=== PATIENT | female | born 1965 | race Caucasian/White ===

== ENCOUNTER → 2017-06-14 17:40 | Outpatient (CLI) | payer OTHER, SELFPAY ==
[2017-06-14 20:09] LABS: M R Staph aureus DNA By PCR Negative (Negative); Probe Check PASS; Specimen Processing Control PASS; Staph aureus DNA By PCR POSITIVE (Negative)
== END ==
PROVIDERS: Family Provider Family Medicine; PCP Family Medicine; Visit Provider Podiatrist
DX: L03.90 Cellulitis, unspecified (principal); L97.512 Non-pressure chronic ulcer of other part of right foot with fat layer exposed
CPT/HCPCS: 87640

== ENCOUNTER → 2017-08-07 22:22 | Outpatient (CLI) | payer OTHER, SELFPAY | PROVIDERS: Family Provider Family Medicine; PCP Family Medicine; Visit Provider Family Medicine | DX: G47.00 Insomnia, unspecified (principal) | CPT/HCPCS: 95810 ==

== ENCOUNTER 2018-04-25 12:15 | Outpatient (RCR) | payer OTHER, SELFPAY ==
--- NOTE | 2017-09-30 13:29 | DT_ITS ---
This patient was seen during an EMR downtime September 30, 2017 - October 07, 2017. This patient may have a combination of paper and electronic documentation or all paper documentation. All documentation is viewable within the e-chart portion of [employer] for each patient visit.
--- NOTE | 2017-12-27 13:08 | MASS.EVAL ---
Massage Therapy Evaluation: Initial Evaluation Date: 09/30/2017 SUBJECTIVE: Karolina is a 52 year old female who was referred to the [facility] for a massotherapy evaluation by Dr. Gomez with the diagnosis of Shoulder and neck pain. Karolina presents today with the symptoms of neck and shoulder pain and tension. she reports having a medical history of chronic neck pain going into her shoulders. She reports having minimal limitations during her daily activities but does suffer from stiffness. OBJECTIVE: Upon observation Ada has poor posture with his head forward and shoulders forward from the neutral position in sitting and standing. After examination and palpation I found Karolina to have very high muscle tension with tenderness and myofascial restrictions in her sub occipitals, levator scapulae, trapezius, rhomboids, scalenes, and thoracic paraspinals. Her shoulders were tight and tender in the trapezius, supra and infraspinatus muscles The first treatment consisted of a one hour massage to her upper body with myofascial release, muscle stripping, trigger point compression techniques, and cervical manual traction. ASSESSMENT: I feel that Karolina is a good candidate for massotherapy at this time. She had a favorable response to the first treatment with reduction in her muscle aches, pain and tension. She also had improvement in her cervical flexibility and right hip flexibility. PLAN: The plan of care was reviewed with the patient. The patient is to be seen on as needed basis for a total of ten sessions with the recommendation of once every four weeks for a one hour treatment. Ada Zamora LMT
--- NOTE | 2018-04-25 16:04 | MASS.DISCH ---
Massage Therapy Discharge Summary: Discharge Date: 04/25/2018 Karolina was seen for a massotherapy evaluation on 09/30/2017 with the diagnosis of shoulder pain. She was treated with seven sessions of massage therapy consisting of deep pressure soft tissue techniques, myofascial release and trigger point compression to her cervical, thoracic and lower back. Karolina responded well to the therapy by reporting decreased tension and pain throughout her head, neck, shoulders, and lower back. Her goals for therapy were met throughout the treatment sessions. At this time this patient is being discharged from our care at [facility] facility.
== END 2018-04-25 19:00 | disposition home or self-care (01) ==
LOC: MASS 12:15
PROVIDERS: Family Provider Family Medicine; PCP Family Medicine; Visit Provider Family Medicine
DX: M25.569 Pain in unspecified knee (principal)
CPT/HCPCS: 97124

== ENCOUNTER → 2018-04-28 14:30 | Outpatient (CLI) | payer OTHER, SELFPAY ==
[2018-04-27 13:51] VITALS: BMI 22.3
== END ==
PROVIDERS: Family Provider Family Medicine; PCP Family Medicine; Referring Provider Physician Assistant; Visit Provider Physician Assistant
DX: J02.9 Acute pharyngitis, unspecified (principal)
CPT/HCPCS: 87077; 87081

== ENCOUNTER → 2018-06-16 12:56 | Outpatient (CLI) | payer OTHER, SELFPAY ==
[2018-04-27 13:51] VITALS: BMI 22.3
--- NOTE | 2018-06-16 13:00 | BI_ITS ---
MAMMOGRAPHY - BILATERAL SCREENING REASON FOR EXAM: Female, 53 years old. Routine annual screening examination. PERTINENT HISTORY: Aunt with breast cancer. TECHNIQUE: Digital bilateral breast krystle (3D mammographic acquisition) in the CC and MLO projections. 2-D mediolateral oblique (MLO) and craniocaudad (CC) views of both breasts were obtained. CAD: Full Field Digital Mammography with Computer Added Detection was performed. COMPARISON: Comparison is made with prior study dated November 11, 2017 and August 30, 2015. FINDINGS: Breast Composition: The breasts are heterogeneously dense, which may obscure small masses. There are no dominant masses or suspicious calcifications. Stable 1.1 cm calcified nodule in the deep midportion of the right breast. Stable 7 mm well-defined nodule in the retroareolar region of the left breast. Prior sonogram demonstrating this to be a cyst. No other significant abnormalities are identified. There has been no significant change since the prior study. BI/SCREENING MAMM (CAD), BILAT IMPRESSION: Stable bilateral screening mammogram. Yearly follow-up mammogram recommended. (A) ASSESSMENT CATEGORY: BIRADS Category 2: Benign. A letter regarding these results will be sent to the patient by the facility within 30 days. Approximately 10% of breast cancers are not detected by mammography. A normal mammogram should not delay biopsy of a clinically suspicious abnormality. [id number] Electronically Signed: Sony Arvizu MD at 14:30 EST , Service support ,
== END ==
PROVIDERS: Family Provider Family Medicine; PCP Family Medicine; Referring Provider Obstetrics & Gynecology; Visit Provider Obstetrics & Gynecology
DX: Z12.31 Encounter for screening mammogram for malignant neoplasm of breast (principal)
CPT/HCPCS: 77063; 77067

== ENCOUNTER → 2018-07-03 15:54 | Outpatient (CLI) | payer OTHER, SELFPAY ==
[2018-04-27 13:51] VITALS: BMI 22.3
[2018-07-03 17:53] LABS: Erythrocyte Sedimentation Rate 6 mm/hr (0-30)
[2018-07-03 17:58] LABS: CRP, High Sensitivity Cardiac 0.61 mg/L; Rheumatoid Factor < 10.0 IU/mL (<15)
[2018-07-08 11:30] LABS: ANTINUCLEAR ANTIBODIES DIRECT Negative (Negative)
== END ==
PROVIDERS: Family Provider Family Medicine; PCP Family Medicine; Referring Provider Family Medicine; Visit Provider Family Medicine
DX: M25.552 Pain in left hip (principal)
CPT/HCPCS: 36415; 85652; 86038; 86141; 86431

== ENCOUNTER → 2018-09-25 09:38 | Outpatient (CLI) | payer OTHER, SELFPAY ==
[2018-09-25 09:36] VITALS: BMI 22.3
--- NOTE | 2018-09-25 09:39 | RAD_ITS ---
STUDY: X-RAY - RIGHT HAND, ATTENTION THUMB REASON FOR EXAM: Trigger thumb. TECHNIQUE: 3 view(s) of the finger were obtained. COMPARISON: None. FINDINGS: Normal first carpometacarpal joint. Normal metacarpal. Normal metacarpophalangeal joint. Normal proximal phalanx. Normal distal phalanx. There are small marginal osteophytes without joint space narrowing of the interphalangeal joint. RAD/Finger(s) Min 2 Views IMPRESSION: Small marginal osteophytes of the interphalangeal joint. Electronically Signed: Winston Hendrickson MD at 15:48 EDT Tel , Service support ,
== END ==
PROVIDERS: Family Provider Family Medicine; PCP Family Medicine; Referring Provider Orthopaedic Surgery; Visit Provider Orthopaedic Surgery
DX: M79.644 Pain in right finger(s) (principal)
CPT/HCPCS: 73140

== ENCOUNTER 2018-10-22 09:49 | Day surgery (SDC) | payer OTHER, SELFPAY ==
[2018-09-25 09:36] VITALS: BMI 22.3
--- NOTE | 2018-09-25 10:11 | HP_ITS ---
Input H&P no changes I have re-examined the patient. There are no clinical changes since date of exam. Intake Vital Signs 09/25/18 Body Mass Index (BMI) 22.3 09/25/18 Height 5 ft 5 in 09/25/18 Weight: 137 lb 09/25/18 Body Mass Index (BMI) 22.8 Intake Visit Reasons: RIGHT HAND Chief Complaint: Sore throat Is patient in pain?: Yes Pain scale (1-10): 2 Allergies hydrocodone [From Vicodin] Adverse Reaction (Verified 04/27/18 13:52) Nausea Medications Sertraline HCl [Zoloft] 50 mg PO BID 03/30/14 [History Confirmed 04/27/18] Pitavastatin Calcium [Livalo] 2 mg PO QHS 05/15/16 [History Confirmed 04/27/18] Apixaban [Eliquis] 5 mg PO BID 07/12/16 [History Confirmed 04/27/18] Cetirizine HCl [Zyrtec] 10 mg PO DAILY PRN PRN 07/12/16 [History Confirmed 04/27/18] PFSH Medical History Anemia (Acute) Social History Smoking Status: Never smoker alcohol intake: never HPI RIGHT HAND: Surgical H&P: Yes Details: Parts of this documentation were recorded by a scribe, this documentation accurately reflects the service provided and the decisions made by me, Leigha Edward, 09/25/18 [id number]. ARYAN AHN is a 53 year old F new patient here today for right thumb trigger thumb. Patient state she has been having the pain for about 3 months. Denies numbness, tingling or other associated symptoms. States she has a constant dull ache at the base of her thumb. Has constant clicking of her thumb with movement. Has limited ROM of her thumb. Denies any x-rays of her thumb. Has had 1 steroid injection of her thumb which was not effective. Had the injection in june. Denies any PT. Does not recall any injury. ROS Const Reports system reviewed and no additional complaints, except as docu Eyes Reports system reviewed and no additional complaints, except as docu ENT Reports system reviewed and no additional complaints, except as docu Card Reports system reviewed and no additional complaints, except as docu Resp Reports system reviewed and no additional complaints, except as docu GI Reports system reviewed and no additional complaints, except as docu Musc Reports as per HPI Skin/Breast Reports system reviewed and no additional complaints, except as docu Neuro Yes system reviewed and no additional complaints, except as docu Psych Reports system reviewed and no additional complaints, except as docu Endo Reports system reviewed and no additional complaints, except as docu Fito/Lymph Reports system reviewed and no additional complaints, except as docu Aller/Immun Reports system reviewed and no additional complaints, except as docu Assessment & Plan Problems 1. Primary osteoarthritis of first carpometacarpal joint of right hand M18.11 2. Trigger finger of right thumb M65.311 Plan Obtained X-rays of patient's right thumb. Personally reviewed x-rays. There is no obvious fracture, dislocation, or lucency noted. Educated that she does have mild CMC joint OA. Educated that she does have trigger finger of her right thumb. Educated that options include injection every 3-4 months or splinting at night or surgery. Surgery would include releasing of the tendon. Reviewed the pre-operative plans with the patient. Risks and benefits of the procedure were fully explained, including but not limited to infection, neurovascular injury, continued pain, arthritis, stiffness, need for further surgery, re-injury, DVT, PE, general risks of anesthesia, and loss of limb or life. The patient understands all the risks and does wish to proceed with written consent. Educated that she will never have full ROM of her joint d/t the OA. Patient educated that the surgery is an elective surgery and is not required. Patient does wish to proceed with surgery. Patient would like her surgery ti be on October 15. Follow up 2 weeks post op or sooner if pain, swelling, numbness or associated symptoms, or concerns develop. All questions answered. Patient in agreement of plan. Orders Orders: Finger(s) Min 2 Views Today M79.644 Coding Level of Care Code Off vis,est,level 4 Diagnoses Primary osteoarthritis of first carpometacarpal joint of right hand M18.11 ??Osteoarthritis type: primary Trigger finger of right thumb M65.311 09/25/18 1034 <Electronically signed by Leigha vega DO> Date _ Leigha Edward DO
[2018-10-22] VITALS (8 sets, daily range): BP systolic 117–147; BP diastolic 73–101; PULSE 63–76; RESP 16; TEMP 36.4–36.7; O2SAT 94–100; BMI 23.6
[2018-10-22] MEDS: Cefazolin 2 GM in 0.9% Normal Saline 100 ML IV (13:45)
--- NOTE | 2018-10-22 13:51 | DCINST_ITS ---
Discharge Diet: No Restrictions - leave dressing in place, keep clean/dry and intact, if get incision dirty may change, follow up in 2 weeks for removal of sutures, call with concerns Discharge Activity: May Not Drive May shower in (days): 1 Ice area for (Minutes): 20 - Every hour while awake. Weight Bearing Status: Weight bearing as tolerated Keep extremity elevated above heart level: Operative Extremity Call your doctor if your incision/area has: Continuous Slow Oozing, Sudden Increased Bleeding, Increased Pain/ Swelling, Increased Redness, Foul Smelling Discharge Call your doctor if you observe: Fever of 101 or Higher, Coldness, Increased Pain, Numbness or Tingling, Change in Color, Calf discomfort Allergies/Adverse Reactions: Allergies hydrocodone [From Vicodin] Adverse Reaction (Verified 10/22/18 10:05) Nausea Medications to take at Discharge Sertraline HCl [Zoloft] 50 mg PO BID 03/30/14 Pitavastatin Calcium [Livalo] 2 mg PO QHS 05/15/16 Apixaban [Eliquis] 5 mg PO BID 07/12/16 Cetirizine HCl [Zyrtec] 10 mg PO DAILY PRN PRN 07/12/16 Omeprazole [Prilosec] 20 mg PO DAILY 10/15/18 Primary Care Physician: Jimbo Dash MD [Primary Care Provider] - Test Results: Test results from this visit will be discussed in further detail at your follow- up appointment, if applicable. Please Follow Up With: Leigha Edward, - [phone]
--- NOTE | 2018-10-22 13:52 | PCM.OPRPT ---
Report of Operation Date of Procedure: 10/22/18 Pre-Operative Diagnosis: right thumb trigger finger Post-Operative Diagnosis: same Surgery/Procedure Performed:: right a1 vignesh release Type of Anesthesia:: General Anesthesiologist: Danny Lake Estimated Blood Loss (mL): none Fluids Replaced: 700 cc lr Description of Procedure: Preoperative note Patient is a 53-year-old female who has been seen for a locked and quite painful right trigger thumb. Patient has failed conservative treatment. Risks benefits and alternatives surgery discussed with patient. Risks including but not limited to blood loss, blood clot, infection, neurovascular injury, failure procedure, loss of life and loss of limb. Patient is aware would like proceed with right trigger finger thumb release A1 vignesh release. Operative note Patient seen and examined preoperative holding area. Right thumb was marked. Patient is brought to the operating room and placed supine on the operating table. Sign, anesthesia, antibiotics were administered. The right arm was prepped and draped in usual sterile fashion after [place] block was initiated. All neurovascular structures were protected at all times timeout was performed. We marked out our incision at the A1 vignesh of the right thumb. We was about a centimeter centimeter and a half for length. We used a 15 blade to cut the skin tenotomies to dissect down to the level of the A1 vignesh. All neurovascular structures were protected at all times. We then released the A1 vignesh both proximally and distally we then brought the tendons out of the incision and flex and extend at the DIP of the right thumb to ensure that we had no further locking which we did not have. We then irrigated the incision with copious amounts of sterile saline. Incision was closed with interrupted 4-0 nylon stitches. Tourniquet was deflated for total working time of 10 minutes. Patient tolerated procedure well there are no complications, patient transferred to recovery room in stable condition. Postoperative note Use hand as tolerated but keep incision clean and dry Discussed with family Follow-up in 2 weeks for dressing change and suture removal Hospital pharmacy has prescriptions This note was generated with [employer] software. It may contain incorrect words, spelling, and punctuation that were not noted in checking the note before signing.
[2018-10-22] MEDS: Mupirocin Ointment 22gm Tube 1 APPLIC (14:24)
--- NOTE | 2018-10-28 17:29 | PCM.HP.BLA ---
History and Physical Date of Admission: 10/22/18 [facility] Medical Records Department [address] [place] [address] History and Physical 09/25/18 1011 MR#: [id number] Acct: [id number] Name: ARYAN AHN Rep #: [id number] : 1965 53 From: Leigha Edward DO PCP: Jimbo Dash MD Status: [facility] Location: [place] [address] Input H&P no changes I have re-examined the patient. There are no clinical changes since date of exam. Intake Vital Signs 09/25/18 Body Mass Index (BMI) 22.3 09/25/18 Height 5 ft 5 in 09/25/18 Weight: 137 lb 09/25/18 Body Mass Index (BMI) 22.8 Intake Visit Reasons: RIGHT HAND Chief Complaint: Sore throat Is patient in pain?: Yes Pain scale (1-10): 2 Allergies hydrocodone [From Vicodin] Adverse Reaction (Verified 04/27/18 13:52) Nausea Medications Sertraline HCl [Zoloft] 50 mg PO BID 03/30/14 [History Confirmed 04/27/18] Pitavastatin Calcium [Livalo] 2 mg PO QHS 05/15/16 [History Confirmed 04/27/18] Apixaban [Eliquis] 5 mg PO BID 07/12/16 [History Confirmed 04/27/18] Cetirizine HCl [Zyrtec] 10 mg PO DAILY PRN PRN 07/12/16 [History Confirmed 04/27/18] PFSH Medical History Anemia (Acute) Social History Smoking Status : Never smoker alcohol intake : never 1
== END 2018-10-22 16:20 | disposition home or self-care (01) ==
LOC: SDC 09:50 → AC 09:50
PROVIDERS: Family Provider Family Medicine; PCP Family Medicine; Referring Provider Orthopaedic Surgery; Visit Provider Orthopaedic Surgery
PROC: (CPT 26055; principal; 2018-10-22 11:00)
DX: M65.311 Trigger thumb, right thumb (principal); M18.11 Unilateral primary osteoarthritis of first carpometacarpal joint, right hand; F41.9 Anxiety disorder, unspecified; Z79.01 Long term (current) use of anticoagulants; Z79.899 Other long term (current) drug therapy; Z88.5 Allergy status to narcotic agent; Z86.718 Personal history of other venous thrombosis and embolism; Z86.2 Personal history of diseases of the blood and blood-forming organs and certain disorders involving the immune mechanism
CPT/HCPCS: 26055; J7120; J2405

== ENCOUNTER 2018-11-27 16:59 | Outpatient (RCR) | payer OTHER, SELFPAY ==
[2018-11-10 13:10] VITALS: BMI 23.6
--- NOTE | 2018-11-27 17:38 | HP.PTEVAL ---
Patient's Visit Information ARYAN AHN is a 53 year old F referred to Physical Therapy by [facility] Wong with a diagnosis of L RC impingement.. Date of Evaluation: 11/27/18 Physical Therapist: Reji Guo, [place], OCS, CSCS - Visit Plan Duration: 1x in two weeks Plan: Pt to do home GTB ext rotation and ext rotation door stretch daily and f/u in two weeks or prior if pain returns. She has no pain or dysfunction lately. - Subjective Findings: L shoulder was bothering me. Had a steroid injection mid October and has been feeling good since. It had hurt since August when she fell and tried to catch self with L arm. L shoulder hurt then with movement adn ached all the time. No other treatments. No x ray or MRI. Sleep is good now but was up alot prior. 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 This was increasing her pain with lifting charts. Is L handed. Hobbies include cleaning up after hogs and chickens and shovelling and raking. It hurt. It is currently not a problem. All dressing and ADLs are good right now. No pain since couple days after injection. - Objective Good posture adn no pain or asymmetrical tenderness today. Full c/s AROM without pain or deficit. Full B UE shoulder adn scap/UE AROM without pain except ext rotation L shoulde rin 90 abduction which is slightly tighter L at 90 ext rotation vs 120 on R. reflexes bi and tri 2/3. Sensation UE WNL to gross light touch. Strength is symmetrical and 4+/5 except L ext rotation 4/5, no pain. - sulcus. - ext rotation lag test. - HK, - impingement. Fucntionally normal today. - Goals Goal 1:: Shoulder 100% back to normal ext rotation strength adn ROM at 90 abd. Goal Time Frame: 2-4 Weeks - Rehabilitation Potential Physical Therapy Diagnosis: L RC impingement much better since injection. Rehabilitation Potential: Excellent - Anticipated Interventions Patient/Client Instruction: Educate patient on: Condition, Plan of Care For the Purpose of:: To increase ROM Therapeutic Exercise to Include: Strength training, Passive ROM For the Purpose of:: To increase ROM, To improve muscle performance and motor function Thank you for the opportunity to evaluate your patient. For Medicare and Medicare HMO plans, please review the plan of care and approve it. It will need to be FAXED BACK to us at [phone] for Medicare purposes. For Medicare only, by signing this I certify the plan of care. Please let me know if there are questions or concerns regarding this plan of care. Physician Signature: Date:
--- NOTE | 2019-02-05 15:25 | HP.PT.NRP ---
HP - Discharge Summary (1) - Patient Information ARYAN AHN was seen in my office for initial evaluation on 11/27/18. The following Plan of Care was established for this patient: Initial Duration: 1x in two weeks - Anticipated Interventions Patient/Client Instruction: Educate patient on: Condition, Plan of Care For the Purpose of:: To increase ROM Therapeutic Exercise to Include: Strength training, Passive ROM For the Purpose of:: To increase ROM, To improve muscle performance and motor function This patient was last seen in our office 11/27/18. Pertinent comments regarding their Physical therapy will appear below: Pt seen for evaluation adn instructed in HEP. She was to f/u two weeks later but neglected to schedule or attend. At this point, it has been over two months and I will discontinue due to nonattendance. At this point I will be discontinuing this patient from physical therapy. I would be happy to see this patient again in the future if found appropriate by the physician. Thank you! Reji Guo, DPT, OCS, CSCS
== END 2018-11-27 19:00 | disposition home or self-care (01) ==
LOC: PT 16:59
PROVIDERS: Family Provider Family Medicine; PCP Family Medicine; Referring Provider Physician Assistant; Visit Provider Physician Assistant
DX: M75.42 Impingement syndrome of left shoulder (principal)
CPT/HCPCS: 97161

== ENCOUNTER → 2019-01-02 15:23 | Outpatient (CLI) | payer OTHER, SELFPAY ==
[2018-12-22 14:36] VITALS: BMI 23.6
--- NOTE | 2019-01-02 15:25 | MRI_ITS ---
HISTORY:pain after fall, decreased rom x 4 mon MRI EXAMINATION OF THELeft SHOULDER COMPARISON: None TECHNIQUE: Coronal fat-suppressed proton-density fat-suppressed T2 sagittal T2 and axial fat-suppressed proton density and T2 # of images including paperwork:131 FINDINGS: Bones: There are cystic changes seen within the lesser tuberosity of the humeral head as well as the greater tuberosity. This area is subjacent to the groove. Rotator cuff: There is a full-thickness tear involving the supraspinatus tendon with retraction of the tendon to proximally the 12:00 incision. There is also grade 1 muscular tenderness injury of the supraspinatus muscle. Partial tear involving the infraspinatus muscle. This compatible with a grade 1-2 injury of the musculotendinous junction seen on coronal image 5 series 7. High-grade tear of the anterior fibers of the supraspinatus tendon. I suspect a portion of the tendon is retracted seen on axial image 24 series 5. The teres minor tendon is intact. The subscapularis tendon is intact Coracoacromial arch and Acromioclavicular joint: The acromion demonstrates Bigliani Type 2 morphology. The acromiohumeral distance is maintained. The coracoacromial ligament is intact. Is thickened at the acromion. Mild acromial clavicular arthropathy. There is fluid seen within the subacromial subdeltoid bursa. Biceps tendon: The extraarticular tendon fluid surrounds extra-articular bicipital tendon and there is abnormal signal within the tendon suggesting a partial tear. The tendon appears subluxed medially again with partial tear of the intra-articular tendon.. Glenohumeral joint and labrum: There is no significant joint effusion. The anterior and posterior bands of the inferior glenohumeral luminary intact. I do not see a labral tear. No masses are seen within the suprascapular notch or the spinoglenoid notch. The quadrilateral space is unremarkable. CONCLUSION: Full-thickness tear of the supraspinatus tendon with retraction to approximately the 12 o'clock position. No evidence of muscle atrophy. There is a high-grade tear of the infraspinatus tendon this is most marked at the inferior fibers with retraction of the portion of the fibers. There is also grade 1-2 injury at the musculotendinous junction of the infraspinatus and grade 1 injury at the musculotendinous junction of the supraspinatus Partial tear of the bicipital tendon. Medial subluxation. The intra-articular tendon is thickened and partially torn. I do not see a labral tear. Mild acromial clavicular arthropathy. There is fluid within the subacromial subdeltoid bursa. at 1904 Reported and signed by: Evette Cronin DO Electronically Signed: Evette Cronin DO at 19:03 EDT Tel , Service support , MRI/Upper Ext Joint Only(Routine)
== END ==
PROVIDERS: Family Provider Family Medicine; PCP Family Medicine; Referring Provider Physician Assistant; Visit Provider Physician Assistant
DX: M75.22 Bicipital tendinitis, left shoulder (principal); M75.42 Impingement syndrome of left shoulder
CPT/HCPCS: 73221

== ENCOUNTER 2019-02-04 07:32 | Day surgery (SDC) | payer OTHER, SELFPAY ==
[2019-01-08 09:25] VITALS: BMI 23.6
--- NOTE | 2019-01-30 10:34 | EKG12_ITS ---
Test Reason : PREOP Blood Pressure : / mmHG Vent. Rate : 065 BPM Atrial Rate : 065 BPM P-R Int : 152 ms QRS Dur : 080 ms QT Int : 390 ms P-R-T Axes : 056 012 047 degrees QTc Int : 405 ms Normal sinus rhythm Normal ECG Confirmed by ALBERT MITTAL ([id number]), digital editor GOVIND TAYLOR ([id number]) on 02/03/2019 1:00:46 PM Referred By: Leigha Edward Confirmed By:ALBERT MITTAL
[2019-02-04] VITALS (9 sets, daily range): BP systolic 115–144; BP diastolic 70–93; PULSE 70–107; RESP 16; TEMP 36.4–37; O2SAT 92–99; BMI 24.1
--- NOTE | 2019-02-04 07:48 | PCM.HP.BLA ---
History and Physical I have re-examined the patient. There are no clinical changes since date of exam. Intake Vital Signs 01/08/19 Body Mass Index (BMI) 23.6 Intake Visit Reasons: LEFT SHOULDER Is patient in pain?: Yes Allergies hydrocodone [From Vicodin] Adverse Reaction (Verified 10/22/18 10:05) Nausea PFS Medical History (Updated 10/22/18 @ 13:52 by Leigha Edward DO) Anemia (Acute) Social History (Updated 01/08/19 @ 16:07 by KINGS Wong) Smoking Status: Never smoker alcohol intake: never HPI LEFT SHOULDER: Details: Parts of this documentation were recorded by a scribe, this documentation accurately reflects the service provided and the decisions made by , KINGS Wong 01/08/19 09. ARYAN AHN is a 53 year old F here today for left shoulder followup. Patient notes that she continues to have shoulder pain. She continues to have limited range of motion. Her pain is over her entire shoulder. She had an MRI which is here for review. Denies numbness, tingling or other associated symptoms. ROS Const Reports system reviewed and no additional complaints, except as docu Eyes Reports system reviewed and no additional complaints, except as docu ENT Reports system reviewed and no additional complaints, except as docu Card Reports system reviewed and no additional complaints, except as docu Resp Reports system reviewed and no additional complaints, except as docu GI Reports system reviewed and no additional complaints, except as docu Musc Reports joint pain, Reports stiffness Skin/Breast Reports system reviewed and no additional complaints, except as docu Neuro Yes system reviewed and no additional complaints, except as docu Psych Reports system reviewed and no additional complaints, except as docu Endo Reports system reviewed and no additional complaints, except as docu Fito/Lymph Reports system reviewed and no additional complaints, except as docu Aller/Immun Reports system reviewed and no additional complaints, except as docu Ortho Exam Left Shoulder Skin/Wound: No erythema, No swelling no r/r/w no abd pain no audible bruits Assessment & Plan Problems 1. Left shoulder pain, unspecified chronicity M25.512 2. Injury of left shoulder, subsequent encounter S49.92XD 3. Tendinopathy of left biceps tendon M67.922 4. Traumatic complete tear of left rotator cuff, subsequent encounter S46.012D Plan Patient is here to review MRI of the left shoulder that continues to cause pains and give her limited ROM. Images as well as impression were reviewed with myself as well as Dr. Edward. We discussed that at this time surgical intervention is likely the next step in treatment as injections and home exercises have not yielded any relief from her symptoms. We discussed risks and benefits of this and consent was signed in office. We did discuss surgical protocol and that she will be contacted by surgery department as well as anesthesia for preanesthesia testing. She will not know the time of her surgery until the day before. We will notify her once the actual day is set. Patient was given a antibacterial soap to be used the night before and morning of the procedure from the armpit down to the fingertips. Patient will be in an arm sling with an abduction pillow for approximately 6 weeks. She is to think about whether she would like a biceps tenodesis versus tenotomy pending on how much she wants to be to use her elbow/biceps postop. She can notify the office if she has any other concerns or complaints in the meantime. This note was generated with [employer] dictation software. It may contain incorrect words, spelling, and punctuation that were not noted in checking the note before signing. Coding Level of Care Code Off vis,est,level 2 Diagnoses Left shoulder pain, unspecified chronicity M25.512 ??Chronicity: unspecified Injury of left shoulder, subsequent encounter S49.92XD ??Encounter type: subsequent encounter Tendinopathy of left biceps tendon M67.922 Traumatic complete tear of left rotator cuff, subsequent encounter S46.012D ??Rotator cuff tear extent: complete ??Rotator cuff tear trauma status: traumatic ??Encounter type: subsequent encounter
[2019-02-04] MEDS: Lactated Ringers 1,000 ML 100 ML IV (08:15)
--- NOTE | 2019-02-04 09:05 | PCM.DC.ORTHO ---
Discharge Diet: No Restrictions - sling at all times may move elbow and hand as tolerated in sling, follow up on saturday for dressing change and sling adjustment, may get incision wet after saturday's visit, call with concerns, Discharge Activity: May Not Drive May shower in (days): 1 Ice area for (Minutes): 20 - Every hour while awake. Weight Bearing Status: Weight bearing as tolerated Keep extremity elevated above heart level: Operative Extremity Call your doctor if your incision/area has: Continuous Slow Oozing, Sudden Increased Bleeding, Increased Pain/ Swelling, Increased Redness, Foul Smelling Discharge Call your doctor if you observe: Fever of 101 or Higher, Coldness, Increased Pain, Numbness or Tingling, Change in Color, Calf discomfort Allergies/Adverse Reactions: Allergies hydrocodone [From Vicodin] Adverse Reaction (Verified 02/04/19 07:49) Nausea Medications to take at Discharge Sertraline HCl [Zoloft] 50 mg PO BID 03/30/14 Pitavastatin Calcium [Livalo] 2 mg PO QHS 05/15/16 Apixaban [Eliquis] 5 mg PO BID 07/12/16 Cetirizine HCl [Zyrtec] 10 mg PO DAILY PRN PRN 07/12/16 Omeprazole [Prilosec] 20 mg PO DAILY 10/15/18 Hydrocodone Bitart/Apap 5-325 [Sheldon 5MG-325MG] 1 - 2 tab PO Q6H PRN PRN 5 Days #40 tab 02/04/19 The following prescriptions were given: Hydrocodone Bitart/Apap 5-325 [Sheldon 5MG-325MG] 1 - 2 tab PO Q6H PRN PRN 5 Days #40 tab PRN Reason: Pain Transmission Status: Received by [facility] Primary Care Physician: Jimbo Dash MD [Primary Care Provider] - Test Results: Test results from this visit will be discussed in further detail at your follow-up appointment, if applicable. Please Follow Up With: Leigha Edward, DO - [phone]
--- NOTE | 2019-02-04 09:07 | OP.PCM_ITS ---
Report of Operation Date of Procedure: 02/04/19 Pre-Operative Diagnosis: left rotator cuff tear, biceps tendon tear at labrum insertion, subacromial impingment syndrome Post-Operative Diagnosis: same Surgery/Procedure Performed:: sals, rc repair, sad/acromioplasty, biceps tenotomy foundation coordinator: Eduin Chacko Type of Anesthesia:: Block,Regional, General Anesthesiologist: Herrera Mccarthy Estimated Blood Loss (mL): none Fluids Replaced: 1000ml lr Description of Procedure: Preop Patient is a 53-year-old female who is had left shoulder pain for quite some time. Patient failed conservative treatment MRI confirms a rotator cuff tear as well as a biceps tendon tear at the labral junction. Patient would like to proceed with left shoulder arthroscopy repair as indicated. Risk benefits and alternatives surgery discussed with patient. Risks including but not limited to blood loss, blood clot, infection, neurovascular injury, failure procedure, loss of life and loss of limb. Patient is aware like proceed with left shoulder arthroscopy repair as indicated. Operative note Patient seen and examined preop holding area. Left arm was marked. Patient brought to the operating room placed supine on the operating table. Sign, anesthesia, antibiotics were administered. Patient was placed in beachchair positioning usp through we did recheck her blood pressure which was stable throughout. All bony prominences well-padded SCDs placed on her bilateral lower extremity. We then prepped and draped the left arm in standard technique. We marked out her bony landmarks for portal placement. The left the posterior joint was then insufflated with 60 cc of normal saline we had good return from the 18-gauge spinal needle that we used. Timeout was performed. We then used an 11 blade to make our posterior portal. We began our diagnostic arthroscopy. The glenohumeral joint was intact she had obvious tearing of the biceps tendon at its insertion onto the labrum is partially torn. We created an anterior portal under direct visualization. We were able then probed the unstable biceps tendon tear and then resected it with a combination of a basket and ablator wand. We then visualized the rotator cuff tear which was the entire supraspinatus was torn off of the leading edge and retracted. We gently shave t he undersurface of the rotator cuff to stable rim. We then moved to the subacromial space with her stick with our scope. Created a lateral portal under direct visualization. We then were able to visualize the thickened bursa which was resected we also coplanar the anterior aspect of the lateral anterior acromial edge. We use a combination of a bur ablator and shaver to resect the bur site. We then gently debrided back the footprint of the for the insertion of our rotator cuff tear. We used a tendon grasper to pull the tendon to see which the best forces in order to cover the footprint. The patient had a U- shaped component with a split between the supraspinatus and infraspinatus. We used a elevator to release the tendon on the undersurface and this did work in order to free it up so that we had an tensionless repair. We first placed 3 marginal convergence stitches at the border again between the supraspinatus and infraspinatus. We then placed a speed bridge configuration Arthrex in standard technique. Please note that we prior to placing the anchors we placed a tag stitch just to the leading edge of the supraspinatus by doing that that allowed us to bring the tendon anteriorly and facilitate with our tensionless repair. The tendon itself and was not great quality however did hold the sutures. We then placed our lateral row please note that we used the most of the tag stitches we used a fiber length and the most anterior superior and supraspinatus and placed in our lateral row as well. We had great coverage that was again a tensionless repair. We irrigated the shoulder with copious amounts of sterile saline. We closed the portals with 4-0 nylon stitches. Sterile dressings were applied. Patient tolerated procedure well no complication transferred recovery room in stable condition. Please note that preoperatively patient did have a regional interscalene block. Next Postoperative note Next Patient neuro intact postoperative Pharmacy has prescriptions as Call with increased pain numbness tingling or further issues arise Follow-up on Saturday with Rocky for dressing change and brace adjustment [employer] disclaimer This note was generated with [employer] dictation software. It may contain incorrect words, spelling, and punctuation that were not noted in checking the note before signing. Grafts/Implants Used: arthrex speedbridge
[2019-02-04] MEDS: Cefazolin 2 GM in 0.9% Normal Saline 100 ML IV (09:09)
[2019-02-04] MEDS: Epinephrine (1 mg/ml) 1 MG/ML VIAL (11:30)
[2019-02-04] MEDS: Mupirocin Ointment 22gm Tube 1 APPLIC (12:16)
[2019-02-04] MEDS: HYDROcodone Bitartrate/Apap 5/325 Tablet PO (13:56)
== END 2019-02-04 15:55 | disposition home or self-care (01) ==
LOC: SDC 07:33 → AC 07:33
PROVIDERS: Family Provider Family Medicine; PCP Family Medicine; Referring Provider Orthopaedic Surgery; Visit Provider Orthopaedic Surgery
PROC: (CPT 29827; principal; 2019-02-04 09:15)
DX: S46.012A Strain of muscle(s) and tendon(s) of the rotator cuff of left shoulder, initial encounter (principal); S46.212A Strain of muscle, fascia and tendon of other parts of biceps, left arm, initial encounter; M67.922 Unspecified disorder of synovium and tendon, left upper arm; M75.42 Impingement syndrome of left shoulder; X58.XXXA Exposure to other specified factors, initial encounter; Y93.9 Activity, unspecified; Y92.9 Unspecified place or not applicable; Y99.9 Unspecified external cause status; G25.81 Restless legs syndrome; F41.9 Anxiety disorder, unspecified; Z79.01 Long term (current) use of anticoagulants; Z79.899 Other long term (current) drug therapy; Z88.5 Allergy status to narcotic agent; Z86.2 Personal history of diseases of the blood and blood-forming organs and certain disorders involving the immune mechanism
CPT/HCPCS: 29826; 29827; 29828; 93005; J7120; J2405

== ENCOUNTER 2019-02-04 20:44 | Emergency (ER) | payer OTHER, SELFPAY ==
[2019-02-04 08:02] VITALS: BMI 24.1
[2019-02-04 20:45] VITALS: BP 142/87; PULSE 128; RESP 22; TEMP 37.1; O2SAT 92; BMI 20.7
--- NOTE | 2019-02-04 21:01 | ED.VIS.GEN ---
History of Present Illness Chief Complaint: Complaint Detail of Chief Complaint: Unable to void Informant: Patient Onset: Today Narrative: Patient had left rotator cuff surgery this morning at the hospital. Since going home she has not been able to urinate. She apparently had trouble after a previous surgery with anesthesia. She has had a prior bladder sling as well as a hysterectomy. Past Medical History - Allergies and Home Meds Allergies/Adverse Reactions: Allergies No Known Allergies Allergy (Verified 02/04/19 21:06) Primary Care Physician: Jimbo Dash MD [Primary Care Provider] - Doctors: Dr. Edward, Dr. Luis Prior records reviewed: Yes Past Medical History: - - Reviewed Surgical History: no surgical history Lives: Spouse/ Significant Other Smoking Status: Never smoker Review of Systems General: Denies: Chills, Fever Eyes: Denies: Visual changes - bilaterally ENT: Denies: Bilateral ear pain Cardiovascular: Denies: Chest pain Respiratory: Denies: Dyspnea Gastrointestinal: Reports: Abdominal pain Musculoskeletal: Reports: Extremity Pain Skin: Denies: Rash Neurological: Denies: Headache Physical Exam Vital Signs/Narrative: Vital Signs Temp Pulse Resp BP Pulse Ox 02/04/19 20:45 98.7 F 128 H 22 H 142/87 H 92 Inital Vital Signs reviewed: Yes General: Well nourished, Well developed ENT: Moist mucous membranes Neck: Supple Cardiovascular: Regular rate, Regular rhythm Respiratory: No distress, CTA bilaterally Abdomen: Soft, Tender - Suprapubic tenderness. Extremities: - - Left upper extremity in sling with surgical dressing in place. Neurological: Alert, Oriented x3 Psychological: Normal affect Diagnostic/Tx/Re-eval - Medical Decision Making Munoz catheter was placed. She has had over 2 L of urine out. On repeat evaluation she feels significantly improved. She is not having any bladder spasm. She will be given a leg bag and discharged home. ED Disposition - Plan for ED Patient: Disposition: Home or Assisted Living Diagnosis: Urinary retention Instructions: URINARY RETENTION, Female Referrals: Jimbo Dash MD [Primary Care Provider] - Zander Luis MD [STAFF PHYSICIAN] - 3-5 Days
[2019-02-04 21:43] VITALS: BP 119/86; PULSE 89; RESP 16; O2SAT 97
--- NOTE | 2019-02-04 21:45 | ED.RN ---
REVIEWED D/C INSTRUCTIONS, FOLLOW UP CARE, PENA CATHETER CARE, AND S/S THAT WOULD WARRANT A RETURN TO THE ED WITH PT. PT VERBALIZED AN UNDERSTANDING AND DENIES FURTHER QUESTIONS FOR THIS RN. PT SKIN P/W/D, RESP EVEN AND UNLABORED, PT A&O X 3, NO DISTRESS NOTED. PT AMBULATED OUT OF ED, GAIT STEADY.
== END 2019-02-04 21:50 | disposition home or self-care (01) ==
LOC: ED 21:32
PROVIDERS: Emergency Provider Emergency Medicine; Family Provider Family Medicine; PCP Family Medicine
DX: R33.9 Retention of urine, unspecified (principal); Z79.01 Long term (current) use of anticoagulants; Z79.899 Other long term (current) drug therapy; Z98.890 Other specified postprocedural states; Z90.710 Acquired absence of both cervix and uterus
CPT/HCPCS: 51702; 99283

== ENCOUNTER → 2019-04-03 13:37 | Outpatient (CLI) | payer OTHER, SELFPAY ==
[2019-03-25 11:36] VITALS: BMI 20.7
--- NOTE | 2019-04-03 13:41 | CT_ITS ---
HISTORY: PT STATED MICRO HEMATURIA, HX OF UMBILICAL HERNIA WITH REPAIR, SANDRA, BSO, TOTAL HYST W VAGINAL SLING ADDITIONAL HISTORY: None provided. TECHNIQUE: CT images were obtained of the abdomen and pelvis without and with 100 ml of Isovue-370 IV contrast. Enteric contrast was not given. A radiation dose optimization technique was used for this scan. Number of images including paperwork: [id number] COMPARISON: 01/30/2016 CT abdomen. 04/09/2014 CT abdomen and pelvis FINDINGS: CHEST BASE: No consolidation or pleural effusion. Dependent atelectasis. LIVER: Hemangioma in the right lobe of the liver appears similar to 2016. GALLBLADDER: Cholecystectomy. BILE DUCTS: No significant biliary dilatation. SPLEEN: Unremarkable. PANCREAS: Unremarkable. ADRENAL GLANDS: Unremarkable. KIDNEYS/URETERS: Unremarkable. No radiopaque calculi or hydronephrosis. No focal renal lesion. BOWEL: No bowel obstruction. No significant bowel wall thickening. No localized inflammation. Moderate amount of colonic stool. APPENDIX: No evidence of appendicitis. FREE FLUID: No significant free fluid. FREE AIR: None. LYMPH NODES: No pathologic appearing adenopathy. PERITONEUM, RETROPERITONEUM AND MESENTERY: Otherwise unremarkable. VASCULATURE: Unremarkable as imaged. PELVIS: Small area of wall thickening with calcification in the anterior bladder, series 3 images on [id number]. Hysterectomy. ABDOMINAL WALL: Unremarkable. OSSEOUS AND SOFT TISSUE STRUCTURES: No acute skeletal findings. CT/CT Abd/Pelvis W/WO Contrast IMPRESSION: 1. Focal area of mild bladder wall thickening with associated calcification, nonspecific. Follow-up evaluation by urology recommended. 2. No acute abdominal abnormality. 3. Right lobe hepatic hemangioma appears similar. Individualized dose optimization techniques were used for this CT. at [id number] Reported and signed by: Valerie Wilcox MD Electronically Signed: Valerie Wilcox MD at 23:53 EST Tel , Service support ,
== END ==
PROVIDERS: Family Provider Family Medicine; PCP Family Medicine; Referring Provider Urology; Visit Provider Urology
DX: R31.9 Hematuria, unspecified (principal)
CPT/HCPCS: 74178; Q9967

== ENCOUNTER 2019-05-05 11:00 | Outpatient (RCR) | payer OTHER, SELFPAY ==
[2019-02-23 10:11] VITALS: BMI 20.7
--- NOTE | 2019-03-03 10:43 | HP.PTEVAL_ITS ---
Patient's Visit Information ARYAN AHN is a 53 year old F referred to Physical Therapy by Leigha Edward DO with a diagnosis of Left RTC Repair (02/04/19). Date of Evaluation: 03/03/19 Physical Therapist: Kim Mcmanus DPT - Visit Plan Frequency: 2x /Week Duration: 4 Weeks Plan: RTC Repair 02/04/19 Start Phase II: 03/18/19 Phase III: 04/15 - Subjective Findings: Left RTC repair by Dr. Sands Feb 04, 2019. This summer was taking a pool cover of and had an injury to her left arm. Since surgery- Worst: 09/05 Agg: getting dressed, Eases: ice or rest- wears the sling all the time. Best: 05/08- Describes the pain as dull achy. Pain is located around the whole shoulder- no radiating pain- no N/T in the hand. Sleep: disturbed- hard to get comfortable and takes her up. Sleeping in the recliner- plans to get back in bed soon. Left hand dominate. 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 PMhx/Meds: no changes since surgery. Plays with kids- normally pretty active and wants to do normal ADL?s. Wants to get back to all her normal activities. - Objective Posture: FH, RS, increased guarding of the left UE- sling with pillow. Palpation: tender along medial border of the scapula-upper trap to the tip of the acromion and into the bicipital groove. ROM: PROM: flexion: 120 degrees, Abd: 110 degrees ER: 40 degrees IR: to belly. AROM Elbow: WFL discomfort at end range extension. Wrist/Finger dexterity: WNL. Sensation: WFL - Goals Goal 1:: Patient will be I with HEP and progression Goal Time Frame: 4-6 Weeks Goal 2:: Patient will demo full PROM of the left shoulder Goal Time Frame: 4-6 Weeks Goal 3:: Patient will demo full AROM of the left shoulder (as protocol) Goal Time Frame: 4-6 Weeks Goal 4:: Patient will maintain proper posture t/o tx session to demo increased scap s/s Goal Time Frame: 4-6 Weeks Goal 5:: Patient will return to all normal ADL's as per protocol allows Goal Time Frame: 4-6 Weeks - Rehabilitation Potential Physical Therapy Diagnosis: Patient presents with hypomobility- she has decreaed ROM, strength and muscular endurance s/p RTC repair decreasing her ability to perform ADL's. Rehabilitation Potential: Good - Anticipated Interventions Patient/Client Instruction: Educate patient on: Benefits of Fitness Program Therapeutic Exercise to Include: Strength training, Endurance training, Coordination, Body mechanics, Postural training, Passive ROM, Active ROM, Scapular Strength/Stabilization Comment: As per protocol For the Purpose of:: To improve muscle performance and motor function TENS: Yes For the Purpose of:: To decrease pain Thank you for the opportunity to evaluate your patient. For Medicare and Medicare HMO plans, please review the plan of care and approve it. It will need to be FAXED BACK to us at [phone] for Medicare purposes. For Medicare only, by signing this I certify the plan of care. Please let me know if there are questions or concerns regarding this plan of care. Physician Signature: Da te:
--- NOTE | 2019-03-31 11:42 | HP.PTREVAL ---
Leigha Edward, , It has been my pleasure to treat ARYAN AHN over the last 8 visits for Left RTC Repair (02/04/19). Please see the progress note below for an update on the physical therapy plan of care! Subjective: Patient reports that the shoulder is a constant ache and tightness- in the anterior shoulder-and in the scapula- no pain running down the arm or into the neck. Worst: 4/10 Best: 2/10. Objective/Function: Posure: FH, RS- no guarding of the left UE. Palpation: tender along bicipital groove. AROM: elbow/wrist/hand: WNL Shoulder: Flexion: 160 degrees, Abduction: 90 degrees, IR: thumb to L2, ER: 50 degrees. Strength Isometric: 4/5 throughout Plan Plan: Contiue 2x a week for 4 weeks to progress through Goals Goal 1:: Patient will be I with HEP and progression Goal Time Frame: 4-6 Weeks Goal Progress: Progressing Goal 2:: Patient will demo full PROM of the left shoulder Goal Time Frame: 4-6 Weeks Goal Progress: Progressing Goal 3:: Patient will demo full AROM of the left shoulder (as protocol) Goal Time Frame: 4-6 Weeks Goal 4:: Patient will maintain proper posture t/o tx session to demo increased scap s/s Goal Time Frame: 4-6 Weeks Goal Progress: Progressing Goal 5:: Patient will return to all normal ADL's as per protocol allows Goal Time Frame: 4-6 Weeks Goal Progress: Progressing Anticipated Interventions Patient/Client Instruction: Educate patient on: Benefits of Fitness Program Therapeutic Exercise to Include: Strength training, Endurance training, Coordination, Body mechanics, Postural training, Passive ROM, Active ROM, Scapular Strength/Stabilization Comment: As per protocol For the Purpose of:: To improve muscle performance and motor function TENS: Yes For the Purpose of:: To decrease pain Please do not hesitate to contact me at [phone] by phone or if you have questions or concerns regarding this new plan of care! Sincerely, Kim Mcmanus DPT
--- NOTE | 2019-05-05 11:26 | HP.PTDCSUM_ITS ---
HP - PT D/C Summary It has been my pleasure to treat ARYAN AHN under orders from Leigha Edward DO, for the diagnosis of Left RTC Repair (02/04/19) for a total of 13 visit(s). Discharge Date: Please see the following information for a summary of their discharge status. - Subjective Subjective: Patient reports that the shoulder is getting better. Worst in last 48 hours 4/10 Best: 2/10. The pain is generalized in the shoulder and radiates to the elbow occasionally but not very often. Sleep: wakes her up when she is laying on it to long or when she is laying on her back- change positions and goes back to sleep. Back to work tonight. Saw MD prior to coming to PT and is happy with progress- good to go back in 3 months. Feels that she does not need to do therapy anymore and can do it at home. - Pain Left Shoulder Pain Intensity (Out of 10): 2 - Overall Improvement % Improvement: 100 - Objective Objective/Function: Posure: FH, RS- no guarding of the left UE- can correct with verbal cues Palpation: not tender to touch. AROM: elbow/wrist/hand: WNL Shoulder: WNL tightness at end range flexion and abduction Cervical: WNL Strength: elbow: 4+/5 Shoulder: flexion: 4/5, Abd: 4+/5, IR/ER: 4+/5, Extn: 4+/5. Beam Racker: WNL - Goals Goal 1:: Patient will be I with HEP and progression Goal Progress: Goal Met Goal 2:: Patient will demo full PROM of the left shoulder Goal Progress: Goal Met Goal 3:: Patient will demo full AROM of the left shoulder (as protocol) Goal Progress: Goal Met Goal 4:: Patient will maintain proper posture t/o tx session to demo increased scap s/s Goal Progress: Goal Met Goal 5:: Patient will return to all normal ADL's as per protocol allows Goal Progress: Goal Met - Plan Plan: Discharge to I HEP- gave OTB and GTB for Phase 3 strength - D/C Information If there are questions or concerns regarding this patient's physical therapy, please feel free to call me at [phone]. Thank you for the referral of this patient. Sincerely, Kim Mcmanus DPT
== END 2019-05-05 19:00 | disposition home or self-care (01) ==
LOC: PT 11:00
PROVIDERS: Family Provider Family Medicine; PCP Family Medicine; Referring Provider Orthopaedic Surgery; Visit Provider Orthopaedic Surgery
DX: Z98.890 Other specified postprocedural states (principal)
CPT/HCPCS: 97110; 97140; 97161; 97164

== ENCOUNTER 2019-05-12 10:44 | Day surgery (SDC) | payer OTHER, SELFPAY ==
[2019-03-25 11:36] VITALS: BMI 20.7
[2019-05-05 10:31] VITALS: BMI 20.7
[2019-05-12 11:01] VITALS: BP 107/74; PULSE 71; RESP 16; TEMP 36.5; O2SAT 98; BMI 24.5
[2019-05-12] MEDS: Lactated Ringers 1,000 ML 100 ML IV (11:15)
--- NOTE | 2019-05-12 11:23 | PCM.OPRPT ---
Problem List (1) Microhematuria Status: Acute (2) Bladder calculus Status: Acute (3) Urethral stenosis Status: Acute (4) Urethral stricture, postoperative Status: Acute Report of Operation Date of Procedure: 05/12/19 Pre-Operative Diagnosis: hematuria, urethral stricture, bladder calculus Post-Operative Diagnosis: same Surgery/Procedure Performed:: cystoscopy, urethral dilation, laser lithotripsy bladder stone, bladder biopsy with fulguration Description of Surgical Findings:: mesh erosion into bladder Type of Anesthesia:: General Specimen's removed: bladder stone, bladder biopsy with mesh fragments Description of Procedure: Patient is a 53-year-old female who was in the office with microscopic hematuria, lower urinary tract symptoms and pain after mid urethral sling insertion. On evaluation in the office her urethral meatus was very small and unable to accommodate the scope. Due to pain, we were unable to dilate the urethra in the office. Informed consent was obtained and she agreed to proceed under anesthesia. On her CT scan, a bladder calculus was identified at the anterior aspect of the bladder. The patient was taken to the operating room and placed on the operating room table. Anesthesia monitored the head, neck, airway, IV access and vital signs throughout the case. Once anesthesia was appropriately administered the patient was placed into dorsal lithotomy position was prepped and draped in usual sterile fashion. The urethral meatus was very small and was dilated from 12 Croatian to 24 Croatian without difficulty. Using the Hodges 0 degree lens cystoscope, a urethroscopy was performed revealing no evidence of mesh erosion into the urethra. At this time the 70 degree lens was used with the cystoscope. The bladder mucosa was visualized in its entirety. There is an approximately 1 cm stone stuck to the anterior bladder wall. At first it was unclear whether the stone was stuck to abnormal bladder mucosa or mesh. There were no other bladder mucosal abnormalities in the remainder of the urinary bladder. The stone was lasered into dust like fragments using the holmium laser. The last small fragment of stone was removed with biopsy forceps. A biopsy was taken at the base of the stone site. Mesh fragments were seen. This area was fulgurated for hemostatic control. All mesh seen was removed. At this time the patient's bladder was emptied and the case was terminated. She was awakened and taken to the recovery room in good condition. There were no complications during the procedure. - Complications none - Admit VTE Documentation VTE Present on Admission: Yes VTE Mechan Device Prophylaxis: SCD's VTE Pharm Prophylaxis ordered?: No Reason prophylaxis not ordered:: Treatment Not Indicated
--- NOTE | 2019-05-12 11:26 | DCINST_ITS ---
Discharge Diet: No Restrictions Discharge Activity: May not drive while taking narcotic pain medications. Call your doctor if you observe: Fever of 101 or Higher, Inability to urinate, Inability to have a bowel movement, Calf discomfort, Uncontrolled pain Allergies/Adverse Reactions: Allergies acetaminophen [From Vicodin] Allergy (Verified 05/12/19 10:58) Nausea/Vom/Diarrhea hydrocodone [From Vicodin] Allergy (Verified 05/12/19 10:58) Nausea/Vom/Diarrhea Medications to take at Discharge Sertraline HCl [Zoloft] 50 mg PO BID 03/30/14 Pitavastatin Calcium [Livalo] 2 mg PO QHS 05/15/16 Cetirizine HCl [Zyrtec] 10 mg PO DAILY PRN PRN 07/12/16 Omeprazole [Prilosec] 20 mg PO DAILY 10/15/18 Apixaban [Eliquis] 5 mg PO BID 05/05/19 Primary Care Physician: Jimbo Dash MD [Primary Care Provider] - Test Results: Test results from this visit will be discussed in further detail at your follow- up appointment, if applicable. Please Follow Up With: April Nicole MD When: call office for appt in 1 week Proposed Discharge Date: 05/12/19
[2019-05-12] MEDS: Cefazolin 2 GM in 0.9% Normal Saline 100 ML IV (11:37)
[2019-05-12] MEDS: Lubricating Jelly 60 GM Tube 30 GM TOPICAL (11:42)
[2019-05-12 12:44] VITALS: BP 107/74; BP 143/80; PULSE 89; RESP 18; TEMP 37.4; O2SAT 100
[2019-05-12 12:45] VITALS: BP 107/74; BP 132/87; PULSE 64; RESP 16; O2SAT 99
--- NOTE | 2019-05-12 12:45 | BLA_PTH ---
PATIENT: ARYAN AHN [place] [facility] [id number] AGE/SX: 53/F ROOM: RE05/12/[address]: Dr. April Nicole MD : 1965 BED: DIS: 05/12/2019 SPEC #: [id number] RECD: 05/12/19 14:01 STATUS: CAYDEN ANDRADEAgustín #: [id number] BENJAMIN: 05/12/19 12:[address]: April Nicole DEPT: SURGICAL PATHOLOGY RECD BY: Ramakrishna Power ENTERED: 05/12/19 14:42 SP TYPE: BLADDER BX OTHR DR: Dr. Jimbo Dash MD Tissues: A - Urinary bladder, NOS B - CALCULI Procedures: Surgery Specimen Level I Surgery Specimen Level IV HEADER OPERATION: Cysto, urethral dilatation, laser lithotripsy bladder stone PRE-OP DIAGNOSIS: Urethral stricture, hematuria, calculus of lower urinary tract, postmenopausal atrophic vaginitis, dyspareunia TISSUE SUBMITTED: A - Bladder biopsy - please confirm presence of mesh, B - Bladder stone - stone analysis MICROSCOPIC DIAGNOSIS A. Urinary bladder, biopsy: Fragments of urothelium and minimal chronic inflammation and mild reactive change. Crystalline debris suggestive of calculus. See comment. B. Urinary bladder stone, removal: Fragments of unremarkable calculi (gross diagnosis only). AM:yaw 05/13/19 COMMENT A. Structures resembling mesh are not identified. Clinical correlation is suggested. B. The calculus is submitted in its entirety for chemical stone analysis. The results from this study will be reported separately. Case has been reviewed in consultation with Dr. Marx who concurs with the above diagnosis. IDC:SJ MICROSCOPIC DESCRIPTION Slides are reviewed. GROSS DESCRIPTION A - Received in fixative is one container labeled with the patient's name and designated bladder biopsy. The specimen consists of multiple irregular fragments of light juan soft tissue that in aggregate measure 2.2 x 0.5 x 0.1 cm. The specimen is totally submitted in one cassette. B - Received is one container labeled with the patient's name and designated renal calculi. The specimen consists of multiple minute fragments of light juan calculi that in aggregate measure 0.1 x <0.1 x <0.1 cm. The specimen is totally submitted in one cassette. / AM:yaw 05/12/19 TC:3 CPT: 40832, 22653
[2019-05-12 13:00] VITALS: BP 107/74; BP 142/92; PULSE 67; RESP 16; O2SAT 99
[2019-05-12 13:02] VITALS: BP 107/74; BP 145/82; PULSE 63; RESP 16; TEMP 37.4; O2SAT 100
[2019-05-12 14:28] VITALS: BP 107/74; BP 133/77; PULSE 66; RESP 16; TEMP 35.9; O2SAT 98
[2019-05-28 12:07] LABS: Ca Oxalate, Monohydrate 90 % (.); Calcium Phosphate 10 % (.)
== END 2019-05-12 14:31 | disposition home or self-care (01) ==
LOC: SDC 10:44 → AC 10:45
PROVIDERS: Family Provider Family Medicine; PCP Family Medicine; Referring Provider Urology; Visit Provider Urology
PROC: 0T7D8ZZ Dilation of Urethra, Via Natural or Artificial Opening Endoscopic (ICD-10-PCS; CPT 52281; principal; 2019-05-12 12:35)
DX: N21.0 Calculus in bladder (principal); T83.718A Erosion of other implanted mesh to organ or tissue, initial encounter; R31.29 Other microscopic hematuria; N99.12 Postprocedural urethral stricture, female; N95.2 Postmenopausal atrophic vaginitis; E78.00 Pure hypercholesterolemia, unspecified; G25.81 Restless legs syndrome; Z79.01 Long term (current) use of anticoagulants; Z79.899 Other long term (current) drug therapy; Z86.718 Personal history of other venous thrombosis and embolism
CPT/HCPCS: 52204; 52317; 82360; 88300; 88305; J7120; J2405

== ENCOUNTER → 2019-05-27 08:46 | Outpatient (CLI) | payer OTHER, SELFPAY ==
[2019-05-12 11:01] VITALS: BMI 24.5
== END ==
PROVIDERS: PCP Family Medicine; Referring Provider Urology; Visit Provider Urology
DX: R31.9 Hematuria, unspecified (principal)
CPT/HCPCS: 87086; 87088

== ENCOUNTER → 2019-06-19 11:37 | Outpatient (CLI) | payer OTHER, SELFPAY ==
[2019-01-08 09:25] VITALS: BMI 23.6
--- NOTE | 2019-06-19 12:31 | BI_ITS ---
MAMMOGRAPHY - BILATERAL SCREENING REASON FOR EXAM: Female, 54 years old. Routine annual screening examination. PERTINENT HISTORY: Aunt with breast cancer. TECHNIQUE: Digital bilateral breast nahid (3D mammographic acquisition) in the CC and MLO projections. 2-D mediolateral oblique (MLO) and craniocaudad (CC) views of both breasts were obtained. CAD: Full Field Digital Mammography with Computer Added Detection was performed. COMPARISON: Comparison is made with prior examination dated June 16, 2018 and May 14, 2017. FINDINGS: Breast Composition: The breasts are heterogeneously dense, which may obscure small masses. There are no dominant masses or suspicious calcifications. Stable 1.5 cm densely calcified nodule in the deep midportion of the right breast. The previously seen well-defined nodule in the retroareolar region of the left breast presently measures 4.8 mm.. Prior sonogram demonstrated to be a cyst. No other significant abnormalities are identified. There has been no significant change since the prior study. BI/SCREEN MAMM (CAD) W/NAHID BILAT IMPRESSION: Stable bilateral screening mammogram. Yearly follow-up mammogram recommended. (A) ASSESSMENT CATEGORY: BIRADS Category 2: Benign. A letter regarding these results will be sent to the patient by the facility within 30 days. Approximately 10% of breast cancers are not detected by mammography. A normal mammogram should not delay biopsy of a clinically suspicious abnormality. [id number] Electronically Signed: Sony Arvizu, at 13:22 EST , Service support ,
== END ==
PROVIDERS: Family Provider Family Medicine; PCP Family Medicine; Referring Provider Obstetrics & Gynecology; Visit Provider Obstetrics & Gynecology
DX: Z12.31 Encounter for screening mammogram for malignant neoplasm of breast (principal); Z80.3 Family history of malignant neoplasm of breast
CPT/HCPCS: 77063; 77067

== ENCOUNTER 2019-07-04 18:43 | Emergency (ER) | payer OTHER, SELFPAY ==
[2019-07-04 18:44] VITALS: BP 69/40; PULSE 61; RESP 16; TEMP 36.9; O2SAT 99; BMI 25.0
[2019-07-04 18:55] VITALS: BP 126/77
--- NOTE | 2019-07-04 19:07 | CT_ITS ---
STUDY: CT BRAIN WITHOUT CONTRAST REASON FOR EXAM: Female, 54 years old. HEAD/NECK PAIN AFTER FALL. FRONTAL LAC, ON ELIQUIS RADIATION DOSAGE (If Supplied By Facility): CTDIvol = ( 44.99 ) mGy, DLP = ( 779.24 ) mGycm TECHNIQUE: Transaxial CT imaging of the brain was performed without administration of intravenous contrast material. Individualized dose optimization techniques were used for this CT. COMPARISON: No relevant priors. FINDINGS: Normal soft tissue structures. Normal calvarium. Normal size ventricles and extra-axial spaces for the patient''s age. Normal white matter tracts of the cerebral hemispheres. Normal basal ganglia and thalami. Normal brainstem. Normal cerebellum. There is no intracranial hemorrhage. There are no findings of an acute ischemic infarction. Normal visualized paranasal sinuses. CT/Brain/Head without Contrast IMPRESSION: Normal unenhanced CT scan of the brain. Electronically Signed: Zan Sanchez MD at 20:24 EST Tel , Service support ,
--- NOTE | 2019-07-04 19:07 | CT_ITS ---
STUDY: CT CERVICAL SPINE WITHOUT CONTRAST REASON FOR EXAM: Female, 54 years old. HEAD/NECK PAIN AFTER FALL. FRONTAL LAC, ON ELIQUIS RADIATION DOSAGE (If Supplied By Facility): CTDIvol = ( 16.48 ) mGy, DLP = ( 332.26 ) mGycm TECHNIQUE: High resolution transaxial imaging was performed without contrast material. Sagittal and coronal images were reconstructed. Individualized dose optimization techniques were used for this CT. COMPARISON: None FINDINGS: Normal craniovertebral junction. There are degenerative changes of the anterior atlantoaxial articulation. Normal odontoid process. Normal cervical lordosis. Normal vertebral bodies and posterior osseous elements. C2-3: Normal endplates. Normal disc height and morphology. Normal central canal and intervertebral neuroforamina. C3-4: Mild broad disc osteophyte complex and bilateral carotid joint hypertrophy produces mild spinal stenosis and mild bilateral neural foraminal stenosis. C4-5: 2 mm retrolisthesis of C4 on C5 with mild broad disc osteophyte complex and bilateral vertebral hypertrophy produces mild spinal stenosis and mild bilateral neural foraminal stenosis. C5-6: Mild broad disc osteophyte complex and bilateral carotid joint hypertrophy produces mild spinal stenosis and mild bilateral neural foraminal stenosis. C6-7: Mild broad disc osteophyte complex and bilateral carotid joint hypertrophy produces mild spinal stenosis and mild bilateral neural foraminal stenosis. C7-T1: Normal endplates. Normal disc height and morphology. Normal central canal and intervertebral neuroforamina. Normal visualized soft tissue structures. CT/Spine Cervical without Contras IMPRESSION: No acute fracture or subluxation. Electronically Signed: Zan Sanhcez MD at 20:30 EST Tel , Service support ,
--- NOTE | 2019-07-04 19:09 | ED.VISSUMM ---
- ER Visit Summary Date of Service: 07/04/19 Chief Complaint: Fall History of Present Illness: The patient is a 54 F who presents after a fall that occurred today. Patient fell off the side of some steps. Patient states this is only a couple feet high. Patient was leaning over to look for cat when she fell. Patient hit her head but denies any loss of consciousness. Patient denies any paresthesias or weakness. Patient complains of pain in her face, head, and neck. Patient also complains of pain in her left wrist. Patient states her pain is worse with any movement. Patient denies any nausea or vomiting. Patient describes her pain is sharp, aching, and throbbing. Patient thinks her last tetanus shot was approximately 12 years ago. Physical Examination: Vital signs are stable. Patient is afebrile. Patient is in no acute distress. Skin is warm and dry. There is a 2.5 cm linear laceration over the right frontal area. There is a small hematoma. There is no active bleeding noted. There is no bony crepitance or step-off. There is also tenderness and ecchymosis over the bridge of the nose. There is a 2 cm full-thickness linear laceration over the right upper lip on the external surface just below the nose but there is no active bleeding noted. Oral mucosa is pink and moist. Neck is supple. Trachea is midline. There is some mild midline cervical spine tenderness. There is no bony crepitance or step-off. Heart was regular rate and rhythm. Lungs are clear and equal bilaterally. Abdomen is soft and nontender. There is tenderness over the left wrist. There is no deformity noted. There is no edema or ecchymosis. Range of motion was limited in all motions of the left wrist secondary to pain. Strength is 5/5 in the radial, median, and ulnar areas. Sensation was intact to light touch in the radial, median, and ulnar areas. Radial pulses are equal bilaterally. There is no tenderness of the lower extremities. Pedal pulses are equal bilaterally. Cranial nerves II through XII are intact. There are no focal motor or sensory deficits. Test Results: X-rays of the left wrist showed a nondisplaced distal radius fracture. CT scan of the brain was obtained. There is no acute intracranial abnormality. CT scan of the cervical spine was obtained. There is no acute fracture or dislocation. Emergency Department Course and Treatment: Patient was given morphine here. Patient was given a tetanus booster. The right forehead laceration was cleaned and irrigated with copious amounts of normal saline. This was closed with Dermabond skin adhesive. The upper lip laceration was also cleaned and irrigated with copious amounts normal saline. This was also closed with Dermabond skin adhesive. Dressings were also applied to the abrasions over the bridge of the nose. The patient was placed in a well-padded short arm AP splint of the left forearm and wrist. Patient tolerated the procedures well. Patient was given a prescription for Percocet. Patient states she has seen Dr. Edward in the past and wants to follow-up with her. Patient was instructed to follow-up with her in 3 to 5 days. Patient understood and was agreeable with the plan. All questions were answered. Disposition: Discharge home Impression: 1. Left distal radius fracture 2. Closed head injury 3. Forehead laceration 4. Upper lip laceration This note was generated with Sequen[employer] dictation software. It may contain incorrect words, spelling, and punctuation that were not noted in review of the chart prior to signing ED Disposition - Plan for ED Patient: Disposition: Home or Assisted Living Diagnosis: Fracture of left distal radius, Laceration of forehead without complication, Facial laceration Instructions: COLLES FRACTURE, No Reduction Required, LACERATION, Face (Skin Glue) Prescriptions: Oxycodone HCl/Acetaminophen [Percocet 5/325] 1 tab PO Q6H PRN PRN 3 Days #12 tab PRN Reason: Pain Prescription Printed Referrals: Jimbo Dash MD [Primary Care Provider] - 5-7 Days Leigha Edward DO [STAFF PHYSICIAN] - 3-5 Days
--- NOTE | 2019-07-04 19:13 | RAD_ITS ---
STUDY: X-RAY - LEFT WRIST REASON FOR EXAM: Female, 54 years old. FALL, PAIN TECHNIQUE: 3 view(s) of the wrist were obtained. COMPARISON: None. FINDINGS: Acute comminuted nondisplaced nonangulated fracture of the distal radius with extension into the radiocarpal joint. Normal radiocarpal articulation. Normal distal radioulnar articulation. Normal carpal bones. Normal carpal articulations. Normal carpometacarpal articulation of the thumb. Normal second through fifth carpometacarpal articulations. Normal visualized metacarpal bones. The soft tissue structures are unremarkable. RAD/Wrist min 3 Views IMPRESSION: Acute comminuted nondisplaced nonangulated fracture of the distal radius with extension into the radiocarpal joint. Electronically Signed: Zan Sanchez MD at 20:10 EST Tel , Service support ,
[2019-07-04] MEDS: 0.9% Normal Saline 1,000 ML 1000 ML IV (19:22)
[2019-07-04] MEDS: Morphine 4 MG/ML Syringe IV (19:23)
[2019-07-04 19:32] VITALS: BP 144/84; PULSE 58; RESP 18; O2SAT 96
[2019-07-04] MEDS: Diphth,Pertuss(Acell),Tet Vac 0.5 ML Vial IM (19:54)
[2019-07-04 21:04] VITALS: BP 139/83; PULSE 62; RESP 18; O2SAT 97
[2019-07-04 21:52] VITALS: BP 159/99; PULSE 72; RESP 18; O2SAT 97
== END 2019-07-04 21:53 | disposition home or self-care (01) ==
PROVIDERS: Emergency Provider Emergency Medicine; PCP Family Medicine
DX: S52.502A Unspecified fracture of the lower end of left radius, initial encounter for closed fracture (principal); S01.91XA Laceration without foreign body of unspecified part of head, initial encounter; S01.511A Laceration without foreign body of lip, initial encounter; S00.33XA Contusion of nose, initial encounter; R04.0 Epistaxis; W10.9XXA Fall (on) (from) unspecified stairs and steps, initial encounter; Y93.9 Activity, unspecified; Y92.9 Unspecified place or not applicable; Y99.9 Unspecified external cause status; Z23 Encounter for immunization; F32.9 Major depressive disorder, single episode, unspecified; F41.9 Anxiety disorder, unspecified; Z79.899 Other long term (current) drug therapy; Z79.01 Long term (current) use of anticoagulants; Z86.718 Personal history of other venous thrombosis and embolism
CPT/HCPCS: 12013; 29125; 70450; 72125; 73110; 90715; 96361; 96374; 99284; J7030; A4216

== ENCOUNTER → 2019-08-20 12:44 | Outpatient (CLI) | payer OTHER, SELFPAY ==
--- NOTE | 2019-08-20 12:47 | MRI_ITS ---
STUDY: MRI LEFT SHOULDER REASON FOR EXAM: Female, 54 years old. left shoulder strain, hx prior surgery rotator cuff TECHNIQUE: Standardized fat and water weighted pulse sequences were obtained in all 3 orthogonal planes. COMPARISON: January 02, 2019. FINDINGS: Evidence of prior rotator cuff repair. Recurrent full-thickness supraspinatus tendon tear measuring approximately 1.7 cm x 0.7 cm (coronal image 11 series 6 and sagittal image 10 series 7). Retracted tendon at the level of the acromioclavicular joint. Moderate supraspinatus and infraspinatus tendinosis. Mild/moderate subscapularis tendinosis. Normal teres minor tendon. Moderate supraspinatus/infraspinatus muscle atrophy predominating at the infraspinatus (sagittal image 1 series 2). Remainder of the rotator cuff muscles unremarkable. Intracapsular long biceps tendon rupture. Labral degeneration/fraying without discrete labral tear. Capsular ligaments intact. Normal rotator cuff interval. Small volume glenohumeral joint effusion with fluid extending through tear into the subacromial subdeltoid bursa. Mild glenohumeral articular cartilage loss. Mild acromioclavicular joint arthrosis. Preserved acromiohumeral interval. No acute fracture. No dislocation. No bone destruction. Intact coracohumeral and coracoacromial ligaments. Normal quadrilateral space. Normal axillary space. Normal deltoid muscle. Normal trapezius muscle. MRI/Upper Ext Joint Only(Routine) IMPRESSION: Recurrent full-thickness retracted supraspinatus tendon tear Moderate rotator cuff tendinosis with moderate/severe muscle atrophy Intracapsular long biceps tendon rupture Labral degeneration/fraying Mild glenohumeral and AC joint arthrosis Small joint effusion with fluid extending through tear into the subacromial subdeltoid bursa Electronically Signed: Reji Nava DO at 14:06 EDT Tel , Service support ,
--- NOTE | 2019-08-20 12:47 | MRI_ITS ---
STUDY: MRI LEFT WRIST WITHOUT CONTRAST REASON FOR EXAM: Female, 54 years old. left wrist fracture/sprain TECHNIQUE: Standardized fat and water weighted pulse sequences were obtained in all 3 orthogonal planes. COMPARISON: X-ray dated July 04, 2019. FINDINGS: Acute comminuted slightly displaced fracture with intra-articular extension at the distal radius (coronal images 9 through 15 series 5). Fracture fragment separation measures approximately 4 mm. No acute dislocation. No acute bone destruction. Distal ulna intact. Small nonspecific well-corticated cyst/erosions of the carpal bones and fifth metacarpal. Mild first carpometacarpal joint arthrosis with bone marrow edema. Minimal intercarpal joint arthrosis. Minimal radiocarpal joint arthrosis. Triangular fibrocartilage complex degeneration without tearing (coronal image 9 series 6). Scapholunate ligament intact. Dorsal and volar ligaments intact. Normal flexor tendons. Normal median nerve. Normal extensor tendons. Mild soft tissue swelling. No solid, cystic or lipomatous soft tissue lesions. Small distal radial ulnar joint effusion. Minimal intercarpal joint effusions. MRI/Upper Ext Joint Only(Routine) IMPRESSION: Acute comminuted slightly displaced distal radius intra-articular fracture TFCC degeneration without tearing Mild soft tissue swelling with small joint effusions Minimal degenerative features with small well-corticated cysts/erosions Electronically Signed: Reji Nava DO at 14:16 EDT Tel , Service support ,
== END ==
PROVIDERS: PCP Family Medicine; Referring Provider Physician Assistant; Visit Provider Physician Assistant
DX: S43.82XD Sprain of other specified parts of left shoulder girdle, subsequent encounter (principal); S52.572D Other intraarticular fracture of lower end of left radius, subsequent encounter for closed fracture with routine healing; S63.8X2D Sprain of other part of left wrist and hand, subsequent encounter
CPT/HCPCS: 73221

== ENCOUNTER 2020-01-19 09:30 | Outpatient (RCR) | payer OTHER, SELFPAY ==
--- NOTE | 2020-01-13 09:32 | HP.OTEVAL ---
Patient's Visit Information ARYAN AHN is a 54 year old F, referred to Occupational Therapy by Dr. Cliff Collins DO, with a diagnosis of right cmc osteoarthritis. Date of Evaluation: 01/11/20 Occupational Therapist: SUJATHA Pederson/Noy, CHT - Subjective This 54 year old female was seen for OT eval with dx of unilateral primary osteoarthrisits of first. pt states she had a fall in june where she re-tore her left rotator cuff- pt states june is when she noticed her pain in her right wrsit and thumb. pt would like to decrease her pain so she can return to performing her ADLs and IADls ind. pt works in [employer] and works 12 hour shifts 2 days a week. 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 pt is very active and tries to not let her pain stop her. - Pain right hand 2 Pain Intensity Range: 8 - ROM Wrist: right 70/40 left 70/55 CMC: right 10 left 10 MP: right 60 left 60 IP: right 40 left 60 MP: right IF 70 left 80 PIP: right 108 left 109 ROM Comments: pt demo with bilateral CMC OA deformities- right painful with palpation - Strength Tube Cleaner: right 35# with pain left 65# Lateral Pinch: right 10# left 10# Tripod Pinch: right 6# left 10# - Edema Wrist: right 15.5 left 16.5cm Proximal Phalanx: right 6.0cm left 5.7cm Other: MCP right 20cm left 19.5cm - Sensation Sensation Comments: denies - Quick DASH-Disab of Arm,Shoulder& Hand Quick DASH Score: 32.1425 - Goals Goal:: Pt will demo a increase in right oven stripper strength by 20# to increase pts ind.with ADLs and IADLs by d/c Goal:: pt will demo a increase in right wrist ROM equal to left by d/c with no report of discomfort Goal:: pt will report no pain greater than 1/10 with use of right UE for ADls and IADls by d/c Goal:: Pt will demo understanding of joint protection and wrist ergo for use with ADLs and IADLs by d/c - Rehabilitation General Assessment: Pt demo with pain and weakness limiting her ind. with ADLS and IADLs pt would benefit from skilled OT services 2-3 x week for 4 weeks to decrease pain and increase pts strength for ADLs and IADLs. Today pt ed. pt on wrist ergo and joint protection. pt demo understanding and agree to POC. Rehabilitation Potential: Good - Anticipated Interventions Strengthening, Triggerpoint Release, Modalities, Orthoses, Joint Protection/Energy Conservation, Ergonomic Education, Education re assistive Equipment - Visit Plan Frequency: 2-3x /Week Duration: 4 Weeks TEXT: Thank you for the opportunity to evaluate your patient. For Medicare and Medicare HMO plans, please review the plan of care and approve it. It will need to be FAXED BACK to us at [phone] for Medicare purposes. Please let me know if there are questions or concerns regarding this plan of care. Physician Signature: Date:
--- NOTE | 2020-04-04 09:24 | HP.OT.NRP ---
ARYAN AHN was seen in my office for initial evaluation on 01/11/20. The following Plan of Care was established for this patient: Initial Frequency: 2-3x /Week Initial Duration: 4 Weeks Plan: cont with thumb care ex. adj orthosis. US- thumb care Anticipated Interventions: Strengthening, Triggerpoint Release, Modalities, Orthoses, Joint Protection/Energy Conservation, Ergonomic Education, Education re assistive Equipment This patient was last seen in our office 01/19/20. Pertinent comments regarding their Occupational therapy will appear below: This pt was seen for 3 OT visits cancelled last two scheduled apts. and has not scheduled any further apts and due to time lapse in care pt d/c. At this point I will be discontinuing this patient from occupational therapy. I would be happy to see this patient again in the future if found appropriate by the physician. Thank you! Patricia Villagomez, OTR/L, CHT
== END 2020-01-19 19:00 | disposition home or self-care (01) ==
LOC: OT 09:30
PROVIDERS: PCP Family Medicine; Visit Provider Orthopaedic Surgery
DX: M18.11 Unilateral primary osteoarthritis of first carpometacarpal joint, right hand (principal)
CPT/HCPCS: 97035; 97140; 97166; 97760

== ENCOUNTER 2020-03-21 08:12 | Day surgery (SDC) | payer OTHER, SELFPAY ==
--- NOTE | 2020-03-18 09:57 | EKG12_ITS ---
Test Reason : PREOP Blood Pressure : / mmHG Vent. Rate : 067 BPM Atrial Rate : 067 BPM P-R Int : 156 ms QRS Dur : 078 ms QT Int : 400 ms P-R-T Axes : 051 061 043 degrees QTc Int : 422 ms Normal sinus rhythm Low voltage QRS Borderline ECG Confirmed by TAWANDA MCELROY, JR ([id number]), script editor RAOUL MCDOWELL ([id number]) on 03/21/2020 10:37:26 AM Referred By: Cliff Collins Confirmed By:JR NEFF MD
[2020-03-18 11:16] LABS: Hematocrit 45.7 % (37-47); Hemoglobin 14.5 g/dL (12.0-15.0); Mean Corp Hgb Conc 31.7 g/dL (32-36); Mean Corpuscular Hgb 30.1 pg (27.0-32.0); Mean Platelet Vol. 10.2 fl (6.2-12.0); Platelet Count 248 K/mm3 (150-450); RBC Distribution Width CV 12.5 % (11.6-14.6); RBC Distribution Width SD 43.8 fl (35.1-43.9); Red Blood Count 4.81 M/mm3 (4.2-5.4); White Blood Count 4.2 K/mm3 (4.4-11.0)
[2020-03-18 11:53] LABS: Anion Gap 4 (5-15); BUN 23 mg/dL (7-18); BUN/Creat Ratio 27.1 RATIO (10-20); Calcium,Total 9.3 mg/dL (8.5-10.1); Chloride 108 mmol/L (98-107); Creatinine, Serum 0.85 mg/dL (0.55-1.02); EST Glomerular Filtration Rate 74 mL/min (>60); Est Glom Filt Rate - Afr Amer 90 mL/min (>60); Glucose 86 mg/dL (74-106); Potassium 4.1 mmol/L (3.5-5.1); Sodium Level 141 mmol/L (136-145)
[2020-03-21] VITALS (11 sets, daily range): BP systolic 113–162; BP diastolic 67–90; PULSE 60–97; RESP 16–18; TEMP 36.1–36.9; O2SAT 93–98; BMI 25.3
[2020-03-21] MEDS: Lactated Ringers 1,000 ML 100 ML IV ×2 (08:43→11:29)
[2020-03-21] MEDS: Cefazolin 2 GM in 0.9% Normal Saline 100 ML IV (09:27)
[2020-03-21] MEDS: Epinephrine (1 mg/ml) 1 MG/ML VIAL ×2 (09:52→10:51)
[2020-03-21] MEDS: Bupiv/Epi 0.5% Mpf 30 ML Vial (09:52)
--- NOTE | 2020-03-21 10:51 | PCM.OPRPT ---
Report of Operation Date of Procedure: 03/21/20 Pre-Operative Diagnosis: Recurrent left rotator cuff tear Post-Operative Diagnosis: Same with exuberant subacromial scar tissue and AC joint arthrosis Surgery/Procedure Performed:: Revision RCR, Phoebe procedure and ASD left retail marketing manager: Pablito Martinez Type of Anesthesia:: General/Regional Anesthesiologist: Reji Rodrigues - Admit VTE Documentation VTE Present on Admission: No VTE Mechan Device Prophylaxis: SCD's, Thigh High ALLEN Hose VTE Pharm Prophylaxis ordered?: No Reason prophylaxis not ordered:: Treatment Not Indicated
--- NOTE | 2020-03-21 11:46 | EKG12_ITS ---
Test Reason : POST OP Blood Pressure : / mmHG Vent. Rate : 065 BPM Atrial Rate : 065 BPM P-R Int : 132 ms QRS Dur : 084 ms QT Int : 438 ms P-R-T Axes : 059 062 022 degrees QTc Int : 455 ms Normal sinus rhythm Low voltage QRS Borderline ECG Confirmed by TAWANDA MCELROY, JR ([id number]), makeup editor RADHA SNYDER ([id number]) on 03/23/2020 10:58:41 AM Referred By: Cliff Collins Confirmed By:JR NEFF MD
[2020-03-21] MEDS: Ondansetron 4 MG/2 ML Vial IV (12:22)
== END 2020-03-21 17:55 | disposition home or self-care (01) ==
LOC: SDC 08:13 → AC 08:13
PROVIDERS: PCP Family Medicine; Referring Provider Orthopaedic Surgery; Visit Provider Orthopaedic Surgery
PROC: (CPT 29827; principal; 2020-03-21 09:10)
DX: S43.422A Sprain of left rotator cuff capsule, initial encounter (principal); M19.012 Primary osteoarthritis, left shoulder; M75.42 Impingement syndrome of left shoulder; W19.XXXA Unspecified fall, initial encounter; Y93.9 Activity, unspecified; Y92.9 Unspecified place or not applicable; Y99.9 Unspecified external cause status; Z20.828 Contact with and (suspected) exposure to other viral communicable diseases; E78.00 Pure hypercholesterolemia, unspecified; K21.9 Gastro-esophageal reflux disease without esophagitis; F41.9 Anxiety disorder, unspecified; Z86.718 Personal history of other venous thrombosis and embolism; Z86.72 Personal history of thrombophlebitis
CPT/HCPCS: 29824; 29826; 29827; 64415; 36415; 80048; 85027; 87426; 93005; C9803; J7120; J2405

== ENCOUNTER 2020-04-18 15:15 | Outpatient (RCR) | payer OTHER, SELFPAY | END 2020-04-18 19:00 | disposition home or self-care (01) | LOC: MASS 15:15 | PROVIDERS: PCP Family Medicine; Referring Provider Family Medicine; Visit Provider Family Medicine | DX: M25.559 Pain in unspecified hip (principal) | CPT/HCPCS: 97124 ==

== ENCOUNTER → 2020-07-21 07:43 | Outpatient (CLI) | payer OTHER, SELFPAY ==
[2020-03-21 08:29] VITALS: BMI 25.3
--- NOTE | 2020-07-21 07:27 | BI_ITS ---
MAMMOGRAPHY - BILATERAL SCREENING REASON FOR EXAM: Female, 55 years old. Routine annual screening examination. PERTINENT HISTORY: Aunt with breast cancer. TECHNIQUE: Digital bilateral breast nahid (3D mammographic acquisition) in the CC and MLO projections. 2-D mediolateral oblique (MLO) and craniocaudad (CC) views of both breasts were obtained. CAD: Full Field Digital Mammography with Computer Added Detection was performed. COMPARISON: Comparison is made with prior examination of 06/19/2019 and 06/16/2018. FINDINGS: Breast Composition: The breasts are heterogeneously dense, which may obscure small masses. There are no dominant masses or suspicious calcifications. Stable densely calcified nodule in the deep central portion of the right breast in keeping with the calcified fibroadenoma. The previously seen 4.8 mm well-defined nodule in the retroareolar region of the left breast is not seen at this time. No other significant abnormalities are identified. There has been no significant change since the prior study. BI/SCRN MAMM (CAD)W/NAHID BILAT IMPRESSION: Stable bilateral screening mammogram. Yearly follow-up mammogram recommended. (A) ASSESSMENT CATEGORY: BIRADS Category 2: Benign. A letter regarding these results will be sent to the patient by the facility within 30 days. Approximately 10% of breast cancers are not detected by mammography. A normal mammogram should not delay biopsy of a clinically suspicious abnormality. [id number] Electronically Signed: Sony Arvizu MD at 8:13 EDT , Service support ,
== END ==
PROVIDERS: PCP Family Medicine; Referring Provider Advanced Practice Midwife; Visit Provider Advanced Practice Midwife
DX: Z12.31 Encounter for screening mammogram for malignant neoplasm of breast (principal)
CPT/HCPCS: 77063; 77067

== ENCOUNTER → 2020-10-03 16:32 | Outpatient (CLI) | payer OTHER, SELFPAY ==
[2020-03-21 08:29] VITALS: BMI 25.3
--- NOTE | 2020-10-03 16:35 | RAD_ITS ---
STUDY: X-RAY - PELVIS AND BILATERAL HIPS REASON FOR EXAM: Female, 55 years old. Joint pain. TECHNIQUE: AP view of the pelvis.? 2 views of the right hip, and 2 views of the left hip were obtained. COMPARISON: None. FINDINGS: There is a non-specific bowel gas pattern. Phleboliths. Normal bilateral iliac wings, sacroiliac joints and visualized sacrum. Normal bilateral superior and inferior pubic rami. Normal pubic symphysis. Normal bilateral ischial tuberosities. Normal visualized right femoral head. Normal right acetabulum. Normal right hip joint. Normal visualized left femoral head. Normal left acetabulum. Normal left hip joint. RAD/Hips B/L min 2 views w/ Pelvis IMPRESSION: Normal x-ray examination of the pelvis and bilateral hips. Electronically Signed: Pablito Gupta MD at 10:51 EDT , Service support ,
== END ==
PROVIDERS: PCP Family Medicine; Referring Provider Family Medicine; Visit Provider Family Medicine
DX: M25.552 Pain in left hip (principal)
CPT/HCPCS: 73521

== ENCOUNTER → 2021-02-07 14:49 | Outpatient (CLI) | payer OTHER, SELFPAY ==
--- NOTE | 2021-02-07 15:05 | BD_ITS ---
STUDY: DUAL ENERGY X-RAY ABSORPTIOMETRY / DXA REASON FOR EXAM: Female, 55 years old. V76.12ScreeningBONE DENSITY REASON FOR EXAM TECHNIQUE: Bone Mineral Density (BMD) measurements of lumbar spine and bilateral hips were obtained. COMPARISON: None. FINDINGS: Lumbar Spine (L1-L4): g/cm2 (0.780) / T-score (-2.4) / Z-score (-1.3) Findings are suggestive of osteopenia with a high fracture risk. Left Femur Total: g/cm2 (0.785) / T-score (-1.3) / Z-score (-0.6) Left Femoral Neck: g/cm2 (0.651) / T-score (-1.8) / Z-score (-0.7) Right Femur Total: g/cm2 (0.756) / T-score (-1.5) / Z-score (-0.8) Right Femoral Neck: g/cm2 (0.582) / T-score (-2.4) / Z-score (-1.3) BD/Dexa Bone Density Study IMPRESSION: The patient is considered osteopenic as outlined below according to World Rajesh Organization (WHO) criteria with a high fracture risk. Reference Information: The T-score is the number of standard deviations above or below the standard which is normal for young adults at their peak bone mineral density. The World Health Organization (WHO) interprets the T-scores as follows: Above -1 Normal bone density Between -1 and -2.5 Osteopenia Equal to / or below -2.5 Osteoporosis As a practical clinical guideline, osteopenia may be graded as follows: Mild -1 through -1.5 Moderate -1.6 through -2.0 Severe -2.1 through -2.4 The Z-score is the number of standard deviations above or below age-matched controls. A Z-score of less than -1.5 would be considered abnormal. References: 1. NIH Osteoporosis and Related Bone Diseases www osteo.org 2. International Society for Clinical Densitometry www iscd.org 3. National Osteoporosis Foundation www nof.org Electronically Signed: Sony Arvizu MD at 9:42 EDT , Service support ,
== END ==
PROVIDERS: PCP Family Medicine; Referring Provider Family Medicine; Visit Provider Family Medicine
DX: Z00.00 Encounter for general adult medical examination without abnormal findings (principal); M85.80 Other specified disorders of bone density and structure, unspecified site
CPT/HCPCS: 77080

== ENCOUNTER → 2021-02-21 | Outpatient (CLI) | payer OTHER, SELFPAY | END | disposition home or self-care (01) | LOC: LABSPEC 15:09 | PROVIDERS: PCP Family Medicine; Referring Provider Family Medicine; Visit Provider Family Medicine | DX: N39.0 Urinary tract infection, site not specified (principal) | CPT/HCPCS: 87086; 87088 ==

== ENCOUNTER 2021-03-09 13:15 | Outpatient (RCR) | payer OTHER, SELFPAY ==
[2020-03-21 08:29] VITALS: BMI 25.3
--- NOTE | 2020-10-01 07:52 | MASS.EVAL_ITS ---
Massage Therapy Evaluation: Initial Evaluation Date: 09/30/2020 SUBJECTIVE: Karolina is a 55 year old female who was referred to the [facility] facility for a massotherapy evaluation by Dr. Dash with the diagnosis of neck pain. She presents today with the symptoms of pain, stiffness and tension in the neck, head and shoulders. Karolina reports having a past medical history of chronic neck and back pain. OBJECTIVE: Upon observation Karolina has poor posture with her head and shoulders forward from the neutral position in sitting and standing. After examination and palpation, I found Karolina to have high muscle tension with tenderness and myofascial restrictions in her sub occipitals, levator scapulae, trapezius, rhomboids, scalenes, and thoracic paraspinals. The first treatment consisted of a one hour massage to her upper body with myofascial release, muscle stripping, trigger point compression techniques, and cervical manual traction. ASSESSMENT: I feel that Karolina is a good candidate for massotherapy at this time. She had a favorable response to the first treatment with reduction in her muscle aches, pain, and tension. She also had improvement in her cervical flexibility and low back flexibility. PLAN: The plan of care was reviewed with the patient. The patient is to be seen on an as needed basis for a total of ten sessions with the recommendation of once every month for a one hour treatment.
--- NOTE | 2021-04-11 12:49 | MASS.DISCH ---
Massage Therapy Discharge Summary: Initial Evaluation Date: 09/30/20 Diagnosis: back pain No. of Visits: 6 Date of last visit: 03/09/21 This patient is being discharged from our care at the [facility]. Thank you, Tika Cordova LMT
== END 2021-03-09 19:00 | disposition home or self-care (01) ==
LOC: MASS 13:15
PROVIDERS: PCP Family Medicine; Referring Provider Family Medicine; Visit Provider Family Medicine
DX: M54.2 Cervicalgia (principal); M54.50 Low back pain, unspecified; G89.29 Other chronic pain
CPT/HCPCS: 97124

== ENCOUNTER 2021-05-26 16:20 | Outpatient (CLI) | payer OTHER, SELFPAY ==
--- NOTE | 2021-05-26 16:26 | MRI_ITS ---
STUDY: MRI BRAIN WITH AND WITHOUT CONTRAST REASON FOR EXAM: Female, 55 years old. ACOUSTIC NEUROMA, BILATERAL TINNITUS TECHNIQUE: Standardized multiplanar fat and water weighted pulse sequences were obtained. IV 13 cc dotarem was administered for the contrast portion of the examination. COMPARISON: None. FINDINGS: Normal size of the ventricles and extra-axial spaces for the patient''s age. Normal white matter tracts of the supratentorial brain. Normal bilateral basal ganglia. Normal thalami. There is no extra-axial fluid accumulation. Normal flow voids within the major intracranial circulation suggesting patency by spin echo criteria. Normal venous enhancement. There is no enhancing intra-axial or extra-axial abnormality. Normal sella turcica, pituitary gland, infundibular stalk, optic chiasm and hypothalamus. Normal tectal plate and pineal gland. Normal midbrain, linda and medulla. Normal cerebellum. Normal basal cisterns. Normal bilateral temporal bones. Normal bilateral internal auditory canals. No demonstrated orbital abnormality, within the constraints of a routine brain study. Normal visualized paranasal sinuses. Normal calvarium and skull base. Normal visualized soft tissue structures. Normal visualized upper cervical spine. MRI/Brain W/WO Contrast IMPRESSION: Normal unenhanced and enhanced MRI of the brain. Electronically Signed: Viktor Jasmine MD at 20:51 EST ,
== END 2021-05-26 23:59 | disposition short-term general hospital (02) ==
LOC: MRI 16:20
PROVIDERS: PCP Family Medicine; Referring Provider Otolaryngology Otolaryngology/Facial Plastic Surgery; Visit Provider Otolaryngology Otolaryngology/Facial Plastic Surgery
DX: D33.3 Benign neoplasm of cranial nerves (principal)
CPT/HCPCS: 70553; A9575

== ENCOUNTER → 2021-11-06 | Outpatient (CLI) | payer OTHER, SELFPAY ==
[2021-11-06 18:00] LABS: Absolute Lymphocyte Count 1.43 X10^3/uL (0.83-4.51); Absolute Neutrophil Count 3.4 X10^3/uL (2.0-7.7); Basophil# 0.03 X10^3/uL; Basophil% 0.5 % (0-1); Eosinophil# 0.33 X10^3/uL; Eosinophils% 5.8 % (0-5); Hematocrit 41.9 % (37-47); Hemoglobin 13.6 g/dL (12.0-15.0); Lymphocyte # 1.43 X10^3/ul (0.83-4.51); Lymphocyte % 25.3 % (19-41); Mean Corp Hgb Conc 32.5 g/dL (32-36); Mean Corpuscular Hgb 30.1 pg (27.0-32.0); Mean Corpuscular Volume 92.7 fL (81-99); Mean Platelet Vol. 10.6 fl (6.2-12.0); Monocyte# 0.41 X10^3/uL; Monocyte% 7.3 % (0-10); NRBC Flagged by Analyzer 0 % (0-5); Neutrophil # 3.44 X10^3/uL (2.7-7.7); Neutrophil % 60.9 % (47-70); Platelet Count 238 K/mm3 (150-450); RBC Distribution Width CV 12.5 % (11.6-14.6); Red Blood Count 4.52 M/mm3 (4.2-5.4); White Blood Count 5.7 K/mm3 (4.4-11.0)
[2021-11-06 18:26] LABS: Anion Gap 7 (5-15); BUN 18 mg/dL (7-18); Calcium,Total 9.2 mg/dL (8.5-10.1); Chloride 107 mmol/L (98-107); Creatinine, Serum 0.82 mg/dL (0.55-1.02); EST Glomerular Filtration Rate 77 mL/min (>60); Est Glom Filt Rate - Afr Amer 93 mL/min (>60); Glucose 112 mg/dL (74-106); Potassium 3.5 mmol/L (3.5-5.1); Sodium Level 142 mmol/L (136-145)
== END | disposition home or self-care (01) ==
LOC: MFPLAB 15:13
PROVIDERS: PCP Family Medicine; Visit Provider Family Medicine
DX: Z01.818 Encounter for other preprocedural examination (principal)
CPT/HCPCS: 36415; 80048; 85025

== ENCOUNTER → 2021-12-18 | Outpatient (CLI) | payer OTHER, SELFPAY ==
[2021-12-18 15:11] LABS: Bacteria 0 SEEN /hpf (None Seen); Mucous, Urine 0 SEEN /hpf (<or=2+)
[2021-12-18 15:16] LABS: Color, Urine Yellow (Yellow); Glucose, Dipstick Normal (Normal); Ketone-Dipstick Negative (Negative); Leukocyte Esterase-Dipstick 25 /ul (Negative); Nitrite-Dipstick Negative (Negative); Occult Blood-Urine 50 /ul (Negative); Protein-Dipstick 30 mg/dl (Negative); Specific Gravity, Urine 1.015 (1.002-1.030); Urine Bilirubin Dipstick Negative (Negative); Urine Clarity Clear (Clear); Urine Urobilinogen Normal (Normal)
[2021-12-18 15:32] LABS: Calcium Oxalate Crystals Ur 1+ /hpf (<or=2+); Red Blood Cells-Urine 0-5 SEEN /hpf (0-5); Squamous Epithelial Cells - UA 0-5 SEEN /hpf (5-10); White Blood Cells 0-5 SEEN /hpf (0-5)
== END | disposition home or self-care (01) ==
LOC: LABSPEC 15:00
PROVIDERS: PCP Family Medicine; Visit Provider Physician Assistant Surgical
DX: R35.0 Frequency of micturition (principal)
CPT/HCPCS: 81001; 87086; 87088

== ENCOUNTER → 2022-01-10 | Outpatient (CLI) | payer OTHER, SELFPAY ==
--- NOTE | 2022-01-10 09:30 | CYSPIN_PTH ---
PATIENT: ARYAN AHN [facility] U#:[id number] AGE/SX: 56/F ROOM: RE01/10/[address]: Dr. April Nicole MD : 1965 BED: DIS: 01/10/2022 SPEC #: [id number] RECD: 01/11/22 07:59 STATUS: CAYDEN RAYMONDAgustín #: [id number] BENJAMIN: 01/10/22 09:[address]: April Nicole DEPT: CYTOLOGY RECD BY: Caty King ENTERED: 01/11/22 07:59 SP TYPE: CYSPIN FL OTHR DR: Dr. Jimbo Dash MD Tissues: Urine Procedures: Pap Stain (control) Special Stain Group II Cytospin Fluid HEADER OPERATION: Not noted PRE-OP DIAGNOSIS: Gross hematuria TISSUE SUBMITTED: Urine for cytology DIAGNOSIS CYTOLOGY Urine for cytology (cytospin): Negative for malignant cells (April Cytology Category II). Acute inflammation. See comment. SJ:yaw 01/11/2022 COMMENT Clinical correlation and appropriate follow up are necessary. The April System for urine cytology diagnostic categorization was used in the evaluation of this case. CYTOLOGY STUDY Slides are reviewed. CYTOLOGY GROSS Received is 15 ml of yellow cloudy fluid labeled with the patient's name and and designated per the requisition as urine. Submitted for cytology preparation. / yaw 01/10/2022 TC:2 CPT: 87112
[2022-01-10 15:19] LABS: Cytology, Body Fluid / CSF SEE PATHOLOGY REPORT
== END | disposition home or self-care (01) ==
PROVIDERS: PCP Family Medicine; Visit Provider Urology
DX: R31.0 Gross hematuria (principal)
CPT/HCPCS: 88108; 88313

== ENCOUNTER 2022-02-09 06:51 | Day surgery (SDC) | payer OTHER, SELFPAY ==
[2022-02-09 06:49] VITALS: BP 123/76; PULSE 75; RESP 16; TEMP 36.4; O2SAT 99; BMI 25.4
--- NOTE | 2022-02-09 06:53 | PCM.HP.BLA ---
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 Is patient in pain?: No Allergies hydrocodone [From Vicodin] Allergy (Verified 11/21/21 13:43) Nausea/Vom/Diarrhea Medications sertraline 100 mg tablet 50 mg PO BID anxiety 03/30/14 [History Confirmed 11/21/21] pitavastatin calcium 1 mg tablet 2 mg PO QHS cholesterol 05/15/16 [History Confirmed 11/21/21] apixaban 5 mg tablet 5 mg PO BID blood clots 05/05/19 [History Confirmed 11/21/21] Cholecalciferol (Vitamin D3) [Vitamin D3] 5,000 unit PO DAILY supplement 03/07/20 [History Confirmed 11/21/21] ascorbic acid (vitamin C) 1,000 mg tablet 1,000 mg PO DAILY supplement 03/07/20 [History Confirmed 11/21/21] cyanocobalamin (vitamin B-12) 5,000 mcg disintegrating tablet 3,000 mcg PO DAILY supplement 03/07/20 [History Confirmed 11/21/21] omeprazole 20 mg tablet,delayed release 20 mg PO DAILY reflux 03/07/20 [History Confirmed 11/21/21] PFSH Medical History?(Updated 11/21/21 @ 14:[address] Tony Jasmine MD) Anemia Anxiety Surgical History?(Updated 11/21/21 @ 13:41 by Sahra Hunt) S/p bilateral carpal tunnel release S/P bunionectomy S/P cholecystectomy S/P hysterectomy S/P rotator cuff repair Family History?(Updated 11/21/21 @ 13:42 by Sahra Hunt) Mother Colon cancer Cancer ?? ? ovary DiabetesFather Hypertension Social History?(Updated 05/05/19 @ 12:[address] Leigha Edward, DO) Smoking Status:? Never smoker alcohol intake:? never HPI HPI HPI: ARYAN AHN, is a 56 F who presents to the office today for surgical consultation regarding pursuing a screening colonoscopy.? The patient is referred by Dr. Jimbo Dash and a written copy my surgical consult recommendations will return to him.? Patient has had a history of DVT and is on chronic Eliquis therapy.? April 2021 the patient contracted COVID-19 and did take monoclonal antibody treatment. The patient's previous colonoscopy was 10 years ago.? She states that her mother had colon cancer she is thinking in her late 60s.? The patient's mother also had with ovarian cancer prior to that.? The patient states that she is not in trouble with abdominal pain bright red blood per rectum or melena.? No unexpected weight loss. The patient has had lower extremity DVT related to car travel but then she had to spontaneous episodes and so she is on chronic lifelong Eliquis.? She is just had right wrist surgery done at [facility].? They had her off her Eliquis for 5 full days preop.? She states that she has to wear a wrist splint for 12 weeks. ROS General General: No weight change, appetite, fatigue, colon cancer, breast cancer or weakness HEENT HEENT: No difficulty swallowing, eye injury, eye surgery, swollen glands or hoarseness Endo Endocrine: No thyroid disease, diabetes mellitus, thyroid cancer, Hair loss, heat intolerance or cold intolerance Skin Skin: No rash or changing moles Breast Breast: No left breast lump, right breast lump, nipple discharge, breast pain, abnormal mammogram, abnormal US or breast enlargement Musc Musculoskeletal: Yes arthritis; No back problems, rheumatoid arthritis, gout or joint pain Cardio Cardiovascular: No murmur, pacemaker, heart disease, atrial fibrillation, high blood pressure, heart attack, heart stent, palpitations, shortness of breat with exertion or chest pain Psych Psychiatric: Yes anxiety; No depression or hearing voices Resp Respiratory: No shortness of breath, No sleep apnea, No cough, No COPD, No asthma, No emphysema and No wheezing Gastro Gastrointestinal: No abdominal pain, No nausea or vomiting, No diarrhea, Yes constipation, No blood in stool, No acid reflux, No hemorrhoids, No ulcers, No gallbladder problem and No black,tarry stools Fito Hematologic: Yes blood thinners, No blood disorders, No bleeding, No anemia and No blood clots Additional Details: Eliquis Neuro Neurologic: No system reviewed and no additional complaints, except as documented, No as per HPI, No abnormal gait, No abnormal hearing, No abnormal movements, No abnormal speech, No behavioral changes, No burning sensations, No confusion, No convulsions, No disequilibrium, No dizziness, No localized weakness, No frequent falls, No headache(s), No lack of coordination, No loss of vision, No memory loss, No numbness, No other visual disturbances, No radicular pain, No restless legs, No sensory deficit, No syncope, No tingling, No tremor(s), No weakness and No other Exam Const General: cooperative, comfortable and no acute distress [facility] Head: normal to inspection Eyes General: appearance normal, both eyes and all related structures Chest Chest palpation & inspection: normal inspection of the chest Resp Effort & Inspection: normal respiratory effort Auscultation: clear to auscultation bilaterally Cardio Rate: regular rate Rhythm: regular rhythm GI Inspection: normal to inspection Palpation: soft and no hepatosplenomegaly Musc Cervical Spine: normal cervical lordosis Neuro General: patient alert and patient awake Extrem General: no calf tenderness Psych Appearance: grossly normal Assessment and Plan Assessment and Plan (1) Family history of colon cancer in mother: ?Status:?Acute ?Plan: Patient's previous colonoscopy was 10 years ago.? Family history of colon cancer in her mother.? I propose for her a colonoscopy with possible biopsy or polypectomy as indicated.? She is aware of the technique, benefit, risk and alternatives. As she is just recently had orthopedic right wrist surgery and she has a follow-up appointment with that surgeon next week we will have her inquire regarding the timing of us proceeding.? I would not want to proceed for at least 6 weeks as a standard colonoscopy has the potential of transient bacteremia.? We will provide her with bowel prep instructions.? She will contact us after her visit with her orthopedist and will notify us as to how we should proceed. Copy: Dr. Jimbo Jasmine M.D., F.A.C.S. The patient had right hand surgery. This is what delayed her in proceeding with her colonoscopy. Hand surgery went well without complication. 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 She has held that now for 2 days. She has had no change in her presentation no change in her wellness. History and physical was reviewed. We will proceed as noted with planned colonoscopy. Tony Jasmine M.D., F.A.C.S.
[2022-02-09] MEDS: Lactated Ringers 1,000 ML 15 ML IV (06:54)
[2022-02-09 07:49] VITALS: BP 106/65; BP 123/76; PULSE 76; RESP 14; TEMP 37; O2SAT 95
--- NOTE | 2022-02-09 07:51 | OP.COLON_ITS ---
Patient Name: Karolina Amaya Procedure Date: 02/09/2022 7:25 AM Date of : 1965 Age: 56 Procedure: Colonoscopy Indications: Family history of colon cancer in a first-degree relative Providers: Tony Jasmine MD Referring MD: Jimbo Dash MD Medicines: See the Anesthesia note for documentation of the administered medications Patient Profile: Last Colonoscopy: 10 years ago. Complications: No immediate complications. Procedure: Pre-Anesthesia Assessment: - Prior to the procedure, a History and Physical was performed, and patient medications and allergies were reviewed. The patient's tolerance of previous anesthesia was also reviewed. The risks and benefits of the procedure and the sedation options and risks were discussed with the patient. All questions were answered, and informed consent was obtained. Prior Anticoagulants: The patient has taken Eliquis (apixaban), last dose was 2 days prior to procedure. ASA Grade Assessment: II - A patient with mild systemic disease. After reviewing the risks and benefits, the patient was deemed in satisfactory condition to undergo the procedure. After I obtained informed consent, the scope was passed under direct vision. Throughout the procedure, the patient's blood pressure, pulse, and oxygen saturations were monitored continuously. The colonoscope was introduced through the anus and advanced to the cecum, identified by appendiceal orifice and ileocecal valve. The colonoscopy was performed without difficulty. The patient tolerated the procedure well. The quality of the bowel preparation was poor. The ileocecal valve was photographed. Scope In: 7:31:44 AM Scope Withdrawal Time 0 hours 6 minutes 50 seconds Scope Out: 7:44:39 AM Total Procedure Duration Time 0 hours 12 minutes 55 seconds Findings: Hemorrhoids were found on perianal exam. A few diverticula were found in the sigmoid colon. A moderate amount of semi-liquid stool was found in the proximal transverse colon and in the ascending colon, precluding visualization. Impression: - Preparation of the colon was poor. - Hemorrhoids found on perianal exam. - Diverticulosis in the sigmoid colon. - Stool in the proximal transverse colon and in the ascending colon. - No specimens collected. Recommendation: - Discharge patient to home. - Resume previous diet. - Continue present medications. - Repeat colonoscopy in 5 years for surveillance. Procedure Code(s): --- Professional --- 99481, Colonoscopy, flexible; diagnostic, including collection of specimen(s) by brushing or washing, when performed (separate procedure) Diagnosis Code(s): --- Professional --- K64.9, Unspecified hemorrhoids Z80.0, Family history of malignant neoplasm of digestive organs K57.30, Diverticulosis of large intestine without perforation or abscess without bleeding CPT copyright 2017 [employer]. All rights reserved. The codes documented in this report are preliminary and upon hims coder review may be revised to meet current compliance requirements. Tony Jasmine MD 02/09/2022 7:50:13 AM This report has been signed electronically. Number of Addenda: 0 Note Initiated On: 02/09/2022 7:25 AM
--- NOTE | 2022-02-09 07:51 | OP.CCLET_ITS ---
02/09/2022 Jimbo Dash MD [address] [place] [address] Re : Colonoscopy procedure for Karolina Amaya Dear Dr. Dash This procedure was performed on Wednesday, February 09, 2022. My impressions and recommendations are as follows: Impressions : - Preparation of the colon was poor. - Hemorrhoids found on perianal exam. - Diverticulosis in the sigmoid colon. - Stool in the proximal transverse colon and in the ascending colon. - No specimens collected. Recommendations : - Discharge patient to home. - Resume previous diet. - Continue present medications. - Repeat colonoscopy in 5 years for surveillance. My findings are described in the full procedure note, which is enclosed. If I can be of further assistance, please feel free to contact me at Doctor phone number(s): Work: . Sincerely, Tony Jasmine MD 02/09/2022 7:50:13 AM This report has been signed electronically.
[2022-02-09 07:55] VITALS: BP 105/63; BP 123/76; PULSE 75; RESP 14; O2SAT 96
[2022-02-09 08:00] VITALS: BP 108/63; BP 123/76; PULSE 64; RESP 16; O2SAT 100
[2022-02-09 08:04] VITALS: BP 112/67; BP 123/76; PULSE 62; RESP 16; TEMP 36.7; O2SAT 99
[2022-02-09 08:10] VITALS: BP 123/76
== END 2022-02-09 08:47 | disposition home or self-care (01) ==
LOC: EN 06:51 → AC 06:51
PROVIDERS: PCP Family Medicine; Referring Provider Family Medicine; Visit Provider Surgery
PROC: 0DJD8ZZ Inspection of Lower Intestinal Tract, Via Natural or Artificial Opening Endoscopic (ICD-10-PCS; CPT 45378; principal; 2022-02-09 07:25)
DX: Z12.11 Encounter for screening for malignant neoplasm of colon (principal); K57.30 Diverticulosis of large intestine without perforation or abscess without bleeding; K64.9 Unspecified hemorrhoids; F41.9 Anxiety disorder, unspecified; Z79.01 Long term (current) use of anticoagulants; Z79.899 Other long term (current) drug therapy; Z80.0 Family history of malignant neoplasm of digestive organs
CPT/HCPCS: 45378

== ENCOUNTER → 2022-02-12 | Outpatient (CLI) | payer OTHER, SELFPAY ==
--- NOTE | 2022-02-12 18:58 | CT_ITS ---
STUDY: CT ABDOMEN AND PELVIS WITH AND WITHOUT CONTRAST REASON FOR EXAM: Female, 56 years old. HEMATURIA RADIATION DOSAGE (If Supplied By Facility): CTDIvol = ( 12.61 ) mGy, DLP = ( 2090.46 ) mGycm TECHNIQUE: Transaxial images were obtained from the dome of the diaphragm to the symphysis pubis without oral contrast. Images were obtained pre and post administration of IV 100mL Isovue-300 . Sagittal and coronal images were reconstructed. Individualized dose optimization techniques were used for this CT. COMPARISON: 04/03/2019 FINDINGS: The visualized lung bases are unremarkable. The visualized portions of the heart are within normal limits. Within the right hepatic lobe there is a stable 4.7 x 2.9 cm low-attenuation focus with peripheral nodular enhancement consistent with a hemangioma. There is non-visualization of the gallbladder, which may be secondary to either contraction or a prior cholecystectomy. There is a stable too small to characterize low-attenuation focus within the left hepatic lobe. Normal spleen. Normal pancreas. Normal bilateral adrenal glands. Normal right kidney. Normal left kidney. Normal visualized stomach. Normal small intestine. There is a moderate amount of stool throughout the colon and rectum. The appendix is visualized and appears normal. Normal abdominal aorta. Normal inferior vena cava. Normal retroperitoneum. There is focal thickening of the right anterior urinary bladder wall measuring up to 1.0 x 2.6 cm, previously measuring 0.4 x 1.2 cm. There is an adjacent calcification within the anterior urinary bladder right of midline. Normal abdominal wall. There are diffuse degenerative changes of the visualized lumbar spine. CT/CT Abd/Pelvis W/WO Contrast IMPRESSION: Interval increase of focal thickening within the urinary bladder, cannot exclude underlying neoplastic processes, consider direct visualization. Moderate amount of stool throughout the colon and rectum. Stable hepatic hemangioma. Degenerative changes of the lumbar spine. Electronically Signed: Nighat Figueroa MD at 8:25 EDT ,
== END | disposition home or self-care (01) ==
LOC: CT 18:56
PROVIDERS: PCP Family Medicine; Referring Provider Urology; Visit Provider Urology
DX: R31.0 Gross hematuria (principal)
CPT/HCPCS: 74178; Q9967

== ENCOUNTER 2022-02-15 06:00 | Day surgery (SDC) | payer OTHER, SELFPAY ==
--- NOTE | 2022-02-14 | CALC_PTH ---
PATIENT: ARYAN AHN LOC: [facility] U#:[id number] AGE/SX: 56/F ROOM: RE02/15/[address]: Dr. April Nicole MD : 1965 BED: DIS: 02/15/2022 SPEC #: [id number] RECD: 02/15/22 08:24 STATUS: CAYDEN CHAN #: [id number] BENJAMIN: 02/14/22 00:[address]: April Nicole DEPT: SURGICAL PATHOLOGY RECD BY: Caty King ENTERED: 02/15/22 10:18 SP TYPE: Calculi OTHR DR: Dr. Jimbo Dash MD Tissues: CALCULI Procedures: Surgery Specimen Level I HEADER OPERATION: Cysto, pelvic exam / removal bladder stone, laser lithotripsy PRE-OP DIAGNOSIS: Other lower urinary tract calculus TISSUE SUBMITTED: Bladder stone GROSS DIAGNOSIS Urinary bladder stone, removal: Fragments of unremarkable calculi (gross diagnosis only). AM:yaw 02/19/2022 COMMENT The calculus is submitted in its entirety for chemical stone analysis. The results from this study will be reported separately. GROSS DESCRIPTION Received without fixative labeled with the patient's name and designated bladder stone. The specimen consists of multiple black calculi measuring in aggregate 1 x 0.2 x 0.1 cm. The entire specimen is submitted for stone analysis. / AM:yaw 02/15/2022 CPT: 70682
[2022-02-15] VITALS (7 sets, daily range): BP systolic 104–123; BP diastolic 64–76; PULSE 64–95; RESP 16–18; TEMP 36.6–37; O2SAT 94–98; BMI 25.7
[2022-02-15] MEDS: Lactated Ringers 1,000 ML 15 ML IV (06:33)
[2022-02-15] MEDS: Cefazolin 2 GM in 0.9% Normal Saline 100 ML IV (07:35)
--- NOTE | 2022-02-15 08:20 | DCINST_ITS ---
Discharge Instructions Diet Discharge Diet: No restrictions Activity Discharge Activity: Return to Normal Activity Dressing / Incision Call your doctor if you observe: Fever of 101 or Higher, Inability to urinate and Inability to have a bowel movement Follow Up Care Please Follow Up With: April Nicole MD When: Call office for instructions Test Results: Test results from this visit will be discussed in further detail at your follow- up appointment, if applicable. Discharge Plan Admission Attending Provider: April Nicole Primary Care Provider: Jimbo Dash Discharge Orders/Prescriptions Prescriptions: New acetaminophen-codeine [acetaminophen-codeine] 300-30 mg tablet 1 - 2 tab PO Q6H PRN PRN (Reason: Pain Score 6-10/10) 3 Days Qty: 10 0RF Continued sertraline 100 MG tablet 50 mg PO BID Label Comments: ANXIETY apixaban 5 MG tablet 5 mg PO BID Label Comments: stop 5 days preop cyanocobalamin (vitamin B-12) 5,000 MCG tablet,disintegrating 3,000 mcg PO DAILY Cholecalciferol (Vitamin D3) [Vitamin D3] 5,000 UNIT capsule 5,000 unit PO DAILY omeprazole 20 MG tablet,delayed release (DR/EC) 20 mg PO QHS magnesium 200 mg Tablet 200 mg PO DAILY vitamin B6-vitamin E-magnesium Tablet 1 tab PO DAILY Livalo 2 mg Tablet 2 mg PO QPM Referrals / Follow Up: Jimbo Dash MD [Primary Care Provider] - Disposition Disposition (needs filled in before D/C Order can be placed): Home, Self Care
--- NOTE | 2022-02-15 08:22 | PCM.OPRPT ---
Report of Operation Date of Procedure: 02/15/22 Pre-Operative Diagnosis: Foreign body bladder with stone Post-Operative Diagnosis: Same Surgery/Procedure Performed:: Cystoscopy, laser lithotripsy of stone in the bladder with removal bladder stone fragments Surgeon: April Nicole Type of Anesthesia: General Description of Procedure: The patient is a 56-year-old female with a history of a mid urethral sling insertion over 10 years ago who presented initially in 2019 with a small bladder calculus on the anterior wall of her bladder. This was removed along with a piece of mesh. She represented with lower urinary tract symptoms and on evaluation was found to have a larger calculus in the same similar location. The goal of today was to remove the stone and further evaluate the apparently remaining foreign body. Informed consent was obtained. The patient was taken to the operating room and placed on the operating room table. Anesthesia monitored the head, neck, airway, IV access and vital signs throughout the case. Once anesthesia was appropriately administered, the patient was prepped and draped in usual sterile fashion. The cystoscope was inserted through the urethra under direct visualization into the urinary bladder. There was no urethral exposure of mesh. At this time the bladder was filled and on the anterior wall there is obvious calculus approximately 1 cm in size. There is a significant amount of edema surrounding the calculus. There was no mucosal changes consistent with a cancer, it all appeared to be consistent with chronic irritation from the stone. The holmium laser was used to remove as much of the stone as possible. Due to the edema and the location, I was unable to identify any of the foreign body causing this issue. After the stone fragments were removed and hemostasis was visualized, the patient's bladder was emptied and she was awakened and taken to the recovery room in good condition. There were no complications during this procedure. Complications None Admit VTE Documentation VTE Present on Admission: Yes VTE Mechan Device Prophylaxis: SCD's VTE Pharm Prophylaxis ordered?: No Reason prophylaxis not ordered:: Treatment Not Indicated
[2022-03-04 18:04] LABS: Source URINARY BLADDER
== END 2022-02-15 10:19 | disposition home or self-care (01) ==
LOC: SDC 06:01 → AC 06:01
PROVIDERS: PCP Family Medicine; Referring Provider Urology; Visit Provider Urology
PROC: 0TJB8ZZ Inspection of Bladder, Via Natural or Artificial Opening Endoscopic (ICD-10-PCS; CPT 57410; principal; 2022-02-15 07:20)
DX: N21.0 Calculus in bladder (principal); N35.82 Other urethral stricture, female; N95.2 Postmenopausal atrophic vaginitis; R31.0 Gross hematuria; K21.9 Gastro-esophageal reflux disease without esophagitis; Z79.01 Long term (current) use of anticoagulants; Z79.899 Other long term (current) drug therapy
CPT/HCPCS: 52353; 00918; 82360; 88300; J7120; J2405

== ENCOUNTER → 2022-05-09 | Outpatient (CLI) | payer OTHER, SELFPAY ==
--- NOTE | 2022-05-09 14:08 | VDLE_ITS ---
Reason For Study: LEG SWELLING RIGHT LEFT CFV is compressible, spontaneous, phasic, CFV is compressible, spontaneous, phasic, competent and demonstrates normal competent, and demonstrates normal augmentation. augmentation. FV is compressible, spontaneous, phasic, FV is compressible, spontaneous, phasic, competent and demonstrates normal competent and demonstrates normal augmentation. augmentation. POP V is compressible, spontaneous, phasic, POP V is compressible, spontaneous, phasic, competent and demonstrates normal competent and demonstrates normal augmentation. augmentation. T/P Trunk is compressible. T/P Trunk is compressible. PTV is compressible. PTV is compressible. RT PerV is compressible. LT PerV is compressible. SFJ is INCOMPETENT and measures 1.01 x 1.02 SFJ is competent and measures 0.51 x 0.56 cm. cm. GSV proximal thigh measures 0.23 x 0.26 cm. GSV proximal thigh measures 0.28 x 0.26 cm. GSV at knee measures 0.25 x 0.26 cm. ASV proximal thigh is INCOMPETENT for greater GSV above knee is competent. than 0.5 seconds and measures 0.43 x 0.51 cm. GSV prox calf is INCOMPETENT for greater than ASV distal thigh is INCOMPETENT for greater 0.5 seconds and measures 0.43cm. than 0.5 seconds and measures 0.23 x 0.25 cm. ASV mid calf is INCOMPETENT for greater than GSV above knee is competent. 0.5 seconds and measures 0.35 x 0.35 cm. Rt GSV is INCOMPETENT at knee for greater GSV below knee is INCOMPETENT for greater than 0.5 seconds and measures 0.31 x 0.37cm. than 0.5 seconds. Multiple tortuous accessory branches noted SSV proximal calf is competent and measures throughout RT LE at knee. 0.24 x 0.21 cm. GSV below knee is competent. SSV proximal calf is competent and measures 0.27 x 0.28 cm. Procedure This is a venous duplex using B-mode, color flow and spectral Doppler. Exam performed in department. The exam was diagnostic. VL/Venous Duplex US - Italo Extrem Interpretation Summary Deep veins of the bilateral lower extremities are patent and compressible segme ntally. There is no evidence of bilateral lower extremity deep vein thrombosis. The bilateral great saphenous veins appear patent and compressible segmentally. Positive for reflux in the right accessory saphenous and greater saphenous vein s. Positive for reflux in the left accessory saphenous and greater saphenous veins Ordering Physician: Martine Nguyen Referring Physician: Martine Nguyen Performed By: River Leblanc RVT
== END | disposition home or self-care (01) ==
LOC: CVS 14:07
PROVIDERS: PCP Family Medicine; Referring Provider Physician Assistant; Visit Provider Physician Assistant
DX: I83.90 Asymptomatic varicose veins of unspecified lower extremity (principal); Z86.718 Personal history of other venous thrombosis and embolism; M79.89 Other specified soft tissue disorders
CPT/HCPCS: 93970

== ENCOUNTER → 2022-08-01 | Outpatient (CLI) | payer OTHER, SELFPAY ==
[2022-08-01 16:09] LABS: ALB/GLOB Ratio 1.1 RATIO (0.9-2.4); AST(SGOT) 21 U/L (15-37); Alanine Aminotransfer ALT/SGPT 33 U/L (13-56); Albumin, Serum 3.7 g/dL (3.2-5.0); Alkaline Phosphatase 130 U/L (45-117); Anion Gap 6 (5-15); BUN 18 mg/dL (7-18); Calcium,Total 9.3 mg/dL (8.5-10.1); Chloride 109 mmol/L (98-107); Cholesterol 251 mg/dL (200); EST Glomerular Filtration Rate 69 mL/min (>60); Est Glom Filt Rate - Afr Amer 83 mL/min (>60); Globulin 3.3 g/dL (2.2-4.2); Glucose 83 mg/dL (74-106); High Density Lipoprotein 66 mg/dL; Sodium Level 140 mmol/L (136-145); Triglycerides 134 mg/dL; Very Low Density Lipoprotein 27 mg/dL (5-40)
== END | disposition home or self-care (01) ==
LOC: MFPLAB 12:07
PROVIDERS: PCP Family Medicine; Referring Provider Family Medicine; Visit Provider Family Medicine
DX: E78.5 Hyperlipidemia, unspecified (principal)
CPT/HCPCS: 36415; 80053; 80061

== ENCOUNTER → 2022-08-08 | Outpatient (CLI) | payer OTHER, SELFPAY ==
--- NOTE | 2022-08-08 10:31 | RAD_ITS ---
INDICATION: Hip pain EXAMINATION/TECHNIQUE: X-RAY - AP pelvis and 2 views of each hip. COMPARISON: 10/03/2020 FINDINGS: PELVIC BONES: No displaced fracture, destructive or sclerotic lesions. Note that overlapping bowel shadows may however obscure fine detail. Sacroiliac joints are unremarkable. No widening of the pubic symphysis. HIPS: The articular structures are unremarkable. No displaced fracture seen in this frontal view. SOFT TISSUES: No soft tissue swelling or gas. RAD/Hips B/L min 2 views w/ Pelvis IMPRESSION: No evidence of displaced pelvic or hip fracture. Electronically Signed: Thomas Stratton MD at 10:48 EDT ,
--- NOTE | 2022-08-08 11:06 | RAD_ITS ---
STUDY: X-RAY - RIGHT FOOT CLINICAL: Female, 57 years old. Pain. History of fusion. TECHNIQUE: 3 view(s) of the foot. COMPARISON: April 2017. FINDINGS: Osteopenia. Mild arthrosis of the midfoot. Hallux valgus repair of the first metatarsal with minimal deformity and healed osteotomy site. Lateral plate and screw fixation of the proximal phalanx of the first digit unchanged. Removal of 10 in the second digit at the PIP joint. Deformity of the head of the second metatarsal with 2 cancellous screws unchanged. Mild arthrosis of the MTP and IP joints, most marked at the first MTP joint, with hammertoe deformities, unchanged. . Normal soft tissues. RAD/Foot min 3 Views IMPRESSION: Removal of pin from second PIP joint. Postsurgical changes of the first and second toes with no acute abnormality or complication. Electronically Signed: Pablito Gupta, at 11:39 EDT ,
== END | disposition home or self-care (01) ==
PROVIDERS: PCP Family Medicine; Referring Provider Family Medicine; Visit Provider Family Medicine
DX: M79.671 Pain in right foot (principal); M25.559 Pain in unspecified hip
CPT/HCPCS: 73521; 73630

== ENCOUNTER → 2022-08-16 | Outpatient (CLI) | payer OTHER, SELFPAY ==
--- NOTE | 2022-08-16 14:06 | CT_ITS ---
STUDY: CTA ABDOMEN AND PELVIS WITH CONTRAST REASON FOR EXAM: Female, 57 years old. Concern for possible MTS, PCS, nutcracker syndrome -- Please perform venous phase if possible RADIATION DOSAGE (If Supplied By Facility): CTDIvol = ( 23.62 ) mGy, DLP = ( 1449.24 ) mGycm TECHNIQUE: Transaxial images were obtained from the dome of the diaphragm to the symphysis pubis without oral contrast. IV 100mL Isovue-370 was administered. Sagittal and coronal images were reconstructed. Individualized dose optimization techniques were used for this CT. COMPARISON: Comparison is made with prior study February 12, 2022. FINDINGS: Mild degree of dependent bibasilar atelectasis. The visualized portions of the heart are within normal limits. Stable 3.6 x 2 x 1.9 cm low-attenuation density with peripheral nodular enhancement suggestive of an hemangioma. The patient is status post cholecystectomy. Normal spleen. Normal pancreas. Normal bilateral adrenal glands. Normal right kidney. Normal left kidney. Normal visualized stomach. Normal small intestine. Normal colon. The appendix is visualized and appears normal. Normal abdominal aorta. Normal inferior vena cava. Normal retroperitoneum. Normal urinary bladder. There is absence of the uterus consistent with a prior hysterectomy. Normal abdominal wall. There are degenerative changes of the visualized lumbar spine. CT/CTA Abd/Pelvis W/WO Contrast IMPRESSION: Stable finding in the right lobe of the liver suggestive of an hemangioma. Status post cholecystectomy and hysterectomy. Electronically Signed: Sony Arvizu MD at 15:23 EDT ,
== END | disposition home or self-care (01) ==
LOC: CT 14:05
PROVIDERS: PCP Family Medicine; Referring Provider Physician Assistant; Visit Provider Physician Assistant
DX: I83.893 Varicose veins of bilateral lower extremities with other complications (principal); I86.3 Vulval varices; Z86.718 Personal history of other venous thrombosis and embolism
CPT/HCPCS: 74174; Q9967

== ENCOUNTER 2022-10-03 07:10 | Day surgery (SDC) | payer OTHER, SELFPAY ==
[2022-10-02 08:48] VITALS: BMI 25.7
--- NOTE | 2022-10-03 07:06 | PCM.HP.STD ---
[facility] - [facility] General Date of Service: 10/03/22 Chief Complaint: Symptomatic varicose veins, recurrent DVT [facility] Narrative ARYAN AHN, is a 57 F who presents today for venogram possible intervention. She has painful varicosities of the R thigh, buttock, and pelvic region which are persistent despite adequate compression. Her history is also significant for recurrent RLE DVT for which she currently takes Eliquis 2.5mg BID (managed by hematology). Venogram will be performed to evaluate for central venous compression which could be contributing to her presentation. She has a history of vein stripping several years ago. She has a history of microhematuria and bladder stones (CT ruled out nutcracker syndrome). Otherwise, she has no significant medical history including CAD/MA, COPD/asthma, CKD, CVA/TIA. She has no complaints today. Denies SOB, CP, F/C, N/V, palpitations, syncope. [facility]LY [facility] Medical History Anemia Anxiety Arthritis Bladder disease Difficulty swallowing DVT (deep venous thrombosis) Gastric reflux History of echocardiogram History of pain when walking History of stress test Leg cramps Loss of hearing Non-smoker Restless legs Wears glasses Home Medications sertraline 100 mg tablet 50 mg PO BID anxiety 03/30/14 [History Last Taken 02/14/22] Cholecalciferol (Vitamin D3) [Vitamin D3] 5,000 unit PO DAILY supplement 03/07/20 [History Last Taken 02/14/22] cyanocobalamin (vitamin B-12) 5,000 mcg disintegrating tablet 3,000 mcg PO DAILY supplement 03/07/20 [History Last Taken 02/14/22] omeprazole 20 mg tablet,delayed release 20 mg PO QHS reflux 03/07/20 [History Last Taken 02/14/22] magnesium 200 mg tablet 200 mg PO DAILY 02/08/22 [History Last Taken 02/14/22] pitavastatin calcium 2 mg tablet (Livalo) 2 mg PO QPM 02/08/22 [History Last Taken 02/14/22] calcium carbonate 600 mg calcium (1,500 mg) tablet 600 mg PO BID 04/12/22 [History Last Taken Unknown] cetirizine 10 mg capsule (Zyrtec) 10 mg PO DAILY 04/12/22 [History Last Taken Unknown] penciclovir 1 % topical cream (Denavir) 1 applic topical Q2H 04/12/22 [History Last Taken Unknown] apixaban 2.5 mg tablet (Eliquis) 1 tablet PO BID 08/30/22 [History Last Taken 09/19/22] dicyclomine 20 mg tablet 20 mg PO BID 10/02/22 [History Last Taken Unknown] Allergy/AdvReac Type Severity Reaction Status Date / Time hydrocodone [From Vicodin] Allergy Nausea/Vom/ Verified 08/30/22 13:26 Diarrhea oxycodone AdvReac Itching Verified 08/30/22 13:26 Family History Mother Colon cancer Cancer ovary Diabetes Father Hypertension Surgical History Hx of bladder repair surgery Hx of colonoscopy Hx of cystoscopy Hx of shoulder surgery S/p bilateral carpal tunnel release S/P bunionectomy S/P cholecystectomy S/P hysterectomy S/P rotator cuff repair Social History Smoking Status: Never smoker alcohol intake: never ROS ROS Narrative ROS General General: No weight change, appetite, fatigue, colon cancer, breast cancer or weakness HEENT HEENT: No difficulty swallowing, eye injury, eye surgery, swollen glands or hoarseness Endo Endocrine: No thyroid disease, diabetes mellitus, thyroid cancer, Hair loss, heat intolerance or cold intolerance Skin Skin: No rash or changing moles Breast Breast: No left breast lump, right breast lump, nipple discharge, breast pain, abnormal mammogram, abnormal US or breast enlargement Musc Musculoskeletal: No back problems, arthritis, rheumatoid arthritis, gout or joint pain Cardio Cardiovascular: No murmur, pacemaker, heart disease, atrial fibrillation, high blood pressure, heart attack, heart stent, palpitations, shortness of breat with exertion or chest pain Psych Psychiatric: No depression, anxiety or hearing voices Resp Respiratory: No shortness of breath, No sleep apnea, No cough, No COPD, No asthma, No emphysema and No wheezing Gastro Gastrointestinal: No abdominal pain, No nausea or vomiting, No diarrhea, No constipation, No blood in stool, No acid reflux, No hemorrhoids, No ulcers, No gallbladder problem and No black,tarry stools Fito Hematologic: No blood thinners, No blood disorders, No bleeding, No anemia and No blood clots Neuro Neurologic: No system reviewed and no additional complaints, except as documented, No as per HPI, No abnormal gait, No abnormal hearing, No abnormal movements, No abnormal speech, No behavioral changes, No burning sensations, No confusion, No convulsions, No disequilibrium, No dizziness, No localized weakness, No frequent falls, No headache(s), No lack of coordination, No loss of vision, No memory loss, No numbness, No other visual disturbances, No radicular pain, No restless legs, No sensory deficit, No syncope, No tingling, No tremor(s), No weakness and No other Vital Signs Vital Signs Vital Signs: Weight Weight: 145 lb Body Mass Index (BMI) 25.7 Physical Exam Narrative Exam Const General: cooperative, healthy appearing, comfortable, no acute distress and well developed Orientation: alert, awake and oriented x3 HENMT Head: normal to inspection, normocephalic and atraumatic Ears: hearing grossly normal bilaterally and external ears normal Nose: external nose normal Eyes General: appearance normal, both eyes and all related structures EOM: EOM intact bilaterally Neck Neck: normal visual inspection, full ROM, trachea midline and no anterior neck swelling Resp Effort & Inspection: normal respiratory effort, able to speak in complete sentences, symmetric chest movement, no audible wheezes, no cough, not labored, no retractions, no stridor and no use of accessory muscles Auscultation: clear to auscultation bilaterally Cardio Rate: regular rate Rhythm: regular rhythm Pulses: brachial pulses present and radial pulses present Skin General: no rashes or lesions noted, no ecchymosis, no erythema, no eschars, no mottling, no petechiae, no purpura and no pallor Trauma: no lacerations or abrasions Wounds: no wounds Hair: normal Nails: normal Neuro General: patient alert, patient awake, patient oriented x3, gait normal, moves all extremities and CN's II-XI intact bilaterally Sensory Exam: no sensory deficits noted Extremities Pulses: Normal: Right Dorsalis Pedis Pulse, Left Dorsalis Pedis Pulse, Right Posterior Tibial Pulse, Left Posterior Tibial Pulse, Right Radial Pulse and Left Radial Pulse Lower Extremity Edema: Trace: Bilateral Veins: Bilateral: Varicose Veins and Bilateral: Reticular Veins Psych Appearance: grossly normal Mental Status: mental status grossly normal Affect: normal affect Speech and Movement: speech and movement normal Attitude: cooperative Thought Process: normal Thought Content: normal Judgment: judgment good Results Lab / Micro Data Result Diagrams: 10/03/22 07:13 10/03/22 07:13 Assessment & Plan Assessment/Plan (1) Vulvar varicose veins: (2) Symptomatic varicose veins of both lower extremities: PLAN: Plan Proceed with venogram as scheduled today. Further plan pending results/possible intervention. She is scheduled for f/u in the office on 10/25/2022.
[2022-10-03 07:20] LABS: Absolute Lymphocyte Count 1.63 X10^3/uL (0.83-4.51); Absolute Neutrophil Count 2.6 X10^3/uL (2.0-7.7); Basophil# 0.05 X10^3/uL; Eosinophil# 0.42 X10^3/uL; Eosinophils% 8.1 % (0-5); Hematocrit 44.9 % (37-47); Hemoglobin 14.3 g/dL (12.0-15.0); Lymphocyte # 1.63 X10^3/ul (0.83-4.51); Lymphocyte % 31.4 % (19-41); Mean Corp Hgb Conc 31.8 g/dL (32-36); Mean Corpuscular Hgb 29.5 pg (27.0-32.0); Mean Corpuscular Volume 92.6 fL (81-99); Mean Platelet Vol. 9.5 fl (6.2-12.0); Monocyte# 0.45 X10^3/uL; Monocyte% 8.7 % (0-10); NRBC Flagged by Analyzer 0 % (0-5); Neutrophil # 2.61 X10^3/uL (2.7-7.7); Neutrophil % 50.2 % (47-70); Platelet Count 221 K/mm3 (150-450); RBC Distribution Width CV 12.9 % (11.6-14.6); RBC Distribution Width SD 43.6 fl (35.1-43.9); Red Blood Count 4.85 M/mm3 (4.2-5.4); White Blood Count 5.2 K/mm3 (4.4-11.0)
[2022-10-03 07:34] LABS: Anion Gap 1 (5-15); BUN 18 mg/dL (7-18); BUN/Creat Ratio 20.2 RATIO (10-20); Calcium,Total 9.2 mg/dL (8.5-10.1); Chloride 111 mmol/L (98-107); Creatinine, Serum 0.89 mg/dL (0.55-1.02); EST Glomerular Filtration Rate 70 mL/min (>60); Est Glom Filt Rate - Afr Amer 84 mL/min (>60); Estimated Creatinine Clearance 57.69 ml/min; Glucose 93 mg/dL (74-106); Potassium 4.2 mmol/L (3.5-5.1); Sodium Level 141 mmol/L (136-145)
--- NOTE | 2022-10-03 09:59 | PCM.OPRPT ---
Report of Operation Date of Procedure: 10/03/22 Pre-Operative Diagnosis: venous hypertension, painful varicose veins Post-Operative Diagnosis: same, IVC/left common iliac compression Surgery/Procedure Performed:: IVC venogram IVUS IVC, bilateral common iliac, bilateral external iliac veins Angioplasty/stent IVC, bilateral common iliac veins Description of Surgical Findings:: IVC 78% compression Left common iliac 78% compression Surgeon: Reji Goldberg Type of Anesthesia: Local and Sedation,Conscious Estimated Blood Loss (mL): 3 Description of Procedure: HPI: Patient is a 57-year-old female with symptoms of chronic venous hypertension with including vulvar, buttock, and thigh painful varicosities. She presents now for venogram to assess for and potentially treat central venous pathology. Description of procedure: Upon obtaining form consent and verification correct patient procedure and site patient was taken to [facility] where she was positioned prepped and draped in usual sterile fashion. Timeout was then performed conscious sedation ministered with Versed and fentanyl. Skin overlying the right common femoral vein was anesthetized 1% lidocaine and the vessel accessed under ultrasound guidance micropuncture needle and wire in retrograde fashion. This was then exchanged for micropuncture sheath through which injection ilio caval venogram was performed which revealed satisfactory positioning with no extravasation or dissection and widened common iliac vein and significant reflux into the internal iliac vein.. Through the micropuncture sheath Bentson wire is advanced into the inferior vena cava and the micropuncture sheath exchanged out for a 9 [place]ian sheath. Through the 9 [place] sheath intravascular sound was advanced and recorded pullback of the inferior vena cava and the right common iliac, right external iliac veins was performed. Next using a LIYA catheter we navigated the contralateral iliac vein system with the Bentson wire and then exchanged the catheter for intravascular sound probe. Recorded pullback of the left external iliac vein, left common iliac vein, inferior vena cava was performed. This revealed significant compression of the distal IVC and the superior aspect of the left common iliac vein that was not fully visualized. Next the skin over the left common femoral vein was anesthetized with 1% lidocaine and the vessel accessed under ultrasound guidance in retrograde fashion with a micropuncture needle wire. This was then exchanged for micropuncture sheath through which injection ilio caval venogram was performed which again revealed satisfactory positioning with no extravasation or dissection and widening of the common iliac vein with reflux into the internal iliac vein. Through the micropuncture sheath Bentson wire is advanced and the micropuncture sheath exchanged out for a 9 [place]ian sheath. Through the 9 Gambian sheath intravascular sound probe was advanced in the inferior vena cava and recorded pullback of the IVC, left common iliac vein, left external iliac vein was performed which confirmed 78% compression of the inferior vena cava at the confluence as well as 70% of the superior aspect of the left common iliac vein. Joanna this was appropriate for endovascular treatment and mid in order to fully treat the inferior vena cava compression that bilateral iliac vein stents extending into the vena cava were necessary. The patient was then heparinized allowed to circulate 3 minutes after which the 9 [place]ian sheath were exchanged out for 10 Gambian sheath. Given the length of the area required to cover and to get adequate anchoring into the left iliac system 2 stents would be required extending from the vena cava into the superior aspect of the external iliac vein. A [employer] 20 x 80 Wallstent was then brought to field and advanced via the left femoral access sheath. This was then deployed in the common iliac vein extending into the external iliac vein just inferior to the point of compression. This was then postdilated with an 18 mm [place] XXL balloon. Next a second [employer] 20 x 80 Wallstent was then advanced via the left femoral access sheath into the inferior vena cava centered around the area of compression with satisfactory overlap into the initial left iliac stent. A [employer] 18 x 90 Wallstent was then advanced via the right femoral access sheath and aligned with the left sided stent. These were then deployed simultaneously in the inferior vena cava extending down into the common iliac veins. The left sided stent was then postdilated with a 18 mm [employer] XXL balloon in the right side postdilated with a 16 mm [employer] XL balloon. The balloons were then withdrawn and intravascular sound read advanced via each of the femoral access sheath and recorded pullback performed through the stented segments. This revealed resolution of the compression with satisfactory stent wall apposition and positioning. Completion venogram confirmed brisk contrast transit across the new stents with no extravasation or dissection. There is less reflux down into the internal iliac veins. The wires and sheath were then withdrawn and manual pressure held for 10 minutes after which satisfactory stasis was noted. Patient was awake from her sedation taken recovery room for bedrest prior to discharge to home.
[2022-10-03 12:08] LABS: ACT Activated Clotting Time 197 sec (74-137)
== END 2022-10-03 15:05 | disposition home or self-care (01) ==
PROVIDERS: PCP Family Medicine; Referring Provider Surgery Trauma Surgery; Visit Provider Surgery Trauma Surgery
DX: I87.1 Compression of vein (principal); I83.813 Varicose veins of bilateral lower extremities with pain; I86.3 Vulval varices; Z86.718 Personal history of other venous thrombosis and embolism; Z79.01 Long term (current) use of anticoagulants
CPT/HCPCS: 36010; 36415; 37238; 37239; 37252; 37253; 75825; 76937; 80048; 85025; 85347; 99152; 99153; C1725; C1753; C1769; C1876; C1894; J7040; Q9967; C1887; J2405

== ENCOUNTER → 2022-11-05 | Outpatient (CLI) | payer OTHER, SELFPAY ==
[2022-11-05 16:20] LABS: Cholesterol 194 mg/dL (200); High Density Lipoprotein 68 mg/dL; Triglycerides 205 mg/dL; Very Low Density Lipoprotein 41 mg/dL (5-40)
== END | disposition home or self-care (01) ==
LOC: MFPLAB 14:05
PROVIDERS: PCP Family Medicine; Visit Provider Family Medicine
DX: E78.5 Hyperlipidemia, unspecified (principal)
CPT/HCPCS: 36415; 80061

== ENCOUNTER → 2023-04-05 | Outpatient (CLI) | payer OTHER, SELFPAY ==
--- NOTE | 2023-04-05 09:11 | AAVD_ITS ---
Reason For Study: HX Bilateral Iliac Stents Inferior Vena Cava Proximal inferior vena cava measures 1.26 x 1.12 cm. in the cross-sectional axis. Proximal inferior vena cava measures 1.33 cm. in the longitudinal axis. Mid inferior vena cava measures 1.15 x 1.14 cm. in the cross-sectional axis. Mid inferior vena cava measures 1.17 cm. in the longitudinal axis. Distal inferior vena cava measures 1.17 x 1.38 cm. in the cross-sectional axis. Distal inferior vena cava measures 1.00 cm. in the longitudinal axis. The inferior vena cava has spontaneous, phasic flow throughout. Left Common Iliac Vein Left common iliac vein measures 0.94 x 0.95 cm. in the cross-sectional axis. Left common iliac vein measures 1.04 cm. in the longitudinal axis. The left common iliac vein has spontaneous, phasic flow throughout. Stent noted throughout vessel. Right Common Iliac Vein Right common iliac vein measures 0.94 x 0.95 cm. in the cross-sectional axis. Right common iliac vein measures 1.04 cm. in the longitudinal axis. The right common iliac vein has spontaneous, phasic flow throughout. Stent noted throughout vessel. VL/Abd Aortic/IVC Duplex scan Interpretation Summary Patent inferior vena cava and bilateral iliac vein stents with normal flow danielle avril. Ordering Physician: Martine Power Referring Physician: Jimbo Dash Performed By: River Leblanc RVT
== END | disposition home or self-care (01) ==
LOC: CVS 09:11
PROVIDERS: PCP Family Medicine; Referring Provider Physician Assistant; Visit Provider Physician Assistant
DX: I83.893 Varicose veins of bilateral lower extremities with other complications (principal); I87.1 Compression of vein; Z86.718 Personal history of other venous thrombosis and embolism
CPT/HCPCS: 93978

== ENCOUNTER → 2023-04-11 | Outpatient (CLI) | payer OTHER, SELFPAY ==
--- NOTE | 2023-04-11 13:37 | BI_ITS ---
MAMMOGRAPHY - BILATERAL SCREENING REASON FOR EXAM: Female, 57 years old. Routine annual screening examination. PERTINENT HISTORY: Non-contributory. TECHNIQUE: Digital bilateral breast nahid (3D mammographic acquisition) in the CC and MLO projections. 2-D mediolateral oblique (MLO) and craniocaudad (CC) views of both breasts were obtained. CAD: Full Field Digital Mammography with Computer Added Detection was performed. COMPARISON: Comparison is made with prior study dated July 21, 2020. FINDINGS: Breast Composition: The breasts are heterogeneously dense, which may obscure small masses. There are no dominant masses or suspicious calcifications. Stable densely calcified nodule in the deep central portion of the right breast suggestive of a calcified fibroadenoma. No other significant abnormalities are identified. There has been no significant change since the prior study. BI/SCRN MAMM (CAD)W/NAHID BILAT IMPRESSION: Stable bilateral screening mammogram. Yearly follow-up mammogram recommended. (A) ASSESSMENT CATEGORY: BIRADS Category 2: Benign. A letter regarding these results will be sent to the patient by the facility within 30 days. Approximately 10% of breast cancers are not detected by mammography. A normal mammogram should not delay biopsy of a clinically suspicious abnormality. [id number] Electronically Signed: Sony Arvizu MD at 15:09 EST ,
--- NOTE | 2023-04-11 14:06 | BD_ITS ---
STUDY: DUAL ENERGY X-RAY ABSORPTIOMETRY / DXA REASON FOR EXAM: Female, 57 years old. 627.8Menopausal postmenopausal BONE DENSITY REASON FOR EXAM TECHNIQUE: Bone Mineral Density (BMD) measurements of lumbar spine and bilateral hips were obtained. COMPARISON: Comparison is made with prior study February 07, 2021. FINDINGS: Lumbar Spine (L1-L4): g/cm2 (0.775) / T-score (-2.5) / Z-score (-1.2) Findings are suggestive of osteoporosis with a high fracture risk. Left Femur Total: g/cm2 (0.780) / T-score (-1.3) / Z-score (-0.5) Left Femoral Neck: g/cm2 (0.605) / T-score (-2.2) / Z-score (-1.0) Right Femur Total: g/cm2 (0.748) / T-score (-2.6) / Z-score (-0.8) Right Femoral Neck: g/cm2 (0.562) / T-score (-2.6) / Z-score (-1.4) The T-Scores on the most recent prior examination were: Lumbar Spine (L1-L4): There has been worsening of bone density since the previous examination. Left Femur Total: which represents a worsening of 0.7%. Right Femur Total: which represents a worsening of 1%. BD/Dexa Bone Density Study IMPRESSION: The patient is considered osteoporotic as outlined below according to World Rajesh Organization (WHO) criteria with a high fracture risk. There has been worsening of bone density since the previous examination. Reference Information: The T-score is the number of standard deviations above or below the standard which is normal for young adults at their peak bone mineral density. The World Health Organization (WHO) interprets the T-scores as follows: Above -1 Normal bone density Between -1 and -2.5 Osteopenia Equal to / or below -2.5 Osteoporosis As a practical clinical guideline, osteopenia may be graded as follows: Mild -1 through -1.5 Moderate -1.6 through -2.0 Severe -2.1 through -2.4 The Z-score is the number of standard deviations above or below age-matched controls. A Z-score of less than -1.5 would be considered abnormal. References: 1. NIH Osteoporosis and Related Bone Diseases www osteo.org 2. International Society for Clinical Densitometry www iscd.org 3. National Osteoporosis Foundation www nof.org Electronically Signed: Sony Arvizu MD at 14:24 EST ,
== END | disposition home or self-care (01) ==
LOC: OPBD 13:35
PROVIDERS: PCP Family Medicine; Referring Provider Family Medicine; Visit Provider Family Medicine
DX: Z12.31 Encounter for screening mammogram for malignant neoplasm of breast (principal); Z78.0 Asymptomatic menopausal state
CPT/HCPCS: 77063; 77067; 77080

== ENCOUNTER → 2023-06-10 | Outpatient (CLI) | payer OTHER, SELFPAY ==
--- OUTSIDE RECORDS SUMMARY | 2023-06-10 12:06 | XMS RPT_ITS | CCD ---
Author Name Unknown Address [address] [place] [address] Organization [facility] Care Team Providers Care Ground Crewman Name Role Phone Saeid Griffith Unavailable Camila Stewart LPN Unavailable Unavailab jennifer TOMLIN-C, Neto Blum Unavailable Unavailable Now Nurse Unavailable Unavailable Camila Stewart LPN Unavailable Unavailab jennifer Daly MD, Jimbo Jimenez Primary Care Provider Jimbo Daly MD Unavailable [phone] Jimbo Daly MD Primary Care Provider [phone] Jimbo Daly MD Unavailable Jimbo Daly MD Primary Care Provider [phone] Jimbo Daly MD Unavailable [phone] JIMBO DALY Primary Care Unavailable JIMBO DALY Primary Care Unavailable BEKAH PAYNE Referring Unavailable JIMBO DALY Primary Care Unavailable BEKAH PAYNE Referring Unavailable Allergies Allergy Classification Reported Allergen(s) Allergy Type Date of Onset Reaction(s) Facility (5 sources) acetaminophen / HYDROcodone drug allergy 10-29-2016 [facility] Work Phone: (8 sources) Aspirin; Translations: [ASPIRIN] Drug Allergy 02-27-[address] [facility] Work Phone: (2 sources) Acetaminophen / HYDROcodone Drug Allergy 10-29-[address] [facility] (2 sources) oxyCODONE Drug Allergy 02-08-[address] [facility] Medications Current Medications Medication Drug Class(es) Dates Sig (Normalized) Sig (Original) estradiol 0.1 mg/ml vaginal cream (6 sources) Estrogen Start: 10-27-2021 End: 03-30-2023 estradiol (ESTRACE) 0.01 % (0.1 mg/gram) vaginal cream Indications: Vaginal atrophy Use 1 g vaginally daily at bedtime for 14 days, THEN 1 g two times a week. 42.5 g 1 09/17/2022 03/30/2023 Active Completed/Discontinued Medications Medication Drug Class(es) Dates Sig (Normalized) Sig (Original) apixaban 5 mg oral tablet (12 sources) Factor Xa Inhibitor Start: 07-05-2016 ELIQUIS 5 MG TABS 10 mg a day APIXABAN [id number] Leigha Rebolledo Wagner Problems Active Problems Problem Classification Problem Date Documented Date Episodic/Chronic Acquired foot deformities (7 sources) Acquired hallux valgus; Translations: [Hallux valgus (acquired), unspecified foot] Onset: 08-04-2009 08-04-2009 Chronic Allergic reactions (1 source) Inflammatory dermatosis; Translations: [Dermatitis, unspecified] Episodic Menopausal disorders (2 sources) Atrophy of vagina; Translations: [Postmenopausal atrophic vaginitis] Chronic Other female genital disorders (1 source) Dyspareunia; Translations: [Other specified dyspareunia] Chronic Other female genital disorders (1 source) Vaginospasm; Translations: [Vaginismus] Episodic Other nervous system disorders (7 sources) Plantar nerve lesion; 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, unspecified lower limb] Onset: 05-04-2010 05-04-2010 Chronic Unclassified (1 source) Postoperative physical examination; Translations: [Encounter for other specified surgical aftercare] Onset: 07-31-2016 07-31-2016 Past or Other Problems Problem Classification Problem Date Documented Da te Episodic/Chronic Complication of device; implant or graft (7 sources) Disorders of musculoskeletal implants and repairs; Translations: [Other specified complication of internal orthopedic prosthetic devices, implants and grafts, initial encounter] Onset: 09-15-2009 09-15-2009 Episodic Fracture of lower limb (2 sources) Displaced fracture of proximal phalanx of right lesser toe(s), initial encounter for closed fracture; Translations: [Displaced fracture of proximal phalanx of right lesser toe(s), initial encounter for closed fracture] Onset: 12-10-2016 12-10-2016 Episodic Genitourinary symptoms and ill-defined conditions (4 sources) Dysuria; Translations: [Dysuria] Onset: 10-25-2021 Episodic Other aftercare (4 sources) Encounter for other specified surgical aftercare; Translations: [Encounter for other specified surgical aftercare] Onset: 07-31-2016 07-31-2016 Episodic Other connective tissue disease (12 sources) Foot pain; Translations: [Acquired trigger finger] Onset: 07-05-2016 10-29-2016 Episodic Other connective tissue disease (1 source) Acquired trigger finger; Translations: [Trigger thumb, left thumb] Onset: 07-05-2016 07-05-2016 Episodic Other connective tissue disease (1 source) Pain in thumb ; Translations: [Pain in left finger(s)] Onset: 07-05-2016 07-05-2016 Episodic Other gastrointestinal disorders (7 sources) Constipation; Translations: [Constipation, unspecified] Onset: 01-15-2011 01-15-2011 Episodic Other non-traumatic joint disorders (5 sources) Knee pain; Translations: [Pain in unspecified knee] Onset: 10-29-2016 10-29-2016 Episodic Sprains and strains (11 sources) Strain of unspecified muscle(s) and tendon(s) at lower leg level, unspecified leg, initial encounter; Translations: [Sprain of foot] Onset: 08-04-2009 10-29-2016 Episodic Unclassified (2 sources) Pain; Translations: [Pain, unspecified] Onset: 12-10-2016 12-10-2016 Episodic Results Test Name Value Interpretation Reference Range Facil ity Vital Signs Date Time Vital Sign Value Performing Clinician Cherry guzman 04-30-2022 17:05-0500 Body temperature 97.7 [degF] Celia Hernandez APRN.CNP Work Phone: [facility] 04-30-2022 17:05-0500 Body weight 66.41 kg Celia Hernandez APRN.CNP Work Phone: [facility] 04-30-2022 17:05-0500 Diastolic blood pressure 82 mm[Hg] Celia Hernandez APRN.CNP Work Phone: [facility] 04-30-2022 17:05-0500 Heart rate 82 /min Celia Hernandez APRN.CNP Work Phone: [facility] 04-30-2022 17:05-0500 Respiratory rate 18 /min Celia Hernandez ASSEMBLY MANAGER.ROVING CARRIER Work Phone: [facility] 04-30-2022 17:05-0500 SaO2% (BldA) [Mass fraction] 97 % Celia Hernandez ASSEMBLY MANAGER.ROVING CARRIER Work Phone: [facility] 04-30-2022 17:05-0500 Systolic blood pressure 126 mm[Hg] Celia Hernandez ASSEMBLY MANAGER.ROVING CARRIER Work Phone: [facility] 12-10-2016 13:52-0400 BMI (Body Mass Index) 25.39 kg/m2 Camila Stewart [facility] No w Clinic Work Phone: 12-10-2016 13:52-0400 Body Temperature 98.2 [degF] Camila Stewart [facility] Now Cli melita Work Phone: 12-10-2016 13:52-0400 BP Diastolic 72 mm[Hg] Camila Stewart [facility] Now Clin ic Work Phone: 12-10-2016 13:52-0400 BP Systolic 108 mm[Hg] Camila Stewart [facility] Now Clin ic Work Phone: 12-10-2016 13:52-0400 Height 165.1 cm Camila Stewart [facility] Now Clin ic Work Phone: 12-10-2016 13:52-0400 Pulse (Heart Rate) 91 /min Camila Stewart [facility] Now C linic Work Phone: 12-10-2016 13:52-0400 Respiratory Rate 12 /min Camila Stewart [facility] Now Cli melita Work Phone: 12-10-2016 13:52-0400 Weight 69.22 kg Camila Stewart LPN [facility] Now Clin ic Work Phone: 10-29-2016 10:59-0400 BMI (Body Mass Index) 25.56 kg/m2 [facility] Now Cl inic Work Phone: 10-29-2016 10:59-0400 Body Temperature 98.6 [degF] [facility] Clinic Work Phone: 10-29-2016 10:59-0400 BP Diastolic 76 mm[Hg] [facility] Work Phone: 10-29-2016 10:59-0400 BP Systolic 108 mm[Hg] [facility] Work Phone: 10-29-2016 10:59-0400 Height 165.1 cm [facility] Work Phone: 10-29-2016 10:59-0400 Pulse (Heart Rate) 89 /min [facility] Now Clini c Work Phone: 10-29-2016 10:59-0400 Pulse Oximetry 98 % [facility] Work Phone: 10-29-2016 10:59-0400 Respiratory Rate 12 /min [facility] Work Phone: 10-29-2016 10:59-0400 Weight 69.67 kg [facility] Work Phone: Encounters Encounter Date Encounter Type Care Provider Facility Start: 09-17-2022 ambulatory Walt EISENBERG RN.[facility] Work Phone: Urogynecology Procedures Date Procedure Procedure Detail Performing Clinician Start: 10-11-2021 Culture bacterial quanttative colony count urine Bekah Payne ASSEMBLY MANAGER.CNM Work Phone: Start: 07-21-2020 Mammography Bekah cotter ASSEMBLY MANAGER.CNM Work Phone: Plan of Treatment Date Care Activity Detail Author Start: 04-29-2022 DEPRESSION ASSESSMENT DEPRESSION ASSESSMENT [facility] Start: 12-28-2021 Influenza vaccination INFLUENZA (#1) [facility] Start: 10-24-2021 End: 12-24-2021 Bacteria identified in Urine by Culture URINE CULTURE Microbiology Routine Dysuria Expected: 10/24/2021, Expires: 12/24/2021 [facility] Work Phone: Immunizations Immunization Date Immunization Notes Care Provider Eric ribeiro 06-26-2006 tetanus toxoid, redu christ diphtheria toxoid, and acellular pertussis vaccine, adsorbed Bekah Payne ASSEMBLY MANAGER.CNM Work Phone: [facility] Work Phone: Payers Date Payer Category Payer Private Health Insurance [facility] [employer] [id number] 2022-Present [phone] [address] [place] [address] PPO [id number] 2022 Private Health Insurance [id number] 2020 Unknown MMO MMO TPA [id number] 2020-Present [address] [place] [address] PPO [id number] 2020 Unknown MMO MMO TPA [id number] 2020-Present [address] [place] [address] PPO [id number] 2020 Unknown [id number] Social History Date Type Detail Facility Start: 04-30-2022 Tobacco smoking stat [facility] Never smoked tobacco [facility] Work Phone: Start: 07-04-2020 End: 10-01-2022 Alcohol intake Current non-drinker of alcohol (finding) [facility] Start: 1965 Sex Assigned At Not on file C [facility] Start: 10-01-2021 End: 10-25-2021 Exposure to SARS-CoV-2 (event) Not sure [facility] Start: 04-30-2022 Tobacco use and exposure Smokeless tobacco non-user [facility] Clinical Notes 03-24-2008 to 04-30-2022 Celia Hernandez APRN.ROVING CARRIER - 04/30/2022 5:12 PM ESTTelephone Encounter - Sadia Levine - 03/01/2022 11:29 AM EDTCjerilyn Payne APRN.CNM - 10/30/2021 8:02 PM EDT Note Date & Type Note Facility 04-30-2022 Note HNO ID: [id number] Author: Celia Hernandez APRN.ROVING CARRIER Service: ? Author Type: Nurse Practitioner Type: Progress Notes Filed: 04/30/2022 5:22 PM Note Text: This note was created using NoteWriter. Subjective Karolina Amaya is a 56 year old female. 56 year old female with no PMH presents with complaints of rash. Acute onset of symptoms was 2 days ago Bilateral arms AND neck +red, raised and itching Denies fever or chills. Denies malaise or fatigue Denies SOB or CP. Denies dyspnea. Utilized allergy pills during day. 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 Denies new lotions, soaps, or medicines. The history is provided by the patient. No hourly sign language interpreter was used. Rash This is a new problem. Episode onset: 2 days ago. The problem is unchanged. Location: bilateral arms, and behind ears. The rash is characterized by redness and itchiness. She was exposed to nothing. Pertinent negatives include no anorexia, congestion, cough, diarrhea, eye pain, facial edema, fatigue, fever, joint pain, nail changes, rhinorrhea, shortness of breath, sore throat or vomiting. Treatments tried: allergy medicine. The treatment provided no relief. There is no history of allergies, asthma, eczema or varicella. PAST MEDICAL HISTORY Diagnosis Date Anxiety state, unspecified Bunion 02/27/2006 Enthesopathy of unspecified site 10/09/2006 Hallux valgus (acquired) 02/18/2006 Other hammer toe (acquired) 02/27/2006 Pain in limb 08/05/2006 Stress fracture of the metatarsals 08/05/2006 PAST SURGICAL HISTORY Procedure Laterality Date COLONOSCOPY FLX DX W/COLLJ SPEC WHEN PFRMD 02/01/11 Normal Colonoscopy F TOTAL ABDOMINAL HYSTERECTOMY 03/2015 LIG/TRNSXJ FLP TUBE ABDL/VAG APPR UNI/BI NEUROPLASTY AND/TRANSPOS MEDIAN NRV CARPAL TUNNE 2004 both PAST SURGICAL HISTORY OF 06/2003 right bunionectomy PAST SURGICAL HISTORY OF 2002 left bunionectomy- had infection after PAST SURGICAL HISTORY OF 04-24-06 right bunionectomy RPR UMBILICAL HRNA 5 YRS/> REDUCIBLE 04/26/2008 Simple ALLERGIES Hydrocodone-Acetaminophen, Aspirin, and Oxycodone MEDICATIONS phenazopyridine (PYRIDIUM) 200 mg tablet Take 1 tablet by mouth three times daily as needed. apixaban (ELIQUIS ORAL) Take by mouth. pitavastatin calcium (LIVALO ORAL) Take by mouth. Cetirizine 10 mg cap Take by mouth. sertraline (ZOLOFT) 100 mg tablet Take 100 mg by mouth once daily. predniSONE (DELTASONE) 10 mg tablet Take 4 tabs daily for 3 days, then 2 tabs daily for 3 days, then 1 tab daily for 3 days with food. estradiol (ESTRACE) 0.01 % (0.1 mg/gram) vaginal cream Use 1 g vaginally once daily. Use daily x 14 days then twice weekly (Patient not taking: Reported on 04/30/2022) ranitidine (ZANTAC) 150 mg ORAL tablet Take 1 tablet by mouth twice daily. penciclovir 1 % TOPICAL cream Apply to affected area every 2 hours. Topically to sore 5 times daily until area clears ibuprofen 600 mg ORAL tablet Take 1 tablet by mouth every 6 hours as needed. FOR PAIN. (Patient not taking: Reported on 01/21/2021 ) ibuprofen 600 mg ORAL tablet Take 1 tablet by mouth three times daily. for pain. (Patient not taking: Reported on 01/21/2021 ) FAMILY HISTORY Problem Relation Age of Onset Allergies Mother Diabetes Mother Thyroid Mother Hypertension Father Lipids Father Social History Tobacco Use Smoking status: Never Smokeless tobacco: Never Vaping Use Vaping Use: Never used Substance Use Topics Alcohol use: No Drug use: No Review of Systems Constitutional: Negative for activity change, appetite change, chills, fatigue and fever. HENT: Negative for congestion, rhinorrhea, sinus pressure, sinus pain and sore throat. Eyes: Negative for pain. Respiratory: Negative for apnea, cough, chest tightness and shortness of breath. Cardiovascular: Negative for chest pain, palpitations and leg swelling. Gastrointestinal: Negative for abdominal pain, anorexia, constipation, diarrhea, nausea and vomiting. Musculoskeletal: Negative for arthralgias, back pain, gait problem and joint pain. Skin: Positive for rash. Negative for color change, nail changes and pallor. Allergic/Immunologic: Negative for environmental allergies, food allergies and immunocompromised state. Neurological: Negative for dizziness and facial asymmetry. Hematological: Negative for adenopathy. Does not bruise/bleed easily. Psychiatric/Behavioral: Negative for agitation and behavioral problems. Objective BP 126/82 Pulse 82 Temp 36.5 ?C (97.7 ?F) Resp 18 Wt 66.4 kg (146 lb 6.4 oz) LMP 04/05/2011 SpO2 97% BMI 25.13 kg/m? Physical Exam Vitals and nursing note reviewed. Constitutional: General: She is not in acute distress. Appearance: Normal appearance. She is normal weight. She is not ill-appearing, toxic-appearing or diaphoretic. HENT: Head: Normocephalic and atraumatic. Right Ear: Ear canal and external ear normal. Left Ea (more content not included)... [facility] 04-30-2022 History of Presen t illness Narrative This note was created using [employer] System[employer]. Subjective Karolina Amaya is a 56 year old female. 56 year old female with no PMH presents with complaints of rash. Acute onset of symptoms was 2 days ago Bilateral arms & neck +red, raised and itching Denies fever or chills. Denies malaise or fatigue Denies SOB or CP. Denies dyspnea. Utilized allergy pills during day. 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 Denies new lotions, soaps, or medicines. The history is provided by the patient. No hourly sign language interpreter was used. Rash This is a new problem. Episode onset: 2 days ago. The problem is unchanged. Location: bilateral arms, and behind ears. The rash is characterized by redness and itchiness. She was exposed to nothing. Pertinent negatives include no anorexia, congestion, cough, diarrhea, eye pain, facial edema, fatigue, fever, joint pain, nail changes, rhinorrhea, shortness of breath, sore throat or vomiting. Treatments tried: allergy medicine. The treatment provided no relief. There is no history of allergies, asthma, eczema or varicella. PAST MEDICAL HISTORY Diagnosis Date Anxiety state, unspecified Bunion 02/27/2006 Enthesopathy of unspecified site 10/09/2006 Hallux valgus (acquired) 02/18/2006 Other hammer toe (acquired) 02/27/2006 Pain in limb 08/05/2006 Stress fracture of the metatarsals 08/05/2006 PAST SURGICAL HISTORY Procedure Laterality Date COLONOSCOPY FLX DX W/COLLJ SPEC WHEN PFRMD 02/01/11 Normal Colonoscopy F TOTAL ABDOMINAL HYSTERECTOMY 03/2015 LIG/TRNSXJ FLP TUBE ABDL/VAG APPR UNI/BI NEUROPLASTY &/TRANSPOS MEDIAN NRV CARPAL TUNNE 2004 both PAST SURGICAL HISTORY OF 06/2003 right bunionectomy PAST SURGICAL HISTORY OF 2002 left bunionectomy- had infection after PAST SURGICAL HISTORY OF 04-24-06 right bunionectomy RPR UMBILICAL HRNA 5 YRS/> REDUCIBLE 04/26/2008 Simple ALLERGIES Hydrocodone-Acetaminophen, Aspirin, and Oxycodone MEDICATIONS phenazopyridine (PYRIDIUM) 200 mg tablet Take 1 tablet by mouth three times daily as needed. apixaban (ELIQUIS ORAL) Take by mouth. pitavastatin calcium (LIVALO ORAL) Take by mouth. Cetirizine 10 mg cap Take by mouth. sertraline (ZOLOFT) 100 mg tablet Take 100 mg by mouth once daily. predniSONE (DELTASONE) 10 mg tablet Take 4 tabs daily for 3 days, then 2 tabs daily for 3 days, then 1 tab daily for 3 days with food. estradiol (ESTRACE) 0.01 % (0.1 mg/gram) vaginal cream Use 1 g vaginally once daily. Use daily x 14 days then twice weekly (Patient not taking: Reported on 04/30/2022) ranitidine (ZANTAC) 150 mg ORAL tablet Take 1 tablet by mouth twice daily. penciclovir 1 % TOPICAL cream Apply to affected area every 2 hours. Topically to sore 5 times daily until area clears ibuprofen 600 mg ORAL tablet Take 1 tablet by mouth every 6 hours as needed. FOR PAIN. (Patient not taking: Reported on 01/21/2021 ) ibuprofen 600 mg ORAL tablet Take 1 tablet by mouth three times daily. for pain. (Patient not taking: Reported on 01/21/2021 ) FAMILY HISTORY Problem Relation Age of Onset Allergies Mother Diabetes Mother Thyroid Mother Hypertension Father Lipids Father Social History Tobacco Use Smoking status: Never Smokeless tobacco: Never Vaping Use Vaping Use: Never used Substance Use Topics Alcohol use: No Drug use: No Review of Systems Constitutional: Negative for activity change, appetite change, chills, fatigue and fever. HENT: Negative for congestion, rhinorrhea, sinus pressure, sinus pain and sore throat. Eyes: Negative for pain. Respiratory: Negative for apnea, cough, chest tightness and shortness of breath. Cardiovascular: Negative for chest pain, palpitations and leg swelling. Gastrointestinal: Negative for abdominal pain, anorexia, constipation, diarrhea, nausea and vomiting. Musculoskeletal: Negative for arthralgias, back pain, gait problem and joint pain. Skin: Positive for rash. Negative for color change, nail changes and pallor. Allergic/Immunologic: Negative for environmental allergies, food allergies and immunocompromised state. Neurological: Negative for dizziness and facial asymmetry. Hematological: Negative for adenopathy. Does not bruise/bleed easily. Psychiatric/Behavioral: Negative for agitation and behavioral problems. Objective BP 126/82 Pulse 82 Temp 36.5 C (97.7 F) Resp 18 Wt 66.4 kg (146 lb 6.4 oz) LMP 04/05/2011 SpO2 97% BMI 25.13 kg/m Physical Exam Vitals and nursing note reviewed. Constitutional: General: She is not in acute distress. Appearance: Normal appearance. She is normal weight. She is not ill-appearing, toxic-appearing or diaphoretic. HENT: Head: Normocephalic and atraumatic. Right Ear: Ear canal and external ear normal. Left Ear: Ear canal and external ear normal. Nose: Nose normal. No congestion or rhinorrhea. Mouth/Throat: Mouth: Mucous membranes are moist. Pharynx: No oropharyngeal exudate or posterior oropharyngeal erythema. Eyes: General: Right eye: No discharge. Left eye: No discharge. Extraocular Movements: Extraocular movements intact. Conjunctiva/sclera: Conjunctivae normal. Pupils: Pupils are equal, round, and reactive to light. Cardiovascular: Rate and Rhythm: Normal rate and regular rhythm. Pulses: Normal pulses. Heart sounds: Normal heart sounds. No murmur heard. No friction rub. Pulmonary: Effort: Pulmonary effort is normal. No respiratory distress. Breath sounds: Normal breath sounds. No stridor. No wheezing, rhonchi or rales. Chest: Chest wall: No tenderness. Abdominal: General: Abdomen is flat. There is no distension. Palpations: Abdomen is soft. There is no mass. Tenderness: There is no abdominal tenderness. There is no right CVA tenderness, left CVA tenderness, guarding or rebound. Hernia: No hernia is present. Musculoskeletal: General: No swelling, tenderness, deformity or signs of injury. Normal range of motion. Cervical back: Normal range of motion and neck supple. No rigidity. Right lower leg: No edema. Left lower leg: No edema. Lymphadenopathy: Cervical: No cervical adenopathy. Skin: General: Skin is warm and dry. Capillary Refill: Capillary refill takes less than 2 seconds. Coloration: Skin is not jaundiced or pale. Findings: Rash (Bilateral AC fossa with pruritic erythematic patch like rash, similair area noted to area behind ears.) present. No bruising, erythema or lesion. Neurological: General: No focal deficit present. Mental Status: She is alert and oriented to person, place, and time. Cranial Nerves: No cranial nerve deficit. Sensory: No sensory deficit. Motor: No weakness. Coordination: Coordination normal. Gait: Gait normal. Psychiatric: Mood and Affect: Mood normal. Behavior: Behavior normal. Thought Content: Thought content normal. Judgment: Judgment normal. Assessment and Plan ASSESSMENT/PLAN: 1. Dermatitis - ICD9: 692.9, ICD10: L30.9 X 2 days No red flags ??? Contact dermatitis. - Oral Steriod tx -Prednisone taper - Anti itch therapy of OTC 1% Hydrocortisone cream, Calomine lotion, Oatmeal baths, and Oral Benydryl recommended prn - discussed skin care of rash - follow up if symptoms persist or worsen. - Celia Hernandez APRN.CNP documented in this encounter [facility] 03-01-2022 Miscellaneous Notes Faxed referral received twice from PCP Upon contacting PT by phone PT declined any appointment stating that she see's Dr. Bekah Payne and does not wish to schedule with [facility]. Sadia Levine documented in this encounter [facility] 10-30-2021 Note HNO ID: [id number] Author: Bekah Payne APRN.CNM Service: ? Author Type: Cloth Desizing Range Tender Type: Progress Notes Filed: 10/30/2021 8:03 PM Note Text: Consult to Uro/TRANSPORTATION MAINTENANCE WORKER for dyspareunia. She would like bladder sling looked at as well. Bekah Payne APRN.CNM [facility] 10-30-2021 History of Presen t illness Narrative Consult to Uro/TRANSPORTATION MAINTENANCE WORKER for dyspareunia. She would like bladder sling looked at as well. Bekah Payne APRN.CNM documented in this encounter [facility] 10-27-2021 Miscellaneous Notes Called and discussed urine results. Patient continues to have slight burning with urination, vaginal irritation and pain with intercourse. Discussed trial of vaginal estrogen. Patient open to treatment. Rx sent at this time. If continues to have pain with urination, will follow up with PCP. Bekah Payne APRN.CNM documented in this encounter [facility] 10-25-2021 Note HNO ID: [id number] Author: Bekah Payne APRN.CNM Service: ? Author Type: Cloth Desizing Range Tender Type: Progress Notes Filed: 10/24/2021 10:46 PM Note Text: Patient treated for UTI on 10/12/21. She completed antibiotics and reports still having urinary urgency and burning. Will send UA and culture. Bekah Payne APRN.CNM [facility] 10-24-2021 History of Presen t illness Narrative Patient treated for UTI on 10/12/21. She completed antibiotics and reports still having urinary urgency and burning. Will send UA and culture. Bekah Payne APRN.CNM documented in this encounter [facility] documented as of this encounter (statuses as of 10/12/2021) [facility]11-[facility]2008 History of Past illness Narrative* Problem Noted Date Resolved Date Incisional hernia without mention of obstruction or gangrene 03/24/2008 07/19/2009 Enthesopathy of unspecified site 10/09/2006 07/19/2009 Pain in limb 08/05/2006 07/19/2009 Stress fracture of the metatarsals 08/05/2006 07/19/2009 Other hammer toe (acquired) 02/27/200606/28 Bunion 02/27/2006 07/19/2009 Hallux valgus (acquired) 02/18/2006 010 documented as of this encounter (statuses as of 10/25/2021) [facility]11-[facility] History of Past illness Narrative* Problem Noted Date Resolved Date Incisional hernia without mention of obstruction or gangrene 03/24/2008 07/19/2009 Enthesopathy of unspecified site 10/09/2006 07/19/2009 Pain in limb 08/05/2006 07/19/2009 Stress fracture of the metatarsals 08/05/2006 07/19/2009 Other hammer toe (acquired) 02/27/200606/28 Bunion 02/27/2006 07/19/2009 Hallux valgus (acquired) 02/18/2006 010 documented as of this encounter (statuses as of 10/27/2021) [facility] History of Past illness Narrative* Problem Noted Date Resolved Date Incisional hernia without mention of obstruction or gangrene 03/24/2008 07/19/2009 Enthesopathy of unspecified site 10/09/2006 07/19/2009 Pain in limb 08/05/2006 07/19/2009 Stress fracture of the metatarsals 08/05/2006 07/19/2009 Other hammer toe (acquired) 02/27/200606/28 Bunion 02/27/2006 07/19/2009 Hallux valgus (acquired) 02/18/2006 010 documented as of this encounter (statuses as of 10/31/2021) [facility] History of Past illness Narrative* Problem Noted Date Resolved Date Incisional hernia without mention of obstruction or gangrene 03/24/2008 07/19/2009 Enthesopathy of unspecified site 10/09/2006 07/19/2009 Pain in limb 08/05/2006 07/19/2009 Stress fracture of the metatarsals 08/05/2006 07/19/2009 Other hammer toe (acquired) 02/27/200606/28 Bunion 02/27/2006 07/19/2009 Hallux valgus (acquired) 02/18/2006 010 documented as of this encounter (statuses as of 03/01/2022) [facility] History of Past illness Narrative* Problem Noted Date Resolved Date Incisional hernia without mention of obstruction or gangrene 03/24/2008 07/19/2009 Enthesopathy of unspecified site 10/09/2006 07/19/2009 Pain in limb 08/05/2006 07/19/2009 Stress fracture of the metatarsals 08/05/2006 07/19/2009 Other hammer toe (acquired) 02/27/200606/28 Bunion 02/27/2006 07/19/2009 Hallux valgus (acquired) 02/18/2006 010 documented as of this encounter (statuses as of 05/03/2022) [facility] History of Past illness Narrative* Problem Noted Date Resolved Date Incisional hernia without mention of obstruction or gangrene 03/24/2008 07/19/2009 Enthesopathy of unspecified site 10/09/2006 07/19/2009 Pain in limb 08/05/2006 07/19/2009 Stress fracture of the metatarsals 08/05/2006 07/19/2009 Other hammer toe (acquired) 02/27/200606/28 Bunion 02/27/2006 07/19/2009 Hallux valgus (acquired) 02/18/2006 010 documented as of this encounter (statuses as of 10/02/2022) [facility]- [facility]- [facility] Diagnosis Dysuria- Primary Vaginal atrophy Postmenopausal atrophic vaginitis [facility] Diagnosis Other specified dyspareunia- Primary Vaginal atrophy Postmenopausal atrophic vaginitis Vaginismus [facility] Diagnosis Dermatitis- Primary Contact dermatitis and other eczema, due to unspecified cause documented in this encounter [facility] Advance Directives No Advanced Directives Records FoundDocuments on File Type Date Recorded Patient Cured Meats Supervisor Expl anation Advance Directive(s) Documents on File Type Date Recorded Patient Cured Meats Supervisor Expl anation Advance Directive(s) Reason for Referral Specialty Diagnoses / Procedures Referred By Santa t Referred To Contact Diagnoses Other specified dyspareunia Vaginal atrophy Vaginismus Procedures CONSULT TO URO GYNECOLOGY OFFICE/OUTPATIENT [facility] 60-74 MINUTES Bekah Payne APRN.CN [address] [place] [address] Referral ID Status Reason Start Date Expiration Date Visits Requested Visits Authorized [id number] Authorized PCP Requested Referral Auto-Generate d Referral 10/30/2021 10/30/2022 1 1 Summary Purpose Family History No Family History Records FoundNo Family History Records Found Additional Source Comments Source Comments (unrecognize d section and content) In the event this informatio n is protected by the Federal Confidentiality of Alcohol and Drug Abuse Patient Records regulations: The Federal rules restrict any use of the information to criminally investigate or prosecute any alcohol or drug abuse patient.[facility] the event this information is protected by the Federal Confidentiality of Alcohol and Drug Abuse Patient Records regulations: The Federal rules restrict any use of the information to criminally investigate or prosecute any alcohol or drug abuse patient.[facility] the event this information is protected by the Federal Confidentiality of Alcohol and Drug Abuse Patient Records regulations: The Federal rules restrict any use of the information to criminally investigate or prosecute any alcohol or drug abuse patient.[facility] the event this information is protected by the Federal Confidentiality of Alcohol and Drug Abuse Patient Records regulations: The Federal rules restrict any use of the information to criminally investigate or prosecute any alcohol or drug abuse patient.[facility] the event this information is protected by the Federal Confidentiality of Alcohol and Drug Abuse Patient Records regulations: The Federal rules restrict any use of the information to criminally investigate or prosecute any alcohol or drug abuse patient.[facility] the event this information is protected by the Federal Confidentiality of Alcohol and Drug Abuse Patient Records regulations: The Federal rules restrict any use of the information to criminally investigate or prosecute any alcohol or drug abuse patient.[facility] the event this information is protected by the Federal Confidentiality of Alcohol and Drug Abuse Patient Records regulations: The Federal rules restrict any use of the information to criminally investigate or prosecute any alcohol or drug abuse patient.[facility] Care Teams (unrecognized sec tion and content) Ground Crewman Relationship Specialty Start Date End Date Jimbo Daly MD PCP - General Family Practice 02/13/16 Jimbo Daly MD Family Practice 02/13/16 Ground Crewman Relationship Specialty Start Date End Date Jimbo Daly MD PCP - General Family Practice 02/13/16 Jimbo Daly MD Family Practice 02/13/16 Ground Crewman Relationship Specialty Start Date End Date Jimbo Daly MD PCP - General Family Practice 02/13/16 Jimbo Daly MD Family Practice 02/13/16 Ground Crewman Relationship Specialty Start Date End Date Jimbo Daly MD PCP - General Family Medicine 02/13/16 Jimbo Daly MD Family Medicine 02/13/16 Ground Crewman Relationship Specialty Start Date End Date Jimbo Daly MD PCP - General Family Medicine 02/13/16 Jimbo Daly MD Family Medicine 02/13/16 Reason for Visit (unrecogniz ed section and content) Reason Comments Referral Information Reason Comments Rash JONO arms, neck, face x2 days INFORMATION SOURCE (unrecogn ized section and content) DATE CREATED AUTHOR AUTHOR'S ORGANIZ ATION 10/09/2022 [facility] FOR RECORDS PERTAINING TO PATIENTS WHO ARE OR HAVE BEEN ENROLLED IN A CHEMICAL DEPENDENCY/SUBSTANCEABUSE PROGRAM, SOME INFORMATION MAY BE OMITTED. This clinical summary was aggregated from multiple sources. Caution should be exercised in using it in the provision of clinical care. This summary normalizes information from multiple sources, and as a consequence, information in this document may materially change the coding, format and clinical context of patient data. In addition, data may be omitted in some cases. CLINICAL DECISIONS SHOULD BE BASED ON THE PRIMARY CLINICAL RECORDS. [employer] provides no warranty or guarantee of the accuracy or completeness of information in this document.
[2023-06-10 14:16] LABS: ALB/GLOB Ratio 1.1 RATIO (0.9-2.4); AST(SGOT) 18 U/L (15-37); Alanine Aminotransfer ALT/SGPT 34 U/L (13-56); Albumin, Serum 3.7 g/dL (3.2-5.0); Alkaline Phosphatase 130 U/L (45-117); Anion Gap 4 (5-15); BUN 29 mg/dL (7-18); BUN/Creat Ratio 33.2 RATIO (10-20); Calcium,Total 9.2 mg/dL (8.5-10.1); Chloride 109 mmol/L (98-107); Cholesterol 234 mg/dL (200); Creatinine, Serum 0.87 mg/dL (0.55-1.02); EST Glomerular Filtration Rate 71 mL/min (>60); Est Glom Filt Rate - Afr Amer 86 mL/min (>60); Globulin 3.5 g/dL (2.2-4.2); Glucose 88 mg/dL (74-106); High Density Lipoprotein 65 mg/dL; Potassium 4.3 mmol/L (3.5-5.1); Protein, Total 7.2 g/dL (6.4-8.2); Sodium Level 140 mmol/L (136-145); Triglycerides 127 mg/dL; Very Low Density Lipoprotein 25 mg/dL (5-40)
== END | disposition home or self-care (01) ==
LOC: LAB 11:47
PROVIDERS: PCP Family Medicine; Referring Provider Family Medicine; Visit Provider Family Medicine
DX: E78.5 Hyperlipidemia, unspecified (principal)
CPT/HCPCS: 36415; 80053; 80061

== ENCOUNTER → 2023-07-10 | Outpatient (CLI) | payer OTHER, SELFPAY ==
--- NOTE | 2023-07-10 15:12 | RAD_ITS ---
STUDY: X-RAY - RIGHT KNEE REASON FOR EXAM: Female, 58 years old. PAIN IN JOINT INVOLVING LOWER LEG TECHNIQUE: 4 views of the right knee. COMPARISON: Right knee radiographs dated 10/29/2016. FINDINGS: Normal visualized distal femur. Normal visualized proximal tibia and fibula. Normal proximal tibiofibular articulation. There is no demonstrated fracture. Normal medial femorotibial compartment. Normal lateral femorotibial compartment. Normal patellofemoral articulation. The soft tissue structures are unremarkable. RAD/Knee 4 or More Views IMPRESSION: Normal x-ray examination of the right knee. Electronically Signed: Jeff Reyes MD at 10:52 EDT ,
== END | disposition home or self-care (01) ==
PROVIDERS: PCP Family Medicine; Referring Provider Family Medicine; Visit Provider Family Medicine
DX: M25.561 Pain in right knee (principal)
CPT/HCPCS: 73564

== ENCOUNTER → 2023-08-12 | Outpatient (CLI) | payer OTHER, SELFPAY ==
--- NOTE | 2023-08-12 09:00 | MRI_ITS ---
STUDY: MRI LEFT HIP REASON FOR EXAM: Female, 58 years old. Left hip pain X 1 year. TECHNIQUE: Standardized fat and water weighted pulse sequences were obtained in all 3 orthogonal planes. COMPARISON: Left hip radiographs dated 08/08/2022. FINDINGS: Normal hip joint without articular joint space narrowing. Normal acetabulum. Normal labrum. Normal femoral head. Normal femoral neck and intratrochanteric region. Normal left gluteus minimus, medius and iliopsoas tendons and distal insertions. There is tendinosis and partial interstitial tearing of the contralateral right gluteus minimus tendon (coronal STIR series 3 image 11). There is minimal right trochanteric bursitis. There is no left trochanteric, iliopsoas or iliopectineal bursitis. Normal superior and inferior pubic rami. Normal pubic symphysis. Normal ischial tuberosity. Normal origin of the hamstring tendons. Normal visualized iliac wing, sacroiliac joint, and sacral ala. Normal visualized soft tissue structures of the pelvis. MRI/Lower Ext Joint Only (Routine) IMPRESSION: Normal left hip. Tendinosis and partial interstitial tearing of the contralateral right gluteus minimus tendon, with minimal right trochanteric bursitis. Electronically Signed: Jeff Reyes MD at 14:32 EDT ,
== END | disposition home or self-care (01) ==
LOC: MRI 09:17
PROVIDERS: PCP Family Medicine; Referring Provider Family Medicine; Visit Provider Family Medicine
DX: M25.552 Pain in left hip (principal)
CPT/HCPCS: 73721

== ENCOUNTER → 2023-10-11 | Outpatient (CLI) | payer OTHER, SELFPAY ==
--- NOTE | 2023-10-11 08:57 | AAVD_ITS ---
Reason For Study: HX BLE CIV Stents Inferior Vena Cava Proximal inferior vena cava measures 1.81 x 1.70 cm. in the cross-sectional axis. Proximal inferior vena cava measures 1.68 cm. in the longitudinal axis. Mid inferior vena cava measures 0.98 x 1.53 cm. in the cross-sectional axis. Mid inferior vena cava measures 1.11 cm. in the longitudinal axis. Distal inferior vena cava measures 1.20 x 1.77 cm. in the cross-sectional axis. Distal inferior vena cava measures 1.11 cm. in the longitudinal axis. The inferior vena cava has spontaneous, phasic flow throughout. Left Common Iliac Vein Left common iliac vein measures 0.93 x 0.96 cm. in the cross-sectional axis. Left common iliac vein measures 1.15 cm. in the longitudinal axis. The left common iliac vein has spontaneous, phasic flow throughout. Right Common Iliac Vein Right common iliac vein measures 0.97 x 0.95 cm. in the cross-sectional axis. Right common iliac vein measures 1.07 cm. in the longitudinal axis. The right common iliac vein has spontaneous, phasic flow throughout. VL/Abd Aortic/IVC Duplex scan Interpretation Summary IVC and bilateral iliac vein stents patent with normal venous flow pattern. Ordering Physician: Martine Power Referring Physician: Jimbo Dash Performed By: River Leblanc RVT
== END | disposition home or self-care (01) ==
LOC: CVS 08:57
PROVIDERS: PCP Family Medicine; Referring Provider Physician Assistant; Visit Provider Physician Assistant
DX: I87.1 Compression of vein (principal)
CPT/HCPCS: 93978

== ENCOUNTER → 2023-11-14 | Outpatient (CLI) | payer OTHER, SELFPAY ==
[2023-11-14 12:37] LABS: AST(SGOT) 20 U/L (15-37); Alanine Aminotransfer ALT/SGPT 32 U/L (13-56); Albumin, Serum 3.6 g/dL (3.2-5.0); Alkaline Phosphatase 133 U/L (45-117); Anion Gap 5 (5-15); BUN 19 mg/dL (7-18); BUN/Creat Ratio 22.8 RATIO (10-20); Calcium,Total 9.4 mg/dL (8.5-10.1); Chloride 106 mmol/L (98-107); Cholesterol 204 mg/dL (200); Creatinine, Serum 0.83 mg/dL (0.55-1.02); EST Glomerular Filtration Rate 75 mL/min (>60); Est Glom Filt Rate - Afr Amer 90 mL/min (>60); Globulin 3.6 g/dL (2.2-4.2); Glucose 102 mg/dL (74-106); High Density Lipoprotein 69 mg/dL; Potassium 3.8 mmol/L (3.5-5.1); Protein, Total 7.2 g/dL (6.4-8.2); Sodium Level 139 mmol/L (136-145); Triglycerides 128 mg/dL; Very Low Density Lipoprotein 26 mg/dL (5-40)
== END | disposition home or self-care (01) ==
LOC: MFPLAB 10:41
PROVIDERS: PCP Family Medicine; Visit Provider Family Medicine
DX: E78.5 Hyperlipidemia, unspecified (principal)
CPT/HCPCS: 36415; 80053; 80061

== ENCOUNTER 2023-11-28 12:38 | Inpatient (IN) | payer OTHER, SELFPAY ==
[2023-11-28 12:38] VITALS: BP 126/86; PULSE 103; RESP 16; TEMP 35.7; O2SAT 96; BMI 25.4
--- NOTE | 2023-11-28 12:51 | VDLE_ITS ---
Reason For Study: LLE Swelling RIGHT LEFT CFV is compressible, spontaneous, phasic, Dist IVC appears spontaneous and patent. competent and demonstrates normal Acute deep vein thrombosis is noted in the augmentation. CIV. It is dilated and NONCOMPRESSIBLE. Stent Procedure Noted. This is a venous duplex using B-mode, color Acute deep vein thrombosis is noted in the flow and spectral Doppler. EIV. It is dilated and NONCOMPRESSIBLE. Exam performed in department. Acute deep vein thrombosis is noted in the The exam was diagnostic. CFV. It is dilated and NONCOMPRESSIBLE. A preliminary report was called and/or faxed Acute deep vein thrombosis is noted in the to Dr. Rodríguez in the ED. FV. It is dilated and NONCOMPRESSIBLE. Acute deep vein thrombosis is noted in the DEEP FV. It is dilated and NONCOMPRESSIBLE. Acute deep vein thrombosis is noted in the POP V. It is dilated and NONCOMPRESSIBLE. Acute deep vein thrombosis is noted in the Gastrocnemius V. It is dilated and NONCOMPRESSIBLE. Acute deep vein thrombosis is noted in the T/P Trunk. It is dilated and NONCOMPRESSIBLE. Acute deep vein thrombosis is noted in the Soleal Vein. It is dilated and NONCOMPRESSIBLE. Acute deep vein thrombosis is noted in the PTV. It is dilated and NONCOMPRESSIBLE. Acute deep vein thrombosis is noted in the Per V. It is dilated and NONCOMPRESSIBLE. Acute superficial vein thrombosis is noted in the GSV prox thigh toSFJ. It is dilated and NONCOMPRESSIBLE. GSV appears compressible ankle to mid thigh. VL/Venous Duplex US, Unilateral Interpretation Summary Acute deep vein thrombosis is noted in the left common iliac vein, external carolyn ac vein, common femoral vein, femoral vein, profunda femoral vein, popliteal vein, gastrocnemiu s vein, tibioperoneal trunk vein, soleal vein, posterior tibial vein, peroneal vein. Acute superficial vein thrombosis noted in the great saphenous vein in the thig h. Ordering Physician: Addison Rodríguez Referring Physician: Jimbo Dash Performed By: River Leblanc RVT
[2023-11-28 13:29] LABS: Red Blood Cells-Urine 0 SEEN /hpf (0-5)
[2023-11-28 13:33] LABS: Color, Urine Yellow (Yellow); Glucose, Dipstick Normal (Normal); Ketone-Dipstick Negative (Negative); Leukocyte Esterase-Dipstick 500 /ul (Negative); Nitrite-Dipstick Negative (Negative); Occult Blood-Urine 10 /ul (Negative); Protein-Dipstick 30 mg/dl (Negative); Specific Gravity, Urine 1.015 (1.002-1.030); Urine Bilirubin Dipstick Negative (Negative); Urine Clarity Cloudy (Clear); Urine Urobilinogen Normal (Normal)
[2023-11-28 13:35] LABS: Absolute Neutrophil Count 5.5 X10^3/uL (2.0-7.7); Basophil# 0.04 X10^3/uL; Basophil% 0.5 % (0-1); Eosinophil# 0.49 X10^3/uL; Eosinophils% 6.4 % (0-5); Hemoglobin 14.1 g/dL (12.0-15.0); Lymphocyte % 14.3 % (19-41); Mean Corp Hgb Conc 32.8 g/dL (32-36); Mean Corpuscular Hgb 29.9 pg (27.0-32.0); Mean Corpuscular Volume 91.1 fL (81-99); Mean Platelet Vol. 9.6 fl (6.2-12.0); Monocyte# 0.49 X10^3/uL; Monocyte% 6.4 % (0-10); NRBC Flagged by Analyzer 0 % (0-5); Neutrophil # 5.53 X10^3/uL (2.7-7.7); Platelet Count 211 K/mm3 (150-450); RBC Distribution Width CV 12.8 % (11.6-14.6); Red Blood Count 4.72 M/mm3 (4.2-5.4); White Blood Count 7.7 K/mm3 (4.4-11.0)
--- NOTE | 2023-11-28 13:43 | EX.ED.DYSGE1 ---
HPI History of Present Illness Chief Complaint: Lower Extremity Injury Narrative Narrative: Patient is a 58-year-old female with past medical history of GERD, DVT recently discontinued Plavix and has been off Eliquis for several months now, anxiety, anemia who presented to the emergency department with chief complaint of left leg pain and swelling. Patient states that yesterday she noted that her right leg was swelling mildly however noted that today the swelling worsened and she was having groin pain associated with this as well. She states that once again she had recently been taken off her Plavix by her doctor and has been off Eliquis now for few months which was discontinued by her physician as well. She states that her mother has a history of getting several blood clots she states that she has been tested for factor V by her primary care physician but denies any other testing for hypercoagulable states. [facility] Medical History Loss of hearing Wears glasses Arthritis Bladder disease DVT (deep venous thrombosis) Restless legs Difficulty swallowing Gastric reflux Non-smoker Leg cramps History of pain when walking History of echocardiogram History of stress test Anxiety Anemia Home Medications ?Medication ?Instructions ?Recorded ?Last Taken ?Type sertraline 100 mg tablet 50 mg PO BID anxiety 03/30/14 02/14/22 History Cholecalciferol (Vitamin D3) 5,000 unit PO DAILY supplement 03/07/20 02/14/22 History [Vitamin D3] cyanocobalamin (vitamin B-12) 3,000 mcg PO DAILY supplement 03/07/20 02/14/22 History 5,000 mcg disintegrating tablet omeprazole 20 mg tablet,delayed 20 mg PO QHS reflux 03/07/20 02/14/22 History release pitavastatin calcium 2 mg tablet 2 mg PO QPM 02/08/22 02/14/22 History (Livalo) cetirizine 10 mg capsule (Zyrtec) 10 mg PO DAILY 04/12/22 Unknown History dicyclomine 20 mg tablet 20 mg PO BID 10/02/22 Unknown History alendronate 70 mg tablet 70 mg PO QWEEK 11/28/23 Unknown History Allergy/AdvReac Type Severity Reaction Status Date / Time hydrocodone (From Vicodin) Allergy Nausea/Vom/ Verified 11/19/23 11:49 Diarrhea oxycodone AdvReac Itching Verified 11/19/23 11:49 Family History Mother Colon cancer Cancer ovary Diabetes Father Hypertension Surgical History Hx of bladder repair surgery Hx of cystoscopy Hx of shoulder surgery Hx of colonoscopy S/P rotator cuff repair S/P bunionectomy S/p bilateral carpal tunnel release S/P cholecystectomy S/P hysterectomy Social History Smoking Status: Never smoker alcohol intake: never ROS ROS ED ROS Narrative constitutional: Denies any fevers, chills, headaches, Eric, dizziness Eyes: Denies change in vision or any blurry vision Cardiovascular: Denies chest pain or palpitations Respiratory: Denies coughing wheezing shortness of breath Abdomen: Denies abdominal pain : Denies any pain formation, hematuria, polyuria Neurological: Denies numbness, weakness, tingling Musculoskeletal: Complains of left lower extremity swelling as noted above and groin pain Skin: Denies rashes or lesions EXAM Physical Exam Narrative Exam Narrative: general: Patient lying in bed rest comfortably did not appear to be in acute distress Head: Atraumatic, normocephalic Eyes: PERRL bilaterally, EOMI bilaterally, no conjunctival injection noted Neck: Soft, supple, trachea midline Cardiovascular: Patient tachycardic with a regular rhythm no murmurs gallops rubs noted Respiratory: Clear to auscultation bilaterally no rales rhonchi wheeze noted Abdomen: Soft, nondistended, no tenderness palpation Musculoskeletal: Patient's left lower extremity is swollen diffusely, compartments soft and compressible no concern for compartment syndrome Extremities: DP pulses +2/4 in the bilateral lower extremities, no pedal edema on exam, patient's left lower extremity is significantly more swollen when compared to right Neurological: Patient following commands knew that she was at [facility] year is 2023. Sensation grossly intact in bilateral lower extremities Skin: Warm, dry, intact no rashes or lesions noted Const Vital Signs: 11/28/23 12:38 11/28/23 15:00 11/28/23 15:00 Temperature 96.2 F L 97.8 F 97.8 F Temperature Source Temporal Temporal Pulse Rate 103 H 81 81 Respiratory Rate 16 17 17 Blood Pressure 126/86 H 105/74 105/74 Blood Pressure Mean 99 84 84 Pulse Ox 96 95 95 Oxygen Delivery Method Room Air Room Air MDM MDM MDM Narrative Medical decision making narrative: Patient is a 58-year-old female who presented to the emergency department chief complaint of left leg pain and swelling with a history of DVT not on anticoagulation. Patient will have a workup performed here on the differential diagnose includes but not limited to DVT, lymphedema. Once workup is obtained reviewed she will be reevaluated. Patient be given IV fluids Patient CBC reviewed and showed normal white blood count of 7.7, hemoglobin is 14.1, platelet count was 92 alive and. Patient INR normal at 0.9, PT was noted 12.5. Patient's sodium normal at 142, potassium normal 4.1, creatinine normal at 0.84. Patient's urinalysis revealed 500 leukocyte esterase 50-100 white cells with 2+ bacteria she was given a gram Rocephin for her UTI. Patient's ultrasound of her left lower extremity was reviewed and showed acute DVT involving the left common iliac vein, external iliac vein, common femoral vein, femoral vein, profundo femoral vein, popliteal vein, gastrocnemius vein, tibial peroneal vein, soleal vein, posterior tibial vein, peroneal vein. Acute superficial vein thrombosis noted in the great saphenous vein in the thigh as well. Did discuss case with physician general surgery physician assistant for Dr. Goldberg who states that if there are any other concerns can admit the patient on heparin drip otherwise if no concern she can go home on Lovenox and follow-up in their office. At this point in time given the patient's increasing pain and requiring pain medication which she was ordered 4 mg morphine and Zofran as well as swollen left lower extremity do feel that she warrants admission for observation to ensure that she does not develop compartment syndrome. Patient is agreeable with staying in the hospital. Did discuss case with Dr. Bower who will accept patient for admission. All question concerns answered. Lab Data Labs: Laboratory Results - last 24 hr 11/28/23 11/28/23 13:25 13:28 WBC 7.7 RBC 4.72 Hgb 14.1 Hct 43.0 MCV 91.1 MCH 29.9 MCHC 32.8 RDW Std Deviation 43.0 RDW Coeff of Horacio 12.8 Plt Count 211 MPV 9.6 Immature Gran % (Auto) 0.400 Neut % (Auto) 72.0 H Lymph % (Auto) 14.3 L [place] % (Auto) 6.4 Eos % (Auto) 6.4 H Baso % (Auto) 0.5 Absolute Neuts (auto) 5.5 Absolute Lymphs (auto) 1.10 Nucleated RBC % 0 PT 12.5 INR 0.9 APTT 26.5 Sodium 142 Potassium 4.1 Chloride 112 H Carbon Dioxide 28.0 Anion Gap 2 L BUN 20 H Creatinine 0.84 Estim Creat Clear Calc 68.87 Est GFR (MDRD) Af Amer 90 Est GFR (MDRD) Non-Af 74 BUN/Creatinine Ratio 23.9 H Glucose 93 Calcium 9.3 Urine Color Yellow Urine Clarity Cloudy Urine pH 6.0 Ur Specific Loring 1.015 Urine Protein 30 H Urine Glucose (UA) Normal Urine Ketones Negative Urine Occult Blood 10 H Urine Nitrite Negative Urine Bilirubin Negative Urine Urobilinogen Normal Ur Leukocyte Esterase 500 H Urine RBC 0 SEEN Urine WBC 50-100 SEEN Ur Squamous Epith Cells 5-10 SEEN Calcium Oxalate Crystal 1+ Urine Bacteria 2+ Urine Mucus 2+ Radiography Diagnostic Testing: Clinical Impression(s) from Imaging Studies Venous Doppler Study 11/28/23 12:51 Interpretation Summary Acute deep vein thrombosis is noted in the left common iliac vein, external iliac vein, common femoral vein, femoral vein, profunda femoral vein, popliteal vein, gastrocnemius vein, tibioperoneal trunk vein, soleal vein, posterior tibial vein, peroneal vein. Acute superficial vein thrombosis noted in the great saphenous vein in the thigh. Ordering Physician: Addison Rodríguez Referring Physician: Jimbo Dash Performed By: River Leblanc RVT Discharge Plan Triage Chief Complaint: Lower Extremity Injury ED Provider: Addison Rodríguez Dx/Rx/DC Orders Prescriptions: No Action Zyrtec 10 mg capsule 10 mg PO DAILY sertraline 100 MG tablet 50 mg PO BID Patient Comments: ANXIETY cyanocobalamin (vitamin B-12) 5,000 MCG tablet,disintegrating 3,000 mcg PO DAILY Cholecalciferol (Vitamin D3) [Vitamin D3] 5,000 UNIT capsule 5,000 unit PO DAILY omeprazole 20 MG tablet,delayed release (DR/EC) 20 mg PO QHS pitavastatin calcium [Livalo] 2 mg Tablet 2 mg PO QPM dicyclomine 20 mg Tablet 20 mg PO BID alendronate 70 mg tablet 70 mg PO QWEEK Primary Care Provider: Jimbo Dash Referrals: Jimbo Dash MD [Primary Care Provider] - Print Language: Danish
[2023-11-28 13:48] LABS: Anion Gap 2 (5-15); BUN 20 mg/dL (7-18); BUN/Creat Ratio 23.9 RATIO (10-20); Calcium,Total 9.3 mg/dL (8.5-10.1); Chloride 112 mmol/L (98-107); Creatinine, Serum 0.84 mg/dL (0.55-1.02); EST Glomerular Filtration Rate 74 mL/min (>60); Est Glom Filt Rate - Afr Amer 90 mL/min (>60); Estimated Creatinine Clearance 68.87 ml/min; Glucose 93 mg/dL (74-106); Potassium 4.1 mmol/L (3.5-5.1); Sodium Level 142 mmol/L (136-145)
[2023-11-28 13:50] LABS: International Normalized Ratio 0.9; Prothrombin Time (Protime)PT. 12.5 SECONDS (11.7-14.9)
[2023-11-28 13:51] LABS: Bacteria 2+ /hpf (None Seen); Mucous, Urine 2+ /hpf (<or=2+); Squamous Epithelial Cells - UA 5-10 SEEN /hpf (5-10)
[2023-11-28 13:51] LABS: Partial Thromboplast Time 26.5 Seconds (24.1-36.2)
[2023-11-28 13:52] LABS: Calcium Oxalate Crystals Ur 1+ /hpf (<or=2+); White Blood Cells 50-100 SEEN /hpf (0-5)
[2023-11-28] MEDS: Ceftriaxone 1 GM/50 ML BAG IV (14:10)
[2023-11-28] MEDS: Heparin Injection (Vial) 5,000 UNIT/ML VIAL 4500 UNIT IV (14:19)
[2023-11-28] MEDS: HEPARIN/D5w 25,000 UNITS 25,000 UNITS/250 ML IV.SOLN. 10 UNITS CONT INF (14:20)
[2023-11-28] MEDS: Morphine 4 MG/ML Syringe IV (14:45)
[2023-11-28] MEDS: Ondansetron 4 MG/2 ML Vial IV (14:45)
[2023-11-28 15:00] VITALS: BP 105/74; PULSE 81; RESP 17; TEMP 36.6; O2SAT 95
--- NOTE | 2023-11-28 15:13 | PCM.HP.STD ---
HPI - General General Date of Admission: 11/28/23 Date of Service: 11/28/23 Chief Complaint: Left leg pain and swelling HPI Narrative ARYAN AHN, is a 58 F with history of GERD, bilateral iliac vein stents, DVT in 2014 who presented to [facility] ED 11/28/2023 with increasing left lower extremity swelling. Patient presented to the emergency department and was found to have extensive left lower extremity DVT and she was started on heparin drip and vascular contacted. Additionally she had urinary frequency and burning so UA obtained and she was started on Rocephin. Due to the increasing swelling and pain hospitalist contacted for admission and vascular consultation. Patient evaluated at bedside and reports that last DVT was in 2014 and she was on Eliquis for a number of years but eventually was taken off, had bilateral iliac vein stents in 2022 and was on Plavix for a period of time but is since just been on aspirin, has had no concerns or complaints until the past day and a half with increased swelling and pain on the leg, patient denies any immobility and has been up moving around with work, did have a fall on Saturday where she hit her right leg but has not affected her mobility denies any left extremity injury. No shortness of breath or respiratory complaints. Additionally patient has had frequency and burning and suprapubic discomfort over the past several days and was supposed to have a outpatient UA done for possible UTI, slight headache but otherwise ROS negative [facility] Medical History (Updated 11/28/23 @ 15:[address] Carole Bower MD) Anemia Anxiety Arthritis Bladder disease Difficulty swallowing DVT (deep venous thrombosis) Gastric reflux History of echocardiogram History of pain when walking History of stress test Leg cramps Loss of hearing Non-smoker Restless legs Wears glasses Home Medications ?Medication ?Instructions ?Recorded ?Last Taken ?Type sertraline 100 mg tablet 50 mg PO BID anxiety 03/30/14 02/14/22 History Cholecalciferol (Vitamin D3) 5,000 unit PO DAILY supplement 03/07/20 02/14/22 History [Vitamin D3] cyanocobalamin (vitamin B-12) 3,000 mcg PO DAILY supplement 03/07/20 02/14/22 History 5,000 mcg disintegrating tablet omeprazole 20 mg tablet,delayed 20 mg PO QHS reflux 03/07/20 02/14/22 History release pitavastatin calcium 2 mg tablet 2 mg PO QPM 02/08/22 02/14/22 History (Livalo) cetirizine 10 mg capsule (Zyrtec) 10 mg PO DAILY 04/12/22 Unknown History dicyclomine 20 mg tablet 20 mg PO BID 10/02/22 Unknown History alendronate 70 mg tablet 70 mg PO QWEEK 11/28/23 Unknown History Allergy/AdvReac Type Severity Reaction Status Date / Time hydrocodone (From Vicodin) Allergy Nausea/Vom/ Verified 11/19/23 11:49 Diarrhea oxycodone AdvReac Itching Verified 11/19/23 11:49 Family History Mother Colon cancer Cancer ovary Diabetes Father Hypertension Surgical History Hx of bladder repair surgery Hx of colonoscopy Hx of cystoscopy Hx of shoulder surgery S/p bilateral carpal tunnel release S/P bunionectomy S/P cholecystectomy S/P hysterectomy S/P rotator cuff repair Social History Smoking Status: Never smoker alcohol intake: never ROS ROS Narrative General: Denies fever/chills HENT: Slight headache, denies stuffy nose, denies sore throat EYES: Denies changes in vision Resp: Denies cough, denies shortness of breath Cardiac: Denies chest pain GI: Denies abdominal pain, denies changes in bowel, denies nausea/vomiting : Suprapubic pressure, frequency, burning Extremity: Left lower extremity increased swelling and discomfort MSK: Denies weakness Neuro: Denies any numbness/tingling Heme: Denies any bleeding or bruising Skin: Denies rashes Psychiatric: No complaints voiced Vital Signs Vital Signs Vital Signs: 11/28/23 12:38 11/28/23 15:00 11/28/23 15:00 Temperature 96.2 F L 97.8 F 97.8 F Temperature Source Temporal Temporal Pulse Rate 103 H 81 81 Respiratory Rate 16 17 17 Blood Pressure 126/86 H 105/74 105/74 Blood Pressure Mean 99 84 84 Pulse Ox 96 95 95 Oxygen Delivery Method Room Air Room Air Weight Weight: 67.358 kg Body Mass Index (BMI) 25.4 Physical Exam Narrative General: Alert, oriented, no apparent distress HEENT: Atraumatic, normocephalic Eyes: Anicteric, normal conjunctiva, extraocular movements grossly intact Neck: Supple Respiratory: Clear to auscultation bilaterally, normal respiratory effort Cardiovascular: Regular rate and rhythm GI: Soft, nontender, nondistended Extremities: Left lower extremity swelling compared to right, does have some tenderness diffusely on leg, left lower extremity with 2+ pedal pulse Musculoskeletal: Moving all extremities Neuro: No overt focal neurological deficits Skin: No rashes appreciated, has small scrape on right harrell Psych: Cooperative Results Lab / Micro Data 11/28/23 13:28 11/28/23 13:28 Labs: Laboratory Results - last 24 hr 11/28/23 13:25: Urine Color Yellow, Urine Clarity Cloudy, Urine pH 6.0, Ur Specific [place] 1.015, Urine Protein 30 H, Urine Glucose (UA) Normal, Urine Ketones Negative, Urine Occult Blood 10 H, Urine Nitrite Negative, Urine Bilirubin Negative, Urine Urobilinogen Normal, Ur Leukocyte Esterase 500 H, Urine RBC 0 SEEN, Urine WBC 50-100 SEEN, Ur Squamous Epith Cells 5-10 SEEN, Calcium Oxalate Crystal 1+, Urine Bacteria 2+, Urine Mucus 2+ 11/28/23 13:28: WBC 7.7, RBC 4.72, Hgb 14.1, Hct 43.0, MCV 91.1, MCH 29.9, MCHC 32.8, RDW Std Deviation 43.0, RDW Coeff of Horacio 12.8, Plt Count 211, MPV 9.6, Immature Gran % (Auto) 0.400, Neut % (Auto) 72.0 H, Lymph % (Auto) 14.3 L, [place] % (Auto) 6.4, Eos % (Auto) 6.4 H, Baso % (Auto) 0.5, Absolute Neuts (auto) 5.5, Absolute Lymphs (auto) 1.10, Nucleated RBC % 0, PT 12.5, INR 0.9, APTT 26.5, Sodium 142, Potassium 4.1, Chloride 112 H, Carbon Dioxide 28.0, Anion Gap 2 L, BUN 20 H, Creatinine 0.84, Estim Creat Clear Calc 68.87, Est GFR (MDRD) Af Amer 90, Est GFR (MDRD) Non-Af 74, BUN/Creatinine Ratio 23.9 H, Glucose 93, Calcium 9.3 Imaging Radiology Impression Venous Doppler Study 11/28/23 12:51 Interpretation Summary Acute deep vein thrombosis is noted in the left common iliac vein, external iliac vein, common femoral vein, femoral vein, profunda femoral vein, popliteal vein, gastrocnemius vein, tibioperoneal trunk vein, soleal vein, posterior tibial vein, peroneal vein. Acute superficial vein thrombosis noted in the great saphenous vein in the thigh. Ordering Physician: Addison Rodríguez Referring Physician: Jimbo Dash Performed By: River Leblanc, RVT Assessment & Plan Assessment/Plan (1) Acute DVT (deep venous thrombosis): (2) GERD (gastroesophageal reflux disease): (3) UTI (urinary tract infection): PLAN: Plan #Acute LLE DVT w/ hx of DVT in 2014 -Lower extremity ultrasound with extensive left lower extremity DVT -Previously on Eliquis however was taken off after a number of years -Discussed with vascular and vascular consult placed for evaluation and possible thrombectomy -Given pts increased swelling and pain requiring morphine in ED pt admitted for inpt consultation -Continue heparin drip -Elevate leg # Concern for UTI -UA with squamous cells so may be slightly contaminated however does have bacteria and patient has symptoms consistent with UTI -Check urine culture continue Rocephin, first dose in ED #GERD -Continue PPI # History of bilateral iliac vein stenting -With Dr. Goldberg in 2022 #hx IBS -Continue dicyclomine #Allergies -Continue cetirizine #Anxiety -Continue zoloft #DVT ppx: Heparin linda Bower MD Time spent in the patient's overall evaluation,decision-making process, review of diagnostic data, adjustment of management, discussion with other providers, nursing nursing and ancillary staff involved in patient's care documentation, 56 minutes - Charges/Coding Visit Charges Inpatient E&M: 41526 Init Hosp L2
[2023-11-28 15:55] VITALS: BMI 25.7
[2023-11-28 16:00] VITALS: BP 125/73; PULSE 68; RESP 16; TEMP 36.8; O2SAT 99
[2023-11-28 16:30] VITALS: BP 125/73; PULSE 68; RESP 16; TEMP 36.8; O2SAT 99
--- NOTE | 2023-11-28 17:19 | EX.PCM.CON.S ---
Assessment & Plan Assessment/Plan (1) Acute DVT (deep venous thrombosis): PLAN: She has extensive LLE DVT up to the level of the CIV, she is a candidate for thrombectomy. 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 The procedure details including risks, benefits, and recovery were discussed and she is agreeable to proceed. Continue heparin drip. Elevate LLE above the level of the heart at times of rest, okay to ambulate as tolerated. HPI Consult Data Date of Consult: 11/28/23 HPI Narrative HPI Narrative: ARYAN AHN, is a 58 F who presented to the [facility] ER today with significant LLE pain and swelling. She reports that on Saturday she did trip and fall, but she didn't have any injury and was able to go about her usual activities following this. The last night she noticed some LLE discomfort and swelling and by this morning both were significantly worse and continued to worsen through the day leading her to the ER. She had a venous duplex which revealed significant LLE thrombus burden up to the CIV. She had significant discomfort requiring morphine so she was admitted with heparin drip. Patient is an established office patient. Recall that she has a history of recurrent RLE infrapopliteal DVT (provoked gastroc 2014, unprovoked PT 2016) for which she was on indefinite anticoagulation for several years. She was tested for Factor V which was negative, denies other hypercoagulable testing. She also had symptomatic varicose veins. 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 Following this, she was placed on DAPT with ASA and Plavix in addition to her Eliquis. It was felt that the central venous compression was the most likely source for her prior unprovoked DVT; therefore, her Eliquis was stopped about 6 months ago. After completing 1 year of DAPT, her Plavix was stopped about 1 week ago. Following the iliac vein stenting, she'd had significant improvement in her varicose vein related symptoms and to this point had not had any recurrent DVT or leg swelling/pain. [facility] Medical History Loss of hearing Wears glasses Arthritis Bladder disease DVT (deep venous thrombosis) Restless legs Difficulty swallowing Gastric reflux Non-smoker Leg cramps History of pain when walking History of echocardiogram History of stress test Anxiety Anemia Home Medications ?Medication ?Instructions ?Recorded ?Last Taken ?Type sertraline 100 mg tablet 50 mg PO BID anxiety 03/30/14 02/14/22 History Cholecalciferol (Vitamin D3) 5,000 unit PO DAILY supplement 03/07/20 02/14/22 History [Vitamin D3] cyanocobalamin (vitamin B-12) 3,000 mcg PO DAILY supplement 03/07/20 02/14/22 History 5,000 mcg disintegrating tablet omeprazole 20 mg tablet,delayed 20 mg PO QHS reflux 03/07/20 02/14/22 History release pitavastatin calcium 2 mg tablet 2 mg PO QPM 02/08/22 02/14/22 History (Livalo) cetirizine 10 mg capsule (Zyrtec) 10 mg PO DAILY 04/12/22 Unknown History dicyclomine 20 mg tablet 20 mg PO BID 10/02/22 Unknown History alendronate 70 mg tablet 70 mg PO QWEEK 11/28/23 Unknown History Allergy/AdvReac Type Severity Reaction Status Date / Time hydrocodone (From Vicodin) Allergy Nausea/Vom/ Verified 11/19/23 11:49 Diarrhea oxycodone AdvReac Itching Verified 11/19/23 11:49 Family History Mother Colon cancer Cancer ovary Diabetes Father Hypertension Surgical History Hx of bladder repair surgery Hx of cystoscopy Hx of shoulder surgery Hx of colonoscopy S/P rotator cuff repair S/P bunionectomy S/p bilateral carpal tunnel release S/P cholecystectomy S/P hysterectomy Social History Smoking Status: Never smoker alcohol intake: never Physical Exam Const alert, oriented x3, no apparent distress and average body habitus General Appearance: cooperative HEENT normocephalic, head/scalp atraumatic, hearing grossly normal bilaterally, external ears normal and external nose normal Eyes EOMs intact bilaterally General Eye: normal appearance of both eyes Neck General: normal visual inspection and trachea midline Resp normal respiratory effort Effort and Inspection: able to speak in complete sentences Cardio regular rate and regular rhythm Extremity Extremity Narrative: Significant LLE edema, compartments soft to palpation Skin no rashes or lesions noted Trauma: no lacerations or abrasions Neuro oriented x3, CN's II-XII intact bilaterally, moves all extremities, no focal motor deficits and no sensory deficits noted Speech: speech normal Psych mental status grossly normal Appearance: grossly normal Attitude: calm and engaged Activity / Motor Behavior: appropriate eye contact Judgement: judgement good Lab / Micro Data 11/28/23 13:28 11/28/23 13:28 Labs: Laboratory Results - last 24 hr 11/28/23 13:25: Urine Color Yellow, Urine Clarity Cloudy, Urine pH 6.0, Ur Specific [place] 1.015, Urine Protein 30 H, Urine Glucose (UA) Normal, Urine Ketones Negative, Urine Occult Blood 10 H, Urine Nitrite Negative, Urine Bilirubin Negative, Urine Urobilinogen Normal, Ur Leukocyte Esterase 500 H, Urine RBC 0 SEEN, Urine WBC 50-100 SEEN, Ur Squamous Epith Cells 5-10 SEEN, Calcium Oxalate Crystal 1+, Urine Bacteria 2+, Urine Mucus 2+ 11/28/23 13:28: WBC 7.7, RBC 4.72, Hgb 14.1, Hct 43.0, MCV 91.1, MCH 29.9, MCHC 32.8, RDW Std Deviation 43.0, RDW Coeff of Horacio 12.8, Plt Count 211, MPV 9.6, Immature Gran % (Auto) 0.400, Neut % (Auto) 72.0 H, Lymph % (Auto) 14.3 L, [place] % (Auto) 6.4, Eos % (Auto) 6.4 H, Baso % (Auto) 0.5, Absolute Neuts (auto) 5.5, Absolute Lymphs (auto) 1.10, Nucleated RBC % 0, PT 12.5, INR 0.9, APTT 26.5, Sodium 142, Potassium 4.1, Chloride 112 H, Carbon Dioxide 28.0, Anion Gap 2 L, BUN 20 H, Creatinine 0.84, Estim Creat Clear Calc 68.87, Est GFR (MDRD) Af Amer 90, Est GFR (MDRD) Non-Af 74, BUN/Creatinine Ratio 23.9 H, Glucose 93, Calcium 9.3 Imaging Radiology Impression Venous Doppler Study 11/28/23 12:51 Interpretation Summary Acute deep vein thrombosis is noted in the left common iliac vein, external iliac vein, common femoral vein, femoral vein, profunda femoral vein, popliteal vein, gastrocnemius vein, tibioperoneal trunk vein, soleal vein, posterior tibial vein, peroneal vein. Acute superficial vein thrombosis noted in the great saphenous vein in the thigh. Ordering Physician: Addison Rodríguez Referring Physician: Jimbo Dash Performed By: River Leblanc RVT Charges/Coding Visit Charges Inpatient E&M: 22107 Init Hosp L2
[2023-11-28] MEDS: Morphine 2 MG/ML Syringe IV (18:05)
[2023-11-28 20:37] LABS: Partial Thromboplast Time 105.7 Seconds (24.1-36.2)
[2023-11-28 21:44] VITALS: BP 109/75; PULSE 73; RESP 18; TEMP 35.8; O2SAT 97
[2023-11-28] MEDS: Acetaminophen 500 MG Tablet 1000 MG PO (21:46)
[2023-11-28] MEDS: Sertraline 50 MG Tablet PO (21:47)
[2023-11-28] MEDS: Atorvastatin Calcium 10 MG Tablet PO (21:47)
[2023-11-28] MEDS: Pantoprazole Sodium 20 MG Tablet PO (21:47)
[2023-11-28] MEDS: Dicyclomine 10 MG Capsule 20 MG PO (21:48)
[2023-11-29 02:53] LABS: Absolute Lymphocyte Count 1.52 X10^3/uL (0.83-4.51); Absolute Neutrophil Count 4.6 X10^3/uL (2.0-7.7); Basophil# 0.04 X10^3/uL; Basophil% 0.6 % (0-1); Eosinophil# 0.43 X10^3/uL; Hematocrit 39.5 % (37-47); Hemoglobin 12.9 g/dL (12.0-15.0); Lymphocyte # 1.52 X10^3/ul (0.83-4.51); Lymphocyte % 21.1 % (19-41); Mean Corp Hgb Conc 32.7 g/dL (32-36); Mean Corpuscular Hgb 29.5 pg (27.0-32.0); Mean Corpuscular Volume 90.4 fL (81-99); Mean Platelet Vol. 10.2 fl (6.2-12.0); Monocyte# 0.56 X10^3/uL; Monocyte% 7.8 % (0-10); NRBC Flagged by Analyzer 0 % (0-5); Neutrophil # 4.63 X10^3/uL (2.7-7.7); Neutrophil % 64.2 % (47-70); Platelet Count 195 K/mm3 (150-450); RBC Distribution Width CV 12.9 % (11.6-14.6); RBC Distribution Width SD 42.6 fl (35.1-43.9); Red Blood Count 4.37 M/mm3 (4.2-5.4); White Blood Count 7.2 K/mm3 (4.4-11.0)
[2023-11-29] MEDS: Morphine 2 MG/ML Syringe IV (02:56)
[2023-11-29 03:02] LABS: Partial Thromboplast Time 45.3 Seconds (24.1-36.2)
[2023-11-29 03:04] VITALS: BP 110/70; PULSE 60; RESP 18; TEMP 35.9; O2SAT 94
[2023-11-29 03:15] LABS: Anion Gap 6 (5-15); BUN 18 mg/dL (7-18); BUN/Creat Ratio 21.3 RATIO (10-20); Chloride 108 mmol/L (98-107); Creatinine, Serum 0.84 mg/dL (0.55-1.02); EST Glomerular Filtration Rate 73 mL/min (>60); Est Glom Filt Rate - Afr Amer 89 mL/min (>60); Estimated Creatinine Clearance 69.12 ml/min; Glucose 111 mg/dL (74-106); Sodium Level 138 mmol/L (136-145)
[2023-11-29] MEDS: Acetaminophen 500 MG Tablet 1000 MG PO ×3 (05:00→22:09)
[2023-11-29 09:21] VITALS: BP 112/64; PULSE 65; RESP 18; TEMP 36.6; O2SAT 95
[2023-11-29 09:23] LABS: Partial Thromboplast Time 51.4 Seconds (24.1-36.2)
[2023-11-29] MEDS: Dicyclomine 10 MG Capsule 20 MG PO ×2 (09:24→22:09)
[2023-11-29] MEDS: Ceftriaxone 1 GM/50 ML BAG IV (09:24)
[2023-11-29] MEDS: Loratadine 10 MG Tablet PO (09:24)
[2023-11-29] MEDS: Sertraline 50 MG Tablet PO ×2 (09:24→22:08)
--- NOTE | 2023-11-29 09:34 | PN.SURG_ITS ---
Subjective Subjective Patient was seen this morning resting comfortably in bed. She reports improvement in her lower extremity discomfort, now mostly just with discomfort in the proximal thigh/groin. She has been keeping her leg elevated on several pillows. No other complaints today. Objective Data Objective Data Vital Signs: Vital Signs Temp Pulse Resp BP Pulse Ox O2 Del Method 97.8 F 65 18 112/64 95 Room Air 11/29/23 09:21 11/29/23 09:21 11/29/23 09:21 11/29/23 09:21 11/29/23 09:21 11/29/23 09:21 Oxygen Delivery Method Room Air Weight: 149 lb 11.102 oz Body Mass Index (BMI) 25.7 Intake & Output: Intake and Output for Last 24 Hours 11/27/23 11/28/23 11/29/23 23:59 23:59 23:59 Intake Total 593.67 / 593.67 30.92 / 30.92 Balance 593.67 / 593.67 30.92 / 30.92 Lab / Micro Data 11/29/23 02:40 11/29/23 02:40 Labs: Laboratory Results - last 24 hr 11/28/23 13:25: Urine Color Yellow, Urine Clarity Cloudy, Urine pH 6.0, Ur Specific [place] 1.015, Urine Protein 30 H, Urine Glucose (UA) Normal, Urine Ketones Negative, Urine Occult Blood 10 H, Urine Nitrite Negative, Urine Bilirubin Negative, Urine Urobilinogen Normal, Ur Leukocyte Esterase 500 H, Urine RBC 0 SEEN, Urine WBC 50-100 SEEN, Ur Squamous Epith Cells 5-10 SEEN, Calcium Oxalate Crystal 1+, Urine Bacteria 2+, Urine Mucus 2+ 11/28/23 13:28: WBC 7.7, RBC 4.72, Hgb 14.1, Hct 43.0, MCV 91.1, MCH 29.9, MCHC 32.8, RDW Std Deviation 43.0, RDW Coeff of Horacio 12.8, Plt Count 211, MPV 9.6, Immature Gran % (Auto) 0.400, Neut % (Auto) 72.0 H, Lymph % (Auto) 14.3 L, [place] % (Auto) 6.4, Eos % (Auto) 6.4 H, Baso % (Auto) 0.5, Absolute Neuts (auto) 5.5, Absolute Lymphs (auto) 1.10, Nucleated RBC % 0, PT 12.5, INR 0.9, APTT 26.5, Sodium 142, Potassium 4.1, Chloride 112 H, Carbon Dioxide 28.0, Anion Gap 2 L, B UN 20 H, Creatinine 0.84, Estim Creat Clear Calc 68.87, Est GFR (MDRD) Af Amer 90, Est GFR (MDRD) Non-Af 74, BUN/Creatinine Ratio 23.9 H, Glucose 93, Calcium 9.3 11/28/23 19:50: APTT 105.7 H* 11/29/23 02:40: WBC 7.2, RBC 4.37, Hgb 12.9, Hct 39.5, MCV 90.4, MCH 29.5, MCHC 32.7, RDW Std Deviation 42.6, RDW Coeff of Horacio 12.9, Plt Count 195, MPV 10.2, Immature Gran % (Auto) 0.300, Neut % (Auto) 64.2, Lymph % (Auto) 21.1, [place] % (Auto) 7.8, Eos % (Auto) 6.0 H, Baso % (Auto) 0.6, Absolute Neuts (auto) 4.6, Absolute Lymphs (auto) 1.52, Nucleated RBC % 0, APTT 45.3 H, Sodium 138, Potassium 4.0, Chloride 108 H, Carbon Dioxide 24.0, Anion Gap 6, BUN 18, Creatinine 0.84, Estim Creat Clear Calc 69.12, Est GFR (MDRD) Af Amer 89, Est GFR (MDRD) Non-Af 73, BUN/Creatinine Ratio 21.3 H, Glucose 111 H, Calcium 9.0 11/29/23 08:51: APTT 51.4 H Radiography Diagnostic Testing: Radiology Impression Venous Doppler Study 11/28/23 12:51 Interpretation Summary Acute deep vein thrombosis is noted in the left common iliac vein, external iliac vein, common femoral vein, femoral vein, profunda femoral vein, popliteal vein, gastrocnemius vein, tibioperoneal trunk vein, soleal vein, posterior tibial vein, peroneal vein. Acute superficial vein thrombosis noted in the great saphenous vein in the thigh. Ordering Physician: Addison Rodríguez Referring Physician: Jimbo Dash Performed By: River Leblanc RVT Physical Exam Const alert, oriented x3, no apparent distress and average body habitus General Appearance: cooperative HEENT normocephalic, head/scalp atraumatic, hearing grossly normal bilaterally, external ears normal and external nose normal Eyes EOMs intact bilaterally General Eye: normal appearance of both eyes Neck General: normal visual inspection and trachea midline Resp normal respiratory effort Effort and Inspection: able to speak in complete sentences Cardio regular rate and regular rhythm Extremity Extremity Narrative: Significant LLE edema, compartments soft to palpation Skin no rashes or lesions noted Trauma: no lacerations or abrasions Neuro oriented x3, CN's II-XII intact bilaterally, moves all extremities, no focal motor deficits and no sensory deficits noted Speech: speech normal Psych mental status grossly normal Appearance: grossly normal Attitude: calm and engaged Activity / Motor Behavior: appropriate eye contact Judgement: judgement good Assessment & Plan Assessment/Plan (1) Acute DVT (deep venous thrombosis): PLAN: She is scheduled for venogram with thrombectomy in the cathode builder Saturday at 8 AM. Continue heparin drip. Elevate LLE above the level of the heart at times of rest, okay to ambulate as tolerated. Charges/Coding Visit Charges Inpatient E&M: 57499 Subs Hosp L1
[2023-11-29] MEDS: Heparin Injection (Vial) 5,000 UNIT/ML VIAL IV (09:44)
--- NOTE | 2023-11-29 10:51 | PCM.PN.HOSP ---
Reason for Visit Reason for Visit: Diagnoses Acute embolism and thrombosis of unspecified deep veins of unspecified lower extremity (11/28/23) Gastro-esophageal reflux disease without esophagitis (11/28/23) Urinary tract infection, site not specified (11/28/23) Subjective Subjective Patient admitted yesterday afternoon for extensive left lower extremity DVT. No acute events overnight. Saw patient at bedside this morning. Patient was walking around the room slowly when I saw her, was tolerating ambulation without issue. Noted she had been seen by vascular surgery this morning who encouraged ambulation as able and elevating the leg when she is in bed. She states that the leg swelling feels slightly improved today from yesterday. Has only mild pain in the leg this morning. Otherwise denies any new concerns this morning. Objective Data Objective Data Vital Signs: Vital Signs Temp Pulse Resp BP Pulse Ox O2 Del Method 97.8 F 65 18 112/64 95 Room Air 11/29/23 09:21 11/29/23 09:21 11/29/23 09:21 11/29/23 09:21 11/29/23 09:21 11/29/23 09:21 Oxygen Delivery Method Room Air Weight: 67.9 kg Body Mass Index (BMI) 25.7 Intake & Output: Intake and Output for Last 24 Hours 11/27/23 11/28/23 11/29/23 23:59 23:59 23:59 Intake Total 593.67 / 593.67 133.85 / 133.85 Balance 593.67 / 593.67 133.85 / 133.85 Lab / Micro Data 11/29/23 02:40 11/29/23 02:40 Labs: Laboratory Results - last 24 hr 11/28/23 13:25: Urine Color Yellow, Urine Clarity Cloudy, Urine pH 6.0, Ur Specific [place] 1.015, Urine Protein 30 H, Urine Glucose (UA) Normal, Urine Ketones Negative, Urine Occult Blood 10 H, Urine Nitrite Negative, Urine Bilirubin Negative, Urine Urobilinogen Normal, Ur Leukocyte Esterase 500 H, Urine RBC 0 SEEN, Urine WBC 50-100 SEEN, Ur Squamous Epith Cells 5-10 SEEN, Calcium Oxalate Crystal 1+, Urine Bacteria 2+, Urine Mucus 2+ 11/28/23 13:28: WBC 7.7, RBC 4.72, Hgb 14.1, Hct 43.0, MCV 91.1, MCH 29.9, MCHC 32.8, RDW Std Deviation 43.0, RDW Coeff of Horacio 12.8, Plt Count 211, MPV 9.6, Immature Gran % (Auto) 0.400, Neut % (Auto) 72.0 H, Lymph % (Auto) 14.3 L, [place] % (Auto) 6.4, Eos % (Auto) 6.4 H, Baso % (Auto) 0.5, Absolute Neuts (auto) 5.5, Absolute Lymphs (auto) 1.10, Nucleated RBC % 0, PT 12.5, INR 0.9, APTT 26.5, Sodium 142, Potassium 4.1, Chloride 112 H, Carbon Dioxide 28.0, Anion Gap 2 L, BUN 20 H, Creatinine 0.84, Estim Creat Clear Calc 68.87, Est GFR (MDRD) Af Amer 90, Est GFR (MDRD) Non-Af 74, BUN/Creatinine Ratio 23.9 H, Glucose 93, Calcium 9.3 11/28/23 19:50: APTT 105.7 H* 11/29/23 02:40: WBC 7.2, RBC 4.37, Hgb 12.9, Hct 39.5, MCV 90.4, MCH 29.5, MCHC 32.7, RDW Std Deviation 42.6, RDW Coeff of Horacio 12.9, Plt Count 195, MPV 10.2, Immature Gran % (Auto) 0.300, Neut % (Auto) 64.2, Lymph % (Auto) 21.1, [place] % (Auto) 7.8, Eos % (Auto) 6.0 H, Baso % (Auto) 0.6, Absolute Neuts (auto) 4.6, Absolute Lymphs (auto) 1.52, Nucleated RBC % 0, APTT 45.3 H, Sodium 138, Potassium 4.0, Chloride 108 H, Carbon Dioxide 24.0, Anion Gap 6, BUN 18, Creatinine 0.84, Estim Creat Clear Calc 69.12, Est GFR (MDRD) Af Amer 89, Est GFR (MDRD) Non-Af 73, BUN/Creatinine Ratio 21.3 H, Glucose 111 H, Calcium 9.0 11/29/23 08:51: APTT 51.4 H Radiography Diagnostic Testing: Radiology Impression Venous Doppler Study 11/28/23 12:51 Interpretation Summary Acute deep vein thrombosis is noted in the left common iliac vein, external iliac vein, common femoral vein, femoral vein, profunda femoral vein, popliteal vein, gastrocnemius vein, tibioperoneal trunk vein, soleal vein, posterior tibial vein, peroneal vein. Acute superficial vein thrombosis noted in the great saphenous vein in the thigh. Ordering Physician: Addison Rodríguez Referring Physician: Jimbo Dash Performed By: River Leblanc RVT Physical Exam Const alert, oriented x3, no apparent distress and average body habitus Constitutional Narrative: Pleasant middle-age female, standing comfortably at side of bed, conversing normally, no acute distress. General Appearance: cooperative and comfortable HEENT normocephalic, head/scalp atraumatic, hearing grossly normal bilaterally, nasal mucous membranes and turbinates normal and moist oral mucous membranes Eyes PERRL, EOMs intact bilaterally and conjunctivae normal Neck full ROM Chest inspection of chest normal Resp normal respiratory effort, normal air movement, no use of accessory muscles and clear to auscultation bilaterally Cardio regular rate, regular rhythm, no murmurs and peripheral pulses 2+ throughout GI normal to inspection, nondistended, normoactive bowel sounds, soft to palpation, non-tender and non-distended Back/Spine normal ROM Extremity full ROM Extremity Narrative: Left leg with +1-2 nonpitting edema throughout. No tenderness to palpation. Skin no rashes or lesions noted Neuro no focal motor deficits and no sensory deficits noted Speech: speech normal Psych mental status grossly normal Assessment & Plan Assessment/Plan (1) Acute DVT (deep venous thrombosis): PLAN: Plan Patient is a 58-year-old female who presented [facility] ED on 11/28/2023 with worsening left lower extremity swelling. 1. Extensive left lower extremity DVT, history of DVT with bilateral iliac vein stenting ? Vascular surgery following. Venous Doppler study on admit showed acute DVT from common iliac vein to down past the knee. Stable on room air, no concern for PE. Patient notably had DVT back in 2014 suspected due to chronic compression and had bilateral iliac vein stenting done with Dr. Goldberg in 2022. Per vascular surgery, scheduled for venogram with thrombectomy on Saturday morning 12/01. Continue heparin drip. Continue to elevate LLE when at rest, okay to ambulate as tolerated. 2. Concern for UTI ? UA on admit showed 500 leukocyte esterase, negative nitrites, 2+ bacteria. Patient denies any urinary symptoms. Urine culture with no growth. Started on ceftriaxone on admission, discontinued on 11/28. Chronic medical conditions: ? GERD: Continue home PPI. ? IBS: Continue home dicyclomine. ? Allergies: Continue home cetirizine. ? Anxiety: Continue home Zoloft. DVT prophylaxis: Not indicated, on heparin drip CODE STATUS: Full code, verified Expected disposition: Home, TBD Total clinical time spent by myself addressing the patient's medical issues, reviewing all the data, and collaborating with patient's care team: 35 minutes. Charges/Coding Visit Charges Inpatient E&M: 22572 Subs Hosp L2
--- NOTE | 2023-11-29 11:05 | CASEMGMT ---
RN CM Face to Face with patient for initial transition planning/care coordination assessment. RN CM introduced self and role at [facility]. Patient lying in bed, alert and oriented. Patient willing to participate in assessment and is able to answer all questions appropriately. Care providers, pharmacy, and demographics verified. Lace: 5 Strata: 1 PCP: Hardy Specialists: Ashlyn Salgado Pharmacy: [facility] Retail Insurance: [employer] [facility] Prescription Benefit: yes Living Will/HPOA: none LNOK: Living Arrangements: Patient lives with in a single story home with 4 steps and railing to enter the home. Patient is independent at home. Transportation: self, DME/HHC: Patient denies DME in the home. No previous HHC or SNF Patient wishes to discharge home, denies need for home health at this time. Patient states she has no further needs or concerns at this time. CM to follow for discharge planning needs that may arise. Disposition Plan: Patient to discharge home with family support and follow-up plans in place. Kacey HESTER, RN, CM
--- NOTE | 2023-11-29 14:45 | CHAPLAIN ---
Type of Pastoral Visit _x__ Initial Visit ___ Follow-up Visit ___ On-call Visit ___ General Patient Visit ___ Spiritual Assessment ___ Family Conference ___ Bereavement ___ Rapid Response ___ Code Blue ___ Other (describe below) Pastoral Care Referral From _x__ Patient ___ Family ___ Nurse ___ Physician ___ Compact Assembler ___ Building Attendant ___ Other (describe below) Sacrament/Intervention _x__ Active listening ___ Anointing ___ Yazdanism ___ Bereavement ___ Communion ___ [place] exploration ___ ___ Life review ___ Prayer ___ Reconciliation ___ Sacrament of Sick ___ Supportive presence ___ Wedding ___ Other (describe below) Pastoral Comments patient reports doing much better now and has support from a daughter in the room; conversation and presence given
[2023-11-29 15:00] VITALS: BP 104/68; PULSE 68; RESP 18; TEMP 36.8; O2SAT 93
[2023-11-29 19:00] VITALS: PULSE 77
[2023-11-29 20:21] VITALS: BP 115/70; PULSE 77; RESP 14; TEMP 36.1; O2SAT 94
[2023-11-29 20:36] LABS: Partial Thromboplast Time 74.9 Seconds (24.1-36.2)
[2023-11-29] MEDS: Atorvastatin Calcium 10 MG Tablet PO (22:08)
[2023-11-29] MEDS: Pantoprazole Sodium 20 MG Tablet PO (22:11)
[2023-11-29] MEDS: HEPARIN/D5w 25,000 UNITS 25,000 UNITS/250 ML IV.SOLN. 8 UNITS CONT INF (22:14)
[2023-11-29 23:00] VITALS: PULSE 82
[2023-11-30 02:44] LABS: Partial Thromboplast Time 100.3 Seconds (24.1-36.2)
[2023-11-30 03:00] VITALS: PULSE 67
[2023-11-30] MEDS: Acetaminophen 500 MG Tablet 1000 MG PO ×3 (06:28→21:20)
[2023-11-30 06:51] LABS: Hematocrit 37.8 % (37-47); Mean Corp Hgb Conc 31.7 g/dL (32-36); Mean Corpuscular Hgb 29.3 pg (27.0-32.0); Mean Corpuscular Volume 92.4 fL (81-99); Mean Platelet Vol. 10.3 fl (6.2-12.0); Platelet Count 173 K/mm3 (150-450); RBC Distribution Width CV 12.9 % (11.6-14.6); RBC Distribution Width SD 43.2 fl (35.1-43.9); Red Blood Count 4.09 M/mm3 (4.2-5.4); White Blood Count 5.3 K/mm3 (4.4-11.0)
[2023-11-30 08:58] VITALS: BP 116/84; PULSE 74; RESP 18; TEMP 36.6; O2SAT 96
[2023-11-30] MEDS: Dicyclomine 10 MG Capsule 20 MG PO ×2 (09:04→21:21)
[2023-11-30] MEDS: Sertraline 50 MG Tablet PO ×2 (09:05→21:20)
[2023-11-30] MEDS: Loratadine 10 MG Tablet PO (09:05)
[2023-11-30 10:05] LABS: Partial Thromboplast Time 56.5 Seconds (24.1-36.2)
--- NOTE | 2023-11-30 10:12 | CASEMGMT ---
Social Work Pt completed LW/POA w/SW, she named her as healthcare POA. SW gave pt originals and copies, and copies placed on chart. ISAIAS Gonzales
--- NOTE | 2023-11-30 10:29 | PCM.PN.HOSP ---
Reason for Visit Reason for Visit: Diagnoses Acute embolism and thrombosis of unspecified deep veins of unspecified lower extremity (11/28/23) Gastro-esophageal reflux disease without esophagitis (11/28/23) Urinary tract infection, site not specified (11/28/23) Subjective Subjective No acute events overnight. Saw patient at bedside this morning. Patient appeared similar today to yesterday. She was walking around the room when I saw her again today and was doing well. She stated that her leg pain continued to feel improved today and the swelling was mildly improved from yesterday. She denied any new pain or discomfort. No other new concerns today. Objective Data Objective Data Vital Signs: Vital Signs Temp Pulse Resp BP Pulse Ox O2 Del Method 98 F 74 18 116/84 H 96 Room Air 11/30/23 08:58 11/30/23 08:58 11/30/23 08:58 11/30/23 08:58 11/30/23 08:58 11/30/23 09:09 Oxygen Delivery Method Room Air Weight: 67.9 kg Body Mass Index (BMI) 25.7 Intake & Output: Intake and Output for Last 24 Hours 11/28/23 11/29/23 11/30/23 23:59 23:59 23:59 Intake Total 593.67 / 593.67 1361.33 / 1361.33 386.67 / 386.67 Balance 593.67 / 593.67 1361.33 / 1361.33 386.67 / 386.67 Lab / Micro Data 11/30/23 06:25 11/29/23 02:40 Labs: Laboratory Results - last 24 hr 11/29/23 15:15: APTT 85.0 H 11/29/23 20:06: APTT 74.9 H 11/30/23 02:15: APTT 100.3 H* 11/30/23 06:25: WBC 5.3, RBC 4.09 L, Hgb 12.0, Hct 37.8, MCV 92.4, MCH 29.3, MCHC 31.7 L, RDW Std Deviation 43.2, RDW Coeff of Horacio 12.9, Plt Count 173, MPV 10.3 11/30/23 08:50: APTT 56.5 H Micro: Microbiology 11/28/23 18:30 Urine, Clean Catch Urine Culture - Preliminary Culture exhibits no growth. Physical Exam Const alert, oriented x3, no apparent distress and average body habitus Constitutional Narrative: Pleasant middle-age female, standing comfortably at side of bed, conversing normally, no acute distress. General Appearance: cooperative and comfortable HEENT normocephalic, head/scalp atraumatic, hearing grossly normal bilaterally, nasal mucous membranes and turbinates normal and moist oral mucous membranes Eyes PERRL, EOMs intact bilaterally and conjunctivae normal Neck full ROM Chest inspection of chest normal Resp normal respiratory effort, normal air movement, no use of accessory muscles and clear to auscultation bilaterally Cardio regular rate, regular rhythm, no murmurs and peripheral pulses 2+ throughout GI normal to inspection, nondistended, normoactive bowel sounds, soft to palpation, non-tender and non-distended Back/Spine normal ROM Extremity full ROM Extremity Narrative: Left leg with +1-2 nonpitting edema. No tenderness to palpation. Stable. Skin no rashes or lesions noted Neuro no focal motor deficits and no sensory deficits noted Speech: speech normal Psych mental status grossly normal Assessment & Plan Assessment/Plan (1) Acute DVT (deep venous thrombosis): PLAN: Plan Patient is a 58-year-old female who presented [facility] ED on 11/28/2023 with worsening left lower extremity swelling. 1. Extensive left lower extremity DVT, history of DVT with bilateral iliac vein stenting ? Vascular surgery following. Venous Doppler study on admit showed acute DVT from common iliac vein to down past the knee. Stable on room air, no concern for PE. Patient notably had DVT back in 2014 suspected due to chronic compression and had bilateral iliac vein stenting done with Dr. Goldberg in 2022. Per vascular surgery, scheduled for venogram with thrombectomy on Saturday morning 12/01. Continue heparin drip. Continue to elevate LLE when at rest, okay to ambulate as tolerated. 2. Concern for UTI ? UA on admit showed 500 leukocyte esterase, negative nitrites, 2+ bacteria. Patient denies any urinary symptoms. Urine culture with no growth. Started on ceftriaxone on admission, discontinued on 11/28. Chronic medical conditions: ? GERD: Continue home PPI. ? IBS: Continue home dicyclomine. ? Allergies: Continue home cetirizine. ? Anxiety: Continue home Zoloft. DVT prophylaxis: Not indicated, on heparin drip CODE STATUS: Full code, verified Expected disposition: Home, 2 to 3 days Total clinical time spent by myself addressing the patient's medical issues, reviewing all the data, and collaborating with patient's care team: 35 minutes. Charges/Coding Visit Charges Inpatient E&M: 96375 Subs Hosp L2
[2023-11-30] MEDS: LORazepam 0.5 MG Tablet PO (13:28)
[2023-11-30 15:11] VITALS: BP 119/68; PULSE 83; RESP 16; TEMP 36.6; O2SAT 94
[2023-11-30 16:45] LABS: Partial Thromboplast Time 36.9 Seconds (24.1-36.2)
[2023-11-30] MEDS: Heparin Injection (Vial) 5,000 UNIT/ML VIAL IV (17:18)
[2023-11-30 20:10] VITALS: BP 122/83; PULSE 77; RESP 16; TEMP 36.7; O2SAT 98
[2023-11-30] MEDS: Pantoprazole Sodium 20 MG Tablet PO (21:21)
[2023-11-30] MEDS: Atorvastatin Calcium 10 MG Tablet PO (21:21)
[2023-12-01 02:00] VITALS: BP 120/81; PULSE 70; RESP 16; TEMP 36.7; O2SAT 98
[2023-12-01 02:37] VITALS: RESP 16
[2023-12-01 05:45] LABS: Partial Thromboplast Time 49.1 Seconds (24.1-36.2)
[2023-12-01 06:01] VITALS: BP 111/72; PULSE 67; RESP 16; TEMP 36.7; O2SAT 92
[2023-12-01] MEDS: Acetaminophen 500 MG Tablet 1000 MG PO ×3 (06:07→21:10)
[2023-12-01] MEDS: HEPARIN/D5w 25,000 UNITS 25,000 UNITS/250 ML IV.SOLN. 9 UNITS CONT INF ×2 (06:13→09:14)
[2023-12-01] MEDS: Heparin Injection (Vial) 5,000 UNIT/ML VIAL IV ×2 (06:20→19:26)
[2023-12-01] MEDS: Senna/Docusate Sodium 1 Tablet 2 TABLET PO ×2 (07:21→16:13)
[2023-12-01] MEDS: Dicyclomine 10 MG Capsule 20 MG PO ×2 (07:22→21:09)
[2023-12-01] MEDS: Loratadine 10 MG Tablet PO (07:23)
[2023-12-01] MEDS: Sertraline 50 MG Tablet PO ×2 (07:23→21:10)
[2023-12-01 07:34] VITALS: BP 119/79; PULSE 79; RESP 14; TEMP 36.3; O2SAT 95
--- NOTE | 2023-12-01 10:54 | PCM.PN.SRG ---
Subjective Subjective I saw Karolina today resting comfortably in bed with her LLE elevated. She reports persistent pain in her upper thigh/groin but otherwise improved discomfort through the rest of her leg, her leg feels much less tight in general. She has been ambulating around her room and tolerating this well. No other complaints today. Objective Data Objective Data Vital Signs: Vital Signs Temp Pulse Resp BP Pulse Ox O2 Del Method 97.4 F L 79 14 119/79 95 Room Air 12/01/23 07:34 12/01/23 07:34 12/01/23 07:34 12/01/23 07:34 12/01/23 07:34 12/01/23 07:34 Oxygen Delivery Method Room Air Weight: 149 lb 11.102 oz Body Mass Index (BMI) 25.7 Intake & Output: Intake and Output for Last 24 Hours 11/29/23 11/30/23 12/01/23 23:59 23:59 23:59 Intake Total 1361.33 / 1361.33 1947.97 / 2447.97 881.02 / 881.02 Balance 1361.33 / 1361.33 1947.97 / 2447.97 881.02 / 881.02 Lab / Micro Data 11/30/23 06:25 11/29/23 02:40 Labs: Laboratory Results - last 24 hr 11/30/23 16:25: APTT 36.9 H 11/30/23 22:33: APTT 61.0 H 12/01/23 05:20: APTT 49.1 H Micro: Microbiology 11/28/23 18:30 Urine, Clean Catch Urine Culture - Final Culture exhibits no growth. Physical Exam Const alert, oriented x3, no apparent distress and average body habitus General Appearance: cooperative HEENT normocephalic, head/scalp atraumatic, hearing grossly normal bilaterally, external ears normal and external nose normal Eyes EOMs intact bilaterally General Eye: normal appearance of both eyes Neck General: normal visual inspection and trachea midline Resp normal respiratory effort Effort and Inspection: able to speak in complete sentences Cardio regular rate and regular rhythm Extremity Extremity Narrative: Significant LLE edema, compartments soft to palpation Skin no rashes or lesions noted Trauma: no lacerations or abrasions Neuro oriented x3, CN's II-XII intact bilaterally, moves all extremities, no focal motor deficits and no sensory deficits noted Speech: speech normal Psych mental status grossly normal Appearance: grossly normal Attitude: calm and engaged Activity / Motor Behavior: appropriate eye contact Judgement: judgement good Assessment & Plan Assessment/Plan (1) Acute DVT (deep venous thrombosis): PLAN: We discussed venogram with thrombectomy procedure details today. All of her questions were addressed. She remains agreeable to proceed. 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 Proceed with LLE venogram with thrombectomy in the energy systems laboratory director tomorrow at 0800. NPO after midnight. Charges/Coding Visit Charges Inpatient E&M: 93466 Subs Hosp L2
--- NOTE | 2023-12-01 11:47 | PN.HOSP_ITS ---
Reason for Visit Reason for Visit: Diagnoses Acute embolism and thrombosis of unspecified deep veins of unspecified lower extremity (11/28/23) Gastro-esophageal reflux disease without esophagitis (11/28/23) Urinary tract infection, site not specified (11/28/23) Subjective Subjective No acute events overnight. Saw patient bedside this morning. Patient appeared similar today to previous days. Sitting up comfortably in bed, no acute distress. She is somewhat anxious about her procedure tomorrow but otherwise no new concerns today. Objective Data Objective Data Vital Signs: Vital Signs Temp Pulse Resp BP Pulse Ox O2 Del Method 97.4 F L 79 14 119/79 95 Room Air 12/01/23 07:34 12/01/23 07:34 12/01/23 07:34 12/01/23 07:34 12/01/23 07:34 12/01/23 07:34 Oxygen Delivery Method Room Air Weight: 67.9 kg Body Mass Index (BMI) 25.7 Intake & Output: Intake and Output for Last 24 Hours 11/29/23 11/30/23 12/01/23 23:59 23:59 23:59 Intake Total 1361.33 / 1361.33 1947.97 / 2447.97 881.02 / 881.02 Balance 1361.33 / 1361.33 1947.97 / 2447.97 881.02 / 881.02 Lab / Micro Data 11/30/23 06:25 11/29/23 02:40 Labs: Laboratory Results - last 24 hr 11/30/23 16:25: APTT 36.9 H 11/30/23 22:33: APTT 61.0 H 12/01/23 05:20: APTT 49.1 H Micro: Microbiology 11/28/23 18:30 Urine, Clean Catch Urine Culture - Final Culture exhibits no growth. Physical Exam Const alert, oriented x3, no apparent distress and average body habitus Constitutional Narrative: Pleasant middle-age female, standing comfortably at side of bed, conversing normally, no acute distress. General Appearance: cooperative and comfortable HEENT normocephalic, head/scalp atraumatic, hearing grossly normal bilaterally, nasal mucous membranes and turbinates normal and moist oral mucous membranes Eyes PERRL, EOMs intact bilaterally and conjunctivae normal Neck full ROM Chest inspection of chest normal Resp normal respiratory effort, normal air movement, no use of accessory muscles and clear to auscultation bilaterally Cardio regular rate, regular rhythm, no murmurs and peripheral pulses 2+ throughout GI normal to inspection, nondistended, normoactive bowel sounds, soft to palpation, non-tender and non-distended Back/Spine normal ROM Extremity full ROM Extremity Narrative: Left leg with +1-2 nonpitting edema. No tenderness to palpation. Stable. Skin no rashes or lesions noted Neuro no focal motor deficits and no sensory deficits noted Speech: speech normal Psych mental status grossly normal Assessment & Plan Assessment/Plan (1) Acute DVT (deep venous thrombosis): PLAN: Plan Patient is a 58-year-old female who presented [facility] ED on 11/28/2023 with worsening left lower extremity swelling. 1. Extensive left lower extremity DVT, history of DVT with bilateral iliac vein stenting ? Vascular surgery following. Venous Doppler study on admit showed acute DVT from common iliac vein to down past the knee. Stable on room air, no concern for PE. Patient notably had DVT back in 2014 suspected due to chronic compression and had bilateral iliac vein stenting done with Dr. Goldberg in 2022. Per vascular surgery, scheduled for venogram with thrombectomy on Saturday morning 12/01. Continue heparin drip. Continue to elevate LLE when at rest, okay to ambulate as tolerated. 2. Concern for UTI ? UA on admit showed 500 leukocyte esterase, negative nitrites, 2+ bacteria. Patient denies any urinary symptoms. Urine culture with no growth. Started on ceftriaxone on admission, discontinued on 11/28. Chronic medical conditions: ? GERD: Continue home PPI. ? IBS: Continue home dicyclomine. ? Allergies: Continue home cetirizine. ? Anxiety: Continue home Zoloft. DVT prophylaxis: Not indicated, on heparin drip CODE STATUS: Full code, verified Expected disposition: Home, 2 to 3 days Total clinical time spent by myself addressing the patient's medical issues, reviewing all the data, and collaborating with patient's care team: 35 minutes. Charges/Coding Visit Charges Inpatient E&M: 68604 Subs Hosp L2
[2023-12-01] MEDS: LORazepam 0.5 MG Tablet PO (11:55)
[2023-12-01 12:42] LABS: Partial Thromboplast Time 57.8 Seconds (24.1-36.2)
[2023-12-01 15:53] VITALS: BP 119/86; PULSE 107; RESP 14; TEMP 36.7; O2SAT 96
[2023-12-01 18:13] LABS: Partial Thromboplast Time 53.4 Seconds (24.1-36.2)
[2023-12-01 21:00] VITALS: BP 109/77; PULSE 82; RESP 16; TEMP 36.3; O2SAT 97
[2023-12-01] MEDS: Pantoprazole Sodium 20 MG Tablet PO (21:10)
[2023-12-01] MEDS: Atorvastatin Calcium 10 MG Tablet PO (21:10)
[2023-12-01] MEDS: Morphine 2 MG/ML Syringe IV (22:12)
[2023-12-01] MEDS: MELATONIN 3 MG TABLET PO (22:12)
[2023-12-01] MEDS: 0.9% Saline Lock 10 ML Syringe IV (22:13)
[2023-12-02] VITALS (22 sets, daily range): BP systolic 88–122; BP diastolic 48–90; PULSE 67–87; RESP 14–16; TEMP 36.4–37; O2SAT 93–100
[2023-12-02] MEDS: LORazepam 0.5 MG Tablet PO (00:18)
[2023-12-02 02:01] LABS: Partial Thromboplast Time 79.8 Seconds (24.1-36.2)
--- NOTE | 2023-12-02 05:55 | EKG12_ITS ---
Test Reason : PRE-OP Blood Pressure : / mmHG Vent. Rate : 067 BPM Atrial Rate : 067 BPM P-R Int : 164 ms QRS Dur : 080 ms QT Int : 400 ms P-R-T Axes : 053 015 041 degrees QTc Int : 422 ms Normal sinus rhythm Normal ECG When compared with ECG of 21-MAR-2020 12:57, No significant change was found Confirmed by Cliff Flores ([id number]), business editor MARIE DEGROOT ([id number]) on 12/05/2023 9:11:13 AM Referred By: JORDI Confirmed By:Cliff Flores
[2023-12-02] MEDS: 0.9% Normal Saline (1000mL) 1,000 ML 15 ML IV (06:24)
[2023-12-02 06:29] LABS: Hematocrit 38.8 % (37-47); Hemoglobin 12.3 g/dL (12.0-15.0); Mean Corp Hgb Conc 31.7 g/dL (32-36); Mean Corpuscular Hgb 29.2 pg (27.0-32.0); Mean Corpuscular Volume 92.2 fL (81-99); Mean Platelet Vol. 9.8 fl (6.2-12.0); Platelet Count 213 K/mm3 (150-450); RBC Distribution Width CV 13.1 % (11.6-14.6); RBC Distribution Width SD 43.7 fl (35.1-43.9); Red Blood Count 4.21 M/mm3 (4.2-5.4); White Blood Count 5.7 K/mm3 (4.4-11.0)
[2023-12-02 06:57] LABS: Anion Gap 6 (5-15); BUN 14 mg/dL (7-18); BUN/Creat Ratio 20.1 RATIO (10-20); Calcium,Total 9.4 mg/dL (8.5-10.1); Chloride 107 mmol/L (98-107); EST Glomerular Filtration Rate 92 mL/min (>60); Est Glom Filt Rate - Afr Amer 111 mL/min (>60); Estimated Creatinine Clearance 83.72 ml/min; Glucose 99 mg/dL (74-106); Potassium 4.2 mmol/L (3.5-5.1); Sodium Level 138 mmol/L (136-145)
[2023-12-02] MEDS: CHLORHEXIDINE GLUC 2% CLOTH 1 EACH TOWELETTE TOPICAL (07:00)
--- NOTE | 2023-12-02 10:34 | PCM.OPRPT ---
Report of Operation Date of Procedure: 12/02/23 Pre-Operative Diagnosis: left lower extremity DVT Post-Operative Diagnosis: same Surgery/Procedure Performed:: IVC venogram bilateral lower extremity venogram percutaneous mechanical thrombectomy left lower extremity angioplasty bilateral common iliac veins IVUS IVC, bilateral common/external iliac vein Surgeon: Reji Goldberg Type of Anesthesia: Local and Sedation,Conscious Estimated Blood Loss (mL): 100 Description of Procedure: HPI: Patient is a 58-year-old female who previously underwent bilateral common iliac vein stents extending into the inferior vena cava for significant compression and related deep venous thrombosis. She had a 1 year surveillance duplex approximately 6 weeks prior which appeared satisfactory and she has completed her 1 year of dual antiplatelet currently now on only single antiplatelet agent. She presented with acute onset left lower extremity tightness pain and swelling was found to have extensive DVT up to and including the iliac vein. She is taken now for venogram with possible thrombectomy. Description of procedure: Upon obtaining form consent and verification correct patient procedure site patient was taken to the [facility] where she was positioned prepped and draped in usual sterile fashion. Time was performed consultation administered Versed and fentanyl. Skin overlying the left popliteal vein was anesthetized 1% lidocaine the vessel accessed with micropuncture needle and wire under ultrasound guidance. This then changed for micropuncture sheath routine injection left lower extremity venogram was performed which revealed patent popliteal and femoral vein with resolution of the thrombus that been visualized on her initial imaging. There was however continued thrombus burden in the common femoral vein, external iliac vein, common iliac vein. Through the micropuncture sheath a Glidewire advantage wire was advanced and the micropuncture sheath exchanged for a short 6 [place] sheath. Through the 6 [place] sheath using a quick cross catheter and the glide advantage we navigated across the total occlusion advancing our wire and catheter into the vena cava. The catheter was then withdrawn and the 6 [place] sheath exchanged for an 18 [place] sheath through which the intravascular ultrasound probe was advanced and recorded pullback performed of the IVC, left common iliac vein, left external leg vein, left common femoral vein, left femoral vein. This confirmed no significant thrombus in the femoral vein however there was acute appearing thrombus in the common femoral vein and the external iliac vein was mixed chronicity thrombus in the common iliac vein and stent. Patient was then bolused with heparin and the 18 [place] sheath exchanged for the 24 [place] Inari sheath. Next skin overlying the right popliteal vein was anesthetized 1% lidocaine the vessel accessed with a micropuncture needle wire and ultrasound guidance. This then exchanged for micropuncture sheath routine injection of extremity venogram was performed revealing satisfactory positioning no extravasation or dissection. This also confirmed patent vessels with brisk contrast transit. Through the micropuncture sheath a EveryRackson wire is advanced the micropuncture sheath exchanged for a 12 [place] sheath. Through the 12 [place] sheath intravascular sound probe was advanced and recorded pullback performed of the IVC, right common iliac vein, right external iliac vein. This revealed patent stent with no thrombus visualized. Of note both stents appear to be in satisfactory position and the left iliac vein stent at its superior aspect appeared to be compressed however this was in a segment of vena cava that was widely patent with no signs of compression. There was some webbing in this area which was felt to be potentially responsible for this stent compression. Review of the initial imaging and stent placement this area was not compressed at the time. Next the Inari flow retriever was brought in field prep for straw boss's instructions. The T20 catheter was then advanced in position and multiple aspirations were performed with blood return after filtration with significant thrombus returned. Passes and no further thrombus returned repeat venogram was performed which revealed majority of the femoral and iliac thrombus to be resolved. There were 2 areas of residual thrombus at the femoral head as well as in the midportion of the stent. Further aspirations were performed followed by aspiration with the T24 and angled T20 with somewhat further thrombus returned. Repeat venogram revealed what appeared to be either very adherent chronic thrombus or intimal hyperplasia in the mid aspect of the stent. Intravascular sound probe was then readvanced and this confirmed that this appeared to be very solid in appearance rather than any acute or subacute thrombus. Is felt that angioplasty would help potentially resolve this area of continuous stenosis so a an 18 mm Dutton XXL balloon was advanced in the position via the left popliteal access sheath. Next a Bard Berwick 16 mm advanced via the right popliteal access sheath. The Dutton balloon was then inflated for multiple inflations in the area of residual stenosis and then positioned more cephalad at which point both balloons were inflated simultaneously to angioplasty the distal vena cava and area of stent apposition. The balloon was then withdrawn and the Bard 16mm advanced via the left popliteal sheath and inflated to nominal along the area of stenosis given the higher burst pressure of this balloon. Repeat venogram revealed significant improvement with significant improvement and lumen size at the area of the restenosis. The initial visualized stenosis was 76% and postintervention stenosis was 40%. There is brisk contrast transit through the segment of vein with repeat venography is felt that no further intervention would be undertaken. Wires and catheters withdrawn and silk suture placed at the access sites followed by 10 minutes of manual pressure procedure withdrawn. Patient was then taken to the PCU for bedrest with continued inpatient treatment with unfractionated heparin.
[2023-12-02] MEDS: Loratadine 10 MG Tablet PO (11:50)
[2023-12-02] MEDS: Sertraline 50 MG Tablet PO ×2 (11:50→20:48)
[2023-12-02] MEDS: Dicyclomine 10 MG Capsule 20 MG PO ×2 (11:50→20:47)
[2023-12-02] MEDS: Acetaminophen 500 MG Tablet 1000 MG PO ×2 (13:30→20:47)
--- NOTE | 2023-12-02 13:58 | PCM.PN.HOSP ---
Reason for Visit Reason for Visit: Diagnoses Acute embolism and thrombosis of unspecified deep veins of unspecified lower extremity (11/28/23) Gastro-esophageal reflux disease without esophagitis (11/28/23) Urinary tract infection, site not specified (11/28/23) Subjective Subjective Saw patient at bedside later this morning after her thrombectomy procedure. Patient was laying comfortably in bed, had to lie flat for 3 hours post procedure and was doing fine. She denied any acute leg pain or discomfort. Denied any other concerns at this time. Objective Data Objective Data Vital Signs: Vital Signs Temp Pulse Resp BP Pulse Ox O2 Del Method 98 F 69 16 107/64 96 Room Air 12/02/23 13:39 12/02/23 13:39 12/02/23 13:39 12/02/23 13:39 12/02/23 13:39 12/02/23 13:39 Oxygen Delivery Method Room Air Weight: 69.3 kg Body Mass Index (BMI) 25.7 Intake & Output: Intake and Output for Last 24 Hours 11/30/23 12/01/23 12/02/23 23:59 23:59 23:59 Intake Total 1947.97 / 2447.97 2322.82 / 2322.82 218.45 / 218.45 Balance 1947.97 / 2447.97 2322.82 / 2322.82 218.45 / 218.45 Lab / Micro Data 12/02/23 06:06 12/02/23 06:06 Labs: Laboratory Results - last 24 hr 12/01/23 17:54: APTT 53.4 H 12/02/23 01:38: APTT 79.8 H 12/02/23 06:06: WBC 5.7, RBC 4.21, Hgb 12.3, Hct 38.8, MCV 92.2, MCH 29.2, MCHC 31.7 L, RDW Std Deviation 43.7, RDW Coeff of Horacio 13.1, Plt Count 213, MPV 9.8, Sodium 138, Potassium 4.2, Chloride 107, Carbon Dioxide 25.0, Anion Gap 6, BUN 14, Creatinine 0.70, Estim Creat Clear Calc 83.72, Est GFR (MDRD) Af Amer 111, Est GFR (MDRD) Non-Af 92, BUN/Creatinine Ratio 20.1 H, Glucose 99, Calcium 9.4 Micro: Microbiology 11/28/23 18:30 Urine, Clean Catch Urine Culture - Final Culture exhibits no growth. Physical Exam Const alert, oriented x3, no apparent distress and average body habitus Constitutional Narrative: Pleasant middle-age female, laying comfortably in bed, conversing normally, in no acute distress. General Appearance: cooperative and comfortable HEENT normocephalic, head/scalp atraumatic, hearing grossly normal bilaterally, nasal mucous membranes and turbinates normal and moist oral mucous membranes Eyes PERRL, EOMs intact bilaterally and conjunctivae normal Neck full ROM Chest inspection of chest normal Resp normal respiratory effort, normal air movement, no use of accessory muscles and clear to auscultation bilaterally Cardio regular rate, regular rhythm, no murmurs and peripheral pulses 2+ throughout GI normal to inspection, nondistended, normoactive bowel sounds, soft to palpation, non-tender and non-distended Back/Spine normal ROM Extremity full ROM Extremity Narrative: Bandage noted behind left knee, appears clean and dry. Left leg with continued +1-2 nonpitting edema with no tenderness to palpation, stable. Skin no rashes or lesions noted Neuro no focal motor deficits and no sensory deficits noted Speech: speech normal Psych mental status grossly normal Assessment & Plan Assessment/Plan (1) Acute DVT (deep venous thrombosis): PLAN: Plan Patient is a 58-year-old female who presented [facility] ED on 11/28/2023 with worsening left lower extremity swelling. 1. Extensive left lower extremity DVT, history of DVT with bilateral iliac vein stenting ? Vascular surgery following. Venous Doppler study on admit showed acute DVT from common iliac vein to down past the knee. Stable on room air, no concern for PE. Patient notably had DVT back in 2014 suspected due to chronic compression and had bilateral iliac vein stenting done with Dr. Goldberg in 2022. S/p IVC and bilateral lower extremity venogram with percutaneous mechanical thrombectomy of LLE angioplasty of bilateral common iliac veins on 12/01. Patient tolerated procedure well. Per vascular surgery, will continue on heparin drip today and if stable tomorrow, plan to transition to oral anticoagulation and discharge home. 2. Concern for UTI ? UA on admit showed 500 leukocyte esterase, negative nitrites, 2+ bacteria. Patient denies any urinary symptoms. Urine culture with no growth. Started on ceftriaxone on admission, discontinued on 8/2. Chronic medical conditions: ? GERD: Continue home PPI. ? IBS: Continue home dicyclomine. ? Allergies: Continue home cetirizine. ? Anxiety: Continue home Zoloft. DVT prophylaxis: Not indicated, on heparin drip CODE STATUS: Full code, verified Expected disposition: Home, 1 to 2 days Total clinical time spent by myself addressing the patient's medical issues, reviewing all the data, and collaborating with patient's care team: 35 minutes. Charges/Coding Visit Charges Inpatient E&M: 83133 Subs Hosp L2
[2023-12-02 14:01] LABS: ACT Activated Clotting Time 207 sec (74-137)
[2023-12-02 14:01] LABS: ACT Activated Clotting Time 232 sec (74-137)
[2023-12-02 14:01] LABS: ACT Activated Clotting Time 214 sec (74-137)
[2023-12-02] MEDS: Atorvastatin Calcium 10 MG Tablet PO (20:48)
[2023-12-02] MEDS: Pantoprazole Sodium 20 MG Tablet PO (20:48)
[2023-12-02] MEDS: HEPARIN/D5w 25,000 UNITS 25,000 UNITS/250 ML IV.SOLN. 6 UNITS CONT INF (20:50)
[2023-12-02] MEDS: Morphine 2 MG/ML Syringe IV (23:12)
[2023-12-02] MEDS: MELATONIN 3 MG TABLET PO (23:12)
[2023-12-03 02:53] VITALS: BP 98/60; PULSE 66; RESP 16; TEMP 36.7; O2SAT 95
[2023-12-03 03:37] LABS: Partial Thromboplast Time 37.2 Seconds (24.1-36.2)
[2023-12-03] MEDS: Heparin Injection (Vial) 5,000 UNIT/ML VIAL IV (03:57)
[2023-12-03] MEDS: Acetaminophen 500 MG Tablet 1000 MG PO (06:44)
[2023-12-03 06:50] VITALS: BP 116/67; PULSE 81; RESP 16; O2SAT 95
--- NOTE | 2023-12-03 08:46 | PN.SURG_ITS ---
Subjective Subjective Karolina was seen resting in bed this morning. She tolerated the procedure well yesterday. Significant clot burden was removed. She did have re-stenosis in the L iliac stent. She reports some discomfort in her back and expected discomfort at the bilateral popliteal fossa access sites. She has been on therapeutic heparin following the procedure yesterday, no bleed through. She has some mild bruising at the R popliteal fossa access site. Objective Data Objective Data Vital Signs: Vital Signs Temp Pulse Resp BP Pulse Ox O2 Del Method 98.1 F 81 16 116/67 95 Room Air 12/03/23 02:53 12/03/23 06:50 12/03/23 06:50 12/03/23 06:50 12/03/23 06:50 12/03/23 08:16 Oxygen Delivery Method Room Air Weight: 152 lb 12.485 oz Body Mass Index (BMI) 25.7 Intake & Output: Intake and Output for Last 24 Hours 12/01/23 12/02/23 12/03/23 23:59 23:59 23:59 Intake Total 2322.82 / 2322.82 933.35 / 933.35 43 / 43 Balance 2322.82 / 2322.82 933.35 / 933.35 43 / 43 Lab / Micro Data 12/02/23 06:06 12/02/23 06:06 Labs: Laboratory Results - last 24 hr 12/02/23 09:08: Activated Clotting Time 207 H 12/02/23 09:39: Activated Clotting Time 214 H 12/02/23 10:14: Activated Clotting Time 232 H 12/02/23 17:20: APTT 126.0 H* 12/03/23 02:50: APTT 37.2 H Micro: Microbiology 11/28/23 18:30 Urine, Clean Catch Urine Culture - Final Culture exhibits no growth. Physical Exam Const alert, oriented x3, no apparent distress and average body habitus General Appearance: cooperative HEENT normocephalic, head/scalp atraumatic, hearing grossly normal bilaterally, external ears normal and external nose normal Eyes EOMs intact bilaterally General Eye: normal appearance of both eyes Neck General: normal visual inspection and trachea midline Resp normal respiratory effort Effort and Inspection: able to speak in complete sentences Cardio regular rate and regular rhythm Extremity Extremity Narrative: Significant LLE edema, compartments soft to palpation. L popliteal fossa access site without ecchymosis, mild swelling soft to palpation R popliteal fossa access site with mild ecchymosis, mild swelling soft to palpation No bleed-through on either dressing Skin no rashes or lesions noted Trauma: no lacerations or abrasions Neuro oriented x3, CN's II-XII intact bilaterally, moves all extremities, no focal motor deficits and no sensory deficits noted Speech: speech normal Psych mental status grossly normal Appearance: grossly normal Attitude: calm and engaged Activity / Motor Behavior: appropriate eye contact Judgement: judgement good Assessment & Plan Assessment/Plan (1) Acute DVT (deep venous thrombosis): PLAN: Plan She is POD#1 from LLE venogram with thrombectomy and angioplasty L iliac vein. Back pain is common following iliac angioplasty and should gradually improve over the next 1-2 weeks, advise tylenol/oxycodone PRN and gentle heat. She has tolerated therapeutic heparin without bleeding overnight. Okay to transition to [facility] this morning. She may remove the dressings from the bilateral popliteal fossa access sites tomorrow. There is a suture in place at each site, these will be removed in the office in 1 week. Okay to shower, but do not submerge the access sites in water such as to take a bath, swim, etc for 2 weeks. She is instructed not to lift greater than 20 pounds for 2 weeks otherwise okay to proceed with activity as tolerated. I have provided her a work note with return to work on 12/09/23. Okay for discharge from vascular perspective with planned outpatient follow-up in 1 week. Charges/Coding Visit Charges Inpatient E&M: 47823 Subs Hosp L2
[2023-12-03] MEDS: Dicyclomine 10 MG Capsule 20 MG PO (10:16)
[2023-12-03] MEDS: Loratadine 10 MG Tablet PO (10:16)
[2023-12-03] MEDS: Sertraline 50 MG Tablet PO (10:16)
[2023-12-03 10:18] VITALS: BP 103/70; PULSE 97; TEMP 36.6; O2SAT 97
--- NOTE | 2023-12-03 10:56 | PCM.DC.SUM ---
Providers Date of Admission: 11/28/23 Date of Discharge: 12/03/23 Primary Care Physician: Dr. Jimbo Dash MD Consultations 11/28/23 15:53 Consult: Vascular Surgery Routine Consulting Provider: Reji Goldberg Reason for Consult: extensive LLE DVT EMERGENT Consult: No MD Notified: Yes Date Notified: 11/28/23 Time Notified: 15:20 Method of Notification: Verbal Reason For Visit: EXTENSIVE LE THROMBUS /with thrombectomy Diagnosis Discharge Diagnosis (1) Acute DVT (deep venous thrombosis): Status: Acute Code(s): I82.409 - Acute embolism and thrombosis of unspecified deep veins of unspecified lower extremity Medications at Discharge Home Medications sertraline 100 mg tablet 50 mg PO BID anxiety 03/30/14 Cholecalciferol (Vitamin D3) [Vitamin D3] 5,000 unit PO DAILY supplement 03/07/20 cyanocobalamin (vitamin B-12) 5,000 mcg disintegrating tablet 3,000 mcg PO DAILY supplement 03/07/20 omeprazole 20 mg tablet,delayed release 20 mg PO QHS reflux 03/07/20 pitavastatin calcium 2 mg tablet (Livalo) 2 mg PO QPM cholesterol 02/08/22 cetirizine 10 mg capsule (Zyrtec) 10 mg PO DAILY allergies 04/12/22 dicyclomine 20 mg tablet 20 mg PO BID IBS 10/02/22 alendronate 70 mg tablet 70 mg PO QWEEK bones 11/28/23 apixaban 5 mg (74 tabs) tablets in a dose pack (S[employer] acquired by [employer] DVT-PE Treat 30D Start) See Rx Instructions PO .COMPLEX #74 tabs 12/03/23 oxycodone 5 mg tablet 5 mg PO Q8H PRN pain 3 days #9 tabs 12/03/23 Hospital Course Operations None Procedures - (Venous Doppler study, IVC and bilateral lower extremity venogram with percutaneous mechanical thrombectomy of LLE angioplasty of bilateral common iliac veins) Summary of Care Provided Minutes Spent on Discharge: 35 Hospital Course: Patient is a 58-year-old female who presented [facility] ED on 11/28/2023 with worsening left lower extremity swelling. Hospital course as noted below. Patient discharged home with no therapy needs in stable condition on 12/02. 1. Extensive left lower extremity DVT, history of DVT with bilateral iliac vein stenting ? Vascular surgery followed. Venous Doppler study on admit showed acute DVT from common iliac vein to down past the knee. Stable on room air, no concern for PE. Patient notably had DVT back in 2014 suspected due to chronic compression and had bilateral iliac vein stenting done with Dr. Goldberg in 2022. S/p IVC and bilateral lower extremity venogram with percutaneous mechanical thrombectomy of LLE angioplasty of bilateral common iliac veins on 12/01. Patient tolerated procedure well. Continued heparin drip after procedure and then transitioned to Eliquis on day of discharge, will continue Eliquis going forward. Continue home aspirin on discharge as well. 2. Concern for UTI ? UA on admit showed 500 leukocyte esterase, negative nitrites, 2+ bacteria. Patient denies any urinary symptoms. Urine culture with no growth. Started on ceftriaxone on admission, discontinued on 11/28. Chronic medical conditions: ? GERD: Continue home PPI. ? IBS: Continue home dicyclomine. ? Allergies: Continue home cetirizine. ? Anxiety: Continue home Zoloft. Total clinical time spent by myself addressing the patient's medical issues, reviewing all the data, and collaborating with patient's care team: 35 minutes. Physical Exam Const alert, oriented x3, no apparent distress and average body habitus Constitutional Narrative: Pleasant middle-age female, laying comfortably in bed, conversing normally, in no acute distress. General Appearance: cooperative and comfortable HEENT normocephalic, head/scalp atraumatic, hearing grossly normal bilaterally, nasal mucous membranes and turbinates normal and moist oral mucous membranes Eyes PERRL, EOMs intact bilaterally and conjunctivae normal Neck full ROM Chest inspection of chest normal Resp normal respiratory effort, normal air movement, no use of accessory muscles and clear to auscultation bilaterally Cardio regular rate, regular rhythm, no murmurs and peripheral pulses 2+ throughout GI normal to inspection, nondistended, normoactive bowel sounds, soft to palpation, non-tender and non-distended Back/Spine normal ROM Extremity full ROM Extremity Narrative: Mild bruising noted behind right knee at access site. Access site behind left knee with bandage in place and with no concerning findings. Left leg with trace edema, significantly improved from admission. Skin no rashes or lesions noted Neuro no focal motor deficits and no sensory deficits noted Speech: speech normal Psych mental status grossly normal Weight / BMI Weight Weight: 69.3 kg Body Mass Index (BMI) 25.7 ABG / Lab / Microbiology Data 12/02/23 06:06 12/02/23 06:06 Laboratory: Laboratory Results - last 24 hr 12/02/23 09:08: Activated Clotting Time 207 H 12/02/23 09:39: Activated Clotting Time 214 H 12/02/23 10:14: Activated Clotting Time 232 H 12/02/23 17:20: APTT 126.0 H* 12/03/23 02:50: APTT 37.2 H 12/03/23 10:01: APTT 57.0 H Microbiology: Microbiology 11/28/23 18:30 Urine, Clean Catch Urine Culture - Final Culture exhibits no growth. Meaningful Use Info Meaningful Use Meaningful Use Diagnoses (Choose all that apply): None applicable Ischemic Stroke Statin Dosing Therapy Reference: STATIN DOSE THERAPY REFERENCE: * Patients > 75 years receive moderate or high dose statin therapy. * Patients 75 years or YOUNGER should receive HIGH intensity statin dose unless contraindicated. You will be required to document reason for non-treatment if statin daily dose does not meet guidelines. HIGH DOSE STATIN THERAPY DAILY Atorvastatin > than or = to 40 mg Rosuvastatin > than or = to 20 mg Amlodipine + Atorvastatin > than or = to 2.5/40 mg Ezetimibe + Simvastatin 10/80 mg Simvastatin 80mg Discharge Plan Admission Admit Date/Time: 11/28/23 15:13 Primary Reason for Your Visit: left leg pain and swelling Attending Provider: Everton Mchugh Primary Care Provider: Jimbo Dash Consulting Providers: Carole Bower; Reji Goldberg Discharge Orders/Prescriptions Prescriptions: New Eliquis DVT-PE Treat 30D Start 5 mg (74 tabs) tablets,dose pack See Rx Instructions .ROUTE .COMPLEX Qty: 74 0RF Rx Instructions: orally per package directions oxycodone 5 mg tablet 5 mg PO Q8H PRN (Reason: pain) 3 Days Qty: 9 0RF Continued Zyrtec 10 mg capsule 10 mg PO DAILY sertraline 100 MG tablet 50 mg PO BID Patient Comments: ANXIETY cyanocobalamin (vitamin B-12) 5,000 MCG tablet,disintegrating 3,000 mcg PO DAILY Cholecalciferol (Vitamin D3) [Vitamin D3] 5,000 UNIT capsule 5,000 unit PO DAILY omeprazole 20 MG tablet,delayed release (DR/EC) 20 mg PO QHS pitavastatin calcium [Livalo] 2 mg Tablet 2 mg PO QPM dicyclomine 20 mg Tablet 20 mg PO BID alendronate 70 mg tablet 70 mg PO QWEEK Referrals / Follow Up: Jimbo Dash MD [Primary Care Provider] - Disposition Disposition (needs filled in before D/C Order can be placed): Home, Self Care Charges/Coding Visit Charges Inpatient E&M: 80319 Disch Hosp >30min
--- NOTE | 2023-12-03 12:06 | PHA.DC_ITS ---
Pharmacy [facility] Service has performed discharge medication reconciliation and counseling for this patient. 1. APIXABAN 10MG PO BID X 7 DAYS, THEN 5MG PO BID THEREAFTER 2. OXYCODONE 5MG PO Q8H PRN PAIN The patient's discharge medication list was reviewed for discrepancies and discrepancies were resolved. The patient was counseled on the following discharge medications and changes in medications for homegoing were reviewed. The Reason for Use, instructions for use, and potential side effects were reviewed for all new medications. The patient's questions regarding all of their medications were answered. The patient was able to verbally demonstrate an understanding of their discharge medications. Medications at Discharge Home Medications sertraline 100 mg tablet 50 mg PO BID anxiety 03/30/14 Cholecalciferol (Vitamin D3) [Vitamin D3] 5,000 unit PO DAILY supplement 03/07/20 cyanocobalamin (vitamin B-12) 5,000 mcg disintegrating tablet 3,000 mcg PO DAILY supplement 03/07/20 omeprazole 20 mg tablet,delayed release 20 mg PO QHS reflux 03/07/20 pitavastatin calcium 2 mg tablet (Livalo) 2 mg PO QPM cholesterol 02/08/22 cetirizine 10 mg capsule (Zyrtec) 10 mg PO DAILY allergies 04/12/22 dicyclomine 20 mg tablet 20 mg PO BID IBS 10/02/22 alendronate 70 mg tablet 70 mg PO QWEEK bones 11/28/23 apixaban 5 mg (74 tabs) tablets in a dose pack (Eliquis DVT-PE Treat 30D Start) See Rx Instructions PO .COMPLEX #74 tabs 12/03/23 oxycodone 5 mg tablet 5 mg PO Q8H PRN pain 3 days #9 tabs 12/03/23
--- NOTE | 2023-12-03 12:27 | CASEMGMT ---
Patient has order for discharge. Patient discharging on [facility] called, copay is $20. RN CM in to discuss discharge with patient and updated regarding copay. Patient denies needs or help at discharge. Patient had no further questions or concerns.
[2023-12-03] MEDS: APIXABAN 5 MG TABLET 10 MG PO (12:36)
[2023-12-03 13:51] VITALS: BP 110/62; PULSE 65; RESP 14; TEMP 36.6; O2SAT 97
== END 2023-12-03 14:23 | disposition home or self-care (01) | DRG 272 ==
LOC: ED 12:51 → PCU 15:28
PROVIDERS: Surgery Trauma Surgery; Admitting Provider Internal Medicine; Emergency Provider Emergency Medicine; PCP Family Medicine; Visit Provider Hospitalist
DX: I82.412 Acute embolism and thrombosis of left femoral vein (principal); I82.422 Acute embolism and thrombosis of left iliac vein; I82.432 Acute embolism and thrombosis of left popliteal vein; I82.442 Acute embolism and thrombosis of left tibial vein; I82.812 Embolism and thrombosis of superficial veins of left lower extremity; K21.9 Gastro-esophageal reflux disease without esophagitis; F41.9 Anxiety disorder, unspecified; K58.9 Irritable bowel syndrome, unspecified; Z79.02 Long term (current) use of antithrombotics/antiplatelets; Z80.0 Family history of malignant neoplasm of digestive organs; Z86.718 Personal history of other venous thrombosis and embolism
CPT/HCPCS: 36005; 36010; 36415; 37187; 37248; 37252; 37253; 75822; 75825; 76937; 80048; 81001; 85025; 85027; 85347; 85610; 85730; 87086; 93005; 93971; 99152; 99153; 99284; C1725; C1753; C1757; C1769; C1887; C1894; J7030; J7050; Q9967; A4216; J2405

== ENCOUNTER → 2023-12-24 | Outpatient (CLI) | payer OTHER, SELFPAY ==
--- NOTE | 2023-12-24 11:10 | VDLE_ITS ---
Reason For Study: Bilateral leg swelling RIGHT LEFT GSV is normal. GSV is normal. CFV is compressible, spontaneous, phasic, CFV is compressible, spontaneous, phasic, competent and demonstrates normal competent, and demonstrates normal augmentation. augmentation. FV is compressible, spontaneous, phasic, FV is compressible, spontaneous, phasic, competent and demonstrates normal competent and demonstrates normal augmentation. augmentation. POP V is compressible, spontaneous, phasic, POP V is compressible, spontaneous, phasic, competent and demonstrates normal competent and demonstrates normal augmentation. augmentation. T/P Trunk is compressible. T/P Trunk is compressible. PTV is compressible. PTV is compressible. RT PerV is compressible. LT PerV is compressible. CIV with stent is normal with venous flow ProfundaV is compressible. noted. GastrocV is compressible. Procedure SoleusV is compressible. This is a venous duplex using B-mode, color flow and spectral Doppler. IVC appears spontaneous and patent. Exam performed in department. CIV with stent is normal with venous flow Compared to 11/28/2023. noted. A preliminary report was called and/or faxed EIV normal venous flow noted. to Chiquita ZAVALA. VL/Venous Duplex US - Italo Extrem Interpretation Summary Deep veins of the bilateral lower extremities are patent and compressible segme ntally. There is no evidence of bilateral lower extremity deep vein thrombosis. The bilateral great saphenous veins appear patent and compressible segmentally. Inferior vena cava and bilateral iliac vein stents patent with normal venous fl ow pattern. Ordering Physician: Martine Power Referring Physician: Jimbo Dash Performed By: Kacey Jenkins RVT
== END | disposition home or self-care (01) ==
LOC: CVS 11:08
PROVIDERS: PCP Family Medicine; Referring Provider Physician Assistant; Visit Provider Physician Assistant
DX: M79.89 Other specified soft tissue disorders (principal); Z86.718 Personal history of other venous thrombosis and embolism; Z95.820 Peripheral vascular angioplasty status with implants and grafts
CPT/HCPCS: 93970

== ENCOUNTER → 2024-01-27 | Outpatient (CLI) | payer OTHER, SELFPAY ==
[2024-01-27 12:55] LABS: Mucous, Urine 0 SEEN /hpf (<or=2+)
[2024-01-27 13:01] LABS: Color, Urine Yellow (Yellow); Glucose, Dipstick Normal (Normal); Ketone-Dipstick Negative (Negative); Leukocyte Esterase-Dipstick 500 /ul (Negative); Nitrite-Dipstick Negative (Negative); Occult Blood-Urine 250 /ul (Negative); Protein-Dipstick 100 mg/dl (Negative); Urine Bilirubin Dipstick Negative (Negative); Urine Clarity Cloudy (Clear); Urine Urobilinogen Normal (Normal)
[2024-01-27 13:20] LABS: Red Blood Cells-Urine 25-50 SEEN /hpf (0-5); White Blood Cells 10-25 SEEN /hpf (0-5)
[2024-01-27 13:21] LABS: Bacteria 1+ /hpf (None Seen)
[2024-01-27 13:22] LABS: Squamous Epithelial Cells - UA 0-5 SEEN /hpf (5-10)
== END | disposition home or self-care (01) ==
LOC: LAB 12:46
PROVIDERS: PCP Family Medicine; Referring Provider Family Medicine; Visit Provider Family Medicine
DX: N39.0 Urinary tract infection, site not specified (principal)
CPT/HCPCS: 81001; 87086

== ENCOUNTER 2024-03-13 18:24 | Emergency (ER) | payer OTHER, SELFPAY ==
[2024-03-13 18:25] VITALS: BP 136/74; PULSE 78; RESP 16; TEMP 36.5; O2SAT 98; BMI 25.0
--- NOTE | 2024-03-13 18:41 | CT_ITS ---
EXAM: CT ABDOMEN AND PELVIS WITH INTRAVENOUS CONTRAST CLINICAL INDICATION: LLQ abd pain TECHNIQUE: Helically acquired images were obtained of the abdomen and pelvis with intravenous contrast. This CT exam was performed using one or more of the following dose reduction techniques: automated exposure control, adjustment of the mA and/or kV according to patient size, and/or use of iterative reconstruction technique. CONTRAST: 100 cc of Isovue-370 IV. RADIATION DOSE: CTDIvol = 15.13 mGy, DLP = 731.85 mGy-cm COMPARISON: 08/16/2022. FINDINGS: LOWER THORAX: Unremarkable. Lung bases are clear. No cardiomegaly. No significant pericardial effusion. ABDOMEN: LIVER: There is diffuse low-attenuation of the liver. No change in the hemangioma in the right lobe of the liver. GALLBLADDER AND BILE DUCTS: Cholecystectomy. No intra- or extrahepatic biliary ductal dilation. PANCREAS: Unremarkable. No focal cystic or solid mass. SPLEEN: Unremarkable. Normal size without focal cystic or solid mass. ADRENALS: Unremarkable. No nodules. KIDNEYS AND URETERS: Unremarkable. Normal renal size and position. No hydronephrosis. STOMACH AND BOWEL: Relative large amount of fecal material throughout the colon. No stomach or bowel distention. No focal inflammatory change. PELVIS: APPENDIX: No evidence of acute appendicitis. BLADDER: Unremarkable. REPRODUCTIVE: Unremarkable as visualized. No mass. ABDOMEN and PELVIS: INTRAPERITONEAL SPACE: Unremarkable. No ascites or other fluid collection. No free air. BONES/JOINTS: Unremarkable. No suspicious lytic or blastic abnormality. SOFT TISSUES: Unremarkable. No discrete abdominal or pelvic wall hernia. VASCULATURE: Bilateral common iliac vein stents new since the previous examination. Abdominal aorta is non-dilated. LYMPH NODES: Unremarkable. No enlarged lymph nodes. CT/Abdomen/Pelvis W IV Cont ONLY IMPRESSION: 1. Constipation. 2. No change in the hemangioma in the right lobe of the liver. 3. Fatty liver. 4. Cholecystectomy. 5. Bilateral common iliac vein stents new since the previous examination. 6. No specific acute intra-abdominal abnormality Electronically Signed: Cliff Knight MD at 20:34 EST ,
--- NOTE | 2024-03-13 18:42 | ED.VIS.GI ---
HPI HPI - GI History of Present Illness Chief Complaint: Abd Pain Informant: patient Abdominal Pain/Flank Pain Onset: Yesterday Context: Gradual Onset Timing: Continuous Quality: Aching and Sharp Location: LLQ Current Severity: Moderate Maximum Severity: Moderate Worsened by: Nothing Relieved by: Nothing Nausea/Vomiting/Emesis GI Symptom: Negative for Nausea or Vomiting Diarrhea/Melena/Hematochezia GI Symptom: Negative for Diarrhea, Melena or Hematochezia Associated Symptoms Associated Symptoms: Negative for Dysuria, Frequency, Hematuria or Urgency Narrative Narrative: 58-year-old female prior history of cholecystectomy, hysterectomy and hernia repair. Prior DVT on Eliquis. Started left lower quadrant abdominal pain yesterday morning is progressively worsened. Denies vomiting or diarrhea. No dysuria. Had a bowel movement yesterday. No prior history of diverticulitis. Prior similar symptoms: No Recent Illness/Hospitalization: No PFSH PFSH Medical History GERD (gastroesophageal reflux disease) Loss of hearing Wears glasses Arthritis Bladder disease DVT (deep venous thrombosis) Restless legs Difficulty swallowing Gastric reflux Non-smoker Leg cramps History of pain when walking History of echocardiogram History of stress test Anxiety Anemia Home Medications ?Medication ?Instructions ?Recorded ?Last Taken ?Type sertraline 100 mg tablet 50 mg PO BID anxiety 03/30/14 03/13/24 History Cholecalciferol (Vitamin D3) 5,000 unit PO DAILY supplement 03/07/20 03/13/24 History [Vitamin D3] cyanocobalamin (vitamin B-12) 3,000 mcg PO DAILY supplement 03/07/20 03/13/24 History 5,000 mcg disintegrating tablet omeprazole 20 mg tablet,delayed 20 mg PO QHS reflux 03/07/20 03/12/24 History release pitavastatin calcium 2 mg tablet 4 mg PO QPM cholesterol 02/08/22 03/12/24 History (Livalo) cetirizine 10 mg capsule (Zyrtec) 10 mg PO DAILY allergies 04/12/22 03/13/24 History dicyclomine 20 mg tablet 20 mg PO BID IBS 10/02/22 03/13/24 History alendronate 70 mg tablet 70 mg PO QWEEK bones 11/28/23 Unknown History oxycodone 5 mg tablet 5 mg PO Q8H PRN pain 3 days #9 tabs 08/06/24 Unknown Rx tizanidine 2 mg tablet 2 mg PO QHS PRN muscle spasticity 12/10/23 Unknown Rx #14 tabs apixaban 5 mg tablet (Eliquis) 5 mg PO BID #60 tabs 02/28/24 03/13/24 Rx Allergy/AdvReac Type Severity Reaction Status Date / Time hydrocodone (From Vicodin) Allergy Nausea/Vom/ Verified 03/13/24 18:34 Diarrhea Family History Mother Colon cancer Cancer ovary Diabetes Father Hypertension Surgical History Hx of bladder repair surgery Hx of cystoscopy Hx of shoulder surgery Hx of colonoscopy S/P rotator cuff repair S/P bunionectomy S/p bilateral carpal tunnel release S/P cholecystectomy S/P hysterectomy Social History Smoking Status: Never smoker alcohol intake: never ROS ROS ED ROS Narrative Left lower quadrant abdominal pain. Constitutional Constitutional ED: Denies chills or fever(s) ENT ENT ED: Denies ear pain Cardiovascular Cardiovascular: Denies chest pain Respiratory/Chest Respiratory/Chest: Denies cough Gastrointestinal Gastrointestinal: Reports abdominal pain; Denies diarrhea, melena, nausea or vomiting Genitourinary Genitourinary ED: Denies dysuria or hematuria Musculoskeletal Musculoskeletal: Denies arthralgias Integumentary Denies abscess Neurologic Neurologic: Denies headache(s) Psychiatric Psychiatric: Denies anxiety Endocrine Endocrinology: Denies polydipsia Hematologic/Lymphatic Hematologic/Lymphatic: Denies lymphadenopathy Allergic/Immunologic Allergic/Immunologic ED: Denies mouth swelling, tongue swelling or urticaria EXAM Physical Exam Narrative Exam Narrative: 50-year-old female sitting upright in bed vital signs are stable afebrile. No acute distress. H EENT exam unremarked. Neck nontender no lymphadenopathy. Lungs clear to auscultation bilateral. Heart regular rhythm no murmur. Abdomen soft nondistended tender left lower quadrant only. No rigidity. No rebound. Right lower and both upper quadrants are nontender. No hernia or mass. No obstruction. No pulsatile mass. Moving all 4 extremities. Nontender. No edema. Back nontender. She is awake and alert. Const Vital Signs: 03/13/24 18:25 03/13/24 20:24 Temperature 97.7 F L Temperature Source Temporal Pulse Rate 78 71 Respiratory Rate 16 16 Blood Pressure 136/74 H 125/70 H Blood Pressure Mean 94 88 Pulse Ox 98 98 Oxygen Delivery Method Room Air Positive well nourished and well developed; Negative for obese, cachectic, contractures or unkempt General Appearance ED: well developed and NAD; Negative for unkempt, cachectic, contractures or pallor Nutritional Appearance: Negative for cachectic or obese HEENT Reports moist mucous membranes normocephalic and atraumatic; Negative for trauma or tenderness Eyes PERRL and EOMs intact bilaterally General Eye ED: Negative for pale conjunctiva or scleral icterus Neck no lymphadenopathy, supple and no JVD General: Negative for tenderness Carotids: Negative for other Lymph Lymphatic: Negative for other Resp normal respiratory effort and clear to auscultation bilaterally Effort and Inspection: Negative for respiratory distress Auscultation: Negative for rales, rhonchi, wheezes or diminished lung sounds Cardio regular rate, regular rhythm, S1 normal heart sound, S2 normal heart sound and no murmurs Rate: Negative for bradycardia or tachycardic Rhythm: Negative for abnormal rhythm GI non-distended and no masses; Negative for non-tender Inspection: abdominal distention Auscultation: normoactive bowel sounds Palpation: soft, tender and guarding; Negative for rigid, hepatomegaly, splenomegaly, hernia, mass, pulsatile mass or rebound tenderness present Back/Spine General Back: Negative for CVA tenderness Cervical Spine: Negative for cervical spine tenderness Thoracic Spine / Upper Back: Negative for thoracic spinal tenderness Lumbar Spine / Lower Back: Negative for lumbar spinal tenderness Extremity full ROM General Extremety ED: Negative for edema or tenderness General Extremity: Negative for edema Neuro CN's II-XII intact bilaterally and moves all extremities Sensorium / Orientation: alert, oriented to person, oriented to place and oriented to time; Negative for orientation impaired, confused, lethargic or stuporous Motor Exam: strength 5/5 throughout Psych mental status grossly normal and thought process normal Appearance: Negative for unkempt Attitude: No agitated Mood & Affect: Negative for depressed, anxious or tearful Skin no wounds General Skin Exam: Negative for jaundice or pallor Lesions: no lesions Rashes: no rashes Trauma: Negative for abrasion Nails: Negative for discolored MDM MDM MDM Narrative Medical decision making narrative: 58-year-old female left lower quadrant abdominal pain since yesterday. CAT scan and labs are pending. She did not want a thing for pain nor was she nauseated. Clinically I think this is diverticulitis. Possibility of a UTI but I do not believe that that. Repeat exam at 8:24 PM patient doing well. Repeat exam at 10:45 PM patient doing well also. We went over her test results. Her labs are unremarkable. CAT scan again does not show diverticulitis. Does not show a perforation nor an obstruction. Radiologist thinks this is all secondary to constipation. Patient be discharged to home with [facility]. History & Record Review Discussion w/independent historian: Patient Additional record(s) reviewed:: Prior inpatient record, Prior outpatient record, Prior ED visit, Prior labs and No prior records Lab Data Attestation: I reviewed the patient's lab results. Lab results narrative: CBC shows white count of 5. H&H 12.9 and 40. Platelets 256. Chemistries show gap of 3. BUN and creatinine 22 and 1. Glucose 108. Liver enzymes unremarkable. Lipase 54. UA negative. No white or red cells. No nitrites. Labs: Laboratory Results - last 24 hr 03/13/24 18:49 WBC 5.6 RBC 4.61 Hgb 12.9 Hct 40.7 MCV 88.3 MCH 28.0 MCHC 31.7 L RDW Std Deviation 44.2 H RDW Coeff of Horacio 13.7 Plt Count 256 MPV 9.9 Immature Gran % (Auto) 0.200 Neut % (Auto) 56.1 Lymph % (Auto) 29.5 Butts % (Auto) 7.2 Eos % (Auto) 6.5 H Baso % (Auto) 0.5 Absolute Neuts (auto) 3.1 Absolute Lymphs (auto) 1.64 Nucleated RBC % 0 Sodium 139 Potassium 3.8 Chloride 108 H Carbon Dioxide 28.0 Anion Gap 3 L BUN 22 H Creatinine 1.00 Estim Creat Clear Calc 57.34 Est GFR (MDRD) Af Amer 73 Est GFR (MDRD) Non-Af 61 BUN/Creatinine Ratio 22.1 H Glucose 108 H Calcium 9.2 Total Bilirubin 0.30 AST 19 ALT 31 Alkaline Phosphatase 131 H Total Protein 7.2 Albumin 3.6 Globulin 3.6 Albumin/Globulin Ratio 1.0 Lipase 54 Urine Color Straw Urine Clarity Clear Urine pH 6.0 Ur Specific [place] 1.015 Urine Protein 15 H Urine Glucose (UA) Normal Urine Ketones Negative Urine Occult Blood 10 H Urine Nitrite Negative Urine Bilirubin Negative Urine Urobilinogen Normal Ur Leukocyte Esterase 100 H Urine RBC 0 SEEN Urine WBC 0-5 SEEN Ur Squamous Epith Cells 0-5 SEEN Ur Transition Epith Cell 0-5 SEEN Urine Bacteria 0 SEEN Urine Mucus 0 SEEN Radiography Diagnostic Testing: Clinical Impression(s) from Imaging Studies Abdomen/Pelvis CT 03/13/24 18:41 IMPRESSION: 1. Constipation. 2. No change in the hemangioma in the right lobe of the liver. 3. Fatty liver. 4. Cholecystectomy. 5. Bilateral common iliac vein stents new since the previous examination. 6. No specific acute intra-abdominal abnormality Electronically Signed: Cliff Knight MD at 20:34 EST Reading Location ID and State: [address] [place] [address] Tel , Service support , Discharge Plan Triage Chief Complaint: Abd Pain ED Provider: Mp Torrez Dx/Rx/DC Orders Clinical Impression: Abdominal pain, History of blood clots, Chronic anticoagulation, Constipation Instructions: Abdominal Pain, ED Constipation (Adult) Prescriptions: No Action Zyrtec 10 mg capsule 10 mg PO DAILY tizanidine 2 mg tablet 2 mg PO QHS PRN (Reason: muscle spasticity) Qty: 14 1RF Eliquis 5 mg tablet 5 mg PO BID Qty: 60 4RF sertraline 100 MG tablet 50 mg PO BID Patient Comments: ANXIETY cyanocobalamin (vitamin B-12) 5,000 MCG tablet,disintegrating 3,000 mcg PO DAILY Cholecalciferol (Vitamin D3) [Vitamin D3] 5,000 UNIT capsule 5,000 unit PO DAILY omeprazole 20 MG tablet,delayed release (DR/EC) 20 mg PO QHS pitavastatin calcium [Livalo] 2 mg Tablet 4 mg PO QPM dicyclomine 20 mg Tablet 20 mg PO BID alendronate 70 mg tablet 70 mg PO QWEEK oxycodone 5 mg tablet 5 mg PO Q8H PRN (Reason: pain) 3 Days Qty: 9 0RF Primary Care Provider: Jimbo Dash Referrals: Jimbo Dash MD [Primary Care Provider] - 3-5 Days if not improving Activity Restrictions/Additional Instructions: Your CAT scan and labs are unremarkable other than for constipation. Starting tomorrow morning drink an 8 ounce glass of the GoLytely and to have a large bowel movement. You should start feeling better. The pain should resolve. If you not feeling better follow-up with your doctor. Or return if feeling worse. Print Language: Greek Disposition Disposition: Home, Self Care
[2024-03-13 18:54] LABS: Bacteria 0 SEEN /hpf (None Seen); Mucous, Urine 0 SEEN /hpf (<or=2+); Red Blood Cells-Urine 0 SEEN /hpf (0-5)
[2024-03-13 18:57] LABS: Color, Urine Straw (Yellow); Glucose, Dipstick Normal (Normal); Ketone-Dipstick Negative (Negative); Leukocyte Esterase-Dipstick 100 /ul (Negative); Nitrite-Dipstick Negative (Negative); Occult Blood-Urine 10 /ul (Negative); Protein-Dipstick 15 mg/dl (Negative); Specific Gravity, Urine 1.015 (1.002-1.030); Urine Bilirubin Dipstick Negative (Negative); Urine Clarity Clear (Clear); Urine Urobilinogen Normal (Normal)
[2024-03-13 18:59] LABS: Absolute Lymphocyte Count 1.64 X10^3/uL (0.83-4.51); Absolute Neutrophil Count 3.1 X10^3/uL (2.0-7.7); Basophil# 0.03 X10^3/uL; Basophil% 0.5 % (0-1); Eosinophil# 0.36 X10^3/uL; Eosinophils% 6.5 % (0-5); Hematocrit 40.7 % (37-47); Hemoglobin 12.9 g/dL (12.0-15.0); Lymphocyte # 1.64 X10^3/ul (0.83-4.51); Lymphocyte % 29.5 % (19-41); Mean Corp Hgb Conc 31.7 g/dL (32-36); Mean Corpuscular Volume 88.3 fL (81-99); Mean Platelet Vol. 9.9 fl (6.2-12.0); Monocyte% 7.2 % (0-10); NRBC Flagged by Analyzer 0 % (0-5); Neutrophil # 3.11 X10^3/uL (2.7-7.7); Neutrophil % 56.1 % (47-70); Platelet Count 256 K/mm3 (150-450); RBC Distribution Width CV 13.7 % (11.6-14.6); RBC Distribution Width SD 44.2 fl (35.1-43.9); Red Blood Count 4.61 M/mm3 (4.2-5.4); White Blood Count 5.6 K/mm3 (4.4-11.0)
[2024-03-13 19:24] LABS: AST(SGOT) 19 U/L (15-37); Alanine Aminotransfer ALT/SGPT 31 U/L (13-56); Albumin, Serum 3.6 g/dL (3.2-5.0); Alkaline Phosphatase 131 U/L (45-117); Anion Gap 3 (5-15); BUN 22 mg/dL (7-18); BUN/Creat Ratio 22.1 RATIO (10-20); Calcium,Total 9.2 mg/dL (8.5-10.1); Chloride 108 mmol/L (98-107); EST Glomerular Filtration Rate 61 mL/min (>60); Est Glom Filt Rate - Afr Amer 73 mL/min (>60); Estimated Creatinine Clearance 57.34 ml/min; Globulin 3.6 g/dL (2.2-4.2); Glucose 108 mg/dL (74-106); Lipase 54 U/L (13-75); Potassium 3.8 mmol/L (3.5-5.1); Protein, Total 7.2 g/dL (6.4-8.2); Sodium Level 139 mmol/L (136-145)
[2024-03-13 19:28] LABS: Transitional Epithelial - Ur 0-5 SEEN /hpf (0-5); White Blood Cells 0-5 SEEN /hpf (0-5)
[2024-03-13 19:29] LABS: Squamous Epithelial Cells - UA 0-5 SEEN /hpf (5-10)
[2024-03-13 20:24] VITALS: BP 125/70; PULSE 71; RESP 16; O2SAT 98
[2024-03-13] MEDS: Electrolyte Solution/Peg's 4000 ML 1000 ML PO (23:14)
== END 2024-03-13 23:21 | disposition home or self-care (01) ==
PROVIDERS: Emergency Provider Emergency Medicine; PCP Family Medicine; Visit Provider Emergency Medicine
DX: R10.32 Left lower quadrant pain (principal); K59.00 Constipation, unspecified; Z79.01 Long term (current) use of anticoagulants; Z79.899 Other long term (current) drug therapy; Z86.718 Personal history of other venous thrombosis and embolism; Z90.710 Acquired absence of both cervix and uterus; Z90.49 Acquired absence of other specified parts of digestive tract
CPT/HCPCS: 74177; 80053; 81001; 83690; 85025; 99283; Q9967; A4216

== ENCOUNTER → 2024-05-21 | Outpatient (CLI) | payer OTHER, SELFPAY | END | disposition home or self-care (01) | PROVIDERS: PCP Family Medicine; Referring Provider Family Medicine; Visit Provider Family Medicine | DX: R30.0 Dysuria (principal) | CPT/HCPCS: 87086; 87088 ==

== ENCOUNTER → 2024-05-21 | Outpatient (CLI) | payer OTHER, SELFPAY ==
--- NOTE | 2024-05-21 16:54 | RAD_ITS ---
STUDY: X-RAY - SACRUM/COCCYX REASON FOR EXAM: Female, 58 years old. FALL TECHNIQUE: 3 views of the sacrum and coccyx were obtained. COMPARISON: None. FINDINGS: Normal bilateral sacroiliac joints. Normal visualized sacral ala and fused sacral bodies. Normal sacrococcygeal junction with a normal angulation. Normal coccygeal segments. There are bilateral iliac artery stents. The presacral soft tissue structures are unremarkable. There is no demonstrated fracture or destructive osseous process. RAD/Sacrum-Coccyx min 2 Views IMPRESSION: Unremarkable x-rays of the sacrum and coccyx. No demonstrated fracture. Electronically Signed: Jeff Reyes MD at 9:06 EST ,
== END | disposition home or self-care (01) ==
LOC: MTRAD 16:53
PROVIDERS: PCP Family Medicine; Referring Provider Family Medicine; Visit Provider Family Medicine
DX: T14.90XA Injury, unspecified, initial encounter (principal); W19.XXXA Unspecified fall, initial encounter
CPT/HCPCS: 72220

== ENCOUNTER 2024-06-11 14:19 | Emergency (ER) | payer OTHER, SELFPAY ==
[2024-06-11 14:19] VITALS: BP 131/79; PULSE 78; RESP 17; TEMP 36.2; O2SAT 97; BMI 24.2
--- NOTE | 2024-06-11 14:39 | VDLE_ITS ---
Reason For Study Reason For Study: RLE Pain RIGHT LEFT GSV is normal. CFV is compressible, spontaneous, phasic, competent, CFV is compressible, spontaneous, phasic, competent and demonstrates normal augmentation. and demonstrates normal augmentation. FV is compressible, spontaneous, phasic, competent and demonstrates normal augmentation. POP V is compressible, spontaneous and competent and demonstrates normal augmentation. The vessel measures approximately 2.14cm x 2.13cm and possible Rouleaux flow visualized. T/P Trunk is compressible. PTV is compressible. RT PerV is compressible. Procedure This is a venous duplex using B-mode, color flow and spectral Doppler. Exam performed portable in ED. The exam was diagnostic. A preliminary report was called and/or faxed to Vielka Peterson ED, RN. VL/Venous Duplex US, Unilateral Interpretation Summary Deep veins of the right lower extremity are patent and compressible segmentally . There is no evidence of right lower extremity deep vein thrombosis. The right great saphenous vein appears patent a nd compressible segmentally. The popliteal vein measures approximately 2.14cm x 2.13cm and has Rouleaux (slo wed) flow visualized. Ordering Physician: Rupert Mensah Referring Physician: Jimbo Dash Performed By: River Leblanc RVT
--- NOTE | 2024-06-11 14:39 | EKG12_ITS ---
Test Reason : CP Blood Pressure : */* mmHG Vent. Rate : 68 BPM Atrial Rate : 68 BPM P-R Int : 148 ms QRS Dur : 76 ms QT Int : 396 ms P-R-T Axes : 48 10 57 degrees QTcB Int : 421 ms Normal sinus rhythm Normal ECG Confirmed by JENNI MCELROY, MIRNA ([id number]), editor managing director RAOUL MCDOWELL ([id number]) on 06/15/2024 8:07:34 AM Referred By: Rupert Mensah Confirmed By: MIRNA ARTEAGA MD
--- NOTE | 2024-06-11 14:40 | ED.VIS.CHEST ---
HPI History of Present Illness Chief Complaint: Chest Pain Informant: patient Narrative Narrative: Sent in by PCP for a history of waxing waning chest pain left arm pain. Last 2 days right calf pain. History of recurrent DVTs on Eliquis. She has been compliant with her Eliquis. Her last DVT left leg November of last year with thrombectomy. At that time she was only on Plavix as they trialed her off anticoagulants. She is followed by Dr. Goldberg. She has had peripheral artery disease with stenting in the past. No coronary disease history. Father [place] at 65, history of hyperlipidemia. Denies hypertension or diabetes. Denies tobacco. Denies recent travel or surgeries no history of PE or DVT. She reports her previous clots were unprovoked. Prior Similar Symptoms: No and With Prior [place] CVD Risk Factors: Positive for Hypercholesterolemia; Negative for Hypertension, Diabetes, Family History 1' </=55 or Smoking PE Risk Factors: Negative for Recent Travel/Surgery, Recent Immobilization or Prior DVT or PE [facility] Medical History GERD (gastroesophageal reflux disease) Loss of hearing Wears glasses Arthritis Bladder disease DVT (deep venous thrombosis) Restless legs Difficulty swallowing Gastric reflux Non-smoker Leg cramps History of pain when walking History of echocardiogram History of stress test Anxiety Anemia Home Medications ?Medication ?Instructions ?Recorded ?Last Taken ?Type sertraline 100 mg tablet 50 mg PO BID anxiety 03/30/14 03/13/24 History Cholecalciferol (Vitamin D3) 5,000 unit PO DAILY supplement 03/07/20 03/13/24 History [Vitamin D3] cyanocobalamin (vitamin B-12) 3,000 mcg PO DAILY supplement 03/07/20 03/13/24 History 5,000 mcg disintegrating tablet omeprazole 20 mg tablet,delayed 20 mg PO QHS reflux 03/07/20 03/12/24 History release pitavastatin calcium 2 mg tablet 4 mg PO QPM cholesterol 02/08/22 03/12/24 History (Livalo) cetirizine 10 mg capsule (Zyrtec) 10 mg PO DAILY allergies 04/12/22 03/13/24 History dicyclomine 20 mg tablet 20 mg PO BID IBS 10/02/22 03/13/24 History alendronate 70 mg tablet 70 mg PO QWEEK bones 11/28/23 Unknown History tizanidine 2 mg tablet 2 mg PO QHS PRN muscle spasticity 12/10/23 Unknown Rx #14 tabs apixaban 5 mg tablet (Eliquis) 5 mg PO BID #60 tabs 02/28/24 03/13/24 Rx Allergy/AdvReac Type Severity Reaction Status Date / Time hydrocodone (From Vicodin) Allergy Nausea/Vom/ Verified 06/11/24 14:19 Diarrhea Family History Mother Colon cancer Cancer ovary Diabetes Father Hypertension Surgical History Hx of bladder repair surgery Hx of cystoscopy Hx of shoulder surgery Hx of colonoscopy S/P rotator cuff repair S/P bunionectomy S/p bilateral carpal tunnel release S/P cholecystectomy S/P hysterectomy Social History household members: spouse housing: house current occupational status: employed Smoking Status: Never smoker alcohol intake: never ROS ROS ED Constitutional Constitutional ED: Denies chills, fever(s) or sweats ENT ENT ED: Denies sore throat Cardiovascular Cardiovascular: Reports chest pain; Denies leg edema, palpitations or racing heartbeat Respiratory/Chest Respiratory/Chest: Denies cough, dyspnea or dyspnea on exertion Gastrointestinal Gastrointestinal: Denies abdominal pain, diarrhea, nausea or vomiting Genitourinary Genitourinary ED: Denies dysuria, hematuria or urinary frequency Musculoskeletal Musculoskeletal: Reports extremity pain; Denies back pain or neck pain Integumentary Denies rash or wounds Neurologic Neurologic: Denies headache(s), paresthesias or weakness EXAM Physical Exam Const Vital Signs: 06/11/24 14:19 06/11/24 14:28 06/11/24 15:19 Temperature 97.2 F L Temperature Source Temporal Pulse Rate 78 73 Respiratory Rate 17 16 Respiratory Effort Normal Non-Labored Blood Pressure 131/79 H 118/82 H Blood Pressure Mean 96 94 Pulse Ox 97 95 Oxygen Delivery Method Room Air Positive well nourished and well developed General Appearance ED: well developed and NAD HEENT Reports moist mucous membranes normocephalic and atraumatic Eyes General Eye ED: Yes normal appearance of both eyes Neck full ROM Chest Wall Chest: Negative for tenderness Resp normal respiratory effort and normal air movement Effort and Inspection: symmetric chest movement; Negative for respiratory distress Cardio regular rate, regular rhythm and no murmurs Peripheral Pulses: pulses 2+ throughout GI normal to inspection, nondistended, normoactive bowel sounds and non-tender Palpation: Negative for guarding or rebound tenderness present Extremity normal to inspection Extremity Narrative: Mild right calf tenderness no swelling. Strong distal pulses bilaterally. Left upper extremity: Soft compartments pulses are intact distally. General Extremety ED: Yes tenderness; Negative for edema General Extremity: Negative for edema Neuro oriented x3 and no sensory deficits noted Sensorium / Orientation: awake and alert Skin no rashes or lesions noted and no wounds Heart Score History: Slightly/Non-Suspicious ECG: Normal Age: >45 - <65 years Risk Factors: 1 or 2 Risk Factors Troponin: </= Normal Limit Score: 2 MDM MDM MDM Narrative Medical decision making narrative: Interventions / MDM: Differential diagnosis: Atypical chest pain, right calf pain Diagnosis considered but do not suspect: ACS however EKG troponin negative. PE however D-dimer negative. DVT however ultrasound negative. My EKG interpretation: Sinus rate 68, no ST or T wave changes. Imaging independently reviewed and interpreted by myself: 2 view chest x-ray: No acute process. Right lower extremity ultrasound negative for DVT. Also read by radiology. External documents reviewed: N/A Test considered but not ordered:N/A ED course: EKG sinus rhythm with no acute findings. Cardiac workup initiated D-dimer is concerns for PE by her PCP. She is on Eliquis. Also obtain a right lower extremity DVT ultrasound. 1620: Cardiac workup negative troponin - after 4 days of waxing symptoms neck troponin less likely cardiac nature. Do not feel repeat troponin is necessary. D-dimer negative. Chest x-ray negative. Ultrasound right leg negative. She is reassured on findings. Outpatient follow-up with her doctor with return precautions. All questions were answered. Re-evaluation: stable Disposition discussed with patient/family/significant other: Patient Case discussed with consulting clinician: N/A This note was generated with [employer] dictation software. It may contain incorrect words, spelling, and punctuation that were not noted in checking the note before signing. Lab Data Attestation: I reviewed the patient's lab results. Labs: Laboratory Results - last 24 hr 06/11/24 14:41 WBC 5.8 RBC 4.59 Hgb 13.2 Hct 40.8 MCV 88.9 MCH 28.8 MCHC 32.4 RDW Std Deviation 42.4 RDW Coeff of Horacio 13.1 Plt Count 270 MPV 10.0 Immature Gran % (Auto) 0.200 Neut % (Auto) 65.7 Lymph % (Auto) 22.2 Carbon % (Auto) 6.4 Eos % (Auto) 4.6 Baso % (Auto) 0.9 Absolute Neuts (auto) 3.8 Absolute Lymphs (auto) 1.29 Nucleated RBC % 0 PT 13.1 INR 1.0 APTT 27.3 D-Dimer Quant (PE/DVT) 0.37 Sodium 140 Potassium 4.0 Chloride 111 H Carbon Dioxide 23.0 Anion Gap 6 BUN 17 Creatinine 0.90 Estim Creat Clear Calc 60.56 Est GFR (MDRD) Af Amer 82 Est GFR (MDRD) Non-Af 68 BUN/Creatinine Ratio 18.9 Glucose 140 H Calcium 8.9 Troponin I High Sens 4 Radiography Diagnostic Testing: Clinical Impression(s) from Imaging Studies Venous Doppler Study 06/11/24 14:39 Interpretation Summary Deep veins of the right lower extremity are patent and compressible segmentally. There is no evidence of right lower extremity deep vein thrombosis. The right great saphenous vein appears patent and compressible segmentally. The popliteal vein measures approximately 2.14cm x 2.13cm and has Rouleaux (slowed) flow visualized. Ordering Physician: Rupert Mensah Referring Physician: Jimbo Dash Performed By: River Leblanc RVT Chest X-Ray 06/11/24 15:40 IMPRESSION: No evidence of acute cardiopulmonary disease. Reading Location: [address] Discharge Plan Triage Chief Complaint: Chest Pain ED Provider: Rupert Mensah Dx/Rx/DC Orders Clinical Impression: Chest pain, Right calf pain, Chronic anticoagulation Instructions: ED Chest Pain, Uncertain Cause Prescriptions: No Action Zyrtec 10 mg capsule 10 mg PO DAILY tizanidine 2 mg tablet 2 mg PO QHS PRN (Reason: muscle spasticity) Qty: 14 1RF Eliquis 5 mg tablet 5 mg PO BID Qty: 60 4RF sertraline 100 MG tablet 50 mg PO BID Patient Comments: ANXIETY cyanocobalamin (vitamin B-12) 5,000 MCG tablet,disintegrating 3,000 mcg PO DAILY Cholecalciferol (Vitamin D3) [Vitamin D3] 5,000 UNIT capsule 5,000 unit PO DAILY omeprazole 20 MG tablet,delayed release (DR/EC) 20 mg PO QHS pitavastatin calcium [Livalo] 2 mg Tablet 4 mg PO QPM dicyclomine 20 mg Tablet 20 mg PO BID alendronate 70 mg tablet 70 mg PO QWEEK Primary Care Provider: Jimbo Dash Referrals: Jimbo Dash MD [Primary Care Provider] - 3-5 Days Activity Restrictions/Additional Instructions: Ultrasound right leg negative. Cardiac workup negative. D-dimer negative. Chest x-ray negative. Continue your Eliquis. Follow-up with your doctor. Symptoms worsens, return to ED for reevaluation. Print Language: Barbadian Disposition Disposition: Home, Self Care
[2024-06-11 14:52] LABS: Absolute Lymphocyte Count 1.29 X10^3/uL (0.83-4.51); Absolute Neutrophil Count 3.8 X10^3/uL (2.0-7.7); Basophil# 0.05 X10^3/uL; Basophil% 0.9 % (0-1); Eosinophil# 0.27 X10^3/uL; Eosinophils% 4.6 % (0-5); Hematocrit 40.8 % (37-47); Hemoglobin 13.2 g/dL (12.0-15.0); Lymphocyte # 1.29 X10^3/ul (0.83-4.51); Lymphocyte % 22.2 % (19-41); Mean Corp Hgb Conc 32.4 g/dL (32-36); Mean Corpuscular Hgb 28.8 pg (27.0-32.0); Mean Corpuscular Volume 88.9 fL (81-99); Monocyte# 0.37 X10^3/uL; Monocyte% 6.4 % (0-10); NRBC Flagged by Analyzer 0 % (0-5); Neutrophil # 3.82 X10^3/uL (2.7-7.7); Neutrophil % 65.7 % (47-70); Platelet Count 270 K/mm3 (150-450); RBC Distribution Width CV 13.1 % (11.6-14.6); RBC Distribution Width SD 42.4 fl (35.1-43.9); Red Blood Count 4.59 M/mm3 (4.2-5.4); White Blood Count 5.8 K/mm3 (4.4-11.0)
[2024-06-11 15:12] LABS: Anion Gap 6 (5-15); BUN 17 mg/dL (7-18); BUN/Creat Ratio 18.9 RATIO (10-20); Calcium,Total 8.9 mg/dL (8.5-10.1); Chloride 111 mmol/L (98-107); EST Glomerular Filtration Rate 68 mL/min (>60); Est Glom Filt Rate - Afr Amer 82 mL/min (>60); Estimated Creatinine Clearance 60.56 ml/min; Glucose 140 mg/dL (74-106); Sodium Level 140 mmol/L (136-145); Troponin-I HS 4 pg/mL (3.0-54.0)
[2024-06-11 15:14] LABS: Partial Thromboplast Time 27.3 Seconds (24.1-36.2)
[2024-06-11 15:17] LABS: Prothrombin Time (Protime)PT. 13.1 SECONDS (11.7-14.9)
[2024-06-11 15:19] VITALS: BP 118/82; PULSE 73; RESP 16; O2SAT 95
[2024-06-11 15:32] LABS: D-Dimer Quantitative (DVT/PE) 0.37 FEU/ug/m (0.27-0.49)
--- NOTE | 2024-06-11 15:40 | RAD_ITS ---
PROCEDURE: CHEST PA AND LATERAL REASON FOR EXAM: Pain. TECHNIQUE: Frontal and lateral views of the chest. COMPARISON: None. FINDINGS: The heart size is normal. The mediastinal contour is unremarkable. No evidence of pulmonary edema. Mild biapical pleural-parenchymal scarring is noted. The lungs are clear. Mild thoracic spine degenerative changes are noted. No acute osseous process is seen. RAD/Chest PA and Lateral IMPRESSION: No evidence of acute cardiopulmonary disease. Reading Location: [id number]
[2024-06-11 16:00] VITALS: BP 108/72; PULSE 68; RESP 22; O2SAT 95
[2024-06-11 16:51] VITALS: BP 108/72; PULSE 68; RESP 22; TEMP 36.8; O2SAT 95
== END 2024-06-11 16:52 | disposition home or self-care (01) ==
PROVIDERS: Emergency Provider Emergency Medicine; PCP Family Medicine; Referring Provider Emergency Medicine; Visit Provider Emergency Medicine
DX: R07.9 Chest pain, unspecified (principal); M79.602 Pain in left arm; M79.661 Pain in right lower leg; I73.9 Peripheral vascular disease, unspecified; E78.00 Pure hypercholesterolemia, unspecified; F41.9 Anxiety disorder, unspecified; Z79.01 Long term (current) use of anticoagulants; Z79.899 Other long term (current) drug therapy; Z95.820 Peripheral vascular angioplasty status with implants and grafts
CPT/HCPCS: 71046; 80048; 84484; 85025; 85379; 85610; 85730; 93005; 93971; 99284; A4216

== ENCOUNTER → 2024-07-08 | Outpatient (CLI) | payer OTHER, SELFPAY ==
[2024-07-08 10:55] LABS: Bacteria 0 SEEN /hpf (None Seen); Mucous, Urine 0 SEEN /hpf (<or=2+)
[2024-07-08 11:37] LABS: Color, Urine Yellow (Yellow); Glucose, Dipstick Normal (Normal); Ketone-Dipstick Negative (Negative); Leukocyte Esterase-Dipstick 500 /ul (Negative); Nitrite-Dipstick Negative (Negative); Occult Blood-Urine 150 /ul (Negative); Protein-Dipstick 30 mg/dl (Negative); Specific Gravity, Urine 1.025 (1.002-1.030); Urine Bilirubin Dipstick Negative (Negative); Urine Clarity Sl. Cloudy (Clear); Urine Urobilinogen Normal (Normal)
[2024-07-08 11:44] LABS: Red Blood Cells-Urine 0-5 SEEN /hpf (0-5); Squamous Epithelial Cells - UA 0-5 SEEN /hpf (5-10); Transitional Epithelial - Ur 0-5 SEEN /hpf (0-5); White Blood Cells 0-5 SEEN /hpf (0-5)
== END | disposition home or self-care (01) ==
LOC: LAB 10:44
PROVIDERS: PCP Family Medicine; Referring Provider Family Medicine; Visit Provider Family Medicine
DX: N39.0 Urinary tract infection, site not specified (principal)
CPT/HCPCS: 81001; 87077; 87086; 87088; 87186

== ENCOUNTER → 2024-07-14 | Outpatient (CLI) | payer OTHER, SELFPAY ==
--- NOTE | 2024-07-14 09:09 | AAVD_ITS ---
Reason For Study Reason For Study: HX Bilateral Iliac Vein Stents Inferior Vena Cava Proximal inferior vena cava measures 0.97 x 1.09 cm. in the cross-sectional axis. Proximal inferior vena cava measures 1.17 cm. in the longitudinal axis. Mid inferior vena cava measures 1.43 x 1.78 cm. in the cross-sectional axis. Mid inferior vena cava measures 1.03 cm. in the longitudinal axis. Distal inferior vena cava measures 1.33 x 1.66 cm. in the cross-sectional axis. Distal inferior vena cava measures 0.93 cm. in the longitudinal axis. The inferior vena cava has spontaneous, phasic flow throughout. Left Common Iliac Vein Left common iliac vein measures 1.26 x 1.25 cm. in the cross-sectional axis. Left common iliac vein measures 1.36 cm. in the longitudinal axis. The left common iliac vein has spontaneous, phasic flow throughout. Stent Noted. Right Common Iliac Vein Right common iliac vein measures 1.09 x 1.15 cm. in the cross-sectional axis. Right common iliac vein measures 1.15 cm. in the longitudinal axis. The right common iliac vein has spontaneous, phasic flow throughout. Stent Noted. VL/Abd Aortic/IVC Duplex scan Interpretation Summary Inferior vena cava and bilateral iliac vein stents patent with normal venous fl ow pattern. Ordering Physician: Reji Goldberg Referring Physician: Jimbo Dash Performed By: River Leblanc, RVT
== END | disposition home or self-care (01) ==
LOC: CVS 09:09
PROVIDERS: PCP Family Medicine; Referring Provider Physician Assistant; Visit Provider Physician Assistant
DX: I87.1 Compression of vein (principal)
CPT/HCPCS: 93978

== ENCOUNTER → 2024-08-17 | Outpatient (CLI) | payer OTHER, SELFPAY ==
[2024-08-17 13:13] LABS: ALB/GLOB Ratio 1.5 RATIO (0.9-2.4); AST(SGOT) 23 U/L (<=31); Alanine Aminotransfer ALT/SGPT 22 U/L (<=34); Albumin, Serum 4.2 g/dL (3.5-5.0); Alkaline Phosphatase 129 U/L (35-104); Anion Gap 11 (5-15); BUN 21 mg/dL (4-19); BUN/Creat Ratio 23.4 RATIO (10-20); Calcium,Total 9.6 mg/dL (7.6-11.0); Carbon Dioxide 22.9 mmol/L (21.0-32.0); Chloride 105 mmol/L (98-108); Cholesterol 200 mg/dL (<=200); Creatinine, Serum 0.92 mg/dL (0.70-1.20); EST Glomerular Filtration Rate 72 (>60); Globulin 2.7 g/dL (2.2-4.2); Glucose 81 mg/dL (70-99); High Density Lipoprotein 66 mg/dL; Low Density Lipoprotein Calc. 113 mg/dL; Potassium 4.1 mmol/L (3.3-5.1); Protein, Total 6.9 g/dL (5.9-8.4); Sodium Level 138 mmol/L (133-145); Total Bilirubin 0.52 mg/dL (0.00-1.30); Triglycerides 106 mg/dL; Very Low Density Lipoprotein 21 mg/dL (5-40); cholesterol:hdl ratio screen 3.04
== END | disposition home or self-care (01) ==
LOC: MFPLAB 10:13
PROVIDERS: PCP Family Medicine; Referring Provider Family Medicine; Visit Provider Family Medicine
DX: E78.5 Hyperlipidemia, unspecified (principal)
CPT/HCPCS: 36415; 80053; 80061

== ENCOUNTER → 2024-10-13 | Outpatient (CLI) | payer OTHER, SELFPAY ==
--- NOTE | 2024-10-13 19:05 | CT_ITS ---
PROCEDURE: PELVIS WITHOUT IV CONTRAST 10/13/2024 REASON FOR EXAM: BLADDER STONE TECHNIQUE: PELVIS WITHOUT IV CONTRAST One or more dose reduction techniques were used (e.g., Automated exposure control, adjustment of the mA and/or kV according to patient size, use of iterative reconstruction technique). RADIATION DOSE SUMMARY: CTDlvol: 7.36 mGy DLP: 270 mGycm COMPARISON: 03/13/2024. FINDINGS: Prior hysterectomy. Adequately distended bladder. Well-defined 4.5 mm calcification adherent to the right anterolateral aspect of the bladder wall. Findings may represent an adherent stone versus mural calcification within a bladder wall lesion. Mild thickening of the corresponding aspect of the bladder wall. No lymphadenopathy is seen. Calcified atheromatous plaques of the iliac arteries. Unremarkable iliac venous stents. Moderate amount of fecal residue in the large bowels. Mild osteopenia. Grade 1 anterolisthesis of L4 on L5. Diffuse spondylosis. CT/Pelvis without IV Contrast IMPRESSION: Prior hysterectomy. Adequately distended bladder. Well-defined 4.5 mm calcification adherent to the right anterolateral aspect of the bladder wall. Findings may represent an adherent stone versus mural calcification within a bladder wall lesion. Mild t hickening of the corresponding aspect of the bladder wall. No lymphadenopathy is seen. Calcified atheromatous plaques of the iliac arteries. Unremarkable iliac venous stents. Moderate amount of fecal residue in the large bowels. Mild osteopenia. Reading [facility] [id number]
== END | disposition home or self-care (01) ==
LOC: CT 19:02
PROVIDERS: PCP Family Medicine
DX: N21.0 Calculus in bladder (principal)
CPT/HCPCS: 72192

== ENCOUNTER 2024-12-11 06:48 | Emergency (ER) | payer OTHER, SELFPAY ==
[2024-12-11 06:49] VITALS: BP 147/101; PULSE 103; RESP 18; TEMP 36.6; O2SAT 98; BMI 24.0
--- NOTE | 2024-12-11 06:54 | CT_ITS ---
PROCEDURE: CTA ABD W/RUNOFF W/WO CONTRAST 12/11/2024 REASON FOR EXAM: ? LEFT ARTERIAL OCCLUSION TECHNIQUE: CTA ABD W/RUNOFF W/WO CONTRAST Multiplanar Sagittal and Coronal images were obtained. 3D and or MIPS post processing was performed One or more dose reduction techniques were used (e.g., Automated exposure control, adjustment of the mA and/or kV according to patient size, use of iterative reconstruction technique). CONTRAST: Isovue 370 VOLUME: 100 mL RADIATION DOSE SUMMARY: CTDlvol: 8.8 mGy DLP: 1034.97 mGycm COMPARISON: None FINDINGS: Aorta: Abdominal aorta is normal in size. No significant atherosclerotic plaque. No evidence of aneurysm or dissection. Iliac Arteries: Iliac arteries are normal in size with no significant plaque or stenosis. Celiac: Normal. SMA: Normal. LIYA : Normal. Right Renal: Mild mixed calcified and soft plaque identified. Left Renal: Normal. Lower Extremity Runoff (Bilateral): Common Femoral Arteries: Unremarkable Superficial Femoral Arteries: Unremarkable Profunda Femoris Arteries: Unremarkable Popliteal Arteries: The right popliteal artery is patent. Poor visualization of the left popliteal artery. Tibial and Peroneal Arteries: Right tibial and peroneal arteries are patent. Nonvisualization of the left tibioperoneal trunk as well as the anterior and posterior tibial arteries. Distal Runoff: Three-vessel runoff in the right leg. No visualization of distal runoff in the left leg. Extravascular Findings: Diffuse fatty infiltration of the liver. Venous stents seen in both right and left common iliac veins. CT/CTA Abd w/Runoff W/WO Contrast IMPRESSION: Poor runoff in the left lower extremity distal to the popliteal artery. Reading Location: [place] [id number]
[2024-12-11] MEDS: 0.9% Normal Saline (1000mL) 1,000 ML 999 ML IV (07:15)
--- OUTSIDE RECORDS SUMMARY | 2024-12-11 07:24 | XMS RPT_ITS | CCD ---
Author Organization [facility]ini[facility] Care Team Providers Care Field Applications Specialist Name Role Phone Saeid Griffith Unavailable Camila Stewart LPN Unavailable Unavailab jennifer Garner TAX REPRESENTATIVE-C, Neto Blum Unavailable Unavailable Now Nurse Unavailable Unavailable Camila Stewart LPN Unavailable Unavailab Jimbo Costa MD Primary Care Provider [phone] Jimbo Dash MD Unavailable Dr. Jimbo Dash Primary Care Provider Dr. Jimbo Dash Referring Provider Dr. oTny Jasmine Attending Provider [phone] KINGS Griffith Attending Provider Dr. Tony Jasmine Other Provider Jimbo Dash MD Primary Care Provider [phone] Jimbo Dash MD Unavailable Dr. Jimbo Dash Primary Care Provider Dr. Jimbo Dash Referring Provider Dr. Tony Jasmine Attending Provider [phone] KINGS Griffith Attending Provider Dr. Tony Jasmine Other Provider Jimbo Dash MD Primary Care Provider Jimbo Dash MD Unavailable Dr. Jimbo Dash Primary Care Provider Dr. Jimbo Dash Referring Provider Dr. Tony Jasmine Attending Provider Dr. Audie Moran Attending Provider Patrick KU, PA Martine Attending Provider [phone] Dr. Reji Goldberg Attending Provider [phone] Jimbo Dash Primary Care Provider Dr. Jimbo Dash Referring Provider Dr. Audie Moran Attending Provider Patrick KU, PA Martine Attending Provider [phone] Dr. Reji Goldberg Attending Provider [phone] Patrick KU, PA Martine Referring Provider [phone] Dr. Jimbo Dash Primary Care Provider Dr. Jimbo Dash Referring Provider Dr. Jimbo Dash Primary Care Provider Dr. Jimbo Dash Referring Provider Patrick, PA Martine Attending Provider Dr. Reji Goldberg Referring Provider [phone] Reji Goldberg Other Provider Dr. Reji Goldberg Attending Provider [phone] Jimbo Dash Primary Care Provider Dr. Reji Goldberg Attending Provider [phone] KINGS Power Referring Provider [phone] Jimbo Dash Referring Provider KINGS Griffith Attending Provider Dr. Jimbo Dash Primary Care Provider Dr. Reji Goldberg Attending Provider [phone] KINGS Power Referring Provider [phone] Jimbo Dash Referring Provider Art KU PA Saeid Attending Provider Dr. Jimbo Dash Primary Care Provider Dr. Jimbo Dash MD Primary Care Provider [phone] Hardy MCELROY, Dr. Choi Attending Provider Hardy MCELROY, Dr. Choi Referring Provider Jennifer GEORGE, Dr. Emery Attending Provider Jennifer DO, Dr. Emery Referring Provider Jennifer DO, Dr. Emeyr Emergency Provider Ashlyn MCELROY, Dr. Mendoza Attending Provider [phone] Tono PA, Martine Attending Provider [phone] Tono PA, Martine Referring Provider [phone] Ashlyn MCELROY, Dr. Mendoza Referring Provider Hardy MCELROY, Jimbo Joseph Primary Care Provider Hardy MCELROY, Jimbo R Unavailable [phone] Hardy MCELROY, Dr. Choi Primary Care Provider [phone] Hardy MCELROY, Dr. Choi Attending Provider [phone] Hardy MCELROY, Dr. Choi Referring Provider Ashlyn MCELROY, Dr. Mendoza Attending Provider ELDIA ANGELO Attending Provider ELIDA ANGELO Referring Provider Power, Martine Referring Unavailable Brandt Powerison Attending Unavailable Jimbo Dash Primary Care Unavailable Mp Torrez Attending Unavailable Jimbo Dash Primary Care Unavailable PowerMartine alicea Attending Unavailable Bower, Carole Admitting Unavailable Bower, Carole Consulting Unavailable Lolita Everton Referring Unavailable Hardy, Jimbo Primary Care Unavailable Ashlyn, Reji Consulting Unavailable Lolita, Everton Consulting Unavailable Jimbo Dash Referring Unavailable Jimbo Dash Attending Unavailable Hardy, Jimbo Primary Care Unavailable Dash, Jimbo Primary Care Unavailable Jimbo Dash Referring Unavailable Jimbo Dash Attending Unavailable Assessment, Health Risk Referring Unavaila ble Assessment, Health Risk Attending Unavaila ble Hardy, Jimbo Primary Care Unavailable Bower, Carole Admitting Unavailable Bower, Carole Consulting Unavailable Hardy, Jimbo Primary Care Unavailable eller Everton Attending Unavailable [place], Reji Consulting Unavailable Power, Martine Referring Unavailable Power, Martine Attending Unavailable Dash, Jimbo Primary Care Unavailable Everton Mchugh Attending Unavailable Carole Bower Attending Unavailable Dash, Jimbo Referring Unavailable Dash, Jimbo Attending Unavailable Dash, Jimbo Primary Care Unavailable Dash, Jimbo Primary Care Unavailable Dash, Jimbo Attending Unavailable Dash, Jimbo Referring Unavailable Dash, Jimbo Attending Unavailable Dash, Jimbo Primary Care Unavailable Dash, Jimbo Referring Unavailable Dash, Jimbo Attending Unavailable Dash, Jimbo Primary Care Unavailable [place], Reji Referring Unavailable [place], Reji Attending Unavailable Dash, Jimbo Primary Care Unavailable [place], Reji Attending Unavailable Le, Rupert Referring Unavailable Le, Rupert Attending Unavailable Dash, Jimbo Primary Care Unavailable Ashlyn, Reji Attending Unavailable Dash, Jimbo Primary Care Unavailable Dash, Jimbo Referring Unavailable Power, Martine Attending Unavailable Dash, Jimbo Primary Care Unavailable Dash, Jimbo Referring Unavailable Ashlyn, Reji Attending Unavailable Dash, Jimbo Referring Unavailable Dash, Jimbo Primary Care Unavailable Power, Martine Referring Unavailable [place], Reji Attending Unavailable Dash, Jimbo Primary Care Unavailable Everton Mchugh Referring Unavailable Power, Martine Attending Unavailable Dash, Jimbo Primary Care Unavailable RobertoHorta, Reji Referring Unavailable Mark, Cliff Attending Unavailable Dash, Jimbo Primary Care Unavailable Ashlyn, Reji Attending Unavailable Dash, Jimbo Primary Care Unavailable Addison Rodríguez Referring Unavailable Power, Martine Attending Unavailable Dash, Jimbo Primary Care Unavailable Dash, Jimbo Referring Unavailable [place], Reji Attending Unavailable Le, Rupert Referring Unavailable Dash, Jimbo Primary Care Unavailable ED VELOZ Referring Unavailable Dash, Jimbo Primary Care Unavailable ED VELOZ Attending Unavailable ELIDA ANGELO Attending Unavailable RIC TAYLOR Referring Unavailable DASH, JIMBO R Primary Care Unavailable FÁTIMA SANTILLAN Attending Unavailable SANTILLAN, FÁTIMA Referring Unavailable DASH, JIMBO R Primary Care Unavailable FÁTIMA SANTILLAN Attending Unavailable DASH, JIMBO R Primary Care Unavailable RIC TAYLOR Attending Unavailable DASH, JIMBO R Primary Care Unavailable MARGUERITE DAILY Attending Unavailable DASH, JIMBO R Primary Care Unavailable DASH, JIMBO R Primary Care Unavailable MARGUERITE DAILY Referring Unavailable Allergies Allergy Classification Reported Allergen(s) Allergy Type Date of Onset Reaction(s) Facility (5 sources) acetaminophen / HYDROcodone drug allergy 7 [facility] Work Phone: (20 sources) Aspirin; Translations: [ASPIRIN] Drug Allergy 6 [facility] Work Phone: (20 sources) HYDROcodone Drug Allergy 0 Nausea/Vom/Diar sawyer [facility] (20 sources) oxyCODONE; Translations: [OXYCODONE] Drug Allergy 2 Itching [facility] (15 sources) Acetaminophen / HYDROcodone; Translations: [HYDROCODONE-ACET AMINOPHEN] Drug Allergy 7 Vomiting [facility] (1 source) HYDROcodone Drug Allergy 5 [facility] (1 source) oxyCODONE Drug Allergy 4 [facility] Medications Current Medications Medication Drug Class(es) Dates Sig (Normalized) Sig (Original) alendronic acid 70 mg oral tablet (3 sources) Bisphosphonate Start: 11-28-2023 take 1 tablet by mouth every week Alendronate 70 mg tablet Active 70 mg PO EVERY WEEK November 28, 2023 12:00am apixaban 5 mg oral tablet (20 sources) Factor Xa Inhibitor Start: 12-25-2023 End: 02-28-2024 take 1 tablet by mouth twice daily Apixaban (Eliquis) 5 mg tablet Active 5 mg PO TWICE A DAY 60 February 28, 2024 12:32pm Start: 12-03-2023 End: 12-25-2023 take 1 tablet by mouth once Apixaban (Eliquis Dvt-Pe T reat 30d Start) 5 mg (74 tabs) tablets,dose pack Discontinued 0 PO .COMPLEX 74 December 03, 2023 12:00am December 25, 2023 2:11pm orally per package directions Start: 08-30-2022 End: 04-12-2023 Apixaban (Eliquis) 2.5 mg ta blet Discontinued 1 NMA PO TWICE A DAY August 30, 2022 12:00am April 12, 2023 11:21am Start: 08-30-2022 End: 04-12-2023 take 1 tablet by mouth twice daily Apixaban (Eliquis) 2.5 mg tablet Discontinued 1 TAB PO TWICE A DAY August 30, 2022 12:00am April 12, 2023 11:21am Start: 05-03-2022 End: 08-30-2022 take 1 tablet by mouth once Apixaban 5 mg tablet Disco ntinued 5 mg PO ONCE May 03, 2022 12:49pm August 30, 2022 4:05pm Start: 07-12-2016 End: 05-03-2022 take 1 tablet by mouth twice daily Apixaban 5 MG tablet Discontinued 5 mg PO TWICE A DAY May 05, 2019 1:00am May 03, 2022 12:51pm Start: 07-05-2016 ELIQUIS 5 MG T ABS 10 mg a day APIXABAN [id number] Leigha Rebolledo Wagner Start: 05-15-2016 End: 07-12-2016 take 2 tablets by mouth twice daily, then take 1 tablet by mouth twice daily Apixaban (Eliquis) 5 MG tablet Discontinued 5 mg PO TWICE A DAY May 15, 2016 1:00am July 12, 2016 2:42pm Take 10 mg by mouth twice daily for the first seven days. Then take 5 mg twice daily after that. apixaban (ELIQUI S ORAL) Take by mouth. Active apixaban (ELIQUI S ORAL) Take by mouth. 0 Active Comment on above: Take by mouth. ascorbic acid 1000 mg oral tablet (3 sources) Vitamin C Start: 0 take 1000 mg by mouth once daily Ascorbic Acid (Vitamin C) Active 1000 MG PO DAILY March 07, 2020 1:00am cephalexin 500 mg oral capsule (20 sources) Cephalosporin Antibacterial Start: 5 End: 5 take 1 capsule by mouth twice daily cephALEXin (KEFLEX) 500 mg capsule Indications: Closed nondisplaced fracture of distal phalanx of lesser toe of left foot, initial encounter Take 1 capsule by mouth two times a day for 4 days. 8 capsule 12/08/2024 12/12/2024 Active Start: 05-12-2019 End: 05-15-2019 take 1 capsule by mouth every twelve hours Cephalexin 500 MG capsule Discontinued 500 mg PO EVERY 12 HOURS 6 3 May 12, 2019 1:00am May 14, 2019 1:00am May 15, 2019 1:08am cetirizine hydrochloride 10 mg oral capsule (20 sources) Histamine-1 Receptor Antagonist Start: 04-12-2022 take 1 capsule by mouth once daily Cetirizine (Zyrtec) 10 mg capsule Active 10 mg PO DAILY April 12, 2022 1:00am Comment on above: Take by mouth. Cholecalciferol (Vitamin D3) (Vitamin D3) 5,000 UNIT capsule (20 sources) Start: 03-07-2020 take 1 capsule by mouth once daily Cholecalciferol (Vitamin D3) (Vitamin D3) 5,000 UNIT capsule Active 5000 U PO DAILY March 07, 2020 1:00am Start: 03-07-2020 take 1 capsule by mo uth once daily Cholecalciferol (Vitamin D3) (Vitamin D3) 5,000 UNIT capsule Active 5000 UNIT PO DAILY March 07, 2020 12:00am Start: 03-07-2020 take 1 capsule by mo uth once daily Cholecalciferol (Vitamin D3) (Vitamin D3) 5,000 UNIT capsule Active 5000 UNIT PO DAILY March 07, 2020 1:00am dicyclomine hydrochloride 20 mg oral tablet (16 sources) Anticholinergic Start: 10-02-2022 dicyclomine (B ENTYL) 20 mg tablet Dicyclomine 20 mg Tablet Active 20 mg PO TWICE A DAY October 02, 2022 12:00am 10/02/2022 Active enteric contrast (will be provided with radiology test) (1 source) Start: 09-25-2024 End: 09-26-2024 enteric contrast (will be provided with radiology test) Indications: Bladder stone , Calculus of urinary bladder For CT PELVIS WO IVCON order Administer, As Directed One Time Only, via Oral, Rectal, both Oral and Rectal, Enteric Tube, Stoma or Indwelling Catheter, Enteric Contrast as designated per enteric contrast guidelines 1 each 09/25/2024 09/26/2024 Active estradiol 0.1 mg/ml vaginal cream (14 sources) Estrogen Start: 10-23-2024 estradiol (EST RACE) 0.01 % (0.1 mg/gram) vaginal cream Indications: atrophic vaginitis associated with menopause , atrophy of vulva Use 1 g vaginally two times a week. Please use the applicator provided in the package. 42 g 11 10/23/2024 Active Start: 10-27-2021 End: 08-26-2024 estradiol (ESTRACE) 0.01 % ( 0.1 mg/gram) vaginal cream Indications: Vaginal atrophy Use 1 g vaginally daily at bedtime for 14 days, THEN 1 g two times a week. 42.5 g 1 09/17/2022 08/26/2024 Discontinued (Course of therapy completed) Comment on above: Use 1 g vaginally on ce daily. Use daily x 14 days then twice weekly Use 1 g vaginally da alexander at bedtime for 14 days, THEN 1 g two times a week. ibuprofen 600 mg oral tablet (16 sources) Nonsteroidal Anti-inflammatory Drug Start: End: take 1 tablet by mouth every six hours as needed ibuprofen 600 mg ORAL tablet Take 1 tablet by mouth every 6 hours as needed. FOR PAIN. 30 tablet 2 03/16/2011 08/26/2024 Discontinued (Course of therapy completed) Start: 12-15-2010 End: 08-26-2024 take 1 tablet by mouth three times daily for pain ibuprofen 600 mg ORAL tablet Indications: Leg pain, left Take 1 tablet by mouth three times daily. for pain. 30 tablet 1 12/15/2010 08/26/2024 Discontinued (Course of therapy completed) Comment on above: Take 1 tablet by dom th three times daily. for pain. Take 1 tablet by dom th every 6 hours as needed. FOR PAIN. omeprazole 20 mg delayed release oral tablet (20 sources) Proton Pump Inhibitor Start: 03-07-20 take 1 tablet by mouth at bedtime Omeprazole 20 MG tablet,delayed release (DR/EC) Active 20 mg PO AT BEDTIME March 07, 2020 1:00am phenazopyridine hydrochloride 200 mg oral tablet (17 sources) Start: 10-13-19 take 1 tablet by mouth every eight hours as needed phenazopyridine (PYRIDIUM) 200 mg tablet Take 1 tablet by mouth three times daily as needed. 9 tablet 10/12/2021 Active Comment on above: Take 1 tablet by dom th three times daily as needed. pitavastatin calcium 2 mg oral tablet (20 sources) HMG-CoA Reductase Inhibitor Start: 02-09-20 Pitavastatin Calcium (Livalo) 2 mg Tablet Active 4 mg PO EVERY EVENING February 08, 2022 12:00am Start: 07-05-2016 LIVALO 2 MG TA BS PITAVASTATIN CALCIUM [id number] Leigha Edward Start: 05-15-2016 take 2 mg by mouth at bedtime Pitavastatin Calcium Active 2 MG PO AT BEDTIME May 15, 2016 1:00am pitavastatin samm cium (LIVALO ORAL) Take by mouth. Active pitavastatin samm cium (LIVALO ORAL) Take by mouth. 0 Active Comment on above: Take by mouth. predniSONE 10 mg oral tablet (3 sources) Start: 04-30-19 23 End: 08-27-19 25 predniSONE (DELTASONE) 10 mg tablet Take 4 tabs daily for 3 days, then 2 tabs daily for 3 days, then 1 tab daily for 3 days with food. 21 tablet 04/30/2022 08/26/2024 Discontinued (Course of therapy completed) Comment on above: Take 4 tabs daily fo r 3 days, then 2 tabs daily for 3 days, then 1 tab daily for 3 days with food. raNITIdine 150 mg oral tablet (18 sources) Histamine-2 Receptor Antagonist Start: 08-08-19 12 take 1 tablet by mouth twice daily ranitidine (ZANTAC) 150 mg ORAL tablet Take 1 tablet by mouth twice daily. 60 tablet 11 08/08/2011 Active Comment on above: Take 1 tablet by dom twice daily. sulfamethoxazole 800 mg / trimethoprim 160 mg oral tablet (1 source) Dihydrofolate Reductase Inhibitor Antibacterial, Sulfonamide Antimicrobial Start: 10-13-19 End: 10-16-19 22 sulfamethoxazole-tr imethoprim (BACTRIM DS) 800-160 mg per tablet Take 1 tablet by mouth twice daily for 3 days. FOR 3 DAYS. 6 tablet 0 10/12/2021 10/15/2021 Active Comment on above: Take 1 tablet by dom twice daily for 3 days. FOR 3 DAYS. Surgical Lubricant Jelly gel (7 sources) Start: 12-05-19 25 Surgical Lubricant Jelly gel For MRI Female Pelvis, MRI department to provide. Administer intra-vaginal Surgilube immediately prior the MRI procedure (total amount to patient toleranace). 5 g 12/04/2024 Active Start: 10-23-2024 Surgical Lubri cant Jelly gel For MRI Female Pelvis, MRI department to provide. Administer intra-vaginal Surgilube immediately prior the MRI procedure (total amount to patient toleranace). 5 g 10/23/2024 Active tiZANidine 2 mg oral tablet (3 sources) Central alpha-2 Adrenergic Agonist Start: 12-10-2023 take 1 tablet by mouth at bedtime as needed Tizanidine 2 mg tablet Active 2 mg PO AT BEDTIME as needed for muscle spasticity December 10, 2023 12:00am vitamin b12 5 mg disintegrating oral tablet (20 sources) Vitamin B12 Start: 03-07-2020 cyanocobalamin , vitamin B-12, 5,000 mcg ODT 3,000 mcg. 03/07/2020 Active Start: 03-07-2020 take 3000 ug by mout h once daily Cyanocobalamin (Vitamin B-12) Active 3000 MCG PO DAILY March 07, 2020 1:00am Completed/Discontinued Medications Medication Drug Class(es) Dates Sig (Normalized) Sig (Original) acetaminophen 300 mg / codeine phosphate 30 mg oral tablet (20 sources) Opioid Agonist Start: 02-15-2022 End: 05-03-2022 Acetaminophen-Codei ne 300-30 mg tablet Discontinued 1 - 2 {tbl} PO EVERY 6 HOURS NEEDED as needed for Pain Score 6-10/10 10 February 15, 2022 12:00am May 03, 2022 12:49pm Start: 02-15-2022 End: 05-03-2022 take 1 tablet by mouth every six hours as needed Acetaminophen-Codeine Discontinued 1 - 2 TABLET PO EVERY 6 HOURS NEEDED 10 February 15, 2022 12:00am May 03, 2022 12:49pm Start: 10-22-2018 End: 10-28-2018 take 1-2 tablets by mouth every six hours as needed for pain Acetaminophen-Codeine 1 TABLET tablet Discontinued 1 - 2 {tbl} PO EVERY 6 HOURS NEEDED as needed for Pain 16 08October 22, 2018 12:00am October 25, 2018 12:00am October 28, 2018 12:06am stop all other tylenol, take as directed Start: 10-22-2018 End: 10-28-2018 take 1-2 tablets by mouth every six hours as needed Acetaminophen-Codeine Discontinued 1 - 2 TABLET PO EVERY 6 HOURS NEEDED 16 08October 22, 2018 12:00am October 28, 2018 12:06am stop all other tylenol, take as directed acetaminophen 325 mg / HYDROcodone bitartrate 5 mg oral tablet (20 sources) Opioid Agonist Start: 02-04-2019 End: 02-09-2019 Hydrocodone-Acetaminophen 1 TABLET tablet Discontinued 1 - 2 {tbl} PO EVERY 6 HOURS NEEDED as needed for Pain 40 February 04, 2019 February 08, 2019 12:00am February 09, 2019 12:09am Start: 02-04-2019 End: 02-09-2019 take 1 tablet by mouth every six hours as needed Hydrocodone-Acetaminophen Discontinued 1 - 2 TABLET PO EVERY 6 HOURS NEEDED 40 February 04, 2019 February 09, 2019 12:09am acetaminophen 325 mg / oxyCODONE hydrochloride 5 mg oral tablet (20 sources) Opioid Agonist Start: 07-04-2019 End: 07-07-2019 Oxycodone-Acetaminophen 1 TABLET tablet Discontinued 1 {tbl} PO EVERY 6 HOURS NEEDED as needed for Pain 12 July 04, 2019 July 06, 2019 12:00am July 07, 2019 12:08am Start: 07-04-2019 End: 07-07-2019 take 1 tablet by mouth every six hours as needed Oxycodone-Acetaminophen Discontinued 1 TABLET PO EVERY 6 HOURS NEEDED 12 July 04, 2019 July 07, 2019 12:08am Start: 02-12-2019 End: 05-05-2019 take 1-2 tablets by mouth every six hours as needed for pain Oxycodone-Acetaminophen (Percocet) 5-325 mg tablet Discontinued 1 {tbl} PO EVERY 6 HOURS as needed for pain March 02, 2019 May 05, 2019 11:33am take 1-2 tabs every 6 hours as needed for pain, stop all other narcotics and tylenol products Start: 02-06-2019 End: 02-11-2019 take 1-2 tablets by mouth every six hours as needed for pain Oxycodone-Acetaminophen (Percocet) 5-325 mg tablet Discontinued 0 PO EVERY 6 HOURS as needed for pain 40 February 06, 2019 February 10, 2019 12:00am February 11, 2019 12:08am 1-2 tablets PO Q6H PRN; Start: 05-17-2017 End: 09-25-2018 Oxycodone-Acetaminophen 1 TA BLET tablet Discontinued 1 - 2 {tbl} PO EVERY 4 HOURS NEEDED as needed for Pain May 17, 2017 1:00am September 25, 2018 9:36am Start: 05-17-2017 End: 09-25-2018 take 1 tablet by mouth every four hours as needed Oxycodone-Acetaminophen Discontinued 1 - 2 TABLET PO EVERY 4 HOURS NEEDED May 17, 2017 1:00am September 25, 2018 9:36am amoxicillin 500 mg oral capsule (20 sources) Penicillin-class Antibacterial Start: 04-29-2018 End: 05-09-2018 take 1 capsule by mouth twice daily Amoxicillin 500 mg capsule Discontinued 500 mg PO TWICE A DAY 15 02April 29, 2018 1:00am May 08, 2018 1:00am May 09, 2018 1:11am amoxicillin 875 mg / clavulanate 125 mg oral tablet (3 sources) Penicillin-class Antibacterial Start: 09-12-2023 End: 09-22-2023 Amoxicillin-Pot Clavulanate 875-125 mg tablet Discontinued 1 {tbl} PO Q12H 15 02September 12, 2023 12:00am September 21, 2023 12:00am September 22, 2023 12:05am baclofen vaginal suppository 10 mg (CPD) (4 sources) Start: 09-17-2022 End: 09-24-2024 baclofen vaginal suppository 10 mg (CPD) Indications: Levator spasm , Female dyspareunia , Myalgia of pelvic floor Unwrap and insert 1 Suppository vaginally once daily as directed. 30 Suppository 2 09/17/2022 09/24/2024 Discontinued (Course of therapy completed) Start: 09-17-2022 baclofen vagin al suppository 10 mg (CPD) Indications: Levator spasm , Female dyspareunia , Myalgia of pelvic floor Unwrap and insert 1 Suppository vaginally once daily as directed. 30 Suppository 2 09/17/2022 Active Comment on above: Unwrap and insert 1 Suppository vaginally once daily as directed. calcium carbonate 1500 mg oral tablet (13 sources) Start: End: take 1 tablet by mouth twice daily Calcium Carbonate 600 mg calcium (1,500 mg) tablet Discontinued 600 mg PO TWICE A DAY April 12, 2022 1:00am November 28, 2023 3:10pm cholecalciferol 0.05 mg oral capsule (13 sources) Vitamin D Start: End: 023 take 1 capsule by mouth once daily Cholecalciferol (Vitamin D3) 50 mcg (2,000 unit) capsule Discontinued 50 ug PO DAILY April 12, 2022 1:00am May 03, 2022 12:50pm clopidogrel 75 mg oral tablet (10 sources) [id number] Platelet Inhibitor Start: 023 End: 024 take 1 tablet by mouth once daily Clopidogrel (Plavix) 75 mg tablet Discontinued 75 mg PO DAILY October 03, 2022 12:00am November 28, 2023 3:11pm docusate sodium 100 mg oral capsule (20 sources) Start: 014 End: 015 take 1 capsule by mouth twice daily Docusate Sodium (Dok) 100 MG capsule Discontinued 200 mg PO TWICE A DAY April 07, 2014 1:00am October 30, 2014 8:26am 1 po bid to prevent constipation while on narcotic pain med iv contrast (will be provided with radiology test) (1 source) Start: End: iv contrast (will be provided with radiology test) MRI Female Pelvis Inject, intravenously, once for 1 dose. No IV access, insert saline lock prior to the beginning of sedation, infusion, injection of imaging exam. Discontinue saline lock post exam. If Pt has a central line or IVAD, may access for administration according to line specific nursing protocol. Once exam is complete flush line and de-access according to line specific nursing protocol in the MR contrast administration guidelines link. 1 each 10/23/2024 10/24/2024 lidocaine hydrochloride 0.02 mg/mg topical gel (2 sources) Antiarrhythmic, Amide Local Anesthetic Start: End: lidocaine urojet 2 % 6 mL topical gel (GLYDO) Start: 10-23-2024 End: 10-23-2024 6 mL, URETHRAL, ONCE (UP TO 30 DAYS AMB), 1 dose, On Sat10/23/24 at 1000 Magnesium (18 sources) Start: 02-08-2022 End: 10-25-2022 take 1 tablet by mouth once daily Magnesium 200 mg Tablet Discontinued 200 mg PO DAILY February 08, 2022 12:00am October 25, 2022 1:47pm Start: 02-08-2022 End: 10-25-2022 take 200 mg by mouth once daily Magnesium Discontinued 200 MG PO DAILY February 07, 2022 11:00pm October 25, 2022 12:47pm Start: 02-08-2022 End: 10-25-2022 take 200 mg by mouth once daily Magnesium Discontinued 200 MG PO DAILY February 08, 2022 12:00am October 25, 2022 1:47pm Start: 02-08-2022 take 200 mg by mouth once daily Magnesium Active 200 MG PO DAILY February 07, 2022 11:00pm Start: 02-08-2022 take 200 mg by mouth once daily Magnesium Active 200 MG PO DAILY February 08, 2022 12:00am methylPREDNISolone 4 mg oral tablet (3 sources) Corticosteroid Start: 09-12-2023 End: 09-18-2023 take 1 tablet by mouth once Methylprednisolone (Medrol (Woodrow)) 4 mg tablets,dose pack Discontinued 4 mg PO per package directions 17 10September 12, 2023 12:00am September 17, 2023 12:00am September 18, 2023 12:07am nitrofurantoin, macrocrystals 25 mg / nitrofurantoin, monohydrate 75 mg oral capsule (20 sources) Nitrofuran Antibacterial Start: 12-18-2021 End: 12-25-2021 take 1 capsule by mouth every twelve hours at mealtime Nitrofurantoin Monohyd/M-Cryst 100 mg capsule Discontinued 1 NMA PO Q12H 14 7 December 18, 2021 12:00am December 24, 2021 12:00am December 25, 2021 12:04am administer with a meal/food; swallow whole; do not open, crush, dissolve , or chew ondansetron 4 mg oral tablet (20 sources) Serotonin-3 Receptor Antagonist Start: 02-06-2019 End: 02-11-2019 take 1 tablet by mouth three times daily as needed for nausea and vomiting Ondansetron Hcl (Zofran) 4 mg tablet Discontinued 4 mg PO THREE TIMES A DAY as needed for nausea and vomiting 15 5 February 06, 2019 12:00am February 10, 2019 12:00am February 11, 2019 12:08am oxyCODONE hydrochloride 5 mg oral tablet (3 sources) Opioid Agonist Start: 12-03-2023 End: 06-11-2024 take 1 tablet by mouth every eight hours as needed for pain Oxycodone 5 mg tablet Discontinued 5 mg PO Q8H as needed for pain 9 3 December 03, 2023 June 11, 2024 3:30pm penciclovir 10 mg/ml topical cream (20 sources) Herpesvirus Nucleoside Analog DNA Polymerase Inhibitor Start: 04-12-2022 Penciclovir (Denavir) 1 % cream Active 1 APPLIC TOPICAL Q2H April 12, 2022 12:00am Start: 03-16-2011 End: 08-26-2024 Penciclovir (Denavir) 1 % cr eam Discontinued 1 NMA TOPICAL Q2H April 12, 2022 1:00am November 28, 2023 3:12pm Comment on above: Apply to affected ar ea every 2 hours. Topically to sore 5 times daily until area clears sertraline 100 mg oral tablet (20 sources) Serotonin Reuptake Inhibitor Start: 07-05-2016 ZOLOFT 100 MG TABS SERTRALINE HCL [id number] Leigha Edward Start: 03-30-2014 Sertraline 100 MG tablet Active 50 mg PO TWICE A DAY March 30, 2014 1:00am Start: 03-30-2014 take 50 mg by mouth twice kosta y Sertraline Active 50 MG PO TWICE A DAY March 30, 2014 1:00am Comment on above: Take 100 mg by mouth once daily. traMADol hydrochloride 50 mg oral tablet (20 sources) Opioid Agonist Start: 0 End: 0 take 1 tablet by mouth every six hours as needed for pain Tramadol 50 MG tablet Discontinued 50 mg PO EVERY 6 HOURS NEEDED as needed for Pain Score 1-5/10 10 5 May 12, 2019 1:00am May 16, 2019 1:00am May 17, 2019 1:08am Start: 03-25-2019 End: 05-05-2019 Tramadol 50 mg tablet Discon tinued 0 PO .COMPLEX as needed for pain 40 March 25, 2019 1:00am May 05, 2019 11:33am 1-2 tabs PO Q 6-8 hours PRN; Vitamin B6-Vitamin E-Magnesium (15 sources) Start: 02-08-2022 End: 05-03-2022 take 1 tablet by mouth once daily Vitamin B6-Vitamin E-Magnesium Discontinued 1 TABLET PO DAILY February 08, 2022 12:00am May 03, 2022 12:51pm Start: 02-08-2022 End: 05-03-2022 take 1 tablet by mouth once daily Vitamin B6-Vitamin E-Magnesium Discontinued 1 TABLET PO DAILY February 07, 2022 11:00pm May 03, 2022 11:51am Start: 02-08-2022 take 1 tablet by dom th once daily Vitamin B6-Vitamin E-Magnesium Active 1 TABLET PO DAILY February 07, 2022 11:00pm Start: 02-08-2022 take 1 tablet by dom th once daily Vitamin B6-Vitamin E-Magnesium Active 1 TABLET PO DAILY February 08, 2022 12:00am Vitamin B6-Vitamin E-Magnesium Tablet (3 sources) Start: 02-08-2022 End: 05-03-2022 Vitamin B6-Vitamin E-Magnesium Tablet Discontinued 1 {tbl} PO DAILY February 08, 2022 12:00am May 03, 2022 12:51pm zolpidem tartrate 5 mg oral tablet (20 sources) gamma-Aminobuty johanna Acid-ergic Agonist Start: 02-04-2019 End: 05-05-2019 take 1 tablet by mouth at bedtime as needed Zolpidem 5 MG tablet Discontinued 5 mg PO AT BEDTIME NEEDED as needed for Insomnia February 04, 2019 12:00am May 05, 2019 11:33am Problems Active Problems Problem Classification Problem Date Documented Date Episodic/Chronic Acquired foot deformities (20 sources) Acquired hallux valgus; Translations: [Hallux valgus (acquired), unspecified foot] Onset: 02-18-2006 Resolved: 07-19-2009 08-04-2009 Chronic Allergic reactions (1 source) Inflammatory dermatosis; Translations: [Dermatitis, unspecified] Episodic Calculus of urinary tract (20 sources) Urinary bladder stone; Translations: [Calculus in bladder] Onset: 09-24-2024 03-21-2020 Episodic Complications of surgical procedures or medical care (1 source) Complication of medical care 11-24-2024 Episodic Disorders of lipid metabolism (1 source) Hyperlipidemia, unspecified; Translations: [Hyperlipidemia, unspecified] Onset: 08-21-2024 Chronic Esophageal disorders (4 sources) Gastroesophageal reflux disease; Translations: [Gastro-esophageal reflux disease without esophagitis] Onset: 12-13-2023 12-11-2023 Chronic Fracture of lower limb (15 sources) Displaced fracture of proximal phalanx of right lesser toe(s), initial encounter for closed fracture; Translations: [Stress fracture of metatarsal bone] Onset: 08-05-2006 Resolved: 07-19-2009 12-10-2016 Episodic Fracture of upper limb (20 sources) Fracture of distal end of radius; Translations: [Unspecified fracture of the lower end of left radius, initial encounter for closed fracture] 07-05-2019 Episodic Immunizations and screening for infectious disease (9 sources) Contact with and (suspected) exposure to other viral communicable diseases; Translations: [Contact with or suspected exposure to other viral communicable disease] 05-09-2023 Episodic Inflammation; infection of eye (except that caused by tuberculosis or sexually transmitteddisease) (20 sources) Acute conjunctivitis; Translations: [Unspecified acute conjunctivitis, left eye] 05-12-2019 Episodic Menopausal disorders (2 sources) Atrophy of vagina; Translations: [Postmenopausal atrophic vaginitis] Chronic Open wounds of head; neck; and trunk (20 sources) Laceration of forehead; Translations: [Laceration without foreign body of other part of head, initial encounter] 07-05-2019 Episodic Other aftercare (6 sources) Long-term current use of anticoagulant; 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] 03-21-2024 Episodic Other connective tissue disease (3 sources) Pain in calf; Translations: [Pain in right lower leg] 06-19-2024 Episodic Other connective tissue disease (1 source) Spasm; Translations: [Other muscle spasm] 08-26-2024 Episodic Other diseases of bladder and urethra (20 sources) Postoperative urethral stricture; Translations: [Postoperative urethral stricture] 03-21-2020 Episodic Other diseases of bladder and urethra (20 sources) Urethral stenosis; Translations: [Urethral stenosis] 03-21-2020 Episodic Other diseases of veins and lymphatics (12 sources) Vulval varices; Translations: [Vulval varices] 08-01-2022 Episodic Other diseases of veins and lymphatics (8 sources) Vulval varices; Translations: [Vulval varices] 08-01-2022 Episodic Other diseases of veins and lymphatics (10 sources) Occlusion of iliac vein; Translations: [Compression of vein] 10-25-2022 Episodic Other female genital disorders (1 source) Dyspareunia; Translations: [Other specified dyspareunia] Chronic Other female genital disorders (1 source) Pain in female genitalia on intercourse; Translations: [Unspecified dyspareunia] 08-26-2024 Chronic Other female genital disorders (1 source) Vaginospasm; Translations: [Vaginismus] Episodic Other injuries and conditions due to external causes (1 source) Injury of toe of left foot; Translations: [Unspecified injury of left foot, initial encounter] 12-08-2024 Episodic Other injuries and conditions due to external causes (1 source) Unspecified injury of left foot, initial encounter; Translations: [Injury of toe on left foot, initial encounter] Onset: 12-08-2024 Episodic Other nervous system disorders (18 sources) Plantar nerve lesion; 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, unspecified lower limb] Onset: 05-04-2010 05-04-2010 Chronic Other upper respiratory infections (12 sources) Acute upper respiratory infection; Translations: [Acute upper respiratory infection, unspecified] 05-09-2023 Episodic Residual codes; unclassified (20 sources) Family history of cancer of colon; Translations: [Family history of malignant neoplasm of digestive organs] 11-21-2021 Episodic Residual codes; unclassified (7 sources) Family history of malignant neoplasm of digestive organs; Translations: [Family history of malignant neoplasm of gastrointestinal tract] Episodic Residual codes; unclassified (1 source) Past history of procedure; Translations: [Other specified postprocedural states] 08-26-2024 Episodic Unclassified (1 source) Postoperative physical examination; Translations: [Encounter for other specified surgical aftercare] Onset: 07-31-2016 07-31-2016 Unclassified (1 source) Established Patient Onset: 08-26-2024 Viral infection (20 sources) Disease caused by 2019-nCoV; Translations: [COVID-19] 05-12-2021 Episodic Past or Other Problems Problem Classification Problem Date Documented Da te Episodic/Chronic Abdominal hernia (11 sources) Incisional hernia; Translations: [Incisional hernia without obstruction or gangrene] Onset: 03-24-2008 Resolved: 07-19-2009 07-19-2009 Episodic Abdominal pain (4 sources) Abdominal pain; Translations: [Unspecified abdominal pain] Onset: 04-08-2024 03-21-2024 Episodic Acquired foot deformities (11 sources) Bunion; Translations: [Bunion of unspecified foot] Onset: 02-27-2006 Resolved: 07-19-2009 07-19-2009 Episodic Complication of device; implant or graft (20 sources) Disorders of musculoskeletal implants and repairs; Translations: [Other specified complication of internal orthopedic prosthetic devices, implants and grafts, initial encounter] Onset: 09-15-2009 09-15-2009 Episodic Genitourinary symptoms and ill-defined conditions (20 sources) Dysuria; Translations: [Dysuria] Onset: 06-10-2024 Episodic Nonspecific chest pain (4 sources) Chest pain; Translations: [Chest pain, unspecified] Onset: 06-24-2024 06-19-2024 Episodic Other aftercare (4 sources) Encounter for [...] left finger(s)] Onset: 07-05-2016 07-05-2016 Episodic Other connective tissue disease (11 sources) Pain in limb; Translations: [Pain in unspecified limb] Onset: 08-05-2006 Resolved: 07-19-2009 07-19-2009 Episodic Other connective tissue disease (11 sources) Enthesopathy; Translations: [Enthesopathy, unspecified] Onset: 10-09-2006 Resolved: 07-19-2009 07-19-2009 Episodic Other connective tissue disease (1 source) Other specified soft tissue disorders; Translations: [Other specified soft tissue disorders] Onset: 01-07-2024 Episodic Other diseases of veins and lymphatics (3 sources) Compression of vein; Translations: [Compression of vein] Onset: 11-28-2023 10-25-2022 Episodic Other gastrointestinal disorders (20 sources) Constipation; Translations: [Constipation, unspecified] Onset: 01-15-2011 01-15-2011 Episodic Other injuries and conditions due to external causes (1 source) Injury, unspecified, initial encounter; Translations: [Injury, unspecified, initial encounter] Onset: 06-10-2024 Episodic Other nervous system disorders (1 source) Other acute postprocedural pain; Translations: [Other acute postprocedural pain] Onset: 12-13-2023 Episodic Other non-traumatic joint disorders (5 sources) Knee pain; Translations: [Pain in unspecified knee] Onset: 10-29-2016 10-29-2016 Episodic Phlebitis; thrombophlebitis and thromboembolism (20 sources) H/O: Deep vein thrombosis; Translations: [Personal history of other venous thrombosis and embolism] Onset: 11-28-2023 05-03-2022 Episodic Sprains and strains (20 sources) Strain of unspecified muscle(s) and tendon(s) at lower leg level, unspecified leg, initial encounter; Translations: [Sprain of foot] Onset: 08-04-2009 10-29-2016 Episodic Unclassified (2 sources) Pain; Translations: [Pain, unspecified] Onset: 12-10-2016 12-10-2016 Episodic Unclassified (1 source) Injury of toe of left foot 12-08-2024 Urinary tract infections (12 sources) Urinary tract infection, site not specified; Translations: [Urinary tract infection, site not specified] Onset: 12-13-2023 Episodic Varicose veins of lower extremity (20 sources) Varicose veins of lower extremity; Translations: [Asymptomatic varicose veins of unspecified lower extremity] Onset: 11-28-2023 04-20-2022 Episodic Comment on above: Associated with Pain . 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 This started 1 day ago/kicked furniture. Has tried otc medication for relief. Symptoms are worsened by walking. Denies numbness/tingling. .Patient presents with: left 2nd toe pain: X 1 day-hit toe on couch last night PAST MEDICAL HISTORY Diagnosis Date Anxiety state, unspecified Bunion 02/27/2006 Enthesopathy of unspecified site 10/09/2006 Hallux valgus (acquired) 02/18/2006 Other hammer toe (acquired) 02/27/2006 Pain in limb 08/05/2006 Stress fracture of the metatarsals 08/05/2006 PAST SURGICAL HISTORY Procedure Laterality Date COLONOSCOPY FLX DX W/COLLJ SPEC WHEN PFRMD 02/01/2011 Normal Colonoscopy CYSTOSCOPY 02/15/[address] Nicole, no exposure of urethral mesh, 1 cm calculus bladder wall removed LIG/TRNSXJ FLP TUBE ABDL/VAG APPR UNI/BI NEUROPLASTY AND/TRANSPOS MEDIAN NRV CARPAL TUNNE 04/29/2004 both PAST SURGICAL HISTORY OF 06/28/2003 right bunionectomy PAST SURGICAL HISTORY OF 04/29/2002 left bunionectomy- had infection after PAST SURGICAL HISTORY OF 04/24/2006 right bunionectomy RPR UMBILICAL HRNA 5 YRS/> REDUCIBLE 04/26/2008 Simple S SLING BLADDER 04/06/2014 Placement of tension free vaginal sling, cystoscopy (Dr. Luis, [facility]) VAGINAL HYSTERECTOMY 04/06/2014 LAVH, BSO, anterior and posterior repair (Dr. Muniz, [facility]) ALLERGIES Hydrocodone-Acetami nophen, Aspirin, and Oxycodone MEDICATIONS Surgical Lubricant Jelly gel For MRI Female Pelvis, MRI department to provide. Administer intra-vaginal Surgilube immediately prior the MRI procedure (total amount to patient toleranace). Surgical Lubricant Jelly gel For MRI Female Pelvis, MRI department to provide. Administer intra-vaginal Surgilube immediately prior the MRI procedure (total amount to patient toleranace). dicyclomine (BENTYL) 20 mg tablet Dicyclomine 20 mg Tablet Active 20 mg PO TWICE A DAY October 02, 2022 12:00am cyanocobalamin, vitamin B-12, 5,000 mcg ODT 3,000 mcg. estradiol (ESTRACE) 0.01 % (0.1 mg/gram) vaginal cream Use 1 g vaginally two times a week. Please use the applicator provided in the package. phenazopyridine (PYRIDIUM) 200 mg tablet Take 1 tablet by mouth three times daily as needed. apixaban (ELIQUIS ORAL) Take by mouth. pitavastatin calcium (LIVALO ORAL) Take by mouth. Cetirizine 10 mg cap Take by mouth. sertraline (ZOLOFT) 100 mg tablet Take 100 mg by mouth once daily. ranitidine (ZANTAC) 150 mg ORAL tablet Take 1 tablet by mouth twice daily. (Patient not taking: Reported on 10/23/2024) FAMILY HISTORY Problem Relation Age of Onset Allergies Mother Diabetes Mother Thyroid Mother Hypertension Father Lipids Father SOCIAL HISTORY[1] Review of Systems Objective BP 118/72 Pulse 73 Temp 36.7 ?C (98 ?F) (Tympanic) Resp 18 Wt 64.2 kg (141 lb 8.6 oz) LMP 04/05/2011 SpO2 98% BMI 25.07 kg/m? Physical Exam Constitutional: General: She is not in acute distress. Appearance: She is not toxic-appearing or diaphoretic. HENT: Head: Normocephalic and atraumatic. Pulmonary: Effort: Pulmonary effort is normal. No accessory muscle usage or respiratory distress. Musculoskeletal: Feet: Neurological: Mental Status: She is alert and oriented to person, place, and time. ASSESSMENT/PLAN: 1. Closed nondisplaced fracture of distal phalanx of lesser toe of left foot, initial encounter - ICD9: 826.0, ICD10: S92.535A (primary diagnosis) Post op shoe provided F/u with transfusion aide in 10 days if s/s persist. Prophylactic atb ordered F/u for s/s infection. 2. Injury of toe on left foot, initial encounter - ICD9: 959.7, ICD10: S99.922A - XR TOE AP/LAT/OBL LEFT IMPRESSION: Probable intra-articular fracture of the base of the distal phalanx of the second digit Dictated by : DO Marguerite SAWYER APRN.CNP History and Record Review External record(s) reviewed: prior outpatient record. Disposition The patient was discharged. Procedures [1] Social History Tobacco Use Smoking status: Never Smokeless tobacco: Never Vaping Use Vaping status: Never Used Substance Use Topics Alcohol use: No Drug use: No Marguerite Daily APRN.CNP 12/08/2024 3:46 PM Signed Addended by: MARGUERITE DAILY on: 12/08/2024 03:46 PM Modules accepted: Orders Allergies As of Date: 12/08/2024 Noted Allergy Reaction HYDROCODONE-ACETAMI NOPHEN 10/29/2016 (more content not included)... Normal [facility] [place] XR TOE 3V AP/LAT/OBL LTon XR TOE 3V AP/LAT/OBL LT * * *Final Repor t* * * DATE OF EXAM: Dec 08 2024 2:36PM WOX [id number] - XR TOE 3V AP/LAT/OBL LT / PROCEDURE REASON: Injury of toe on left foot, initial encounter * * * * Physician Interpretation * * * * EXAM(s): XR TOE 3V AP/LAT/OBL LT..... HISTORY: 59 years old Clinical information: Injury of toe on left foot, initial encounter Left 2nd toe pain and bruising after stubbing toe last night TECHNIQUE: Images: XR TOE 3V AP/LAT/OBL LT Comparison: None. RESULT: Findings: There is soft tissue swelling over the second digit. Suggestion of a fracture proximal superior aspect of the distal phalanx extending into the joint space There is narrowing of all the visualized interphalangeal joints IMPRESSION: Probable intra-articular fracture of the base of the distal phalanx of the second digit Yarn Dumper: PSCB Transcribe Date/Time: Dec 08 2024 2:37P Dictated by : JOSEPH WATKINS DO This examination was interpreted and the report reviewed and electronically signed by: JOSEPH WATKINS DO on Dec 08 2024 2:40PM EST [id number] Normal [facility] [place] XR Toes - left 3 Viewson IMPRESSION: Probable intra-articular fracture of the base of the distal phalanx of the second digit Yarn Dumper: GREGORY Transcribe Date/Time: Dec 08 2024 2:37P Dictated by : JOSEPH WATKINS DO This examination was interpreted and the report reviewed and electronically signed by: JOSEPH WATKINS DO on Dec 08 2024 2:40PM [facility] DIVISION OF RADIOLOGY * * *Final Report* * * DATE OF EXAM: Dec 08 2024 2:36PM WOX [id number] - XR TOE 3V AP/LAT/OBL LT / PROCEDURE REASON: Injury of toe on left foot, initial encounter * * * * Physician Interpretation * * * * EXAM(s): XR TOE 3V AP/LAT/OBL LT..... HISTORY: 59 years old Clinical information: Injury of toe on left foot, initial encounter Left 2nd toe pain and bruising after stubbing toe last night TECHNIQUE: Images: XR TOE 3V AP/LAT/OBL LT Comparison: None. RESULT: Findings: There is soft tissue swelling over the second digit. Suggestion of a fracture proximal superior aspect of the distal phalanx extending into the joint space There is narrowing of all the visualized interphalangeal joints DIVISION OF RADIOLOGY Provider, [facility] - 12/08/2024 * * *Final Report* * * DATE OF EXAM: Dec 08 2024 2:36PM WOX 5268 - XR TOE 3V AP/LAT/OBL LT / PROCEDURE REASON: Injury of toe on left foot, initial encounter * * * * Physician Interpretation * * * * EXAM(s): XR TOE 3V AP/LAT/OBL LT..... HISTORY: 59 years old Clinical information: Injury of toe on left foot, initial encounter Left 2nd toe pain and bruising after stubbing toe last night TECHNIQUE: Images: XR TOE 3V AP/LAT/OBL LT Comparison: None. RESULT: Findings: There is soft tissue swelling over the second digit. Suggestion of a fracture proximal superior aspect of the distal phalanx extending into the joint space There is narrowing of all the visualized interphalangeal joints IMPRESSION IMPRESSION: Probable intra-articular fracture of the base of the distal phalanx of the second digit Yarn Dumper: GREGORY Transcribe Date/Time: Dec 08 2024 2:37P Dictated by : JOSEPH WATKINS DO This examination was interpreted and the report reviewed and electronically signed by: JOSEPH WATKINS DO on Dec 08 2024 2:40PM FARHEEN [facility] Radiology Study observation (narrative) Rafia bryant [facility] XR Toes - left 3 ViewsOrdere d By: [facility] Provider on 12-08-2024 [facility] CNPNon 11-23-2024 CNPN Telephone (UROLAG) ---- JIMYKAROLINA Alejandra ([id number]) 1965 F Date Time Provider Department 11/23/24 FÁTIMA SANTILLAN UROLAG During your visit today, we recorded the following information about you: Fátima Santillan MD 11/24/2024 10:42 PM Addendum Please send clinic notes from date of service 10/23/2024. Hopefully this will allow for MRI approval. When she has the MRI, schedule clinic appointment as quickly as possible. You can take a new patient slot. Her planned procedure will be dictated from the MRI findings, but most likely she will need robotic assisted mesh removal. Gala Slater 11/25/2024 8:42 AM Signed 11-25-24 I reached out to the auth dept to advise that the clinic notes are completed , the request for the MRI will be resubmitted to insurance carrier Cece Chandler 12/03/2024 2:12 PM Signed Patients order is can we add a new order and help her schedule? Please advise Fátima Vital MD 12/04/2024 6:37 PM Addendum New order placed. Please assist with scheduling and any associated follow up as previously planned Fátima Santillan MD 12/04/2024 6:37 PM Signed Addended by: FÁTIMA SANTILLAN on: 12/04/2024 06:37 PM Modules accepted: Orders Allergies As of Date: 11/23/2024 Noted Allergy Reaction HYDROCODONE-ACETAMI NOPHEN 10/29/2016 11 - Vomiting ASPIRIN 02/27/2006 Comments: tired and weak and made her feel weird can take Ibuprofen OXYCODONE 02/08/2022 9 - Itching Date Reviewed: 10/23/2024 Reviewed by: Alejandra Flannery MA - Fully Assessed Reason for Visit: Orders [681] Primary Visit Diagnosis:Infection in abdomen (HCC) [K65.9] Order(s):MRI FEMALE PELVIS WO/W IVCON [[id number]] Order #: [id number] FUTURE iv contrast (will be provided with radiology test)MRI Female Pelvis Inject, intravenously, once for 1 dose. No IV access, insert saline lock prior to the beginning of sedation, infusion, injection of imaging exam. Discontinue saline lock post exam. If Pt has a central line or IVAD, may access for administration according to line specific nursing protocol. Once exam is complete flush line and de-access according to line specific nursing protocol in the MR contrast administration guidelines link.Disp: 1 eachRfl: 0 Surgical Lubricant Jelly gelFor MRI Female Pelvis, MRI department to provide. Administer intra-vaginal Surgilube immediately prior the MRI procedure (total amount to patient toleranace).Disp: 5 gRfl: 0 Surgical Lubricant Jelly gelFor MRI Female Pelvis, MRI department to provide. Administer intra-vaginal Surgilube immediately prior the MRI procedure (total amount to patient toleranace).Disp: 5 gRfl: 0 Prescriptions as of 12/04/2024 - iv contrast (will be provided with radiology test) MRI Female Pelvis Inject, intravenously, once for 1 dose. No IV access, insert saline lock prior to the beginning of sedation, infusion, injection of imaging exam. Discontinue saline lock post exam. If Pt has a central line or IVAD, may access for administration according to line specific nursing protocol. Once exam is complete flush line and de-access according to line specific nursing protocol in the MR contrast administration guidelines link. - Surgical Lubricant Jelly gel For MRI Female Pelvis, MRI department to provide. Administer intra-vaginal Surgilube immediately prior the MRI procedure (total amount to patient toleranace). - Surgical Lubricant Jelly gel For MRI Female Pelvis, MRI department to provide. Administer intra-vaginal Surgilube immediately prior the MRI procedure (total amount to patient toleranace). - dicyclomine (BENTYL) 20 mg tablet Dicyclomine 20 mg Tablet Active 20 mg PO TWICE A DAY October 02, 2022 12:00am - cyanocobalamin, vitamin B-12, 5,000 mcg ODT 3,000 mcg. - estradiol (ESTRACE) 0.01 % (0.1 mg/gram) vaginal cream Use 1 g vaginally two times a week. Please use the applicator provided in the package. - phenazopyridine (PYRIDIUM) 200 mg tablet Take 1 tablet by mouth three times daily as needed. - apixaban (ELIQUIS ORAL) Take by mouth. - pitavastatin calcium (LIVALO ORAL) Take by mouth. - Cetirizine 10 mg cap Take by mouth. - sertraline (ZOLOFT) 100 mg tablet Take 100 mg by mouth once daily. - ranitidine (ZANTAC) 150 mg ORAL tablet Take 1 tablet by mouth twice daily. Problem List As Of Date 11/23/2024 Noted Resolved Hallux Valgus (Acquired) [M20.10] 02/18/2006 07/19/2009 Other Hammer Toe (Acquired) [M20.40] 02/27/2006 07/19/2009 Bunion [M21.619] 02/27/2006 07/19/2009 Pain in Soft Tissues of Limb [M79.609] 08/05/2006 07/19/2009 Stress Fracture of the Metatarsals [M84.376A] 08/05/2006 07/19/2009 Enthesopathy of Unspecified Site [M77.9] 10/09/2006 07/19/2009 Incisional Hernia without Mention of Obstructio*03/24/20 08 07/19/2009 Hallux Valgus (Acquired) [M20.10] 08/04/2009 Sprain and Strain of Unspecified Site of Foot [ (more content not included)... Normal [facility] TAHIRAOVon 10-23-2024 [facility] Office Visit (UROLAE) ---- KAROLINA AHN ([id number]) 1965 F Date Time Provider Department 10/23/24 9:45 AM FÁTIMA SANTILLAN During your visit today, we recorded the following information about you: Fátima Santillan MD 11/24/2024 11:13 PM Signed [facility] NEW PATIENT CONSULT/HISTORY AND PHYSICAL PATIENT: Karolina Ahn (59 year old) REFERRING PROVIDER: PCP: Jimbo Dash MD ASSESSMENT/PLAN: 1. Recurrent bladder calculus. Calcification seen on today's cystoscopy represents foreign body reaction from prior mid urethral sling insertion. Outside operative reports reviewed. Sling placed in 2013 was retropubic approach. Patient has required 2 laser lithotripsies for bladder calculi. She has recurrent stone. Pelvic CT without contrast showed no lymphadenopathy/italo ateral iliac stents. Recommend pelvic MRI with IV contrast to rule out pelvic inflammation/absces s or other associated pelvic findings associated with the bladder mesh erosion. Anticipating robotic assisted transabdominal removal of mesh. This will include intentional cystotomy with removal of foreign body with excision of mesh, bladder calculus and closure of cystotomy. Prior to robotic portion of the case, patient will need cystoscopy with bilateral ureteral stent insertion. Will finalize surgical plans once MRI pelvis obtained and reviewed. 2. Dyspareunia Patient developed pain with intercourse LAVH/BSO/AP repair mid urethral sling. She was diagnosed with vaginismus and recently seen by gynecology. She has been to pelvic floor PT in the past and may wish to return after managing current problem. Mesh erosion with foreign body reaction may be contributing to pain with intercourse. Patient will return to the office after MRI to review imaging and finalize surgical plans. Written and verbal health teaching given to patient, patient verbalizes understanding and agrees with treatment plan. Patient will call if worsening symptoms, no improvement, or any other concerns. Plan discussed. CHIEF COMPLAINT: Bladder stone HISTORY OF PRESENT ILLNESS: The patient has a history of a bladder stone. She was last seen by Martine KATZ on 09/24/2024. Other /urogyn providers: April Nicole MD Epic Kaleidoscope Analyst: STERLING Dunn The patient was seen by STERLING Dunn of DATA MINING ANALYST for 2-month history of dysuria and pelvic pain. She has a history of 2 bladder stones status post cystoscopy with laser lithotripsy by April Nicole MD in 2020 and in 2021. April Nicole MD repeated cystoscopy on 07/28/2024 and identified a 1 cm calcification dome of the bladder. The patient was sent for additional urologic evaluation. In 2013, patient underwent retropubic mid urethral sling concurrent with LAVH/BSO/AP repair. Recent imaging CT pelvis without IV contrast (10/13/2024): 4.5 mm calcification adherent to right anterolateral aspect of bladder wall. Mild thickening surrounding aspect bladder wall. Unremarkable iliac stents. Calcified atheromatous plaques iliac arteries. No lymphadenopathy. Current voiding concerns Daytime frequency: Every 2 hours Urinary urgency: Occasional Nighttime frequency: 1 Urge incontinence: No Stress incontinence: None s/p mid urethral sling Denies hesitancy, straining, slow stream Denies gross hematuria or dysuria Denies vaginal bleeding, discharge, odor ++ Dyspareunia; evaluated by gynecology recently. Plans to attend pelvic floor PT for vaginismus after addressing bladder stone. Fluid intake: 32 ounces Triggers: - Dietary: None identified - Situational: None identified The patient completed a PFDI-20 and I have reviewed and confirmed the responses documented by my nurse/MA at today's visit. Today's [id number] urine testing trace, intact blood, negative nitrite, small leukocyte. Previous Urogyn Procedures 04/06/2014, LAVH, BSO, anterior and posterior colporrhaphy (Kat Muniz MD) Previous Urologic Procedures 04/06/2014, cystoscopy and placement of retropubic tension-free vaginal sling, (Zander Luis MD-concurrent with prolapse surgery outlined above) 2020, laser lithotripsy bladder calculus) April Nicole MD). 02/15/2022, laser lithotripsy of bladder calculus (April Nicole MD)-op report reviewed. Findings are 1 cm bladder stone anterior bladder wall Current Urologic Medications None reported Previous HRT-blood clots Past DATA MINING ANALYST History: G 6 P 6 Vaginal deliveries: 6 section: 0 History of third or fourth degree laceration: Yes Weight of largest baby: 9 pounds 7 ounces Hysterectomy: Yes/48 years old (LAVH/BSO/AP repair) Diagnosis: Bleeding prolapse Ovaries removed: Yes Menopause : yes, surgical at 48 HRT :no; HRT associated with blood clots Menstrual history: Menarche 12yo Sexual functio (more content not included)... Normal [facility] CNOV Office Visit (UROLAE) ---- KAROLINA AHN ([id number]) 1965 F Date Time Provider Department 10/23/24 9:30 AM FÁTIMA SANTILLAN During your visit today, we recorded the following information about you: Pulse Blood pressure 76/minute 123/81 Fátima Santillan MD 11/24/2024 11:02 PM Signed Fátima Santillan MD 11/24/2024 11:02 PM Signed CYSTOSCOPY PROCEDURE NOTE: Karolina Ahn is a 59 year old female who presents with recurrent bladder stones. Cystoscopy is planned. Pt ID verified with patient: Yes Procedure verified with patient: Yes Procedure confirmed with physician and client support administrator: Yes UNIVERSAL PROTOCOL / SAFETY CHECKLIST Procedure to be Performed: Flexible cystoscopy Sign In: A Moment of CARE was completed. Appropriate PPE (Personal Protective Equipment) worn by all providers involved with the procedure. Special equipment not required. Patient/Surrogate Stated/Verified: Patient name, Date of , Relevant allergies, and The intended procedure Time Out: Relevant labs, photos, and/or imaging studies have been reviewed. Intended patient and procedure match the source document(s) (e.g. consent, HANDP, associated studies [imaging, pathology]) match the intended patient and procedure. Consent obtained and matches the intended procedure. Yes. Correct side/site is not applicable. Medications required for this procedure are verified. Fire risk assessed and is not applicable. Implants: are not applicable. Sign Out: Specimens are all correctly labeled and sent. All instruments, equipment, possible retained foreign bodies are accounted for. Yes. The post-procedure plan of care has been communicated to the patient or surrogate. A urinalysis was performed revealing no evidence of infection. The benefits, risks, alternatives of the cystoscopy procedure and personnel were discussed with the patient. The verbal consent was obtained and the patient agrees to proceed. Procedure: The patient was placed on the procedure table in the supine position and prepped and draped in the usual sterile fashion. 2% Lidocaine Jelly was placed per urethra as an anesthetic in the standard fashion. Once adequate local anesthesia was achieved, the tip of the Flexible cystoscope was carefully placed into the urethra under direct visual guidance. The scope was negotiated per urethra into the bladder. There is no evidence of urethral diverticulum, stricture, kinking or angulation. Careful ellington endoscopy was carried out. The posterior, superior and lateral gomez and dome of the bladder were all well visualized and the scope was retroflexed upon itself. Calcified foreign bodies seem to traverse right anterolateral aspect of bladder wall. This would be the expected trajectory of puncture due to prior sling. Presumed foreign body reaction. Bladder trabeculation none. No diverticulum or cellules. Ureteral orifices normal in position, number and configuration. At the conclusion of the procedure, the Flexible cystoscope was removed atraumatically. The patient tolerated the procedure without complications. Patient was given standard post-procedure instructions, and was directed to complete the course of oral antibiotics and increase oral fluid intake as directed. Circular Knitter Helper offered:Patient accepts, visit chaperoned by Alejandra Flannery MA ASSESSMENT/PLAN: Bladder calculus, presumed foreign body reaction status post prior mid urethral sling See separate visit note for assessment, plans and further evaluation. Fátima Santillan MD 10/23/2024 10:22 AM Signed Vaginal Estrogen Indication: You have been prescribed vaginal estrogen cream for one or more of the indications below: To reduce the occurrence of urinary tract infections (UTIs) Rejuvenation of the vaginal tissue (see symptoms of genitourinary syndrome of menopause) Increase the effect of medications used for the bladder Improve painful intercourse caused by menopausal changes Create a better environment for pessary wearers Genitourinary syndrome of menopause. Symptoms of genitourinary syndrome of menopause may include, but is not limited to, genital symptoms of dryness, burning, and irritation; sexual symptoms of lack of lubrication, discomfort or pain, and impaired function; and urinary symptoms of urgency, dysuria, and recurrent urinary tract infections. The gold standard treatment for GSM is vaginal estrogen. Use of topical vaginal estrogen twice weekly has been shown to reduce the frequency of postmenopausal urinary tract infections by 60%. Estradiol vaginal cream can take 2 to 3 months to reach its full effect. It may cause some leakage and vaginal irritation for some people. While rare, you may experience breast pain when you start using it. But estradiol vaginal cream isn?t linked to serious side effects, such as blood clots or breast ca (more content not included)... Normal [facility] UA DIP, URINE (POC)on 2024 BILIRUBIN UA (POCT) Negative Negative [facility] CLARITY UA (POCT) Clear [facility] COLOR UA (POCT) Yellow [facility] GLUCOSE UA (POCT) Negative Negative mg/dL [facility] Hemoglobin Ql (U) Trace-intact Abnormal Negative [facility] Interpretation and review of laboratory results Abnormal [facility] KETONE UA (POCT) Negative Negative mg/dL [facility] LEUKOCYTES UA (POCT) Small Abnormal Negative [facility] NITRITE UA (POCT) Negative [facility] PH UA (POCT) 7 4.5 - 8.0 [facility] Protein Ql (U) Negative Negative mg/dL [facility] SPECIFIC GRAVITY UA (POCT) 1.02 1.005 - 1.030 [facility] UROBILINOGEN UA (POCT) 0.2 Elizabet l E.U./dL [facility] Location:[facility], [address] [place] [address], [address] [place] [address] [facility] LISANDRON Telephone (UROLAE) ---- KAROLINA AHN ([id number]) 1965 F Date Time Provider Department 10/15/24 ELIDA ANGELO During your visit today, we recorded the following information about you: Elida Angelo APRN.LISANDRO 10/15/2024 1:[address] result received via fax. It shows a well defined 4.5mm calcification adherent to right anterolateral aspect of bladder wall, adherent stone vs mural calcification within a bladder wall lesion. Will ask staff to scan into chart and to also request the images for Dr Pathak to review. Patient has cystoscopy with him 11/03/24. Elida Angelo APRN.Fátima Kwok MD 10/21/2024 7:45 AM Signed Per my conversations with Ladarius Pathak MD, we will reschedule patient's cystoscopy from him to Fátima Santillan MD given likelihood that this is associated with mid urethral sling erosion. Please reschedule. Rebeca Curry MA 10/21/2024 1:54 PM Signed Left message to advise patient she is scheduled for cystoscopy with Dr. Santillan on 10/23/24 at 9:30 at the [facility]. PEYTON Saini Donna, MA 10/22/2024 8:39 AM Signed Spoke with patient and confirmed appointment. Rebeca Curry MA Allergies As of Date: 10/15/2024 Noted Allergy Reaction HYDROCODONE-ACETAMI NOPHEN 10/29/2016 11 - Vomiting ASPIRIN 02/27/2006 Comments: tired and weak and made her feel weird can take Ibuprofen OXYCODONE 02/08/2022 9 - Itching Date Reviewed: 09/24/2024 Reviewed by: Elida Angelo APRN.LISANDRO - Fully Assessed Reason for Visit: Results [95] Prescriptions as of 10/22/2024 - phenazopyridine (PYRIDIUM) 200 mg tablet Take 1 tablet by mouth three times daily as needed. - apixaban (ELIQUIS ORAL) Take by mouth. - pitavastatin calcium (LIVALO ORAL) Take by mouth. - Cetirizine 10 mg cap Take by mouth. - sertraline (ZOLOFT) 100 mg tablet Take 100 mg by mouth once daily. - ranitidine (ZANTAC) 150 mg ORAL tablet Take 1 tablet by mouth twice daily. Problem List As Of Date 10/15/2024 Noted Resolved Hallux Valgus (Acquired) [M20.10] 02/18/2006 07/19/2009 Other Hammer Toe (Acquired) [M20.40] 02/27/2006 07/19/2009 Bunion [M21.619] 02/27/2006 07/19/2009 Pain in Soft Tissues of Limb [M79.609] 08/05/2006 07/19/2009 Stress Fracture of the Metatarsals [M84.376A] 08/05/2006 07/19/2009 Enthesopathy of Unspecified Site [M77.9] 10/09/2006 07/19/2009 Incisional Hernia without Mention of Obstructio*03/24/20 08 07/19/2009 Hallux Valgus (Acquired) [M20.10] 08/04/2009 Sprain and Strain of Unspecified Site of Foot [*08/04/2009 Complication NEC, Orth Dev NEC [T84.89XA] 09/15/2009 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] 05/04/2010 Unspecified constipation [K59.00] 01/15/2011 Encounter Status:Closed by ELIDA ANGELO on 10/15/24 Normal [facility] Pelvis without IV Contraston 10-13-2024 Pelvis without IV Contrast [facility] Imaging Services [address] [place] [id number] Pelvis without IV Contrast MR#: [id number] Acct: [id number] Name: KAROLINA AHN Rep #: [id number] : 1965 F 59 From: Pablo mosley MD PCP: Dr. Jimbo Dash MD Status: REG CLI Study: Pelvis without IV Contrast Date of Exam: 10/13 Exam# [id number] Ordering Dr: Lian PittmanOut o. PROCEDURE: PELVIS WITHOUT IV CONTRAST 10/13/2024 REASON FOR EXAM: BLADDER STONE TECHNIQUE: PELVIS WITHOUT IV CONTRAST One or more dose reduction techniques were used (e.g., Automated exposure control, adjustment of the mA and/or kV according to patient size, use of iterative reconstruction technique). RADIATION DOSE SUMMARY: CTDlvol: 7.36 mGy DLP: 270 mGycm COMPARISON: 03/13/2024. FINDINGS: Prior hysterectomy. Adequately distended bladder. Well-defined 4.5 mm calcification adherent to the right anterolateral aspect of the bladder wall. Findings may represent an adherent stone versus mural calcification within a bladder wall lesion. Mild thickening of the corresponding aspect of the bladder wall. No lymphadenopathy is seen. Calcified atheromatous plaques of the iliac arteries. Unremarkable iliac venous stents. Moderate amount of fecal residue in the large bowels. Mild osteopenia. Grade 1 anterolisthesis of L4 on L5. Diffuse spondylosis. CT/Pelvis without IV Contrast IMPRESSION: Prior hysterectomy. Adequately distended bladder. Well-defined 4.5 mm calcification adherent to the right anterolateral aspect of the bladder wall. Findings may represent an adherent stone versus mural calcification within a bladder wall lesion. Mild thickening of the corresponding aspect of the bladder wall. No lymphadenopathy is seen. Calcified atheromatous plaques of the iliac arteries. Unremarkable iliac venous stents. Moderate amount of fecal residue in the large bowels. Mild osteopenia. Reading Location[facility] CC: ELIDA ANGELO; Dr. Jimbo Dash MD Yarn Dumper: Signed [facility] ---- KAROLINA AHN ([id number]) 1965 F Date Time Provider Department 09/25/24 ELIDA ANGELO During your visit today, we recorded the following information about you: Elida Angelo APRN.AUTO PARTS HANDLER 09/25/2024 12:20 PM Signed Patient is aware of plan for CT and cystoscopy with Dr Pathak. Orders have been placed in office visit from yesterday. Please help patient schedule. Thanks. Elida Angelo APRN.Cece Vidal 09/28/2024 9:14 AM Signed [facility] to call and confirm Cece Galvan 09/29/2024 8:13 AM Signed LVM Cece Galvan 09/30/2024 8:41 AM Signed Confirmed - having CT done [facility] Cece Greenanahi Allergies As of Date: 09/25/2024 Noted Allergy Reaction HYDROCODONE-ACETAMI NOPHEN 10/29/2016 11 - Vomiting ASPIRIN 02/27/2006 Comments: tired and weak and made her feel weird can take Ibuprofen OXYCODONE 02/08/2022 9 - Itching Date Reviewed: 09/24/2024 Reviewed by: Elida Angelo APRN.AUTO PARTS HANDLER - Fully Assessed Reason for Visit: Patient Update [1234] Prescriptions as of 09/30/2024 - phenazopyridine (PYRIDIUM) 200 mg tablet Take 1 tablet by mouth three times daily as needed. - apixaban (ELIQUIS ORAL) Take by mouth. - pitavastatin calcium (LIVALO ORAL) Take by mouth. - Cetirizine 10 mg cap Take by mouth. - sertraline (ZOLOFT) 100 mg tablet Take 100 mg by mouth once daily. - ranitidine (ZANTAC) 150 mg ORAL tablet Take 1 tablet by mouth twice daily. Problem List As Of Date 09/25/2024 Noted Resolved Hallux Valgus (Acquired) [M20.10] 02/18/2006 07/19/2009 Other Hammer Toe (Acquired) [M20.40] 02/27/2006 07/19/2009 Bunion [M21.619] 02/27/2006 07/19/2009 Pain in Soft Tissues of Limb [M79.609] 08/05/2006 07/19/2009 Stress Fracture of the Metatarsals [M84.376A] 08/05/2006 07/19/2009 Enthesopathy of Unspecified Site [M77.9] 10/09/2006 07/19/2009 Incisional Hernia without Mention of Obstructio*03/24/20 08 07/19/2009 Hallux Valgus (Acquired) [M20.10] 08/04/2009 Sprain and Strain of Unspecified Site of Foot [*08/04/2009 Complication NEC, Orth Dev NEC [T84.89XA] 09/15/2009 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] 05/04/2010 Unspecified constipation [K59.00] 01/15/2011 Encounter Status:Closed by ELIDA ANGELO on 09/25/24 Normal [facility] BLADDER SCANon 09-24-2024 PVR 0 Cc [facility] CNOVon 09-24-2024 CNOV Office Visit (UROLAE) ---- KAROLINA AHN ([id number]) 1965 F Date Time Provider Department 09/24/24 11:00 AM ELIDA ANGELO During your visit today, we recorded the following information about you: Pulse Blood pressure Height 88/minute 118/73 1.6 m Elida Angelo APRN.AUTO PARTS HANDLER 09/25/2024 12:20 PM Addendum [facility] [place] UROL [place] [facility] NEW PATIENT UROLOGY VISIT 09/24/2024 7:33 AM PATIENT NAME: Karolina Ahn DATE OF : 1965 TODAY'S DATE: 09/24/2024 Referring Provider: Ric Taylor [id number] [facility] [id number] Referring Note Reviewed: Yes Chief Complaint: bladder stone History of Present Illness: Ms. Ahn is a 59 year old female who presents to the office regarding bladder stone. She has had surgery with Dr Nicole twice in the past for bladder stones. She had a cystoscopy on 07/28/24, which showed a bladder stone (details below and see scanned documents). She has been referred by her DATA MINING ANALYST office. Chart notes and results reviewed. Reports dysuria, pelvic pain x2 months. Symptoms today are present as they have been for the past 2 months. S/p bladder sling, hysterectomy, rectocele repair with Dr Edmondson in 2013 Per referring provider: Has been seen by Dr. Nicole, urologist - cystoscopy on 07/28/24 revealed a 1cm calcification in the dome of the bladder - pt reports having bladder stones removed twice in the past (in the OR ) - states she has been experiencing UTI symptoms including dysuria and sharp pelvic pains with negative cultures Patient states that Dr Nicole removed her previous 2 bladder stones but due to position would like patient to a specialist. Review of Systems Constitutional: Negative for fever. Genitourinary: Positive for dysuria and pelvic pain. Negative for difficulty urinating, flank pain, frequency, hematuria and urgency. See HPI Past Medical History: PAST MEDICAL HISTORY Diagnosis Date Anxiety state, unspecified Bunion 02/27/2006 Enthesopathy of unspecified site 10/09/2006 Hallux valgus (acquired) 02/18/2006 Other hammer toe (acquired) 02/27/2006 Pain in limb 08/05/2006 Stress fracture of the metatarsals 08/05/2006 Past Surgical History: PAST SURGICAL HISTORY Procedure Laterality Date COLONOSCOPY FLX DX W/COLLJ SPEC WHEN PFRMD 02/01/2011 Normal Colonoscopy CYSTOSCOPY 02/15/[address] Nicole, no exposure of urethral mesh, 1 cm calculus bladder wall removed LIG/TRNSXJ FLP TUBE ABDL/VAG APPR UNI/BI NEUROPLASTY AND/TRANSPOS MEDIAN NRV CARPAL TUNNE 04/29/2004 both PAST SURGICAL HISTORY OF 06/28/2003 right bunionectomy PAST SURGICAL HISTORY OF 04/29/2002 left bunionectomy- had infection after PAST SURGICAL HISTORY OF 04/24/2006 right bunionectomy RPR UMBILICAL HRNA 5 YRS/> REDUCIBLE 04/26/2008 Simple S SLING BLADDER 04/06/2014 Placement of tension free vaginal sling, cystoscopy (Dr. Luis, [facility]) VAGINAL HYSTERECTOMY 04/06/2014 LAVH, BSO, anterior and posterior repair (Dr. Muniz, [facility]) Social History: Social History Tobacco Use Smoking status: Never Smokeless tobacco: Never Vaping Use Vaping status: Never Used Substance Use Topics Alcohol use: No Drug use: No Medications: Prior to Admission medications : Medication baclofen vaginal suppository 10 mg (CPD), Sig Unwrap and insert 1 Suppository vaginally once daily as directed., Start Date 09/17/22, End Date , Taking? , Authorizing Provider Walt Ulrich APRN.AUTO PARTS HANDLER Medication phenazopyridine (PYRIDIUM) 200 mg tablet, Sig Take 1 tablet by mouth three times daily as needed., Start Date 10/12/21, End Date , Taking? , Authorizing Provider Bekah Redd APRN.CNM Medication apixaban (ELIQUIS ORAL), Sig Take by mouth., Start Date , End Date , Taking? , Authorizing Provider Provider, [facility] Medication pitavastatin calcium (LIVALO ORAL), Sig Take by mouth., Start Date , End Date , Taking? , Authorizing Provider Provider, [facility] Medication Cetirizine 10 mg cap, Sig Take by mouth., Start Date , End Date , Taking? , Authorizing Provider Provider, [facility] Medication sertraline (ZOLOFT) 100 mg tablet, Sig Take 100 mg by mouth once daily., Start Date , End Date , Taking? , Authorizing Provider Provider, [facility] Medication ranitidine (ZANTAC) 150 mg ORAL tablet, Sig Take 1 tablet by mouth twice daily., Start Date 08/08/11, End Date , Taking? , Authorizing Provider Yonis Sanchez MD ALLERGIES Allergen Reactions Hydrocodone-Acetami * Vomiting Aspirin tired and weak and made her feel weird can take Ibuprofen Oxycodone Itching Problem List Reviewed: Yes Vitals: BP 118/73 Pulse 88 Ht 160 cm (5' 3) LMP 04/05/2011 BMI 25.33 kg/m? Recent Labs: Color (no units) Date Value 09/17/2022 Light Yellow Clarity (no units) Date Value 09/17/2022 C (more content not included)... Normal [facility] UA DIP, URINE (POC)on 2024 BILIRUBIN UA (POCT) Negative Negative [facility] CLARITY UA (POCT) Clear [facility] COLOR UA (POCT) Yellow [facility] GLUCOSE UA (POCT) Negative Negative mg/dL [facility] Hemoglobin Ql (U) Negative Negative [facility] KETONE UA (POCT) Negative Negative mg/dL [facility] LEUKOCYTES UA (POCT) Negative Negative [facility] NITRITE UA (POCT) Negative Negative [facility] PH UA (POCT) 7 4.5 - 8.0 [facility] Protein Ql (U) Negative Negative mg/dL [facility] SPECIFIC GRAVITY UA (POCT) 1.015 1.005 - 1.030 [facility] UROBILINOGEN UA (POCT) 0.2 Elizabet l E.U./dL [facility] Location:[facility], [address], [place], [address] [facility] POINT OF CARE [facility] Anion gap in Serum or Plasma Ordered By: Jimbo Dash on 08-17-2024 Anion gap [Moles/Vol] 11 mmol/L 5-15 [facility] BUN/creatinine ratioOrdered By: Jimbo Dash on 08-17-2024 Urea nitrogen/Creatinine [Mass ratio] 23.4 mg/mg High 10-20 [facility] Bilirubin, totalOrdered By: Jimbo Dash on 08-17-2024 Bilirubin [Mass/Vol] 0.52 mg/dL 0.00-1.30 [facility] Calculated very low density lipoprotein (VLDL) cholesterol measurementOrdered By: Jimbo Dash on 08-17-2024 Calculated very low density lipoprotein (VLDL) cholesterol measurement 21 mg/dL 5-40 [facility] Carbon dioxide, total [Moles /volume] in Central venous bloodOrdered By: Jimbo Dash on 08-17-2024 CO2 [Moles/Vol] 22.9 mmol/L 21.0-32.0 [facility] Chloride assayOrdered By: Kings Dash on 08-17-2024 Chloride [Moles/Vol] 105 mmol/L 98-108 [facility] Comprehensive Metabolic Prof ilon 08-17-2024 Albumin [Mass/Vol] 4.2 g/dL Normal 3.5-5.0 [facility] Comment on above: Performed By: #### L [id number] #### [facility] [address] [place], [place], [id number] Albumin/Globulin [Mass ratio] 1.5 {ratio} Normal 0.9-2.4 [facility] Comment on above: Performed By: #### L 300.4310 #### [facility] [address] [place], [place], [id number] ALK PHOS 129 U/L High 35-104 [facility] Comment on above: Performed By: #### L [id number] #### [facility] [address] [place], [address] ALT [Catalytic activity/Vol] 22 U/L Normal <=34 [facility] Comment on above: Performed By: #### L 300.4310 #### [facility] [address] [place], [address] AST [Catalytic activity/Vol] 23 U/L Normal <=31 [facility] Comment on above: Performed By: #### L 300.4310 #### [facility] [address] [place], [address] Bilirubin [Mass/Vol] 0.52 mg/dL Normal 0.00-1.30 [facility] Comment on above: Performed By: #### L 300.4310 #### [facility] [address] [place], [address] BUN/CRE 23.4 RATIO High 10-20 [facility] Comment on above: Performed By: #### L 300.4310 #### [facility] [address] [place], [address] Calcium [Mass/Vol] 9.6 mg/dL Normal 7.6-11.0 [facility] Comment on above: Performed By: #### L 300.4310 #### [facility] [address] [place], [address] Chloride [Moles/Vol] 105 mmol/L Normal 98-108 [facility] Comment on above: Performed By: #### L 300.4310 #### [facility] [address] [place], [address] CO2 [Moles/Vol] 22.9 mmol/L Normal 21.0-32.0 [facility] Comment on above: Performed By: #### L 300.4310 #### [facility] [address] [place], [address] Creatinine [Mass/Vol] 0.92 mg/dL Normal 0.70-1.20 [facility] Comment on above: Performed By: #### L 300.4310 #### [facility] [address] [place], [address] GAP 11 Normal 5-15 [facility] Comment on above: Performed By: #### L 300.4310 #### [facility] [address] [place], [address] GFR/1.73 sq M.predicted among non-blacks MDRD (S/P/Bld) [Vol rate/Area] 72 mL/min/{1.73_m2} Normal >60 [facility] Comment on above: Result Comment: mL/m in/1.73m2 CKD-EPI Creatinine Equation (2020) Performed By: #### L 300.4310 #### [facility] [address] [place], [address] Globulin (S) [Mass/Vol] 2.7 g/dL Normal 2.2-4.2 [facility] Comment on above: Performed By: #### L 300.4310 #### [facility] [address] [place], [address] Glucose [Mass/Vol] 81 mg/dL Normal 70-99 [facility] Comment on above: Performed By: #### L 300.4310 #### [facility] [address] [place], [address] Potassium [Moles/Vol] 4.1 mmol/L Normal 3.3-5.1 [facility] Comment on above: Performed By: #### L 300.4310 #### [facility] [address] [place], [address] Sodium [Moles/Vol] 138 mmol/L Normal 133-145 [facility] Comment on above: Performed By: #### L 300.4310 #### [facility] [address] [place], [place], [id number] T PROT 6.9 g/dL Normal 5.9-8.4 [facility] Comment on above: Performed By: #### L 300.4310 #### [facility] [address] [place], [place], [id number] Urea nitrogen [Mass/Vol] 21 mg/dL High 4-19 [facility] Comment on above: Performed By: #### L 300.4310 #### [facility] [address] [place], [place], [id number] Glomerular filtration rate ( GFR) estimation/1.73 sq m using serum, plasma, or whole bOrdered By: Jimbo Dash on 08-17-2024 GFR/1.73 sq M.predicted among non-blacks MDRD (S/P/Bld) [Vol rate/Area] 72 mL/min/{1.73_m2} >60 [facility] Comment on above: mL/min/1.73m2 CKD-EP I Creatinine Equation (2020) LDL calc ser/plasOrdered By: iJmbo Dash on 08-17-2024 Cholesterol in LDL [Mass/Vol] 113 mg/dL [facility] Comment on above: Ezrwykpfoi=832-465 m g/dL & Higher Dqwt=288 mg/dL or greater Laboratory - Chemistry and C hemistry - challengeOrdered By: Jimbo Dash on 08-17-2024 AST [Catalytic activity/Vol] 23 U/L <32 [facility] Lipid Profileon 08-17-2024 CHOL:HDL 3.04 Normal [facility] Comment on above: Performed By: #### L 300.4310 #### [facility] [address] [place], [place], [id number] Cholesterol [Mass/Vol] 200 mg/dL Normal <=200 [facility] Comment on above: Result Comment: Chol esterol level, Desirable <200 mg/dL Borderline high cholesterol 200-239 mg/dL High cholesterol >=240 mg/dL Recommendations of the NCEP Adult Treatment Panel for the following risk-cutoff thresholds for the [place] population. Performed By: #### L 300.4310 #### [facility] [address] [place], [address] Cholesterol in HDL [Mass/Vol] 66 mg/dL Normal [facility] Comment on above: Result Comment: Nivia onal Cholesterol Education Program (NCEP) guidelines: <40 mg/dL: Low HDL-cholesterol (major risk factor for CHD) >= 60 mg/dL: High HDL-cholesterol (negative risk factor for CHD) HDL-cholesterol is affected by a number of factors, e.g. smoking, exercise, hormones, sex and age. Performed By: #### L 300.4310 #### [facility] [address] [place], [address] Cholesterol in LDL [Mass/Vol] 113 mg/dL Normal [facility] Comment on above: Result Comment: Bord mhzaaz=244-460 mg/dL Higher Smqy=769 mg/dL or greater Performed By: #### L 300.4310 #### [facility] [address] [place], [address] Cholesterol in VLDL [Mass/Vol] 21 mg/dL Normal 5-40 [facility] Comment on above: Performed By: #### L 300.4310 #### [facility] [address] [place], [address] Triglyceride [Mass/Vol] 106 mg/dL Normal [facility] Comment on above: Result Comment: The drugs N-Acetylcysteine and Metamizole may falsely depress this assay. Normal range: <150 mg/dL Borderline High: 150-199 mg/dL High: 200-499 mg/dL Very High: >500 mg/dL Performed By: #### L 300.4310 #### [facility] [address] [place], [address] MR/BMSRed 08-17-2024 MR/BMS.BVS [facility] [address] [place], [place] [address] OFFICE VISIT Date of Service: 08/17/24 MR#: [id number] Acct: [id number] Name: KAROLINA AHN Rep #: [id number] : 1965 Provider: Dr. Reji Goldberg MD Age/Sex: 59/F Location: [facility] Status: Signed Intake Vital Signs 11/28/23 15:55 06/11/24 14:19 08/17/24 13:06 Height 5 ft 4 in 5 ft 5 in 5 ft 5 in Weight: 144 lb BMI 23.9 BP 104/62 Blood Pressure Location Rt brachial Position Sitting Respiration 14 Pulse 92 Pulse Source Monitor Temp 98.4 F Temp Source Temporal Pulse Oximetry (%) 97 Oxygen Delivery Method room air Intake Visit Reasons: 6 M FU Is Analyst Required: No Accompanied by: Is patient in pain?: No Allergies hydrocodone (From Vicodin) Allergy (Verified 08/17/24 13:07) Nausea/Vom/Diarrhea Medications ???Medication ???Instructions ???Recorded ???Confirmed ???Type sertraline 100 mg tablet 50 mg PO BID anxiety 03/30/1407/29 History Cholecalciferol (Vitamin D3) 5,000 unit PO DAILY supplement 01/1608/17/24 History [Vitamin D3] cyanocobalamin (vitamin B-12) 3,000 mcg PO DAILY supplement 01/1608/17/24 History 5,000 mcg disintegrating tablet omeprazole 20 mg tablet,delayed 20 mg PO QHS reflux 03/07/2008/17 History release pitavastatin calcium 2 mg tablet 4 mg PO QPM cholesterol 02/08/22 0 08/17/24 History (Livalo) cetirizine 10 mg capsule (Zyrtec) 10 mg PO DAILY allergies 04/12/22 08/17/24 History dicyclomine 20 mg tablet 20 mg PO BID IBS 10/02/22 08/17/24 History alendronate 70 mg tablet 70 mg PO QWEEK bones 11/28/2307/29 History tizanidine 2 mg tablet 2 mg PO QHS PRN muscle spasticity 12/10/23 08/17/24 Rx #14 tabs apixaban 5 mg tablet (Eliquis) 5 mg PO BID #60 tabs 02/28/2407/29 Rx PFSH Medical History GERD (gastroesophageal reflux disease) Loss of hearing Wears glasses Arthritis Bladder disease DVT (deep venous thrombosis) Restless legs Difficulty swallowing Gastric reflux Non-smoker Leg cramps History of pain when walking History of echocardiogram History of stress test Anxiety Anemia Surgical History Hx of bladder repair surgery Hx of cystoscopy Hx of shoulder surgery Hx of colonoscopy S/P rotator cuff repair S/P bunionectomy S/p bilateral carpal tunnel release S/P cholecystectomy S/P hysterectomy Family History Mother Colon cancer Cancer ovary Diabetes Father Hypertension Social History household members: spouse housing: house current occupational status: employed Smoking Status: Never smoker alcohol intake: never HPI HPI HPI: KAROLINA AHN, is a 59 F who presents to the office today for follow up of prior iliac vein stenting, subsequent thrombectomy. She has been doing well on Eliquis with no new leg pain/edema. She does have some mild heaviness at the end of the day. Denies bleeding concerns. ROS General General: No weight change, appetite, fatigue, colon cancer, breast cancer or weakness HEENT HEENT: No difficulty swallowing, eye injury, eye surgery, swollen glands or hoarseness Endo Endocrine: No thyroid disease, diabetes mellitus, thyroid cancer, Hair loss, heat intolerance or cold intolerance Skin Skin: No rash or changing moles Musc Musculoskeletal: No back problems, arthritis, rheumatoid arthritis, gout or joint pain Cardio Cardiovascular: No murmur, pacemaker, heart disease, atrial fibrillation, high blood pressure, heart attack, heart stent, palpitations, shortness of breath with exertion or chest pain Psych Psychiatric: No depression, anxiety or hearing voices Resp Respiratory: No shortness of breath, No sleep apnea, No cough, No COPD, No asthma, No emphysema and No wheezing Gastro Gastrointestinal: No abdominal pain, No nausea or vomiting, No diarrhea, No constipation, No blood in stool, No acid reflux, No hemorrhoids, No ulcers, No gallbladder problem and No black,tarry stools Fito Hematologic: Yes blood thinners, No blood disorders, No bleeding, No anemia and Yes blood clots Neuro Neurologic: No system reviewed and no additional complaints, except as documented, No as per HPI, No abnormal gait, No abnormal hearing, No abnormal movements, No abnormal speech, No behavioral changes, No burning sensations, No confusion, No convulsions, No disequilibrium, No dizziness, No localized weakness, No frequent falls, No headache(s), No lack of coordination, No loss of vision, No memory loss, No numbness, No other visual distu (more content not included)... Normal [facility] Potassium measurement (mass/ volume)Ordered By: Jimbo Dash on 08-17-2024 Potassium (Unsp spec) [Mass/Vol] 4.1 mmol/L 3.3-5.1 [facility] Screening total cholesterol/ high density lipoprotein (HDL) cholesterol ratioOrdered By: Jimbo Dash on 08-17-2024 Cholesterol.total/Choles terol in HDL [Mass ratio] 3.04 {ratio} [facility] Serum creatinine measurement (mass/volume)Ordered By: Jimbo Dash on 08-17-2024 Creatinine [Mass/Vol] 0.92 mg/dL 0.70-1.20 [facility] Serum globulin measurementOr dered By: Jimbo Dash on 08-17-2024 Globulin (S) [Mass/Vol] 2.7 g/dL 2.2-4.2 [facility] Serum glucose measurement (m ass/volume)Ordered By: Jimbo Dash on 08-17-2024 Glucose [Mass/Vol] 81 mg/dL 70-99 [facility] Serum or plasma alanine hernández otransferase (ALT) measurementOrdered By: Jimbo Dash on 08-17-2024 ALT [Catalytic activity/Vol] 22 U/L <35 [facility] Serum or plasma albumin cooper urement (mass/volume)Ordered By: Jimbo Dash on 08-17-2024 Albumin [Mass/Vol] 4.2 g/dL 3.5-5.0 [facility] Serum or plasma albumin/glob ulin mass ratioOrdered By: Jimbo Dash on 08-17-2024 Albumin/Globulin [Mass ratio] 1.5 {ratio} 0.9-2.4 [facility] Serum or plasma alkaline willy sphatase measurementOrdered By: Jimbo Dash on 08-17-2024 ALP [Catalytic activity/Vol] 129 U/L High 35-104 [facility] Serum or plasma calcium cooper urement (mass/volume)Ordered By: Jimbo Dash on 08-17-2024 Calcium [Mass/Vol] 9.6 mg/dL 7.6-11.0 [facility] Serum or plasma cholesterol in HDL measurement (mass/volume)Ordered By: Jimbo Dash on 08-17-2024 Cholesterol in HDL [Mass/Vol] 66 mg/dL >40 [facility] Comment on above: National Cholesterol Education Program (NCEP) guidelines:<40 mg/dL: Low HDL-cholesterol (major risk factor for CHD)>= 60 mg/dL: High HDL-cholesterol (negative risk factor for CHD)HDL-cholesterol is affected by a number of factors, e.g. smoking, exercise, hormones, sex and age. Serum or plasma cholesterol measurement (mass/volume)Ordered By: Jimbo Dash on 08-17-2024 Cholesterol [Mass/Vol] 200 mg/dL <201 [facility] Comment on above: Cholesterol level, D esirable <200 mg/dLBorderline high cholesterol 200-239 mg/dLHigh cholesterol >=240 mg/dLRecommendations of the NCEP Adult Treatment Panel for the following risk-cutoff thresholds for the [place] population. Serum or plasma urea nitroge n measurement (mass/volume)Ordered By: Jimbo Dash on 08-17-2024 Urea nitrogen [Mass/Vol] 21 mg/dL High 4-19 [facility] Sodium levelOrdered By: Jimbo Dash on 08-17-2024 Sodium [Moles/Vol] 138 mmol/L 133-145 [facility] Total proteinOrdered By: Laurie Dash on 08-17-2024 Protein [Mass/Vol] 6.9 g/dL 5.9-8.4 [facility] Triglycerides measurementOrd ered By: Jimbo Dash on 08-17-2024 Triglyceride [Mass/Vol] 106 mg/dL <199 [facility] Comment on above: The drugs N-Acetylcy steine and Metamizole may falsely depress this assay. Normal range: <150 mg/dLBorderline High: 150-199 mg/dLHigh: 200-499 mg/dLVery High: >500 mg/dL Abdominal aortic duplex scan reportOrdered By: Reji Goldberg on 07-20-2024 US.doppler Thoracic and abdominal aorta [facility] [address] [place] [address] Abd Aortic/IVC Duplex scan 07/14/24 0910 MR#: [id number] Acct: [id number] Name: KAROLINA AHN Rep #:[id number] : 1965 59 From: Reji Bryant Attending Dr: KINGS Sidhu Stat us: REG CLI Ordering Dr: Reji Goldberg MD Date: Location: [facility] Sex: F C Admitted: Reason For Study Reason For Study: HX Bilateral Iliac Vein Stents Inferior Vena Cava Proximal inferior vena cava measures 0.97 x 1.09 cm. in the cross-sectional axis. Proximal inferior vena cava measures 1.17 cm. in the longitudinal axis. Mid inferior vena cava measures 1.43 x 1.78 cm. in the cross-sectional axis. Mid inferior vena cava measures 1.03 cm. in the longitudinal axis. Distal inferior vena cava measures 1.33 x 1.66 cm. in the cross-sectional axis. Distal inferior vena cava measures 0.93 cm. in the longitudinal axis. The inferior vena cava has spontaneous, phasic flow throughout. Left Common Iliac Vein Left common iliac vein measures 1.26 x 1.25 cm. in the cross-sectional axis. Left common iliac vein measures 1.36 cm. in the longitudinal axis. The left common iliac vein has spontaneous, phasic flow throughout. Stent Noted. Right Common Iliac Vein Right common iliac vein measures 1.09 x 1.15 cm. in the cross-sectional axis. Right common iliac vein measures 1.15 cm. in the longitudinal axis. The right common iliac vein has spontaneous, phasic flow throughout. Stent Noted. VL/Abd Aortic/IVC Duplex scan Interpretation Summary Inferior vena cava and bilateral iliac vein stents patent with normal venous flow pattern. __ Ordering Physician: Reji Goldberg Referring Physician: Jimbo Dash Performed By: River Leblanc RVT 07/20/24 1238 Date _ Reji Goldberg MD CC: KINGS Sidhu; Dr. Reji Goldberg MD; Dr. Jimbo Dash MD ~ Date Dictated: 07/14/24909 Date Transcribed: 07/20/241237 Yarn Dumper: Signed [facility] Work Phone: Abd Aortic/IVC Duplex scanon 07-14-2024 Abd Aortic/IVC Duplex scan [facility] [address] [place] [address] Abd Aortic/IVC Duplex scan 07/14/24909 MR#: [id number] Acct: [id number] Name: KAROLINA AHN Rep #: [id number] : 1965 59 From: Reji Goldberg MD Attending Dr: KINGS Sidhu Status: REG CLI Ordering Dr: Reji Goldberg MD Date: 07/14/24 Location: [facility] Sex: F C Admitted: Reason For Study Reason For Study: HX Bilateral Iliac Vein Stents Inferior Vena Cava Proximal inferior vena cava measures 0.97 x 1.09 cm. in the cross-sectional axis. Proximal inferior vena cava measures 1.17 cm. in the longitudinal axis. Mid inferior vena cava measures 1.43 x 1.78 cm. in the cross- sectional axis. Mid inferior vena cava measures 1.03 cm. in the longitudinal axis. Distal inferior vena cava measures 1.33 x 1.66 cm. in the cross-sectional axis. Distal inferior vena cava measures 0.93 cm. in the longitudinal axis. The inferior vena cava has spontaneous, phasic flow throughout. Left Common Iliac Vein Left common iliac vein measures 1.26 x 1.25 cm. in the cross-sectional axis. Left common iliac vein measures 1.36 cm. in the longitudinal axis. The left common iliac vein has spontaneous, phasic flow throughout. Stent Noted. Right Common Iliac Vein Right common iliac vein measures 1.09 x 1.15 cm. in the cross-sectional axis. Right common iliac vein measures 1.15 cm. in the longitudinal axis. The right common iliac vein has spontaneous, phasic flow throughout. Stent Noted. VL/Abd Aortic/IVC Duplex scan Interpretation Summary Inferior vena cava and bilateral iliac vein stents patent with normal venous flow pattern. __ Ordering Physician: Reji Goldberg Referring Physician: Jimbo Dash Performed By: River Leblanc, Gerald 07/20/24 1238 Date Reji Goldberg MD CC: KINGS Sidhu; Dr. Reji Goldberg MD; Dr. Jimbo Dash MD Date Dictated: 07/14/24 0910 Date Transcribed: 07/20/24 1238 Yarn Dumper: Signed [facility] Urine Cultureon 07-11-2024 [facility] [place]: 07/08/24 Order Info: 630-4 - CUUR Strep anginosus [place] Count 80,000-100,000 Strep anginosus: REACTION Ampicillin Islt MAX <=0.25 Penicillin G Islt MAX <=0.06 S Cefotaxime Islt MAX <=0.12 S cefTRIAXone Islt MAX <=0.12 S Clindamycin Islt MAX <=0.25 S Erythromycin Islt MAX 4 R Linezolid Islt MAX <=2 S Vancomycin Islt MAX 0.5 S [facility] Comment on above: Performed By: #### L 303.8883 #### [facility] [place], [address] Bilirubin Test strip Ql (U)O rdered By: Jimbo Dash on 07-08-2024 Bilirubin Ql (U) Negative Negative [facility] Epithelial cells.squamous LM Ql (Urine sed)Ordered By: Jimbo Dash on 07-08-2024 Epithelial cells.squamous LM.HPF (Urine sed) [#/Area] 0 /[HPF] 5-10 [facility] Glucose Ql (U)Ordered By: Kings Dash on 07-08-2024 Urine Glucose (UA) Normal mg/dl Normal [facility] Ketones Test strip Ql (U)Ord ered By: Jimbo Dash on 07-08-2024 Ketones Ql (U) Negative Negative [facility] Microscopic analysis of urin e for red blood cells (RBC)Ordered By: Jimbo Dash on 07-08-2024 Microscopic analysis of urine for red blood cells (RBC) 0-5 SEEN /hpf 0-5 [facility] Urine RBC 0-5 SEEN /hpf 0-5 [facility] Mucus LM Ql (Urine sed)Order ed By: Jimbo Dash on 07-08-2024 Mucus Ql (Urine sed) 0 SEEN /hpf [facility] Nitrite Test strip Ql (U)Ord ered By: Jimbo Dash on 07-08-2024 Nitrite Ql (U) Negative Negative [facility] Protein Test strip Ql (U)Ord ered By: Jimbo Dash on 07-08-2024 Protein Ql (U) 30 mg/dl High Negative [facility] Squamous epithelial cells de tection in urine sediment by light microscopyOrdered By: Jimbo Dash on 07-08-2024 Epithelial cells.squamous LM Ql (Urine sed) 0-5 SEEN /hpf 5-10 [facility] Transitional cells LM Ql (Ur ine sed)Ordered By: Jimbo Dash on 07-08-2024 Urine Transitional Epithelial Cells 0-5 SEEN /hpf 0-5 [facility] Transitional cells detection in urine sediment by light microscopyOrdered By: Jimbo Dash on 07-08-2024 Transitional cells LM Ql (Urine sed) 0-5 SEEN /hpf 0-5 [facility] Urinalysis, Completeon 07-08 EPI,SQUAMOUS 0-5 SEEN Normal 5-10 [facility] Comment on above: Order Comment: Order Date: 07/08/24Order Info: [id number] - UACCOLLECTOR TO SPECIFY Performed By: #### L 300.4310 #### [facility] [address] [place], [address] EPI,TRANSITION 0-5 SEEN Normal 0-5 [facility] Comment on above: Order Comment: Order Date: 07/08/24Order Info: [id number] - UACCOLLECTOR TO SPECIFY Performed By: #### L 300.4310 #### [facility] [address] [place], [address] RBC 0-5 SEEN Normal 0-5 [facility] Comment on above: Order Comment: Order Date: 07/08/24Order Info: [id number] - UACCOLLECTOR TO SPECIFY Performed By: #### L 300.4310 #### [facility] [address] [place], [address] WBC 0-5 SEEN Normal 0-5 [facility] Comment on above: Order Comment: Order Date: 07/08/24Order Info: [id number] - UACCOLLECTOR TO SPECIFY Performed By: #### L 300.4310 #### [facility] [address] [place], [address] BACTERIA 0 SEEN Normal None Seen [facility] Comment on above: Order Comment: Order Date: 07/08/24Order Info: [id number] - UACCOLLECTOR TO SPECIFY Performed By: #### L 300.4310 #### [facility] [address] [place], [address] Mucus Ql (Urine sed) 0 SEEN Normal [facility] Comment on above: Order Comment: Order Date: 07/08/24Order Info: [id number] - UACCOLLECTOR TO SPECIFY Performed By: #### L 300.4310 #### [facility] [address] [place], [address] Urine blood detectionOrdered By: Jimbo Dash on 07-08-2024 Urine Occult Blood 150 /ul High Negative [facility] Urine clarityOrdered By: Laurie Dash on 07-08-2024 Clarity (U) Sl. Cloudy Clear [facility] Urine color determinationOrd ered By: Jimbo Dash on 07-08-2024 Color (U) Yellow Yellow [facility] Urine cultureOrdered By: Laurie Dash on 07-08-2024 Bacteria identified Cx Nom (U) Strep anginosus Abnormal [facility] Urine glucose detectionOrder ed By: Jimbo Dash on 07-08-2024 Glucose Ql (U) Normal mg/dl Normal [facility] Urine leukocyte esterase det ection by dipstickOrdered By: Jimbo Dash on 07-08-2024 Leukocyte esterase Test strip Ql (U) 500 /ul High Negative [facility] Urine pHOrdered By: Jimbo monterroso on 07-08-2024 pH (U) 6.0 [pH] 5.0 - 8.0 [facility] Urine sediment bacteria coun t by microscopy (number/high power field)Ordered By: Jimbo Dash on 07-08-2024 Bacteria LM.HPF (Urine sed) [#/Area] 0 /[HPF] None Seen [facility] Urine specific gravity measu rementOrdered By: Jimbo Dash on 07-08-2024 Specific gravity (U) [Rel density] 1.025 1.002-1.030 [facility] Urine urobilinogen measureme ntOrdered By: Jimbo Dash on 07-08-2024 Urobilinogen Ql (U) Normal mg/dl Normal [facility] Urobilinogen Ql (U)Ordered B y: Jimbo Dash on 07-08-2024 Urine Urobilinogen Normal mg/dl Normal [facility] White blood cell countOrdere d By: Jimbo Dash on 07-08-2024 Urine WBC 0-5 SEEN /hpf 0-5 [facility] White blood cell count 0-5 SEEN /hpf 0-5 [facility] 12 Lead EKGon 06-11-2024 12 Lead EKG [facility] Cardiovascular Services [address] [place] [address] 12 Lead EKG 06/11/24 1430 MR#: [id number] Acct: [id number] Name: KAROLINA AHN Rep #: [id number] : 1965 59 From: Sumeet Hamilton MD Attending Dr: Status: DEP ER Ordering Dr: Rupert Mensah DO Date: 06/11/24 Location: ED Sex: F C Admitted: Test Reason : CP Blood Pressure : */* mmHG Vent. Rate : 68 BPM Atrial Rate : 68 BPM P-R Int : 148 ms QRS Dur : 76 ms QT Int : 396 ms P-R-T Axes : 48 10 57 degrees QTcB Int : 421 ms Normal sinus rhythm Normal ECG Confirmed by JENNI MCELROY, MIRNA ([id number]), purchase request editor RAOUL MCDOWELL ([id number]) on 06/15/2024 8:07:34 AM Referred By: Rupert Mensah Confirmed By: MIRNA HAMILTON MD 06/15/24 0807 Date Sumeet Hamilton MD CC: Dr. Jimbo Dash MD; Dr. Rupert Mensah DO Signed Normal [facility] Absolute neutrophil countOrd ered By: Rupert Mensah on 06-11-2024 Neutrophils (Bld) [#/Vol] 3.8 10*3/uL 2.0-7.7 [facility] Basic Metabolic Profile (BMP )on 06-11-2024 BUN/CRE 18.9 RATIO Normal 10-20 [facility] Comment on above: Order Comment: 'TROP ' Serial specimen #1, #2 or #3: 1 Performed By: #### L 012.6820 #### [facility] [address] [place], [address] CA,Total 8.9 mg/dL Normal 8.5-10.1 [facility] Comment on above: Order Comment: 'TROP ' Serial specimen #1, #2 or #3: 1 Performed By: #### L 224.7255 #### [facility] [address] [place], [address] Chloride [Moles/Vol] 111 mmol/L High 98-107 [facility] Comment on above: Order Comment: 'TROP ' Serial specimen #1, #2 or #3: 1 Performed By: #### L 300.4310 #### [facility] [address] [place], [address] CO2 [Moles/Vol] 23.0 mmol/L Normal 21.0-32.0 [facility] Comment on above: Order Comment: 'TROP ' Serial specimen #1, #2 or #3: 1 Performed By: #### L 300.4310 #### [facility] [address] [place], [address] Creatinine [Mass/Vol] 0.90 mg/dL Normal 0.55-1.02 [facility] Comment on above: Order Comment: 'TROP ' Serial specimen #1, #2 or #3: 1 Result Comment: The validity of the calculated GFR GFRAA in patients over 70 years has not been determined. Clinical correlation is essential. Performed By: #### L 300.4310 #### [facility] [address] [place], [address] ECRCL 60.56 ml/min Normal [facility] Comment on above: Order Comment: 'TROP ' Serial specimen #1, #2 or #3: 1 Performed By: #### L 300.4310 #### [facility] [address] [place], [address] EST GFR - AA 82 mL/min Normal >60 [facility] Comment on above: Order Comment: 'TROP ' Serial specimen #1, #2 or #3: 1 Result Comment: Afri can [place] GFR Calc Performed By: #### L 300.4310 #### [facility] [address] [place], [address] GAP 6 Normal 5-15 [facility] Comment on above: Order Comment: 'TROP ' Serial specimen #1, #2 or #3: 1 Performed By: #### L 300.4310 #### [facility] [address] [place], [address] GFR/1.73 sq M.predicted among non-blacks MDRD (S/P/Bld) [Vol rate/Area] 68 mL/min/{1.73_m2} Normal >60 [facility] Comment on above: Order Comment: 'TROP ' Serial specimen #1, #2 or #3: 1 Result Comment: Non- GFR Calc Performed By: #### L 300.4310 #### [facility] [address] [place], [address] Glucose [Mass/Vol] 140 mg/dL High 74-106 [facility] Comment on above: Order Comment: 'TROP ' Serial specimen #1, #2 or #3: 1 Result Comment: Fast ing Glucose result greater than or equal to 126 mg/dL suggests DIABETES MELLITUS per A.D.A. criteria. Performed By: #### L 300.4310 #### [facility] [address] [place], [address] Potassium [Moles/Vol] 4.0 mmol/L Normal 3.5-5.1 [facility] Comment on above: Order Comment: 'TROP ' Serial specimen #1, #2 or #3: 1 Performed By: #### L 300.4310 #### [facility] [address] [place], [address] Sodium [Moles/Vol] 140 mmol/L Normal 136-145 [facility] Comment on above: Order Comment: 'TROP ' Serial specimen #1, #2 or #3: 1 Performed By: #### L 300.4310 #### [facility] [address] [place], [address] Urea nitrogen [Mass/Vol] 17 mg/dL Normal 7-18 [facility] Comment on above: Order Comment: 'TROP ' Serial specimen #1, #2 or #3: 1 Performed By: #### L 300.4310 #### [facility] [address] [place], [address] Basophil percentageOrdered B y: Rupert Mensah on 06-11-2024 Basophils/100 WBC (Bld) 0.9 % 0-1 [facility] Blood urea nitrogen (BUN)/cr eatinine ratioOrdered By: Rupert Mensah on 06-11-2024 Urea nitrogen/Creatinine [Mass ratio] 18.9 mg/mg 10-20 [facility] CBC W/Diff, Automatedon 05-30-2024 Absolute Lymph 1.29 X10 3/uL Normal 0.83-4.51 [facility] Comment on above: Performed By: #### L 300.4310 #### [facility] [address] [place], [address] Absolute Neut 3.8 X10 3/uL Normal 2.0-7.7 [facility] Comment on above: Performed By: #### L 300.4310 #### [facility] [address] [place], [address] Basophils/100 WBC (Bld) 0.9 % Normal 0-1 [facility] Comment on above: Performed By: #### L 300.4310 #### [facility] [address] [place], [address] Eosinophils/100 WBC (Bld) 4.6 % Normal 0-5 [facility] Comment on above: Performed By: #### L 300.4310 #### [facility] [address] [place], [address] Erythrocyte distribution width (RBC) [Ratio] 13.1 % Normal 11.6-14.6 [facility] Comment on above: Performed By: #### L 300.4310 #### [facility] [address] [place], [address] Hematocrit (Bld) [Volume fraction] 40.8 % Normal 37-47 [facility] Comment on above: Performed By: #### L 300.4310 #### [facility] [address] [place], [address] Hemoglobin (Bld) [Mass/Vol] 13.2 g/dL Normal 12.0-15.0 [facility] Comment on above: Performed By: #### L 300.4310 #### [facility] [address] [place], [address] IG% 0.200 Normal 0.0-0.9 [facility] Comment on above: Result Comment: IG% - Immature Granulocytes (promyelocytes, myelocytes and metamyelocytes) > 1% indicates that a LEFT SHIFT is Present. Performed By: #### L 300.4310 #### [facility] [address] [place], [address] Lymphocytes/100 WBC (Bld) 22.2 % Normal 19-41 [facility] Comment on above: Performed By: #### L 300.4310 #### [facility] [address] [place], [address] MCH (RBC) [Entitic mass] 28.8 pg Normal 27.0-32.0 [facility] Comment on above: Performed By: #### L 300.4310 #### [facility] [address] [place], [address] MCHC (RBC) [Mass/Vol] 32.4 g/dL Normal 32-36 [facility] Comment on above: Performed By: #### L 300.4310 #### [facility] [address] [place], [address] MCV (RBC) [Entitic vol] 88.9 fL Normal 81-99 [facility] Comment on above: Performed By: #### L 300.4310 #### [facility] [address] [place], [address] Monocytes/100 WBC (Bld) 6.4 % Normal 0-10 [facility] Comment on above: Performed By: #### L 300.4310 #### [facility] [address] [place], [address] Neutrophils/100 WBC (Bld) 65.7 % Normal 47-70 [facility] Comment on above: Performed By: #### L 300.4310 #### [facility] [address] [place], [address] Nucleated RBC (Bld) [#/Vol] 0 10*3/uL Normal 0-5 [facility] Comment on above: Performed By: #### L 300.4310 #### [facility] [address] [place], [address] Platelet mean volume (Bld) [Entitic vol] 10.0 fL Normal 6.2-12.0 [facility] Comment on above: Performed By: #### L 300.4310 #### [facility] [address] [place], [address] Platelets (Bld) [#/Vol] 270 10*3/uL Normal 150-450 [facility] Comment on above: Performed By: #### L 300.4310 #### [facility] [address] [place], [address] RBC (Bld) [#/Vol] 4.59 10*6/uL Normal 4.2-5.4 [facility] Comment on above: Performed By: #### L 300.4310 #### [facility] [address] [place], [address] RDW SD 42.4 fl Normal 35.1-43.9 [facility] Comment on above: Performed By: #### L 300.4310 #### [facility] [address] [place], [place], [address] WBC (Bld) [#/Vol] 5.8 10*3/uL Normal 4.4-11.0 [facility] Comment on above: Performed By: #### L 300.4310 #### [facility] [address] [place], [address] Carbon dioxide measurementOr dered By: Rupert Mensah on 06-11-2024 CO2 [Moles/Vol] 23.0 mmol/L 21.0-32.0 [facility] Chest PA and Lateralon 06-11 Chest PA and Lateral [facility] Imaging Services [address] [place] [address] Chest PA and Lateral MR#: [id number] Acct: [id number] Name: KAROLINA AHN Rep #: [id number] : 1965 F 59 From: Guanako Bryant PCP: Dr. Jimbo Dash MD Status: REG ER Study: Chest PA and Lateral Date of Exam: 06/11/24 Exam# [id number] Ordering Dr: Rupert Mensah DO PROCEDURE: CHEST PA AND LATERAL REASON FOR EXAM: Pain. TECHNIQUE: Frontal and lateral views of the chest. COMPARISON: None. FINDINGS: The heart size is normal. The mediastinal contour is unremarkable. No evidence of pulmonary edema. Mild biapical pleural-parenchymal scarring is noted. The lungs are clear. Mild thoracic spine degenerative changes are noted. No acute osseous process is seen. RAD/Chest PA and Lateral IMPRESSION: No evidence of acute cardiopulmonary disease. Reading Location: [address] CC: Dr. Jimbo Dash MD; Dr. Rupert Mensah DO Yarn Dumper: Signed Normal [facility] Chloride measurementOrdered By: Rupert Mensah on 06-11-2024 Chloride [Moles/Vol] 111 mmol/L High 98-107 [facility] D-Dimer Quantitative (DVT/PE )on 06-11-2024 D-DIMER QUANT 0.37 FEU/ug/m Normal 0.27-0.49 [facility] Comment on above: Result Comment: NORM AL D-Dimer level (<0.50) indicates no DVT or PE. Performed By: #### L [id number] #### [facility] [address] [place], [address] D-dimer measurement for deep venous thrombosisOrdered By: Rupert Mensah on 06-11-2024 D-Dimer Quantitative (PE/DVT) 0.37 FEU/ug/m 0.27-0.49 [facility] Comment on above: NORMAL D-Dimer level (<0.50) indicates no DVT or PE. Emergency Department Summary on 06-11-2024 Emergency Department Summary [facility] Medical Records Department [address] [place] [address] Emergency Department Summary 06/11/24 MR#: [id number] Acct: [id number] Name: KAROLINA AHN Rep #: [id number] : 1965 59 From: Rupert Yeung PCP: Dr. Jimbo Dash MD Status:REG ER Location: ED HPI History of Present Illness Chief Complaint: Chest Pain Informant: patient Narrative Narrative: Sent in by PCP for a history of waxing waning chest pain left arm pain. Last 2 days right calf pain. History of recurrent DVTs on Eliquis. She has been compliant with her Eliquis. Her last DVT left leg November of last year with thrombectomy. At that time she was only on Plavix as they trialed her off anticoagulants. She is followed by Dr. Goldberg. She has had peripheral artery disease with stenting in the past. No coronary disease history. Father [place] at 65, history of hyperlipidemia. Denies hypertension or diabetes. Denies tobacco. Denies recent travel or surgeries no history of PE or DVT. She reports her previous clots were unprovoked. Prior Similar Symptoms: No and With Prior [place] CVD Risk Factors: Positive for Hypercholesterolemi a; Negative for Hypertension, Diabetes, Family History 1' PE Risk Factors: Negative for Recent Travel/Surgery, Recent Immobilization or Prior DVT or PE [facility] Medical History GERD (gastroesophageal reflux disease) Loss of hearing Wears glasses Arthritis Bladder disease DVT (deep venous thrombosis) Restless legs Difficulty swallowing Gastric reflux Non-smoker Leg cramps History of pain when walking History of echocardiogram History of stress test Anxiety Anemia Home Medications ???Medication ???Instructions ???Recorded ???Last Taken ???Type sertraline 100 mg tablet 50 mg PO BID anxiety 03/30/1402/27 History Cholecalciferol (Vitamin D3) 5,000 unit PO DAILY supplement 01/1603/13/24 History [Vitamin D3] cyanocobalamin (vitamin B-12) 3,000 mcg PO DAILY supplement 01/1603/13/24 History 5,000 mcg disintegrating tablet omeprazole 20 mg tablet,delayed 20 mg PO QHS reflux 03/07/2003/12 History release pitavastatin calcium 2 mg tablet 4 mg PO QPM cholesterol 02/08/22 1 05/12/23 History (Livalo) cetirizine 10 mg capsule (Zyrtec) 10 mg PO DAILY allergies 04/12/22 03/13/24 History dicyclomine 20 mg tablet 20 mg PO BID IBS 10/02/22 03/13/24 History alendronate 70 mg tablet 70 mg PO QWEEK bones 11/28/23 Unkn own History tizanidine 2 mg tablet 2 mg PO QHS PRN muscle spasticity 12/10/23 Unknown Rx #14 tabs apixaban 5 mg tablet (Eliquis) 5 mg PO BID #60 tabs 02/28/2402/27 Rx Allergy/AdvReac Type Severity Reaction Status Date / Time hydrocodone (From Vicodin) Allergy Nausea/Vom/ Verified 06/11/24 14:19 Diarrhea Family History Mother Colon cancer Cancer ovary Diabetes Father Hypertension Surgical History Hx of bladder repair surgery Hx of cystoscopy Hx of shoulder surgery Hx of colonoscopy S/P rotator cuff repair S/P bunionectomy S/p bilateral carpal tunnel release S/P cholecystectomy S/P hysterectomy Social History household members: spouse housing: house current occupational status: employed Smoking Status: Never smoker alcohol intake: never ROS ROS ED Constitutional Constitutional ED: Denies chills, fever(s) or sweats ENT ENT ED: Denies sore throat Cardiovascular Cardiovascular: Reports chest pain; Denies leg edema, palpitations or racing heartbeat Respiratory/Chest Respiratory/Chest: Denies cough, dyspnea or dyspnea on exertion Gastrointestinal Gastrointestinal: Denies abdominal pain, diarrhea, nausea or vomiting Genitourinary Genitourinary ED: Denies dysuria, hematuria or urinary frequency Musculoskeletal Musculoskeletal: Reports extremity pain; Denies back pain or neck pain Integumentary Denies rash or wounds Neurologic Neurologic: Denies headache(s), paresthesias or weakness EXAM Physical Exam Const Vital Signs: 06/11/24 14:19 06/11/24 14:28 06/11/24 15:19 Temperature 97.2 F L Temperature Source Temporal Pulse Rate 78 73 Respiratory Rate 17 16 Respiratory Effort Normal Non-Labored Blood Pressure 131/79 H 118/82 H Blood Pressure Mean 96 94 Pulse Ox 97 95 Oxygen Delivery Method Room Air Positive well nourished and well developed General Appearance ED: well developed and NAD HEENT Reports moist mucous membranes normocephalic and atraumatic Eyes General Eye ED: Yes normal appearance of both eyes Neck full ROM Chest Wall Chest: Negative for tenderness Resp normal respi (more content not included)... Normal [facility] Eosinophil percentageOrdered By: Rupert Mensah on 06-11-2024 Eosinophils/100 WBC (Bld) 4.6 % 0-5 [facility] Erythrocyte distribution wid th ratioOrdered By: Rupert Mensah on 06-11-2024 Erythrocyte distribution width (RBC) [Ratio] 13.1 % 11.6-14.6 [facility] Erythrocyte distribution wid th standard deviationOrdered By: Rupert Mensah on 06-11-2024 Erythrocyte distribution width (RBC) [Entitic vol] 42.4 fL 35.1-43.9 [facility] Estimated glomerular filtrat ion rate (GFR) AmericanOrdered By: Rupert Mensah on 06-11-2024 Estimated GFR (MDRD) Amer 82 mL/min >60 [facility] Comment on above: GFR Calc Estimation of creatinine natalie aranceOrdered By: Rupert Mensah on 06-11-2024 Estimated Creatinine Clearance Calc 60.56 ml/min [facility] Glomerular filtration rate ( GFR) estimationOrdered By: Rupert Mensah on 06-11-2024 Estimated GFR (MDRD) Non-Af Amer 68 mL/min >60 [facility] Comment on above: Non- GFR Calc Glucose measurementOrdered B y: Rupert Mensah on 06-11-2024 Glucose [Mass/Vol] 140 mg/dL High 74-106 [facility] Comment on above: Fasting Glucose resu lt greater than or equal to 126 mg/dL suggests DIABETES MELLITUS per A.D.A. criteria. Hematocrit Auto (Bld) [Volum e fraction]Ordered By: Rupert Mensah on 06-11-2024 Hematocrit (Bld) [Volume fraction] 40.8 % 37-47 [facility] Hemoglobin measurementOrdere d By: Rupert Mensah on 06-11-2024 Hemoglobin (Bld) [Mass/Vol] 13.2 g/dL 12.0-15.0 [facility] Immature granulocytes/100 WB C Auto (Bld)Ordered By: Rupert Mensah on 06-11-2024 Immature granulocytes/100 WBC (Bld) 0.200 % 0.0-0.9 [facility] Comment on above: IG% - Immature Granu locytes (promyelocytes, myelocytes and metamyelocytes) > 1% indicates that a LEFT SHIFT is Present. International normalized rat io (INR) calculationOrdered By: Rupert Mensah on 06-11-2024 INR Coag (Bld) [Relative time] 1.0 {INR} [facility] L501.4020on 06-11-2024 TROPONIN-I HS 4 pg/mL Normal 3.0-54.0 [facility] Comment on above: Order Comment: 'TROP ' Serial specimen #1, #2 or #3: 1 Result Comment: Pletanisha se Note: New Test Units and Gender Specific Reference Ranges. For more information see Policy Stat Procedure [place] High Sensitivity Troponin (TNIH) and attachments. Performed By: #### L 280.0709 #### [facility] [address] [place], [address] Lymphocytes Auto (Unsp spec) [#/Vol]Ordered By: Rupert Mensah on 06-11-2024 Lymphocytes (Bld) [#/Vol] 1.29 10*3/uL 0.83-4.51 [facility] Lymphocytes/100 WBC Auto (Un sp spec)Ordered By: Rupert Mensah on 06-11-2024 Lymphocytes/100 WBC (Bld) 22.2 % 19-41 [facility] MCV (mean corpuscular volume ) determinationOrdered By: Rupert Mensah on 06-11-2024 MCV (RBC) [Entitic vol] 88.9 fL 81-99 [facility] Mean corpuscular hemoglobin (MCH) determinationOrdered By: Rupert Mensah on 06-11-2024 MCH (RBC) [Entitic mass] 28.8 pg 27.0-32.0 [facility] Mean corpuscular hemoglobin concentration (MCHC) determinationOrdered By: Rupert Mensah on 06-11-2024 MCHC (RBC) [Mass/Vol] 32.4 g/dL 32-36 [facility] Mean platelet volume determi nationOrdered By: Rupert Mensah on 06-11-2024 Platelet mean volume (Bld) [Entitic vol] 10.0 fL 6.2-12.0 [facility] Monocyte percentageOrdered B y: Rupert Mensah on 06-11-2024 Monocytes/100 WBC (Bld) 6.4 % 0-10 [facility] Neutrophil percentageOrdered By: Rupert Mensah on 06-11-2024 Neutrophils/100 WBC (Bld) 65.7 % 47-70 [facility] Nucleated red blood cell per centageOrdered By: Rupert Mensah on 06-11-2024 Nucleated RBC/100 WBC (Bld) [Ratio] 0 % 0-5 [facility] Partial Thromboplast Timeon 06-11-2024 aPTT Coag (Bld) [Time] 27.3 s Normal 24.1-36.2 [facility] Comment on above: Performed By: #### L 539.4939 #### [facility] [address] [place], [place], [address] Platelet countOrdered By: Jose Mensah on 06-11-2024 Platelets (Bld) [#/Vol] 270 10*3/uL 150-450 [facility] Potassium measurementOrdered By: Rupert Mensah on 06-11-2024 Potassium [Moles/Vol] 4.0 mmol/L 3.5-5.1 [facility] Prothrombin Time w/INRon INR Coag (PPP) [Relative time] 1.0 {INR} Normal [facility] Comment on above: Performed By: #### L 300.4310 #### [facility] [address] [place], [address] PT Coag (PPP) [Time] 13.1 s Normal 11.7-14.9 [facility] Comment on above: Performed By: #### L 300.4310 #### [facility] [address] [place], [address] Prothrombin timeOrdered By: Rupert Mensah on 06-11-2024 PT Coag (PPP) [Time] 13.1 s 11.7-14.9 [facility] RBC Auto (Bld) [#/Vol]Ordere d By: Rupert Mensah on 06-11-2024 RBC (Bld) [#/Vol] 4.59 10*6/uL 4.2-5.4 [facility] Serum anion gap measurementO rdered By: Rupert Mensah on 06-11-2024 Anion gap [Moles/Vol] 6 mmol/L 5-15 [facility] Serum or plasma calcium cooper urement (mass/volume)Ordered By: Rupert Mensah on 06-11-2024 Calcium [Mass/Vol] 8.9 mg/dL 8.5-10.1 [facility] Serum or plasma creatinine m easurement (mass/volume)Ordered By: Rupert Mensah on 06-11-2024 Creatinine [Mass/Vol] 0.90 mg/dL 0.55-1.02 [facility] Comment on above: The validity of the calculated GFR & GFRAA in patients over 70 years has not been determined. Clinical correlation is essential. Serum or plasma urea nitroge n measurement (mass/volume)Ordered By: Rupert Mensah on 06-11-2024 Urea nitrogen [Mass/Vol] 17 mg/dL 7-18 [facility] Sodium levelOrdered By: Rupert Mensah on 06-11-2024 Sodium [Moles/Vol] 140 mmol/L 136-145 [facility] Troponin IOrdered By: Rupert dhillon on 06-11-2024 Troponin I High Sensitivity 4 pg/mL 3.0-54.0 [facility] Comment on above: Please Note: [place] t Units and Gender Specific Reference Ranges. For more information see Policy Stat Procedure [place] High Sensitivity Troponin (TNIH) and attachments. Venous Duplex US, Unilateral on 06-11-2024 Venous Duplex US, Unilateral [facility] Cardiovascular Services [address] [place] [address] Venous Duplex US, Unilateral 06/11/24 1500 MR#: [id number] Acct: [id number] Name: KAROLINA AHN Rep #: [id number] : 1965 59 From: Reji Goldberg MD Attending Dr: Status: REG ER Ordering Dr: Rupert Mensah DO Date: 06/11/24 Location: ED Sex: F C Admitted: Reason For Study Reason For Study: RLE Pain RIGHT LEFT GSV is normal. CFV is compressible, spontaneous, phasic, competent, CFV is compressible, spontaneous, phasic, competent and demonstrates normal augmentation. and demonstrates normal augmentation. FV is compressible, spontaneous, phasic, competent and demonstrates normal augmentation. POP V is compressible, spontaneous and competent and demonstrates normal augmentation. The vessel measures approximately 2.14cm x 2.13cm and possible Rouleaux flow visualized. T/P Trunk is compressible. PTV is compressible. RT PerV is compressible. Procedure This is a venous duplex using B-mode, color flow and spectral Doppler. Exam performed portable in ED. The exam was diagnostic. A preliminary report was called and/or faxed to Vielka - ADY RN. VL/Venous Duplex US, Unilateral Interpretation Summary Deep veins of the right lower extremity are patent and compressible segmentally. There is no evidence of right lower extremity deep vein thrombosis. The right great saphenous vein appears patent and compressible segmentally. The popliteal vein measures approximately 2.14cm x 2.13cm and has Rouleaux (slowed) flow visualized. __ Ordering Physician: Rupert Mensah Referring Physician: Jimbo Dash Performed By: River Leblanc, T 06/11/241546 Date Reji Goldberg MD CC: Dr. Jimbo Dash MD; Dr. Rupert Mensah DO Date Dictated: 06/11/24 1500 Date Transcribed: 06/11/241546 Yarn Dumper: Signed Normal [facility] White blood cell (WBC) count Ordered By: Rupert Mensah on 06-11-2024 WBC (Bld) [#/Vol] 5.8 10*3/uL 4.4-11.0 [facility] aPTT Coag (PPP) [Time]Ordere d By: Rupert Mensah on 06-11-2024 aPTT Coag (Bld) [Time] 27.3 s 24.1-36.2 [facility] Urine Cultureon 05-24-2024 URC Order Date: 02/19/24 Order Info: 630-4 - CUUR Mixed Gram Positive Organisms [place] Count 1000-10,000 MIXC Mixed contaminants. Submit a new specimen if indicated. Normal [facility] Comment on above: Performed By: #### M 100.2200 ####[facility] [address] [place], [place], [address] Sacrum-Coccyx min 2 Viewson 05-21-2024 Sacrum-Coccyx min 2 Views [facility] Imaging Services [address] [place], [place] [address] Sacrum-Coccyx min 2 Views MR#: [id number] Acct: [id number] Name: KAROLINA AHN Rep #: [id number] : 1965 F 58 From: Jeff Reyes MD PCP: Dr. Jimbo Dash MD Status: REG CLI Study: Sacrum-Coccyx min 2 Views Date of Exam: Exam# [id number] Ordering Dr: Jimbo Dash MD [id number] STUDY: X-RAY - SACRUM/COCCYX REASON FOR EXAM: Female, 58 years old. FALL TECHNIQUE: 3 views of the sacrum and coccyx were obtained. COMPARISON: None. FINDINGS: Normal bilateral sacroiliac joints. Normal visualized sacral ala and fused sacral bodies. Normal sacrococcygeal junction with a normal angulation. Normal coccygeal segments. There are bilateral iliac artery stents. The presacral soft tissue structures are unremarkable. There is no demonstrated fracture or destructive osseous process. RAD/Sacrum-Coccyx min 2 Views IMPRESSION: Unremarkable x-rays of the sacrum and coccyx. No demonstrated fracture. Electronically Signed: Jeff Reyes MD at 9:06 EST Reading Location ID and State: [facility] / [place] , Service support , CC: Dr. Jimbo Dash MD Yarn Dumper: Signed Normal [facility] Urine cultureOrdered By: Laurie Dash on 05-21-2024 Bacteria identified Cx Nom (U) Positive Abnormal [facility] Abdomen/Pelvis W IV Cont ONL Yon 03-13-2024 Abdomen/Pelvis W IV Cont ONLY [facility] Imaging Services [address] [place] [address] Abdomen/Pelvis W IV Cont ONLY MR#: [id number] Acct: [id number] Name: KAROLINA AHN Rep #: [id number] : 1965 F 58 From: Cliff Bryant PCP: Dr. Jimbo Dash MD Status: REG ER Study: Abdomen/Pelvis W IV Cont ONLY Date of Exam: Exam# [id number] Ordering Dr: Mp Torrez MD -[id number] EXAM: CT ABDOMEN AND PELVIS WITH INTRAVENOUS CONTRAST CLINICAL INDICATION: LLQ abd pain TECHNIQUE: Helically acquired images were obtained of the abdomen and pelvis with intravenous contrast. This CT exam was performed using one or more of the following dose reduction techniques: automated exposure control, adjustment of the mA and/or kV according to patient size, and/or use of iterative reconstruction technique. CONTRAST: 100 cc of Isovue-370 IV. RADIATION DOSE: CTDIvol = 15.13 mGy, DLP = 731.85 mGy-cm COMPARISON: 08/16/2022. FINDINGS: LOWER THORAX: Unremarkable. Lung bases are clear. No cardiomegaly. No significant pericardial effusion. ABDOMEN: LIVER: There is diffuse low-attenuation of the liver. No change in the hemangioma in the right lobe of the liver. GALLBLADDER AND BILE DUCTS: Cholecystectomy. No intra- or extrahepatic biliary ductal dilation. PANCREAS: Unremarkable. No focal cystic or solid mass. SPLEEN: Unremarkable. Normal size without focal cystic or solid mass. ADRENALS: Unremarkable. No nodules. KIDNEYS AND URETERS: Unremarkable. Normal renal size and position. No hydronephrosis. STOMACH AND BOWEL: Relative large amount of fecal material throughout the colon. No stomach or bowel distention. No focal inflammatory change. PELVIS: APPENDIX: No evidence of acute appendicitis. BLADDER: Unremarkable. REPRODUCTIVE: Unremarkable as visualized. No mass. ABDOMEN and PELVIS: INTRAPERITONEAL SPACE: Unremarkable. No ascites or other fluid collection. No free air. BONES/JOINTS: Unremarkable. No suspicious lytic or blastic abnormality. SOFT TISSUES: Unremarkable. No discrete abdominal or pelvic wall hernia. VASCULATURE: Bilateral common iliac vein stents new since the previous examination. Abdominal aorta is non-dilated. LYMPH NODES: Unremarkable. No enlarged lymph nodes. CT/Abdomen/Pelvis W IV Cont ONLY IMPRESSION: 1. Constipation. 2. No change in the hemangioma in the right lobe of the liver. 3. Fatty liver. 4. Cholecystectomy. 5. Bilateral common iliac vein stents new since the previous examination. 6. No specific acute intra-abdominal abnormality Electronically Signed: Cliff Knight MD at 20:34 EST , CC: Dr. Mp Torrez MD; Dr. Jimbo Dash MD Yarn Dumper: Signed Normal [facility] CBC W/Diff, Automatedon 02-27 Absolute Lymph 1.64 X10 3/uL Normal 0.83-4.51 [facility] Comment on above: Performed By: #### L 9100.0100 #### [facility] [address] [place], [address] Absolute Neut 3.1 X10 3/uL Normal 2.0-7.7 [facility] Comment on above: Performed By: #### L 9100.0100 #### [facility] [address] [place], [address] Basophils/100 WBC (Bld) 0.5 % Normal 0-1 [facility] Comment on above: Performed By: #### L 9100.0100 #### [facility] [address] [place], [address] Eosinophils/100 WBC (Bld) 6.5 % High 0-5 [facility] Comment on above: Performed By: #### L 9100.0100 #### [facility] [address] [place], [address] Erythrocyte distribution width (RBC) [Ratio] 13.7 % Normal 11.6-14.6 [facility] Comment on above: Performed By: #### L 9100.0100 #### [facility] [address] [place], [address] Hematocrit (Bld) [Volume fraction] 40.7 % Normal 37-47 [facility] Comment on above: Performed By: #### L 9100.0100 #### [facility] [address] [place], [address] Hemoglobin (Bld) [Mass/Vol] 12.9 g/dL Normal 12.0-15.0 [facility] Comment on above: Performed By: #### L 9100.0100 #### [facility] [address] [place], [address] IG% 0.200 Normal 0.0-0.9 [facility] Comment on above: Result Comment: IG% - Immature Granulocytes (promyelocytes, myelocytes and metamyelocytes) > 1% indicates that a LEFT SHIFT is Present. Performed By: #### L 9100.0100 #### [facility] [address] [place], [address] Lymphocytes/100 WBC (Bld) 29.5 % Normal 19-41 [facility] Comment on above: Performed By: #### L 9100.0100 #### [facility] [address] [place], [address] MCH (RBC) [Entitic mass] 28.0 pg Normal 27.0-32.0 [facility] Comment on above: Performed By: #### L 9100.0100 #### [facility] [address] [place], [address] MCHC (RBC) [Mass/Vol] 31.7 g/dL Low 32-36 [facility] Comment on above: Performed By: #### L 9100.0100 #### [facility] [address] [place], [address] MCV (RBC) [Entitic vol] 88.3 fL Normal 81-99 [facility] Comment on above: Performed By: #### L 9100.0100 #### [facility] [address] [place], [address] Monocytes/100 WBC (Bld) 7.2 % Normal 0-10 [facility] Comment on above: Performed By: #### L 9099.0100 #### [facility] [address] [place], [address] Neutrophils/100 WBC (Bld) 56.1 % Normal 47-70 [facility] Comment on above: Performed By: #### L 9099.0100 #### [facility] [address] [place], [address] Nucleated RBC (Bld) [#/Vol] 0 10*3/uL Normal 0-5 [facility] Comment on above: Performed By: #### L 9099.0100 #### [facility] [address] [place], [address] Platelet mean volume (Bld) [Entitic vol] 9.9 fL Normal 6.2-12.0 [facility] Comment on above: Performed By: #### L 9099.0100 #### [facility] [address] [place], [address] Platelets (Bld) [#/Vol] 256 10*3/uL Normal 150-450 [facility] Comment on above: Performed By: #### L 9099.0100 #### [facility] [address] [place], [address] RBC (Bld) [#/Vol] 4.61 10*6/uL Normal 4.2-5.4 [facility] Comment on above: Performed By: #### L 9099.0100 #### [facility] [address] [place], [address] RDW SD 44.2 fl High 35.1-43.9 [facility] Comment on above: Performed By: #### L 9099.0100 #### [facility] [address] [place], [address] WBC (Bld) [#/Vol] 5.6 10*3/uL Normal 4.4-11.0 [facility] Comment on above: Performed By: #### L 9100.0100 #### [facility] [address] [place], [address] Comprehensive Metabolic Prof ilon 03-13-2024 Albumin [Mass/Vol] 3.6 g/dL Normal 3.2-5.0 [facility] Comment on above: Performed By: #### L 9100.0100 #### [facility] [address] [place], [address] Albumin/Globulin [Mass ratio] 1.0 {ratio} Normal 0.9-2.4 [facility] Comment on above: Performed By: #### L 9100.0100 #### [facility] [address] [place], [address] ALK P 131 U/L High 45-117 [facility] Comment on above: Performed By: #### L 9100.0100 #### [facility] [address] [place], [address] ALT [Catalytic activity/Vol] 31 U/L Normal 13-56 [facility] Comment on above: Performed By: #### L 9100.0100 #### [facility] [address] [place], [address] AST [Catalytic activity/Vol] 19 U/L Normal 15-37 [facility] Comment on above: Performed By: #### L 9100.0100 #### [facility] [address] [place], [address] Bilirubin [Mass/Vol] 0.30 mg/dL Normal 0.20-1.00 [facility] Comment on above: Result Comment: For patients on eltrombopag therapy, use of Dimension [place] TBIL is not recommended. Performed By: #### L 9100.0100 #### [facility] [address] [place], [address] BUN/CRE 22.1 RATIO High 10-20 [facility] Comment on above: Performed By: #### L 9099.0100 #### [facility] [address] [place], [address] CA,Total 9.2 mg/dL Normal 8.5-10.1 [facility] Comment on above: Performed By: #### L 9099.0100 #### [facility] [address] [place], [address] Chloride [Moles/Vol] 108 mmol/L High 98-107 [facility] Comment on above: Performed By: #### L 9099.0 #### [facility] [address] [place], [address] CO2 [Moles/Vol] 28.0 mmol/L Normal 21.0-32.0 [facility] Comment on above: Performed By: #### L 9099.0100 #### [facility] [address] [place], [address] Creatinine [Mass/Vol] 1.00 mg/dL Normal 0.55-1.02 [facility] Comment on above: Result Comment: The validity of the calculated GFR GFRAA in patients over 70 years has not been determined. Clinical correlation is essential. Performed By: #### L 9099.0100 #### [facility] [address] [place], [address] ECRCL 57.34 ml/min Normal [facility] Comment on above: Performed By: #### L 00.0100 #### [facility] [address] [place], [address] EST GFR - AA 73 mL/min Normal >60 [facility] Comment on above: Result Comment: Afri can [place] GFR Calc Performed By: #### L 9100.0100 #### [facility] [address] [place], [address] GAP 3 Low 5-15 [facility] Comment on above: Performed By: #### L 9099.0 #### [facility] [address] [place], [address] GFR/1.73 sq M.predicted among non-blacks MDRD (S/P/Bld) [Vol rate/Area] 61 mL/min/{1.73_m2} Normal >60 [facility] Comment on above: Result Comment: Non- GFR Calc Performed By: #### L 9099.0 #### [facility] [address] [place], [address] Globulin (S) [Mass/Vol] 3.6 g/dL Normal 2.2-4.2 [facility] Comment on above: Performed By: #### L 9099.0100 #### [facility] [address] [place], [address] Glucose [Mass/Vol] 108 mg/dL High 74-106 [facility] Comment on above: Result Comment: Fast ing Glucose result from 100 to 125 mg/dL suggests IMPAIRED HOMEOSTASIS per A.D.A. criteria. Performed By: #### L 00.0 #### [facility] [address] [place], [address] Potassium [Moles/Vol] 3.8 mmol/L Normal 3.5-5.1 [facility] Comment on above: Performed By: #### L 9099.0100 #### [facility] [address] [place], [address] Sodium [Moles/Vol] 139 mmol/L Normal 136-145 [facility] Comment on above: Performed By: #### L 9099.0100 #### [facility] [address] [place], [address] T PROT 7.2 g/dL Normal 6.4-8.2 [facility] Comment on above: Performed By: #### L 9100.0100 #### [facility] [address] [place], [address] Urea nitrogen [Mass/Vol] 22 mg/dL High 7-18 [facility] Comment on above: Performed By: #### L 9100.0100 #### [facility] [address] [place], [address] Emergency Department Summary on 03-13-2024 Emergency Department Summary [facility] Medical Records Department [address] [place] [address] Emergency Department Summary 03/13/24 MR#: [id number] Acct: [id number] Name: KAROLINA AHN Rep #: [id number] : 1965 58 From: Mp Torrez MD PCP: Dr. Jimbo Dash MD Status:DEP ER Location: ED HPI HPI - GI History of Present Illness Chief Complaint: Abd Pain Informant: patient Abdominal Pain/Flank Pain Onset: Yesterday Context: Gradual Onset Timing: Continuous Quality: Aching and Sharp Location: LLQ Current Severity: Moderate Maximum Severity: Moderate Worsened by: Nothing Relieved by: Nothing Nausea/Vomiting/Amarilis sis GI Symptom: Negative for Nausea or Vomiting Diarrhea/Melena/Hem atochezia GI Symptom: Negative for Diarrhea, Melena or Hematochezia Associated Symptoms Associated Symptoms: Negative for Dysuria, Frequency, Hematuria or Urgency Narrative Narrative: 58-year-old female prior history of cholecystectomy, hysterectomy and hernia repair. Prior DVT on Eliquis. Started left lower quadrant abdominal pain yesterday morning is progressively worsened. Denies vomiting or diarrhea. No dysuria. Had a bowel movement yesterday. No prior history of diverticulitis. Prior similar symptoms: No Recent Illness/Hospitaliza tion: No PFSH PFSH Medical History GERD (gastroesophageal reflux disease) Loss of hearing Wears glasses Arthritis Bladder disease DVT (deep venous thrombosis) Restless legs Difficulty swallowing Gastric reflux Non-smoker Leg cramps History of pain when walking History of echocardiogram History of stress test Anxiety Anemia Home Medications ???Medication ???Instructions ???Recorded ???Last Taken ???Type sertraline 100 mg tablet 50 mg PO BID anxiety 03/30/14 03/13/24 History Cholecalciferol (Vitamin D3) 5,000 unit PO DAILY supplement 03/07/20 03/13/24 History [Vitamin D3] cyanocobalamin (vitamin B-12) 3,000 mcg PO DAILY supplement 03/07/20 03/13/24 History 5,000 mcg disintegrating tablet omeprazole 20 mg tablet,delayed 20 mg PO QHS reflux 03/07/20 03/12/24 History release pitavastatin calcium 2 mg tablet 4 mg PO QPM cholesterol 02/08/22 03/12/24 History (Livalo) cetirizine 10 mg capsule (Zyrtec) 10 mg PO DAILY allergies 04/12/22 03/13/24 History dicyclomine 20 mg tablet 20 mg PO BID IBS 10/02/22 03/13/24 History alendronate 70 mg tablet 70 mg PO QWEEK bones 11/28/23 Unknown History oxycodone 5 mg tablet 5 mg PO Q8H PRN pain 3 days #9 tabs 12/03/23 Unknown Rx tizanidine 2 mg tablet 2 mg PO QHS PRN muscle spasticity 12/10/23 Unknown Rx #14 tabs apixaban 5 mg tablet (Eliquis) 5 mg PO BID #60 tabs 02/28/24 03/13/24 Rx Allergy/AdvReac Type Severity Reaction Status Date / Time hydrocodone (From Vicodin) Allergy Nausea/Vom/ Verified 03/13/24 18:34 Diarrhea Family History Mother Colon cancer Cancer ovary Diabetes Father Hypertension Surgical History Hx of bladder repair surgery Hx of cystoscopy Hx of shoulder surgery Hx of colonoscopy S/P rotator cuff repair S/P bunionectomy S/p bilateral carpal tunnel release S/P cholecystectomy S/P hysterectomy Social History Smoking Status: Never smoker alcohol intake: never ROS ROS ED ROS Narrative Left lower quadrant abdominal pain. Constitutional Constitutional ED: Denies chills or fever(s) ENT ENT ED: Denies ear pain Cardiovascular Cardiovascular: Denies chest pain Respiratory/Chest Respiratory/Chest: Denies cough Gastrointestinal Gastrointestinal: Reports abdominal pain; Denies diarrhea, melena, nausea or vomiting Genitourinary Genitourinary ED: Denies dysuria or hematuria Musculoskeletal Musculoskeletal: Denies arthralgias Integumentary Denies abscess Neurologic Neurologic: Denies headache(s) Psychiatric Psychiatric: Denies anxiety Endocrine Endocrinology: Denies polydipsia Hematologic/Lymphat ic Hematologic/Lymphat ic: Denies lymphadenopathy Allergic/Immunologi c Allergic/Immunologi c ED: Denies mouth swelling, tongue swelling or urticaria EXAM Physical Exam Narrative Exam Narrative: 50-year-old female sitting upright in bed vital signs are stable afebrile. No acute distress. H EENT exam unremarked. Neck nontender no lymphadenopathy. Lungs clear to auscultation bilateral. Heart regular rhythm no murmur. Abdomen soft nondistended tender left lower quadrant only. No rigidity. No rebound. Right lower and both upper quadrants are nontender. No hernia or mass. No obstruction. No pulsatile mass. Moving all 4 extremities. Nontender. No edema. Back nontender. She is awake and alert. Const Vi (more content not included)... Normal [facility] Lipaseon 03-13-2024 Lipase [Catalytic activity/Vol] 54 U/L Normal 13-75 [facility] Comment on above: Result Comment: Pramod grande note: LIPASE revised reference range effective 22. New Lipase methodology. Expected to produce lower values than the previous assay method. NEW Reference Range: 13 - 75 U/L Performed By: #### L 9100.0100 #### [facility] [address] [place], [place], [id number] Urinalysis, Completeon 03-13 EPI,SQUAMOUS 0-5 SEEN Normal 5-10 [facility] Comment on above: Order Comment: CLEAN CATCH Performed By: #### L 300.4310 #### [facility] [address] [place], [address] EPI,TRANSITION 0-5 SEEN Normal 0-5 [facility] Comment on above: Order Comment: CLEAN CATCH Performed By: #### L 300.4310 #### [facility] [address] [place], [address] WBC 0-5 SEEN Normal 0-5 [facility] Comment on above: Order Comment: CLEAN CATCH Performed By: #### L 300.4310 #### [facility] [address] [place], [address] BACTERIA 0 SEEN Normal None Seen [facility] Comment on above: Order Comment: CLEAN CATCH Performed By: #### L 300.4310 #### [facility] [address] [place], [address] Mucus Ql (Urine sed) 0 SEEN Normal [facility] Comment on above: Order Comment: CLEAN CATCH Performed By: #### L 300.4310 #### [facility] [address] [place], [address] RBC 0 SEEN Normal 0-5 [facility] Comment on above: Order Comment: CLEAN CATCH Performed By: #### L 300.4310 #### [facility] [address] [place], [address] MR/BMS.Juan Daniel 02-27-2024 MR/BMS.BVS [facility] [address] [place] [address] OFFICE VISIT Date of Service: 02/27/24 MR#: [id number] Acct: [id number] Name: KAROLINA AHN Rep #: [id number] : 1965 Provider: Dr. Reji Goldberg MD Age/Sex: 58/F Location: [facility] Status: Signed Intake Vital Signs 11/28/23 15:55 02/27/24 13:12 Height 5 ft 4 in Weight: 143 lb BP 120/78 Blood Pressure Location Lt brachial Position Sitting Respiration 16 Pulse 81 Pulse Source Monitor Temp 98.2 F Temp Source Temporal Pulse Oximetry (%) 98 Oxygen Delivery Method room air Intake Visit Reasons: F/u Chief Complaint: CONCERNS FOR SINUS INFECTION Allergies hydrocodone (From Vicodin) Allergy (Verified 12/10/23 16:14) Nausea/Vom/Diarrhea oxycodone Adverse Reaction (Verified 12/10/23 16:14) Itching PFSH Medical History GERD (gastroesophageal reflux disease) Loss of hearing Wears glasses Arthritis Bladder disease DVT (deep venous thrombosis) Restless legs Difficulty swallowing Gastric reflux Non-smoker Leg cramps History of pain when walking History of echocardiogram History of stress test Anxiety Anemia Surgical History Hx of bladder repair surgery Hx of cystoscopy Hx of shoulder surgery Hx of colonoscopy S/P rotator cuff repair S/P bunionectomy S/p bilateral carpal tunnel release S/P cholecystectomy S/P hysterectomy Family History Mother Colon cancer Cancer ovary Diabetes Father Hypertension Social History Smoking Status: Never smoker alcohol intake: never HPI HPI HPI: KAROLINA AHN, is a 58 F who presents to the office today for follow up of bilateral iliac vein stents; stent thrombosis requiring thrombectomy 12/20. She had some continued calf pain/cramping after thrombectomy that has since resolved. Recently walked a large amount while at [place] and leg did well. Tolerating Eliquis though she has had fairly frequent epistaxis. ROS General General: No weight change, appetite, fatigue, colon cancer, breast cancer or weakness HEENT HEENT: No difficulty swallowing, eye injury, eye surgery, swollen glands or hoarseness Endo Endocrine: No thyroid disease, diabetes mellitus, thyroid cancer, Hair loss, heat intolerance or cold intolerance Skin Skin: No rash or changing moles Musc Musculoskeletal: No back problems, arthritis, rheumatoid arthritis, gout or joint pain Cardio Cardiovascular: No murmur, pacemaker, heart disease, atrial fibrillation, high blood pressure, heart attack, heart stent, palpitations, shortness of breat with exertion or chest pain Psych Psychiatric: No depression, anxiety or hearing voices Resp Respiratory: No shortness of breath, No sleep apnea, No cough, No COPD, No asthma, No emphysema and No wheezing Gastro Gastrointestinal: No abdominal pain, No nausea or vomiting, No diarrhea, No constipation, No blood in stool, No acid reflux, No hemorrhoids, No ulcers, No gallbladder problem and No black,tarry s tools Fito Hematologic: Yes blood thinners, No blood disorders, No bleeding, No anemia and Yes blood clots Neuro Neurologic: No system reviewed and no additional complaints, except as documented, No as per HPI, No abnormal gait, No abnormal hearing, No abnormal movements, No abnormal speech, No behavioral changes, No burning sensations, No confusion, No convulsions, No disequilibrium, No dizziness, No localized weakness, No frequent falls, No headache(s), No lack of coordination, No loss of vision, No memory loss, No numbness, No other visual disturbances, No radicular pain, Yes restless legs, No sensory deficit, No syncope, No tingling, No tremor(s), No weakness and No other Exam Const General: cooperative, healthy appearing, comfortable, no acute distress and well developed Nutritional Appearance: well nourished Orientation: alert, awake and oriented x3 HENMT Head: normocephalic and atraumatic Ears: hearing grossly normal bilaterally Nose: external nose normal Eyes General: appearance normal, both eyes and all related structures EOM: EOM intact bilaterally Neck Neck: normal visual inspection, full ROM, no lymphadenopathy and trachea midline Thyroid: thyroid normal Lymphatic: no lymphadenopathy noted Resp Effort Inspection: normal respiratory effort, able to speak in complete sentences, symmetric chest movement, no audible wheezes, not labored, no stridor and no use of accessory muscles Cardio Rate: regular rate Rhythm: regular rhythm Pulses: brachial pulses present, radial pulses present, popliteal pulses prese (more content not included)... Normal [facility] CBC, Employeeon 02-14-2024 Absolute Lymph 1.42 X10 3/uL Normal 0.83-4.51 [facility] Comment on above: Performed By: #### L 9100.0100 #### [facility] [address] [place], [place], [id number] Absolute Neut 4.0 X10 3/uL Normal 2.0-7.7 [facility] Comment on above: Performed By: #### L 9100.0100 #### [facility] [address] [place], [address] Basophils/100 WBC (Bld) 0.7 % Normal 0-1 [facility] Comment on above: Performed By: #### L 9099.0100 #### [facility] [address] [place], [address] Eosinophils/100 WBC (Bld) 5.4 % High 0-5 [facility] Comment on above: Performed By: #### L 9099.0100 #### [facility] [address] [place], [address] Erythrocyte distribution width (RBC) [Ratio] 13.4 % Normal 11.6-14.6 [facility] Comment on above: Performed By: #### L 9099.0100 #### [facility] [address] [place], [address] Hematocrit (Bld) [Volume fraction] 40.7 % Normal 37-47 [facility] Comment on above: Performed By: #### L 9099.0100 #### [facility] [address] [place], [address] Hemoglobin (Bld) [Mass/Vol] 13.1 g/dL Normal 12.0-15.0 [facility] Comment on above: Performed By: #### L 9099.0100 #### [facility] [address] [place], [address] Lymphocytes/100 WBC (Bld) 23.3 % Normal 19-41 [facility] Comment on above: Performed By: #### L 9099.0100 #### [facility] [address] [place], [address] MCH (RBC) [Entitic mass] 28.5 pg Normal 27.0-32.0 [facility] Comment on above: Performed By: #### L 9099.0100 #### [facility] [address] [place], [address] MCHC (RBC) [Mass/Vol] 32.2 g/dL Normal 32-36 [facility] Comment on above: Performed By: #### L 9099.0100 #### [facility] [address] [place], [address] MCV (RBC) [Entitic vol] 88.7 fL Normal 81-99 [facility] Comment on above: Performed By: #### L 9099.0100 #### [facility] [address] [place], [address] Monocytes/100 WBC (Bld) 5.6 % Normal 0-10 [facility] Comment on above: Performed By: #### L 9099.0100 #### [facility] [address] [place], [address] Neutrophils/100 WBC (Bld) 64.7 % Normal 47-70 [facility] Comment on above: Performed By: #### L 9099.0100 #### [facility] [address] [place], [address] NRBC # 0.00 10 3/uL Normal 0-5 [facility] Comment on above: Performed By: #### L 9099.0100 #### [facility] [address] [place], [address] Nucleated RBC (Bld) [#/Vol] 0 10*3/uL Normal 0-5 [facility] Comment on above: Performed By: #### L 9099.0100 #### [facility] [address] [place], [address] Platelet mean volume (Bld) [Entitic vol] 9.8 fL Normal 6.2-12.0 [facility] Comment on above: Performed By: #### L 9100.0100 #### [facility] [address] [place], [address] Platelets (Bld) [#/Vol] 272 10*3/uL Normal 150-450 [facility] Comment on above: Performed By: #### L 9099.0100 #### [facility] [address] [place], [address] RBC (Bld) [#/Vol] 4.59 10*6/uL Normal 4.2-5.4 [facility] Comment on above: Performed By: #### L 9099.0100 #### [facility] [address] [place], [address] RDW SD 43.5 fl Normal 35.1-43.9 [facility] Comment on above: Performed By: #### L 9099.0100 #### [facility] [address] [place], [address] WBC (Bld) [#/Vol] 6.1 10*3/uL Normal 4.4-11.0 [facility] Comment on above: Performed By: #### L 00.0100 #### [facility] [address] [place], [address] Employee Profileon 4 Albumin [Mass/Vol] 3.7 g/dL Normal 3.2-5.0 [facility] Comment on above: Performed By: #### L 00.0100 #### [facility] [address] [place], [address] Albumin/Globulin [Mass ratio] 1.1 {ratio} Normal 0.9-2.4 [facility] Comment on above: Performed By: #### L 9099.0100 #### [facility] [address] [place], [address] ALK P 136 U/L High 45-117 [facility] Comment on above: Performed By: #### L 9100.0100 #### [facility] [address] [place], [address] ALT [Catalytic activity/Vol] 35 U/L Normal 13-56 [facility] Comment on above: Performed By: #### L 9100.0100 #### [facility] [address] [place], [address] AST [Catalytic activity/Vol] 19 U/L Normal 15-37 [facility] Comment on above: Performed By: #### L 9100.0100 #### [facility] [address] [place], [address] Bilirubin [Mass/Vol] 0.50 mg/dL Normal 0.20-1.00 [facility] Comment on above: Result Comment: For patients on eltrombopag therapy, use of Dimension [place] TBIL is not recommended. Performed By: #### L 9100.0100 #### [facility] [address] [place], [address] Bilirubin.direct [Mass/Vol] 0.14 mg/dL Normal 0.00-0.30 [facility] Comment on above: Performed By: #### L 9100.0100 #### [facility] [address] [place], [address] BUN/CRE 18.4 RATIO Normal 10-20 [facility] Comment on above: Performed By: #### L 9100.0100 #### [facility] [address] [place], [address] CA,Total 9.3 mg/dL Normal 8.5-10.1 [facility] Comment on above: Performed By: #### L 9100.0100 #### [facility] [address] [place], [address] Chloride [Moles/Vol] 110 mmol/L High 98-107 [facility] Comment on above: Performed By: #### L 9099.0100 #### [facility] [address] [place], [address] CHOL:HDL 3.50 Normal [facility] Comment on above: Performed By: #### L 9099.0100 #### [facility] [address] [place], [address] Cholesterol [Mass/Vol] 261 mg/dL High 200 [facility] Comment on above: Result Comment: <200 mg/dL Desirable 200-240 mg/dL Borderline >240 mg/dL High Risk Performed By: #### L 9099.0100 #### [facility] [address] [place], [address] Cholesterol in HDL [Mass/Vol] 75 mg/dL Normal [facility] Comment on above: Result Comment: The drugs N-Acetylcysteine and Metamizole may falsely depress this assay. Reference Range HDL <40 mg/dL Low HDL Cholesterol HDL >or= 60 mg/dL High HDL Cholesterol Performed By: #### L 9099.0100 #### [facility] [address] [place], [address] Cholesterol in LDL [Mass/Vol] 155 mg/dL High 0-130 [facility] Comment on above: Performed By: #### L 9099.0100 #### [facility] [address] [place], [address] Cholesterol in VLDL [Mass/Vol] 31 mg/dL Normal 5-40 [facility] Comment on above: Performed By: #### L 9099.0100 #### [facility] [address] [place], [address] CO2 [Moles/Vol] 23.0 mmol/L Normal 21.0-32.0 [facility] Comment on above: Performed By: #### L 9099.0100 #### [facility] [address] [place], [address] Creatinine [Mass/Vol] 1.03 mg/dL High 0.55-1.02 [facility] Comment on above: Result Comment: The validity of the calculated GFR GFRAA in patients over 70 years has not been determined. Clinical correlation is essential. Performed By: #### L 9100.0100 #### [facility] [address] [place], [address] EST GFR - AA 71 mL/min Normal >60 [facility] Comment on above: Result Comment: Afri can Mal[place]ian GFR Calc Performed By: #### L 9100.0100 #### [facility] [address] [place], [address] GAP 8 Normal 5-15 [facility] Comment on above: Performed By: #### L 91.0100 #### [facility] [address] [place], [address] GFR/1.73 sq M.predicted among non-blacks MDRD (S/P/Bld) [Vol rate/Area] 58 mL/min/{1.73_m2} Low >60 [facility] Comment on above: Result Comment: Non- GFR Calc Performed By: #### L 9100.0100 #### [facility] [address] [place], [address] Globulin (S) [Mass/Vol] 3.5 g/dL Normal 2.2-4.2 [facility] Comment on above: Performed By: #### L 9100.0100 #### [facility] [address] [place], [address] Glucose [Mass/Vol] 116 mg/dL High 74-106 [facility] Comment on above: Result Comment: Fast ing Glucose result from 100 to 125 mg/dL suggests IMPAIRED HOMEOSTASIS per A.D.A. criteria. Performed By: #### L 9100.0100 #### [facility] [address] [place], [address] LDH 193 U/L Normal 84-246 [facility] Comment on above: Performed By: #### L 9100.0100 #### [facility] [address] [place], [address] Phosphate [Mass/Vol] 3.6 mg/dL Normal 2.5-4.9 [facility] Comment on above: Performed By: #### L 9099.0100 #### [facility] [address] [place], [address] Potassium [Moles/Vol] 3.7 mmol/L Normal 3.5-5.1 [facility] Comment on above: Performed By: #### L 9099.0100 #### [facility] [address] [place], [address] Sodium [Moles/Vol] 141 mmol/L Normal 136-145 [facility] Comment on above: Performed By: #### L 9100.0100 #### [facility] [address] [place], [address] T PROT 7.2 g/dL Normal 6.4-8.2 [facility] Comment on above: Performed By: #### L 9099.0100 #### [facility] [address] [place], [address] Triglyceride [Mass/Vol] 154 mg/dL Normal [facility] Comment on above: Result Comment: The drugs N-Acetylcysteine and Metamizole may falsely depress this assay. Serum Triglycerides Reference Interval Normal <150 mg/dL Borderline high 150 - 199 mg/dL High 200 - 499 mg/dL Very High > or = 500 mg/dL Performed By: #### L 9100.0100 #### [facility] [address] [place], [address] Urea nitrogen [Mass/Vol] 19 mg/dL High 7-18 [facility] Comment on above: Performed By: #### L 9100.0100 #### [facility] [address] [place], [address] URIC 3.2 mg/dL Normal 2.6-6.0 [facility] Comment on above: Result Comment: The drugs N-Acetylcysteine and Metamizole may falsely depress this assay. Performed By: #### L 00.0100 #### [facility] [address] [place], [address] Urinalysis, Employeeon 02-13 BILIRUBIN URINE Negative Normal Negative [facility] Comment on above: Order Comment: Urine , Random Performed By: #### L 00.0100 #### [facility] [address] [place], [address] Clarity (U) Sl. Cloudy Normal Clear [facility] Comment on above: Order Comment: Urine , Random Performed By: #### L 00.0100 #### [facility] [address] [place], [address] Color (U) Yellow Normal Yellow [facility] Comment on above: Order Comment: Urine , Random Performed By: #### L 00.0100 #### [facility] [address] [place], [address] GLUCOSE, UR Normal Normal Normal [facility] Comment on above: Order Comment: Urine , Random Performed By: #### L 9100.0100 #### [facility] [address] [place], [address] KETONE UR Negative Normal Negative [facility] Comment on above: Order Comment: Urine , Random Performed By: #### L 9100.0100 #### [facility] [address] [place], [address] LEUK ESTERASE 500 /ul Abnormal Negative [facility] Comment on above: Order Comment: Urine , Random Performed By: #### L 9099.0100 #### [facility] [address] [place], [address] Nitrite Ql (U) Negative Normal Negative [facility] Comment on above: Order Comment: Urine , Random Performed By: #### L 9099.0100 #### [facility] [address] [place], [address] OCCULT BLOOD-UR 10 /ul Abnormal Negative [facility] Comment on above: Order Comment: Urine , Random Performed By: #### L 9099.0100 #### [facility] [address] [place], [address] pH UR 6.0 Normal 5.0 - 8.0 [facility] Comment on above: Order Comment: Urine , Random Performed By: #### L 9099.0100 #### [facility] [address] [place], [address] PROT DIPSTX 30 mg/dl Abnormal Negative [facility] Comment on above: Order Comment: Urine , Random Performed By: #### L 9099.0100 #### [facility] [address] [place], [address] SP.GR. DIPSTX 1.020 Normal 1.002-1.030 [facility] Comment on above: Order Comment: Urine , Random Performed By: #### L 9099.0100 #### [facility] [address] [place], [address] UROBILI 1 mg/dl Abnormal Normal [facility] Comment on above: Order Comment: Urine , Random Performed By: #### L 9099.0100 #### [facility] [address] [place], [address] Urine Cultureon 01-28-2024 URC Culture exhibits no growth. Normal [facility] Comment on above: Performed By: #### M 100.2200, L400.0001 ####[facility] [address] [place], [address] Urinalysis, Completeon 01-26 EPI,SQUAMOUS 0-5 SEEN Normal 5-10 [facility] Comment on above: Order Comment: Order Date: 01/27/24Order Info: [id number] - UACCOLLECTOR TO SPECIFY Performed By: #### M 100.2200, L400.0001 ####[facility] [address] [place], [address] BACTERIA 1+ /hpf Normal None Seen [facility] Comment on above: Order Comment: Order Date: 01/27/24Order Info: [id number] - UACCOLLECTOR TO SPECIFY Performed By: #### M 100.2200, L400.0001 ####[facility] [address] [place], [address] RBC 25-50 SEEN Normal 0-5 [facility] Comment on above: Order Comment: Order Date: 01/27/24Order Info: [id number] - UACCOLLECTOR TO SPECIFY Performed By: #### M 100.2200, L400.0001 ####[facility] [address] [place], [address] WBC 10-25 SEEN Normal 0-5 [facility] Comment on above: Order Comment: Order Date: 01/27/24Order Info: [id number] - UACCOLLECTOR TO SPECIFY Performed By: #### M 100.2200, L400.0001 ####[facility] [address] [place], [address] Mucus Ql (Urine sed) 0 SEEN Normal [facility] Comment on above: Order Comment: Order Date: 01/27/24Order Info: [id number] - UACCOLLECTOR TO SPECIFY Performed By: #### M 100.2200, L400.0001 ####[facility] [address] [place], [address] Venous Duplex US - Italo Extre mon 12-24-2023 Venous Duplex US - Italo Extrem [facility] [address] [place] [address] Venous Duplex US - Italo Extrem 12/24/23 1123 MR#: [id number] Acct: [id number] Name: KAROLINA AHN Rep #: [id number] : 1965 58 From: Reji Goldberg MD Attending Dr: KINGS Sidhu Status: REG CLI Ordering Dr: Martine Power Date: 12/24/23 Location: CVS Sex: F C Admitted: Reason For Study: Bilateral leg swelling RIGHT LEFT GSV is normal. GSV is normal. CFV is compressible, spontaneous, phasic, CFV is compressible, spontaneous, phasic, competent and demonstrates normal competent, and demonstrates normal augmentation. augmentation. FV is compressible, spontaneous, phasic, FV is compressible, spontaneous, phasic, competent and demonstrates normal competent and demonstrates normal augmentation. augmentation. POP V is compressible, spontaneous, phasic, POP V is compressible, spontaneous, phasic, competent and demonstrates normal competent and demonstrates normal augmentation. augmentation. T/P Trunk is compressible. T/P Trunk is compressible. PTV is compressible. PTV is compressible. RT PerV is compressible. LT PerV is compressible. CIV with stent is normal with venous flow ProfundaV is compressible. noted. GastrocV is compressible. Procedure SoleusV is compressible. This is a venous duplex using B-mode, color flow and spectral Doppler. IVC appears spontaneous and patent. Exam performed in department. CIV with stent is normal with venous flow Compared to 11/28/2023. noted. A preliminary report was called and/or faxed EIV normal venous flow noted. to Chiquita ZAVALA. VL/Venous Duplex US - Italo Extrem Interpretation Summary Deep veins of the bilateral lower extremities are patent and compressible segmentally. There is no evidence of bilateral lower extremity deep vein thrombosis. The bilateral great saphenous veins appear patent and compressible segmentally. Inferior vena cava and bilateral iliac vein stents patent with normal venous flow pattern. __ Ordering Physician: Martine Power Referring Physician: Jimbo Dash Performed By: Kacey Jenkins RVT 12/24/23 1617 Date Reji Goldberg MD CC: KINGS Sidhu; Dr. Jimbo Dash MD Date Dictated: 12/24/23 1123 Date Transcribed: 12/24/231616 Yarn Dumper: Signed [facility] MR/BMS.BVSon 12-10-2023 MR/BMS.[facility] [address] [place] [address] OFFICE VISIT Date of Service: 12/10/23 MR#: [id number] Acct: [id number] Name: KAROLINA AHN Rep #: [id number] : 1965 Provider: KINGS Sidhu Age/Sex: 58/F Location: [facility] Status: Signed Intake Vital Signs 11/28/23 15:55 12/10/23 16:12 Height 5 ft 4 in BP 127/75 H Blood Pressure Location Lt brachial Position Sitting Respiration 16 Pulse 65 Pulse Source Monitor Temp 98.4 F Temp Source Temporal Pulse Oximetry (%) 99 Oxygen Delivery Method room air Intake Visit Reasons: SUTURE REMOVAL Is patient in pain?: Yes Allergies hydrocodone (From Vicodin) Allergy (Verified 12/10/23 16:14) Nausea/Vom/Diarrhea oxycodone Adverse Reaction (Verified 12/10/23 16:14) Itching Medications ???Medication ???Instructions ???Recorded ???Confirmed ???Type sertraline 100 mg tablet 50 mg PO BID anxiety 03/30/14 12/10/23 History Cholecalciferol (Vitamin D3) 5,000 unit PO DAILY supplement 03/07/20 12/10/23 History [Vitamin D3] cyanocobalamin (vitamin B-12) 3,000 mcg PO DAILY supplement 03/07/20 12/10/23 History 5,000 mcg disintegrating tablet omeprazole 20 mg tablet,delayed 20 mg PO QHS reflux 03/07/20 12/10/23 History release pitavastatin calcium 2 mg tablet 2 mg PO QPM cholesterol 02/08/22 12/10/23 History (Livalo) cetirizine 10 mg capsule (Zyrtec) 10 mg PO DAILY allergies 04/12/22 12/10/23 History dicyclomine 20 mg tablet 20 mg PO BID IBS 10/02/22 12/10/23 History alendronate 70 mg tablet 70 mg PO QWEEK bones 11/28/23 12/10/23 History apixaban 5 mg (74 tabs) tablets in See Rx Instructions PO .COMPLEX 12/03/23 12/10/23 Rx a dose pack ([employer]X [employer] DVT-PE Treat #74 tabs 30D Start) oxycodone 5 mg tablet 5 mg PO Q8H PRN pain 3 days #9 tabs 12/03/23 12/10/23 Rx tizanidine 2 mg tablet 2 mg PO QHS PRN muscle spasticity 12/10/23 12/10/23 Rx #14 tabs Is last menstrual period known: No Post menopausal: Yes Patient : No Have you fallen in the past year?: Yes PFSH Medical History Loss of hearing Wears glasses Arthritis Bladder disease DVT (deep venous thrombosis) Restless legs Difficulty swallowing Gastric reflux Non-smoker Leg cramps History of pain when walking History of echocardiogram History of stress test Anxiety Anemia Surgical History Hx of bladder repair surgery Hx of cystoscopy Hx of shoulder surgery Hx of colonoscopy S/P rotator cuff repair S/P bunionectomy S/p bilateral carpal tunnel release S/P cholecystectomy S/P hysterectomy Family History Mother Colon cancer Cancer ovary Diabetes Father Hypertension Social History Smoking Status: Never smoker alcohol intake: never HPI HPI HPI: KAROLINA AHN, is a 58 F who presents to the office today for suture removal following venogram with thrombectomy and bilateral iliac vein angioplasty on 12/02/2023. She reports that over the last week, she has been noticing increased muscle cramps in her bilateral calves and thighs. She does also have ongoing low back pain/discomfort which is consistent with the pain she had following her initial stenting as well. She has noticed significant improvement in her lower extremity edema. She does still have some discomfort at the bilateral popliteal fossa access sites but no increased swelling, bleeding/drainage, or worsened ecchymosis. She has been tolerating the Eliquis and aspirin though she has noticed increased bruising. ROS General General: No weight change, appetite, fatigue, colon cancer, breast cancer or weakness HEENT HEENT: No difficulty swallowing, eye injury, eye surgery, swollen glands or hoarseness Endo Endocrine: No thyroid disease, diabetes mellitus, thyroid cancer, Hair loss, heat intolerance or cold intolerance Skin Skin: No rash or changing moles Musc Musculoskeletal: No back problems, arthritis, rheumatoid arthritis, gout or joint pain Cardio Cardiovascular: No murmur, pacemaker, heart disease, atrial fibrillation, high blood pressure, heart attack, heart stent, palpitations, shortness of breat with exertion or chest pain Psych Psychiatric: Yes anxiety; No depression or hearing voices Resp Respiratory: No shortness of breath, No sleep apnea, No cough, No COPD, No asthma, No emphysema and No wheezing Gastro Gastrointestinal: No abdominal pain, No nausea or vomiting, No diarrhea, No constipation, No blood in stool, No acid reflux, No hemorrhoids, No ulcers, No gallbladder problem and No black,tarry stools Fito Hematologic: Yes (more content not included)... Normal [facility] Discharge Instructionon 08-0 Discharge Instruction [facility] Medical Records Department [address] [place] [address] Instructions for Home/Discharge Instructions 12/03/23 1056 MR#: [id number] Acct: [id number] Name: KAROLINA AHN Rep #: [id number] : 1965 58 From: Everton Mchugh DO PCP: Dr. Jimbo Dash MD Status:ADM IN Discharge Instructions Diet Discharge Diet: No restrictions Activity Discharge Activity: No Restrictions Follow Up Care Test Results: Test results from this visit will be discussed in further detail at your follow-up appointment, if applicable. Discharge Plan Admission Admit Date/Time: 11/28/23 15:13 Primary Reason for Your Visit: left leg pain and swelling Attending Provider: Everton Mchugh Primary Care Provider: Jimbo Dash Consulting Providers: Carole Bower; Reji Goldberg Discharge Orders/Prescription s Prescriptions: [employer] DVT-PE Treat 30D Start 5 mg (74 tabs) tablets,dose pack See Rx Instructions .ROUTE .COMPLEX Qty: 74 0RF Rx Instructions: orally per package directions oxycodone 5 mg tablet 5 mg PO Q8H PRN (Reason: pain) 3 Days Qty: 9 0RF Continued Zyrtec 10 mg capsule 10 mg PO DAILY sertraline 100 MG tablet 50 mg PO BID Patient Comments: ANXIETY cyanocobalamin (vitamin B-12) 5,000 MCG tablet,disintegrati ng 3,000 mcg PO DAILY Cholecalciferol (Vitamin D3) [Vitamin D3] 5,000 UNIT capsule 5,000 unit PO DAILY omeprazole 20 MG tablet,delayed release (DR/EC) 20 mg PO QHS pitavastatin calcium [Livalo] 2 mg Tablet 2 mg PO QPM dicyclomine 20 mg Tablet 20 mg PO BID alendronate 70 mg tablet 70 mg PO QWEEK Referrals / Follow Up: Jimbo Dash MD [Primary Care Provider] - Disposition Disposition (needs filled in before D/C Order can be placed): Home, Self Care 12/03/23 1102 Everton Mchugh DO CC: Dr. Reji Goldebrg MD; Dr. Carole Bower MD; Dr. Jimbo Dash MD Signed Normal [facility] Partial Thromboplast Timeon 12-03-2023 aPTT Coag (Bld) [Time] 57.0 s High 24.1-36.2 [facility] Comment on above: Performed By: #### L 9100.0100 #### [facility] [address] [place], [address] aPTT Coag (Bld) [Time] 37.2 s High 24.1-36.2 [facility] Comment on above: Performed By: #### L 9100.0100 #### [facility] [address] [place], [address] 12 Lead EKGon 12-02-2023 12 Lead EKG [facility] Cardiovascular Services [address] [place] [address] 12 Lead EKG 12/02/23 0618 MR#: [id number] Acct: [id number] Name: KAROLINA AHN Rep #: [id number] : 1965 58 From: Cliff Flores MD Attending Dr: Dr. Everton Mchugh DO Status : DIS IN Ordering Dr: Reji Rodrigues MD Date: 12/02/23 Location: [facility] Sex: F C Admitted: 11/28/23 Test Reason : PRE-OP Blood Pressure : / mmHG Vent. Rate : 067 BPM Atrial Rate : 067 BPM P-R Int : 164 ms QRS Dur : 080 ms QT Int : 400 ms P-R-T Axes : 053 015 041 degrees QTc Int : 422 ms Normal sinus rhythm Normal ECG When compared with ECG of 21-MAR-2020 12:57, No significant change was found Confirmed by Cliff Flores ([id number]), purchase request editor MARIE DEGROOT ([id number]) on 12/05/2023 9:11:13 AM Referred By: JORDI Confirmed By:Cliff Flores 12/05/23 0911 Date Cliff Flores MD CC: Dr. Everton Mchugh DO; Dr. Reji Rodrigues MD; Dr. Jimbo Dash MD Signed Normal [facility] ACT Activated Clotting Timeo n 12-02-2023 ACTk CLOT TIME 214 sec High 74-137 [facility] Comment on above: Performed By: #### L 9100.0100 #### [facility] [address] [place], [address] ACTk CLOT TIME 232 sec High 74-137 [facility] Comment on above: Performed By: #### L 9100.0100 ####[facility] [address] [place], [address] ACTk CLOT TIME 207 sec High 74-137 [facility] Comment on above: Performed By: #### L 300.4310 #### [facility] [address] [place], [address] Basic Metabolic Profile (BMP )on 12-02-2023 BUN/CRE 20.1 RATIO High 10-20 [facility] Comment on above: Performed By: #### L 500.2500, L100.0500 ####[facility] [address] [place], [address] CA,Total 9.4 mg/dL Normal 8.5-10.1 [facility] Comment on above: Performed By: #### L 500.2500, L100.0500 ####[facility] [address] [place], [address] Chloride [Moles/Vol] 107 mmol/L Normal 98-107 [facility] Comment on above: Performed By: #### L 500.2500, L100.0500 ####[facility] [address] [place], [address] CO2 [Moles/Vol] 25.0 mmol/L Normal 21.0-32.0 [facility] Comment on above: Performed By: #### L 500.2500, L100.0500 ####[facility] [address] [place], [address] Creatinine [Mass/Vol] 0.70 mg/dL Normal 0.55-1.02 [facility] Comment on above: Result Comment: The validity of the calculated GFR GFRAA in patients over 70 years has not been determined. Clinical correlation is essential. Performed By: #### L 500.2500, L100.0500 ####[facility] [address] [place], [address] ECRCL 83.72 ml/min Normal [facility] Comment on above: Performed By: #### L 500.2500, L100.0500 ####[facility] [address] [place], [address] EST GFR - AA 111 mL/min Normal >60 [facility] Comment on above: Result Comment: Afri can Malawian GFR Calc Performed By: #### L 500.2500, L100.0500 ####[facility] [address] [place], [address] GAP 6 Normal 5-15 [facility] Comment on above: Performed By: #### L 500.2500, L100.0500 ####[facility] [address] [place], [address] GFR/1.73 sq M.predicted among non-blacks MDRD (S/P/Bld) [Vol rate/Area] 92 mL/min/{1.73_m2} Normal >60 [facility] Comment on above: Result Comment: Non- GFR Calc Performed By: #### L 500.2500, L100.0500 ####[facility] [address] [place], [address] Glucose [Mass/Vol] 99 mg/dL Normal 74-106 [facility] Comment on above: Performed By: #### L 500.2500, L100.0500 ####[facility] [address] [place], [address] Potassium [Moles/Vol] 4.2 mmol/L Normal 3.5-5.1 [facility] Comment on above: Performed By: #### L 500.2500, L100.0500 ####[facility] [address] [place], [address] Sodium [Moles/Vol] 138 mmol/L Normal 136-145 [facility] Comment on above: Performed By: #### L 500.2500, L100.0500 ####[facility] [address] [place], [address] Urea nitrogen [Mass/Vol] 14 mg/dL Normal 7-18 [facility] Comment on above: Performed By: #### L 500.2500, L100.0500 ####[facility] [address] [place], [address] CBC-Complete Blood Cnt No ffon 12-02-2023 Erythrocyte distribution width (RBC) [Ratio] 13.1 % Normal 11.6-14.6 [facility] Comment on above: Performed By: #### L 500.2500, L100.0500 ####[facility] [address] [place], [address] Hematocrit (Bld) [Volume fraction] 38.8 % Normal 37-47 [facility] Comment on above: Performed By: #### L 500.2500, L100.0500 ####[facility] [address] [place], [address] Hemoglobin (Bld) [Mass/Vol] 12.3 g/dL Normal 12.0-15.0 [facility] Comment on above: Performed By: #### L 500.2500, L100.0500 ####[facility] [address] [place], [address] MCH (RBC) [Entitic mass] 29.2 pg Normal 27.0-32.0 [facility] Comment on above: Performed By: #### L 500.2500, L100.0500 ####[facility] [address] [place], [address] MCHC (RBC) [Mass/Vol] 31.7 g/dL Low 32-36 [facility] Comment on above: Performed By: #### L 500.2500, L100.0500 ####[facility] [address] [place], [address] MCV (RBC) [Entitic vol] 92.2 fL Normal 81-99 [facility] Comment on above: Performed By: #### L 500.2500, L100.0500 ####[facility] [address] [place], [address] Platelet mean volume (Bld) [Entitic vol] 9.8 fL Normal 6.2-12.0 [facility] Comment on above: Performed By: #### L 500.2500, L100.0500 ####[facility] [address] [place], [address] Platelets (Bld) [#/Vol] 213 10*3/uL Normal 150-450 [facility] Comment on above: Performed By: #### L 500.2500, L100.0500 ####[facility] [address] [place], [address] RBC (Bld) [#/Vol] 4.21 10*6/uL Normal 4.2-5.4 [facility] Comment on above: Performed By: #### L 500.2500, L100.0500 ####[facility] [address] [place], [address] RDW SD 43.7 fl Normal 35.1-43.9 [facility] Comment on above: Performed By: #### L 500.2500, L100.0500 ####[facility] [address] [place], [address] WBC (Bld) [#/Vol] 5.7 10*3/uL Normal 4.4-11.0 [facility] Comment on above: Performed By: #### L 500.2500, L100.0500 ####[facility] [address] [place], [address] Operative Reporton 4 Operative Report [facility] Medical Records Department [address] [place] [address] Operative Report 12/02/23 1034 MR#: [id number] Acct: [id number] Name: KAROLINA AHN Rep #: [id number] : 1965 58 From: Reji Goldberg MD PCP: Dr. Jimbo Dash MD Status:ADM IN Location: [place] [address] Report of Operation Date of Procedure: 12/02/23 Pre-Operative Diagnosis: left lower extremity DVT Post-Operative Diagnosis: same Surgery/Procedure Performed:: IVC venogram bilateral lower extremity venogram percutaneous mechanical thrombectomy left lower extremity angioplasty bilateral common iliac veins IVUS IVC, bilateral common/external iliac vein Surgeon: Reji Goldberg Type of Anesthesia: Local and Sedation,Conscious Estimated Blood Loss (mL): 100 Description of Procedure: HPI: Patient is a 58-year-old female who previously underwent bilateral common iliac vein stents extending into the inferior vena cava for significant compression and related deep venous thrombosis. She had a 1 year surveillance duplex approximately 6 weeks prior which appeared satisfactory and she has completed her 1 year of dual antiplatelet currently now on only single antiplatelet agent. She presented with acute onset left lower extremity tightness pain and swelling was found to have extensive DVT up to and including the iliac vein. She is taken now for venogram with possible thrombectomy. Description of procedure: Upon obtaining form consent and verification correct patient procedure site patient was taken to the [facility] where she was positioned prepped and draped in usual sterile fashion. Time was performed consultation administered Versed and fentanyl. Skin overlying the left popliteal vein was anesthetized 1% lidocaine the vessel accessed with micropuncture needle and wire under ultrasound guidance. This then changed for micropuncture sheath routine injection left lower extremity venogram was performed which revealed patent popliteal and femoral vein with resolution of the thrombus that been visualized on her initial imaging. There was however continued thrombus burden in the common femoral vein, external iliac vein, common iliac vein. Through the micropuncture sheath a Glidewire advantage wire was advanced and the micropuncture sheath exchanged for a short 6 Sammarinese sheath. Through the 6 Sammarinese sheath using a quick cross catheter and the glide advantage we navigated across the total occlusion advancing our wire and catheter into the vena cava. The catheter was then withdrawn and the 6 Sammarinese sheath exchanged for an 18 Sammarinese sheath through which the intravascular ultrasound probe was advanced and recorded pullback performed of the IVC, left common iliac vein, left external leg vein, left common femoral vein, left femoral vein. This confirmed no significant thrombus in the femoral vein however there was acute appearing thrombus in the common femoral vein and the external iliac vein was mixed chronicity thrombus in the common iliac vein and stent. Patient was then bolused with heparin and the 18 Sammarinese sheath exchanged for the 24 Sammarinese Inari sheath. Next skin overlying the right popliteal vein was anesthetized 1% lidocaine the vessel accessed with a micropuncture needle wire and ultrasound guidance. This then exchanged for micropuncture sheath routine injection of extremity venogram was performed revealing satisfactory positioning no extravasation or dissection. This also confirmed patent vessels with brisk contrast transit. Through the micropuncture sheath a [employer] wire is advanced the micropuncture sheath exchanged for a 12 Sammarinese sheath. Through the 12 Sammarinese sheath intravascular sound probe was advanced and recorded pullback performed of the IVC, right common iliac vein, right external iliac vein. This revealed patent stent with no thrombus visualized. Of note both stents appear to be in satisfactory position and the left iliac vein stent at its superior aspect appeared to be compressed however this was in a segment of vena cava that was widely patent with no signs of compression. There was some webbing in this area which was felt to be potentially responsible for this stent compression. Review of the initial imaging and stent placement this area was not compressed at the time. Next the Inari flow retriever was brought in field prep for drug worker's instructions. The T20 catheter was then advanced in position and multiple aspirations were performed with blood return after filtration with significant thrombus returned. Passes and no further thrombus returned repeat venogram was performed which revealed majority of the femoral and iliac thrombus to be resolved. There were 2 areas of residual thrombus at the femoral head as well as in the midportion of the stent. Further aspirations were performed followed by aspiration with the T24 and angled T20 with somewhat further th (more content not included)... Normal [facility] Partial Thromboplast Timeon 12-02-2023 aPTT Coag (Bld) [Time] 126.0 s Invalid Interpretation Code 24.1-36.2 [facility] Comment on above: Result Comment: CRIT ICAL VALUE VERIFIED. CALLED TO CELIA ARGUETA RN U 12/02/23 7449 Cliff Foster. RESULTS READ BACK BY SAME . Performed By: #### L 300.4310 #### [facility] [address] [place], [address] aPTT Coag (Bld) [Time] 79.8 s High 24.1-36.2 [facility] Comment on above: Performed By: #### L 300.4310 #### [facility] [address] [place], [address] Partial Thromboplast Timeon 12-01-2023 aPTT Coag (Bld) [Time] 53.4 s High 24.1-36.2 [facility] Comment on above: Performed By: #### L 300.4310 #### [facility] [address] [place], [address] aPTT Coag (Bld) [Time] 57.8 s High 24.1-36.2 [facility] Comment on above: Performed By: #### L 9100.0100 #### [facility] [address] [place], [address] aPTT Coag (Bld) [Time] 49.1 s High 24.1-36.2 [facility] Comment on above: Performed By: #### L 9100.0100 #### [facility] [address] [place], [address] CBC-Complete Blood Cnt No Di ffon 11-30-2023 Erythrocyte distribution width (RBC) [Ratio] 12.9 % Normal 11.6-14.6 [facility] Comment on above: Performed By: #### L 300.4310 #### [facility] [address] [place], [address] Hematocrit (Bld) [Volume fraction] 37.8 % Normal 37-47 [facility] Comment on above: Performed By: #### L 300.4310 #### [facility] [address] [place], [address] Hemoglobin (Bld) [Mass/Vol] 12.0 g/dL Normal 12.0-15.0 [facility] Comment on above: Performed By: #### L 300.4310 #### [facility] [address] [place], [address] MCH (RBC) [Entitic mass] 29.3 pg Normal 27.0-32.0 [facility] Comment on above: Performed By: #### L 300.4310 #### [facility] [address] [place], [address] MCHC (RBC) [Mass/Vol] 31.7 g/dL Low 32-36 [facility] Comment on above: Performed By: #### L 300.4310 #### [facility] [address] [place], [address] MCV (RBC) [Entitic vol] 92.4 fL Normal 81-99 [facility] Comment on above: Performed By: #### L 300.4310 #### [facility] [address] [place], [address] Platelet mean volume (Bld) [Entitic vol] 10.3 fL Normal 6.2-12.0 [facility] Comment on above: Performed By: #### L 300.4310 #### [facility] [address] [place], [address] Platelets (Bld) [#/Vol] 173 10*3/uL Normal 150-450 [facility] Comment on above: Performed By: #### L 300.4310 #### [facility] [address] [place], [address] RBC (Bld) [#/Vol] 4.09 10*6/uL Low 4.2-5.4 [facility] Comment on above: Performed By: #### L 300.4310 #### [facility] [address] [place], [address] RDW SD 43.2 fl Normal 35.1-43.9 [facility] Comment on above: Performed By: #### L 300.4310 #### [facility] [address] [place], [address] WBC (Bld) [#/Vol] 5.3 10*3/uL Normal 4.4-11.0 [facility] Comment on above: Performed By: #### L 300.4310 #### [facility] [address] [place], [address] Partial Thromboplast Timeon 11-30-2023 aPTT Coag (Bld) [Time] 61.0 s High 24.1-36.2 [facility] Comment on above: Performed By: #### L 300.4310 #### [facility] [address] [place], [address] aPTT Coag (Bld) [Time] 36.9 s High 24.1-36.2 [facility] Comment on above: Performed By: #### L 300.4310 #### [facility] [address] [place], [address] aPTT Coag (Bld) [Time] 56.5 s High 24.1-36.2 [facility] Comment on above: Performed By: #### L 300.4310 ####[facility] [address] [place], [address] aPTT Coag (Bld) [Time] 100.3 s Invalid Interpretation Code 24.1-36.2 [facility] Comment on above: Result Comment: CRIT ICAL VALUE VERIFIED. CALLED TO EZRA 11/30/23 Keshav3 Brandon Walters. RESULTS READ BACK BY SAME. Performed By: #### L 300.4310 ####[facility] [address] [place], [address] Basic Metabolic Profile (BMP )on 11-29-2023 BUN/CRE 21.3 RATIO High 10-20 [facility] Comment on above: Order Comment: BRYCE WALLACE TO DRAW MORNING LABS WITH 0242 TIMED DRAW Performed By: #### L 500.2500, L100.0100 ####[facility] [address] [place], [address] CA,Total 9.0 mg/dL Normal 8.5-10.1 [facility] Comment on above: Order Comment: BRYCE WALLACE TO DRAW MORNING LABS WITH 0242 TIMED DRAW Performed By: #### L 500.2500, L100.0100 ####[facility] [address] [place], [address] Chloride [Moles/Vol] 108 mmol/L High 98-107 [facility] Comment on above: Order Comment: BRYCE WALLACE TO DRAW MORNING LABS WITH 0242 TIMED DRAW Performed By: #### L 500.2500, L100.0100 ####[facility] [address] [place], [address] CO2 [Moles/Vol] 24.0 mmol/L Normal 21.0-32.0 [facility] Comment on above: Order Comment: BRYCE WALLACE TO DRAW MORNING LABS WITH 0242 TIMED DRAW Performed By: #### L 500.2500, L100.0100 ####[facility] [address] [place], [address] Creatinine [Mass/Vol] 0.84 mg/dL Normal 0.55-1.02 [facility] Comment on above: Order Comment: BRYCE WALLACE TO DRAW MORNING LABS WITH 0242 TIMED DRAW Result Comment: The validity of the calculated GFR GFRAA in patients over 70 years has not been determined. Clinical correlation is essential. Performed By: #### L 500.2500, L100.0100 ####[facility] [address] [place], [address] ECRCL 69.12 ml/min Normal [facility] Comment on above: Order Comment: BRYCE WALLACE TO DRAW MORNING LABS WITH 0242 TIMED DRAW Performed By: #### L 500.2500, L100.0100 ####[facility] [address] [place], [address] EST GFR - AA 89 mL/min Normal >60 [facility] Comment on above: Order Comment: PER BRYCE WHITE TO DRAW MORNING LABS WITH 0242 TIMED DRAW Result Comment: Afri can Malawian GFR Calc Performed By: #### L 500.2500, L100.0100 ####[facility] [address] [place], [address] GAP 6 Normal 5-15 [facility] Comment on above: Order Comment: BRYCE WALLACE TO DRAW MORNING LABS WITH 0242 TIMED DRAW Performed By: #### L 500.2500, L100.0100 ####[facility] [address] [place], [address] GFR/1.73 sq M.predicted among non-blacks MDRD (S/P/Bld) [Vol rate/Area] 73 mL/min/{1.73_m2} Normal >60 [facility] Comment on above: Order Comment: BRYCE WALLACE TO DRAW MORNING LABS WITH 0242 TIMED DRAW Result Comment: Non- GFR Calc Performed By: #### L 500.2500, L100.0100 ####[facility] [address] [place], [address] Glucose [Mass/Vol] 111 mg/dL High 74-106 [facility] Comment on above: Order Comment: PER BRYCE WHITE TO DRAW MORNING LABS WITH 0242 TIMED DRAW Result Comment: Fast ing Glucose result from 100 to 125 mg/dL suggests IMPAIRED HOMEOSTASIS per A.D.A. criteria. Performed By: #### L 500.2500, L100.0100 ####[facility] [address] [place], [address] Potassium [Moles/Vol] 4.0 mmol/L Normal 3.5-5.1 [facility] Comment on above: Order Comment: BRYCE WALLACE TO DRAW MORNING LABS WITH 0242 TIMED DRAW Performed By: #### L 500.2500, L100.0100 ####[facility] [address] [place], [address] Sodium [Moles/Vol] 138 mmol/L Normal 136-145 [facility] Comment on above: Order Comment: BRYCE WALLACE TO DRAW MORNING LABS WITH 0242 TIMED DRAW Performed By: #### L 500.2500, L100.0100 ####[facility] [address] [place], [address] Urea nitrogen [Mass/Vol] 18 mg/dL Normal 7-18 [facility] Comment on above: Order Comment: BRYCE WALLACE TO DRAW MORNING LABS WITH 0242 TIMED DRAW Performed By: #### L 500.2500, L100.0100 ####[facility] [address] [place], [address] CBC W/Diff, Automatedon 08-0 2-4 Absolute Lymph 1.52 X10 3/uL Normal 0.83-4.51 [facility] Comment on above: Order Comment: BRYCE WALLACE TO DRAW MORNING LABS WITH 0242 TIMED DRAW Performed By: #### L 500.2500, L100.0100 ####[facility] [address] [place], [address] Absolute Neut 4.6 X10 3/uL Normal 2.0-7.7 [facility] Comment on above: Order Comment: BRYCE WALLACE TO DRAW MORNING LABS WITH 0242 TIMED DRAW Performed By: #### L 500.2500, L100.0100 ####[facility] [address] [place], [address] Basophils/100 WBC (Bld) 0.6 % Normal 0-1 [facility] Comment on above: Order Comment: BRYCE WALLACE TO DRAW MORNING LABS WITH 0242 TIMED DRAW Performed By: #### L 500.2500, L100.0100 ####[facility] [address] [place], [address] Eosinophils/100 WBC (Bld) 6.0 % High 0-5 [facility] Comment on above: Order Comment: BRYCE WALLACE TO DRAW MORNING LABS WITH 0242 TIMED DRAW Performed By: #### L 500.2500, L100.0100 ####[facility] [address] [place], [address] Erythrocyte distribution width (RBC) [Ratio] 12.9 % Normal 11.6-14.6 [facility] Comment on above: Order Comment: BRYCE WALLACE TO DRAW MORNING LABS WITH 0242 TIMED DRAW Performed By: #### L 500.2500, L100.0100 ####[facility] [address] [place], [address] Hematocrit (Bld) [Volume fraction] 39.5 % Normal 37-47 [facility] Comment on above: Order Comment: BRYCE WALLACE TO DRAW MORNING LABS WITH 0242 TIMED DRAW Performed By: #### L 500.2500, L100.0100 ####[facility] [address] [place], [address] Hemoglobin (Bld) [Mass/Vol] 12.9 g/dL Normal 12.0-15.0 [facility] Comment on above: Order Comment: BRYCE WALLACE TO DRAW MORNING LABS WITH 0242 TIMED DRAW Performed By: #### L 500.2500, L100.0100 ####[facility] [address] [place], [address] IG% 0.300 Normal 0.0-0.9 [facility] Comment on above: Order Comment: BRYCE WALLACE TO DRAW MORNING LABS WITH 0242 TIMED DRAW Result Comment: IG% - Immature Granulocytes (promyelocytes, myelocytes and metamyelocytes) > 1% indicates that a LEFT SHIFT is Present. Performed By: #### L 500.2500, L100.0100 ####[facility] [address] [place], [address] Lymphocytes/100 WBC (Bld) 21.1 % Normal 19-41 [facility] Comment on above: Order Comment: BRYCE WALLACE TO DRAW MORNING LABS WITH 0242 TIMED DRAW Performed By: #### L 500.2500, L100.0100 ####[facility] [address] [place], [address] MCH (RBC) [Entitic mass] 29.5 pg Normal 27.0-32.0 [facility] Comment on above: Order Comment: BRYCE WALLACE TO DRAW MORNING LABS WITH 0242 TIMED DRAW Performed By: #### L 500.2500, L100.0100 ####[facility] [address] [place], [address] MCHC (RBC) [Mass/Vol] 32.7 g/dL Normal 32-36 [facility] Comment on above: Order Comment: BRYCE WALLACE TO DRAW MORNING LABS WITH 0242 TIMED DRAW Performed By: #### L 500.2500, L100.0100 ####[facility] [address] [place], [address] MCV (RBC) [Entitic vol] 90.4 fL Normal 81-99 [facility] Comment on above: Order Comment: BRYCE WALLACE TO DRAW MORNING LABS WITH 0242 TIMED DRAW Performed By: #### L 500.2500, L100.0100 ####[facility] [address] [place], [address] Monocytes/100 WBC (Bld) 7.8 % Normal 0-10 [facility] Comment on above: Order Comment: BRYCE WALLACE TO DRAW MORNING LABS WITH 0242 TIMED DRAW Performed By: #### L 500.2500, L100.0100 ####[facility] [address] [place], [address] Neutrophils/100 WBC (Bld) 64.2 % Normal 47-70 [facility] Comment on above: Order Comment: BRYCE WALLACE TO DRAW MORNING LABS WITH 0242 TIMED DRAW Performed By: #### L 500.2500, L100.0100 ####[facility] [address] [place], [address] Nucleated RBC (Bld) [#/Vol] 0 10*3/uL Normal 0-5 [facility] Comment on above: Order Comment: BRYCE WALLACE TO DRAW MORNING LABS WITH 0242 TIMED DRAW Performed By: #### L 500.2500, L100.0100 ####[facility] [address] [place], [address] Platelet mean volume (Bld) [Entitic vol] 10.2 fL Normal 6.2-12.0 [facility] Comment on above: Order Comment: BRYCE WALLACE TO DRAW MORNING LABS WITH 0242 TIMED DRAW Performed By: #### L 500.2500, L100.0100 ####[facility] [address] [place], [address] Platelets (Bld) [#/Vol] 195 10*3/uL Normal 150-450 [facility] Comment on above: Order Comment: BRYCE WALLACE TO DRAW MORNING LABS WITH 0242 TIMED DRAW Performed By: #### L 500.2500, L100.0100 ####[facility] [address] [place], [address] RBC (Bld) [#/Vol] 4.37 10*6/uL Normal 4.2-5.4 [facility] Comment on above: Order Comment: BRYCE WALLACE TO DRAW MORNING LABS WITH 0242 TIMED DRAW Performed By: #### L 500.2500, L100.0100 ####[facility] [address] [place], [address] RDW SD 42.6 fl Normal 35.1-43.9 [facility] Comment on above: Order Comment: BRYCE WALLACE TO DRAW MORNING LABS WITH 0242 TIMED DRAW Performed By: #### L 500.2500, L100.0100 ####[facility] [address] [place], [address] WBC (Bld) [#/Vol] 7.2 10*3/uL Normal 4.4-11.0 [facility] Comment on above: Order Comment: BRYCE WALLACE TO DRAW MORNING LABS WITH 0242 TIMED DRAW Performed By: #### L 500.2500, L100.0100 ####[facility] [address] [place], [address] Partial Thromboplast Timeon 11-29-2023 aPTT Coag (Bld) [Time] 74.9 s High 24.1-36.2 [facility] Comment on above: Performed By: #### L 300.4310 ####[facility] [address] [place], [address] aPTT Coag (Bld) [Time] 85.0 s High 24.1-36.2 [facility] Comment on above: Performed By: #### L 300.4310 #### [facility] [address] [place], [address] aPTT Coag (Bld) [Time] 51.4 s High 24.1-36.2 [facility] Comment on above: Performed By: #### L 300.4310 ####[facility] [address] [place], [address] aPTT Coag (Bld) [Time] 45.3 s High 24.1-36.2 [facility] Comment on above: Performed By: #### L 300.4310 #### [facility] [address] [place], [address] Urine Cultureon 11-29-2023 URC Culture exhibits no growth. Normal [facility] Comment on above: Performed By: #### M 100.2200 ####[facility] [address] [place], [address] Basic Metabolic Profile (BMP )on 11-28-2023 BUN/CRE 23.9 RATIO High 10-20 [facility] Comment on above: Performed By: #### L 500.2500, L300.3900, L100.0100, L300.4310 #### [facility] [address] [place], [address] CA,Total 9.3 mg/dL Normal 8.5-10.1 [facility] Comment on above: Performed By: #### L 500.2500, L300.3900, L100.0100, L300.4310 #### [facility] [address] [place], [address] Chloride [Moles/Vol] 112 mmol/L High 98-107 [facility] Comment on above: Performed By: #### L 500.2500, L300.3900, L100.0100, L300.4310 #### [facility] [address] [place], [address] CO2 [Moles/Vol] 28.0 mmol/L Normal 21.0-32.0 [facility] Comment on above: Performed By: #### L 500.2500, L300.3900, L100.0100, L300.4310 #### [facility] [address] [place], [address] Creatinine [Mass/Vol] 0.84 mg/dL Normal 0.55-1.02 [facility] Comment on above: Result Comment: The validity of the calculated GFR GFRAA in patients over 70 years has not been determined. Clinical correlation is essential. Performed By: #### L 500.2500, L300.3900, L100.0100, L300.4310 #### [facility] [address] [place], [address] ECRCL 68.87 ml/min Normal [facility] Comment on above: Performed By: #### L 500.2500, L300.3900, L100.0100, L300.4310 #### [facility] [address] [place], [address] EST GFR - AA 90 mL/min Normal >60 [facility] Comment on above: Result Comment: Afri can Malawian GFR Calc Performed By: #### L 500.2500, L300.3900, L100.0100, L300.4310 #### [facility] [address] [place], [address] GAP 2 Low 5-15 [facility] Comment on above: Performed By: #### L 500.2500, L300.3900, L100.0100, L300.4310 #### [facility] [address] [place], [address] GFR/1.73 sq M.predicted among non-blacks MDRD (S/P/Bld) [Vol rate/Area] 74 mL/min/{1.73_m2} Normal >60 [facility] Comment on above: Result Comment: Non- GFR Calc Performed By: #### L 500.2500, L300.3900, L100.0100, L300.4310 #### [facility] [address] [place], [address] Glucose [Mass/Vol] 93 mg/dL Normal 74-106 [facility] Comment on above: Performed By: #### L 500.2500, L300.3900, L100.0100, L300.4310 #### [facility] [address] [place], [address] Potassium [Moles/Vol] 4.1 mmol/L Normal 3.5-5.1 [facility] Comment on above: Performed By: #### L 500.2500, L300.3900, L100.0100, L300.4310 #### [facility] [address] [place], [address] Sodium [Moles/Vol] 142 mmol/L Normal 136-145 [facility] Comment on above: Performed By: #### L 500.2500, L300.3900, L100.0100, L300.4310 #### [facility] [address] [place], [address] Urea nitrogen [Mass/Vol] 20 mg/dL High 7-18 [facility] Comment on above: Performed By: #### L 500.2500, L300.3900, L100.0100, L300.4310 #### [facility] [address] [place], [address] CBC W/Diff, Automatedon 08-0 -2023 Absolute Lymph 1.10 X10 3/uL Normal 0.83-4.51 [facility] Comment on above: Performed By: #### L 500.2500, L300.3900, L100.0100, L300.4310 #### [facility] [address] [place], [address] Absolute Neut 5.5 X10 3/uL Normal 2.0-7.7 [facility] Comment on above: Performed By: #### L 500.2500, L300.3900, L100.0100, L300.4310 #### [facility] [address] [place], [address] Basophils/100 WBC (Bld) 0.5 % Normal 0-1 [facility] Comment on above: Performed By: #### L 500.2500, L300.3900, L100.0100, L300.4310 #### [facility] [address] [place], [address] Eosinophils/100 WBC (Bld) 6.4 % High 0-5 [facility] Comment on above: Performed By: #### L 500.2500, L300.3900, L100.0100, L300.4310 #### [facility] [address] [place], [address] Erythrocyte distribution width (RBC) [Ratio] 12.8 % Normal 11.6-14.6 [facility] Comment on above: Performed By: #### L 500.2500, L300.3900, L100.0100, L300.4310 #### [facility] [address] [place], [address] Hematocrit (Bld) [Volume fraction] 43.0 % Normal 37-47 [facility] Comment on above: Performed By: #### L 500.2500, L300.3900, L100.0100, L300.4310 #### [facility] [address] [place], [address] Hemoglobin (Bld) [Mass/Vol] 14.1 g/dL Normal 12.0-15.0 [facility] Comment on above: Performed By: #### L 500.2500, L300.3900, L100.0100, L300.4310 #### [facility] [address] [place], [address] IG% 0.400 Normal 0.0-0.9 [facility] Comment on above: Result Comment: IG% - Immature Granulocytes (promyelocytes, myelocytes and metamyelocytes) > 1% indicates that a LEFT SHIFT is Present. Performed By: #### L 500.2500, L300.3900, L100.0100, L300.4310 #### [facility] [address] [place], [address] Lymphocytes/100 WBC (Bld) 14.3 % Low 19-41 [facility] Comment on above: Performed By: #### L 500.2500, L300.3900, L100.0100, L300.4310 #### [facility] [address] [place], [address] MCH (RBC) [Entitic mass] 29.9 pg Normal 27.0-32.0 [facility] Comment on above: Performed By: #### L 500.2500, L300.3900, L100.0100, L300.4310 #### [facility] [address] [place], [address] MCHC (RBC) [Mass/Vol] 32.8 g/dL Normal 32-36 [facility] Comment on above: Performed By: #### L 500.2500, L300.3900, L100.0100, L300.4310 #### [facility] [address] [place], [address] MCV (RBC) [Entitic vol] 91.1 fL Normal 81-99 [facility] Comment on above: Performed By: #### L 500.2500, L300.3900, L100.0100, L300.4310 #### [facility] [address] [place], [address] Monocytes/100 WBC (Bld) 6.4 % Normal 0-10 [facility] Comment on above: Performed By: #### L 500.2500, L300.3900, L100.0100, L300.4310 #### [facility] [address] [place], [address] Neutrophils/100 WBC (Bld) 72.0 % High 47-70 [facility] Comment on above: Performed By: #### L 500.2500, L300.3900, L100.0100, L300.4310 #### [facility] [address] [place], [address] Nucleated RBC (Bld) [#/Vol] 0 10*3/uL Normal 0-5 [facility] Comment on above: Performed By: #### L 500.2500, L300.3900, L100.0100, L300.4310 #### [facility] [address] [place], [address] Platelet mean volume (Bld) [Entitic vol] 9.6 fL Normal 6.2-12.0 [facility] Comment on above: Performed By: #### L 500.2500, L300.3900, L100.0100, L300.4310 #### [facility] [address] [place], [address] Platelets (Bld) [#/Vol] 211 10*3/uL Normal 150-450 [facility] Comment on above: Performed By: #### L 500.2500, L300.3900, L100.0100, L300.4310 #### [facility] [address] [place], [address] RBC (Bld) [#/Vol] 4.72 10*6/uL Normal 4.2-5.4 [facility] Comment on above: Performed By: #### L 500.2500, L300.3900, L100.0100, L300.4310 #### [facility] [address] [place], [address] RDW SD 43.0 fl Normal 35.1-43.9 [facility] Comment on above: Performed By: #### L 500.2500, L300.3900, L100.0100, L300.4310 #### [facility] [address] [place], [address] WBC (Bld) [#/Vol] 7.7 10*3/uL Normal 4.4-11.0 [facility] Comment on above: Performed By: #### L 500.2500, L300.3900, L100.0100, L300.4310 #### [facility] [address] [place], [address] Consultation - Surgicalon Consultation - Surgical [facility] Medical Records Department [address] [place] [address] Consultation - Surgical 11/28/23 1719 MR#: [id number] Acct: [id number] Name: KAROLINA AHN Rep #: [id number] : 1965 58 From: Martine KU PCP: Dr. Jimbo Dash MD Status:ADM IN Location: [place] [id number] Assessment Plan Assessment/Plan (1) Acute DVT (deep venous thrombosis): PLAN: She has extensive LLE DVT up to the level of the CIV, she is a candidate for thrombectomy. Will plan for venogram with thrombectomy, anticipate Saturday pending lab asst availability. The procedure details including risks, benefits, and recovery were discussed and she is agreeable to proceed. Continue heparin drip. Elevate LLE above the level of the heart at times of rest, okay to ambulate as tolerated. HPI Consult Data Date of Consult: 11/28/23 HPI Narrative HPI Narrative: KAROLINA AHN, is a 58 F who presented to the [facility] ER today with significant LLE pain and swelling. She reports that on Saturday she did trip and fall, but she didn't have any injury and was able to go about her usual activities following this. The last night she noticed some LLE discomfort and swelling and by this morning both were significantly worse and continued to worsen through the day leading her to the ER. She had a venous duplex which revealed significant LLE thrombus burden up to the CIV. She had significant discomfort requiring morphine so she was admitted with heparin drip. Patient is an established office patient. Recall that she has a history of recurrent RLE infrapopliteal DVT (provoked gastroc 2014, unprovoked PT 2016) for which she was on indefinite anticoagulation for several years. She was tested for Factor V which was negative, denies other hypercoagulable testing. She also had symptomatic varicose veins. 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 Following this, she was placed on DAPT with ASA and Plavix in addition to her Eliquis. It was felt that the central venous compression was the most likely source for her prior unprovoked DVT; therefore, her Eliquis was stopped about 6 months ago. After completing 1 year of DAPT, her Plavix was stopped about 1 week ago. Following the iliac vein stenting, she'd had significant improvement in her varicose vein related symptoms and to this point had not had any recurrent DVT or leg swelling/pain. [facility] Medical History Loss of hearing Wears glasses Arthritis Bladder disease DVT (deep venous thrombosis) Restless legs Difficulty swallowing Gastric reflux Non-smoker Leg cramps History of pain when walking History of echocardiogram History of stress test Anxiety Anemia Home Medications ???Medication ???Instructions ???Recorded ???Last Taken ???Type sertraline 100 mg tablet 50 mg PO BID anxiety 03/30/14 02/14/22 History Cholecalciferol (Vitamin D3) 5,000 unit PO DAILY supplement 03/07/20 02/14/22 History [Vitamin D3] cyanocobalamin (vitamin B-12) 3,000 mcg PO DAILY supplement 03/07/20 02/14/22 History 5,000 mcg disintegrating tablet omeprazole 20 mg tablet,delayed 20 mg PO QHS reflux 03/07/20 02/14/22 History release pitavastatin calcium 2 mg tablet 2 mg PO QPM 02/08/22 02/14/22 History (Livalo) cetirizine 10 mg capsule (Zyrtec) 10 mg PO DAILY 04/12/22 Unknown History dicyclomine 20 mg tablet 20 mg PO BID 10/02/22 Unknown History alendronate 70 mg tablet 70 mg PO QWEEK 11/28/23 Unknown History Allergy/AdvReac Type Severity Reaction Status Date / Time hydrocodone (From Vicodin) Allergy Nausea/Vom/ Verified 11/19/23 11:49 Diarrhea oxycodone AdvReac Itching Verified 11/19/23 11:49 Family History Mother Colon cancer Cancer ovary Diabetes Father Hypertension Surgical History Hx of bladder repair surgery Hx of cystoscopy Hx of shoulder surgery Hx of colonoscopy S/P rotator cuff repair S/P bunionectomy S/p bilateral carpal tunnel release S/P cholecystectomy S/P hysterectomy Social History Smoking Status: Never smoker alcohol intake: never Physical Exam Const alert, oriented x3, no apparent distress and average body habitus General Appearance: cooperative HEENT normocephalic, head/scalp atraumatic, hearing grossly normal bilaterally, external ears normal and external nose normal Eyes EOMs intact bilaterally General Eye: normal appearance of both eyes Neck General: normal visual inspection and trachea midline Resp normal respiratory effort Effort and Inspection: able to speak in complete sentences Cardio regular r (more content not included)... Normal [facility] Emergency Department Summary on 11-28-2023 Emergency Department Summary [facility] Medical Records Department [address] [place] [address] Emergency Department Summary 11/28/23 MR#: [id number] Acct: [id number] Name: KAROLINA AHN Rep #: [id number] : 1965 58 From: Addison Rodríguez DO PCP: Dr. Jimbo Dash MD Status:REG ER Location: ED HPI History of Present Illness Chief Complaint: Lower Extremity Injury Narrative Narrative: Patient is a 58-year-old female with past medical history of GERD, DVT recently discontinued Plavix and has been off Eliquis for several months now, anxiety, anemia who presented to the emergency department with chief complaint of left leg pain and swelling. Patient states that yesterday she noted that her right leg was swelling mildly however noted that today the swelling worsened and she was having groin pain associated with this as well. She states that once again she had recently been taken off her Plavix by her doctor and has been off Eliquis now for few months which was discontinued by her physician as well. She states that her mother has a history of getting several blood clots she states that she has been tested for factor V by her primary care physician but denies any other testing for hypercoagulable states. [facility] Medical History Loss of hearing Wears glasses Arthritis Bladder disease DVT (deep venous thrombosis) Restless legs Difficulty swallowing Gastric reflux Non-smoker Leg cramps History of pain when walking History of echocardiogram History of stress test Anxiety Anemia Home Medications ???Medication ???Instructions ???Recorded ???Last Taken ???Type sertraline 100 mg tablet 50 mg PO BID anxiety 03/30/14 02/14/22 History Cholecalciferol (Vitamin D3) 5,000 unit PO DAILY supplement 03/07/20 02/14/22 History [Vitamin D3] cyanocobalamin (vitamin B-12) 3,000 mcg PO DAILY supplement 03/07/20 02/14/22 History 5,000 mcg disintegrating tablet omeprazole 20 mg tablet,delayed 20 mg PO QHS reflux 03/07/20 02/14/22 History release pitavastatin calcium 2 mg tablet 2 mg PO QPM 02/08/22 02/14/22 History (Livalo) cetirizine 10 mg capsule (Zyrtec) 10 mg PO DAILY 04/12/22 Unknown History dicyclomine 20 mg tablet 20 mg PO BID 10/02/22 Unknown History alendronate 70 mg tablet 70 mg PO QWEEK 11/28/23 Unknown History Allergy/AdvReac Type Severity Reaction Status Date / Time hydrocodone (From Vicodin) Allergy Nausea/Vom/ Verified 11/19/23 11:49 Diarrhea oxycodone AdvReac Itching Verified 11/19/23 11:49 Family History Mother Colon cancer Cancer ovary Diabetes Father Hypertension Surgical History Hx of bladder repair surgery Hx of cystoscopy Hx of shoulder surgery Hx of colonoscopy S/P rotator cuff repair S/P bunionectomy S/p bilateral carpal tunnel release S/P cholecystectomy S/P hysterectomy Social History Smoking Status: Never smoker alcohol intake: never ROS ROS ED ROS Narrative constitutional: Denies any fevers, chills, headaches, Eric, dizziness Eyes: Denies change in vision or any blurry vision Cardiovascular: Denies chest pain or palpitations Respiratory: Denies coughing wheezing shortness of breath Abdomen: Denies abdominal pain : Denies any pain formation, hematuria, polyuria Neurological: Denies numbness, weakness, tingling Musculoskeletal: Complains of left lower extremity swelling as noted above and groin pain Skin: Denies rashes or lesions EXAM Physical Exam Narrative Exam Narrative: general: Patient lying in bed rest comfortably did not appear to be in acute distress Head: Atraumatic, normocephalic Eyes: PERRL bilaterally, EOMI bilaterally, no conjunctival injection noted Neck: Soft, supple, trachea midline Cardiovascular: Patient tachycardic with a regular rhythm no murmurs gallops rubs noted Respiratory: Clear to auscultation bilaterally no rales rhonchi wheeze noted Abdomen: Soft, nondistended, no tenderness palpation Musculoskeletal: Patient's left lower extremity is swollen diffusely, compartments soft and compressible no concern for compartment syndrome Extremities: DP pulses +2/4 in the bilateral lower extremities, no pedal edema on exam, patient's left lower extremity is significantly more swollen when compared to right Neurological: Patient following commands knew that she was at [facility] year is 2023. Sensation grossly intact in bilateral lower extremities Skin: Warm, dry, intact no rashes or lesions noted Const Vital Signs: 11/28/23 12:38 11/28/23 15:00 11/28/23 15:00 Temperature 96.2 F L 97.8 F 97.8 F Temperature Source Temporal Temporal Pulse Rate 1 (more content not included)... Normal [facility] H AND P Exam - [facility] 11-28-2023 H&P Exam - Hospitalist [facility] Medical Records Department [address] [place] [id number] H P Exam - Hospitalist 11/28/23 1513 MR#: [id number] Acct: [id number] Name: KAROLINA AHN Rep #: [id number] : 1965 58 From: Carole Bower MD PCP: Dr. Jimbo Dash MD Status:REG ER Location: ED HPI - General General Date of Admission: 11/28/23 Date of Service: 11/28/23 Chief Complaint: Left leg pain and swelling HPI Narrative KAROLINA AHN is a 58 F with history of GERD, bilateral iliac vein stents, DVT in 2014 who presented to [facility] ED 11/28/2023 with increasing left lower extremity swelling. Patient presented to the emergency department and was found to have extensive left lower extremity DVT and she was started on heparin drip and vascular contacted. Additionally she had urinary frequency and burning so UA obtained and she was started on Rocephin. Due to the increasing swelling and pain hospitalist contacted for admission and vascular consultation. Patient evaluated at bedside and reports that last DVT was in 2014 and she was on Eliquis for a number of years but eventually was taken off, had bilateral iliac vein stents in 2022 and was on Plavix for a period of time but is since just been on aspirin, has had no concerns or complaints until the past day and a half with increased swelling and pain on the leg, patient denies any immobility and has been up moving around with work, did have a fall on Saturday where she hit her right leg but has not affected her mobility denies any left extremity injury. No shortness of breath or respiratory complaints. Additionally patient has had frequency and burning and suprapubic discomfort over the past several days and was supposed to have a outpatient UA done for possible UTI, slight headache but otherwise ROS negative [facility] Medical History (Updated 11/28/23 @ 15:[address] Carole Bower MD) Anemia Anxiety Arthritis Bladder disease Difficulty swallowing DVT (deep venous thrombosis) Gastric reflux History of echocardiogram History of pain when walking History of stress test Leg cramps Loss of hearing Non-smoker Restless legs Wears glasses Home Medications ???Medication ???Instructions ???Recorded ???Last Taken ???Type sertraline 100 mg tablet 50 mg PO BID anxiety 03/30/14 02/14/22 History Cholecalciferol (Vitamin D3) 5,000 unit PO DAILY supplement 03/07/20 02/14/22 History [Vitamin D3] cyanocobalamin (vitamin B-12) 3,000 mcg PO DAILY supplement 03/07/20 02/14/22 History 5,000 mcg disintegrating tablet omeprazole 20 mg tablet,delayed 20 mg PO QHS reflux 03/07/20 02/14/22 History release pitavastatin calcium 2 mg tablet 2 mg PO QPM 02/08/22 02/14/22 History (Livalo) cetirizine 10 mg capsule (Zyrtec) 10 mg PO DAILY 04/12/22 Unknown History dicyclomine 20 mg tablet 20 mg PO BID 10/02/22 Unknown History alendronate 70 mg tablet 70 mg PO QWEEK 11/28/23 Unknown History Allergy/AdvReac Type Severity Reaction Status Date / Time hydrocodone (From Vicodin) Allergy Nausea/Vom/ Verified 11/19/23 11:49 Diarrhea oxycodone AdvReac Itching Verified 11/19/23 11:49 Family History Mother Colon cancer Cancer ovary Diabetes Father Hypertension Surgical History Hx of bladder repair surgery Hx of colonoscopy Hx of cystoscopy Hx of shoulder surgery S/p bilateral carpal tunnel release S/P bunionectomy S/P cholecystectomy S/P hysterectomy S/P rotator cuff repair Social History Smoking Status: Never smoker alcohol intake: never ROS ROS Narrative General: Denies fever/chills HENT: Slight headache, denies stuffy nose, denies sore throat EYES: Denies changes in vision Resp: Denies cough, denies shortness of breath Cardiac: Denies chest pain GI: Denies abdominal pain, denies changes in bowel, denies nausea/vomiting : Suprapubic pressure, frequency, burning Extremity: Left lower extremity increased swelling and discomfort MSK: Denies weakness Neuro: Denies any numbness/tingling Heme: Denies any bleeding or bruising Skin: Denies rashes Psychiatric: No complaints voiced Vital Signs Vital Signs Vital Signs: 11/28/23 12:38 11/28/23 15:00 11/28/23 15:00 Temperature 96.2 F L 97.8 F 97.8 F Temperature Source Temporal Temporal Pulse Rate 103 H 81 81 Respiratory Rate 16 17 17 Blood Pressure 126/86 H 105/74 105/74 Blood Pressure Mean 99 84 84 Pulse Ox 96 95 95 Oxygen Delivery Method Room Air Room Air Weight Weight: 67.358 kg Body Mass Index (BMI) 25.4 Physical Exam Narrative General: Alert, oriented, no apparent distress HEENT: Atraumatic, normocephalic Eyes: Anicteric, (more content not included)... Normal [facility] Partial Thromboplast Timeon 11-28-2023 aPTT Coag (Bld) [Time] 105.7 s Invalid Interpretation Code 24.1-36.2 [facility] Comment on above: Result Comment: CRIT ICAL VALUE VERIFIED. CALLED TO [facility] 11/28/232034 Rema Ambriz. RESULTS READ BACK BY SAME . Performed By: #### L 300.4310 #### [facility] [address] [place], [address] aPTT Coag (Bld) [Time] 26.5 s Normal 24.1-36.2 [facility] Comment on above: Performed By: #### L 500.2500, L300.3900, L100.0100, L300.4310 ####[facility] [address] [place], [address] Prothrombin Time w/INRon INR Normal [facility] Comment on above: Result Comment: @DUP LICATE Performed By: #### L 300.3900 ####[facility] [address] [place], [address] PROTIME Normal 11.7-14.9 [facility] Comment on above: Result Comment: @DUP LICATE Performed By: #### L 300.3900 ####[facility] [address] [place], [address] INR Coag (PPP) [Relative time] 0.9 {INR} Normal [facility] Comment on above: Performed By: #### L 500.2500, L300.3900, L100.0100, L300.4310 ####[facility] [address] [place], [address] PT Coag (PPP) [Time] 12.5 s Normal 11.7-14.9 [facility] Comment on above: Performed By: #### L 500.2500, L300.3900, L100.0100, L300.4310 ####[facility] [address] [place], [address] Urinalysis, Completeon 11-27 CA OX CRYSTAL 1+ /hpf Normal [facility] Comment on above: Order Comment: CLEAN CATCH Performed By: #### L 300.4310 #### [facility] [address] [place], [address] WBC 50-100 SEEN Normal 0-5 [facility] Comment on above: Order Comment: CLEAN CATCH Performed By: #### L 300.4310 #### [facility] [address] [place], [address] BACTERIA 2+ /hpf Normal None Seen [facility] Comment on above: Order Comment: CLEAN CATCH Performed By: #### L 300.4310 #### [facility] [address] [place], [address] EPI,SQUAMOUS 5-10 SEEN Normal 5-10 [facility] Comment on above: Order Comment: CLEAN CATCH Performed By: #### L 300.4310 #### [facility] [address] [place], [address] Mucus Ql (Urine sed) 2+ /hpf Normal [facility] Comment on above: Order Comment: CLEAN CATCH Performed By: #### L 300.4310 #### [facility] [address] [place], [address] RBC 0 SEEN Normal 0-5 [facility] Comment on above: Order Comment: CLEAN CATCH Performed By: #### L 300.4310 #### [facility] [address] [place], [address] Venous Duplex US, Unilateral on 11-28-2023 Venous Duplex US, Unilateral [facility] [address] [place] [address] Venous Duplex US, Unilateral 11/28/23 1347 MR#: [id number] Acct: [id number] Name: KAROLINA AHN Rep #: [id number] : 1965 58 From: Reji Goldberg MD Attending Dr: Status: REG ER Ordering Dr: Addison Rodríguez DO Date: 11/28/23 Location: ED Sex: F C Admitted: Reason For Study: LLE Swelling RIGHT LEFT CFV is compressible, spontaneous, phasic, Dist IVC appears spontaneous and patent. competent and demonstrates normal Acute deep vein thrombosis is noted in the augmentation. CIV. It is dilated and NONCOMPRESSIBLE. Stent Procedure Noted. This is a venous duplex using B-mode, color Acute deep vein thrombosis is noted in the flow and spectral Doppler. EIV. It is dilated and NONCOMPRESSIBLE. Exam performed in department. Acute deep vein thrombosis is noted in the The exam was diagnostic. CFV. It is dilated and NONCOMPRESSIBLE. A preliminary report was called and/or faxed Acute deep vein thrombosis is noted in the to Dr. Rodríguez in the ED. FV. It is dilated and NONCOMPRESSIBLE. Acute deep vein thrombosis is noted in the DEEP FV. It is dilated and NONCOMPRESSIBLE. Acute deep vein thrombosis is noted in the POP V. It is dilated and NONCOMPRESSIBLE. Acute deep vein thrombosis is noted in the Gastrocnemius V. It is dilated and NONCOMPRESSIBLE. Acute deep vein thrombosis is noted in the T/P Trunk. It is dilated and NONCOMPRESSIBLE. Acute deep vein thrombosis is noted in the Soleal Vein. It is dilated and NONCOMPRESSIBLE. Acute deep vein thrombosis is noted in the PTV. It is dilated and NONCOMPRESSIBLE. Acute deep vein thrombosis is noted in the Per V. It is dilated and NONCOMPRESSIBLE. Acute superficial vein thrombosis is noted in the GSV prox thigh toSFJ. It is dilated and NONCOMPRESSIBLE. GSV appears compressible ankle to mid thigh. VL/Venous Duplex US, Unilateral Interpretation Summary Acute deep vein thrombosis is noted in the left common iliac vein, external iliac vein, common femoral vein, femoral vein, profunda femoral vein, popliteal vein, gastrocnemius vein, tibioperoneal trunk vein, soleal vein, posterior tibial vein, peroneal vein. Acute superficial vein thrombosis noted in the great saphenous vein in the thigh. __ Ordering Physician: Addison Rodríguez Referring Physician: Jimbo Dash Performed By: River Leblanc RVT 11/28/23 1426 Date Reji Goldberg MD CC: Dr. Jimbo Dash MD; Dr. Addison Rodríguez, Date Dictated: 11/28/23 1347 Date Transcribed: 11/28/23 142 Yarn Dumper: Signed [facility] MR/BMS.BVSon 11-19-2023 MR/BMS.S [facility] [address] [place] [address] OFFICE VISIT Date of Service: 11/19/23 MR#: [id number] Acct: [id number] Name: KAROLINA AHN Rep #: [id number] : 1965 Provider: KINGS Sidhu Age/Sex: 58/F Location: [facility] Status: Signed Intake Vital Signs 09/12/23 12:55 11/19/23 11:48 Height 5 ft 4 in Weight: 145 lb 145 lb BMI 24.9 BP 102/68 117/69 Blood Pressure Location Lt brachial Lt brachial Position Sitting Sitting Respiration 16 16 Pulse 87 72 Pulse Source Monitor Monitor Temp 98.4 F 97.3 F L Temp Source Temporal Temporal Pulse Oximetry (%) 97 95 Oxygen Delivery Method room air room air Intake Visit Reasons: 1 Y F/U RESULTS Chief Complaint: CONCERNS FOR SINUS INFECTION Is patient in pain?: No Allergies hydrocodone (From Vicodin) Allergy (Verified 11/19/23 11:49) Nausea/Vom/Diarrhea oxycodone Adverse Reaction (Verified 11/19/23 11:49) Itching Medications ???Medication ???Instructions ???Recorded ???Confirmed ???Type sertraline 100 mg tablet 50 mg PO BID anxiety 03/30/14 11/19/23 History Cholecalciferol (Vitamin D3) 5,000 unit PO DAILY supplement 03/07/20 11/19/23 History [Vitamin D3] cyanocobalamin (vitamin B-12) 3,000 mcg PO DAILY supplement 03/07/20 11/19/23 History 5,000 mcg disintegrating tablet omeprazole 20 mg tablet,delayed 20 mg PO QHS reflux 03/07/20 11/19/23 History release pitavastatin calcium 2 mg tablet 2 mg PO QPM 02/08/22 11/19/23 History (Livalo) calcium carbonate 600 mg PO BID 04/12/22 11/19/23 History cetirizine 10 mg capsule (Zyrtec) 10 mg PO DAILY 04/12/22 11/19/23 History penciclovir 1 % topical cream 1 applic topical Q2H 04/12/22 11/19/23 History (Denavir) dicyclomine 20 mg tablet 20 mg PO BID 10/02/22 11/19/23 History clopidogrel 75 mg tablet (Plavix) 75 mg PO DAILY #90 tabs 10/03/22 11/19/23 Rx PFSH Medical History Loss of hearing Wears glasses Arthritis Bladder disease DVT (deep venous thrombosis) Restless legs Difficulty swallowing Gastric reflux Non-smoker Leg cramps History of pain when walking History of echocardiogram History of stress test Anxiety Anemia Surgical History Hx of bladder repair surgery Hx of cystoscopy Hx of shoulder surgery Hx of colonoscopy S/P rotator cuff repair S/P bunionectomy S/p bilateral carpal tunnel release S/P cholecystectomy S/P hysterectomy Family History Mother Colon cancer Cancer ovary Diabetes Father Hypertension Social History Smoking Status: Never smoker alcohol intake: never HPI HPI HPI: KAROLINA AHN, is a 58 F who presents to the office today for one year follow-up from bilateral iliac vein stenting on 10/04/22. She reports that she has been doing very well. Her lower extremity varicose veins symptoms remain significantly improved. She remains content with the results of this procedure. She has continued to take Plavix as prescribed without issue. After last OV did discuss with her PCP and ended up stopping Eliquis. She has not had any new lower extremity swelling, pain, redness. She has no concerns today. ROS General General: No weight change, appetite, fatigue, colon cancer, breast cancer or weakness HEENT HEENT: No difficulty swallowing, eye injury, eye surgery, swollen glands or hoarseness Endo Endocrine: No thyroid disease, diabetes mellitus, thyroid cancer, Hair loss, heat intolerance or cold intolerance Skin Skin: No rash or changing moles Musc Musculoskeletal: No back problems, arthritis, rheumatoid arthritis, gout or joint pain Cardio Cardiovascular: No murmur, pacemaker, heart disease, atrial fibrillation, high blood pressure, heart attack, heart stent, palpitations, shortness of breat with exertion or chest pain Psych Psychiatric: Yes anxiety; No depression or hearing voices Resp Respiratory: No shortness of breath, No sleep apnea, No cough, No COPD, No asthma, No emphysema and No wheezing Gastro Gastrointestinal: No abdominal pain, No nausea or vomiting, No diarrhea, No constipation, No blood in stool, No acid reflux, No hemorrhoids, No ulcers, No gallbladder problem and No black,tarry stools Fito Hematologic: Yes blood thinners, No blood disorders, No bleeding, No anemia and Yes blood clots Neuro Neurologic: No system reviewed and no additional complaints, except as documented, No as per HPI, No abnormal gait, No abnormal hearing, No abnormal movements, No abnormal speech, No behavioral changes, No burning sensations, No confusion, No convulsions, No disequilibrium, (more content not included)... Normal [facility] Comprehensive Metabolic Prof tobias 11-14-2023 Albumin [Mass/Vol] 3.6 g/dL Normal 3.2-5.0 [facility] Comment on above: Performed By: #### L 500.4050, L500.4100 ####[facility] [address] [place], [address] Albumin/Globulin [Mass ratio] 1.0 {ratio} Normal 0.9-2.4 [facility] Comment on above: Performed By: #### L 500.4050, L500.4100 ####[facility] [address] [place], [address] ALK P 133 U/L High 45-117 [facility] Comment on above: Performed By: #### L 500.4050, L500.4100 ####[facility] [address] [place], [address] ALT [Catalytic activity/Vol] 32 U/L Normal 13-56 [facility] Comment on above: Performed By: #### L 500.4050, L500.4100 ####[facility] [address] [place], [address] AST [Catalytic activity/Vol] 20 U/L Normal 15-37 [facility] Comment on above: Performed By: #### L 500.4050, L500.4100 ####[facility] [address] [place], [address] Bilirubin [Mass/Vol] 0.60 mg/dL Normal 0.20-1.00 [facility] Comment on above: Result Comment: For patients on eltrombopag therapy, use of Dimension [place] TBIL is not recommended. Performed By: #### L 500.4050, L500.4100 ####[facility] [address] [place], [address] BUN/CRE 22.8 RATIO High 10-20 [facility] Comment on above: Performed By: #### L 500.4050, L500.4100 ####[facility] [address] [place], [address] CA,Total 9.4 mg/dL Normal 8.5-10.1 [facility] Comment on above: Performed By: #### L 500.4050, L500.4100 ####[facility] [address] [place], [address] Chloride [Moles/Vol] 106 mmol/L Normal 98-107 [facility] Comment on above: Performed By: #### L 500.4050, L500.4100 ####[facility] [address] [place], [address] CO2 [Moles/Vol] 28.0 mmol/L Normal 21.0-32.0 [facility] Comment on above: Performed By: #### L 500.4050, L500.4100 ####[facility] [address] [place], [address] Creatinine [Mass/Vol] 0.83 mg/dL Normal 0.55-1.02 [facility] Comment on above: Result Comment: The validity of the calculated GFR GFRAA in patients over 70 years has not been determined. Clinical correlation is essential. Performed By: #### L 500.4050, L500.4100 ####[facility] [address] [place], [address] EST GFR - AA 90 mL/min Normal >60 [facility] Comment on above: Result Comment: Afri can [place] GFR Calc Performed By: #### L 500.4050, L500.4100 ####[facility] [address] [place], [address] GAP 5 Normal 5-15 [facility] Comment on above: Performed By: #### L 500.4050, L500.4100 ####[facility] [address] [place], [address] GFR/1.73 sq M.predicted among non-blacks MDRD (S/P/Bld) [Vol rate/Area] 75 mL/min/{1.73_m2} Normal >60 [facility] Comment on above: Result Comment: Non- GFR Calc Performed By: #### L 500.4050, L500.4100 ####[facility] [address] [place], [address] Globulin (S) [Mass/Vol] 3.6 g/dL Normal 2.2-4.2 [facility] Comment on above: Performed By: #### L 500.4050, L500.4100 ####[facility] [address] [place], [address] Glucose [Mass/Vol] 102 mg/dL Normal 74-106 [facility] Comment on above: Result Comment: Fast ing Glucose result from 100 to 125 mg/dL suggests IMPAIRED HOMEOSTASIS per A.D.A. criteria. Performed By: #### L 500.4050, L500.4100 ####[facility] [address] [place], [address] Potassium [Moles/Vol] 3.8 mmol/L Normal 3.5-5.1 [facility] Comment on above: Performed By: #### L 500.4050, L500.4100 ####[facility] [address] [place], [address] Sodium [Moles/Vol] 139 mmol/L Normal 136-145 [facility] Comment on above: Performed By: #### L 500.4050, L500.4100 ####[facility] [address] [place], [address] T PROT 7.2 g/dL Normal 6.4-8.2 [facility] Comment on above: Performed By: #### L 500.4050, L500.4100 ####[facility] [address] [place], [address] Urea nitrogen [Mass/Vol] 19 mg/dL High 7-18 [facility] Comment on above: Performed By: #### L 500.4050, L500.4100 ####[facility] [address] [place], [address] Lipid Profileon 11-14-2023 Cholesterol [Mass/Vol] 204 mg/dL High 200 [facility] Comment on above: Result Comment: <200 mg/dL Desirable 200-240 mg/dL Borderline >240 mg/dL High Risk Performed By: #### L 500.4050, L500.4100 ####[facility] [address] [place], [address] Cholesterol in HDL [Mass/Vol] 69 mg/dL Normal [facility] Comment on above: Result Comment: The drugs N-Acetylcysteine and Metamizole may falsely depress this assay. Reference Range HDL <40 mg/dL Low HDL Cholesterol HDL >or= 60 mg/dL High HDL Cholesterol Performed By: #### L 500.4050, L500.4100 ####[facility] [address] [place], [address] Cholesterol in LDL [Mass/Vol] 109 mg/dL Normal 0-130 [facility] Comment on above: Performed By: #### L 500.4050, L500.4100 ####[facility] [address] [place], [address] Cholesterol in VLDL [Mass/Vol] 26 mg/dL Normal 5-40 [facility] Comment on above: Performed By: #### L 500.4050, L500.4100 ####[facility] [address] [place], [address] Triglyceride [Mass/Vol] 128 mg/dL Normal [facility] Comment on above: Result Comment: The drugs N-Acetylcysteine and Metamizole may falsely depress this assay. Serum Triglycerides Reference Interval Normal <150 mg/dL Borderline high 150 - 199 mg/dL High 200 - 499 mg/dL Very High > or = 500 mg/dL Performed By: #### L 500.4050, L500.4100 ####[facility] [address] [place], [address] Basophil percentageOrdered B y: Jimbo Dash on 06-10-2023 Bilirubin [Mass/Vol] 0.60 mg/dL 0.20-1.00 [facility] Comment on above: For patients on eltr ombopag therapy, use of Dimension [place] TBIL is not recommended. Chloride [Moles/Vol] 109 mmol/L 98-107 [facility] Cholesterol [Mass/Vol] 234 mg/dL <200 [facility] Comment on above: <200 mg/dL Desirable 200-240 mg/dL Borderline >240 mg/dL High Risk Glucose [Mass/Vol] 88 mg/dL 74-106 [facility] Potassium [Moles/Vol] 4.3 mmol/L 3.5-5.1 [facility] Protein [Mass/Vol] 7.2 g/dL 6.4-8.2 [facility] Sodium [Moles/Vol] 140 mmol/L 136-145 [facility] Triglyceride [Mass/Vol] 127 mg/dL <199 [facility] Comment on above: The drugs N-Acetylcy steine and Metamizole may falsely depress this assay.Serum Triglycerides Reference Interval Normal <150 mg/dL Borderline high 150 - 199 mg/dL High 200 - 499 mg/dL Very High > or = 500 mg/dL Laboratory - Chemistry and C hemistry - challengeOrdered By: Jimbo Dash on 06-10-2023 Albumin/Globulin [Mass ratio] 1.1 {ratio} 0.9-2.4 [facility] ALP [Catalytic activity/Vol] 130 U/L 45-117 [facility] ALT [Catalytic activity/Vol] 34 U/L 13-56 [facility] Cholesterol in HDL [Mass/Vol] 65 mg/dL >40 [facility] Comment on above: The drugs N-Acetylcy steine and Metamizole may falsely depress this assay. Reference Range HDL <40 mg/dL Low HDL Cholesterol HDL >or= 60 mg/dL High HDL Cholesterol Cholesterol in LDL [Mass/Vol] 144 mg/dL 0-130 [facility] CO2 [Moles/Vol] 27.0 mmol/L 21.0-32.0 [facility] Globulin (S) [Mass/Vol] 3.5 g/dL 2.2-4.2 [facility] Urea nitrogen/Creatinine [Mass ratio] 33.2 mg/mg 10-20 [facility] No Panel InformationOrdered By: Jimbo Dash on 06-10-2023 Estimated GFR (MDRD) Amer 86 mL/min >60 [facility] Comment on above: GFR Calc Estimated GFR (MDRD) Non-Af Amer 71 mL/min >60 [facility] Comment on above: Non- GFR Calc VLDL Cholesterol 25 mg/dL 5-40 [facility] Serum or plasma calcium cooper urement (mass/volume)Ordered By: Jimbo Dash on 06-10-2023 Calcium [Mass/Vol] 9.2 mg/dL 8.5-10.1 [facility] Serum or plasma creatinine m easurement (mass/volume)Ordered By: Jimbo Dash on 06-10-2023 Creatinine [Mass/Vol] 0.87 mg/dL 0.55-1.02 [facility] Comment on above: The validity of the calculated GFR & GFRAA in patients over 70 years has not been determined. Clinical correlation is essential. Serum or plasma urea nitroge n measurement (mass/volume)Ordered By: Jimbo Dash on 06-10-2023 Urea nitrogen [Mass/Vol] 29 mg/dL 7-18 [facility] Thin prep Papanicolaou smear with manual screeningOrdered By: Jimbo Dash on 06-10-2023 Thin prep Papanicolaou smear with manual screening 3.7 g/dL 3.2-5.0 [facility] Thin prep Papanicolaou smear with manual screening 18 U/L 15-37 [facility] Thin prep Papanicolaou smear with manual screening 4 5-15 [facility] - Microbiology an d Antimicrobial susceptibilityon 05-09-2023 SARS-CoV-2 (COVID-19) RNA SIRIA+probe Ql (Unsp spec) Not detected [facility] No Panel Informationon 05-09 Influenza Types A,B Rapid (Clinic) Not detected [facility] Absolute lymphocyte countOrd ered By: HEALTH ASSESSMENT on 02-01-2023 Lymphocytes Auto (Unsp spec) [#/Vol] 1.32 10*3/uL 0.83-4.51 [facility] Absolute reticulocyte countO rdered By: HEALTH ASSESSMENT on 02-01-2023 Reticulocytes (Bld) [#/Vol] 0.00 10*3/uL 0-5 [facility] Basophil percentageOrdered B y: HEALTH ASSESSMENT on 02-01-2023 Basophil percentage 3.2 mg/dL 2.5-4.9 [facility] Bilirubin [Mass/Vol] 0.50 mg/dL 0.20-1.00 [facility] Comment on above: For patients on eltr ombopag therapy, use of Dimension [place] TBIL is not recommended. Chloride [Moles/Vol] 107 mmol/L 98-107 [facility] Cholesterol [Mass/Vol] 267 mg/dL <200 [facility] Comment on above: <200 mg/dL Desirable 200-240 mg/dL Borderline >240 mg/dL High Risk Glucose [Mass/Vol] 85 mg/dL 74-106 [facility] LDH [Catalytic activity/Vol] 173 U/L 84-246 [facility] Neutrophils (Bld) [#/Vol] 3.1 10*3/uL 2.0-7.7 [facility] Potassium [Moles/Vol] 3.7 mmol/L 3.5-5.1 [facility] Protein [Mass/Vol] 6.9 g/dL 6.4-8.2 [facility] Sodium [Moles/Vol] 140 mmol/L 136-145 [facility] Triglyceride [Mass/Vol] 284 mg/dL <199 [facility] Comment on above: The drugs N-Acetylcy steine and Metamizole may falsely depress this assay.Serum Triglycerides Reference Interval Normal <150 mg/dL Borderline high 150 - 199 mg/dL High 200 - 499 mg/dL Very High > or = 500 mg/dL WBC (Bld) [#/Vol] 5.2 10*3/uL 4.4-11.0 [facility] Bilirubin Test strip Ql (U)O rdered By: HEALTH ASSESSMENT on 02-01-2023 Bilirubin Ql (U) Negative Negative [facility] Blood erythrocytes count (nu mber/volume)Ordered By: HEALTH ASSESSMENT on 02-01-2023 RBC (Bld) [#/Vol] 4.85 10*6/uL 4.2-5.4 [facility] Blood hemoglobin measurement (mass/volume)Ordered By: HEALTH ASSESSMENT on 02-01-2023 Hemoglobin (Bld) [Mass/Vol] 14.2 g/dL 12.0-15.0 [facility] Blood platelet mean volumeOr dered By: HEALTH ASSESSMENT on 02-01-2023 Platelet mean volume (Bld) [Entitic vol] 10.1 fL 6.2-12.0 [facility] Determination of erythrocyte mean corpuscular volume (MCV)Ordered By: HEALTH ASSESSMENT on 02-01-2023 MCV (RBC) [Entitic vol] 90.5 fL 81-99 [facility] Direct bilirubinOrdered By: HEALTH ASSESSMENT on 02-01-2023 Bilirubin.direct [Mass/Vol] 0.11 mg/dL 0.00-0.30 [facility] Hematocrit Auto (Bld) [Volum e fraction]Ordered By: HEALTH ASSESSMENT on 02-01-2023 Hematocrit (Bld) [Volume fraction] 43.9 % 37-47 [facility] Ketones Test strip Ql (U)Ord ered By: HEALTH ASSESSMENT on 02-01-2023 Ketones Ql (U) Negative Negative [facility] Laboratory - Chemistry and C hemistry - challengeOrdered By: HEALTH ASSESSMENT on 02-01-2023 ALP [Catalytic activity/Vol] 131 U/L 45-117 [facility] ALT [Catalytic activity/Vol] 41 U/L 13-56 [facility] Cholesterol.total/Choles terol in HDL [Mass ratio] 4.00 {ratio} [facility] CO2 [Moles/Vol] 31.0 mmol/L 21.0-32.0 [facility] Globulin (S) [Mass/Vol] 3.4 g/dL 2.2-4.2 [facility] Urea nitrogen/Creatinine [Mass ratio] 19.7 mg/mg 10-20 [facility] Laboratory - Hematology and Cell countsOrdered By: HEALTH ASSESSMENT on 02-01-2023 Erythrocyte distribution width (RBC) [Entitic vol] 42.2 fL 35.1-43.9 [facility] Erythrocyte distribution width (RBC) [Ratio] 12.8 % 11.6-14.6 [facility] MCH (RBC) [Entitic mass] 29.3 pg 27.0-32.0 [facility] Nucleated RBC/100 WBC (Bld) [Ratio] 0 % 0-5 [facility] MCHC Auto (RBC) [Mass/Vol]Or dered By: HEALTH ASSESSMENT on 02-01-2023 MCHC (RBC) [Mass/Vol] 32.3 g/dL 32-36 [facility] Nitrite Test strip Ql (U)Ord ered By: HEALTH ASSESSMENT on 02-01-2023 Nitrite Ql (U) Negative Negative [facility] No Panel InformationOrdered By: HEALTH ASSESSMENT on 02-01-2023 Estimated GFR (MDRD) Amer 87 mL/min >60 [facility] Comment on above: GFR Calc Estimated GFR (MDRD) Non-Af Amer 72 mL/min >60 [facility] Comment on above: Non- GFR Calc Platelets bldOrdered By: [facility] ASSESSMENT on 02-01-2023 Platelets (Bld) [#/Vol] 237 10*3/uL 150-450 [facility] Protein Test strip Ql (U)Ord ered By: HEALTH ASSESSMENT on 02-01-2023 Protein Ql (U) Negative Negative [facility] Segmented neutrophils/100 WB C Auto (Bld)Ordered By: HEALTH ASSESSMENT on 02-01-2023 Segmented neutrophils/100 WBC (Bld) 60.4 % 47-70 [facility] Serum or plasma albumin cooper urement (mass/volume)Ordered By: HEALTH ASSESSMENT on 02-01-2023 Albumin [Mass/Vol] 3.5 g/dL 3.2-5.0 [facility] Serum or plasma albumin/glob ulin mass ratioOrdered By: HEALTH ASSESSMENT on 02-01-2023 Albumin/Globulin [Mass ratio] 1.0 {ratio} 0.9-2.4 [facility] Serum or plasma calcium cooper urement (mass/volume)Ordered By: HEALTH ASSESSMENT on 02-01-2023 Calcium [Mass/Vol] 8.9 mg/dL 8.5-10.1 [facility] Serum or plasma cholesterol in HDL measurement (mass/volume)Ordered By: HEALTH ASSESSMENT on 02-01-2023 Cholesterol in HDL [Mass/Vol] 67 mg/dL >40 [facility] Comment on above: The drugs N-Acetylcy steine and Metamizole may falsely depress this assay. Reference Range HDL <40 mg/dL Low HDL Cholesterol HDL >or= 60 mg/dL High HDL Cholesterol Serum or plasma cholesterol in VLDL measurement (mass/volume)Ordered By: HEALTH ASSESSMENT on 02-01-2023 Cholesterol in VLDL [Mass/Vol] 57 mg/dL 5-40 [facility] Serum or plasma creatinine m easurement (mass/volume)Ordered By: HEALTH ASSESSMENT on 02-01-2023 Creatinine [Mass/Vol] 0.86 mg/dL 0.55-1.02 [facility] Comment on above: The validity of the calculated GFR & GFRAA in patients over 70 years has not been determined. Clinical correlation is essential. Serum or plasma low density lipoprotein (LDL) cholesterol measurement (mass/volume)Ordered By: HEALTH ASSESSMENT on 02-01-2023 Cholesterol in LDL [Mass/Vol] 143 mg/dL 0-130 [facility] Serum or plasma urea nitroge n measurement (mass/volume)Ordered By: HEALTH ASSESSMENT on 02-01-2023 Urea nitrogen [Mass/Vol] 17 mg/dL 7-18 [facility] Serum or plasma uric acid me asurement (mass/volume)Ordered By: HEALTH ASSESSMENT on 02-01-2023 Urate [Mass/Vol] 3.1 mg/dL 2.6-6.0 [facility] Comment on above: The drugs N-Acetylcy steine and Metamizole may falsely depress this assay. Thin prep Papanicolaou smear with manual screeningOrdered By: HEALTH ASSESSMENT on 02-01-2023 Thin prep Papanicolaou smear with manual screening 21 U/L 15-37 [facility] Thin prep Papanicolaou smear with manual screening 2 5-15 [facility] Urine blood detectionOrdered By: HEALTH ASSESSMENT on 02-01-2023 RBC Ql (U) 10 /ul Negative [facility] Urine clarityOrdered By: [facility] ASSESSMENT on 02-01-2023 Clarity (U) Clear Clear [facility] Urine color determinationOrd ered By: HEALTH ASSESSMENT on 02-01-2023 Color (U) Yellow Yellow [facility] Urine glucose detectionOrder ed By: HEALTH ASSESSMENT on 02-01-2023 Glucose Ql (U) Normal mg/dl Normal [facility] Urine leukocyte esterase det ection by dipstickOrdered By: HEALTH ASSESSMENT on 02-01-2023 Leukocyte esterase Test strip Ql (U) 100 /ul Negative [facility] Urine pHOrdered By: HEALTH A SSESSMENT on 02-01-2023 pH (U) 5.0 [pH] 5.0 - 8.0 [facility] Urine specific gravity measu rementOrdered By: HEALTH ASSESSMENT on 02-01-2023 Specific gravity (U) [Rel density] 1.015 1.002-1.030 [facility] Urobilinogen Auto test strip Ql (U)Ordered By: HEALTH ASSESSMENT on 02-01-2023 Urobilinogen Ql (U) Normal mg/dl Normal [facility] Basophil percentageOrdered B y: Jimbo Dash on 11-05-2022 Cholesterol [Mass/Vol] 194 mg/dL <200 [facility] Comment on above: <200 mg/dL Desirable 200-240 mg/dL Borderline >240 mg/dL High Risk Triglyceride [Mass/Vol] 205 mg/dL <199 [facility] Comment on above: The drugs N-Acetylcy steine and Metamizole may falsely depress this assay.Serum Triglycerides Reference Interval Normal <150 mg/dL Borderline high 150 - 199 mg/dL High 200 - 499 mg/dL Very High > or = 500 mg/dL Serum or plasma cholesterol in HDL measurement (mass/volume)Ordered By: Jimbo Dash on 11-05-2022 Cholesterol in HDL [Mass/Vol] 68 mg/dL >40 [facility] Comment on above: The drugs N-Acetylcy steine and Metamizole may falsely depress this assay. Reference Range HDL <40 mg/dL Low HDL Cholesterol HDL >or= 60 mg/dL High HDL Cholesterol Serum or plasma cholesterol in VLDL measurement (mass/volume)Ordered By: Jimbo Dash on 11-05-2022 Cholesterol in VLDL [Mass/Vol] 41 mg/dL 5-40 [facility] Serum or plasma low density lipoprotein (LDL) cholesterol measurement (mass/volume)Ordered By: Jimbo Dash on 11-05-2022 Cholesterol in LDL [Mass/Vol] 85 mg/dL 0-130 [facility] Absolute lymphocyte countOrd ered By: Dr. Goldberg on 10-03-2022 Lymphocytes Auto (Unsp spec) [#/Vol] 1.63 10*3/uL 0.83-4.51 [facility] Basophil percentageOrdered B y: Dr. Goldberg on 10-03-2022 Basophils/100 WBC (Bld) 1.0 % 0-1 [facility] Chloride [Moles/Vol] 111 mmol/L 98-107 [facility] Eosinophils/100 WBC (Bld) 8.1 % 0-5 [facility] Glucose [Mass/Vol] 93 mg/dL 74-106 [facility] Neutrophils (Bld) [#/Vol] 2.6 10*3/uL 2.0-7.7 [facility] Neutrophils/100 WBC (Bld) 50.2 % 47-70 [facility] Potassium [Moles/Vol] 4.2 mmol/L 3.5-5.1 [facility] Sodium [Moles/Vol] 141 mmol/L 136-145 [facility] WBC (Bld) [#/Vol] 5.2 10*3/uL 4.4-11.0 [facility] Blood erythrocytes count (nu mber/volume)Ordered By: Dr. Goldberg on 10-03-2022 RBC (Bld) [#/Vol] 4.85 10*6/uL 4.2-5.4 [facility] Blood hemoglobin measurement (mass/volume)Ordered By: Dr. Goldberg on 10-03-2022 Hemoglobin (Bld) [Mass/Vol] 14.3 g/dL 12.0-15.0 [facility] Blood lymphocytes/100 leukoc ytesOrdered By: Dr. Goldberg on 10-03-2022 Lymphocytes/100 WBC (Bld) 31.4 % 19-41 [facility] Blood monocytes/100 leukocyt esOrdered By: Dr. Goldberg on 10-03-2022 Monocytes/100 WBC (Bld) 8.7 % 0-10 [facility] Blood platelet mean volumeOr dered By: Dr. Goldberg on 10-03-2022 Platelet mean volume (Bld) [Entitic vol] 9.5 fL 6.2-12.0 [facility] Determination of erythrocyte mean corpuscular volume (MCV)Ordered By: Dr. Goldberg on 10-03-2022 MCV (RBC) [Entitic vol] 92.6 fL 81-99 [facility] Hematocrit Auto (Bld) [Volum e fraction]Ordered By: Dr. Goldberg on 10-03-2022 Hematocrit (Bld) [Volume fraction] 44.9 % 37-47 [facility] Laboratory - Chemistry and C hemistry - challengeOrdered By: Dr. Goldberg on 10-03-2022 CO2 [Moles/Vol] 29.0 mmol/L 21.0-32.0 [facility] Urea nitrogen/Creatinine [Mass ratio] 20.2 mg/mg 10-20 [facility] - Hematology and Cell countsOrdered By: Dr. Goldberg on 10-03-2022 Erythrocyte distribution width (RBC) [Entitic vol] 43.6 fL 35.1-43.9 [facility] Erythrocyte distribution width (RBC) [Ratio] 12.9 % 11.6-14.6 [facility] Immature granulocytes/100 WBC (Bld) 0.600 % 0.0-0.9 [facility] Comment on above: IG% - Immature Granu locytes (promyelocytes, myelocytes and metamyelocytes) > 1% indicates that a LEFT SHIFT is Present. MCH (RBC) [Entitic mass] 29.5 pg 27.0-32.0 [facility] Nucleated RBC/100 WBC (Bld) [Ratio] 0 % 0-5 [facility] MCHC Auto (RBC) [Mass/Vol]Or dered By: Dr. Goldberg on 10-03-2022 MCHC (RBC) [Mass/Vol] 31.8 g/dL 32-36 [facility] No Panel InformationOrdered By: Dr. Goldberg on 10-03-2022 Activated Clotting Time 197 sec 74-137 [facility] Estimated Creatinine Clearance Calc 57.69 ml/min [facility] Estimated GFR (MDRD) Amer 84 mL/min >60 [facility] Comment on above: GFR Calc Estimated GFR (MDRD) Non-Af Amer 70 mL/min >60 [facility] Comment on above: Non- GFR Calc Platelets bldOrdered By: Dr. Goldberg on 10-03-2022 Platelets (Bld) [#/Vol] 221 10*3/uL 150-450 [facility] Serum or plasma calcium cooper urement (mass/volume)Ordered By: Dr. Goldberg on 10-03-2022 Calcium [Mass/Vol] 9.2 mg/dL 8.5-10.1 [facility] Serum or plasma creatinine m easurement (mass/volume)Ordered By: Dr. Goldberg on 10-03-2022 Creatinine [Mass/Vol] 0.89 mg/dL 0.55-1.02 [facility] Comment on above: The validity of the calculated GFR & GFRAA in patients over 70 years has not been determined. Clinical correlation is essential. Serum or plasma urea nitroge n measurement (mass/volume)Ordered By: Dr. Goldberg on 10-03-2022 Urea nitrogen [Mass/Vol] 18 mg/dL 7-18 [facility] Thin prep Papanicolaou smear with manual screeningOrdered By: Dr. Goldberg on 10-03-2022 Thin prep Papanicolaou smear with manual screening 1 5-15 [facility] Basophil percentageOrdered B y: Dr. Dash on 08-01-2022 Bilirubin [Mass/Vol] 0.40 mg/dL 0.20-1.00 [facility] Comment on above: For patients on eltr ombopag therapy, use of Dimension [place] TBIL is not recommended. Chloride [Moles/Vol] 109 mmol/L 98-107 [facility] Cholesterol [Mass/Vol] 251 mg/dL <200 [facility] Comment on above: <200 mg/dL Desirable 200-240 mg/dL Borderline >240 mg/dL High Risk Glucose [Mass/Vol] 83 mg/dL 74-106 [facility] Potassium [Moles/Vol] 4.0 mmol/L 3.5-5.1 [facility] Protein [Mass/Vol] 7.0 g/dL 6.4-8.2 [facility] Sodium [Moles/Vol] 140 mmol/L 136-145 [facility] Triglyceride [Mass/Vol] 134 mg/dL <199 [facility] Comment on above: The drugs N-Acetylcy steine and Metamizole may falsely depress this assay.Serum Triglycerides Reference Interval Normal <150 mg/dL Borderline high 150 - 199 mg/dL High 200 - 499 mg/dL Very High > or = 500 mg/dL Laboratory - Chemistry and C hemistry - challengeOrdered By: Dr. Dash on 08-01-2022 ALP [Catalytic activity/Vol] 130 U/L 45-117 [facility] ALT [Catalytic activity/Vol] 33 U/L 13-56 [facility] CO2 [Moles/Vol] 25.0 mmol/L 21.0-32.0 [facility] Globulin (S) [Mass/Vol] 3.3 g/dL 2.2-4.2 [facility] Urea nitrogen/Creatinine [Mass ratio] 20.0 mg/mg 10-20 [facility] No Panel InformationOrdered By: Dr. Dash on 08-01-2022 Estimated GFR (MDRD) Amer 83 mL/min >60 [facility] Comment on above: GFR Calc Estimated GFR (MDRD) Non-Af Amer 69 mL/min >60 [facility] Comment on above: Non- GFR Calc Serum or plasma albumin cooper urement (mass/volume)Ordered By: Dr. Dash on 08-01-2022 Albumin [Mass/Vol] 3.7 g/dL 3.2-5.0 [facility] Serum or plasma albumin/glob ulin mass ratioOrdered By: Dr. Dash on 08-01-2022 Albumin/Globulin [Mass ratio] 1.1 {ratio} 0.9-2.4 [facility] Serum or plasma calcium cooper urement (mass/volume)Ordered By: Dr. Dash on 08-01-2022 Calcium [Mass/Vol] 9.3 mg/dL 8.5-10.1 [facility] Serum or plasma cholesterol in HDL measurement (mass/volume)Ordered By: Dr. Dash on 08-01-2022 Cholesterol in HDL [Mass/Vol] 66 mg/dL >40 [facility] Comment on above: The drugs N-Acetylcy steine and Metamizole may falsely depress this assay. Reference Range HDL <40 mg/dL Low HDL Cholesterol HDL >or= 60 mg/dL High HDL Cholesterol Serum or plasma cholesterol in VLDL measurement (mass/volume)Ordered By: Dr. Dash on 08-01-2022 Cholesterol in VLDL [Mass/Vol] 27 mg/dL 5-40 [facility] Serum or plasma creatinine m easurement (mass/volume)Ordered By: Dr. Dash on 08-01-2022 Creatinine [Mass/Vol] 0.90 mg/dL 0.55-1.02 [facility] Comment on above: The validity of the calculated GFR & GFRAA in patients over 70 years has not been determined. Clinical correlation is essential. Serum or plasma low density lipoprotein (LDL) cholesterol measurement (mass/volume)Ordered By: Dr. Dash on 08-01-2022 Cholesterol in LDL [Mass/Vol] 158 mg/dL 0-130 [facility] Serum or plasma urea nitroge n measurement (mass/volume)Ordered By: Dr. Dash on 08-01-2022 Urea nitrogen [Mass/Vol] 18 mg/dL 7-18 [facility] Thin prep Papanicolaou smear with manual screeningOrdered By: Dr. Dash on 08-01-2022 Thin prep Papanicolaou smear with manual screening 21 U/L 15-37 [facility] Thin prep Papanicolaou smear with manual screening 6 5-15 [facility] Calcium oxalate dihydrate cr ystals detection in stone by infrared spectroscopyOrdered By: Dr. Nicole on 02-15-2022 Calcium oxalate dihydrate crystals Infrared spectroscopy Ql (Stone) 30 % [facility] Color of specimen determinat ionOrdered By: Dr. Nicole on 02-15-2022 Color (Unsp spec) KOEHLER [facility] Laboratory - Miscellaneous t estsOrdered By: Dr. Nicole on 02-15-2022 Service comment (Unsp spec) [Interp] See comment [facility] Comment on above: Calculus received we t. Wet calculi must be dried beforeanalysis, which delays reporting of results. Leaving calculiwet (such as water, saline, blood, urine) may lead tochanges in composition. Physician questions regarding Calculi Analysis [facility] at: [phone]. Calculi report will follow via computer, mail or courierdelivery. Measurement of weight of sto neOrdered By: Dr. Nicole on 02-15-2022 Weight (Stone) 41 mg [facility] No Panel InformationOrdered By: Dr. Nicole on 02-15-2022 Stone Analysis (T) See comment [facility] Comment on above: Percentage (Represen ts the % composition) Stone Calcium Oxalate Monohydrate 70 % [facility] Origin of StoneOrdered By: Annette Nicole on 02-15-2022 Origin Nom (Stone) URINARY BLADDER [facility] Size of stoneOrdered By: Dr. Nicole on 02-15-2022 Size (Stone) [Entitic vol] 3x3 mm [facility] Comment on above: Multiple pieces rece ived. Dimensions of the largest piece reported. Thin prep Papanicolaou smear with manual screeningOrdered By: Dr. Nicole on 02-15-2022 Thin prep Papanicolaou smear with manual screening See comment [facility] Comment on above: Photograph will foll ow under a separate cover Absolute lymphocyte counton 01-12-2022 Lymphocytes Auto (Unsp spec) [#/Vol] 0.55 10*3/uL 0.83-4.51 [facility] Work Phone: Absolute reticulocyte counto n 01-12-2022 Reticulocytes (Bld) [#/Vol] 0.00 10*3/uL 0-5 [facility] Work Phone: Basophil percentageon 2021 Basophil percentage 3.7 mg/dL 2.5-4.9 [facility] Work Phone: Bilirubin [Mass/Vol] 0.60 mg/dL 0.20-1.00 [facility] Work Phone: Comment on above: For patients on eltr ombopag therapy, use of Dim[employer] [place] TBIL is not recommended. Chloride [Moles/Vol] 108 mmol/L 98-107 [facility] Work Phone: Cholesterol [Mass/Vol] 217 mg/dL <200 [facility] Work Phone: Comment on above: <200 mg/dL Desirable 200-240 mg/dL Borderline >240 mg/dL High Risk Glucose [Mass/Vol] 110 mg/dL 74-106 [facility] Work Phone: Comment on above: Fasting Glucose resu lt from 100 to 125 mg/dL suggests IMPAIRED HOMEOSTASIS per A.D.A. criteria. Neutrophils (Bld) [#/Vol] 4.2 10*3/uL 2.0-7.7 [facility] Work Phone: Potassium [Moles/Vol] 3.9 mmol/L 3.5-5.1 [facility] Work Phone: [phone] Protein [Mass/Vol] 7.3 g/dL 6.4-8.2 [facility] Work Phone: [phone] Sodium [Moles/Vol] 143 mmol/L 136-145 [facility] Work Phone: [phone] Triglyceride [Mass/Vol] 134 mg/dL <199 [facility] Work Phone: [phone] Comment on above: The drugs N-Acetylcy steine and Metamizole may falsely depress this assay.Serum Triglycerides Reference Interval Normal <150 mg/dL Borderline high 150 - 199 mg/dL High 200 - 499 mg/dL Very High > or = 500 mg/dL WBC (Bld) [#/Vol] 5.5 10*3/uL 4.4-11.0 [facility] Work Phone: [phone] Bilirubin Test strip Ql (U)o n 01-12-2022 Bilirubin Ql (U) Negative Negative [facility] Work Phone: [phone] Blood erythrocytes count (nu mber/volume)on 01-12-2022 RBC (Bld) [#/Vol] 4.76 10*6/uL 4.2-5.4 [facility] Work Phone: [phone] Blood hemoglobin measurement (mass/volume)on 01-12-2022 Hemoglobin (Bld) [Mass/Vol] 14.3 g/dL 12.0-15.0 [facility] Work Phone: [phone] Blood platelet mean volumeon 01-12-2022 Platelet mean volume (Bld) [Entitic vol] 10.4 fL 6.2-12.0 [facility] Work Phone: [phone] Determination of erythrocyte mean corpuscular volume (MCV)on 01-12-2022 MCV (RBC) [Entitic vol] 92.9 fL 81-99 [facility] Work Phone: [phone] Direct bilirubinon Bilirubin.direct [Mass/Vol] 0.17 mg/dL 0.00-0.30 [facility] Work Phone: Hematocrit Auto (Bld) [Volum e fraction]on 01-12-2022 Hematocrit (Bld) [Volume fraction] 44.2 % 37-47 [facility] Work Phone: [phone] Ketones Test strip Ql (U)on 01-12-2022 Ketones Ql (U) Negative Negative [facility] Work Phone: [phone] Laboratory - Chemistry and C hemistry - challengeon 01-12-2022 ALP [Catalytic activity/Vol] 137 U/L 45-117 [facility] Work Phone: [phone] ALT [Catalytic activity/Vol] 33 U/L 13-56 [facility] Work Phone: [phone] Cholesterol.total/Choles terol in HDL [Mass ratio] 2.70 {ratio} [facility] Work Phone: [phone] CO2 [Moles/Vol] 26.0 mmol/L 21.0-32.0 [facility] Work Phone: [phone] Globulin (S) [Mass/Vol] 3.7 g/dL 2.2-4.2 [facility] Work Phone: [phone] Urea nitrogen/Creatinine [Mass ratio] 17.1 mg/mg 10-20 [facility] Work Phone: [phone] Laboratory - Hematology and Cell countson 01-12-2022 Erythrocyte distribution width (RBC) [Entitic vol] 43.1 fL 35.1-43.9 [facility] Work Phone: [phone] Erythrocyte distribution width (RBC) [Ratio] 12.6 % 11.6-14.6 [facility] Work Phone: [phone] MCH (RBC) [Entitic mass] 30.0 pg 27.0-32.0 [facility] Work Phone: [phone] Nucleated RBC/100 WBC (Bld) [Ratio] 0 % 0-5 [facility] Work Phone: [phone] MCHC Auto (RBC) [Mass/Vol]on 01-12-2022 MCHC (RBC) [Mass/Vol] 32.4 g/dL 32-36 [facility] Work Phone: Nitrite Test strip Ql (U)on 01-12-2022 Nitrite Ql (U) Negative Negative [facility] Work Phone: No Panel Informationon 01-12 Estimated GFR (MDRD) Amer 86 mL/min >60 [facility] Work Phone: Comment on above: GFR Calc Estimated GFR (MDRD) Non-Af Amer 71 mL/min >60 [facility] Work Phone: Comment on above: Non- GFR Calc Platelets bldon 01-12-2022 Platelets (Bld) [#/Vol] 234 10*3/uL 150-450 [facility] Work Phone: [phone] Protein Test strip Ql (U)on 01-12-2022 Protein Ql (U) Negative Negative [facility] Work Phone: Segmented neutrophils/100 WB C Auto (Bld)on 01-12-2022 Segmented neutrophils/100 WBC (Bld) 77.1 % 47-70 [facility] Work Phone: Serum or plasma albumin cooper urement (mass/volume)on 01-12-2022 Albumin [Mass/Vol] 3.6 g/dL 3.2-5.0 [facility] Work Phone: Serum or plasma albumin/glob ulin mass ratioon 01-12-2022 Albumin/Globulin [Mass ratio] 1.0 {ratio} 0.9-2.4 [facility] Work Phone: [phone] Serum or plasma calcium cooper urement (mass/volume)on 01-12-2022 Calcium [Mass/Vol] 9.3 mg/dL 8.5-10.1 [facility] Work Phone: [phone] Serum or plasma cholesterol in HDL measurement (mass/volume)on 01-12-2022 Cholesterol in HDL [Mass/Vol] 81 mg/dL >40 [facility] Work Phone: Comment on above: The drugs N-Acetylcy steine and Metamizole may falsely depress this assay. Reference Range HDL <40 mg/dL Low HDL Cholesterol HDL >or= 60 mg/dL High HDL Cholesterol Serum or plasma cholesterol in VLDL measurement (mass/volume)on 01-12-2022 Cholesterol in VLDL [Mass/Vol] 27 mg/dL 5-40 [facility] Work Phone: Serum or plasma creatinine m easurement (mass/volume)on 01-12-2022 Creatinine [Mass/Vol] 0.88 mg/dL 0.55-1.02 [facility] Work Phone: Comment on above: The validity of the calculated GFR & GFRAA in patients over 70 years has not been determined. Clinical correlation is essential. Serum or plasma low density lipoprotein (LDL) cholesterol measurement (mass/volume)on 01-12-2022 Cholesterol in LDL [Mass/Vol] 109 mg/dL 0-130 [facility] Work Phone: Serum or plasma urea nitroge n measurement (mass/volume)on 01-12-2022 Urea nitrogen [Mass/Vol] 15 mg/dL 7-18 [facility] Work Phone: Serum or plasma uric acid me asurement (mass/volume)on 01-12-2022 Urate [Mass/Vol] 3.1 mg/dL 2.6-6.0 [facility] Work Phone: Comment on above: The drugs N-Acetylcy steine and Metamizole may falsely depress this assay. Thin prep Papanicolaou smear with manual screeningon 01-12-2022 Thin prep Papanicolaou smear with manual screening 24 U/L 15-37 [facility] Work Phone: Thin prep Papanicolaou smear with manual screening 9 5-15 [facility] Work Phone: Thin prep Papanicolaou smear with manual screening 186 U/L 84-246 [facility] Work Phone: Urine blood detectionon 12-28 RBC Ql (U) Negative Negative [facility] Work Phone: Urine clarityon 01-12-2022 Clarity (U) Clear Clear [facility] Work Phone: Urine color determinationon 01-12-2022 Color (U) Yellow Yellow [facility] Work Phone: [phone] Urine glucose detectionon Glucose Ql (U) Normal mg/dl Normal [facility] Work Phone: Urine leukocyte esterase det ection by dipstickon 01-12-2022 Leukocyte esterase Test strip Ql (U) 100 /ul Negative [facility] Work Phone: [phone] Urine pHon 01-12-2022 pH (U) 7.0 [pH] 5.0 - 8.0 [facility] Work Phone: Urine specific gravity measu rementon 01-12-2022 Specific gravity (U) [Rel density] 1.010 1.002-1.030 [facility] Work Phone: [phone] Urobilinogen Auto test strip Ql (U)on 01-12-2022 Urobilinogen Ql (U) Normal mg/dl [facility] Work Phone: Cytology report of Body flui d Cyto stainon 01-10-2022 Cytology report Cyto stain Doc (Body fld) SEE PATHOLOGY REPORT [facility] Work Phone: Comment on above: Specimen submitted t o Anatomical Pathology Department for testing. Basophil percentageon 2021 Basophil percentage 0-5 SEEN /hpf 0-5 [facility] Work Phone: Bilirubin Test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 Goldberg Facility:[facility] Start: 06-11-2024 Non-patient / Non-visit Dr. Reji chavez MD -[facility] Start: 06-11-2024 End: 06-11-2024 Emergency department patient visit Dr. Rupert Yeung -Emergency Department Work Phone: Start: 05-21-2024 End: 05-21-[address] Jimbo Dash MD -Laboratory, Specimen Work Phone: Start: 05-21-2024 End: 05-21-[address] Jimbo Dash MD -Radiology, [place] Work Phone: Start: 05-21-2024 End: 05-21-2024 ambulatory Jimbo Dash Facility:[facility] Start: 03-13-2024 End: 03-13-2024 Emergency department patient visit Mp Torrez Facility:[facility] Start: 02-27-2024 End: 02-27-2024 ambulatory Reji Goldberg Facility:[facility] Start: 02-14-2024 ambulatory Health Risk Assessment Facility:[facility] Start: 01-27-2024 End: 01-27-2024 ambulatory Jimbo Dash Facility:[facility] Start: 12-24-2023 ambulatory Martine Power Facility:[facility] Start: 12-24-2023 End: 12-24-2023 ambulatory Martine Power Facility:[facility] Start: 12-10-2023 End: 12-10-2023 ambulatory Martine Power Facility:[facility] Start: 12-02-2023 End: 12-02-2023 ambulatory Reji Rodrigues Facility:[facility] Start: 11-28-2023 End: 12-03-2023 ambulatory Everton Mchugh Facility:[facility] Start: 11-28-2023 ambulatory Martine Power Facility:[facility] Start: 11-28-2023 End: 12-03-2023 Evaluation and management of inpatient Caroledanial Bower Facility:[facility] Start: 11-28-2023 ambulatory Reji Goldberg Facility:[facility] Start: 11-19-2023 ambulatory Martine Power Facility:[facility] Start: 11-14-2023 End: 11-14-2023 ambulatory Jimbo Dash Facility:[facility] Start: 08-12-2023 End: 08-12-[address] Jimbo Dash Work Phone: [facility] Work Phone: Start: 08-12-2023 End: 08-12-[address] Jimbo Dash Work Phone: [facility]-MRI - [facility] Work Phone: Start: 07-10-2023 End: 07-10-[address] Jimbo Dash Work Phone: [facility] Work Phone: Start: 07-10-2023 End: 07-10-[address] Jimbo Dash [facility] Start: 06-10-2023 End: 06-10-[address] Jimbo Dash Work Phone: [facility] Work Phone: Start: 06-10-2023 End: 06-10-[address] Jimbo Dash Work Phone: [facility]-Laboratory Work Phone: Start: 05-09-2023 End: 05-09-[address] Jimbo Dash Work Phone: [facility] Work Phone: Start: 04-11-2023 End: 04-11-[address] Jimbo Dash Work Phone: [facility] Work Phone: Start: 04-11-2023 End: 04-11-[address] Jimbo Dash Work Phone: [facility]-Outpatient Bone Densitometry Work Phone: Start: 04-05-2023 Non-patient / Non-visit Dr. Kings Dash Work Phone: [facility] Start: 04-05-2023 End: 04-05-[address] Jimbo Dash Work Phone: [facility] Work Phone: Start: 04-05-2023 End: 04-05-[address] [facility] Start: 02-01-[address] Jimbo copeland Work Phone: [facility]-Laboratory Work Phone: Start: 11-05-2022 End: 11-05-[address] Jimbo Dash Work Phone: [facility] Work Phone: Start: 11-05-2022 End: 11-05-[address] Jimbo Dash Work Phone: [facility] Start: 10-25-2022 End: 10-25-[address] Jimbo Dash Work Phone: [facility] Vascular Surgery Work Phone: Start: 10-03-2022 End: 10-03-2022 Admission to same day surgery center Dr. Jimbo Dash Work Phone: [facility]/Special Procedures Start: 10-03-2022 End: 10-03-[address] Jimbo Dash Work Phone: [facility] Work Phone: Start: 10-03-2022 Non-patient / Non-visit Dr. Kings Dash Work Phone: [facility] Start: 09-17-2022 ambulatory Walt L Ulrich AP RN.[employer] Work Phone: Urogynecology Comment on above: Operative report Start: 09-17-2022 E-mail encounter fro m caregiver Walt Ulrich PBX MANAGER.[employer] Work Phone: [facility] Start: 08-30-2022 End: 08-30-[address] Jimbo Dash Work Phone: [facility] Vascular Surgery Start: 08-16-2022 End: 08-16-[address] Jimbo Dash Work Phone: [facility] Work Phone: Start: 08-16-2022 End: 08-16-[address] Jimbo Dash Work Phone: [facility] Start: 08-08-2022 End: 08-08-[address] Jimbo Dash Work Phone: [facility] Start: 08-01-2022 End: 08-01-[address] Jimbo Dash Work Phone: [facility] Vascular Surgery Start: 08-01-2022 End: 08-01-[address] Jimbo Dash Work Phone: [facility] Work Phone: Start: 08-01-2022 End: 08-01-[address] Jimbo Dash Work Phone: [facility] Start: 05-09-2022 Non-patient / Non-visit Dr. Kings Dash Work Phone: [facility] Start: 05-09-2022 End: 05-09-[address] Jimbo Dash Work Phone: [facility] Work Phone: Start: 05-09-2022 End: 05-09-[address] Jimbo Dash Work Phone: [facility]-Cardiovascular Services Start: 05-03-2022 End: 05-03-[address] Jimbo Dash Work Phone: [facility] Vascular Surgery Start: 04-30-2022 End: 04-30-2022 Patient encounter procedure Celia Hernandez PBX MANAGER.[employer]ER Work Phone: [facility] Comment on above: Dermatitis (Primary Dx) Start: 04-18-2022 End: 04-18-[address] Jimbo Dash Work Phone: [facility] Start: 03-01-2022 Telephone encounter Jimbo Dash MD Work Phone: Urology Comment on above: Referral Information Start: 02-15-2022 End: 02-15-2022 Admission to same day surgery center Dr. Jimbo Dash Work Phone: [facility]-S[facility] Day Care Start: 02-15-2022 End: 02-15-[address] Jimbo Dash Work Phone: [facility] Work Phone: Start: 02-12-2022 End: 02-12-[address] Jimbo Dash Work Phone: [facility] Work Phone: Start: 02-12-2022 End: 02-12-[address] Jimbo Dash Work Phone: [facility] Start: 02-09-2022 Non-patient / Non-visit Dr. Kings Dash Work Phone: [facility] Start: 02-09-2022 End: 02-09-2022 Admission to same day surgery center Dr. Jimbo Dash Work Phone: [facility]-Endoscopy Start: 02-09-2022 End: 02-09-[address] Jimbo Dash Work Phone: [facility] Work Phone: Start: 01-12-[address] Jimbo copeland Work Phone: [facility] Start: 01-10-2022 End: 01-10-[address] Jimbo Dash Work Phone: [facility] Work Phone: Start: 01-10-2022 End: 01-10-[address] Jimbo Dash Work Phone: [facility]-Laboratory, Specimen Start: 12-18-2021 End: 12-18-[address] Jimbo Dash Work Phone: [facility] Work Phone: Start: 12-18-2021 End: 12-18-[address] [facility] Start: 12-18-2021 End: 12-18-[address] Jimbo Dash Work Phone: [facility] Start: 11-21-2021 End: 11-21-[address] Jimbo Dash Work Phone: [facility] Start: 11-06-2021 End: 11-06-2021 Patient encounter procedure [facility]-Laboratory, [facility] Start: 10-30-2021 Orders Only Bekah martínez PBX MANAGER.CNM Work Phone: OB/Gynecology Comment on above: Other specified dysp areunia (Primary Dx); Vaginal atrophy; Vaginismus Start: 10-27-2021 Telephone encounter Bekah cotter PBX MANAGER.CNM Work Phone: OB/Gynecology Comment on above: Results Start: 10-24-2021 Orders Only Bekah martínez PBX MANAGER.CNM Work Phone: OB/Gynecology Comment on above: Dysuria (Primary Dx) Start: 10-10-2021 ambulatory Bekah martínez PBX MANAGER.CNM Work Phone: OB/Gynecology Procedures Date Procedure Procedure Detail Performing Clinician Start: 12-08-2024 Radex toe minimum 2 views Marguerite Daily PBX MANAGER.[employer] Work Phone: Start: 10-23-2024 Urnls dip stick/tabl et rgnt auto w/o microscopy Fátima Santillan MD Work Phone: Start: 10-13-2024 CT of pelvis without contrast Dr. Jimbo Dash MD Work Phone: Start: 09-24-2024 BLADDER SCAN Elida Dus z PBX MANAGER.[employer]ER Work Phone: Start: 09-24-2024 Urnls dip stick/tabl et rgnt auto w/o microscopy Elida Dusz PBX MANAGER.[employer]ER Work Phone: Start: 07-08-[address] Jimbo Dash MD Work Phone: Start: 07-08-2024 Urnls dip stick/tabl et reagent auto microscopy Dr. Jimbo Dash MD Work Phone: Start: 06-11-2024 X-ray of chest, PA a nd lateral views Dr. Jimbo Dash MD Work Phone: Start: 05-21-2024 X-ray of sacrum and coccyx, two or more views Dr. Jimbo Dash MD Work Phone: Start: 05-21-[address] Jimbo Dash MD Work Phone: Start: 08-12-2023 MRI of joint of lowe r extremity Dr. Jimbo Dash Work Phone: Start: 07-10-2023 Radiologic examinati on of knee Dr. Jimbo Dash Work Phone: Start: 04-11-2023 Dual energy X-ray absorptiometry Dr. Jimbo Dash Work Phone: Start: 04-11-2023 Screening mammography Annette Dash Work Phone: Start: 08-16-2022 Computed tomography angiography of abdominal and/or pelvic blood vessel Dr. Jimbo Dash Work Phone: Start: 08-08-2022 X-ray of both feet Dr. Jimbo Dash Work Phone: Start: 08-08-2022 Plain x-ray of pelvi s and lower extremity Dr. Jimbo Dash Work Phone: Start: 02-15-2022 Cysto,Pelvic Exam (N ot Applicable) Dr. Jimbo Dash Work Phone: Start: 02-12-2022 Computed tomography of abdomen and pelvis with contrast Dr. Jimbo Dash Work Phone: Start: 02-09-[address] Jimbo copeland Work Phone: Start: 10-11-2021 Culture bacterial quanttative colony count urine Bekah Redd PBX MANAGER.CNM Work Phone: Start: 07-21-2020 Mammography Bekah cotter PBX MANAGER.CNM Work Phone: Start: 11-28-2010 Lipid 1996 panel - S sam or Plasma Ric Taylor PBX MANAGER.[employer] HAND[employer]ER Work Phone: Urine culture Dr. Jimbo Johnson en Work Phone: Plan of Treatment Date Care Activity Detail Author Start: 02-08-2032 Urine microalbumin profile DTaP,Tdap,Td Vaccine (4 - Td or Tdap) [facility] Start: 12-28-2024 Influenza vaccination Influenza Vacc ine (#1) [facility] Start: 12-14-2024 End: 12-14-2024 Patient encounter procedure 12/14/2024 1:00 PM EDT Appointment Radiology [address] [place] [address] Infection in abdomen (HCC) [K65.9] Radiology Comment on above: Infection in abdomen (HCC) [K65.9] Start: 11-03-2024 End: 11-03-2024 Patient encounter procedure 11/03/2024 10:30 AM EDT Office Visit [facility] [place] [address] Ladarius Pathak MD [address] [place] [address] cysto with elías- ct prior at [facility] Urology Comment on above: cysto with elías- ct prior at [facility] Start: 09-24-2024 End: 09-24-2024 Patient encounter procedure 09/24/2024 11:00 AM EDT Office Visit Urology [address] [place] [address] Elida Angelo APRN.[employer] HAND[employer]ER [address] [facility] [address] [place] [address] new patient; referral; possible bladder stone--had cysto done from other provider; patient will fax over records Urology Comment on above: new patient; referra l; possible bladder stone--had cysto done from other provider; patient will fax over records Start: 06-11-2024 [facility] Start: 12-29-2023 Covid-19 Vaccine ( season) Covid-19 Vaccine ( season) [facility] Start: 04-29-2022 DEPRESSION ASSESSMENT DEPRESSION ASS ESSMENT [facility] Start: 04-18-2022 Patient referral [facility] Work Phone: Start: 02-15-2022 Anes trurl fragmntj manj&/rmvl ureteral calculus ANESTH STONE REMOVAL [facility] Start: 02-15-2022 Cysto w/ureteroscopy w/lithotripsy CYSTOURETERO W/LITHOTRIPSY [facility] Start: 02-15-2022 Patient discharge [facility] Start: 02-09-2022 Colonoscopy flx dx w/collj spec when pfrmd DIAGNOSTIC COLONOSCOPY [facility] Start: 02-09-2022 Patient discharge [facility] Start: 12-28-2021 Influenza vaccination INFLUENZA (#1) [facility] Start: 10-24-2021 End: 12-24-2021 Bacteria identified in Urine by Culture URINE CULTURE Microbiology Routine Dysuria Expected: 10/24/2021, Expires: 12/24/2021 [facility] Work Phone: Comment on above: Expected: 10/24/2021 , Expires: 12/24/2021 Start: 10-24-2021 End: 12-24-2021 Urinalysis complete panel - Urine URINALYSIS, WITH MICROSCOPIC Lab Routine Dysuria Expected: 10/24/2021, Expires: 12/24/2021 [facility] Work Phone: Comment on above: Expected: 10/24/2021 , Expires: 12/24/2021 Start: 07-21-2021 Mammography MAMMOGRAM [facility] Start: 07-21-2021 Screening for malign ant neoplasm of breast Mammogram Screening [facility] Start: 04-29-2021 DEPRESSION ASSESSMENT DEPRESSION ASS ESSMENT [facility] Start: 10-29-2020 COVID-19 VACCINE (3 - Booster for Moderna series) COVID-19 VACCINE (3 - Booster for Moderna series) [facility] Start: 07-27-2020 COVID-19 VACCINE (3 - Booster for Moderna series) COVID-19 VACCINE (3 - Booster for Moderna series) [facility] Start: 12-10-2016 End: 12-10-2016 Appointment Appointment [facility] Work Phone: Start: 12-10-2016 End: 12-10-2016 X-ray exam of foot X-Ray, Foot [facility] Work Phone: Start: 10-29-2016 End: 10-29-2016 Appointment Appointment [facility] Work Phone: Start: 10-29-2016 End: 10-29-2016 X-ray exam of foot X-Ray, Foot [facility] Work Phone: Start: 10-29-2016 End: 10-29-2016 X-ray exam, knee, 4 or more X-Ray, Knee [facility] Work Phone: Start: 07-05-2016 End: 07-05-2016 X-ray exam of finger(s) X-Ray, Fingers [facility] Work Phone: Start: 06-26-2016 Urine microalbumin profile DTAP,TDAP,TD (2 - Td or Tdap) [facility] Start: 11-29-2015 Lipid panel Lipid Screening [facility] Start: 11-29-2015 LIPID SCREEN LIPID SCREEN [facility] Start: 2015 Pneumococcal Vaccine : 50+ (1 of 1 - PCV) Pneumococcal Vaccine: 50+ (1 of 1 - PCV) [facility] Start: 2015 SHINGRIX VACCINE (1 of 2) FERNANDEZ GRIX VACCINE (1 of 2) [facility] Start: 11-28-2013 DIABETES SCREEN DIABETES SCREEN [facility] Start: 11-28-2013 Diabetes Screening Diabetes Screenin g [facility] Start: 02-26-2011 PAP TESTING PAP TESTING [facility] Start: 2010 COLOGUARD (FIT-DNA) COLOGUARD (FIT-D NA) [facility] Start: 2010 Colonoscopy COLONOSCOPY [facility] Start: 2010 COLORECTAL CANCER SCREENING COLORECTAL CANCER SCREENING [facility] Start: [address] COLONOGRAPHY [facility] Start: 2010 FECAL OCCULT BLOOD FECAL OCCULT BLOO D [facility] Start: 2010 Screening for malign ant neoplasm of colon [facility] Start: 2010 SIGMOIDOSCOPY SIGMOIDOSCOPY [facility] Start: 02-26-2009 Screening for malign ant neoplasm of cervix Cervical Cancer Screening [facility] Start: 1995 HPV TESTING HPV TESTING [facility] Start: 1983 Anxiety Screening Anxiety Screening [facility] Start: 1983 Depression Screening Depression Scre ening [facility] Start: 1983 HEPATITIS C SCREENING HEPATITIS C [facility] Start: 1983 Hepatitis C screening Hepatitis C [facility] Start: 1983 HIV SCREENING HIV SCREENING [facility] Start: 1983 HIV screening HIV Screening [facility] Start: 1977 Adult depression screening assessment DEPRESSION SCREENING [facility] Start: 1965 HEPATITIS B (1 of 3 - 3-dose series) HEPATITIS B (1 of 3 - 3-dose series) [facility] Bacteria identified in Urine by Culture URINE CULTURE Microbiology Routine Dysuria 10/11/2021 7:35 AM EDT [facility] Work Phone: BLADDER SCAN BLADDER SCAN Pro cedures Routine Bladder stone Ordered: 10/22/2024 [facility] Comment on above: Ordered: 10/22/2024 Calcium [Mass/volume ] in Serum or Plasma [facility] Work Phone: CT Abdomen and Pelvis [facility] Doppler ultrasonogra phy of aorta [facility] Patient Education [facility] Work Phone: Patient referral [facility] Work Phone: UA DIP, URINE (POC) UA DIP, URIN E (POC) Lab Routine Bladder stone Ordered: 10/22/2024 [facility] Work Phone: Comment on above: Ordered: 10/22/2024 [facility] Immunizations Immunization Date Immunization Notes Care Provider [facility] 01-29-2024 influenza, seasonal, injectable, preservative free Dr. Jimbo Dash MD Work Phone: [facility] 01-29-2024 influenza virus vaccine, unspecified formulation Fátima Santillan MD Work Phone: [facility] 02-12-2023 influenza, injectabl e, quadrivalent, preservative free Dr. Jimbo Dash Work Phone: [facility] 01-29-2022 influenza, injectabl e, quadrivalent, preservative free Dr. Jimbo Dash Work Phone: [facility] 01-29-2022 influenza, seasonal, injectable Dr. Jimbo Dash Work Phone: [facility] 02-09-2021 influenza, injectabl e, quadrivalent, preservative free Dr. Jimbo Dash Work Phone: [facility] 02-09-2021 influenza, seasonal, injectable [facility] 06-01-2020 Covid (Moderna) [facility] 05-04-2020 Covid (Moderna) [facility] 02-19-2020 influenza, injectabl e, quadrivalent, preservative free Dr. Jimbo Dash Work Phone: [facility] 02-19-2020 influenza, seasonal, injectable [facility] 07-04-2019 tetanus toxoid, redu christ diphtheria toxoid, and acellular pertussis vaccine, adsorbed [facility] 01-22-2019 influenza, injectabl e, quadrivalent, preservative free Dr. Jimbo Dash Work Phone: [facility] 01-22-2019 influenza, seasonal, injectable [facility] 01-22-2018 influenza, injectabl e, quadrivalent, preservative free Dr. Jimbo Dash Work Phone: [facility] 01-22-2018 influenza, seasonal, injectable [facility] 01-24-2017 influenza, injectabl e, quadrivalent, preservative free Dr. Jimbo Dash Work Phone: [facility] 01-24-2017 influenza, seasonal, injectable [facility] 01-26-2016 influenza, injectabl e, quadrivalent, preservative free Dr. Jimbo Dash Work Phone: [facility] 01-26-2016 influenza, seasonal, injectable [facility] 01-27-2015 influenza, injectabl e, quadrivalent, preservative free Dr. Jimbo Dash Work Phone: [facility] 01-27-2015 influenza, seasonal, injectable [facility] 01-21-2014 influenza, injectabl e, quadrivalent, preservative free Dr. Jimbo Dash Work Phone: [facility] 01-21-2014 influenza, seasonal, injectable [facility] 01-17-2009 tuberculin skin test ; purified protein derivative solution, intradermal Ric Taylor PBX MANAGER.[employer] HANDLER Work Phone: [facility] 06-26-2006 tetanus toxoid, redu christ diphtheria toxoid, and acellular pertussis vaccine, adsorbed Bekah Redd PBX MANAGER.CNM Work Phone: [facility] Work Phone: Payers Date Payer Category Payer Self-pay [id number] 2022 Private Health Insurance [id number] 2022 Unknown [id number] 2020 Unknown MMO MMO [id number] 2020-Present [address] [place] [address] PPO [id number] 2020 Unknown MMO MMO [employer] [id number] 2020-Present [address] [place] [address] PPO [id number] 2016 Unknown [id number] Unknown [facility] [id number] Unknown [id number] 2.840.1.040497.3.579.2. 462 Unknown [id number] 2.840.1.799604.3.579.2. 462 Unknown [id number] 2.840.1.396676.3.579.2. 462 Unknown [id number] 2.840.1.019784.3.579.2. 462 Unknown [id number] 2.840.1.091027.3.579.2. 462 Unknown [id number] 2.840.1.212357.3.579.2. 462 Unknown [id number] 2.840.1.103219.3.579.2. 462 Unknown [id number] 2.840.1.735125.3.579.2. 462 Unknown [id number] 2.16.840.1.671513.3.579.2. 462 Unknown [id number] 2.16.840.1.501316.3.579.2. 462 Unknown [id number] 2.16.840.1.844368.3.579.2. 462 Unknown [id number] 2.16.840.1.475009.3.579.2. 462 Unknown [id number] 2.16840.1.554946.3.579.2. 462 Unknown [id number] 2.16840.1.660645.3.579.2. 462 Unknown [id number] 2.840.1.736577.3.579.2. 462 Unknown [id number] 2.840.1.524091.3.579.2. 462 Unknown [id number] 2.840.1.373055.3.579.2. 462 Unknown [id number] 2.840.1.624482.3.579.2. 462 Unknown [id number] 2.840.1.038535.3.579.2. 462 Unknown [id number] 2.840.1.789166.3.579.2. 462 Unknown [id number] 2.16840.1.600010.3.579.2. 462 Unknown [id number] 2.840.1.760360.3.579.2. 462 Unknown [id number] 2.16840.1.037177.3.579.2. 462 Unknown [id number] 2.16840.1.224650.3.579.2. 462 Unknown [id number] 2.16.840.1.927018.3.579.2. 462 Unknown [id number] 2.16.840.1.855331.3.579.2. 462 Unknown [id number] 2.16840.1.831649.3.579.2. 462 Unknown [id number] 2.16.840.1.302255.3.579.2. 462 Unknown [id number] 2.16.840.1.746871.3.579.2. 462 Unknown [id number] 2.16.840.1.426099.3.579.2. 462 Unknown [id number] 2.16.840.1.157044.3.579.2. 462 Unknown [id number] 2.16.840.1.329624.3.579.2. 462 Unknown [id number] 2.16.840.1.877859.3.579.2. 462 Social History Date Type Detail Facility Start: 04-30-2022 End: 06-11-2024 Tobacco smoking status NHIS Never smoked tobacco [facility] Work Phone: Start: 07-04-2020 End: 12-08-2024 Alcohol intake Current non-drinker of alcohol (finding) [facility] Start: 1965 Sex Assigned At Not on file [facility] Start: 10-01-2021 End: 10-25-2021 Exposure to SARS-CoV-2 (event) Not sure [facility] Start: 05-12-2021 End: 05-09-2023 Tobacco smoking status NHIS Unknown if ever smoked [facility] Start: 10-03-2020 None [facility] Start: 10-03-2020 Homeless [facility] Start: 10-03-2020 Non-smoker [facility] Start: 1965 Sex Assigned At Female [facility] Start: 04-30-2022 Tobacco use and exposure Smokeless tobacco non-user [facility] Start: 07-15-2024 End: 07-22-2024 Sex Female (finding) [facility] Start: 09-17-2022 End: 08-26-2024 History of Social function [facility] Start: 09-17-2022 End: 08-26-2024 Tobacco use panel [facility] Start: 03-30-2012 National Score (1-100), lower number is lower risk 47 [facility] NEGATED: Highlighted row [facility] [place] Medical Equipment Procedure Code Equipment Code Equipment Origin al Text Equipment Identifier Dates Arthroscopy, shoulder, with rotator cuff repair FIBERTAPE FDA Start: 03-21-2020 Arthroscopy, shoulder, with rotator cuff repair FIBERTAPE FDA Start: 03-21-2020 Arthroscopy, shoulder, with rotator cuff repair FIBERTAPE AR-[id number] FDA Start: 03-21-2020 Arthroscopy, shoulder, with rotator cuff repair FIBERTAPE AR-7535 FDA Start: 03-21-2020 Arthroscopy, shoulder, with rotator cuff repair SWIVELOCK,4.75 DOUBLE LOCK FDA Start: 03-21-2020 Arthroscopy, shoulder, with rotator cuff repair SWIVELOCK,4.75 DOUBLE LOCK FDA Start: 03-21-2020 Arthroscopy, shoulder, with rotator cuff repair FIBERTAPE FDA Start: 03-21-2020 Arthroscopy, shoulder, with rotator cuff repair FIBERTAPE FDA Start: 03-21-2020 Arthroscopy, shoulder, with rotator cuff repair FIBERTAPE AR-[id number] FDA Start: 03-21-2020 Arthroscopy, shoulder, with rotator cuff repair FIBERTAPE AR-[id number] FDA Start: 03-21-2020 Arthroscopy, shoulder, with rotator cuff repair SWIVELOCK,4.75 DOUBLE LOCK FDA Start: 03-21-2020 Arthroscopy, shoulder, with rotator cuff repair SWIVELOCK,4.75 DOUBLE LOCK FDA Start: 03-21-2020 Arthroscopy, shoulder, with rotator cuff repair FIBERTAPE FDA Start: 03-21-2020 Arthroscopy, shoulder, with rotator cuff repair FIBERTAPE FDA Start: 03-21-2020 Arthroscopy, shoulder, with rotator cuff repair FIBERTAPE AR-[id number] FDA Start: 03-21-2020 Arthroscopy, shoulder, with rotator cuff repair FIBERTAPE AR-[id number] FDA Start: 03-21-2020 Arthroscopy, shoulder, with rotator cuff repair SWIVELOCK,4.75 DOUBLE LOCK FDA Start: 03-21-2020 Arthroscopy, shoulder, with rotator cuff repair SWIVELOCK,4.75 DOUBLE LOCK FDA Start: 03-21-2020 Arthroscopy, shoulder, with rotator cuff repair FIBERTAPE FDA Start: 03-21-2020 Arthroscopy, shoulder, with rotator cuff repair FIBERTAPE FDA Start: 03-21-2020 Arthroscopy, shoulder, with rotator cuff repair FIBERTAPE AR-[id number] FDA Start: 03-21-2020 Arthroscopy, shoulder, with rotator cuff repair FIBERTAPE AR-[id number] FDA Start: 03-21-2020 Arthroscopy, shoulder, with rotator cuff repair SWIVELOCK,4.75 DOUBLE LOCK FDA Start: 03-21-2020 Arthroscopy, shoulder, with rotator cuff repair SWIVELOCK,4.75 DOUBLE LOCK FDA Start: 03-21-2020 Arthroscopy, shoulder, with rotator cuff repair FIBERTAPE FDA Start: 03-21-2020 Arthroscopy, shoulder, with rotator cuff repair FIBERTAPE FDA Start: 03-21-2020 Arthroscopy, shoulder, with rotator cuff repair FIBERTAPE [id number]-[id number] FDA Start: 03-21-2020 Arthroscopy, shoulder, with rotator cuff repair FIBERTAPE [id number]-[id number] FDA Start: 03-21-2020 Arthroscopy, shoulder, with rotator cuff repair SWIVELOCK,4.75 DOUBLE LOCK FDA Start: 03-21-2020 Arthroscopy, shoulder, with rotator cuff repair SWIVELOCK,4.75 DOUBLE LOCK FDA Start: 03-21-2020 Arthroscopy, shoulder, with rotator cuff repair FIBERTAPE FDA Start: 03-21-2020 Arthroscopy, shoulder, with rotator cuff repair FIBERTAPE FDA Start: 03-21-2020 Arthroscopy, shoulder, with rotator cuff repair FIBERTAPE AR-[id number] FDA Start: 03-21-2020 Arthroscopy, shoulder, with rotator cuff repair FIBERTAPE AR-[id number] FDA Start: 03-21-2020 Arthroscopy, shoulder, with rotator cuff repair SWIVELOCK,4.75 DOUBLE LOCK FDA Start: 03-21-2020 Arthroscopy, shoulder, with rotator cuff repair SWIVELOCK,4.75 DOUBLE LOCK FDA Start: 03-21-2020 Arthroscopy, shoulder, with rotator cuff repair FIBERTAPE FDA Start: 03-21-2020 Arthroscopy, shoulder, with rotator cuff repair FIBERTAPE FDA Start: 03-21-2020 Arthroscopy, shoulder, with rotator cuff repair FIBERTAPE AR-[id number] FDA Start: 03-21-2020 Arthroscopy, shoulder, with rotator cuff repair FIBERTAPE AR-[id number] FDA Start: 03-21-2020 Arthroscopy, shoulder, with rotator cuff repair SWIVELOCK,4.75 DOUBLE LOCK FDA Start: 03-21-2020 Arthroscopy, shoulder, with rotator cuff repair SWIVELOCK,4.75 DOUBLE LOCK FDA Start: 03-21-2020 Arthroscopy, shoulder, with rotator cuff repair FIBERTAPE FDA Start: 03-21-2020 Arthroscopy, shoulder, with rotator cuff repair FIBERTAPE FDA Start: 03-21-2020 Arthroscopy, shoulder, with rotator cuff repair FIBERTAPE AR-[id number] FDA Start: 03-21-2020 Arthroscopy, shoulder, with rotator cuff repair FIBERTAPE AR-[id number] FDA Start: 03-21-2020 Arthroscopy, shoulder, with rotator cuff repair SWIVELOCK,4.75 DOUBLE LOCK FDA Start: 03-21-2020 Arthroscopy, shoulder, with rotator cuff repair SWIVELOCK,4.75 DOUBLE LOCK FDA Start: 03-21-2020 Arthroscopy, shoulder, with rotator cuff repair FIBERTAPE FDA Start: 03-21-2020 Arthroscopy, shoulder, with rotator cuff repair FIBERTAPE FDA Start: 03-21-2020 Arthroscopy, shoulder, with rotator cuff repair FIBERTAPE AR-[id number] FDA Start: 03-21-2020 Arthroscopy, shoulder, with rotator cuff repair FIBERTAPE AR-[id number] FDA Start: 03-21-2020 Arthroscopy, shoulder, with rotator cuff repair SWIVELOCK,4.75 DOUBLE LOCK FDA Start: 03-21-2020 Arthroscopy, shoulder, with rotator cuff repair SWIVELOCK,4.75 DOUBLE LOCK FDA Start: 03-21-2020 Arthroscopy, shoulder, with rotator cuff repair FIBERTAPE FDA Start: 03-21-2020 Arthroscopy, shoulder, with rotator cuff repair FIBERTAPE FDA Start: 03-21-2020 Arthroscopy, shoulder, with rotator cuff repair FIBERTAPE AR-[id number] FDA Start: 03-21-2020 Arthroscopy, shoulder, with rotator cuff repair FIBERTAPE AR-[id number] FDA Start: 03-21-2020 Arthroscopy, shoulder, with rotator cuff repair SWIVELOCK,4.75 DOUBLE LOCK FDA Start: 03-21-2020 Arthroscopy, shoulder, with rotator cuff repair SWIVELOCK,4.75 DOUBLE LOCK FDA Start: 03-21-2020 Arthroscopy, shoulder, with rotator cuff repair FIBERTAPE FDA Start: 03-21-2020 Arthroscopy, shoulder, with rotator cuff repair FIBERTAPE FDA Start: 03-21-2020 Arthroscopy, shoulder, with rotator cuff repair FIBERTAPE AR-[id number] FDA Start: 03-21-2020 Arthroscopy, shoulder, with rotator cuff repair FIBERTAPE AR-[id number] FDA Start: 03-21-2020 Arthroscopy, shoulder, with rotator cuff repair SWIVELOCK,4.75 DOUBLE LOCK FDA Start: 03-21-2020 Arthroscopy, shoulder, with rotator cuff repair SWIVELOCK,4.75 DOUBLE LOCK FDA Start: 03-21-2020 Arthroscopy, shoulder, with rotator cuff repair FIBERTAPE FDA Start: 03-21-2020 Arthroscopy, shoulder, with rotator cuff repair FIBERTAPE FDA Start: 03-21-2020 Arthroscopy, shoulder, with rotator cuff repair FIBERTAPE AR-[id number] FDA Start: 03-21-2020 Arthroscopy, shoulder, with rotator cuff repair FIBERTAPE AR-[id number] FDA Start: 03-21-2020 Arthroscopy, shoulder, with rotator cuff repair SWIVELOCK,4.75 DOUBLE LOCK FDA Start: 03-21-2020 Arthroscopy, shoulder, with rotator cuff repair SWIVELOCK,4.75 DOUBLE LOCK FDA Start: 03-21-2020 Arthroscopy, shoulder, with rotator cuff repair FIBERTAPE FDA Start: 03-21-2020 Arthroscopy, shoulder, with rotator cuff repair FIBERTAPE FDA Start: 03-21-2020 Arthroscopy, shoulder, with rotator cuff repair FIBERTAPE AR-[id number] FDA Start: 03-21-2020 Arthroscopy, shoulder, with rotator cuff repair FIBERTAPE AR-[id number] FDA Start: 03-21-2020 Arthroscopy, shoulder, with rotator cuff repair SWIVELOCK,4.75 DOUBLE LOCK FDA Start: 03-21-2020 Arthroscopy, shoulder, with rotator cuff repair SWIVELOCK,4.75 DOUBLE LOCK FDA Start: 03-21-2020 Arthroscopy, shoulder, with rotator cuff repair FIBERTAPE FDA Start: 03-21-2020 Arthroscopy, shoulder, with rotator cuff repair FIBERTAPE FDA Start: 03-21-2020 Arthroscopy, shoulder, with rotator cuff repair FIBERTAPE AR-[id number] FDA Start: 03-21-2020 Arthroscopy, shoulder, with rotator cuff repair FIBERTAPE AR-[id number] FDA Start: 03-21-2020 Arthroscopy, shoulder, with rotator cuff repair SWIVELOCK,4.75 DOUBLE LOCK FDA Start: 03-21-2020 Arthroscopy, shoulder, with rotator cuff repair SWIVELOCK,4.75 DOUBLE LOCK FDA Start: 03-21-2020 Arthroscopy, shoulder, with rotator cuff repair FIBERTAPE FDA Start: 03-21-2020 Arthroscopy, shoulder, with rotator cuff repair FIBERTAPE FDA Start: 03-21-2020 Arthroscopy, shoulder, with rotator cuff repair FIBERTAPE AR-[id number] FDA Start: 03-21-2020 Arthroscopy, shoulder, with rotator cuff repair FIBERTAPE AR-[id number] FDA Start: 03-21-2020 Arthroscopy, shoulder, with rotator cuff repair SWIVELOCK,4.75 DOUBLE LOCK FDA Start: 03-21-2020 Arthroscopy, shoulder, with rotator cuff repair SWIVELOCK,4.75 DOUBLE LOCK FDA Start: 03-21-2020 Arthroscopy, shoulder, with rotator cuff repair FIBERTAPE FDA Start: 03-21-2020 Arthroscopy, shoulder, with rotator cuff repair FIBERTAPE FDA Start: 03-21-2020 Arthroscopy, shoulder, with rotator cuff repair FIBERTAPE AR-[id number] FDA Start: 03-21-2020 Arthroscopy, shoulder, with rotator cuff repair FIBERTAPE AR-[id number] FDA Start: 03-21-2020 Arthroscopy, shoulder, with rotator cuff repair SWIVELOCK,4.75 DOUBLE LOCK FDA Start: 03-21-2020 Arthroscopy, shoulder, with rotator cuff repair SWIVELOCK,4.75 DOUBLE LOCK FDA Start: 03-21-2020 Arthroscopy, shoulder, with rotator cuff repair FIBERTAPE FDA Start: 03-21-2020 Arthroscopy, shoulder, with rotator cuff repair FIBERTAPE FDA Start: 03-21-2020 Arthroscopy, shoulder, with rotator cuff repair FIBERTAPE AR-[id number] FDA Start: 03-21-2020 Arthroscopy, shoulder, with rotator cuff repair FIBERTAPE AR-[id number] FDA Start: 03-21-2020 Arthroscopy, shoulder, with rotator cuff repair SWIVELOCK,4.75 DOUBLE LOCK FDA Start: 03-21-2020 Arthroscopy, shoulder, with rotator cuff repair SWIVELOCK,4.75 DOUBLE LOCK FDA Start: 03-21-2020 Arthroscopy, shoulder, with rotator cuff repair FIBERTAPE FDA Start: 03-21-2020 Arthroscopy, shoulder, with rotator cuff repair FIBERTAPE FDA Start: 03-21-2020 Arthroscopy, shoulder, with rotator cuff repair FIBERTAPE AR-[id number] FDA Start: 03-21-2020 Arthroscopy, shoulder, with rotator cuff repair FIBERTAPE AR-[id number] FDA Start: 03-21-2020 Arthroscopy, shoulder, with rotator cuff repair SWIVELOCK,4.75 DOUBLE LOCK FDA Start: 03-21-2020 Arthroscopy, shoulder, with rotator cuff repair SWIVELOCK,4.75 DOUBLE LOCK FDA Start: 03-21-2020 Arthroscopy, shoulder, with rotator cuff repair FIBERTAPE FDA Start: 03-21-2020 Arthroscopy, shoulder, with rotator cuff repair FIBERTAPE FDA Start: 03-21-2020 Arthroscopy, shoulder, with rotator cuff repair FIBERTAPE AR-[id number] FDA Start: 03-21-2020 Arthroscopy, shoulder, with rotator cuff repair FIBERTAPE AR-[id number] FDA Start: 03-21-2020 Arthroscopy, shoulder, with rotator cuff repair SWIVELOCK,4.75 DOUBLE LOCK FDA Start: 03-21-2020 Arthroscopy, shoulder, with rotator cuff repair SWIVELOCK,4.75 DOUBLE LOCK FDA Start: 03-21-2020 Arthroscopy, shoulder, with rotator cuff repair FIBERTAPE FDA Start: 03-21-2020 Arthroscopy, shoulder, with rotator cuff repair FIBERTAPE FDA Start: 03-21-2020 Arthroscopy, shoulder, with rotator cuff repair FIBERTAPE AR-[id number] FDA Start: 03-21-2020 Arthroscopy, shoulder, with rotator cuff repair FIBERTAPE AR-[id number] FDA Start: 03-21-2020 Arthroscopy, shoulder, with rotator cuff repair SWIVELOCK,4.75 DOUBLE LOCK FDA Start: 03-21-2020 Arthroscopy, shoulder, with rotator cuff repair SWIVELOCK,4.75 DOUBLE LOCK FDA Start: 03-21-2020 Arthroscopy, shoulder, with rotator cuff repair FIBERTAPE FDA Start: 03-21-2020 Arthroscopy, shoulder, with rotator cuff repair FIBERTAPE FDA Start: 03-21-2020 Arthroscopy, shoulder, with rotator cuff repair FIBERTAPE AR-[id number] FDA Start: 03-21-2020 Arthroscopy, shoulder, with rotator cuff repair FIBERTAPE AR-[id number] FDA Start: 03-21-2020 Arthroscopy, shoulder, with rotator cuff repair SWIVELOCK,4.75 DOUBLE LOCK FDA Start: 03-21-2020 Arthroscopy, shoulder, with rotator cuff repair SWIVELOCK,4.75 DOUBLE LOCK FDA Start: 03-21-2020 .062 GUIDE WIRE W/TROCAR TIP FDA Start: 05-17-2017 1.7MM DRILL BIT FOR PLATE/SCRW FDA Start: 05-17-2017 12MM PLAPLE FDA Start: 05-17-2017 2.3MM CORTICAL SCREW FDA Star t: 05-17-2017 CPR MINI SCOPRION DX FDA Star t: 05-17-2017 K-WIRE,.062 X 4 DBL BAYONET FDA Start: 05-17-2017 FIBERTAPE AR-[id number] FDA Start: 02-04-2019 SPEEDBRIDGE 4.75 FDA Start: 02-04-2019 .062 GUIDE WIRE W/TROCAR TIP FDA Start: 05-17-2017 1.7MM DRILL BIT FOR PLATE/SCRW FDA Start: 05-17-2017 12MM PLAPLE FDA Start: 05-17-2017 2.3MM CORTICAL SCREW FDA Star t: 05-17-2017 CPR MINI SCOPRION DX FDA Star t: 05-17-2017 K-WIRE,.062 X 4 DBL BAYONET FDA Start: 05-17-2017 FIBERTAPE AR-[id number] FDA Start: 02-04-2019 SPEEDBRIDGE 4.75 FDA Start: 02-04-2019 .062 GUIDE WIRE W/TROCAR TIP FDA Start: 05-17-2017 1.7MM DRILL BIT FOR PLATE/SCRW FDA Start: 05-17-2017 12MM PLAPLE FDA Start: 05-17-2017 2.3MM CORTICAL SCREW FDA Star t: 05-17-2017 CPR MINI SCOPRION DX FDA Star t: 05-17-2017 K-WIRE,.062 X 4 DBL BAYONET FDA Start: 05-17-2017 FIBERTAPE AR-[id number] FDA Start: 02-04-2019 SPEEDBRIDGE 4.75 FDA Start: 02-04-2019 .062 GUIDE WIRE W/TROCAR TIP FDA Start: 05-17-2017 1.7MM DRILL BIT FOR PLATE/SCRW FDA Start: 05-17-2017 12MM PLAPLE FDA Start: 05-17-2017 2.3MM CORTICAL SCREW FDA Star t: 05-17-2017 CPR MINI SCOPRION DX FDA Star t: 05-17-2017 K-WIRE,.062 X 4 DBL BAYONET FDA Start: 05-17-2017 FIBERTAPE AR-[id number] FDA Start: 02-04-2019 SPEEDBRIDGE 4.75 FDA Start: 02-04-2019 .062 GUIDE WIRE W/TROCAR TIP FDA Start: 05-17-2017 1.7MM DRILL BIT FOR PLATE/SCRW FDA Start: 05-17-2017 12MM PLAPLE FDA Start: 05-17-2017 2.3MM CORTICAL SCREW FDA Star t: 05-17-2017 CPR MINI SCOPRION DX FDA Star t: 05-17-2017 K-WIRE,.062 X 4 DBL BAYONET FDA Start: 05-17-2017 FIBERTAPE AR-[id number] FDA Start: 02-04-2019 SPEEDBRIDGE 4.75 FDA Start: 02-04-2019 .062 GUIDE WIRE W/TROCAR TIP FDA Start: 05-17-2017 1.7MM DRILL BIT FOR PLATE/SCRW FDA Start: 05-17-2017 12MM PLAPLE FDA Start: 05-17-2017 2.3MM CORTICAL SCREW FDA Star t: 05-17-2017 CPR MINI SCOPRION DX FDA Star t: 05-17-2017 K-WIRE,.062 X 4 DBL BAYONET FDA Start: 05-17-2017 FIBERTAPE AR-[id number] FDA Start: 02-04-2019 SPEEDBRIDGE 4.75 FDA Start: 02-04-2019 .062 GUIDE WIRE W/TROCAR TIP FDA Start: 05-17-2017 1.7MM DRILL BIT FOR PLATE/SCRW FDA Start: 05-17-2017 12MM PLAPLE FDA Start: 05-17-2017 2.3MM CORTICAL SCREW FDA Star t: 05-17-2017 CPR MINI SCOPRION DX FDA Star t: 05-17-2017 K-WIRE,.062 X 4 DBL BAYONET FDA Start: 05-17-2017 FIBERTAPE AR-[id number] FDA Start: 02-04-2019 SPEEDBRIDGE 4.75 FDA Start: 02-04-2019 .062 GUIDE WIRE W/TROCAR TIP FDA Start: 05-17-2017 1.7MM DRILL BIT FOR PLATE/SCRW FDA Start: 05-17-2017 12MM PLAPLE FDA Start: 05-17-2017 2.3MM CORTICAL SCREW FDA Star t: 05-17-2017 CPR MINI SCOPRION DX FDA Star t: 05-17-2017 K-WIRE,.062 X 4 DBL BAYONET FDA Start: 05-17-2017 FIBERTAPE AR-[id number] FDA Start: 02-04-2019 SPEEDBRIDGE 4.75 FDA Start: 02-04-2019 .062 GUIDE WIRE W/TROCAR TIP FDA Start: 05-17-2017 1.7MM DRILL BIT FOR PLATE/SCRW FDA Start: 05-17-2017 12MM PLAPLE FDA Start: 05-17-2017 2.3MM CORTICAL SCREW FDA Star t: 05-17-2017 CPR MINI SCOPRION DX FDA Star t: 05-17-2017 K-WIRE,.062 X 4 DBL BAYONET FDA Start: 05-17-2017 FIBERTAPE AR-[id number] FDA Start: 02-04-2019 SPEEDBRIDGE 4.75 FDA Start: 02-04-2019 .062 GUIDE WIRE W/TROCAR TIP FDA Start: 05-17-2017 1.7MM DRILL BIT FOR PLATE/SCRW FDA Start: 05-17-2017 12MM PLAPLE FDA Start: 05-17-2017 2.3MM CORTICAL SCREW FDA Star t: 05-17-2017 CPR MINI SCOPRION DX FDA Star t: 05-17-2017 K-WIRE,.062 X 4 DBL BAYONET FDA Start: 05-17-2017 FIBERTAPE AR-[id number] FDA Start: 02-04-2019 SPEEDBRIDGE 4.75 FDA Start: 02-04-2019 .062 GUIDE WIRE W/TROCAR TIP FDA Start: 05-17-2017 1.7MM DRILL BIT FOR PLATE/SCRW FDA Start: 05-17-2017 12MM PLAPLE FDA Start: 05-17-2017 2.3MM CORTICAL SCREW FDA Star t: 05-17-2017 CPR MINI SCOPRION DX FDA Star t: 05-17-2017 K-WIRE,.062 X 4 DBL BAYONET FDA Start: 05-17-2017 FIBERTAPE AR-7535 FDA Start: 02-04-2019 SPEEDBRIDGE 4.75 FDA Start: 02-04-2019 .062 GUIDE WIRE W/TROCAR TIP FDA Start: 05-17-2017 1.7MM DRILL BIT FOR PLATE/SCRW FDA Start: 05-17-2017 12MM PLAPLE FDA Start: 05-17-2017 2.3MM CORTICAL SCREW FDA Star t: 05-17-2017 CPR MINI SCOPRION DX FDA Star t: 05-17-2017 K-WIRE,.062 X 4 DBL BAYONET FDA Start: 05-17-2017 FIBERTAPE AR-7535 FDA Start: 02-04-2019 SPEEDBRIDGE 4.75 FDA Start: 02-04-2019 ([id number]) Bare-metal tracheal/bronchial/v ascular stent ()[id number] FDA Start: 10-03-2022 Bare-metal tracheal/bronchial/v ascular stent ()[id number] FDA Start: 10-03-2022 .062 GUIDE WIRE W/TROCAR TIP FDA Start: 05-17-2017 1.7MM DRILL BIT FOR PLATE/SCRW FDA Start: 05-17-2017 12MM PLAPLE FDA Start: 05-17-2017 2.3MM CORTICAL SCREW FDA Star t: 05-17-2017 CPR MINI SCOPRION DX FDA Star t: 05-17-2017 K-WIRE,.062 X 4 DBL BAYONET FDA Start: 05-17-2017 FIBERTAPE AR-7535 FDA Start: 02-04-2019 SPEEDBRIDGE 4.75 FDA Start: 02-04-2019 .062 GUIDE WIRE W/TROCAR TIP FDA Start: 05-17-2017 1.7MM DRILL BIT FOR PLATE/SCRW FDA Start: 05-17-2017 12MM PLAPLE FDA Start: 05-17-2017 2.3MM CORTICAL SCREW FDA Star t: 05-17-2017 CPR MINI SCOPRION DX FDA Star t: 05-17-2017 K-WIRE,.062 X 4 DBL BAYONET FDA Start: 05-17-2017 FIBERTAPE AR-7535 FDA Start: 02-04-2019 SPEEDBRIDGE 4.75 FDA Start: 02-04-2019 .062 GUIDE WIRE W/TROCAR TIP FDA Start: 05-17-2017 1.7MM DRILL BIT FOR PLATE/SCRW FDA Start: 05-17-2017 12MM PLAPLE FDA Start: 05-17-2017 2.3MM CORTICAL SCREW FDA Star t: 05-17-2017 CPR MINI SCOPRION DX FDA Star t: 05-17-2017 K-WIRE,.062 X 4 DBL BAYONET FDA Start: 05-17-2017 FIBERTAPE AR-7535 FDA Start: 02-04-2019 SPEEDBRIDGE 4.75 FDA Start: 02-04-2019 .062 GUIDE WIRE W/TROCAR TIP FDA Start: 05-17-2017 1.7MM DRILL BIT FOR PLATE/SCRW FDA Start: 05-17-2017 12MM PLAPLE FDA Start: 05-17-2017 2.3MM CORTICAL SCREW FDA Star t: 05-17-2017 CPR MINI SCOPRION DX FDA Star t: 05-17-2017 K-WIRE,.062 X 4 DBL BAYONET FDA Start: 05-17-2017 FIBERTAPE AR-7535 FDA Start: 02-04-2019 SPEEDBRIDGE 4.75 FDA Start: 02-04-2019 .062 GUIDE WIRE W/TROCAR TIP FDA Start: 05-17-2017 1.7MM DRILL BIT FOR PLATE/SCRW FDA Start: 05-17-2017 12MM PLAPLE FDA Start: 05-17-2017 2.3MM CORTICAL SCREW FDA Star t: 05-17-2017 CPR MINI SCOPRION DX FDA Star t: 05-17-2017 K-WIRE,.062 X 4 DBL BAYONET FDA Start: 05-17-2017 FIBERTAPE AR-7535 FDA Start: 02-04-2019 SPEEDBRIDGE 4.75 FDA Start: 02-04-2019 .062 GUIDE WIRE W/TROCAR TIP FDA Start: 05-17-2017 1.7MM DRILL BIT FOR PLATE/SCRW FDA Start: 05-17-2017 12MM PLAPLE FDA Start: 05-17-2017 2.3MM CORTICAL SCREW FDA Star t: 05-17-2017 CPR MINI SCOPRION DX FDA Star t: 05-17-2017 K-WIRE,.062 X 4 DBL BAYONET FDA Start: 05-17-2017 FIBERTAPE AR-7535 FDA Start: 02-04-2019 SPEEDBRIDGE 4.75 FDA Start: 02-04-2019 .062 GUIDE WIRE W/TROCAR TIP FDA Start: 05-17-2017 1.7MM DRILL BIT FOR PLATE/SCRW FDA Start: 05-17-2017 12MM PLAPLE FDA Start: 05-17-2017 2.3MM CORTICAL SCREW FDA Star t: 05-17-2017 CPR MINI SCOPRION DX FDA Star t: 05-17-2017 K-WIRE,.062 X 4 DBL BAYONET FDA Start: 05-17-2017 FIBERTAPE AR-7535 FDA Start: 02-04-2019 SPEEDBRIDGE 4.75 FDA Start: 02-04-2019 .062 GUIDE WIRE W/TROCAR TIP FDA Start: 05-17-2017 1.7MM DRILL BIT FOR PLATE/SCRW FDA Start: 05-17-2017 12MM PLAPLE FDA Start: 05-17-2017 2.3MM CORTICAL SCREW FDA Star t: 05-17-2017 CPR MINI SCOPRION DX FDA Star t: 05-17-2017 K-WIRE,.062 X 4 DBL BAYONET FDA Start: 05-17-2017 FIBERTAPE AR-7535 FDA Start: 02-04-2019 SPEEDBRIDGE 4.75 FDA Start: 02-04-2019 .062 GUIDE WIRE W/TROCAR TIP FDA Start: 05-17-2017 1.7MM DRILL BIT FOR PLATE/SCRW FDA Start: 05-17-2017 12MM PLAPLE FDA Start: 05-17-2017 2.3MM CORTICAL SCREW FDA Star t: 05-17-2017 CPR MINI SCOPRION DX FDA Star t: 05-17-2017 K-WIRE,.062 X 4 DBL BAYONET FDA Start: 05-17-2017 FIBERTAPE AR-7535 FDA Start: 02-04-2019 SPEEDBRIDGE 4.75 FDA Start: 02-04-2019 Goals Date Patient Goal Desired Activity /State Functional Status Date Assessment Result Facility 02-15-2022 Functional status Bathroom Privilege [facility] Work Phone: Mental Status Date Assessment Result Facility 06-11-2024 Cognitive function Voice/Name [facility] Work Phone: 02-15-2022 Cognitive function Voice/Name [facility] Work Phone: 02-09-2022 Cognitive function Voice/Name;Touch/Shaki ng [facility] Work Phone: Clinical Notes 03-24-2008 to 12-08-2024 Addendum Note - Marguerite Daily APRN.[facility] - 12/08/2024 3:46 PM EDTAddendum Note - Marguerite Daily APRN.[facility] - 12/08/2024 3:46 PM EDMarguerite New APRN.[facility] - 12/08/2024 2:39 PM EDTPatient Instructions Note Date & Type Note Facility 12-08-2024 Note Addended by: Aneta DAILY on: 12/08/2024 03:46 PM Modules accepted: Orders [facility] 12-08-2024 Miscellaneous Notes Addended by: MARGUERITE DAILY on: 12/08/2024 03:46 PM Modules accepted: Orders documented in this encounter [facility] 12-08-2024 Note HNO ID: [id number] Author: MARGUERITE DAILY APRN.CNP Service: ? Author Type: Nurse Practitioner Type: Progress Notes Filed: 12/08/2024 15:46 Note Text: [facility] Subjective HPI HPI Karolina Ahn is a 59 year old female who presents today for CC of left second toe injury. This started 1 day ago/kicked furniture. Has tried otc medication for relief. Symptoms are worsened by walking. Denies numbness/tingling. .Patient presents with: left 2nd toe pain: X 1 day-hit toe on couch last night PAST MEDICAL HISTORY Diagnosis Date Anxiety state, unspecified Bunion 02/27/2006 Enthesopathy of unspecified site 10/09/2006 Hallux valgus (acquired) 02/18/2006 Other hammer toe (acquired) 02/27/2006 Pain in limb 08/05/2006 Stress fracture of the metatarsals 08/05/2006 PAST SURGICAL HISTORY Procedure Laterality Date COLONOSCOPY FLX DX W/COLLJ SPEC WHEN PFRMD 02/01/2011 Normal Colonoscopy CYSTOSCOPY 02/15/[address] Nicole, no exposure of urethral mesh, 1 cm calculus bladder wall removed LIG/TRNSXJ FLP TUBE ABDL/VAG APPR UNI/BI NEUROPLASTY AND/TRANSPOS MEDIAN NRV CARPAL TUNNE 04/29/2004 both PAST SURGICAL HISTORY OF 06/28/2003 right bunionectomy PAST SURGICAL HISTORY OF 04/29/2002 left bunionectomy- had infection after PAST SURGICAL HISTORY OF 04/24/2006 right bunionectomy RPR UMBILICAL HRNA 5 YRS/> REDUCIBLE 04/26/2008 Simple S SLING BLADDER 04/06/2014 Placement of tension free vaginal sling, cystoscopy (Dr. Luis, [facility]) VAGINAL HYSTERECTOMY 04/06/2014 LAVH, BSO, anterior and posterior repair (Dr. Muniz, [facility]) ALLERGIES Hydrocodone-Acetaminophen, Aspirin, and Oxycodone MEDICATIONS Surgical Lubricant Jelly gel For MRI Female Pelvis, MRI department to provide. Administer intra-vaginal Surgilube immediately prior the MRI procedure (total amount to patient toleranace). Surgical Lubricant Jelly gel For MRI Female Pelvis, MRI department to provide. Administer intra-vaginal Surgilube immediately prior the MRI procedure (total amount to patient toleranace). dicyclomine (BENTYL) 20 mg tablet Dicyclomine 20 mg Tablet Active 20 mg PO TWICE A DAY October 02, 2022 12:00am cyanocobalamin, vitamin B-12, 5,000 mcg ODT 3,000 mcg. estradiol (ESTRACE) 0.01 % (0.1 mg/gram) vaginal cream Use 1 g vaginally two times a week. Please use the applicator provided in the package. phenazopyridine (PYRIDIUM) 200 mg tablet Take 1 tablet by mouth three times daily as needed. apixaban (ELIQUIS ORAL) Take by mouth. pitavastatin calcium (LIVALO ORAL) Take by mouth. Cetirizine 10 mg cap Take by mouth. sertraline (ZOLOFT) 100 mg tablet Take 100 mg by mouth once daily. ranitidine (ZANTAC) 150 mg ORAL tablet Take 1 tablet by mouth twice daily. (Patient not taking: Reported on 10/23/2024) FAMILY HISTORY Problem Relation Age of Onset Allergies Mother Diabetes Mother Thyroid Mother Hypertension Father Lipids Father SOCIAL HISTORY[1] Review of Systems Objective BP 118/72 Pulse 73 Temp 36.7 ?C (98 ?F) (Tympanic) Resp 18 Wt 64.2 kg (141 lb 8.6 oz) LMP 04/05/2011 SpO2 98% BMI 25.07 kg/m? Physical Exam Constitutional: General: She is not in acute distress. Appearance: She is not toxic-appearing or diaphoretic. HENT: Head: Normocephalic and atraumatic. Pulmonary: Effort: Pulmonary effort is normal. No accessory muscle usage or respiratory distress. Musculoskeletal: Feet: Neurological: Mental Status: She is alert and oriented to person, place, and time. ASSESSMENT/PLAN: 1. Closed nondisplaced fracture of distal phalanx of lesser toe of left foot, initial encounter - ICD9: 826.0, ICD10: S92.535A (primary diagnosis) Post op shoe provided F/u with transfusion aide in 10 days if s/s persist. Prophylactic atb ordered F/u for s/s infection. 2. Injury of toe on left foot, initial encounter - ICD9: 959.7, ICD10: S99.922A - XR TOE AP/LAT/OBL LEFT IMPRESSION: Probable intra-articular fracture of the base of the distal phalanx of the second digit Dictated by : DO Marguerite SAWYER APRN.AUTO PARTS HANDLER History and Record Review External record(s) reviewed: prior outpatient record. Disposition The patient was discharged. Procedures [1] Social History Tobacco Use Smoking status: Never Smokeless tobacco: Never Vaping Use Vaping status: Never Used Substance Use Topics Alcohol use: No Drug use: No [facility] [place] 12-08-2024 History of Presen t illness Narrative Images from the original note were not included. [facility] Subjective HPI HPI Karolina Ahn is a 59 year old female who presents today for CC of left second toe injury. This started 1 day ago/kicked furniture. Has tried otc medication for relief. Symptoms are worsened by walking. Denies numbness/tingling. .Patient presents with: left 2nd toe pain: X 1 day-hit toe on couch last night PAST MEDICAL HISTORY Diagnosis Date Anxiety state, unspecified Bunion 02/27/2006 Enthesopathy of unspecified site 10/09/2006 Hallux valgus (acquired) 02/18/2006 Other hammer toe (acquired) 02/27/2006 Pain in limb 08/05/2006 Stress fracture of the metatarsals 08/05/2006 PAST SURGICAL HISTORY Procedure Laterality Date COLONOSCOPY FLX DX W/COLLJ SPEC WHEN PFRMD 02/01/2011 Normal Colonoscopy CYSTOSCOPY 02/15/[address] Nicole, no exposure of urethral mesh, 1 cm calculus bladder wall removed LIG/TRNSXJ FLP TUBE ABDL/VAG APPR UNI/BI NEUROPLASTY &/TRANSPOS MEDIAN NRV CARPAL TUNNE 04/29/2004 both PAST SURGICAL HISTORY OF 06/28/2003 right bunionectomy PAST SURGICAL HISTORY OF 04/29/2002 left bunionectomy- had infection after PAST SURGICAL HISTORY OF 04/24/2006 right bunionectomy RPR UMBILICAL HRNA 5 YRS/> REDUCIBLE 04/26/2008 Simple S SLING BLADDER 04/06/2014 Placement of tension free vaginal sling, cystoscopy (Dr. Luis, [facility]) VAGINAL HYSTERECTOMY 04/06/2014 LAVH, BSO, anterior and posterior repair (Dr. Muniz, [facility]) ALLERGIES Hydrocodone-Acetaminophen, Aspirin, and Oxycodone MEDICATIONS Surgical Lubricant Jelly gel For MRI Female Pelvis, MRI department to provide. Administer intra-vaginal Surgilube immediately prior the MRI procedure (total amount to patient toleranace). Surgical Lubricant Jelly gel For MRI Female Pelvis, MRI department to provide. Administer intra-vaginal Surgilube immediately prior the MRI procedure (total amount to patient toleranace). dicyclomine (BENTYL) 20 mg tablet Dicyclomine 20 mg Tablet Active 20 mg PO TWICE A DAY October 02, 2022 12:00am cyanocobalamin, vitamin B-12, 5,000 mcg ODT 3,000 mcg. estradiol (ESTRACE) 0.01 % (0.1 mg/gram) vaginal cream Use 1 g vaginally two times a week. Please use the applicator provided in the package. phenazopyridine (PYRIDIUM) 200 mg tablet Take 1 tablet by mouth three times daily as needed. apixaban (ELIQUIS ORAL) Take by mouth. pitavastatin calcium (LIVALO ORAL) Take by mouth. Cetirizine 10 mg cap Take by mouth. sertraline (ZOLOFT) 100 mg tablet Take 100 mg by mouth once daily. ranitidine (ZANTAC) 150 mg ORAL tablet Take 1 tablet by mouth twice daily. (Patient not taking: Reported on 10/23/2024) FAMILY HISTORY Problem Relation Age of Onset Allergies Mother Diabetes Mother Thyroid Mother Hypertension Father Lipids Father SOCIAL HISTORY[1] Review of Systems Objective BP 118/72 Pulse 73 Temp 36.7 C (98 F) (Tympanic) Resp 18 Wt 64.2 kg (141 lb 8.6 oz) LMP 04/05/2011 SpO2 98% BMI 25.07 kg/m Physical Exam Constitutional: General: She is not in acute distress. Appearance: She is not toxic-appearing or diaphoretic. HENT: Head: Normocephalic and atraumatic. Pulmonary: Effort: Pulmonary effort is normal. No accessory muscle usage or respiratory distress. Musculoskeletal: Feet: Neurological: Mental Status: She is alert and oriented to person, place, and time. ASSESSMENT/PLAN: 1. Closed nondisplaced fracture of distal phalanx of lesser toe of left foot, initial encounter - ICD9: 826.0, ICD10: S92.535A (primary diagnosis) Post op shoe provided F/u with transfusion aide in 10 days if s/s persist. Prophylactic atb ordered F/u for s/s infection. 2. Injury of toe on left foot, initial encounter - ICD9: 959.7, ICD10: S99.922A - XR TOE AP/LAT/OBL LEFT IMPRESSION: Probable intra-articular fracture of the base of the distal phalanx of the second digit Dictated by : DO Marguerite SAWYER APRN.CNP History and Record Review External record(s) reviewed: prior outpatient record. Disposition The patient was discharged. Procedures [1] Social History Tobacco Use Smoking status: Never Smokeless tobacco: Never Vaping Use Vaping status: Never Used Substance Use Topics Alcohol use: No Drug use: No documented in this encounter [facility] 12-08-2024 History of Presen t illness Narrative Radiology Service Progress Note PATIENT NAME: Karolina Ahn DATE OF SERVICE: December 08, 2024 TIME: 2:23 PM PATIENT IDENTITY VERIFICATION COMPLETED USING TWO (2) IDENTIFIERS: Name and Date of confirmed by patient verbally. FALL SCREENING: Has the patient had 2 falls in the last year or 1 fall with injury or currently using an Ambulatory Assistive Device (Walker, Cane, Wheelchair, Crutches, etc.)? No PATIENT GENDER DATA: Assigned female at . status: : No status: NO. PATIENT RELEVANT IMPLANT DATA REVIEWED: Yes PATIENT PRESENTS WITH AN IMPLANTABLE OR ATTACHED MEDICAL INTERPRETER: No RADIOLOGY DEPARTMENT: General X-ray: Exam(s) Completed: Lower Extremity X-Ray(s): Toes, Left 2nd toe PERIPHERAL IV DATA: Not applicable SIGNED BY: LÁZARO Ko) December 08, 2024 2:23 PM documented in this encounter [facility] 12-08-2024 Note HNO ID: [id number] Author: SADE DAVILA RT(R) Service: ? Author Type: Tandem Mill Operator Type: Progress Notes Filed: 12/08/2024 14:35 Note Text: Radiology Service Progress Note PATIENT NAME: Karolina Ahn DATE OF SERVICE: December 08, 2024 TIME: 2:23 PM PATIENT IDENTITY VERIFICATION COMPLETED USING TWO (2) IDENTIFIERS: Name and Date of confirmed by patient verbally. FALL SCREENING: Has the patient had 2 falls in the last year or 1 fall with injury or currently using an Ambulatory Assistive Device (Walker, Cane, Wheelchair, Crutches, etc.)? No PATIENT GENDER DATA: Assigned female at . status: : No status: NO. PATIENT RELEVANT IMPLANT DATA REVIEWED: Yes PATIENT PRESENTS WITH AN IMPLANTABLE OR ATTACHED MEDICAL INTERPRETER: No RADIOLOGY DEPARTMENT: General X-ray: Exam(s) Completed: Lower Extremity X-Ray(s): Toes, Left 2nd toe PERIPHERAL IV DATA: Not applicable SIGNED BY: RT Stefani(Jake) December 08, 2024 2:23 PM [facility] [place] 11-24-2024 Note HNO ID: [id number] Author: FÁTIMA SANTILLAN MD Service: ? Author Type: Physician Type: Progress Notes Filed: 11/24/2024 23:13 Note Text: Medical and Symptom History: PFDI-20 Do you: Usually experience pressure in the lower abdomen? Yes, moderately bothersome (3) Usually experience heaviness or dullness in the pelvic area? N/a Usually have a bulge or something falling out that you can see or feel in your vaginal area? No (0) Ever have to push on the vagina or around the rectum to have or complete a bowel movement? Yes, moderately bothersome (3) Usually experience a feeling of incomplete bladder emptying? Yes, not at all bothersome (1) Ever have to push up on a bulge in the vaginal area with your fingers to start or complete urination? No (0) Feel you need to strain too hard to have a bowel movement? Yes, moderately bothersome (3) Feel you have not completely emptied your bowels at the end of a bowel movement? Yes, moderately bothersome (3) Usually lose stool beyond your control if your stool is well formed? No (0) Usually lose stool beyond your control if your stool is loose? No (0) Usually lose gas from the rectum beyond your control? Yes, not at all bothersome (1) Usually have pain when you pass your stool? Yes, somewhat bothersome (2) Experience a strong sense of urgency and have to pichardo to the bathroom to have a bowel movement? Yes, not at all bothersome (1) Does part of your bowel ever pass through the rectum and bulge outside during or after a bowel movement? No (0) Usually experience frequent urination? Yes, somewhat bothersome (2) Usually experience urine leakage associated with a feeling of urgency, that is, a strong sensation of needing to go to the bathroom? No (0) Usually experience urine leakage related to coughing, sneezing or laughing? No (0) Usually experience small amounts of urine leakage (that is, drops)? Yes, not at all bothersome (1) Usually experience difficulty emptying your bladder? Yes, not at all bothersome (1) Usually experience pain or discomfort in the lower abdomen or genital region? Yes, moderately bothersome (3) Do you have pain associated with your prolapse (not pressure or fullness) N/A [facility] 11-24-2024 History of Presen t illness Narrative Medical and Symptom History: PFDI-20 Do you: Usually experience pressure in the lower abdomen? Yes, moderately bothersome (3) Usually experience heaviness or dullness in the pelvic area? N/a Usually have a bulge or something falling out that you can see or feel in your vaginal area? No (0) Ever have to push on the vagina or around the rectum to have or complete a bowel movement? Yes, moderately bothersome (3) Usually experience a feeling of incomplete bladder emptying? Yes, not at all bothersome (1) Ever have to push up on a bulge in the vaginal area with your fingers to start or complete urination? No (0) Feel you need to strain too hard to have a bowel movement? Yes, moderately bothersome (3) Feel you have not completely emptied your bowels at the end of a bowel movement? Yes, moderately bothersome (3) Usually lose stool beyond your control if your stool is well formed? No (0) Usually lose stool beyond your control if your stool is loose? No (0) Usually lose gas from the rectum beyond your control? Yes, not at all bothersome (1) Usually have pain when you pass your stool? Yes, somewhat bothersome (2) Experience a strong sense of urgency and have to pichardo to the bathroom to have a bowel movement? Yes, not at all bothersome (1) Does part of your bowel ever pass through the rectum and bulge outside during or after a bowel movement? No (0) Usually experience frequent urination? Yes, somewhat bothersome (2) Usually experience urine leakage associated with a feeling of urgency, that is, a strong sensation of needing to go to the bathroom? No (0) Usually experience urine leakage related to coughing, sneezing or laughing? No (0) Usually experience small amounts of urine leakage (that is, drops)? Yes, not at all bothersome (1) Usually experience difficulty emptying your bladder? Yes, not at all bothersome (1) Usually experience pain or discomfort in the lower abdomen or genital region? Yes, moderately bothersome (3) Do you have pain associated with your prolapse (not pressure or fullness) N/A Images from the original note were not included. [facility] NEW PATIENT CONSULT/HISTORY AND PHYSICAL PATIENT: Karolina Ahn (59 year old) REFERRING PROVIDER: PCP: Jimbo Dash MD ASSESSMENT/PLAN: 1. Recurrent bladder calculus. Calcification seen on today's cystoscopy represents foreign body reaction from prior mid urethral sling insertion. Outside operative reports reviewed. Sling placed in 2013 was retropubic approach. Patient has required 2 laser lithotripsies for bladder calculi. She has recurrent stone. Pelvic CT without contrast showed no lymphadenopathy/bilateral iliac stents. Recommend pelvic MRI with IV contrast to rule out pelvic inflammation/abscess or other associated pelvic findings associated with the bladder mesh erosion. Anticipating robotic assisted transabdominal removal of mesh. This will include intentional cystotomy with removal of foreign body with excision of mesh, bladder calculus and closure of cystotomy. Prior to robotic portion of the case, patient will need cystoscopy with bilateral ureteral stent insertion. Will finalize surgical plans once MRI pelvis obtained and reviewed. 2. Dyspareunia Patient developed pain with intercourse LAVH/BSO/AP repair mid urethral sling. She was diagnosed with vaginismus and recently seen by gynecology. She has been to pelvic floor PT in the past and may wish to return after managing current problem. Mesh erosion with foreign body reaction may be contributing to pain with intercourse. Patient will return to the office after MRI to review imaging and finalize surgical plans. Written and verbal health teaching given to patient, patient verbalizes understanding and agrees with treatment plan. Patient will call if worsening symptoms, no improvement, or any other concerns. Plan discussed. CHIEF COMPLAINT: Bladder stone HISTORY OF PRESENT ILLNESS: The patient has a history of a bladder stone. She was last seen by Martine KATZ on 09/24/2024. Other /urogyn providers: April Nicole MD Epic Kaleidoscope Analyst: STERLING Dunn The patient was seen by STERLING Dunn of DATA MINING ANALYST for 2-month history of dysuria and pelvic pain. She has a history of 2 bladder stones status post cystoscopy with laser lithotripsy by April Nicole MD in 2020 and in 2021. April Nicole MD repeated cystoscopy on 07/28/2024 and identified a 1 cm calcification dome of the bladder. The patient was sent for additional urologic evaluation. In 2013, patient underwent retropubic mid urethral sling concurrent with LAVH/BSO/AP repair. Recent imaging CT pelvis without IV contrast (10/13/2024): 4.5 mm calcification adherent to right anterolateral aspect of bladder wall. Mild thickening surrounding aspect bladder wall. Unremarkable iliac stents. Calcified atheromatous plaques iliac arteries. No lymphadenopathy. Current voiding concerns Daytime frequency: Every 2 hours Urinary urgency: Occasional Nighttime frequency: 1 Urge incontinence: No Stress incontinence: None s/p mid urethral sling Denies hesitancy, straining, slow stream Denies gross hematuria or dysuria Denies vaginal bleeding, discharge, odor ++ Dyspareunia; evaluated by gynecology recently. Plans to attend pelvic floor PT for vaginismus after addressing bladder stone. Fluid intake: 32 ounces Triggers: - Dietary: None identified - Situational: None identified The patient completed a PFDI-20 and I have reviewed and confirmed the responses documented by my nurse/MA at today's visit. Today's [id number] urine testing trace, intact blood, negative nitrite, small leukocyte. Previous Urogyn Procedures 04/06/2014, LAVH, BSO, anterior and posterior colporrhaphy (Kat Muniz MD) Previous Urologic Procedures 04/06/2014, cystoscopy and placement of retropubic tension-free vaginal sling, (Zander Luis MD-concurrent with prolapse surgery outlined above) 2020, laser lithotripsy bladder calculus) April Nicole MD). 02/15/2022, laser lithotripsy of bladder calculus (April Nicole MD)-op report reviewed. Findings are 1 cm bladder stone anterior bladder wall Current Urologic Medications None reported Previous HRT-blood clots Past DATA MINING ANALYST History: G 6 P 6 Vaginal deliveries: 6 section: 0 History of third or fourth degree laceration: Yes Weight of largest baby: 9 pounds 7 ounces Hysterectomy: Yes/2013/48 years old (LAVH/BSO/AP repair) Diagnosis: Bleeding prolapse Ovaries removed: Yes Menopause : yes, surgical at 48 HRT :no; HRT associated with blood clots Menstrual history: Menarche 12yo Sexual function Sexually active: Not sexually active; very painful since surgery in 2013 She is not sexually active. She does have dyspareunia. REVIEW OF SYSTEMS: Genitourinary: SEE HPI Constitutional: unintentional weight loss - denies, fevers - denies Cardiovascular: new or worsening chest pain - denies Respiratory: new or worsening shortness of breath - denies Gastrointestinal: constipation - denies, vomiting - denies Hematologic/Lymphatic: easy bleeding or bruising - denies ALLERGIES: ALLERGIES Allergen Reactions Hydrocodone-Acetami* Vomiting Aspirin tired and weak and made her feel weird can take Ibuprofen Oxycodone Itching MEDICATIONS: dicyclomine (BENTYL) 20 mg tablet Dicyclomine 20 mg Tablet Active 20 mg PO TWICE A DAY October 02, 2022 12:00am cyanocobalamin, vitamin B-12, 5,000 mcg ODT 3,000 mcg. Surgical Lubricant Jelly gel For MRI Female Pelvis, MRI department to provide. Administer intra-vaginal Surgilube immediately prior the MRI procedure (total amount to patient toleranace). estradiol (ESTRACE) 0.01 % (0.1 mg/gram) vaginal cream Use 1 g vaginally two times a week. Please use the applicator provided in the package. phenazopyridine (PYRIDIUM) 200 mg tablet Take 1 tablet by mouth three times daily as needed. apixaban (ELIQUIS ORAL) Take by mouth. pitavastatin calcium (LIVALO ORAL) Take by mouth. Cetirizine 10 mg cap Take by mouth. sertraline (ZOLOFT) 100 mg tablet Take 100 mg by mouth once daily. ranitidine (ZANTAC) 150 mg ORAL tablet Take 1 tablet by mouth twice daily. (Patient not taking: Reported on 10/23/2024) PAST HISTORY: PAST MEDICAL HISTORY Diagnosis Date Anxiety state, unspecified Bunion 02/27/2006 Enthesopathy of unspecified site 10/09/2006 Hallux valgus (acquired) 02/18/2006 Other hammer toe (acquired) 02/27/2006 Pain in limb 08/05/2006 Stress fracture of the metatarsals 08/05/2006 PAST SURGICAL HISTORY Procedure Laterality Date COLONOSCOPY FLX DX W/COLLJ SPEC WHEN PFRMD 02/01/2011 Normal Colonoscopy CYSTOSCOPY 02/15/[address] Nicole, no exposure of urethral mesh, 1 cm calculus bladder wall removed LIG/TRNSXJ FLP TUBE ABDL/VAG APPR UNI/BI NEUROPLASTY &/TRANSPOS MEDIAN NRV CARPAL TUNNE 04/29/2004 both PAST SURGICAL HISTORY OF 06/28/2003 right bunionectomy PAST SURGICAL HISTORY OF 04/29/2002 left bunionectomy- had infection after PAST SURGICAL HISTORY OF 04/24/2006 right bunionectomy RPR UMBILICAL HRNA 5 YRS/> REDUCIBLE 04/26/2008 Simple S SLING BLADDER 04/06/2014 Placement of tension free vaginal sling, cystoscopy (Dr. Luis, [facility]) VAGINAL HYSTERECTOMY 04/06/2014 LAVH, BSO, anterior and posterior repair (Dr. Muniz, [facility]) FAMILY HISTORY Problem Relation Age of Onset Allergies Mother Diabetes Mother Thyroid Mother Hypertension Father Lipids Father Social History Tobacco Use Smoking status: Never Smokeless tobacco: Never Vaping Use Vaping status: Never Used Substance Use Topics Alcohol use: No Drug use: No PHYSICAL EXAMINATION: LMP 04/05/2011 Constitutional: In no acute distress. Well appearing. Respiratory: Normal respiratory effort without use of accessory muscles.No Dyspnea Musculoskeletal: Ambulates without assistance without assistance. Cardiovascular: Regular rate. Capillary refill less than 3 seconds Gastrointestinal: Nondistended. No ventral hernias. No localizing rebound, guarding, tenderness, mass. Genitourinary: External genitalia without rash or lesion. Urethral meatus normal without prolapse, stenosis, or bleeding. No skene's gland abnormality Urethra normal without tenderness, scarring, or diverticulum. Urethra mobile The sensitive examination was discussed with the Patient or Patient's Authorized Plastic And Reconstructive Surgeon. As applicable, any other physician, advance practice provider, medical student, or other health professional student that will be observing or involved in the sensitive examination for educational or training purposes was discussed with the Patient or Authorized Plastic And Reconstructive Surgeon. The Patient or Authorized Plastic And Reconstructive Surgeon has agreed to proceed with the sensitive examination. (Sensitive examination includes inspection and/or palpation of the breasts, pelvis, prostate and anorectal regions) DATA: Clinic: URINALYSIS: GLUCOSE UA (POCT) Negative 10/23/2024 BILIRUBIN UA (POCT) Negative 10/23/2024 KETONE UA (POCT) Negative 10/23/2024 SPECIFIC GRAVITY UA (POCT) 1.020 10/23/2024 HEMOGLOBIN/BLOOD UA (POCT) Trace-intact 10/23/2024 PH UA (POCT) 7.0 10/23/2024 PROTEIN UA (POCT) Negative 10/23/2024 UROBILINOGEN UA (POCT) 0.2 10/23/2024 NITRITE UA (POCT) Negative 10/23/2024 LEUKOCYTES UA (POCT) Small 10/23/2024 COLOR UA (POCT) Yellow 10/23/2024 CLARITY UA (POCT) Clear 10/23/2024 Laboratory: No results found for: CREAT Cultures: No data to display Susceptibility Tests - Past 1 Year No results found for the last 365 days. I have reviewed the problem list, family history, and social history documented by my ancillary staff. Circular Knitter Helper offered:Patient accepts, visit chaperoned by Alejandra Flannery MA. Fátima Santillan MD Staff Urologist documented in this encounter [facility] 11-24-2024 Note HNO ID: [id number] Author: FÁTIMA SANTILLAN MD Service: ? Author Type: Physician Type: Progress Notes Filed: 11/24/2024 23:13 Note Text: [facility] NEW PATIENT CONSULT/HISTORY AND PHYSICAL PATIENT: Karolina Ahn (59 year old) REFERRING PROVIDER: PCP: Jimbo Dash MD ASSESSMENT/PLAN: 1. Recurrent bladder calculus. Calcification seen on today's cystoscopy represents foreign body reaction from prior mid urethral sling insertion. Outside operative reports reviewed. Sling placed in 2013 was retropubic approach. Patient has required 2 laser lithotripsies for bladder calculi. She has recurrent stone. Pelvic CT without contrast showed no lymphadenopathy/bilateral iliac stents. Recommend pelvic MRI with IV contrast to rule out pelvic inflammation/abscess or other associated pelvic findings associated with the bladder mesh erosion. Anticipating robotic assisted transabdominal removal of mesh. This will include intentional cystotomy with removal of foreign body with excision of mesh, bladder calculus and closure of cystotomy. Prior to robotic portion of the case, patient will need cystoscopy with bilateral ureteral stent insertion. Will finalize surgical plans once MRI pelvis obtained and reviewed. 2. Dyspareunia Patient developed pain with intercourse LAVH/BSO/AP repair mid urethral sling. She was diagnosed with vaginismus and recently seen by gynecology. She has been to pelvic floor PT in the past and may wish to return after managing current problem. Mesh erosion with foreign body reaction may be contributing to pain with intercourse. Patient will return to the office after MRI to review imaging and finalize surgical plans. Written and verbal health teaching given to patient, patient verbalizes understanding and agrees with treatment plan. Patient will call if worsening symptoms, no improvement, or any other concerns. Plan discussed. CHIEF COMPLAINT: Bladder stone HISTORY OF PRESENT ILLNESS: The patient has a history of a bladder stone. She was last seen by Martine KATZ on 09/24/2024. Other /urogyn providers: April Nicole MD Epic Kaleidoscope Analyst: STERLING Dunn The patient was seen by STERLING Dunn of DATA MINING ANALYST for 2-month history of dysuria and pelvic pain. She has a history of 2 bladder stones status post cystoscopy with laser lithotripsy by April Nicole MD in 2020 and in 2021. April Nicole MD repeated cystoscopy on 07/28/2024 and identified a 1 cm calcification dome of the bladder. The patient was sent for additional urologic evaluation. In 2013, patient underwent retropubic mid urethral sling concurrent with LAVH/BSO/AP repair. Recent imaging CT pelvis without IV contrast (10/13/2024): 4.5 mm calcification adherent to right anterolateral aspect of bladder wall. Mild thickening surrounding aspect bladder wall. Unremarkable iliac stents. Calcified atheromatous plaques iliac arteries. No lymphadenopathy. Current voiding concerns Daytime frequency: Every 2 hours Urinary urgency: Occasional Nighttime frequency: 1 Urge incontinence: No Stress incontinence: None s/p mid urethral sling Denies hesitancy, straining, slow stream Denies gross hematuria or dysuria Denies vaginal bleeding, discharge, odor ++ Dyspareunia; evaluated by gynecology recently. Plans to attend pelvic floor PT for vaginismus after addressing bladder stone. Fluid intake: 32 ounces Triggers: - Dietary: None identified - Situational: None identified The patient completed a PFDI-20 and I have reviewed and confirmed the responses documented by my nurse/MA at today's visit. Today's [id number] urine testing trace, intact blood, negative nitrite, small leukocyte. Previous Urogyn Procedures 04/06/2014, LAVH, BSO, anterior and posterior colporrhaphy (Kat Muniz MD) Previous Urologic Procedures 04/06/2014, cystoscopy and placement of retropubic tension-free vaginal sling, (Zander Luis MD-concurrent with prolapse surgery outlined above) 2020, laser lithotripsy bladder calculus) April Nicole MD). 02/15/2022, laser lithotripsy of bladder calculus (April Nicole MD)-op report reviewed. Findings are 1 cm bladder stone anterior bladder wall Current Urologic Medications None reported Previous HRT-blood clots Past DATA MINING ANALYST History: G 6 P 6 Vaginal deliveries: 6 section: 0 History of third or fourth degree laceration: Yes Weight of largest baby: 9 pounds 7 ounces Hysterectomy: Yes/48 years old (LAVH/BSO/AP repair) Diagnosis: Bleeding prolapse Ovaries removed: Yes Menopause : yes, surgical at 48 HRT :no; HRT associated with blood clots Menstrual history: Menarche 12yo Sexual function Sexually active: Not sexually active; very painful since surgery in 2013 She is not sexually active. She does have dyspareunia. REVIEW OF SYSTEMS: Genitourinary: SEE HPI Constitu (more content not included)... [facility] 11-23-2024 Telephone encounter Note Referral has not been authorized yet. I recommend checking with your insurance provider Gala [facility] 11-23-2024 Miscellaneous Notes Referral has not been authorized yet. I recommend checking with your insurance provider Gala documented in this encounter [facility] 10-23-2024 Instructions Fátima Santillan MD - 10/23/2024 10:22 AM EDT Vaginal Estrogen Indication: You have been prescribed vaginal estrogen cream for one or more of the indications below: To reduce the occurrence of urinary tract infections (UTIs) Rejuvenation of the vaginal tissue (see symptoms of genitourinary syndrome of menopause) Increase the effect of medications used for the bladder Improve painful intercourse caused by menopausal changes Create a better environment for pessary wearers Genitourinary syndrome of menopause. Symptoms of genitourinary syndrome of menopause may include, but is not limited to, genital symptoms of dryness, burning, and irritation; sexual symptoms of lack of lubrication, discomfort or pain, and impaired function; and urinary symptoms of urgency, dysuria, and recurrent urinary tract infections. The gold standard treatment for GSM is vaginal estrogen. Use of topical vaginal estrogen twice weekly has been shown to reduce the frequency of postmenopausal urinary tract infections by 60%. Estradiol vaginal cream can take 2 to 3 months to reach its full effect. It may cause some leakage and vaginal irritation for some people. While rare, you may experience breast pain when you start using it. But estradiol vaginal cream isn t linked to serious side effects, such as blood clots or breast cancer. Estradiol vaginal cream doesn t treat menopause symptoms like hot flashes or night sweats. But you can combine it with systemic forms of estrogen (such as pills or patches) if needed to help manage these symptoms. Vaginal estradiol cream comes with a reusable applicator to help you measure and insert your dose. Here are the steps for using it: 1) Press the plunger end of the applicator all the way down. 2) Screw the open end of the applicator onto the open end of your tube of vaginal cream. 3) Gently squeeze the tube so the cream fills the applicator. 4) The plunger has lines marking 1 g to 4 g of cream. Stop squeezing when it reaches the line for your recommended dose. 5) Unscrew the applicator from the tube of vaginal cream and put the cap back on the tube. 6) Insert the applicator into the vagina as far as is comfortable and press down on the plunger. 7) Remove the applicator and wash it with soap and warm water. You can also try what we call Finger Tip Application meaning you do not use the provided applicator. Instead, squeeze a bit vaginal estrogen cream onto your index finger from the fingertip to the first knuckle. With your other hand, separate the lips of your vagina. Insert the finger with the cream on it into your vagina to your second knuckle and smear the cream onto the vaginal tissue. You can also smear some cream around the vaginal opening and urethra. Please do this before bed so the cream can be absorbed while lying down. documented in this encounter [facility] 10-23-2024 Note HNO ID: [id number] Author: FÁTIMA SANTILLAN MD Service: ? Author Type: Physician Type: Procedures Filed: 11/24/2024 23:02 Note Text: CYSTOSCOPY PROCEDURE NOTE: Karolina Ahn is a 59 year old female who presents with recurrent bladder stones. Cystoscopy is planned. Pt ID verified with patient: Yes Procedure verified with patient: Yes Procedure confirmed with physician and client support administrator: Yes UNIVERSAL PROTOCOL / SAFETY CHECKLIST Procedure to be Performed: Flexible cystoscopy Sign In: A Moment of CARE was completed. Appropriate PPE (Personal Protective Equipment) worn by all providers involved with the procedure. Special equipment not required. Patient/Surrogate Stated/Verified: Patient name, Date of , Relevant allergies, and The intended procedure Time Out: Relevant labs, photos, and/or imaging studies have been reviewed. Intended patient and procedure match the source document(s) (e.g. consent, HANDP, associated studies [imaging, pathology]) match the intended patient and procedure. Consent obtained and matches the intended procedure. Yes. Correct side/site is not applicable. Medications required for this procedure are verified. Fire risk assessed and is not applicable. Implants: are not applicable. Sign Out: Specimens are all correctly labeled and sent. All instruments, equipment, possible retained foreign bodies are accounted for. Yes. The post-procedure plan of care has been communicated to the patient or surrogate. A urinalysis was performed revealing no evidence of infection. The benefits, risks, alternatives of the cystoscopy procedure and personnel were discussed with the patient. The verbal consent was obtained and the patient agrees to proceed. Procedure: The patient was placed on the procedure table in the supine position and prepped and draped in the usual sterile fashion. 2% Lidocaine Jelly was placed per urethra as an anesthetic in the standard fashion. Once adequate local anesthesia was achieved, the tip of the Flexible cystoscope was carefully placed into the urethra under direct visual guidance. The scope was negotiated per urethra into the bladder. There is no evidence of urethral diverticulum, stricture, kinking or angulation. Careful ellington endoscopy was carried out. The posterior, superior and lateral gomez and dome of the bladder were all well visualized and the scope was retroflexed upon itself. Calcified foreign bodies seem to traverse right anterolateral aspect of bladder wall. This would be the expected trajectory of puncture due to prior sling. Presumed foreign body reaction. Bladder trabeculation none. No diverticulum or cellules. Ureteral orifices normal in position, number and configuration. At the conclusion of the procedure, the Flexible cystoscope was removed atraumatically. The patient tolerated the procedure without complications. Patient was given standard post-procedure instructions, and was directed to complete the course of oral antibiotics and increase oral fluid intake as directed. Circular Knitter Helper offered:Patient accepts, visit chaperoned by Alejandra Flannery MA ASSESSMENT/PLAN: Bladder calculus, presumed foreign body reaction status post prior mid urethral sling See separate visit note for assessment, plans and further evaluation. [facility] 10-23-2024 Procedure note CYSTOSCOPY PROCEDURE NOTE: Karolina Ahn is a 59 year old female who presents with recurrent bladder stones. Cystoscopy is planned. Pt ID verified with patient: Yes Procedure verified with patient: Yes Procedure confirmed with physician and client support administrator: Yes UNIVERSAL PROTOCOL / SAFETY CHECKLIST Procedure to be Performed: Flexible cystoscopy Sign In: A Moment of CARE was completed. Appropriate PPE (Personal Protective Equipment) worn by all providers involved with the procedure. Special equipment not required. Patient/Surrogate Stated/Verified: Patient name, Date of , Relevant allergies, and The intended procedure Time Out: Relevant labs, photos, and/or imaging studies have been reviewed. Intended patient and procedure match the source document(s) (e.g. consent, H&P, associated studies [imaging, pathology]) match the intended patient and procedure. Consent obtained and matches the intended procedure. Yes. Correct side/site is not applicable. Medications required for this procedure are verified. Fire risk assessed and is not applicable. Implants: are not applicable. Sign Out: Specimens are all correctly labeled and sent. All instruments, equipment, possible retained foreign bodies are accounted for. Yes. The post-procedure plan of care has been communicated to the patient or surrogate. A urinalysis was performed revealing no evidence of infection. The benefits, risks, alternatives of the cystoscopy procedure and personnel were discussed with the patient. The verbal consent was obtained and the patient agrees to proceed. Procedure: The patient was placed on the procedure table in the supine position and prepped and draped in the usual sterile fashion. 2% Lidocaine Jelly was placed per urethra as an anesthetic in the standard fashion. Once adequate local anesthesia was achieved, the tip of the Flexible cystoscope was carefully placed into the urethra under direct visual guidance. The scope was negotiated per urethra into the bladder. There is no evidence of urethral diverticulum, stricture, kinking or angulation. Careful ellington endoscopy was carried out. The posterior, superior and lateral gomez and dome of the bladder were all well visualized and the scope was retroflexed upon itself. Calcified foreign bodies seem to traverse right anterolateral aspect of bladder wall. This would be the expected trajectory of puncture due to prior sling. Presumed foreign body reaction. Bladder trabeculation none. No diverticulum or cellules. Ureteral orifices normal in position, number and configuration. At the conclusion of the procedure, the Flexible cystoscope was removed atraumatically. The patient tolerated the procedure without complications. Patient was given standard post-procedure instructions, and was directed to complete the course of oral antibiotics and increase oral fluid intake as directed. Circular Knitter Helper offered:Patient accepts, visit chaperoned by Alejandra Flannery MA ASSESSMENT/PLAN: Bladder calculus, presumed foreign body reaction status post prior mid urethral sling See separate visit note for assessment, plans and further evaluation. [facility] 10-23-2024 Procedure note CYSTOSCOPY PROCEDURE NOTE: Karolina Ahn is a 59 year old female who presents with recurrent bladder stones. Cystoscopy is planned. Pt ID verified with patient: Yes Procedure verified with patient: Yes Procedure confirmed with physician and client support administrator: Yes UNIVERSAL PROTOCOL / SAFETY CHECKLIST Procedure to be Performed: Flexible cystoscopy Sign In: A Moment of CARE was completed. Appropriate PPE (Personal Protective Equipment) worn by all providers involved with the procedure. Special equipment not required. Patient/Surrogate Stated/Verified: Patient name, Date of , Relevant allergies, and The intended procedure Time Out: Relevant labs, photos, and/or imaging studies have been reviewed. Intended patient and procedure match the source document(s) (e.g. consent, H&P, associated studies [imaging, pathology]) match the intended patient and procedure. Consent obtained and matches the intended procedure. Yes. Correct side/site is not applicable. Medications required for this procedure are verified. Fire risk assessed and is not applicable. Implants: are not applicable. Sign Out: Specimens are all correctly labeled and sent. All instruments, equipment, possible retained foreign bodies are accounted for. Yes. The post-procedure plan of care has been communicated to the patient or surrogate. A urinalysis was performed revealing no evidence of infection. The benefits, risks, alternatives of the cystoscopy procedure and personnel were discussed with the patient. The verbal consent was obtained and the patient agrees to proceed. Procedure: The patient was placed on the procedure table in the supine position and prepped and draped in the usual sterile fashion. 2% Lidocaine Jelly was placed per urethra as an anesthetic in the standard fashion. Once adequate local anesthesia was achieved, the tip of the Flexible cystoscope was carefully placed into the urethra under direct visual guidance. The scope was negotiated per urethra into the bladder. There is no evidence of urethral diverticulum, stricture, kinking or angulation. Careful ellington endoscopy was carried out. The posterior, superior and lateral gomez and dome of the bladder were all well visualized and the scope was retroflexed upon itself. Calcified foreign bodies seem to traverse right anterolateral aspect of bladder wall. This would be the expected trajectory of puncture due to prior sling. Presumed foreign body reaction. Bladder trabeculation none. No diverticulum or cellules. Ureteral orifices normal in position, number and configuration. At the conclusion of the procedure, the Flexible cystoscope was removed atraumatically. The patient tolerated the procedure without complications. Patient was given standard post-procedure instructions, and was directed to complete the course of oral antibiotics and increase oral fluid intake as directed. Circular Knitter Helper offered:Patient accepts, visit chaperoned by Alejandra Flannery MA ASSESSMENT/PLAN: Bladder calculus, presumed foreign body reaction status post prior mid urethral sling See separate visit note for assessment, plans and further evaluation. documented in this encounter [facility] 10-23-2024 Note HNO ID: [id number] Author: FÁTIMA SANTILLAN MD Service: ? Author Type: Physician Type: Progress Notes Filed: 11/24/2024 23:02 Note Text: [facility] 10-23-2024 History of Presen t illness Narrative documented in this encounter [facility] 10-15-[address] result received via fax. It shows a well defined 4.5mm calcification adherent to right anterolateral aspect of bladder wall, adherent stone vs mural calcification within a bladder wall lesion. Will ask staff to scan into chart and to also request the images for Dr Pathak to review. Patient has cystoscopy with him 11/03/24. Elida Angelo APRN.LISANDRO [facility] Work Phone: 10-15-[address] result received via fax. It shows a well defined 4.5mm calcification adherent to right anterolateral aspect of bladder wall, adherent stone vs mural calcification within a bladder wall lesion. Will ask staff to scan into chart and to also request the images for Dr Pathak to review. Patient has cystoscopy with him 11/03/24. Elida Angelo APRN.LISANDRO documented in this encounter [facility] 10-14-2024 Radiology Diagnostic study note [facility] Imaging Services [address] [place], [place] [address] Pelvis without IV Contrast MR#: [id number] Acct: [id number] Name: KAROLINA AHN Rep #: [id number] : 1965 F 59 From: Matt Beard MD PCP: Dr. Jimbo Dash MD Status: REG C Study:Pelvis without IV Contrast Date of Exam : 10/13/24 Exam# [id number] Ordering Dr: Lian marrero,Out o. PROCEDURE: PELVIS WITHOUT IV CONTRAST 10/13/2024 REASON FOR EXAM: BLADDER STONE TECHNIQUE: PELVIS WITHOUT IV CONTRAST One or more dose reduction techniques were used (e.g., Automated exposure control, adjustment of the mA and/or kV according to patient size, use of iterative reconstruction technique). RADIATION DOSE SUMMARY: CTDlvol: 7.36 mGy DLP: 270 mGycm COMPARISON: 03/13/2024. FINDINGS: Prior hysterectomy. Adequately distended bladder. Well-defined 4.5 mm calcification adherent to the right anterolateral aspect of the bladder wall. Findings may represent an adherent stone versus mural calcification within a bladder wall lesion. Mild thickening of the corresponding aspect of the bladder wall. No lymphadenopathy is seen. Calcified atheromatous plaques of the iliac arteries. Unremarkable iliac venous stents. Moderate amount of fecal residue in the large bowels. Mild osteopenia. Grade 1 anterolisthesis of L4 on L5. Diffuse spondylosis. CT/Pelvis without IV Contrast IMPRESSION: Prior hysterectomy. Adequately distended bladder. Well-defined 4.5 mm calcification adherent to the right anterolateral aspect of the bladder wall. Findings may represent an adherent stone versus mural calcification within a bladder wall lesion. Mild thickening of the corresponding aspect of the bladder wall. No lymphadenopathy is seen. Calcified atheromatous plaques of the iliac arteries. Unremarkable iliac venous stents. Moderate amount of fecal residue in the large bowels. Mild osteopenia. Reading Location: [place] [address] CC: ELIDA ANGELO; Dr. Jimbo Dash MD ~ Yarn Dumper: Signed [facility] 09-25-2024 Telephone encounter Note Patient is aware of plan for CT and cystoscopy with Dr Pathak. Orders have been placed in office visit from yesterday. Please help patient schedule. Thanks. Elida Angelo APRN.CNP [facility] 09-25-2024 Miscellaneous Notes Patient is aware of plan for CT and cystoscopy with Dr Pathak. Orders have been placed in office visit from yesterday. Please help patient schedule. Thanks. Elida Angelo APRN.CNP documented in this encounter [facility] 09-24-2024 Instructions Elida Angelo APRN.CNP - 09/24/2024 11:38 AM EDT I will reach out to my physician colleagues for next steps. Call us Saturday if you have not heard from our office. UROLOGY: [phone] documented in this encounter [facility] 09-24-2024 History of Presen t illness Narrative Images from the original note were not included. [facility] [place] [facility] [place] [facility]OL [place] EXCHANGE NEW PATIENT UROLOGY VISIT 09/24/2024 7:33 AM PATIENT NAME: Karolina Ahn DATE OF : 1965 TODAY'S DATE: 09/24/2024 Referring Provider: Ric Taylro [address] [facility] [address] Referring Note Reviewed: Yes Chief Complaint: bladder stone History of Present Illness: Ms. Ahn is a 59 year old female who presents to the office regarding bladder stone. She has had surgery with Dr Nicole twice in the past for bladder stones. She had a cystoscopy on 07/28/24, which showed a bladder stone (details below and see scanned documents). She has been referred by her DATA MINING ANALYST office. Chart notes and results reviewed. Reports dysuria, pelvic pain x2 months. Symptoms today are present as they have been for the past 2 months. S/p bladder sling, hysterectomy, rectocele repair with Dr Edmondson in 2013 Per referring provider: Has been seen by Dr. Nicole, urologist - cystoscopy on 07/28/24 revealed a 1cm calcification in the dome of the bladder - pt reports having bladder stones removed twice in the past (in the OR ) - states she has been experiencing UTI symptoms including dysuria and sharp pelvic pains with negative cultures Patient states that Dr Nicole removed her previous 2 bladder stones but due to position would like patient to a specialist. Review of Systems Constitutional: Negative for fever. Genitourinary: Positive for dysuria and pelvic pain. Negative for difficulty urinating, flank pain, frequency, hematuria and urgency. See HPI Past Medical History: PAST MEDICAL HISTORY Diagnosis Date Anxiety state, unspecified Bunion 02/27/2006 Enthesopathy of unspecified site 10/09/2006 Hallux valgus (acquired) 02/18/2006 Other hammer toe (acquired) 02/27/2006 Pain in limb 08/05/2006 Stress fracture of the metatarsals 08/05/2006 Past Surgical History: PAST SURGICAL HISTORY Procedure Laterality Date COLONOSCOPY FLX DX W/COLLJ SPEC WHEN PFRMD 02/01/2011 Normal Colonoscopy CYSTOSCOPY 02/15/[address] Nicole, no exposure of urethral mesh, 1 cm calculus bladder wall removed LIG/TRNSXJ FLP TUBE ABDL/VAG APPR UNI/BI NEUROPLASTY &/TRANSPOS MEDIAN NRV CARPAL TUNNE 04/29/2004 both PAST SURGICAL HISTORY OF 06/28/2003 right bunionectomy PAST SURGICAL HISTORY OF 04/29/2002 left bunionectomy- had infection after PAST SURGICAL HISTORY OF 04/24/2006 right bunionectomy RPR UMBILICAL HRNA 5 YRS/> REDUCIBLE 04/26/2008 Simple S SLING BLADDER 04/06/2014 Placement of tension free vaginal sling, cystoscopy (Dr. Luis, [facility]) VAGINAL HYSTERECTOMY 04/06/2014 LAVH, BSO, anterior and posterior repair (Dr. Muniz, [facility]) Social History: Social History Tobacco Use Smoking status: Never Smokeless tobacco: Never Vaping Use Vaping status: Never Used Substance Use Topics Alcohol use: No Drug use: No Medications: Prior to Admission medications : Medication baclofen vaginal suppository 10 mg (CPD), Sig Unwrap and insert 1 Suppository vaginally once daily as directed., Start Date 09/17/22, End Date , Taking? , Authorizing Provider Walt Ulrich PBX MANAGER.AUTO PARTS HANDLER Medication phenazopyridine (PYRIDIUM) 200 mg tablet, Sig Take 1 tablet by mouth three times daily as needed., Start Date 10/12/21, End Date , Taking? , Authorizing Provider Bekah Redd, PBX MANAGER.CNM Medication apixaban (ELIQUIS ORAL), Sig Take by mouth., Start Date , End Date , Taking? , Authorizing Provider Provider, Ccf Medication pitavastatin calcium (LIVALO ORAL), Sig Take by mouth., Start Date , End Date , Taking? , Authorizing Provider Provider, Ccf Medication Cetirizine 10 mg cap, Sig Take by mouth., Start Date , End Date , Taking? , Authorizing Provider Provider, Ccf Medication sertraline (ZOLOFT) 100 mg tablet, Sig Take 100 mg by mouth once daily., Start Date , End Date , Taking? , Authorizing Provider Provider, Ccf Medication ranitidine (ZANTAC) 150 mg ORAL tablet, Sig Take 1 tablet by mouth twice daily., Start Date 08/08/11, End Date , Taking? , Authorizing Provider Yonis Sanchez MD ALLERGIES Allergen Reactions Hydrocodone-Acetami* Vomiting Aspirin tired and weak and made her feel weird can take Ibuprofen Oxycodone Itching Problem List Reviewed: Yes Vitals: BP 118/73 Pulse 88 Ht 160 cm (5' 3) LMP 04/05/2011 BMI 25.33 kg/m Recent Labs: Color (no units) Date Value 09/17/2022 Light Yellow Clarity (no units) Date Value 09/17/2022 Clear Glucose, Urine (no units) Date Value 09/17/2022 Negative Bilirubin, Urine (no units) Date Value 09/17/2022 Negative Ketones, Urine (no units) Date Value 09/17/2022 Negative Specific Clayton, Ur (no units) Date Value 09/17/2022 1.010 Hemoglobin/Blood,Ur (no units) Date Value 09/17/2022 Negative pH, Urine (no units) Date Value 09/17/2022 6.0 Protein, Urine (no units) Date Value 09/17/2022 Negative Urobilinogen (no units) Date Value 09/17/2022 Normal Nitrites (no units) Date Value 09/17/2022 Negative Leuk Esterase (no units) Date Value 09/17/2022 Negative Physical Exam Vitals and nursing note reviewed. Constitutional: General: She is not in acute distress. Appearance: Normal appearance. She is not ill-appearing or toxic-appearing. Comments: Patient in NAD, speaking in full sentences, and breathing is not labored HENT: Head: Normocephalic and atraumatic. Pulmonary: Effort: Pulmonary effort is normal. Skin: General: Skin is warm and dry. Coloration: Skin is not jaundiced or pale. Neurological: Mental Status: She is alert and oriented to person, place, and time. Assessment and Plan: 1. Bladder stone - ICD9: 594.1, ICD10: N21.0 - UA DIP, URINE (POC) - BLADDER SCAN Patient is seen for initial visit regarding bladder stone noted on cystoscopy 4/1/25. She follows with Dr Nicole who has surgically removed 2 bladder stones in the past. Due to position of the stone, Dr Nicole advised seeing a specialist. Patient has had dysuria and pelvic pain x2 months. UA is negative today. PVR 0mL. Advised patient that I will coordinate appt with physician, and staff will reach out to her to schedule appt. Patient is agreeable. Elida Angelo APRN.AUTO PARTS HANDLER Consultation requested by Ric Clarke [place] [phone] for an opinion regarding Karolina Ahn patient and my final recommendations will be communicated back to the requesting physician by way of shared Medical record or letter via US mail. Recording using [employer] software for draft documentation of the visit was discussed with the patient/authorized field representative; all questions welcomed and answered. Patient/authorized field representative agreed to proceed documented in this encounter [facility] 09-24-2024 Note HNO ID: [id number] Author: ELIDA ANGELO APRN.AUTO PARTS HANDLER Service: ? Author Type: Nurse Practitioner Type: Progress Notes Filed: 09/25/2024 12:20 Note Text: [facility] - [place] [facility]OL [place] [facility] NEW PATIENT UROLOGY VISIT 09/24/2024 7:33 AM PATIENT NAME: Karolina Ahn DATE OF : 1965 TODAY'S DATE: 09/24/2024 Referring Provider: Ric Clarke [place] [id number] Referring Note Reviewed: Yes Chief Complaint: bladder stone History of Present Illness: Ms. Ahn is a 59 year old female who presents to the office regarding bladder stone. She has had surgery with Dr Nicole twice in the past for bladder stones. She had a cystoscopy on 07/28/24, which showed a bladder stone (details below and see scanned documents). She has been referred by her DATA MINING ANALYST office. Chart notes and results reviewed. Reports dysuria, pelvic pain x2 months. Symptoms today are present as they have been for the past 2 months. S/p bladder sling, hysterectomy, rectocele repair with Dr Edmondson in 2013 Per referring provider: Has been seen by Dr. Nicole, urologist - cystoscopy on 07/28/24 revealed a 1cm calcification in the dome of the bladder - pt reports having bladder stones removed twice in the past (in the OR ) - states she has been experiencing UTI symptoms including dysuria and sharp pelvic pains with negative cultures Patient states that Dr Nicole removed her previous 2 bladder stones but due to position would like patient to a specialist. Review of Systems Constitutional: Negative for fever. Genitourinary: Positive for dysuria and pelvic pain. Negative for difficulty urinating, flank pain, frequency, hematuria and urgency. See HPI Past Medical History: PAST MEDICAL HISTORY Diagnosis Date Anxiety state, unspecified Bunion 02/27/2006 Enthesopathy of unspecified site 10/09/2006 Hallux valgus (acquired) 02/18/2006 Other hammer toe (acquired) 02/27/2006 Pain in limb 08/05/2006 Stress fracture of the metatarsals 08/05/2006 Past Surgical History: PAST SURGICAL HISTORY Procedure Laterality Date COLONOSCOPY FLX DX W/COLLJ SPEC WHEN PFRMD 02/01/2011 Normal Colonoscopy CYSTOSCOPY 02/15/[address] Nicole, no exposure of urethral mesh, 1 cm calculus bladder wall removed LIG/TRNSXJ FLP TUBE ABDL/VAG APPR UNI/BI NEUROPLASTY AND/TRANSPOS MEDIAN NRV CARPAL TUNNE 04/29/2004 both PAST SURGICAL HISTORY OF 06/28/2003 right bunionectomy PAST SURGICAL HISTORY OF 04/29/2002 left bunionectomy- had infection after PAST SURGICAL HISTORY OF 04/24/2006 right bunionectomy RPR UMBILICAL HRNA 5 YRS/> REDUCIBLE 04/26/2008 Simple S SLING BLADDER 04/06/2014 Placement of tension free vaginal sling, cystoscopy (Dr. Luis, [facility]) VAGINAL HYSTERECTOMY 04/06/2014 LAVH, BSO, anterior and posterior repair (Dr. Muniz, [facility]) Social History: Social History Tobacco Use Smoking status: Never Smokeless tobacco: Never Vaping Use Vaping status: Never Used Substance Use Topics Alcohol use: No Drug use: No Medications: Prior to Admission medications : Medication baclofen vaginal suppository 10 mg (CPD), Sig Unwrap and insert 1 Suppository vaginally once daily as directed., Start Date 09/17/22, End Date , Taking? , Authorizing Provider Walt Ulrich APRN.AUTO PARTS HANDLER Medication phenazopyridine (PYRIDIUM) 200 mg tablet, Sig Take 1 tablet by mouth three times daily as needed., Start Date 10/12/21, End Date , Taking? , Authorizing Provider Bekah Redd APRN.CNM Medication apixaban (ELIQUIS ORAL), Sig Take by mouth., Start Date , End Date , Taking? , Authorizing Provider Provider, Ccf Medication pitavastatin calcium (LIVALO ORAL), Sig Take by mouth., Start Date , End Date , Taking? , Authorizing Provider Provider, Ccf Medication Cetirizine 10 mg cap, Sig Take by mouth., Start Date , End Date , Taking? , Authorizing Provider Provider, Ccf Medication sertraline (ZOLOFT) 100 mg tablet, Sig Take 100 mg by mouth once daily., Start Date , End Date , Taking? , Authorizing Provider Provider, Ccf Medication ranitidine (ZANTAC) 150 mg ORAL tablet, Sig Take 1 tablet by mouth twice daily., Start Date 08/08/11, End Date , Taking? , Authorizing Provider Yonis Sanchez MD ALLERGIES Allergen Reactions Hydrocodone-Acetami* Vomiting Aspirin tired and weak and made her feel weird can take Ibuprofen Oxycodone Itching Problem List Reviewed: Yes Vitals: BP 118/73 Pulse 88 Ht 160 cm (5' 3) LMP 04/05/2011 BMI 25.33 kg/m? Recent Labs: Color (no units) Date Value 09/17/2022 Light Yellow Clarity (no units) Date Value 09/17/2022 Clear Glucose, Urine (no units) Date Value 09/17/2022 Negative Bilirubin, Urine (no units) Date Value 09/17/2022 Negative Ketones, Urine (no units) Date Value 09/17/2022 Negative Specific Clayton, Ur (no units) Date V (more content not included)... [facility] 09-08-2024 Telephone encounter Note ABIMAEL:08/26/2024 [facility] with Ric Taylor APRN, AUTO PARTS HANDLER FOV: N/A S:Patient is wanting know about her urology referral B ASSESSMENT: (N94.10) Female dyspareunia (primary encounter diagnosis) (M62.838) Levator spasm (Z98.890) History of suburethral sling procedure (N21.0) Bladder stones PLAN: Bladder stone - explained will reach out to the team to determine if pt needs referred to urology for the bladder stone removal. Dyspareunia/levator spasm - discussed returning to PFPT after bladder stone removal Our team will reach out to the pt in the next week Ric Taylor APRN.LISANDRO R: Let patient know I will send her message to the MANAGER PRIMARY pool. Ai Barksdale RN [facility] 09-08-2024 Miscellaneous Notes ABIMAEL:08/26/2024 [facility] with Ric Taylor APRN, CNP FOV: N/A S:Patient is wanting know about her urology referral B ASSESSMENT: (N94.10) Female dyspareunia (primary encounter diagnosis) (M62.838) Levator spasm (Z98.890) History of suburethral sling procedure (N21.0) Bladder stones PLAN: Bladder stone - explained will reach out to the team to determine if pt needs referred to urology for the bladder stone removal. Dyspareunia/levator spasm - discussed returning to PFPT after bladder stone removal Our team will reach out to the pt in the next week Ric Taylor APRN.LISANDRO R: Let patient know I will send her message to the MANAGER PRIMARY pool. Ai Barksdale RN documented in this encounter [facility] 08-26-2024 Note HNO ID: [id number] Author: RIC TAYLOR APRN.LISANDRO Service: ? Author Type: Nurse Practitioner Type: Progress Notes Filed: 08/26/2024 08:48 Note Text: VIRTUAL VISIT PROGRESS NOTE This is a virtual visit using [employer] Video Visit. It required patient-provider interaction for the medical decision making as documented below. I have communicated my name and active licensure. The patient's identity and physical location were verified at the time of this visit. Either the patient or their legal field representative has been informed of the risks and benefits of -- and alternatives to -- treatment through a remote evaluation and consents to proceed with the evaluation remotely. Karolina Ahn is a 59 year old female seen for vaginal atrophy, dyspareunia, high tone pelvic floor and bladder stone States she had SANDRA, bladder sling and rectocele repair ~10 years ago (by 2 different doctors in [place]). Has been seen by Dr. Nicole, urologist - cystoscopy on 07/28/24 revealed a 1cm calcification in the dome of the bladder - pt reports having bladder stones removed twice in the past (in the [place] ) - states she has been experiencing UTI symptoms including dysuria and sharp pelvic pains with negative cultures Was instructed not use any vaginal estrogen - hx of DVT (multiple) - on anticoagulation Also reports vaginismus - has attended PFPT in the past - unable to have intercourse - would like to pursue treatment after removal of bladder stone HISTORY REVIEWED (electronic chart updated): PAST MEDICAL HISTORY Diagnosis Date Anxiety state, unspecified Bunion 02/27/2006 Enthesopathy of unspecified site 10/09/2006 Hallux valgus (acquired) 02/18/2006 Other hammer toe (acquired) 02/27/2006 Pain in limb 08/05/2006 Stress fracture of the metatarsals 08/05/2006 PAST SURGICAL HISTORY Procedure Laterality Date COLONOSCOPY FLX DX W/COLLJ SPEC WHEN PFRMD 02/01/2011 Normal Colonoscopy CYSTOSCOPY 02/15/[address] Nicole, no exposure of urethral mesh, 1 cm calculus bladder wall removed LIG/TRNSXJ FLP TUBE ABDL/VAG APPR UNI/BI NEUROPLASTY AND/TRANSPOS MEDIAN NRV CARPAL TUNNE 04/29/2004 both PAST SURGICAL HISTORY OF 06/28/2003 right bunionectomy PAST SURGICAL HISTORY OF 04/29/2002 left bunionectomy- had infection after PAST SURGICAL HISTORY OF 04/24/2006 right bunionectomy RPR UMBILICAL HRNA 5 YRS/> REDUCIBLE 04/26/2008 Simple S SLING BLADDER 04/06/2014 Placement of tension free vaginal sling, cystoscopy (Dr. Luis, [facility]) VAGINAL HYSTERECTOMY 04/06/2014 LAVH, BSO, anterior and posterior repair (Dr. Muniz, [facility]) FAMILY HISTORY Problem Relation Age of Onset Allergies Mother Diabetes Mother Thyroid Mother Hypertension Father Lipids Father Social History Tobacco Use Smoking status: Never Smokeless tobacco: Never Vaping Use Vaping status: Never Used Substance Use Topics Alcohol use: No Drug use: No Current Outpatient Medications Medication Sig estradiol (ESTRACE) 0.01 % (0.1 mg/gram) vaginal cream Use 1 g vaginally daily at bedtime for 14 days, THEN 1 g two times a week. baclofen vaginal suppository 10 mg (CPD) Unwrap and insert 1 Suppository vaginally once daily as directed. predniSONE (DELTASONE) 10 mg tablet Take 4 tabs daily for 3 days, then 2 tabs daily for 3 days, then 1 tab daily for 3 days with food. estradiol (ESTRACE) 0.01 % (0.1 mg/gram) vaginal cream Use 1 g vaginally once daily. Use daily x 14 days then twice weekly (Patient not taking: Reported on 04/30/2022) phenazopyridine (PYRIDIUM) 200 mg tablet Take 1 tablet by mouth three times daily as needed. apixaban (ELIQUIS ORAL) Take by mouth. pitavastatin calcium (LIVALO ORAL) Take by mouth. Cetirizine 10 mg cap Take by mouth. sertraline (ZOLOFT) 100 mg tablet Take 100 mg by mouth once daily. ranitidine (ZANTAC) 150 mg ORAL tablet Take [...] (Patient not taking: Reported on 01/21/2021 ) No current facility-administered medications for this visit. ALLERGIES Allergen Reactions Hydrocodone-Acetami* Vomiting Aspirin tired and weak and made her feel weird can take Ibuprofen Oxycodone Itching REVIEW OF SYSTEMS: GENERAL: feeling well without fatigue, no recent change in weight PHYSICAL EXAMINATION: VIDEO EXAM: (if completed, performed via video enabled technology) GENERAL: alert and appropriate, in no distress, well-hydrated, well nourished, and happy, smiling, interactive ASSESSMENT: (N94.10) Female dyspareunia (primary encounter diagnosis) (M62.838) Levator spas (more content not included)... [facility] 08-26-2024 History of Presen t illness Narrative VIRTUAL VISIT PROGRESS NOTE This is a virtual visit using [employer] Video Visit. It required patient-provider interaction for the medical decision making as documented below. I have communicated my name and active licensure. The patient's identity and physical location were verified at the time of this visit. Either the patient or their legal field representative has been informed of the risks and benefits of -- and alternatives to -- treatment through a remote evaluation and consents to proceed with the evaluation remotely. Karolina Ahn is a 59 year old female seen for vaginal atrophy, dyspareunia, high tone pelvic floor and bladder stone States she had SANDRA, bladder sling and rectocele repair ~10 years ago (by 2 different doctors in [place]). Has been seen by Dr. Nicole, urologist - cystoscopy on 07/28/24 revealed a 1cm calcification in the dome of the bladder - pt reports having bladder stones removed twice in the past (in the [place] ) - states she has been experiencing UTI symptoms including dysuria and sharp pelvic pains with negative cultures Was instructed not use any vaginal estrogen - hx of DVT (multiple) - on anticoagulation Also reports vaginismus - has attended PFPT in the past - unable to have intercourse - would like to pursue treatment after removal of bladder stone HISTORY REVIEWED (electronic chart updated): PAST MEDICAL HISTORY Diagnosis Date Anxiety state, unspecified Bunion 02/27/2006 Enthesopathy of unspecified site 10/09/2006 Hallux valgus (acquired) 02/18/2006 Other hammer toe (acquired) 02/27/2006 Pain in limb 08/05/2006 Stress fracture of the metatarsals 08/05/2006 PAST SURGICAL HISTORY Procedure Laterality Date COLONOSCOPY FLX DX W/COLLJ SPEC WHEN PFRMD 02/01/2011 Normal Colonoscopy CYSTOSCOPY 02/15/[address] Nicole, no exposure of urethral mesh, 1 cm calculus bladder wall removed LIG/TRNSXJ FLP TUBE ABDL/VAG APPR UNI/BI NEUROPLASTY &/TRANSPOS MEDIAN NRV CARPAL TUNNE 04/29/2004 both PAST SURGICAL HISTORY OF 06/28/2003 right bunionectomy PAST SURGICAL HISTORY OF 04/29/2002 left bunionectomy- had infection after PAST SURGICAL HISTORY OF 04/24/2006 right bunionectomy RPR UMBILICAL HRNA 5 YRS/> REDUCIBLE 04/26/2008 Simple S SLING BLADDER 04/06/2014 Placement of tension free vaginal sling, cystoscopy (Dr. Luis, [facility]) VAGINAL HYSTERECTOMY 04/06/2014 LAVH, BSO, anterior and posterior repair (Dr. Muniz, [facility]) FAMILY HISTORY Problem Relation Age of Onset Allergies Mother Diabetes Mother Thyroid Mother Hypertension Father Lipids Father Social History Tobacco Use Smoking status: Never Smokeless tobacco: Never Vaping Use Vaping status: Never Used Substance Use Topics Alcohol use: No Drug use: No Current Outpatient Medications Medication Sig estradiol (ESTRACE) 0.01 % (0.1 mg/gram) vaginal cream Use 1 g vaginally daily at bedtime for 14 days, THEN 1 g two times a week. baclofen vaginal suppository 10 mg (CPD) Unwrap and insert 1 Suppository vaginally once daily as directed. predniSONE (DELTASONE) 10 mg tablet Take 4 tabs daily for 3 days, then 2 tabs daily for 3 days, then 1 tab daily for 3 days with food. estradiol (ESTRACE) 0.01 % (0.1 mg/gram) vaginal cream Use 1 g vaginally once daily. Use daily x 14 days then twice weekly (Patient not taking: Reported on 04/30/2022) phenazopyridine (PYRIDIUM) 200 mg tablet Take 1 tablet by mouth three times daily as needed. apixaban (ELIQUIS ORAL) Take by mouth. pitavastatin calcium (LIVALO ORAL) Take by mouth. Cetirizine 10 mg cap Take by mouth. sertraline (ZOLOFT) 100 mg tablet Take 100 mg by mouth once daily. ranitidine (ZANTAC) 150 mg ORAL tablet Take [...] (Patient not taking: Reported on 01/21/2021 ) No current facility-administered medications for this visit. ALLERGIES Allergen Reactions Hydrocodone-Acetami* Vomiting Aspirin tired and weak and made her feel weird can take Ibuprofen Oxycodone Itching REVIEW OF SYSTEMS: GENERAL: feeling well without fatigue, no recent change in weight PHYSICAL EXAMINATION: VIDEO EXAM: (if completed, performed via video enabled technology) GENERAL: alert and appropriate, in no distress, well-hydrated, well nourished, and happy, smiling, interactive ASSESSMENT: (N94.10) Female dyspareunia (primary encounter diagnosis) (M62.838) Levator spasm (Z98.890) History of suburethral sling procedure (N21.0) Bladder stones PLAN: Bladder stone - explained will reach out to the team to determine if pt needs referred to urology for the bladder stone removal. Dyspareunia/levator spasm - discussed returning to PFPT after bladder stone removal Our team will reach out to the pt in the next week Ric Taylor APRN.AUTO PARTS HANDLER documented in this encounter [facility] 08-17-2024 Evaluation note Diagnosis Onset Date Resolution Stenosis of iliac vein chronic August 17, 2024 1:03pm [facility] Work Phone: 1(695) 876-372508-06-2024 [facility] Medical Records Department [address] [place] [id number] Discharge Summary 12/03/23 1056 MR#: [id number] Acct: [id number] Name: KAROLINA AHN Rep #: [id number] : 1965 58 From: Everton Mchugh DO PCP: Dr. Jimbo Dash MD Status:ADM IN [id number] Prov[facility] Date of Admission: 11/28/23 Date of Discharge: 12/03/23 Primary Care Physician: Dr. Jimbo Dash MD Consultations 11/28/23 15:53 Consult: Vascular Surgery Routine Consulting Provider: Reji Goldberg Reason for Consult: extensive LLE DVT EMERGENT Consult: No MD Notified: Yes Date Notified: 11/28/23 Time Notified: 15:20 Method of Notification: Verbal Reason For Visit: EXTENSIVE LE THROMBUS /with thrombectomy Diagnosis Discharge Diagnosis (1) Acute DVT (deep venous thrombosis): Status: Acute Code(s): I82.409 - Acute embolism and thrombosis of unspecified deep veins of unspecified lower extremity Medications at Discharge Home Medications sertraline 100 mg tablet 50 mg PO BID anxiety 03/30/14 Cholecalciferol (Vitamin D3) [Vitamin D3] 5,000 unit PO DAILY supplement 03/07/20 cyanocobalamin (vitamin B-12) 5,000 mcg disintegrating tablet 3,000 mcg PO DAILY supplement 03/07/20 omeprazole 20 mg tablet,delayed release 20 mg PO QHS reflux 03/07/20 pitavastatin calcium 2 mg tablet (Livalo) 2 mg PO QPM cholesterol 02/08/22 cetirizine 10 mg capsule (Zyrtec) 10 mg PO DAILY allergies 04/12/22 dicyclomine 20 mg tablet 20 mg PO BID IBS 10/02/22 alendronate 70 mg tablet 70 mg PO QWEEK bones 11/28/23 apixaban 5 mg (74 tabs) tablets in a dose pack (YPX [employer] DVT-PE Treat 30D Start) See Rx Instructions PO .COMPLEX #74 tabs 12/03/23 oxycodone 5 mg tablet 5 mg PO Q8H PRN pain 3 days #9 tabs 12/03/23 Hospital Course Operations None Procedures - (Venous Doppler study, IVC and bilateral lower extremity venogram with percutaneous mechanical thrombectomy of LLE angioplasty of bilateral common iliac veins) Summary of Care Provided Minutes Spent on Discharge: 35 Hospital Course: Patient is a 58-year-old female who presented [facility] ED on 11/28/2023 with worsening left lower extremity swelling. Hospital course as noted below. Patient discharged home with no therapy needs in stable condition on 12/02. 1. Extensive left lower extremity DVT, history of DVT with bilateral iliac vein stenting ??? Vascular surgery followed. Venous Doppler study on admit showed acute DVT from common iliac vein to down past the knee. Stable on room air, no concern for PE. Patient notably had DVT back in 2014 suspected due to chronic compression and had bilateral iliac vein stenting done with Dr. Goldberg in 2022. S/p IVC and bilateral lower extremity venogram with percutaneous mechanical thrombectomy of LLE angioplasty of bilateral common iliac veins on 12/01. Patient tolerated procedure well. Continued heparin drip after procedure and then transitioned to Eliquis on day of discharge, will continue Eliquis going forward. Continue home aspirin on discharge as well. 2. Concern for UTI ??? UA on admit showed 500 leukocyte esterase, negative nitrites, 2+ bacteria. Patient denies any urinary symptoms. Urine culture with no growth. Started on ceftriaxone on admission, discontinued on 11/28. Chronic medical conditions: ??? GERD: Continue home PPI. ??? IBS: Continue home dicyclomine. ??? Allergies: Continue home cetirizine. ??? Anxiety: Continue home Zoloft. Total clinical time spent by myself addressing the patient's medical issues, reviewing all the data, and collaborating with patient's care team: 35 minutes. Physical Exam Const alert, oriented x3, no apparent distress and average body habitus Constitutional Narrative: Pleasant middle-age female, laying comfortably in bed, conversing normally, in no acute distress. General Appearance: cooperative and comfortable HEENT normocephalic, head/scalp atraumatic, hearing grossly normal bilaterally, nasal mucous membranes and turbinates normal and moist oral mucous membranes Eyes PERRL, EOMs intact bilaterally and conjunctivae normal Neck full ROM Chest inspection of chest normal Resp normal respiratory effort, normal air movement, no use of accessory muscles and clear to auscultation bilaterally Cardio regular rate, regular rhythm, no murmurs and peripheral pulses 2+ throughout GI normal to inspection, nondistended, normoactive bowel sounds, soft to palpation, non-tender and non- distended Back/Spine normal ROM Extremity full ROM Extremity Narrative: Mild bruising noted behind right knee at access site. Access site behind left knee with bandage in place and with no concerning findings. Left leg with trace edema, significantly improved from admission. Skin no rashes or lesions noted Neuro no focal motor deficits and no sensory def (more content not included)...[facility]06-07-2023 History and physical note Author Dr. Goldberg [facility] October 03, 2022 7:35am Note Date/Time October 03, 2022 7:19a m [facility] Medical Records Department [address] [place] [address] History & Physical Exam 10/03/22 0706 MR#: [id number] Acct: [id number] Name: KAROLINA AHN Rep #:[id number] : 1965 57 From: Martine KU PCP: Dr. Jimbo Dash MD Status:REG S DC Location: [facility] General Date of Service: 10/03/22 Chief Complaint: Symptomatic varicose veins, recurrent DVT HPI Narrative KAROLINA AHN, is a 57 F who presents today for venogram possible intervention. She has painful varicosities of the R thigh, buttock, and pelvic region which are persistent despite adequate compression. Her history is also significant forrecurrent RLE DVT for which she currently takes Eliquis 2.5mg BID (managed by hematology). Venogram will be performed to evaluate for central venous compression which could be contributing to her presentation. She has a history of vein stripping several years ago. She has a history of microhematuria and bladder stones (CT ruled out nutcracker syndrome). Otherwise,she has no significant medical history including CAD/AZ, COPD/asthma, CKD, CVA/TIA. She has no complaints today. Denies SOB, CP, F/C, N/V, palpitations, syncope. [facility] Medical History Anemia Anxiety Arthritis Bladder disease Difficulty swallowing DVT (deep venous thrombosis) Gastric reflux History of echocardiogram History of pain when walking History of stress test Leg cramps Loss of hearing Non-smoker Restless legs Wears glasses Home Medications sertraline 100 mg tablet 50 mg PO BID anxiety 03/30/14 [History Last Taken 02/14/22] Cholecalciferol (Vitamin D3) [Vitamin D3] 5,000 unit PO DAILY supplement 03/07/20 [History Last Taken 02/14/22] cyanocobalamin (vitamin B-12) 5,000 mcg disintegrating tablet 3,000 mcg PO DAILYsupplement 03/07/20 [History Last Taken 02/14/22] omeprazole 20 mg tablet,delayed release 20 mg PO QHS reflux 03/07/20 [History Last Taken 02/14/22] magnesium 200 mg tablet 200 mg PO DAILY 02/08/22 [History Last Taken 02/14/22] pitavastatin calcium 2 mg tablet (Livalo) 2 mg PO QPM 02/08/22 [History Last Taken 02/14/22] calcium carbonate 600 mg calcium (1,500 mg) tablet 600 mg PO BID 04/12/22 [History Last Taken Unknown] cetirizine 10 mg capsule (Zyrtec) 10 mg PO DAILY 04/12/22 [History Last Taken Unknown] penciclovir 1 % topical cream (Denavir) 1 applic topical Q2H 04/12/22 [History Last Taken Unknown] apixaban 2.5 mg tablet (Eliquis) 1 tablet PO BID 08/30/22 [History Last Taken 09/19/22] dicyclomine 20 mg tablet 20 mg PO BID 10/02/22 [History Last Taken Unknown] Allergy/AdvReac Type Severity Reaction Status Date / Time hydrocodone [From Vicodin] Allergy Nausea/Vom/ Verified 08/30/22 13:26 Diarrhea oxycodone AdvReac Itching Verified 08/30/22 13:26 Family History Mother Colon cancer Cancer ovary Diabetes Father Hypertension Surgical History Hx of bladder repair surgery Hx of colonoscopy Hx of cystoscopy Hx of shoulder surgery S/p bilateral carpal tunnel release S/P bunionectomy S/P cholecystectomy S/P hysterectomy S/P rotator cuff repair Social History Smoking Status: Never smoker alcohol intake: never ROS ROS Narrative ROS General General: No weight change, appetite, fatigue, colon cancer, breast cancer or weakness HEENT HEENT: No difficulty swallowing, eye injury, eye surgery, swollen glands or hoarseness Endo Endocrine: No thyroid disease, diabetes mellitus, thyroid cancer, Hair loss, heat intolerance or cold intolerance Skin Skin: No rash or changing moles Breast Breast: No left breast lump, right breast lump, nipple discharge, breast pain, abnormal mammogram, abnormal US or breast enlargement Musc Musculoskeletal: No back problems, arthritis, rheumatoid arthritis, gout or joint pain Cardio Cardiovascular: No murmur, pacemaker, heart disease, atrial fibrillation, high blood pressure, heart attack, heart stent, palpitations, shortness of breat withexertion or chest pain Psych Psychiatric: No depression, anxiety or hearing voices Resp Respiratory: No shortness of breath, No sleep apnea, No cough, No COPD, No asthma, No emphysema and No wheezing Gastro Gastrointestinal: No abdominal pain, No nausea or vomiting, No diarrhea, No constipation, No blood in stool, No acid reflux, No hemorrhoids, No ulcers, No gallbladder problem and No black,tarry stools Fito Hematologic: No blood thinners, No blood disorders, No bleeding, No anemia and No blood clots Neuro Neurologic: No system reviewed and no additional complaints, except as documented, No as per HPI, No abnormal gait, No abnormal hearing, No abnormal movements, No abnormal speech, No behavioral changes, No burning sensations, No confusion, No convulsions, No disequilibrium, No dizziness, No localized weakness, No frequent falls, No headache(s), No lack of coordination, No loss ofvision, No memory loss, No numbness, No other visual disturbances, No radicular pain, No restless legs, No sensory deficit, No syncope, No tingling, No tremor(s), No weakness and No other Vital Signs Vital Signs Vital Signs: Weight Weight: 145 lb Body Mass Index (BMI) 25.7 Physical Exam Narrative Exam Const General: cooperative, healthy appearing, comfortable, no acute distress and welldeveloped Orientation: alert, awake and oriented x3 [facility] Head: normal to inspection, normocephalic and atraumatic Ears: hearing grossly normal bilaterally and external ears normal Nose: external nose normal Eyes General: appearance normal, both eyes and all related structures EOM: EOM intact bilaterally Neck Neck: normal visual inspection, full ROM, trachea midline and no anterior neck swelling Resp Effort & Inspection: normal respiratory effort, able to speak in complete sentences, symmetric chest movement, no audible wheezes, no cough, not labored, no retractions, no stridor and no use of accessory muscles Auscultation: clear to auscultation bilaterally Cardio Rate: regular rate Rhythm: regular rhythm Pulses: brachial pulses present and radial pulses present Skin General: no rashes or lesions noted, no ecchymosis, no erythema, no eschars, no mottling, no petechiae, no purpura and no pallor Trauma: no lacerations or abrasions Wounds: no wounds Hair: normal Nails: normal Neuro General: patient alert, patient awake, patient oriented x3, gait normal, moves all extremities and CN's II-XI intact bilaterally Sensory Exam: no sensory deficits noted Extremities Pulses: Normal: Right Dorsalis Pedis Pulse, Left Dorsalis Pedis Pulse, Right Posterior Tibial Pulse, Left Posterior Tibial Pulse, Right Radial Pulse and LeftRadial Pulse Lower Extremity Edema: Trace: Bilateral Veins: Bilateral: Varicose Veins and Bilateral: Reticular Veins Psych Appearance: grossly normal Mental Status: mental status grossly normal Affect: normal affect Speech and Movement: speech and movement normal Attitude: cooperative Thought Process: normal Thought Content: normal Judgment: judgment good Results Lab / Micro Data Result Diagrams: 10/03/22 07:13 10/03/22 07:13 Assessment & Plan Assessment/Plan (1) Vulvar varicose veins: (2) Symptomatic varicose veins of both lower extremities: PLAN: Plan Proceed with venogram as scheduled today. Further plan pending results/possible intervention. She is scheduled for f/u in the office on 10/25/2022. 10/03/22726 <Electronically signed by Martine KU> Cosigner Signature (if applicable): 10/03/22734 <Electronically signed by Reji Goldberg MD> CC: KINGS Nguyen; Dr. Reji Goldberg MD; Dr. Jimbo Dash MD~ Signed [facility] Work Phone: [phone]) 137-279701-02-2023 History of Present illness Narrative* Celia Hernandez APRN.AUTO PARTS HANDLER - 04/30/2022 5:12 PM EST This note was created using NoteWriter. Subjective Karolina Ahn is a 56 year old female. 56 year old female with no PMH presents with complaints of rash. Acute onset of symptoms was 2 days ago Bilateral arms & neck +red, raised and itching Denies fever or chills. Denies malaise or fatigue Denies SOB or CP. Denies dyspnea. Utilized allergy pills during day. 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 Denies new lotions, soaps, or medicines. The history is provided by the patient. No russian language instructor was used. Rash This is a new [...] g vaginally once daily. Use daily x 14days then twice weekly (Patient not taking: Reported on 04/30/2022) ranitidine (ZANTAC) 150 mg ORAL tablet Take 1 tablet by mouth twice daily. penciclovir 1 % TOPICAL cream Apply to affected area every 2 hours. Topically to sore 5 times dailyuntil area clears ibuprofen 600 mg ORAL tablet Take 1 tablet by mouth every 6 hours as needed. FOR PAIN. (Patient nottaking: Reported on 01/21/2021 ) ibuprofen 600 mg [...] symptoms persist or worsen. - Celia Hernandez APRN.AUTO PARTS HANDLER [facility] Miscellaneous Notes* Telephone Encounter - Sadia Levine - 03/01/2022 11:29 AM EDT Faxed referral received twice from PCP Upon contacting PT by phone PT declined any appointment stating that she see's Dr. Bekah Redd and does not wish to schedule with urology. Sadia Levine [facility] History of Present illness Narrative* Bekah Redd APRN.CNM - 10/30/2021 8:02 PM EDT Consult to Uro/LEAD SYSTEMS DEVELOPER for dyspareunia. She would like bladder sling looked at as well. Bekah Redd APRN.CNM [facility] Miscellaneous Notes* Telephone Encounter - Bekah Redd APRN.CNM - 10/27/2021 9:59 AM EDT Called and discussed urine results. Patient continues to have slight burning with urination, vaginal irritation and pain with intercourse. Discussed trial of vaginal estrogen. Patient open to treatment. Rx sent at this time. If continues to have pain with urination, will follow up with PCP. Bekah Redd APRN.CNM [facility]06-28-[facility]22 History of Present illness Narrative* Bekah Redd APRN.CNM - 10/24/2021 10:43 PM EDT Patient treated for UTI on 10/12/21. She completed antibiotics and reports still having urinary urgency and burning. Will send UA and culture. Bekah Redd APRN.CNM [facility] History of Past illness Narrative* Problem Noted Date Resolved Date Incisional hernia without mention of obstruction or gangrene 03/24/2008 07/19/2009 Enthesopathy of unspecified site 10/09/2006 07/19/2009 Pain in limb 08/05/2006 07/19/2009 Stress fracture of the metatarsals 08/05/2006 07/19/2009 Other hammer toe (acquired) 02/27/200606/28 Bunion 02/27/2006 07/19/2009 Hallux valgus (acquired) 02/18/2006 010 documented as of this encounter (statuses as of 10/12/2021) [facility] of Past illness Narrative* Problem Noted Date Resolved Date Incisional hernia without mention of obstruction or gangrene 03/24/2008 07/19/2009 Enthesopathy of unspecified site 10/09/2006 07/19/2009 Pain in limb 08/05/2006 07/19/2009 Stress fracture of the metatarsals 08/05/2006 07/19/2009 Other hammer toe (acquired) 02/27/200606/28 Bunion 02/27/2006 07/19/2009 Hallux valgus (acquired) 02/18/2006 010 documented as of this encounter (statuses as of 10/25/2021) [facility] History of Past illness Narrative* Problem Noted Date Resolved Date Incisional hernia without mention of obstruction or gangrene 03/24/2008 07/19/2009 Enthesopathy of unspecified site 10/09/2006 07/19/2009 Pain in limb 08/05/2006 07/19/2009 Stress fracture of the metatarsals 08/05/2006 07/19/2009 Other hammer toe (acquired) 02/27/200606/28 Bunion 02/27/2006 07/19/2009 Hallux valgus (acquired) 02/18/2006 010 documented as of this encounter (statuses as of 10/27/2021) [facility] of Past illness Narrative* Problem Noted Date Resolved Date Incisional hernia without mention of obstruction or gangrene 03/24/2008 07/19/2009 Enthesopathy of unspecified site 10/09/2006 07/19/2009 Pain in limb 08/05/2006 07/19/2009 Stress fracture of the metatarsals 08/05/2006 07/19/2009 Other hammer toe (acquired) 02/27/200606/28 Bunion 02/27/2006 07/19/2009 Hallux valgus (acquired) 02/18/2006 010 documented as of this encounter (statuses as of 10/31/2021) [facility] of [facility] illness Narrative* Problem Noted Date Resolved Date Incisional hernia without mention of obstruction or gangrene 03/24/2008 07/19/2009 Enthesopathy of unspecified site 10/09/2006 07/19/2009 Pain in limb 08/05/2006 07/19/2009 Stress fracture of the metatarsals 08/05/2006 07/19/2009 Other hammer toe (acquired) 02/27/200606/28 Bunion 02/27/2006 07/19/2009 Hallux valgus (acquired) 02/18/2006 010 documented as of this encounter (statuses as of 03/01/2022) [facility] of [facility] illness Narrative* Problem Noted Date Resolved Date Incisional hernia without mention of obstruction or gangrene 03/24/2008 07/19/2009 Enthesopathy of unspecified site 10/09/2006 07/19/2009 Pain in limb 08/05/2006 07/19/2009 Stress fracture of the metatarsals 08/05/2006 07/19/2009 Other hammer toe (acquired) 02/27/200606/28 Bunion 02/27/2006 07/19/2009 Hallux valgus (acquired) 02/18/2006 010 documented as of this encounter (statuses as of 05/03/2022) [facility] of [facility] illness Narrative* Problem Noted Date Resolved Date Incisional hernia without mention of obstruction or gangrene 03/24/2008 07/19/2009 Enthesopathy of unspecified site 10/09/2006 07/19/2009 Pain in limb 08/05/2006 07/19/2009 Stress fracture of the metatarsals 08/05/2006 07/19/2009 Other hammer toe (acquired) 02/27/200606/28 Bunion 02/27/2006 07/19/2009 Hallux valgus (acquired) 02/18/2006 010 documented as of this encounter (statuses as of 10/02/2022) [facility] note* Diagnosis Dysuria- Primary documented in this encounter [facility] note* Diagnosis Dysuria- Primary documented in this encounter [facility] note* Diagnosis Dysuria- Primary Vaginal atrophy Postmenopausal atrophic vaginitis documented in this encounter [facility] note* Diagnosis Other specified dyspareunia- Primary Vaginal atrophy Postmenopausal atrophic vaginitis Vaginismus documented in this encounter [facility] noteNo assessment information availableWTrinity Health [facility] Work Phone: Evaluation note* Diagnosis Onset Date Resolution Status Family history of colon cancer in mother acute Urinary tract infection none active [facility] Work Phone: Evaluation note* Diagnosis Dermatitis- Primary Contact dermatitis and other eczema, due to unspecified cause [facility]* Diagnosis Onset Date Resolution Status H/O deep venous thrombosis c hronic Varicose vein of leg chronic H/O deep venous thrombosis c hronic Varicose vein of leg chronic [facility] Work Phone: Evaluation note* Diagnosis Onset Date Resolution Status H/O deep venous thrombosis c hronic Varicose vein of leg chronic H/O deep venous thrombosis c hronic Varicose vein of leg chronic Microhematuria acute Symptomatic varicose veins of both lower extremities acute Vulvar varicose veins acute H/O deep venous thrombosis c [facility] Work Phone: Evaluation note* Diagnosis Onset Date Resolution Status H/O deep venous thrombosis c hronic Varicose vein of leg chronic Microhematuria acute Symptomatic varicose veins of both lower extremities acute Vulvar varicose veins acute H/O deep venous thrombosis c [facility] Work Phone: Evaluation note* Diagnosis Onset Date Resolution Status Microhematuria acute Symptomatic varicose veins of both lower extremities acute Vulvar varicose veins acute H/O deep venous thrombosis c hronic Symptomatic varicose veins of both lower extremities acute Vulvar varicose veins acute H/O deep venous thrombosis c hronic Symptomatic varicose veins of both lower extremities acute Vulvar varicose veins [facility] Work Phone: Evaluation note* Diagnosis Onset Date Resolution Status Microhematuria acute Symptomatic varicose veins of both lower extremities acute Vulvar varicose veins acute H/O deep venous thrombosis c hronic Symptomatic varicose veins of both lower extremities acute Vulvar varicose veins acute H/O deep venous thrombosis c hronic Symptomatic varicose veins of both lower extremities acute Vulvar varicose veins acute Stenosis of iliac vein acute Symptomatic varicose veins of both lower extremities acute H/O deep venous thrombosis c [facility] Work Phone: Evaluation note* Diagnosis Onset Date Resolution Status Acute upper respiratory infection acute Contact with or suspected ex posure to other viral communicable disease [facility] Work Phone: Evaluation note* Diagnosis Female dyspareunia- Primary Dyspareunia Levator spasm Abnormal involuntary movements History of suburethral sling procedure Bladder stones Other calculus in bladder [facility]* Diagnosis Bladder stone- Primary Other calculus in bladder [facility]* Diagnosis Bladder stone Other calculus in bladder [facility]* Diagnosis Bladder stone- Primary Other calculus in bladder Erosion of bladder suspension mesh, sequela [facility]* Diagnosis Bladder stone- Primary Other calculus in bladder Erosion of bladder suspension mesh, sequela [facility]* Diagnosis Closed nondisplaced fracture of distal phalanx of lesser toe of left foot, initial encounter- Primary Injury of toe on left foot, initial encounter documented in this encounter [facility] for referral (narrative)No reason for referral information availableWTrinity Health [facility] Work Phone: Reason for visit Narrative* Diagnostic Procedure Only (Urgent) - Closed Specialty Diagnoses / Procedures Referred By Contmireille t Referred To Contact XR IMAGING Diagnoses Injury of toe on left foot, initial encounter Procedures XR TOE AP/LAT/OBL LEFT RADEX TOE MINIMUM 2 VIEWS Marguerite Daily APRN.AUTO PARTS HANDLER [address] [place] [address] Phone: tel: fax: [place] [address] Referral ID Status Reason Start Date Expiration Date V isits Requested Visits Authorized [id number] Closed Auto-Generate d Referral 12/08/2024 01/07/2026 1 1 [facility] Advance Directives No Advanced Directives Records FoundDocuments on File Type Date Recorded Patient Plastic And Reconstructive Surgeon Expl anation Advance Directive(s) Documents on File Type Date Recorded Patient Plastic And Reconstructive Surgeon Expl anation Advance Directive(s) Advance Directive Response Recorded Date/ Time Advance Directives No November 03 1:50pm Living Will No March 07 3:26pm Power of Marine Electronics Technician No March 07, 2020 3:26pm Advance Directive Response Recorded Date/ Time Advance Directives No November 03 1:50pm Living Will No February 08 9:47am Power of Marine Electronics Technician No February 08, 2022 9:47am Advance Directive Response Recorded Date/ Time Advance Directives No November 03 12:50pm Living Will No February 08 8:47am Power of Marine Electronics Technician No February 08, 2022 8:47am Advance Directive Response Recorded Date/ Time Advance Directives No October 03 7:30am Living Will No October 03, 2022 7 :30am Power of Marine Electronics Technician No October 03, 2022 7:30am Advance Directive Response Recorded Date/ Time Advance Directives No October 03 6:30am Living Will No October 03, 2022 6 :30am Power of Marine Electronics Technician No October 03, 2022 6:30am Advance Directive Response Recorded Date/ Time Living Will Yes June 11, 2 025 3:28pm Power of Marine Electronics Technician Yes June 11, 2024 3:28pm Name of Medical Power of Marine Electronics Technician Liseth bryant June 11, 2024 3:28pm Living Will No November 28, 2023 4:00pm Power of Marine Electronics Technician No November 27 4:00pm Advance Directives No October 03 7:30am Advance Directive Response Recorded Date/ Time Living Will Yes June 11, 2 025 3:28pm Do you have a Healthcare Pow er of Marine Electronics Technician? Yes June 11, 2024 3:28pm Name of Medical Power of Marine Electronics Technician Liseth bryant June 11, 2024 3:28pm Living Will No November 28, 2023 4:00pm Do you have a Healthcare Pow er of Marine Electronics Technician? No November 28, 2023 4:00pm Advance Directives No October 03 7:30am Advance Directive Response Recorded Date/ Time Living Will No November 28, 2023 4:00pm Do you have a Healthcare Power of Marine Electronics Technician? No November 28, 2023 4:00pm Advance Directives No October 03 7:30am Reason for Referral Specialty Diagnoses / Procedures Referred By Santa hernandez Referred To Contact Diagnoses Other specified dyspareunia Vaginal atrophy Vaginismus Procedures CONSULT TO URO GYNECOLOGY OFFICE/OUTPATIENT [facility] 60-74 MINUTES Bekah Redd APRN.CNAlejandra [address] [place] [address] Referral ID Status Reason Start Date Expiration Date Visits Requested Visits Authorized [id number] Authorized PCP Requested Referral Auto-Generate d Referral 10/30/2021 10/30/2022 1 1 Chief Complaint and Reason for Visit Chief Complaint COLONOSCOPY Urinary tract infection Reason for Visit Family history of co josé cancer in mother Urinary tract infection Chief Complaint COLONOSCOPY Urinary tract infection 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 Visit Family history of co josé cancer in mother Urinary tract infection Chief Complaint COLONOSCOPY Urinary tract infection EMPLOYEE 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 GROSS HEMATURIA CYSTO, PELVIC EXAM Reason for Visit Family history of co josé cancer in mother Urinary tract infection Chief Complaint GROSS HEMATURIA CYSTO, PELVIC EXAM NEW PT - HX OF DVT pain extremities BILAT LEG SWELLING Reason for Visit H/O deep venous thro mbosis Varicose vein of leg H/O deep venous thrombosis Varicose vein of leg Chief Complaint NEW PT - HX OF DVT pain extremities BILAT LEG SWELLING 3 M FU Reason for Visit H/O deep venous thro mbosis Varicose vein of leg H/O deep venous thrombosis Varicose vein of leg Microhematuria Symptomatic varicose veins of both lower extremities Vulvar varicose veins H/O deep venous thrombosis Chief Complaint pain extremities BILAT LEG SWELLING 3 M FU POSS MTS, PCS, NUTCRACKER SYNDROME; HX DVT Reason for Visit H/O deep venous thro mbosis Varicose vein of leg Microhematuria Symptomatic varicose veins of both lower extremities Vulvar varicose veins H/O deep venous thrombosis Chief Complaint 3 M FU POSS MTS, PCS, NUTCRACKER SYNDROME; HX DVT DISCUSS RESULTS VENO ILIAC VAIN STENT POSS COIL/STAT LABS VENO ILIAC VAIN STENT POSS COIL/STAT LABS Reason for Visit Microhematuria Symptomatic varicose veins of both lower extremities Vulvar varicose veins H/O deep venous thrombosis Symptomatic varicose veins of both lower extremities Vulvar varicose veins H/O deep venous thrombosis Symptomatic varicose veins of both lower extremities Vulvar varicose veins Chief Complaint 3 M FU POSS MTS, PCS, NUTCRACKER SYNDROME; HX DVT DISCUSS RESULTS VENO ILIAC VAIN STENT POSS COIL/STAT LABS VENO ILIAC VAIN STENT POSS COIL/STAT LABS 3-4 WK FU Reason for Visit Microhematuria Symptomatic varicose veins of both lower extremities Vulvar varicose veins H/O deep venous thrombosis Symptomatic varicose veins of both lower extremities Vulvar varicose veins H/O deep venous thrombosis Symptomatic varicose veins of both lower extremities Vulvar varicose veins Stenosis of iliac vein Symptomatic varicose veins of both lower extremities H/O deep venous thrombosis Chief Complaint ANNUAL HEALTH SCREEN Varicose veins, IVC Chief Complaint ANNUAL HEALTH SCREEN Varicose veins, IVC SCREENING/POST [place] Chief Complaint Varicose veins, IVC SCREENING/POST [place] BODY ACHES, HEADACHE, EXPOSED TO INFLUENZA B Reason for Visit Acute upper respirat ory infection Contact with or suspected exposure to other viral communicable disease Chief Complaint BODY ACHES, HEADACHE , EXPOSED TO INFLUENZA B LT HIP Reason for Visit Acute upper respirat ory infection Contact with or suspected exposure to other viral communicable disease Chief Complaint Admit Date CP, L ARM PAIN, R CALF PAIN May 2:19pm INT LABS July 08, 2024 10: 42am Compression of vein July 14, 2024 9:0 8am Chief Complaint Admit Date INT LABS July 08, 2024 10: 42am Compression of vein July 14, 2024 9:0 8am 6 M FU August 17, 2024 1:0 3pm BLADDER STONE October 13, 2024 7:02 pm Reason for Visit Admit Date Stenosis of iliac vein August 17, 2024 1:03pm Family History No Family History Records Found Relationship Condition Age at Onset Recorded Date/T brandyn mother Malignant neoplasm of colon Unknown Malignant neoplasm Unknown Diabetes mellitus Unknown father Hypertension Unknown Summary Purpose Additional Source Comments Source Comments (unrecognize d section and content) In the event this informatio n is protected by the Federal Confidentiality of Alcohol and Drug Abuse Patient Records regulations: The Federal rules restrict any use of the information to criminally investigate or prosecute any alcohol or drug abuse patient.[facility] Health[facility] the event this information is protected by the Federal Confidentiality of Alcohol and Drug Abuse Patient Records regulations: The Federal rules restrict any use of the information to criminally investigate or prosecute any alcohol or drug abuse patient.[facility] HealthIn the event this information is protected by the Federal Confidentiality of Alcohol and Drug Abuse Patient Records regulations: The Federal rules restrict any use of the information to criminally investigate or prosecute any alcohol or drug abuse patient.[facility] HealthIn the event this information is protected by the Federal Confidentiality of Alcohol and Drug Abuse Patient Records regulations: The Federal rules restrict any use of the information to criminally investigate or prosecute any alcohol or drug abuse patient.[facility] HealthIn the event this information is protected by the Federal Confidentiality of Alcohol and Drug Abuse Patient Records regulations: The Federal rules restrict any use of the information to criminally investigate or prosecute any alcohol or drug abuse patient.[facility] HealthIn the event this information is protected by the Federal Confidentiality of Alcohol and Drug Abuse Patient Records regulations: The Federal rules restrict any use of the information to criminally investigate or prosecute any alcohol or drug abuse patient.[facility] HealthIn the event this information is protected by the Federal Confidentiality of Alcohol and Drug Abuse Patient Records regulations: The Federal rules restrict any use of the information to criminally investigate or prosecute any alcohol or drug abuse patient.[facility] HealthIn the event this information is protected by the Federal Confidentiality of Alcohol and Drug Abuse Patient Records regulations: The Federal rules restrict any use of the information to criminally investigate or prosecute any alcohol or drug abuse patient.[facility] HealthIn the event this information is protected by the Federal Confidentiality of Alcohol and Drug Abuse Patient Records regulations: The Federal rules restrict any use of the information to criminally investigate or prosecute any alcohol or drug abuse patient.[facility] HealthIn the event this information is protected by the Federal Confidentiality of Alcohol and Drug Abuse Patient Records regulations: The Federal rules restrict any use of the information to criminally investigate or prosecute any alcohol or drug abuse patient.[facility] HealthIn the event this information is protected by the Federal Confidentiality of Alcohol and Drug Abuse Patient Records regulations: The Federal rules restrict any use of the information to criminally investigate or prosecute any alcohol or drug abuse patient.[facility] HealthIn the event this information is protected by the Federal Confidentiality of Alcohol and Drug Abuse Patient Records regulations: The Federal rules restrict any use of the information to criminally investigate or prosecute any alcohol or drug abuse patient.[facility] HealthIn the event this information is protected by the Federal Confidentiality of Alcohol and Drug Abuse Patient Records regulations: The Federal rules restrict any use of the information to criminally investigate or prosecute any alcohol or drug abuse patient.[facility] HealthIn the event this information is protected by the Federal Confidentiality of Alcohol and Drug Abuse Patient Records regulations: The Federal rules restrict any use of the information to criminally investigate or prosecute any alcohol or drug abuse patient.[facility] HealthIn the event this information is protected by the Federal Confidentiality of Alcohol and Drug Abuse Patient Records regulations: The Federal rules restrict any use of the information to criminally investigate or prosecute any alcohol or drug abuse patient.[facility] HealthIn the event this information is protected by the Federal Confidentiality of Alcohol and Drug Abuse Patient Records regulations: The Federal rules restrict any use of the information to criminally investigate or prosecute any alcohol or drug abuse patient.[facility] HealthIn the event this information is protected by the Federal Confidentiality of Alcohol and Drug Abuse Patient Records regulations: The Federal rules restrict any use of the information to criminally investigate or prosecute any alcohol or drug abuse patient.[facility] HealthIn the event this information is protected by the Federal Confidentiality of Alcohol and Drug Abuse Patient Records regulations: The Federal rules restrict any use of the information to criminally investigate or prosecute any alcohol or drug abuse patient.[facility] Teams (unrecognized sec tion and content) Field Applications Specialist Relationship Specialty Start Date End Date Jimbo Dash MD PCP - General Family Practice 02/13/16 Jimbo Dash MD Family Practice 02/13/16 Field Applications Specialist Relationship Specialty Start Date End Date Jimbo Dash MD PCP - General Family Practice 02/13/16 Jimbo Dash MD Family Practice 02/13/16 Field Applications Specialist Relationship Specialty Start Date End Date Jimbo Dash MD PCP - General Family Practice 02/13/16 Jimbo Dash MD Family Practice 02/13/16 Field Applications Specialist Relationship Specialty Start Date End Date Jimbo Dash MD PCP - General Family Practice 02/13/16 Jimbo Dash MD Family Practice 02/13/16 Field Applications Specialist Relationship Specialty Start Date End Date Jimbo Dash MD PCP - General Family Medicine 02/13/16 Jimbo Dash MD Family Medicine 02/13/16 Field Applications Specialist Relationship Specialty Start Date End Date Jimbo Dash MD PCP - General Family Medicine 02/13/16 Jimbo Dash MD Family Medicine 02/13/16 Team Status: Active Member Role Status Dates Dr. Jimbo Dash MD Family Provider Active Dr. Jimbo Dash MD Primary Care Provider Active Team Status: Active Member Role Status Dates Dr. Jimbo Dash MD Primary Care Provider, Referring Provider Active Dr. Tony Jasmine MD Attending Provider, Other Prov ider Active Team Status: Inactive Member Role Status Dates Dr. Jimbo Dash MD Primary Care Provider, Referring Provider Active Dr. Audie Moran MD Attending Provider Active Team Status: Inactive Member Role Status Dates Dr. Jimbo Dash MD Primary Care Provider, Referring Provider Active Dr. Reji Goldberg MD Active Martine Nguyen PA, PA Attending Provider Active Team Status: Active Member Role Status Dates Dr. Jimbo Dash MD Primary Care Provider Active Dr. Reji Goldberg MD Attending Provider Active Team Status: Inactive Member Role Status Dates Dr. Jimbo Dash MD Primary Care Provider, Referring Provider Active Dr. Tony Jasmine MD Attending Provider Active Team Status: Inactive Member Role Status Dates Dr. Jimbo Dash MD Primary Care Provider Active Dr. April Nicole MD Attending Provider, Referring P rovider Active Team Status: Inactive Member Role Status Dates Dr. Jimbo Dash MD Primary Care Provider Active Martine Biadyenharn PA, PA Attending Provider, Referrin g Provider Active Team Status: Inactive Member Role Status Dates Dr. Jimbo Dash MD Primary Care Provider, Referring Provider Active Martine Biedenharn PA, PA Attending Provider Active Team Status: Active Member Role Status Dates Dr. Jimbo Dash MD Primary Care Provider Active Dr. Reji Goldberg MD Attending Provider Active Martine Biedenharn PA, PA Referring Provider Active Team Status: Inactive Member Role Status Dates Dr. Jimbo Dash MD Primary Care Provi awais, Attending Provider, Referring Provider Active Team Status: Inactive Member Role Status Dates Dr. Jimbo Dash MD Primary Care Provider, Referring Provider Active Martine Biedenharn , PA Attending Provider Active Team Status: Active Member Role Status Dates Dr. Jimbo Dash MD Primary Care Provider Active Dr. Reji Goldberg MD Referring Provider, Other Provide r Active Martine Biadyenhardimitri , PA Attending Provider Active Team Status: Inactive Member Role Status Dates Dr. Jimbo Dash MD Primary Care Provider Active Martine Patrick PA Attending Provider, Referring Provider Active Team Status: Inactive Member Role Status Dates Dr. Jimbo Dash MD Primary Care Provider Active Dr. Reji Goldberg MD Attending Provider, Referring Pro vider Active Team Status: Active Member Role Status Dates Dr. Jimbo Dash MD Primary Care Provider Active Dr. Reji Goldberg MD Attending Provider, Referring Provider, Other Provider Active Martine Biedenhardimitri , PA Active Team Status: Inactive Member Role Status Dates Dr. Jimbo Dash MD Primary Care Provider, Attending Provider Active Team Status: Active Member Role Status Dates Dr. Jimbo Dash MD Primary Care Provider Active Health Risk Assessment Attending Provider, Referring P rovider Active Team Status: Inactive Member Role Status Dates Dr. Jimbo Dash MD Primary Care Provider Active Martine Power , PA Attending Provider, Referring Provid er Active Team Status: Active Member Role Status Dates Dr. Jimbo Dash MD Primary Care Provider Active Dr. Reji Goldberg MD Attending Provider Active KINGS Sidhu Referring Provider Active Team Status: Inactive Member Role Status Dates Dr. Jimbo Dash MD Primary Care Provider, Referring Provider Active KINGS Smith Attending Provider Active Team Status: Active Member Role Status Dates Dr. Jimbo Dash MD Primary Care Provider Active Team Status: Inactive Member Role Status Dates Dr. Jimbo Dash MD Primary Care Provider Active Start: May 21, 2024 End: May 21, 2024 Dr. Jimbo Dash MD Attending Provider Active Start: May 21, 2024 End: May 21, 2024 Dr. Jimbo Dash MD Referring Provider Active Start: May 21, 2024 End: May 21, 2024 Team Status: Inactive Member Role Status Dates Dr. Jimbo Dash MD Primary Care Provider Active Start: June 11, 2024 End: June 11, 2024 Dr. Rupert Mensah DO Attending Provider Active Start : June 11, 2024 End: June 11, 2024 Dr. Rupert Mensah DO Referring Provider Active Start : June 11, 2024 End: June 11, 2024 Dr. Rupert Mensah DO Emergency Provider Active Start : June 11, 2024 End: June 11, 2024 Team Status: Active Member Role Status Dates Dr. Jimbo Dash MD Primary Care Provider Active Start: June 11, 2024 Dr. Reji Goldberg MD Attending Provider Active S tart: June 11, 2024 Dr. Rupert Mensah DO Referring Provider Active Start : June 11, 2024 Team Status: Inactive Member Role Status Dates Dr. Jimbo Dash MD Primary Care Provider Active Start: July 08, 2024 End: July 08, 2024 Dr. Jimbo Dash MD Attending Provider Active Start: July 08, 2024 End: July 08, 2024 Dr. Jimbo Dash MD Referring Provider Active Start: July 08, 2024 End: July 08, 2024 Team Status: Active Member Role Status Dates Dr. Jimbo Dash MD Primary Care Provider Active Start: July 14, 2024 KINGS Sidhu Attending Provider Active Star t: July 14, 2024 KINGS Sidhu Referring Provider Active Star t: July 14, 2024 Team Status: Inactive Member Role Status Dates Dr. Jimbo Dash MD Primary Care Provider Active Start: July 14, 2024 End: July 14, 2024 KINGS Sidhu Attending Provider Active Star t: July 14, 2024 End: July 14, 2024 KINGS Sidhu Referring Provider Active Star t: July 14, 2024 End: July 14, 2024 Team Status: Active Member Role Status Dates Dr. Jimbo Dash MD Primary Care Provider Active Start: July 14, 2024 Dr. Reji Goldberg MD Attending Provider Active S tart: July 14, 2024 Dr. Reji Goldberg MD Referring Provider Active S tart: July 14, 2024 Field Applications Specialist Relationship Specialty Start Date End Date Jimbo Dash MD PCP - General Family Medicine 02/13/16 Jimbo Dash MD Family Medicine 02/13/16 Field Applications Specialist Relationship Specialty Start Date End Date Jimbo Dash MD PCP - General Family Medicine 02/13/16 Jimbo Dash MD Family Medicine 02/13/16 Field Applications Specialist Relationship Specialty Start Date End Date Jimbo Dash MD PCP - General Family Medicine 02/13/16 Jimbo Dash MD Family Medicine 02/13/16 Field Applications Specialist Relationship Specialty Start Date End Date Jimbo Dash MD PCP - General Family Medicine 02/13/16 Jimbo Dash MD Family Medicine 02/13/16 Field Applications Specialist Relationship Specialty Start Date End Date Jimbo Dash MD PCP - General Family Medicine 02/13/16 Jimbo Dash MD Family Medicine 02/13/16 Team Status: Inactive Member Role Status Dates Dr. Jimbo Dash MD Primary Care Provider Active Start: August 17, 2024 End: August 17, 2024 Dr. Jimbo Dash MD Attending Provider Active Start: August 17, 2024 End: August 17, 2024 Dr. Jimbo Dash MD Referring Provider Active Start: August 17, 2024 End: August 17, 2024 Team Status: Inactive Member Role Status Dates Dr. Jimbo Dash MD Primary Care Provider Active Start: August 17, 2024 End: August 17, 2024 Dr. Jimbo Dash MD Referring Provider Active Start: August 17, 2024 End: August 17, 2024 Dr. Reji Goldberg MD Attending Provider Active S tart: August 17, 2024 End: August 17, 2024 Team Status: Inactive Member Role Status Dates Dr. Jimbo Dash MD Primary Care Provider Active Start: October 13, 2024 End: October 13, 2024 PETEY MILLER Attending Provider Active Start: 2024 End: October 13, 2024 PETEY MILLER Referring Provider Active Start: [facility] 2024 End: October 13, 2024 Field Applications Specialist Relationship Specialty Start Date End Date Jimbo Dash MD PCP - General Family Medicine 02/13/16 Jimbo Dash MD Family Medicine 02/13/16 Field Applications Specialist Relationship Specialty Start Date End Date Jimbo Dash MD PCP - General Family Medicine 02/13/16 Jimbo Dash MD Family Medicine 02/13/16 Field Applications Specialist Relationship Specialty Start Date End Date Jimbo Dash MD PCP - General Family Medicine 02/13/16 Jimbo Dash MD Family Medicine 02/13/16 Field Applications Specialist Relationship Specialty Start Date End Date Jimbo Dash MD PCP - General Family Medicine 02/13/16 Jimbo Dash MD Family Medicine 02/13/16 Field Applications Specialist Relationship Specialty Start Date End Date Jimbo Dash MD PCP - General Family Medicine 02/13/16 Jimbo Dash MD Family Medicine 02/13/16 Reason for Visit (unrecogniz ed section and content) Reason Comments Results Reason Comments Referral Information Reason Comments Rash ITALO arms, neck, face x2 days Reason Comments Established Patient Reason Comments bladder stone Specialty Diagnoses / Procedures Referred By Santa t Referred To Contact Urology Diagnoses Bladder stone Procedures CONSULT TO UROLOGY OFFICE/OUTPATIENT [facility] 60 MINUTES Ric Taylor, PBX MANAGER.[employer] [address] [place] [address] Phone: tel: fax: Referral ID Status Reason Start Date Expiration Date V isits Requested Visits Authorized [id number] Closed PCP Requested Referral 09/08/2024 09/08/2025 1 1 Reason Comments Patient Update Reason Comments Cystoscopy-1 Bladder stone mesh e rosion Specialty Diagnoses / Procedures Referred By Santa t Referred To Contact Urology / UROLOGY Diagnoses Calculus in bladder Cystoscopy Procedures CYSTOURETHROSCOPY CYSTOSCOPY Fátima Santillan MD [address] [place] [address] Phone: tel: fax: Fátima Santillan MD [address] [place] [address] Phone: tel: fax: Referral ID Status Reason Start Date Expiration Date Visits Re quested Visits Authorized [id number] Closed 10/21/2024 04/28/2025 1 1 Reason Comments left 2nd toe pain X 1 day-hit toe on c ouch last night Goals (unrecognized section and content) Goals may be documented in a n alternate sectionGoals may be documented in an alternate sectionGoals may be documented in an alternate sectionGoals may be documented in an alternate sectionGoals may be documented in an alternate sectionGoals may be documented in an alternate sectionGoals may be documented in an alternate sectionGoals may be documented in an alternate sectionGoals may be documented in an alternate sectionGoals may be documented in an alternate sectionGoals may be documented in an alternate sectionGoals may be documented in an alternate sectionGoals may be documented in an alternate sectionGoals may be documented in an alternate sectionGoals may be documented in an alternate section INFORMATION SOURCE (unrecogn ized section and content) DATE CREATED AUTHOR 10/22/2024 [facility] DATE CREATED AUTHOR AUTHOR'S ORGANIZ ATION 12/06/2024 [facility] DATE CREATED AUTHOR AUTHOR'S ORGANIZ ATION 12/10/2024 [facility] [place] FOR RECORDS PERTAINING TO PATIENTS WHO ARE [...] BE BASED ON THE PRIMARY CLINICAL RECORDS. [facility]. provides no warranty or guarantee of the accuracy or completeness of information in this document.
[2024-12-11 07:49] LABS: Hematocrit 43.8 % (37-47); Hemoglobin 14.5 g/dL (12.0-15.0); Immature Granulocytes Count 0.030 X10^3/uL (0.0-0.0); Mean Corp Hgb Conc 33.1 g/dL (32-36); Mean Corpuscular Volume 89.9 fL (81-99); Mean Platelet Vol. 10.1 fl (6.2-12.0); NRBC Flagged by Analyzer 0 % (0-5); Platelet Count 255 K/mm3 (150-450); RBC Distribution Width CV 12.8 % (11.6-14.6); RBC Distribution Width SD 42.1 fl (35.1-43.9); Red Blood Count 4.87 M/mm3 (4.2-5.4); White Blood Count 5.4 K/mm3 (4.4-11.0)
--- NOTE | 2024-12-11 08:00 | VDLE_ITS ---
Reason For Study Reason For Study: Left leg swelling Procedure LEFT This is a venous duplex using B-mode, color flow and GSV is normal. spectral Doppler. Acute deep vein thrombosis is noted in the CFV. It is Exam performed portable in ED. dilated and NONCOMPRESSIBLE. A preliminary report was called and/or faxed to Dr. STEPHANIE mulligan, no venous flow noted. Consistent with Acute Lion. Deep Vein Thrombosis. Acute deep vein thrombosis is noted in the EIV, CFV, FV, PopV, T/P Trunk, PTV, PeroV, Gastroc V, Soleus V. It is dilated and NONCOMPRESSIBLE. Normal venous flow noted in the distal IVC. VL/Venous Duplex US, Unilateral Interpretation Summary Acute deep vein thrombosis is noted within a stented left common iliac vein. Ac [place] deep vein thrombosis in noted in the left external iliac vein. Acute deep vein thrombosis is noted in the left commo n femoral vein. Acute deep vein thrombosis is noted in the left femoral vein. Acute deep vein thrombosis is not ed in the left popliteal vein. Acute deep vein thrombosis is noted in the left tibio-peroneal trunk. Acute deep vein thro mbosis is noted in the left posterior tibial vein. Acute deep vein thrombosis is noted in the left peroneal vein. Acu te deep vein thrombosis is noted in the left gastrocnemius vein. Acute deep vein thrombosis is noted in the left soleus vein. Normal venous flow is noted in the distal inferior vena cava. Ordering Physician: Deep Lion Referring Physician: Jimbo Dash Performed By: Kacey Jenkins RVT
[2024-12-11 08:27] LABS: Anion Gap 12 (5-15); BUN 19 mg/dL (4-19); BUN/Creat Ratio 21.0 RATIO (10-20); Calcium,Total 9.7 mg/dL (7.6-11.0); Carbon Dioxide 23.0 mmol/L (21.0-32.0); Chloride 104 mmol/L (98-108); Estimated Creatinine Clearance 59.90 ml/min (50-250); Glucose 94 mg/dL (70-99); Potassium 4.1 mmol/L (3.3-5.1)
[2024-12-11 08:37] LABS: Prothrombin Time (Protime)PT. 13.5 SECONDS (11.7-14.9)
[2024-12-11 08:38] LABS: Partial Thromboplast Time 25.8 Seconds (24.1-36.2)
[2024-12-11 08:49] VITALS: BP 141/77; PULSE 78; RESP 16; O2SAT 98
--- NOTE | 2024-12-11 08:53 | EX.ED.DYSGE1 ---
HPI History of Present Illness Chief Complaint: Lower Extremity Injury Detail of Chief Complaint: Lower extremity pain and swelling Informant: patient Onset/Context/Timing Onset: Today (Today) Context: Sudden Onset Timing: Continuous Quality: Pain, 6 out of 10 Location: Entire left lower extremity Current Severity: Moderate Maximum Severity: Moderate Worsened by: Walking Relieved by: Nothing Associated Symptoms Associated Symptoms: Patient states she did not feel well yesterday. She had dyspnea on exertio Narrative Narrative: Patient with history of recurrent DVT. She had an extensive clot in her right lower extremity. She told Dr. Ledesma who saw her prior to my arrival that she had a recent stent on the left side. He informed her that her toes looked dusky and she had discoloration of her leg. She complained of abrupt pain. Patient yesterday states she did not feel her normal self. She had dyspnea with activity which is not normal. She denied pleuritic chest pain. Patient denies history of peripheral arterial disease. Patient presently denies shortness of breath. She denies chest pain. She denies headache, visual, ocular auditory symptoms. She denies abdominal pain, nausea, vomiting or diarrhea. She denies black or maroon stool. Patient states she was converted from Eliquis to Plavix. This occurred 1 to 2 months ago. This was in discussion with Dr. Goldberg and risk benefits were explained to her. Prior similar symptoms: Yes (Right side and history of clot left iliac vein.) Recent Illness/Hospitalization: No [facility] Medical History GERD (gastroesophageal reflux disease) Loss of hearing Wears glasses Arthritis Bladder disease DVT (deep venous thrombosis) Restless legs Difficulty swallowing Gastric reflux Non-smoker Leg cramps History of pain when walking History of echocardiogram History of stress test Anxiety Anemia Home Medications ?Medication ?Instructions ?Recorded ?Last Taken ?Type sertraline 100 mg tablet 50 mg PO BID anxiety 03/30/14 03/13/24 History Cholecalciferol (Vitamin D3) 5,000 unit PO DAILY supplement 03/07/20 03/13/24 History [Vitamin D3] cyanocobalamin (vitamin B-12) 3,000 mcg PO DAILY supplement 03/07/20 03/13/24 History 5,000 mcg disintegrating tablet omeprazole 20 mg tablet,delayed 20 mg PO QHS reflux 03/07/20 03/12/24 History release pitavastatin calcium 2 mg tablet 4 mg PO QPM cholesterol 02/08/22 03/12/24 History (Livalo) cetirizine 10 mg capsule (Zyrtec) 10 mg PO DAILY allergies 04/12/22 03/13/24 History dicyclomine 20 mg tablet 20 mg PO BID IBS 10/02/22 03/13/24 History alendronate 70 mg tablet 70 mg PO QWEEK bones 11/28/23 Unknown History tizanidine 2 mg tablet 2 mg PO QHS PRN muscle spasticity 12/10/23 Unknown Rx #14 tabs clopidogrel 75 mg tablet (Plavix) 75 mg PO DAILY #90 tabs 10/27/24 Unknown Rx apixaban 5 mg (74 tabs) tablets in See Rx Instructions .Route 12/11/24 Unknown Rx a dose pack (Eliquis DVT-PE Treat .COMPLEX #74 tabs 30D Start) oxycodone 10 mg tablet,crush 10 mg PO Q12H 3 days #6 tabs 12/11/24 Unknown Rx resistant,extended release 12 hr oxycodone-acetaminophen 5 mg-325 1 tab PO Q6H PRN PRN pain 5 days 12/11/24 Unknown Rx mg tablet #20 TABLETS Allergy/AdvReac Type Severity Reaction Status Date / Time hydrocodone (From Vicodin) Allergy Nausea/Vom/ Verified 12/11/24 06:53 Diarrhea Family History Mother Colon cancer Cancer ovary Diabetes Father Hypertension Surgical History Hx of bladder repair surgery Hx of cystoscopy Hx of shoulder surgery Hx of colonoscopy S/P rotator cuff repair S/P bunionectomy S/p bilateral carpal tunnel release S/P cholecystectomy S/P hysterectomy Social History household members: spouse housing: house current occupational status: employed Smoking Status: Never smoker alcohol intake: never ROS ROS ED Constitutional Constitutional ED: Denies chills or fever(s) Cardiovascular Cardiovascular: Denies chest pain, orthopnea, palpitations, paroxysmal nocturnal dyspnea or racing heartbeat Respiratory/Chest Respiratory/Chest: Reports dyspnea and dyspnea on exertion; Denies cough, orthopnea or paroxysmal nocturnal dyspnea Gastrointestinal Gastrointestinal: Denies abdominal pain, nausea or vomiting Genitourinary Genitourinary ED: Denies dysuria, hematuria or urinary frequency Musculoskeletal Musculoskeletal: Denies arthralgias or myalgias Integumentary Reports other Details: Left leg is discolored Neurologic Neurologic: Denies paresthesias or weakness Endocrine Endocrinology: Denies cold intolerance or heat intolerance Hematologic/Lymphatic Hematologic/Lymphatic: Reports easy bruising EXAM Physical Exam Const Vital Signs: 12/11/24 06:49 Temperature 98 F Temperature Source Oral Pulse Rate 103 H Respiratory Rate 18 Blood Pressure 147/101 H Blood Pressure Mean 116 Pulse Ox 98 Positive well nourished and well developed General Appearance ED: well developed and NAD HEENT Reports moist mucous membranes HEENT Narrative: Head is atraumatic, cephalic. 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 Patient has a palpable DP and PT pulse. It might be slightly diminished compared to the right. I did review the CT a of the abdomen pelvis with runoffs and there is decreased flow at the area of the popliteal artery. There is no obvious clot that I was able to appreciate. Will await formal read by radiologist. Neuro oriented x3 and CN's II-XII intact bilaterally Sensorium / Orientation: alert Psych mental status grossly normal Skin Skin Narrative: Phlegmasia cerulea dolens left lower extremity MDM MDM MDM Narrative Medical decision making narrative: Initial entries by Dr. Ledesma. After seeing patient reviewing her records with prior history of VTE and not PAD and the fact that she has phlegmasia cerulea dolens suspect she has an extensive clot in her left lower extremity. Venous duplex study was obtained since radiologist does not comment on the venous system. The venous duplex reveals normal greater saphenous vein. There is no acute deep venous thrombus in the common femoral vein, common iliac stented vein, EIV, C FV, FV, popliteal, TP trunk, PTV, peroneal vein, gastrocnemius vein, soleus vein. In light of this finding the fact that patient had procedure done by Dr. Goldberg he was paged. Spoke with Dr. Goldberg. Recommended Eliquis. His office will contact her for outpatient procedure. He was informed that I am concerned that she may have thrown a PE. He is in a agreement. Since she is hemodynamically stable not hypoxic and there is no vascular compromise of the extremity recommendation was Eliquis 10 mg twice daily for 1 week and then 5 mg twice daily. Patient is requesting pain medicine. She was discharged with pain medicine. She was instructed if she develops chest pain difficulty breathing to return immediately. If her leg becomes pale to return immediately. As document HPI narrative prior records were reviewed and specifically Dr. Kingsley. History & Record Review Additional record(s) reviewed:: Prior inpatient record and Prior outpatient record Lab Data Attestation: I reviewed the patient's lab results. Lab results narrative: Lactate is normal. Competence of metabolic panel is unremarkable. BUN/creatinine ratio is slightly elevated 21-1. CBC is normal. Labs: Laboratory Results - last 24 hr 12/11/24 12/11/24 07:36 07:59 WBC 5.4 RBC 4.87 Hgb 14.5 Hct 43.8 MCV 89.9 MCH 29.8 MCHC 33.1 RDW Std Deviation 42.1 RDW Coeff of Horacio 12.8 Plt Count 255 MPV 10.1 Immature Gran % (Auto) 0.600 Neut % (Auto) 52.4 Lymph % (Auto) 30.7 [place] % (Auto) 7.8 Eos % (Auto) 7.8 H Baso % (Auto) 0.7 Absolute Neuts (auto) 2.8 Absolute Lymphs (auto) 1.65 Nucleated RBC % 0 PT 13.5 INR 1.0 APTT 25.8 Sodium 139 Potassium 4.1 Chloride 104 Carbon Dioxide 23.0 Anion Gap 12 BUN 19 Creatinine 0.91 Estim Creat Clear Calc 59.90 Est GFR (MDRD) Non-Af 73 BUN/Creatinine Ratio 21.0 H Glucose 94 Lactic Acid < 1.0 Calcium 9.7 Radiography Diagnostic Testing: Clinical Impression(s) from Imaging Studies Abdomen/Pelvis CTA 12/11/24 06:54 IMPRESSION: Poor runoff in the left lower extremity distal to the popliteal artery. [facility] Discussion w/another healthcare provider: [employer] (Spoke with Dr. Goldberg. This was documented the MDM portion of the EMR.) Discharge Plan Triage Chief Complaint: Lower Extremity Injury ED Provider: [facility] Dx/Rx/DC Orders Clinical Impression: Phlegmasia cerulea dolens of left lower extremity, Sinus tachycardia, Acute pain of left lower extremity Instructions: ED Deep Vein Thrombosis (DVT) Prescriptions: New Eliquis DVT-PE Treat 30D Start 5 mg (74 tabs) Tablets,Dose Pack See Rx Instructions .ROUTE .COMPLEX Qty: 74 0RF Rx Instructions: orally per package directions oxycodone-acetaminophen 5-325 mg tablet 1 tab PO Q6H PRN PRN (Reason: pain) 5 Days Qty: 20 0RF oxycodone 10 mg tablet,oral only,ext.rel.12 hr 10 mg PO Q12H 3 Days Qty: 6 0RF No Action Zyrtec 10 mg capsule 10 mg PO DAILY tizanidine 2 mg tablet 2 mg PO QHS PRN (Reason: muscle spasticity) Qty: 14 1RF sertraline 100 MG tablet 50 mg PO BID Patient Comments: ANXIETY cyanocobalamin (vitamin B-12) 5,000 MCG tablet,disintegrating 3,000 mcg PO DAILY Cholecalciferol (Vitamin D3) [Vitamin D3] 5,000 UNIT capsule 5,000 unit PO DAILY omeprazole 20 MG tablet,delayed release (DR/EC) 20 mg PO QHS pitavastatin calcium [Livalo] 2 mg Tablet 4 mg PO QPM dicyclomine 20 mg Tablet 20 mg PO BID alendronate 70 mg tablet 70 mg PO QWEEK clopidogrel [Plavix] 75 mg tablet 75 mg PO DAILY Qty: 90 3RF Primary Care Provider: Jimbo Dash Referrals: Jimbo Dash MD [Primary Care Provider] - Activity Restrictions/Additional Instructions: If you develop chest pain, shortness of breath walking across the room or up steps or your leg becomes pale and the pain increases return to the emergency department immediately Print Language: Georgian Disposition Disposition: Home, Self Care
[2024-12-11] MEDS: APIXABAN 5 MG TABLET 10 MG PO (09:00)
[2024-12-11 09:34] VITALS: BP 141/77; PULSE 78; RESP 16; TEMP 36.8; O2SAT 98
== END 2024-12-11 09:35 | disposition home or self-care (01) ==
PROVIDERS: Emergency Medicine; Emergency Provider Emergency Medicine; PCP Family Medicine; Visit Provider Emergency Medicine
DX: M79.605 Pain in left leg (principal); I80.202 Phlebitis and thrombophlebitis of unspecified deep vessels of left lower extremity; R00.0 Tachycardia, unspecified; Z86.718 Personal history of other venous thrombosis and embolism; M79.89 Other specified soft tissue disorders; Z79.02 Long term (current) use of antithrombotics/antiplatelets; K21.9 Gastro-esophageal reflux disease without esophagitis; Z79.899 Other long term (current) drug therapy; F41.9 Anxiety disorder, unspecified; Z90.49 Acquired absence of other specified parts of digestive tract; Z90.710 Acquired absence of both cervix and uterus
CPT/HCPCS: 75635; 80048; 83605; 85025; 85610; 85730; 93971; 96361; 96374; 96375; 99285; Q9967; A4216; J2405

== ENCOUNTER 2024-12-28 15:04 | Emergency (ER) | payer OTHER, SELFPAY ==
[2024-12-28 15:05] VITALS: BP 122/68; PULSE 89; RESP 20; TEMP 36.6; O2SAT 98; BMI 24.2
--- NOTE | 2024-12-28 15:20 | CT_ITS ---
PROCEDURE: CTA CHEST W/WO CONTRAST 12/28/2024 REASON FOR EXAM: TACHYPNEA, SANABRIA, PHLEGMASIA CERULEA DOLENS ON APIXA TECHNIQUE: Procedure Code: [id number] Modality: CT Procedure: CTA CHEST W/WO CONTRAST Multiplanar Sagittal and Coronal images were obtained. CONTRAST: 100 mL of Isovue 370 One or more dose reduction techniques were used (e.g., Automated exposure control, adjustment of the mA and/or kV according to patient size, use of iterative reconstruction technique). RADIATION DOSE SUMMARY: DLP: 798 mGycm COMPARISON: none FINDINGS: PULMONARY ARTERIES: No evidence of pulmonary embolism. LUNGS AND PLEURA: No consolidations. No definite pulmonary edema. No mass or nodule. No pleural effusion. No pneumothorax. MEDIASTINUM: No lymphadenopathy or mass. The heart shows no acute findings. The aorta shows no acute findings. The pulmonary trunk, and branches of the vessels in the mediastinum are within normal limits. SUPRACLAVICULAR AND AXILLARY: No abnormalities seen in these regions. No mass or significant lymphadenopathy. UPPER ABDOMEN: The visualized upper abdomen is unremarkable. BONES AND SOFT TISSUES: The ribs are unremarkable. The visualized spine shows no significant acute findings. No focal bony mass lesions noted. The subcutaneous soft tissues are unremarkable. CT/CTA Chest W/WO Contrast IMPRESSION: No acute pulmonary emboli. No focal consolidations. Reading Location: [facility]
--- NOTE | 2024-12-28 15:21 | EX.ED.DYSGE1 ---
HPI History of Present Illness Chief Complaint: Lower Extremity Injury Detail of Chief Complaint: Recurrent pain swelling left lower extremity, dyspnea and SANABRIA Informant: patient and spouse/S.O. Onset/Context/Timing Onset: Days Context: Sudden Onset Timing: Continuous Quality: Increasing left lower extremity pain, phlegmasia cerulea dolens Location: Pain Current Severity: Mild Maximum Severity: Moderate Worsened by: Ambulation Relieved by: Nothing Associated Symptoms Associated Symptoms: Dyspnea, dyspnea on exertion Narrative Narrative: Patient is a 59-year-old woman. She has history of recurrent DVT. Patient was seen on December 11 by me. She was diagnosed with an extensive clot that involved the left iliac down to her ankle. Patient was treated with apixaban. She is presently on Plavix. She followed up at [facility] and had a thrombectomy done by vascular at [facility]. Patient reports operative report was sent to Dr. Reji Goldberg. She was cleared to go to [place]. Several days after she was in [place] she developed pain again and swelling. Venous duplex study revealed recurrent clot. She was anticoagulated with heparin. She was discharged home. She now presents because of increasing pain swelling discoloration. She is noted to be tachypneic. Patient reports shortness of breath just walking up the incline to the emergency department. She does not have pleuritic pain. She has not missed any of her apixaban doses. Patient denies paresthesia, anesthesia or motor weakness. Patient's prior records reviewed. Records from [facility] was reviewed. She had a copy of the records from [place]. Dr. Goldberg confirmed that he is aware of the recurrent clots. This is in spite of patient being on apixaban and Plavix. Prior similar symptoms: Yes Recent Illness/Hospitalization: Yes [facility] Medical History GERD (gastroesophageal reflux disease) Loss of hearing Wears glasses Arthritis Bladder disease DVT (deep venous thrombosis) Restless legs Difficulty swallowing Gastric reflux Non-smoker Leg cramps History of pain when walking History of echocardiogram History of stress test Anxiety Anemia Home Medications ?Medication ?Instructions ?Recorded ?Last Taken ?Type sertraline 100 mg tablet 50 mg PO BID anxiety 03/30/14 03/13/24 History Cholecalciferol (Vitamin D3) 5,000 unit PO DAILY supplement 03/07/20 03/13/24 History [Vitamin D3] cyanocobalamin (vitamin B-12) 3,000 mcg PO DAILY supplement 03/07/20 03/13/24 History 5,000 mcg disintegrating tablet omeprazole 20 mg tablet,delayed 20 mg PO QHS reflux 03/07/20 03/12/24 History release pitavastatin calcium 2 mg tablet 4 mg PO QPM cholesterol 02/08/22 03/12/24 History (Livalo) cetirizine 10 mg capsule (Zyrtec) 10 mg PO DAILY allergies 04/12/22 03/13/24 History dicyclomine 20 mg tablet 20 mg PO BID IBS 10/02/22 03/13/24 History alendronate 70 mg tablet 70 mg PO QWEEK bones 11/28/23 Unknown History tizanidine 2 mg tablet 2 mg PO QHS PRN muscle spasticity 12/10/23 Unknown Rx #14 tabs clopidogrel 75 mg tablet (Plavix) 75 mg PO DAILY #90 tabs 10/27/24 Unknown Rx apixaban 5 mg (74 tabs) tablets in See Rx Instructions .Route 12/11/24 Unknown Rx a dose pack (EliquLily & Strum DVT-PE Treat .COMPLEX #74 tabs 30D Start) oxycodone 10 mg tablet,crush 10 mg PO BID 4 days #8 tabs 12/11/24 Unknown Rx resistant,extended release 12 hr oxycodone-acetaminophen 5 mg-325 1 tab PO Q6H PRN PRN pain 5 days 12/11/24 Unknown Rx mg tablet #20 TABLETS enoxaparin 60 mg/0.6 mL 60 mg (0.6 mL) subcut Q12H 30 days 12/28/24 Unknown Rx subcutaneous syringe (Lovenox) #36 mL Allergy/AdvReac Type Severity Reaction Status Date / Time hydrocodone (From Vicodin) Allergy Nausea/Vom/ Verified 12/28/24 15:07 Diarrhea Family History Mother Colon cancer Cancer ovary Diabetes Father Hypertension Surgical History Hx of bladder repair surgery Hx of cystoscopy Hx of shoulder surgery Hx of colonoscopy S/P rotator cuff repair S/P bunionectomy S/p bilateral carpal tunnel release S/P cholecystectomy S/P hysterectomy Social History household members: spouse housing: house current occupational status: employed Smoking Status: Never smoker alcohol intake: never ROS ROS ED Constitutional Constitutional ED: Denies chills, fever(s) or subjective Eyes Eyes: Denies change in vision Cardiovascular Cardiovascular: Denies chest pain, orthopnea, palpitations, paroxysmal nocturnal dyspnea or racing heartbeat Respiratory/Chest Respiratory/Chest: Reports dyspnea and dyspnea on exertion; Denies cough, orthopnea or paroxysmal nocturnal dyspnea Gastrointestinal Gastrointestinal: Denies abdominal pain, nausea or vomiting Musculoskeletal Musculoskeletal: Denies back pain Integumentary Denies rash Neurologic Neurologic: Denies paresthesias or weakness Hematologic/Lymphatic Hematologic/Lymphatic: Reports easy bruising EXAM Physical Exam Const Vital Signs: 12/28/24 15:05 Temperature 98 F Temperature Source Oral Pulse Rate 89 Respiratory Rate 20 H Blood Pressure 122/68 H Blood Pressure Mean 86 Pulse Ox 98 Oxygen Delivery Method Room Air Positive well nourished and well developed Constitutional Narrative: Patient is tachypneic. She does complain of shortness of breath with minimal activity. She was quite winded walking up the incline to get to the emergency room. Estimate incline is less than 5%. General Appearance ED: well developed; Negative for cyanotic or diaphoretic HEENT Reports moist mucous membranes HEENT Narrative: Is atraumatic and normocephalic. Ears normal. Nares patent Eyes PERRL and EOMs intact bilaterally General Eye ED: Negative for pale conjunctiva or scleral icterus Neck no lymphadenopathy, supple and no JVD Resp normal respiratory effort and clear to auscultation bilaterally Cardio regular rate, regular rhythm, S1 normal heart sound, S2 normal heart sound and no murmurs GI normal to inspection, nondistended, normoactive bowel sounds, non-tender, non-distended and no masses; Negative for hepatosplenomegaly Extremity Negative for normal to inspection Extremity Narrative: Patient has a swollen discolored left lower extremity compared to the right. There is no neurovascular compromise. Patient is complaining of pain in the groin region. Neuro oriented x3 and CN's II-XII intact bilaterally Sensorium / Orientation: alert Psych mental status grossly normal Skin no rashes or lesions noted, no wounds and skin turgor normal MDM MDM MDM Narrative Medical decision making narrative: Concern patient has recurrent clots. With her being tachypneic, dyspneic and SANABRIA plan is to get a CTA and baseline blood work. If she has a PE per discussion with Dr. Reji Goldberg discontinue apixaban placed on heparin and he will see her tomorrow after venous duplex study to determine treatment options. If negative plan is outpatient venous duplex study with report to Dr. Goldberg and switch from apixaban to Lovenox. History & Record Review Additional record(s) reviewed:: Prior inpatient record (Documented in HPI narrative), Prior outpatient record (Documented HPI narrative), Prior ED visit (Documented HPI narrative) and Prior labs Lab Data Attestation: I reviewed the patient's lab results. Lab results narrative: CBC is remarkable for a hemoglobin of 10.6 and 32.9. Indices are normal. Basic metabolic panel reveals a normal BUN to creatinine ratio. Glucose is slightly elevated 123. Labs: Laboratory Results - last 24 hr 12/28/24 15:30 WBC 4.9 RBC 3.60 L Hgb 10.6 L Hct 32.9 L MCV 91.4 MCH 29.4 MCHC 32.2 RDW Std Deviation 44.7 H RDW Coeff of Horacio 13.5 Plt Count 356 MPV 9.1 Immature Gran % (Auto) 0.400 Neut % (Auto) 69.6 Lymph % (Auto) 18.4 L [place] % (Auto) 5.9 Eos % (Auto) 5.1 H Baso % (Auto) 0.6 Absolute Neuts (auto) 3.4 Absolute Lymphs (auto) 0.90 Nucleated RBC % 0 Sodium 142 Potassium 3.9 Chloride 108 Carbon Dioxide 22.6 Anion Gap 11 BUN 16 Creatinine 0.85 Estim Creat Clear Calc 64.12 Est GFR (MDRD) Non-Af 79 BUN/Creatinine Ratio 18.5 Glucose 123 H Calcium 9.0 If radiologist agrees there is no evidence of PE or any pulmonary pathology suspect patient's dyspnea is due to your gram and her hemoglobin since December 11. Radiography Diagnostic Testing: Clinical Impression(s) from Imaging Studies Chest CTA 12/28/24 15:20 IMPRESSION: No acute pulmonary emboli. No focal consolidations. Reading Location: [facility] CTA of the chest reveals no obvious pulmonary embolus. There is no effusion. There is no pneumothorax. Awaiting formal read by radiologist [id number]. Treatment and Re-Evaluation :: Spoke with Dr. Goldberg and informed him of the CT results and her laboratory results. Plan is discharge to home Lovenox 1 mg/kg twice a day. She is to discontinue the apixaban. Venous duplex study in the morning. He will contact her and make appropriate arrangements to workup her anemia and discuss treatment options regarding her recurrent clot Discharge Plan Triage Chief Complaint: Lower Extremity Injury ED Provider: [facility] Dx/Rx/DC Orders Clinical Impression: Symptomatic anemia, Phlegmasia cerulea dolens of left lower extremity, Acute anemia Instructions: Anemia, DVT Dc Prescriptions: New enoxaparin [Lovenox] 60 mg/0.6 mL syringe 60 mg subcut Q12H 30 Days Qty: 36 0RF No Action Zyrtec 10 mg capsule 10 mg PO DAILY tizanidine 2 mg tablet 2 mg PO QHS PRN (Reason: muscle spasticity) Qty: 14 1RF sertraline 100 MG tablet 50 mg PO BID Patient Comments: ANXIETY cyanocobalamin (vitamin B-12) 5,000 MCG tablet,disintegrating 3,000 mcg PO DAILY Cholecalciferol (Vitamin D3) [Vitamin D3] 5,000 UNIT capsule 5,000 unit PO DAILY omeprazole 20 MG tablet,delayed release (DR/EC) 20 mg PO QHS pitavastatin calcium [Livalo] 2 mg Tablet 4 mg PO QPM dicyclomine 20 mg Tablet 20 mg PO BID Eliquis DVT-PE Treat 30D Start 5 mg (74 tabs) Tablets,Dose Pack See Rx Instructions .ROUTE .COMPLEX Qty: 74 0RF Rx Instructions: orally per package directions oxycodone-acetaminophen 5-325 mg tablet 1 tab PO Q6H PRN PRN (Reason: pain) 5 Days Qty: 20 0RF oxycodone 10 mg tablet,oral only,ext.rel.12 hr 10 mg PO BID 4 Days Qty: 8 0RF alendronate 70 mg tablet 70 mg PO QWEEK clopidogrel [Plavix] 75 mg tablet 75 mg PO DAILY Qty: 90 3RF Primary Care Provider: Jimbo Dash Referrals: Jimbo Dash MD [Primary Care Provider] - Activity Restrictions/Additional Instructions: 1. Dr. Reji Goldberg will contact you after he reviews your venous duplex study that is ordered for tomorrow morning. 2. Discontinue the apixaban. 3. A prescription for Lovenox was sent to your pharmacy. Start the Lovenox this evening. Print Language: French Disposition Disposition: Home, Self Care
--- OUTSIDE RECORDS SUMMARY | 2024-12-28 15:34 | XMS RPT_ITS | CCD ---
Author Organization [facility]iniSyor Care Team Providers Care Clinical Appeals Reviewer Name Role Phone Saeid Griffith Unavailable Camila Stewart LPN Unavailable Unavailab jennifer Garner ORTHOTIC FINISH GRINDING TECHNICIAN-C, Neto Blum Unavailable Unavailable Now Nurse Unavailable Unavailable Camila Stewart LPN Unavailable Unavailab Jimbo Costa MD Primary Care Provider Jimbo Dash MD Unavailable Dr. Jimbo Dash Primary Care Provider Dr. Jimbo Dash Referring Provider Dr. Tony Jasmine Attending Provider [phone] KINGS Griffith Attending Provider Dr. Tony Jasmine Other Provider Jimbo Dash MD Primary Care Provider [phone] Jimbo Dash MD Unavailable Dr. Jimbo Dash [...] Dr. Jimbo Dash MD Primary Care Provider Hardy MCELROY, Dr. Choi Attending Provider Hardy MCELROY, Dr. Choi Referring Provider Jennifer GEORGE, Dr. Emery Attending Provider Jennifer DO, Dr. Emery Referring Provider Jennifer DO, Dr. Emery Emergency Provider Ashlyn MCELROY, Dr. Mendoza Attending Provider Tono PA, Martine Attending Provider [phone] Tono PA, Martine Referring Provider Ashlyn MCELROY, Dr. Mendoza Referring Provider Hardy MCELROY, Jimbo Joseph Primary Care Provider Hardy MCELROY, Jimbo Joseph Unavailable Hardy MCELROY, Dr. Choi Primary Care Provider Hardy MCELROY, Dr. Choi Attending Provider Hardy MCELROY, Dr. Choi Referring Provider Ashlyn MCELROY, Dr. Mendoza Attending Provider [phone] ELIDA ANGELO Attending Provider [phone] ELIDA ANGELO Referring Provider Hardy MCELROY, Dr. Choi Primary Care Provider Hardy MCELROY, Dr. Choi Attending Provider Hardy MCELROY, Dr. Choi Referring Provider Ashlyn MCELROY, Dr. Mendoza Attending Provider [phone] Corey MCELROY, Dr. Chen Attending Provider Ayad MCELROY, Dr. Adame Emergency Provider Reji Goldberg Attending Unavailable Reji Goldberg Referring Unavailable Jimbo Dash Primary Care Unavailable Jimbo Dash Referring Unavailable Jimbo Dash Primary Care Unavailable Martine Power Attending Unavailable Hardy, Jimbo Primary Care Unavailable Power, Martine Referring Unavailable Reji Goldberg Attending Unavailable HODA CASTRO Referring Unavailable HODA CASTRO Attending Unavailable Dash, Jimbo Primary Care Unavailable Dash, Jimbo Referring Unavailable Nikolai, Reji Attending Unavailable Dash, Jimbo Primary Care Unavailable Dash, Jimbo Primary Care Unavailable Dash, Jimbo Referring Unavailable Nikolai, Reji Attending Unavailable Dash, Jimbo Primary Care Unavailable TorrezMp Attending Unavailable Dash, Jimbo Primary Care Unavailable Dash, Jimbo Referring Unavailable Dash, Jimbo Attending Unavailable Dash, Jimbo Primary Care Unavailable Dash, Jimbo Referring Unavailable Dash, Jimbo Attending Unavailable Dash, Jimbo Primary Care Unavailable Power, Martine Referring Unavailable Power, Martine Attending Unavailable Dash, Jimbo Primary Care Unavailable Dash, Jimbo Referring Unavailable Dash, Jimbo Attending Unavailable Dash, Jimbo Primary Care Unavailable Assessment, Health Risk Referring Unavaila ble Assessment, Health Risk Attending Unavaila ble Nikolai, Reji Referring Unavailable Nikolai, Reji Attending Unavailable Dash, Jimbo Primary Care Unavailable Dash, Jimbo Primary Care Unavailable Dash, Jimbo Referring Unavailable Dash, Jimbo Attending Unavailable Dash, Jimbo Primary Care Unavailable Dash, Jimbo Referring Unavailable Dash, Jimbo Attending Unavailable Dash, Jimbo Primary Care Unavailable Power, Martine Attending Unavailable Power, Martine Referring Unavailable Dash, Jimbo Primary Care Unavailable Le, Rupert Referring Unavailable Le, Rupert Attending Unavailable Lion, Deep Attending Unavailable Dash, Jimbo Primary Care Unavailable Dash, Jimbo Primary Care Unavailable Le, Rupert Referring Unavailable Nikolai, Reji Attending Unavailable Unavailable Primary Care Provider UnavailFÁTIMA Cardozo Referring Unavailable DASH, JIMBO R Primary Care Unavailable RIC TAYLOR Attending Unavailable 10:32AM EST [id number] N Normal [facility] No Panel Informationon 12-14 2h Troponin HS (Serial 2nd Troponin) 58 ng/L High NINF - 14 ng/L [facility] Comment on above: Rising or falling tr oponin delta below 2 ng/L as compared to baseline value suggests that acute cardiac injury is unlikely. Interpretation and review of laboratory results Abnormal [facility] Interpretation and review of laboratory results Abnormal [facility] Troponin HS Serial Baseline 57 ng/L High NINF - 14 ng/L [facility] Comment on above: In individuals prese nting with symptoms > 2h, a baseline troponin <= 5 ng/L suggests acute cardiac injury is unlikely and further serial testing is generally not indicated. [facility] PROTHROMBIN TIMEon INR Coag (PPP) [Relative time] 1.0 {INR} Normal 0.9-1.1 [facility] Comment on above: Result Comment: Carlos Enrique mmended Anticoagulant Therapy: SEE BELOW ----- INR of 2.0 - 3.0 : - Prophylaxis of Venous Thrombosis (high-risk surgery) - Treatment of Venous Thrombosis - Treatment of Pulmonary Embolism (Includes tissue heart valves, Acute Myocardial Infarction to prevent systemic embolism, Valvular Heart Disease, and Atrial Fibrillation) ----- INR of 2.5 - 3.5 : - Mechanical Prosthetic Valves (high risk) - If oral anticoagulant therapy is used to prevent Myocardial Infarction Performed By: #### L AB320 ####Industrial Relations Worker: AVERY WORTHINGTON ([id number])[address] PT Coag (PPP) [Time] 10.5 s Normal 9.0-12.0 [facility] Comment on above: Performed By: #### Noy AB320 ####Industrial Relations Worker: AVERY WORTHINGTON ([id number])[facility] ([facility])[address] [place] [address] PT Coag (Bld) [Time]on 12-14 INR Coag (PPP) [Relative time] 1 {INR} 0.9 - 1.1 [facility] Comment on above: Recommended Anticoag ulant Therapy: SEE BELOW ----- INR of 2.0 - 3.0 : - Prophylaxis of Venous Thrombosis (high-risk surgery) - Treatment of Venous Thrombosis - Treatment of Pulmonary Embolism (Includes tissue heart valves, Acute Myocardial Infarction to prevent systemic embolism, Valvular Heart Disease, and Atrial Fibrillation) ----- INR of 2.5 - 3.5 : - Mechanical Prosthetic Valves (high risk) - If oral anticoagulant therapy is used to prevent Myocardial Infarction Interpretation and review of laboratory results Normal Former[facility] named [facility] HEALTHon 12-12-2024 [facility] HNO ID: [id number] Author: MARILU OWEN RT(R) Service: Radiology Author Type: Technologist Type: Allied Health Filed: 12/12/2024 18:23 Note Text: Radiology Service Progress Note DATE OF SERVICE: December 12, 2024 TIME: 6:23 PM PATIENT IDENTITY VERIFICATION COMPLETED USING TWO (2) STANDARD IDENTIFIERS: Name and Date of confirmed by patient verbally and Name and Date of confirmed by identification band. FALL SCREENING: Has the patient had 2 falls in the last year or 1 fall with injury or currently using an Ambulatory Assistive Device (Walker, Cane, Wheelchair, Crutches, etc.)? Emergency Room Patient: Screened in ED PATIENT GENDER DATA: Assigned female at . status: : No status: NO. PATIENT RELEVANT IMPLANT DATA REVIEWED: Not Applicable PATIENT PRESENTS WITH AN IMPLANTABLE OR ATTACHED HEARTH FEEDER: No ALLERGIES: Reviewed and unchanged CONTRAST ALLERGY: NO. EXAM: CT -CONTRAST INDUCED NEPHROPATHY RISK FACTORS: Not applicable CREATININE: Creatinine Date Value Ref Range Status 12/12/2024 0.91 0.58 - 0.96 mg/dL Final Estimated Glomerular Filtration Rate Date Value Ref Range Status 12/12/2024 73 >=60 mL/min/1.73m? Final Comment: Estimated Glomerular Filtration Rate (eGFR) is calculated using the 2020 CKD-EPI creatinine equation. This equation utilizes serum creatinine, sex, and age as parameters. The creatinine assay has traceable calibration to isotope dilution-mass spectrometry. Refer to KDIGO guidelines for clinical interpretation. In patients with unstable renal function, e.g. those with acute kidney injury, the eGFR may not accurately reflect actual GFR. P.O.C.T. RESULTS: POC done: Yes, See Lab Tab December 12, 2024 TREATMENT: N/A and No Hydration needed. PERIPHERAL IV DATA: Inpatient - refer to [facility] documentation RADIOLOGY DEPARTMENT: CT; Exam(s) Completed: PE Study SIGNATURE: RT Zara(R) PATIENT NAME: Karolina Ahn DATE: December 12, 2024 TIME: 6:23 PM Normal [facility] CBC W Auto Differential pane l (Bld)on 12-12-2024 Basophils (Bld) [#/Vol] 0.04 10*3/uL Normal <0.11 [facility] Comment on above: Order Comment: Speci men Type: BLOOD SPECIMENOrdering Facility: [facility] Address: [address] [place] [address] Performed By: #### 5 7021-8 ####[facility] LABORATORYCLIA [id number] [address] STATES [facility] Basophils/100 WBC (Bld) 0.4 % Normal A [facility] Comment on above: Order Comment: Speci men Type: BLOOD SPECIMENOrdering Facility: [facility] Address: [address] [place] [address] Performed By: #### 5 7021-8 ####[facility] LABORATORYCLIA [id number] [address] Differential cell count method Nom (Bld) Auto Normal [facility] Comment on above: Order Comment: Speci men Type: BLOOD SPECIMENOrdering Facility: [facility] Address: [address] [place] [address] Performed By: #### 5 7021-8 ####[facility] LABORATORYCLIA [id number] [address] STATES OF [facility] Eosinophils (Bld) [#/Vol] 0.28 10*3/uL Normal <0.46 [facility] Comment on above: Order Comment: Speci men Type: BLOOD SPECIMENOrdering Facility: [facility] Address: [address] [place] [address] Performed By: #### 5 7021-8 ####[facility] LABORATORYCLIA [id number] [address] Eosinophils/100 WBC (Bld) 2.9 % Normal [facility] Comment on above: Order Comment: Speci men Type: BLOOD SPECIMENOrdering Facility: [facility] Address: [address] [place] [address] Performed By: #### 5 7021-8 ####[facility]ATORYCLIA [id number] [address] STATES [facility] Erythrocyte distribution width (RBC) [Ratio] 12.9 % Normal 11.5-15.0 [facility] Comment on above: Order Comment: Speci men Type: BLOOD SPECIMENOrdering Facility: [facility] Address: [address] [place] [address] Performed By: #### 5 7021-8 ####[facility]ATORYCLIA [id number] [address] [place] Hematocrit (Bld) [Volume fraction] 42.7 % Normal 36.0-46.0 [facility] Comment on above: Order Comment: Speci men Type: BLOOD SPECIMENOrdering Facility: [facility] Address: [address] [place] [address] Performed By: #### 5 7021-8 ####[facility] LABORATORYCLIA [id number] [place] [address] [place] Hemoglobin (Bld) [Mass/Vol] 13.7 g/dL Normal 11.5-15.5 [facility] Comment on above: Order Comment: Speci men Type: BLOOD SPECIMENOrdering Facility: [facility] Address: [address] [place] [address] Performed By: #### 5 7021-8 ####[facility] LABORATORYCLIA [id number] [address] [place] Immature granulocytes (Bld) [#/Vol] 0.06 10*3/uL Normal <0.10 [facility] Comment on above: Order Comment: Speci men Type: BLOOD SPECIMENOrdering Facility: [facility] Address: [address] [place] [address] Performed By: #### 5 7021-8 ####[facility] LABORATORYCLIA [id number] [address] [place] Immature granulocytes/100 WBC (Bld) 0.6 % Normal [facility] Comment on above: Order Comment: Speci men Type: BLOOD SPECIMENOrdering Facility: [facility] Address: [address] [place] [address] Performed By: #### 5 7021-8 ####[facility] LABORATORYCLIA [id number] [place] [address] [place] Lymphocytes (Bld) [#/Vol] 1.16 10*3/uL Normal 1.00-4.00 [facility] Comment on above: Order Comment: Speci men Type: BLOOD SPECIMENOrdering Facility: [facility] Address: [address] [place] [address] Performed By: #### 5 7021-8 ####[facility] LABORATORYCLIA [id number] [address] Lymphocytes/100 WBC (Bld) 11.9 % Normal [facility] Comment on above: Order Comment: Speci men Type: BLOOD SPECIMENOrdering Facility: [facility] Address: [address] [place] [address] Performed By: #### 5 7021-8 ####[facility] LABORATORYCLIA [id number] [address] OF [facility] MCH (RBC) [Entitic mass] 29.5 pg Normal 26.0-34.0 [facility] Comment on above: Order Comment: Speci men Type: BLOOD SPECIMENOrdering Facility: [facility] Address: [address] [place] [address] Performed By: #### 5 7021-8 ####[facility] LABORATORYCLIA [id number] [address] MCHC (RBC) [Mass/Vol] 32.1 g/dL Normal 30.5-36.0 [facility] Comment on above: Order Comment: Speci men Type: BLOOD SPECIMENOrdering Facility: [facility] Address: [address] [place] [address] Performed By: #### 5 7021-8 ####[facility]ORATORYCLIA [id number] [address] [place] MCV (RBC) [Entitic vol] 92.0 fL Normal 80.0-100.0 [facility] Comment on above: Order Comment: Speci men Type: BLOOD SPECIMENOrdering Facility: [facility] Address: [address] [place] [address] Performed By: #### 5 7021-8 ####[facility]ORATORYCLIA [id number] [address] OF [place] Monocytes (Bld) [#/Vol] 0.65 10*3/uL Normal <0.87 [facility] Comment on above: Order Comment: Speci men Type: BLOOD SPECIMENOrdering Facility: [facility] Address: [address] [place] [address] Performed By: #### 5 7021-8 ####[facility]ATORYCLIA [id number] [place] [address] [place] Monocytes/100 WBC (Bld) 6.6 % Normal A [facility] Comment on above: Order Comment: Speci men Type: BLOOD SPECIMENOrdering Facility: [facility] Address: [address] [place] [address] Performed By: #### 5 7021-8 ####[facility]ORATORYCLIA [id number] [place] [address] [place] Neutrophils (Bld) [#/Vol] 7.59 10*3/uL High 1.45-7.50 [facility] Comment on above: Order Comment: Speci men Type: BLOOD SPECIMENOrdering Facility: [facility] Address: [address] [place] [address] Performed By: #### 5 7021-8 ####[facility]ORATORYCLIA [id number] [address] [place] Neutrophils/100 WBC (Bld) 77.6 % Normal [facility] Comment on above: Order Comment: Speci men Type: BLOOD SPECIMENOrdering Facility: [facility] Address: [address] [place] [address] Performed By: #### 5 7021-8 ####[facility]ORATORYCLIA [id number] [place] [address] [place] Nucleated RBC (Bld) [#/Vol] 10*3/uL Normal <0.01 [facility] Comment on above: Order Comment: Speci men Type: BLOOD SPECIMENOrdering Facility: [facility] Address: [address] [place] [address] Performed By: #### 5 7021-8 ####[facility]ATORYCLIA [id number] [place] [address] [place] Nucleated RBC/100 WBC (Bld) [Ratio] 0.0 /100 WBC Normal [facility] Comment on above: Order Comment: Speci men Type: BLOOD SPECIMENOrdering Facility: [facility] Address: [address] [place] [address] Performed By: #### 5 7021-8 ####[facility]ATORYCLIA [id number] [place] [address] [place] Platelet mean volume (Bld) [Entitic vol] 10.0 fL Normal 9.0-12.7 [facility] Comment on above: Order Comment: Speci men Type: BLOOD SPECIMENOrdering Facility: [facility] Address: [address] [place] [address] Performed By: #### 5 7021-8 ####[facility]ORATORYCLIA [id number] [place] [address] [place] Platelets (Bld) [#/Vol] 243 10*3/uL Normal 150-400 [facility] Comment on above: Order Comment: Speci men Type: BLOOD SPECIMENOrdering Facility: [facility] Address: [address] [place] [address] Performed By: #### 5 7021-8 ####[facility]ATORYCLIA [id number] [place] [address] [place] RBC (Bld) [#/Vol] 4.64 10*6/uL Normal 3.90-5.20 [facility] Comment on above: Order Comment: Speci men Type: BLOOD SPECIMENOrdering Facility: [facility] Address: [address] [place] [address] Performed By: #### 5 7021-8 ####[facility]ATORYCLIA [id number] [place] [address] [place] WBC (Bld) [#/Vol] 9.78 10*3/uL Normal 3.70-11.00 [facility] Comment on above: Order Comment: Speci men Type: BLOOD SPECIMENOrdering Facility: [facility] Address: [address] [place] [address] Performed By: #### 5 7021-8 ####[facility]ORATORYCLIA [id number] [place] [address] [place] CTA CHEST (NON GATED) W IVCO N PEon 12-12-2024 CTA CHEST (NON GATED) W IVCON PE * * *Final Report* * * DATE OF EXAM: Dec 12 2024 6:25PM [facility] 0564 - CTA CHEST (NON GATED) W IVCON PE / PROCEDURE REASON: Pulmonary embolism (PE) suspected, high prob * * * * Physician Interpretation * * * * EXAMINATION: CHEST CTA (NON GATED) WITH CONTRAST (PULMONARY EMBOLISM PROTOCOL) Clinical History: Suspected pulmonary embolism. Technique: Spiral CT acquisition of the chest from the thoracic inlet to the upper abdomen following IV contrast. Axial 1 and 3 mm thick slices plus coronal and sagittal reformatted images. MQ: CTCP_5 Contrast: 100 mL Omnipaque [address] Radiation dose: Integrated Dose-length product (DLP) for this visit = 218 mGy*cm CT Dose Reduction Employed: Automated exposure control(AEC) and iterative recon CTA: Post-processed images (Maximum intensity Projection (MIP), Volume-rendered (VR), or Surface shaded display images (SSD) were created, reviewed and archived. Comparison: No relevant prior studies available. RESULT: Limitations: None. Evaluation for thromboembolic disease: - Right heart chambers: No thromboembolic disease. - Main pulmonary arteries: No thromboembolic disease. - Lobar pulmonary arteries: No thromboembolic disease. - Segmental pulmonary arteries: No thromboembolic disease. - Subsegmental pulmonary arteries: No thromboembolic disease. - Additional pulmonary artery findings: The main pulmonary artery is normal in caliber. Lines, tubes, and devices: None. Lung parenchyma and airways: No consolidation. No suspicious pulmonary nodule. The central airways are patent. Pleural space: No pleural effusion. No pleural thickening. Lower neck, lymph nodes, and mediastinum: The imaged thyroid gland is normal. No lymphadenopathy in the supraclavicular, axillary, mediastinal, or hilar regions. Heart, pericardium, and thoracic vessels: The thoracic aorta is normal in caliber. The cardiac chambers are normal in size. No coronary artery atherosclerotic calcifications are noted, although the study is not optimized for coronary assessment. No pericardial effusion or thickening. Bones and soft tissues: No destructive bone lesion. Chest wall is unremarkable. Upper abdomen: No abnormality in the imaged upper abdomen except for a 1 cm cyst in the left lobe of the liver. Localizer images: Unremarkable. IMPRESSION: Unremarkable exam with no CT evidence of pulmonary embolism. 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ATORYCLIA [id number] [address] [place] ALP [Catalytic activity/Vol] 139 U/L High 34-123 [facility] Comment on above: Order Comment: Speci men Type: BLOOD SPECIMENOrdering Facility: [facility] Address: [address] [place] [address] Performed By: #### 3 3762-6, 85227-9 ####[facility]ATORYCLIA [id number] [address] [place] ALT With P-5'-P [Catalytic activity/Vol] 21 U/L Normal 7-38 [facility] Comment on above: Order Comment: Speci men Type: BLOOD SPECIMENOrdering Facility: [facility] Address: [address] [place] [address] Performed By: #### 3 3762-6, 18499-4 ####[facility]ORATORYCLIA [id number] [address] [place] Anion gap [Moles/Vol] 10 mmol/L Normal 8-15 [facility] Comment on above: Order Comment: Speci men Type: BLOOD SPECIMENOrdering Facility: [facility] Address: [address] [place] [address] Performed By: #### 3 3762-6, 38175-9 ####[facility]ATORYCLIA [id number] [address] [place] AST With P-5'-P [Catalytic activity/Vol] 21 U/L Normal 13-35 [facility] Comment on above: Order Comment: Speci men Type: BLOOD SPECIMENOrdering Facility: [facility] Address: [address] [place] [address] Performed By: #### 3 3762-6, ####[facility]ATORYCLIA [id number] [address] [place] Bilirubin [Mass/Vol] 0.6 mg/dL Normal 0.2-1.3 [facility] Comment on above: Order Comment: Speci men Type: BLOOD SPECIMENOrdering Facility: [facility] Address: [address] [place] [address] Performed By: #### 3 3762-6, 60637-4 ####[facility]ORYCLIA [id number] [address] [place] Calcium [Mass/Vol] 9.7 mg/dL Normal 8.5-10.2 [facility] Comment on above: Order Comment: Speci men Type: BLOOD SPECIMENOrdering Facility: [facility] Address: [address] [place] [address] Performed By: #### 3 3762-6, ####[facility]ATORYCLIA [id number] [place] [address] [place] Chloride [Moles/Vol] 103 mmol/L Normal 98-107 [facility] Comment on above: Order Comment: Speci men Type: BLOOD SPECIMENOrdering Facility: [facility] Address: [address] [place] [address] Performed By: #### 3 3762-6, 12554-9 ####[facility]ORATORYCLIA [id number] [place] [address] [place] CO2 [Moles/Vol] 24 mmol/L Normal 22-30 [facility] Comment on above: Order Comment: Speci men Type: BLOOD SPECIMENOrdering Facility: [facility] Address: [address] [place] [address] Performed By: #### 3 3762-6, 35296-7 ####[facility]ORATORYCLIA [id number] [address] STATES [place] Creatinine [Mass/Vol] 0.91 mg/dL Normal 0.58-0.96 [facility] Comment on above: Order Comment: Speci men Type: BLOOD SPECIMENOrdering Facility: [facility] Address: [address] [place] [address] Performed By: #### 3 3762-6, 06336-4 ####[facility]ORATORYCLIA [id number] [address] eGFRcr SerPlBld CKD-EPI 2020 73 mL/min/1.73m??? Normal >=60 [facility] Comment on above: Order Comment: Speci men Type: BLOOD SPECIMENOrdering Facility: [facility] Address: [address] [place] [address] Result Comment: Cassandra mated Glomerular Filtration Rate (eGFR) is calculated using the 2020 CKD-EPI creatinine equation. This equation utilizes serum creatinine, sex, and age as parameters. The creatinine assay has traceable calibration to isotope dilution-mass spectrometry. Refer to KDIGO guidelines for clinical interpretation. In patients with unstable renal function, e.g. those with acute kidney injury, the eGFR may not accurately reflect actual GFR. Performed By: #### 3 3762-6, 15337-0 ####[facility]ORATORYCLIA [id number] [address] STATES OF [facility] Glucose [Mass/Vol] 85 mg/dL Normal 74-99 [facility] Comment on above: Order Comment: Speci men Type: BLOOD SPECIMENOrdering Facility: [facility] Address: [address] [place] [address] Result Comment: The [place] Diabetes [employer] (ADA) provides guidance for cutoff values for fasting glucose and random glucose. The ADA defines fasting as no caloric intake for at least 8 hours. Fasting plasma glucose results between 100 to 125 mg/dL indicate increased risk for diabetes (prediabetes). Fasting plasma glucose results greater than or equal to 126 mg/dL meet the criteria for diagnosis of diabetes. In the absence of unequivocal hyperglycemia, results should be confirmed by repeat testing. In a patient with classic symptoms of hyperglycemia or hyperglycemic crisis, random plasma glucose results greater than or equal to 200 mg/dL meet the criteria for diagnosis of diabetes. Reference: Standards of Medical Care in Diabetes 2016, [place] [employer] Association. Diabetes Care. 2016.39(Suppl 1). Performed By: #### 3 3762-6, 57093-8 ####[facility]ATORYCLIA [id number] [place] [address] [place] Potassium [Moles/Vol] 3.9 mmol/L Normal 3.7-5.1 [facility] Comment on above: Order Comment: Maureeni reji Type: BLOOD SPECIMENOrdering Facility: [facility] Address: [address] [place] [address] Performed By: #### 3 3762-6, 48167-1 ####[facility]ATORYCLIA [id number] [place] [address] [place] Protein [Mass/Vol] 7.2 g/dL Normal 6.3-8.0 [facility] Comment on above: Order Comment: Vikas mendoza Type: BLOOD SPECIMENOrdering Facility: [facility] Address: [address] [place] [address] Performed By: #### 3 3762-6, 41553-7 ####[facility]ATORYCLIA [id number] [place] [address] [place] Sodium [Moles/Vol] 137 mmol/L Normal 136-144 [facility] Comment on above: Order Comment: Maureeni men Type: BLOOD SPECIMENOrdering Facility: [facility] Address: [address] [place] [address] Performed By: #### 3 3762-6, 49668-4 ####[facility]ATORYCLIA [id number] [address] OF [place] Urea nitrogen [Mass/Vol] 14 mg/dL Normal 7-21 [facility] Comment on above: Order Comment: Speci men Type: BLOOD SPECIMENOrdering Facility: [facility] Address: [facility] [place] [address] Performed By: #### 3 3762-6, 54861-7 ####[facility]ATORYCLIA [id number] [address] OF [place] ECG COMPLETEon 12-12-2024 ECG COMPLETE Ventricular Rate : 107 BPM Atrial Rate : 107 BPM P-R Interval : 134 ms QRS Duration : 76 ms Q-T Interval : 316 ms QTC Calculation(Bazett) : 421 ms Calculated P Almo : 49 degrees Calculated R Almo : 7 degrees Calculated T Almo : 67 degrees SINUS TACHYCARDIA POSSIBLE LEFT ATRIAL ENLARGEMENT BORDERLINE ECG NO PREVIOUS ECGS AVAILABLE Confirmed by LETICIA SEO MD ([id number]) on 12/12/2024 5:02:19 PM NAME : KAROLINA AHN PID : [id number] : 1965 Gender : Female Race : ORD : [id number] Procedure Date : Dec 12 2024 15:27:30 Edit Date : Dec 12 2024 17:02:23 Diagnosis: SINUS TACHYCARDIA POSSIBLE LEFT ATRIAL ENLARGEMENT BORDERLINE ECG NO PREVIOUS ECGS AVAILABLE Confirmed by LETICIA SEO MD ([id number]) on 12/12/2024 5:02:19 PM Test Reason : Chest Pain Location : 4 : AKED Overread By : LETICIA SEO MD Edited By : LETICIA SEO MD Referred By : , Acquired by : EDYTA KING [facility] ED NOTEon 12-12-2024 ED NOTE HNO ID: [id number] Author: EDYTA KING, Daphne Service: Emergency Medicine Author Type: Chief Nursing Officer and Hide Dyer Type: ED Notes Filed: 12/12/2024 20:00 Note Text: Pt reporting 10/10 left foot pain, reports feeling like her foot is freezing and she is unable to warm it up. Strong, distal pedal pulse palpated by Estephanie RN, good cap refill. Vitals updated at this time. Normal [facility] ED Triage Noteon 12-12-2024 ED Triage Note HNO ID: [id number] Author: RIN MENDOZA APRN.LISANDRO Service: Emergency Medicine Author Type: Nurse Practitioner Type: ED Triage Notes Filed: 12/12/2024 15:20 Note Text: ED TRIAGE PROVIDER NOTE Patient Name: Karolina Ahn Service Date: 12/12/24 BRIEF HPI: This is a 59 year old female who presents to the ED with: Complaints of pain in her left leg. She was seen at [place] ED yesterday and diagnosed with extensive DVT and started on anticoagulants. Upon being discharged in the hospital she developed some shortness of breath yesterday evening. She also notes some slight fatigue but may not exertion. No chest pain. BRIEF EXAM: NAD Awake and Alert Non labored breathing INITIAL WORKUP AND DECISION MAKING: Orders Placed This Encounter CTA CHEST (NONGATED) W IVCON PE CBC + DIFF COMP METABOLIC PANEL NT PRO BNP High Sensitivity Troponin T with Reflex for ED Chest Pain iv contrast (radiology procedure) ECG COMPLETE SIGNATURE: Rin Mendoza APRN.ANESTHESIOLOGY CRNA Normal [facility] HIGH SENSITIVITY TROPONIN T (INITIAL)on 12-12-2024 Troponin T.cardiac High sensitivity method [Mass/Vol] 33 ng/L High <12 [facility] Comment on above: Order Comment: Speci men Type: BLOOD SPECIMENOrdering Facility: [facility] Address: [address] [place] [address] Performed By: #### L [id number] ####[facility]ATORYCLIA [id number] [address] [place] HIGH SENSITIVITY TROPONIN T (SECOND)on 12-12-2024 Troponin T.cardiac High sensitivity method [Mass/Vol] 35 ng/L High <12 [facility] Comment on above: Order Comment: Speci men Type: BLOOD SPECIMENOrdering Facility: [facility] Address: [address] [place] [address] Performed By: #### L [id number] ####[facility]ATORYCLIA [id number] [address] [place] HIGH SENSITIVITY TROPONIN T (THIRD) 3 HRS AFTER INITIALon 12-12-2024 Troponin T.cardiac High sensitivity method [Mass/Vol] 38 ng/L High <12 [facility] Comment on above: Order Comment: Speci men Type: BLOOD SPECIMENOrdering Facility: [facility] Address: [address] [place] [address] Performed By: #### L [id number] ####[facility]ORATORYCLIA [id number] [place] [id number] [facility] NT-proBNP SerPl-ncon 12-12 Natriuretic peptide.B prohormone N-Terminal [Mass/Vol] <36 Normal <125 [facility] Comment on above: Order Comment: Speci men Type: BLOOD SPECIMENOrdering Facility: [facility] Address: [address] [place] [address] Performed By: #### 3 3762-6, 79344-6 ####[facility]ATORYCLIA [id number] [address] OF [facility] Absolute lymphocyte countOrd ered By: Robert Ledesma on 12-11-2024 Lymphocytes Auto (Unsp spec) [#/Vol] 1.65 10*3/uL 0.83-4.51 [facility] Absolute neutrophil countOrd ered By: Robert Ledesma on 12-11-2024 Neutrophils (Bld) [#/Vol] 2.8 10*3/uL 2.0-7.7 [facility] Activated partial thrombopla stin time (aPTT) in platelet poor plasma by coagulation aOrdered By: Robert Ledesma on 12-11-2024 aPTT Coag (PPP) [Time] 25.8 s 24.1-36.2 [facility] Anion gap in Serum or Plasma Ordered By: Robert Ledesma on 12-11-2024 Anion gap [Moles/Vol] 12 mmol/L - [facility] Automated lymphocyte count a s percentage of total leukocytesOrdered By: Robert Ledesma on 12-11-2024 Lymphocytes/100 WBC Auto (Unsp spec) 30.7 % - [facility] BUN/creatinine ratioOrdered By: Robert Ledesma on 12-11-2024 Urea nitrogen/Creatinine [Mass ratio] 21.0 mg/mg High 10- [facility] Basic Metabolic Profile (BMP )on 12-11-2024 BUN/CRE 21.0 RATIO High 10-20 [facility] Comment on above: Performed By: #### L 300.3900, L300.4310, L503.6005, L100.0100, L500.2500 ####[facility] [address] [place], [address] Calcium [Mass/Vol] 9.7 mg/dL Normal 7.6-11.0 [facility] Comment on above: Performed By: #### L 300.3900, L300.4310, L503.6005, L100.0100, L500.2500 ####[facility] [address] [place], [address] Chloride [Moles/Vol] 104 mmol/L Normal 98-108 [facility] Comment on above: Performed By: #### L 300.3900, L300.4310, L503.6005, L100.0100, L500.2500 ####[facility] [address] [place], [address] CO2 [Moles/Vol] 23.0 mmol/L Normal 21.0-32.0 [facility] Comment on above: Performed By: #### L 300.3900, L300.4310, L503.6005, L100.0100, L500.2500 ####[facility] [address] [place], [address] Creatinine [Mass/Vol] 0.91 mg/dL Normal 0.70-1.20 [facility] Comment on above: Performed By: #### L 300.3900, L300.4310, L503.6005, L100.0100, L500.2500 ####[facility] [address] [place], [address] ECRCL 59.90 ml/min Normal 50-250 [facility] Comment on above: Performed By: #### L 300.3900, L300.4310, L503.6005, L100.0100, L500.2500 ####[facility] [address] [place], [address] GAP 12 Normal 5-15 [facility] Comment on above: Performed By: #### L 300.3900, L300.4310, L503.6005, L100.0100, L500.2500 ####[facility] [address] [place], [address] GFR/1.73 sq M.predicted among non-blacks MDRD (S/P/Bld) [Vol rate/Area] 73 mL/min/{1.73_m2} Normal >60 [facility] Comment on above: Result Comment: mL/m in/1.73m2 CKD-EPI Creatinine Equation (2020) Performed By: #### L 300.3900, L300.4310, L503.6005, L100.0100, L500.2500 ####[facility] [address] [place], [address] Glucose [Mass/Vol] 94 mg/dL Normal 70-99 [facility] Comment on above: Performed By: #### L 300.3900, L300.4310, L503.6005, L100.0100, L500.2500 ####[facility] [address] [place], [address] Potassium [Moles/Vol] 4.1 mmol/L Normal 3.3-5.1 [facility] Comment on above: Performed By: #### L 300.3900, L300.4310, L503.6005, L100.0100, L500.2500 ####[facility] [address] [place], [address] Sodium [Moles/Vol] 139 mmol/L Normal 133-145 [facility] Comment on above: Performed By: #### L 300.3900, L300.4310, L503.6005, L100.0100, L500.2500 ####[facility] [address] [place], [address] Urea nitrogen [Mass/Vol] 19 mg/dL Normal 4-19 [facility] Comment on above: Performed By: #### L 300.3900, L300.4310, L503.6005, L100.0100, L500.2500 ####[facility] [address] [place], [address] Basophil percentageOrdered B y: Robert Ledesma on 12-11-2024 Basophils/100 WBC (Bld) 0.7 % 0-1 [facility] CBC W/Diff, Automatedon 11-27-2024 Absolute Lymph 1.65 X10 3/uL Normal 0.83-4.51 [facility] Comment on above: Performed By: #### L 300.3900, L300.4310, L503.6005, L100.0100, L500.2500 ####[facility] [address] [place], [address] Absolute Neut 2.8 X10 3/uL Normal 2.0-7.7 [facility] Comment on above: Performed By: #### L 300.3900, L300.4310, L503.6005, L100.0100, L500.2500 ####[facility] [address] [place], [address] Basophils/100 WBC (Bld) 0.7 % Normal 0-1 [facility] Comment on above: Performed By: #### L 300.3900, L300.4310, L503.6005, L100.0100, L500.2500 ####[facility] [address] [place], [address] Eosinophils/100 WBC (Bld) 7.8 % High 0-5 [facility] Comment on above: Performed By: #### L 300.3900, L300.4310, L503.6005, L100.0100, L500.2500 ####[facility] [address] [place], [address] Erythrocyte distribution width (RBC) [Ratio] 12.8 % Normal 11.6-14.6 [facility] Comment on above: Performed By: #### L 300.3900, L300.4310, L503.6005, L100.0100, L500.2500 ####[facility] [address] [place], [address] Hematocrit (Bld) [Volume fraction] 43.8 % Normal 37-47 [facility] Comment on above: Performed By: #### L 300.3900, L300.4310, L503.6005, L100.0100, L500.2500 ####[facility] [address] [place], [address] Hemoglobin (Bld) [Mass/Vol] 14.5 g/dL Normal 12.0-15.0 [facility] Comment on above: Performed By: #### L 300.3900, L300.4310, L503.6005, L100.0100, L500.2500 ####[facility] [address] [place], [address] IG% 0.600 Normal 0.0-0.9 [facility] Comment on above: Result Comment: IG% - Immature Granulocytes (promyelocytes, myelocytes and metamyelocytes) > 1% indicates that a LEFT SHIFT is Present. Performed By: #### L 300.3900, L300.4310, L503.6005, L100.0100, L500.2500 ####[facility] [address] [place], [address] Lymphocytes/100 WBC (Bld) 30.7 % Normal 19-41 [facility] Comment on above: Performed By: #### L 300.3900, L300.4310, L503.6005, L100.0100, L500.2500 ####[facility] [address] [place], [address] MCH (RBC) [Entitic mass] 29.8 pg Normal 27.0-32.0 [facility] Comment on above: Performed By: #### L 300.3900, L300.4310, L503.6005, L100.0100, L500.2500 ####[facility] [address] [place], [address] MCHC (RBC) [Mass/Vol] 33.1 g/dL Normal 32-36 [facility] Comment on above: Performed By: #### L 300.3900, L300.4310, L503.6005, L100.0100, L500.2500 ####[facility] [address] [place], [address] MCV (RBC) [Entitic vol] 89.9 fL Normal 81-99 [facility] Comment on above: Performed By: #### L 300.3900, L300.4310, L503.6005, L100.0100, L500.2500 ####[facility] [address] [place], [address] Monocytes/100 WBC (Bld) 7.8 % Normal 0-10 [facility] Comment on above: Performed By: #### L 300.3900, L300.4310, L503.6005, L100.0100, L500.2500 ####[facility] [address] [place], [address] Neutrophils/100 WBC (Bld) 52.4 % Normal 47-70 [facility] Comment on above: Performed By: #### L 300.3900, L300.4310, L503.6005, L100.0100, L500.2500 ####[facility] [address] [place], [address] Nucleated RBC (Bld) [#/Vol] 0 10*3/uL Normal 0-5 [facility] Comment on above: Performed By: #### L 300.3900, L300.4310, L503.6005, L100.0100, L500.2500 ####[facility] [address] [place], [address] Platelet mean volume (Bld) [Entitic vol] 10.1 fL Normal 6.2-12.0 [facility] Comment on above: Performed By: #### L 300.3900, L300.4310, L503.6005, L100.0100, L500.2500 ####[facility] [address] [place], [address] Platelets (Bld) [#/Vol] 255 10*3/uL Normal 150-450 [facility] Comment on above: Performed By: #### L 300.3900, L300.4310, L503.6005, L100.0100, L500.2500 ####[facility] [address] [place], [address] RBC (Bld) [#/Vol] 4.87 10*6/uL Normal 4.2-5.4 [facility] Comment on above: Performed By: #### L 300.3900, L300.4310, L503.6005, L100.0100, L500.2500 ####[facility] [address] [place], [address] RDW SD 42.1 fl Normal 35.1-43.9 [facility] Comment on above: Performed By: #### L 300.3900, L300.4310, L503.6005, L100.0100, L500.2500 ####[facility] [address] [place], [address] WBC (Bld) [#/Vol] 5.4 10*3/uL Normal 4.4-11.0 [facility] Comment on above: Performed By: #### L 300.3900, L300.4310, L503.6005, L100.0100, L500.2500 ####[facility] [address] [place], [address] CTA Abd w/Runoff W/WO Contra ston 12-11-2024 CTA Abd w/Runoff W/WO Contrast [facility] [address] [place] [address] CTA Abd w/Runoff W/WO Contrast MR#: [id number] Acct: [id number] Name: KAROLINA AHN Rep #: [id number] : 1965 F 59 From: Sony sawyer MD PCP: Dr. Jimbo Dash MD Status: REG ER Study: CTA Abd w/Runoff W/WO Contrast Date of Exam: 0 12/11/24 Exam# [id number] Ordering Dr: Robert Ledesma DO PROCEDURE: CTA ABD W/RUNOFF W/WO CONTRAST 12/11/2024 REASON FOR EXAM: ? LEFT ARTERIAL OCCLUSION TECHNIQUE: CTA ABD W/RUNOFF W/WO CONTRAST Multiplanar Sagittal and Coronal images were obtained. 3D and or MIPS post processing was performed One or more dose reduction techniques were used (e.g., Automated exposure control, adjustment of the mA and/or kV according to patient size, use of iterative reconstruction technique). CONTRAST: Isovue 370 VOLUME: 100 mL RADIATION DOSE SUMMARY: CTDlvol: 8.8 mGy DLP: 1034.97 mGycm COMPARISON: None FINDINGS: Aorta: Abdominal aorta is normal in size. No significant atherosclerotic plaque. No evidence of aneurysm or dissection. Iliac Arteries: Iliac arteries are normal in size with no significant plaque or stenosis. Celiac: Normal. SMA: Normal. LIYA : Normal. Right Renal: Mild mixed calcified and soft plaque identified. Left Renal: Normal. Lower Extremity Runoff (Bilateral): Common Femoral Arteries: Unremarkable Superficial Femoral Arteries: Unremarkable Profunda Femoris Arteries: Unremarkable Popliteal Arteries: The right popliteal artery is patent. Poor visualization of the left popliteal artery. Tibial and Peroneal Arteries: Right tibial and peroneal arteries are patent. Nonvisualization of the left tibioperoneal trunk as well as the anterior and posterior tibial arteries. Distal Runoff: Three-vessel runoff in the right leg. No visualization of distal runoff in the left leg. Extravascular Findings: Diffuse fatty infiltration of the liver. Venous stents seen in both right and left common iliac veins. CT/CTA Abd w/Runoff W/WO Contrast IMPRESSION: Poor runoff in the left lower extremity distal to the popliteal artery. Reading Location: [place] [address] CC: Dr. 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 Jimbo Dash MD Status:DEP ER Location: ED ADDENDUM by Dr. Deep Lion MD on 12/11/24 at 1625 Outpatient pharmacy did not have the long-acting oxycodone. The prescription was canceled and a prescription was called into [facility] [place]. 12/11/24 1625 Cosigner Signature (if applicable): cc: Dr. Jimbo Dash MD * Signed HPI History of Present Illness Chief Complaint: Lower Extremity Injury Detail of Chief Complaint: Lower extremity pain and swelling Informant: patient Onset/Context/Timing Onset: Today (Today) Context: Sudden Onset Timing: Continuous Quality: Pain, 6 out of 10 Location: Entire left lower extremity Current Severity: Moderate Maximum Severity: Moderate Worsened by: Walking Relieved by: Nothing Associated Symptoms Associated Symptoms: Patient states she did not feel well yesterday. She had dyspnea on exertio Narrative Narrative: Patient with history of recurrent DVT. She had an extensive clot in her right lower extremity. She told Dr. Ledesma who saw her prior to my arrival that she had a recent stent on the left side. He informed her that her toes looked dusky and she had discoloration of her leg. She complained of abrupt pain. Patient yesterday states she did not feel her normal self. She had dyspnea with activity which is not normal. She denied pleuritic chest pain. Patient denies history of peripheral arterial disease. Patient presently denies shortness of breath. She denies chest pain. She denies headache, visual, ocular auditory symptoms. She denies abdominal pain, nausea, vomiting or diarrhea. She denies black or maroon stool. Patient states she was converted from Eliquis to Plavix. This occurred 1 to 2 months ago. This was in discussion with Dr. Goldberg and risk benefits were explained to her. Prior similar symptoms: Yes (Right side and history of clot left iliac vein.) Recent Illness[facility]ati [facility]: [facility] Medical History GERD (gastroesophageal reflux disease) Loss [...] muscle spasticity 12/10/23 Unknown Rx #14 tabs clopidogrel 75 mg tablet (Plavix) 75 mg PO DAILY #90 tabs 10/27/24 Unknown Rx apixaban 5 mg (74 tabs) tablets in See Rx Instructions .Route 12/11 Unknown Rx a dose pack ([facility]liquPh[facility] ([facility]) DVT-PE Treat .COMPLEX #74 tabs 30D Start) oxycodone 10 mg tablet,crush 10 mg PO Q12H 3 days #6 tabs 12/11 Unknown Rx resistant,extended release 12 hr oxycodone-acetaminoph en 5 mg-325 1 tab PO Q6H PRN PRN pain 5 days 0 12/11/24 Unknown Rx mg tablet #20 TABLETS Allergy/AdvReac Type Severity Reaction Status Date / Time hydrocodone (From Vicodin) Allergy Nausea/Vom/ Verified 12/11/24 06:53 Diarrhea Family History Mother Colon cancer Cancer [...] ROS ROS ED Constitutional Constitutional ED: Denies chills or fever(s) C (more content not included)... Normal [facility] Eosinophil percentageOrdered By: Robert Ledesma on 12-11-2024 Eosinophils/100 WBC (Bld) 7.8 % High 0-5 [facility] Erythrocyte distribution wid th ratioOrdered By: Robert Ledesma on 12-11-2024 Erythrocyte distribution width (RBC) [Ratio] 12.8 % 11.6-14.6 [facility] Erythrocyte distribution wid th standard deviationOrdered By: Robert Ledesma on 12-11-2024 Erythrocyte distribution width (RBC) [Ratio] 42.1 fl 35.1-43.9 [facility] Glomerular filtration rate ( GFR) estimation/1.73 sq m using serum, plasma, or whole bOrdered By: Robert Ledesma on 12-11-2024 GFR/1.73 sq M.predicted among non-blacks MDRD (S/P/Bld) [Vol rate/Area] 73 mL/min/{1.73_m2} >60 [facility] Comment on above: mL/min/1.73m2 CKD-EP I Creatinine Equation (2020) Hematocrit Auto (Bld) [Volum e fraction]Ordered By: Robert Ledesma on 12-11-2024 Hematocrit (Bld) [Volume fraction] 43.8 % 37-47 [facility] Hemoglobin measurementOrdere d By: Robert Ledesma on 12-11-2024 Hemoglobin (Bld) [Mass/Vol] 14.5 g/dL 12.0-15.0 [facility] Immature granulocytes/100 WB C Auto (Bld)Ordered By: Robert Ledesma on 12-11-2024 Immature granulocytes/100 WBC (Bld) 0.600 % 0.0-0.9 [facility] Comment on above: IG% - Immature Granu locytes (promyelocytes, myelocytes and metamyelocytes) > 1% indicates that a LEFT SHIFT is Present. International normalized rat io (INR) calculationOrdered By: Robert Ledesma on 12-11-2024 INR Coag (Bld) [Relative time] 1.0 {INR} [facility] Lactic Acidon 12-11-2024 Lactate [Moles/Vol] mmol/L Normal 0.0-2.0 [facility] Comment on above: Order Comment: Y Performed By: #### L 300.3900, L300.4310, L503.6005, L100.0100, L500.2500 ####[facility] [address] [place], [place], [id number] Lactic acid measurementOrder ed By: Robert Ledesma on 12-11-2024 Lactate [Moles/Vol] mmol/L 0.0-2.0 [facility] MCV (mean corpuscular volume ) determinationOrdered By: Robert Ledesma on 12-11-2024 MCV (RBC) [Entitic vol] 89.9 fL 81-99 [facility] Mean corpuscular hemoglobin (MCH) determinationOrdered By: Robert Ledesma on 12-11-2024 MCH (RBC) [Entitic mass] 29.8 pg 27.0-32.0 [facility] Mean corpuscular hemoglobin concentration (MCHC) determinationOrdered By: Robert Ledesma on 12-11-2024 MCHC (RBC) [Mass/Vol] 33.1 g/dL 32-36 [facility] Mean platelet volume determi nationOrdered By: Robert Ledesma on 12-11-2024 Platelet mean volume (Bld) [Entitic vol] 10.1 fL 6.2-12.0 [facility] Monocyte percentageOrdered B y: Robert Ledesma on 12-11-2024 Monocytes/100 WBC (Bld) 7.8 % 0-10 [facility] Neutrophil percentageOrdered By: Robert Ledesma on 12-11-2024 Neutrophils/100 WBC (Bld) 52.4 % 47-70 [facility] Nucleated red blood cell per centageOrdered By: Robert Ledesma on 12-11-2024 Nucleated RBC/100 WBC (Bld) [Ratio] 0 % 0-5 [facility] Partial Thromboplast Timeon 12-11-2024 aPTT Coag (Bld) [Time] 25.8 s Normal 24.1-36.2 [facility] Comment on above: Performed By: #### L 300.3900, L300.4310, L503.6005, L100.0100, L500.2500 ####[facility] [address] [place], [place], [id number] Platelet countOrdered By: Loly Ledesma on 12-11-2024 Platelets (Bld) [#/Vol] 255 10*3/uL 150-450 [facility] Potassium measurement (mass/ volume)Ordered By: Robert Ledesma on 12-11-2024 Potassium (Unsp spec) [Mass/Vol] 4.1 mmol/L 3.3-5.1 [facility] Prothrombin Time w/INRon INR Coag (PPP) [Relative time] 1.0 {INR} Normal [facility] Comment on above: Performed By: #### L 300.3900, L300.4310, L503.6005, L100.0100, L500.2500 ####[facility] [address] [place], [place], [phone] PT Coag (PPP) [Time] 13.5 s Normal 11.7-14.9 [facility] Comment on above: Performed By: #### L 300.3900, L300.4310, L503.6005, L100.0100, L500.2500 ####[facility] [address] [place], [place], [id number] Prothrombin timeOrdered By: Robert Ledesma on 12-11-2024 PT Coag (PPP) [Time] 13.5 s 11.7-14.9 [facility] RBC Auto (Bld) [#/Vol]Ordere d By: Robert Ledesma on 12-11-2024 RBC (Bld) [#/Vol] 4.87 10*6/uL 4.2-5.4 [facility] Serum creatinine measurement (mass/volume)Ordered By: Robert Ledesma on 12-11-2024 Creatinine [Mass/Vol] 0.91 mg/dL 0.70-1.20 [facility] Serum glucose measurement (m ass/volume)Ordered By: Robert Ledesma on 12-11-2024 Glucose [Mass/Vol] 94 mg/dL 70-99 [facility] Serum or plasma calcium cooper urement (mass/volume)Ordered By: Robert Ledesma on 12-11-2024 Calcium [Mass/Vol] 9.7 mg/dL 7.6-11.0 [facility] Serum or plasma urea nitroge n measurement (mass/volume)Ordered By: Robert Ledesma on 12-11-2024 Urea nitrogen [Mass/Vol] 19 mg/dL 4-19 [facility] Sodium levelOrdered By: Sam Ledesma on 12-11-2024 Sodium [Moles/Vol] 139 mmol/L 133-145 [facility] Venous Duplex US, Unilateral on 12-11-2024 Venous Duplex US, Unilateral [facility] [address] [place] [address] Venous Duplex US, Unilateral 12/11/24 0810 MR#: [id number] Acct: [id number] Name: KAROLINA AHN Rep #: [id number] : 1965 59 From: Jose Blue MD Attending Dr: Status: DEP ER Ordering Dr: Deep Lion MD Date: 12/11/24 Location: ED Sex: F C Admitted: Reason For Study Reason For Study: Left leg swelling Procedure LEFT This is a venous duplex using B-mode, color flow and GSV is normal. spectral Doppler. Acute deep vein thrombosis is noted in the CFV. It is Exam performed portable in ED. dilated and NONCOMPRESSIBLE. A preliminary report was called and/or faxed to Dr. STEPHANIE mulligan, no venous flow noted. Consistent with Acute Lion. Deep Vein Thrombosis. Acute deep vein thrombosis is noted in the EIV, CFV, FV, PopV, T/P Trunk, PTV, PeroV, Gastroc V, Soleus V. It is dilated and NONCOMPRESSIBLE. Normal venous flow noted in the distal IVC. VL/Venous Duplex US, Unilateral Interpretation Summary Acute deep vein thrombosis is noted within a stented left common iliac vein. Acute deep vein thrombosis in noted in the left external iliac vein. Acute deep vein thrombosis is noted in the left common femoral vein. Acute deep vein thrombosis is noted in the left femoral vein. Acute deep vein thrombosis is noted in the left popliteal vein. Acute deep vein thrombosis is noted in the left tibio-peroneal trunk. Acute deep vein thrombosis is noted in the left posterior tibial vein. Acute deep vein thrombosis is noted in the left peroneal vein. Acute deep vein thrombosis is noted in the left gastrocnemius vein. Acute deep vein thrombosis is noted in the left soleus vein. Normal venous flow is noted in the distal inferior vena cava. Ordering Physician: Deep Lion Referring Physician: Jimbo Dash Performed By: Kacey Jenkins RVT 12/11/242120 Date Jose Blue MD CC: Dr. Jimbo Dash MD; Dr. 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 Normal [facility] White blood cell (WBC) count Ordered By: Robert Ledesma on 12-11-2024 WBC (Bld) [#/Vol] 5.4 10*3/uL 4.4-11.0 [facility] CNOVon 12-08-2024 CNOV Office Visit (WOUCA) KAROLINA AHN ([id number]) 1965 F Date Time Provider Department 12/08/24 2:15 PM MARGUERITE DAILY During your visit today, we recorded the following information about you: Temperature Pulse Respiration Blood pressure 98 degrees 73/minute 18/minute 118/72 Weight 64.2 kg Marguerite Daily APRN.ANESTHESIOLOGY CRNA 12/08/2024 3:46 PM Addendum [facility] Subjective HPI HPI Karolina Ahn is a [...] tension free vaginal sling, cystoscopy (Dr. Luis, [facility]) VAGINAL HYSTERECTOMY 04/06/2014 LAVH, BSO, anterior and posterior repair (Dr. Muniz, [facility]) ALLERGIES Hydrocodone-Acetamino phen, Aspirin, and Oxycodone MEDICATIONS Surgical Lubricant Jelly [...] diagnosis) Post op shoe provided F/u with able bodied seaman in 10 days if s/s persist. Prophylactic atb ordered F/u for s/s infection. 2. Injury of toe on left foot, initial encounter - ICD9: 959.7, ICD10: S99.922A - XR TOE AP/LAT/OBL LEFT IMPRESSION: Probable intra-articular fracture of the base of the distal phalanx of the second digit Dictated by : DO Marguerite SAWYER APRN.ANESTHESIOLOGY CRNA History and Record Review External record(s) reviewed: [...] As of Date: 12/08/2024 Noted Allergy Reaction HYDROCODONE-ACETAMINO PHEN 10/29/2016 (more content not included)... Normal [facility] XR TOE 3V AP/LAT/OBL LTon XR TOE [...] the distal phalanx of the second digit Carpet Installer Helper: GREGORY Transcribe Date/Time: Dec 08 2024 2:37P Dictated by : JOSEPH WATKINS DO This examination was interpreted and the report reviewed and electronically signed by: JOSEPH WATKINS DO on Dec 08 2024 2:40PM EST [id number] Normal [facility] XR Toes - left 3 Viewson IMPRESSION: Probable intra-articular fracture of the base of the distal phalanx of the second digit Carpet Installer Helper: GREGORY Transcribe Date/Time: Dec 08 2024 2:37P Dictated by : JOSEPH WATKINS DO This examination was interpreted and the report reviewed and electronically signed by: JOSEPH WATKINS DO on Dec 08 2024 2:40PM [facility] DIVISION OF RADIOLOGY * * *Final Report* [...] visualized interphalangeal joints DIVISION [facility] RADIOLOGY [facility] * * *Final Report* * [...] the distal phalanx of the second digit Carpet Installer Helper: GREGORY Transcribe Date/Time: Dec 08 2024 2:37P Dictated by : JOSEPH WATKINS DO This examination was interpreted and the report reviewed and electronically signed by: JOSEPH WATKINS DO on Dec 08 2024 2:40PM [facility] Radiology Study observation (narrative) [facility]ia [facility] XR Toes - left 3 ViewsOrdere d By: Ccf Provider on 12-08-2024 [facility] CNPLayla 11-23-2024 CNPN Telephone (UROLAG) KAROLINA AHN ([id number]) 1965 F Date Time Provider Department 11/23/24 [...] SANTILLAN on: 12/04/2024 06:37 PM Modules accepted: Ignacia Downing 12/10/2024 1:58 PM Signed Scheduled patient for 12-29-24 at 10:45a.m. in [place]. Lucía Dueñas December 10, 2024 1:51 PM Allergies As of Date: 11/23/2024 Noted Allergy Reaction HYDROCODONE-ACETAMINO PHEN 10/29/2016 11 - Vomiting ASPIRIN 02/27/2006 Comments: tired and weak and made her feel weird can take Ibuprofen OXYCODONE 02/08/2022 9 - Itching Date Reviewed: 10/23/2024 Reviewed by: Alejandra Flannery MA - Fully Assessed Reason for Visit: Orders [681] Primary Visit Diagnosis:Infection in abdomen (HCC) [K65.9] Order(s):MRI FEMALE PELVIS WO/W IVCON [[id number]] Order #: [id number] FUTURE [] iv contrast (will be provided with radiology [...] toleranace).Disp: 5 gRfl: 0 Prescriptions as of 12/10/2024 - cephALEXin (KEFLEX) 500 mg capsule Take 1 capsule by mouth two times a day for 4 days. 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 Normal [facility] CNOVon 10-23-2024 CNOV Office Visit (UROLAE ) KAROLINA AHN ([id number]) 1965 F Date Time Provider Department 10/23/24 9:45 AM FÁTIMA SANTILLAN During your visit today, we recorded the following information about you: Fátima Santillan MD 11/24/2024 11:[address] [facility] NEW PATIENT CONSULT/HISTORY [...] stone. Pelvic CT without contrast showed no lymphadenopathy/bilat eral iliac stents. Recommend pelvic MRI with IV [...] 09/24/2024. Other /urogyn providers: April Nicole MD [employer]: STERLING Dunn The patient was seen by STERLING Dunn of DISPUTE COORDINATOR for 2-month history of dysuria and pelvic [...] by my nurse/MA at today's visit. Today's ujquh-xw-wlap urine testing trace, intact blood, negative nitrite, [...] Medications None reported Previous HRT-blood clots Past DISPUTE COORDINATOR History: G 6 P 6 Vaginal deliveries: 6 section: 0 History of third or fourth degree laceration: Yes Weight of largest baby: 9 pounds 7 ounces Hysterectomy: Yes/2013/48 years old (LAVH/BSO/AP repair) Diagnosis: Bleeding prolapse Ovaries removed: Yes Menopause : yes, surgical at 48 HRT :no; HRT associated with blood clots Menstrual history: Menarche 12yo Sexual functio (more content not included)... Normal [facility] CNOV Office Visit (UROLAE ) KAROLINA AHN ([id number]) 1965 F Date Time Provider Department 10/23/24 9:30 AM FÁTIMA SANTILLAN UROSUGAR During your visit today, we recorded the [...] patient: Yes Procedure confirmed with physician and senior administrator support: Yes UNIVERSAL PROTOCOL / SAFETY CHECKLIST Procedure [...] and increase oral fluid intake as directed. Reserves Clerk offered:Patient accepts, visit chaperoned by Alejandra Flannery [...] breast ca (more content not included)... Normal [facility] UA DIP, URINE (POC)on 2024 BILIRUBIN UA (POCT) Negative Negative [facility] CLARITY UA (POCT) Clear [facility] COLOR UA (POCT) Yellow [facility] GLUCOSE UA (POCT) Negative Negative mg/dL [facility] Hemoglobin Ql (U) Trace-intact Abnormal Negative [facility] Interpretation and review of laboratory results Abnormal [facility] KETONE UA (POCT) Negative Negative mg/dL [facility] LEUKOCYTES UA (POCT) Small Abnormal Negative [facility] NITRITE UA (POCT) Negative Negative [facility] PH UA (POCT) 7 4.5 - 8.0 [facility] Protein Ql (U) Negative Negative mg/dL [facility] SPECIFIC GRAVITY UA (POCT) 1.02 1.005 - 1.030 [facility] UROBILINOGEN UA (POCT) 0.2 Elizabet l E.U./dL [facility] Location:[facility] [place] [facility], [address] [place] [address], [id number] [place] [address] POINT OF CARE [facility] 10-15-2024 JUAN Telephone (UROSUGAR) KAROLINA AHN ([id number]) 1965 F Date Time Provider Department 10/15/24 ELIDA ANGELO During your visit today, we recorded the following information about you: Elida Angelo APRN.CNP 10/15/2024 1:[address] result received [...] Santillan on 10/23/24 at 9:30 at the [facility] PEYTON Saini Donna, MA 10/22/2024 8:39 AM Signed Spoke with patient and confirmed appointment. Rebeca Curry MA Allergies As of Date: 10/15/2024 Noted Allergy Reaction HYDROCODONE-ACETAMINO PHEN 10/29/2016 11 - Vomiting ASPIRIN 02/27/2006 Comments: tired and weak and made her feel weird can take Ibuprofen OXYCODONE 02/08/2022 9 - Itching Date Reviewed: 09/24/2024 Reviewed by: Elida Angelo APRN.ANESTHESIOLOGY CRNA - Fully Assessed Reason for Visit: Results [...] 10/09/2006 07/19/2009 Incisional Hernia without Mention of Obstructio*03/24/2008 07/19/2009 Hallux Valgus (Acquired) [M20.10] 08/04/2009 Sprain and Strain of Unspecified Site of Foot [*08/04/2009 Complication NEC, Orth Dev NEC [T84.89XA] 09/15/2009 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 Jimbo Dash MD Status: REG CLI Study: Pelvis without IV Contrast Date of Exam: 10/13 Exam# [id number] Ordering Dr: Holly Blair o. PROCEDURE: PELVIS WITHOUT IV CONTRAST 10/13/2024 [...] the large bowels. Mild osteopenia. Reading Location: [place] [address] CC: ELIDA ANGELO; Dr. Jimbo Dash MD Carpet Installer Helper: Signed [facility] 09-25-2024 JUAN Telephone (UROLSF) JIMYKAROLINA Alejandra ([id number]) 1965 F Date Time Provider Department 09/25/24 ELIDA ANGELO During your visit today, we recorded the following information about you: Elida Angelo APRN.[facility] 09/25/2024 12:20 PM Signed Patient is aware of plan for CT and cystoscopy with Dr Pathak. Orders have been placed in office visit from yesterday. Please help patient schedule. Thanks. Elida Angelo APRN.C[facility] Vidal 09/28/2024 9:14 AM Signed [facility] to call and confirm Cece Galvan 09/29/2024 8:13 AM Signed [facility] Cece Galvan 09/30/2024 8:41 AM Signed Confirmed - having [facility] done [facility] Cece Tirakis Allergies As of Date: 09/25/2024 Noted Allergy Reaction HYDROCODONE-ACETAMINO PHEN 10/29/2016 11 - Vomiting ASPIRIN 02/27/2006 Comments: tired and weak and made her feel weird can take Ibuprofen OXYCODONE 02/08/2022 9 - Itching Date Reviewed: 09/24/2024 Reviewed by: Elida Angelo APRN.ANESTHESIOLOGY CRNA - Fully Assessed Reason for Visit: Patient [...] 10/09/2006 07/19/2009 Incisional Hernia without Mention of Obstructio*03/24/2008 07/19/2009 Hallux Valgus (Acquired) [M20.10] 08/04/2009 Sprain and Strain of Unspecified Site of Foot [*08/04/2009 Complication NEC, Orth Dev NEC [T84.89XA] 09/15/2009 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] 05/04/2010 Unspecified constipation [K59.00] 01/15/2011 Encounter Status:Closed by ELIDA ANGELO on 09/25/24 Normal [facility] BLADDER SCANon 09-24-2024 PVR 0 Cc [facility] CNOVon 09-24-2024 CNOV Office Visit (UROLAE ) KAROLINA AHN ([id number]) 1965 F Date Time Provider Department 09/24/24 11:00 AM ELIDA ANGELO During your visit today, we recorded the following information about you: Pulse Blood pressure Height 88/minute 118/73 1.6 m Elida Angelo APRN.ANESTHESIOLOGY CRNA 09/25/2024 12:20 PM Addendum [facility] [place] [facility]OL [place] [facility] NEW PATIENT UROLOGY VISIT 09/24/2024 7:33 AM PATIENT NAME: Karolina Ahn DATE OF : 1965 TODAY'S DATE: 09/24/2024 Referring Provider: Ric Taylor [address] [facility] [address] Referring Note Reviewed: Yes Chief Complaint: bladder [...] documents). She has been referred by her DISPUTE COORDINATOR office. Chart notes and results reviewed. Reports dysuria, pelvic pain x2 months. Symptoms today are present as they have been for the past 2 months. S/p bladder sling, hysterectomy, rectocele repair with Dr Edmondson in 2014 Per referring provider: Has been seen by [...] tension free vaginal sling, cystoscopy (Dr. Luis, [facility]) VAGINAL HYSTERECTOMY 04/06/2014 LAVH, BSO, anterior and posterior repair (Dr. Muniz, [facility]) Social History: Social History Tobacco Use Smoking status: Never Smokeless tobacco: Never Vaping Use Vaping status: Never Used Substance Use Topics Alcohol use: No Drug use: No Medications: Prior to Admission medications : Medication baclofen vaginal suppository 10 mg (CPD), Sig Unwrap and insert 1 Suppository vaginally once daily as directed., Start Date 09/17/22, End Date , Taking? , Authorizing Provider Walt Ulrich APRN.ANESTHESIOLOGY CRNA Medication phenazopyridine (PYRIDIUM) 200 mg tablet, Sig [...] 09/17/2022 C (more content not included)... Normal [facility] UA DIP, URINE (POC)on 2024 BILIRUBIN UA (POCT) Negative Negative [facility] CLARITY UA (POCT) Clear [facility] COLOR UA (POCT) Yellow [facility] GLUCOSE UA (POCT) Negative Negative mg/dL [facility] Hemoglobin Ql (U) Negative Negative [facility] KETONE UA (POCT) Negative Negative mg/dL [facility] LEUKOCYTES UA (POCT) Negative Negative [facility] NITRITE UA (POCT) Negative Negative [facility] PH UA (POCT) 7 4.5 - 8.0 [facility] Protein Ql (U) Negative Negative mg/dL [facility] SPECIFIC GRAVITY UA (POCT) 1.015 1.005 - 1.030 [facility] UROBILINOGEN UA (POCT) 0.2 Elizabet l E.U./dL [facility] Location:[facility], [address], [place], [address] [facility] POINT OF CARE [facility] Anion gap in Serum or Plasma Ordered By: Jimbo Dash on 08-17-2024 Anion gap [Moles/Vol] 11 mmol/L 5-15 [facility] BUN/creatinine ratioOrdered By: Jimbo Dash on 08-17-2024 Urea nitrogen/Creatinine [Mass ratio] 23.4 mg/mg High 10-20 [facility] Bilirubin, totalOrdered By: Jimbo Dash on 08-17-2024 Bilirubin [Mass/Vol] 0.52 mg/dL 0.00-1.30 [facility] Calculated very low density lipoprotein (VLDL) cholesterol measurementOrdered By: Jimbo Dash on 08-17-2024 Calculated very low density lipoprotein (VLDL) cholesterol measurement 21 mg/dL 5-40 [facility] Carbon dioxide, total [Moles /volume] in Central venous bloodOrdered By: Jimbo Dash on 08-17-2024 CO2 [Moles/Vol] 22.9 mmol/L 21.0-32.0 [facility] Chloride assayOrdered By: Kings Dash on 08-17-2024 Chloride [Moles/Vol] 105 mmol/L 98-108 [facility] Comprehensive Metabolic Prof ilon 08-17-2024 Albumin [Mass/Vol] 4.2 g/dL Normal 3.5-5.0 [facility] Comment on above: Performed By: #### L 500.4050, L500.4100 #### [facility] [address] [place], [address] Albumin/Globulin [Mass ratio] 1.5 {ratio} Normal 0.9-2.4 [facility] Comment on above: Performed By: #### L 500.4050, L500.4100 #### [facility] [address] [place], [address] ALK PHOS 129 U/L High 35-104 [facility] Comment on above: Performed By: #### L 500.4050, L500.4100 #### [facility] [address] [place], [address] ALT [Catalytic activity/Vol] 22 U/L Normal <=34 [facility] Comment on above: Performed By: #### L 500.4050, L500.4100 #### [facility] [address] [place], [address] AST [Catalytic activity/Vol] 23 U/L Normal <=31 [facility] Comment on above: Performed By: #### L 500.4050, L500.4100 #### [facility] [address] [place], [address] Bilirubin [Mass/Vol] 0.52 mg/dL Normal 0.00-1.30 [facility] Comment on above: Performed By: #### L 500.4050, L500.4100 #### [facility] [address] [place], [address] BUN/CRE 23.4 RATIO High 10-20 [facility] Comment on above: Performed By: #### L 500.4050, L500.4100 #### [facility] [address] [place], [address] Calcium [Mass/Vol] 9.6 mg/dL Normal 7.6-11.0 [facility] Comment on above: Performed By: #### L 500.4050, L500.4100 #### [facility] [address] [place], [address] Chloride [Moles/Vol] 105 mmol/L Normal 98-108 [facility] Comment on above: Performed By: #### L 500.4050, L500.4100 #### [facility] [address] [place], [address] CO2 [Moles/Vol] 22.9 mmol/L Normal 21.0-32.0 [facility] Comment on above: Performed By: #### L 500.4050, L500.4100 #### [facility] [address] [place], [address] Creatinine [Mass/Vol] 0.92 mg/dL Normal 0.70-1.20 [facility] Comment on above: Performed By: #### L 500.4050, L500.4100 #### [facility] [address] [place], [address] GAP 11 Normal 5-15 [facility] Comment on above: Performed By: #### L 500.4050, L500.4100 #### [facility] [address] [place], [address] GFR/1.73 sq M.predicted among non-blacks MDRD (S/P/Bld) [Vol rate/Area] 72 mL/min/{1.73_m2} Normal >60 [facility] Comment on above: Result Comment: mL/m in/1.73m2 CKD-EPI Creatinine Equation (2020) Performed By: #### L 500.4050, L500.4100 #### [facility] [address] [place], [address] Globulin (S) [Mass/Vol] 2.7 g/dL Normal 2.2-4.2 [facility] Comment on above: Performed By: #### L 500.4050, L500.4100 #### [facility] [address] [place], [address] Glucose [Mass/Vol] 81 mg/dL Normal 70-99 [facility] Comment on above: Performed By: #### L 500.4050, L500.4100 #### [facility] [address] [place], [address] Potassium [Moles/Vol] 4.1 mmol/L Normal 3.3-5.1 [facility] Comment on above: Performed By: #### L 500.4050, L500.4100 #### [facility] [address] [place], [address] Sodium [Moles/Vol] 138 mmol/L Normal 133-145 [facility] Comment on above: Performed By: #### L 500.4050, L500.4100 #### [facility] [address] [place], [address] T PROT 6.9 g/dL Normal 5.9-8.4 [facility] Comment on above: Performed By: #### L 500.4050, L500.4100 #### [facility] [address] [place], [address] Urea nitrogen [Mass/Vol] 21 mg/dL High 4-19 [facility] Comment on above: Performed By: #### L 500.4050, L500.4100 #### [facility] [address] [place], [address] Glomerular filtration rate ( GFR) estimation/1.73 sq m using serum, plasma, or whole bOrdered By: Jimbo Dash on 08-17-2024 GFR/1.73 sq M.predicted among non-blacks MDRD (S/P/Bld) [Vol rate/Area] 72 mL/min/{1.73_m2} >60 [facility] Comment on above: mL/min/1.73m2 CKD-EP I Creatinine Equation (2020) LDL calc ser/plasOrdered By: Jimbo Dash on 08-17-2024 Cholesterol in LDL [Mass/Vol] 113 mg/dL [facility] Comment on above: Ffknbsgoyd=865-756 m g/dL & Higher Zwji=103 mg/dL or greater Laboratory - Chemistry and C hemistry - challengeOrdered By: Jimbo Dash on 08-17-2024 AST [Catalytic activity/Vol] 23 U/L <32 [facility] Lipid Profileon 08-17-2024 CHOL:HDL 3.04 Normal [facility] Comment on above: Performed By: #### L 500.4050, L500.4100 #### [facility] [address] [place], [address] Cholesterol [Mass/Vol] 200 mg/dL Normal <=200 [facility] Comment on above: Result Comment: Chol esterol level, Desirable <200 mg/dL Borderline high cholesterol 200-239 mg/dL High cholesterol >=240 mg/dL Recommendations of the NCEP Adult Treatment Panel for the following risk-cutoff thresholds for the [place] Palestinian population. Performed By: #### L 500.4050, L500.4100 #### [facility] [address] [place], [address] Cholesterol in HDL [Mass/Vol] 66 mg/dL Normal [facility] Comment on above: Result Comment: Nivia onal Cholesterol Education Program (NCEP) guidelines: <40 mg/dL: Low HDL-cholesterol (major risk factor for CHD) >= 60 mg/dL: High HDL-cholesterol (negative risk factor for CHD) HDL-cholesterol is affected by a number of factors, e.g. smoking, exercise, hormones, sex and age. Performed By: #### L 500.4050, L500.4100 #### [facility] [address] [place], [address] Cholesterol in LDL [Mass/Vol] 113 mg/dL Normal [facility] Comment on above: Result Comment: Bord coznwx=681-200 mg/dL Higher Roaj=808 mg/dL or greater Performed By: #### L 500.4050, L500.4100 #### [facility] [address] [place], [address] Cholesterol in VLDL [Mass/Vol] 21 mg/dL Normal 5-40 [facility] Comment on above: Performed By: #### L 500.4050, L500.4100 #### [facility] [address] [place], [address] Triglyceride [Mass/Vol] 106 mg/dL Normal [facility] Comment on above: Result Comment: The drugs N-Acetylcysteine and Metamizole may falsely depress this assay. Normal range: <150 mg/dL Borderline High: 150-199 mg/dL High: 200-499 mg/dL Very High: >500 mg/dL Performed By: #### L 500.4050, L500.4100 #### [facility] [address] [place], [place], [address] MR/BMS.ASHERSon 08-17-2024 MR/BMS.BVS [facility] Vascular Surgery [address] [place] [address] OFFICE VISIT Date of Service: 08/17/24 MR#: [id number] Acct: [id number] Name: KAROLINA AHN Rep #: [id number] : 1965 Provider: Dr. Reji Goldberg MD Age/Sex: 59/F Location: [facility] Status: Signed Intake Vital Signs 11/28/23 15:55 [...] air Intake Visit Reasons: 6 M FU Body Press Operator Required: No Accompanied by: Is patient in [...] visual distu (more content not included)... Normal [facility] Potassium measurement (mass/ volume)Ordered By: Jimbo Dash on 08-17-2024 Potassium (Unsp spec) [Mass/Vol] 4.1 mmol/L 3.3-5.1 [facility] Screening total cholesterol/ high density lipoprotein (HDL) cholesterol ratioOrdered By: Jimbo Dash on 08-17-2024 Cholesterol.total/Kayla sterol in HDL [Mass ratio] 3.04 {ratio} [facility] Serum creatinine measurement (mass/volume)Ordered By: Jimbo Dash on 08-17-2024 Creatinine [Mass/Vol] 0.92 mg/dL 0.70-1.20 [facility] Serum globulin measurementOr dered By: Jimbo Dash on 08-17-2024 Globulin (S) [Mass/Vol] 2.7 g/dL 2.2-4.2 [facility] Serum glucose measurement (m ass/volume)Ordered By: Jimbo Dash on 08-17-2024 Glucose [Mass/Vol] 81 mg/dL 70-99 [facility] Serum or plasma alanine hernández otransferase (ALT) measurementOrdered By: Jimbo Dash on 08-17-2024 ALT [Catalytic activity/Vol] 22 U/L <35 [facility] Serum or plasma albumin cooper urement (mass/volume)Ordered By: Jimbo Dash on 08-17-2024 Albumin [Mass/Vol] 4.2 g/dL 3.5-5.0 [facility] Serum or plasma albumin/glob ulin mass ratioOrdered By: Jimbo Dash on 08-17-2024 Albumin/Globulin [Mass ratio] 1.5 {ratio} 0.9-2.4 [facility] Serum or plasma alkaline willy sphatase measurementOrdered By: Jimbo Dash on 08-17-2024 ALP [Catalytic activity/Vol] 129 U/L High 35-104 [facility] Serum or plasma calcium cooper urement (mass/volume)Ordered By: Jimbo Dash on 08-17-2024 Calcium [Mass/Vol] 9.6 mg/dL 7.6-11.0 [facility] Serum or plasma cholesterol in HDL measurement (mass/volume)Ordered By: Jimbo Dash on 08-17-2024 Cholesterol in HDL [Mass/Vol] 66 mg/dL >40 [facility] Comment on above: National Cholesterol Education Program (NCEP) guidelines:<40 mg/dL: Low HDL-cholesterol (major risk factor for CHD)>= 60 mg/dL: High HDL-cholesterol (negative risk factor for CHD)HDL-cholesterol is affected by a number of factors, e.g. smoking, exercise, hormones, sex and age. Serum or plasma cholesterol measurement (mass/volume)Ordered By: Jimbo Dash on 08-17-2024 Cholesterol [Mass/Vol] 200 mg/dL <201 [facility] Comment on above: Cholesterol level, D esirable <200 mg/dLBorderline high cholesterol 200-239 mg/dLHigh cholesterol >=240 mg/dLRecommendations of the NCEP Adult Treatment Panel for the following risk-cutoff thresholds for the [place] Palestinian population. Serum or plasma urea nitroge n measurement (mass/volume)Ordered By: Jimbo Dash on 08-17-2024 Urea nitrogen [Mass/Vol] 21 mg/dL High 4-19 [facility] Sodium levelOrdered By: Jimob Dash on 08-17-2024 Sodium [Moles/Vol] 138 mmol/L 133-145 [facility] Total proteinOrdered By: Laurie Dash on 08-17-2024 Protein [Mass/Vol] 6.9 g/dL 5.9-8.4 [facility] Triglycerides measurementOrd ered By: Jimbo Dash on 08-17-2024 Triglyceride [Mass/Vol] 106 mg/dL <199 [facility] Comment on above: The drugs N-Acetylcy steine and Metamizole may falsely depress this assay. Normal range: <150 mg/dLBorderline High: 150-199 mg/dLHigh: 200-499 mg/dLVery High: >500 mg/dL Abdominal aortic duplex scan reportOrdered By: Reji Goldberg on 07-20-2024 US.doppler Thoracic and abdominal aorta [facility] [address] [place] [address] Abd Aortic/IVC Duplex scan 07/14/24 0910 MR#: [id number] Acct: [id number] Name: KAROLINA AHN Rep #:[id number] : 1965 59 From: Reji Bryant Attending Dr: KINGS Sidhu Stat us: REG CLI Ordering Dr: Reji Goldberg MD Date: Location: [facility] Sex: F C Admitted: Reason [...] stents patent with normal venous flow pattern. Ordering Physician: Reji Goldberg Referring Physician: Jimbo Dash Performed By: River Leblanc RVT 07/20/24 1238 Date _ Reji Goldberg MD CC: KINGS Sidhu; Dr. Reji Goldberg MD; Dr. 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 Ordering Physician: Reji Goldberg Referring Physician: Jimbo Dash Performed By: River Leblanc, T 07/20/24 1238 Date Reji Goldberg MD CC: KINGS Sidhu; Dr. Reji Goldberg MD; Dr. Jimbo Dash MD Date Dictated: 07/14/24 0910 Date Transcribed: 07/20/24 1238 Carpet Installer Helper: Signed Normal [facility] Urine Cultureon 07-11-2024 [facility] Order Date: 03/12/25 Order Info: 630-4 - CUUR Strep anginosus Orting Count 80,000-100,000 Strep anginosus: REACTION Ampicillin Islt MAX <=0.25 Penicillin G Islt MAX <=0.06 S Cefotaxime Islt MAX <=0.12 S cefTRIAXone Islt MAX <=0.12 S Clindamycin Islt MAX <=0.25 S Erythromycin Islt MAX 4 R Linezolid Islt MAX <=2 S Vancomycin Islt MAX 0.5 S Normal [facility] Comment on above: Performed By: #### M 100.2200, L400.0001 ####[facility] [address] [place], [place], [id number] Bilirubin Test strip Ql (U)O rdered By: Jimbo Dash on 07-08-2024 Bilirubin Ql (U) Negative Negative [facility] Epithelial cells.squamous LM Ql (Urine sed)Ordered By: Jimbo Dash on 07-08-2024 Epithelial cells.squamous LM.HPF (Urine sed) [#/Area] 0 /[HPF] 5-10 [facility] Glucose Ql (U)Ordered By: Kings Dash on 07-08-2024 Urine Glucose (UA) Normal mg/dl Normal [facility] Ketones Test strip Ql (U)Ord ered By: Jimbo Dash on 07-08-2024 Ketones Ql (U) Negative Negative [facility] Microscopic analysis of urin e for red blood cells (RBC)Ordered By: Jimbo Dash on 07-08-2024 Microscopic analysis of urine for red blood cells (RBC) 0-5 SEEN /hpf 0-5 [facility] Urine RBC 0-5 SEEN /hpf 0-5 [facility] Mucus LM Ql (Urine sed)Order ed By: Jimbo Dash on 07-08-2024 Mucus Ql (Urine sed) 0 SEEN /hpf [facility] Nitrite Test strip Ql (U)Ord ered By: Jimbo Dash on 07-08-2024 Nitrite Ql (U) Negative Negative [facility] Protein Test strip Ql (U)Ord ered By: Jimbo Dash on 07-08-2024 Protein Ql (U) 30 mg/dl High Negative [facility] Squamous epithelial cells de tection in urine sediment by light microscopyOrdered By: Jimbo Dash on 07-08-2024 Epithelial cells.squamous LM Ql (Urine sed) 0-5 SEEN /hpf 5-10 [facility] Transitional cells LM Ql (Ur ine sed)Ordered By: Jimbo Dash on 07-08-2024 Urine Transitional Epithelial Cells 0-5 SEEN /hpf 0-5 [facility] Transitional cells detection in urine sediment by light microscopyOrdered By: Jimbo Dash on 07-08-2024 Transitional cells LM Ql (Urine sed) 0-5 SEEN /hpf 0-5 [facility] Urinalysis, Completeon 07-08 EPI,SQUAMOUS 0-5 SEEN Normal 5-10 [facility] Comment on above: Order Comment: Order Date: 07/08/24Order Info: [id number] - UACCOLLECTOR TO SPECIFY Performed By: #### M 100.2200, L400.0001 ####[facility] [address] [place], [address] EPI,TRANSITION 0-5 SEEN Normal 0-5 [facility] Comment on above: Order Comment: Order Date: 07/08/24Order Info: [id number] - UACCOLLECTOR TO SPECIFY Performed By: #### M 100.2200, L400.0001 ####[facility] [address] [place], [address] RBC 0-5 SEEN Normal 0-5 [facility] Comment on above: Order Comment: Order Date: 07/08/24Order Info: [id number] - UACCOLLECTOR TO SPECIFY Performed By: #### M 100.2200, L400.0001 ####[facility] [address] [place], [address] WBC 0-5 SEEN Normal 0-5 [facility] Comment on above: Order Comment: Order Date: 07/08/24Order Info: [id number] - UACCOLLECTOR TO SPECIFY Performed By: #### M 100.2200, L400.0001 ####[facility] [address] [place], [address] BACTERIA 0 SEEN Normal None Seen [facility] Comment on above: Order Comment: Order Date: 07/08/24Order Info: [id number] - UACCOLLECTOR TO SPECIFY Performed By: #### M 100.2200, L400.0001 ####[facility] [address] [place], [address] Mucus Ql (Urine sed) 0 SEEN Normal [facility] Comment on above: Order Comment: Order Date: 07/08/24Order Info: 10624-7 - UACCOLLECTOR TO SPECIFY Performed By: #### M 100.2200, L400.0001 ####[facility] [address] [place], [address] Urine blood detectionOrdered By: Jimbo Dash on 07-08-2024 Urine Occult Blood 150 /ul High Negative [facility] Urine clarityOrdered By: Laurie Dash on 07-08-2024 Clarity (U) Sl. Cloudy Clear [facility] Urine color determinationOrd ered By: Jimbo Dash on 07-08-2024 Color (U) Yellow Yellow [facility] Urine cultureOrdered By: Laurie Dash on 07-08-2024 Bacteria identified Cx Nom (U) Strep anginosus Abnormal [facility] Urine glucose detectionOrder ed By: Jimbo Dash on 07-08-2024 Glucose Ql (U) Normal mg/dl Normal [facility] Urine leukocyte esterase det ection by dipstickOrdered By: Jimbo Dash on 07-08-2024 Leukocyte esterase Test strip Ql (U) 500 /ul High Negative [facility] Urine pHOrdered By: Jimbo Rodriguez lshallie on 07-08-2024 pH (U) 6.0 [pH] 5.0 - 8.0 [facility] Urine sediment bacteria coun t by microscopy (number/high power field)Ordered By: Jimbo Dash on 07-08-2024 Bacteria LM.HPF (Urine sed) [#/Area] 0 /[HPF] None Seen [facility] Urine specific gravity measu rementOrdered By: Jimbo Dash on 07-08-2024 Specific gravity (U) [Rel density] 1.025 1.002-1.030 [facility] Urine urobilinogen measureme ntOrdered By: Jimbo Dash on 07-08-2024 Urobilinogen Ql (U) Normal mg/dl Normal [facility] Urobilinogen Ql (U)Ordered B y: Jimbo Dash on 07-08-2024 Urine Urobilinogen Normal mg/dl Normal [facility] White blood cell countOrdere d By: Jimbo Dash on 07-08-2024 Urine WBC 0-5 SEEN /hpf 0-5 [facility] White blood cell count 0-5 SEEN /hpf 0-5 [facility] 12 Lead EKGon 06-11-2024 12 Lead EKG [facility] [address] [place] [address] 12 Lead EKG 06/11/24 1430 MR#: [id number] Acct: [id number] Name: KAROLINA AHN Rep #: [id number] : 1965 59 From: Sumeet Hamilton MD [...] rhythm Normal ECG Confirmed by JENNI MCELROY, IMRNA ([id number]), editor newspaper RAOUL MCDOWELL ([id number]) on 06/15/2024 8:07:34 AM Referred By: Rupert Mensah Confirmed By: MIRNA HAMILTON MD 06/15/24 0807 Date Sumeet Hamilton MD CC: Dr. Jimbo Dash MD; Dr. Rupert Mensah DO Signed Normal [facility] Absolute neutrophil countOrd ered By: Rupert Mensah on 06-11-2024 Neutrophils (Bld) [#/Vol] 3.8 10*3/uL 2.0-7.7 [facility] Basic Metabolic Profile (BMP )on 06-11-2024 BUN/CRE 18.9 RATIO Normal 10-20 [facility] Comment on above: Order Comment: 'TROP ' Serial specimen #1, #2 or #3: 1 Performed By: #### L 100.0100, L501.4020, L300.8000, L300.3900, L300.4310, L500.2500 #### [facility] [address] [place], [address] CA,Total 8.9 mg/dL Normal 8.5-10.1 [facility] Comment on above: Order Comment: 'TROP ' Serial specimen #1, #2 or #3: 1 Performed By: #### L 100.0100, L501.4020, L300.8000, L300.3900, L300.4310, L500.2500 #### [facility] [address] [place], [address] Chloride [Moles/Vol] 111 mmol/L High 98-107 [facility] Comment on above: Order Comment: 'TROP ' Serial specimen #1, #2 or #3: 1 Performed By: #### L 100.0100, L501.4020, L300.8000, L300.3900, L300.4310, L500.2500 #### [facility] [address] [place], [address] CO2 [Moles/Vol] 23.0 mmol/L Normal 21.0-32.0 [facility] Comment on above: Order Comment: 'TROP ' Serial specimen #1, #2 or #3: 1 Performed By: #### L 100.0100, L501.4020, L300.8000, L300.3900, L300.4310, L500.2500 #### [facility] [address] [place], [address] Creatinine [Mass/Vol] 0.90 mg/dL Normal 0.55-1.02 [facility] Comment on above: Order Comment: 'TROP ' Serial specimen #1, #2 or #3: 1 Result Comment: The validity of the calculated GFR GFRAA in patients over 70 years has not been determined. Clinical correlation is essential. Performed By: #### L 100.0100, L501.4020, L300.8000, L300.3900, L300.4310, L500.2500 #### [facility] [address] [place], [address] ECRCL 60.56 ml/min Normal [facility] Comment on above: Order Comment: 'TROP ' Serial specimen #1, #2 or #3: 1 Performed By: #### L 100.0100, L501.4020, L300.8000, L300.3900, L300.4310, L500.2500 #### [facility] [address] [place], [address] EST GFR - AA 82 mL/min Normal >60 [facility] Comment on above: Order Comment: 'TROP ' Serial specimen #1, #2 or #3: 1 Result Comment: Afri can Palestinian GFR Calc Performed By: #### L 100.0100, L501.4020, L300.8000, L300.3900, L300.4310, L500.2500 #### [facility] [address] [place], [address] GAP 6 Normal 5-15 [facility] Comment on above: Order Comment: 'TROP ' Serial specimen #1, #2 or #3: 1 Performed By: #### L 100.0100, L501.4020, L300.8000, L300.3900, L300.4310, L500.2500 #### [facility] [address] [place], [address] GFR/1.73 sq M.predicted among non-blacks MDRD (S/P/Bld) [Vol rate/Area] 68 mL/min/{1.73_m2} Normal >60 [facility] Comment on above: Order Comment: 'TROP ' Serial specimen #1, #2 or #3: 1 Result Comment: Non- GFR Calc Performed By: #### L 100.0100, L501.4020, L300.8000, L300.3900, L300.4310, L500.2500 #### [facility] [address] [place], [address] Glucose [Mass/Vol] 140 mg/dL High 74-106 [facility] Comment on above: Order Comment: 'TROP ' Serial specimen #1, #2 or #3: 1 Result Comment: Fast ing Glucose result greater than or equal to 126 mg/dL suggests DIABETES MELLITUS per A.D.A. criteria. Performed By: #### L 100.0100, L501.4020, L300.8000, L300.3900, L300.4310, L500.2500 #### [facility] [address] [place], [address] Potassium [Moles/Vol] 4.0 mmol/L Normal 3.5-5.1 [facility] Comment on above: Order Comment: 'TROP ' Serial specimen #1, #2 or #3: 1 Performed By: #### L 100.0100, L501.4020, L300.8000, L300.3900, L300.4310, L500.2500 #### [facility] [address] [place], [address] Sodium [Moles/Vol] 140 mmol/L Normal 136-145 [facility] Comment on above: Order Comment: 'TROP ' Serial specimen #1, #2 or #3: 1 Performed By: #### L 100.0100, L501.4020, L300.8000, L300.3900, L300.4310, L500.2500 #### [facility] [address] [place], [address] Urea nitrogen [Mass/Vol] 17 mg/dL Normal 7-18 [facility] Comment on above: Order Comment: 'TROP ' Serial specimen #1, #2 or #3: 1 Performed By: #### L 100.0100, L501.4020, L300.8000, L300.3900, L300.4310, L500.2500 #### [facility] [address] [place], [address] Basophil percentageOrdered B y: Rupert Mensah on 06-11-2024 Basophils/100 WBC (Bld) 0.9 % 0-1 [facility] Blood urea nitrogen (BUN)/cr eatinine ratioOrdered By: Rupert Mensah on 06-11-2024 Urea nitrogen/Creatinine [Mass ratio] 18.9 mg/mg 10- [facility] CBC W/Diff, Automatedon 05-30 Absolute Lymph 1.29 X10 3/uL Normal 0.83-4.51 [facility] Comment on above: Performed By: #### L 100.0100, L501.4020, L300.8000, L300.3900, L300.4310, L500.2500 #### [facility] [address] [place], [address] Absolute Neut 3.8 X10 3/uL Normal 2.0-7.7 [facility] Comment on above: Performed By: #### L 100.0100, L501.4020, L300.8000, L300.3900, L300.4310, L500.2500 #### [facility] [address] [place], [address] Basophils/100 WBC (Bld) 0.9 % Normal 0-1 [facility] Comment on above: Performed By: #### L 100.0100, L501.4020, L300.8000, L300.3900, L300.4310, L500.2500 #### [facility] [address] [place], [address] Eosinophils/100 WBC (Bld) 4.6 % Normal 0-5 [facility] Comment on above: Performed By: #### L 100.0100, L501.4020, L300.8000, L300.3900, L300.4310, L500.2500 #### [facility] [address] [place], [address] Erythrocyte distribution width (RBC) [Ratio] 13.1 % Normal 11.6-14.6 [facility] Comment on above: Performed By: #### L 100.0100, L501.4020, L300.8000, L300.3900, L300.4310, L500.2500 #### [facility] [address] [place], [address] Hematocrit (Bld) [Volume fraction] 40.8 % Normal 37-47 [facility] Comment on above: Performed By: #### L 100.0100, L501.4020, L300.8000, L300.3900, L300.4310, L500.2500 #### [facility] [address] [place] [id number] Hemoglobin (Bld) [Mass/Vol] 13.2 g/dL Normal 12.0-15.0 [facility] Comment on above: Performed By: #### L 100.0100, L501.4020, L300.8000, L300.3900, L300.4310, L500.2500 #### [facility] [address] [place], [address] IG% 0.200 Normal 0.0-0.9 [facility] Comment on above: Result Comment: IG% - Immature Granulocytes (promyelocytes, myelocytes and metamyelocytes) > 1% indicates that a LEFT SHIFT is Present. Performed By: #### L 100.0100, L501.4020, L300.8000, L300.3900, L300.4310, L500.2500 #### [facility] [address] [place], [address] Lymphocytes/100 WBC (Bld) 22.2 % Normal 19-41 [facility] Comment on above: Performed By: #### L 100.0100, L501.4020, L300.8000, L300.3900, L300.4310, L500.2500 #### [facility] [address] [place], [address] MCH (RBC) [Entitic mass] 28.8 pg Normal 27.0-32.0 [facility] Comment on above: Performed By: #### L 100.0100, L501.4020, L300.8000, L300.3900, L300.4310, L500.2500 #### [facility] [address] [place], [address] MCHC (RBC) [Mass/Vol] 32.4 g/dL Normal 32-36 [facility] Comment on above: Performed By: #### L 100.0100, L501.4020, L300.8000, L300.3900, L300.4310, L500.2500 #### [facility] [address] [place], [address] MCV (RBC) [Entitic vol] 88.9 fL Normal 81-99 [facility] Comment on above: Performed By: #### L 100.0100, L501.4020, L300.8000, L300.3900, L300.4310, L500.2500 #### [facility] [address] [place], [address] Monocytes/100 WBC (Bld) 6.4 % Normal 0-10 [facility] Comment on above: Performed By: #### L 100.0100, L501.4020, L300.8000, L300.3900, L300.4310, L500.2500 #### [facility] [address] [place], [address] Neutrophils/100 WBC (Bld) 65.7 % Normal 47-70 [facility] Comment on above: Performed By: #### L 100.0100, L501.4020, L300.8000, L300.3900, L300.4310, L500.2500 #### [facility] [address] [place], [address] Nucleated RBC (Bld) [#/Vol] 0 10*3/uL Normal 0-5 [facility] Comment on above: Performed By: #### L 100.0100, L501.4020, L300.8000, L300.3900, L300.4310, L500.2500 #### [facility] [address] [place], [address] Platelet mean volume (Bld) [Entitic vol] 10.0 fL Normal 6.2-12.0 [facility] Comment on above: Performed By: #### L 100.0100, L501.4020, L300.8000, L300.3900, L300.4310, L500.2500 #### [facility] [address] [place], [address] Platelets (Bld) [#/Vol] 270 10*3/uL Normal 150-450 [facility] Comment on above: Performed By: #### L 100.0100, L501.4020, L300.8000, L300.3900, L300.4310, L500.2500 #### [facility] [address] [place], [address] RBC (Bld) [#/Vol] 4.59 10*6/uL Normal 4.2-5.4 [facility] Comment on above: Performed By: #### L 100.0100, L501.4020, L300.8000, L300.3900, L300.4310, L500.2500 #### [facility] [address] [place], [address] RDW SD 42.4 fl Normal 35.1-43.9 [facility] Comment on above: Performed By: #### L 100.0100, L501.4020, L300.8000, L300.3900, L300.4310, L500.2500 #### [facility] [address] [place], [address] WBC (Bld) [#/Vol] 5.8 10*3/uL Normal 4.4-11.0 [facility] Comment on above: Performed By: #### L 100.0100, L501.4020, L300.8000, L300.3900, L300.4310, L500.2500 #### [facility] [address] [facility] [place], [address] Carbon dioxide measurementOr dered By: Rupert Mensah on 06-11-2024 CO2 [Moles/Vol] 23.0 mmol/L 21.0-32.0 [facility] Chest PA and Lateralon 06-11 Chest PA and Lateral [facility] Services [address] [place] [address] Chest PA and Lateral MR#: [id number] Acct: [id number] Name: KAROLINA AHN Rep #: [id number] : 1965 F 59 From: Guanako Bryant PCP: Dr. Jimbo Dash MD Status: [facility] ER Study: Chest PA and Lateral Date of Exam: 06/11/24 Exam# [id number] Ordering Dr: Rupert Mensah DO PROCEDURE: CHEST [...] evidence of acute cardiopulmonary disease. Reading Location: [address] CC: Dr. Jimbo Dash MD; Dr. 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 Performed By: #### L 100.0100, L501.4020, L300.8000, L300.3900, L300.4310, L500.2500 ####[facility] [address] [place], [address] D-dimer measurement for deep venous thrombosisOrdered By: Rupert Mensah on 06-11-2024 D-Dimer Quantitative (PE/DVT) 0.37 FEU/ug/m 0.27-0.49 [facility] Comment on above: NORMAL D-Dimer level (<0.50) indicates no DVT or PE. Emergency Department Summary on 06-11-2024 Emergency Department Summary [facility] Medical Records Department [address] [place] [address] Emergency Department Summary 06/11/24 MR#: [id number] Acct: [id number] Name: KAROLINA AHN Rep #: [id number] : 1965 59 From: Rupert Yeung PCP: [...] the past. No coronary disease history. Father [place] at 65, history of hyperlipidemia. Denies hypertension or diabetes. Denies tobacco. Denies recent travel or surgeries no history of PE or DVT. She reports her previous clots were unprovoked. Prior Similar Symptoms: No and With Prior [place] CVD Risk Factors: Positive for Hypercholesterolemia; Negative for Hypertension, Diabetes, Family History 1' PE Risk Factors: Negative for Recent Travel/Surgery, Recent Immobilization or Prior DVT or PE [facility] Medical History GERD (gastroesophageal reflux disease) Loss [...] normal respi (more content not included)... Normal [facility] Eosinophil percentageOrdered By: Rupert Mensah on 06-11-2024 Eosinophils/100 WBC (Bld) 4.6 % 0-5 [facility] Erythrocyte distribution wid th ratioOrdered By: Rupert Mensah on 06-11-2024 Erythrocyte distribution width (RBC) [Ratio] 13.1 % 11.6-14.6 [facility] Erythrocyte distribution wid th standard deviationOrdered By: Rupert Mensah on 06-11-2024 Erythrocyte distribution width (RBC) [Entitic vol] 42.4 fL 35.1-43.9 [facility] Estimated glomerular filtrat ion rate (GFR) AmericanOrdered By: Rupert Mensah on 06-11-2024 Estimated GFR (MDRD) Amer 82 mL/min >60 [facility] Comment on above: GFR Calc Estimation of creatinine natalie aranceOrdered By: Rupert Mensah on 06-11-2024 Estimated Creatinine Clearance Calc 60.56 ml/min [facility] Glomerular filtration rate ( GFR) estimationOrdered By: Rupert Mensah on 06-11-2024 Estimated GFR (MDRD) Non-Af Amer 68 mL/min >60 [facility] Comment on above: Non- GFR Calc Glucose measurementOrdered B y: Rupert Mensah on 06-11-2024 Glucose [Mass/Vol] 140 mg/dL High 74-106 [facility] Comment on above: Fasting Glucose resu lt greater than or equal to 126 mg/dL suggests DIABETES MELLITUS per A.D.A. criteria. Hematocrit Auto (Bld) [Volum e fraction]Ordered By: Rupert Mensah on 06-11-2024 Hematocrit (Bld) [Volume fraction] 40.8 % 37-47 [facility] Hemoglobin measurementOrdere d By: Rupert Mensah on 06-11-2024 Hemoglobin (Bld) [Mass/Vol] 13.2 g/dL 12.0-15.0 [facility] Immature granulocytes/100 WB C Auto (Bld)Ordered By: Rupert Mensah on 06-11-2024 Immature granulocytes/100 WBC (Bld) 0.200 % 0.0-0.9 [facility] Comment on above: IG% - Immature Granu locytes (promyelocytes, myelocytes and metamyelocytes) > 1% indicates that a LEFT SHIFT is Present. International normalized rat io (INR) calculationOrdered By: Rupert Mensah on 06-11-2024 INR Coag (Bld) [Relative time] 1.0 {INR} [facility] L501.4020on 06-11-2024 TROPONIN-I HS 4 pg/mL Normal 3.0-54.0 [facility] Comment on above: Order Comment: 'TROP ' Serial specimen #1, #2 or #3: 1 Result Comment: Plea se Note: New Test Units and Gender Specific Reference Ranges. For more information see Policy Stat Procedure [place] High Sensitivity Troponin (TNIH) and attachments. Performed By: #### L 100.0100, L501.4020, L300.8000, L300.3900, L300.4310, L500.2500 #### [facility] [address] [place], [address] Lymphocytes Auto (Unsp spec) [#/Vol]Ordered By: Rupert Mensah on 06-11-2024 Lymphocytes (Bld) [#/Vol] 1.29 10*3/uL 0.83-4.51 [facility] Lymphocytes/100 WBC Auto (Un sp spec)Ordered By: Rupert Mensah on 06-11-2024 Lymphocytes/100 WBC (Bld) 22.2 % 19-41 [facility] MCV (mean corpuscular volume ) determinationOrdered By: Rupert Mensah on 06-11-2024 MCV (RBC) [Entitic vol] 88.9 fL 81-99 [facility] Mean corpuscular hemoglobin (MCH) determinationOrdered By: Rupert Mensah on 06-11-2024 MCH (RBC) [Entitic mass] 28.8 pg 27.0-32.0 [facility] Mean corpuscular hemoglobin concentration (MCHC) determinationOrdered By: Rupert Mensah on 06-11-2024 MCHC (RBC) [Mass/Vol] 32.4 g/dL 32-36 [facility] Mean platelet volume determi nationOrdered By: Rupert Mensah on 06-11-2024 Platelet mean volume (Bld) [Entitic vol] 10.0 fL 6.2-12.0 [facility] Monocyte percentageOrdered B y: Rupert Mensah on 06-11-2024 Monocytes/100 WBC (Bld) 6.4 % 0-10 [facility] Neutrophil percentageOrdered By: Rupert Mensah on 06-11-2024 Neutrophils/100 WBC (Bld) 65.7 % 47-70 [facility] Nucleated red blood cell per centageOrdered By: Rupert Mensah on 06-11-2024 Nucleated RBC/100 WBC (Bld) [Ratio] 0 % 0-5 [facility] Partial Thromboplast Timeon 06-11-2024 aPTT Coag (Bld) [Time] 27.3 s Normal 24.1-36.2 [facility] Comment on above: Performed By: #### L 100.0100, L501.4020, L300.8000, L300.3900, L300.4310, L500.2500 #### [facility] [address] [place], [address] Platelet countOrdered By: Jose Mensah on 06-11-2024 Platelets (Bld) [#/Vol] 270 10*3/uL 150-450 [facility] Potassium measurementOrdered By: Rupert Mensah on 06-11-2024 Potassium [Moles/Vol] 4.0 mmol/L 3.5-5.1 [facility] Prothrombin Time w/INRon INR Coag (PPP) [Relative time] 1.0 {INR} Normal [facility] Comment on above: Performed By: #### L 100.0100, L501.4020, L300.8000, L300.3900, L300.4310, L500.2500 #### [facility] [address] [place], [address] PT Coag (PPP) [Time] 13.1 s Normal 11.7-14.9 [facility] Comment on above: Performed By: #### L 100.0100, L501.4020, L300.8000, L300.3900, L300.4310, L500.2500 #### [facility] [address] [place], [address] Prothrombin timeOrdered By: Rupert Mensah on 06-11-2024 PT Coag (PPP) [Time] 13.1 s 11.7-14.9 [facility] RBC Auto (Bld) [#/Vol]Ordere d By: Rupert Mensah on 06-11-2024 RBC (Bld) [#/Vol] 4.59 10*6/uL 4.2-5.4 [facility] Serum anion gap measurementO rdered By: Rupert Mensah on 06-11-2024 Anion gap [Moles/Vol] 6 mmol/L 5-15 [facility] Serum or plasma calcium cooper urement (mass/volume)Ordered By: Rupert Mensah on 06-11-2024 Calcium [Mass/Vol] 8.9 mg/dL 8.5-10.1 [facility] Serum or plasma creatinine m easurement (mass/volume)Ordered By: Rupert Mensah on 06-11-2024 Creatinine [Mass/Vol] 0.90 mg/dL 0.55-1.02 [facility] Comment on above: The validity of the calculated GFR & GFRAA in patients over 70 years has not been determined. Clinical correlation is essential. Serum or plasma urea nitroge n measurement (mass/volume)Ordered By: Rupert Mensah on 06-11-2024 Urea nitrogen [Mass/Vol] 17 mg/dL 7-18 [facility] Sodium levelOrdered By: Rupert Mensah on 06-11-2024 Sodium [Moles/Vol] 140 mmol/L 136-145 [facility] Troponin IOrdered By: Rupert dhillon on 06-11-2024 Troponin I High Sensitivity 4 pg/mL 3.0-54.0 [facility] Comment on above: Please Note: New Luz [place] t Units and Gender Specific Reference Ranges. For more information see Policy Stat Procedure [place] High Sensitivity Troponin (TNIH) and attachments. Venous Duplex US, Unilateral on 06-11-2024 Venous Duplex US, Unilateral [facility] [address] [place] [address] Venous Duplex US, Unilateral 06/11/24 1500 MR#: [id number] Acct: [id number] Name: KAROLINA AHN Rep #: [id number] : 1965 59 From: Reji Goldberg MD [...] report was called and/or faxed to Vielka Peterson ED RN. VL/Venous Duplex US, Unilateral Interpretation Summary Deep veins of the right lower extremity are patent and compressible segmentally. There is no evidence of right lower extremity deep vein thrombosis. The right great saphenous vein appears patent and compressible segmentally. The popliteal vein measures approximately 2.14cm x 2.13cm and has Rouleaux (slowed) flow visualized. Ordering Physician: Rupert Mensah Referring Physician: Jimbo Dash Performed By: River Leblanc Gerald 06/11/24 1547 Date Reji Goldberg MD CC: Dr. Jimbo Dash MD; Dr. 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 Submit a new specimen if indicated. Normal [facility] Comment on above: Performed By: #### M 100.2200 ####[facility] [address] [facility]. [place], [place], [address] Sacrum-Coccyx min 2 Viewson 05-21-2024 Sacrum-Coccyx min 2 Views [facility] Imaging Services [address] [place], [place] [address] Sacrum-Coccyx min 2 Views MR#: [id number] Acct: [id number] Name: KAROLINA AHN Rep #: [id number] : 1965 F 58 From: Jeff Reyes MD PCP: Dr. Jimbo Dash MD Status: REG CLI Study: Sacrum-Coccyx min 2 Views Date of Exam: Exam# [id number] Ordering Dr: Jimbo Dash MD [id number] STUDY: X-RAY - SACRUM/COCCYX REASON FOR EXAM: [...] 9:06 EST Reading Location ID and State: [facility] / [place] , Service support , CC: Dr. 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 Jimbo Dash MD Status: REG ER Study: Abdomen/Pelvis W IV Cont ONLY Date of Exam: Exam# [id number] Ordering Dr: Mp Torrez MD [id number] EXAM: CT ABDOMEN AND PELVIS WITH INTRAVENOUS [...] MD at 20:34 EST , CC: Dr. 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 [place], [place], [address] Absolute Neut 3.1 X10 3/uL Normal 2.0-7.7 [facility] Comment on above: Performed By: #### L 500.4050, L100.0100, L501.2450 ####[facility] [address] [place], [address] Basophils/100 WBC (Bld) 0.5 % Normal 0-1 [facility] Comment on above: Performed By: #### L 500.4050, L100.0100, L501.2450 ####[facility] [address] [place], [address] Eosinophils/100 WBC (Bld) 6.5 % High 0-5 [facility] Comment on above: Performed By: #### L 500.4050, L100.0100, L501.2450 ####[facility] [address] [place], [address] Erythrocyte distribution width (RBC) [Ratio] 13.7 % Normal 11.6-14.6 [facility] Comment on above: Performed By: #### L 500.4050, L100.0100, L501.2450 ####[facility] [address] [place], [address] Hematocrit (Bld) [Volume fraction] 40.7 % Normal 37-47 [facility] Comment on above: Performed By: #### L 500.4050, L100.0100, L501.2450 ####[facility] [address] [place], [address] Hemoglobin (Bld) [Mass/Vol] 12.9 g/dL Normal 12.0-15.0 [facility] Comment on above: Performed By: #### L 500.4050, L100.0100, L501.2450 ####[facility] [address] [place], [address] IG% 0.200 Normal 0.0-0.9 [facility] Comment on above: Result Comment: IG% - Immature Granulocytes (promyelocytes, myelocytes and metamyelocytes) > 1% indicates that a LEFT SHIFT is Present. Performed By: #### L 500.4050, L100.0100, L501.2450 ####[facility] [address] [place], [address] Lymphocytes/100 WBC (Bld) 29.5 % Normal 19-41 [facility] Comment on above: Performed By: #### L 500.4050, L100.0100, L501.2450 ####[facility] [address] [place], [address] MCH (RBC) [Entitic mass] 28.0 pg Normal 27.0-32.0 [facility] Comment on above: Performed By: #### L 500.4050, L100.0100, L501.2450 ####[facility] [address] [place], [address] MCHC (RBC) [Mass/Vol] 31.7 g/dL Low 32-36 [facility] Comment on above: Performed By: #### L 500.4050, L100.0100, L501.2450 ####[facility] [address] [place], [address] MCV (RBC) [Entitic vol] 88.3 fL Normal 81-99 [facility] Comment on above: Performed By: #### L 500.4050, L100.0100, L501.2450 ####[facility] [address] [place], [address] Monocytes/100 WBC (Bld) 7.2 % Normal 0-10 [facility] Comment on above: Performed By: #### L 500.4050, L100.0100, L501.2450 ####[facility] [address] [place], [address] Neutrophils/100 WBC (Bld) 56.1 % Normal 47-70 [facility] Comment on above: Performed By: #### L 500.4050, L100.0100, L501.2450 ####[facility] [address] [place], [address] Nucleated RBC (Bld) [#/Vol] 0 10*3/uL Normal 0-5 [facility] Comment on above: Performed By: #### L 500.4050, L100.0100, L501.2450 ####[facility] [address] [place], [address] Platelet mean volume (Bld) [Entitic vol] 9.9 fL Normal 6.2-12.0 [facility] Comment on above: Performed By: #### L 500.4050, L100.0100, L501.2450 ####[facility] [address] [place], [address] Platelets (Bld) [#/Vol] 256 10*3/uL Normal 150-450 [facility] Comment on above: Performed By: #### L 500.4050, L100.0100, L501.2450 ####[facility] [address] [place], [address] RBC (Bld) [#/Vol] 4.61 10*6/uL Normal 4.2-5.4 [facility] Comment on above: Performed By: #### L 500.4050, L100.0100, L501.2450 ####[facility] [address] [place], [address] RDW SD 44.2 fl High 35.1-43.9 [facility] Comment on above: Performed By: #### L 500.4050, L100.0100, L501.2450 ####[facility] [address] [place], [address] WBC (Bld) [#/Vol] 5.6 10*3/uL Normal 4.4-11.0 [facility] Comment on above: Performed By: #### L 500.4050, L100.0100, L501.2450 ####[facility] [address] [place], [address] Comprehensive Metabolic Prof ilon 03-13-2024 Albumin [Mass/Vol] 3.6 g/dL Normal 3.2-5.0 [facility] Comment on above: Performed By: #### L 500.4050, L100.0100, L501.2450 ####[facility] [address] [place], [address] Albumin/Globulin [Mass ratio] 1.0 {ratio} Normal 0.9-2.4 [facility] Comment on above: Performed By: #### L 500.4050, L100.0100, L501.2450 ####[facility] [address] [place], [address] ALK P 131 U/L High 45-117 [facility] Comment on above: Performed By: #### L 500.4050, L100.0100, L501.2450 ####[facility] [address] [place], [address] ALT [Catalytic activity/Vol] 31 U/L Normal 13-56 [facility] Comment on above: Performed By: #### L 500.4050, L100.0100, L501.2450 ####[facility] [address] [place], [address] AST [Catalytic activity/Vol] 19 U/L Normal 15-37 [facility] Comment on above: Performed By: #### L 500.4050, L100.0100, L501.2450 ####[facility] [address] [place], [address] Bilirubin [Mass/Vol] 0.30 mg/dL Normal 0.20-1.00 [facility] Comment on above: Result Comment: For patients on eltrombopag therapy, use of Dimension [place] TBIL is not recommended. Performed By: #### L 500.4050, L100.0100, L501.2450 ####[facility] [address] [place], [address] BUN/CRE 22.1 RATIO High 10-20 [facility] Comment on above: Performed By: #### L 500.4050, L100.0100, L501.2450 ####[facility] [address] [place], [address] CA,Total 9.2 mg/dL Normal 8.5-10.1 [facility] Comment on above: Performed By: #### L 500.4050, L100.0100, L501.2450 ####[facility] [address] [place], [address] Chloride [Moles/Vol] 108 mmol/L High 98-107 [facility] Comment on above: Performed By: #### L 500.4050, L100.0100, L501.2450 ####[facility] [address] [place], [address] CO2 [Moles/Vol] 28.0 mmol/L Normal 21.0-32.0 [facility] Comment on above: Performed By: #### L 500.4050, L100.0100, L501.2450 ####[facility] [address] [place], [address] Creatinine [Mass/Vol] 1.00 mg/dL Normal 0.55-1.02 [facility] Comment on above: Result Comment: The validity of the calculated GFR GFRAA in patients over 70 years has not been determined. Clinical correlation is essential. Performed By: #### L 500.4050, L100.0100, L501.2450 ####[facility] [address] [place], [address] ECRCL 57.34 ml/min Normal [facility] Comment on above: Performed By: #### L 500.4050, L100.0100, L501.2450 ####[facility] [address] [place], [address] EST GFR - AA 73 mL/min Normal >60 [facility] Comment on above: Result Comment: Afri can Palestinian GFR Calc Performed By: #### L 500.4050, L100.0100, L501.2450 ####[facility] [address] [place], [address] GAP 3 Low 5-15 [facility] Comment on above: Performed By: #### L 500.4050, L100.0100, L501.2450 ####[facility] [address] [place], [address] GFR/1.73 sq M.predicted among non-blacks MDRD (S/P/Bld) [Vol rate/Area] 61 mL/min/{1.73_m2} Normal >60 [facility] Comment on above: Result Comment: Non- GFR Calc Performed By: #### L 500.4050, L100.0100, L501.2450 ####[facility] [address] [place], [address] Globulin (S) [Mass/Vol] 3.6 g/dL Normal 2.2-4.2 [facility] Comment on above: Performed By: #### L 500.4050, L100.0100, L501.2450 ####[facility] [address] [place], [address] Glucose [Mass/Vol] 108 mg/dL High 74-106 [facility] Comment on above: Result Comment: Fast ing Glucose result from 100 to 125 mg/dL suggests IMPAIRED HOMEOSTASIS per A.D.A. criteria. Performed By: #### L 500.4050, L100.0100, L501.2450 ####[facility] [address] [place], [address] Potassium [Moles/Vol] 3.8 mmol/L Normal 3.5-5.1 [facility] Comment on above: Performed By: #### L 500.4050, L100.0100, L501.2450 ####[facility] [address] [place], [address] Sodium [Moles/Vol] 139 mmol/L Normal 136-145 [facility] Comment on above: Performed By: #### L 500.4050, L100.0100, L501.2450 ####[facility] [address] [place], [address] T PROT 7.2 g/dL Normal 6.4-8.2 [facility] Comment on above: Performed By: #### L 500.4050, L100.0100, L501.2450 ####[facility] [address] [place], [address] Urea nitrogen [Mass/Vol] 22 mg/dL High 7-18 [facility] Comment on above: Performed By: #### L 500.4050, L100.0100, L501.2450 ####[facility] [address] [place], [address] Emergency Department Summary on 03-13-2024 Emergency Department Summary [facility] Medical Records Department [address] [place] [address] Emergency Department Summary 03/13/24 MR#: [id number] Acct: [id number] Name: KAROLINA AHN Rep #: [id number] : 1965 58 From: Mp Torrez MD PCP: Dr. Jimbo Dash MD Status:DEP ER Location: ED HPI HPI - GI History of Present Illness Chief Complaint: Abd Pain Informant: patient Abdominal Pain/Flank Pain Onset: Yesterday Context: Gradual Onset Timing: Continuous Quality: Aching and Sharp Location: LLQ Current Severity: Moderate Maximum Severity: Moderate Worsened by: Nothing Relieved by: Nothing Nausea/Vomiting/Emesi s GI Symptom: Negative for Nausea or Vomiting Diarrhea/Melena/Hemat ochezia GI Symptom: Negative for Diarrhea, Melena or [...] of diverticulitis. Prior similar symptoms: No Recent Illness/Hospitalizati on: No PFSH PFSH Medical History GERD (gastroesophageal [...] Psychiatric: Denies anxiety Endocrine Endocrinology: Denies polydipsia Hematologic/Lymphatic Hematologic/Lymphatic : Denies lymphadenopathy Allergic/Immunologic Allergic/Immunologic ED: Denies mouth swelling, tongue swelling or [...] Const Vi (more content not included)... Normal [facility] Lipaseon 03-13-2024 Lipase [Catalytic activity/Vol] 54 U/L Normal 13-75 [facility] Comment on above: Result Comment: Pramod grande note: LIPASE revised reference range effective 22. New Lipase methodology. Expected to produce lower values than the previous assay method. NEW Reference Range: 13 - 75 U/L Performed By: #### L 500.4050, L100.0100, L501.2450 ####[facility] [address] [place], [address] Urinalysis, Completeon 03-13 EPI,SQUAMOUS 0-5 SEEN Normal 5-10 [facility] Comment on above: Order Comment: CLEAN CATCH Performed By: #### L 400.0001 ####[facility] [address] [place], [address] EPI,TRANSITION 0-5 SEEN Normal 0-5 [facility] Comment on above: Order Comment: CLEAN CATCH Performed By: #### L 400.0001 ####[facility] [address] [place], [address] WBC 0-5 SEEN Normal 0-5 [facility] Comment on above: Order Comment: CLEAN CATCH Performed By: #### L 400.0001 ####[facility] [address] [place], [address] BACTERIA 0 SEEN Normal None Seen [facility] Comment on above: Order Comment: CLEAN CATCH Performed By: #### L 400.0001 ####[facility] [address] [place], [address] Mucus Ql (Urine sed) 0 SEEN Normal [facility] Comment on above: Order Comment: CLEAN CATCH Performed By: #### L 400.0001 ####[facility] [address] [place], [address] RBC 0 SEEN Normal 0-5 [facility] Comment on above: Order Comment: CLEAN CATCH Performed By: #### L 400.0001 ####[facility] [address] [place], [address] MR/BMS.Juan Daniel 02-27-2024 MR/BMS.BVS [facility] Vascular Surgery [address] [place], [place] [address] OFFICE VISIT Date of Service: 02/27/24 MR#: [id number] Acct: [id number] Name: KAROLINA AHN Rep #: [id number] : 1965 Provider: Dr. Reji Goldberg MD Age/Sex: 58/F Location: BMS.BVS Status: Signed Intake Vital Signs 11/28/23 15:55 [...] Recently walked a large amount while at [place] and leg did well. Tolerating Eliquis though [...] pulses prese (more content not included)... Normal [facility] CBC, Employeeon 02-14-2024 Absolute Lymph 1.42 X10 3/uL Normal 0.83-4.51 [facility] Comment on above: Performed By: #### L 100.0200, L500.2900, L400.0100 ####[facility] [address] [place], [address] Absolute Neut 4.0 X10 3/uL Normal 2.0-7.7 [facility] Comment on above: Performed By: #### L 100.0200, L500.2900, L400.0100 ####[facility] [address] [place], [address] Basophils/100 WBC (Bld) 0.7 % Normal 0-1 [facility] Comment on above: Performed By: #### L 100.0200, L500.2900, L400.0100 ####[facility] [address] [place], [address] Eosinophils/100 WBC (Bld) 5.4 % High 0-5 [facility] Comment on above: Performed By: #### L 100.0200, L500.2900, L400.0100 ####[facility] [address] [place], [address] Erythrocyte distribution width (RBC) [Ratio] 13.4 % Normal 11.6-14.6 [facility] Comment on above: Performed By: #### L 100.0200, L500.2900, L400.0100 ####[facility] [address] [place], [address] Hematocrit (Bld) [Volume fraction] 40.7 % Normal 37-47 [facility] Comment on above: Performed By: #### L 100.0200, L500.2900, L400.0100 ####[facility] [address] [place], [address] Hemoglobin (Bld) [Mass/Vol] 13.1 g/dL Normal 12.0-15.0 [facility] Comment on above: Performed By: #### L 100.0200, L500.2900, L400.0100 ####[facility] [address] [place], [address] Lymphocytes/100 WBC (Bld) 23.3 % Normal 19-41 [facility] Comment on above: Performed By: #### L 100.0200, L500.2900, L400.0100 ####[facility] [address] [place], [address] MCH (RBC) [Entitic mass] 28.5 pg Normal 27.0-32.0 [facility] Comment on above: Performed By: #### L 100.0200, L500.2900, L400.0100 ####[facility] [address] [place], [address] MCHC (RBC) [Mass/Vol] 32.2 g/dL Normal 32-36 [facility] Comment on above: Performed By: #### L 100.0200, L500.2900, L400.0100 ####[facility] [address] [place], [address] MCV (RBC) [Entitic vol] 88.7 fL Normal 81-99 [facility] Comment on above: Performed By: #### L 100.0200, L500.2900, L400.0100 ####[facility] [address] [place], [address] Monocytes/100 WBC (Bld) 5.6 % Normal 0-10 [facility] Comment on above: Performed By: #### L 100.0200, L500.2900, L400.0100 ####[facility] [address] [place], [address] Neutrophils/100 WBC (Bld) 64.7 % Normal 47-70 [facility] Comment on above: Performed By: #### L 100.0200, L500.2900, L400.0100 ####[facility] [address] [place], [address] NRBC # 0.00 10 3/uL Normal 0-5 [facility] Comment on above: Performed By: #### L 100.0200, L500.2900, L400.0100 ####[facility] [address] [place], [address] Nucleated RBC (Bld) [#/Vol] 0 10*3/uL Normal 0-5 [facility] Comment on above: Performed By: #### L 100.0200, L500.2900, L400.0100 ####[facility] [address] [place], [address] Platelet mean volume (Bld) [Entitic vol] 9.8 fL Normal 6.2-12.0 [facility] Comment on above: Performed By: #### L 100.0200, L500.2900, L400.0100 ####[facility] [address] [place], [address] Platelets (Bld) [#/Vol] 272 10*3/uL Normal 150-450 [facility] Comment on above: Performed By: #### L 100.0200, L500.2900, L400.0100 ####[facility] [address] [place], [address] RBC (Bld) [#/Vol] 4.59 10*6/uL Normal 4.2-5.4 [facility] Comment on above: Performed By: #### L 100.0200, L500.2900, L400.0100 ####[facility] [address] [place], [address] RDW SD 43.5 fl Normal 35.1-43.9 [facility] Comment on above: Performed By: #### L 100.0200, L500.2900, L400.0100 ####[facility] [address] [place], [address] WBC (Bld) [#/Vol] 6.1 10*3/uL Normal 4.4-11.0 [facility] Comment on above: Performed By: #### L 100.0200, L500.2900, L400.0100 ####[facility] [address] [place], [address] Employee Profileon 4 Albumin [Mass/Vol] 3.7 g/dL Normal 3.2-5.0 [facility] Comment on above: Performed By: #### L 100.0200, L500.2900, L400.0100 ####[facility] [address] [place], [address] Albumin/Globulin [Mass ratio] 1.1 {ratio} Normal 0.9-2.4 [facility] Comment on above: Performed By: #### L 100.0200, L500.2900, L400.0100 ####[facility] [address] [place], [address] ALK P 136 U/L High 45-117 [facility] Comment on above: Performed By: #### L 100.0200, L500.2900, L400.0100 ####[facility] [address] [place], [address] ALT [Catalytic activity/Vol] 35 U/L Normal 13-56 [facility] Comment on above: Performed By: #### L 100.0200, L500.2900, L400.0100 ####[facility] [address] [place], [address] AST [Catalytic activity/Vol] 19 U/L Normal 15-37 [facility] Comment on above: Performed By: #### L 100.0200, L500.2900, L400.0100 ####[facility] [address] [place], [address] Bilirubin [Mass/Vol] 0.50 mg/dL Normal 0.20-1.00 [facility] Comment on above: Result Comment: For patients on eltrombopag therapy, use of Dimension [place] TBIL is not recommended. Performed By: #### L 100.0200, L500.2900, L400.0100 ####[facility] [address] [place], [address] Bilirubin.direct [Mass/Vol] 0.14 mg/dL Normal 0.00-0.30 [facility] Comment on above: Performed By: #### L 100.0200, L500.2900, L400.0100 ####[facility] [address] [place], [address] BUN/CRE 18.4 RATIO Normal 10-20 [facility] Comment on above: Performed By: #### L 100.0200, L500.2900, L400.0100 ####[facility] [address] [place], [address] CA,Total 9.3 mg/dL Normal 8.5-10.1 [facility] Comment on above: Performed By: #### L 100.0200, L500.2900, L400.0100 ####[facility] [address] [place], [address] Chloride [Moles/Vol] 110 mmol/L High 98-107 [facility] Comment on above: Performed By: #### L 100.0200, L500.2900, L400.0100 ####[facility] [address] [place], [address] CHOL:HDL 3.50 Normal [facility] Comment on above: Performed By: #### L 100.0200, L500.2900, L400.0100 ####[facility] [address] [place], [address] Cholesterol [Mass/Vol] 261 mg/dL High 200 [facility] Comment on above: Result Comment: <200 mg/dL Desirable 200-240 mg/dL Borderline >240 mg/dL High Risk Performed By: #### L 100.0200, L500.2900, L400.0100 ####[facility] [address] [place], [address] Cholesterol in HDL [Mass/Vol] 75 mg/dL Normal [facility] Comment on above: Result Comment: The drugs N-Acetylcysteine and Metamizole may falsely depress this assay. Reference Range HDL <40 mg/dL Low HDL Cholesterol HDL >or= 60 mg/dL High HDL Cholesterol Performed By: #### L 100.0200, L500.2900, L400.0100 ####[facility] [address] [place], [address] Cholesterol in LDL [Mass/Vol] 155 mg/dL High 0-130 [facility] Comment on above: Performed By: #### L 100.0200, L500.2900, L400.0100 ####[facility] [address] [place], [address] Cholesterol in VLDL [Mass/Vol] 31 mg/dL Normal 5-40 [facility] Comment on above: Performed By: #### L 100.0200, L500.2900, L400.0100 ####[facility] [address] [place], [address] CO2 [Moles/Vol] 23.0 mmol/L Normal 21.0-32.0 [facility] Comment on above: Performed By: #### L 100.0200, L500.2900, L400.0100 ####[facility] [address] [place], [address] Creatinine [Mass/Vol] 1.03 mg/dL High 0.55-1.02 [facility] Comment on above: Result Comment: The validity of the calculated GFR GFRAA in patients over 70 years has not been determined. Clinical correlation is essential. Performed By: #### L 100.0200, L500.2900, L400.0100 ####[facility] [address] [place], [address] EST GFR - AA 71 mL/min Normal >60 [facility] Comment on above: Result Comment: Afri can Palestinian GFR Calc Performed By: #### L 100.0200, L500.2900, L400.0100 ####[facility] [address] [place], [address] GAP 8 Normal 5-15 [facility] Comment on above: Performed By: #### L 100.0200, L500.2900, L400.0100 ####[facility] [address] [place], [address] GFR/1.73 sq M.predicted among non-blacks MDRD (S/P/Bld) [Vol rate/Area] 58 mL/min/{1.73_m2} Low >60 [facility] Comment on above: Result Comment: Non- GFR Calc Performed By: #### L 100.0200, L500.2900, L400.0100 ####[facility] [address] [place], [address] Globulin (S) [Mass/Vol] 3.5 g/dL Normal 2.2-4.2 [facility] Comment on above: Performed By: #### L 100.0200, L500.2900, L400.0100 ####[facility] [address] [place], [address] Glucose [Mass/Vol] 116 mg/dL High 74-106 [facility] Comment on above: Result Comment: Fast ing Glucose result from 100 to 125 mg/dL suggests IMPAIRED HOMEOSTASIS per A.D.A. criteria. Performed By: #### L 100.0200, L500.2900, L400.0100 ####[facility] [address] [place], [address] LDH 193 U/L Normal 84-246 [facility] Comment on above: Performed By: #### L 100.0200, L500.2900, L400.0100 ####[facility] [address] [place], [address] Phosphate [Mass/Vol] 3.6 mg/dL Normal 2.5-4.9 [facility] Comment on above: Performed By: #### L 100.0200, L500.2900, L400.0100 ####[facility] [address] [place], [address] Potassium [Moles/Vol] 3.7 mmol/L Normal 3.5-5.1 [facility] Comment on above: Performed By: #### L 100.0200, L500.2900, L400.0100 ####[facility] [address] [place], [address] Sodium [Moles/Vol] 141 mmol/L Normal 136-145 [facility] Comment on above: Performed By: #### L 100.0200, L500.2900, L400.0100 ####[facility] [address] [place], [address] T PROT 7.2 g/dL Normal 6.4-8.2 [facility] Comment on above: Performed By: #### L 100.0200, L500.2900, L400.0100 ####[facility] [address] [place], [address] Triglyceride [Mass/Vol] 154 mg/dL Normal [facility] Comment on above: Result Comment: The drugs N-Acetylcysteine and Metamizole may falsely depress this assay. Serum Triglycerides Reference Interval Normal <150 mg/dL Borderline high 150 - 199 mg/dL High 200 - 499 mg/dL Very High > or = 500 mg/dL Performed By: #### L 100.0200, L500.2900, L400.0100 ####[facility] [address] [place], [address] Urea nitrogen [Mass/Vol] 19 mg/dL High - [facility] Comment on above: Performed By: #### L 100.0200, L500.2900, L400.0100 ####[facility] [address] [place], [address] URIC 3.2 mg/dL Normal 2.6-6.0 [facility] Comment on above: Result Comment: The drugs N-Acetylcysteine and Metamizole may falsely depress this assay. Performed By: #### L 100.0200, L500.2900, L400.0100 ####[facility] [address] [place], [address] Urinalysis, Employeeon 02-13 BILIRUBIN URINE Negative Normal Negative [facility] Comment on above: Order Comment: Urine , Random Performed By: #### L 100.0200, L500.2900, L400.0100 ####[facility] [address] [place], [address] Clarity (U) Sl. Cloudy Normal Clear [facility] Comment on above: Order Comment: Urine , Random Performed By: #### L 100.0200, L500.2900, L400.0100 ####[facility] [address] [place], [address] Color (U) Yellow Normal Yellow [facility] Comment on above: Order Comment: Urine , Random Performed By: #### L 100.0200, L500.2900, L400.0100 ####[facility] [address] [place], [address] GLUCOSE, UR Normal Normal Normal [facility] Comment on above: Order Comment: Urine , Random Performed By: #### L 100.0200, L500.2900, L400.0100 ####[facility] [address] [place], [address] KETONE UR Negative Normal Negative [facility] Comment on above: Order Comment: Urine , Random Performed By: #### L 100.0200, L500.2900, L400.0100 ####[facility] [address] [place], [address] LEUK ESTERASE 500 /ul Abnormal Negative [facility] Comment on above: Order Comment: Urine , Random Performed By: #### L 100.0200, L500.2900, L400.0100 ####[facility] [address] [place], [address] Nitrite Ql (U) Negative Normal Negative [facility] Comment on above: Order Comment: Urine , Random Performed By: #### L 100.0200, L500.2900, L400.0100 ####[facility] [address] [place], [address] OCCULT BLOOD-UR 10 /ul Abnormal Negative [facility] Comment on above: Order Comment: Urine , Random Performed By: #### L 100.0200, L500.2900, L400.0100 ####[facility] [address] [place], [address] pH UR 6.0 Normal 5.0 - 8.0 [facility] Comment on above: Order Comment: Urine , Random Performed By: #### L 100.0200, L500.2900, L400.0100 ####[facility] [address] [place], [address] PROT DIPSTX 30 mg/dl Abnormal Negative [facility] Comment on above: Order Comment: Urine , Random Performed By: #### L 100.0200, L500.2900, L400.0100 ####[facility] [address] [place], [address] SP.GR. DIPSTX 1.020 Normal 1.002-1.030 [facility] Comment on above: Order Comment: Urine , Random Performed By: #### L 100.0200, L500.2900, L400.0100 ####[facility] [address] [place], [address] UROBILI 1 mg/dl Abnormal Normal [facility] Comment on above: Order Comment: Urine , Random Performed By: #### L 100.0200, L500.2900, L400.0100 ####[facility] [address] [place], [address] Urine Cultureon 01-28-2024 URC Culture exhibits no growth. Normal [facility] Comment on above: Performed By: #### M 100.2200, L400.0001 ####[facility] [address] [place], [address] Urinalysis, Completeon 01-26 EPI,SQUAMOUS 0-5 SEEN Normal 5-10 [facility] Comment on above: Order Comment: Order Date: 01/27/24Order Info: [id number] - UACCOLLECTOR TO SPECIFY Performed By: #### M 100.2200, L400.0001 ####[facility] [address] [place], [address] BACTERIA 1+ /hpf Normal None Seen [facility] Comment on above: Order Comment: Order Date: 01/27/24Order Info: [id number] - UACCOLLECTOR TO SPECIFY Performed By: #### M 100.2200, L400.0001 ####[facility] [address] [place], [address] RBC 25-50 SEEN Normal 0-5 [facility] Comment on above: Order Comment: Order Date: 01/27/24Order Info: [id number] - UACCOLLECTOR TO SPECIFY Performed By: #### M 100.2200, L400.0001 ####[facility] [address] [place], [address] WBC 10-25 SEEN Normal 0-5 [facility] Comment on above: Order Comment: Order Date: 01/27/24Order Info: [id number] - UACCOLLECTOR TO SPECIFY Performed By: #### M 100.2200, L400.0001 ####[facility] [address] [place], [address] Mucus Ql (Urine sed) 0 SEEN Normal [facility] Comment on above: Order Comment: Order Date: 01/27/24Order Info: [id number] - UACCOLLECTOR TO SPECIFY Performed By: #### M 100.2200, L400.0001 ####[facility] [address] [place], [address] Venous Duplex US - Italo Extre [facility] 12-24-2023 Venous Duplex US - Italo Extrem [facility] [address] [place] [address] Venous Duplex US - Italo Extrem 12/24/23 1123 MR#: [id number] Acct: [id number] Name: KAROLINA AHN Rep #: [id number] : 1965 58 From: Reji Goldberg MD [...] stents patent with normal venous flow pattern. Ordering Physician: Martine Power Referring Physician: Jimbo Dash Performed By: Kacey Jenkins RVT 12/24/23 2331 Date Reji Goldberg MD CC: KINGS Sidhu; Dr. 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 Chloride [Moles/Vol] 109 mmol/L 98-107 [facility] Cholesterol [Mass/Vol] 234 mg/dL <200 [facility] Comment on above: <200 mg/dL Desirable 200-240 mg/dL Borderline >240 mg/dL High Risk Glucose [Mass/Vol] 88 mg/dL 74-106 [facility] Potassium [Moles/Vol] 4.3 mmol/L 3.5-5.1 [facility] Protein [Mass/Vol] 7.2 g/dL 6.4-8.2 [facility] Sodium [Moles/Vol] 140 mmol/L 136-145 [facility] Triglyceride [Mass/Vol] 127 mg/dL <199 [facility] Comment on above: The drugs N-Acetylcy steine and Metamizole may falsely depress this assay.Serum Triglycerides Reference Interval Normal <150 mg/dL Borderline high 150 - 199 mg/dL High 200 - 499 mg/dL Very High > or = 500 mg/dL Laboratory - Chemistry and C hemistry - challengeOrdered By: Jimbo Dash on 06-10-2023 Albumin/Globulin [Mass ratio] 1.1 {ratio} 0.9-2.4 [facility] ALP [Catalytic activity/Vol] 130 U/L 45-117 [facility] ALT [Catalytic activity/Vol] 34 U/L 13-56 [facility] Cholesterol in HDL [Mass/Vol] 65 mg/dL >40 [facility] Comment on above: The drugs N-Acetylcy steine and Metamizole may falsely depress this assay. Reference Range HDL <40 mg/dL Low HDL Cholesterol HDL >or= 60 mg/dL High HDL Cholesterol Cholesterol in LDL [Mass/Vol] 144 mg/dL 0-130 [facility] CO2 [Moles/Vol] 27.0 mmol/L 21.0-32.0 [facility] Globulin (S) [Mass/Vol] 3.5 g/dL 2.2-4.2 [facility] Urea nitrogen/Creatinine [Mass ratio] 33.2 mg/mg 10-20 [facility] No Panel InformationOrdered By: Jimbo Dash on 06-10-2023 Estimated GFR (MDRD) Amer 86 mL/min >60 [facility] Comment on above: GFR Calc Estimated GFR (MDRD) Non-Af Amer 71 mL/min >60 [facility] Comment on above: Non- GFR Calc VLDL Cholesterol 25 mg/dL 5-40 [facility] Serum or plasma calcium cooper urement (mass/volume)Ordered By: Jimbo Dash on 06-10-2023 Calcium [Mass/Vol] 9.2 mg/dL 8.5-10.1 [facility] Serum or plasma creatinine m easurement (mass/volume)Ordered By: Jimbo Dash on 06-10-2023 Creatinine [Mass/Vol] 0.87 mg/dL 0.55-1.02 [facility] Comment on above: The validity of the calculated GFR & GFRAA in patients over 70 years has not been determined. Clinical correlation is essential. Serum or plasma urea nitroge n measurement (mass/volume)Ordered By: Jimbo Dash on 06-10-2023 Urea nitrogen [Mass/Vol] 29 mg/dL 7-18 [facility] Thin prep Papanicolaou smear with manual screeningOrdered By: Jimbo Dash on 06-10-2023 Thin prep Papanicolaou smear with manual screening 3.7 g/dL 3.2-5.0 [facility] Thin prep Papanicolaou smear with manual screening 18 U/L 15-37 [facility] Thin prep Papanicolaou smear with manual screening 4 5-15 [facility] Laboratory - Microbiology an d Antimicrobial susceptibilityon 05-09-2023 SARS-CoV-2 (COVID-19) RNA SIRIA+probe Ql (Unsp spec) Not detected [facility] No Panel Informationon 05-09 Influenza Types A,B Rapid (Clinic) Not detected [facility] Absolute lymphocyte countOrd ered By: HEALTH ASSESSMENT on 02-01-2023 Lymphocytes Auto (Unsp spec) [#/Vol] 1.32 10*3/uL 0.83-4.51 [facility] Absolute reticulocyte countO rdered By: HEALTH ASSESSMENT on 02-01-2023 Reticulocytes (Bld) [#/Vol] 0.00 10*3/uL 0-5 [facility] Basophil percentageOrdered B y: HEALTH ASSESSMENT on 02-01-2023 Basophil percentage 3.2 mg/dL 2.5-4.9 [facility] Bilirubin [Mass/Vol] 0.50 mg/dL 0.20-1.00 [facility] Comment on above: For patients on eltr ombopag therapy, use of Dimension [place] TBIL is not recommended. Chloride [Moles/Vol] 107 mmol/L 98-107 [facility] Cholesterol [Mass/Vol] 267 mg/dL <200 [facility] Comment on above: <200 mg/dL Desirable 200-240 mg/dL Borderline >240 mg/dL High Risk Glucose [Mass/Vol] 85 mg/dL 74-106 [facility] LDH [Catalytic activity/Vol] 173 U/L 84-246 [facility] Neutrophils (Bld) [#/Vol] 3.1 10*3/uL 2.0-7.7 [facility] Potassium [Moles/Vol] 3.7 mmol/L 3.5-5.1 [facility] Protein [Mass/Vol] 6.9 g/dL 6.4-8.2 [facility] Sodium [Moles/Vol] 140 mmol/L 136-145 [facility] Triglyceride [Mass/Vol] 284 mg/dL <199 [facility] Comment on above: The drugs N-Acetylcy steine and Metamizole may falsely depress this assay.Serum Triglycerides Reference Interval Normal <150 mg/dL Borderline high 150 - 199 mg/dL High 200 - 499 mg/dL Very High > or = 500 mg/dL WBC (Bld) [#/Vol] 5.2 10*3/uL 4.4-11.0 [facility] Bilirubin Test strip Ql (U)O rdered By: HEALTH ASSESSMENT on 02-01-2023 Bilirubin Ql (U) Negative Negative [facility] Blood erythrocytes count (nu mber/volume)Ordered By: HEALTH ASSESSMENT on 02-01-2023 RBC (Bld) [#/Vol] 4.85 10*6/uL 4.2-5.4 [facility] Blood hemoglobin measurement (mass/volume)Ordered By: HEALTH ASSESSMENT on 02-01-2023 Hemoglobin (Bld) [Mass/Vol] 14.2 g/dL 12.0-15.0 [facility] Blood platelet mean volumeOr dered By: HEALTH ASSESSMENT on 02-01-2023 Platelet mean volume (Bld) [Entitic vol] 10.1 fL 6.2-12.0 [facility] Determination of erythrocyte mean corpuscular volume (MCV)Ordered By: HEALTH ASSESSMENT on 02-01-2023 MCV (RBC) [Entitic vol] 90.5 fL 81-99 [facility] Direct bilirubinOrdered By: HEALTH ASSESSMENT on 02-01-2023 Bilirubin.direct [Mass/Vol] 0.11 mg/dL 0.00-0.30 [facility] Hematocrit Auto (Bld) [Volum e fraction]Ordered By: HEALTH ASSESSMENT on 02-01-2023 Hematocrit (Bld) [Volume fraction] 43.9 % 37-47 [facility] Ketones Test strip Ql (U)Ord ered By: HEALTH ASSESSMENT on 02-01-2023 Ketones Ql (U) Negative Negative [facility] Laboratory - Chemistry and C hemistry - challengeOrdered By: HEALTH ASSESSMENT on 02-01-2023 ALP [Catalytic activity/Vol] 131 U/L 45-117 [facility] ALT [Catalytic activity/Vol] 41 U/L 13-56 [facility] Cholesterol.total/Kayla sterol in HDL [Mass ratio] 4.00 {ratio} [facility] CO2 [Moles/Vol] 31.0 mmol/L 21.0-32.0 [facility] Globulin (S) [Mass/Vol] 3.4 g/dL 2.2-4.2 [facility] Urea nitrogen/Creatinine [Mass ratio] 19.7 mg/mg 10-20 [facility] Laboratory - Hematology and Cell countsOrdered By: HEALTH ASSESSMENT on 02-01-2023 Erythrocyte distribution width (RBC) [Entitic vol] 42.2 fL 35.1-43.9 [facility] Erythrocyte distribution width (RBC) [Ratio] 12.8 % 11.6-14.6 [facility] MCH (RBC) [Entitic mass] 29.3 pg 27.0-32.0 [facility] Nucleated RBC/100 WBC (Bld) [Ratio] 0 % 0-5 [facility] MCHC Auto (RBC) [Mass/Vol]Or dered By: HEALTH ASSESSMENT on 02-01-2023 MCHC (RBC) [Mass/Vol] 32.3 g/dL 32-36 [facility] Nitrite Test strip Ql (U)Ord ered By: HEALTH ASSESSMENT on 02-01-2023 Nitrite Ql (U) Negative Negative [facility] No Panel InformationOrdered By: HEALTH ASSESSMENT on 02-01-2023 Estimated GFR (MDRD) Amer 87 mL/min >60 [facility] Comment on above: GFR Calc Estimated GFR (MDRD) Non-Af Amer 72 mL/min >60 [facility] Comment on above: Non- GFR Calc Platelets bldOrdered By: HEA LT ASSESSMENT on 02-01-2023 Platelets (Bld) [#/Vol] 237 10*3/uL 150-450 [facility] Protein Test strip Ql (U)Ord ered By: HEALTH ASSESSMENT on 02-01-2023 Protein Ql (U) Negative Negative [facility] Segmented neutrophils/100 WB C Auto (Bld)Ordered By: HEALTH ASSESSMENT on 02-01-2023 Segmented neutrophils/100 WBC (Bld) 60.4 % 47-70 [facility] Serum or plasma albumin cooper urement (mass/volume)Ordered By: HEALTH ASSESSMENT on 02-01-2023 Albumin [Mass/Vol] 3.5 g/dL 3.2-5.0 [facility] Serum or plasma albumin/glob ulin mass ratioOrdered By: HEALTH ASSESSMENT on 02-01-2023 Albumin/Globulin [Mass ratio] 1.0 {ratio} 0.9-2.4 [facility] Serum or plasma calcium cooper urement (mass/volume)Ordered By: HEALTH ASSESSMENT on 02-01-2023 Calcium [Mass/Vol] 8.9 mg/dL 8.5-10.1 [facility] Serum or plasma cholesterol in HDL measurement (mass/volume)Ordered By: HEALTH ASSESSMENT on 02-01-2023 Cholesterol in HDL [Mass/Vol] 67 mg/dL >40 [facility] Comment on above: The drugs N-Acetylcy steine and Metamizole may falsely depress this assay. Reference Range HDL <40 mg/dL Low HDL Cholesterol HDL >or= 60 mg/dL High HDL Cholesterol Serum or plasma cholesterol in VLDL measurement (mass/volume)Ordered By: HEALTH ASSESSMENT on 02-01-2023 Cholesterol in VLDL [Mass/Vol] 57 mg/dL 5-40 [facility] Serum or plasma creatinine m easurement (mass/volume)Ordered By: HEALTH ASSESSMENT on 02-01-2023 Creatinine [Mass/Vol] 0.86 mg/dL 0.55-1.02 [facility] Comment on above: The validity of the calculated GFR & GFRAA in patients over 70 years has not been determined. Clinical correlation is essential. Serum or plasma low density lipoprotein (LDL) cholesterol measurement (mass/volume)Ordered By: HEALTH ASSESSMENT on 02-01-2023 Cholesterol in LDL [Mass/Vol] 143 mg/dL 0-130 [facility] Serum or plasma urea nitroge n measurement (mass/volume)Ordered By: HEALTH ASSESSMENT on 02-01-2023 Urea nitrogen [Mass/Vol] 17 mg/dL 7-18 [facility] Serum or plasma uric acid me asurement (mass/volume)Ordered By: HEALTH ASSESSMENT on 02-01-2023 Urate [Mass/Vol] 3.1 mg/dL 2.6-6.0 [facility] Comment on above: The drugs N-Acetylcy steine and Metamizole may falsely depress this assay. Thin prep Papanicolaou smear with manual screeningOrdered By: HEALTH ASSESSMENT on 02-01-2023 Thin prep Papanicolaou smear with manual screening 21 U/L 15-37 [facility] Thin prep Papanicolaou smear with manual screening 2 5-15 [facility] Urine blood detectionOrdered By: HEALTH ASSESSMENT on 02-01-2023 RBC Ql (U) 10 /ul Negative [facility] Urine clarityOrdered By: HEA LTH ASSESSMENT on 02-01-2023 Clarity (U) Clear Clear [facility] Urine color determinationOrd ered By: HEALTH ASSESSMENT on 02-01-2023 Color (U) Yellow Yellow [facility] Urine glucose detectionOrder ed By: HEALTH ASSESSMENT on 02-01-2023 Glucose Ql (U) Normal mg/dl Normal [facility] Urine leukocyte esterase det ection by dipstickOrdered By: HEALTH ASSESSMENT on 02-01-2023 Leukocyte esterase Test strip Ql (U) 100 /ul Negative [facility] Urine pHOrdered By: HEALTH A SSESSMENT on 02-01-2023 pH (U) 5.0 [pH] 5.0 - 8.0 [facility] Urine specific gravity measu rementOrdered By: HEALTH ASSESSMENT on 02-01-2023 Specific gravity (U) [Rel density] 1.015 1.002-1.030 [facility] Urobilinogen Auto test strip Ql (U)Ordered By: HEALTH ASSESSMENT on 02-01-2023 Urobilinogen Ql (U) Normal mg/dl Normal [facility] Basophil percentageOrdered B y: Jimbo Dash on 11-05-2022 Cholesterol [Mass/Vol] 194 mg/dL <200 [facility] Comment on above: <200 mg/dL Desirable 200-240 mg/dL Borderline >240 mg/dL High Risk Triglyceride [Mass/Vol] 205 mg/dL <199 [facility] Comment on above: The drugs N-Acetylcy steine and Metamizole may falsely depress this assay.Serum Triglycerides Reference Interval Normal <150 mg/dL Borderline high 150 - 199 mg/dL High 200 - 499 mg/dL Very High > or = 500 mg/dL Serum or plasma cholesterol in HDL measurement (mass/volume)Ordered By: Jimbo Dsah on 11-05-2022 Cholesterol in HDL [Mass/Vol] 68 mg/dL >40 [facility] Comment on above: The drugs N-Acetylcy steine and Metamizole may falsely depress this assay. Reference Range HDL <40 mg/dL Low HDL Cholesterol HDL >or= 60 mg/dL High HDL Cholesterol Serum or plasma cholesterol in VLDL measurement (mass/volume)Ordered By: Jimbo Dash on 11-05-2022 Cholesterol in VLDL [Mass/Vol] 41 mg/dL 5-40 [facility] Serum or plasma low density lipoprotein (LDL) cholesterol measurement (mass/volume)Ordered By: Jimbo Dash on 11-05-2022 Cholesterol in LDL [Mass/Vol] 85 mg/dL 0-130 [facility] Absolute lymphocyte countOrd ered By: Dr. Goldberg on 10-03-2022 Lymphocytes Auto (Unsp spec) [#/Vol] 1.63 10*3/uL 0.83-4.51 [facility] Basophil percentageOrdered B y: Dr. Goldberg on 10-03-2022 Basophils/100 WBC (Bld) 1.0 % 0-1 [facility] Chloride [Moles/Vol] 111 mmol/L 98-107 [facility] Eosinophils/100 WBC (Bld) 8.1 % 0-5 [facility] Glucose [Mass/Vol] 93 mg/dL 74-106 [facility] Neutrophils (Bld) [#/Vol] 2.6 10*3/uL 2.0-7.7 [facility] Neutrophils/100 WBC (Bld) 50.2 % 47-70 [facility] Potassium [Moles/Vol] 4.2 mmol/L 3.5-5.1 [facility] Sodium [Moles/Vol] 141 mmol/L 136-145 [facility] WBC (Bld) [#/Vol] 5.2 10*3/uL 4.4-11.0 [facility] Blood erythrocytes count (nu mber/volume)Ordered By: Dr. Goldberg on 10-03-2022 RBC (Bld) [#/Vol] 4.85 10*6/uL 4.2-5.4 [facility] Blood hemoglobin measurement (mass/volume)Ordered By: Dr. Goldberg on 10-03-2022 Hemoglobin (Bld) [Mass/Vol] 14.3 g/dL 12.0-15.0 [facility] Blood lymphocytes/100 leukoc ytesOrdered By: Dr. Goldberg on 10-03-2022 Lymphocytes/100 WBC (Bld) 31.4 % 19-41 [facility] Blood monocytes/100 leukocyt esOrdered By: Dr. Goldberg on 10-03-2022 Monocytes/100 WBC (Bld) 8.7 % 0-10 [facility] Blood platelet mean volumeOr dered By: Dr. Goldberg on 10-03-2022 Platelet mean volume (Bld) [Entitic vol] 9.5 fL 6.2-12.0 [facility] Determination of erythrocyte mean corpuscular volume (MCV)Ordered By: Dr. Goldberg on 10-03-2022 MCV (RBC) [Entitic vol] 92.6 fL 81-99 [facility] Hematocrit Auto (Bld) [Volum e fraction]Ordered By: Dr. Goldberg on 10-03-2022 Hematocrit (Bld) [Volume fraction] 44.9 % 37-47 [facility] Laboratory - Chemistry and C hemistry - challengeOrdered By: Dr. Goldberg on 10-03-2022 CO2 [Moles/Vol] 29.0 mmol/L 21.0-32.0 [facility] Urea nitrogen/Creatinine [Mass ratio] 20.2 mg/mg 10-20 [facility] - Hematology and Cell countsOrdered By: Dr. Goldberg on 10-03-2022 Erythrocyte distribution width (RBC) [Entitic vol] 43.6 fL 35.1-43.9 [facility] Erythrocyte distribution width (RBC) [Ratio] 12.9 % 11.6-14.6 [facility] Immature granulocytes/100 WBC (Bld) 0.600 % 0.0-0.9 [facility] Comment on above: IG% - Immature Granu locytes (promyelocytes, myelocytes and metamyelocytes) > 1% indicates that a LEFT SHIFT is Present. MCH (RBC) [Entitic mass] 29.5 pg 27.0-32.0 [facility] Nucleated RBC/100 WBC (Bld) [Ratio] 0 % 0-5 [facility] MCHC Auto (RBC) [Mass/Vol]Or dered By: Dr. Goldberg on 10-03-2022 MCHC (RBC) [Mass/Vol] 31.8 g/dL 32-36 [facility] No Panel InformationOrdered By: Dr. Goldberg on 10-03-2022 Activated Clotting Time 197 sec 74-137 [facility] Estimated Creatinine Clearance Calc 57.69 ml/min [facility] Estimated GFR (MDRD) Amer 84 mL/min >60 [facility] Comment on above: GFR Calc Estimated GFR (MDRD) Non-Af Amer 70 mL/min >60 [facility] Comment on above: Non- GFR Calc Platelets bldOrdered By: Dr. Goldberg on 10-03-2022 Platelets (Bld) [#/Vol] 221 10*3/uL 150-450 [facility] Serum or plasma calcium cooper urement (mass/volume)Ordered By: Dr. Goldberg on 10-03-2022 Calcium [Mass/Vol] 9.2 mg/dL 8.5-10.1 [facility] Serum or plasma creatinine m easurement (mass/volume)Ordered By: Dr. Goldberg on 10-03-2022 Creatinine [Mass/Vol] 0.89 mg/dL 0.55-1.02 [facility] Comment on above: The validity of the calculated GFR & GFRAA in patients over 70 years has not been determined. Clinical correlation is essential. Serum or plasma urea nitroge n measurement (mass/volume)Ordered By: Dr. Goldberg on 10-03-2022 Urea nitrogen [Mass/Vol] 18 mg/dL 7-18 [facility] Thin prep Papanicolaou smear with manual screeningOrdered By: Dr. Goldberg on 10-03-2022 Thin prep Papanicolaou smear with manual screening 1 5-15 [facility] Basophil percentageOrdered B y: Dr. Dash on 08-01-2022 Bilirubin [Mass/Vol] 0.40 mg/dL 0.20-1.00 [facility] Comment on above: For patients on eltr ombopag therapy, use of Dimension [place] TBIL is not recommended. Chloride [Moles/Vol] 109 mmol/L 98-107 [facility] Cholesterol [Mass/Vol] 251 mg/dL <200 [facility] Comment on above: <200 mg/dL Desirable 200-240 mg/dL Borderline >240 mg/dL High Risk Glucose [Mass/Vol] 83 mg/dL 74-106 [facility] Potassium [Moles/Vol] 4.0 mmol/L 3.5-5.1 [facility] Protein [Mass/Vol] 7.0 g/dL 6.4-8.2 [facility] Sodium [Moles/Vol] 140 mmol/L 136-145 [facility] Triglyceride [Mass/Vol] 134 mg/dL <199 [facility] Comment on above: The drugs N-Acetylcy steine and Metamizole may falsely depress this assay.Serum Triglycerides Reference Interval Normal <150 mg/dL Borderline high 150 - 199 mg/dL High 200 - 499 mg/dL Very High > or = 500 mg/dL Laboratory - Chemistry and C hemistry - challengeOrdered By: Dr. Dash on 08-01-2022 ALP [Catalytic activity/Vol] 130 U/L 45-117 [facility] ALT [Catalytic activity/Vol] 33 U/L 13-56 [facility] CO2 [Moles/Vol] 25.0 mmol/L 21.0-32.0 [facility] Globulin (S) [Mass/Vol] 3.3 g/dL 2.2-4.2 [facility] Urea nitrogen/Creatinine [Mass ratio] 20.0 mg/mg 10-20 [facility] No Panel InformationOrdered By: Dr. Dash on 08-01-2022 Estimated GFR (MDRD) Amer 83 mL/min >60 [facility] Comment on above: GFR Calc Estimated GFR (MDRD) Non-Af Amer 69 mL/min >60 [facility] Comment on above: Non- GFR Calc Serum or plasma albumin cooper urement (mass/volume)Ordered By: Dr. Dash on 08-01-2022 Albumin [Mass/Vol] 3.7 g/dL 3.2-5.0 [facility] Serum or plasma albumin/glob ulin mass ratioOrdered By: Dr. Dash on 08-01-2022 Albumin/Globulin [Mass ratio] 1.1 {ratio} 0.9-2.4 [facility] Serum or plasma calcium cooper urement (mass/volume)Ordered By: Dr. Dash on 08-01-2022 Calcium [Mass/Vol] 9.3 mg/dL 8.5-10.1 [facility] Serum or plasma cholesterol in HDL measurement (mass/volume)Ordered By: Dr. Dash on 08-01-2022 Cholesterol in HDL [Mass/Vol] 66 mg/dL >40 [facility] Comment on above: The drugs N-Acetylcy steine and Metamizole may falsely depress this assay. Reference Range HDL <40 mg/dL Low HDL Cholesterol HDL >or= 60 mg/dL High HDL Cholesterol Serum or plasma cholesterol in VLDL measurement (mass/volume)Ordered By: Dr. Dash on 08-01-2022 Cholesterol in VLDL [Mass/Vol] 27 mg/dL 5-40 [facility] Serum or plasma creatinine m easurement (mass/volume)Ordered By: Dr. Dash on 08-01-2022 Creatinine [Mass/Vol] 0.90 mg/dL 0.55-1.02 [facility] Comment on above: The validity of the calculated GFR & GFRAA in patients over 70 years has not been determined. Clinical correlation is essential. Serum or plasma low density lipoprotein (LDL) cholesterol measurement (mass/volume)Ordered By: Dr. Dash on 08-01-2022 Cholesterol in LDL [Mass/Vol] 158 mg/dL 0-130 [facility] Serum or plasma urea nitroge n measurement (mass/volume)Ordered By: Dr. Dash on 08-01-2022 Urea nitrogen [Mass/Vol] 18 mg/dL 7-18 [facility] Thin prep Papanicolaou smear with manual screeningOrdered By: Dr. Dash on 08-01-2022 Thin prep Papanicolaou smear with manual screening 21 U/L 15-37 [facility] Thin prep Papanicolaou smear with manual screening 6 5-15 [facility] Calcium oxalate dihydrate cr ystals detection in stone by infrared spectroscopyOrdered By: Dr. Nicole on 02-15-2022 Calcium oxalate dihydrate crystals Infrared spectroscopy Ql (Stone) 30 % [facility] Color of specimen determinat ionOrdered By: Dr. Nicole on 02-15-2022 Color (Unsp spec) KOEHLER [facility] Laboratory - Miscellaneous t estsOrdered By: Dr. Nicole on 02-15-2022 Service comment (Unsp spec) [Interp] See comment [facility] Comment on above: Calculus received we t. Wet calculi must be dried beforeanalysis, which delays reporting of results. Leaving calculiwet (such as water, saline, blood, urine) may lead tochanges in composition. Physician questions regarding Calculi Analysis contactLabCorp at: [phone]. Calculi report will follow via computer, mail or courierdelivery. Measurement of weight of sto neOrdered By: Dr. Nicole on 02-15-2022 Weight (Stone) 41 mg [facility] No Panel InformationOrdered By: Dr. Nicole on 02-15-2022 Stone Analysis (T) See comment [facility] Comment on above: Percentage (Represen ts the % composition) Stone Calcium Oxalate Monohydrate 70 % [facility] Origin of StoneOrdered By: Annette Nicole on 02-15-2022 Origin Nom (Stone) URINARY BLADDER [facility] Size of stoneOrdered By: Dr. Nicole on 02-15-2022 Size (Stone) [Entitic vol] 3x3 mm [facility] Comment on above: Multiple pieces rece ived. Dimensions of the largest piece reported. Thin prep Papanicolaou smear with manual screeningOrdered By: Dr. Nicole on 02-15-2022 Thin prep Papanicolaou smear with manual screening See comment [facility] Comment on above: Photograph will foll ow under a separate cover Absolute lymphocyte counton 01-12-2022 Lymphocytes Auto (Unsp spec) [#/Vol] 0.55 10*3/uL 0.83-4.51 [facility] Work Phone: Absolute reticulocyte counto n 01-12-2022 Reticulocytes (Bld) [#/Vol] 0.00 10*3/uL 0-5 [facility] Work Phone: Basophil percentageon 2021 Basophil percentage 3.7 mg/dL 2.5-4.9 [facility] Work Phone: Bilirubin [Mass/Vol] 0.60 mg/dL 0.20-1.00 [facility] Work Phone: Comment on above: For patients on eltr ombopag therapy, use of Dimension [place] TBIL is not recommended. Chloride [Moles/Vol] 108 mmol/L 98-107 [facility] Work Phone: Cholesterol [Mass/Vol] 217 mg/dL <200 [facility] Work Phone: Comment on above: <200 mg/dL Desirable 200-240 mg/dL Borderline >240 mg/dL High Risk Glucose [Mass/Vol] 110 mg/dL 74-106 [facility] Work Phone: Comment on above: Fasting Glucose resu lt from 100 to 125 mg/dL suggests IMPAIRED HOMEOSTASIS per A.D.A. criteria. Neutrophils (Bld) [#/Vol] 4.2 10*3/uL 2.0-7.7 [facility] Work Phone: [phone] Potassium [Moles/Vol] 3.9 mmol/L 3.5-5.1 [facility] Work Phone: [phone] Protein [Mass/Vol] 7.3 g/dL 6.4-8.2 [facility] Work Phone: [phone] Sodium [Moles/Vol] 143 mmol/L 136-145 [facility] Work Phone: [phone] Triglyceride [Mass/Vol] 134 mg/dL <199 [facility] Work Phone: Comment on above: The drugs N-Acetylcy steine and Metamizole may falsely depress this assay.Serum Triglycerides Reference Interval Normal <150 mg/dL Borderline high 150 - 199 mg/dL High 200 - 499 mg/dL Very High > or = 500 mg/dL WBC (Bld) [#/Vol] 5.5 10*3/uL 4.4-11.0 [facility] Work Phone: [phone] Bilirubin Test strip Ql (U)o n 01-12-2022 Bilirubin Ql (U) Negative Negative [facility] Work Phone: [phone] Blood erythrocytes count (nu mber/volume)on 01-12-2022 RBC (Bld) [#/Vol] 4.76 10*6/uL 4.2-5.4 [facility] Work Phone: [phone] Blood hemoglobin measurement (mass/volume)on 01-12-2022 Hemoglobin (Bld) [Mass/Vol] 14.3 g/dL 12.0-15.0 [facility] Work Phone: [phone] Blood platelet mean volumeon 01-12-2022 Platelet mean volume (Bld) [Entitic vol] 10.4 fL 6.2-12.0 [facility] Work Phone: Determination of erythrocyte mean corpuscular volume (MCV)on 01-12-2022 MCV (RBC) [Entitic vol] 92.9 fL 81-99 [facility] Work Phone: Direct bilirubinon 2 Bilirubin.direct [Mass/Vol] 0.17 mg/dL 0.00-0.30 [facility] Work Phone: Hematocrit Auto (Bld) [Volum e fraction]on 01-12-2022 Hematocrit (Bld) [Volume fraction] 44.2 % 37-47 [facility] Work Phone: Ketones Test strip Ql (U)on 01-12-2022 Ketones Ql (U) Negative Negative [facility] Work Phone: [phone] Laboratory - Chemistry and C hemistry - challengeon 01-12-2022 ALP [Catalytic activity/Vol] 137 U/L 45-117 [facility] Work Phone: [phone] ALT [Catalytic activity/Vol] 33 U/L 13-56 [facility] Work Phone: [phone] Cholesterol.total/Kayla sterol in HDL [Mass ratio] 2.70 {ratio} [facility] Work Phone: CO2 [Moles/Vol] 26.0 mmol/L 21.0-32.0 [facility] Work Phone: Globulin (S) [Mass/Vol] 3.7 g/dL 2.2-4.2 [facility] Work Phone: [phone] Urea nitrogen/Creatinine [Mass ratio] 17.1 mg/mg 10-20 [facility] Work Phone: Laboratory - Hematology and Cell countson 01-12-2022 Erythrocyte distribution width (RBC) [Entitic vol] 43.1 fL 35.1-43.9 [facility] Work Phone: Erythrocyte distribution width (RBC) [Ratio] 12.6 % 11.6-14.6 [facility] Work Phone: MCH (RBC) [Entitic mass] 30.0 pg 27.0-32.0 [facility] Work Phone: Nucleated RBC/100 WBC (Bld) [Ratio] 0 % 0-5 [facility] Work Phone: MCHC Auto (RBC) [Mass/Vol]on 01-12-2022 MCHC (RBC) [Mass/Vol] 32.4 g/dL 32-36 [facility] Work Phone: Nitrite Test strip Ql (U)on 01-12-2022 Nitrite Ql (U) Negative Negative [facility] Work Phone: No Panel Informationon 01-12 Estimated GFR (MDRD) Amer 86 mL/min >60 [facility] Work Phone: Comment on above: GFR Calc Estimated GFR (MDRD) Non-Af Amer 71 mL/min >60 [facility] Work Phone: Comment on above: Non- GFR Calc Platelets bldon 01-12-2022 Platelets (Bld) [#/Vol] 234 10*3/uL 150-450 [facility] Work Phone: Protein Test strip Ql (U)on 01-12-2022 Protein Ql (U) Negative Negative [facility] Work Phone: Segmented neutrophils/100 WB C Auto (Bld)on 01-12-2022 Segmented neutrophils/100 WBC (Bld) 77.1 % 47-70 [facility] Work Phone: Serum or plasma albumin cooper urement (mass/volume)on 01-12-2022 Albumin [Mass/Vol] 3.6 g/dL 3.2-5.0 [facility] Work Phone: Serum or plasma albumin/glob ulin mass ratioon 01-12-2022 Albumin/Globulin [Mass ratio] 1.0 {ratio} 0.9-2.4 [facility] Work Phone: Serum or plasma calcium cooper urement (mass/volume)on 01-12-2022 Calcium [Mass/Vol] 9.3 mg/dL 8.5-10.1 [facility] Work Phone: Serum or plasma cholesterol in HDL measurement (mass/volume)on 01-12-2022 Cholesterol in HDL [Mass/Vol] 81 mg/dL >40 [facility] Work Phone: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 (Body Mass Index) 25.39 kg/m2 Camilagurpreet Stewart LPN [facility] Work Phone: 12-10-2016 13:52-0400 Body Temperature 98.2 [degF] Camila Cardenasana HASSANN [facility] Work Phone: 12-10-2016 13:52-0400 BP Diastolic 72 mm[Hg] Camila Cardenasana ZAVALA [facility] Work Phone: 12-10-2016 13:52-0400 BP Systolic 108 mm[Hg] Camilagurpreet Stewart LPN [facility] Work Phone: 12-10-2016 13:52-0400 Height 165.1 cm Camila Stewart SUPERVISOR/PORT DIRECTOR [facility] Work Phone: 12-10-2016 13:52-0400 Pulse (Heart Rate) 91 /min Camila Cardenasana HASSANN [facility] Work Phone: 12-10-2016 13:52-0400 Respiratory Rate 12 /min Camila Terry HASSANN [facility] Work Phone: 12-10-2016 13:52-0400 Weight 69.22 kg Camila Stewart SUPERVISOR/PORT DIRECTOR [facility] Work Phone: 10-29-2016 10:59-0400 BMI (Body Mass Index) 25.56 kg/m2 [facility] Work Phone: 10-29-2016 10:59-0400 Body Temperature 98.6 [degF] [facility] Work Phone: 10-29-2016 10:59-0400 BP Diastolic 76 mm[Hg] [facility] Work Phone: 10-29-2016 10:59-0400 BP Systolic 108 mm[Hg] [facility] Work Phone: 10-29-2016 10:59-0400 Height 165.1 cm [facility] Work Phone: 10-29-2016 10:59-0400 Pulse (Heart Rate) 89 /min [facility] Work Phone: 10-29-2016 10:59-0400 Pulse Oximetry 98 % [facility] Work Phone: 10-29-2016 10:59-0400 Respiratory Rate 12 /min [facility] Work Phone: 10-29-2016 10:59-0400 Weight 69.67 kg [facility] Work Phone: Encounters Encounter Date Encounter Type Care Provider Facility Start: 12-24-2024 ambulatory [facility] Facility:[facility] Start: 12-23-2024 End: 12-23-2024 Telephone encounter Fátima Santillan MD Work Phone: [facility] Start: 12-16-2024 ambulatory Jimbo Dash Facility:[facility] Start: 12-14-2024 End: 12-17-2024 Evaluation and management of inpatient Anthony Aponte DO Work Phone: [facility] Cardiac Vascular Progressive Care Unit PCC 1C Comment on above: Acute deep vein thro mbosis (DVT) of proximal vein of left lower extremity (HCC) (Primary Dx); Left leg swelling Start: 12-14-2024 ambulatory FÁTIMA SANTILLAN [facility] Start: 12-14-2024 End: 12-14-2024 Subsequent hospital visit by physician Mri Radio [facility] (I-Stat/1.5t) Work Phone: Radiology Comment on above: Infection in abdomen (HCC) [K65.9] Start: 12-12-2024 End: 12-13-2024 Emergency department patient visit JIMBO DASH Facility:[facility] Start: 12-11-2024 End: 12-11-2024 Emergency department patient visit Dr. Jimbo Dash MD Work Phone: -Emergency Department Work Phone: Start: 12-08-2024 End: 12-08-2024 Subsequent hospital visit by physician Xr [facility] [place] Work Phone: Radiology Comment on above: Injury of toe on lef t foot, initial encounter [S99.922A] Start: 12-08-2024 End: 12-08-2024 Patient encounter procedure Marguerite Daily APRN.ANESTHESIOLOGY CRNA Work Phone: [facility] [place] Comment on above: Closed nondisplaced fracture of distal phalanx of lesser toe of left foot, initial encounter (Primary Dx); Injury of toe on left foot, initial encounter Start: 12-08-2024 End: 12-08-2024 ambulatory JIMBO DASH Facility[facility] Start: 11-23-2024 End: 11-23-2024 Telephone encounter Fátima Santillan MD Work Phone: Urology Start: 11-20-2024 End: 11-23-2024 ambulatory Fátima Santillan MD Work Phone: Urology Comment on above: Mri Start: 10-27-2024 Non-patient / Non-visit Dr. April skaggs MD -[facility] Work Phone: Start: 10-23-2024 End: 10-23-2024 Patient encounter procedure Fátima Santillan MD Work Phone: Urology Comment on above: Bladder stone (Prima ry Dx); Erosion of bladder suspension mesh, sequela Start: 10-23-2024 End: 10-23-2024 ambulatory FÁTIMA SANTILLAN Facility:[facility] Start: 10-15-2024 End: 10-15-2024 Telephone encounter Elida Angelo APRN.ANESTHESIOLOGY CRNA Work Phone: Urology Comment on above: Results Start: 10-13-2024 End: 10-13-[address] Jimbo Dash MD Work Phone: [facility] Work Phone: Start: 10-13-2024 End: 10-13-[address] Jimbo Dash MD Work Phone: -[facility] Work Phone: Start: 10-13-2024 End: 10-13-2024 ambulatory HODA CASTRO Facility:[facility] Start: 09-25-2024 End: 09-25-2024 Telephone encounter Elida Angelo APRN.ANESTHESIOLOGY CRNA Work Phone: Urology Comment on above: Patient Update Start: 09-24-2024 End: 09-24-2024 ambulatory ELIDA VERITOJadiel Facility:[facility] Start: 09-24-2024 End: 09-24-2024 Office consultation new/estab patient 60 min Elidaranjana Angelo LEARNING DEVELOPER.ANESTHESIOLOGY CRNA Work Phone: Urology Comment on above: Bladder stone Start: 09-08-2024 End: 09-08-2024 ambulatory Ric Taylor LEARNING DEVELOPER.ANESTHESIOLOGY CRNA Work Phone: Gynecology Comment on above: Referal Start: 08-26-2024 End: 08-26-2024 Telemedicine consultation with patient Ric Taylor LEARNING DEVELOPER.ANESTHESIOLOGY CRNA Work Phone: Gynecology Start: 08-26-2024 End: 08-26-2024 ambulatory Ric Taylor LEARNING DEVELOPER.ANESTHESIOLOGY CRNA Work Phone: Gynecology Comment on above: 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 Reji Goldberg MD -[facility] Work Phone: Start: 08-17-2024 End: 08-17-2024 ambulatory Jimbo Dash Facility:[facility] Start: 08-17-2024 End: 08-17-[address] Jimbo Dash MD -[facility] Start: 08-17-2024 End: 08-17-2024 ambulatory Jimbo Dash Facility:[facility] Start: 07-14-2024 Non-patient / Non-visit Dr. Reji chavez MD -[facility] Start: 07-14-2024 End: 07-14-[address] Jimbo Dash MD Work Phone: [facility] Work Phone: Start: 07-14-2024 End: 07-14-2024 Patient encounter procedure Martine Powernixon [facility] -Cardiovascular Services Work Phone: Start: 07-14-2024 End: 07-14-2024 ambulatory Jimbo Dash Facility:[facility] Start: 07-08-2024 End: 07-08-[address] Jimbo Dash MD Work Phone: [facility] Work Phone: Start: 07-08-2024 End: 07-08-[address] Jimbo Dash MD -Laboratory Work Phone: Start: 07-08-2024 End: 07-08-2024 ambulatory Jimbo Dash Facility:[facility] Start: 06-11-2024 ambulatory Jimbo Dash Facility:[facility] Start: 06-11-2024 Non-patient / Non-visit Dr. Reji chavez MD -[facility] Start: 06-11-2024 End: 06-11-2024 Emergency department patient visit Dr. Rupert Yeung -Emergency Department Work Phone: Start: 05-21-2024 End: 05-21-[address] Jimbo Dash MD -Laboratory, Specimen Work Phone: Start: 05-21-2024 End: 05-21-[address] Jimbo Dash MD -Radiology, [place] Work Phone: Start: 05-21-2024 End: 05-21-2024 ambulatory Jimbo Dash Facility:[facility] Start: 03-13-2024 End: 03-13-2024 Emergency department patient visit Jimbo Dash Facility:[facility] Start: 02-27-2024 End: 02-27-2024 ambulatory Jimbo Dash Facility:[facility] Start: 02-14-2024 ambulatory Jimbo Dash Facility:[facility] Start: 01-27-2024 End: 01-27-2024 ambulatory Jimbo Dash Facility:[facility] Start: 12-24-2023 ambulatory Jimbo Dash Facility:[facility] Start: 12-24-2023 End: 12-24-2023 ambulatory Jimbo Dash Facility:[facility] Start: 08-12-2023 End: 08-12-[address] Jimbo Dash Work Phone: [facility] Work Phone: Start: 08-12-2023 End: 08-12-[address] Jimbo Dash Work Phone: [facility]-MRI - [facility] Work Phone: Start: 07-10-2023 End: 07-10-[address] Jimbo Dash Work Phone: [facility] Work Phone: Start: 07-10-2023 End: 07-10-[address] [facility] Start: 06-10-2023 End: 06-10-[address] Jimbo Dash Work Phone: [facility] Work Phone: Start: 06-10-2023 End: 06-10-[address] Jimbo Dash Work Phone: [facility]-Laboratory Work Phone: Start: 05-09-2023 End: 05-09-[address] Jimbo Dash Work Phone: [facility] Work Phone: Start: 04-11-2023 End: 04-11-[address] Jimbo Dash Work Phone: [facility] Work Phone: Start: 04-11-2023 End: 04-11-[address] Jimbo Dash Work Phone: [facility]-Outpatient Bone Densitometry Work Phone: Start: 04-05-2023 Non-patient / Non-visit Dr. Kings Dash Work Phone: [facility] Start: 04-05-2023 End: 04-05-[address] Jimbo Dash Work Phone: [facility] Work Phone: Start: 04-05-2023 End: 04-05-[address] Jimbo Dash Work Phone: [facility]-Cardiovascular Services Work Phone: Start: 02-01-[address] Jimbo copeland Work Phone: [facility]-Laboratory Work Phone: Start: 11-05-2022 End: 11-05-[address] Jimbo Dash Work Phone: [facility] Work Phone: Start: 11-05-2022 End: 11-05-[address] Jimbo Dash Work Phone: [facility] Start: 10-25-2022 End: 10-25-[address] Jimbo Dash Work Phone: [facility] Work Phone: Start: 10-03-2022 End: 10-03-2022 Admission to same day surgery center Dr. Jimbo Dash Work Phone: [facility]-Quality Assurance Associate/Special Procedures Start: 10-03-2022 End: 10-03-[address] Jimbo Dash Work Phone: [facility] Work Phone: Start: 10-03-2022 Non-patient / Non-visit Dr. Kings Dash Work Phone: [facility] Start: 09-17-2022 ambulatory Walt EISENBERG RN.ANESTHESIOLOGY CRNA Work Phone: Urogynecology Comment on above: Operative report Start: 09-17-2022 E-mail encounter fro m caregiver Walt Ulrich LEARNING DEVELOPER.ANESTHESIOLOGY CRNA Work Phone: [facility] Start: 08-30-2022 End: 08-30-[address] Jimbo Dash Work Phone: [facility] Vascular Surgery Start: 08-16-2022 End: 08-16-[address] Jimbo Dash Work Phone: [facility] Work Phone: Start: 08-16-2022 End: 08-16-[address] Jimbo Dash Work Phone: [facility] Start: 08-08-2022 End: 08-08-[address] Jimbo Dash Work Phone: [facility] Start: 08-01-2022 End: 08-01-[address] Jimbo Dash Work Phone: [facility] Vascular Surgery Start: 08-01-2022 End: 08-01-[address] Jimbo Dash Work Phone: [facility] Work Phone: Start: 08-01-2022 End: 08-01-[address] Jimbo Dash Work Phone: [facility] Start: 05-09-2022 Non-patient / Non-visit Dr. Kings Dash Work Phone: [facility] Start: 05-09-2022 End: 05-09-[address] Jimbo Dash Work Phone: [facility] Work Phone: Start: 05-09-2022 End: 05-09-[address] Jimbo Dash Work Phone: [facility]-Cardiovascular Services Start: 05-03-2022 End: 05-03-[address] Jimbo Dash Work Phone: [facility] Vascular Surgery Start: 04-30-2022 End: 04-30-2022 Patient encounter procedure Celia Hernandez LEARNING DEVELOPER.ANESTHESIOLOGY CRNA Work Phone: [facility] Comment on above: Dermatitis (Primary Dx) Start: 04-18-2022 End: 04-18-[address] Jimbo Dash Work Phone: [facility] Start: 03-01-2022 Telephone encounter Jimbo Dash MD Work Phone: Urology Comment on above: Referral Information Start: 02-15-2022 End: 02-15-2022 Admission to same day surgery center [facility] Start: 02-15-2022 End: 02-15-[address] Jimbo Dash Work Phone: [facility] Work Phone: Start: 02-12-2022 End: 02-12-[address] Jimbo Dash Work Phone: [facility] Work Phone: Start: 02-12-2022 End: 02-12-[address] Jimbo Dash Work Phone: [facility] Start: 02-09-2022 Non-patient / Non-visit Dr. Kings Dash Work Phone: [facility] Start: 02-09-2022 End: 02-09-2022 Admission to same day surgery center Dr. Jimbo Dash Work Phone: [facility]-Endoscopy Start: 02-09-2022 End: 02-09-[address] Jimbo Dash Work Phone: [facility] Work Phone: Start: 01-12-[address] Jimbo copeland Work Phone: [facility] Health Start: 01-10-2022 End: 01-10-[address] Jimbo Dash Work Phone: [facility] Work Phone: Start: 01-10-2022 End: 01-10-[address] [facility] Start: 12-18-2021 End: 12-18-[address] Jimbo Dash Work Phone: [facility] Work Phone: Start: 12-18-2021 End: 12-18-[address] [facility] Start: 12-18-2021 End: 12-18-[address] Jimbo Dash Work Phone: [facility] Start: 11-21-2021 End: 11-21-[address] Jimbo Dash Work Phone: [facility] Start: 11-06-2021 End: 11-06-2021 Patient encounter procedure [facility] Start: 10-30-2021 Orders Only Bekah martínez LEARNING DEVELOPER.CNM Work Phone: OB/Gynecology Comment on above: Other specified dysp areunia (Primary Dx); Vaginal atrophy; Vaginismus Start: 10-27-2021 Telephone encounter Bekah cotter LEARNING DEVELOPER.CNM Work Phone: OB/Gynecology Comment on above: Results Start: 10-24-2021 Orders Only Bekah martínez LEARNING DEVELOPER.CNM Work Phone: OB/Gynecology Comment on above: Dysuria (Primary Dx) Start: 10-10-2021 ambulatory Bekah martínez LEARNING DEVELOPER.CNM Work Phone: OB/Gynecology Procedures Date Procedure Procedure Detail Performing Clinician Start: 12-17-2024 Basic metabolic pane l calcium total Alen Ordonez DO Work Phone: Start: 12-17-2024 Thromboplastin time partial plasma/whole blood Gala Pa MD Work Phone: Start: 12-16-2024 Thromboplastin time partial plasma/whole blood Gala Pa MD Work Phone: Start: 12-16-2024 FL GUIDANCE OR USE O NLY - NON-RESULTABLE Charissa Short MD Work Phone: Start: 12-16-2024 End: 12-16-2024 Thrmbc dir/w/cath vena cava iliac vein abdl inc Charissa Short MD Work Phone: Start: 12-16-2024 Thromboplastin time partial plasma/whole blood Gala Pa MD Work Phone: Start: 12-16-2024 Cta hrt cornry art/b ypass grfts contrst 3d post Alen Ordonez DO Work Phone: Start: 12-16-2024 ABO and Rh group [Ty pe] in Blood by Confirmatory method Gala Pa MD Work Phone: Start: 12-16-2024 Antibody screen ALEN ORDONEZ Comment on above: Performed By: #### L [id number] ####Industrial Relations Worker: AVERY WORTHINGTON ([id number])[facility] ([facility])[address] [place] [address] Start: 12-16-2024 Basic metabolic pane l calcium total Gala Pa MD Work Phone: Start: 12-16-2024 Blood typing serologic abo Gala Pa MD Work Phone: Start: 12-15-2024 Thromboplastin time partial plasma/whole blood Gala Pa MD Work Phone: Start: 12-15-2024 Thromboplastin time partial plasma/whole blood Gala Pa MD Work Phone: Start: 12-15-2024 Dup-scan xtr veins c omplete bilateral study Clinton Rodriguez PA-C Work Phone: Start: 12-15-2024 Basic metabolic pane l calcium total Clinton [facility] Work Phone: Start: 12-14-2024 Assay of troponin quantitative Riley Mcmillan PRODUCTION CONTROL PEGBOARD CLERK Work Phone: Start: 12-14-2024 Ct angiography chest w/contrast/noncontrast Riley Mcmillan PRODUCTION CONTROL PEGBOARD CLERK Work Phone: Start: 12-14-2024 Comprehensive metabo lic panel Riley Mcmillan PRODUCTION CONTROL PEGBOARD CLERK Work Phone: Start: 12-14-2024 Ecg routine ecg w/le ast 12 lds i&r only Riley Mcmillan PRODUCTION CONTROL PEGBOARD CLERK Work Phone: Start: 12-11-[address] Jimbo Dash MD Work Phone: Start: 12-11-2024 CT of abdominal aort a with contrast Dr. Jimbo Dash MD Work Phone: Start: 12-08-2024 Radex toe minimum 2 views Marguerite Daily APRN.ANESTHESIOLOGY CRNA Work Phone: Start: 10-23-2024 Urnls dip stick/tabl et rgnt auto w/o microscopy áFtima Santillan MD Work Phone: Start: 10-13-2024 CT of pelvis without contrast Dr. Jimbo Dash MD Work Phone: Start: 09-24-2024 BLADDER SCAN Elida longo LEARNING DEVELOPER.ANESTHESIOLOGY CRNA Work Phone: Start: 09-24-2024 Urnls dip stick/tabl et rgnt auto w/o microscopy Elida Angelo LEARNING DEVELOPER.ANESTHESIOLOGY CRNA Work Phone: Start: 07-08-[address] [...] Dr. Jimbo Dash Work Phone: Start: 04-11-2023 End: 04-11-[address] Jimbo Dash Work Phone: Start: 08-16-2022 Computed tomography [...] bacterial quanttative colony count urine Bekah Redd LEARNING DEVELOPER.CNM Work Phone: Start: 07-21-2020 Mammography Bekah Bui vahe LEARNING DEVELOPER.CNM Work Phone: Start: 11-28-2010 Lipid 1996 panel - S sam or Plasma Ric Taylor LEARNING DEVELOPER.ANESTHESIOLOGY CRNA Work Phone: Urine culture Dr. Jimbo Johnson en Work Phone: Plan of Treatment Date Care Activity Detail Author Start: 2040 RSV Immunization for Adults (1 - 1-dose 75+ series) RSV Immunization for Adults (1 - 1-dose 75+ series) [facility] Start: 02-08-2032 DTaP/Tdap/Td Vaccine s (4 - Td or Tdap) DTaP/Tdap/Td Vaccines (4 - Td or Tdap) [facility] Start: 02-08-2032 Urine microalbumin profile DTaP,Tdap,Td Vaccine (4 - Td or Tdap) [facility] Start: 12-13-2027 Diabetes Screening Diabetes Screenin g [facility] Start: 03-09-2025 End: 03-09-2025 Patient encounter procedure 03/09/2025 3:30 PM EST Office Visit Urology [address] [place] [id number] Fát[place] [address] [place] [address] [phone] PREOP, REVIEW PELVIC MRI Urology Comment on above: PREOP, REVIEW PELVIC MRI Start: 12-29-2024 End: 12-29-2024 Patient encounter procedure 12/29/2024 10:45 AM EDT Office Visit Urology [address] [place] [phone] Fátima Santillan MD [address] [place], [place] [id number] NEED PATIENT TO CONFIRM Urology Comment on above: NEED PATIENT TO CONF IRM Start: 12-28-2024 Influenza vaccination Influenza Vacc ine (#1) [facility] Start: 12-14-2024 End: 12-14-2024 Patient encounter procedure 12/14/2024 1:00 PM EDT Appointment Radiology [address] [place] [address] Infection in abdomen (HCC) [K65.9] Radiology Comment on above: Infection in abdomen (HCC) [K65.9] Start: 12-11-2024 End: 12-11-2024 [facility] Start: 11-03-2024 End: 11-03-2024 Patient encounter procedure 11/03/2024 10:30 AM EDT Office Visit [facility] [address] [place] [address] Ladarius Pathak MD [address] [place] [address] cysto with elías- ct prior at [facility] Comment on above: cysto with elías- ct prior at [facility] Start: 09-24-2024 End: 09-24-2024 Patient encounter procedure 09/24/2024 11:00 AM EDT Office Visit Urology [address] [place] [address] Elida Angelo APRN.ANESTHESIOLOGY CRNA [address] [address] new patient; referral; possible bladder stone--had cysto done from other provider; patient will fax over records Urology Comment on above: new patient; referra l; possible bladder stone--had cysto done from other provider; patient will fax over records Start: 06-11-2024 [facility] Start: 04-11-2024 Screening for malign ant neoplasm of breast Mammogram [facility] Start: 12-29-2023 Covid-19 Vaccine ( season) Covid-19 Vaccine ( season) [facility] Start: 04-29-2022 DEPRESSION ASSESSMENT DEPRESSION ASS ESSMENT [facility] Start: 04-18-2022 Patient referral [facility] Work Phone: Start: 02-15-2022 Anes trurl fragmntj manj&/rmvl ureteral calculus ANESTH STONE REMOVAL [facility] Start: 02-15-2022 Cysto w/ureteroscopy w/lithotripsy CYSTOURETERO W/LITHOTRIPSY [facility] Start: 02-15-2022 Patient discharge [facility] Start: 02-09-2022 Colonoscopy flx dx w/collj spec when pfrmd DIAGNOSTIC COLONOSCOPY [facility] Start: 02-09-2022 Patient discharge [facility] Start: 12-28-2021 Influenza vaccination INFLUENZA (#1) [facility] Start: 10-24-2021 End: 12-24-2021 Bacteria identified in Urine by Culture URINE CULTURE Microbiology Routine Dysuria Expected: 10/24/2021, Expires: 12/24/2021 [facility] Work Phone: Comment on above: Expected: 10/24/2021 , Expires: 12/24/2021 Start: 10-24-2021 End: 12-24-2021 Urinalysis complete panel - Urine URINALYSIS, WITH MICROSCOPIC Lab Routine Dysuria Expected: 10/24/2021, Expires: 12/24/2021 [facility] Work Phone: Comment on above: Expected: 10/24/2021 , Expires: 12/24/2021 Start: 07-21-2021 Mammography MAMMOGRAM [facility] Start: 07-21-2021 Screening for malign ant neoplasm of breast Mammogram Screening [facility] Start: 04-29-2021 DEPRESSION ASSESSMENT DEPRESSION ASS ESSMENT [facility] Start: 10-29-2020 COVID-19 VACCINE (3 - Booster for Moderna series) COVID-19 VACCINE (3 - Booster for Moderna series) [facility] Start: 07-27-2020 COVID-19 VACCINE (3 - Booster for Moderna series) COVID-19 VACCINE (3 - Booster for Moderna series) [facility] Start: 12-10-2016 End: 12-10-2016 Appointment Appointment [facility] Work Phone: Start: 12-10-2016 End: 12-10-2016 X-ray exam of foot X-Ray, Foot [facility] Work Phone: Start: 10-29-2016 End: 10-29-2016 Appointment Appointment [facility] Work Phone: Start: 10-29-2016 End: 10-29-2016 X-ray exam of foot X-Ray, Foot [facility] Work Phone: Start: 10-29-2016 End: 10-29-2016 X-ray exam, knee, 4 or more X-Ray, Knee [facility] Work Phone: Start: 07-05-2016 End: 07-05-2016 X-ray exam of finger(s) X-Ray, Fingers [facility] Work Phone: Start: 06-26-2016 Urine microalbumin profile DTAP,TDAP,TD (2 - Td or Tdap) [facility] Start: 11-29-2015 Lipid panel Lipid Screening [facility] Start: 11-29-2015 LIPID SCREEN LIPID SCREEN [facility] Start: 2015 Pneumococcal Vaccine : 50+ (1 of 1 - PCV) Pneumococcal Vaccine: 50+ (1 of 1 - PCV) [facility] Start: 2015 Pneumococcal Vaccine : 50+ Years (1 of 1 - PCV) Pneumococcal Vaccine: 50+ Years (1 of 1 - PCV) [facility] Start: 2015 SHINGRIX VACCINE (1 of 2) FERNANDEZ GRIX VACCINE (1 of 2) [facility] Start: 2015 Zoster Vaccines (1 of 2) Zoste r Vaccines (1 of 2) [facility] Start: 11-28-2013 DIABETES SCREEN DIABETES SCREEN [facility] Start: 11-28-2013 Diabetes Screening Diabetes Screenin g [facility] Start: 02-26-2011 PAP TESTING PAP TESTING [facility] Start: 2010 COLOGUARD (FIT-DNA) COLOGUARD (FIT-D NA) [facility] Start: 2010 Colonoscopy COLONOSCOPY [facility] Start: 2010 COLORECTAL CANCER SCREENING COLORECTAL CANCER SCREENING [facility] Start: [address] COLONOGRAPHY [facility] Start: 2010 FECAL OCCULT BLOOD FECAL OCCULT BLOO D [facility] Start: 2010 Screening for malign ant neoplasm of colon [facility] Start: 2010 SIGMOIDOSCOPY SIGMOIDOSCOPY [facility] Start: 02-26-2009 Screening for malign ant neoplasm of cervix Cervical Cancer Screening [facility] Start: 1995 HPV TESTING HPV TESTING [facility] Start: 1995 Screening for malign ant neoplasm of cervix [facility] Start: 1986 Screening for malign ant neoplasm of cervix Pap Smear [facility] Start: 1984 Hepatitis B Vaccines (1 of 3 - 19+ 3-dose series) Hepatitis B Vaccines (1 of 3 - 19+ 3-dose series) [facility] Start: 1983 Anxiety Screening Anxiety Screening [facility] Start: 1983 Depression Screening Depression Scre [facility] Start: 1983 Diabetes mellitus screening Diabetes Screening [facility] Start: 1983 HEPATITIS C SCREENING HEPATITIS C [facility] Start: 1983 Hepatitis C screening Hepatitis C [facility] Start: 1983 HIV SCREENING HIV SCREENING [facility] Start: 1983 HIV screening HIV Screening [facility] Start: 1977 Adult depression screening assessment DEPRESSION SCREENING [facility] Start: 1966 MMR Vaccines (1 of 1 - Standard series) MMR Vaccines (1 of 1 - Standard series) [facility] Start: 1965 HEPATITIS B (1 of 3 - 3-dose series) HEPATITIS B (1 of 3 - 3-dose series) [facility] Start: 1965 HIV screening HIV Screening [facility] Start: 1965 Screening for malign ant neoplasm of colon [facility] Bacteria identified in Urine by Culture URINE CULTURE Microbiology Routine Dysuria 10/11/2021 7:35 AM EDT [facility] Work Phone: BLADDER SCAN BLADDER SCAN Pro cedures Routine Bladder stone Ordered: 10/22/2024 [facility] Comment on above: Ordered: 10/22/2024 Calcium [Mass/volume ] in Serum or Plasma [facility] Work Phone: CT Abdomen and Pelvis [facility] Doppler ultrasonogra phy of aorta [facility] MR Pelvis WO and W contrast IV MRI FEMALE PELVIS WO/W IVCON Radiology Routine Infection in abdomen (HCC) 12/14/2024 1:53 PM EDT [facility] Work Phone: Patient Education [facility] Work Phone: Patient referral [facility] Work Phone: UA DIP, URINE (POC) UA DIP, URIN E (POC) Lab Routine Bladder stone Ordered: 10/22/2024 [facility] Work Phone: Comment on above: Ordered: 10/22/2024 [facility] Immunizations Immunization Date Immunization Notes Care Provider Fa cili 01-29-2024 influenza, seasonal, injectable, preservative free Dr. Jimbo Dash MD Work Phone: [facility] 01-29-2024 influenza virus vaccine, unspecified formulation Fátima Santillan MD Work Phone: [facility] 02-12-2023 influenza, injectabl e, quadrivalent, preservative free Dr. Jimbo Dash Work Phone: [facility] 01-29-2022 influenza, injectabl e, quadrivalent, preservative free Dr. Jimbo Dash Work Phone: [facility] 01-29-2022 influenza, seasonal, injectable Dr. Jimbo Dash Work Phone: [facility] 02-09-2021 influenza, injectabl e, quadrivalent, preservative free Dr. Jimbo Dash Work Phone: [facility] 02-09-2021 influenza, seasonal, injectable [facility] 06-01-2020 Covid (Moderna) [facility] 05-04-2020 Covid (Moderna) [facility] 02-19-2020 influenza, injectabl e, quadrivalent, preservative free Dr. Jimbo Dash Work Phone: [facility] 02-19-2020 influenza, seasonal, injectable [facility] 07-04-2019 tetanus toxoid, redu christ diphtheria toxoid, and acellular pertussis vaccine, adsorbed [facility] 01-22-2019 influenza, injectabl e, quadrivalent, preservative free Dr. Jimbo Dash Work Phone: [facility] 01-22-2019 influenza, seasonal, injectable [facility] 01-22-2018 influenza, injectabl e, quadrivalent, preservative free Dr. Jimbo Dash Work Phone: [facility] 01-22-2018 influenza, seasonal, injectable [facility] 01-24-2017 influenza, injectabl e, quadrivalent, preservative free Dr. Jimbo Dash Work Phone: [facility] 01-24-2017 influenza, seasonal, injectable [facility] 01-26-2016 influenza, injectabl e, quadrivalent, preservative free Dr. Jimbo Dash Work Phone: [facility] 01-26-2016 influenza, seasonal, injectable [facility] 01-27-2015 influenza, injectabl e, quadrivalent, preservative free Dr. Jimbo Dash Work Phone: [facility] 01-27-2015 influenza, seasonal, injectable [facility] 01-21-2014 influenza, injectabl e, quadrivalent, preservative free Dr. Jimbo Dash Work Phone: [facility] 01-21-2014 influenza, seasonal, injectable [facility] 01-17-2009 tuberculin skin test ; purified protein derivative solution, intradermal Ric Taylor LEARNING DEVELOPER.ANESTHESIOLOGY CRNA Work Phone: [facility] 06-26-2006 tetanus toxoid, redu christ diphtheria toxoid, and acellular pertussis vaccine, adsorbed Bekah Redd LEARNING DEVELOPER.CNM Work Phone: [facility] Work Phone: Payers Date Payer Category Payer Commercial Managed C are - HMO [employer] [id number] 2023 Self-pay [id number] 2022 Private Health Insurance [id number] 2022 Unknown [id number] 2020 Unknown MMO MMO TPA xxxx [id number] 2020-Present [address] [place] [address] PPO [id number] 2020 Unknown MMO MMO TPA xxxx [id number] 2020-Present [address] [place] [address] PPO [id number] 2016 Unknown [id number] Unknown [facility] [id number] Unknown [id number] Unknown [id number] .462 Unknown [id number] .462 Unknown [id number] .462 Unknown [id number] .462 Unknown [id number] .[id number] .462 Unknown [id number] .462 Unknown [id number] .462 Unknown [id number] 2.16.840.1.555540.3.579.2 .462 Unknown [id number] 2.16.840.1.807125.3.579.2 .462 Unknown [id number] 2.16.840.1.381515.3.579.2 .462 Unknown [id number] 2.16.840.1.674037.3.579.2 .462 Unknown [id number] [id number] .462 Unknown [id number] 2.16.840.1.766736.3.579.2 .462 Unknown [id number] 2.16.840.1.522463.3.579.2 .462 Unknown [id number] 2.16.840.1.382963.3.579.2 .462 Unknown [id number] 2.16.840.1.501002.3.579.2 .462 Unknown [id number] [id number] .462 Unknown [id number] .462 Social History Date Type Detail Facility Start: 04-30-2022 End: 12-14-2024 Tobacco smoking status NHIS Never smoked tobacco [facility] Work Phone: Start: 07-04-2020 End: 12-08-2024 Alcohol intake Current non-drinker of alcohol (finding) [facility] Start: 1965 Sex Assigned At Not on file [facility] Start: 10-01-2021 End: 10-25-2021 Exposure to SARS-CoV-2 (event) Not sure [facility] Start: 05-12-2021 End: 05-09-2023 Tobacco smoking status COIS Unknown if ever smoked [facility] Start: 10-03-2020 None [facility] Start: 10-03-2020 Homeless [facility] Start: 10-03-2020 Non-smoker [facility] Start: 1965 Sex Assigned At Female [facility] Start: 04-30-2022 End: 12-14-2024 Tobacco use and exposure Smokeless tobacco non-user [facility] Start: 07-15-2024 End: 12-14-2024 Sex Female (finding) [facility] Start: 09-17-2022 End: 08-26-2024 History of Social function [facility] Start: 09-17-2022 End: 08-26-2024 Tobacco use panel [facility] Start: 03-30-2012 National Score (1-100), lower number is lower risk 47 [facility] How often do you nee d to have someone help you when you read instructions, pamphlets, or other written material from your doctor or pharmacy [SILS] Never [facility] Has the [employer], or [employer] threatened to shut off services in your home in past 12Mo Yes [facility] Within the last year , have you been afraid of your partner or ex-partner? No [facility] Are you now , , , , never or living with a partner? [facility] How hard is it for y ou to pay for the very basics like food, housing, medical care, and heating Not very hard [facility] Do you feel stress - tense, restless, nervous, or anxious, or unable to sleep at night because your mind is troubled all the time - these days [OSQ] Only a little [facility] (I/We) worried wheth er (my/our) food would run out before (I/we) got money to buy more. Never true [facility] NEGATED: Highlighted row [facility] Medical Equipment Procedure Code Equipment Code Equipment [...] Start: 02-04-2019 SPEEDBRIDGE 4.75 FDA Start: 02-04-2019 ([id number]) Bare-metal tracheal/bronchial/v ascular stent ()[id number] FDA Start: 10-03-2022 Bare-metal tracheal/bronchial/v ascular stent ()[id number] FDA Start: 10-03-2022 .062 GUIDE WIRE W/TROCAR [...] /State Functional Status Date Assessment Result Facility 12-16-2024 Total score [AUDIT-C] 0 12/17/19 25 5:30 AM EDT [facility] 12-16-2024 How often to you hav e a drink containing alcohol? Never 12/16/2024 5:30 AM EDT Mychart, Generic Never [facility] 12-16-2024 Functional status Patient does n ot drink 12/16/2024 5:30 AM EDT [employer], Generic Patient does not drink [employer] [place] 12-16-2024 How often do you hav e 6 or more drinks on 1 occasion? Never 12/16/2024 5:30 AM EDT [employer], Generic Never [employer] 02-15-2022 Functional status Bathroom Privilege [facility] Work Phone: Mental Status Date Assessment Result Facility 06-11-2024 Cognitive function Voice/Name [facility] Work Phone: 02-15-2022 Cognitive function Voice/Name [facility] Work Phone: 02-09-2022 Cognitive function Voice/Name;Touch/Shaki ng [facility] Work Phone: Clinical Notes 03-24-2008 to 12-23-2024 Telephone Encounter - Milena Abbasi - 12/23/2024 3:23 PM EDTTelephone Encounter - Milena Abbasi - 12/23/2024 3:23 PM EDTSgregory Short RN - 12/17/2024 5:50 PM EDTPatient Instructions Note Date & Type Note Facility 12-23-2024 Telephone encounter Note Patient has been scheduled in first available conference slot available after her appt with vascular. Milena Abbasi [facility] 12-23-2024 Miscellaneous Notes Patient has been scheduled in first available conference slot available after her appt with vascular. Milena Abbasi documented in this encounter [facility] 12-17-2024 Nurse Note arrived and taken to discharge [facility] 12-17-2024 Nurse Note arrived and taken to discharge Patient has been aware of discharge. She states her will probably come around 1700 Pressure dressing remains dry and intact Pressure dressing has been in place for 5 minutes. No bleeding noted at this time but will monitor. Patient called stating she was bleeding. Patient had saturated through deja, kerlex and 4x4s. Pressure held for 10 minutes and there still was just a constant trickle. Messaged Dr Devine. Continues holding pressure for another 10 Minutes with same result so messaged Dr Rico. Held pressure for another 10 minutes and although still a trickle it seemed a bit slower. Pressure dressing placed and instructed her to keep leg still until they were able to come and see her. Patient in bed. Denies any complaints at this time. Call light in reach Updated PRODUCTION CONTROL PEGBOARD CLERK Billy on pt current bp status. Last bp 92/54 MAP of 67. Patient blood pressure 90/55(63). She feels fine no complaints in talking with family. Left leg with deja wrap intact no bleeding noted. Dr Aware Patient heparin restarted per order now that she is back from surgery. She did go to surgery shortly after last PTT drawn and gtt was stopped when she went per surgery Patient returned from PACU. She is alert and oriented. She states she currently is having no pain. Deja wrap to left leg dry and intact. Call light in reach and family at bedside To or documented in this encounter [facility] 12-17-2024 Nurse Note Patient has been aware of discharge. She states her will probably come around 1700 [facility] 12-17-2024 Note Hospitalist Discharg e Summary Karolina Ahn : 1965 Admit date: 12/14/2024 Discharge date: 12/17/2024 Admitting Physician: Alen Ordonez DO Primary Care Physician: No primary care provider on file. 9-year-old female presents with left lower extremity pain and edema. In 2022 patient had stents placed and was on placed on Plavix at that time. Prior to that patient was on Eliquis and then switched from Eliquis to Plavix after stents placement. Patient has a history of DVT and was on Plavix however in December 11 had right lower extremity edema diagnosed with new DVT and was started on Eliquis. Since being on Eliquis she has has had worsening of right lower extremity edema no improvement. Denies chest pain shortness of breath abdominal pain nausea vomiting diarrhea lightheadedness dizziness hematuria hematochezia. Patient follows with Dr. Goldberg at [facility] and is scheduled for thrombectomy and heparin bridge next week. Dr. Goldberg is on vacation this week. Discussed with Dr. Rico with vascular surgery. Family history of DVT CT of the chest negative for pulmonary emboli CTA heart coronary angiogram No evidence of atherosclerotic changes or luminal stenosis in the coronary arteries. The coronary calcium score is 9 (Agatston method). Ascending aorta measures 3.9cm at the level of the pulmonary artery bifurcation. December 15 venous duplex acute occlusive DVT left common iliac vein left internal iliac vein left external iliac vein and left common femoral vein. No evidence of DVT or superficial vein thrombosis in right lower extremity . December 16 MECHANICAL THROMBECTOMY LEFT ILIAC VEIN 12/[address] SHORT FOR DISCHARGE WITH OUTPT FOLLOW UP. ELIQUIS 5 MG BID. Denies chest pain shortness breath abdominal pain nausea vomiting diarrhea lightheadedness dizziness LLE EDEMA IMPROVING WANTING TO GO HOME TODAY Acute DVT, left lower extremity December 16 MECHANICAL THROMBECTOMY LEFT ILIAC VEIN Eliquis 5 mg BID History of DVT Abnormal troponin CTA heart coronary angiogram No evidence of atherosclerotic changes or luminal stenosis in the coronary arteries. The coronary calcium score is 9 (Agatston method). Ascending aorta measures 3.9cm at the level of the pulmonary artery bifurcation. Hospital Course: See discharge diagnoses list above and medication adjustments below in med rec.The patient is discharged in improved and stable condition. Consults: IP CONSULT TO VASCULAR SURGERY Discharge Instructions: Diet: Dietary Orders (From admission, onward) Start Ordered 12/16/24 1323 Adult diet Regular Diet effective now Question: Diet type Answer: Regular 12/16/24 1323 Activity: as tolerated Recommended Outpatient Tests: Disposition: Patient discharged in stable condition to Home. Greater than 31 minutes spent discharging the patient and coming up with patient discharge plan. Vitals: BP 98/53 Pulse 68 Temp (!) 35.7 ?C (96.3 ?F) (Temporal) Resp 18 Ht 5' 4 (1.626 m) Wt 145 lb (65.8 kg) SpO2 96% BMI 24.89 kg/m? Pulse Ox: SpO2 Av % Min: 89 % Max: 98 % Supplemental O2: O2 Flow Rate (L/min): 3 L/min Physical Exam HENT: Head: Normocephalic and atraumatic. Cardiovascular: Rate and Rhythm: Normal rate and regular rhythm. Pulmonary: Effort: Pulmonary effort is normal. No respiratory distress. Abdominal: General: Bowel sounds are normal. Palpations: Abdomen is soft. Tenderness: There is no abdominal tenderness. Musculoskeletal: Left lower leg: Edema present. Neurological: Mental Status: She is alert and oriented to person, place, and time. dR SHORT AND dR Rico AT BEDSIDE DURING MY EVALUATION LABS: Recent Labs 12/15/2462212/16/2452112/17/24 0735 NA 140 139 140 K 4.2 4.0 3.9 CL 108* 108* 108* CO2 27 25 26 BUN 14 13 10 CREATININE 0.71 0.73 0.76 GLUCOSE 93 92 105* CALCIUM 8.9 8.7 8.6 Recent Labs 12/15/2462212/16/2452112/17/24 0735 WBC 6.1 5.7 7.1 RBC 3.95 3.95 3.47* HGB 11.6* 11.7 10.1* HCT 36.1 36.4 31.9* MCV 91.4 92.2 91.9 MCH 29.4 29.6 29.1 MCHC 32.1 32.1 31.7 RDW 12.7 12.8 12.8 PLT 204 227 244 MPV 9.8 10.0 9.9 Discharge Medications: Medication List START taking these medications apixaban 5 MG tablet Commonly known as: Eliquis Take 1 tablet (5 mg) by mouth 2 times daily. CONTINUE taking these medications dicyclomine 20 MG tablet Commonly known as: Bentyl Livalo 4 MG tablet Generic drug: Pitavastatin Calcium omeprazole [address] capsule Commonly known as: PriLOSEC sertraline 50 MG tablet Commonly known as: Zoloft Where to Get Your Medications These medications were sent to [facility] [address] [place], [place] [phone] Hours: Saturday to Saturday 10 am to 6 pm apixaban 5 MG tablet Recommended Follow-up: Charissa Short MD [address] [place] [address] [phone] Schedule an appointment as soon as possible for a v (more content not included)... [facility] 12-17-2024 Hospital course Narrative Hospitalist Discharge Summary Karolina Ahn : 1965 Admit date: 12/14/2024 Discharge date: 12/17/2024 Admitting Physician: Alen Ordonez DO Primary Care Physician: No primary care provider on file. 9-year-old female presents with left lower extremity pain and edema. In 2022 patient had stents placed and was on placed on Plavix at that time. Prior to that patient was on Eliquis and then switched from Eliquis to Plavix after stents placement. Patient has a history of DVT and was on Plavix however in December 11 had right lower extremity edema diagnosed with new DVT and was started on Eliquis. Since being on Eliquis she has has had worsening of right lower extremity edema no improvement. Denies chest pain shortness of breath abdominal pain nausea vomiting diarrhea lightheadedness dizziness hematuria hematochezia. Patient follows with Dr. Goldberg at [facility] and is scheduled for thrombectomy and heparin bridge next week. Dr. Goldberg is on vacation this week. Discussed with Dr. Rico with vascular surgery. Family history of DVT CT of the chest negative for pulmonary emboli CTA heart coronary angiogram No evidence of atherosclerotic changes or luminal stenosis in the coronary arteries. The coronary calcium score is 9 (Agatston method). Ascending aorta measures 3.9cm at the level of the pulmonary artery bifurcation. December 15 venous duplex acute occlusive DVT left common iliac vein left internal iliac vein left external iliac vein and left common femoral vein. No evidence of DVT or superficial vein thrombosis in right lower extremity . December 16 MECHANICAL THROMBECTOMY LEFT ILIAC VEIN 12/[address] SHORT FOR DISCHARGE WITH OUTPT FOLLOW UP. ELIQUIS 5 MG BID. Denies chest pain shortness breath abdominal pain nausea vomiting diarrhea lightheadedness dizziness LLE EDEMA IMPROVING WANTING TO GO HOME TODAY Acute DVT, left lower extremity December 16 MECHANICAL THROMBECTOMY LEFT ILIAC VEIN Eliquis 5 mg BID History of DVT Abnormal troponin CTA heart coronary angiogram No evidence of atherosclerotic changes or luminal stenosis in the coronary arteries. The coronary calcium score is 9 (Agatston method). Ascending aorta measures 3.9cm at the level of the pulmonary artery bifurcation. Hospital Course: See discharge diagnoses list above and medication adjustments below in med rec.The patient is discharged in improved and stable condition. Consults: IP CONSULT TO VASCULAR SURGERY Discharge Instructions: Diet: Dietary Orders (From admission, onward) Start Ordered 12/16/24 1323 Adult diet Regular Diet effective now Question: Diet type Answer: Regular 12/16/24 1323 Activity: as tolerated Recommended Outpatient Tests: Disposition: Patient discharged in stable condition to Home. Greater than 31 minutes spent discharging the patient and coming up with patient discharge plan. Vitals: BP 98/53 Pulse 68 Temp (!) 35.7 C (96.3 F) (Temporal) Resp 18 Ht 5' 4 (1.626 m) Wt 145 lb (65.8 kg) SpO2 96% BMI 24.89 kg/m Pulse Ox: SpO2 Av % Min: 89 % Max: 98 % Supplemental O2: O2 Flow Rate (L/min): 3 L/min Physical Exam HENT: Head: Normocephalic and atraumatic. Cardiovascular: Rate and Rhythm: Normal rate and regular rhythm. Pulmonary: Effort: Pulmonary effort is normal. No respiratory distress. Abdominal: General: Bowel sounds are normal. Palpations: Abdomen is soft. Tenderness: There is no abdominal tenderness. Musculoskeletal: Left lower leg: Edema present. Neurological: Mental Status: She is alert and oriented to person, place, and time. dR SHORT AND dR Rico AT BEDSIDE DURING MY EVALUATION LABS: Recent Labs 12/15/24 0612/16/24 0522 12/17/24 0735 NA 140 139 140 K 4.2 4.0 3.9 CL 108* 108* 108* CO2 27 25 26 BUN 14 13 10 CREATININE 0.71 0.73 0.76 GLUCOSE 93 92 105* CALCIUM 8.9 8.7 8.6 Recent Labs 12/15/24 0623 12/16/24 0522 12/17/24 0735 WBC 6.1 5.7 7.1 RBC 3.95 3.95 3.47* HGB 11.6* 11.7 10.1* HCT 36.1 36.4 31.9* MCV 91.4 92.2 91.9 MCH 29.4 29.6 29.1 MCHC 32.1 32.1 31.7 RDW 12.7 12.8 12.8 PLT 204 227 244 MPV 9.8 10.0 9.9 Discharge Medications: Medication List START taking these medications apixaban 5 MG tablet Commonly known as: Eliquis Take 1 tablet (5 mg) by mouth 2 times daily. CONTINUE taking these medications dicyclomine 20 MG tablet Commonly known as: Bentyl Livalo 4 MG tablet Generic drug: Pitavastatin Calcium omeprazole [address] capsule Commonly known as: PriLOSEC sertraline 50 MG tablet Commonly known as: Zoloft Where to Get Your Medications These medications were sent to [facility] [address] [place] [address] Hours: Saturday to Saturday 10 am to 6 pm apixaban 5 MG tablet Recommended Follow-up: Charissa Short MD [address] [facility] [address] [facility] [phone] Schedule an appointment as soon as possible for a visit Complexity of Follow up: [] Moderate Complexity: follow up within 7-14 calendar days (10032) [x] Severe Complexity: follow up within 7 calendar days (12866) Follow up Testing, Pending results or Referrals at Transitional Care Visit: [x] yes [] no Instructions to MA: Please call patient on day after discharge (must document patient contacted within 2 business days of discharge). Follow up questions for MA: 1. Did you get medications filled and taking them as instructed from discharge? 2. Are you following your discharge instructions from your hospital stay? 3. Please confirm patient is scheduled for a follow up appointment within the above time frame. Signed: Alen Ordonez DO Division of Hospitalist Medicine [facility] 12/17/2024, 12:13 PM documented in this encounter [facility] 12-17-2024 Nurse Note Pressure dressing remains dry and intact [facility] 12-17-2024 Nurse Note Pressure dressing has been in place for 5 minutes. No bleeding noted at this time but will monitor. [facility] 12-17-2024 Nurse Note Patient called stating she was bleeding. Patient had saturated through deja, kerlex and 4x4s. Pressure held for 10 minutes and there still was just a constant trickle. Messaged Dr Devine. Continues holding pressure for another 10 Minutes with same result so messaged Dr Rico. Held pressure for another 10 minutes and although still a trickle it seemed a bit slower. Pressure dressing placed and instructed her to keep leg still until they were able to come and see her. T [facility] 12-17-2024 Nurse Note Patient in bed. Denies any complaints at this time. Call light in reach [facility] 12-17-2024 History of Present illness Narrative Images from the original note were not included. Department of Vascular Surgery PATIENT NAME: Karolina Ahn : 1965 ATTENDING PHYSICIAN: Alen Ordonez DO ADMIT DATE: 12/14/2024 TODAY'S DATE: 12/17/2024 SUBJECTIVE NAEON. Left extremity swelling improved and she has better mobility of the leg now. Still some residual swelling at the left upper thigh but pain is well controlled at this point. No fevers or chills. OBJECTIVE VITALS: BP 92/54 (BP Location: Left arm, Patient Position: Sitting) Pulse 58 Temp (!) 35.6 C (96.1 F) (Temporal) Resp 24 Ht 1.626 m (5' 4) Wt 65.8 kg (145 lb) SpO2 97% BMI 24.89 kg/m PHYSICAL EXAM: Physical Exam Vitals reviewed. Constitutional: General: She is not in acute distress. Appearance: She is not ill-appearing. HENT: Head: Normocephalic and atraumatic. Right Ear: External ear normal. Left Ear: External ear normal. Nose: No congestion. Mouth/Throat: Mouth: Mucous membranes are moist. Pharynx: Oropharynx is clear. Eyes: General: No scleral icterus. Right eye: No discharge. Left eye: No discharge. Cardiovascular: Rate and Rhythm: Normal rate and regular rhythm. Pulses: Normal pulses. Femoral pulses are 2+ on the right side and 2+ on the left side. Dorsalis pedis pulses are 2+ on the right side and 2+ on the left side. Posterior tibial pulses are 2+ on the right side and 2+ on the left side. Pulmonary: Effort: Pulmonary effort is normal. No respiratory distress. Breath sounds: No stridor. Chest: Chest wall: No tenderness. Abdominal: General: Abdomen is flat. There is no distension. Skin: General: Skin is warm and dry. Capillary Refill: Capillary refill takes less than 2 seconds. Findings: Moderately edematous left upper thigh, minimally to left calf Neurological: General: No focal deficit present. Mental Status: She is alert and oriented to person, place, and time. Psychiatric: Mood and Affect: Mood normal. Behavior: Behavior normal. Vascular: Left behind knee sutures removed, hemostatic. INTAKE/OUTPUT: @IODETAILS@ I/O last 3 completed shifts: In: 1832 (27.9 mL/kg) [I.V.:1829 (27.8 mL/kg); IV Piggyback:3] Out: 500 (7.6 mL/kg) [Blood:500] Weight: 65.8 kg No intake/output data recorded. Data Results from last 7 days Lab Units 12/16/2452112/15/2462212/14/241950 WBC AUTO 10*3/uL 5.7 6.1 5.8 HEMOGLOBIN g/dL 11.7 11.6* 12.5 HEMATOCRIT % 36.4 36.1 38.1 PLATELETS 10*3/uL 227 204 228 Results from last 7 days Lab Units 12/16/2452112/15/2462212/14/241950 SODIUM mmol/L 139 140 139 POTASSIUM mmol/L 4.0 4.2 3.5 CHLORIDE mmol/L 108* 108* 108* CO2 mmol/L BUN mg/dL 13 14 16 CREATININE mg/dL 0.73 0.71 0.78 GLUCOSE mg/dL 92 93 89 CALCIUM mg/dL 8.7 8.9 8.8 Results from last 7 days Lab Units 12/14/241950 ALK PHOS U/L 117 BILIRUBIN TOTAL mg/dL 0.6 PROTEIN TOTAL g/dL 6.8 ALT U/L 28 AST U/L 31 No results found for: LIPASE Results from last 7 days Lab Units 12/14/241950 INR 1.0 Current Inpatient Medications Scheduled Meds[1] Continuous Meds[2] PRN Meds[3] ASSESSMENT AND PLAN 59 y.o. female w psh bilat CIV stents for apparent pelvic congestion syndrome now with occluded L CIV stent and acute left dvt of ileofemoral system s/p left iliac vein mechanical thrombectomy with Dr. Short on 12/16. - Ok to transition off heparin to Eliquis on discharge - Continue home Statin - Continue to elevate and compress with DEJA/Kerlix - Ok for discharge from vascular perspective, follow-up with Dr. Goldberg ([place]) or Dr. Short - Vascular to sign off, please call with questions or concerns WDW Dr. Carolyn Rico MD General Surgery PGY-3 Pager [phone] [1] atorvastatin, 40 mg, Oral, Nightly dicyclomine, 20 mg, Oral, Daily pantoprazole, 40 mg, Oral, qAM AC sertraline, 50 mg, Oral, BID sodium chloride 0.9%, 10 mL, IntraVENous, 2 times per day [2] heparin, 5-30 Units/kg/hr, Last Rate: 16 Units/kg/hr (12/16/241915) [3] PRN medications: acetaminophen, heparin, heparin, naloxone, ondansetron ODT OR ondansetron, oxyCODONE OR oxyCODONE, polyethylene glycol (PEG) 3350, sodium chloride, sodium chloride 0.9% Cosigned by Charissa Short MD at 12/17/2024 12:43 PM EDT Associated attestation - Charissa Short MD - 12/17/2024 12:43 PM EDT I saw and evaluated the patient. I agree with the findings and plan of care as documented in the resident s note unless otherwise noted below. Some oozing from popliteal incision secondary to varicosities. Suture placed by resident team. There is no bleeding present at this time. Swelling improved. OK for discharge from a vascular surgery standpoint. OK to resume Eliquis. Will arrange outpatient follow up with us or the patient may follow up with Dr. Goldberg if she desires. Hospitalist Progress Note 12/16/2024 Subjective: Admit Date: 12/14/2024 PCP: No primary care provider on file. Room#: OR/NONE Interval History: Patient reports improvement in left lower extremity edema. Patient's and grandchildren at bedside. Patient seen prior to surgery. Denies chest pain shortness breath abdominal pain nausea vomiting diarrhea lightheadedness dizziness NPO diet with enteral medications 24HR INTAKE/OUTPUT: No intake or output data in the 24 hours ending 12/16/24 1204 Past Medical History: Medical History[1] LABS: CBC: Recent Labs 12/14/24195012/15/2462212/16/24 0522 WBC 5.8 6.1 5.7 RBC 4.18 3.95 3.95 HGB 12.5 11.6* 11.7 HCT 38.1 36.1 36.4 MCV 91.1 91.4 92.2 RDW 12.8 12.7 12.8 PLT 228 204 227 BMP: Recent Labs 12/14/24195012/15/24 0623 12/16/24 0522 NA 139 140 139 K 3.5 4.2 4.0 CL 108* 108* 108* CO2 25 27 25 BUN 16 14 13 CREATININE 0.78 0.71 0.73 GLUCOSE 89 93 92 CALCIUM 8.8 8.9 8.7 ANIONGAP 6 5 6 LIVER PROFILE: Recent Labs 12/14/241950 AST 31 ALT 28 BILITOT 0.6 ALKPHOS 117 PROT 6.8 PT/INR: Recent Labs 12/14/241950 PROTIME 10.5 INR 1.0 CARDIAC ENZYMES: No results for input(s): TROPONINI in the last 72 hours. Procalcitonin: No results found for: PROCAL COVID-19 PCR: No results for input(s): COVID19 in the last 72 hours. Objective: Vitals: BP 114/66 Pulse 51 Temp 36.1 C (97 F) (Temporal) Resp 16 Ht 5' 4 (1.626 m) Wt 145 lb (65.8 kg) SpO2 95% BMI 24.89 kg/m Pulse Ox: SpO2 Av.1 % Min: 94 % Max: 98 % Supplemental O2: Physical Exam HENT: Head: Normocephalic and atraumatic. Cardiovascular: Rate and Rhythm: Normal rate and regular rhythm. Pulmonary: Effort: Pulmonary effort is normal. No respiratory distress. Abdominal: General: Bowel sounds are normal. Palpations: Abdomen is soft. Tenderness: There is no abdominal tenderness. Musculoskeletal: Left lower leg: Edema present. Neurological: Mental Status: She is alert and oriented to person, place, and time. Medications: Scheduled PRN Scheduled Meds[2] PRN Meds[3] Continuous Continuous Meds[4] Assessment 59-year-old female presents with left lower extremity pain and edema. In 2022 patient had stents placed and was on placed on Plavix at that time. Prior to that patient was on Eliquis and then switched from Eliquis to Plavix after stents placement. Patient has a history of DVT and was on Plavix however in December 11 had right lower extremity edema diagnosed with new DVT and was started on Eliquis. Since being on Eliquis she has has had worsening of right lower extremity edema no improvement. Denies chest pain shortness of breath abdominal pain nausea vomiting diarrhea lightheadedness dizziness hematuria hematochezia. Patient follows with Dr. Goldberg at [facility] and is scheduled for thrombectomy and heparin bridge next week. Dr. Goldberg is on vacation this week. Discussed with Dr. Rico with vascular surgery. Family history of DVT CT of the chest negative for pulmonary emboli Continue Eliquis, monitor for signs of improvement CTA heart coronary angiogram No evidence of atherosclerotic changes or luminal stenosis in the coronary arteries. The coronary calcium score is 9 (Agatston method). Ascending aorta measures 3.9cm at the level of the pulmonary artery bifurcation. December 15 venous duplex acute occlusive DVT left common iliac vein left internal iliac vein left external iliac vein and left common femoral vein. No evidence of DVT or superficial vein thrombosis in right lower extremity . December 16 MECHANICAL THROMBECTOMY LEFT ILIAC VEIN Acute DVT, left lower extremity History of DVT Abnormal troponin Denies CP SOB Extended Emergency Contact Information Primary Emergency Contact: AhnCharles Mobile Relation: Spouse Preferred language: Tongan Body Press Operator needed? No Alen Ordonez DO Division of Hospitalist Medicine Acute care [facility] [1] History reviewed. No pertinent past medical history. [2] [Transfer Hold] atorvastatin, 40 mg, Oral, Nightly [Transfer Hold] dicyclomine, 20 mg, Oral, Daily metoprolol tartrate, 50 mg, Oral, BID [Transfer Hold] pantoprazole, 40 mg, Oral, qAM AC [Transfer Hold] sertraline, 50 mg, Oral, BID [Transfer Hold] sodium chloride 0.9%, 10 mL, IntraVENous, 2 times per day [3] PRN medications: [Transfer Hold] acetaminophen, [Transfer Hold] heparin, [Transfer Hold] heparin, [Transfer Hold] ondansetron ODT OR [Transfer Hold] ondansetron, [Transfer Hold] polyethylene glycol (PEG) 3350, [Transfer Hold] sodium chloride, [Transfer Hold] sodium chloride 0.9% [4] heparin, 5-30 Units/kg/hr, Last Rate: 16 Units/kg/hr (12/16/24 0717) Nutrition rescreen completed. Chart reviewed. Patient to be monitored and followed by the diet chemical engineering technician. Images from the original note were not included. Department of Vascular Surgery PATIENT NAME: Karolina Ahn : 1965 ATTENDING PHYSICIAN: Alen Ordonez DO ADMIT DATE: 12/14/2024 TODAY'S DATE: 12/16/2024 SUBJECTIVE NAEO. LLE swelling persistent. No change in motor/sensory fxn. Denies dizziness/lightheadness, shob, cp. Affirms NPO for procedure. OBJECTIVE VITALS: BP 101/63 (BP Location: Left arm, Patient Position: Lying) Pulse (!) 48 Temp 36.2 C (97.1 F) (Temporal) Resp 16 Ht 1.626 m (5' 4) Wt 65.8 kg (145 lb) SpO2 94% BMI 24.89 kg/m PHYSICAL EXAM: Physical Exam Vitals reviewed. Constitutional: General: She is not in acute distress. Appearance: She is not ill-appearing. HENT: Head: Normocephalic and atraumatic. Right Ear: External ear normal. Left Ear: External ear normal. Nose: No congestion. Mouth/Throat: Mouth: Mucous membranes are moist. Pharynx: Oropharynx is clear. Eyes: General: No scleral icterus. Right eye: No discharge. Left eye: No discharge. Cardiovascular: Rate and Rhythm: Normal rate and regular rhythm. Pulses: Normal pulses. Femoral pulses are 2+ on the right side and 2+ on the left side. Dorsalis pedis pulses are 2+ on the right side and 2+ on the left side. Posterior tibial pulses are 2+ on the right side and 2+ on the left side. Pulmonary: Effort: Pulmonary effort is normal. No respiratory distress. Breath sounds: No stridor. Chest: Chest wall: No tenderness. Abdominal: General: Abdomen is flat. There is no distension. Skin: General: Skin is warm and dry. Capillary Refill: Capillary refill takes less than 2 seconds. Findings: Erythema (diffuse LLE erythema) present. Neurological: General: No focal deficit present. Mental Status: She is alert and oriented to person, place, and time. Psychiatric: Mood and Affect: Mood normal. Behavior: Behavior normal. INTAKE/OUTPUT: @IODETAILS@ No intake/output data recorded. No intake/output data recorded. Data Results from last 7 days Lab Units 12/16/2452112/15/2462212/14/241950 WBC AUTO 10*3/uL 5.7 6.1 5.8 HEMOGLOBIN g/dL 11.7 11.6* 12.5 HEMATOCRIT % 36.4 36.1 38.1 PLATELETS 10*3/uL 227 204 228 Results from last 7 days Lab Units 12/16/2452112/15/2462212/14/241950 SODIUM mmol/L 139 140 139 POTASSIUM mmol/L 4.0 4.2 3.5 CHLORIDE mmol/L 108* 108* 108* CO2 mmol/L 25 27 25 BUN mg/dL 13 14 16 CREATININE mg/dL 0.73 0.71 0.78 GLUCOSE mg/dL 92 93 89 CALCIUM mg/dL 8.7 8.9 8.8 Results from last 7 days Lab Units 12/14/241950 ALK PHOS U/L 117 BILIRUBIN TOTAL mg/dL 0.6 PROTEIN TOTAL g/dL 6.8 ALT U/L 28 AST U/L 31 No results found for: LIPASE Results from last 7 days Lab Units 12/14/241950 INR 1.0 Current Inpatient Medications Scheduled Meds[1] Continuous Meds[2] PRN Meds[3] ASSESSMENT AND PLAN 59 y.o. female w psh bilat CIV stents for apparent pelvic congestion syndrome now with occluded L CIV stent and acute left dvt of ileofemoral system. - Freddy held, Cont on hep gtt, aptts therapeutic - thrombectomy today, informed consent obtained - npo for procedure - continue elevation and compression - remainder per primary - will follow Gala Pa MD PGY-4, General Surgery Pager# [phone] 12/16/2024 6:37 AM [1] atorvastatin, 40 mg, Oral, Nightly dicyclomine, 20 mg, Oral, Daily metoprolol tartrate, 50 mg, Oral, BID pantoprazole, 40 mg, Oral, qAM AC sertraline, 50 mg, Oral, BID sodium chloride 0.9%, 10 mL, IntraVENous, 2 times per day [2] heparin, 5-30 Units/kg/hr, Last Rate: 16 Units/kg/hr (12/16/24 0601) [3] PRN medications: acetaminophen, heparin, heparin, ondansetron ODT OR ondansetron, polyethylene glycol (PEG) 3350, sodium chloride, sodium chloride 0.9% Cosigned by Charissa Short MD at 12/16/2024 11:38 AM EDT Associated attestation - Charissa Short MD - 12/16/2024 11:38 AM EDT I saw and evaluated the patient. I agree with the findings and plan of care as documented in the resident s note unless otherwise noted below. Plan for left lower extremity/iliac vein mechanical thrombectomy today. All questions have been answered to the patient's satisfaction and she has elected to proceed. Hospitalist Progress Note 12/15/2024 Subjective: Admit Date: 12/14/2024 PCP: No primary care provider on file. Room#: 03/09 Interval History: Patient has a history of DVT and was on Plavix however in December 11 had lower extremity edema diagnosed with new DVT and was started on Eliquis. Since being on Eliquis she has has had worsening of lower extremity edema no improvement. Denies chest pain shortness of breath abdominal pain nausea vomiting diarrhea lightheadedness dizziness hematuria hematochezia. Patient follows with Dr. Goldberg at [facility] and is scheduled for thrombectomy and heparin bridge next week. Dr. Goldberg is on vacation this week. Discussed with Dr. Rico with vascular surgery. Family history of DVT Patient reports no improvement in lower extremity edema and pain Patient was seen in ER bed 31 On room air, blood pressure stable, afebrile NPO diet with enteral medications 24HR INTAKE/OUTPUT: No intake or output data in the 24 hours ending 12/15/24 1046 Past Medical History: Medical History[1] LABS: CBC: Recent Labs 12/14/24195012/15/24 0623 WBC 5.8 6.1 RBC 4.18 3.95 HGB 12.5 11.6* HCT 38.1 36.1 MCV 91.1 91.4 RDW 12.8 12.7 PLT 228 204 BMP: Recent Labs 12/14/24195012/15/24 0623 NA 139 140 K 3.5 4.2 CL 108* 108* CO2 25 27 BUN 16 14 CREATININE 0.78 0.71 GLUCOSE 89 93 CALCIUM 8.8 8.9 ANIONGAP 6 5 LIVER PROFILE: Recent Labs 12/14/241950 AST 31 ALT 28 BILITOT 0.6 ALKPHOS 117 PROT 6.8 PT/INR: Recent Labs 12/14/241950 PROTIME 10.5 INR 1.0 CARDIAC ENZYMES: No results for input(s): TROPONINI in the last 72 hours. Procalcitonin: No results found for: PROCAL COVID-19 PCR: No results for input(s): COVID19 in the last 72 hours. Objective: Vitals: BP 112/79 (BP Location: Left arm, Patient Position: Sitting) Pulse 60 Temp 36.7 C (98.1 F) (Temporal) Resp 16 Ht 5' 4 (1.626 m) Wt 145 lb (65.8 kg) SpO2 96% BMI 24.89 kg/m Pulse Ox: SpO2 Av.4 % Min: 95 % Max: 99 % Supplemental O2: Physical Exam HENT: Head: Normocephalic and atraumatic. Cardiovascular: Rate and Rhythm: Normal rate and regular rhythm. Pulmonary: Effort: Pulmonary effort is normal. No respiratory distress. Abdominal: General: Bowel sounds are normal. Palpations: Abdomen is soft. Tenderness: There is no abdominal tenderness. Musculoskeletal: Left lower leg: Edema present. Neurological: Mental Status: She is alert and oriented to person, place, and time. Medications: Scheduled PRN Scheduled Meds[2] PRN Meds[3] Continuous Continuous Meds[4] Assessment 59-year-old female presents with left lower extremity pain and edema. In 2022 patient had stents placed and was on placed on Plavix at that time. Prior to that patient was on Eliquis and then switched from Eliquis to Plavix after stents placement. Patient has a history of DVT and was on Plavix however in December 11 had right lower extremity edema diagnosed with new DVT and was started on Eliquis. Since being on Eliquis she has has had worsening of right lower extremity edema no improvement. Denies chest pain shortness of breath abdominal pain nausea vomiting diarrhea lightheadedness dizziness hematuria hematochezia. Patient follows with Dr. Goldberg at [facility] and is scheduled for thrombectomy and heparin bridge next week. Dr. Goldberg is on vacation this week. Discussed with Dr. Rico with vascular surgery. Family history of DVT CT of the chest negative for pulmonary emboli Continue Eliquis, monitor for signs of improvement December 15 venous duplex acute occlusive DVT left common iliac vein left internal iliac vein left external iliac vein and left common femoral vein. No evidence of DVT or superficial vein thrombosis in right lower extremity Acute DVT, left lower extremity History of DVT Abnormal troponin Denies CP SOB CT coronary pending Extended Emergency Contact Information Primary Emergency Contact: Charles Ahn Mobile Relation: Spouse Preferred language: Tongan Body Press Operator needed? No Alen Ordonez DO Division of Hospitalist Medicine [facility] [1] History reviewed. No pertinent past medical history. [2] apixaban, 10 mg, Oral, BID Followed by [START ON 12/21/2024] apixaban, 5 mg, Oral, BID sodium chloride 0.9%, 10 mL, IntraVENous, 2 times per day [3] PRN medications: ondansetron ODT OR ondansetron, polyethylene glycol (PEG) 3350, sodium chloride, sodium chloride 0.9% [4] documented in this encounter [facility] 12-17-2024 Nurse Note Updated PRODUCTION CONTROL PEGBOARD CLERK Billy on pt current bp status. Last bp 92/54 MAP of 67. [facility] 12-16-2024 Nurse Note Patient blood pressure 90/55(63). She feels fine no complaints in talking with family. Left leg with deja wrap intact no bleeding noted. Dr Cornelius [facility] 12-16-2024 Nurse Note Patient heparin restarted per order now that she is back from surgery. She did go to surgery shortly after last PTT drawn and gtt was stopped when she went per surgery [facility] 12-16-2024 Nurse Note Patient returned from PACU. She is alert and oriented. She states she currently is having no pain. Deja wrap to left leg dry and intact. Call light in reach and family at bedside [facility] 12-16-2024 Nurse Note Patients family sent to room [facility] 12-16-2024 Miscellaneous Notes Patients family sent to room OPERATIVE REPORT DATE OF SERVICE: 12/16/2024 PRE-PROCEDURE DIAGNOSIS: Acute deep venous thrombosis of previously placed left iliac vein stent, left external iliac vein, common femoral vein and proximal femoral vein POST-PROCEDURE DIAGNOSIS: As above PROCEDURE PERFORMED: 1) Percutaneous access to the left popliteal vein under ultrasound guidance 2) Suction venous thrombectomy of left common femoral vein, external iliac vein, and common iliac vein with SincroPoolra 16 F Flash suction device 3) Completion venography SURGEON: Charissa Short MD ASSISTANTS: Sunny Martinez MD (PGY-5) FINDINGS: Patent left popliteal vein. Thrombus present in proximal femoral vein. Thrombosed left common iliac vein wallstent. Successful thrombectomy with confucianist of venous flow through the stent into the inferior vena cava ANESTHESIA: General ESTIMATED BLOOD LOSS: 500 ml COMPLICATIONS: None SPECIMENS: None IMPLANTS: None WOUND CLASS: 1 FLUORO TIME: 5.85 min DOSE: 90.96 mGy CONTRAST: 59 ml INDICATIONS FOR PROCEDURE: The patient is a 59 yo female with previous history of bilateral common iliac vein stents placed at an outside institution. She has had an issue with thrombosis of one of the stents in the past and was treated with Eliquis. This was recently stopped as she had completed treatment. She developed left lower extremity swelling and pain and was found to have left lower extremity DVT including a thrombosed iliac vein stent. Mechanical thrombectomy was recommended for symptom relief. Risks, benefits, and alternatives were discussed with the patient and she elected to proceed. PROCEDURE IN DETAIL: The patient was taken to the operating room and general anesthesia was induced. The patient was then positioned in the prone position on the operating room table. The patient's bilateral popliteal spaces were prepped and draped in usual sterile fashion. A timeout was performed verifying the correct patient, side, site, and procedure to be performed. Heparin was stopped upon arrival to the operating room. Under ultrasound guidance, the patient's left popliteal vein was identified and accessed using a micropuncture needle kit. Seldinger technique was then used to place a micro sheath. Venography was then performed through the sheath to confirm appropriate access within the vein. This was confirmed. A Bentson wire was then positioned within the left common femoral vein. The sheath was then upsized to a 16 Dominican sheath. There was general oozing prior to the 16 Dominican sheath placement likely from the patient's varicosities which are present on the posterior aspect of the knee. With the sheath in place, this was hemostatic. A 16 Dominican Penumbra Flash suction thrombectomy catheter was then prepared per signs sales representative instructions. Suction thrombectomy was then performed of the proximal femoral vein, common femoral vein, external iliac vein, and common iliac vein within the previously placed Wallstent. Multiple passes were made with the suction thrombectomy catheter. Venography was then performed. This showed patency of the external iliac vein on the left with a small flow channel present through the remainder of the Wallstent proximally. Additional passes were then made with the penumbra catheter. After several passes had been made, additional venography was performed. This showed improved patency throughout the stent. There was excellent flow into the inferior vena cava. The catheter was then removed on suction. Venography was performed through the sheath which showed patency of the femoral vein, common femoral vein, and external iliac vein without residual thrombus. A 2-0 silk U-stitch was placed in the popliteal space with removal of the sheath. Manual pressure was held to achieve hemostasis. There continued to be oozing from the skin despite manual pressure secondary to the patient's varicosity. A second 2-0 silk stitch was placed with successful hemostasis secured. A sterile dressing was then applied. The patient was returned to the supine position. The left lower extremity was wrapped with an Deja wrap extending from the foot to the mid thigh. She was awakened from general anesthesia and transferred to the recovery area in stable condition. Charissa Short MD Vascular Surgery Date: 12/16/2024 Location: [facility] OR Name: Karolina Ahn, : 1965, Diagnosis Pre-op Diagnosis * Acute deep vein thrombosis (DVT) of proximal vein of left lower extremity (HCC) [I82.4Y2] Post-op Diagnosis * Acute deep vein thrombosis (DVT) of proximal vein of left lower extremity (HCC) [I82.4Y2] Procedures MECHANICAL THROMBECTOMY LEFT ILIAC VEIN 60483 - [place] [facility] DIR/W/CATH VENA CAVA ILIAC VEIN ABDL INC Surgeons * Charissa Short - Primary Procedure Summary Anesthesia: General ASA: III Estimated Blood Loss: 500 mL Drains: * None in log * Staff: Asset Analyst: Guanako Elam RN Relief Scrub: Suhail Zarate RN Scrub Person: Eileen Ricardo Findings: 2 sutures behind left knee, leg wrapped Complications: None; patient tolerated the procedure well. Specimens Collected: No specimens collected during this procedure. Wound Class: Class I: Clean Blood Products: None Prophylactic Antibiotics: Pre-operative antibiotics were not given because antibiotics are not indicated for this procedure. Cosigned by Charissa Short MD at 12/16/2024 2:47 PM EDT Care Management Progress Note Short Medical why still here: Admitted OBS via ED for increased pain and edema of LLE in setting of diagnosed DVT at OSH. Surgical intervention (Thrombectomy) planned. On Heparin gtt. Planned Discharge Disposition: (TBD) Barriers/Today we still Wait: Administering IV medications, Clinical stability, Procedure (comment) Length of Stay (Days): 0 GMLOS: No GMLOS Documented TCC will continue to follow. documented in this encounter [facility] 12-16-2024 Note Patient: Karolina martínez Procedure Summary Date: 12/16/24 Room / Location: [facility] OR [address] [place] [address] Operating Room Anesthesia Start: 1131 Anesthesia Stop: 1314 Procedure: MECHANICAL THROMBECTOMY LEFT ILIAC VEIN (Left) Diagnosis: Acute deep vein thrombosis (DVT) of proximal vein of left lower extremity (HCC) Surgeons: Charissa Short MD Responsible Provider: Cliff Ceja MD Anesthesia Type: general ASA Status: 3 Anesthesia Type: general Vitals Value Taken Time BP 120/55 12/16/24 13:15 Temp 35.8 12/16/24 13:16 Pulse 65 12/16/24 13:16 Resp 13 12/16/24 13:16 SpO2 96 % 12/16/24 13:16 Vitals shown include unfiled device data. Anesthesia Post Evaluation Patient location during evaluation: PACU Patient participation: complete - patient participated Level of consciousness: alert and awake Pain management: satisfactory to patient Airway patency: patent Dental Injury: no Cardiovascular status: acceptable, blood pressure returned to baseline and hemodynamically stable Respiratory status: acceptable and spontaneous ventilation Hydration status: euvolemic Nausea/Vomiting: controlled No notable events documented. Patient can be discharged once all PACU criteria has been met. [facility] 12-16-2024 Note Patient: Karolina martínez Procedure Summary Date: 12/16/24 Room / Location: [address] Operating Room Anesthesia Start: 1131 Anesthesia Stop: 1314 Procedure: MECHANICAL THROMBECTOMY LEFT ILIAC VEIN (Left) Diagnosis: Acute deep vein thrombosis (DVT) of proximal vein of left lower extremity (HCC) Surgeons: Charissa Short MD Responsible Provider: Cliff Ceja MD Anesthesia Type: general ASA Status: 3 Anesthesia Type: general Vitals Value Taken Time BP 104/61 12/16/24 13:12 Temp 35.8 12/16/24 13:15 Pulse 67 12/16/24 13:15 Resp 16 12/16/24 13:15 SpO2 96 % 12/16/24 13:15 Vitals shown include unfiled device data. Anesthesia Post Evaluation Patient participation: complete - patient participated Level of consciousness: alert and awake Pain management: satisfactory to patient Multimodal analgesia pain management approach Airway patency: patent Two or more strategies used to mitigate risk of obstructive sleep apnea Respiratory status: acceptable Cardiovascular status: acceptable Hydration status: acceptable No notable events documented. MIPS #430 PONV Patient received an inhalational anesthetic (4554F) Patient does not exhibit three or more risk factors for PONV (X0430)) MIPS # 424 Perioperative Temperature Management Anesthesia time was 60 minutes or longer (4255F) Anesthesai administered was General (inhalational or TIVA) or Neuraxial block (X0424) At least one body temperature greater than 95.8F/35.5C achieved within the 30 mins immediately prior to or the 15 minutes immediately following anesthesia end time (G9771) MIPS #477 Multimodal Pain Management Not emergent case Patient was administered multimodal pain management (two or more drugs and/or interventions excluding systemic opioids) in the periopeartive period occurring at some time between 6 hours prior to anesthesia start time until discharged from PACU (G2148) MIPS #404 Anesthesiology Smoking Abstinence The patient is not a current smoker (e.g. cigarette, cigar, pipe, e-cigarette/vaping/marijuana) If no stop here (XX404) I completed my handoff to the receiving clinician during which we: 1. Identified the patient 2. Identified the responsible provider 3. Reviewed the pertinent medical history 4. Discussed the surgical course 5. Reviewed intra-op anesthesia management and issues during anesthesia 6. Set expectations for post-procedure period 7. Allowed opportunity for questions and acknowledgement of understanding. [facility] 12-16-2024 Note Airway Date/Time: 12/16/2024 11:41 AM Reason: scheduled General Information and Staff Patient location during procedure: Procedural Resident/RANGE EXAMINER: Shelby Youssef CRNA Performed: RANGE EXAMINER Patient Condition Indications for airway management: anesthesia Patient position: sniffing Sedation level: Asleep Final Airway Details Preoxygenated: yes Final airway type: endotracheal airway Successful airway: ETT Cuffed: yes Successful intubation technique: direct laryngoscopy Adjuncts used in placement: intubating stylet Endotracheal tube insertion site: oral Blade: Konstantin Blade size: #3 ETT size (mm): 7.0 Cormack-Lehane Classification: grade I - full view of glottis Placement verified by: chest auscultation and capnometry Measured from: lips ETT to lips (cm): 21 Number of attempts at approach: 1 [facility] 12-16-2024 Note Hospitalist Progress Note 12/16/2024 Subjective: Admit Date: 12/14/2024 PCP: No primary care provider on file. Room#: OR/NONE Interval History: Patient reports improvement in left lower extremity edema. Patient's and grandchildren at bedside. Patient seen prior to surgery. Denies chest pain shortness breath abdominal pain nausea vomiting diarrhea lightheadedness dizziness NPO diet with enteral medications 24HR INTAKE/OUTPUT: No intake or output data in the 24 hours ending 12/16/24 1204 Past Medical History: Medical History[1] LABS: CBC: Recent Labs 12/14/24195012/15/2423 12/16/24 0522 WBC 5.8 6.1 5.7 RBC 4.18 3.95 3.95 HGB 12.5 11.6* 11.7 HCT 38.1 36.1 36.4 MCV 91.1 91.4 92.2 RDW 12.8 12.7 12.8 PLT 228 204 227 BMP: Recent Labs 12/14/24195012/15/24 0623 12/16/24 0522 NA 139 140 139 K 3.5 4.2 4.0 CL 108* 108* 108* CO2 25 27 25 BUN 16 14 13 CREATININE 0.78 0.71 0.73 GLUCOSE 89 93 92 CALCIUM 8.8 8.9 8.7 ANIONGAP 6 5 6 LIVER PROFILE: Recent Labs 12/14/241950 AST 31 ALT 28 BILITOT 0.6 ALKPHOS 117 PROT 6.8 PT/INR: Recent Labs 12/14/241950 PROTIME 10.5 INR 1.0 CARDIAC ENZYMES: No results for input(s): TROPONINI in the last 72 hours. Procalcitonin: No results found for: PROCAL COVID-19 PCR: No results for input(s): COVID19 in the last 72 hours. Objective: Vitals: BP 114/66 Pulse 51 Temp 36.1 ?C (97 ?F) (Temporal) Resp 16 Ht 5' 4 (1.626 m) Wt 145 lb (65.8 kg) SpO2 95% BMI 24.89 kg/m? Pulse Ox: SpO2 Av.1 % Min: 94 % Max: 98 % Supplemental O2: Physical Exam HENT: Head: Normocephalic and atraumatic. Cardiovascular: Rate and Rhythm: Normal rate and regular rhythm. Pulmonary: Effort: Pulmonary effort is normal. No respiratory distress. Abdominal: General: Bowel sounds are normal. Palpations: Abdomen is soft. Tenderness: There is no abdominal tenderness. Musculoskeletal: Left lower leg: Edema present. Neurological: Mental Status: She is alert and oriented to person, place, and time. Medications: Scheduled PRN Scheduled Meds[2] PRN Meds[3] Continuous Continuous Meds[4] Assessment 59-year-old female presents with left lower extremity pain and edema. In 2022 patient had stents placed and was on placed on Plavix at that time. Prior to that patient was on Eliquis and then switched from Eliquis to Plavix after stents placement. Patient has a history of DVT and was on Plavix however in December 11 had right lower extremity edema diagnosed with new DVT and was started on Eliquis. Since being on Eliquis she has has had worsening of right lower extremity edema no improvement. Denies chest pain shortness of breath abdominal pain nausea vomiting diarrhea lightheadedness dizziness hematuria hematochezia. Patient follows with Dr. Goldberg at [facility] and is scheduled for thrombectomy and heparin bridge next week. Dr. Goldberg is on vacation this week. Discussed with Dr. Rico with vascular surgery. Family history of DVT CT of the chest negative for pulmonary emboli Continue Eliquis, monitor for signs of improvement CTA heart coronary angiogram No evidence of atherosclerotic changes or luminal stenosis in the coronary arteries. The coronary calcium score is 9 (Agatston method). Ascending aorta measures 3.9cm at the level of the pulmonary artery bifurcation. December 15 venous duplex acute occlusive DVT left common iliac vein left internal iliac vein left external iliac vein and left common femoral vein. No evidence of DVT or superficial vein thrombosis in right lower extremity . December 16 MECHANICAL THROMBECTOMY LEFT ILIAC VEIN Acute DVT, left lower extremity History of DVT Abnormal troponin Denies CP SOB Extended Emergency Contact Information Primary Emergency Contact: Charles Ahn Mobile Relation: Spouse Preferred language: Tongan Body Press Operator needed? No Alen Ordnoez DO Division of Hospitalist Medicine Acute care [facility] [1] History reviewed. No pertinent past medical history. [2] [Transfer Hold] atorvastatin, 40 mg, Oral, Nightly [Transfer Hold] dicyclomine, 20 mg, Oral, Daily metoprolol tartrate, 50 mg, Oral, BID [Transfer Hold] pantoprazole, 40 mg, Oral, qAM AC [Transfer Hold] sertraline, 50 mg, Oral, BID [Transfer Hold] sodium chloride 0.9%, 10 mL, IntraVENous, 2 times per day [3] PRN medications: [Transfer Hold] acetaminophen, [Transfer Hold] heparin, [Transfer Hold] heparin, [Transfer Hold] ondansetron ODT OR [Transfer Hold] ondansetron, [Transfer Hold] polyethylene glycol (PEG) 3350, [Transfer Hold] sodium chloride, [Transfer Hold] sodium chloride 0.9% [4] heparin, 5-30 Units/kg/hr, Last Rate: 16 Units/kg/hr (12/16/24 0717) [facility] 12-16-2024 Nurse Note To or [facility] 12-16-2024 Note OPERATIVE REPORT DATE OF SERVICE: 12/16/2024 PRE-PROCEDURE DIAGNOSIS: Acute deep venous thrombosis of previously placed left iliac vein stent, left external iliac vein, common femoral vein and proximal femoral vein POST-PROCEDURE DIAGNOSIS: As above PROCEDURE PERFORMED: 1) Percutaneous access to the left popliteal vein under ultrasound guidance 2) Suction venous thrombectomy of left common femoral vein, external iliac vein, and common iliac vein with Penumbra 16 F Flash suction device 3) Completion venography SURGEON: Charissa Short MD ASSISTANTS: Sunny Martinez MD (PGY-5) FINDINGS: Patent left popliteal vein. Thrombus present in proximal femoral vein. Thrombosed left common iliac vein wallstent. Successful thrombectomy with confucianist of venous flow through the stent into the inferior vena cava ANESTHESIA: General ESTIMATED BLOOD LOSS: 500 ml COMPLICATIONS: None SPECIMENS: None IMPLANTS: None WOUND CLASS: 1 FLUORO TIME: 5.85 min DOSE: 90.96 mGy CONTRAST: 59 ml INDICATIONS FOR PROCEDURE: The patient is a 59 yo female with previous history of bilateral common iliac vein stents placed at an outside institution. She has had an issue with thrombosis of one of the stents in the past and was treated with Eliquis. This was recently stopped as she had completed treatment. She developed left lower extremity swelling and pain and was found to have left lower extremity DVT including a thrombosed iliac vein stent. Mechanical thrombectomy was recommended for symptom relief. Risks, benefits, and alternatives were discussed with the patient and she elected to proceed. PROCEDURE IN DETAIL: The patient was taken to the operating room and general anesthesia was induced. The patient was then positioned in the prone position on the operating room table. The patient's bilateral popliteal spaces were prepped and draped in usual sterile fashion. A timeout was performed verifying the correct patient, side, site, and procedure to be performed. Heparin was stopped upon arrival to the operating room. Under ultrasound guidance, the patient's left popliteal vein was identified and accessed using a micropuncture needle kit. Seldinger technique was then used to place a micro sheath. Venography was then performed through the sheath to confirm appropriate access within the vein. This was confirmed. A Bentson wire was then positioned within the left common femoral vein. The sheath was then upsized to a 16 Dominican sheath. There was general oozing prior to the 16 Dominican sheath placement likely from the patient's varicosities which are present on the posterior aspect of the knee. With the sheath in place, this was hemostatic. A 16 Dominican Penumbra Flash suction thrombectomy catheter was then prepared per signs sales representative instructions. Suction thrombectomy was then performed of the proximal femoral vein, common femoral vein, external iliac vein, and common iliac vein within the previously placed Wallstent. Multiple passes were made with the suction thrombectomy catheter. Venography was then performed. This showed patency of the external iliac vein on the left with a small flow channel present through the remainder of the Wallstent proximally. Additional passes were then made with the penumbra catheter. After several passes had been made, additional venography was performed. This showed improved patency throughout the stent. There was excellent flow into the inferior vena cava. The catheter was then removed on suction. Venography was performed through the sheath which showed patency of the femoral vein, common femoral vein, and external iliac vein without residual thrombus. A 2-0 silk U-stitch was placed in the popliteal space with removal of the sheath. Manual pressure was held to achieve hemostasis. There continued to be oozing from the skin despite manual pressure secondary to the patient's varicosity. A second 2-0 silk stitch was placed with successful hemostasis secured. A sterile dressing was then applied. The patient was returned to the supine position. The left lower extremity was wrapped with an Deja wrap extending from the foot to the mid thigh. She was awakened from general anesthesia and transferred to the recovery area in stable condition. Charissa Short MD Vascular Surgery [facility] 12-16-2024 Procedure note OPERATIVE REPORT DATE OF SERVICE: 12/16/2024 PRE-PROCEDURE DIAGNOSIS: Acute deep venous thrombosis of previously placed left iliac vein stent, left external iliac vein, common femoral vein and proximal femoral vein POST-PROCEDURE DIAGNOSIS: As above PROCEDURE PERFORMED: 1) Percutaneous access to the left popliteal vein under ultrasound guidance 2) Suction venous thrombectomy of left common femoral vein, external iliac vein, and common iliac vein with Penumbra 16 F Flash suction device 3) Completion venography SURGEON: Charissa Short MD ASSISTANTS: Sunny Martinez MD (PGY-5) FINDINGS: Patent left popliteal vein. Thrombus present in proximal femoral vein. Thrombosed left common iliac vein wallstent. Successful thrombectomy with confucianist of venous flow through the stent into the inferior vena cava ANESTHESIA: General ESTIMATED BLOOD LOSS: 500 ml COMPLICATIONS: None SPECIMENS: None IMPLANTS: None WOUND CLASS: 1 FLUORO TIME: 5.85 min DOSE: 90.96 mGy CONTRAST: 59 ml INDICATIONS FOR PROCEDURE: The patient is a 59 yo female with previous history of bilateral common iliac vein stents placed at an outside institution. She has had an issue with thrombosis of one of the stents in the past and was treated with Eliquis. This was recently stopped as she had completed treatment. She developed left lower extremity swelling and pain and was found to have left lower extremity DVT including a thrombosed iliac vein stent. Mechanical thrombectomy was recommended for symptom relief. Risks, benefits, and alternatives were discussed with the patient and she elected to proceed. PROCEDURE IN DETAIL: The patient was taken to the operating room and general anesthesia was induced. The patient was then positioned in the prone position on the operating room table. The patient's bilateral popliteal spaces were prepped and draped in usual sterile fashion. A timeout was performed verifying the correct patient, side, site, and procedure to be performed. Heparin was stopped upon arrival to the operating room. Under ultrasound guidance, the patient's left popliteal vein was identified and accessed using a micropuncture needle kit. Seldinger technique was then used to place a micro sheath. Venography was then performed through the sheath to confirm appropriate access within the vein. This was confirmed. A Bentson wire was then positioned within the left common femoral vein. The sheath was then upsized to a 16 Dominican sheath. There was general oozing prior to the 16 Dominican sheath placement likely from the patient's varicosities which are present on the posterior aspect of the knee. With the sheath in place, this was hemostatic. A 16 Dominican Penumbra Flash suction thrombectomy catheter was then prepared per signs sales representative instructions. Suction thrombectomy was then performed of the proximal femoral vein, common femoral vein, external iliac vein, and common iliac vein within the previously placed Wallstent. Multiple passes were made with the suction thrombectomy catheter. Venography was then performed. This showed patency of the external iliac vein on the left with a small flow channel present through the remainder of the Wallstent proximally. Additional passes were then made with the penumbra catheter. After several passes had been made, additional venography was performed. This showed improved patency throughout the stent. There was excellent flow into the inferior vena cava. The catheter was then removed on suction. Venography was performed through the sheath which showed patency of the femoral vein, common femoral vein, and external iliac vein without residual thrombus. A 2-0 silk U-stitch was placed in the popliteal space with removal of the sheath. Manual pressure was held to achieve hemostasis. There continued to be oozing from the skin despite manual pressure secondary to the patient's varicosity. A second 2-0 silk stitch was placed with successful hemostasis secured. A sterile dressing was then applied. The patient was returned to the supine position. The left lower extremity was wrapped with an Deja wrap extending from the foot to the mid thigh. She was awakened from general anesthesia and transferred to the recovery area in stable condition. Charissa Short MD Vascular Surgery [facility] Phone: 12-16-2024 Procedure note Date: 12/16/2024 Location: [facility] OR Name: Karolina Ahn, : 1965, Diagnosis Pre-op Diagnosis * Acute deep vein thrombosis (DVT) of proximal vein of left lower extremity (HCC) [I82.4Y2] Post-op Diagnosis * Acute deep vein thrombosis (DVT) of proximal vein of left lower extremity (HCC) [I82.4Y2] Procedures MECHANICAL THROMBECTOMY LEFT ILIAC VEIN [address]42 - [place] [facility] DIR/W/CATH VENA CAVA ILIAC VEIN ABDL INC Surgeons * Charissa Short - Primary Procedure Summary Anesthesia: General ASA: III Estimated Blood Loss: 500 mL Drains: * None in log * Staff: Asset Analyst: Guanako Elam RN Relief Scrub: Suhail Zarate RN Scrub Person: Eileen Ricardo Findings: 2 sutures behind left knee, leg wrapped Complications: None; patient tolerated the procedure well. Specimens Collected: No specimens collected during this procedure. Wound Class: Class I: Clean Blood Products: None Prophylactic Antibiotics: Pre-operative antibiotics were not given because antibiotics are not indicated for this procedure. Cosigned by Charissa Short MD at 12/16/2024 2:47 PM EDT [facility] Phone: 12-16-2024 Note Patient: Karolina martínez Procedure Information Date/Time: 12/16/24 1130 Procedure: THROMBECTOMY, VEIN, VENA CAVA OR ILIAC (Left) - Prone positioning Location: [facility] OR [address] [place] [address] Operating Room Surgeons: Charissa Short MD 59 y.o. female w psh bilat CIV stents for apparent pelvic congestion syndrome now with occluded L CIV stent and acute left dvt of ileofemoral system. Relevant Problems Cardio (+) Acute deep vein thrombosis (DVT) of proximal vein of left lower extremity (HCC) Cardiovascular (+) Acute deep vein thrombosis (DVT) of proximal vein of left lower extremity (HCC) Past Medical History: No past medical history on file. Past Surgical History: No past surgical history on file. Social History: TOBACCO: reports that she has never smoked. She has never used smokeless tobacco. ETOH: has no history on file for alcohol use. Social History Substance and Sexual Activity Drug Use Never Family History: Family History[1] Screening: unknown Clinical information reviewed: Tobacco Allergies Meds Problems Med Hx Surg Hx Fam Hx Soc Hx Physical Exam Airway Mallampati: I TM distance: >3 FB Neck ROM: full Mouth Open: normal Cardiovascular Dental dentition normal Pulmonary Abdominal Anesthesia Plan Any family history or previous problems with anesthesia no We discussed risks, benefits, alternatives and likelihood of success with the Patient. ASA 3 general Any family history or previous problems with anesthesia noUse of blood products discussed with who consented to blood products. The patient is not a current smoker. patient is NPO appropriate Anesthesia [place] Considerations Heparin gtt PHILLIP Screening Labs: Lab Results Component Value Date WBC 5.7 12/16/2024 HGB 11.7 12/16/2024 HCT 36.4 12/16/2024 MCV 92.2 12/16/2024 PLT 227 12/16/2024 Lab Results Component Value Date NA 139 12/16/2024 K 4.0 12/16/2024 CL 108 (H) 12/16/2024 CO2 25 12/16/2024 BUN 13 12/16/2024 CREATININE 0.73 12/16/2024 GLUCOSE 92 12/16/2024 CALCIUM 8.7 12/16/2024 PROT 6.8 12/14/2024 ALKPHOS 117 12/14/2024 AST 31 12/14/2024 ALT 28 12/14/2024 EGFR >90.0 12/16/2024 Pain Score: Scheduled No echocardiogram results found for the past 14 days 12/14/24 ECG 12-LEAD 12/15/2024 4:17 AM (Final) Impression Sinus rhythm No previous ECG for comparison Electronically Signed On 12-15-2024 04:17:34 EDT by Damien Rahman Signed by: Damien Rahman DO on 12/15/2024 4:17 AM Equipment Requests: Additional Equipment Requests [1] No family history on file. [facility] 12-16-2024 Note Care Management Prog ress Note Short Medical why still here: Admitted OBS via ED for increased pain and edema of LLE in setting of diagnosed DVT at OSH. Surgical intervention (Thrombectomy) planned. On Heparin gtt. Planned Discharge Disposition: (TBD) Barriers/Today we still Wait: Administering IV medications, Clinical stability, Procedure (comment) Length of Stay (Days): 0 GMLOS: No GMLOS Documented TCC will continue to follow. [facility] 12-16-2024 Progress note Formatting of t his note might be different from the original. Care Management Progress Note Short Medical why still here: Admitted OBS via ED for increased pain and edema of LLE in setting of diagnosed DVT at OSH. Surgical intervention (Thrombectomy) planned. On Heparin gtt. Planned Discharge Disposition: (TBD) Barriers/Today we still Wait: Administering IV medications, Clinical stability, Procedure (comment) Length of Stay (Days): 0 GMLOS: No GMLOS Documented TCC will continue to follow. [facility] 12-15-2024 Emergency department Note Transport at bedside. Per tele order patient is okay to go off tele monitor for transport. [facility] 12-15-2024 Emergency department Note Transport at bedside. Per tele order patient is okay to go off tele monitor for transport. Pt placed on tele monitor at this time. This RN called Bed Coordinator in regards to bed being removed from patient chart. Per Bed Coordinator patient will be going to 1C 136A. Secure chat sent to DO Lyndsey at this time in regards to no tele order at this time. Pt ordering meal tray at this time. Pt rounded on at this time. Pt resting in bed. Breathing even and unlabored. No signs of distress noted. RR 19. Report to CHERI Ruiz. Pt provided meal tray at this time. Pt provided diet menu. Pt placed in hospital bed at this time. EMERGENCY DEPARTMENT ENCOUNTER Pt Name: Karolina Ahn Birthdate 1965 Date of evaluation: 12/14/2024 ED Provider: Riley Mcmillan NP CHIEF COMPLAINT Chief Complaint Patient presents with Leg Pain Patient has a confirmed DVT in the left leg, denies chest pain or SOB HISTORY OF PRESENT ILLNESS (Location/Symptom, Timing/Onset, Context/Setting, Quality, Duration, Modifying Factors, Severity) Note limiting factors. I wore appropriate PPE for the entirety of this encounter. Karolina Ahn is a 59 y.o. female who presents to the emergency department with chief complaint of Worsening pain and swelling in her left thigh and left lower leg after being told she has a new DVT on Saturday. Patient states she is compliant with her Eliquis but it is getting worse. Patient has a history of previous DVTs. Denies chest pain or shortness of breath. States she called her physician and they sent her to the ER for evaluation and treatment. Denies abdominal pain or nausea vomiting or diarrhea. Accompanied by . Patient had previous vascular study done on Saturday with positive DVT at [facility] (picture of report was scanned into pt's record). History provided by: Patient Nursing Notes were reviewed. REVIEW OF SYSTEMS Review of Systems Constitutional: Negative for chills and fever. HENT: Negative for ear pain and sore throat. Eyes: Negative for pain and visual disturbance. Respiratory: Negative for cough and shortness of breath. Cardiovascular: Negative for chest pain and palpitations. Gastrointestinal: Negative for abdominal pain and vomiting. Genitourinary: Negative for dysuria and hematuria. Musculoskeletal: Positive for joint swelling. Negative for arthralgias, back pain, myalgias, neck pain and neck stiffness. Left leg swelling Skin: Positive for color change. Negative for rash. Neurological: Negative for seizures and syncope. All other systems reviewed and are negative. Please see HPI for pertinent positives and negatives. All other systems reviewed and negative PAST MEDICAL HISTORY Medical History[1] SURGICAL HISTORY Surgical History[2] CURRENT MEDICATIONS Previous Medications No medications on file ALLERGIES Hydrocodone FAMILY HISTORY Family History[3] SOCIAL HISTORY Social History[4] SCREENINGS PHYSICAL EXAM ED Triage Vitals [12/14/24 1733] Temp Heart Rate Resp BP 36.7 C (98.1 F) 83 16 111/71 SpO2 Temp Source Heart Rate Source Patient Position 96 % Temporal Monitor -- BP Location FiO2 (%) -- -- Physical Exam Vitals and nursing note reviewed. Constitutional: General: She is not in acute distress. Appearance: Normal appearance. She is well-developed and normal weight. She is not ill-appearing or toxic-appearing. HENT: Head: Normocephalic and atraumatic. Nose: Nose normal. Mouth/Throat: Mouth: Mucous membranes are moist. Pharynx: Oropharynx is clear. Eyes: Conjunctiva/sclera: Conjunctivae normal. Cardiovascular: Rate and Rhythm: Normal rate and regular rhythm. Pulses: Normal pulses. Dorsalis pedis pulses are 2+ on the left side. Posterior tibial pulses are 2+ on the left side. Heart sounds: Normal heart sounds, S1 normal and S2 normal. No murmur heard. Pulmonary: Effort: Pulmonary effort is normal. No respiratory distress. Breath sounds: Normal breath sounds. Abdominal: Palpations: Abdomen is soft. Tenderness: There is no abdominal tenderness. Musculoskeletal: General: No swelling. Cervical back: Neck supple. Left upper leg: Tenderness present. No swelling, edema, deformity, lacerations or bony tenderness. Right lower leg: No edema. Left lower leg: Swelling and tenderness present. No deformity, lacerations or bony tenderness. 2+ Edema present. Lymphadenopathy: Cervical: No cervical adenopathy. Skin: General: Skin is warm and dry. Capillary Refill: Capillary refill takes less than 2 seconds. Neurological: Mental Status: She is alert and oriented to person, place, and time. Mental status is at baseline. GCS: GCS eye subscore is 4. GCS verbal subscore is 5. GCS motor subscore is 6. Psychiatric: Mood and Affect: Mood normal. DIAGNOSTIC RESULTS Procedures/EKG: EKG was reviewed by myself. Physician EKG interpretation can be found in [facility] RADIOLOGY (Per Emergency Physician): Interpretation per the Radiologist below, if available at the time of this note: CT chest angiogram w and/or wo IV contrast Final Result 1. No pulmonary embolism. 2. Bibasilar atelectasis. No consolidation or pleural effusion. Report Dictated on Electronically Signed By: Won Myrick MD Electronically Signed Date/Time: 12/14/2024 10:14 PM EDT Vascular US lower extremity venous duplex left (Results Pending) ED BEDSIDE ULTRASOUND: Performed by ED Physician - none LABS: Labs Reviewed CBC WITH AUTO DIFFERENTIAL - Abnormal Result Value Auto WBC 5.8 RBC 4.18 Hemoglobin 12.5 Hematocrit 38.1 MCV 91.1 MCH 29.9 MCHC 32.8 RDW 12.8 Platelets 228 MPV 10.2 nRBC 0.0 Neutrophils Relative 69.9 Lymphocytes Relative 16.2 Monocytes Relative 6.6 Eosinophils Relative 6.4 (*) Basophils Relative 0.7 Immature Grans % 0.2 Neutrophils Absolute 4.1 Lymphocytes Absolute 0.9 (*) Monocytes Absolute 0.4 Eosinophils Absolute 0.4 Basophils Absolute 0.0 Immature Grans Absolute 0.0 COMPREHENSIVE METABOLIC PANEL - Abnormal SODIUM 139 POTASSIUM 3.5 CHLORIDE 108 (*) CARBON DIOXIDE 25 ANION GAP 6 UREA NITROGEN 16 CREATININE 0.78 GLUCOSE 89 CALCIUM 8.8 AST (SGOT) 31 ALT 28 ALKALINE PHOSPHATASE 117 ALBUMIN 3.3 (*) BILIRUBIN, TOTAL 0.6 TOTAL PROTEIN 6.8 eGFR 87.6 HIGH SENSITIVITY TROPONIN, SERIAL BASELINE - Abnormal Troponin HS Serial Baseline 57 (*) PROTHROMBIN TIME - Normal PROTHROMBIN TIME 10.5 INR 1.0 HIGH SENSITIVITY TROPONIN, SERIAL, SECOND TEST All other labs were within normal range or not returned as of this dictation. EMERGENCY DEPARTMENT COURSE and DIFFERENTIAL DIAGNOSIS/MDM: Vitals: Vitals: 12/14/24 1733 12/14/24 1950 BP: 111/71 112/84 BP Location: Left arm Patient Position: Lying Pulse: 83 64 Resp: 16 16 Temp: 36.7 C (98.1 F) TempSrc: Temporal SpO2: 96% 99% Weight: 65.8 kg (145 lb) Height: 1.626 m (5' 4) Nursing notes and external records reviewed. ED care was supervised by Dr. Aponte who independently examined and evaluated the patient. Please see their attestation note for further details. In brief, Karolina Ahn is a 59 y.o. female who presented to the emergency department Medical Decision Making Worsening pain and swelling in her left thigh and left lower leg after being told she has a new DVT on Saturday. Patient states she is compliant with her Eliquis but it is getting worse. Patient has a history of previous DVTs. Denies chest pain or shortness of breath. States she called her physician and they sent her to the ER for evaluation and treatment. Denies abdominal pain or nausea vomiting or diarrhea. Accompanied by . Patient had previous vascular study done on Saturday with positive DVT at [facility] (picture of report was scanned into pt's record). Unfortunately vascular is not available after hours at this hospital. Previous vascular study was scanned into the system. EKG was sinus rhythm without evidence of ischemia. Initial troponin was 57. Patient was started on aspirin. CTA was ordered to rule out PE. Second Trope is pending. Otherwise her labs are unremarkable today. No leukocytosis. No anemia. Electrolytes are normal. Eliquis was ordered for patient's left leg DVT. Problems Addressed: Left leg swelling: complicated acute illness or injury Amount and/or Complexity of Data Reviewed Labs: ordered. Decision-making details documented in ED Course. Radiology: ordered. ECG/medicine tests: ordered. Decision-making details documented in ED Course. Risk OTC drugs. Prescription drug management. Medications apixaban (Eliquis) tablet 10 mg (has no administration in time range) Followed by apixaban (Eliquis) tablet 5 mg (has no administration in time range) aspirin tablet 325 mg (325 mg Oral Given 12/14/242111) iopamidol (Isovue-370) 76 % injection 75 mL (75 mL IntraVENous Given 12/14/242139) ED Course as of 12/14/242228Dec 14, 2024 1804 EKG: Sinus rhythm, 75 bpm. T wave inversion in aVR, V1. No ST deviation. No ectopy. QTc 414 ms. [WG] 2024 Troponin HS Serial Baseline(!): 57 Troponin was slightly elevated. Aspirin 325 was ordered. CTA of the chest to rule out PE was ordered. Patient is stable [WG] 2214 Shift change report given to ER attending, Dr. Aponte. Pt is stable. CTA chest neg. Trop+, pending second Troponin for dispo. [WG] ED Course User Index [WG] Riley Mcmillan NP Diagnoses as of 12/14/242228 Left leg swelling Acute deep vein thrombosis (DVT) of proximal vein of left lower extremity (HCC) I Riley Mcmillan NP am the senior clinician of record. REVAL: Stable. Tolerating PO. Nontoxic. AAOx3. Patient is pending second troponin for disposition. Denies CP or SOB. FINAL IMPRESSION 1. Left leg swelling 2. Acute deep vein thrombosis (DVT) of proximal vein of left lower extremity (HCC) DISPOSITION PATIENT REFERRED TO: No follow-up provider specified. DISCHARGE MEDICATIONS: New Prescriptions No medications on file (Comment: Please note this report has been produced using speech recognition software and may contain errors related to that system including errors in grammar, punctuation, and spelling, as well as words and phrases that may be inappropriate. If there are any questions or concerns please feel free to contact the dictating provider for clarification.) Riley Mcmillan NP (electronically signed) Emergency Medicine Provider [1] History reviewed. No pertinent past medical history. [2] History reviewed. No pertinent surgical history. [3] No family history on file. [4] Social History Socioeconomic History Marital status: Tobacco Use Smoking status: Never Smokeless tobacco: Never Substance and Sexual Activity Drug use: Never Sexual activity: Never Riley Mcmillan NP 12/14/242228 Cosigned by Anthony Aponte DO at 12/14/2024 11:40 PM EDT Emergency Department Encounter [facility] EMERGENCY DEPT Patient: Karolina Ahn : 1965 Date of Evaluation: 12/14/2024 ED Supervising Physician: Anthony Aponte DO I personally evaluated Karolina Ahn and made/approved the management plan and take responsibility for the patient management. This will serve as my Supervisory note and shared attestation. I did perform a substantive portion of the visit including all aspects of the Medical Decision Making. I wore appropriate PPE for the entirety of this encounter. In brief, Karolina Ahn is a 59 y.o. that presents to the emergency department with chief complaint of worsening leg pain and swelling. Patient has been having symptoms for just over a week now. Initial evaluated [facility] where she was diagnosed with a DVT that extends along her entire leg. She was started on Eliquis which she has been taking regularly but notes worsening pain and swelling. Was trying to get a second opinion and went to [facility] But states she never saw a provider and left out of frustration after waiting several hours. Tried to call vascular surgery and was told to go to ER at either [facility] or [place]. She currently denies any chest pain or shortness of breath. Does note family history of DVT as well as personal history of prior DVT. States she was only tested for factor V before but has been on blood thinners off that they cannot do hypercoagulability testing. Focused exam: Alert and oriented x 3. Heart is regular rate and rhythm. Lungs are clear to auscultation bilaterally. There is significant soft tissue swelling of the entirety of the left lower leg. No significant phlegmasia or pallor. Easily palpable DP and PT pulses are noted on the left leg. Brief ED course/MDM: Limited options of acute DVT treatment at this time because of limited venous duplex study availability. Her swelling is worse in based on the report she provided from the venous duplex study obtained at [facility], she does have significant clot burden. With her worsening symptoms, I do believe she warrants observation for repeat of the venous duplex and consultation with interventional cardiology to see if clot retrieval/INARi would be an option. All diagnostic, treatment, and disposition decisions were made by myself in conjunction with the [facility]. For all further details of the patient's emergency department visit, please see their documentation. (Comment: Please note this report has been produced using speech recognition software and may contain errors related to that system including errors in grammar, punctuation, and spelling, as well as words and phrases that may be inappropriate. If there are any questions or concerns please feel free to contact the dictating provider for clarification.) Anthony Aponte DO Acute [facility] Anthony Aponte DO 12/14/24 2605 documented in this encounter [facility] 12-15-2024 Emergency department Note Pt placed on tele monitor at this time. [facility] 12-15-2024 Emergency department Note This RN called Bed Coordinator in regards to bed being removed from patient chart. Per Bed Coordinator patient will be going to 1C 136A. [facility] 12-15-2024 Emergency department Note Secure chat sent to DO Lyndsey at this time in regards to no tele order at this time. [facility] 12-15-2024 Emergency department Note Pt ordering meal tray at this time. [facility] 12-15-2024 Emergency department Note Pt rounded on at this time. Pt resting in bed. Breathing even and unlabored. No signs of distress noted. RR 19. [facility] 12-15-2024 Emergency department Note Report to CHERI Ruiz. [facility] 12-15-2024 Emergency department Note Pt provided meal tray at this time. [facility] 12-15-2024 Emergency department Note Pt provided diet menu. [facility] 12-15-2024 Emergency department Note Pt placed in hospital bed at this time. [facility] 12-15-2024 Note Hospitalist Progress Note 12/15/2024 Subjective: Admit Date: 12/14/2024 PCP: No primary care provider on file. Room#: 03/09 Interval History: Patient has a history of DVT and was on Plavix however in December 11 had lower extremity edema diagnosed with new DVT and was started on Eliquis. Since being on Eliquis she has has had worsening of lower extremity edema no improvement. Denies chest pain shortness of breath abdominal pain nausea vomiting diarrhea lightheadedness dizziness hematuria hematochezia. Patient follows with Dr. Goldberg at [facility] and is scheduled for thrombectomy and heparin bridge next week. Dr. Goldberg is on vacation this week. Discussed with Dr. Rico with vascular surgery. Family history of DVT Patient reports no improvement in lower extremity edema and pain Patient was seen in ER bed 31 On room air, blood pressure stable, afebrile NPO diet with enteral medications 24HR INTAKE/OUTPUT: No intake or output data in the 24 hours ending 12/15/24 1046 Past Medical History: Medical History[1] LABS: CBC: Recent Labs 12/14/24195012/15/24 0623 WBC 5.8 6.1 RBC 4.18 3.95 HGB 12.5 11.6* HCT 38.1 36.1 MCV 91.1 91.4 RDW 12.8 12.7 PLT 228 204 BMP: Recent Labs 12/14/24195012/15/24 0623 NA 139 140 K 3.5 4.2 CL 108* 108* CO2 25 27 BUN 16 14 CREATININE 0.78 0.71 GLUCOSE 89 93 CALCIUM 8.8 8.9 ANIONGAP 6 5 LIVER PROFILE: Recent Labs 12/14/241950 AST 31 ALT 28 BILITOT 0.6 ALKPHOS 117 PROT 6.8 PT/INR: Recent Labs 12/14/241950 PROTIME 10.5 INR 1.0 CARDIAC ENZYMES: No results for input(s): TROPONINI in the last 72 hours. Procalcitonin: No results found for: PROCAL COVID-19 PCR: No results for input(s): COVID19 in the last 72 hours. Objective: Vitals: BP 112/79 (BP Location: Left arm, Patient Position: Sitting) Pulse 60 Temp 36.7 ?C (98.1 ?F) (Temporal) Resp 16 Ht 5' 4 (1.626 m) Wt 145 lb (65.8 kg) SpO2 96% BMI 24.89 kg/m? Pulse Ox: SpO2 Av.4 % Min: 95 % Max: 99 % Supplemental O2: Physical Exam HENT: Head: Normocephalic and atraumatic. Cardiovascular: Rate and Rhythm: Normal rate and regular rhythm. Pulmonary: Effort: Pulmonary effort is normal. No respiratory distress. Abdominal: General: Bowel sounds are normal. Palpations: Abdomen is soft. Tenderness: There is no abdominal tenderness. Musculoskeletal: Left lower leg: Edema present. Neurological: Mental Status: She is alert and oriented to person, place, and time. Medications: Scheduled PRN Scheduled Meds[2] PRN Meds[3] Continuous Continuous Meds[4] Assessment 59-year-old female presents with left lower extremity pain and edema. In 2022 patient had stents placed and was on placed on Plavix at that time. Prior to that patient was on Eliquis and then switched from Eliquis to Plavix after stents placement. Patient has a history of DVT and was on Plavix however in December 11 had right lower extremity edema diagnosed with new DVT and was started on Eliquis. Since being on Eliquis she has has had worsening of right lower extremity edema no improvement. Denies chest pain shortness of breath abdominal pain nausea vomiting diarrhea lightheadedness dizziness hematuria hematochezia. Patient follows with Dr. Goldberg at [facility] and is scheduled for thrombectomy and heparin bridge next week. Dr. Goldberg is on vacation this week. Discussed with Dr. Rico with vascular surgery. Family history of DVT CT of the chest negative for pulmonary emboli Continue Eliquis, monitor for signs of improvement December 15 venous duplex acute occlusive DVT left common iliac vein left internal iliac vein left external iliac vein and left common femoral vein. No evidence of DVT or superficial vein thrombosis in right lower extremity Acute DVT, left lower extremity History of DVT Abnormal troponin Denies CP SOB CT coronary pending Extended Emergency Contact Information Primary Emergency Contact: Charles Ahn Mobile Relation: Spouse Preferred language: Tongan Body Press Operator needed? No Alen Ordonez DO Division of Hospitalist Medicine [facility] [1] History reviewed. No pertinent past medical history. [2] apixaban, 10 mg, Oral, BID Followed by [START ON 12/21/2024] apixaban, 5 mg, Oral, BID sodium chloride 0.9%, 10 mL, IntraVENous, 2 times per day [3] PRN medications: ondansetron ODT OR ondansetron, polyethylene glycol (PEG) 3350, sodium chloride, sodium chloride 0.9% [4] [facility] 12-15-2024 Consult note Associated Order (s): IP CONSULT TO VASCULAR SURGERY Images from the original note were not included. Vascular Surgery Consultation Note Reason for Consult: LLE DVT HISTORY OF PRESENT ILLNESS: The patient is a 59 y.o. female who is admitted to the hospital for treatment of LLE DVT. Vascular surgery is consulted for evaluation and treatment. When patient had L CIV stent placed 11/2023 ([facility]), was switched from Eliquis to Plavix. Has been on Plavix but no anticoagulation since then. Also reports hx of R CIV stent some time prior to this. Has had multiple prior lower extremity DVTs. Mother with hx of DVT. Both patient and mother negative for factor V leiden but not tested for other genetic coagulopathies. Began to have LLE pain and swelling last week and BLE venous duplex at [place] reportedly demonstrated occlusion of left CIV stent, and associated acute DVT of LCFV, EIV, FV, PopV, T/P Trunk, PTV, Peroneal/Gastroc/Soleal vv. Pt was switched back from Plavix to Eliquis on Saturday (12/11) with plan for admission to [place] 12/23 for heparin bridge and thrombectomy by Dr Goldberg following day. However, patient developed worsening pain and swelling of LLE over last 24 hrs. Patient reports she called Dr Goldberg's office for this and was instructed to come to our ED for further evaluation. On exam, VSS and wnl. CTA chest without concern for PE. Repeat BLE duplex US with similar findings as prior study at [place] (see full reports below). IMPRESSION: Occluded left internal iliac vein stent, acute occlusive DVTs of left common/internal/external iliacs and common femoral vein. RECOMMENDATIONS: - MMPC - Elevate LLE, ideally above the level of the heart. Continue DEJA compression. - Hold Eliquis, give heparin gtt for now - Discussed with Dr Short Medical History[1] Surgical History[2] Current Medications: Continuous Meds[3] PRN Meds[4] Scheduled Meds[5] Allergies: Hydrocodone Social History Socioeconomic History Marital status: Spouse name: Not on file Number of children: Not on file Years of education: Not on file Highest education level: Not on file Occupational History Not on file Tobacco Use Smoking status: Never Smokeless tobacco: Never Substance and Sexual Activity Alcohol use: Not on file Drug use: Never Sexual activity: Never Other Topics Concern Not on file Social History Narrative Not on file Social Drivers of Health Financial Resource Strain: Not on file Food Insecurity: Not on file Transportation Needs: Not on file Physical Activity: Not on file Stress: Not on file Social Connections: Not on file Intimate Partner Violence: Not on file Housing Stability: Not on file Family History[6] REVIEW OF SYSTEMS: The chart was reviewed. Review of Systems Constitutional: Negative for activity change, chills, diaphoresis, fatigue and fever. Eyes: Negative for photophobia and visual disturbance. Respiratory: Negative for chest tightness and shortness of breath. Cardiovascular: Negative for chest pain and palpitations. Gastrointestinal: Negative for abdominal pain, nausea and vomiting. Skin: Negative for color change, pallor and wound. Neurological: Negative for dizziness, weakness, light-headedness and numbness. LABS: Lab Results Component Value Date CREATININE 0.78 12/14/2024 Lab Results Component Value Date WBC 6.1 12/15/2024 HGB 11.6 (L) 12/15/2024 HCT 36.1 12/15/2024 MCV 91.4 12/15/2024 PLT 204 12/15/2024 Lab Results Component Value Date INR 1.0 12/14/2024 PROTIME 10.5 12/14/2024 No results found for: VLDL PHYSICAL EXAM: Vitals: 12/15/24 0633 BP: 118/69 Pulse: 72 Resp: 18 Temp: SpO2: 99% Physical Exam Vitals reviewed. Constitutional: General: She is not in acute distress. Appearance: She is not ill-appearing. HENT: Head: Normocephalic and atraumatic. Right Ear: External ear normal. Left Ear: External ear normal. Nose: No congestion. Mouth/Throat: Mouth: Mucous membranes are moist. Pharynx: Oropharynx is clear. Eyes: General: No scleral icterus. Right eye: No discharge. Left eye: No discharge. Cardiovascular: Rate and Rhythm: Normal rate and regular rhythm. Pulses: Normal pulses. Femoral pulses are 2+ on the right side and 2+ on the left side. Dorsalis pedis pulses are 2+ on the right side and 2+ on the left side. Posterior tibial pulses are 2+ on the right side and 2+ on the left side. Pulmonary: Effort: Pulmonary effort is normal. No respiratory distress. Breath sounds: No stridor. Chest: Chest wall: No tenderness. Abdominal: General: Abdomen is flat. There is no distension. Skin: General: Skin is warm and dry. Capillary Refill: Capillary refill takes less than 2 seconds. Findings: Erythema (diffuse LLE erythema) present. Neurological: General: No focal deficit present. Mental Status: She is alert and oriented to person, place, and time. Psychiatric: Mood and Affect: Mood normal. Behavior: Behavior normal. LABS: Lab Results Component Value Date WBC 6.1 12/15/2024 HGB 11.6 (L) 12/15/2024 HCT 36.1 12/15/2024 PLT 204 12/15/2024 PROTIME 10.5 12/14/2024 INR 1.0 12/14/2024 K 3.5 12/14/2024 BUN 16 12/14/2024 CREATININE 0.78 12/14/2024 VASCULAR TESTING: . [1] History reviewed. No pertinent past medical history. [2] History reviewed. No pertinent surgical history. [3] [4] PRN medications: ondansetron ODT OR ondansetron, polyethylene glycol (PEG) 3350, sodium chloride, sodium chloride 0.9% [5] apixaban, 10 mg, Oral, BID Followed by [START ON 12/21/2024] apixaban, 5 mg, Oral, BID sodium chloride 0.9%, 10 mL, IntraVENous, 2 times per day [6] No family history on file. Cosigned by Charissa Short MD at 12/15/2024 3:47 PM EDT Associated attestation - Charissa Short MD - 12/15/2024 3:47 PM EDT I saw and evaluated the patient. I agree with the findings and plan of care as documented in the resident s note unless otherwise noted below. Patient with history of iliac vein stents secondary to what sounds like pelvic congestion syndrome back in 09/[address] [place] [address] Goldberg. The patient also subsequently developed occlusion of the stents requiring thrombectomy almost 1 year ago. She was on Eliquis until approximately [address] Goldberg transitioned her to plavix. She has now developed thrombosis of her left common iliac vein stent/external iliac vein stent with extension now of her thrombus to the common femoral vein. On duplex performed this morning, the patient has compressible femoral vein, popliteal vein, and calf veins with slow flow secondary to proximal occlusion. Thrombectomy is recommended for symptoms relief as she has significant swelling and pain in the LLE. After long discussion with the patient, she would like to have her thrombectomy performed here rather than wait for Dr. Goldberg next week. I have discussed thrombectomy with the patient and how it is performed. I have discussed the risks of the procedure including the risks of bleeding, infection,damage to surrounding structures, access site complications, development of pulmonary embolism, and possible inability to cross the stents. She has expressed understanding and has elected to proceed. Plan for thrombectomy tomorrow if OR time allows. If not, plan for Sunday 12/17. NPO at midnight. Continue heparin gtt. [facility] 12-15-2024 Consult note Associated Order (s): IP CONSULT TO VASCULAR SURGERY Images from the original note were not included. Vascular Surgery Consultation Note Reason for Consult: LLE DVT HISTORY OF PRESENT ILLNESS: The patient is a 59 y.o. female who is admitted to the hospital for treatment of LLE DVT. Vascular surgery is consulted for evaluation and treatment. When patient had L CIV stent placed 11/2023 ([facility]), was switched from Eliquis to Plavix. Has been on Plavix but no anticoagulation since then. Also reports hx of R CIV stent some time prior to this. Has had multiple prior lower extremity DVTs. Mother with hx of DVT. Both patient and mother negative for factor V leiden but not tested for other genetic coagulopathies. Began to have LLE pain and swelling last week and BLE venous duplex at [place] reportedly demonstrated occlusion of left CIV stent, and associated acute DVT of LCFV, EIV, FV, PopV, T/P Trunk, PTV, Peroneal/Gastroc/Soleal vv. Pt was switched back from Plavix to Eliquis on Saturday (12/11) with plan for admission to [facility] 12/23 for heparin bridge and thrombectomy by Dr Goldberg following day. However, patient developed worsening pain and swelling of LLE over last 24 hrs. Patient reports she called Dr Goldberg's office for this and was instructed to come to our ED for further evaluation. On exam, VSS and wnl. CTA chest without concern for PE. Repeat BLE duplex US with similar findings as prior study at [facility] (see full reports below). IMPRESSION: Occluded left internal iliac vein stent, acute occlusive DVTs of left common/internal/external iliacs and common femoral vein. RECOMMENDATIONS: - MMPC - Elevate LLE, ideally above the level of the heart. Continue DEJA compression. - Hold Eliquis, give heparin gtt for now - Discussed with Dr Short Medical History[1] Surgical History[2] Current Medications: Continuous Meds[3] PRN Meds[4] Scheduled Meds[5] Allergies: Hydrocodone Social History Socioeconomic History Marital status: Spouse name: Not on file Number of children: Not on file Years of education: Not on file Highest education level: Not on file Occupational History Not on file Tobacco Use Smoking status: Never Smokeless tobacco: Never Substance and Sexual Activity Alcohol use: Not on file Drug use: Never Sexual activity: Never Other Topics Concern Not on file Social History Narrative Not on file Social Drivers of Health Financial Resource Strain: Not on file Food Insecurity: Not on file Transportation Needs: Not on file Physical Activity: Not on file Stress: Not on file Social Connections: Not on file Intimate Partner Violence: Not on file Housing Stability: Not on file Family History[6] REVIEW OF SYSTEMS: The chart was reviewed. Review of Systems Constitutional: Negative for activity change, chills, diaphoresis, fatigue and fever. Eyes: Negative for photophobia and visual disturbance. Respiratory: Negative for chest tightness and shortness of breath. Cardiovascular: Negative for chest pain and palpitations. Gastrointestinal: Negative for abdominal pain, nausea and vomiting. Skin: Negative for color change, pallor and wound. Neurological: Negative for dizziness, weakness, light-headedness and numbness. LABS: Lab Results Component Value Date CREATININE 0.78 12/14/2024 Lab Results Component Value Date WBC 6.1 12/15/2024 HGB 11.6 (L) 12/15/2024 HCT 36.1 12/15/2024 MCV 91.4 12/15/2024 PLT 204 12/15/2024 Lab Results Component Value Date INR 1.0 12/14/2024 PROTIME 10.5 12/14/2024 No results found for: VLDL PHYSICAL EXAM: Vitals: 12/15/24 0633 BP: 118/69 Pulse: 72 Resp: 18 Temp: SpO2: 99% Physical Exam Vitals reviewed. Constitutional: General: She is not in acute distress. Appearance: She is not ill-appearing. HENT: Head: Normocephalic and atraumatic. Right Ear: External ear normal. Left Ear: External ear normal. Nose: No congestion. Mouth/Throat: Mouth: Mucous membranes are moist. Pharynx: Oropharynx is clear. Eyes: General: No scleral icterus. Right eye: No discharge. Left eye: No discharge. Cardiovascular: Rate and Rhythm: Normal rate and regular rhythm. Pulses: Normal pulses. Femoral pulses are 2+ on the right side and 2+ on the left side. Dorsalis pedis pulses are 2+ on the right side and 2+ on the left side. Posterior tibial pulses are 2+ on the right side and 2+ on the left side. Pulmonary: Effort: Pulmonary effort is normal. No respiratory distress. Breath sounds: No stridor. Chest: Chest wall: No tenderness. Abdominal: General: Abdomen is flat. There is no distension. Skin: General: Skin is warm and dry. Capillary Refill: Capillary refill takes less than 2 seconds. Findings: Erythema (diffuse LLE erythema) present. Neurological: General: No focal deficit present. Mental Status: She is alert and oriented to person, place, and time. Psychiatric: Mood and Affect: Mood normal. Behavior: Behavior normal. LABS: Lab Results Component Value Date WBC 6.1 12/15/2024 HGB 11.6 (L) 12/15/2024 HCT 36.1 12/15/2024 PLT 204 12/15/2024 PROTIME 10.5 12/14/2024 INR 1.0 12/14/2024 K 3.5 12/14/2024 BUN 16 12/14/2024 CREATININE 0.78 12/14/2024 VASCULAR TESTING: . [1] History reviewed. No pertinent past medical history. [2] History reviewed. No pertinent surgical history. [3] [4] PRN medications: ondansetron ODT OR ondansetron, polyethylene glycol (PEG) 3350, sodium chloride, sodium chloride 0.9% [5] apixaban, 10 mg, Oral, BID Followed by [START ON 12/21/2024] apixaban, 5 mg, Oral, BID sodium chloride 0.9%, 10 mL, IntraVENous, 2 times per day [6] No family history on file. Cosigned by Charissa Short MD at 12/15/2024 3:47 PM EDT Associated attestation - Chraissa Short MD - 12/15/2024 3:47 PM EDT I saw and evaluated the patient. I agree with the findings and plan of care as documented in the resident s note unless otherwise noted below. Patient with history of iliac vein stents secondary to what sounds like pelvic congestion syndrome back in 09/[address] [place] [address] Goldberg. The patient also subsequently developed occlusion of the stents requiring thrombectomy almost 1 year ago. She was on Eliquis until approximately [address] Goldberg transitioned her to plavix. She has now developed thrombosis of her left common iliac vein stent/external iliac vein stent with extension now of her thrombus to the common femoral vein. On duplex performed this morning, the patient has compressible femoral vein, popliteal vein, and calf veins with slow flow secondary to proximal occlusion. Thrombectomy is recommended for symptoms relief as she has significant swelling and pain in the LLE. After long discussion with the patient, she would like to have her thrombectomy performed here rather than wait for Dr. Goldberg next week. I have discussed thrombectomy with the patient and how it is performed. I have discussed the risks of the procedure including the risks of bleeding, infection,damage to surrounding structures, access site complications, development of pulmonary embolism, and possible inability to cross the stents. She has expressed understanding and has elected to proceed. Plan for thrombectomy tomorrow if OR time allows. If not, plan for Sunday 12/17. NPO at midnight. Continue heparin gtt. documented in this encounter [facility] 12-15-2024 History and physical note History and Physical Admit Date: 12/14/2024 PCP: No primary care provider on file. CHIEF COMPLAINT: left leg pain Reason for Admission: Left lower extremity DVT History Obtained From: patient HISTORY OF PRESENT ILLNESS: Karolina is a 59 y.o. female with past medical history below who presents with complaints of left lower extremity pain and swelling that has been present for the last several days. Patient was initially evaluated at [facility] diagnosed with a DVT of the left lower extremity that extends along her entire leg. At that time they switched her from Plavix to Eliquis which she has been taking regularly but states that the pain is worsening. She then contacted her vascular surgeon, was told to go to the ER. She does note a history of DVT in the past, was on Eliquis for it until switched to Plavix. She has only been tested for factor V Leiden which was negative. She does have family history of DVT. Patient denies any chest pain shortness of breath. In the emergency department workup showed no leukocytosis. No anemia. No thrombocytopenia. Normal electrolytes. No renal insufficiency. Normal liver enzymes. Troponin 57, repeat 58. INR 1. CTA chest showed no PE. Will admit for further evaluation and management. Past Medical History: Medical History[1] Past Surgical History: Surgical History[2] Social History: Social History Socioeconomic History Marital status: Spouse name: Not on file Number of children: Not on file Years of education: Not on file Highest education level: Not on file Occupational History Not on file Tobacco Use Smoking status: Never Smokeless tobacco: Never Substance and Sexual Activity Alcohol use: Not on file Drug use: Never Sexual activity: Never Other Topics Concern Not on file Social History Narrative Not on file Social Drivers of Health Financial Resource Strain: Not on file Food Insecurity: Not on file Transportation Needs: Not on file Physical Activity: Not on file Stress: Not on file Social Connections: Not on file Intimate Partner Violence: Not on file Housing Stability: Not on file Family History: Family History[3] Medications Reconciliation: Medication were reviewed and verified as accurate with patient. Allergies: Allergies[4] REVIEW OF SYSTEMS: 10 point ROS obtained, as per HPI, otherwise NEG Vitals: BP 118/72 Pulse 54 Temp 36.7 C (98.1 F) (Temporal) Resp 18 Ht 1.626 m (5' 4) Wt 65.8 kg (145 lb) SpO2 95% BMI 24.89 kg/m BMI Classification: Normal Weight (BMI 18.5-24.9) Pulse Ox: SpO2 Av % Min: 95 % Max: 99 % Supplemental O2: PHYSICAL EXAM: Physical Exam General: Patient appears to be well-developed and well-nourished. Patient does not appear to be in acute distress. Vital signs noted. HEENT: Head appears normocephalic/atraumatic. External ears and nose normal. Oropharynx clear and moist. Neck is supple with no cervical lymphadenopathy. Pupils are round and reactive to light. Cardiac: Regular rate and rhythm. Pulmonary: Lungs are clear to auscultation. No wheezes or rales heard. Abdomen: Abdomen is soft and nontender. Extremities: Significant soft tissue swelling noted to the entirety of the left lower leg. No pallor. Normal DP and PT pulses to the lower extremities bilaterally. Skin: Warm and dry. Neurologic: Alert and oriented 3. Psychiatric: Mood and behavior normal DATA: CBC: Recent Labs 12/14/241950 WBC 5.8 RBC 4.18 HGB 12.5 HCT 38.1 MCV 91.1 RDW 12.8 PLT 228 BMP: Recent Labs 12/14/241950 NA 139 K 3.5 CL 108* CO2 25 BUN 16 CREATININE 0.78 GLUCOSE 89 CALCIUM 8.8 ANIONGAP 6 LIVER PROFILE: Recent Labs 12/14/241950 AST 31 ALT 28 BILITOT 0.6 ALKPHOS 117 PROT 6.8 PT/INR: Recent Labs 12/14/241950 PROTIME 10.5 INR 1.0 CARDIAC ENZYMES: No results for input(s): TROPONINI in the last 72 hours. Procalcitonin: No results found for: PROCAL Urine Culture: No results found for this or any previous visit. COVID-19 PCR: No results for input(s): COVID19 in the last 72 hours. I reviewed: [x] laboratory results [x] radiographic results At the time of today's encounter. Pt was advised of the results. Data: (CAT1) Reviewed 3 or more labs/studies ordered by another provider not previously counted (each=1, panels count as 1). (CAT3) Discussed with ED provider, Dr. Aponte, regarding patient's eval & mgmt thus far, and agree with the plan for hospitalization. (LOW: 2x CAT1 or independent historian MOD: 3x CAT1 or 1x CAT3 EXTENSIVE: 3x CAT1 and 1x CAT3) Assessment Discussed management with the ED provider and agree with hospitalization. Acute, acute on chronic, unstable/uncontrolled chronic problems/diagnoses: Left lower extremity DVT Stable chronic problems affecting care, new non-acute diagnoses: Medical History[5] Plan As a result of the above findings & factors, the following mgmt was pursued: - Obtain duplex venous ultrasounds lower extremities - Vascular consult - Pain control - CTA negative for PE - Troponin 57 -> 58 - Cardiology consult - am labs, replace lytes prn - PT/OT/CM/SW - delirium precautions: increase activity and limit nighttime disturbances - DVT prophylaxis: encourage ambulation and already anticoagulated Complexity: Acute illness with systemic symptoms (MOD). Risk: Admission to hospital-level care was considered or occurred (HIGH). Advance Directive: Full Code Anticipated Discharge - Date - 12/16/2024 - Location - Home - Pending the following - pain control, US, vascular consult Total time spent (which include face to face and non face to face encounters) : 75 minutes. Extended Emergency Contact Information Primary Emergency Contact: Charles Ahn Mobile Relation: Spouse Preferred language: Tongan Body Press Operator needed? No Clinton Rodriugez PA-C Division of [facility] Medicine Inpatient Medical Services/[facility] [1] History reviewed. No pertinent past medical history. [2] History reviewed. No pertinent surgical history. [3] No family history on file. [4] Allergies Allergen Reactions Hydrocodone Other [5] History reviewed. No pertinent past medical history. Cosigned by Edy Gray DO at 12/15/2024 6:33 AM EDT [facility] 12-15-2024 Note History and Physical Admit Date: 12/14/2024 PCP: No primary care provider on file. CHIEF COMPLAINT: left leg pain Reason for Admission: Left lower extremity DVT History Obtained From: patient HISTORY OF PRESENT ILLNESS: Karolina is a 59 y.o. female with past medical history below who presents with complaints of left lower extremity pain and swelling that has been present for the last several days. Patient was initially evaluated at [facility] diagnosed with a DVT of the left lower extremity that extends along her entire leg. At that time they switched her from Plavix to Eliquis which she has been taking regularly but states that the pain is worsening. She then contacted her vascular surgeon, was told to go to the ER. She does note a history of DVT in the past, was on Eliquis for it until switched to Plavix. She has only been tested for factor V Leiden which was negative. She does have family history of DVT. Patient denies any chest pain shortness of breath. In the emergency department workup showed no leukocytosis. No anemia. No thrombocytopenia. Normal electrolytes. No renal insufficiency. Normal liver enzymes. Troponin 57, repeat 58. INR 1. CTA chest showed no PE. Will admit for further evaluation and management. Past Medical History: Medical History[1] Past Surgical History: Surgical History[2] Social History: Social History Socioeconomic History Marital status: Spouse name: Not on file Number of children: Not on file Years of education: Not on file Highest education level: Not on file Occupational History Not on file Tobacco Use Smoking status: Never Smokeless tobacco: Never Substance and Sexual Activity Alcohol use: Not on file Drug use: Never Sexual activity: Never Other Topics Concern Not on file Social History Narrative Not on file Social Drivers of Health Financial Resource Strain: Not on file Food Insecurity: Not on file Transportation Needs: Not on file Physical Activity: Not on file Stress: Not on file Social Connections: Not on file Intimate Partner Violence: Not on file Housing Stability: Not on file Family History: Family History[3] Medications Reconciliation: Medication were reviewed and verified as accurate with patient. Allergies: Allergies[4] REVIEW OF SYSTEMS: 10 point ROS obtained, as per HPI, otherwise NEG Vitals: BP 118/72 Pulse 54 Temp 36.7 ?C (98.1 ?F) (Temporal) Resp 18 Ht 1.626 m (5' 4) Wt 65.8 kg (145 lb) SpO2 95% BMI 24.89 kg/m? BMI Classification: Normal Weight (BMI 18.5-24.9) Pulse Ox: SpO2 Av % Min: 95 % Max: 99 % Supplemental O2: PHYSICAL EXAM: Physical Exam General: Patient appears to be well-developed and well-nourished. Patient does not appear to be in acute distress. Vital signs noted. HEENT: Head appears normocephalic/atraumatic. External ears and nose normal. Oropharynx clear and moist. Neck is supple with no cervical lymphadenopathy. Pupils are round and reactive to light. Cardiac: Regular rate and rhythm. Pulmonary: Lungs are clear to auscultation. No wheezes or rales heard. Abdomen: Abdomen is soft and nontender. Extremities: Significant soft tissue swelling noted to the entirety of the left lower leg. No pallor. Normal DP and PT pulses to the lower extremities bilaterally. Skin: Warm and dry. Neurologic: Alert and oriented ?3. Psychiatric: Mood and behavior normal DATA: CBC: Recent Labs 12/14/241950 WBC 5.8 RBC 4.18 HGB 12.5 HCT 38.1 MCV 91.1 RDW 12.8 PLT 228 BMP: Recent Labs 12/14/241950 NA 139 K 3.5 CL 108* CO2 25 BUN 16 CREATININE 0.78 GLUCOSE 89 CALCIUM 8.8 ANIONGAP 6 LIVER PROFILE: Recent Labs 12/14/241950 AST 31 ALT 28 BILITOT 0.6 ALKPHOS 117 PROT 6.8 PT/INR: Recent Labs 12/14/241950 PROTIME 10.5 INR 1.0 CARDIAC ENZYMES: No results for input(s): TROPONINI in the last 72 hours. Procalcitonin: No results found for: PROCAL Urine Culture: No results found for this or any previous visit. COVID-19 PCR: No results for input(s): COVID19 in the last 72 hours. I reviewed: [x] laboratory results [x] radiographic results At the time of today's encounter. Pt was advised of the results. Data: (CAT1) Reviewed 3 or more labs/studies ordered by another provider not previously counted (each=1, panels count as 1). (CAT3) Discussed with ED provider, Dr. Aponte, regarding patient's eval & mgmt thus far, and agree with the plan for hospitalization. (LOW: 2x CAT1 or independent historian MOD: 3x CAT1 or 1x CAT3 EXTENSIVE: 3x CAT1 and 1x CAT3) Assessment Discussed management with the ED provider and agree with hospitalization. Acute, acute on chronic, unstable/uncontrolled chronic problems/diagnoses: Left lower extremity DVT Stable chronic problems affecting care, new non-acute diagnoses: Medical History[5] Plan As a result of the above findings & f (more content not included)... [facility] 12-15-2024 History and physical note History and Physical Admit Date: 12/14/2024 PCP: No primary care provider on file. CHIEF COMPLAINT: left leg pain Reason for Admission: Left lower extremity DVT History Obtained From: patient HISTORY OF PRESENT ILLNESS: Karolina is a 59 y.o. female with past medical history below who presents with complaints of left lower extremity pain and swelling that has been present for the last several days. Patient was initially evaluated at [facility] diagnosed with a DVT of the left lower extremity that extends along her entire leg. At that time they switched her from Plavix to Eliquis which she has been taking regularly but states that the pain is worsening. She then contacted her vascular surgeon, was told to go to the ER. She does note a history of DVT in the past, was on Eliquis for it until switched to Plavix. She has only been tested for factor V Leiden which was negative. She does have family history of DVT. Patient denies any chest pain shortness of breath. In the emergency department workup showed no leukocytosis. No anemia. No thrombocytopenia. Normal electrolytes. No renal insufficiency. Normal liver enzymes. Troponin 57, repeat 58. INR 1. CTA chest showed no PE. Will admit for further evaluation and management. Past Medical History: Medical History[1] Past Surgical History: Surgical History[2] Social History: Social History Socioeconomic History Marital status: Spouse name: Not on file Number of children: Not on file Years of education: Not on file Highest education level: Not on file Occupational History Not on file Tobacco Use Smoking status: Never Smokeless tobacco: Never Substance and Sexual Activity Alcohol use: Not on file Drug use: Never Sexual activity: Never Other Topics Concern Not on file Social History Narrative Not on file Social Drivers of Health Financial Resource Strain: Not on file Food Insecurity: Not on file Transportation Needs: Not on file Physical Activity: Not on file Stress: Not on file Social Connections: Not on file Intimate Partner Violence: Not on file Housing Stability: Not on file Family History: Family History[3] Medications Reconciliation: Medication were reviewed and verified as accurate with patient. Allergies: Allergies[4] REVIEW OF SYSTEMS: 10 point ROS obtained, as per HPI, otherwise NEG Vitals: BP 118/72 Pulse 54 Temp 36.7 C (98.1 F) (Temporal) Resp 18 Ht 1.626 m (5' 4) Wt 65.8 kg (145 lb) SpO2 95% BMI 24.89 kg/m BMI Classification: Normal Weight (BMI 18.5-24.9) Pulse Ox: SpO2 Av % Min: 95 % Max: 99 % Supplemental O2: PHYSICAL EXAM: Physical Exam General: Patient appears to be well-developed and well-nourished. Patient does not appear to be in acute distress. Vital signs noted. HEENT: Head appears normocephalic/atraumatic. External ears and nose normal. Oropharynx clear and moist. Neck is supple with no cervical lymphadenopathy. Pupils are round and reactive to light. Cardiac: Regular rate and rhythm. Pulmonary: Lungs are clear to auscultation. No wheezes or rales heard. Abdomen: Abdomen is soft and nontender. Extremities: Significant soft tissue swelling noted to the entirety of the left lower leg. No pallor. Normal DP and PT pulses to the lower extremities bilaterally. Skin: Warm and dry. Neurologic: Alert and oriented 3. Psychiatric: Mood and behavior normal DATA: CBC: Recent Labs 12/14/241950 WBC 5.8 RBC 4.18 HGB 12.5 HCT 38.1 MCV 91.1 RDW 12.8 PLT 228 BMP: Recent Labs 12/14/241950 NA 139 K 3.5 CL 108* CO2 25 BUN 16 CREATININE 0.78 GLUCOSE 89 CALCIUM 8.8 ANIONGAP 6 LIVER PROFILE: Recent Labs 12/14/241950 AST 31 ALT 28 BILITOT 0.6 ALKPHOS 117 PROT 6.8 PT/INR: Recent Labs 12/14/241950 PROTIME 10.5 INR 1.0 CARDIAC ENZYMES: No results for input(s): TROPONINI in the last 72 hours. Procalcitonin: No results found for: PROCAL Urine Culture: No results found for this or any previous visit. COVID-19 PCR: No results for input(s): COVID19 in the last 72 hours. I reviewed: [x] laboratory results [x] radiographic results At the time of today's encounter. Pt was advised of the results. Data: (CAT1) Reviewed 3 or more labs/studies ordered by another provider not previously counted (each=1, panels count as 1). (CAT3) Discussed with ED provider, Dr. Aponte, regarding patient's eval & mgmt thus far, and agree with the plan for hospitalization. (LOW: 2x CAT1 or independent historian MOD: 3x CAT1 or 1x CAT3 EXTENSIVE: 3x CAT1 and 1x CAT3) Assessment Discussed management with the ED provider and agree with hospitalization. Acute, acute on chronic, unstable/uncontrolled chronic problems/diagnoses: Left lower extremity DVT Stable chronic problems affecting care, new non-acute diagnoses: Medical History[5] Plan As a result of the above findings & factors, the following mgmt was pursued: - Obtain duplex venous ultrasounds lower extremities - Vascular consult - Pain control - CTA negative for PE - Troponin 57 -> 58 - Cardiology consult - am labs, replace lytes prn - PT/OT/CM/SW - delirium precautions: increase activity and limit nighttime disturbances - DVT prophylaxis: encourage ambulation and already anticoagulated Complexity: Acute illness with systemic symptoms (MOD). Risk: Admission to hospital-level care was considered or occurred (HIGH). Advance Directive: Full Code Anticipated Discharge - Date - 12/16/2024 - Location - Home - Pending the following - pain control, US, vascular consult Total time spent (which include face to face and non face to face encounters) : 75 minutes. Extended Emergency Contact Information Primary Emergency Contact: Charles Ahn Mobile Relation: Spouse Preferred language: Tongan Body Press Operator needed? No Clinton Rodriguez PA-C Division of Hospital Medicine Inpatient Medical Services/[facility] [1] History reviewed. No pertinent past medical history. [2] History reviewed. No pertinent surgical history. [3] No family history on file. [4] Allergies Allergen Reactions Hydrocodone Other [5] History reviewed. No pertinent past medical history. Cosigned by Edy Gray DO at 12/15/2024 6:33 AM EDT documented in this encounter [facility] 12-14-2024 Physician Emergency department Note EMERGENCY DEPARTMENT ENCOUNTER Pt Name: Karolina Ahn Birthdate 1965 Date of evaluation: 12/14/2024 ED Provider: Riley Mcmillan NP CHIEF COMPLAINT Chief Complaint Patient presents with Leg Pain Patient has a confirmed DVT in the left leg, denies chest pain or SOB HISTORY OF PRESENT ILLNESS (Location/Symptom, Timing/Onset, Context/Setting, Quality, Duration, Modifying Factors, Severity) Note limiting factors. I wore appropriate PPE for the entirety of this encounter. Karolina Ahn is a 59 y.o. female who presents to the emergency department with chief complaint of Worsening pain and swelling in her left thigh and left lower leg after being told she has a new DVT on Saturday. Patient states she is compliant with her Eliquis but it is getting worse. Patient has a history of previous DVTs. Denies chest pain or shortness of breath. States she called her physician and they sent her to the ER for evaluation and treatment. Denies abdominal pain or nausea vomiting or diarrhea. Accompanied by . Patient had previous vascular study done on Saturday with positive DVT at [facility] (picture of report was scanned into pt's record). History provided by: Patient Nursing Notes were reviewed. REVIEW OF SYSTEMS Review of Systems Constitutional: Negative for chills and fever. HENT: Negative for ear pain and sore throat. Eyes: Negative for pain and visual disturbance. Respiratory: Negative for cough and shortness of breath. Cardiovascular: Negative for chest pain and palpitations. Gastrointestinal: Negative for abdominal pain and vomiting. Genitourinary: Negative for dysuria and hematuria. Musculoskeletal: Positive for joint swelling. Negative for arthralgias, back pain, myalgias, neck pain and neck stiffness. Left leg swelling Skin: Positive for color change. Negative for rash. Neurological: Negative for seizures and syncope. All other systems reviewed and are negative. Please see HPI for pertinent positives and negatives. All other systems reviewed and negative PAST MEDICAL HISTORY Medical History[1] SURGICAL HISTORY Surgical History[2] CURRENT MEDICATIONS Previous Medications No medications on file ALLERGIES Hydrocodone FAMILY HISTORY Family History[3] SOCIAL HISTORY Social History[4] SCREENINGS PHYSICAL EXAM ED Triage Vitals [12/14/24 1733] Temp Heart Rate Resp BP 36.7 C (98.1 F) 83 16 111/71 SpO2 Temp Source Heart Rate Source Patient Position 96 % Temporal Monitor -- BP Location FiO2 (%) -- -- Physical Exam Vitals and nursing note reviewed. Constitutional: General: She is not in acute distress. Appearance: Normal appearance. She is well-developed and normal weight. She is not ill-appearing or toxic-appearing. HENT: Head: Normocephalic and atraumatic. Nose: Nose normal. Mouth/Throat: Mouth: Mucous membranes are moist. Pharynx: Oropharynx is clear. Eyes: Conjunctiva/sclera: Conjunctivae normal. Cardiovascular: Rate and Rhythm: Normal rate and regular rhythm. Pulses: Normal pulses. Dorsalis pedis pulses are 2+ on the left side. Posterior tibial pulses are 2+ on the left side. Heart sounds: Normal heart sounds, S1 normal and S2 normal. No murmur heard. Pulmonary: Effort: Pulmonary effort is normal. No respiratory distress. Breath sounds: Normal breath sounds. Abdominal: Palpations: Abdomen is soft. Tenderness: There is no abdominal tenderness. Musculoskeletal: General: No swelling. Cervical back: Neck supple. Left upper leg: Tenderness present. No swelling, edema, deformity, lacerations or bony tenderness. Right lower leg: No edema. Left lower leg: Swelling and tenderness present. No deformity, lacerations or bony tenderness. 2+ Edema present. Lymphadenopathy: Cervical: No cervical adenopathy. Skin: General: Skin is warm and dry. Capillary Refill: Capillary refill takes less than 2 seconds. Neurological: Mental Status: She is alert and oriented to person, place, and time. Mental status is at baseline. GCS: GCS eye subscore is 4. GCS verbal subscore is 5. GCS motor subscore is 6. Psychiatric: Mood and Affect: Mood normal. DIAGNOSTIC RESULTS Procedures/EKG: EKG was reviewed by myself. Physician EKG interpretation can be found in [facility] RADIOLOGY (Per Emergency Physician): Interpretation per the Radiologist below, if available at the time of this note: CT chest angiogram w and/or wo IV contrast Final Result 1. No pulmonary embolism. 2. Bibasilar atelectasis. No consolidation or pleural effusion. Report Dictated on Electronically Signed By: Won Myrick MD Electronically Signed Date/Time: 12/14/2024 10:14 PM EDT Vascular US lower extremity venous duplex left (Results Pending) ED BEDSIDE ULTRASOUND: Performed by ED Physician - none LABS: Labs Reviewed CBC WITH AUTO DIFFERENTIAL - Abnormal Result Value Auto WBC 5.8 RBC 4.18 Hemoglobin 12.5 Hematocrit 38.1 MCV 91.1 MCH 29.9 MCHC 32.8 RDW 12.8 Platelets 228 MPV 10.2 nRBC 0.0 Neutrophils Relative 69.9 Lymphocytes Relative 16.2 Monocytes Relative 6.6 Eosinophils Relative 6.4 (*) Basophils Relative 0.7 Immature Grans % 0.2 Neutrophils Absolute 4.1 Lymphocytes Absolute 0.9 (*) Monocytes Absolute 0.4 Eosinophils Absolute 0.4 Basophils Absolute 0.0 Immature Grans Absolute 0.0 COMPREHENSIVE METABOLIC PANEL - Abnormal SODIUM 139 POTASSIUM 3.5 CHLORIDE 108 (*) CARBON DIOXIDE 25 ANION GAP 6 UREA NITROGEN 16 CREATININE 0.78 GLUCOSE 89 CALCIUM 8.8 AST (SGOT) 31 ALT 28 ALKALINE PHOSPHATASE 117 ALBUMIN 3.3 (*) BILIRUBIN, TOTAL 0.6 TOTAL PROTEIN 6.8 eGFR 87.6 HIGH SENSITIVITY TROPONIN, SERIAL BASELINE - Abnormal Troponin HS Serial Baseline 57 (*) PROTHROMBIN TIME - Normal PROTHROMBIN TIME 10.5 INR 1.0 HIGH SENSITIVITY TROPONIN, SERIAL, SECOND TEST All other labs were within normal range or not returned as of this dictation. EMERGENCY DEPARTMENT COURSE and DIFFERENTIAL DIAGNOSIS/MDM: Vitals: Vitals: 12/14/24 1733 12/14/24 1950 BP: 111/71 112/84 BP Location: Left arm Patient Position: Lying Pulse: 83 64 Resp: 16 16 Temp: 36.7 C (98.1 F) TempSrc: Temporal SpO2: 96% 99% Weight: 65.8 kg (145 lb) Height: 1.626 m (5' 4) Nursing notes and external records reviewed. ED care was supervised by Dr. Aponte who independently examined and evaluated the patient. Please see their attestation note for further details. In brief, Karolina Ahn is a 59 y.o. female who presented to the emergency department Medical Decision Making Worsening pain and swelling in her left thigh and left lower leg after being told she has a new DVT on Saturday. Patient states she is compliant with her Eliquis but it is getting worse. Patient has a history of previous DVTs. Denies chest pain or shortness of breath. States she called her physician and they sent her to the ER for evaluation and treatment. Denies abdominal pain or nausea vomiting or diarrhea. Accompanied by . Patient had previous vascular study done on Saturday with positive DVT at [facility] (picture of report was scanned into pt's record). Unfortunately vascular is not available after hours at this hospital. Previous vascular study was scanned into the system. EKG was sinus rhythm without evidence of ischemia. Initial troponin was 57. Patient was started on aspirin. CTA was ordered to rule out PE. Second Trope is pending. Otherwise her labs are unremarkable today. No leukocytosis. No anemia. Electrolytes are normal. Eliquis was ordered for patient's left leg DVT. Problems Addressed: Left leg swelling: complicated acute illness or injury Amount and/or Complexity of Data Reviewed Labs: ordered. Decision-making details documented in ED Course. Radiology: ordered. ECG/medicine tests: ordered. Decision-making details documented in ED Course. Risk OTC drugs. Prescription drug management. Medications apixaban (Eliquis) tablet 10 mg (has no administration in time range) Followed by apixaban (Eliquis) tablet 5 mg (has no administration in time range) aspirin tablet 325 mg (325 mg Oral Given 12/14/242111) iopamidol (Isovue-370) 76 % injection 75 mL (75 mL IntraVENous Given 12/14/242139) ED Course as of 12/14/242228Dec 14, 20241803 EKG: Sinus rhythm, 75 bpm. T wave inversion in aVR, V1. No ST deviation. No ectopy. QTc 414 ms. [WG] 2024 Troponin HS Serial Baseline(!): 57 Troponin was slightly elevated. Aspirin 325 was ordered. CTA of the chest to rule out PE was ordered. Patient is stable [WG] 2214 Shift change report given to ER attending, Dr. Aponte. Pt is stable. CTA chest neg. Trop+, pending second Troponin for dispo. [WG] ED Course User Index [WG] Riley cMmillan NP Diagnoses as of 12/14/242228 Left leg swelling Acute deep vein thrombosis (DVT) of proximal vein of left lower extremity (HCC) I Riley Mcmillan NP am the senior clinician of record. REVAL: Stable. Tolerating PO. Nontoxic. AAOx3. Patient is pending second troponin for disposition. Denies CP or SOB. FINAL IMPRESSION 1. Left leg swelling 2. Acute deep vein thrombosis (DVT) of proximal vein of left lower extremity (HCC) DISPOSITION PATIENT REFERRED TO: No follow-up provider specified. DISCHARGE MEDICATIONS: New Prescriptions No medications on file (Comment: Please note this report has been produced using speech recognition software and may contain errors related to that system including errors in grammar, punctuation, and spelling, as well as words and phrases that may be inappropriate. If there are any questions or concerns please feel free to contact the dictating provider for clarification.) Riley Mcmillan NP (electronically signed) Emergency Medicine Provider [1] History reviewed. No pertinent past medical history. [2] History reviewed. No pertinent surgical history. [3] No family history on file. [4] Social History Socioeconomic History Marital status: Tobacco Use Smoking status: Never Smokeless tobacco: Never Substance and Sexual Activity Drug use: Never Sexual activity: Never Riley Mcmillan NP 12/14/242228 Cosigned by Anthony Aponte DO at 12/14/2024 11:40 PM EDT [facility] 12-14-2024 Physician Emergency department Note Emergency Department Encounter [facility] EMERGENCY DEPT Patient: Karolina Ahn : 1965 Date of Evaluation: 12/14/2024 ED Supervising Physician: Anthony Aponte DO I personally evaluated Karolina Ahn and made/approved the management plan and take responsibility for the patient management. This will serve as my Supervisory note and shared attestation. I did perform a substantive portion of the visit including all aspects of the Medical Decision Making. I wore appropriate PPE for the entirety of this encounter. In brief, Karolina Ahn is a 59 y.o. that presents to the emergency department with chief complaint of worsening leg pain and swelling. Patient has been having symptoms for just over a week now. Initial evaluated [facility] where she was diagnosed with a DVT that extends along her entire leg. She was started on Eliquis which she has been taking regularly but notes worsening pain and swelling. Was trying to get a second opinion and went to [facility] But states she never saw a provider and left out of frustration after waiting several hours. Tried to call vascular surgery and was told to go to ER at either [facility] or [place]. She currently denies any chest pain or shortness of breath. Does note family history of DVT as well as personal history of prior DVT. States she was only tested for factor V before but has been on blood thinners off that they cannot do hypercoagulability testing. Focused exam: Alert and oriented x 3. Heart is regular rate and rhythm. Lungs are clear to auscultation bilaterally. There is significant soft tissue swelling of the entirety of the left lower leg. No significant phlegmasia or pallor. Easily palpable DP and PT pulses are noted on the left leg. Brief ED course/MDM: Limited options of acute DVT treatment at this time because of limited venous duplex study availability. Her swelling is worse in based on the report she provided from the venous duplex study obtained at [facility], she does have significant clot burden. With her worsening symptoms, I do believe she warrants observation for repeat of the venous duplex and consultation with interventional cardiology to see if clot retrieval/INARi would be an option. All diagnostic, treatment, and disposition decisions were made by myself in conjunction with the ANANYA. For all further details of the patient's emergency department visit, please see their documentation. (Comment: Please note this report has been produced using speech recognition software and may contain errors related to that system including errors in grammar, punctuation, and spelling, as well as words and phrases that may be inappropriate. If there are any questions or concerns please feel free to contact the dictating provider for clarification.) Anthony Aponte DO [employer] Anthony Aponte DO 12/14/24 3064 [facility] 12-14-2024 History of Present illness Narrative Radiology Service Progress Note DATE OF SERVICE: December 14, 2024 TIME: 1:22 PM PATIENT IDENTITY VERIFICATION COMPLETED USING TWO (2) STANDARD IDENTIFIERS: Name and Date of confirmed by [...] PATIENT PRESENTS WITH AN IMPLANTABLE OR ATTACHED HEARTH FEEDER: No ALLERGIES: Reviewed and unchanged CONTRAST ALLERGY: NO. EXAM: MRI - CONTRAST TYPE: GROUP II PERIPHERAL IV DATA: Ambulatory: A peripheral IV was started in the Right antecubital site with a Angio cath: 22 gauge. RADIOLOGY DEPARTMENT: MR; Exam(s) Completed: Body: Female Pelvis. Aromatherapy Administered: No SIGNATURE: RT Jose Angel(R) PATIENT NAME: Karolina Ahn DATE: December 14, 2024 TIME: 1:22 PM documented in this encounter [facility] 12-14-2024 Note HNO ID: [id number] Author: KAROLINA SOLIZ RT(R) Service: ? Author Type: Technologist Type: Progress Notes Filed: 12/14/2024 13:23 Note Text: Radiology Service Progress Note DATE OF SERVICE: December 14, 2024 TIME: 1:22 PM PATIENT IDENTITY VERIFICATION COMPLETED USING TWO (2) STANDARD IDENTIFIERS: Name and Date of confirmed by [...] PATIENT PRESENTS WITH AN IMPLANTABLE OR ATTACHED HEARTH FEEDER: No ALLERGIES: Reviewed and unchanged CONTRAST ALLERGY: NO. EXAM: MRI - CONTRAST TYPE: GROUP II PERIPHERAL IV DATA: Ambulatory: A peripheral IV was started in the Right antecubital site with a Angio cath: 22 gauge. RADIOLOGY DEPARTMENT: MR; Exam(s) Completed: Body: Female Pelvis. Aromatherapy Administered: No SIGNATURE: RT Jose Angel(R) PATIENT NAME: Karolina Ahn DATE: December 14, 2024 TIME: 1:22 PM [facility] 12-11-2024 Discharge summary [facility] 12-11-2024 Radiology Diagnostic study note [facility] Imaging Services [address] [place] [address] [id number] CTA Abd w/Runoff W/WO Contrast MR#: [id number] Acct: [id number] Name: KAROLINA AHN Rep #: [id number] : 1965 F 59 From: Ramon Arvizu MD PCP: Dr. Jimbo Dash MD Status: REG E R Study:CTA Abd w/Runoff W/WO Contrast Date of Exam: 12/11/24 Exam# [id number] Ordering Dr: Loly Ledesma DO PROCEDURE: CTA ABD W/RUNOFF W/WO CONTRAST 12/11/2024 REASON FOR EXAM: ? LEFT ARTERIAL OCCLUSION TECHNIQUE: CTA ABD W/RUNOFF W/WO CONTRAST Multiplanar Sagittal and Coronal images were obtained. 3D and or MIPS post processing was performed One or more dose reduction techniques were used (e.g., Automated exposure control, adjustment of the mA and/or kV according to patient size, use of iterative reconstruction technique). CONTRAST: Isovue 370 VOLUME: 100 mL RADIATION DOSE SUMMARY: CTDlvol: 8.8 mGy DLP: 1034.97 mGycm COMPARISON: None FINDINGS: Aorta: Abdominal aorta is normal in size. No significant atherosclerotic plaque.No evidence of aneurysm or dissection. Iliac Arteries: Iliac arteries are normal in size with no significant plaque or stenosis. Celiac: Normal. SMA: Normal. LIYA : Normal. Right Renal: Mild mixed calcified and soft plaque identified. Left Renal: Normal. Lower Extremity Runoff (Bilateral): Common Femoral Arteries: Unremarkable Superficial Femoral Arteries: Unremarkable Profunda Femoris Arteries: Unremarkable Popliteal Arteries: The right popliteal artery is patent. Poor visualization ofthe left popliteal artery. Tibial and Peroneal Arteries: Right tibial and peroneal arteries are patent. Nonvisualization of the left tibioperoneal trunk as well as the anterior and posterior tibial arteries. Distal Runoff: Three-vessel runoff in the right leg. No visualization of distalrunoff in the left leg. Extravascular Findings: Diffuse fatty infiltration of the liver. Venous stents seen in both right and left common iliac veins. CT/CTA Abd w/Runoff W/WO Contrast IMPRESSION: Poor runoff in the left lower extremity distal to the popliteal artery. Reading Location: [facility] CC: Dr. Jimbo Dash MD; Robert Ledesma DO ~ Carpet Installer Helper: Signed [facility] 12-08-2024 Note Addended by: Aneta DAILY on: 12/08/2024 03:46 PM Modules accepted: Orders [facility] 12-08-2024 Miscellaneous Notes Addended by: MARGUERITE DAILY on: 12/08/2024 03:46 PM Modules accepted: Orders documented in this encounter [facility] 12-08-2024 Note HNO ID: [id number] Author: MARGUERITE DAILY APRN.LISANDRO Service: ? Author Type: Nurse Practitioner Type: Progress Notes Filed: 12/08/2024 15:46 Note Text: [facility] Subjective HPI HPI Karolina Ahn is a [...] tension free vaginal sling, cystoscopy (Dr. Luis, [facility]) VAGINAL HYSTERECTOMY 04/06/2014 LAVH, BSO, anterior and posterior repair (Dr. Muniz, [facility]) ALLERGIES Hydrocodone-Acetaminophen, Aspirin, and Oxycodone MEDICATIONS Surgical [...] diagnosis) Post op shoe provided F/u with able bodied seaman in 10 days if s/s persist. Prophylactic atb ordered F/u for s/s infection. 2. Injury of toe on left foot, initial encounter - ICD9: 959.7, ICD10: S99.922A - XR TOE AP/LAT/OBL LEFT IMPRESSION: Probable intra-articular fracture of the base of the distal phalanx of the second digit Dictated by : DO Marguerite SAWYER APRN.ANESTHESIOLOGY CRNA History and Record Review External record(s) reviewed: prior outpatient record. Disposition The patient was discharged. Procedures [1] Social History Tobacco Use Smoking status: Never Smokeless tobacco: Never Vaping Use Vaping status: Never Used Substance Use Topics Alcohol use: No Drug use: No [facility] 12-08-2024 History of Present illness Narrative Images from the original note [...] tension free vaginal sling, cystoscopy (Dr. Luis, [facility]) VAGINAL HYSTERECTOMY 04/06/2014 LAVH, BSO, anterior and posterior repair (Dr. Muniz, [facility]) ALLERGIES Hydrocodone-Acetaminophen, Aspirin, and Oxycodone MEDICATIONS Surgical [...] diagnosis) Post op shoe provided F/u with able bodied seaman in 10 days if s/s persist. Prophylactic [...] Drug use: No documented in this encounter [facility] 12-08-2024 History of Present illness Narrative Radiology Service Progress Note PATIENT [...] PATIENT PRESENTS WITH AN IMPLANTABLE OR ATTACHED HEARTH FEEDER: No RADIOLOGY DEPARTMENT: General X-ray: Exam(s) Completed: Lower Extremity X-Ray(s): Toes, Left 2nd toe PERIPHERAL IV DATA: Not applicable SIGNED BY: RT Stefani(Jake) December 08, 2024 2:23 PM documented in this encounter [facility] 12-08-2024 Note HNO ID: [id number] Author: SADE DAVILA RT(R) Service: ? Author Type: Hide Dyer Type: Progress Notes Filed: 12/08/2024 14:35 Note [...] PATIENT PRESENTS WITH AN IMPLANTABLE OR ATTACHED HEARTH FEEDER: No RADIOLOGY DEPARTMENT: General X-ray: Exam(s) Completed: Lower Extremity X-Ray(s): Toes, Left 2nd toe PERIPHERAL IV DATA: Not applicable SIGNED BY: RT Stefani(Jake) December 08, 2024 2:23 PM [facility] 11-24-2024 Note HNO ID: [id number] Author: FÁTIMA SANTILLAN MD Service: ? Author [...] your prolapse (not pressure or fullness) N/A [facility] 11-24-2024 History of Present illness Narrative Medical and Symptom History: PFDI-20 [...] from the original note were not included. [facility] NEW PATIENT CONSULT/HISTORY [...] 09/24/2024. Other /urogyn providers: April Nicole MD [employer] Teacher: STERLING Dunn The patient was seen by STERLING Dunn of DISPUTE COORDINATOR for 2-month history of dysuria and pelvic [...] by my nurse/MA at today's visit. Today's odvmh-jj-[id number] urine testing trace, intact blood, negative nitrite, [...] Medications None reported Previous HRT-blood clots Past DISPUTE COORDINATOR History: G 6 P 6 Vaginal deliveries: [...] tension free vaginal sling, cystoscopy (Dr. Luis, [facility]) VAGINAL HYSTERECTOMY 04/06/2014 LAVH, BSO, anterior and posterior repair (Dr. Muniz, [facility]) FAMILY HISTORY Problem Relation Age of Onset [...] discussed with the Patient or Patient's Authorized Public Address Announcer. As applicable, any other physician, advance practice provider, medical student, or other health professional student that will be observing or involved in the sensitive examination for educational or training purposes was discussed with the Patient or Authorized Public Address Announcer. The Patient or Authorized Public Address Announcer has agreed to proceed with the sensitive [...] social history documented by my ancillary staff. Reserves Clerk offered:Patient accepts, visit chaperoned by Alejandra Flannery MA. Fátima Santillan MD Staff Urologist documented in this encounter [facility] 11-24-2024 Note HNO ID: [id number] Author: FÁTIMA SANTILLAN MD Service: ? Author Type: Physician Type: Progress Notes Filed: 11/24/2024 23:13 Note Text: [facility] NEW PATIENT CONSULT/HISTORY [...] 09/24/2024. Other /urogyn providers: April Nicole MD [employer] Drafting Teacher: STERLING Dunn The patient was seen by STERLING Dunn of DISPUTE COORDINATOR for 2-month history of dysuria and pelvic [...] by my nurse/MA at today's visit. Today's krrnu-hb-wbqa urine testing trace, intact blood, negative nitrite, small leukocyte. Previous Urogyn Procedures 04/06/2014, LAVH, BSO, anterior and posterior colporrhaphy (Kat Muniz MD) Previous Urologic Procedures 04/06/2014, cystoscopy and placement of retropubic tension-free vaginal sling, (Zander Luis MD-concurrent with prolapse surgery outlined above) 2021, laser lithotripsy bladder calculus) April Nicole MD). 02/15/2022, laser lithotripsy of bladder calculus (April Nicole MD)-op report reviewed. Findings are 1 cm bladder stone anterior bladder wall Current Urologic Medications None reported Previous HRT-blood clots Past DISPUTE COORDINATOR History: G 6 P 6 Vaginal deliveries: [...] SEE HPI Constitu (more content not included)... [facility] 11-23-2024 Telephone encounter Note Referral has not been authorized yet. I recommend checking with your insurance provider [employer] [facility] 11-23-2024 Miscellaneous Notes Referral has not been authorized yet. I recommend checking with your insurance provider [employer] documented in this encounter [facility] 10-23-2024 Instructions Fátima Santillan MD - 10/23/2024 [...] while lying down. documented in this encounter [facility] 10-23-2024 Note HNO ID: [id number] Author: FÁTIMA SANTILLAN MD Service: ? Author Type: Physician Type: Procedures Filed: 11/24/2024 23:02 Note Text: CYSTOSCOPY PROCEDURE NOTE: Karolina Ahn is a 59 year old female who presents with recurrent bladder stones. Cystoscopy is planned. Pt ID verified with patient: Yes Procedure verified with patient: Yes Procedure confirmed with physician and senior administrator support: Yes UNIVERSAL PROTOCOL / SAFETY CHECKLIST Procedure [...] and increase oral fluid intake as directed. Reserves Clerk offered:Patient accepts, visit chaperoned by Alejandra Flannery MA ASSESSMENT/PLAN: Bladder calculus, presumed foreign body reaction status post prior mid urethral sling See separate visit note for assessment, plans and further evaluation. [facility] 10-23-2024 Procedure note CYSTOSCOPY PROCEDURE NOTE: Karolina Ahn is a 59 year old female who presents with recurrent bladder stones. Cystoscopy is planned. Pt ID verified with patient: Yes Procedure verified with patient: Yes Procedure confirmed with physician and senior administrator support: Yes UNIVERSAL PROTOCOL / SAFETY CHECKLIST Procedure [...] and increase oral fluid intake as directed. Reserves Clerk offered:Patient accepts, visit chaperoned by Alejandra Flannery MA ASSESSMENT/PLAN: Bladder calculus, presumed foreign body reaction status post prior mid urethral sling See separate visit note for assessment, plans and further evaluation. [facility] 10-23-2024 Procedure note CYSTOSCOPY PROCEDURE NOTE: Karolina Ahn is a 59 year old female who presents with recurrent bladder stones. Cystoscopy is planned. Pt ID verified with patient: Yes Procedure verified with patient: Yes Procedure confirmed with physician and senior administrator support: Yes UNIVERSAL PROTOCOL / SAFETY CHECKLIST Procedure [...] and increase oral fluid intake as directed. Reserves Clerk offered:Patient accepts, visit chaperoned by Alejandra Flannery MA ASSESSMENT/PLAN: Bladder calculus, presumed foreign body reaction status post prior mid urethral sling See separate visit note for assessment, plans and further evaluation. documented in this encounter [facility] 10-23-2024 Note HNO ID: [id number] Author: FÁTIMA SANTILLAN MD Service: ? Author Type: Physician Type: Progress Notes Filed: 11/24/2024 23:02 Note Text: [facility] 10-23-2024 History of Present illness Narrative documented in this encounter [facility] 10-15-[address] result received via fax. It shows a well defined 4.5mm calcification adherent to right anterolateral aspect of bladder wall, adherent stone vs mural calcification within a bladder wall lesion. Will ask staff to scan into chart and to also request the images for Dr Pathak to review. Patient has cystoscopy with him 11/03/24. Elida Angelo APRN.CNP [facility] Work Phone: 10-15-[address] result received via fax. It shows a well defined 4.5mm calcification adherent to right anterolateral aspect of bladder wall, adherent stone vs mural calcification within a bladder wall lesion. Will ask staff to scan into chart and to also request the images for Dr Pathak to review. Patient has cystoscopy with him 11/03/24. Elida Angelo APRN.ANESTHESIOLOGY CRNA documented in this encounter [facility] 10-14-2024 Radiology Diagnostic study note [facility] Services [address], [place] [id number] Pelvis without IV Contrast MR#: [id number] Acct: [id number] Name: KAROLINA AHN Rep #: [id number] : 1965 F 59 From: Matt Beard MD PCP: Dr. Jimbo Dash MD Status: REG C KIM Study:Pelvis without IV Contrast Date of Exam : 10/13/24 Exam# [id number] Ordering Dr: Lian marrero,Out o. PROCEDURE: PELVIS [...] the large bowels. Mild osteopenia. Reading [facility] [address] CC: ELIDA ANGELO; Dr. Jimbo Dash MD ~ Carpet Installer Helper: Signed [facility] 09-25-2024 Telephone encounter Note Patient is aware of plan for CT and cystoscopy with Dr Pathak. Orders have been placed in office visit from yesterday. Please help patient schedule. Thanks. Elida Angelo APRN.CNP [facility] 09-25-2024 Miscellaneous Notes Patient is aware of plan for CT and cystoscopy with Dr Pathak. Orders have been placed in office visit from yesterday. Please help patient schedule. Thanks. Elida Angelo APRN.CNP documented in this encounter [facility] 09-24-2024 Instructions Elida Angelo APRN.CNP - 09/24/2024 11:38 AM EDT I will reach out to my physician colleagues for next steps. Call us Saturday if you have not heard from our office. UROLOGY: [phone] documented in this encounter [facility] 09-24-2024 History of Present illness Narrative Images from the original note were not included. [facility] [place] UROL [place] EXCHANGE NEW PATIENT UROLOGY VISIT 09/24/2024 7:33 AM PATIENT NAME: Karolina Ahn DATE OF : 1965 TODAY'S DATE: 09/24/2024 Referring Provider: Ric Taylor [address] [facility] [address] Referring Note Reviewed: Yes Chief Complaint: bladder [...] documents). She has been referred by her DISPUTE COORDINATOR office. Chart notes and results reviewed. Reports [...] tension free vaginal sling, cystoscopy (Dr. Luis, [facility]) VAGINAL HYSTERECTOMY 04/06/2014 LAVH, BSO, anterior and posterior repair (Dr. Muniz, [facility]) Social History: Social History Tobacco Use Smoking status: Never Smokeless tobacco: Never Vaping Use Vaping status: Never Used Substance Use Topics Alcohol use: No Drug use: No Medications: Prior to Admission medications : Medication baclofen vaginal suppository 10 mg (CPD), Sig Unwrap and insert 1 Suppository vaginally once daily as directed., Start Date 09/17/22, End Date , Taking? , Authorizing Provider Walt Ulrich APRN.ANESTHESIOLOGY CRNA Medication phenazopyridine (PYRIDIUM) 200 mg tablet, Sig [...] (no units) Date Value 09/17/2022 Negative Specific [place], Ur (no units) Date Value 09/17/2022 1.010 [...] visit regarding bladder stone noted on cystoscopy 07/28/24. She follows with Dr Nicole who has [...] schedule appt. Patient is agreeable. Elida Angelo APRN.ANESTHESIOLOGY CRNA Consultation requested by Ric Clarke [place] [id number] for an opinion regarding Karolina Ahn patient and my final recommendations will be communicated back to the requesting physician by way of shared Medical record or letter via US mail. Recording using Evident.io software for draft documentation of the visit was discussed with the patient/authorized financial service representative; all questions welcomed and answered. Patient/authorized financial service representative agreed to proceed documented in this encounter [facility] 09-24-2024 Note HNO ID: [id number] Author: ELIDA ANGELO APRN.LISANDRO Service: ? Author Type: Nurse Practitioner Type: Progress Notes Filed: 09/25/2024 12:20 Note Text: [facility] [place] UROL [place] EXCHANGE NEW PATIENT UROLOGY VISIT 09/24/2024 7:33 AM PATIENT NAME: Karolina Ahn DATE OF : 1965 TODAY'S DATE: 09/24/2024 Referring Provider: Ric Clarke [place] [id number] Referring Note Reviewed: Yes Chief Complaint: bladder [...] documents). She has been referred by her DISPUTE COORDINATOR office. Chart notes and results reviewed. Reports [...] tension free vaginal sling, cystoscopy (Dr. Luis, [facility]) VAGINAL HYSTERECTOMY 04/06/2014 LAVH, BSO, anterior and posterior repair (Dr. Muniz, [facility]) Social History: Social History Tobacco Use Smoking status: Never Smokeless tobacco: Never Vaping Use Vaping status: Never Used Substance Use Topics Alcohol use: No Drug use: No Medications: Prior to Admission medications : Medication baclofen vaginal suppository 10 mg (CPD), Sig Unwrap and insert 1 Suppository vaginally once daily as directed., Start Date 09/17/22, End Date , Taking? , Authorizing Provider Walt Ulrich APRN.ANESTHESIOLOGY CRNA Medication phenazopyridine (PYRIDIUM) 200 mg tablet, Sig [...] (no units) Date Value 09/17/2022 Negative Specific [place], Ur (no units) Date V (more content not included)... [facility] 09-08-2024 Telephone encounter Note ABIMAEL:08/26/2024 [facility] health with Ric Taylor APRN, ANESTHESIOLOGY CRNA FOV: N/A S:Patient is wanting know about [...] I will send her message to the PRODUCTION CONTROL PEGBOARD CLERK pool. Ai Barksdale RN [facility] 09-08-2024 Miscellaneous Notes ABIMAEL:08/26/2024 Distance health with Ric Taylor APRN, CNP FOV: N/A [...] I will send her message to the PRODUCTION CONTROL PEGBOARD CLERK pool. Ai Barksdale RN documented in this encounter [facility] 08-26-2024 Note HNO ID: [id number] Author: RIC TAYLOR APRN.LISANDRO Service: ? Author Type: Nurse Practitioner Type: Progress Notes Filed: 08/26/2024 08:48 Note Text: VIRTUAL VISIT PROGRESS NOTE This is a virtual visit using Baojia.comom Video Visit. It required patient-provider interaction for the medical decision making as documented below. I have communicated my name and active licensure. The patient's identity and physical location were verified at the time of this visit. Either the patient or their legal financial service representative has been informed of the risks [...] years ago (by 2 different doctors in [place]). Has been seen by Dr. Nicole, urologist [...] tension free vaginal sling, cystoscopy (Dr. Luis, [facility]) VAGINAL HYSTERECTOMY 04/06/2014 LAVH, BSO, anterior and posterior repair (Dr. Muniz, [facility]) FAMILY HISTORY Problem Relation Age of Onset [...] (M62.838) Levator spas (more content not included)... [facility] 08-26-2024 History of Present illness Narrative VIRTUAL VISIT PROGRESS NOTE This is a virtual visit using Baojia.comom Video Visit. It required patient-provider interaction for the medical decision making as documented below. I have communicated my name and active licensure. The patient's identity and physical location were verified at the time of this visit. Either the patient or their legal financial service representative has been informed of the risks [...] years ago (by 2 different doctors in [place]). Has been seen by Dr. Nicole, urologist [...] 02/01/2011 Normal Colonoscopy CYSTOSCOPY 02/15/[address] Nicloe, no exposure of urethral mesh, 1 cm [...] tension free vaginal sling, cystoscopy (Dr. Luis, [facility]) VAGINAL HYSTERECTOMY 04/06/2014 LAVH, BSO, anterior and posterior repair (Dr. Muniz, [facility]) FAMILY HISTORY Problem Relation Age of Onset [...] pt in the next week Ric Taylor APRN.ANESTHESIOLOGY CRNA documented in this encounter [facility] 08-17-2024 Evaluation note Diagnosis Onset Date Resolution Stenosis of iliac vein chronic August 17, 2024 1:03pm [facility] Work Phone: 1(844) 482-279306-07-2023 History and physical note Author Dr. Goldberg [facility] October 03, 2022 7:35am Note Date/Time October 03, 2022 7:19a m [facility] Medical Records Department [address] [place] [address] History & Physical Exam 10/03/2206 MR#: [id number] Acct: [id number] Name: KAROLINA AHN Rep #:[id number] : 1965 57 From: Martine KU PCP: Dr. Jimbo Dash MD Status:REG S [place] Location: [facility] - General General Date of Service: 10/03/22 Chief Complaint: [...] Otherwise,she has no significant medical history including CAD/KS, COPD/asthma, CKD, CVA/TIA. She has no complaints today. Denies SOB, CP, F/C, N/V, palpitations, syncope. 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 Jimbo Dash MD~ Signed [facility] Work Phone: 1(760) 578-467501-02-2023 History of Present illness Narrative* Celia Hernandez APRN.ANESTHESIOLOGY CRNA - 04/30/2022 5:12 PM EST This note was created using LocalBonusriter. Subjective Karolina Ahn is a 56 year old female. 56 year old female with no PMH presents with complaints of rash. Acute onset of symptoms was 2 days ago Bilateral arms & neck +red, raised and itching Denies fever or chills. Denies malaise or fatigue Denies SOB or CP. Denies dyspnea. Utilized allergy pills during day. 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. Denies new lotions, soaps, or medicines. The history is provided by the patient. No speech language pathologist travel was used. Rash This is a new [...] symptoms persist or worsen. - Celia Hernandez APRN.LISANDRO [facility] Miscellaneous Notes* Telephone Encounter - Sadia Levine - 03/01/2022 11:29 AM EDT Faxed referral received twice from PCP Upon contacting PT by phone PT declined any appointment stating that she see's Dr. Bekah Redd and does not wish to schedule with [facility]. Sadia Levine [facility] History of Present illness Narrative* Bekah Redd APRN.CNM - 10/30/2021 8:02 PM EDT Consult to Uro/WILD ANIMAL CARETAKER for dyspareunia. She would like bladder sling looked at as well. Bekah Redd APRN.CNM [facility] Miscellaneous Notes* Telephone Encounter - Bekah Redd [...] PCP. Bekah Redd APRN.CNM [facility] History of Present illness Narrative* Bekah Redd APRN.CNM - 10/24/2021 10:43 PM EDT Patient treated for UTI on 10/12/21. She completed antibiotics and reports still having urinary urgency and burning. Will send UA and culture. Bekah Redd APRN.CNM [facility] History of Past illness Narrative* Problem Noted Date Resolved Date Incisional hernia without mention of obstruction or gangrene 03/24/2008 07/19/2009 Enthesopathy of unspecified site 10/09/2006 07/19/2009 Pain in limb 08/05/2006 07/19/2009 Stress fracture of the metatarsals 08/05/2006 07/19/2009 Other hammer toe (acquired) 02/27/200606/28 Bunion 02/27/2006 07/19/2009 Hallux valgus (acquired) 02/18/2006 010 documented as of this encounter (statuses as of 10/12/2021) [facility] Narrative* Problem Noted Date Resolved Date Incisional hernia without mention of obstruction or gangrene 03/24/2008 07/19/2009 Enthesopathy of unspecified site 10/09/2006 07/19/2009 Pain in limb 08/05/2006 07/19/2009 Stress fracture of the metatarsals 08/05/2006 07/19/2009 Other hammer toe (acquired) 02/27/200606/28 Bunion 02/27/2006 07/19/2009 Hallux valgus (acquired) 02/18/2006 010 documented as of this encounter (statuses as of 10/25/2021) [facility] of [facility] Narrative* Problem Noted Date Resolved Date Incisional hernia without mention of obstruction or gangrene 03/24/2008 07/19/2009 Enthesopathy of unspecified site 10/09/2006 07/19/2009 Pain in limb 08/05/2006 07/19/2009 Stress fracture of the metatarsals 08/05/2006 07/19/2009 Other hammer toe (acquired) 02/27/200606/28 Bunion 02/27/2006 07/19/2009 Hallux valgus (acquired) 02/18/2006 010 documented as of this encounter (statuses as of 10/27/2021) [facility] of [facility] Narrative* Problem Noted Date Resolved Date Incisional hernia without mention of obstruction or gangrene 03/24/2008 07/19/2009 Enthesopathy of unspecified site 10/09/2006 07/19/2009 Pain in limb 08/05/2006 07/19/2009 Stress fracture of the metatarsals 08/05/2006 07/19/2009 Other hammer toe (acquired) 02/27/200606/28 Bunion 02/27/2006 07/19/2009 Hallux valgus (acquired) 02/18/2006 010 documented as of this encounter (statuses as of 10/31/2021) [facility] Narrative* Problem Noted Date Resolved Date Incisional hernia without mention of obstruction or gangrene 03/24/2008 07/19/2009 Enthesopathy of unspecified site 10/09/2006 07/19/2009 Pain in limb 08/05/2006 07/19/2009 Stress fracture of the metatarsals 08/05/2006 07/19/2009 Other hammer toe (acquired) 02/27/200606/28 Bunion 02/27/2006 07/19/2009 Hallux valgus (acquired) 02/18/2006 010 documented as of this encounter (statuses as of 03/01/2022) [facility] Narrative* Problem Noted Date Resolved Date Incisional hernia without mention of obstruction or gangrene 03/24/2008 07/19/2009 Enthesopathy of unspecified site 10/09/2006 07/19/2009 Pain in limb 08/05/2006 07/19/2009 Stress fracture of the metatarsals 08/05/2006 07/19/2009 Other hammer toe (acquired) 02/27/200606/28 Bunion 02/27/2006 07/19/2009 Hallux valgus (acquired) 02/18/2006 010 documented as of this encounter (statuses as of 05/03/2022) [facility] Narrative* Problem Noted Date Resolved Date Incisional hernia without mention of obstruction or gangrene 03/24/2008 07/19/2009 Enthesopathy of unspecified site 10/09/2006 07/19/2009 Pain in limb 08/05/2006 07/19/2009 Stress fracture of the metatarsals 08/05/2006 07/19/2009 Other hammer toe (acquired) 02/27/200606/28 Bunion 02/27/2006 07/19/2009 Hallux valgus (acquired) 02/18/2006 010 documented as of this encounter (statuses as of 10/02/2022) [facility] Note Date/Time December 11, 2024 9: 25am [facility] Medical Records Department [address] [place] [address] Emergency Department Summary 12/11/24 MR#: [id number] Acct: [id number] Name: KAROLINA HAN Rep #:[id number] : 1965 59 From: Deep Lion MD PCP: Dr. Jimbo Dash MD Status:REG E R Location: ED HPI History of Present Illness Chief Complaint: Lower Extremity Injury Detail of Chief Complaint: Lower extremity pain and swelling Informant: patient Onset/Context/Timing Onset: Today (Today) Context: Sudden Onset Timing: Continuous Quality: Pain, 6 out of 10 Location: Entire left lower extremity Current Severity: Moderate Maximum Severity: Moderate Worsened by: Walking Relieved by: Nothing Associated Symptoms Associated Symptoms: Patient states she did not feel well yesterday. She had dyspnea on exertio Narrative Narrative: Patient with history of recurrent DVT. She had an extensive clot in her right lower extremity. She told Dr. Ledesma who saw her prior to my arrival that she had a recent stent on the left side. He informed her that her toes looked duskyand she had discoloration of her leg. She complained of abrupt pain. Patient yesterday states she did not feel her normal self. She had dyspnea withactivity which is not normal. She denied pleuritic chest pain. Patient denies history of peripheral arterial disease. Patient presently deniesshortness of breath. She denies chest pain. She denies headache, visual, ocular auditory symptoms. She denies abdominal pain, nausea, vomiting or diarrhea. She denies black or maroon stool. Patient states she was converted from Eliquis to Plavix. This occurred 1 to 2 months ago. This was in discussion with Dr. Goldberg and risk benefits were explained to her. Prior similar symptoms: Yes (Right side and history of clot left iliac vein.) Recent Illness/Hospitalization: No PFSH PFSH Medical History GERD (gastroesophageal reflux disease) Loss of hearing Wears glasses Arthritis Bladder disease DVT (deep venous thrombosis) Restless legs Difficulty swallowing Gastric reflux Non-smoker Leg cramps History of pain when walking History of echocardiogram History of stress test Anxiety Anemia Home Medications ?Medication ?Instructions ?Recorded ?Last Taken ?Type sertraline 100 mg tablet 50 mg PO BID anxiety 4 03/13/24 History Cholecalciferol (Vitamin D3) 5,000 unit PO DAILY suppl ement 03/07/20 03/13/24 History [Vitamin D3] cyanocobalamin (vitamin B-12) 3,000 mcg PO DAILY suppl ement 03/07/20 03/13/24 History 5,000 mcg disintegrating tablet omeprazole 20 mg tablet,delayed 20 mg PO QHS reflux 03/12/24 History release pitavastatin calcium 2 mg tablet 4 mg PO QPM cholester ol 02/08/22 03/12/24 History (Livalo) cetirizine 10 mg capsule (Zyrtec) 10 mg PO DAILY aller gies 04/12/22 03/13/24 Hi story dicyclomine 20 mg tablet 20 mg PO BID IBS 10/02/22 History alendronate 70 mg tablet 70 mg PO QWEEK bones 4 Unknown History tizanidine 2 mg tablet 2 mg PO QHS PRN muscle spast icity 12/10/23 Unknown Rx #14 tabs clopidogrel 75 mg tablet (Plavix) 75 mg PO DAILY #90 t abs 10/27/24 Unknown Rx apixaban 5 mg (74 tabs) tablets in See Rx Instructions .Route 12/11/24 Unknown Rx a dose pack (Eliquis DVT-PE Treat .COMPLEX #74 tabs 30D Start) oxycodone 10 mg tablet,crush 10 mg PO Q12H 3 days #6 t abs 12/11/24 Unknown Rx resistant,extended release 12 hr oxycodone-acetaminophen 5 mg-325 1 tab PO Q6H PRN PRN pain 5 days 12/11/24 Unknown Rx mg tablet #20 TABLETS Allergy/AdvReac Type Severity Reaction Status Date / Time hydrocodone (From Vicodin) Allergy Nausea/Vom/ Verified 12/11/24 06:53 Diarrhea Family History Mother Colon cancer Cancer [...] ROS ROS ED Constitutional Constitutional ED: Denies chills or fever(s) Cardiovascular Cardiovascular: Denies chest pain, orthopnea, palpitations, paroxysmal nocturnaldyspnea or racing heartbeat Respiratory/Chest Respiratory/Chest: Reports dyspnea and dyspnea on exertion; Denies cough, orthopnea or paroxysmal nocturnal dyspnea Gastrointestinal Gastrointestinal: Denies abdominal pain, nausea or vomiting Genitourinary Genitourinary ED: Denies dysuria, hematuria or urinary frequency Musculoskeletal Musculoskeletal: Denies arthralgias or myalgias Integumentary Reports other Details: Left leg is discolored Neurologic Neurologic: Denies paresthesias or weakness Endocrine Endocrinology: Denies cold intolerance or heat intolerance Hematologic/Lymphatic Hematologic/Lymphatic: Reports easy bruising EXAM Physical Exam Const Vital Signs: 12/11/24 06:49 Temperature 98 F Temperature Source Oral Pulse Rate 103 H Respiratory Rate 18 Blood Pressure 147/101 H Blood Pressure Mean 116 Pulse Ox 98 Positive well nourished and well developed General Appearance ED: well developed and NAD HEENT Reports moist mucous membranes HEENT Narrative: Head is atraumatic, cephalic. 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 Patienthas a palpable DP and PT pulse. It might be slightly diminished compared to theright. I did review the CT a of the abdomen pelvis with runoffs and there is decreased flow at the area of the popliteal artery. There is no obvious clot that I was able to appreciate. Will await formal read by radiologist. Neuro oriented x3 and CN's II-XII intact bilaterally Sensorium / Orientation: alert Psych mental status grossly normal Skin Skin Narrative: Phlegmasia cerulea dolens left lower extremity MDM MDM MDM Narrative Medical decision making narrative: Initial entries by Dr. Ledesma. After seeing patient reviewing her records with prior history of VTE and not PAD and the fact that she has phlegmasia cerulea dolens suspect she has an extensive clot in her left lower extremity. Venous duplex study was obtained since radiologist does not comment on the venous system. The venous duplex reveals normal greater saphenous vein. There is no acute deep venous thrombus in the common femoral vein, common iliac stented vein, EIV, C FV, FV, popliteal, TP trunk, PTV, peroneal vein, gastrocnemius vein, soleus vein. In light of this finding the fact that patient had proceduredone by Dr. Goldberg he was paged. Spoke with Dr. Goldberg. Recommended Eliquis. His office will contact her for outpatient procedure. He was informed that I am concerned that she may have thrown a PE. He is in a agreement. Since she is hemodynamically stable not hypoxic and there is no vascular compromise of the extremity recommendation was Eliquis 10 mg twice daily for 1 week and then 5 mg twice daily. Patient is requesting pain medicine. She was discharged with pain medicine. She was instructed if she develops chest pain difficulty breathing to return immediately. If her leg becomes pale to return immediately. As document HPI narrative prior records were reviewed and specifically Dr. Kingsley. History & Record Review Additional record(s) reviewed:: Prior inpatient record and Prior outpatient record Lab Data Attestation: I reviewed the patient's lab results. Lab results narrative: Lactate is normal. Competence of metabolic panel is unremarkable. BUN/creatinine ratio is slightly elevated 21-1. CBC is normal. Labs: Laboratory Results - last 24 hr 12/11/24 12/11/24 07:36 07:59 WBC 5.4 RBC 4.87 Hgb 14.5 Hct 43.8 MCV 89.9 MCH 29.8 MCHC 33.1 RDW Std Deviation 42.1 RDW Coeff of Horacio 12.8 Plt Count 255 MPV 10.1 Immature Gran % (Auto) 0.600 Neut % (Auto) 52.4 Lymph % (Auto) 30.7 Randolph % (Auto) 7.8 Eos % (Auto) 7.8 H Baso % (Auto) 0.7 Absolute Neuts (auto) 2.8 Absolute Lymphs (auto) 1.65 Nucleated RBC % 0 PT 13.5 INR 1.0 APTT 25.8 Sodium 139 Potassium 4.1 Chloride 104 Carbon Dioxide 23.0 Anion Gap 12 BUN 19 Creatinine 0.91 Estim Creat Clear Calc 59.90 Est GFR (MDRD) Non-Af 73 BUN/Creatinine Ratio 21.0 H Glucose 94 Lactic Acid < 1.0 Calcium 9.7 Radiography Diagnostic Testing: Clinical Impression(s) from Imaging Studies Abdomen/Pelvis CTA 12/11/24 06:54 IMPRESSION: Poor runoff in the left lower extremity distal to the popliteal artery. Reading Location: [facility] Management Discussion w/another healthcare provider: Hand Sprayer (Spoke with Dr. Goldberg. This was documented the MDM portion of the EMR.) Discharge Plan Triage Chief Complaint: Lower Extremity Injury ED Provider: Deep Lion Dx/Rx/DC Orders Clinical Impression: Phlegmasia cerulea dolens of left lower extremity, Sinus tachycardia, Acute pain of left lower extremity Instructions: ED Deep Vein Thrombosis (DVT) Prescriptions: New Eliquis DVT-PE Treat 30D Start 5 mg (74 tabs) Tablets,Dose Pack See Rx Instructions .ROUTE .COMPLEX Qty: 74 0RF Rx Instructions: orally per package directions oxycodone-acetaminophen 5-325 mg tablet 1 tab PO Q6H PRN PRN (Reason: pain) 5 Days Qty: 20 0RF oxycodone 10 mg tablet,oral only,ext.rel.12 hr 10 mg PO Q12H 3 Days Qty: 6 0RF No Action Zyrtec 10 mg capsule 10 mg PO DAILY tizanidine 2 mg tablet 2 mg PO QHS PRN (Reason: muscle spasticity) Qty: 14 1RF sertraline 100 MG tablet 50 mg PO BID Patient Comments: ANXIETY cyanocobalamin (vitamin B-12) 5,000 MCG tablet,disintegrating 3,000 mcg PO DAILY Cholecalciferol (Vitamin D3) [Vitamin D3] 5,000 UNIT capsule 5,000 unit PO DAILY omeprazole 20 MG tablet,delayed release (DR/EC) 20 mg PO QHS pitavastatin calcium [Livalo] 2 mg Tablet 4 mg PO QPM dicyclomine 20 mg Tablet 20 mg PO BID alendronate 70 mg tablet 70 mg PO QWEEK clopidogrel [Plavix] 75 mg tablet 75 mg PO DAILY Qty: 90 3RF Primary Care Provider: Jimbo Dash Referrals: Jimbo Dash MD [Primary Care Provider] - Activity Restrictions/Additional Instructions: If you develop chest pain, shortness of breath walking across the room or up steps or your leg becomes pale and the pain increases return to the emergency department immediately Print Language: Tongan Disposition Disposition: Home, Self Care What to do if you have Problems For any increased pain, shortness of breath, bleeding, nausea or vomiting, chestpain, or any unexpected problems, contact your Primary Care Provider. Call [facility] ([phone]) or report to the closest Emergency Room. Call 911 if necessary. 12/11/24924 <Electronically signed by Deep Lion MD> Cosigner Signature (if applicable): CC: Dr. Jimbo Dash MD ~ Signed [facility] Work Phone: Evaluation note* Diagnosis Dysuria- [facility] Diagnosis Dysuria- Primary [facility] Diagnosis Dysuria- Primary Vaginal atrophy Postmenopausal atrophic vaginitis documented in this encounter [facility] note* Diagnosis Other specified dyspareunia- Primary Vaginal atrophy Postmenopausal atrophic vaginitis Vaginismus documented in this encounter [facility] noteNo assessment information availableWClinton Memorial Hospital Work Phone: Evaluation note* Diagnosis Onset Date Resolution Status Family history of colon cancer in mother acute Urinary tract infection none active [facility] Work Phone: Evaluation note* Diagnosis Dermatitis- Primary Contact dermatitis and other eczema, due to unspecified cause [facility] Diagnosis Onset Date Resolution Status H/O deep venous thrombosis c hronic Varicose vein of leg chronic H/O deep venous thrombosis c hronic Varicose vein of leg chronic [facility] Work Phone: Evaluation note* Diagnosis Onset Date Resolution Status H/O deep venous thrombosis c hronic Varicose vein of leg chronic H/O deep venous thrombosis c hronic Varicose vein of leg chronic Microhematuria acute Symptomatic varicose veins of both lower extremities acute Vulvar varicose veins acute H/O deep venous thrombosis c [facility] Work Phone: Evaluation note* Diagnosis Onset Date Resolution Status H/O deep venous thrombosis c hronic Varicose vein of leg chronic Microhematuria acute Symptomatic varicose veins of both lower extremities acute Vulvar varicose veins acute H/O deep venous thrombosis c [facility] Work Phone: Evaluation note* Diagnosis Onset Date Resolution Status Microhematuria acute Symptomatic varicose veins of both lower extremities acute Vulvar varicose veins acute H/O deep venous thrombosis c hronic Symptomatic varicose veins of both lower extremities acute Vulvar varicose veins acute H/O deep venous thrombosis c hronic Symptomatic varicose veins of both lower extremities acute Vulvar varicose veins acute [facility] Work Phone: Evaluation note* Diagnosis Onset [...] extremities acute H/O deep venous thrombosis c [facility] Work Phone: Evaluation note* Diagnosis Onset Date Resolution Status Acute upper respiratory infection acute Contact with or suspected ex posure to other viral communicable disease acute [facility] Work Phone: Evaluation note* Diagnosis Female dyspareunia- Primary Dyspareunia Levator spasm Abnormal involuntary movements History of suburethral sling procedure Bladder stones Other calculus in bladder [facility] Diagnosis Bladder stone- Primary Other calculus in bladder [facility] Diagnosis Bladder stone Other calculus in bladder [facility] Diagnosis Bladder stone- Primary Other calculus in bladder Erosion of bladder suspension mesh, sequela [facility] Diagnosis Bladder stone- Primary Other calculus in bladder Erosion of bladder suspension mesh, sequela [facility]* Diagnosis Closed nondisplaced fracture of distal phalanx of lesser toe of left foot, initial encounter- Primary Injury of toe on left foot, initial encounter [facility]* Diagnosis Infection in abdomen (HCC) Unspecified peritonitis documented in this encounter [facility] note* Diagnosis Acute deep vein thrombosis (DVT) of proximal vein of left lower extremity (HCC)- Primary Left leg swelling Acute deep vein thrombosis (DVT) of proximal vein of left lower extremity (HCC) Left leg swelling documented in this encounter [facility] Discharge instructionsAdditional Instructions If you develop chest pain, shortness of breath walking across the room or up steps or your leg becomes pale and the pain increases return to the emergency department immediatelyWClinton Memorial Hospital Work Phone: Reason for referral (narrative)No reason for referral information availableWClinton Memorial Hospital Work Phone: Reason for visit Narrative* Diagnostic Procedure Only (Urgent) - Closed Specialty Diagnoses / Procedures Referred By Contac t Referred To Contact XR IMAGING Diagnoses Injury of toe on left foot, initial encounter Procedures XR TOE AP/LAT/OBL LEFT RADEX TOE MINIMUM 2 VIEWS Marguerite Daily APRN.ANESTHESIOLOGY CRNA [address] [place] [address] Phone: tel: fax: [place] [phone] Referral ID Status Reason Start Date Expiration Date V isits Requested Visits Authorized [id number] Closed Auto-Generate d Referral 12/08/2024 01/07/2026 1 1 [facility] for visit Narrative* MRI/CT (Routine) - Closed Specialty Diagnoses / Procedures Referred By Contac t Referred To Contact MR IMAGING Diagnoses Infection in abdomen (HCC) Procedures MRI FEMALE PELVIS WO/W IVCON MRI PELVIS W/O & W/CONTRAST MATERIAL Fátima Santillan MD [address] [place] [address] Phone: tel: fax: [place] [phone] Referral ID Status Reason Start Date Expiration Date V isits Requested Visits Authorized [id number] Closed Auto-Generate d Referral 10/29/2024 01/29/2025 1 1 [facility] Advance Directives No Advanced Directives Records FoundDocuments on File Type Date Recorded Patient Public Address Announcer Expl anation Advance Directive(s) Documents on File Type Date Recorded Patient Public Address Announcer Expl anation Advance Directive(s) Advance Directive Response Recorded Date/ Time Advance Directives No November 03 9 1:50pm Living Will No March 07 3:26pm Power of Slate Roofer Helper No March 07, 2020 3:26pm Advance Directive Response Recorded Date/ Time Advance Directives No November 03 1:50pm Living Will No February 08 9:47am Power of Slate Roofer Helper No February 08, 2022 9:47am Advance Directive Response Recorded Date/ Time Advance Directives No November 03 12:50pm Living Will No February 08 8:47am Power of Slate Roofer Helper No February 08, 2022 8:47am Advance Directive Response Recorded Date/ Time Advance Directives No October 03 7:30am Living Will No October 03, 2022 7 :30am Power of Slate Roofer Helper No October 03, 2022 7:30am Advance Directive Response Recorded Date/ Time Advance Directives No October 03 6:30am Living Will No October 03, 2022 6 :30am Power of Slate Roofer Helper No October 03, 2022 6:30am Advance Directive Response Recorded Date/ Time Living Will Yes June 11 025 3:28pm Power of Slate Roofer Helper Yes June 11, 2024 3:28pm Name of Medical Power of Slate Roofer Helper Liseth bryant June 11, 2024 3:28pm Living Will No November 28, 2023 4:00pm Power of Slate Roofer Helper No November 27 4:00pm Advance Directives No October 03 7:30am Advance Directive Response Recorded Date/ Time Living Will Yes June 11 025 3:28pm Do you have a Healthcare Pow er of Slate Roofer Helper? Yes June 11, 2024 3:28pm Name of Medical Power of Slate Roofer Helper Liseth bryant June 11, 2024 3:28pm Living Will No November 28, 2023 4:00pm Do you have a Healthcare Pow er of Slate Roofer Helper? No November 28, 2023 4:00pm Advance Directives No October 03 7:30am Advance Directive Response Recorded Date/ Time Living Will No November 28, 2023 4:00pm Do you have a Healthcare Power of Slate Roofer Helper? No November 28, 2023 4:00pm Advance Directives No October 03 7:30am Advance Directive Response Recorded Date/ Time Living Will No November 28, 2023 4:00pm Do you have a Healthcare Power of Slate Roofer Helper? No November 28, 2023 4:00pm Do you have a Healthcare Power of Slate Roofer Helper? No December 11, 2024 6:52am Advance Directives No October 03 7:30am Date Activated Date Inactivated Comments 12/15/2024 1:00 AM 12/17/2024 11:36 PM Reason for Referral Specialty Diagnoses / Procedures Referred By Santa hernandez Referred To Contact Diagnoses Other specified dyspareunia Vaginal atrophy Vaginismus Procedures CONSULT TO URO GYNECOLOGY OFFICE/OUTPATIENT NEW HIGH MDM 60-74 MINUTES Bekah Redd APRN.[facility] [address] [place] [address] Referral ID Status Reason Start Date Expiration Date Visits Requested Visits Authorized [id number] Authorized PCP Requested Referral Auto-Generate d Referral [...] of iliac vein August 17, 2024 1:03pm Chief Complaint Admit Date 6 M FU August 17, 2024 1:0 3pm BLADDER STONE October 13, 2024 7:02 pm lower leg December 11, 2024 6: 48am Family History No Family History Records Found [...] or prosecute any alcohol or drug abuse patient.[facility] the event this information is protected by the Federal Confidentiality of Alcohol and Drug Abuse Patient Records regulations: The Federal rules restrict any use of the information to criminally investigate or prosecute any alcohol or drug abuse patient.[facility] the event this information is protected by the Federal Confidentiality of Alcohol and Drug Abuse Patient Records regulations: The Federal rules restrict any use of the information to criminally investigate or prosecute any alcohol or drug abuse patient.[facility] the event this information is protected by the Federal Confidentiality of Alcohol and Drug Abuse Patient Records regulations: The Federal rules restrict any use of the information to criminally investigate or prosecute any alcohol or drug abuse patient.[facility] the event this information is protected by the Federal Confidentiality of Alcohol and Drug Abuse Patient Records regulations: The Federal rules restrict any use of the information to criminally investigate or prosecute any alcohol or drug abuse patient.[facility] the event this information is protected by the Federal Confidentiality of Alcohol and Drug Abuse Patient Records regulations: The Federal rules restrict any use of the information to criminally investigate or prosecute any alcohol or drug abuse patient.[facility] Center[facility] the event this information is protected by the Federal Confidentiality of Alcohol and Drug Abuse Patient Records regulations: The Federal rules restrict any use of the information to criminally investigate or prosecute any alcohol or drug abuse patient.[facility] the event this information is protected by the Federal Confidentiality of Alcohol and Drug Abuse Patient Records regulations: The Federal rules restrict any use of the information to criminally investigate or prosecute any alcohol or drug abuse patient.[facility] the event this information is protected by the Federal Confidentiality of Alcohol and Drug Abuse Patient Records regulations: The Federal rules restrict any use of the information to criminally investigate or prosecute any alcohol or drug abuse patient.[facility] the event this information is protected by the Federal Confidentiality of Alcohol and Drug Abuse Patient Records regulations: The Federal rules restrict any use of the information to criminally investigate or prosecute any alcohol or drug abuse patient.[facility] the event this information is protected by the Federal Confidentiality of Alcohol and Drug Abuse Patient Records regulations: The Federal rules restrict any use of the information to criminally investigate or prosecute any alcohol or drug abuse patient.[facility] Center[facility] the event this information is protected by the Federal Confidentiality of Alcohol and Drug Abuse Patient Records regulations: The Federal rules restrict any use of the information to criminally investigate or prosecute any alcohol or drug abuse patient.[facility] Center[facility] the event this information is protected by the Federal Confidentiality of Alcohol and Drug Abuse Patient Records regulations: The Federal rules restrict any use of the information to criminally investigate or prosecute any alcohol or drug abuse patient.[facility] the event this information is protected by the Federal Confidentiality of Alcohol and Drug Abuse Patient Records regulations: The Federal rules restrict any use of the information to criminally investigate or prosecute any alcohol or drug abuse patient.[facility] the event this information is protected by the Federal Confidentiality of Alcohol and Drug Abuse Patient Records regulations: The Federal rules restrict any use of the information to criminally investigate or prosecute any alcohol or drug abuse patient.[facility] the event this information is protected by the Federal Confidentiality of Alcohol and Drug Abuse Patient Records regulations: The Federal rules restrict any use of the information to criminally investigate or prosecute any alcohol or drug abuse patient.[facility] the event this information is protected by the Federal Confidentiality of Alcohol and Drug Abuse Patient Records regulations: The Federal rules restrict any use of the information to criminally investigate or prosecute any alcohol or drug abuse patient.[facility] Center[facility] the event this information is protected by the Federal Confidentiality of Alcohol and Drug Abuse Patient Records regulations: The Federal rules restrict any use of the information to criminally investigate or prosecute any alcohol or drug abuse patient.[facility] Center[facility] the event this information is protected by the Federal Confidentiality of Alcohol and Drug Abuse Patient Records regulations: The Federal rules restrict any use of the information to criminally investigate or prosecute any alcohol or drug abuse patient.[facility] Center[facility] the event this information is protected by the Federal Confidentiality of Alcohol and Drug Abuse Patient Records regulations: The Federal rules restrict any use of the information to criminally investigate or prosecute any alcohol or drug abuse patient.[facility] Care Teams (unrecognized sec tion and content) Clinical Appeals Reviewer Relationship Specialty Start Date End Date Jimbo Dash MD PCP - General Family Practice 02/13/16 Jimbo Dash MD Family Practice 02/13/16 Clinical Appeals Reviewer Relationship Specialty Start Date End Date Jimbo Dash MD PCP - General Family Practice 02/13/16 Jimbo Dash MD Family Practice 02/13/16 Clinical Appeals Reviewer Relationship Specialty Start Date End Date Jimbo Dash MD PCP - General Family Practice 02/13/16 Jimbo Dash MD Family Practice 02/13/16 Clinical Appeals Reviewer Relationship Specialty Start Date End Date Jimbo Dash MD PCP - General Family Practice 02/13/16 Jimbo Dash MD Family Practice 02/13/16 Clinical Appeals Reviewer Relationship Specialty Start Date End Date Jimbo Dash MD PCP - General Family Medicine 02/13/16 Jimbo Dash MD Family Medicine 02/13/16 Clinical Appeals Reviewer Relationship Specialty Start Date End Date Jimbo [...] Active Dr. Reji Goldberg MD Active Martine KU PA Attending Provider Active Team Status: Active [...] Dash MD Primary Care Provider Active Martine KU PA Attending Provider, Referrin g Provider Active Team Status: Inactive Member Role Status Dates Dr. Jimbo Dash MD Primary Care Provider, Referring Provider Active Martine KU PA Attending Provider Active Team Status: Active Member Role Status Dates Dr. Jimbo Dash MD Primary Care Provider Active Dr. Reji Goldberg MD Attending Provider Active Martine KU PA Referring Provider Active Team Status: Inactive Member Role Status Dates Dr. Jimbo Dash MD Primary Care Provi awais, Attending Provider, Referring Provider Active Team Status: Inactive Member Role Status Dates Dr. Jimbo Dash MD Primary Care Provider, Referring Provider Active Martine Nguyen PA Attending Provider Active Team Status: Active Member Role Status Dates Dr. Jimbo Dash MD Primary Care Provider Active Dr. Reji Goldberg MD Referring Provider, Other Provide r Active Martine Nguyen , PA Attending Provider Active Team Status: Inactive Member Role Status Dates Dr. Jimbo Dash MD Primary Care Provider Active KINGS Blackmon Attending Provider, Referring Provider Active Team Status: Inactive Member Role Status Dates Dr. Jimbo Dash MD Primary Care Provider Active Dr. Reji Goldberg MD Attending Provider, Referring Pro vider Active Team Status: Active Member Role Status Dates Dr. Jimbo Dash MD Primary Care Provider Active Dr. Reji Goldberg MD Attending Provider, Referring Provider, Other Provider Active Martine Nguyen , PA Active Team Status: Inactive Member Role Status Dates Dr. Jimbo Dash MD Primary Care Provider, Attending Provider Active Team Status: Active Member Role Status Dates Dr. Jimbo Dash MD Primary Care Provider Active Health Risk Assessment Attending Provider, Referring P zahra Active Team Status: Inactive Member Role Status Dates Dr. Jimbo Dash MD Primary Care Provider Active KINGS Sidhu Attending Provider, Referring Provid er Active Team Status: Active Member Role Status Dates Dr. Jimbo Dash MD Primary Care Provider Active Dr. Reji Goldberg MD Attending Provider Active KINGS Sidhu Referring Provider Active Team Status: Inactive Member Role Status Dates Dr. Jimbo Dash MD Primary Care Provider, Referring Provider Active Saeid KU PA Attending Provider Active Team Status: Active [...] Provider Active S tart: July 14, 2024 Clinical Appeals Reviewer Relationship Specialty Start Date End Date Jimbo Dash MD PCP - General Family Medicine 02/13/16 Jimbo Dash MD Family Medicine 02/13/16 Clinical Appeals Reviewer Relationship Specialty Start Date End Date Jimbo Dash MD PCP - General Family Medicine 02/13/16 Jimbo Dash MD Family Medicine 02/13/16 Clinical Appeals Reviewer Relationship Specialty Start Date End Date Jimbo Dash MD PCP - General Family Medicine 02/13/16 Jimbo Dash MD Family Medicine 02/13/16 Clinical Appeals Reviewer Relationship Specialty Start Date End Date Jimbo Dash MD PCP - General Family Medicine 02/13/16 Jimbo Dash MD Family Medicine 02/13/16 Clinical Appeals Reviewer Relationship Specialty Start Date End Date Jimbo [...] 2024 PETEY MILLER Attending Provider Active Start: [facility] 2024 End: October 13, 2024 PETEY MILLER Referring Provider Active Start: [facility] 2024 End: October 13, 2024 Clinical Appeals Reviewer Relationship Specialty Start Date End Date Jimbo Dash MD PCP - General Family Medicine 02/13/16 Jimbo Dash MD Family Medicine 02/13/16 Clinical Appeals Reviewer Relationship Specialty Start Date End Date Jimbo Dash MD PCP - General Family Medicine 02/13/16 Jimbo Dash MD Family Medicine 02/13/16 Clinical Appeals Reviewer Relationship Specialty Start Date End Date Jimbo Dash MD PCP - General Family Medicine 02/13/16 Jimbo Dash MD Family Medicine 02/13/16 Clinical Appeals Reviewer Relationship Specialty Start Date End Date Jimbo Dash MD PCP - General Family Medicine 02/13/16 Jimbo Dash MD Family Medicine 02/13/16 Clinical Appeals Reviewer Relationship Specialty Start Date End Date Jimbo Dash MD PCP - General Family Medicine 02/13/16 Jimbo Dash MD Family Medicine 02/13/16 Team Status: Active Member Role/Relationship Status Dates Dr. Jimbo Dash MD Primary Care Provider Active Team Status: Inactive Member Role/Relationship Status Dates Dr. Jimbo Dash MD Primary Care Provider Active Start: August 17, 2024 End: August 17, 2024 Dr. Jimbo Dash MD Attending Provider Active Start: August 17, 2024 End: August 17, 2024 Dr. Jimbo Dash MD Referring Provider Active Start: August 17, 2024 End: August 17, 2024 Team Status: Inactive Member Role/Relationship Status Dates Dr. Jimbo Dash MD Primary Care Provider Active Start: August 17, 2024 End: August 17, 2024 Dr. Jimbo Dash MD Referring Provider Active Start: August 17, 2024 End: August 17, 2024 Dr. Reji Goldberg MD Attending Provider Active S tart: August 17, 2024 End: August 17, 2024 Team Status: Inactive Member Role/Relationship Status Dates Dr. Jimbo Dash MD Primary Care Provider Active Start: October 13, 2024 End: October 13, 2024 PETEY MILLER Attending Provider Active Start: 2024 End: October 13, 2024 PETEY MILLER Referring Provider Active Start: 2024 End: October 13, 2024 Team Status: Inactive Member Role/Relationship Status Dates Dr. Jimbo Dash MD Primary Care Provider Active Start: October 27, 2024 Dr. April Nicole MD Attending Provider Active Start: October 27, 2024 Team Status: Inactive Member Role/Relationship Status Dates Dr. Jimbo Dash MD Primary Care Provider Active Start: December 11, 2024 End: December 11, 2024 Dr. Deep Lion MD Emergency Provider Active Sta rt: December 11, 2024 End: December 11, 2024 Clinical Appeals Reviewer Relationship Specialty Start Date End Date Jibmo Dash MD PCP - General Family Medicine 02/13/16 Jimbo Dash MD Family Medicine 02/13/16 Clinical Appeals Reviewer Relationship Specialty Start Date End Date Jimbo [...] Referred By Santa hernandez Referred To Contact Urology Diagnoses Bladder stone Procedures CONSULT TO UROLOGY OFFICE/OUTPATIENT [facility] 60 MINUTES Ric Taylor APRN.ANESTHESIOLOGY CRNA [address] [place] [address] Phone: tel: fax: Referral ID Status Reason Start Date Expiration Date V isits Requested Visits Authorized [id number] Closed PCP Requested Referral 09/08/2024 09/08/2025 1 1 Reason Comments Patient Update Reason Comments Cystoscopy-1 Bladder stone mesh e rosion Specialty Diagnoses / Procedures Referred By Santa hernandez Referred To Contact Urology / UROLOGY Diagnoses Calculus in bladder Cystoscopy Procedures CYSTOURETHROSCOPY [place]át[place] [address] [place] [id number] Phone: tel: fax: Fátima Santillan MD [address] [place] [address] Phone: tel: fax: Referral ID Status Reason Start Date Expiration Date Visits Re quested Visits Authorized [id number] Closed 10/21/2024 04/28/2025 1 1 Reason Comments left 2nd toe pain X 1 day-hit toe on c ouch last night Reason Comments Leg Pain Patient has a confir med DVT in the left leg, denies chest pain or SOB Specialty Diagnoses / Procedures Referred By Santa t Referred To Contact Diagnoses Acute deep vein thrombosis (DVT) of proximal vein of left lower extremity (HCC) Left leg swelling Procedures .. Edy Gray, DO [address] [place] [address] Phone: tel: fax: [facility] EMERGENCY DEPT [address] [place] [address] Phone: tel: fax: Referral ID Status Reason Start Date Expiration Date Visits Re quested Visits Authorized [id number] 1 1 Goals (unrecognized section and content) Goals may [...] ized section and content) DATE CREATED AUTHOR 12/17/2024 [facility] DATE CREATED AUTHOR AUTHOR'S ORGANIZ ATION 12/22/2024 [facility] DATE CREATED AUTHOR AUTHOR'S ORGANIZ ATION 12/24/2024 [facility] DATE CREATED AUTHOR AUTHOR'S ORGANIZ ATION 12/25/2024 [facility] Scheduled Active and Recently Administ ered Medications (unrecognized section and content) Medication Order 12/15/2024 12/16/2024 12/17/2024 apixaban (Eliquis) tablet 10 mg (CANCELED)(Linked Group 1) 10 mg, Oral, 2 times daily, First dose on Sat12/14/24 at 2230, For 7 days, Anticoagulant 0855 (Given - Provider: Sarina Davalos, RN) apixaban (Eliquis) tablet 5 mg 5 mg, Oral, 2 times daily, First dose on Sat12/17/24 at 1200, Anticoagulant 1233 (Given - Provider: Veronika Short, CHERI)2100 (Canceled Entry - Provider: Automatic Discharge Provider - Comment: Automatically canceled at discontinue of medication order) atorvastatin (Lipitor) tablet 40 mg 40 mg, Oral, Nightly, First dose on Sat12/15/24 at 2100 1914 (Given - Provider: Christie Davis RN) 1134 (JUN Hold - Provider: Automatic Transfer Provider - Reason: Patient not available)1358 (MAR Unhold - Provider: Automatic Transfer Provider)2033 (Given - Provider: Fabby Uribe RN) 2100 (Canceled Entry - Provider: Automatic Discharge Provider - Comment: Automatically canceled at discontinue of medication order) dicyclomine (Bentyl) capsule 20 mg 20 mg, Oral, Daily, First dose on Sat12/15/24 at 1900 1914 (Given - Provider: Christie Davis RN) 0825 (Given - Provider: Veronika Short, CHERI)1134 (JUN Hold - Provider: Automatic Transfer Provider - Reason: Patient not available)1358 (MAR Unhold - Provider: Automatic Transfer Provider) 0910 (Given - Provider: Veronika Short, CHERI) heparin injection 5,264 Units (COMPLETED) 5,264 Units (80 Units/kg 65.8 kg), IntraVENous, Once, On Sat12/15/24 at 1520, For 1 dose, Initial one time bolus 1555 (Given - Provider: Sara Joe, CHERI) lactated ringers bolus 500 mL (COMPLETED) 500 mL, IntraVENous, at 500 mL/hr, Administer over 1 Hours, Once, On Sat12/16/24 at 1800, For 1 dose 1816 (New Bag - Provider: Veronika Short RN)1924 (Stopped - Provider: Fabby Uribe RN) metoprolol tartrate (Lopressor) tablet 50 mg (CANCELED) 50 mg, Oral, 2 times daily, First dose on Sat12/15/24 at 2000, For 2 doses 1914 (Given - Provider: Christie Davis RN) 1022 (Not Given - Provider: Veronika Short RN - Reason: Other - Comment: per CT) pantoprazole (ProtoNix) EC tablet 40 mg 40 mg, Oral, Daily before breakfast, First dose on Sat12/16/24 at 0600, Do not crush, chew, or split. 0515 (Not Given - Provider: Guanako Lieberman Jr., RN - Reason: NPO)1134 (MAR Hold - Provider: Automatic Transfer Provider - Reason: Patient not available)1358 (MAR Unhold - Provider: Automatic Transfer Provider) 0532 (Given - Provider: Fabby Uribe RN) sertraline (Zoloft) tablet 50 mg 50 mg, Oral, 2 times daily, First dose (after last modification) on Sat12/15/24 at 2100 1914 (Given - Provider: Christie Davis RN) 0825 (Given - Provider: Veronika Short RN)1134 (MAR Hold - Provider: Automatic Transfer Provider - Reason: Patient not available)1358 (MAR Unhold - Provider: Automatic Transfer Provider)2033 (Given - Provider: Fabby Uribe RN) 0910 (Given - Provider: Veronika Short RN)2100 (Canceled Entry - Provider: Automatic Discharge Provider - Comment: Automatically canceled at discontinue of medication order) sodium chloride 0.9% (NS) flush 10 mL 10 mL, IntraVENous, Every 12 hours scheduled (2 times per day), First dose on Sat12/15/24 at 0900 0856 (Given - Provider: Sarina Davalos RN)1926 (Not Given - Provider: Guanako Lieberman Jr., RN - Reason: Other - Comment: Heparin infusing) 1022 (Not Given - Provider: Veronika Short RN - Reason: IV Fluids Infusing)1134 (MAR Hold - Provider: Automatic Transfer Provider - Reason: Patient not available)1358 (MAR Unhold - Provider: Automatic Transfer Provider)2109 (Given - Provider: Fabby Uribe RN) 1143 (Not Given - Provider: Veronika Short RN - Reason: IV Fluids Infusing)2100 (Canceled Entry - Provider: Automatic Discharge Provider - Comment: Automatically canceled at discontinue of medication order) Continuous Medication Order 12/15/2024 12/16/2024 12/17/2024 heparin 25,000 units in dextrose 5% 250mL infusion (premix) (CANCELED) 5-30 Units/kg/hr 65.8 kg (3.29-19.74 mL/hr, rounded to 3.3-19.7 mL/hr), IntraVENous, Continuous, Starting on Sat12/15/24 at 1520, HIGH Dose Heparin Weight Based Dosing (VTE/DVT/PE) >>>>Initial dose: 18 units/kg/hr<<<< Subsequent dosing: aPTT < 30 Heparin Full re-bolus Increase infusion by 2 units/kg/hr - notify prescriber; aPTT 30-45.9 Heparin Half re-bolus Increase infusion by 1 unit/kg/hr; aPTT 46-80.9 No bolus No change; aPTT 81-100.9 Hold heparin for 60 min Decrease infusion by 1 unit/kg/hr; aPTT > 100.9 Hold heparin for 60 min Decrease infusion by 2 units/kg/hr - notify prescriber; Obtain a baseline aPTT before starting Heparin Therapy. Draw aPTT 6 hours after initiation of the infusion and 6 hours following any rate or dose change - repeating every 6 hours until two consecutive therapeutic aPTT values are achieved. Once therapeutic, monitor aPTT daily with morning labs. Contact provider for further directions if: a) The patient has reached maximum dose and has not achieved the goal of therapy or b) If this medication is held outside of ordered parameters 1552 (New Bag - Provider: Sara Joe RN)1710 (Rate/Dose Verify - Provider: Rocío Wilson RN)1813 (Rate/Dose Verify - Provider: Rocío Wilson RN - Comment: This RN verified with CHERI Bocanegra.)185 (Rate/Dose Verify - Provider: Christie Davis RN)1924 (Handoff - Provider: Guanako Lieberman Jr., RN)222 (Stopped - Provider: Guanako iLeberman Jr., RN - Comment: see ptt)2321 (Rate/Dose Change - Provider: Guanako Lieberman Jr., RN - Comment: restarted) 0601 (Rate/Dose Verify - Provider: Guanako Lieberman Jr., RN)0717 (Handoff - Provider: Veronika Short RN)1415 (New Bag - Provider: Veronika Short RN)1916 (Handoff - Provider: Fabby Uribe RN) 0718 (Handoff - Provider: Veronika Short, CHERI)1237 (Stopped - Provider: Veronika Short RN - Comment: [Order ends at this time. Document the following action when infusion is complete: Stopped]) PRN Medication Order 12/15/2024 12/16/2024 12/17/2024 acetaminophen (Tylenol) tablet 1,000 mg 1,000 mg, Oral, Every 8 hours PRN, mild pain (1-3), Starting on Sat12/16/24 at 1409, Maximum dose of acetaminophen is 4000 mg from all sources in 24 hours. acetaminophen (Tylenol) tablet 650 mg (CANCELED) 650 mg, Oral, Every 6 hours PRN, headaches, mild pain (1-3), moderate pain (4-6), severe pain (7-10), fever, Starting on Sat12/15/24 at 1927, Maximum dose of acetaminophen is 4000 mg from all sources in 24 hours. 1935 (Given - Provider: Guanako Lieberman Jr., RN) 0825 (Given - Provider: Veronika Short RN)1134 (JUN Hold - Provider: Automatic Transfer Provider - Reason: Patient not available)1358 (JUN Unhold - Provider: Automatic Transfer Provider) heparin injection (CANCELED) As needed, Starting on Sat12/16/24 at 1222, Intraprocedure 1222 (Given - Provider: Charissa Short MD - Comment: MIXED [id number] NACL, LEFT ILIAC VEIN) HYDROmorphone (Dilaudid) injection 0.5 mg (CANCELED) 0.5 mg, IntraVENous, Every 5 min PRN, severe pain (7-10), Starting on Sat12/16/24 at 1311, For 4 doses, Recovery (only), Phase I and Phase II- Initial therapy for severe pain (7-10). Restricted to a 90 minute time frame starting when the patient can verbally state their pain score. If after 2 doses the pain score does not decrease by more than one point, then call the provider. If oral meds are utilized, do not return to initial therapy medications. 1332 (Given - Provider: Kat Gonzalez, CHERI) iopamidol (Isovue-300) 61 % injection (CANCELED) As needed, Starting on Sat12/16/24 at 1227, Intraprocedure 1227 (Given - Provider: Charissa Short MD - Comment: LEFT ILIAC VEIN) iopamidol (Isovue-370) 76 % injection 75 mL (COMPLETED) 75 mL, IntraVENous, IMG once PRN, contrast, Starting on Sat12/16/24 at 0939, For 1 dose 0939 (Given - Provider: Hellen Buchanan) naloxone (Narcan) injection 0.4 mg 0.4 mg, IntraVENous, Every 5 min PRN, opioid reversal, respiratory depression, Starting on Sat12/16/24 at 1602, +++ For RR <10, pinpoint pupils, over sedation for opioid reversal - MUST notify window/distribution clerk provider immediately after first dose, may give IM or SQ if no IV access +++ nitroglycerin (Nitrostat) SL tablet 0.4 mg (COMPLETED)(Linked Group 2) 0.4 mg, SubLINGual, Once PRN, chest pain, see admin instructions, Starting on Sat12/16/24 at 0923, For 1 dose, +++CT Angiogram medication: intra-scan+++ Administer if SBP 90-110 mmHg OR weight <70 kg 0928 (Given - Provider: Kim Hernández RN) ondansetron (Zofran) injection 4 mg(Linked Group 3) 4 mg, IntraVENous, Every 6 hours PRN, nausea, vomiting, Starting on Sat12/15/24 at 0055, 1st Line. Give IV if patient is unable to take orally. If inadequate response within 60 minutes, proceed to next-line agent or contact provider if no further options ordered. 1134 (MAR Hold - Provider: Automatic Transfer Provider - Reason: Patient not available)1358 (JUN Unhold - Provider: Automatic Transfer Provider) ondansetron ODT (Zofran-ODT) disintegrating tablet 4 mg(Linked Group 3) 4 mg, Oral, Every 8 hours PRN, nausea, vomiting, Starting on Sat12/15/24 at 0055, 1st Line. If inadequate response within 60 minutes, proceed to next-line agent or contact provider if no further options ordered. Patient should allow tablet to dissolve on tongue. Do not remove from blister pack until just before administering. 1134 (JUN Hold - Provider: Automatic Transfer Provider - Reason: Patient not available)1358 (JUN Unhold - Provider: Automatic Transfer Provider) oxyCODONE (Roxicodone) immediate release tablet 2.5 mg(Linked Group 4) 2.5 mg, Oral, Every 4 hours PRN, moderate pain (4-6), Starting on Sat12/16/24 at 1601 1606 (See Alternative - Provider: Veronika Short, CHERI) 0146 (See Alternative - Provider: Fabby Uribe, CHERI) oxyCODONE (Roxicodone) immediate release tablet 5 mg(Linked Group 4) 5 mg, Oral, Every 4 hours PRN, severe pain (7-10), Starting on Sat12/16/24 at 1601 1606 (Given - Provider: Veronika Short, RN) 0146 (Given - Provider: Fabby Uribe, RN) polyethylene glycol (PEG) 3350 (Miralax) packet 17 g 17 g, Oral, Daily PRN, constipation, Starting on Sat12/15/24 at 0055, 1st line for treatment of constipation - give scheduled if no bowel movement in past 24 hours. 1134 (JUN Hold - Provider: Automatic Transfer Provider - Reason: Patient not available)1358 (JUN Unhold - Provider: Automatic Transfer Provider) sodium chloride 0.9 % infusion 5-250 mL/hr, IntraVENous, PRN, if patient receiving piggyback infusions and maintenance fluids are not ordered OR KVO fluids to protect IV site / prevent frequent line interruptions/ long duration, Starting on Sat12/15/24 at 0055, For piggyback infusion, administer at same rate as piggyback for a total of 25 mL. Enter 25 mL into dose field and piggyback rate into rate field of order. If piggyback is infusing at a rate less than 100 mL/hr, enter 25 mL into dose field and 100 mL/hr into rate field of order. For KVO fluids, enter rate of 20 mL/hr or less into rate field of order. 1134 (JUN Hold - Provider: Automatic Transfer Provider - Reason: Patient not available)1358 (JUN Unhold - Provider: Automatic Transfer Provider) sodium chloride 0.9% (NS) flush 10 mL 10 mL, IntraVENous, PRN, line care, Starting on Sat12/15/24 at 0055, After every IV line use 1134 (JUN Hold - Provider: Automatic Transfer Provider - Reason: Patient not available)1358 (JUN Unhold - Provider: Automatic Transfer Provider) Linked Groups Order Group 1: apixaban (Eliquis) tablet 10 mg (CANCELED)Jump to med 10 mg, Oral, 2 times daily, First dose on Sat12/14/24 at 2230, For 7 days, Anticoagulant Followed by apixaban (Eliquis) tablet 5 mg (CANCELED) 5 mg, Oral, 2 times daily, First dose on Sat12/21/24 at 2100, Anticoagulant Group 2: nitroglycerin (Nitrostat) SL tablet 0.4 mg (COMPLETED)Jump to med 0.4 mg, SubLINGual, Once PRN, chest pain, see admin instructions, Starting on Sat12/16/24 at 0923, For 1 dose, +++CT Angiogram medication: intra-scan+++ Administer if SBP 90-110 mmHg OR weight <70 kg Or nitroglycerin (Nitrostat) SL tablet 0.8 mg (COMPLETED) 0.8 mg, SubLINGual, Once PRN, chest pain, see admin instructions, Starting on Sat12/16/24 at 0923, For 1 dose, +++CT Angiogram medication: intra-scan+++ Administer if SBP >110 mmHg AND weight > or = 70 kg Group 3: ondansetron ODT (Zofran-ODT) disintegrating tablet 4 mgJump to med 4 mg, Oral, Every 8 hours PRN, nausea, vomiting, Starting on Sat12/15/24 at 0055, 1st Line. If inadequate response within 60 minutes, proceed to next-line agent or contact provider if no further options ordered. Patient should allow tablet to dissolve on tongue. Do not remove from blister pack until just before administering. Or ondansetron (Zofran) injection 4 mgJump to med 4 mg, IntraVENous, Every 6 hours PRN, nausea, vomiting, Starting on Sat12/15/24 at 0055, 1st Line. Give IV if patient is unable to take orally. If inadequate response within 60 minutes, proceed to next-line agent or contact provider if no further options ordered. Group 4: oxyCODONE (Roxicodone) immediate release tablet 2.5 mgJump to med 2.5 mg, Oral, Every 4 hours PRN, moderate pain (4-6), Starting on Sat12/16/24 at 1601 Or oxyCODONE (Roxicodone) immediate release tablet 5 mgJump to med 5 mg, Oral, Every 4 hours PRN, severe pain (7-10), Starting on Sat12/16/24 at 1601 FOR RECORDS PERTAINING TO PATIENTS WHO ARE [...] BE BASED ON THE PRIMARY CLINICAL RECORDS. [facility]. provides no warranty or guarantee of the accuracy or completeness of information in this document.
[2024-12-28 15:36] LABS: Hematocrit 32.9 % (37-47); Hemoglobin 10.6 g/dL (12.0-15.0); Immature Granulocytes Count 0.020 X10^3/uL (0.0-0.0); Mean Corp Hgb Conc 32.2 g/dL (32-36); Mean Corpuscular Volume 91.4 fL (81-99); Mean Platelet Vol. 9.1 fl (6.2-12.0); NRBC Flagged by Analyzer 0 % (0-5); Platelet Count 356 K/mm3 (150-450); RBC Distribution Width CV 13.5 % (11.6-14.6); RBC Distribution Width SD 44.7 fl (35.1-43.9); Red Blood Count 3.60 M/mm3 (4.2-5.4); White Blood Count 4.9 K/mm3 (4.4-11.0)
[2024-12-28 15:52] LABS: Anion Gap 11 (5-15); BUN 16 mg/dL (4-19); BUN/Creat Ratio 18.5 RATIO (10-20); Calcium,Total 9.0 mg/dL (7.6-11.0); Carbon Dioxide 22.6 mmol/L (21.0-32.0); Chloride 108 mmol/L (98-108); Estimated Creatinine Clearance 64.12 ml/min (50-250); Glucose 123 mg/dL (70-99); Potassium 3.9 mmol/L (3.3-5.1)
[2024-12-28 17:00] VITALS: BP 97/60; PULSE 72; RESP 14; TEMP 36.2; O2SAT 95
== END 2024-12-28 17:02 | disposition home or self-care (01) ==
PROVIDERS: Emergency Provider Emergency Medicine; PCP Family Medicine; Visit Provider Emergency Medicine
DX: I82.422 Acute embolism and thrombosis of left iliac vein (principal); I82.412 Acute embolism and thrombosis of left femoral vein; D64.9 Anemia, unspecified; Z79.01 Long term (current) use of anticoagulants; Z79.02 Long term (current) use of antithrombotics/antiplatelets
CPT/HCPCS: 71275; 80048; 85025; 99283; Q9967

== ENCOUNTER → 2024-12-29 | Outpatient (CLI) | payer OTHER, SELFPAY ==
--- NOTE | 2024-12-29 11:12 | VDLE_ITS ---
Reason For Study Reason For Study: LLE PAIN RIGHT LEFT CFV is compressible, spontaneous, phasic, competent GSV @ [facility] is dilated and noncompressible C/W ACUTE and demonstrates normal augmentation. SVT. Procedure Balance of GSV is compressible. This is a venous duplex using B-mode, color flow and DEIV & CFV: DILATED & NONCOMPRESSIBLE C/W ACUTE DVT. spectral Doppler. FV is compressible, spontaneous, phasic, competent Exam performed in department. and demonstrates normal augmentation. A preliminary report was called and/or faxed to Dr. SCHULTZ V is compressible, spontaneous, phasic, competent Ashlyn's office @ 11:30 am. and demonstrates normal augmentation. T/P Trunk is compressible. PTV is compressible. LT PerV is compressible. VL/Venous Duplex US, Unilateral Interpretation Summary Acute deep vein thrombosis noted in the left external iliac vein, common femora l vein, saphenofemoral junction. Ordering Physician: Deep Lion Referring Physician: Jimbo Dash Performed By: Pattie Giang, CORKY, RVT
== END | disposition home or self-care (01) ==
LOC: CVS 11:09
PROVIDERS: PCP Family Medicine; Referring Provider Emergency Medicine; Visit Provider Emergency Medicine
DX: I82.412 Acute embolism and thrombosis of left femoral vein (principal); I82.422 Acute embolism and thrombosis of left iliac vein; M79.662 Pain in left lower leg
CPT/HCPCS: 93971

== ENCOUNTER 2025-01-04 16:12 | Observation (INO) | payer OTHER, SELFPAY ==
[2025-01-04 07:15] VITALS: BMI 24.1
[2025-01-04 16:12] VITALS: BMI 24.7
--- NOTE | 2025-01-04 16:22 | PCM.HP.STD ---
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 Initially thrombosed several weeks prior and underwent thrombectomy at [facility]. She states that her discomfort resolved but leg edema did not. She was discharged on Eliquis loading. A few days after discharge she drove to [place] and shortly after experienced worsening pain/edema. Imaging there revealed recurrence of her thrombus. She was briefly placed on heparin and thrombectomy considered though ultimately they discharged her for care here in [place]. Leg edema has persisted since that time, some days better than others. No CP/SOB. She is currently on lovenox at home due to continued failure to resolve symptoms on Eliquis. Of note, the surgeon in [place] reported significant reduction in thrombus extent at time of venogram. Epistaxis while on Eliquis, resolved now that on lovenox. No hematuria/melena/melena/hemetemesis. Noted to have anemia on recent lab work in ED. [facility] Medical History GERD (gastroesophageal reflux disease) Loss of hearing Wears glasses Arthritis Bladder disease DVT (deep venous thrombosis) Restless legs Difficulty swallowing Gastric reflux Non-smoker Leg cramps History of pain when walking History of echocardiogram History of stress test Anxiety Anemia Home Medications ?Medication ?Instructions ?Recorded ?Last Taken ?Type sertraline 100 mg tablet 50 mg PO BID anxiety 03/30/14 03/13/24 History Cholecalciferol (Vitamin D3) 5,000 unit PO DAILY supplement 03/07/20 03/13/24 History [Vitamin D3] cyanocobalamin (vitamin B-12) 3,000 mcg PO DAILY supplement 03/07/20 03/13/24 History 5,000 mcg disintegrating tablet omeprazole 20 mg tablet,delayed 20 mg PO QHS reflux 03/07/20 03/12/24 History release pitavastatin calcium 2 mg tablet 4 mg PO QPM cholesterol 02/08/22 03/12/24 History (Livalo) cetirizine 10 mg capsule (Zyrtec) 10 mg PO DAILY allergies 04/12/22 03/13/24 History dicyclomine 20 mg tablet 20 mg PO BID IBS 06/06/23 11/15/24 History alendronate 70 mg tablet 70 mg PO QWEEK bones 11/28/23 Unknown History tizanidine 2 mg tablet 2 mg PO QHS PRN muscle spasticity 12/10/23 Unknown Rx #14 tabs clopidogrel 75 mg tablet (Plavix) 75 mg PO DAILY #90 tabs 10/27/24 Unknown Rx enoxaparin 60 mg/0.6 mL 60 mg (0.6 mL) subcut Q12H 30 days 12/28/24 Unknown Rx subcutaneous syringe (Lovenox) #36 mL estradiol 0.01% (0.1 mg/gram) 1 vaginal .COMPLEX 12/28/24 Unknown History vaginal cream Allergy/AdvReac Type Severity Reaction Status Date / Time hydrocodone (From Vicodin) Allergy Nausea/Vom/ Verified 12/28/24 15:07 Diarrhea Family History Mother Colon cancer Cancer ovary Diabetes Father Hypertension Surgical History Hx of bladder repair surgery Hx of cystoscopy Hx of shoulder surgery Hx of colonoscopy S/P rotator cuff repair S/P bunionectomy S/p bilateral carpal tunnel release S/P cholecystectomy S/P hysterectomy Social History household members: spouse housing: house current occupational status: employed Smoking Status: Never smoker alcohol intake: never ROS Constitutional Constitutional: Denies chills, fever(s), frequent falls, lethargy or weakness Eyes Eyes: Denies blind spots, change in vision or loss of vision ENT HEENT: Denies bleeding gums, hoarseness or sore throat Cardiovascular Cardiovascular: Reports leg edema; Denies abdominal pain, bluish discoloration of hand/feet, chest pain with activity, claudication, cold extremities, cyanosis, dyspnea on exertion, erythema on extremities, irregular heart rhythm, leg ulcers, numbness in extremities or weakness in extremities Respiratory/Chest Respiratory/Chest: Denies cough, excessive phlegm production, shortness of breath at rest, shortness of breath with exertion or wheezing Gastrointestinal Gastrointestinal: Denies anorexia, change in stool character, constipation, diarrhea, melena or rectal bleeding Genitourinary Genitourinary: Denies dysuria or hematuria Musculoskeletal Musculoskeletal: Denies abnormal gait Integumentary Integumentary: Denies erythema, non-healing lesions or wounds Neurologic Neurologic: Denies abnormal speech, focal weakness, headache(s), loss of vision, numbness, paresthesias or sensory deficit Hematologic/Lymphatic Hematologic/Lymphatic: Denies easy bleeding, easy bruising or lymphadenopathy Vital Signs Vital Signs Vital Signs: Weight Weight: 144 lb Body Mass Index (BMI) 24.7 Physical Exam Const alert, oriented x3, no apparent distress and healthy appearing General Appearance: cooperative; Negative for combative or lethargic Orientation / Consciousness: awake Exam Limitations: no limitations HEENT Head and Scalp: normocephalic and atraumatic Eyes EOMs intact bilaterally General Eye: normal appearance of both eyes Neck full ROM General: trachea midline Resp normal respiratory effort and no use of accessory muscles Effort and Inspection: Negative for labored, stridor or audible wheezes Cardio regular rate and regular rhythm Peripheral Pulses: brachial pulses present, radial pulses present, popliteal pulses present, posterior tibial pulses present and dorsalis pedis pulses present Back/Spine Cervical Spine: cervical ROM normal Extremity full ROM, normal capillary refill and no clubbing, cyanosis or edema Skin no rashes or lesions noted and no wounds Neuro oriented x3, CN's II-XII intact bilaterally, no focal motor deficits and no sensory deficits noted Psych thought process normal, cooperative, affect normal, speech normal and activity/motor behavior normal Assessment & Plan Assessment/Plan (1) DVT (deep venous thrombosis): QUALIFIERS: DVT location: lower extremity Affected thrombotic vein of extremity: iliac Chronicity: acute Laterality: left Qualified Code(s): I82.422 - Acute embolism and thrombosis of left iliac vein PLAN: -most recent duplex with thrombus in common femoral/external iliac vein -heparin drip -npo at midnight -venogram with thrombectomy/angioplasty tomorrow -cbc today/AM, no overt bleeding concerns to explain anemia; will address if needed
[2025-01-04 17:49] LABS: Prothrombin Time (Protime)PT. 12.9 SECONDS (11.7-14.9)
[2025-01-04 17:50] LABS: Hematocrit 33.3 % (37-47); Hemoglobin 10.7 g/dL (12.0-15.0); Immature Granulocytes Count 0.010 X10^3/uL (0.0-0.0); Mean Corp Hgb Conc 32.1 g/dL (32-36); Mean Corpuscular Volume 91.7 fL (81-99); Mean Platelet Vol. 10.0 fl (6.2-12.0); NRBC Flagged by Analyzer 0 % (0-5); Partial Thromboplast Time 33.2 Seconds (24.1-36.2); Platelet Count 268 K/mm3 (150-450); RBC Distribution Width CV 13.4 % (11.6-14.6); RBC Distribution Width SD 45.0 fl (35.1-43.9); Red Blood Count 3.63 M/mm3 (4.2-5.4); White Blood Count 4.3 K/mm3 (4.4-11.0)
[2025-01-04 18:10] LABS: Anion Gap 11 (5-15); BUN 19 mg/dL (4-19); BUN/Creat Ratio 15.3 RATIO (10-20); Calcium,Total 9.3 mg/dL (7.6-11.0); Carbon Dioxide 25.1 mmol/L (21.0-32.0); Chloride 105 mmol/L (98-108); Estimated Creatinine Clearance 41.51 ml/min (50-250); Glucose 87 mg/dL (70-99); Potassium 4.3 mmol/L (3.3-5.1)
[2025-01-04] MEDS: HEPARIN/D5w 25,000 UNITS 25,000 UNITS/250 ML IV.SOLN. 9.8 UNITS CONT INF (18:45)
[2025-01-04 20:05] VITALS: BP 109/67; PULSE 84; RESP 18; TEMP 36.6; O2SAT 92
[2025-01-04 22:43] VITALS: BP 118/64; PULSE 73; RESP 18; TEMP 36.2; O2SAT 97
[2025-01-04] MEDS: 0.9% Normal Saline (1000mL) 1,000 ML 15 ML IV (22:52)
[2025-01-05] VITALS (18 sets, daily range): BP systolic 90–127; BP diastolic 57–74; PULSE 69–86; RESP 16–18; TEMP 36.4–36.9; O2SAT 93–100
[2025-01-05 01:10] LABS: Partial Thromboplast Time 77.5 Seconds (24.1-36.2)
[2025-01-05 08:06] LABS: Hematocrit 33.4 % (37-47); Hemoglobin 10.6 g/dL (12.0-15.0); Immature Granulocytes Count 0.020 X10^3/uL (0.0-0.0); Mean Corp Hgb Conc 31.7 g/dL (32-36); Mean Corpuscular Volume 92.0 fL (81-99); Mean Platelet Vol. 9.3 fl (6.2-12.0); NRBC Flagged by Analyzer 0 % (0-5); Platelet Count 246 K/mm3 (150-450); RBC Distribution Width CV 13.3 % (11.6-14.6); RBC Distribution Width SD 44.4 fl (35.1-43.9); Red Blood Count 3.63 M/mm3 (4.2-5.4); White Blood Count 3.8 K/mm3 (4.4-11.0)
[2025-01-05 08:58] LABS: Anion Gap 10 (5-15); BUN 19 mg/dL (4-19); BUN/Creat Ratio 22.1 RATIO (10-20); Calcium,Total 8.9 mg/dL (7.6-11.0); Carbon Dioxide 23.6 mmol/L (21.0-32.0); Chloride 106 mmol/L (98-108); Estimated Creatinine Clearance 61.54 ml/min (50-250); Glucose 92 mg/dL (70-99); Potassium 4.0 mmol/L (3.3-5.1)
[2025-01-05 08:59] LABS: Partial Thromboplast Time 77.1 Seconds (24.1-36.2)
[2025-01-05] MEDS: 0.9% Saline Lock 10 ML Syringe IV (11:06)
--- NOTE | 2025-01-05 11:48 | PN.SURG_ITS ---
Subjective Subjective Feel a little less edematous. No bleeding overnight. Objective Data Objective Data A&Ox3, NAD RRR Resp non labored trace LLE edema Vital Signs: Vital Signs Temp Pulse Resp BP Pulse Ox O2 Del Method 97.5 F L 75 16 111/62 100 Room Air 01/05/25 09:30 01/05/25 10:00 01/05/25 09:30 01/05/25 09:30 01/05/25 10:00 01/05/25 10:00 Oxygen Delivery Method Room Air Weight: 144 lb Body Mass Index (BMI) 24.7 Intake & Output: Intake and Output for Last 24 Hours 01/03/25 01/04/25 01/05/25 23:59 23:59 23:59 Intake Total 520.75 / 520.75 134.75 / 134.75 Balance 520.75 / 520.75 134.75 / 134.75 Lab / Micro Data 01/05/25 07:48 01/05/25 07:48 Labs: Laboratory Results - last 24 hr 01/04/25 16:36: WBC 4.3 L, RBC 3.63 L, Hgb 10.7 L, Hct 33.3 L, MCV 91.7, MCH 29.5, MCHC 32.1, RDW Std Deviation 45.0 H, RDW Coeff of Horacio 13.4, Plt Count 268, MPV 10.0, Immature Gran % (Auto) 0.200, Neut % (Auto) 61.4, Lymph % (Auto) 23.6, Turner % (Auto) 8.1, Eos % (Auto) 6.2 H, Baso % (Auto) 0.5, Absolute Neuts (auto) 2.7, Absolute Lymphs (auto) 1.02, Nucleated RBC % 0, PT 12.9, INR 1.0, APTT 33.2, Sodium 141, Potassium 4.3, Chloride 105, Carbon Dioxide 25.1, Anion Gap 11, BUN 19, Creatinine 1.26 H, Estim Creat Clear Calc 41.51 L, Est GFR (MDRD) Non-Af 49 L, BUN/Creatinine Ratio 15.3, Glucose 87, Calcium 9.3 01/05/25 00:50: APTT 77.5 H 01/05/25 07:48: WBC 3.8 L, RBC 3.63 L, Hgb 10.6 L, Hct 33.4 L, MCV 92.0, MCH 29.2, MCHC 31.7 L, RDW Std Deviation 44.4 H, RDW Coeff of Horacio 13.3, Plt Count 246, MPV 9.3, Immature Gran % (Auto) 0.500, Neut % (Auto) 49.9, Lymph % (Auto) 30.5, Turner % (Auto) 8.4, Eos % (Auto) 9.9 H, Baso % (Auto) 0.8, Absolute Neuts (auto) 1.9 L, Absolute Lymphs (auto) 1.17, Nucleated RBC % 0, APTT 77.1 H, Sodium 139, Potassium 4.0, Chloride 106, Carbon Dioxide 23.6, Anion Gap 10, BUN 19, Creatinine 0.85, Estim Creat Clear Calc 61.54, Est GFR (MDRD) Non-Af 79, B UN/Creatinine Ratio 22.1 H, Glucose 92, Calcium 8.9 Assessment & Plan Assessment/Plan (1) DVT (deep venous thrombosis): QUALIFIERS: DVT location: lower extremity Affected thrombotic vein of extremity: iliac Chronicity: acute Laterality: left Qualified Code(s): I82.422 - Acute embolism and thrombosis of left iliac vein PLAN: -venogram, thrombectomy
[2025-01-05 14:05] LABS: ACT Activated Clotting Time 187 sec (74-137)
[2025-01-05] MEDS: 0.9% Normal Saline (1000mL) 1,000 ML 200 ML IV (14:15)
--- NOTE | 2025-01-05 14:56 | OP.PCM_ITS ---
Operative Report (Standard) Operative Information Date of Procedure: 01/05/25 Pre-Operative Diagnosis: Deep venous thrombosis of the left iliac and femoral veins Occluded left iliac vein stent Post-Operative Diagnosis: Same Surgery/Procedure Performed: Venogram inferior vena cava and bilateral lower extremities. 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 She initially presented several weeks prior with recurrence of her left lower extremity DVT and had a thrombectomy performed at outside facility. She had transient improvement in her symptoms with return of pain and swelling while on a trip out of state. Imaging at that time revealed recurrence of her deep vein thrombosis and she presents now for repeat efforts at thrombectomy. Description of procedure: Upon obtaining informed consent and verification correct patient procedure site the patient taken caliber she was positioned prepped and draped in usual sterile fashion. Timeout was performed and consultation ministered Versed and fentanyl. Skin overlying the left popliteal vein was anesthetized 1% lidocaine the vessel accessed under ultrasound guidance with a micropuncture needle wire. This then exchanged for a micropuncture sheath routine injection left lower extremity venogram performed revealing satisfactory positioning no extravasation of dissection. There was sluggish contrast transit but no evidence of thrombus throughout the popliteal and femoral vein. Outflow imaging revealed total occlusion of the proximal common femoral vein and external iliac vein with a significant cross pelvis collaterals emptying into the contralateral iliac system. Through the micropuncture sheath a Bentson wire advanced the micropuncture of the change for an 8 [place] sheath. Through the 8 [place] sheath a angled quick cross catheter was advanced and the Bentson exchanged for a glide advantage wire. Utilizing this we able to traverse the occluded segment entering into the iliac vein and ultimately traversing into the vena cava. The catheter is withdrawn and intravascular ultrasound probe advanced and recorded pullback performed of the IVC, left common iliac vein, left external iliac vein, left common femoral vein, left femoral vein. This revealed acute and chronic appearing thrombus in the common femoral and external iliac veins as well as within the previously placed stents. The wire traversed within the true lumen of the stent with no evidence of traversing any stent struts. There is significant compression of the superior aspect of the stent which likely contributed to her most recent thrombotic event. Given the location of the stent compression it was felt that bilateral simultaneous angioplasty would be required so skin overlying the right common femoral vein was anesthetized with 1% lidocaine the vessel accessed under ultrasound guidance with micropuncture needle wire. This then exchanged for a micropuncture sheath through which injection right lower extremity venogram was performed revealing satisfactory positioning of extravasation or dissection. This also revealed normal contrast transit through normal caliber popliteal and femoral vein with no evidence of thrombus. There was normal outflow via the common femoral vein, external vein, common iliac vein. Micropuncture sheath then exchanged for a 10 [place] sheath through which a [employer] wire was advanced traversing the iliac vein stent into the vena cava. The intravascular ultrasound probe was then advanced and recorded pullback performed of the IVC, right common iliac vein, right external neck vein. This confirmed position within the true lumen of the stent with no evidence of any significant in-stent stenosis or thrombus. The patient was then heparinized allowed to circulate for 3 minutes with subsequent heparin dosing based on ACT results. The left popliteal 8 [place] sheath then exchanged for a 16 [place] sheath advanced under fluoroscopic guidance to the superior aspect of the femoral vein. Next the penumbra aspiration thrombectomy device was brought in the field prep for manufactures instructions. Given the compression of the superior aspect of the stent it was felt that pre-balloon at this location was necessary so a 10 mm Bard conquest balloon was advanced in position inflated to nominal for 1 minute then deflated withdrawn. The stent showed much improved expansion at this location. It was then advanced into position to gauge for multiple passes throughout the common femoral vein, external vein, common iliac vein. Once we had significant signal from the device that we had flow lumen repeat venography was performed which revealed some flow lumen but with significant mural thrombus remaining. Further passes were performed and repeat imaging showed improvement but not total resolution. The intravascular ultrasound probe was then advanced and recorded pullback performed of the treatment zone which revealed some residual acute thrombus within a majority chronic appearing thrombus within the stent and inferior to it. Given the appearance on the intravascular ultrasound it was felt that the balloon angioplasty of this segment would be of benefit both to potentially loosen any retained or acute thrombus or compress any chronic thrombus. Unable to protect contralateral stent a 16 mm Bard Bascom balloon was advanced and positioned at the superior aspect of the right iliac vein stent. An 18 mm organized balloon was advanced via the left access sheath and positioned at the superior aspect of the left iliac stent. These were then inflated to nominal simultaneously for multiple inflations at the superior aspect of the stents. Further inferior to the left angioplasty was performed in isolation throughout the entirety of the stented segment and down to the femoral head. Repeat venogram revealed what appeared to be significant proven in-stent lumen however inferior to the stent with there is now total occlusion likely due to the intended result of agitating the thrombus at these locations. The penumbra device was then readvanced and further aspiration performed. Repeat venogram revealed satisfactory resolution of the thrombus with now brisk contrast transit through the left external and common iliac veins into the vena cava. Intravascular ultrasound was then readvanced and final recorded pullback performed revealed satisfactory result with no significant bulky thrombus that would impede flow. There was some evidence of compression of the right iliac vein stent at the superior aspect from the balloon manipulations so the 16 mm Bascom was then readvanced via the right and inflated to profile and then deflated and withdrawn. Ultrasound evaluation of the right common and external exam revealed satisfactory stent appearance with no compromise of the lumen. Seeing no need for further intervention the wires and catheters were withdrawn. 2-0 silk pursestring was then placed at the access sites and the sheath withdrawn followed by 5 minutes of manual pressure with satisfactory stasis observed. The patient was then returned to the PCU for bedrest and recovery. Surgical Findings: See above Complications Complications: No
[2025-01-05 20:08] LABS: Partial Thromboplast Time > 200.0 Seconds (24.1-36.2)
[2025-01-06] MEDS: HEPARIN/D5w 25,000 UNITS 25,000 UNITS/250 ML IV.SOLN. 7.8 UNITS CONT INF (00:01)
[2025-01-06 00:26] VITALS: PULSE 69
[2025-01-06 03:22] VITALS: PULSE 69
[2025-01-06 03:58] VITALS: BP 106/66; PULSE 94; RESP 16; TEMP 36.8; O2SAT 83
[2025-01-06 04:04] LABS: Hematocrit 28.6 % (37-47); Hemoglobin 9.1 g/dL (12.0-15.0); Mean Corp Hgb Conc 31.8 g/dL (32-36); Mean Corpuscular Volume 92.0 fL (81-99); Mean Platelet Vol. 9.3 fl (6.2-12.0); Platelet Count 220 K/mm3 (150-450); RBC Distribution Width CV 13.3 % (11.6-14.6); RBC Distribution Width SD 44.8 fl (35.1-43.9); Red Blood Count 3.11 M/mm3 (4.2-5.4); White Blood Count 5.1 K/mm3 (4.4-11.0)
[2025-01-06 04:13] LABS: Partial Thromboplast Time 59.3 Seconds (24.1-36.2)
[2025-01-06 04:33] LABS: Anion Gap 9 (5-15); BUN 17 mg/dL (4-19); BUN/Creat Ratio 25.1 RATIO (10-20); Calcium,Total 8.8 mg/dL (7.6-11.0); Carbon Dioxide 22.2 mmol/L (21.0-32.0); Chloride 108 mmol/L (98-108); Estimated Creatinine Clearance 78.07 ml/min (50-250); Glucose 102 mg/dL (70-99); Potassium 4.5 mmol/L (3.3-5.1)
[2025-01-06 07:45] VITALS: BP 98/62; PULSE 71; RESP 16; TEMP 36.9; O2SAT 98
[2025-01-06] MEDS: Cholecalciferol (Vit D3) 125 MCG CAPSULE (5,000 UNITS) PO (08:40)
--- NOTE | 2025-01-06 08:47 | PCM.PN.SRG ---
Subjective Subjective I saw Karolina resting comfortably in bed this morning. She has noted improvement in her lower extremity edema and discomfort. Expected discomfort at the popliteal fossa access sites; no bleeding/drainage. She has been ambulating around the room without any issues, tolerating normal diet, no other concerns. She feels ready to go home. Her Hgb was 9.1 this morning from 10.6 at admission. Objective Data Objective Data Vital Signs: Vital Signs Temp Pulse Resp BP Pulse Ox O2 Del Method 98.5 F 71 16 98/62 98 Room Air 01/06/25 07:45 01/06/25 07:45 01/06/25 07:45 01/06/25 07:45 01/06/25 07:45 01/06/25 07:50 Oxygen Delivery Method Room Air Weight: 144 lb Body Mass Index (BMI) 24.7 Intake & Output: Intake and Output for Last 24 Hours 01/04/25 01/05/25 01/06/25 23:59 23:59 23:59 Intake Total 520.75 / 520.75 1490.00 / 1790.00 450 / 450 Balance 520.75 / 520.75 1490.00 / 1790.00 450 / 450 Lab / Micro Data 01/06/25 03:55 01/06/25 03:55 Labs: Laboratory Results - last 24 hr 01/05/25 07:48: APTT 77.1 H, Sodium 139, Potassium 4.0, Chloride 106, Carbon Dioxide 23.6, Anion Gap 10, BUN 19, Creatinine 0.85, Estim Creat Clear Calc 61.54, Est GFR (MDRD) Non-Af 79, BUN/Creatinine Ratio 22.1 H, Glucose 92, Calcium 8.9 01/05/25 12:09: Activated Clotting Time 187 H 01/05/25 17:55: APTT > 200.0 H* 01/06/25 03:55: WBC 5.1, RBC 3.11 L, Hgb 9.1 L, Hct 28.6 L, MCV 92.0, MCH 29.3, MCHC 31.8 L, RDW Std Deviation 44.8 H, RDW Coeff of Horacio 13.3, Plt Count 220, MPV 9.3, APTT 59.3 H, Sodium 139, Potassium 4.5, Chloride 108, Carbon Dioxide 22.2, Anion Gap 9, BUN 17, Creatinine 0.67 L, Estim Creat Clear Calc 78.07, Est GFR (MDRD) Non-Af 100, BUN/Creatinine Ratio 25.1 H, Glucose 102 H, Calcium 8.8 Physical Exam Const alert, oriented x3 and no apparent distress General Appearance: cooperative and comfortable HEENT normocephalic, hearing grossly normal bilaterally, external ears normal and external nose normal Eyes General Eye: normal appearance of both eyes Neck General: normal visual inspection and trachea midline Resp normal respiratory effort, normal air movement, no retractions and no use of accessory muscles Effort and Inspection: able to speak in complete sentences; Negative for labored, grunting or stridor Cardio regular rate and regular rhythm Extremity Extremity Narrative: Trace LLE edema Bilateral popliteal fossa puncture sites with pressure dressing C/D/I; no palpable or visible hematoma, no ecchymosis, no bleeding or other drainage, no erythema. Peripheral Pulses: Yes dorsalis pedis pulses present Neuro oriented x3, moves all extremities and no focal motor deficits Speech: speech normal Psych mental status grossly normal Appearance: grossly normal Attitude: calm and engaged Activity / Motor Behavior: appropriate eye contact Speech: normal speech Mood & Affect: euthymic mood Assessment & Plan Assessment/Plan (1) Obstruction of iliac vein: (2) DVT (deep venous thrombosis): QUALIFIERS: DVT location: lower extremity Affected thrombotic vein of extremity: iliac Chronicity: acute Laterality: left Qualified Code(s): I82.422 - Acute embolism and thrombosis of left iliac vein PLAN: Plan She is s/p venogram with thrombectomy left common and external iliac veins and angioplasty bilateral common iliac veins, left external iliac vein 01/05/25. LLE edema and discomfort is improved. Bilateral popliteal fossa access sites satisfactory in appearance without hematoma. No other signs/symptoms of active bleeding. Hgb decreased from 10.6 yesterday to 9.1 today which is expected drop from thrombectomy procedure; will monitor and reassess on an outpatient basis. Will transition from heparin drip back to Lovenox today. Plan is to continued Lovenox 60mg SQ BID + Plavix 75mg daily as an outpatient. Plan for follow-up in the office next week for suture removal. Discharge home today. Charges/Coding Visit Charges Inpatient E&M: 62941 Subs Hosp L1
[2025-01-06] MEDS: 0.9% Saline Lock 10 ML Syringe IV (08:50)
--- NOTE | 2025-01-06 09:08 | PCM.DC.SUM ---
Providers Date of Admission: 01/04/25 Primary Care Physician: Dr. Jimbo Dash MD Reason For Visit: Acute embolism and thrombosis of unspecified deep Diagnosis Discharge Diagnosis (1) DVT (deep venous thrombosis): Status: Acute Code(s): I82.409 - Acute embolism and thrombosis of unspecified deep veins of unspecified lower extremity Qualifiers: Affected thrombotic vein of extremity: iliac Chronicity: acute DVT location: lower extremity Laterality: left Qualified Code(s): I82.422 - Acute embolism and thrombosis of left iliac vein Medications at Discharge Home Medications sertraline 100 mg tablet 50 mg PO BID anxiety 03/30/14 Cholecalciferol (Vitamin D3) [Vitamin D3] 5,000 unit PO DAILY supplement 03/07/20 cyanocobalamin (vitamin B-12) 5,000 mcg disintegrating tablet 3,000 mcg PO DAILY supplement 03/07/20 omeprazole 20 mg tablet,delayed release 20 mg PO QHS reflux 03/07/20 pitavastatin calcium 2 mg tablet (Livalo) 4 mg PO QPM cholesterol 02/08/22 cetirizine 10 mg capsule (Zyrtec) 10 mg PO DAILY allergies 04/12/22 dicyclomine 20 mg tablet 20 mg PO BID IBS 10/02/22 tizanidine 2 mg tablet 2 mg PO QHS PRN muscle spasticity #14 tabs 12/10/23 enoxaparin 60 mg/0.6 mL subcutaneous syringe (Lovenox) 60 mg (0.6 mL) subcut Q12H 30 days #36 mL 12/28/24 ferrous sulfate 137 mg (45 mg iron) tablet,extended release (Slow Fe) 137 mg PO DAILY 01/04/25 acetaminophen 325 mg tablet 650 mg (2 x 325 mg) PO Q6H PRN PRN Pain 1-10 Or Fever >100.7 #0 tabs 01/06/25 clopidogrel 75 mg tablet 75 mg PO DAILY #90 tabs 01/06/25 ondansetron HCl 4 mg tablet 4 mg PO BID PRN PRN nausea/vomiting 5 days #10 tabs 01/06/25 oxycodone 5 mg tablet 5 mg PO Q8H PRN PRN Pain Score 4-10 5 days #15 tabs 01/06/25 Hospital Course Summary of Care Provided Hospital Course: Karolina Amaya is a 59 y/o female who was admitted 01/04/25 for heparin bridge prior to venogram with left iliac vein thrombectomy and bilateral iliac vein angioplasty on 01/05/25 after which she was kept overnight for monitoring and heparin bridge back to lovenox today 01/06/25. Hgb with expected drop from surgery, otherwise stable. No signs of bleeding at access sites or otherwise. She has had improvement in LLE edema and pain. She has ambulated without difficulty and is tolerating a normal diet. She is stable for discharge home today with planned outpatient follow-up next week for suture removal. She will continue with Lovenox BID + Plavix daily. Weight / BMI Weight Weight: 144 lb Body Mass Index (BMI) 24.7 ABG / Lab / Microbiology Data 01/06/25 03:55 01/06/25 03:55 Laboratory: Laboratory Results - last 24 hr 01/05/25 12:09: Activated Clotting Time 187 H 01/05/25 17:55: APTT > 200.0 H* 01/06/25 03:55: WBC 5.1, RBC 3.11 L, Hgb 9.1 L, Hct 28.6 L, MCV 92.0, MCH 29.3, MCHC 31.8 L, RDW Std Deviation 44.8 H, RDW Coeff of Horacio 13.3, Plt Count 220, MPV 9.3, APTT 59.3 H, Sodium 139, Potassium 4.5, Chloride 108, Carbon Dioxide 22.2, Anion Gap 9, BUN 17, Creatinine 0.67 L, Estim Creat Clear Calc 78.07, Est GFR (MDRD) Non-Af 100, BUN/Creatinine Ratio 25.1 H, Glucose 102 H, Calcium 8.8 D/C Instructions May shower in (days): 1 Weight Bearing Status: Weight bearing as tolerated Lifting Restrictions: Do not lift greater than 20 pounds for 3 weeks Keep extremity elevated above heart level: Legs (when resting) Call your doctor if your incision/area has: Continuous Slow Oozing, Sudden Increased Bleeding, Increased Pain/ Swelling and Foul Smelling Discharge Call your doctor if you observe: Fever of 101 or Higher and Uncontrolled pain Suture Line Care: Avoid Pulling/Pushing Remove Dressing in: 1 day (OK to leave open to air or re-cover with bandaid if more comfortable; keep clean and dry, do not submerge ) DC O2, CPAP, BIPAP Needs Home O2 Discharge instructions: No Additional Instructions: - You may remove the bandages behind both knees tomorrow; as long as you have no oozing/drainage you may leave these sites open to air. You have a follow-up appointment scheduled in the office 01/14 and the sutures will be removed at that time. - You may shower tomorrow morning; it is OK for soap/water to rinse over the suture site, pat gently to dry. No baths/swimming or otherwise submerging the sites. - Continue Lovenox 60mg subcutaneously every 12 hours for now. Continue Plavix 75mg daily. - I have sent oxycodone 5mg tablet to be taken by mouth every 8 hours as needed for pain; you may use this in addition to Tylenol. I have also sent a course of Zofran for nausea. - We will plan to recheck your hemoglobin next week to continue to monitor your anemia. - Please call the office at [phone] with any questions/concerns. Please Follow Up With: Martine Power PA When: 01/14/25 Meaningful Use Info Meaningful Use Meaningful Use Diagnoses (Choose all that apply): VTE VTE Anticoag overlap given w/in hospital stay or rx'd at dc?: Yes Pt receive overlap for 5 days?: Yes Discharge Plan Admission Admit Date/Time: 01/04/25 16:12 Attending Provider: Reji Goldberg Primary Care Provider: Jimbo Dash Instructions Additional Instructions / Restrictions: - You may remove the bandages behind both knees tomorrow; as long as you have no oozing/drainage you may leave these sites open to air. You have a follow-up appointment scheduled in the office 01/14 and the sutures will be removed at that time. - You may shower tomorrow morning; it is OK for soap/water to rinse over the suture site, pat gently to dry. No baths/swimming or otherwise submerging the sites. - Continue Lovenox 60mg subcutaneously every 12 hours for now. Continue Plavix 75mg daily. - I have sent oxycodone 5mg tablet to be taken by mouth every 8 hours as needed for pain; you may use this in addition to Tylenol. I have also sent a course of Zofran for nausea. - We will plan to recheck your hemoglobin next week to continue to monitor your anemia. - Please call the office at [phone] with any questions/concerns. Discharge Orders/Prescriptions Prescriptions: New acetaminophen 325 mg Tablet 650 mg PO Q6H PRN PRN (Reason: Pain 1-10 Or Fever >100.7) Qty: 0 0RF clopidogrel 75 mg Tablet 75 mg PO DAILY Qty: 90 3RF oxycodone 5 mg Tablet 5 mg PO Q8H PRN PRN (Reason: Pain Score 4-10) 5 Days Qty: 15 0RF Continued Zyrtec 10 mg capsule 10 mg PO DAILY tizanidine 2 mg tablet 2 mg PO QHS PRN (Reason: muscle spasticity) Qty: 14 1RF sertraline 100 MG tablet 50 mg PO BID Patient Comments: ANXIETY cyanocobalamin (vitamin B-12) 5,000 MCG tablet,disintegrating 3,000 mcg PO DAILY Cholecalciferol (Vitamin D3) [Vitamin D3] 5,000 UNIT capsule 5,000 unit PO DAILY omeprazole 20 MG tablet,delayed release (DR/EC) 20 mg PO QHS pitavastatin calcium [Livalo] 2 mg Tablet 4 mg PO QPM dicyclomine 20 mg Tablet 20 mg PO BID enoxaparin [Lovenox] 60 mg/0.6 mL syringe 60 mg subcut Q12H 30 Days Qty: 36 0RF Slow Fe 137 mg (45 mg iron) tablet extended release 137 mg PO DAILY ondansetron HCl 4 mg tablet 4 mg PO BID PRN PRN (Reason: nausea/vomiting) 5 Days Qty: 10 0RF Referrals / Follow Up: Jimbo Dash MD [Primary Care Provider] - Disposition Disposition (needs filled in before D/C Order can be placed): Home, Self Care
--- NOTE | 2025-01-06 11:15 | CASEMGMT ---
Patient has order for discharge. RN CM in to discuss needs at discharge, family at bedside. Patient denies needs or help at discharge. Patient had no further questions or concerns.
--- NOTE | 2025-01-06 11:25 | PHA.DC_ITS ---
Pharmacy [facility] has performed discharge medication reconciliation and counseling for this patient. Patient asked if Zofran had been sent to the pharmacy, I did not see one sent upon initial review. Called [facility] to check if they received an RX for Zofran and they had not. Contacted Martine Hamptonhn, she will send a new script for Zofran. Patient notified. 1. ACETAMINOPHEN 650MG PO Q6H PRN PAIN 2. CLOPIDOGREL 75MG PO DAILY 3. OXYCODONE 5MG PO Q8H PRN PAIN The patient's discharge medication list was reviewed for discrepancies and discrepancies were resolved. The patient was counseled on the following discharge medications and changes in medications for homegoing were reviewed. The Reason for Use, instructions for use, and potential side effects were reviewed for all new medications. The patient's questions regarding all of their medications were answered. The patient was able to verbally demonstrate an understanding of their discharge medications. Medications at Discharge Home Medications sertraline 100 mg tablet 50 mg PO BID anxiety 03/30/14 Cholecalciferol (Vitamin D3) [Vitamin D3] 5,000 unit PO DAILY supplement 03/07/20 cyanocobalamin (vitamin B-12) 5,000 mcg disintegrating tablet 3,000 mcg PO DAILY supplement 03/07/20 omeprazole 20 mg tablet,delayed release 20 mg PO QHS reflux 03/07/20 pitavastatin calcium 2 mg tablet (Livalo) 4 mg PO QPM cholesterol 02/08/22 cetirizine 10 mg capsule (Zyrtec) 10 mg PO DAILY allergies 04/12/22 dicyclomine 20 mg tablet 20 mg PO BID IBS 10/02/22 tizanidine 2 mg tablet 2 mg PO QHS PRN muscle spasticity #14 tabs 12/10/23 enoxaparin 60 mg/0.6 mL subcutaneous syringe (Lovenox) 60 mg (0.6 mL) subcut Q 12H 30 days #36 mL 12/28/24 ferrous sulfate 137 mg (45 mg iron) tablet,extended release (Slow Fe) 137 mg PO DAILY 01/04/25 acetaminophen 325 mg tablet 650 mg (2 x 325 mg) PO Q6H PRN PRN Pain 1-10 Or Fever >100.7 #0 tabs 01/06/25 clopidogrel 75 mg tablet 75 mg PO DAILY #90 tabs 01/06/25 ondansetron HCl 4 mg tablet 4 mg PO BID PRN PRN nausea/vomiting 5 days #10 tabs 01/06/25 oxycodone 5 mg tablet 5 mg PO Q8H PRN PRN Pain Score 4-10 5 days #15 tabs 01/06/25
== END 2025-01-06 11:38 | disposition home or self-care (01) ==
PROVIDERS: Admitting Provider Surgery Trauma Surgery; PCP Family Medicine; Referring Provider Surgery Trauma Surgery; Visit Provider Surgery Trauma Surgery
DX: I82.422 Acute embolism and thrombosis of left iliac vein (principal); I82.412 Acute embolism and thrombosis of left femoral vein; K21.9 Gastro-esophageal reflux disease without esophagitis; T82.868A Thrombosis due to vascular prosthetic devices, implants and grafts, initial encounter; D64.9 Anemia, unspecified; Z79.01 Long term (current) use of anticoagulants; I51.3 Intracardiac thrombosis, not elsewhere classified; Y71.2 Prosthetic and other implants, materials and accessory cardiovascular devices associated with adverse incidents; R60.0 Localized edema; Z79.899 Other long term (current) drug therapy; Z79.02 Long term (current) use of antithrombotics/antiplatelets
CPT/HCPCS: 36005; 36010; 36415; 37187; 37248; 37252; 37253; 75822; 75825; 76937; 80048; 85025; 85027; 85347; 85610; 85730; 96365; 96366; 96372; 96375; 96376; 99152; 99153; 99221; C1725; C1753; C1769; C1887; C1894; Q9967; A4216; C1757; G0378; J2405

== ENCOUNTER → 2025-01-13 | Outpatient (CLI) | payer OTHER, SELFPAY ==
[2025-01-13 18:00] LABS: Hematocrit 31.5 % (37-47); Hemoglobin 9.7 g/dL (12.0-15.0); Immature Granulocytes Count 0.010 X10^3/uL (0.0-0.0); Immature Reticulocyte Fraction 28.50 % (3.00-15.90); Mean Corp Hgb Conc 30.8 g/dL (32-36); Mean Corpuscular Volume 91.6 fL (81-99); Mean Platelet Vol. 10.1 fl (6.2-12.0); NRBC Flagged by Analyzer 0 % (0-5); Platelet Count 347 K/mm3 (150-450); RBC Distribution Width CV 13.2 % (11.6-14.6); RBC Distribution Width SD 44.3 fl (35.1-43.9); Red Blood Count 3.44 M/mm3 (4.2-5.4); Reticulocyte Count 2.98 % (0.5-1.5); White Blood Count 5.2 K/mm3 (4.4-11.0)
[2025-01-13 18:51] LABS: Ferritin 25 ng/mL (22-378); Iron 18 ug/dL (50-170); Iron Binding Capacity,Total 388 ug/dL (250-450); Iron Binding Capacity,Unsat 370 ug/dL (228-428)
== END | disposition home or self-care (01) ==
LOC: MFPLAB 15:07
PROVIDERS: PCP Family Medicine; Visit Provider Family Medicine
DX: D64.9 Anemia, unspecified (principal)
CPT/HCPCS: 36415; 82728; 83540; 83550; 85025; 85045

== ENCOUNTER 2025-03-24 08:44 | Day surgery (SDC) | payer OTHER, SELFPAY ==
[2025-03-24 08:50] VITALS: BMI 24.9
[2025-03-24 08:57] LABS: Hematocrit 39.9 % (37-47); Hemoglobin 12.0 g/dL (12.0-15.0); Mean Corp Hgb Conc 30.1 g/dL (32-36); Mean Corpuscular Volume 84.5 fL (81-99); Mean Platelet Vol. 9.7 fl (6.2-12.0); Platelet Count 264 K/mm3 (150-450); RBC Distribution Width CV 14.9 % (11.6-14.6); RBC Distribution Width SD 45.4 fl (35.1-43.9); Red Blood Count 4.72 M/mm3 (4.2-5.4); White Blood Count 4.2 K/mm3 (4.4-11.0)
[2025-03-24 09:42] LABS: Anion Gap 9 (5-15); BUN 13 mg/dL (4-19); BUN/Creat Ratio 15.2 RATIO (10-20); Calcium,Total 9.5 mg/dL (7.6-11.0); Carbon Dioxide 25.3 mmol/L (21.0-32.0); Chloride 106 mmol/L (98-108); Estimated Creatinine Clearance 65.75 ml/min (50-250); Glucose 88 mg/dL (70-99); Potassium 4.1 mmol/L (3.3-5.1)
--- NOTE | 2025-03-24 11:01 | HP.PCM_ITS ---
HPI - General HPI Narrative ARYAN AHN, is a 59 F who presents with prior DVT, venous stents with prior thrombectomy. She has been doing well with no new edema, currently on lovenox. COUNTS INCLUDE 234 BEDS AT THE [facility] Medical History GERD (gastroesophageal reflux disease) DVT (deep venous thrombosis) Loss of hearing Wears glasses Arthritis Bladder disease Restless legs Difficulty swallowing Gastric reflux Non-smoker Leg cramps History of pain when walking History of echocardiogram History of stress test Anxiety Anemia Home Medications ?Medication ?Instructions ?Recorded ?Last Taken ?Type sertraline 100 mg tablet 50 mg PO BID anxiety 4 03/13/24 History Cholecalciferol (Vitamin D3) 5,000 unit PO DAILY suppl ement 03/07/20 03/13/24 History [Vitamin D3] cyanocobalamin (vitamin B-12) 3,000 mcg PO DAILY suppl ement 03/07/20 03/13/24 History 5,000 mcg disintegrating tablet omeprazole 20 mg tablet,delayed 20 mg PO QHS reflux 03/12/24 History release pitavastatin calcium 2 mg tablet 4 mg PO QPM cholester ol 02/08/22 03/12/24 History (Livalo) dicyclomine 20 mg tablet 20 mg PO BID IBS 10/02/22 History ferrous sulfate 137 mg (45 mg 137 mg PO DAILY 01/04/25 Unknown History iron) tablet,extended release (Slow Fe) acetaminophen 325 mg tablet 650 mg (2 x 325 mg) PO Q6H PRN PRN 01/06/25 Unknown Rx Pain 1-10 Or Fever >100.7 #0 tabs enoxaparin 60 mg/0.6 mL 60 mg (0.6 mL) subcut Q12H 3 0 days 01/21/25 03/23/25 Rx subcutaneous syringe (Lovenox) #36 mL magnesium glycinate 100 mg (as 200 mg PO BID 03/04/25 Unknown History glycinate) tablet Allergy/AdvReac Type Severity Reaction Status Date / Time hydrocodone (From Vicodin) Allergy Nausea/Vom/ Verified 03/04/25 09:38 Diarrhea Family History Mother Colon cancer Cancer ovary Diabetes Father Hypertension Surgical History Hx of bladder repair surgery Hx of cystoscopy Hx of shoulder surgery Hx of colonoscopy S/P rotator cuff repair S/P bunionectomy S/p bilateral carpal tunnel release S/P cholecystectomy S/P hysterectomy Social History household members: spouse housing: house current occupational status: employed Smoking Status: Never smoker alcohol intake: never ROS Constitutional Constitutional: Denies chills, fever(s), frequent falls, lethargy or weakness Eyes Eyes: Denies blind spots, change in vision or loss of vision ENT HEENT: Denies bleeding gums, hoarseness or sore throat Cardiovascular Cardiovascular: Denies abdominal pain, bluish discoloration of hand/feet, chest pain with activity, claudication, cold extremities, cyanosis, dyspnea on exertion, erythema on extremities, irregular heart rhythm, leg edema, leg ulcers, numbness in extremities or weakness in extremities Respiratory/Chest Respiratory/Chest: Denies cough, excessive phlegm production, shortness of breath at rest, shortness of breath with exertion or wheezing Gastrointestinal Gastrointestinal: Denies anorexia, change in stool character, constipation, diarrhea, melena or rectal bleeding Genitourinary Genitourinary: Denies dysuria or hematuria Musculoskeletal Musculoskeletal: Denies abnormal gait Integumentary Integumentary: Reports other Details: ; Denies erythema, non-healing lesions or wounds Neurologic Neurologic: Denies abnormal speech, focal weakness, headache(s), loss of vision, numbness, paresthesias or sensory deficit Hematologic/Lymphatic Hematologic/Lymphatic: Denies easy bleeding, easy bruising or lymphadenopathy Vital Signs Vital Signs Vital Signs: Weight Weight: 145 lb Body Mass Index (BMI) 24.9 Physical Exam Const alert, oriented x3, no apparent distress and healthy appearing General Appearance: cooperative; Negative for combative or lethargic Orientation / Consciousness: awake Exam Limitations: no limitations HEENT Head and Scalp: normocephalic and atraumatic Eyes EOMs intact bilaterally General Eye: normal appearance of both eyes Neck full ROM General: trachea midline Lymph Lymphatic: Negative for no lymphadenopathy noted Resp normal respiratory effort and no use of accessory muscles Effort and Inspection: Negative for labored, stridor or audible wheezes Cardio regular rate and regular rhythm Back/Spine Cervical Spine: cervical ROM normal Extremity full ROM, normal capillary refill and no clubbing, cyanosis or edema Skin no rashes or lesions noted and no wounds Neuro oriented x3, CN's II-XII intact bilaterally, no focal motor deficits and no sensory deficits noted Psych thought process normal, cooperative, affect normal, speech normal and activity/motor behavior normal Results Lab / Micro Data 03/24/25 08:49 03/24/25 08:49 Labs: Laboratory Results - last 24 hr 03/24/25 08:49: WBC 4.2 L, RBC 4.72, Hgb 12.0, Hct 39.9, MCV 84.5, MCH 25.4 L, M CHC 30.1 L, RDW Std Deviation 45.4 H, RDW Coeff of Horacio 14.9 H, Plt Count 264, MPV 9.7, Sodium 141, Potassium 4.1, Chloride 106, Carbon Dioxide 25.3, Anion Gap 9, BUN 13, Creatinine 0.86, Estim Creat Clear Calc 65.75, Est GFR (MDRD) Non-Af 78, BUN/Creatinine Ratio 15.2, Glucose 88, Calcium 9.5 Assessment & Plan Assessment/Plan (1) Obstruction of iliac vein: PLAN: -venogram
--- NOTE | 2025-03-24 14:36 | OP.PCM_ITS ---
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 At the time she had some residual Uriel stenosis of approximately 74% that did not appear to be flow limiting or flow disturbing so no further treatment was pursued at that time. She is brought now for venogram to assess her stents for the current degree of stenosis before making alterations to her medical regimen. Description of procedure: Upon obtaining informed consent and verification correct patient procedure site the patient taken the [employer] where she was positioned prepped and draped in usual sterile fashion. Time was performed upon sedation ministered Versed and fentanyl. Skin overlying the right common femoral vein was anesthetized 1% lidocaine the vessel accessed under ultrasound guidance with a micropuncture needle wire. This then exchanged for micropuncture sheath through which hand-injection ilio caval venogram was performed revealing satisfactory position with no extravasation or dissection. Also revealed patent right common iliac and inferior vena cava stent with no in- stent stenosis visualized and brisk contrast transit without pelvic collateral filling. Through the micropuncture sheath Bentson wire was advanced and the micropuncture sheath exchanged for an 8 Montenegrin sheath. Next kin overlying the left common femoral vein was anesthetized 1% lidocaine the vessel accessed under ultrasound guidance with a micropuncture needle wire. This then exchanged for micropuncture sheath through which hand-injection ilio caval venogram was performed going satisfactory position with no extravasation or dissection. This revealed mild in-stent stenosis of similar appearance to her prior imaging with brisk contrast transit and no pelvic collateral filling. Through the micropuncture sheath and Bentson wire was advanced and the micropuncture sheath exchanged for a short 8 Montenegrin sheath. Intravascular ultrasound probe was then advanced via the left femoral access sheath and recorded pullback performed of the inferior vena cava, left common iliac vein, left external leg vein. This revealed a 49% stenosis within the mid segment of the stent that was less significant than at her prior imaging session. Otherwise the stent was patent with no significant stenosis. The probe was then withdrawn and advanced via the right femoral access sheath and recorded pullback performed of the inferior vena cava, right common iliac vein, right external iliac vein. This revealed widely patent stent with no in-stent stenosis evident. See no lesions that were appropriate for intervention wires and catheters were withdrawn. Silk pursestring sutures were then placed at the access sites and the sheath withdrawn followed by 5 minutes of any pressure until hemostasis was observed. The patient was then taken to the recovery area plan discharged home after bedrest. Surgical Findings: See above Complications Complications: No
== END 2025-03-24 13:45 | disposition home or self-care (01) ==
PROVIDERS: PCP Family Medicine; Referring Provider Surgery Trauma Surgery; Visit Provider Surgery Trauma Surgery
DX: T82.856A Stenosis of peripheral vascular stent, initial encounter (principal); K21.9 Gastro-esophageal reflux disease without esophagitis; Z86.718 Personal history of other venous thrombosis and embolism; I87.1 Compression of vein
CPT/HCPCS: 36010; 36415; 37252; 37253; 75825; 76937; 80048; 85027; 99152; 99153; C1753; C1769; C1894; Q9967

== ENCOUNTER 2025-04-02 06:23 | Day surgery (SDC) | payer OTHER, SELFPAY ==
[2025-04-02] VITALS (7 sets, daily range): BP systolic 98–115; BP diastolic 72–78; PULSE 64–88; RESP 16; TEMP 36.1–36.4; O2SAT 94–99; BMI 23.0
--- OUTSIDE RECORDS SUMMARY | 2025-04-02 06:29 | XMS RPT_ITS | CCD ---
Author Organization [facility] Care Team Providers Care Head Of Art Name Role Phone Saeid Griffith Unavailable Camila Stewart LPN Unavailable Unavailab jennifer Garner PUMPER GAGER-C, Neto Blum Unavailable Unavailable Now Nurse Unavailable Unavailable Camila Stewart LPN Unavailable Unavailab Jimbo Costa MD Primary Care Provider Jimbo Dash MD Unavailable Dr. Jimbo Dash Primary Care Provider Dr. Jimbo Dash Referring Provider [phone] Tony Jasmine Attending Provider [phone] KINGS Griffith Attending Provider Dr. Tony Jasmine Other Provider Jimbo Dash MD Primary Care Provider Jimbo Dash MD Unavailable Dr. Jimbo Dash Primary Care Provider Dr. Jimbo Dash Referring Provider Dr. Tony Jasmine Attending Provider [phone] KINGS Griffith Attending Provider [phone] Tnoy Jasmine Other Provider Jimbo Dash MD Primary Care Provider Jimbo Dash MD Unavailable [phone] Dr. Jimbo Dash Primary Care Provider Dr. Jimbo Dash Referring Provider Dr. Tony Jasmine Attending Provider Dr. Audie Moran Attending Provider Bibilly KU, PA Martine Attending Provider [phone] Dr. Reji Goldberg Attending Provider [phone] Jimbo Dash Primary Care Provider Dr. Jimbo Dash Referring Provider Dr. Audie Moran Attending Provider Bibilly KU, PA Martine Attending Provider [phone] Dr. Reji Goldberg Attending Provider [phone] Patrick KU, PA Martine Referring Provider [phone] Dr. Jimbo Dash Primary Care Provider Dr. Jimbo Dash Referring Provider Dr. Jimbo Dash Primary Care Provider Dr. Jimbo Dash Referring Provider Patrick, PA Martine Attending Provider Dr. Reji Goldberg Referring Provider [phone] Reji Goldberg Other Provider Dr. Reji Goldberg Attending Provider [phone] Jimbo Dash Primary Care Provider Dr. Reji Goldberg Attending Provider [phone] KINGS Power Referring Provider [phone] Jimbo Dash Referring Provider KINGS Griffith Attending Provider Dr. Jimbo Dash Primary Care Provider Dr. Reji Goldberg Attending Provider [phone] KINGS Power Referring Provider [phone] Jimbo Dash Referring Provider KINGS Griffith Attending Provider Hardy, Dr. Choi Primary Care Provider Hardy MCELROY, Dr. Choi Primary Care Provider Hardy MCELROY, Dr. Choi Attending Provider Hardy MCELROY, Dr. Choi Referring Provider Jennifer GEORGE, Dr. Emery Attending Provider Jennifer GEORGE, Dr. Emery Referring Provider Jennifer GEORGE, Dr. Emery Emergency Provider Ashlyn MCELROY, Dr. Mendoza Attending Provider Tono KU, Martine Attending Provider [phone] Tono KU, aMrtine Referring Provider [phone] Ashlyn MCELROY, Dr. Mendoza Referring Provider Hardy MCELROY, Jimbo Joseph Primary Care Provider Hardy MCELROY, Jimbo Joseph Unavailable Hardy MCELROY, Dr. Choi Primary Care Provider Hardy MCELROY, Dr. Choi Attending Provider Hardy MCELROY, Dr. Choi Referring Provider Dr. Reji Goldberg MD Attending Provider ELIDA ANGELO Attending Provider [phone] ELIDA ANGELO Referring Provider [phone] Dr. Jimbo Dash MD Primary Care Provider Hardy MCELROY, Dr. Choi Attending Provider Hardy MCELROY, Dr. Choi Referring Provider Dr. Reji Goldberg MD Attending Provider [phone] Corey MCELROY, Dr. Chen Attending Provider Ayad MCELROY, Dr. Adame Emergency Provider Unavailable Primary Care Provider UnavailFÁTIMA Cardozo Referring Unavailable JIMBO DASH Primary Care Unavailable RIC TAYLOR Attending Unavailable DASH, JIMBO R Primary Care Unavailable DASH, JIMBO R Primary Care Unavailable MARGUERITE DAILY Attending Unavailable MARGUERITE DAILY Referring Unavailable DASH, JIMBO R Primary Care Unavailable ALEN ORDONEZ Attending Unavailable ALEN ORDONEZ Admitting Unavailable DASH, JIMBO R Primary Care Unavailable SANTILLANFÁTIMA ODELL Attending Unavailable DASH, JIMBO R Primary Care Unavailable SANTILLANFÁTIMA ODELL Attending Unavailable SANTILLAN, FÁTIMA Referring Unavailable DASH, JIMBO R Primary Care Unavailable ELIDA ANGELO Attending Unavailable RIC TAYLOR Referring Unavailable DASH, JIMBO Joseph Primary Care Unavailable Hardy MCELROY, Dr. Choi Primary Care Provider Ayad MCELROY, Dr. Adame Attending Provider Mirza MCELROY, Dr. Jose Blum Attending Provider Ayad MCELROY, Dr. Adame Referring Provider Ashlyn MCELROY, Dr. Mendoza Attending Provider Hardy MCELROY, Dr. Choi Referring Provider Martine Santos Attending Provider Ashlyn MCELROY, Dr. Mendoza Admit Provider Ashlyn MCELROY, Dr. Mendoza Referring Provider Ashlyn MCELROY, Dr. Mendoza Other Provider Hardy MCELROY, Dr. Choi Primary Care Physician ELIDA ANGELO Attending Physician [phone] Corey MCELROY, Dr. Chen Attending Physician Ayad MCELROY, Dr. Adame Attending Physician Ayad MCELROY, Dr. Adame Emergency Department Physician Mirza MCELROY, Dr. Jose Blum Attending Physician Ashlyn MCELROY, Dr. Mendoza Attending Physician Martine Santos Attending Physician Ashlyn MCELROY, Dr. Mendoza Admitting Physician Ashlyn MCELROY, Dr. Mendoza Nurse Practitioner Hardy MCELROY, Dr. Choi Attending Physician Le, Rupert Attending Unavailable Le, Rupert Referring Unavailable Dash, Jimbo Primary Care Unavailable Torrez, Mp Attending Unavailable Dash, Jimbo Primary Care Unavailable Dash, Jimbo Primary Care Unavailable Lion, Deep Attending Unavailable Assessment, Health Risk Attending Unavaila ble Assessment, Health Risk Referring Unavaila ble Dash, Jimbo Primary Care Unavailable Dash, Jimbo Referring Unavailable Dash, Jimbo Primary Care Unavailable Power, Martine Attending Unavailable Ashlyn, Reji Referring Unavailable Ashlyn, Reji Attending Unavailable Dash, Jimbo Primary Care Unavailable Dash, Jimbo Referring Unavailable [place], Reji Attending Unavailable Dash, Jimbo Primary Care Unavailable Dash, Jimbo Primary Care Unavailable Dash, Jimbo Referring Unavailable Dash, Jimbo Attending Unavailable Dash, Jimbo Primary Care Unavailable [place], Reji Referring Unavailable Ashlyn, Reji Admitting Unavailable [place], Reji Attending Unavailable [place], Reji Attending Unavailable Dash, Jimbo Primary Care Unavailable Dash, Jimbo Primary Care Unavailable Lion, Deep Attending Unavailable Dash, Jimbo Attending Unavailable Dash, Jimbo Primary Care Unavailable Dash, Jimbo Referring Unavailable ALYSSA, SLAVA Bui Attending Unavailable ALYSSA, SLAVA Bui Referring Unavailable Dash, Jimbo Primary Care Unavailable Power, Martine Attending Unavailable Dash, Jimbo Referring Unavailable Dash, Jimbo Primary Care Unavailable Dash, Jimbo Referring Unavailable Dash, Jimbo Primary Care Unavailable Power, Martine Attending Unavailable Mey Cotton Attending Unavailable Dash, Jimbo Referring Unavailable Dash, Jimbo Primary Care Unavailable Power, Martine Attending Unavailable Dash, Jimbo Referring Unavailable Dash, Jimbo Primary Care Unavailable Dash, Jimbo Referring Unavailable Dash, Jimbo Primary Care Unavailable Dash, Jimbo Attending Unavailable Power, Martine Referring Unavailable Dash, Jimbo Primary Care Unavailable Power, Martine Attending Unavailable Dash, Jimbo Attending Unavailable Dash, Jimbo Primary Care Unavailable Dash, Jimbo Primary Care Unavailable Lion, Deep Attending Unavailable Lion, Deep Referring Unavailable Dash, Jimbo Primary Care Unavailable [place], Reji Attending Unavailable Lion, Deep Referring Unavailable Ashlyn, Reji Attending Unavailable Le, Rupert Referring Unavailable Dash, Jimbo Primary Care Unavailable [place], Reji Referring Unavailable Ashlyn, Reji Admitting Unavailable [place], Reji Consulting Unavailable [place], Reji Attending Unavailable Dash, Jimbo Primary Care Unavailable [place], Reji Attending Unavailable Ashlyn, Reji Referring Unavailable Ashlyn, Reji Admitting Unavailable [place], Reji Consulting Unavailable Dash, Jimbo Primary Care Unavailable Martine Power Attending Unavailable Martine Power Attending Unavailable Jimbo Dash Referring Unavailable Jimbo Dash Primary Care Unavailable Jimbo Dash Primary Care Unavailable Jimbo Dash Referring Unavailable Jimbo Dash Attending Unavailable Allergies Allergy Classification Reported Allergen(s) Allergy Type Date of Onset Reaction(s) Facility (5 sources) acetaminophen / HYDROcodone drug allergy 10-29-2016 [facility] Work Phone: (20 sources) Aspirin; Translations: [ASPIRIN] Drug Allergy 02-27-2006 [facility] Work Phone: (20 sources) HYDROcodone Drug Allergy 03-21-2020 Other [facility] (20 sources) oxyCODONE; Translations: [OXYCODONE] Drug Allergy 02-08-2022 Itching [facility] (17 sources) Acetaminophen / HYDROcodone; Translations: [HYDROCODONE-ACETA MINOPHEN] Drug Allergy 10-29-2016 Vomiting [facility] (1 source) HYDROcodone Drug Allergy 03-04-2025 [facility] Repository Medications Current Medications Medication Drug Class(es) Dates Sig (Normalized) Sig (Original) acetaminophen 325 mg oral tablet (9 sources) Start: 01-06-2025 Start: 12-16-2024 End: 12-17-2024 take 1 tablet by mouth every eight hours as needed for pain 1,000 mg, Oral, Every 8 hours PRN, mild pain (1-3), Starting on Sat12/16/24 at 1409, Maximum dose of acetaminophen is 4000 mg from all sources in 24 hours. Start: 12-15-2024 End: 12-16-2024 take 1 tablet by mouth every six hours as needed for headache and pain and pain and pain and fever 650 mg, Oral, Every 6 hours PRN, headaches, mild pain (1-3), moderate pain (4-6), severe pain (7-10), fever, Starting on Sat12/15/24 at 1927, Maximum dose of acetaminophen is 4000 mg from all sources in 24 hours. apixaban 5 mg oral tablet (20 sources) Factor Xa Inhibitor Start: 12-17-2024 End: 01-16-2025 take 1 tablet by mouth twice daily in the evening apixaban (Eliquis) 5 MG tablet Take 1 tablet (5 mg) by mouth 2 times daily. 60 tablet 12/17/2024 1:22 PM EDT 12/17/2024 01/16/2025 Active Start: 12-11-2024 End: 12-28-2024 take 1 tablet by mouth once Apixaban (Eliquis Dvt-Pe T reat 30d Start) 5 mg (74 tabs) Tablets,Dose Pack Discontinued 0 .ROUTE .COMPLEX 74 0 December 11, 2024 12:00am December 28, 2024 5:01pm orally per package directions Start: 12-25-2023 End: 10-27-2024 take 1 tablet by mouth twice daily Apixaban (Eliquis) 5 mg tablet Discontinued 5 mg PO TWICE A DAY 60 4 February 28, 2024 12:32pm October 27, 2024 3:43pm Start: 12-03-2023 End: 12-25-2023 take 1 tablet by mouth once Apixaban (Eliquis Dvt-Pe T reat 30d Start) 5 mg (74 tabs) tablets,dose pack Discontinued 0 PO .COMPLEX 74 0 December 03, 2023 12:00am December 25, 2023 [...] 03, 2022 12:49pm August 30, 2022 4:05pm blood clots Start: 07-12-2016 End: 05-03-2022 take 1 tablet by mouth twice daily Apixaban 5 MG tablet Discontinued 5 mg PO TWICE A DAY May 05, 2019 1:00am May 03, 2022 12:51pm blood clots Start: 07-05-2016 ELIQUIS 5 MG T ABS 10 mg a day APIXABAN [id number] Marytash Edward Start: 05-15-2016 End: 07-12-2016 take 2 tablets by mouth twice daily, then take 1 tablet by mouth twice daily Apixaban (Eliquis) 5 MG tablet Discontinued 5 mg PO TWICE A DAY 30 0 May 15, 2016 1:00am July 12, 2016 [...] MG PO DAILY March 07, 2020 1:00am cetirizine hydrochloride 10 mg oral capsule (20 sources) Histamine-1 Receptor Antagonist Start: 2 take 1 capsule by mouth once daily Comment on above: Take by mouth. Cholecalciferol (Vitamin D3) (Vitamin D3) 5,000 UNIT capsule (20 sources) Start: 0 take 1 capsule by mouth once daily Start: 03-07-2020 take 1 capsule by mo uth once daily Cholecalciferol (Vitamin D3) (Vitamin D3) 5,000 UNIT capsule Active 5000 U PO DAILY March 07, 2020 1:00am supplement Complies with drug therapy Start: 03-07-2020 take 1 capsule by mo uth once daily Cholecalciferol (Vitamin D3) (Vitamin D3) 5,000 UNIT capsule Active 5000 U PO DAILY March 07, 2020 1:00am supplement Start: 03-07-2020 take 1 capsule by mo [...] UNIT PO DAILY March 07, 2020 1:00am clopidogrel 75 mg oral tablet (20 sources) [id number] Platelet Inhibitor Start: 01-06-2025 take 1 tablet by mouth once daily Start: 10-27-2024 End: 01-04-2025 take 1 tablet by mouth once daily Clopidogrel (Plavix) 75 mg tablet Discontinued 75 mg PO DAILY 90 October 27, 2024 12:00am January 04, 2025 8:08pm Start: 10-03-2022 End: 11-28-2023 take 1 tablet by mouth once daily Clopidogrel (Plavix) 75 mg tablet Discontinued 75 mg PO DAILY 90 October 03, 2022 12:00am November 28, 2023 3:11pm 0.6 ml enoxaparin sodium 100 mg/ml prefilled syringe (9 sources) Low Molecular Weight Heparin Start: 01-21-2025 Enoxaparin (Lovenox) 60 mg/0.6 mL syringe Active 60 mg SC Q12H 36 30 January 21, 2025 12:50pm Complies with drug therapy Start: 01-21-2025 Enoxaparin (Lo venox) 60 mg/0.6 mL syringe Active 60 mg SC Q12H 36 30 January 21, 2025 12:50pm Complies with drug therapy Start: 12-28-2024 End: 01-21-2025 Enoxaparin (Lovenox) 60 mg/0 .6 mL syringe Discontinued 60 mg SC Q12H 36 30 0 December 28, 2024 12:00am January 21, 2025 12:51pm enteric contrast (will be provided with radiology [...] contrast guidelines 1 each 09/25/2024 09/26/2024 Active 24 hr ferrous sulfate 142 mg extended release oral tablet (5 sources) Start: 01-04-2025 take 1 tablet by mouth once daily ibuprofen 600 mg oral tablet (16 sources) Nonsteroidal Anti-inflammatory Drug Start: 03-16-2011 End: 08-26-2024 take 1 tablet by mouth every six [...] tablet (20 sources) Proton Pump Inhibitor Start: 03-07-2020 take 1 tablet by mouth at bedtime take 1 capsule by mouth once kathy ly omeprazole (PriLOSEC) [address] capsule Take 20 mg by mouth Nightly. Do not crush or chew. Active ondansetron 4 mg oral tablet (20 sources) Serotonin-3 Receptor Antagonist Start: 01-21-2025 take 1 tablet by mouth twice daily as needed for nausea Ondansetron Hcl 4 mg tablet Active 4 mg PO TWICE DAILY NEEDED as needed for nausea/vomiting 10 5 January 21, 2025 12:50pm Complies with drug therapy Start: 01-21-2025 take 1 tablet by dom th twice daily as needed for nausea Ondansetron Hcl 4 mg tablet Active 4 mg PO TWICE DAILY NEEDED as needed for nausea/vomiting 10 5 January 21, 2025 12:50pm Complies with drug therapy Start: 01-04-2025 End: 01-21-2025 take 1 tablet by mouth twice daily as needed for nausea Ondansetron Hcl 4 mg tablet Discontinued 4 mg PO TWICE DAILY NEEDED as needed for nausea/vomiting 10 5 0 January 06, 2025 9:25am January 06, 2025 11:10am Start: 12-11-2024 End: 12-25-2024 Ondansetron Hcl 4 mg tablet Discontinued 4 mg PO 1 to 2 times per day as needed for nausea and vomiting 28 14 0 December 11, 2024 12:00am December 24, 2024 12:00am December 25, 2024 12:07am Start: 02-06-2019 End: 02-11-2019 take 1 tablet by mouth three times daily as needed for nausea and vomiting Ondansetron Hcl (Zofran) 4 mg tablet Discontinued 4 mg PO THREE TIMES A DAY as needed for nausea and vomiting 15 5 0 February 06, 2019 12:00am February 10, 2019 12:00am February 11, 2019 12:08am oxyCODONE hydrochloride 5 mg oral tablet (20 sources) Opioid Agonist Start: 01-06-2025 take 1 tablet by mouth every eight hours as needed for pain Start: 12-16-2024 End: 12-17-2024 take 1 tablet by mouth every four hours as needed for pain oxyCODONE (Roxicodone) immediate release tablet 2.5 mg Start: 12-11-2024 End: 12-28-2024 take 1 tablet by mouth twice daily Oxycodone 10 mg tablet,oral only,ext.rel.12 hr Discontinued 10 mg PO TWICE A DAY 8 4 0 December 11, 2024 December 28, 2024 5:01pm Phlegmasia cerulea dolens of left lower extremity Start: 12-11-2024 take 1 tablet by dom th every twelve hours Oxycodone 10 mg tablet,oral only,ext.rel.12 hr Active 10 mg PO Q12H 6 3 0 December 11, 2024 Phlegmasia cerulea dolens of left lower extremity Start: 12-03-2023 End: 06-11-2024 take 1 tablet by mouth every eight hours as needed for pain Oxycodone 5 mg tablet Discontinued 5 mg PO Q8H as needed for pain 9 3 0 December 03, 2023 June 11, 2024 3:30pm Postoperative pain Other acute postprocedural pain phenazopyridine hydrochloride 200 mg oral tablet (19 sources) Start: 10-12-2021 take 1 tablet by mouth every eight hours as needed phenazopyridine (PYRIDIUM) 200 mg tablet Take 1 tablet by mouth three times daily as needed. 9 tablet 10/12/2021 Active Comment on above: Take 1 tablet by dom th three times daily as needed. pitavastatin calcium 2 mg oral tablet (20 sources) HMG-CoA Reductase Inhibitor Start: 02-08-2022 Start: 07-05-2016 LIVALO 2 MG TA BS PITAVASTATIN CALCIUM [id number] Leigha Rebolledo Tiffanisilvia Start: 05-15-2016 take 2 mg by mouth at bedtime Pitavastatin Calcium Active 2 MG PO AT BEDTIME May 15, 2016 1:00am take 1 tablet by dom th once daily Pitavastatin Calcium (Livalo) 4 MG tablet Take 4 mg by mouth daily. Active pitavastatin samm cium (LIVALO ORAL) Take by mouth. Active pitavastatin samm cium (LIVALO ORAL) Take by mouth. 0 Active Comment on above: Take by mouth. predniSONE 10 mg oral tablet (3 sources) Start: 04-30-19 End: 08-27-19 predniSONE (DELTASONE) 10 mg tablet Take 4 [...] with food. raNITIdine 150 mg oral tablet (20 sources) Histamine-2 Receptor Antagonist Start: 08-08-19 take 1 tablet by mouth twice daily ranitidine (ZANTAC) 150 mg ORAL tablet Take 1 tablet by mouth twice daily. 60 tablet 11 08/08/2011 Active Comment on above: Take 1 tablet by dom th twice daily. sulfamethoxazole 800 mg / trimethoprim 160 mg oral tablet (5 sources) Dihydrofolate Reductase Inhibitor Antibacterial, Sulfonamide Antimicrobial Start: 01-22-20 End: 01-27-20 25 Sulfamethoxazole-Tr imethoprim (Bactrim Ds) 800-160 mg tablet Discontinued 1 {tbl} PO TWICE A DAY 10 5 0 January 21, 2025 12:51pm January 25, 2025 12:00am January 26, 2025 12:09am Start: 01-13-2025 End: 01-20-2025 Sulfamethoxazole-Trimethopri m (Bactrim Ds) 800-160 mg tablet Discontinued 1 {tbl} PO TWICE A DAY 14 7 0 January 13, 2025 12:00am January 19, 2025 12:00am January 20, 2025 12:10am Start: 10-12-2021 End: 10-15-2021 sulfamethoxazole-trimethopri m (BACTRIM DS) 800-160 mg per tablet Take 1 tablet by mouth twice daily for 3 days. FOR 3 DAYS. 6 tablet 0 10/12/2021 10/15/2021 Active Comment on above: Take 1 tablet by dom th twice daily for 3 days. FOR 3 DAYS. Surgical Lubricant Jelly gel (11 sources) Start: 12-04-2024 Surgical Lubricant Jelly gel For MRI Female [...] 10/23/2024 Active tiZANidine 2 mg oral tablet (11 sources) Central alpha-2 Adrenergic Agonist Start: 12-10-2023 take 1 tablet by mouth at bedtime as needed vitamin b12 5 mg disintegrating oral tablet (20 sources) Vitamin B12 Start: 03-07-2020 Start: 03-07-2020 take 3000 ug by mout [...] as needed for Pain Score 6-10/10 10 3 0 February 15, 2022 12:00am May 03, 2022 12:49pm Start: 02-15-2022 End: 05-03-2022 take 1 tablet by mouth every six hours as needed Acetaminophen-Codeine Discontinued 1 - 2 TABLET PO EVERY 6 HOURS NEEDED 10 3 February 15, 2022 12:00am May 03, 2022 12:49pm Start: 10-22-2018 End: 10-28-2018 take 1-2 tablets by mouth every six hours as needed for pain Acetaminophen-Codeine 1 TABLET tablet Discontinued 1 - 2 {tbl} PO EVERY 6 HOURS NEEDED as needed for Pain 20 4 0 October 22, 2018 12:00am October 25, 2018 12:00am October 28, 2018 12:06am Postoperative pain Other acute postprocedural pain stop all other tylenol, take as directed Start: 10-22-2018 End: 10-28-2018 take 1-2 tablets by mouth every six hours as needed Acetaminophen-Codeine Discontinued 1 - 2 TABLET PO EVERY 6 HOURS NEEDED 20 4 October 22, 2018 12:00am October 28, 2018 12:06am stop all other tylenol, take as directed acetaminophen 325 mg / HYDROcodone bitartrate 5 mg oral tablet (20 sources) Opioid Agonist Start: 02-04-2019 End: 02-09-2019 Hydrocodone-Acetaminophen 1 TABLET tablet Discontinued 1 - 2 {tbl} PO EVERY 6 HOURS NEEDED as needed for Pain 40 5 0 February 04, 2019 February 08, 2019 12:00am February 09, 2019 12:09am Postoperative pain Other acute postprocedural pain Start: 02-04-2019 End: 02-09-2019 take 1 tablet by mouth every six hours as needed Hydrocodone-Acetaminophen Discontinued 1 - 2 TABLET PO EVERY 6 HOURS NEEDED 40 5 February 04, 2019 February 09, 2019 12:09am acetaminophen 325 mg / oxyCODONE hydrochloride 5 mg oral tablet (20 sources) Opioid Agonist Start: 12-11-2024 End: 12-28-2024 Oxycodone-Acetaminophen 5-32 5 mg tablet Discontinued 1 {tbl} PO EVERY 6 HOURS NEEDED as needed for pain 20 5 0 December 11, 2024 December 28, 2024 5:01pm Phlegmasia cerulea dolens of left lower extremity Start: 07-04-2019 End: 07-07-2019 Oxycodone-Acetaminophen 1 TA BLET tablet Discontinued 1 {tbl} PO EVERY 6 HOURS NEEDED as needed for Pain 12 3 0 July 04, 2019 July 06, 2019 12:00am July 07, 2019 12:08am Fracture of distal end of left radius Start: 07-04-2019 End: 07-07-2019 take 1 tablet by mouth every six hours as needed Oxycodone-Acetaminophen Discontinued 1 TABLET PO EVERY 6 HOURS NEEDED 12 3 July 04, 2019 July 07, 2019 12:08am Start: 02-12-2019 End: 05-05-2019 take 1-2 tablets by mouth every six hours as needed for pain Oxycodone-Acetaminophen (Percocet) 5-325 mg tablet Discontinued 1 {tbl} PO EVERY 6 HOURS as needed for pain 28 0 March 02, 2019 May 05, 2019 11:33am take 1-2 tabs every 6 hours as needed for pain, stop all other narcotics and tylenol products Start: 02-06-2019 End: 02-11-2019 take 1-2 tablets by mouth every six hours as needed for pain Oxycodone-Acetaminophen (Percocet) 5-325 mg tablet Discontinued 0 PO EVERY 6 HOURS as needed for pain 40 5 0 February 06, 2019 February 10, 2019 12:00am February 11, 2019 12:08am 1-2 tablets PO Q6H PRN; Start: 05-17-2017 End: 09-25-2018 Oxycodone-Acetaminophen 1 TA BLET tablet Discontinued 1 - 2 {tbl} PO EVERY 4 HOURS NEEDED as needed for Pain May 17, 2017 1:00am September 25, 2018 9:36am Acquired hallux valgus of right foot Hammer toe of right foot Hallux valgus (acquired), right foot Other hammer toe(s) (acquired), right foot Start: 05-17-2017 End: 09-25-2018 take 1 tablet by mouth every four hours as needed Oxycodone-Acetaminophen Discontinued 1 - 2 TABLET PO EVERY 4 HOURS NEEDED May 17, 2017 1:00am September 25, 2018 9:36am alendronic acid 70 mg oral tablet (11 sources) Bisphosphonate Start: 11-28-2023 End: 01-04-2025 take 1 tablet by mouth every week Alendronate 70 mg tablet Discontinued 70 mg PO EVERY WEEK November 28, 2023 12:00am January 04, 2025 8:07pm bones amoxicillin 500 mg oral capsule (20 sources) Penicillin-class Antibacterial Start: 04-29-2018 End: 05-09-2018 take 1 capsule by mouth twice daily Amoxicillin 500 mg capsule Discontinued 500 mg PO TWICE A DAY 20 10 0 April 29, 2018 1:00am May 08, 2018 1:00am May 09, 2018 1:11am amoxicillin 875 mg / clavulanate 125 mg oral tablet (11 sources) Penicillin-class Antibacterial Start: 09-12-2023 End: 09-22-2023 Amoxicillin-Pot Clavulanate 875-125 mg tablet Discontinued 1 {tbl} PO Q12H 20 10 0 September 12, 2023 12:00am September 21, 2023 12:00am September 22, 2023 12:05am Acute sinusitis, unspecified aspirin 325 mg oral tablet (2 sources) Platelet Aggregation Inhibitor, Nonsteroidal Anti-inflammatory Drug Start: 12-14-2024 End: 12-14-2024 take 325 mg by mouth once 325 mg, Oral, Once, On Sat12/14/24 at 5, For 1 dose atorvastatin 40 mg oral tablet (2 sources) HMG-CoA Reductase Inhibitor Start: 12-15-2024 End: 12-17-2024 take 40 mg by mouth once daily 40 mg, Oral, Nightly, First dose on Sat12/15/24 at 2100 baclofen vaginal suppository 10 mg (CPD) (4 [...] directed. calcium carbonate 1500 mg oral tablet (20 sources) Start: End: take 1 tablet by mouth twice daily Calcium Carbonate 600 mg calcium (1,500 mg) tablet Discontinued 600 mg PO TWICE A DAY April 12, 2022 1:00am November 28, 2023 3:10pm calcium chloride 0.0014 meq/ml / potassium chloride 0.004 meq/ml / sodium chloride 0.103 meq/ml / sodium lactate 0.028 meq/ml injectable solution (2 sources) Start: End: 500 mL, IntraVENous, at 500 mL/hr, Administer over 1 Hours, Once, On Sat12/16/24 at 1800, For 1 dose cephalexin 500 mg oral capsule (20 sources) Cephalosporin Antibacterial Start: End: take 1 capsule by mouth three times daily Cephalexin 500 mg capsule Discontinued 500 mg PO THREE TIMES A DAY 21 7 0 January 13, 2025 12:00am January 19, 2025 12:00am January 20, 2025 12:10am Start: 12-08-2024 End: 12-12-2024 take 1 capsule by mouth twice daily [...] mg PO EVERY 12 HOURS 6 3 0 May 12, 2019 1:00am May 14, 2019 1:00am May 15, 2019 1:08am post-operative cholecalciferol 0.05 mg oral capsule (20 sources) Vitamin D Start: 04-12-2022 End: 05-03-2022 take 1 capsule by mouth once daily Cholecalciferol (Vitamin D3) 50 mcg (2,000 unit) capsule Discontinued 50 ug PO DAILY April 12, 2022 1:00am May 03, 2022 12:50pm dicyclomine hydrochloride 10 mg oral capsule (20 sources) Anticholinergic Start: 12-15-2024 End: 12-17-2024 take 20 mg by mouth once daily 20 mg, Oral, Daily, First dose on Sat12/15/24 at 1900 Start: 10-02-2022 take 1 tablet by dom th twice daily take 1 tablet by dom th once daily dicyclomine (Bentyl) 20 MG tablet Take 20 mg by mouth daily. Active docusate sodium 100 mg oral capsule (20 sources) Start: 04-07-2014 End: 10-30-2014 take 1 capsule by mouth twice daily Docusate Sodium (Dok) 100 MG capsule Discontinued 200 mg PO TWICE A DAY 30 April 07, 2014 1:00am October 30, 2014 8:26am 1 po bid to prevent constipation while on narcotic pain med estradiol 0.1 mg/ml vaginal cream (20 sources) Estrogen Start: 12-28-2024 End: 01-04-2025 Estradiol 0.01 % (0.1 mg/gram) cream Discontinued 1 VAGINAL .COMPLEX December 28, 2024 12:00am January 04, 2025 8:08pm 1 vaginally 2 times a week; Start: 10-23-2024 estradiol (EST RACE) 0.01 % [...] THEN 1 g two times a week. 250 ml heparin sodium, porcine 100 unt/ml injection (4 sources) Unfractionated Heparin, Anti-coagulant Start: 12-15-2024 End: 12-15-2024 5,264 Units (80 Units/kg 65.8 kg), IntraVENous, Once, On Sat12/15/24 at 1520, For 1 dose, Initial one time bolus Start: 12-15-2024 End: 12-17-2024 5-30 Units/kg/hr 65.8 kg (3. 29-19.74 mL/hr, rounded to 3.3-19.7 mL/hr), IntraVENous, Continuous, Starting on Sat12/15/24 at 1520, HIGH Dose Heparin Weight Based Dosing (VTE/DVT/PE) >>>>Initial dose: 18 units/kg/hr 100.9 Hold heparin for 60 min Decrease [...] medication is held outside of ordered parameters 1 ml HYDROmorphone hydrochloride 1 mg/ml cartridge (2 sources) Opioid Agonist Start: 12-16-2024 End: 12-16-2024 0.5 mg, IntraVENous, Every 5 min PRN, [...] do not return to initial therapy medications. iopamidol (Isovue-370) 76 % injection 75 mL (4 sources) Start: 12-16-2024 End: 12-16-2024 take 75 mL intravenously once as needed 75 mL, IntraVENous, IMG once PRN, contrast, Starting on Sat12/16/24 at 0939, For 1 dose Start: 12-14-2024 End: 12-14-2024 take 75 mL intravenously once as needed 75 mL, IntraVENous, IMG once PRN, contrast, Starting on Sat12/14/24 at 2137, For 1 dose iv contrast (will be provided with radiology test) (1 source) Start: 10-23-2024 End: 10-24-2024 iv contrast (will be provided with radiology [...] (2 sources) Antiarrhythmic, Amide Local Anesthetic Start: 10-23-2024 End: 10-23-2024 lidocaine urojet 2 % 6 mL topical gel (GLYDO) Start: 10-23-2024 End: 10-23-2024 6 mL, URETHRAL, ONCE (UP TO 30 DAYS AMB), 1 dose, On Sat10/23/24 at 1000 Magnesium (20 sources) Start: 02-08-2022 End: 10-25-2022 take 1 [...] 2022 12:00am methylPREDNISolone 4 mg oral tablet (11 sources) Corticosteroid Start: 09-12-2023 End: 09-18-2023 take 1 tablet by mouth once Methylprednisolone (Medrol (Woodrow)) 4 mg tablets,dose pack Discontinued 4 mg PO per package directions 21 6 0 September 12, 2023 12:00am September 17, 2023 12:00am September 18, 2023 12:07am metoprolol tartrate 50 mg oral tablet (2 sources) beta-Adrenergic Shira Start: 12-15-2024 End: 12-16-2024 take 50 mg by mouth twice daily 50 mg, Oral, 2 times daily, First dose on Sat12/15/24 at 2000, For 2 doses 1 ml naloxone hydrochloride 0.4 mg/ml injection (2 sources) Opioid Antagonist Start: 12-16-2024 End: 12-17-2024 0.4 mg, IntraVENous, Every 5 min PRN, opioid reversal, respiratory depression, Starting on Sat12/16/24 at 1602, +++ For RR nitrofurantoin, macrocrystals 25 mg / nitrofurantoin, monohydrate 75 mg oral capsule (20 sources) Nitrofuran Antibacterial Start: 12-18-2021 End: 12-25-2021 take 1 capsule by mouth every twelve hours at mealtime Nitrofurantoin Monohyd/M-Cryst 100 mg capsule Discontinued 1 NMA PO Q12H 14 7 0 December 18, 2021 12:00am December 24, 2021 12:00am December 25, 2021 12:04am administer with a meal/food; swallow whole; do not open, crush, dissolve , or chew ondansetron ODT (Zofran-ODT) disintegrating tablet 4 mg (2 sources) Start: 12-15-2024 End: 12-17-2024 take 1 tablet by mouth every eight hours as needed for nausea and vomiting ondansetron ODT (Zofran-ODT) disintegrating tablet 4 mg pantoprazole 40 mg delayed release oral tablet (2 sources) Proton Pump Inhibitor Start: 12-16-2024 End: 12-17-2024 take 40 mg by mouth once daily before breakfast 40 mg, Oral, Daily before breakfast, First dose on Sat12/16/24 at 0600, Do not crush, chew, or split. penciclovir 10 mg/ml topical cream (20 sources) [...] sore 5 times daily until area clears polyethylene glycol [id number] mg powder for oral solution (2 sources) Osmotic Laxative Start: 12-16-19 End: 12-18-19 take 17 g by mouth every twenty-four hours as needed for constipation 17 g, Oral, Daily PRN, constipation, Starting on Sat12/15/24 at 0055, 1st line for treatment of constipation - give scheduled if no bowel movement in past 24 hours. sertraline 50 mg oral tablet (20 sources) Serotonin Reuptake Inhibitor Start: 12-29-19 End: 01-05-20 take 2 tablets by mouth once daily Sertraline 50 mg tablet Discontinued 100 mg PO DAILY December 28, 2024 12:00am January 04, 2025 7:25am Start: 12-15-2024 End: 12-17-2024 take 50 mg by mouth twice daily 50 mg, Oral, 2 times daily, First dose (after last modification) on Sat12/15/24 at 2100 Start: 07-05-2016 ZOLOFT 100 MG TABS SERTRALINE HCL [id number] Leigha Edward Start: 03-30-2014 Start: 03-30-2014 take 50 mg by mouth twice daily Sertraline Active 50 MG PO TWICE A DAY March 30, 2014 1:00am Comment on above: Take 100 mg by mouth once daily. 5 ml sodium chloride 9 mg/ml injection (6 sources) Start: 12-15-2024 End: 12-17-2024 10 mL, IntraVENous, Every 12 hours scheduled (2 times per day), First dose on Sat12/15/24 at 0900 Start: 12-15-2024 End: 12-17-2024 take 100 mL intravenously every hour as needed, then take 20 mL intravenously every hour as needed 5-250 mL/hr, IntraVENous, PRN, if patient receiving [...] or less into rate field of order. Start: 12-15-2024 End: 12-17-2024 take 10 mL intravenously once as needed 10 mL, IntraVENous, PRN, line care, Starting on Sat12/15/24 at 0055, After every IV line use traMADol hydrochloride 50 mg oral tablet (20 sources) Opioid Agonist Start: 05-12-2019 End: 05-17-2019 take 1 tablet by mouth every six hours as needed for pain Tramadol 50 MG tablet Discontinued 50 mg PO EVERY 6 HOURS NEEDED as needed for Pain Score 1-5/10 10 5 May 12, 2019 1:00am May 16, 2019 1:00am May 17, 2019 1:08am Calculus of urinary bladder Urethral stenosis Calculus in bladder Start: 03-25-2019 End: 05-05-2019 Tramadol 50 mg tablet Discon tinued 0 PO .COMPLEX as needed for pain 40 0 March 25, 2019 1:00am May 05, 2019 [...] 08, 2022 12:00am Vitamin B6-Vitamin E-Magnesium Tablet (11 sources) Start: 02-08-2022 End: 05-03-2022 Vitamin B6-Vitamin E-Magnesium Tablet Discontinued 1 {tbl} PO DAILY February 08, 2022 12:00am May 03, 2022 12:51pm zolpidem tartrate 5 mg oral tablet (20 sources) gamma-Aminobuty johanna Acid-ergic Agonist Start: 02-04-2019 End: 05-05-2019 take 1 tablet by mouth at bedtime as needed Zolpidem 5 MG tablet Discontinued 5 mg PO AT BEDTIME NEEDED as needed for Insomnia 14 0 February 04, 2019 12:00am May 05, 2019 11:33am Problems Active Problems Problem Classification Problem Date Documented Da te Episodic/Chronic Acquired foot deformities (20 sources) Acquired hallux valgus; Translations: [Hallux valgus (acquired), unspecified foot] Onset: 6 Resolved: 0 08-04-2009 Chronic Allergic reactions (1 source) Inflammatory dermatosis; Translations: [Dermatitis, unspecified] Episodic Cardiac dysrhythmias (8 sources) Sinus tachycardia; Translations: [Tachycardia, unspecified] 12-11-2024 Episodic Complication of device; implant or graft (20 sources) Disorders of musculoskeletal implants and repairs; Translations: [Other specified complication of internal orthopedic prosthetic devices, implants and grafts, initial encounter] Onset: 0 09-15-2009 Episodic Complications of surgical procedures or medical care (1 source) Complication of medical care 11-24-2024 Episodic Deficiency and other anemia (14 sources) Anemia; Translations: [Anemia, unspecified] 12-28-2024 Episodic Deficiency and other anemia (1 source) Anemia, unspecified; Translations: [Anemia, unspecified] Onset: 5 Episodic Disorders of lipid metabolism (1 source) Hyperlipidemia, unspecified; Translations: [Hyperlipidemia, unspecified] Onset: 5 Chronic Esophageal disorders (14 sources) Gastroesophageal reflux disease; Translations: [Gastro-esophageal reflux disease without esophagitis] Onset: 5 12-11-2023 Chronic Fracture of upper limb (20 sources) Fracture of distal end of radius; Translations: [Unspecified fracture of the lower end of left radius, initial encounter for closed fracture] 07-05-2019 Episodic Immunizations and screening for infectious disease (17 sources) Contact with and (suspected) exposure to other viral communicable diseases; Translations: [Contact with or suspected exposure to other viral communicable disease] 05-09-2023 Episodic Inflammation; infection of eye (except that caused by tuberculosis or sexually transmitteddisease) (20 sources) Acute conjunctivitis; Translations: [Unspecified acute conjunctivitis, left eye] 05-12-2019 Episodic Menopausal disorders (2 sources) Atrophy of vagina; Translations: [Postmenopausal atrophic vaginitis] Chronic Nausea and vomiting (5 sources) Nausea; Translations: [Nausea] Onset: 5 Episodic Open wounds of head; neck; and trunk (20 sources) Laceration of forehead; Translations: [Laceration without foreign body of other part of head, initial encounter] 07-05-2019 Episodic Other aftercare (20 sources) Long-term current use of anticoagulant; Translations: [MCFP (current) use of anticoagulants] 03-21-2024 Episodic Other connective tissue disease (8 sources) Pain in calf; Translations: [Pain in right lower leg] 06-19-2024 Episodic Other connective tissue disease (1 source) Spasm; Translations: [Other muscle spasm] 08-26-2024 Episodic Other connective tissue disease (9 sources) Pain in lower limb; Translations: [Pain in left leg] Onset: 5 12-11-2024 Episodic Other connective tissue disease (6 sources) Swelling of left lower limb; Translations: [Other specified soft tissue disorders] Onset: 5 12-14-2024 Episodic Other connective tissue disease (2 sources) Other specified soft tissue disorders; Translations: [Other specified soft tissue disorders] Onset: 5 Episodic Other connective tissue disease (3 sources) Pain of right calf; Translations: [Pain in right lower leg] 06-19-2024 Episodic Other connective tissue disease (1 source) Pain in left leg; Translations: [Pain in left leg] Onset: 5 Episodic Other diseases of bladder and urethra (20 sources) Postoperative urethral stricture; Translations: [Postoperative urethral stricture] 03-21-2020 Episodic Other diseases of bladder and urethra (20 sources) Urethral stenosis; Translations: [Urethral stenosis] 03-21-2020 Episodic Other diseases of veins and lymphatics (20 sources) Vulval varices; Translations: [Vulval varices] 08-01-2022 Episodic Other diseases of veins and lymphatics (8 sources) Vulval varices; Translations: [Vulval varices] 08-01-2022 Episodic Other diseases of veins and lymphatics (19 sources) Occlusion of iliac vein; Translations: [Compression of vein] 10-25-2022 Episodic Other diseases of veins and lymphatics (3 sources) Compression of vein; Translations: [Compression of vein] Onset: 5 10-25-2022 Episodic Other diseases of veins and lymphatics (20 sources) Obstruction of iliac vein; Translations: [Compression of vein] 12-11-2024 Episodic Other diseases of veins and lymphatics (1 source) Venous insufficiency (chronic) (peripheral); Translations: [Venous insufficiency (chronic) (peripheral)] Onset: 5 Episodic Other female genital disorders (1 source) Dyspareunia; Translations: [Other specified dyspareunia] Chronic Other female genital disorders (1 source) Pain in female genitalia on intercourse; Translations: [Unspecified dyspareunia] 08-26-2024 Chronic Other female genital disorders (1 source) Vaginospasm; Translations: [Vaginismus] Episodic Other gastrointestinal disorders (20 sources) Constipation; Translations: [Constipation, unspecified] Onset: 1 01-15-2011 Episodic Other gastrointestinal disorders (1 source) Constipation, unspecified; Translations: [Constipation, unspecified] Onset: 5 Episodic Other gastrointestinal disorders (1 source) Dysphagia, unspecified; Translations: [Dysphagia, unspecified] Onset: 5 Episodic Other injuries and conditions due to external causes (1 source) Injury of toe of left foot; Translations: [Unspecified injury of left foot, initial encounter] 12-08-2024 Episodic Other injuries and conditions due to external causes (1 source) Unspecified injury of left foot, initial encounter; Translations: [Injury of toe on left foot, initial encounter] Onset: 5 Episodic Other nervous system disorders (20 sources) Plantar nerve lesion; 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, unspecified lower limb] Onset: 1 05-04-2010 Chronic Other nervous system disorders (1 source) Other acute postprocedural pain; Translations: [Other acute postprocedural pain] Onset: 5 Episodic Other upper respiratory infections (20 sources) Acute upper respiratory infection; Translations: [Acute upper respiratory infection, unspecified] 05-09-2023 Episodic Peritonitis and intestinal abscess (2 sources) Infectious disease of abdomen; Translations: [Peritonitis, unspecified] Onset: 5 12-14-2024 Episodic Phlebitis; thrombophlebitis and thromboembolism (20 sources) H/O: Deep vein thrombosis; Translations: [Personal history of other venous thrombosis and embolism] Onset: 5 05-03-2022 Episodic Residual codes; unclassified (20 sources) Family [...] [Encounter for other specified surgical aftercare] Onset: 7 07-31-2016 Unclassified (1 source) Established Patient Onset: Unclassified (2 sources) Patient encounter status Unclassified (2 sources) R11.0 - Nausea,K21.9 - Gastro-esophageal reflux disease without esophagitis,Z12.11 - Encounter for screening for malignant neoplasm of colon Varicose veins of lower extremity (20 sources) Varicose veins of lower extremity; Translations: [Asymptomatic varicose veins of unspecified lower extremity] 04-20-2022 Episodic Comment on above: Associated with Pain . Viral infection (20 sources) Disease caused by 2019-nCoV; Translations: [COVID-19] 05-12-2021 Episodic Past or Other Problems Problem Classification Problem Date Documented Da te Episodic/Chronic Abdominal hernia (13 sources) Incisional hernia; Translations: [Incisional hernia without obstruction or gangrene] Onset: 03-24-2008 Resolved: 07-19-2009 07-19-2009 Episodic Abdominal pain (12 sources) Abdominal pain; Translations: [Unspecified abdominal pain] Onset: 04-08-2024 03-21-2024 Episodic Acquired foot deformities (13 sources) Bunion; Translations: [Bunion of unspecified foot] Onset: 02-27-2006 Resolved: 07-19-2009 07-19-2009 Episodic Calculus of urinary tract (20 sources) Urinary bladder stone; Translations: [Calculus in bladder] Onset: 10-20-2024 03-21-2020 Episodic Fracture of lower limb (17 sources) Displaced fracture of proximal phalanx of right lesser toe(s), initial encounter for closed fracture; Translations: [Stress fracture of metatarsal bone] Onset: 08-05-2006 Resolved: 07-19-2009 12-10-2016 Episodic Genitourinary symptoms and ill-defined conditions (20 sources) Dysuria; Translations: [Dysuria] Onset: 06-10-2024 Episodic Nonspecific chest pain (12 sources) Chest pain; Translations: [Chest pain, unspecified] [...] 07-05-2016 07-05-2016 Episodic Other connective tissue disease (13 sources) Pain in limb; Translations: [Pain in unspecified limb] Onset: 08-05-2006 Resolved: 07-19-2009 07-19-2009 Episodic Other connective tissue disease (13 sources) Enthesopathy; Translations: [Enthesopathy, unspecified] Onset: 10-09-2006 Resolved: 07-19-2009 07-19-2009 Episodic Other injuries and conditions due to external causes (1 source) Injury, unspecified, initial encounter; Translations: [Injury, unspecified, initial encounter] Onset: 06-10-2024 Episodic Other non-traumatic joint disorders (5 sources) Knee pain; Translations: [Pain in unspecified knee] Onset: 10-29-2016 10-29-2016 Episodic Sprains and strains (20 sources) Strain of unspecified muscle(s) and tendon(s) at lower leg level, unspecified leg, initial encounter; Translations: [Sprain of foot] Onset: 08-04-2009 10-29-2016 Episodic Unclassified (2 sources) Pain; Translations: [Pain, unspecified] Onset: 12-10-2016 12-10-2016 Episodic Unclassified (1 source) Injury of toe of left foot 12-08-2024 Urinary tract infections (19 sources) Urinary tract infection, site not specified; Translations: [Urinary tract infection, site not specified] Onset: 07-15-2024 Episodic Results Test Name Value Interpretation Reference Range Facility Gastroenterology Visit Repor ton 03-04-2025 Gastroenterology Visit Report [facility] Gastroenterology [address] [place] [address] OFFICE VISIT Date of Service: 03/04/25 MR#: [id number] Acct: [id number] Name: KAROLINA AHN Rep #: [id number] : 1965 Provider: KINGS Hoffman Age/Sex: 59/F Location: [facility] [place] Status: Signed Intake Vital Signs 01/04/25 16:12 Height 5 ft 4 in Intake Visit Reasons: NAUSEA GERD PRE COLONOSCOPY 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 Accompanied by: Is patient in pain?: No Allergies hydrocodone (From Vicodin) Allergy (Verified 03/04/25 09:38) Nausea/Vom/Diarrhea Medications ???Medication ???Instructions ???Recorded ???Confirmed ???Type sertraline 100 mg tablet 50 mg PO BID anxiety 03/30/1410/21 History Cholecalciferol (Vitamin D3) 5,000 unit PO DAILY supplement 01/1603/04/25 History [Vitamin D3] cyanocobalamin (vitamin B-12) 3,000 mcg PO DAILY supplement 01/1603/04/25 History 5,000 mcg disintegrating tablet omeprazole 20 mg tablet,delayed 20 mg PO QHS reflux 03/07/2003/04 History release pitavastatin calcium 2 mg tablet 4 mg PO QPM cholesterol 02/08/22 1 05/04/24 History (Livalo) dicyclomine 20 mg tablet 20 mg PO BID IBS 10/02/22 03/04/25 History ferrous sulfate 137 mg (45 mg 137 mg PO DAILY 01/04/25 03/04/25 History iron) tablet,extended release (Slow Fe) acetaminophen 325 mg tablet 650 mg (2 x 325 mg) PO Q6H PRN PRN 01/06/25 03/04/25 Rx Pain 1-10 Or Fever >100.7 #0 tabs enoxaparin 60 mg/0.6 mL 60 mg (0.6 mL) subcut Q12H 30 days 01/21/25 03/04/25 Rx subcutaneous syringe (Lovenox) #36 mL magnesium glycinate 100 mg (as 200 mg PO BID 03/04/25 03/04/25 Hi story glycinate) tablet PFSH Medical History GERD (gastroesophageal reflux disease) DVT (deep venous thrombosis) Loss of hearing Wears glasses Arthritis Bladder disease Restless legs Difficulty swallowing Gastric reflux Non-smoker [...] Never smoker alcohol intake: never HPI HPI Chief Complaint: Constipation Details: KAROLINA AHN, is a 59 F who presents to the office today for establishment. Colonoscopy 02/09/22 - Preparation of the colon was poor. - Hemorrhoids found on perianal exam. - Diverticulosis in the sigmoid colon. - Stool in the proximal transverse colon and in the ascending colon. - No specimens collected. Patient here today to be scheduled for a screening colonoscopy. Patient's last colonoscopy was in 2021 and was told she needed to repeat due to poor prep however she has not had this done yet. Patient has chronic constipation with a bowel movement every 3 days and sometimes longer. In the past she has tried stool softeners which have not helped. Endorses a family history of colon cancer. Patient also having nausea, difficulty swallowing and globus sensation over the past few months. She has episodes of dysphagia when eating meats and rice. She has had to regurgitate her food on a few occasions. In the past she has been on omeprazole but is not currently taking. ROS Const Constitutional: No fatigue, fever(s) or weight change Gastro GI: Positive for constipation, heartburn, nausea/dyspepsia and vomiting (sometimes); No abdominal pain, belching, bloating, change in bowel habits, change in stool character, coffee ground emesis, cramping, diarrhea, feeling full early, excessive flatus, incontinent of stools, Vomiting blood/hematemesis, Blood in stool, loose stools, Black,tarry stools, pain with swallowing or other Musc Musculoskeletal: Positive for restless legs; No joint pain Skin Skin: No yellowing of the eye or itchy eyes Neuro Neurology: Positive for restless legs Psych Psychiatric: Positive for anxiety and No depression Endo Endocrine: No fatigue or weight change Aller/Imm Allergy/Immunologic: No itchy eyes Fito/Lymp Hematologic/Lymphatic : Positive for easy bruising; No easy bleeding Exam Const General: cooperative, healthy appearing and comfortable Nutritional Appearance: average body habitus (more content not included)... Normal [facility] CBC, Employeeon 02-09-2025 Absolute Lymph 1.08 X10 3/uL Normal 0.83-4.51 [facility] Comment on above: Order Comment: SEND HGB TO Performed By: #### L 100.9950, L100.0100, L503.6030, [id number] #### [facility] [address] [place], [address] Absolute Neut 2.1 X10 3/uL Normal 2.0-7.7 [facility] Comment on above: Order Comment: SEND HGB TO Performed By: #### L 100.9950, L100.0100, L503.6030, [id number] #### [facility] [address] [place], [address] Basophils/100 WBC (Bld) 1.0 % Normal 0-1 [facility] Comment on above: Order Comment: SEND HGB TO Performed By: #### L 100.9950, L100.0100, [id number], [id number] #### [facility] [address] [place], [address] Eosinophils/100 WBC (Bld) 9.6 % High 0-5 [facility] Comment on above: Order Comment: SEND HGB TO Performed By: #### L 100.9950, L100.0100, L503.6030, [id number] #### [facility] [address] [place], [address] Erythrocyte distribution width (RBC) [Ratio] 13.3 % Normal 11.6-14.6 [facility] Comment on above: Order Comment: SEND HGB TO Performed By: #### L 100.9950, L100.0100, L503.6030, [id number] #### [facility] [address] [place], [address] Hematocrit (Bld) [Volume fraction] 34.5 % Low 37-47 [facility] Comment on above: Order Comment: SEND HGB TO Performed By: #### L 100.9950, L100.0100, L503.6030, [id number] #### [facility] [address] [place], [address] Hemoglobin (Bld) [Mass/Vol] 10.6 g/dL Low 12.0-15.0 [facility] Comment on above: Order Comment: SEND HGB TO Performed By: #### L 100.9950, L100.0100, L503.6030, [id number] #### [facility] [address] [place], [address] Lymphocytes/100 WBC (Bld) 27.3 % Normal 19-41 [facility] Comment on above: Order Comment: SEND HGB TO Performed By: #### L 100.9950, L100.0100, L503.6030, [id number] #### [facility] [address] [place], [address] MCH (RBC) [Entitic mass] 26.4 pg Low 27.0-32.0 [facility] Comment on above: Order Comment: SEND HGB TO Performed By: #### L 100.9950, L100.0100, L503.6030, [id number] #### [facility] [address] [place], [address] MCHC (RBC) [Mass/Vol] 30.7 g/dL Low 32-36 [facility] Comment on above: Order Comment: SEND HGB TO Performed By: #### L 100.9950, L100.0100, L503.6030, [id number] #### [facility] [address] [place], [address] MCV (RBC) [Entitic vol] 85.8 fL Normal 81-99 [facility] Comment on above: Order Comment: SEND HGB TO Performed By: #### L 100.9950, L100.0100, L503.6030, L503.6550 #### [facility] [address] [place], [address] Monocytes/100 WBC (Bld) 10.1 % High 0-10 [facility] Comment on above: Order Comment: SEND HGB TO Performed By: #### L 100.9950, L100.0100, L503.6030, L503.6550 #### [facility] [address] [place], [address] Neutrophils/100 WBC (Bld) 51.7 % Normal 47-70 [facility] Comment on above: Order Comment: SEND HGB TO Performed By: #### L 100.9950, L100.0100, L503.6030, L503.6550 #### [facility] [address] [place], [address] NRBC # 0.00 10 3/uL Normal 0-5 [facility] Comment on above: Order Comment: SEND HGB TO Performed By: #### L 100.9950, L100.0100, L503.6030, L503.6550 #### [facility] [address] [place], [address] Nucleated RBC (Bld) [#/Vol] 0 10*3/uL Normal 0-5 [facility] Comment on above: Order Comment: SEND HGB TO Performed By: #### L 100.9950, L100.0100, L503.6030, L503.6550 #### [facility] [address] [place], [address] Platelet mean volume (Bld) [Entitic vol] 9.7 fL Normal 6.2-12.0 [facility] Comment on above: Order Comment: SEND HGB TO Performed By: #### L 100.9950, L100.0100, L503.6030, L503.6550 #### [facility] [address] [place], [address] Platelets (Bld) [#/Vol] 277 10*3/uL Normal 150-450 [facility] Comment on above: Order Comment: SEND HGB TO Performed By: #### L 100.9950, L100.0100, L503.6030, L503.6550 #### [facility] [address] [place], [address] RBC (Bld) [#/Vol] 4.02 10*6/uL Low 4.2-5.4 [facility] Comment on above: Order Comment: SEND HGB TO Performed By: #### L 100.9950, L100.0100, L503.6030, L503.6550 #### [facility] [address] [place], [address] RDW SD 41.6 fl Normal 35.1-43.9 [facility] Comment on above: Order Comment: SEND HGB TO Performed By: #### L 100.9950, L100.0100, L503.6030, L503.6550 #### [facility] [address] [place], [address] WBC (Bld) [#/Vol] 4.0 10*3/uL Low 4.4-11.0 [facility] Comment on above: Order Comment: SEND HGB TO Performed By: #### L 100.9950, L100.0100, L503.6030, L503.6550 #### [facility] [address] [place], [address] Employee Profileon 5 LDH 168 U/L Normal 84-246 [facility] Comment on above: Performed By: #### L 100.9950, L100.0100, L503.6030, L503.6550 #### [facility] [address] [place], [address] Phosphate [Mass/Vol] 3.5 mg/dL Normal 2.7-4.[address] [facility] Comment on above: Performed By: #### L 100.9950, L100.0100, L503.6030, L503.6550 #### [facility] [address] [place], [address] URIC 2.7 mg/dL Normal 2.6-6.0 [facility] Comment on above: Result Comment: The drugs N-Acetylcysteine and Metamizole may falsely depress this assay. Performed By: #### L 100.9950, L100.0100, L503.6030, L503.6550 #### [facility] [address] [place], [address] Urinalysis, Employeeon 02-09 BILIRUBIN URINE Negative Normal Negative [facility] Comment on above: Order Comment: Urine , Random Performed By: #### L 100.9950, L100.0100, L503.6030, L503.6550 #### [facility] [address] [place], [address] Clarity (U) Clear Normal Clear [facility] Comment on above: Order Comment: Urine , Random Performed By: #### L 100.9950, L100.0100, L503.6030, L503.6550 #### [facility] [address] [place], [address] Color (U) Yellow Normal Yellow [facility] Comment on above: Order Comment: Urine , Random Performed By: #### L 100.9950, L100.0100, L503.6030, L503.6550 #### [facility] [address] [place], [address] GLUCOSE, UR Normal Normal Normal [facility] Comment on above: Order Comment: Urine , Random Performed By: #### L 100.9950, L100.0100, L503.6030, L503.6550 #### [facility] [address] [place], [address] KETONE UR Negative Normal Negative [facility] Comment on above: Order Comment: Urine , Random Performed By: #### L 100.9950, L100.0100, L503.6030, L503.6550 #### [facility] [address] [place], [address] LEUK ESTERASE 500 /ul Abnormal Negative [facility] Comment on above: Order Comment: Urine , Random Performed By: #### L 100.9950, L100.0100, L503.6030, L503.6550 #### [facility] [address] [place], [address] Nitrite Ql (U) Negative Normal Negative [facility] Comment on above: Order Comment: Urine , Random Performed By: #### L 100.9950, L100.0100, L503.6030, L503.6550 #### [facility] [address] [place], [address] OCCULT BLOOD-UR Negative Normal Negative [facility] Comment on above: Order Comment: Urine , Random Performed By: #### L 100.9950, L100.0100, L503.6030, L503.6550 #### [facility] [address] [place], [address] pH UR 6.0 Normal 5.0 - 8.0 [facility] Comment on above: Order Comment: Urine , Random Performed By: #### L 100.9950, L100.0100, L503.6030, L503.6550 #### [facility] [address] [place], [address] PROT DIPSTX 15 mg/dl Abnormal Negative [facility] Comment on above: Order Comment: Urine , Random Performed By: #### L 100.9950, L100.0100, L503.6030, L503.6550 #### [facility] [address] [place], [address] SP.GR. DIPSTX 1.015 Normal 1.002-1.030 [facility] Comment on above: Order Comment: Urine , Random Performed By: #### L 100.9950, L100.0100, L503.6030, L503.6550 #### [facility] [address] [place], [address] UROBILI Normal Normal Normal [facility] Comment on above: Order Comment: Urine , Random Performed By: #### L 100.9950, L100.0100, L503.6074, L503.6550 #### [facility] [address] [place], [place], [address] MR/BMSRed 01-20-2025 MR/BMS.BVS [facility] [address] [place] [address] OFFICE VISIT Date of Service: 01/21/25 MR#: [id number] Acct: [id number] Name: KAROLINA AHN Rep #: [id number] : 1965 Provider: KINGS Sidhu Age/Sex: 59/F Location: [facility] Status: Signed Intake Vital Signs 01/04/25 16:12 Height 5 ft 4 in Intake Visit Reasons: 1 WK FU Chief Complaint: CONCERNS FOR SINUS INFECTION Allergies hydrocodone (From Vicodin) Allergy (Verified 01/13/25 14:09) Nausea/Vom/Diarrhea PFSH Medical History (Updated 01/21/25 @ 12:49 by KINGS Sidhu) GERD (gastroesophageal reflux disease) DVT (deep venous thrombosis) Loss of hearing Wears glasses Arthritis Bladder disease Restless legs Difficulty swallowing Gastric reflux Non-smoker [...] who presents to the office today for 1 week surgical site check. Recall she is s/p percutaneous mechanical thrombectomy the left common and external iliac veins and angioplasty bilateral common iliac veins, left external iliac vein on 01/05/25. At last OV, sutures from b/l popliteal fossa access sites were removed; there were signs of cellulitis at the L access site so she was initiated on Bactrim and Keflex. She had updated labs last week as well which demonstrated normal WBC, Hgb stable/improving at 9.7. She reports the redness around the L popliteal fossa site started to improve significantly about 24 hours after suture was removed/antibiotics started. The area is less swollen and feels much better. She needs Lovenox refills. She needs Zofran refill; she is still having intermittent persistent nausea, sometimes with associated burning like heartburn but not always, no clear associated with eating, does not improve with antacids, she does take omeprazole daily, she is not currently taking any pain medications. She is overdue for screening colonoscopy as well; no history of gastric ulcers, no melanotic stools. Exam Const General: cooperative, healthy appearing, comfortable and no acute distress Orientation: alert, awake and oriented x3 HENMT Head: normocephalic and atraumatic Ears: hearing grossly normal bilaterally Eyes General: appearance normal, both eyes and all related structures Resp Effort Inspection: able to speak in complete sentences, no grunting, not labored, no respiratory distress and no retractions Skin Other: L popliteal fossa with only very small area of residual mild erythema without fluctuance/induration /excess warmth or tenderness to palpation. Skin is healed, no drainage. Psych Appearance: grossly normal Affect: normal affect Speech and Movement: speech and movement normal Attitude: cooperative Coding Level of Care Code No Charge Diagnoses Obstruction of iliac vein I87.1 Acute deep vein thrombosis (DVT) of iliac vein of left lower extremity I82.422 DVT location: lower extremity Affected thrombotic vein of extremity: iliac Chronicity: acute Laterality: left Assessment and Plan Assessment and Plan (1) Obstruction of iliac vein: Status: Acute (2) DVT (deep venous thrombosis): Status: Acute Qualifiers: DVT location: lower extremity Affected thrombotic vein of extremity: iliac Chronicity: acute Laterality: left Qualified Code(s): I82.422 - Acute embolism and thrombosis of left iliac vein Orders: Referrals Gastroenterology K21.9 - Gastro-esophageal reflux disease without esophagitis, R11.0 - Nausea, Z12.11 - Encounter for screening for malignant neoplasm of colon Medications: Changed From sulfamethoxazole-trim ethoprim 800-160 mg (Bactrim DS) 1 TAB PO BID 7 days 14 tabs 0RF To sulfamethoxazole-trim ethoprim 800-160 mg (Bactrim DS) 1 TAB PO BID 10 tabs 0RF 5 days Refilled ondansetron HCl 4 mg PO BID PRN PRN 10 tabs 0RF nausea/vomiting 5 days enoxaparin (Lovenox) 60 mg (0.6 mL) subcut Q12H 36 mL 1RF 30 days Plan Will send 5 more days of Bactrim due to mild residual erythema but overall L popliteal fossa access site is much improved in appea (more content not included)... Normal [facility] Absolute lymphocyte countOrd ered By: Jimbo Dash on 01-13-2025 Lymphocytes Auto (Unsp spec) [#/Vol] 1.18 10*3/uL 0.83-4.51 [facility] Absolute neutrophil countOrd ered By: Jimbo Dash on 01-13-2025 Neutrophils (Bld) [#/Vol] 3.2 10*3/uL 2.0-7.7 [facility] Automated blood erythrocyte countOrdered By: Jimbo Dash on 01-13-2025 RBC (Bld) [#/Vol] 3.44 10*6/uL Low 4.2-5.4 [facility] Comment on above: Performed By: #### L 100.9950, L100.0100, L503.6030, L503.6550 #### [facility] [address] [place], [place], [address] Automated blood hematocrit ( percentage)Ordered By: Jimbo Dash on 01-13-2025 Hematocrit (Bld) [Volume fraction] 31.5 % Low 37-47 [facility] Comment on above: Performed By: #### L 100.9950, L100.0100, L503.6030, L503.6550 #### [facility] [address] [place], [address] Automated lymphocyte count a s percentage of total leukocytesOrdered By: Jimbo Dash on 01-13-2025 Lymphocytes/100 WBC Auto (Unsp spec) 22.6 % [facility] Basophil percentageOrdered B y: Jimbo Dash on 01-13-2025 Basophils/100 WBC (Bld) 0.8 % Normal 0-1 [facility] Comment on above: Performed By: #### L 100.9950, L100.0100, L503.6030, L503.6550 #### [facility] [address] [place], [address] CBC W/Diff, Automatedon 12-28 Absolute Lymph 1.18 X10 3/uL Normal 0.83-4.51 [facility] Comment on above: Performed By: #### L 100.9950, L100.0100, L503.6030, L503.6550 #### [facility] [address] [place], [address] Absolute Neut 3.2 X10 3/uL Normal 2.0-7.7 [facility] Comment on above: Performed By: #### L 100.9950, L100.0100, L503.6030, L503.6550 #### [facility] [address] [place], [address] IG% 0.200 Normal 0.0-0.9 [facility] Comment on above: Result Comment: IG% - Immature Granulocytes (promyelocytes, myelocytes and metamyelocytes) > 1% indicates that a LEFT SHIFT is Present. Performed By: #### L 100.9950, L100.0100, L503.6030, L503.6550 #### [facility] [address] [place], [address] Lymphocytes/100 WBC (Bld) 22.6 % Normal [facility] Comment on above: Performed By: #### L 100.9950, L100.0100, L503.6030, L503.6550 #### [facility] [address] [place], [address] Nucleated RBC (Bld) [#/Vol] 0 10*3/uL Normal 0-5 [facility] Comment on above: Performed By: #### L 100.9950, L100.0100, L503.6030, L503.6550 #### [facility] [address] [place], [address] RDW SD 44.3 fl High 35.1-43.9 [facility] Comment on above: Performed By: #### L 100.9950, L100.0100, L503.6030, L503.6550 #### [facility] [address] [place], [address] Eosinophil percentageOrdered By: Jimbo Dash on 01-13-2025 Eosinophils/100 WBC (Bld) 5.9 % High 0-5 [facility] Comment on above: Performed By: #### L 100.9950, L100.0100, L503.6030, L503.6550 #### [facility] [address] [place], [address] Erythrocyte distribution wid th ratioOrdered By: Jimbo Dash on 01-13-2025 Erythrocyte distribution width (RBC) [Ratio] 13.2 % Normal 11.6-14.6 [facility] Comment on above: Performed By: #### L 100.9950, L100.0100, L503.6030, L503.6550 #### [facility] [address] [place], [address] Erythrocyte distribution wid th standard deviationOrdered By: Jimbo Dash on 01-13-2025 Erythrocyte distribution width (RBC) [Ratio] 44.3 fl High 35.1-43.9 [facility] Ferritinon 01-13-2025 Ferritin [Mass/Vol] 25 ng/mL Normal 22-378 [facility] Comment on above: Performed By: #### L 100.9950, L100.0100, L503.6030, L503.6550 #### [facility] [address] [place], [address] Hemoglobin measurementOrdere d By: Jimbo Dash on 01-13-2025 Hemoglobin (Bld) [Mass/Vol] 9.7 g/dL Low 12.0-15.0 [facility] Comment on above: Performed By: #### L 100.9950, L100.0100, L503.6030, L503.6550 #### [facility] [address] [place], [address] Immature granulocytes/100 WB C Auto (Bld)Ordered By: Jimbo Dash on 01-13-2025 Immature granulocytes/100 WBC (Bld) 0.200 % 0.0-0.9 [facility] Comment on above: IG% - Immature Granu locytes (promyelocytes, myelocytes and metamyelocytes) > 1% indicates that a LEFT SHIFT is Present. Iron measurement (mass/mass) Ordered By: Jimbo Dash on 01-13-2025 Iron (Unsp spec) [Mass/Mass] 18 ug/dL Low 50-170 [facility] Iron+Iron Binding Capacityon 01-13-2025 Iron [Mass/Vol] 18 ug/dL Low 50-170 [facility] Comment on above: Performed By: #### L 100.9950, L100.0100, L503.6030, L503.6550 #### [facility] [address] [place], [address] IRON SATURATION 4.7 Low 13-59 [facility] Comment on above: Performed By: #### L 100.9950, L100.0100, L503.6030, L503.6550 #### [facility] [address] [place], [address] TIBC 388 ug/dL Normal 250-450 [facility] Comment on above: Performed By: #### L 100.9950, L100.0100, L503.6030, L503.6550 #### [facility] [address] [place], [address] UIBC 370 ug/dL Normal 228-428 [facility] Comment on above: Performed By: #### L 100.9950, L100.0100, L503.6030, L503.6550 #### [facility] [address] [place], [address] MCV (mean corpuscular volume ) determinationOrdered By: Jimbo Dash on 01-13-2025 MCV (RBC) [Entitic vol] 91.6 fL Normal 81-99 [facility] Comment on above: Performed By: #### L 100.9950, L100.0100, L503.6030, L503.6550 #### [facility] [address] [place], [address] MR/BMS.Juan Daniel 01-13-2025 MR/BMS.S [facility] Surgery [address] [place] [address] OFFICE VISIT Date of Service: 01/13/25 MR#: [id number] Acct: [id number] Name: KAROLINA AHN Rep #: [id number] : 1965 Provider: KINGS Sidhu Age/Sex: 59/F Location: [facility] Status: Signed Intake Vital Signs 01/04/25 16:12 01/13/25 14:08 Height 5 ft 4 in BP 108/67 Blood Pressure Location Lt radial Position Sitting Respiration 16 Pulse 74 Pulse Source Monitor Temp 97.8 F Temp Source Temporal Pulse Oximetry (%) 98 Oxygen Delivery Method room air Intake Visit Reasons: post op Is patient in pain?: Yes Allergies hydrocodone (From Vicodin) Allergy (Verified 01/13/25 14:09) Nausea/Vom/Diarrhea Medications ???Medication ???Instructions ???Recorded ???Confirmed ???Type sertraline 100 mg tablet 50 mg PO BID anxiety 03/30/1412/28 History Cholecalciferol (Vitamin D3) 5,000 unit PO DAILY supplement 01/1601/13/25 History [Vitamin D3] cyanocobalamin (vitamin B-12) 3,000 mcg PO DAILY supplement 11/0 01/1601/13/25 History 5,000 mcg disintegrating tablet omeprazole 20 mg tablet,delayed 20 mg PO QHS reflux 03/07/2001/13 History release pitavastatin calcium 2 mg tablet 4 mg PO QPM cholesterol 02/08/22 0 01/13/25 History (Livalo) cetirizine 10 mg capsule (Zyrtec) 10 mg PO DAILY allergies 04/12/22 01/13/25 History dicyclomine 20 mg tablet 20 mg PO BID IBS 10/02/22 01/13/25 History tizanidine 2 mg tablet 2 mg PO QHS PRN muscle spasticity 12/10/23 01/13/25 Rx #14 tabs enoxaparin 60 mg/0.6 mL 60 mg (0.6 mL) subcut Q12H 30 days 12/28/24 01/13/25 Rx subcutaneous syringe (Lovenox) #36 mL ferrous sulfate 137 mg (45 mg 137 mg PO DAILY 01/04/25 01/13/25 History iron) tablet,extended release (Slow Fe) acetaminophen 325 mg tablet 650 mg (2 x 325 mg) PO Q6H PRN PRN 01/06/25 01/13/25 Rx Pain 1-10 Or Fever >100.7 #0 tabs clopidogrel 75 mg tablet 75 mg PO DAILY #90 tabs 01/06/25 0 01/13/25 Rx ondansetron HCl 4 mg tablet 4 mg PO BID PRN PRN 01/06/2501/13 Rx nausea/vomiting 5 days #10 tabs oxycodone 5 mg tablet 5 mg PO Q8H PRN PRN Pain Score 02/2001/13/25 Rx 4-10 5 days #15 tabs cephalexin 500 mg capsule 500 mg PO TID 7 days #21 caps 12/28 11/20 Rx sulfamethoxazole 800 1 tab PO BID 7 days #14 tabs 01/13 Rx mg-trimethoprim 160 mg tablet (Bactrim DS) Is last menstrual period known: No Post menopausal: Yes Patient : No Have you fallen in the past year?: No PFSH Medical History (Updated 01/14/25 @ 07:36 by KINGS Sidhu) DVT (deep venous thrombosis) GERD (gastroesophageal reflux disease) Loss of hearing Wears glasses Arthritis Bladder disease Restless legs Difficulty swallowing Gastric reflux Non-smoker [...] who presents to the office today for follow-up and suture removal s/p percutaneous mechanical thrombectomy the left common and external iliac veins and angioplasty bilateral common iliac veins, left external iliac vein on 01/05/25. She reports that 1-2 days ago she started noticing increased redness and discomfort at the L popliteal access site. She has not noticed any drainage. No other constitutional symptoms. No issues at the R popliteal access site. Otherwise, her LLE is feeling better with much improved swelling. She continues to tolerate Lovenox and Plavix. She is due for repeat labs to monitor Hgb, reports she will get this drawn when she sees her PCP later today. ROS General General: Yes fatigue and weakness; No weight change, appetite, colon cancer or breast cancer HEENT HEENT: No difficulty swallowing, eye injury, eye surgery, swollen glands or hoarseness Endo Endocrine: No thyroid disease, diabetes mellitus, thyroid cancer, Hair loss, heat intolerance or cold intolerance Skin Skin: No rash or changing moles Musc Musculoskeletal: No back problems, arthritis, rheumatoid arthritis, gout or joint pain Cardio Car (more content not included)... Normal [facility] Mean corpuscular hemoglobin (MCH) determinationOrdered By: Jimbo Dash on 01-13-2025 MCH (RBC) [Entitic mass] 28.2 pg Normal 27.0-32.0 [facility] Comment on above: Performed By: #### L 100.9950, L100.0100, L503.6030, L503.6550 #### [facility] [address] [place], [address] Mean corpuscular hemoglobin concentration (MCHC) determinationOrdered By: Jimbo Dash on 01-13-2025 MCHC (RBC) [Mass/Vol] 30.8 g/dL Low 32-36 [facility] Comment on above: Performed By: #### L 100.9950, L100.0100, L503.6030, L503.6550 #### [facility] [address] [place], [address] Mean platelet volume determi nationOrdered By: Jimbo Dash on 01-13-2025 Platelet mean volume (Bld) [Entitic vol] 10.1 fL Normal 6.2-12.0 [facility] Comment on above: Performed By: #### L 100.9950, L100.0100, L503.6030, L503.6550 #### [facility] [address] [place], [address] Monocyte percentageOrdered B y: Jimbo Dash on 01-13-2025 Monocytes/100 WBC (Bld) 9.2 % Normal 0-10 [facility] Comment on above: Performed By: #### L 100.9950, L100.0100, L503.6030, L503.6550 #### [facility] [address] [place], [address] Neutrophil percentageOrdered By: Jimbo Dash on 01-13-2025 Neutrophils/100 WBC (Bld) 61.3 % Normal 47-70 [facility] Comment on above: Performed By: #### L 100.9950, L100.0100, L503.6030, L503.6550 #### [facility] [address] [place], [address] No Panel InformationOrdered By: Jimbo Dash on 01-13-2025 Unsaturated Iron Binding Capacity 370 ug/dL 228-428 [facility] Nucleated red blood cell per centageOrdered By: Jimbo Dash on 01-13-2025 Nucleated RBC/100 WBC (Bld) [Ratio] 0 % 0-5 [facility] Platelet countOrdered By: Kings Dash on 01-13-2025 Platelets (Bld) [#/Vol] 347 10*3/uL Normal 150-450 [facility] Comment on above: Performed By: #### L 100.9950, L100.0100, L503.6030, L503.6550 #### [facility] [address] [place], [address] Retic Panelon 01-13-2025 IM RET FRACTION 28.50 High 3.00-15.90 [facility] Comment on above: Performed By: #### L 100.9950, L100.0100, L503.6030, L503.6550 #### [facility] [address] [place], [address] RET-HE 23.7 pg Low 30-35 [facility] Comment on above: Performed By: #### L 100.9950, L100.0100, L503.6030, L503.6550 #### [facility] [address] [place], [address] Retic Count 2.98 High 0.5-1.5 [facility] Comment on above: Performed By: #### L 100.9950, L100.0100, L503.6030, L503.6550 #### [facility] [address] [place], [address] Reticulocyte hemoglobin equi valent (RET-He) measurementOrdered By: Jimbo Dash on 01-13-2025 Hemoglobin (Reticulocytes) [Entitic mass] 23.7 pg Low 30-35 [facility] Reticulocytes Auto (Bld) [#/ Vol]Ordered By: Jimbo Dash on 09-17-2025 Reticulocytes/100 RBC (Bld) 2.98 % High 0.5-1.5 [facility] Serum or plasma ferritin brittaney surement (mass/volume)Ordered By: Jimbo Dash on 01-13-2025 Ferritin [Mass/Vol] 25 ng/mL 22-378 [facility] Serum or plasma iron saturat ion measurement (mass fraction)Ordered By: Jimbo Dash on 01-13-2025 Iron saturation [Mass fraction] 4.7 % Low 13-59 [facility] White blood cell (WBC) count Ordered By: Jimbo Dash on 01-13-2025 WBC (Bld) [#/Vol] 5.2 10*3/uL Normal 4.4-11.0 [facility] Comment on above: Performed By: #### L 100.9950, L100.0100, L503.6030, L503.6550 #### [facility] [address] [place], [place], [id number] Activated partial thrombopla stin time (aPTT) in platelet poor plasma by coagulation aOrdered By: Reji Goldberg on 01-06-2025 aPTT Coag (PPP) [Time] 59.3 s High 24.1-36.2 [facility] Anion gap in Serum or Plasma Ordered By: Reji Goldberg on 01-06-2025 Anion gap [Moles/Vol] 9 mmol/L 5-15 [facility] BUN/creatinine ratioOrdered By: Reji Goldberg on 01-06-2025 Urea nitrogen/Creatinine [Mass ratio] 25.1 mg/mg High 10-20 [facility] Basic Metabolic Profile (BMP )on 01-06-2025 BUN/CRE 25.1 RATIO High 10 [facility] Comment on above: Performed By: #### L 500.2500, L100.0500 #### [facility] [address] [place], [place], [id number] Calcium [Mass/Vol] 8.8 mg/dL Normal 7.6-11.0 [facility] Comment on above: Performed By: #### L 500.2500, L100.0500 #### [facility] [address] [place], [address] Chloride [Moles/Vol] 108 mmol/L Normal 98-[address] [facility] Comment on above: Performed By: #### L 500.2500, L100.0500 #### [facility] [address] [place], [address] CO2 [Moles/Vol] 22.2 mmol/L Normal 21.0-32.0 [facility] Comment on above: Performed By: #### L 500.2500, L100.0500 #### [facility] [address] [place], [address] Creatinine [Mass/Vol] 0.67 mg/dL Low 0.70-1.20 [facility] Comment on above: Performed By: #### L 500.2500, L100.0500 #### [facility] [address] [place], [address] ECRCL 78.07 ml/min Normal 50-250 [facility] Comment on above: Performed By: #### L 500.2500, L100.0500 #### [facility] [address] [place], [address] GAP 9 Normal 5-15 [facility] Comment on above: Performed By: #### L 500.2500, L100.0500 #### [facility] [address] [place], [address] GFR/1.73 sq M.predicted among non-blacks MDRD (S/P/Bld) [Vol rate/Area] 100 mL/min/{1.73_m2} Normal >60 [facility] Comment on above: Result Comment: mL/m in/1.73m2 CKD-EPI Creatinine Equation (2020) Performed By: #### L 500.2500, L100.0500 #### [facility] [address] [place], [address] Glucose [Mass/Vol] 102 mg/dL High 70-99 [facility] Comment on above: Performed By: #### L 500.2500, L100.0500 #### [facility] [address] [place], [address] Potassium [Moles/Vol] 4.5 mmol/L Normal 3.3-5.1 [facility] Comment on above: Performed By: #### L 500.2500, L100.0500 #### [facility] [address] [place], [address] Sodium [Moles/Vol] 139 mmol/L Normal 133-145 [facility] Comment on above: Performed By: #### L 500.2500, L100.0500 #### [facility] [address] [place], [address] Urea nitrogen [Mass/Vol] 17 mg/dL Normal 4-19 [facility] Comment on above: Performed By: #### L 500.2500, L100.0500 #### [facility] [address] [place], [address] CBC-Complete Blood Cnt No Di ffon 01-06-2025 Erythrocyte distribution width (RBC) [Ratio] 13.3 % Normal 11.6-14.6 [facility] Comment on above: Performed By: #### L 500.2500, L100.0500 #### [facility] [address] [place], [address] Hematocrit (Bld) [Volume fraction] 28.6 % Low 37-47 [facility] Comment on above: Performed By: #### L 500.2500, L100.0500 #### [facility] [address] [place], [address] Hemoglobin (Bld) [Mass/Vol] 9.1 g/dL Low 12.0-15.0 [facility] Comment on above: Performed By: #### L 500.2500, L100.0500 #### [facility] [address] [place], [address] MCH (RBC) [Entitic mass] 29.3 pg Normal 27.0-32.0 [facility] Comment on above: Performed By: #### L 500.2500, L100.0500 #### [facility] [address] [place], [address] MCHC (RBC) [Mass/Vol] 31.8 g/dL Low 32-36 [facility] Comment on above: Performed By: #### L 500.2500, L100.0500 #### [facility] [address] [place], [address] MCV (RBC) [Entitic vol] 92.0 fL Normal 81-99 [facility] Comment on above: Performed By: #### L 500.2500, L100.0500 #### [facility] [address] [place], [address] Platelet mean volume (Bld) [Entitic vol] 9.3 fL Normal 6.2-12.0 [facility] Comment on above: Performed By: #### L 500.2500, L100.0500 #### [facility] [address] [place], [address] Platelets (Bld) [#/Vol] 220 10*3/uL Normal 150-450 [facility] Comment on above: Performed By: #### L 500.2500, L100.0500 #### [facility] [address] [place], [address] RBC (Bld) [#/Vol] 3.11 10*6/uL Low 4.2-5.4 [facility] Comment on above: Performed By: #### L 500.2500, L100.0500 #### [facility] [address] [place], [address] RDW SD 44.8 fl High 35.1-43.9 [facility] Comment on above: Performed By: #### L 500.2500, L100.0500 #### [facility] [address] [place], [address] WBC (Bld) [#/Vol] 5.1 10*3/uL Normal 4.4-11.0 [facility] Comment on above: Performed By: #### L 500.2500, L100.0500 #### [facility] [address] [place], [address] Carbon dioxide, total [Moles /volume] in Central venous bloodOrdered By: Reji Goldberg on 01-06-2025 CO2 [Moles/Vol] 22.2 mmol/L 21.0-32.0 [facility] Chloride assayOrdered By: Jaren Goldberg on 01-06-2025 Chloride [Moles/Vol] 108 mmol/L 98-[address] [facility] Erythrocyte distribution wid th ratioOrdered By: Reji Goldberg on 01-06-2025 Erythrocyte distribution width (RBC) [Ratio] 13.3 % 11.6-14.6 [facility] Erythrocyte distribution wid th standard deviationOrdered By: Reji Goldberg on 01-06-2025 Erythrocyte distribution width (RBC) [Ratio] 44.8 fl High 35.1-43.9 [facility] Glomerular filtration rate ( GFR) estimation/1.73 sq m using serum, plasma, or whole bOrdered By: Reji Goldberg on 01-06-2025 GFR/1.73 sq M.predicted among non-blacks MDRD (S/P/Bld) [Vol rate/Area] 100 mL/min/{1.73_m2} >60 [facility] Comment on above: mL/min/1.73m2 CKD-EP I Creatinine Equation (2020) Hematocrit Auto (Bld) [Volum e fraction]Ordered By: Reji Goldberg on 01-06-2025 Hematocrit (Bld) [Volume fraction] 28.6 % Low 37-47 [facility] Hemoglobin measurementOrdere d By: Reji Goldberg on 01-06-2025 Hemoglobin (Bld) [Mass/Vol] 9.1 g/dL Low 12.0-15.0 [facility] MCV (mean corpuscular volume ) determinationOrdered By: Reji Goldberg on 01-06-2025 MCV (RBC) [Entitic vol] 92.0 fL 81-99 [facility] Mean corpuscular hemoglobin (MCH) determinationOrdered By: Reji Goldberg on 01-06-2025 MCH (RBC) [Entitic mass] 29.3 pg 27.0-32.0 [facility] Mean corpuscular hemoglobin concentration (MCHC) determinationOrdered By: Reji Goldberg on 01-06-2025 MCHC (RBC) [Mass/Vol] 31.8 g/dL Low 32-36 [facility] Mean platelet volume determi nationOrdered By: Reji Goldberg on 01-06-2025 Platelet mean volume (Bld) [Entitic vol] 9.3 fL 6.2-12.0 [facility] Partial Thromboplast Timeon 01-06-2025 aPTT Coag (Bld) [Time] 59.3 s High 24.1-36.2 [facility] Comment on above: Performed By: #### L 100.9950, L100.0100, L503.6030, L503.6550 #### [facility] [address] [place], [address] Platelet countOrdered By: Jaren Goldberg on 01-06-2025 Platelets (Bld) [#/Vol] 220 10*3/uL 150-450 [facility] Potassium measurement (mass/ volume)Ordered By: Reji Goldberg on 01-06-2025 Potassium (Unsp spec) [Mass/Vol] 4.5 mmol/L 3.3-5.1 [facility] RBC Auto (Bld) [#/Vol]Ordere d By: Reji Goldberg on 01-06-2025 RBC (Bld) [#/Vol] 3.11 10*6/uL Low 4.2-5.4 [facility] Serum creatinine measurement (mass/volume)Ordered By: Reji Goldberg on 01-06-2025 Creatinine [Mass/Vol] 0.67 mg/dL Low 0.70-1.20 [facility] Serum glucose measurement (m ass/volume)Ordered By: Reji Goldberg on 01-06-2025 Glucose [Mass/Vol] 102 mg/dL High 70-99 [facility] Serum or plasma calcium cooper urement (mass/volume)Ordered By: Reji Goldberg on 01-06-2025 Calcium [Mass/Vol] 8.8 mg/dL 7.6-11.0 [facility] Serum or plasma urea nitroge n measurement (mass/volume)Ordered By: Reji Goldberg on 01-06-2025 Urea nitrogen [Mass/Vol] 17 mg/dL 4-19 [facility] Sodium levelOrdered By: Rejibenji Goldberg on 01-06-2025 Sodium [Moles/Vol] 139 mmol/L 133-145 [facility] White blood cell (WBC) count Ordered By: Reji Goldberg on 01-06-2025 WBC (Bld) [#/Vol] 5.1 10*3/uL 4.4-11.0 [facility] ACT Activated Clotting Timeo n 01-05-2025 ACTk CLOT TIME 187 sec High 74-137 [facility] Comment on above: Performed By: #### L 100.9950, L100.0100, L503.6030, L503.6550 #### [facility] [place], [address] Absolute lymphocyte countOrd ered By: Reji Goldberg on 01-05-2025 Lymphocytes Auto (Unsp spec) [#/Vol] 1.17 10*3/uL 0.83-4.51 [facility] Absolute neutrophil countOrd ered By: Reji Goldberg on 01-05-2025 Neutrophils (Bld) [#/Vol] 1.9 10*3/uL Low 2.0-7.7 [facility] Automated lymphocyte count a s percentage of total leukocytesOrdered By: Reji Goldberg on 01-05-2025 Lymphocytes/100 WBC Auto (Unsp spec) 30.5 % 19-41 [facility] Basic Metabolic Profile (BMP )on 01-05-2025 BUN/CRE 22.1 RATIO High 10-20 [facility] Comment on above: Performed By: #### L 100.9950, L100.0100, L503.6030, L503.6550 #### [facility] [address] [place], [address] Calcium [Mass/Vol] 8.9 mg/dL Normal 7.6-11.0 [facility] Comment on above: Performed By: #### L 100.9950, L100.0100, L503.6030, L503.6550 #### [facility] [address] [place], [address] Chloride [Moles/Vol] 106 mmol/L Normal 98-[address] [facility] Comment on above: Performed By: #### L 100.9950, L100.0100, L503.6030, L503.6550 #### [facility] [address] [place], [address] CO2 [Moles/Vol] 23.6 mmol/L Normal 21.0-32.0 [facility] Comment on above: Performed By: #### L 100.9950, L100.0100, L503.6030, L503.6550 #### [facility] [address] [place], [address] Creatinine [Mass/Vol] 0.85 mg/dL Normal 0.70-1.20 [facility] Comment on above: Performed By: #### L 100.9950, L100.0100, L503.6030, L503.6550 #### [facility] [address] [place], [address] ECRCL 61.54 ml/min Normal 50-250 [facility] Comment on above: Performed By: #### L 100.9950, L100.0100, L503.6030, L503.6550 #### [facility] [address] [place], [address] GAP 10 Normal 5-15 [facility] Comment on above: Performed By: #### L 100.9950, L100.0100, L503.6030, L503.6550 #### [facility] [address] [place], [address] GFR/1.73 sq M.predicted among non-blacks MDRD (S/P/Bld) [Vol rate/Area] 79 mL/min/{1.73_m2} Normal >60 [facility] Comment on above: Result Comment: mL/m in/1.73m2 CKD-EPI Creatinine Equation (2020) Performed By: #### L 100.9950, L100.0100, L503.6030, L503.6550 #### [facility] [address] [place], [address] Glucose [Mass/Vol] 92 mg/dL Normal 70-99 [facility] Comment on above: Performed By: #### L 100.9950, L100.0100, L503.6030, L503.6550 #### [facility] [address] [place], [address] Potassium [Moles/Vol] 4.0 mmol/L Normal 3.3-5.1 [facility] Comment on above: Performed By: #### L 100.9950, L100.0100, L503.6030, L503.6550 #### [facility] [address] [place], [address] Sodium [Moles/Vol] 139 mmol/L Normal 133-145 [facility] Comment on above: Performed By: #### L 100.9950, L100.0100, L503.6030, L503.6550 #### [facility] [address] [place], [address] Urea nitrogen [Mass/Vol] 19 mg/dL Normal 4-19 [facility] Comment on above: Performed By: #### L 100.9950, L100.0100, L503.6030, L503.6550 #### [facility] [address] [place], [address] Basophil percentageOrdered B y: Reji Goldberg on 01-05-2025 Basophils/100 WBC (Bld) 0.8 % 0-1 [facility] CBC W/Diff, Automatedon Absolute Lymph 1.17 X10 3/uL Normal 0.83-4.51 [facility] Comment on above: Performed By: #### L 100.9950, L100.0100, L503.6030, L503.6550 #### [facility] [address] [place], [address] Absolute Neut 1.9 X10 3/uL Low 2.0-7.7 [facility] Comment on above: Performed By: #### L 100.9950, L100.0100, L503.6030, L503.6550 #### [facility] [address] [place], [address] Basophils/100 WBC (Bld) 0.8 % Normal 0-1 [facility] Comment on above: Performed By: #### L 100.9950, L100.0100, L503.6030, L503.6550 #### [facility] [address] [place], [address] Eosinophils/100 WBC (Bld) 9.9 % High 0-5 [facility] Comment on above: Performed By: #### L 100.9950, L100.0100, L503.6030, L503.6550 #### [facility] [address] [place], [address] Erythrocyte distribution width (RBC) [Ratio] 13.3 % Normal 11.6-14.6 [facility] Comment on above: Performed By: #### L 100.9950, L100.0100, L503.6030, L503.6550 #### [facility] [address] [place], [address] Hematocrit (Bld) [Volume fraction] 33.4 % Low 37-47 [facility] Comment on above: Performed By: #### L 100.9950, L100.0100, L503.6030, L503.6550 #### [facility] [address] [place], [address] Hemoglobin (Bld) [Mass/Vol] 10.6 g/dL Low 12.0-15.0 [facility] Comment on above: Performed By: #### L 100.9950, L100.0100, L503.6030, L503.6550 #### [facility] [address] [place], [address] IG% 0.500 Normal 0.0-0.9 [facility] Comment on above: Result Comment: IG% - Immature Granulocytes (promyelocytes, myelocytes and metamyelocytes) > 1% indicates that a LEFT SHIFT is Present. Performed By: #### L 100.9950, L100.0100, L503.6030, L503.6550 #### [facility] [address] [place], [address] Lymphocytes/100 WBC (Bld) 30.5 % Normal 19-41 [facility] Comment on above: Performed By: #### L 100.9950, L100.0100, L503.6030, L503.6550 #### [facility] [address] [place], [address] MCH (RBC) [Entitic mass] 29.2 pg Normal 27.0-32.0 [facility] Comment on above: Performed By: #### L 100.9950, L100.0100, L503.6030, L503.6550 #### [facility] [address] [place], [address] MCHC (RBC) [Mass/Vol] 31.7 g/dL Low 32-36 [facility] Comment on above: Performed By: #### L 100.9950, L100.0100, L503.6030, L503.6550 #### [facility] [address] [place], [address] MCV (RBC) [Entitic vol] 92.0 fL Normal 81-99 [facility] Comment on above: Performed By: #### L 100.9950, L100.0100, L503.6030, L503.6550 #### [facility] [address] [place], [address] Monocytes/100 WBC (Bld) 8.4 % Normal 0-10 [facility] Comment on above: Performed By: #### L 100.9950, L100.0100, L503.6030, L503.6550 #### [facility] [address] [place], [address] Neutrophils/100 WBC (Bld) 49.9 % Normal 47-70 [facility] Comment on above: Performed By: #### L 100.9950, L100.0100, L503.6030, L503.6550 #### [facility] [address] [place], [address] Nucleated RBC (Bld) [#/Vol] 0 10*3/uL Normal 0-5 [facility] Comment on above: Performed By: #### L 100.9950, L100.0100, L503.6030, L503.6550 #### [facility] [address] [place], [address] Platelet mean volume (Bld) [Entitic vol] 9.3 fL Normal 6.2-12.0 [facility] Comment on above: Performed By: #### L 100.9950, L100.0100, L503.6030, L503.6550 #### [facility] [address] [place], [address] Platelets (Bld) [#/Vol] 246 10*3/uL Normal 150-450 [facility] Comment on above: Performed By: #### L 100.9950, L100.0100, L503.6030, L503.6550 #### [facility] [address] [place], [address] RBC (Bld) [#/Vol] 3.63 10*6/uL Low 4.2-5.4 [facility] Comment on above: Performed By: #### L 100.9950, L100.0100, L503.6030, L503.6550 #### [facility] [address] [place], [address] RDW SD 44.4 fl High 35.1-43.9 [facility] Comment on above: Performed By: #### L 100.9950, L100.0100, L503.6030, L503.6550 #### [facility] [address] [place], [address] WBC (Bld) [#/Vol] 3.8 10*3/uL Low 4.4-11.0 [facility] Comment on above: Performed By: #### L 100.9950, L100.0100, L503.6030, L503.6550 #### [facility] [address] [place], [address] Absolute Neut Normal 2.0-7.7 [facility] Comment on above: Result Comment: DUPL ICATE Performed By: #### L 100.9950, L100.0100, L503.6030, L503.6550 #### [facility] [address] [place], [address] HCT Normal 37-47 [facility] Comment on above: Result Comment: DUPL ICATE Performed By: #### L 100.9950, L100.0100, L503.6030, L503.6550 #### [facility] [address] [place], [address] HGB Normal 12.0-15.0 [facility] Comment on above: Result Comment: DUPL ICATE Performed By: #### L 100.9950, L100.0100, L503.6030, L503.6550 #### [facility] [address] [place], [address] MCH Normal 27.0-32.0 [facility] Comment on above: Result Comment: DUPL ICATE Performed By: #### L 100.9950, L100.0100, L503.6030, L503.6550 #### [facility] [address] [place], [address] MCHC Normal 32-36 [facility] Comment on above: Result Comment: DUPL ICATE Performed By: #### L 100.9950, L100.0100, L503.6030, L503.6550 #### [facility] [address] [place], [address] MCV Normal 81-99 [facility] Comment on above: Result Comment: DUPL ICATE Performed By: #### L 100.9950, L100.0100, L503.6030, L503.6550 #### [facility] [address] [place], [address] NEUT% Normal 47-70 [facility] Comment on above: Result Comment: DUPL ICATE Performed By: #### L 100.9950, L100.0100, L503.6030, L503.6550 #### [facility] [address] [place], [address] PLT Normal 150-450 [facility] Comment on above: Result Comment: DUPL ICATE Performed By: #### L 100.9950, L100.0100, L503.6030, L503.6550 #### [facility] [address] [place], [address] RBC Normal 4.2-5.4 [facility] Comment on above: Result Comment: DUPL ICATE Performed By: #### L 100.9950, L100.0100, L503.6030, L503.6550 #### [facility] [address] [place], [address] RDW CV Normal 11.6-14.6 [facility] Comment on above: Result Comment: DUPL ICATE Performed By: #### L 100.9950, L100.0100, L503.6030, L503.6550 #### [facility] [address] [place], [address] RDW SD Normal 35.1-43.9 [facility] Comment on above: Result Comment: DUPL ICATE Performed By: #### L 100.9950, L100.0100, L503.6030, L503.6550 #### [facility] [address] [place], [address] WBC Normal 4.4-11.0 [facility] Comment on above: Result Comment: DUPL ICATE Performed By: #### L 100.9950, L100.0100, L503.6030, L503.6550 #### [facility] [address] [place], [address] Eosinophil percentageOrdered By: Reji Goldberg on 01-05-2025 Eosinophils/100 WBC (Bld) 9.9 % High 0-5 [facility] Immature granulocytes/100 WB C Auto (Bld)Ordered By: Reji Goldberg on 01-05-2025 Immature granulocytes/100 WBC (Bld) 0.500 % 0.0-0.9 [facility] Comment on above: IG% - Immature Granu locytes (promyelocytes, myelocytes and metamyelocytes) > 1% indicates that a LEFT SHIFT is Present. Monocyte percentageOrdered B y: Reji Goldberg on 01-05-2025 Monocytes/100 WBC (Bld) 8.4 % 0-10 [facility] Neutrophil percentageOrdered By: Reji Nelsoney on 01-05-2025 Neutrophils/100 WBC (Bld) 49.9 % 47-70 [facility] Nucleated red blood cell per centageOrdered By: Reji Nelsoney on 01-05-2025 Nucleated RBC/100 WBC (Bld) [Ratio] 0 % 0-5 [facility] Operative Reporton Operative Report [facility] Medical Records Department [address] [place] [address] Operative Report 01/05/25 1456 MR#: [id number] Acct: [id number] Name: KAROLINA AHN Rep #: [id number] : 1965 59 From: Reji Goldberg MD PCP: Dr. Jimbo Dash MD Status:ADM JULIETA Location: [place] [address] Operative Report (Standard) Operative Information Date of Procedure: 01/05/25 Pre-Operative Diagnosis: Deep venous thrombosis of the left iliac and femoral veins Occluded left iliac vein stent Post-Operative Diagnosis: Same Surgery/Procedure Performed: Venogram inferior vena cava and bilateral lower extremities. 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 She initially presented several weeks prior with recurrence of her left lower extremity DVT and had a thrombectomy performed at outside facility. She had transient improvement in her symptoms with return of pain and swelling while on a trip out of state. Imaging at that time revealed recurrence of her deep vein thrombosis and she presents now for repeat efforts at thrombectomy. Description of procedure: Upon obtaining informed consent and verification correct patient procedure site the patient taken caliber she was positioned prepped and draped in usual sterile fashion. Timeout was performed and consultation ministered Versed and fentanyl. Skin overlying the left popliteal vein was anesthetized 1% lidocaine the vessel accessed under ultrasound guidance with a micropuncture needle wire. This then exchanged for a micropuncture sheath routine injection left lower extremity venogram performed revealing satisfactory positioning no extravasation of dissection. There was sluggish contrast transit but no evidence of thrombus throughout the popliteal and femoral vein. Outflow imaging revealed total occlusion of the proximal common femoral vein and external iliac vein with a significant cross pelvis collaterals emptying into the contralateral iliac system. Through the micropuncture sheath a Bentson wire advanced the micropuncture of the change for an 8 Nigerian sheath. Through the 8 Nigerian sheath a angled quick cross catheter was advanced and the Bentson exchanged for a glide advantage wire. Utilizing this we able to traverse the occluded segment entering into the iliac vein and ultimately traversing into the vena cava. The catheter is withdrawn and intravascular ultrasound probe advanced and recorded pullback performed of the IVC, left common iliac vein, left external iliac vein, left common femoral vein, left femoral vein. This revealed acute and chronic appearing thrombus in the common femoral and external iliac veins as well as within the previously placed stents. The wire traversed within the true lumen of the stent with no evidence of traversing any stent struts. There is significant compression of the superior aspect of the stent which likely contributed to her most recent thrombotic event. Given the location of the stent compression it was felt that bilateral simultaneous angioplasty would be required so skin overlying the right common femoral vein was anesthetized with 1% lidocaine the vessel accessed under ultrasound guidance with micropuncture needle wire. This then exchanged for a micropuncture sheath through which injection right lower extremity venogram was performed revealing satisfactory positioning of extravasation or dissection. This also revealed normal contrast transit through normal caliber popliteal and femoral vein with no evidence of thrombus. There was normal outflow via the common femoral vein, external vein, common iliac vein. Micropuncture sheath then exchanged for a 10 Nigerian sheath through which a Bentson wire was advanced traversing the iliac vein stent into the vena cava. The intravascular ultrasound probe was then advanced and recorded pullback performed of the IVC, right common iliac vein, right external neck vein. This confirmed position within the true lumen of the stent with no evidence of any significant in-stent stenosis or thrombus. The patient was then heparinized allowed to circulate for 3 minutes with subsequent heparin dosing based on ACT results. The left popliteal 8 Nigerian sheath then exchanged for a 16 Nigerian sheath adva (more content not included)... Normal [facility] Partial Thromboplast Timeon 01-05-2025 aPTT Coag (Bld) [Time] s Invalid Interpretation Code 24.1-36.2 [facility] Comment on above: Order Comment: Comme nts: heparin drip restarted at 1400 post thrombectomy Result Comment: CRIT ICAL VALUE CALLED TO FRANCISCO GILL 01/05/252003 Rubi Nice. RESULTS READ BACK BY SAME. RESULTS EXPECTED, PATIENT RECIEVESD BOLASES OF HEPARIN. Performed By: #### L 100.9950, L100.0100, L503.6030, L503.6550 #### [facility] Laboratory [address] [place], [address] aPTT Coag (Bld) [Time] 77.1 s High 24.1-36.2 [facility] Comment on above: Performed By: #### L 300.4310 ####[facility] [address] [place], [address] aPTT Coag (Bld) [Time] 77.5 s High 24.1-36.2 [facility] Comment on above: Performed By: #### L 300.4310 ####[facility] [address] [place], [address] Basic Metabolic Profile (BMP )on 01-04-2025 BUN/CRE 15.3 RATIO Normal 10-20 [facility] Comment on above: Performed By: #### L 500.2500, L300.3900, L100.0100, L300.4310 ####[facility] [address] [place], [address] Calcium [Mass/Vol] 9.3 mg/dL Normal 7.6-11.0 [facility] Comment on above: Performed By: #### L 500.2500, L300.3900, L100.0100, L300.4310 ####[facility] [address] [place], [address] Chloride [Moles/Vol] 105 mmol/L Normal 98-[address] [facility] Comment on above: Performed By: #### L 500.2500, L300.3900, L100.0100, L300.4310 ####[facility] [address] [place], [address] CO2 [Moles/Vol] 25.1 mmol/L Normal 21.0-32.0 [facility] Comment on above: Performed By: #### L 500.2500, L300.3900, L100.0100, L300.4310 ####[facility] [address] [place], [address] Creatinine [Mass/Vol] 1.26 mg/dL High 0.70-1.20 [facility] Comment on above: Performed By: #### L 500.2500, L300.3900, L100.0100, L300.4310 ####[facility] [address] [place], [address] ECRCL 41.51 ml/min Low 50-250 [facility] Comment on above: Performed By: #### L 500.2500, L300.3900, L100.0100, L300.4310 ####[facility] [address] [place], [address] GAP 11 Normal 5-15 [facility] Comment on above: Performed By: #### L 500.2500, L300.3900, L100.0100, L300.4310 ####[facility] [address] [place], [address] GFR/1.73 sq M.predicted among non-blacks MDRD (S/P/Bld) [Vol rate/Area] 49 mL/min/{1.73_m2} Low >60 [facility] Comment on above: Result Comment: mL/m in/1.73m2 CKD-EPI Creatinine Equation (2020) Performed By: #### L 500.2500, L300.3900, L100.0100, L300.4310 ####[facility] [address] [place], [address] Glucose [Mass/Vol] 87 mg/dL Normal 70-99 [facility] Comment on above: Performed By: #### L 500.2500, L300.3900, L100.0100, L300.4310 ####[facility] [address] [place], [address] Potassium [Moles/Vol] 4.3 mmol/L Normal 3.3-5.1 [facility] Comment on above: Performed By: #### L 500.2500, L300.3900, L100.0100, L300.4310 ####[facility] [address] [place], [address] Sodium [Moles/Vol] 141 mmol/L Normal 133-145 [facility] Comment on above: Performed By: #### L 500.2500, L300.3900, L100.0100, L300.4310 ####[facility] [address] [place], [address] Urea nitrogen [Mass/Vol] 19 mg/dL Normal 4-19 [facility] Comment on above: Performed By: #### L 500.2500, L300.3900, L100.0100, L300.4310 ####[facility] [address] [place], [address] CBC W/Diff, Automatedon 09-0 8-2024 Absolute Lymph 1.02 X10 3/uL Normal 0.83-4.51 [facility] Comment on above: Order Comment: Comme nts: If not done in prior 24 hours Performed By: #### L 500.2500, L300.3900, L100.0100, L300.4310 ####[facility] [address] [place], [address] Absolute Neut 2.7 X10 3/uL Normal 2.0-7.7 [facility] Comment on above: Order Comment: Comme nts: If not done in prior 24 hours Performed By: #### L 500.2500, L300.3900, L100.0100, L300.4310 ####[facility] [address] [place], [address] Basophils/100 WBC (Bld) 0.5 % Normal 0-1 [facility] Comment on above: Order Comment: Comme nts: If not done in prior 24 hours Performed By: #### L 500.2500, L300.3900, L100.0100, L300.4310 ####[facility] [address] [place], [address] Eosinophils/100 WBC (Bld) 6.2 % High 0-5 [facility] Comment on above: Order Comment: Comme nts: If not done in prior 24 hours Performed By: #### L 500.2500, L300.3900, L100.0100, L300.4310 ####[facility] [address] [place], [address] Erythrocyte distribution width (RBC) [Ratio] 13.4 % Normal 11.6-14.6 [facility] Comment on above: Order Comment: Comme nts: If not done in prior 24 hours Performed By: #### L 500.2500, L300.3900, L100.0100, L300.4310 ####[facility] [address] [place], [address] Hematocrit (Bld) [Volume fraction] 33.3 % Low 37-47 [facility] Comment on above: Order Comment: Comme nts: If not done in prior 24 hours Performed By: #### L 500.2500, L300.3900, L100.0100, L300.4310 ####[facility] [address] [place], [address] Hemoglobin (Bld) [Mass/Vol] 10.7 g/dL Low 12.0-15.0 [facility] Comment on above: Order Comment: Comme nts: If not done in prior 24 hours Performed By: #### L 500.2500, L300.3900, L100.0100, L300.4310 ####[facility] [address] [place], [address] IG% 0.200 Normal 0.0-0.9 [facility] Comment on above: Order Comment: Comme nts: If not done in prior 24 hours Result Comment: IG% - Immature Granulocytes (promyelocytes, myelocytes and metamyelocytes) > 1% indicates that a LEFT SHIFT is Present. Performed By: #### L 500.2500, L300.3900, L100.0100, L300.4310 ####[facility] [address] [place], [address] Lymphocytes/100 WBC (Bld) 23.6 % Normal 19-41 [facility] Comment on above: Order Comment: Comme nts: If not done in prior 24 hours Performed By: #### L 500.2500, L300.3900, L100.0100, L300.4310 ####[facility] [address] [place], [address] MCH (RBC) [Entitic mass] 29.5 pg Normal 27.0-32.0 [facility] Comment on above: Order Comment: Comme nts: If not done in prior 24 hours Performed By: #### L 500.2500, L300.3900, L100.0100, L300.4310 ####[facility] [address] [place], [address] MCHC (RBC) [Mass/Vol] 32.1 g/dL Normal 32-36 [facility] Comment on above: Order Comment: Comme nts: If not done in prior 24 hours Performed By: #### L 500.2500, L300.3900, L100.0100, L300.4310 ####[facility] [address] [place], [address] MCV (RBC) [Entitic vol] 91.7 fL Normal 81-99 [facility] Comment on above: Order Comment: Comme nts: If not done in prior 24 hours Performed By: #### L 500.2500, L300.3900, L100.0100, L300.4310 ####[facility] [address] [place], [address] Monocytes/100 WBC (Bld) 8.1 % Normal 0-10 [facility] Comment on above: Order Comment: Comme nts: If not done in prior 24 hours Performed By: #### L 500.2500, L300.3900, L100.0100, L300.4310 ####[facility] [address] [place], [address] Neutrophils/100 WBC (Bld) 61.4 % Normal 47-70 [facility] Comment on above: Order Comment: Comme nts: If not done in prior 24 hours Performed By: #### L 500.2500, L300.3900, L100.0100, L300.4310 ####[facility] [address] [place], [address] Nucleated RBC (Bld) [#/Vol] 0 10*3/uL Normal 0-5 [facility] Comment on above: Order Comment: Comme nts: If not done in prior 24 hours Performed By: #### L 500.2500, L300.3900, L100.0100, L300.4310 ####[facility] [address] [place], [address] Platelet mean volume (Bld) [Entitic vol] 10.0 fL Normal 6.2-12.0 [facility] Comment on above: Order Comment: Comme nts: If not done in prior 24 hours Performed By: #### L 500.2500, L300.3900, L100.0100, L300.4310 ####[facility] [address] [place], [address] Platelets (Bld) [#/Vol] 268 10*3/uL Normal 150-450 [facility] Comment on above: Order Comment: Comme nts: If not done in prior 24 hours Performed By: #### L 500.2500, L300.3900, L100.0100, L300.4310 ####[facility] [address] [place], [address] RBC (Bld) [#/Vol] 3.63 10*6/uL Low 4.2-5.4 [facility] Comment on above: Order Comment: Comme nts: If not done in prior 24 hours Performed By: #### L 500.2500, L300.3900, L100.0100, L300.4310 ####[facility] [address] [place], [address] RDW SD 45.0 fl High 35.1-43.9 [facility] Comment on above: Order Comment: Comme nts: If not done in prior 24 hours Performed By: #### L 500.2500, L300.3900, L100.0100, L300.4310 ####[facility] [address] [place], [address] WBC (Bld) [#/Vol] 4.3 10*3/uL Low 4.4-11.0 [facility] Comment on above: Order Comment: Comme nts: If not done in prior 24 hours Performed By: #### L 500.2500, L300.3900, L100.0100, L300.4310 ####[facility] [address] [place], [address] International normalized rat io (INR) calculationOrdered By: Reji Goldberg on 01-04-2025 INR Coag (Bld) [Relative time] 1.0 {INR} [facility] Partial Thromboplast Timeon 01-04-2025 aPTT Coag (Bld) [Time] 33.2 s Normal 24.1-36.2 [facility] Comment on above: Order Comment: Comme nts: If not done in prior 24 hours Performed By: #### L 500.2500, L300.3900, L100.0100, L300.4310 ####[facility] [address] [place], [address] Prothrombin Time w/INRon INR Coag (PPP) [Relative time] 1.0 {INR} Normal [facility] Comment on above: Order Comment: Comme nts: If not done in prior 24 hours Performed By: #### L 500.2500, L300.3900, L100.0100, L300.4310 ####[facility] [address] [place], [address] PT Coag (PPP) [Time] 12.9 s Normal 11.7-14.[address] [facility] Comment on above: Order Comment: Comme nts: If not done in prior 24 hours Performed By: #### L 500.2500, L300.3900, L100.0100, L300.4310 ####[facility] [address] [place], [address] Prothrombin timeOrdered By: Reji Goldberg on 01-04-2025 PT Coag (PPP) [Time] 12.9 s 11.7-14.[address] [facility] MR/BMS.Juan Daniel 12-31-2024 MR/BMS.BVS [facility] Vascular Surgery [address] [place] [address] OFFICE VISIT Date of Service: 12/31/24 MR#: [id number] Acct: [id number] Name: KAROLINA AHN Rep #: [id number] : 1965 Provider: KINGS Sidhu Age/Sex: 59/F Location: [facility].BVS Status: Signed Intake Vital Signs 12/11/24 06:49 12/21/24 13:23 12/28/24 15:05 12/31/24 09:25 Height 5 ft 5 in 5 ft 5 in 5 ft 5 in Weight: 145 lb BP 113/66 Blood Pressure Location Lt brachial Position Sitting Respiration 16 Pulse 85 Pulse Source Monitor Temp 97.7 F L Temp Source Temporal Pulse Oximetry (%) 95 Oxygen Delivery Method room air Intake Visit Reasons: ER/DVT FU Is patient in pain?: Yes Allergies hydrocodone (From Vicodin) Allergy (Verified 12/28/24 15:07) Nausea/Vom/Diarrhea Medications ???Medication ???Instructions ???Recorded ???Confirmed ???Type sertraline 100 mg tablet 50 mg PO BID anxiety 03/30/1408/21 History Cholecalciferol (Vitamin D3) 5,000 unit PO DAILY supplement 01/1612/31/24 History [Vitamin D3] cyanocobalamin (vitamin B-12) 3,000 mcg PO DAILY supplement 01/1612/31/24 History 5,000 mcg disintegrating tablet omeprazole 20 mg tablet,delayed 20 mg PO QHS reflux 03/07/2012/31 History release pitavastatin calcium 2 mg tablet 4 mg PO QPM cholesterol 02/08/22 0 12/31/24 History (Livalo) cetirizine 10 mg capsule (Zyrtec) 10 mg PO DAILY allergies 04/12/22 12/31/24 History dicyclomine 20 mg tablet 20 mg PO BID IBS 10/02/22 12/31/24 History alendronate 70 mg tablet 70 mg PO QWEEK bones 11/28/2308/21 History tizanidine 2 mg tablet 2 mg PO QHS PRN muscle spasticity 12/10/23 12/31/24 Rx #14 tabs clopidogrel 75 mg tablet (Plavix) 75 mg PO DAILY #90 tabs 10/27/24 12/31/24 Rx enoxaparin 60 mg/0.6 mL 60 mg (0.6 mL) subcut Q12H 30 days 12/28/24 12/31/24 Rx subcutaneous syringe (Lovenox) #36 mL estradiol 0.01% (0.1 mg/gram) 1 vaginal .COMPLEX 12/28/24 History vaginal cream sertraline 50 mg tablet 100 mg PO DAILY 12/28/24 12/31/24 History Is last menstrual period known: No Post menopausal: Yes Patient : No Have you fallen in the past year?: No [facility] Medical History GERD (gastroesophageal reflux disease) [...] who presents to the office today for evaluation and management of RLE DVT. Recall that she has bilateral iliac vein stents with a history of prior stent thrombosis requiring thrombectomy 11/2023. Subsequently, she was on Eliquis + Plavix for 1 year then transitioned to Plavix + ASA following satisfactory duplexes and in joint-decision making with her preference to be without DOAC if possible. Unfortunately, approximately 6 weeks after discontinuing Eliquis, she presented to the [facility] ER on 12/11/24 with new LLE edema and pain and was found to have recurrent acute extensive LLE DVT involving infrapopliteal vessels up to the CFV. She was placed back on Eliquis + Plavix; unfortunately, her symptoms were persistent and severe and Dr. Goldberg was out of town so she presented to [facility] where she underwent thrombectomy by Dr. Short. There was good result from that procedure with significantly reduce clot burden; no further angioplasty/stent was performed. She was continued on Eliquis. About 5 days later, she drove to [place] for a trip and unfortunately there had recurrent RLE pain/swelling, went to [place] ER where duplex showed recurrent acute RLE DVT, she was admitted for observation on heparin drip, no intervention taken, and she was discharged on Eliquis + Plavix again. Upon return from [place], she still had considerable pain and swelling so presented to [facility] again 12/28; she was placed on Lovenox with plan for scheduled outpatient follow-up and repeat thrombectomy. Repeat duplex 12/29/24 (more content not included)... Normal [facility] Venous Duplex US, Unilateral on 12-29-2024 Venous Duplex US, Unilateral [facility] Cardiovascular Services [address] [place] [address] Venous Duplex US, Unilateral 12/29/24 1119 MR#: [id number] Acct: [id number] Name: KAROLINA AHN Rep #: [id number] : 1965 59 From: Reji Goldberg MD Attending Dr: Dr. Deep Lion MD Status: REG CLI Ordering Dr: Deep Lion MD Date: 12/29/24 Location: [facility] Sex: F C Admitted: Reason For Study Reason For Study: LLE PAIN RIGHT LEFT CFV is compressible, spontaneous, phasic, competent GSV @ SFJ is dilated and noncompressible C/W ACUTE and demonstrates normal augmentation. SVT. Procedure Balance of GSV is compressible. This is a venous duplex using B-mode, color flow and DEIV CFV: DILATED NONCOMPRESSIBLE C/W ACUTE DVT. spectral Doppler. FV is compressible, spontaneous, phasic, competent Exam performed in department. and demonstrates normal augmentation. A preliminary report was called and/or faxed to Dr. SCHULTZ V is compressible, spontaneous, phasic, competent [place] office @ 11:30 am. and demonstrates normal augmentation. T/P Trunk is compressible. PTV is compressible. LT PerV is compressible. VL/Venous Duplex US, Unilateral Interpretation Summary Acute deep vein thrombosis noted in the left external iliac vein, common femoral vein, saphenofemoral junction. Ordering Physician: Deep Lion Referring Physician: Jimbo Dash Performed By: Pattie Giang, CORKY, RVT 12/29/241646 Date Reji Goldberg MD CC: Dr. Jimbo Dash MD; Dr. Deep Lion MD Date Dictated: 12/29/241118 Date Transcribed: 12/29/241646 Environmental Compliance Officer: Signed Normal [facility] Venous duplex ultrasound rep ortOrdered By: Reji Goldberg on 12-29-2024 US Vein [facility] Cardiovascular Services [address] [place] [address] Venous Duplex US, Unilateral 12/29/24 1119 MR#: [id number] Acct: [id number] Name: KAROLINA AHN Rep #:[id number] : 1965 59 From: Reji Bryant Attending Dr: Dr. Deep Lion MD Sta tus: REG CLI Ordering Dr: Deep Lion MD Date: 12/29 Location: [facility] Sex: F C Admitted: Reason For Study Reason For Study: LLE PAIN RIGHT LEFT CFV is compressible, spontaneous, phasic, competent GSV @ SFJ is dilated and noncompressible C/W ACUTE and demonstrates normal augmentation. SVT. Procedure Balance of GSVis compressible. This is a venous duplex using B-mode, color flow and DEIV & CFV: DILATED & NONCOMPRESSIBLE C/W ACUTE DVT. spectral Doppler. FV is compressible, spontaneous, phasic, competent Exam performed in department. and demonstrates normal augmentation. A preliminary report was called and/or faxed to Dr. SCHULTZ V is compressible, spontaneous, phasic, competent [place]'s office @ 11:30 am. and demonstrates normal augmentation. T/P Trunk is compressible. PTV is compressible. LT PerV is compressible. VL/Venous Duplex US, Unilateral Interpretation Summary Acute deep vein thrombosis noted in the left external iliac vein, common femoralvein, saphenofemoral junction. Ordering Physician: Deep Lion Referring Physician: Jimbo Dash Performed By: Pattie Giang, RDCS, RVT 12/29/24 1217 Date _ Reji Goldberg MD CC: Dr. Jimbo Dash MD; Dr. Deep Lion MD ~ Date Dictated: 12/29/24 1119 Date Transcribed: 12/29/241646 Environmental Compliance Officer: Signed [facility] Work Phone: Absolute lymphocyte countOrd ered By: Deep Lion on 12-28-2024 Lymphocytes Auto (Unsp spec) [#/Vol] 0.90 10*3/uL 0.83-4.51 [facility] Absolute neutrophil countOrd ered By: Deep Lion on 12-28-2024 Neutrophils (Bld) [#/Vol] 3.4 10*3/uL 2.0-7.7 [facility] Anion gap in Serum or Plasma Ordered By: Deep Lion on 12-28-2024 Anion gap [Moles/Vol] 11 mmol/L 5-15 [facility] Automated lymphocyte count a s percentage of total leukocytesOrdered By: Deep Lion on 12-28-2024 Lymphocytes/100 WBC Auto (Unsp spec) 18.4 % Low 19-41 [facility] BUN/creatinine ratioOrdered By: Deep Lion on 12-28-2024 Urea nitrogen/Creatinine [Mass ratio] 18.5 mg/mg 10- [facility] Basic Metabolic Profile (BMP )on 12-28-2024 BUN/CRE 18.5 RATIO Normal 10- [facility] Comment on above: Performed By: #### L 100.9950, L100.0100, L503.6030, L503.6550 #### [facility] Laboratory [address] [place], [address] Calcium [Mass/Vol] 9.0 mg/dL Normal 7.6-11.0 [facility] Comment on above: Performed By: #### L 100.9950, L100.0100, L503.6030, L503.6550 #### [facility] [address] [place], [address] Chloride [Moles/Vol] 108 mmol/L Normal 98-[address] [facility] Comment on above: Performed By: #### L 100.9950, L100.0100, L503.6030, L503.6550 #### [facility] [address] [place], [address] CO2 [Moles/Vol] 22.6 mmol/L Normal 21.0-32.0 [facility] Comment on above: Performed By: #### L 100.9950, L100.0100, L503.6030, L503.6550 #### [facility] Laboratory [address] [place], [address] Creatinine [Mass/Vol] 0.85 mg/dL Normal 0.70-1.20 [facility] Comment on above: Performed By: #### L 100.9950, L100.0100, L503.6030, L503.6550 #### [facility] [address] [place], [address] ECRCL 64.12 ml/min Normal 50-250 [facility] Comment on above: Performed By: #### L 100.9950, L100.0100, L503.6030, L503.6550 #### [facility] [address] [place], [address] GAP 11 Normal 5-15 [facility] Comment on above: Performed By: #### L 100.9950, L100.0100, L503.6030, L503.6550 #### [facility] [address] [place], [address] GFR/1.73 sq M.predicted among non-blacks MDRD (S/P/Bld) [Vol rate/Area] 79 mL/min/{1.73_m2} Normal >60 [facility] Comment on above: Result Comment: mL/m in/1.73m2 CKD-EPI Creatinine Equation (2020) Performed By: #### L 100.9950, L100.0100, L503.6030, L503.6550 #### [facility] [address] [place], [address] Glucose [Mass/Vol] 123 mg/dL High 70-99 [facility] Comment on above: Performed By: #### L 100.9950, L100.0100, L503.6030, L503.6550 #### [facility] [address] [place], [address] Potassium [Moles/Vol] 3.9 mmol/L Normal 3.3-5.1 [facility] Comment on above: Performed By: #### L 100.9950, L100.0100, L503.6030, L503.6550 #### [facility] [address] [place], [address] Sodium [Moles/Vol] 142 mmol/L Normal 133-145 [facility] Comment on above: Performed By: #### L 100.9950, L100.0100, L503.6030, L503.6550 #### [facility] [address] [place], [address] Urea nitrogen [Mass/Vol] 16 mg/dL Normal 4-19 [facility] Comment on above: Performed By: #### L 100.9950, L100.0100, L503.6030, L503.6550 #### [facility] [address] [place], [address] Basophil percentageOrdered B y: Deep Lion on 12-28-2024 Basophils/100 WBC (Bld) 0.6 % 0-1 [facility] CBC W/Diff, Automatedon Absolute Lymph 0.90 X10 3/uL Normal 0.83-4.51 [facility] Comment on above: Performed By: #### L 100.9950, L100.0100, L503.6030, L503.6550 #### [facility] [address] [place], [address] Absolute Neut 3.4 X10 3/uL Normal 2.0-7.7 [facility] Comment on above: Performed By: #### L 100.9950, L100.0100, L503.6030, L503.6550 #### [facility] [address] [place], [address] Basophils/100 WBC (Bld) 0.6 % Normal 0-1 [facility] Comment on above: Performed By: #### L 100.9950, L100.0100, L503.6030, L503.6550 #### [facility] [address] [place], [address] Eosinophils/100 WBC (Bld) 5.1 % High 0-5 [facility] Comment on above: Performed By: #### L 100.9950, L100.0100, L503.6030, L503.6550 #### [facility] [address] [place], [address] Erythrocyte distribution width (RBC) [Ratio] 13.5 % Normal 11.6-14.6 [facility] Comment on above: Performed By: #### L 100.9950, L100.0100, L503.6030, L503.6550 #### [facility] [address] [place], [address] Hematocrit (Bld) [Volume fraction] 32.9 % Low 37-47 [facility] Comment on above: Performed By: #### L 100.9950, L100.0100, L503.6030, L503.6550 #### [facility] [address] [place], [address] Hemoglobin (Bld) [Mass/Vol] 10.6 g/dL Low 12.0-15.0 [facility] Comment on above: Performed By: #### L 100.9950, L100.0100, L503.6030, L503.6550 #### [facility] [address] [place], [address] IG% 0.400 Normal 0.0-0.9 [facility] Comment on above: Result Comment: IG% - Immature Granulocytes (promyelocytes, myelocytes and metamyelocytes) > 1% indicates that a LEFT SHIFT is Present. Performed By: #### L 100.9950, L100.0100, L503.6030, L503.6550 #### [facility] [address] [place], [address] Lymphocytes/100 WBC (Bld) 18.4 % Low 19-41 [facility] Comment on above: Performed By: #### L 100.9950, L100.0100, L503.6030, L503.6550 #### [facility] [address] [place], [address] MCH (RBC) [Entitic mass] 29.4 pg Normal 27.0-32.0 [facility] Comment on above: Performed By: #### L 100.9950, L100.0100, L503.6030, L503.6550 #### [facility] [address] [place], [address] MCHC (RBC) [Mass/Vol] 32.2 g/dL Normal 32-36 [facility] Comment on above: Performed By: #### L 100.9950, L100.0100, L503.6030, L503.6550 #### [facility] [address] [place], [address] MCV (RBC) [Entitic vol] 91.4 fL Normal 81-99 [facility] Comment on above: Performed By: #### L 100.9950, L100.0100, L503.6030, L503.6550 #### [facility] [address] [place], [address] Monocytes/100 WBC (Bld) 5.9 % Normal 0-10 [facility] Comment on above: Performed By: #### L 100.9950, L100.0100, L503.6030, L503.6550 #### [facility] [address] [place], [address] Neutrophils/100 WBC (Bld) 69.6 % Normal 47-70 [facility] Comment on above: Performed By: #### L 100.9950, L100.0100, L503.6030, L503.6550 #### [facility] Laboratory [address] [place], [address] Nucleated RBC (Bld) [#/Vol] 0 10*3/uL Normal 0-5 [facility] Comment on above: Performed By: #### L 100.9950, L100.0100, L503.6030, L503.6550 #### [facility] Laboratory [address] [place], [address] Platelet mean volume (Bld) [Entitic vol] 9.1 fL Normal 6.2-12.0 [facility] Comment on above: Performed By: #### L 100.9950, L100.0100, L503.6030, L503.6550 #### [facility] Laboratory [address] [place], [address] Platelets (Bld) [#/Vol] 356 10*3/uL Normal 150-450 [facility] Comment on above: Performed By: #### L 100.9950, L100.0100, L503.6030, L503.6550 #### [facility] [address] [place], [address] RBC (Bld) [#/Vol] 3.60 10*6/uL Low 4.2-5.4 [facility] Comment on above: Performed By: #### L 100.9950, L100.0100, L503.6030, L503.6550 #### [facility] [address] [place], [address] RDW SD 44.7 fl High 35.1-43.9 [facility] Comment on above: Performed By: #### L 100.9950, L100.0100, L503.6030, L503.6550 #### [facility] Laboratory [address] [place], [address] WBC (Bld) [#/Vol] 4.9 10*3/uL Normal 4.4-11.0 [facility] Comment on above: Performed By: #### L 100.9950, L100.0100, L503.6030, L503.6550 #### [facility] Laboratory [address] [place], [address] CTA Chest W/WO Contraston CTA Chest W/WO Contrast [facility] Imaging Services [address] [place] [address] CTA Chest W/WO Contrast MR#: [id number] Acct: [id number] Name: KAROLINA AHN Rep #: [id number] : 1965 F 59 From: Xu Bryant PCP: Dr. Jimbo Dash MD Status: REG ER Study: CTA Chest W/WO Contrast Date of Exam: 12/28/24 Exam# [id number] Ordering Dr: Deep Lion MD PROCEDURE: CTA CHEST W/WO CONTRAST 12/28/2024 REASON FOR EXAM: TACHYPNEA, SANABRIA, PHLEGMASIA CERULEA DOLENS ON APIXA TECHNIQUE: Procedure Code: CTCTACHWW Modality: CT Procedure: CTA CHEST W/WO CONTRAST Multiplanar Sagittal and Coronal images were obtained. CONTRAST: 100 mL of Isovue 370 One or more dose reduction techniques were used (e.g., Automated exposure control, adjustment of the mA and/or kV according to patient size, use of iterative reconstruction technique). RADIATION DOSE SUMMARY: DLP: 798 mGycm COMPARISON: none FINDINGS: PULMONARY ARTERIES: No evidence of pulmonary embolism. LUNGS AND PLEURA: No consolidations. No definite pulmonary edema. No mass or nodule. No pleural effusion. No pneumothorax. MEDIASTINUM: No lymphadenopathy or mass. The heart shows no acute findings. The aorta shows no acute findings. The pulmonary trunk, and branches of the vessels in the mediastinum are within normal limits. SUPRACLAVICULAR AND AXILLARY: No abnormalities seen in these regions. No mass or significant lymphadenopathy. UPPER ABDOMEN: The visualized upper abdomen is unremarkable. BONES AND SOFT TISSUES: The ribs are unremarkable. The visualized spine shows no significant acute findings. No focal bony mass lesions noted. The subcutaneous soft tissues are unremarkable. CT/CTA Chest W/WO Contrast IMPRESSION: No acute pulmonary emboli. No focal consolidations. Reading Location: [facility] CC: Dr. Jimbo Dash MD; Dr. Deep Lion MD Environmental Compliance Officer: Signed Normal [facility] Carbon dioxide, total [Moles /volume] in Central venous bloodOrdered By: Deep Lion on 12-28-2024 CO2 [Moles/Vol] 22.6 mmol/L 21.0-32.0 [facility] Chloride assayOrdered By: sAhu Lion on 12-28-2024 Chloride [Moles/Vol] 108 mmol/L 98-[address] [facility] Emergency Department Summary on 12-28-2024 Emergency Department Summary [facility] Medical Records Department [address] [place] [address] Emergency Department Summary 12/28/24 MR#: [id number] Acct: [id number] Name: KAROLINA AHN Rep #: [id number] : 1965 59 From: Deep Lion MD PCP: Dr. Jimbo Dash MD Status:REG ER Location: ED HPI History of Present Illness Chief Complaint: Lower Extremity Injury Detail of Chief Complaint: Recurrent pain swelling left lower extremity, dyspnea and SANABRIA Informant: patient and spouse/S.O. Onset/Context/Timing Onset: Days Context: Sudden Onset Timing: Continuous Quality: Increasing left lower extremity pain, phlegmasia cerulea dolens Location: Pain Current Severity: Mild Maximum Severity: Moderate Worsened by: Ambulation Relieved by: Nothing Associated Symptoms Associated Symptoms: Dyspnea, dyspnea on exertion Narrative Narrative: Patient is a 59-year-old woman. She has history of recurrent DVT. Patient was seen on December 11 by me. She was diagnosed with an extensive clot that involved the left iliac down to her ankle. Patient was treated with apixaban. She is presently on Plavix. She followed up at [facility] and had a thrombectomy done by vascular at [facility]. Patient reports operative report was sent to Dr. Reji Goldberg. She was cleared to go to [place]. Several days after she was in [place] she developed pain again and swelling. Venous duplex study revealed recurrent clot. She was anticoagulated with heparin. She was discharged home. She now presents because of increasing pain swelling discoloration. She is noted to be tachypneic. Patient reports shortness of breath just walking up the incline to the emergency department. She does not have pleuritic pain. She has not missed any of her apixaban doses. Patient denies paresthesia, anesthesia or motor weakness. Patient's prior records reviewed. Records from [facility] was reviewed. She had a copy of the records from [place]. Dr. oGldberg confirmed that he is aware of the recurrent clots. This is in spite of patient being on apixaban and Plavix. Prior similar symptoms: Yes Recent Illness/[facility]ospital[facility]ati on: [facility] Medical History GERD (gastroesophageal reflux disease) [...] .Route 12/11 Unknown Rx a dose pack (Eliquis DVT-PE Treat .COMPLEX #74 tabs 30D Start) oxycodone 10 mg tablet,crush 10 mg PO BID 4 days #8 tabs Unknown Rx resistant,extended release 12 hr oxycodone-acetaminoph en 5 mg-325 1 tab PO Q6H PRN PRN pain 5 days 0 12/11/24 Unknown Rx mg tablet #20 TABLETS enoxaparin 60 mg/0.6 mL 60 mg (0.6 mL) subcut Q12H 30 days 12/28/24 Unknown Rx subcutaneous syringe (Lovenox) #36 mL Allergy/AdvReac Type Severity Reaction Status Date / Time hydrocodone (From Vicodin) Allergy Nausea/Vom/ Verified 12/28/24 15:07 Diarrhea Family History Mother Colon cancer Cancer ovary Diabetes Father Hypertension Surgical History Hx of bladder repair surgery Hx of cystoscopy Hx of shoulder surgery Hx of colonoscopy S/P rotator cuff repair S/P bunionectomy S/p bilateral carpal tunnel release S/P cholecystectomy S/P hysterectomy Social History household members: spouse housing: house current occupational status: employed Smoking Status: Never smoker alcoho (more content not included)... Normal [facility] Eosinophil percentageOrdered By: Deep Lion on 12-28-2024 Eosinophils/100 WBC (Bld) 5.1 % High 0-5 [facility] Erythrocyte distribution wid th ratioOrdered By: Deep Lion on 12-28-2024 Erythrocyte distribution width (RBC) [Ratio] 13.5 % 11.6-14.6 [facility] Erythrocyte distribution wid th standard deviationOrdered By: Deep Lion on 12-28-2024 Erythrocyte distribution width (RBC) [Ratio] 44.7 fl High 35.1-43.9 [facility] Glomerular filtration rate ( GFR) estimation/1.73 sq m using serum, plasma, or whole bOrdered By: Deep Lion on 12-28-2024 GFR/1.73 sq M.predicted among non-blacks MDRD (S/P/Bld) [Vol rate/Area] 79 mL/min/{1.73_m2} >60 [facility] Comment on above: mL/min/1.73m2 CKD-EP I Creatinine Equation (2020) Hematocrit Auto (Bld) [Volum e fraction]Ordered By: Deep Lion on 12-28-2024 Hematocrit (Bld) [Volume fraction] 32.9 % Low 37-47 [facility] Hemoglobin measurementOrdere d By: Deepsyeda Lion on 12-28-2024 Hemoglobin (Bld) [Mass/Vol] 10.6 g/dL Low 12.0-15.0 [facility] Immature granulocytes/100 WB C Auto (Bld)Ordered By: Deepsyeda Lion on 12-28-2024 Immature granulocytes/100 WBC (Bld) 0.400 % 0.0-0.9 [facility] Comment on above: IG% - Immature Granu locytes (promyelocytes, myelocytes and metamyelocytes) > 1% indicates that a LEFT SHIFT is Present. MCV (mean corpuscular volume ) determinationOrdered By: Deep Lion on 12-28-2024 MCV (RBC) [Entitic vol] 91.4 fL 81-99 [facility] Mean corpuscular hemoglobin (MCH) determinationOrdered By: Deepsyeda Lion on 12-28-2024 MCH (RBC) [Entitic mass] 29.4 pg 27.0-32.0 [facility] Mean corpuscular hemoglobin concentration (MCHC) determinationOrdered By: Deepsyeda Lion on 12-28-2024 MCHC (RBC) [Mass/Vol] 32.2 g/dL 32-36 [facility] Mean platelet volume determi nationOrdered By: Deepsyeda Lion on 12-28-2024 Platelet mean volume (Bld) [Entitic vol] 9.1 fL 6.2-12.0 [facility] Monocyte percentageOrdered B y: Deep Lion on 12-28-2024 Monocytes/100 WBC (Bld) 5.9 % 0-10 [facility] Neutrophil percentageOrdered By: Deepsyeda Lion on 12-28-2024 Neutrophils/100 WBC (Bld) 69.6 % 47-70 [facility] Nucleated red blood cell per centageOrdered By: Deep Lion on 12-28-2024 Nucleated RBC/100 WBC (Bld) [Ratio] 0 % 0-5 [facility] Platelet countOrdered By: Ashu Lion on 12-28-2024 Platelets (Bld) [#/Vol] 356 10*3/uL 150-450 [facility] Potassium measurement (mass/ volume)Ordered By: Deep Lion on 12-28-2024 Potassium (Unsp spec) [Mass/Vol] 3.9 mmol/L 3.3-5.1 [facility] RBC Auto (Bld) [#/Vol]Ordere d By: Deep Lion on 12-28-2024 RBC (Bld) [#/Vol] 3.60 10*6/uL Low 4.2-5.4 [facility] Serum creatinine measurement (mass/volume)Ordered By: Deep Lion on 12-28-2024 Creatinine [Mass/Vol] 0.85 mg/dL 0.70-1.20 [facility] Serum glucose measurement (m ass/volume)Ordered By: Deep Lion on 12-28-2024 Glucose [Mass/Vol] 123 mg/dL High 70-99 [facility] Serum or plasma calcium cooper urement (mass/volume)Ordered By: Deep Lion on 12-28-2024 Calcium [Mass/Vol] 9.0 mg/dL 7.6-11.0 [facility] Serum or plasma urea nitroge n measurement (mass/volume)Ordered By: Deep Lion on 12-28-2024 Urea nitrogen [Mass/Vol] 16 mg/dL 4-19 [facility] Sodium levelOrdered By: Deepsyeda Lion on 12-28-2024 Sodium [Moles/Vol] 142 mmol/L 133-145 [facility] White blood cell (WBC) count Ordered By: Deep Lion on 12-28-2024 WBC (Bld) [#/Vol] 4.9 10*3/uL 4.4-11.0 [facility] CNPNon 12-23-2024 CNPN Telephone (AKURFL) KAROLINA AHN ([id number]) 1965 F Date Time Provider Department 12/23/24 FÁTIMA SANTILLAN During your visit today, we recorded the following information about you: Saul Abbasi 12/23/2024 3:24 PM Signed Patient has been scheduled in first available conference slot available after her appt with vascular. Saul Abbasi Allergies As of Date: 12/23/2024 Noted Allergy Reaction HYDROCODONE-ACETAMINO PHEN 10/29/2016 11 - Vomiting ASPIRIN 02/27/2006 Comments: tired and weak and made her feel weird can take Ibuprofen OXYCODONE 02/08/2022 9 - Itching Date Reviewed: 12/12/2024 Reviewed by: Marilu Owen, RT(R) - Fully Assessed Prescriptions as of 12/23/2024 - Surgical Lubricant Jelly gel For MRI [...] twice daily. Problem List As Of Date 12/23/2024 Noted Resolved Hallux Valgus (Acquired) [M20.10] 02/18/2006 [...] Unspecified constipation [K59.00] 01/15/2011 Encounter Status:Closed by SAUL ABBASI on 12/23/24 [facility] 36on 12-22-2024 36 Spoke to Karolina to check in with her since surgery. She states she had to go back to the hospital in [place] due to her legs being painful; she mentions having to have a heparin drip. She says she will continue to follow Dr. Goldberg in [place]. Normal [facility] APTTon 12-17-2024 aPTT Coag (Bld) [Time] 59.2 s High 20.0-30.5 [facility] Comment on above: Result Comment: CELESTE Joseph COMMENTS: NOTE: The therapeutic time for Heparin anticoagulation, based on Xa activity inhibition, is an APTT of 46-80 seconds. Performed By: #### L AB325 ####Neckties Painter: AVERY WORTHINGTON ([id number])[facility] ([facility])[address] [place] [address] BASIC METABOLIC PANELon 08-2 Anion gap [Moles/Vol] 6 mmol/L Normal 3-13 [facility] Comment on above: Performed By: #### L AB15 ####Neckties Painter: AVERY WORTHINGTON ([id number])[facility] ([facility])[address] [place] [address] Calcium [Mass/Vol] 8.6 mg/dL Normal 8.4-10.2 [facility] Comment on above: Performed By: #### L AB15 ####Neckties Painter: AVERY WORTHINGTON ([id number])[facility] ([facility])[address] [place] [address] Chloride [Moles/Vol] 108 mmol/L High 98-107 [facility] Comment on above: Performed By: #### L AB15 ####Neckties Painter: AVERY WORTHINGTON ([id number])[facility] ([facility] [place] [address] CO2 [Moles/Vol] 26 mmol/L Normal 22-29 [facility] Comment on above: Performed By: #### L AB15 ####Neckties Painter: AVERY WORTHINGTON ([id number])[facility] ([facility])[address] [place] [address] Creatinine [Mass/Vol] 0.76 mg/dL Normal 0.57-1.11 [facility] Comment on above: Performed By: #### L AB15 ####Neckties Painter: AVERY WORTHINGTON ([id number])[facility] ([facility])[address] [place] [address] GLOMERULAR FILTRATION RATE ML/MIN/1.73 SQ M.PREDICTED >90.0 Normal >60.0 [facility] Comment on above: Result Comment: Calc ulation based on the Chronic Kidney Disease Epidemiology Collaboration (CKD-EPI) equation refit without adjustment for race Performed By: #### L AB15 ####Neckties Painter: AVERY WORTHINGTON ([id number])[facility] ([facility] Glucose [Mass/Vol] 105 mg/dL High 74-100 [facility] Comment on above: Performed By: #### L AB15 ####Neckties Painter: AVERY WORTHINGTON ([id number])[facility] ([facility])[address] [place] [address] Potassium [Moles/Vol] 3.9 mmol/L Normal 3.5-5.1 [facility] Comment on above: Result Comment: [facility] potassium values may be up to 0.5 mmol/L lower than serum values. Performed By: #### L AB15 ####Neckties Painter: AVERY WORTHINGTON ([id number])[facility] ([facility])[address] [place] [address] Sodium [Moles/Vol] 140 mmol/L Normal 136-145 [facility] Comment on above: Performed By: #### L AB15 ####Neckties Painter: AVERY WORTHINGTON ([id number])[facility] ([facility])[address] [place] [address] Urea nitrogen [Mass/Vol] 10 mg/dL Normal 9-23 [facility] Comment on above: Performed By: #### L AB15 ####Neckties Painter: AVERY WORTHINGTON ([id number])[facility])[address] [place] [address] Basic metabolic 1998 panelon 12-17-2024 Anion gap [Moles/Vol] 6 mmol/L 3 - 13 mmol/L [facility] Calcium [Mass/Vol] 8.6 mg/dL 8.4 - 10. 2 mg/dL [facility] Chloride [Moles/Vol] 108 mmol/L High 98 - 10 7 mmol/L [facility] CO2 [Moles/Vol] 26 mmol/L 22 - 29 mmol/L [facility] Creatinine [Mass/Vol] 0.76 mg/dL 0.57 - 1.11 mg/dL [facility] GFR/1.73 sq M.predicted (S/P/Bld) [Vol rate/Area] - PINF [facility] Comment on above: Calculation based on the Chronic Kidney Disease Epidemiology Collaboration (CKD-EPI) equation refit without adjustment for race Glucose [Mass/Vol] 105 mg/dL High 74 - 100 mg/dL [facility] Interpretation and review of laboratory results Abnormal [facility] Potassium [Moles/Vol] 3.9 mmol/L 3.5 - 5.1 mmol/L [facility] Comment on above: Plasma potassium harini ues may be up to 0.5 mmol/L lower than serum values. Sodium [Moles/Vol] 140 mmol/L 136 - 145 mmol/L [facility] Urea nitrogen [Mass/Vol] 10 mg/dL 9 - 23 mg/dL [facility] CBC (HEMOGRAM)on 12-17-2024 Erythrocyte distribution width (RBC) [Ratio] 12.8 % Normal 11.5-15.0 [facility] Comment on above: Performed By: #### L [id number] ####Neckties Painter: AVERY WORTHINGTON ([id number])[address] Hematocrit (Bld) [Volume fraction] 31.9 % Low 35.0-47.0 [facility] Comment on above: Performed By: #### L [id number] ####Neckties Painter: AVERY WORTHINGTON ([id number])[address] Hemoglobin (Bld) [Mass/Vol] 10.1 g/dL Low 11.7-16.0 [facility] Comment on above: Performed By: #### L [id number] ####Neckties Painter: AVERY WORTHINGTON ([id number])[address] MCH (RBC) [Entitic mass] 29.1 pg Normal 26.0-34.0 [facility] Comment on above: Performed By: #### L [id number] ####Neckties Painter: AVERY WORTHINGTON ([id number])[address] MCHC 31.7 % Normal 30.5-36.0 [facility] Comment on above: Performed By: #### L [id number] ####Neckties Painter: AVERY WORTHINGTON ([id number])[facility] ([facility])[address] [place] [address] MCV (RBC) [Entitic vol] 91.9 fL Normal 77.0-99.0 [facility] Comment on above: Performed By: #### L [id number] ####Neckties Painter: AVERY WORTHINGTON ([id number])[facility])[address] [place] [address] Platelet mean volume (Bld) [Entitic vol] 9.9 fL Normal 9.0-12.7 [facility] Comment on above: Performed By: #### L [id number] ####Neckties Painter: AVERY WORTHINGTON ([id number])[facility])[address] [place] [address] Platelets (Bld) [#/Vol] 244 10*3/uL Normal 140-440 [facility] Comment on above: Performed By: #### L [id number] ####Neckties Painter: AVERY WORTHINGTON ([id number])[facility] ([facility])[address] [place] [address] RBC (Bld) [#/Vol] 3.47 10*6/uL Low 3.80-5.20 [facility] Comment on above: Performed By: #### L [id number] ####Neckties Painter: AVERY WORTHINGTON ([id number])[facility])[address] [place] [address] WBC (Bld) [#/Vol] 7.1 10*3/uL Normal 3.6-10.7 [facility] Comment on above: Performed By: #### L [id number] ####Neckties Painter: AVERY WORTHINGTON ([id number])[facility])[address] [place] [address] CBC panel Auto (Bld)on 12-17 Erythrocyte distribution width (RBC) [Ratio] 12.8 % 11.5 - 15.0 % [facility] Hematocrit (Bld) [Volume fraction] 31.9 % Low 35.0 - 47.0 % [facility] Hemoglobin (Bld) [Mass/Vol] 10.1 g/dL Low 11.7 - 16.0 g/dL [facility] Interpretation and review of laboratory results Abnormal [facility] MCH (RBC) [Entitic mass] 29.1 pg 26.0 - 34.0 pg [facility] MCHC (RBC) [Mass/Vol] 31.7 % 30.5 - 36.0 % [facility] MCV (RBC) [Entitic vol] 91.9 fL 77.0 - 99.0 fL [facility] Platelet mean volume (Bld) [Entitic vol] 9.9 fL 9.0 - 12.7 fL [facility] Platelets (Bld) [#/Vol] 244 10*3/uL 140 - 440 10*3/uL [facility] RBC (Bld) [#/Vol] 3.47 10*6/uL Low 3.80 - 5.2 0 10*6/uL [facility] WBC (Bld) [#/Vol] 7.1 10*3/uL 3.6 - 10.7 10*3/uL [facility] Nursing Noteon 12-17-2024 Nursing Note arrived and taken to discharge Normal [facility] Nursing Note Patient has been aware of discharge. She states her will probably come around 1700 Normal [facility] Nursing Note Pressure dressing remains dry and intact Normal [facility] Nursing Note Pressure dressing nagy s been in place for 5 minutes. No bleeding noted at this time but will monitor. Normal [facility] Nursing Note Patient called stating she was bleeding. [...] were able to come and see her. Normal [facility] Nursing Note Patient in bed. Denies any complaints at this time. 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 Last bp 92/54 MAP of 67. Normal [facility] Progress Noteon 12-17-2024 Progress Note - Attestation signed by Charissa Short MD at 12/17/2024 12:43 PM I saw and evaluated the patient. I agree with the findings and plan of care as documented in the resident?s note unless otherwise noted below. Some oozing from popliteal incision secondary to varicosities. Suture placed by resident team. There is no bleeding present at this time. Swelling improved. OK for discharge from a vascular surgery standpoint. OK to resume Eliquis. Will arrange outpatient follow up with us or the patient may follow up with Dr. Goldberg if she desires. Department of Vascular Surgery PATIENT NAME: Karolina [...] Position: Sitting) Pulse 58 Temp (!) 35.6 ?C (96.1 ?F) (Temporal) Resp 24 Ht 1.626 m (5' 4) Wt 65.8 kg (145 lb) SpO2 97% BMI 24.89 kg/m? PHYSICAL EXAM: Physical Exam Vitals reviewed. Constitutional: [...] from vascular perspective, follow-up with Dr. Goldberg ([place]) or Dr. Short - Vascular to sign off, please call with questions or concerns WDW Dr. Carolyn Rico MD General Surgery PGY-3 Pager [phone] [1] atorvastatin, 40 mg, Oral, Nightly dicyclomine, [...] (PEG) 3350, sodium chloride, sodium chloride 0.9% Normal [facility] aPTT Coag (Bld) [Time]on aPTT Coag (PPP) [Time] 59.2 s High 20.0 - 30.5 s [facility] Interpretation and review of laboratory results Abnormal [facility] NOTE: The therapeuti c time for Heparin anticoagulation, based on Xa activity inhibition, is an APTT of 46-80 seconds. [facility] ABO and Rh group Confirm Nom (Bld)on 12-16-2024 ABO group Nom (Bld) B [facility] D Ag Ql (RBC) Positive [facility] APTTon 12-16-2024 aPTT Coag (Bld) [Time] 50.8 s High 20.0-30.5 [facility] Comment on above: Result Comment: CELESTE Joseph COMMENTS: NOTE: The therapeutic time for Heparin anticoagulation, based on Xa activity inhibition, is an APTT of 46-80 seconds. Performed By: #### L [id number] ####Neckties Painter: AVERY WORTHINGTON ([id number])[facility])[address] [place] [address] aPTT Coag (Bld) [Time] 56.9 s High 20.0-30.5 [facility] Comment on above: Result Comment: CELESTE Joseph COMMENTS: NOTE: The therapeutic time for Heparin anticoagulation, based on Xa activity inhibition, is an APTT of 46-80 seconds. Performed By: #### L AB325 ####Neckties Painter: AVERY WORTHINGTON ([id number])[address] aPTT Coag (Bld) [Time] 58.7 s High 20.0-30.5 [facility] Comment on above: Result Comment: CELESTE Joseph COMMENTS: NOTE: The therapeutic time for Heparin anticoagulation, based on Xa activity inhibition, is an APTT of 46-80 seconds. Performed By: #### L AB325 #### Neckties Painter: AVERY WORTHINGTON ([id number]) [facility] ([facility]) [address] [place] [address] BASIC METABOLIC PANELon 11-28 Anion gap [Moles/Vol] 6 mmol/L Normal 3-13 [facility] Comment on above: Performed By: #### L AB15 ####Neckties Painter: AVERY WORTHINGTON ([id number])[facility])[address] [place] [address] Calcium [Mass/Vol] 8.7 mg/dL Normal 8.4-10.2 [facility] Comment on above: Performed By: #### L AB15 ####Neckties Painter: AVERY WORTHINGTON ([id number])[facility] ([facility])[address] [place] [address] Chloride [Moles/Vol] 108 mmol/L High 98-107 [facility] Comment on above: Performed By: #### L AB15 ####Neckties Painter: AVERY WORTHINGTON ([id number])[facility] ([facility])[address] [place] [address] CO2 [Moles/Vol] 25 mmol/L Normal 22-29 [facility] Comment on above: Performed By: #### L AB15 ####Neckties Painter: AVERY WORTHINGTON ([id number])[facility] ([facility])[address] [place] [address] Creatinine [Mass/Vol] 0.73 mg/dL Normal 0.57-1.11 [facility] Comment on above: Performed By: #### L AB15 ####Neckties Painter: AVERY WORTHINGTON ([id number])[facility] ([facility])[address] [place] [address] GLOMERULAR FILTRATION RATE ML/MIN/1.73 SQ M.PREDICTED >90.0 Normal >60.0 [facility] Comment on above: Result Comment: Calc ulation based on the Chronic Kidney Disease Epidemiology Collaboration (CKD-EPI) equation refit without adjustment for race Performed By: #### L AB15 ####Neckties Painter: AVERY WORTHINGTON ([id number])[facility] ([facility])[address] [place] [address] [place] Glucose [Mass/Vol] 92 mg/dL Normal 74-100 [facility] Comment on above: Performed By: #### L AB15 ####Neckties Painter: AVERY WORTHINGTON ([id number])[facility] ([facility])[address] [place] [address] [place] Potassium [Moles/Vol] 4.0 mmol/L Normal 3.5-5.1 [facility] Comment on above: Result Comment: Plas ma potassium values may be up to 0.5 mmol/L lower than serum values. Performed By: #### L AB15 ####Neckties Painter: AVERY WORTHINGTON ([id number])[facility])[address] [place] [address] Sodium [Moles/Vol] 139 mmol/L Normal 136-145 [facility] Comment on above: Performed By: #### L AB15 ####Neckties Painter: AVERY WORTHINGTON ([id number])[facility])[address] [place] [address] Urea nitrogen [Mass/Vol] 13 mg/dL Normal 9-23 [facility] Comment on above: Performed By: #### L AB15 ####Neckties Painter: AVERY WORTHINGTON ([id number])[facility])[address] [place] [address] BLOOD TYPE AND SCREEN GELon 12-16-2024 ABO GROUPING B Normal [facility] Comment on above: Performed By: #### L [id number] ####Neckties Painter: AVERY WORTHINGTON ([id number])[facility] ([facility])[address] [place] [address] RH TYPE IN BLOOD Positive Normal [facility] Comment on above: Performed By: #### L [id number] ####Neckties Painter: AVERY WORTHINGTON ([id number])[facility] ([facility])[address] [place] [address] Basic metabolic 1998 panelon 12-16-2024 Anion gap [Moles/Vol] 6 mmol/L 3 - 13 mmol/L [facility] Calcium [Mass/Vol] 8.7 mg/dL 8.4 - 10. 2 mg/dL [facility] Chloride [Moles/Vol] 108 mmol/L High 98 - 10 7 mmol/L [facility] CO2 [Moles/Vol] 25 mmol/L 22 - 29 mmol/L [facility] Creatinine [Mass/Vol] 0.73 mg/dL 0.57 - 1.11 mg/dL [facility] GFR/1.73 sq M.predicted (S/P/Bld) [Vol rate/Area] - PINF [facility] Comment on above: Calculation based on the Chronic Kidney Disease Epidemiology Collaboration (CKD-EPI) equation refit without adjustment for race Glucose [Mass/Vol] 92 mg/dL 74 - 100 mg/dL [facility] Interpretation and review of laboratory results Abnormal [facility] Potassium [Moles/Vol] 4 mmol/L 3.5 - 5.1 mmol/L [facility] Comment on above: Plasma potassium harini ues may be up to 0.5 mmol/L lower than serum values. Sodium [Moles/Vol] 139 mmol/L 136 - 145 mmol/L [facility] Urea nitrogen [Mass/Vol] 13 mg/dL 9 - 23 mg/dL [facility] Blood type and Crossmatch pa deanne (Bld)on 12-16-2024 ABO group Nom (Bld) B [facility] Blood group antibody screen GEL Ql Negative [facility] D Ag Ql (RBC) Positive [facility] h [facility] CBC (HEMOGRAM)on 12-16-2024 Erythrocyte distribution width (RBC) [Ratio] 12.8 % Normal 11.5-15.0 [facility] Comment on above: Performed By: #### L [id number] ####Neckties Painter: AVERY WORTHINGTON ([id number])[address] Hematocrit (Bld) [Volume fraction] 36.4 % Normal 35.0-47.0 [facility] Comment on above: Performed By: #### L [id number] ####Neckties Painter: AVERY [id number])[address] Hemoglobin (Bld) [Mass/Vol] 11.7 g/dL Normal 11.7-16.0 [facility] Comment on above: Performed By: #### L [id number] ####Neckties Painter: AVERY [id number])[facility])[address] [place] [address] MCH (RBC) [Entitic mass] 29.6 pg Normal 26.0-34.0 [facility] Comment on above: Performed By: #### L [id number] ####Neckties Painter: AVERY WORTHINGTON ([id number])[facility] ([facility])[address] [place] [address] MCHC 32.1 % Normal 30.5-36.0 [facility] Comment on above: Performed By: #### L [id number] ####Neckties Painter: AVERY WORTHINGTON ([id number])[facility] ([facility])[address] [place] [address] MCV (RBC) [Entitic vol] 92.2 fL Normal 77.0-99.0 [facility] Comment on above: Performed By: #### L [id number] ####Neckties Painter: AVERY WORTHINGTON ([id number])[facility])[address] [place] [address] Platelet mean volume (Bld) [Entitic vol] 10.0 fL Normal 9.0-12.7 [facility] Comment on above: Performed By: #### L [id number] ####Neckties Painter: AVERY WORTHINGTON ([id number])[facility] ([facility])[address] [place] [address] [place] Platelets (Bld) [#/Vol] 227 10*3/uL Normal 140-440 [facility] Comment on above: Performed By: #### L [id number] ####Neckties Painter: AVERY WORTHINGTON ([id number])[facility])[address] [place] [address] RBC (Bld) [#/Vol] 3.95 10*6/uL Normal 3.80-5.20 [facility] Comment on above: Performed By: #### L [id number] ####Neckties Painter: AVERY WORTHINGTON ([id number])[facility] ([facility])[address] [place] [address] [place] WBC (Bld) [#/Vol] 5.7 10*3/uL Normal 3.6-10.7 [facility] Comment on above: Performed By: #### L [id number] ####Neckties Painter: AVERY WORTHINGTON ([id number])[facility] ([facility])[address] [place] [address] CBC panel Auto (Bld)on 12-16 Erythrocyte distribution width (RBC) [Ratio] 12.8 % 11.5 - 15.0 % [facility] Hematocrit (Bld) [Volume fraction] 36.4 % 35.0 - 47.0 % [facility] Hemoglobin (Bld) [Mass/Vol] 11.7 g/dL 11.7 - 16.0 g/dL [facility] Interpretation and review of laboratory results Normal [facility] MCH (RBC) [Entitic mass] 29.6 pg 26.0 - 34.0 pg [facility] MCHC (RBC) [Mass/Vol] 32.1 % 30.5 - 36.0 % [facility] MCV (RBC) [Entitic vol] 92.2 fL 77.0 - 99.0 fL [facility] Platelet mean volume (Bld) [Entitic vol] 10 fL 9.0 - 12.7 fL [facility] Platelets (Bld) [#/Vol] 227 10*3/uL 140 - 440 10*3/uL [facility] RBC (Bld) [#/Vol] 3.95 10*6/uL 3.80 - 5.2 0 10*6/uL [facility] WBC (Bld) [#/Vol] 5.7 10*3/uL 3.6 - 10.7 10*3/uL [facility] CT CORONARY CTA WITH PROV FF R-CTon 12-16-2024 CT CORONARY CTA WITH PROV FFR-CT [facility] Name: [facility]N [facility] 1965 [id number] Exam Date/Time: 12/16/2024 09:20 Procedure: CT CORONARY CTA WITH PROV FFR-CT Ordering Provider: ORDONEZ CHANDNI Reason For Exam: troponin elevation --------ADDENDUM #1 -------- This is a radiology addendum for the noncardiovascular findings on the CT images of the chest obtained for this examination: There is mild atelectasis at the lung bases. The visualized portion of the chest wall, lungs, and mediastinum are otherwise unremarkable. Please see Dr. Swenson's original report for cardiovascular findings and recommendations. Report Dictated on Electronically Signed By: Marguerite Gerardo MD Electronically Signed Date/Time: 12/16/2024 4:50 PM EDT --------ORIGINAL REPORT -------- Coronary CTA Indication: 59 year-old woman admitted to the hospital with positive troponin. Study performed to evaluate for coronary artery disease. Technique: Computed tomography of the heart and surrounding structures was performed using a Oxford multidetector scanner with cardiac gating and dose reduction techniques. Images were reconstructed and analyzed on an advanced post-processing 3D workstation. Sublingual nitroglycerin was administered for coronary dilation and oral metoprolol was taken in advance for heart rate optimization. See nursing notes for additional details of medications given in the CT department. Contrast: 75 mL Total DLP = 187.18 mGy-cm Study Quality: excellent. Extracardiac Findings: Bibasilar atelectasis. Mild degenerative changes of the thoracic spine. Cardiac Chambers and Valves: The pericardium is unremarkable. The left and right ventricles are normal in size. The left and right atria are normal in size. The left atrial appendage is normal in appearance. The mitral valve is unremarkable by CT appearance. The aortic valve is trileaflet. Great Vessels: The ascending aorta measures 3.9cm at the level of the pulmonary artery bifurcation. The aortic arch is not included in the present study. The included portions of the descending thoracic aorta are normal in size. Mild calcification of the descending aorta. Coronary Calcium Score: Artery Score LMT 0 LAD 0 LCx 0 RCA 9 - TOTAL 9 Coronary Anatomy: The coronaries have normal origins. There is a pattern of right coronary dominance. Left Main Trunk: This is a large vessel that bifurcates normally into the LAD and LCx. There is no atherosclerotic plaque and no luminal stenosis in the left main trunk. Left Anterior Descending Artery: This is a large vessel that extends to the apex after providing 2 diagonal branches. There is no atherosclerotic plaque and no luminal stenosis in the LAD or its branches. Left Circumflex Artery: This is a medium-sized non-dominant vessel that gives rise to 1 obtuse marginal branch. After the OM1 branch the true circumflex in the AV groove is a diminutive vessel not included for CAD-RADS. There is no atherosclerotic plaque and no luminal stenosis in the LCx or its branches. Right Coronary Artery: This is a large dominant vessel. It gives rise to a medium-sized PDA and small posterior ventricular branch. There is no atherosclerotic plaque and no luminal stenosis in the RCA or its branches. CONCLUSIONS: 1. No evidence of atherosclerotic changes or luminal stenosis in the coronary arteries. 2. The coronary calcium score is 9 (Agatston method). 3. Ascending aorta measures 3.9cm at the level of the pulmonary artery bifurcation. FFR-CT OPTION: FFR-CT is not requested for this study. CAD-RADS 0 / P1 Recommendation: Preventive pharmacotherapy and risk factor modification. Consider non-atherosclerotic causes of symptoms. Report Dictated on Electronically Signed By: Howard Swenson Electronically Signed Date/Time: 12/16/2024 1:12 PM EDT Patient Name: KAROLINA AHN DOB: 1965 Exam Date/Time: 12/16/2024 09:20 Procedure: CT CORONARY CTA WITH PROV FFR-CT Ordering Provider: ORDONEZ CHANDNI Reason For Exam: troponin elevation Coronary CTA Indication: 59 year-old woman admitted to the hospital with positive troponin. Study performed to evaluate for coronary artery disease. Technique: Computed tomography of the heart and surrounding structures was performed using a Oxford multidetector scanner with cardiac gating and dose reduction techniques. Images were reconstructed and analyzed on an advanced post-processing 3D workstation. Sublingual nitroglycerin was administered for coronary dilation and oral metoprolol was taken in advance for heart rate optimization. See nursing notes for additional details of medications given in the CT department. Contrast: 75 mL Total DLP = 187.18 mGy-cm Study Quality: excellent. Extracardiac Findings: Bibasilar atelectasis. Mild degenerative changes of the thoracic spine. Car (more content not included)... Normal [facility] CTA Heart and Coronary arter ies WO and W contrast Wilberto 12-16-2024 Addendum by Marguerite Gerardo MD on 12/16/2024 4:50 PM EDT Patient Name: KAROLINA AHN : 1965 Exam Date/Time: 12/16/2024 09:20 Procedure: CT CORONARY CTA WITH PROV FFR-CT Ordering Provider: ORDONEZ CHANDNI Reason For Exam: troponin elevation --------ADDENDUM #1 -------- This is a radiology addendum for the noncardiovascular findings on the CT images of the chest obtained for this examination: There is mild atelectasis at the lung bases. The visualized portion of the chest wall, lungs, and mediastinum are otherwise unremarkable. Please see Dr. Swenson's original report for cardiovascular findings and recommendations. Report Dictated on Electronically Signed By: Marguerite Gerardo MD Electronically Signed Date/Time: 12/16/2024 4:50 PM EDT --------ORIGINAL REPORT -------- Coronary CTA Indication: 59 year-old woman admitted to the hospital with positive troponin. Study performed to evaluate for coronary artery disease. Technique: Computed tomography of the heart and surrounding structures was performed using a Yolette multidetector scanner with cardiac gating and dose reduction techniques. Images were reconstructed and analyzed on an advanced post-processing 3D workstation. Sublingual nitroglycerin was administered for coronary dilation and oral metoprolol was taken in advance for heart rate optimization. See nursing notes for additional details of medications given in the CT department. Contrast: 75 mL Total DLP = 187.18 mGy-cm Study Quality: excellent. Extracardiac Findings: Bibasilar atelectasis. Mild degenerative changes of the thoracic spine. Cardiac Chambers and Valves: The pericardium is unremarkable. The left and right ventricles are normal in size. The left and right atria are normal in size. The left atrial appendage is normal in appearance. The mitral valve is unremarkable by CT appearance. The aortic valve is trileaflet. Great Vessels: The ascending aorta measures 3.9cm at the level of the pulmonary artery bifurcation. The aortic arch is not included in the present study. The included portions of the descending thoracic aorta are normal in size. Mild calcification of the descending aorta. Coronary Calcium Score: Artery Score LMT 0 LAD 0 LCx 0 RCA 9 - TOTAL 9 Coronary Anatomy: The coronaries have normal origins. There is a pattern of right coronary dominance. Left Main Trunk: This is a large vessel that bifurcates normally into the LAD and LCx. There is no atherosclerotic plaque and no luminal stenosis in the left main trunk. Left Anterior Descending Artery: This is a large vessel that extends to the apex after providing 2 diagonal branches. There is no atherosclerotic plaque and no luminal stenosis in the LAD or its branches. Left Circumflex Artery: This is a medium-sized non-dominant vessel that gives rise to 1 obtuse marginal branch. After the OM1 branch the true circumflex in the AV groove is a diminutive vessel not included for CAD-RADS. There is no atherosclerotic plaque and no luminal stenosis in the LCx or its branches. Right Coronary Artery: This is a large dominant vessel. It gives rise to a medium-sized PDA and small posterior ventricular branch. There is no atherosclerotic plaque and no luminal stenosis in the RCA or its branches. CONCLUSIONS: 1. No evidence of atherosclerotic changes or luminal stenosis in the coronary arteries. 2. The coronary calcium score is 9 (Agatston method). 3. Ascending aorta measures 3.9cm at the level of the pulmonary artery bifurcation. FFR-CT OPTION: FFR-CT is not requested for this study. CAD-RADS 0 / P1 Recommendation: Preventive pharmacotherapy and risk factor modification. Consider non-atherosclerotic causes of symptoms. Report Dictated on Electronically Signed By: Howard Swenson Electronically Signed Date/Time: 12/16/2024 1:12 PM T [facility] Patient Name: KAROLINA AHN : 1965 [facility]#: [id number] Exam Date/Time: 12/16/2024 09:20 Procedure: CT CORONARY CTA WITH PROV FFR-CT Ordering Provider: ORDONEZ CHANDNI Reason For Exam: troponin elevation Coronary CTA Indication: 59 year-old woman admitted to the hospital with positive troponin. Study performed to evaluate for coronary artery disease. Technique: Computed tomography of the heart and surrounding structures was performed using a Yolette multidetector scanner with cardiac gating and dose reduction techniques. Images were reconstructed and analyzed on an advanced post-processing 3D workstation. Sublingual nitroglycerin was administered for coronary dilation and oral metoprolol was taken in advance for heart rate optimization. See nursing notes for additional details of medications given in the CT department. Contrast: 75 mL Total DLP = 187.18 mGy-cm Study Quality: excellent. Extracardiac Findings: Bibasilar atelectasis. Mild degenerative changes of the thoracic spine. Cardiac Chambers and Valves: The pericardium is unremarkable. The left and right ventricles are normal in size. The left and right atria are normal in size. The left atrial appendage is normal in appearance. The mitral valve is unremarkable by CT appearance. The aortic valve is trileaflet. Great Vessels: The ascending aorta measures 3.9cm at the level of the pulmonary artery bifurcation. The aortic arch is not included in the present study. The included portions of the descending thoracic aorta are normal in size. Mild calcification of the descending aorta. Coronary Calcium Score: Artery Score LMT 0 LAD 0 LCx 0 RCA 9 - TOTAL 9 Coronary Anatomy: The coronaries have normal origins. There is a pattern of right coronary dominance. Left Main Trunk: This is a large vessel that bifurcates normally into the LAD and LCx. There is no atherosclerotic plaque and no luminal stenosis in the left main trunk. Left Anterior Descending Artery: This is a large vessel that extends to the apex after providing 2 diagonal branches. There is no atherosclerotic plaque and no luminal stenosis in the LAD or its branches. Left Circumflex Artery: This is a medium-sized non-dominant vessel that gives rise to 1 obtuse marginal branch. After the OM1 branch the true circumflex in the AV groove is a diminutive vessel not included for CAD-RADS. There is no atherosclerotic plaque and no luminal stenosis in the LCx or its branches. Right Coronary Artery: This is a large dominant vessel. It gives rise to a medium-sized PDA and small posterior ventricular branch. There is no atherosclerotic plaque and no luminal stenosis in the RCA or its branches. CONCLUSIONS: 1. No evidence of atherosclerotic changes or luminal stenosis in the coronary arteries. 2. The coronary calcium score is 9 (Agatston method). 3. Ascending aorta measures 3.9cm at the level of the pulmonary artery bifurcation. FFR-CT OPTION: FFR-CT is not requested for this study. CAD-RADS 0 / P1 Recommendation: Preventive pharmacotherapy and risk factor modification. Consider non-atherosclerotic causes of symptoms. Report Dictated on Electronically Signed By: Howard Swenson Electronically Signed Date/Time: 12/16/2024 1:12 PM T [facility] EMERGENCY DEPARTMENT RADIOLOGY SYSTEM Howard Swenson M D / Marguerite Gerardo MD - 12/16/2024 [facility] Name: [facility] 1965 [id number] Exam Date/Time: 12/16/2024 09:20 Procedure: CT CORONARY CTA WITH PROV FFR-CT Ordering Provider: ORDONEZ CHANDNI Reason For Exam: troponin elevation Coronary CTA Indication: 59 year-old woman admitted to the hospital with positive troponin. Study performed to evaluate for coronary artery disease. Technique: Computed tomography of the heart and surrounding structures was performed using a Oxford multidetector scanner with cardiac gating and dose reduction techniques. Images were reconstructed and analyzed on an advanced post-processing 3D workstation. Sublingual nitroglycerin was administered for coronary dilation and oral metoprolol was taken in advance for heart rate optimization. See nursing notes for additional details of medications given in the CT department. Contrast: 75 mL Total DLP = 187.18 mGy-cm Study Quality: excellent. Extracardiac Findings: Bibasilar atelectasis. Mild degenerative changes of the thoracic spine. Cardiac Chambers and Valves: The pericardium is unremarkable. The left and right ventricles are normal in size. The left and right atria are normal in size. The left atrial appendage is normal in appearance. The mitral valve is unremarkable by CT appearance. The aortic valve is trileaflet. Great Vessels: The ascending aorta measures 3.9cm at the level of the pulmonary artery bifurcation. The aortic arch is not included in the present study. The included portions of the descending thoracic aorta are normal in size. Mild calcification of the descending aorta. Coronary Calcium Score: Artery Score LMT 0 LAD 0 LCx 0 RCA 9 - TOTAL 9 Coronary Anatomy: The coronaries have normal origins. There is a pattern of right coronary dominance. Left Main Trunk: This is a large vessel that bifurcates normally into the LAD and LCx. There is no atherosclerotic plaque and no luminal stenosis in the left main trunk. Left Anterior Descending Artery: This is a large vessel that extends to the apex after providing 2 diagonal branches. There is no atherosclerotic plaque and no luminal stenosis in the LAD or its branches. Left Circumflex Artery: This is a medium-sized non-dominant vessel that gives rise to 1 obtuse marginal branch. After the OM1 branch the true circumflex in the AV groove is a diminutive vessel not included for CAD-RADS. There is no atherosclerotic plaque and no luminal stenosis in the LCx or its branches. Right Coronary Artery: This is a large dominant vessel. It gives rise to a medium-sized PDA and small posterior ventricular branch. There is no atherosclerotic plaque and no luminal stenosis in the RCA or its branches. CONCLUSIONS: 1. No evidence of atherosclerotic changes or luminal stenosis in the coronary arteries. 2. The coronary calcium score is 9 (Agatston method). 3. Ascending aorta measures 3.9cm at the level of the pulmonary artery bifurcation. FFR-CT OPTION: FFR-CT is not requested for this study. CAD-RADS 0 / P1 Recommendation: Preventive pharmacotherapy and risk factor modification. Consider non-atherosclerotic causes of symptoms. Report Dictated on Electronically Signed By: Howard Swenson Electronically Signed Date/Time: 12/16/2024 1:12 PM EDT [facility] Radiology Study observation (narrative) [facility] alth CTA Heart and Coronary arter ies WO and W contrast IVOrdered By: Marguerite Gerardo on 12-16-2024 [facility] No Panel Informationon 12-16 There is no interpretation needed for this exam. IMAGING Nursing Noteon 12-16-2024 Nursing Note Patient blood pressure 90/55(63). She feels fine no complaints in talking with family. Left leg with deja wrap intact no bleeding noted. Dr Shields Normal [facility] Nursing Note Patient heparin restarted per order now that she is back from surgery. She did go to surgery shortly after last PTT drawn and gtt was stopped when she went per surgery Normal [facility] Nursing Note Patient returned fro m PACU. She is alert and oriented. She states she currently is having no pain. Deja wrap to left leg dry and intact. Call light in reach and family at bedside Normal [facility] Nursing Note Patients family sent to room [facility] Nursing Note To or [facility] Op Noteon 12-16-2024 Op Note Date: 12/16/2024 Location: [facility] OR Name: Karolina Ahn, : 1965, Diagnosis Pre-op Diagnosis * Acute deep vein thrombosis (DVT) of proximal vein of left lower extremity (HCC) [I82.4Y2] Post-op Diagnosis * Acute deep vein thrombosis (DVT) of proximal vein of left lower extremity (HCC) [I82.4Y2] Procedures MECHANICAL THROMBECTOMY LEFT ILIAC VEIN 28287 - [facility]W/CATH VENA CAVA ILIAC VEIN ABDL INC Surgeons * Charissa Short - Primary Procedure Summary Anesthesia: General ASA: III Estimated Blood Loss: 500 mL Drains: * None in log * Staff: Feller Buncher Operator: Guanako Elam RN Relief Scrub: Suhail Zarate RN Scrub Person: Eileen Ricardo Findings: 2 sutures behind left knee, leg wrapped Complications: None; patient tolerated the procedure well. Specimens Collected: No specimens collected during this procedure. Wound Class: Class I: Clean Blood Products: None Prophylactic Antibiotics: Pre-operative antibiotics were not given because antibiotics are not indicated for this procedure. [facility] Progress Noteon 12-16-2024 Progress Note Nutrition rescreen completed. Chart reviewed. Patient to be monitored and followed by the diet alignment technician. [facility] Progress Note - Attestation signed by Charissa Short MD at 12/16/2024 11:38 AM I saw and evaluated the patient. I agree with the findings and plan of care as documented in the resident?s note unless otherwise noted below. Plan for left lower extremity/iliac vein mechanical thrombectomy today. All questions have been answered to the patient's satisfaction and she has elected to proceed. Department of Vascular Surgery PATIENT NAME: Karolina Ahn : 1965 ATTENDING PHYSICIAN: Alen Ordonez DO ADMIT DATE: 12/14/2024 TODAY'S DATE: 12/16/2024 SUBJECTIVE NAEO. LLE swelling persistent. No change in motor/sensory fxn. Denies dizziness/lightheadne ss, yamel, cp. Affirms NPO for procedure. OBJECTIVE VITALS: BP 101/63 (BP Location: Left arm, Patient Position: Lying) Pulse (!) 48 Temp 36.2 ?C (97.1 ?F) (Temporal) Resp 16 Ht 1.626 m (5' 4) Wt 65.8 kg (145 lb) SpO2 94% BMI 24.89 kg/m? PHYSICAL EXAM: Physical Exam Vitals reviewed. Constitutional: [...] acute left dvt of ileofemoral system. - Eliquis held, Cont on hep gtt, aptts therapeutic - thrombectomy today, informed consent obtained - npo for procedure - continue elevation and compression - remainder per primary - will follow Gala Pa MD PGY-4, General Surgery Pager# [phone] 12/16/2024 6:37 AM [1] atorvastatin, 40 mg, [...] (PEG) 3350, sodium chloride, sodium chloride 0.9% Normal [facility] aPTT Coag (Bld) [Time]on aPTT Coag (PPP) [Time] 50.8 s High 20.0 - 30.5 s [facility] Interpretation and review of laboratory results Abnormal [facility] NOTE: The therapeuti c time for Heparin anticoagulation, based on Xa activity inhibition, is an APTT of 46-80 seconds. [facility] aPTT Coag (PPP) [Time] 56.9 s High 20.0 - 30.5 s [facility] Interpretation and review of laboratory results Abnormal [facility] NOTE: The therapeuti c time for Heparin anticoagulation, based on Xa activity inhibition, is an APTT of 46-80 seconds. [facility] aPTT Coag (PPP) [Time] 58.7 s High 20.0 - 30.5 s [facility] Interpretation and review of laboratory results Abnormal [facility] NOTE: The therapeuti c time for Heparin anticoagulation, based on Xa activity inhibition, is an APTT of 46-80 seconds. [facility] APTTon 12-15-2024 aPTT Coag (Bld) [Time] 101.1 s High 20.0-30.5 [facility] Comment on above: Result Comment: CELESTE Joseph COMMENTS: NOTE: The therapeutic time for Heparin anticoagulation, based on Xa activity inhibition, is an APTT of 46-80 seconds. Performed By: #### L [id number] ####Neckties Painter: AVERY WORTHINGTON ([id number])[facility] ([address] aPTT Coag (Bld) [Time] 26.6 s Normal 20.0-30.5 [facility] Comment on above: Result Comment: CELESTE Joseph COMMENTS: NOTE: The therapeutic time for Heparin anticoagulation, based on Xa activity inhibition, is an APTT of 46-80 seconds. Performed By: #### L [id number] ####Neckties Painter: AVERY WORTHINGTON ([phone])[facility])[address] [place] [address] BASIC METABOLIC PANELon 08- Anion gap [Moles/Vol] 5 mmol/L Normal 3-13 [facility] Comment on above: Performed By: #### L [id number] ####Neckties Painter: AVERY WORTHINGTON ([id number])[facility] ([facility])[address] [place] [address] Calcium [Mass/Vol] 8.9 mg/dL Normal 8.4-10.2 [facility] Comment on above: Performed By: #### L [id number] ####Neckties Painter: AVERY WORTHINGTON ([phone])[facility] ([facility])[address] [place] [address] Chloride [Moles/Vol] 108 mmol/L High 98-107 [facility] Comment on above: Performed By: #### L [id number] ####Neckties Painter: AVERY WORTHINGTON ([id number])[facility] ([facility])[address] [place] [address] CO2 [Moles/Vol] 27 mmol/L Normal 22-29 [facility] Comment on above: Performed By: #### L [id number] ####Neckties Painter: AVERY WORTHINGTON ([phone])[facility])[address] [place] [address] Creatinine [Mass/Vol] 0.71 mg/dL Normal 0.57-1.11 [facility] Comment on above: Performed By: #### L [id number] ####Neckties Painter: AVERY WORTHINGTON ([phone])[facility])[address] [place] [address] GLOMERULAR FILTRATION RATE ML/MIN/1.73 SQ M.PREDICTED >90.0 Normal >60.0 [facility] Comment on above: Result Comment: Calc ulation based on the Chronic Kidney Disease Epidemiology Collaboration (CKD-EPI) equation refit without adjustment for race Performed By: #### L [id number] ####Neckties Painter: AVERY WORTHINGTON ([id number])[address] Glucose [Mass/Vol] 93 mg/dL Normal 74-100 [facility] Comment on above: Performed By: #### L AB15 ####Neckties Painter: AVERY WORTHINGTON ([id number])[facility])[address] [place] [address] Potassium [Moles/Vol] 4.2 mmol/L Normal 3.5-5.1 [facility] Comment on above: Result Comment: [facility] potassium values may be up to 0.5 mmol/L lower than serum values. Performed By: #### L AB15 ####Neckties Painter: AVERY WORTHINGTON ([id number])[address] Sodium [Moles/Vol] 140 mmol/L Normal 136-145 [facility] Comment on above: Performed By: #### L AB15 ####Neckties Painter: AVERY WORTHINGTON ([id number])[address] Urea nitrogen [Mass/Vol] 14 mg/dL Normal 9-23 [facility] Comment on above: Performed By: #### L AB15 ####Neckties Painter: AVERY WORTHINGTON ([id number])[address] Basic metabolic 1998 panelon 12-15-2024 Anion gap [Moles/Vol] 5 mmol/L 3 - 13 mmol/L [facility] Calcium [Mass/Vol] 8.9 mg/dL 8.4 - 10. 2 mg/dL [facility] Chloride [Moles/Vol] 108 mmol/L High 98 - 10 7 mmol/L [facility] CO2 [Moles/Vol] 27 mmol/L 22 - 29 mmol/L [facility] Creatinine [Mass/Vol] 0.71 mg/dL 0.57 - 1.11 mg/dL [facility] GFR/1.73 sq M.predicted (S/P/Bld) [Vol rate/Area] - PINF [facility] Comment on above: Calculation based on the Chronic Kidney Disease Epidemiology Collaboration (CKD-EPI) equation refit without adjustment for race Glucose [Mass/Vol] 93 mg/dL 74 - 100 mg/dL [facility] Interpretation and review of laboratory results Abnormal [facility] Potassium [Moles/Vol] 4.2 mmol/L 3.5 - 5.1 mmol/L [facility] Comment on above: Plasma potassium harini ues may be up to 0.5 mmol/L lower than serum values. Sodium [Moles/Vol] 140 mmol/L 136 - 145 mmol/L [facility] Urea nitrogen [Mass/Vol] 14 mg/dL 9 - 23 mg/dL [facility] CBC W Auto Differential pane l (Bld)on 12-15-2024 Basophils (Bld) [#/Vol] 0 10*3/uL 0.0 - 0.2 10*3/uL [facility] Basophils/100 WBC (Bld) 0.7 % 0.0 - 2.0 % [facility] Eosinophils (Bld) [#/Vol] 0.6 10*3/uL High 0.0 - 0.5 10*3/uL [facility] Eosinophils/100 WBC (Bld) 9.8 % High 0.0 - 6.0 % [facility] Erythrocyte distribution width (RBC) [Ratio] 12.7 % 11.5 - 15.0 % [facility] Hematocrit (Bld) [Volume fraction] 36.1 % 35.0 - 47.0 % [facility] Hemoglobin (Bld) [Mass/Vol] 11.6 g/dL Low 11.7 - 16.0 g/dL [facility] Immature granulocytes (Bld) [#/Vol] 0 10*3/uL NINF - 0.1 10*3/uL [facility] Immature granulocytes/100 WBC (Bld) 0.3 % 0.0 - 2.0 % [facility] Interpretation and review of laboratory results Abnormal [facility] [place] Lymphocytes (Bld) [#/Vol] 1.4 10*3/uL 1.0 - 4.3 10*3/uL [facility] Lymphocytes/100 WBC (Bld) 23.5 % 15.0 - 45.0 % [facility] MCH (RBC) [Entitic mass] 29.4 pg 26.0 - 34.0 pg [facility] MCHC (RBC) [Mass/Vol] 32.1 % 30.5 - 36.0 % [facility] MCV (RBC) [Entitic vol] 91.4 fL 77.0 - 99.0 fL [facility] Monocytes (Bld) [#/Vol] 0.5 10*3/uL 0.0 - 0.9 10*3/uL [facility] Monocytes/100 WBC (Bld) 8.3 % 5.0 - 13.0 % [facility] Neutrophils (Bld) [#/Vol] 3.5 10*3/uL 1.8 - 7.5 10*3/uL [facility] Neutrophils/100 WBC (Bld) 57.4 % 38.0 - 82.0 % [facility] Nucleated RBC/100 WBC (Bld) [Ratio] 0 % [facility] Platelet mean volume (Bld) [Entitic vol] 9.8 fL 9.0 - 12.7 fL [facility] Platelets (Bld) [#/Vol] 204 10*3/uL 140 - 440 10*3/uL [facility] RBC (Bld) [#/Vol] 3.95 10*6/uL 3.80 - 5.2 0 10*6/uL [facility] WBC (Bld) [#/Vol] 6.1 10*3/uL 3.6 - 10.7 10*3/uL [facility] CBC WITH AUTO DIFFERENTIALon 12-15-2024 Basophils (Bld) [#/Vol] 0.0 10*3/uL Normal 0.0-0.2 [facility] Comment on above: Performed By: #### L [id number] ####Neckties Painter: AVERY WORTHINGTON ([phone])[address] Basophils/100 WBC (Bld) 0.7 % Normal 0.0-2.0 [facility] Comment on above: Performed By: #### L [id number] ####Neckties Painter: AVERY WORTHINGTON ([id number])[facility])[address] [place] [address] Eosinophils (Bld) [#/Vol] 0.6 10*3/uL High 0.0-0.5 [facility] Comment on above: Performed By: #### L [id number] ####Neckties Painter: AVERY WORTHINGTON ([id number])[facility])[address] [place] [address] Eosinophils/100 WBC (Bld) 9.8 % High 0.0-6.0 [facility] Comment on above: Performed By: #### L [id number] ####Neckties Painter: AVERY WORTHINGTON ([id number])[facility])[address] [place] [address] Erythrocyte distribution width (RBC) [Ratio] 12.7 % Normal 11.5-15.0 [facility] Comment on above: Performed By: #### L [id number] ####Neckties Painter: AVERY WORTHINGTON ([id number])[facility])[address] [place] [address] Hematocrit (Bld) [Volume fraction] 36.1 % Normal 35.0-47.0 [facility] Comment on above: Performed By: #### L [id number] ####Neckties Painter: AVERY WORTHINGTON ([id number])[facility])[address] [place] [address] Hemoglobin (Bld) [Mass/Vol] 11.6 g/dL Low 11.7-16.0 [facility] Comment on above: Performed By: #### L [id number] ####Neckties Painter: AVERY WORTHINGTON ([id number])[facility])[address] [place] [address] IMMATURE GRANS % 0.3 % Normal 0.0-2.0 [facility] Comment on above: Performed By: #### L [id number] ####Neckties Painter: AVERY WORTHINGTON ([id number])[facility])[address] [place] [address] IMMATURE GRANS ABSOLUTE 0.0 10*3/uL Normal <0.1 [facility] Comment on above: Performed By: #### L [id number] ####Neckties Painter: AVERY WORTHINGTON ([id number])[facility])[address] [place] [address] Lymphocytes (Bld) [#/Vol] 1.4 10*3/uL Normal 1.0-4.3 [facility] Comment on above: Performed By: #### L [id number] ####Neckties Painter: AVERY WORTHINGTON ([id number])[facility])[address] [place] [address] Lymphocytes/100 WBC (Bld) 23.5 % Normal 15.0-45.0 [facility] Comment on above: Performed By: #### L [id number] ####Neckties Painter: AVERY WORTHINGTON ([id number])[facility])[address] [place] [address] MCH (RBC) [Entitic mass] 29.4 pg Normal 26.0-34.0 [facility] Comment on above: Performed By: #### L [id number] ####Neckties Painter: AVERY WORTHINGTON ([id number])[facility])[address] [place] [address] MCHC 32.1 % Normal 30.5-36.0 [facility] Comment on above: Performed By: #### L [id number] ####Neckties Painter: AVERY WORTHINGTON ([id number])[facility])[address] [place] [address] MCV (RBC) [Entitic vol] 91.4 fL Normal 77.0-99.0 [facility] Comment on above: Performed By: #### L [id number] ####Neckties Painter: AVERY WORTHINGTON ([id number])[facility])[address] [place] [address] Monocytes (Bld) [#/Vol] 0.5 10*3/uL Normal 0.0-0.9 [facility] Comment on above: Performed By: #### L [id number] ####Neckties Painter: AVERY WORTHINGTON ([id number])[facility] ([facility])[address] [place] [address] Monocytes/100 WBC (Bld) 8.3 % Normal 5.0-13.0 [facility] Comment on above: Performed By: #### L [id number] ####Neckties Painter: AVERY WORTHINGTON ([id number])[facility] ([facility])[address] [place] [address] NEUTROPHILS ABSOLUTE 3.5 10*3/uL Normal 1.8-7.5 [facility] Comment on above: Performed By: #### L [id number] ####Neckties Painter: AVERY WORTHINGTON ([id number])[facility] ([facility])[address] [place] [address] Neutrophils/100 WBC (Bld) 57.4 % Normal 38.0-82.0 [facility] Comment on above: Performed By: #### L [id number] ####Neckties Painter: AVERY WORTHINGTON ([id number])[facility] ([facility])[address] [place] [address] NRBC 0.0 /100 WBCs Normal 0.0-2.0 [facility] Comment on above: Performed By: #### L [id number] ####Neckties Painter: AVERY WORTHINGTON ([id number])[facility] ([facility])[address] [place] [address] Platelet mean volume (Bld) [Entitic vol] 9.8 fL Normal 9.0-12.7 [facility] Comment on above: Performed By: #### L [id number] ####Neckties Painter: AVERY WORTHINGTON ([id number])[facility] ([facility])[address] [place] [address] [place] Platelets (Bld) [#/Vol] 204 10*3/uL Normal 140-440 [facility] Comment on above: Performed By: #### L [id number] ####Neckties Painter: AVERY WORTHINGTON ([id number])[facility] ([facility])[address] [place] [address] RBC (Bld) [#/Vol] 3.95 10*6/uL Normal 3.80-5.20 [facility] Comment on above: Performed By: #### L [id number] ####Neckties Painter: AVERY WORTHINGTON ([id number])[facility] ([facility])[address] [place] [address] WBC (Bld) [#/Vol] 6.1 10*3/uL Normal 3.6-10.7 [facility] Comment on above: Performed By: #### L [id number] ####Neckties Painter: AVERY WORTHINGTON ([id number])[facility])[address] [place] [address] Consulton 12-15-2024 Consult - Attestation with edits by Charissa Short MD at 12/15/2024 3:47 PM I saw and evaluated the patient. I agree with the findings and plan of care as documented in the resident?s note unless otherwise noted below. Patient with history of iliac vein stents secondary to what sounds like pelvic congestion syndrome back in 09/[address] [place] [address] Goldberg. The patient also subsequently [...] 12/17. NPO at midnight. Continue heparin gtt. Vascular Surgery Consultation Note Reason for Consult: [...] last week and BLE venous duplex at [place] reportedly demonstrated occlusion of left CIV stent, and associated acute DVT of LCFV, EIV, FV, PopV, T/P Trunk, PTV, Peroneal/Gastroc/Sole al vv. Pt was switched back from Plavix to Eliquis on Saturday (12/11) with plan for admission to [place] 12/23 for heparin bridge and thrombectomy by [...] with similar findings as prior study at [place] (see full reports below). IMPRESSION: Occluded left internal iliac vein stent, acute occlusive DVTs of left common/internal/exter nal iliacs and common femoral vein. RECOMMENDATIONS: - [...] Neurological: Negative for dizziness, weakness, light-headedness and numbne (more content not included)... Normal [facility] ECG 12-LEADon 12-15-2024 ECG 12-LEAD IMPRESSION: Sinus rhythm No previous ECG for comparison Electronically Signed On 12-15-2024 04:17:34 EDT by Damien Rahman Normal [facility] ED Nursing Noteon 12-15-2024 ED Nursing Note Transport at bedside . Per tele order patient is okay to go off tele monitor for transport. Normal [facility] ED Nursing Note Pt placed on tele monitor at this time. Normal [facility] ED Nursing Note This RN called Bed Coordinator in regards to bed being removed from patient chart. Per Bed Coordinator patient will be going to 1C 136A. Normal [facility] ED Nursing Note Secure chat sent to DO Lyndsey at this time in regards to no tele order at this time. Normal [facility] ED Nursing Note Pt ordering meal tra y at this time. Normal [facility] ED Nursing Note Pt rounded on at thi s time. Pt resting in bed. Breathing even and unlabored. No signs of distress noted. RR 19. Normal [facility] ED Nursing Note Report to CHERI Ruiz. Normal [facility] ED Nursing Note Pt provided meal tra y at this time. Normal [facility] ED Nursing Note Pt provided diet menu. Normal [facility] ED [facility]. Normal [facility] No Panel InformationOrdered By: Damien Rahman on 12-15-2024 P Heaters 50 degrees [facility] [employer] Work Phone: PA Interval 159 ms [facility] [employer] Work Phone: QRS Heaters 1 degrees [employer] Phone: QRSD Interval 85 ms [facility] [employer] Work Phone: QT Interval 369 ms [facility] [employer] Work Phone: QTC Interval 414 ms [employer] Work Phone: T Wave Heaters 37 degrees [employer] Work Phone: [employer] Work Phone: No Panel Informationon 12-15 Sinus rhythm No previous ECG for comparison Electronically Signed On 12-15-2024 04:17:34 EDT by Damien Rahman CV Damien Burrell D O - 12/15/2024 IMPRESSION: Sinus rhythm No previous ECG for comparison Electronically Signed On 12-15-2024 04:17:34 EDT by Damien Rahman [facility] [employer] Lower extremity vein - bi lateralon 12-15-2024 Acute occlusive deep vein thrombosis in the left common iliac vein. Acute occlusive deep vein thrombosis in the left internal iliac vein. Acute occlusive deep vein thrombosis in the left external iliac vein. Acute occlusive deep vein thrombosis in the left common femoral vein. No flow in left profunda femoral vein No evidence of deep vein or superficial vein thrombosis in the right lower extremity. Vessels demonstrate normal compressibility, color filling, and phasic and spontaneous flow. No evidence of superficial thrombosis in the left lower extremity. Study Details A lindsay scale, color Doppler imaging and spectral Doppler analysis ultrasound was performed. During the study longitudinal and transverse views were obtained. Pulsed wave doppler was performed. The exam was performed with the patient in the supine position. Overall the study quality was adequate. Right Lower Venous No evidence of deep vein or superficial vein thrombosis. The common femoral, saphenofemoral junction, femoral, popliteal, gastrocnemius, soleal, greater saphenous, posterior tibial, and peroneal veins were imaged in the transverse view and showed normal compressibility. The common femoral, middle femoral, and popliteal veins were imaged in the longitudinal view and showed normal color filling and normal phasic and spontaneous flow. Right pop vein is very large at 1.80 x 2.33 cm. Left Lower Venous No evidence of superficial thrombosis in the left lower extremity. Inferior vena cava: Patent. Common Iliac Vein: Acute occlusive thrombus. Noncompressible. Internal Iliac Vein: Acute occlusive thrombus. Noncompressible. External Iliac Vein: Acute occlusive thrombus. Noncompressible. Common Femoral Vein: Acute occlusive thrombus. Noncompressible. Greater Saphenous Vein: Thigh patent, compressible. Small Saphenous Vein: Patent, compressible. Proximal Femoral Vein: Fully compressible. Middle Femoral Vein: Fully compressible. Distal Femoral Vein: Fully compressible. Popliteal Vein: Fully compressible. Gastrocnemius Vein: Patent, compressible. Soleal Vein: Patent, compressible. Posterior Tibial Vein: Patent, compressible. Peroneal Vein: Patent, compressible. CV CPACS Vital signsOrdered By: Dalila Rahman on 12-15-2024 Heart rate 75 /min bpm [employer] Work Phone: aPTT Coag (Bld) [Time]Ordere d By: Anna Martino on 12-15-2024 aPTT Coag (PPP) [Time] 101.1 s High 20.0 - 30.5 s [employer] Interpretation and review of laboratory results Abnormal [employer] NOTE: The therapeuti c time for Heparin anticoagulation, based on Xa activity inhibition, is an APTT of 46-80 seconds. Notegraphy aPTT Coag (Bld) [Time]on aPTT Coag (PPP) [Time] 26.6 s 20.0 - 30.5 s [facility] Interpretation and review of laboratory results Normal [facility] NOTE: The therapeuti c time for Heparin anticoagulation, based on Xa activity inhibition, is an APTT of 46-80 seconds. [facility] CBC W Auto Differential pane l (Bld)on 12-14-2024 Basophils (Bld) [#/Vol] 0 10*3/uL 0.0 - 0.2 10*3/uL [facility] [employer] Basophils/100 WBC (Bld) 0.7 % 0.0 - 2.0 % [facility] Eosinophils (Bld) [#/Vol] 0.4 10*3/uL 0.0 - 0.5 10*3/uL [facility] Eosinophils/100 WBC (Bld) 6.4 % High 0.0 - 6.0 % [facility] Erythrocyte distribution width (RBC) [Ratio] 12.8 % 11.5 - 15.0 % [facility] Hematocrit (Bld) [Volume fraction] 38.1 % 35.0 - 47.0 % [facility] Hemoglobin (Bld) [Mass/Vol] 12.5 g/dL 11.7 - 16.0 g/dL [facility] Immature granulocytes (Bld) [#/Vol] 0 10*3/uL NINF - 0.1 10*3/uL [facility] [employer] Immature granulocytes/100 WBC (Bld) 0.2 % 0.0 - 2.0 % [facility] Interpretation and review of laboratory results Abnormal [facility] Lymphocytes (Bld) [#/Vol] 0.9 10*3/uL Low 1.0 - 4.3 10*3/uL [facility] [employer] Lymphocytes/100 WBC (Bld) 16.2 % 15.0 - 45.0 % [facility] MCH (RBC) [Entitic mass] 29.9 pg 26.0 - 34.0 pg [facility] MCHC (RBC) [Mass/Vol] 32.8 % 30.5 - 36.0 % [facility] MCV (RBC) [Entitic vol] 91.1 fL 77.0 - 99.0 fL [facility] Monocytes (Bld) [#/Vol] 0.4 10*3/uL 0.0 - 0.9 10*3/uL [facility] [employer] Monocytes/100 WBC (Bld) 6.6 % 5.0 - 13.0 % [facility] Neutrophils (Bld) [#/Vol] 4.1 10*3/uL 1.8 - 7.5 10*3/uL [facility] Neutrophils/100 WBC (Bld) 69.9 % 38.0 - 82.0 % [facility] Nucleated RBC/100 WBC (Bld) [Ratio] 0 % [facility] Platelet mean volume (Bld) [Entitic vol] 10.2 fL 9.0 - 12.7 fL [facility] Platelets (Bld) [#/Vol] 228 10*3/uL 140 - 440 10*3/uL [facility] RBC (Bld) [#/Vol] 4.18 10*6/uL 3.80 - 5.2 0 10*6/uL [facility] WBC (Bld) [#/Vol] 5.8 10*3/uL 3.6 - 10.7 10*3/uL [facility] CBC WITH AUTO DIFFERENTIALon 12-14-2024 Basophils (Bld) [#/Vol] 0.0 10*3/uL Normal 0.0-0.2 [facility] Comment on above: Performed By: #### L [id number] ####Neckties Painter: AVERY WORTHINGTON ([id number])[address] Basophils/100 WBC (Bld) 0.7 % Normal 0.0-2.0 [facility] Comment on above: Performed By: #### L [id number] ####Neckties Painter: AVERY WORTHINGTON ([id number])[facility] ([facility])[address] [place] [address] Eosinophils (Bld) [#/Vol] 0.4 10*3/uL Normal 0.0-0.5 [facility] Comment on above: Performed By: #### L [id number] ####Neckties Painter: AVERY WORTHINGTON ([id number])[facility])[address] [place] [address] Eosinophils/100 WBC (Bld) 6.4 % High 0.0-6.0 [facility] Comment on above: Performed By: #### L [id number] ####Neckties Painter: AVERY WORTHINGTON ([id number])[address] Erythrocyte distribution width (RBC) [Ratio] 12.8 % Normal 11.5-15.0 [facility] Comment on above: Performed By: #### L [id number] ####Neckties Painter: AVERY WORTHINGTON ([id number])[address] Hematocrit (Bld) [Volume fraction] 38.1 % Normal 35.0-47.0 [facility] Comment on above: Performed By: #### L [id number] ####Neckties Painter: AVERY WORTHINGTON ([id number])[address] Hemoglobin (Bld) [Mass/Vol] 12.5 g/dL Normal 11.7-16.0 [facility] Comment on above: Performed By: #### L [id number] ####Neckties Painter: AVERY WORTHINGTON ([id number])[address] IMMATURE GRANS % 0.2 % Normal 0.0-2.0 [facility] Comment on above: Performed By: #### L [id number] ####Neckties Painter: AVERY WORTHINGTON ([id number])[address] IMMATURE GRANS ABSOLUTE 0.0 10*3/uL Normal <0.1 [facility] Comment on above: Performed By: #### L [id number] ####Neckties Painter: AVERY WORTHINGTON ([id number])[address] Lymphocytes (Bld) [#/Vol] 0.9 10*3/uL Low 1.0-4.3 [facility] Comment on above: Performed By: #### L [id number] ####Neckties Painter: AVERY [id number])[facility] ([facility])[address] [place] [address] Lymphocytes/100 WBC (Bld) 16.2 % Normal 15.0-45.0 [facility] Comment on above: Performed By: #### L [id number] ####Neckties Painter: AVERY WORTHINGTON ([id number])[facility] ([facility])[address] [place] [address] MCH (RBC) [Entitic mass] 29.9 pg Normal 26.0-34.0 [facility] Comment on above: Performed By: #### L [id number] ####Neckties Painter: AVERY WORTHINGTON ([id number])[facility])[address] [place] [address] MCHC 32.8 % Normal 30.5-36.0 [facility] Comment on above: Performed By: #### L [id number] ####Neckties Painter: AVERY WORTHINGTON ([id number])[facility] ([facility])[address] [place] [address] MCV (RBC) [Entitic vol] 91.1 fL Normal 77.0-99.0 [facility] Comment on above: Performed By: #### L [id number] ####Neckties Painter: AVERY WORTHINGTON ([id number])[facility])[address] [place] [address] Monocytes (Bld) [#/Vol] 0.4 10*3/uL Normal 0.0-0.9 [facility] Comment on above: Performed By: #### L [id number] ####Neckties Painter: AVERY WORTHINGTON ([id number])[facility])[address] [place] [address] Monocytes/100 WBC (Bld) 6.6 % Normal 5.0-13.0 [facility] Comment on above: Performed By: #### L [id number] ####Neckties Painter: AVERY WORTHINGTON ([id number])[facility])[address] [place] [address] [place] NEUTROPHILS ABSOLUTE 4.1 10*3/uL Normal 1.8-7.5 [facility] Comment on above: Performed By: #### L [id number] ####Neckties Painter: AVERY WORTHINGTON ([id number])[facility] ([facility])[address] [place] [address] Neutrophils/100 WBC (Bld) 69.9 % Normal 38.0-82.0 [facility] Comment on above: Performed By: #### L [id number] ####Neckties Painter: AVERY WORTHINGTON ([id number])[facility] ([facility])[address] [place] [address] NRBC 0.0 /100 WBCs Normal 0.0-2.0 [facility] Comment on above: Performed By: #### L [id number] ####Neckties Painter: AVERY WORTHINGTON ([id number])[facility] ([facility])[address] [place] [address] Platelet mean volume (Bld) [Entitic vol] 10.2 fL Normal 9.0-12.7 [facility] Comment on above: Performed By: #### L [id number] ####Neckties Painter: AVERY WORTHINGTON ([id number])[facility] ([facility])[address] [place] [address] [place] Platelets (Bld) [#/Vol] 228 10*3/uL Normal 140-440 [facility] Comment on above: Performed By: #### L [id number] ####Neckties Painter: AVERY WORTHINGTON ([id number])[facility] ([facility])[address] [place] [address] [place] RBC (Bld) [#/Vol] 4.18 10*6/uL Normal 3.80-5.20 [facility] Comment on above: Performed By: #### L [id number] ####Neckties Painter: AVERY WORTHINGTON ([id number])[facility] ([facility])[address] [place] [address] [place] WBC (Bld) [#/Vol] 5.8 10*3/uL Normal 3.6-10.7 [facility] Comment on above: Performed By: #### L [id number] ####Neckties Painter: AVERY WORTHINGTON ([id number])[facility] ([facility])[address] [place] [address] COMPREHENSIVE METABOLIC PANE Lazaro 12-14-2024 Albumin [Mass/Vol] 3.3 g/dL Low 3.5-5.0 [facility] Comment on above: Performed By: #### L [id number], [id number] ####Neckties Painter: AVERY WORTHINGTON ([id number])[facility] ([facility])[address] [place] [address] ALP [Catalytic activity/Vol] 117 U/L Normal 40-150 [facility] Comment on above: Performed By: #### L [id number], [id number] ####Neckties Painter: AVERY WORTHINGTON ([id number])[facility] ([facility])[address] [place] [address] ALT [Catalytic activity/Vol] 28 U/L Normal <30 [facility] Comment on above: Performed By: #### L [id number], [id number] ####Neckties Painter: AVERY WORTHINGTON ([id number])[facility] ([facility])[address] [place] [address] Anion gap [Moles/Vol] 6 mmol/L Normal 3-13 [facility] Comment on above: Performed By: #### L [id number], [id number] ####Neckties Painter: AVERY WORTHINGTON ([id number])[facility] ([facility])[address] [place] [address] AST [Catalytic activity/Vol] 31 U/L Normal <34 [facility] Comment on above: Performed By: #### L [id number], [id number] ####Neckties Painter: AVERY WORTHINGTON ([id number])[facility])[address] [place] [address] Bilirubin [Mass/Vol] 0.6 mg/dL Normal <1.2 [facility] Comment on above: Performed By: #### L [id number], [id number] ####Neckties Painter: AVERY WORTHINGTON ([id number])[facility] ([facility] [place] [address] [place] Calcium [Mass/Vol] 8.8 mg/dL Normal 8.4-10.2 [facility] Comment on above: Performed By: #### L [id number], [id number] ####Neckties Painter: AVERY WORTHINGTON ([id number])[facility] ([facility])[address] [place] [address] [place] Chloride [Moles/Vol] 108 mmol/L High 98-107 [facility] Comment on above: Performed By: #### L [id number], [id number] ####Neckties Painter: AVERY WORTHINGTON ([id number])[facility] ([facility])[address] [place] [address] CO2 [Moles/Vol] 25 mmol/L Normal 22-29 [facility] Comment on above: Performed By: #### L [id number], LAB17 ####Neckties Painter: AVERY WORTHINGTON ([id number])[facility])[address] [place] [address] Creatinine [Mass/Vol] 0.78 mg/dL Normal 0.57-1.11 [facility] Comment on above: Performed By: #### L [id number], LAB17 ####Neckties Painter: AVERY WORTHINGTON ([id number])[facility] ([facility])[address] [place] [address] [place] GLOMERULAR FILTRATION RATE ML/MIN/1.73 SQ M.PREDICTED 87.6 mL/min/1.73m*2 Normal >60.0 [facility] Comment on above: Result Comment: Calc ulation based on the Chronic Kidney Disease Epidemiology Collaboration (CKD-EPI) equation refit without adjustment for race Performed By: #### L [id number], [id number] ####Neckties Painter: AVERY WORTHINGTON ([id number])[facility] [place] [address] [place] Glucose [Mass/Vol] 89 mg/dL Normal 74-100 [facility] Comment on above: Performed By: #### L [id number], LAB17 ####Neckties Painter: AVERY WORTHINGTON ([id number])[facility])[address] [place] [address] Potassium [Moles/Vol] 3.5 mmol/L Normal 3.5-5.1 [facility] Comment on above: Result Comment: [facility] potassium values may be up to 0.5 mmol/L lower than serum values. Performed By: #### L [id number], [id number] ####Neckties Painter: AVERY WORTHINGTON ([id number])[facility])[address] [place] [address] Protein [Mass/Vol] 6.8 g/dL Normal 6.4-8.3 [facility] Comment on above: Performed By: #### L [id number], LAB17 ####Neckties Painter: AVERY WORTHINGTON ([id number])[facility])[address] [place] [address] Sodium [Moles/Vol] 139 mmol/L Normal 136-145 [facility] Comment on above: Performed By: #### L [id number], [id number] ####Neckties Painter: AVERY WORTHINGTON ([id number])[facility])[address] [place] [address] Urea nitrogen [Mass/Vol] 16 mg/dL Normal 9-23 [facility] Comment on above: Performed By: #### L [id number], LAB17 ####Neckties Painter: AVERY WORTHINGTON ([id number])[facility])[address] [place] [address] CT CHEST ANGIOGRAM W AND/OR WO IV CONTRASTon 12-14-2024 CT CHEST ANGIOGRAM W AND/OR WO IV CONTRAST [facility] 1965 [id number] Exam Date/Time: 12/14/2024 21:35 Procedure: CT CHEST ANGIOGRAM W AND/OR WO IV CONTRAST Ordering Provider: MCMILLAN WILLIAM Reason For Exam: Pulmonary embolism (PE) suspected, unknown D-dimer; +DVT with +Troponin EXAM: CT Angiography Chest With Intravenous Contrast CLINICAL INDICATION: Dyspnea, DVT TECHNIQUE: Axial computed tomographic angiography images of the chest with intravenous contrast. This CT exam was performed using one or more of the following dose reduction techniques: automated exposure control, adjustment of the mA and/or kV according to patient size, and/or use of iterative reconstruction technique. MIP reconstructed images were created and reviewed. COMPARISON: No relevant prior studies available. FINDINGS: PULMONARY ARTERIES: Unremarkable. No pulmonary embolism. AORTA: Mild atherosclerotic disease. No thoracic aortic aneurysm. LUNGS AND PLEURAL SPACES: Subsegmental bibasilar atelectasis. No mass. No significant effusion. No pneumothorax. HEART: Unremarkable. No coronary artery calcification. BONES/JOINTS: Degenerative changes in the left shoulder. Degenerative changes are present in the visualized spine. No acute fracture. No dislocation. SOFT TISSUES: Unremarkable. LYMPH NODES: Unremarkable. No enlarged lymph nodes. IMPRESSION: 1. No pulmonary embolism. 2. Bibasilar atelectasis. No consolidation or pleural effusion. Report Dictated on Electronically Signed By: Won Myrick MD Electronically Signed Date/Time: 12/14/2024 10:14 PM EDT [facility] CTA Chest vessels WO and W c ontrast Wilberto 12-14-2024 1. No pulmonary embolism. 2. Bibasilar atelectasis. No consolidation or pleural effusion. Report Dictated on Electronically Signed By: Won Myrick MD Electronically Signed Date/Time: 12/14/2024 10:14 PM EDT [facility] Patient Name: [facility]AROLINA [facility]N [facility] 1965 [id number] Exam Date/Time: 12/14/2024 21:35 Procedure: CT CHEST ANGIOGRAM W AND/OR WO IV CONTRAST Ordering Provider: MCMILLAN WILLIAM Reason For Exam: Pulmonary embolism (PE) suspected, unknown D-dimer; +DVT with +Troponin EXAM: CT Angiography Chest With Intravenous Contrast CLINICAL INDICATION: Dyspnea, DVT TECHNIQUE: Axial computed tomographic angiography images of the chest with intravenous contrast. This CT exam was performed using one or more of the following dose reduction techniques: automated exposure control, adjustment of the mA and/or kV according to patient size, and/or use of iterative reconstruction technique. MIP reconstructed images were created and reviewed. COMPARISON: No relevant prior studies available. FINDINGS: PULMONARY ARTERIES: Unremarkable. No pulmonary embolism. AORTA: Mild atherosclerotic disease. No thoracic aortic aneurysm. LUNGS AND PLEURAL SPACES: Subsegmental bibasilar atelectasis. No mass. No significant effusion. No pneumothorax. HEART: Unremarkable. No coronary artery calcification. BONES/JOINTS: Degenerative changes in the left shoulder. Degenerative changes are present in the visualized spine. No acute fracture. No dislocation. SOFT TISSUES: Unremarkable. LYMPH NODES: Unremarkable. No enlarged lymph nodes. [facility] RADIOLOGY SYSTEM Won Myrick MD - 12/14/2024 Patient Name: [facility]AROLINA [facility]N : 1965 [id number] Exam Date/Time: 12/14/2024 21:35 Procedure: CT CHEST ANGIOGRAM W AND/OR WO IV CONTRAST Ordering Provider: MCMILLAN WILLIAM Reason For Exam: Pulmonary embolism (PE) suspected, unknown D-dimer; +DVT with +Troponin EXAM: CT Angiography Chest With Intravenous Contrast CLINICAL INDICATION: Dyspnea, DVT TECHNIQUE: Axial computed tomographic angiography images of the chest with intravenous contrast. This CT exam was performed using one or more of the following dose reduction techniques: automated exposure control, adjustment of the mA and/or kV according to patient size, and/or use of iterative reconstruction technique. MIP reconstructed images were created and reviewed. COMPARISON: No relevant prior studies available. FINDINGS: PULMONARY ARTERIES: Unremarkable. No pulmonary embolism. AORTA: Mild atherosclerotic disease. No thoracic aortic aneurysm. LUNGS AND PLEURAL SPACES: Subsegmental bibasilar atelectasis. No mass. No significant effusion. No pneumothorax. HEART: Unremarkable. No coronary artery calcification. BONES/JOINTS: Degenerative changes in the left shoulder. Degenerative changes are present in the visualized spine. No acute fracture. No dislocation. SOFT TISSUES: Unremarkable. LYMPH NODES: Unremarkable. No enlarged lymph nodes. IMPRESSION: 1. No pulmonary embolism. 2. Bibasilar atelectasis. No consolidation or pleural effusion. Report Dictated on Electronically Signed By: Won Myrick MD Electronically Signed Date/Time: 12/14/2024 10:14 PM EDT [facility] Radiology Study observation (narrative) [facility] He alth CTA Chest vessels WO and W forrest alfordrast IVOrdered By: Won Myrick on 12-14-2024 [facility] [employer] Work Phone: Comprehensive metabolic 1998 panelon 12-14-2024 Albumin [Mass/Vol] 3.3 g/dL Low 3.5 - 5.0 g/dL [facility] ALP [Catalytic activity/Vol] 117 U/L 40 - 150 U/L [facility] ALT [Catalytic activity/Vol] 28 U/L NINF - 30 U/L [facility] Anion gap [Moles/Vol] 6 mmol/L 3 - 13 mmol/L [facility] AST [Catalytic activity/Vol] 31 U/L [facility]L [facility] Bilirubin [Mass/Vol] 0.6 mg/dL NINF - 1.2 mg/dL [facility] Calcium [Mass/Vol] 8.8 mg/dL 8.4 - 10. 2 mg/dL [facility] Chloride [Moles/Vol] 108 mmol/L High 98 - 10 7 mmol/L [facility] CO2 [Moles/Vol] 25 mmol/L 22 - 29 mmol/L [facility] Creatinine [Mass/Vol] 0.78 mg/dL 0.57 - 1.11 mg/dL [facility] GFR/1.73 sq M.predicted (S/P/Bld) [Vol rate/Area] 87.6 mL/min - PINF [facility] Comment on above: Calculation based on the Chronic Kidney Disease Epidemiology Collaboration (CKD-EPI) equation refit without adjustment for race Glucose [Mass/Vol] 89 mg/dL 74 - 100 mg/dL [facility] Interpretation and review of laboratory results Abnormal [facility] Potassium [Moles/Vol] 3.5 mmol/L 3.5 - 5.1 mmol/L [facility] Comment on above: Plasma potassium harini ues may be up to 0.5 mmol/L lower than serum values. Protein [Mass/Vol] 6.8 g/dL 6.4 - 8.3 g/dL [facility] Sodium [Moles/Vol] 139 mmol/L 136 - 145 mmol/L [facility] Urea nitrogen [Mass/Vol] 16 mg/dL 9 - 23 mg/dL [facility] ED Provider Noteon ED Provider Note EMERGENCY DEPARTMENT ENCOUNTER Pt Name: Karolina [...] done on Saturday with positive DVT at [facility] (picture of report was scanned into [...] 1733] Temp Heart Rate Resp BP 36.7 ?C (98.1 ?F) 83 16 111/71 SpO2 Temp Source Heart [...] DIFFERENTIAL - Abnormal Result Value Auto WBC 5 (more content not included)... Normal [facility] ED Provider Note Emergency Department Encounter [facility] EMERGENCY [facility]PT Patient: Karolina Ahn : 1965 [...] just over a week now. Initial evaluated [facility] where she was diagnosed with a DVT that extends along her entire leg. She was started on Eliquis which she has been taking regularly but notes worsening pain and swelling. Was trying to get a second opinion and went to [facility] But states she never saw a provider and left out of frustration after waiting several hours. Tried to call vascular surgery and was told to go to ER at either [facility] or [place]. She currently denies any chest pain or [...] from the venous duplex study obtained at [facility], she does have significant clot burden. [...] contact the dictating provider for clarification.) Anthony Aponte, DO [employer] Anthony Aponte, DO 12/14/24 2357 Normal [facility] HIGH SENSITIVITY TROPONIN, S ERIAL BASELINEon 12-14-2024 TROPONIN HS SERIAL BASELINE 57 ng/L High <=14 [facility] Comment on above: Result Comment: In i ndividuals presenting with symptoms > 2h, a baseline troponin <= 5 ng/L suggests acute cardiac injury is unlikely and further serial testing is generally not indicated. Performed By: #### L [id number], [id number] ####Neckties Painter: AVERY WORTHINGTON ([phone])[facility] ([facility])[address] [place] [address] HIGH SENSITIVITY TROPONIN, S ERIAL, SECOND TESTon 12-14-2024 2H TROPONIN HS (SERIAL 2ND TROPONIN) 58 ng/L High <=14 [facility] Comment on above: Result Comment: Risi ng or falling troponin delta below 2 ng/L as compared to baseline value suggests that acute cardiac injury is unlikely. Performed By: #### L [id number] ####Neckties Painter: AVERY WORTHINGTON ([phone])[facility] ([facility])[address] [place] [address] Laboratory - Coagulationon 0 12-14-2024 PT Coag (Bld) [Time] 10.5 s 9.0 - 12.0 s [facility] MRI FEMALE PELVIS WO/W IVCON on 12-14-2024 MRI FEMALE PELVIS WO/W IVCON * * *Final Report* * * DATE OF EXAM: Dec 14 2024 1:50PM [facility] 0713 - MRI FEMALE PELVIS WO/W IVCON / PROCEDURE REASON: Infection in abdomen (HCC) * * * * Physician Interpretation * * * * MRI OF THE FEMALE PELVIS WITHOUT AND WITH CONTRAST CLINICAL HISTORY: Mesh erosion pelvis. Pelvic pain TECHNIQUE: Magnet: 1.5T scanner. Coil: Torso phased array Sequences / planes: Multisequence, multiplanar MR imaging of the pelvis was performed with and without intravenous contrast. Contrast: IV administration of 7 ml of Elucirem administration of ml of COMPARISON: CT 10/13/2024 RESULT: Uterus: Status post hysterectomy. Ovaries: The ovaries are not seen and are either atrophic or surgically absent. Endometriosis: None Bladder: Normal. Peritoneum: No free fluid. Lymph nodes: No lymph nodes enlarged by size criteria Gastrointestinal: Normal. Vessels: Bilateral common iliac vein stents in place, the patency of which cannot be determined due to artifact from the stents. The left external iliac vein distal to the stent is occlusively thrombosed. Bones: No suspicious lesions. The known pelvic mesh is not well appreciated on this study. No pelvic fluid collections or abscesses. IMPRESSION: 1. The known pelvic mesh is not well appreciated on this study. No pelvic fluid collections or abscesses. 2. Occlusive thrombus within the left external iliac vein distal to the common iliac vein stent. The patient has known DVT and receiving anticoagulation according to EMR. Environmental Compliance Officer: PSCB Transcribe Date/Time: Dec 21 2024 10:20A Dictated by : SISSY ALVA MD This examination was interpreted and the report reviewed and electronically signed by: SISSY ALVA MD on Dec 21 2024 10:32AM EST [id number] N Normal [facility] No Panel Informationon 12-14 2h Troponin HS (Serial 2nd Troponin) 58 ng/L High NINF - 14 ng/L [facility] Comment on above: Rising or falling tr oponin delta below 2 ng/L as compared to baseline value suggests that acute cardiac injury is unlikely. Interpretation and review of laboratory results Abnormal [facility] Interpretation and review of laboratory results Abnormal [facility] Troponin HS Serial Baseline 57 ng/L High NINF - 14 ng/L [facility] Comment on above: In individuals prese nting with symptoms > 2h, a baseline troponin <= 5 ng/L suggests acute cardiac injury is unlikely and further serial testing is generally not indicated. [facility] PROTHROMBIN TIMEon INR Coag (PPP) [Relative time] 1.0 {INR} Normal 0.9-1.1 [facility] Comment on above: Result Comment: Carlos [...] Myocardial Infarction Performed By: #### L [id number] ####Neckties Painter: AVERY WORTHINGTON ([phone])[facility] ([facility])[address] [place] [address] PT Coag (PPP) [Time] 10.5 s Normal 9.0-12.0 [facility] Comment on above: Performed By: #### L AB320 ####Neckties Painter: AVERY WORTHINGTON ([phone])[facility] ([facility])[address] [place] [address] PT Coag (Bld) [Time]on 12-14 INR Coag (PPP) [Relative time] 1 {INR} 0.9 - 1.1 [facility] Comment on above: Recommended Anticoag ulant [...] Interpretation and review of laboratory results Normal [facility] ALLIED HEALTHon 12-12-2024 ALLIED HEALTH HNO ID: [id number] Author: MARILU OWEN RT(R) Service: Radiology Author [...] PATIENT PRESENTS WITH AN IMPLANTABLE OR ATTACHED PARK MAINTAINER: No ALLERGIES: Reviewed and unchanged CONTRAST ALLERGY: [...] PERIPHERAL IV DATA: Inpatient - refer to [facility] documentation RADIOLOGY DEPARTMENT: CT; Exam(s) Completed: DEBBIE Study SIGNATURE: RT Zara(R) PATIENT NAME: Karolnia Ahn DATE: December 12, 2024 TIME: 6:23 PM Normal [facility] CBC W Auto Differential pane l (Bld)on 12-12-2024 Basophils (Bld) [#/Vol] 0.04 10*3/uL Normal <0.11 [facility] Comment on above: Order Comment: Speci men Type: BLOOD SPECIMENOrdering Facility: [facility] Address: [address] [place] [address] Performed By: #### 5 7021-8 ####[facility]ORATORYCLIA [id number] [address] [place] Basophils/100 WBC (Bld) 0.4 % Normal A [facility] Comment on above: Order Comment: Speci men Type: BLOOD SPECIMENOrdering Facility: [facility] Address: [address] [place] [address] Performed By: #### 5 7021-8 ####[facility] LABORATORYCLIA [id number] [address] Differential cell count method Nom (Bld) Auto Normal [facility] Comment on above: Order Comment: Speci men Type: BLOOD SPECIMENOrdering Facility: [facility] Address: [address] [place] [address] Performed By: #### 5 7021-8 ####[facility] LABORATORYCLIA [id number] [address] [place] Eosinophils (Bld) [#/Vol] 0.28 10*3/uL Normal <0.46 [facility] Comment on above: Order Comment: Speci men Type: BLOOD SPECIMENOrdering Facility: [facility] Address: [address] [place] [address] Performed By: #### 5 7021-8 ####[facility] LABORATORYCLIA [id number] [address] Eosinophils/100 WBC (Bld) 2.9 % Normal [facility] Comment on above: Order Comment: Speci men Type: BLOOD SPECIMENOrdering Facility: [facility] Address: [address] [place] [address] Performed By: #### 5 7021-8 ####[facility] LABORATORYCLIA [id number] [address] Erythrocyte distribution width (RBC) [Ratio] 12.9 % Normal 11.5-15.0 [facility] Comment on above: Order Comment: Speci men Type: BLOOD SPECIMENOrdering Facility: [facility] Address: [address] [place] [address] Performed By: #### 5 7021-8 ####[facility] LABORATORYCLIA [id number] [address] [place] Hematocrit (Bld) [Volume fraction] 42.7 % Normal 36.0-46.0 [facility] Comment on above: Order Comment: Speci men Type: BLOOD SPECIMENOrdering Facility: [facility] Address: [address] [place] [address] Performed By: #### 5 7021-8 ####[facility] LABORATORYCLIA [id number] [address] [place] Hemoglobin (Bld) [Mass/Vol] 13.7 g/dL Normal 11.5-15.5 [facility] Comment on above: Order Comment: Speci men Type: BLOOD SPECIMENOrdering Facility: [facility] Address: [address] [place] [address] Performed By: #### 5 7021-8 ####[facility] LABORATORYCLIA [id number] [address] Immature granulocytes (Bld) [#/Vol] 0.06 10*3/uL Normal <0.10 [facility] Comment on above: Order Comment: Speci men Type: BLOOD SPECIMENOrdering Facility: [facility] Address: [address] [place] [address] Performed By: #### 5 7021-8 ####[facility] LABORATORYCLIA [id number] [address] [place] Immature granulocytes/100 WBC (Bld) 0.6 % Normal [facility] Comment on above: Order Comment: Speci men Type: BLOOD SPECIMENOrdering Facility: [facility] Address: [address] [place] [address] Performed By: #### 5 7021-8 ####[facility] LABORATORYCLIA [id number] [address] [place] Lymphocytes (Bld) [#/Vol] 1.16 10*3/uL Normal 1.00-4.00 [facility] Comment on above: Order Comment: Speci men Type: BLOOD SPECIMENOrdering Facility: [facility] Address: [address] [place] [address] Performed By: #### 5 7021-8 ####[facility] LABORATORYCLIA [id number] [address] Lymphocytes/100 WBC (Bld) 11.9 % Normal [facility] Comment on above: Order Comment: Speci men Type: BLOOD SPECIMENOrdering Facility: [facility] Address: [address] [place] [address] Performed By: #### 5 7021-8 ####[facility] LABORATORYCLIA [id number] [address] MCH (RBC) [Entitic mass] 29.5 pg Normal 26.0-34.0 [facility] Comment on above: Order Comment: Speci men Type: BLOOD SPECIMENOrdering Facility: [facility] Address: [address] [place] [address] Performed By: #### 5 7021-8 ####[facility] LABORATORYCLIA [id number] [address] MCHC (RBC) [Mass/Vol] 32.1 g/dL Normal 30.5-36.0 [facility] Comment on above: Order Comment: Speci men Type: BLOOD SPECIMENOrdering Facility: [facility] Address: [address] [place] [address] Performed By: #### 5 7021-8 ####[facility] LABORATORYCLIA [id number] [address] MCV (RBC) [Entitic vol] 92.0 fL Normal 80.0-100.0 [facility] Comment on above: Order Comment: Speci men Type: BLOOD SPECIMENOrdering Facility: [facility] Address: [address] [place] [address] Performed By: #### 5 7021-8 ####[facility] LABORATORYCLIA [id number] [address] Monocytes (Bld) [#/Vol] 0.65 10*3/uL Normal <0.87 [facility] Comment on above: Order Comment: Speci men Type: BLOOD SPECIMENOrdering Facility: [facility] Address: [facility] [place] [address] Performed By: #### 5 7021-8 ####[facility]ORATORYCLIA [id number] [address] [place] Monocytes/100 WBC (Bld) 6.6 % Normal A [facility] Comment on above: Order Comment: Speci men Type: BLOOD SPECIMENOrdering Facility: [facility] Address: [address] [place] [address] Performed By: #### 5 7021-8 ####[facility] LABORATORYCLIA [id number] [address] [place] Neutrophils (Bld) [#/Vol] 7.59 10*3/uL High 1.45-7.50 [facility] Comment on above: Order Comment: Speci men Type: BLOOD SPECIMENOrdering Facility: [facility] Address: [address] [place] [address] Performed By: #### 5 7021-8 ####[facility] LABORATORYCLIA [id number] [address] STATES OF [facility] Neutrophils/100 WBC (Bld) 77.6 % Normal [facility] Comment on above: Order Comment: Speci men Type: BLOOD SPECIMENOrdering Facility: [facility] Address: [address] [place] [address] Performed By: #### 5 7021-8 ####[facility]ORATORYCLIA [id number] [place] [address] [place] Nucleated RBC (Bld) [#/Vol] 10*3/uL Normal <0.01 [facility] Comment on above: Order Comment: Speci men Type: BLOOD SPECIMENOrdering Facility: [facility] Address: [address] [place] [address] Performed By: #### 5 7021-8 ####[facility]ORATORYCLIA [id number] [place] [address] [place] Nucleated RBC/100 WBC (Bld) [Ratio] 0.0 /100 WBC Normal [facility] Comment on above: Order Comment: Speci men Type: BLOOD SPECIMENOrdering Facility: [facility] Address: [address] [place] [address] Performed By: #### 5 7021-8 ####[facility] LABORATORYCLIA [id number] [place] [address] [place] Platelet mean volume (Bld) [Entitic vol] 10.0 fL Normal 9.0-12.7 [facility] Comment on above: Order Comment: Speci men Type: BLOOD SPECIMENOrdering Facility: [facility] Address: [address] [place] [address] Performed By: #### 5 7021-8 ####[facility] LABORATORYCLIA [id number] [place] [address] [place] Platelets (Bld) [#/Vol] 243 10*3/uL Normal 150-400 [facility] Comment on above: Order Comment: Speci men Type: BLOOD SPECIMENOrdering Facility: [facility] Address: [address] [place] [address] Performed By: #### 5 7021-8 ####[facility] LABORATORYCLIA [id number] [place] [address] [place] RBC (Bld) [#/Vol] 4.64 10*6/uL Normal 3.90-5.20 [facility] Comment on above: Order Comment: Speci men Type: BLOOD SPECIMENOrdering Facility: [facility] Address: [address] [place] [address] Performed By: #### 5 7021-8 ####[facility] LABORATORYCLIA [id number] [place] [address] [place] WBC (Bld) [#/Vol] 9.78 10*3/uL Normal 3.70-11.00 [facility] Comment on above: Order Comment: Speci men Type: BLOOD SPECIMENOrdering Facility: [facility] Address: [address] [place] [address] Performed By: #### 5 7021-8 ####[facility] LABORATORYCLIA [id number] [place] [address] [place] CTA CHEST (NON GATED) W IVCO N PEon 12-12-2024 CTA CHEST (NON GATED) W IVCON PE * * *Final Report* * * DATE OF EXAM: Dec 12 2024 6:25PM [facility] 0564 - CTA CHEST (NON GATED) W [...] with no CT evidence of pulmonary embolism. Environmental Compliance Officer: GREGORY Transcribe Date/Time: Dec 12 2024 8:56P Dictated by : JOANN AUGUSTIN MD This examination was interpreted and the report reviewed and electronically signed by: JOANN AUGUSTIN MD on Dec 12 2024 8:59PM EST [id number] N Normal [facility] Comprehensive metabolic 2000 panelon 12-12-2024 Albumin [Mass/Vol] 4.1 g/dL Normal 3.9-4.9 [facility] Comment on above: Order Comment: Vikas mendoza Type: BLOOD SPECIMENOrdering Facility: [facility] Address: [address] [place] [address] Performed By: #### 3 3762-6, 93949-6 ####[facility] LABORATORYCLIA [id number] [place] [address] [place] ALP [Catalytic activity/Vol] 139 U/L High 34-123 [facility] Comment on above: Order Comment: Vikas mendoza Type: BLOOD SPECIMENOrdering Facility: [facility] Address: [address] [place] [address] Performed By: #### 3 3762-6, 64747-2 ####[facility] LABORATORYCLIA [id number] [place] [address] [place] ALT With P-5'-P [Catalytic activity/Vol] 21 U/L Normal 7-38 [facility] Comment on above: Order Comment: Maureeni reji Type: BLOOD SPECIMENOrdering Facility: [facility] Address: [address] [place] [address] Performed By: #### 3 3762-6, 55611-5 ####[facility]ORATORYCLIA [id number] [place] [address] [place] Anion gap [Moles/Vol] 10 mmol/L Normal 8-15 [facility] Comment on above: Order Comment: Speci men Type: BLOOD SPECIMENOrdering Facility: [facility] Address: [address] [place] [address] Performed By: #### 3 3762-6, ####[facility]ORATORYCLIA [id number] [place] [address] [place] AST With P-5'-P [Catalytic activity/Vol] 21 U/L Normal 13-35 [facility] Comment on above: Order Comment: Speci men Type: BLOOD SPECIMENOrdering Facility: [facility] Address: [address] [place] [address] Performed By: #### 3 3762-6, ####[facility]ORATORYCLIA [id number] [place] [address] [place] Bilirubin [Mass/Vol] 0.6 mg/dL Normal 0.2-1.3 [facility] Comment on above: Order Comment: Speci men Type: BLOOD SPECIMENOrdering Facility: [facility] Address: [address] [place] [address] Performed By: #### 3 3762-6, ####[facility] LABORATORYCLIA [id number] [place] [address] [place] Calcium [Mass/Vol] 9.7 mg/dL Normal 8.5-10.2 [facility] Comment on above: Order Comment: Speci men Type: BLOOD SPECIMENOrdering Facility: [facility] Address: [address] [place] [address] Performed By: #### 3 3762-6, ####[facility]ATORYCLIA [id number] [place] [address] [place] Chloride [Moles/Vol] 103 mmol/L Normal 98-107 [facility] Comment on above: Order Comment: Speci men Type: BLOOD SPECIMENOrdering Facility: [facility] Address: [address] [place] [address] Performed By: #### 3 3762-6, 08718-6 ####[facility]ORATORYCLIA [id number] [place] [address] [place] CO2 [Moles/Vol] 24 mmol/L Normal 22-30 [facility] Comment on above: Order Comment: Speci men Type: BLOOD SPECIMENOrdering Facility: [facility] Address: [address] [place] [address] Performed By: #### 3 3762-6, 88599-6 ####[facility] LABORATORYCLIA [id number] [place] [address] [place] Creatinine [Mass/Vol] 0.91 mg/dL Normal 0.58-0.96 [facility] Comment on above: Order Comment: Speci men Type: BLOOD SPECIMENOrdering Facility: [facility] Address: [address] [place] [address] Performed By: #### 3 3762-6, 18514-8 ####[facility]ASTCLIA [id number] [address] eGFRcr SerPlBld CKD-EPI 2020 73 mL/min/1.73m??? Normal >=60 [facility] Comment on above: Order Comment: Speci men Type: BLOOD SPECIMENOrdering Facility: [facility] Address: [address] [place] [address] Result Comment: Cassandra mated Glomerular Filtration Rate [...] actual GFR. Performed By: #### 3 3762-6, 62643-4 ####[facility] LABORATORYCLIA [id number] [address] [place] Glucose [Mass/Vol] 85 mg/dL Normal 74-99 [facility] Comment on above: Order Comment: Speci men Type: BLOOD SPECIMENOrdering Facility: [facility] Address: [address], [place] [address] Result Comment: The [place] [employer] (ADA) provides guidance for cutoff [...] Standards of Medical Care in Diabetes 2016, [place] [employer]. Diabetes Care. 2016.39(Suppl 1). Performed By: #### 3 3762-6, 67703-3 ####[facility] LABORATORYCLIA [id number] [place] [address] [place] Potassium [Moles/Vol] 3.9 mmol/L Normal 3.7-5.1 [facility] Comment on above: Order Comment: Speci men Type: BLOOD SPECIMENOrdering Facility: [facility] Address: [address] [place] [address] Performed By: #### 3 3762-6, 69541-3 ####[facility]ORATORYCLIA [id number] [place] [address] [place] Protein [Mass/Vol] 7.2 g/dL Normal 6.3-8.0 [facility] Comment on above: Order Comment: Maureeni men Type: BLOOD SPECIMENOrdering Facility: [facility] Address: [address] [place] [address] Performed By: #### 3 3762-6, 77060-7 ####[facility] LABORATORYCLIA [id number] [place] [address] [place] Sodium [Moles/Vol] 137 mmol/L Normal 136-144 [facility] Comment on above: Order Comment: Maureeni men Type: BLOOD SPECIMENOrdering Facility: [facility] Address: [address] [place] [address] Performed By: #### 3 3762-6, 91062-6 ####[facility] LABORATORYCLIA [id number] [place] [address] [place] OF [facility] Urea nitrogen [Mass/Vol] 14 mg/dL Normal 7- [facility] Comment on above: Order Comment: Speci men Type: BLOOD SPECIMENOrdering Facility: [facility] Address: [address] [place] [address] Performed By: #### 3 3762-6, 11638-8 ####[facility] LABORATORYCLIA [id number] [place] [id number] [facility] ECG COMPLETEon 12-12-2024 ECG COMPLETE Ventricular Rate : 107 BPM Atrial Rate : 107 BPM P-R Interval : 134 ms QRS Duration : 76 ms Q-T Interval : 316 ms QTC Calculation(Bazett) : 421 ms Calculated P Heaters : 49 degrees Calculated R Heaters : 7 degrees Calculated T Heaters : 67 degrees SINUS TACHYCARDIA POSSIBLE LEFT ATRIAL ENLARGEMENT BORDERLINE ECG NO PREVIOUS ECGS AVAILABLE Confirmed by LETICIA SEO MD ([id number]) on 12/12/2024 5:02:19 PM NAME : KAROLINA AHN PID : [id number] : 1965 Gender : Female Race : ORD : [id number] Procedure Date : Dec 12 2024 15:27:30 Edit Date : Dec 12 2024 17:02:23 Diagnosis: SINUS TACHYCARDIA POSSIBLE LEFT ATRIAL ENLARGEMENT BORDERLINE ECG NO PREVIOUS ECGS AVAILABLE Confirmed by LETICIA SEO MD ([id number]) on 12/12/2024 5:02:19 PM Test Reason : Chest Pain Location : 4 : AKED Overread By : LETICIA SEO MD Edited By : LETICIA SEO MD Referred By : , Acquired by : EDYTA KING [facility] ED NOTEon 12-12-2024 ED NOTE HNO ID: [id number] Author: EDYTA KING Medic Service: Emergency Medicine Author Type: Film Composer and Teacher Of The Sight Impaired Type: ED Notes Filed: 12/12/2024 20:00 Note Text: Pt reporting 10/10 left foot pain, reports feeling like her foot is freezing and she is unable to warm it up. Strong, distal pedal pulse palpated by Estephanie RN, good cap refill. Vitals updated at this time. Normal [facility] ED Triage Noteon 12-12-2024 ED Triage Note HNO ID: [id number] Author: RIN MENDOZA APRN.LISANDRO Service: Emergency Medicine Author Type: Nurse Practitioner Type: ED Triage Notes Filed: 12/12/2024 15:20 Note Text: ED TRIAGE PROVIDER NOTE Patient Name: Karolina Ahn Service Date: 12/12/24 BRIEF HPI: This is a 59 year old female who presents to the ED with: Complaints of pain in her left leg. She was seen at [place] ED yesterday and diagnosed with extensive DVT [...] (radiology procedure) ECG COMPLETE SIGNATURE: Rin Mendoza APRN.EDUCATION ASSISTANT Normal [facility] HIGH SENSITIVITY TROPONIN T (INITIAL)on 12-12-2024 Troponin T.cardiac High sensitivity method [Mass/Vol] 33 ng/L High <12 [facility] Comment on above: Order Comment: Speci men Type: BLOOD SPECIMENOrdering Facility: [facility] Address: [address] [place] [address] Performed By: #### L [id number] ####[facility] LABORATORYCLIA [id number] [address] [place] HIGH SENSITIVITY TROPONIN T (SECOND)on 12-12-2024 Troponin T.cardiac High sensitivity method [Mass/Vol] 35 ng/L High <12 [facility] Comment on above: Order Comment: Speci men Type: BLOOD SPECIMENOrdering Facility: [facility] Address: [address] [place] [address] Performed By: #### L [id number] ####[facility] LABORATORYCLIA [id number] [place] [address] [place] HIGH SENSITIVITY TROPONIN T (THIRD) 3 HRS AFTER INITIALon 12-12-2024 Troponin T.cardiac High sensitivity method [Mass/Vol] 38 ng/L High <12 [facility] Comment on above: Order Comment: Speci men Type: BLOOD SPECIMENOrdering Facility: [facility] Address: [address] [place] [address] Performed By: #### L [id number] ####[facility] LABORATORYCLIA [id number] [place] [address] [facility] NT-proBNP [facility] Healthcare Corporationon 12-12 Natriuretic peptide.B prohormone N-Terminal [Mass/Vol] <36 Normal <125 [facility] Comment on above: Order Comment: Speci men Type: BLOOD SPECIMENOrdering Facility: [facility] Address: [address] [place] [address] Performed By: #### 3 3762-6, 16257-6 ####[facility] LABORATORYCLIA [id number] [address] OF [facility] Absolute lymphocyte countOrd ered By: Robert Ledesma on 12-11-2024 Lymphocytes Auto (Unsp spec) [#/Vol] 1.65 10*3/uL 0.83-4.51 [facility] Absolute neutrophil countOrd ered By: Robert Ledesma on 12-11-2024 Neutrophils (Bld) [#/Vol] 2.8 10*3/uL 2.0-7.7 [facility] Activated partial thrombopla stin time (aPTT) in platelet poor plasma by coagulation aOrdered By: Robert Ledesma on 12-11-2024 aPTT Coag (PPP) [Time] 25.8 s 24.1-36.2 [facility] Anion gap in Serum or Plasma Ordered By: Robert Ledesma on 12-11-2024 Anion gap [Moles/Vol] 12 mmol/L - [facility] Automated lymphocyte count a s percentage of total leukocytesOrdered By: Robert Ledesma on 12-11-2024 Lymphocytes/100 WBC Auto (Unsp spec) 30.7 % 19-41 [facility] BUN/creatinine ratioOrdered By: Robert Ledesma on 12-11-2024 Urea nitrogen/Creatinine [Mass ratio] 21.0 mg/mg High 10- [facility] Basic Metabolic Profile (BMP )on 12-11-2024 BUN/CRE 21.0 RATIO High -20 [facility] Comment on above: Performed By: #### L 100.9950, L100.0100, L503.6030, L503.6550 #### [facility] Laboratory [address] [place], [address] Calcium [Mass/Vol] 9.7 mg/dL Normal 7.6-11.0 [facility] Comment on above: Performed By: #### L 100.9950, L100.0100, L503.6030, L503.6550 #### [facility] Laboratory [address] [place], [address] Chloride [Moles/Vol] 104 mmol/L Normal 98-[address] [facility] Comment on above: Performed By: #### L 100.9950, L100.0100, L503.6030, L503.6550 #### [facility] Laboratory [address] [place], [address] CO2 [Moles/Vol] 23.0 mmol/L Normal 21.0-32.0 [facility] Comment on above: Performed By: #### L 100.9950, L100.0100, L503.6030, L503.6550 #### [facility] Laboratory [address] [place], [address] Creatinine [Mass/Vol] 0.91 mg/dL Normal 0.70-1.20 [facility] Comment on above: Performed By: #### L 100.9950, L100.0100, L503.6030, L503.6550 #### [facility] Laboratory [address] [place], [address] ECRCL 59.90 ml/min Normal 50-250 [facility] Comment on above: Performed By: #### L 100.9950, L100.0100, L503.6030, L503.6550 #### [facility] Laboratory [address] [place], [address] GAP 12 Normal 5-15 [facility] Comment on above: Performed By: #### L 100.9950, L100.0100, L503.6030, L503.6550 #### [facility] Laboratory [address] [place], [address] GFR/1.73 sq M.predicted among non-blacks MDRD (S/P/Bld) [Vol rate/Area] 73 mL/min/{1.73_m2} Normal >60 [facility] Comment on above: Result Comment: mL/m in/1.73m2 CKD-EPI Creatinine Equation (2020) Performed By: #### L 100.9950, L100.0100, L503.6030, L503.6550 #### [facility] Laboratory [address] [place], [address] Glucose [Mass/Vol] 94 mg/dL Normal 70-99 [facility] Comment on above: Performed By: #### L 100.9950, L100.0100, L503.6030, L503.6550 #### [facility] [address] [place], [address] Potassium [Moles/Vol] 4.1 mmol/L Normal 3.3-5.1 [facility] Comment on above: Performed By: #### L 100.9950, L100.0100, L503.6030, L503.6550 #### [facility] [address] [place], [address] Sodium [Moles/Vol] 139 mmol/L Normal 133-145 [facility] Comment on above: Performed By: #### L 100.9950, L100.0100, L503.6030, L503.6550 #### [facility] Laboratory [address] [place], [address] Urea nitrogen [Mass/Vol] 19 mg/dL Normal 4-19 [facility] Comment on above: Performed By: #### L 100.9950, L100.0100, L503.6030, L503.6550 #### [facility] [address] [place], [address] Basophil percentageOrdered B y: Robert Almylene on 12-11-2024 Basophils/100 WBC (Bld) 0.7 % 0-1 [facility] CBC W/Diff, Automatedon 11-27-2024 Absolute Lymph 1.65 X10 3/uL Normal 0.83-4.51 [facility] Comment on above: Performed By: #### L 100.9950, L100.0100, L503.6030, L503.6550 #### [facility] Laboratory [address] [place], [address] Absolute Neut 2.8 X10 3/uL Normal 2.0-7.7 [facility] Comment on above: Performed By: #### L 100.9950, L100.0100, L503.6030, L503.6550 #### [facility] Laboratory [address] [place], [address] Basophils/100 WBC (Bld) 0.7 % Normal 0-1 [facility] Comment on above: Performed By: #### L 100.9950, L100.0100, L503.6030, L503.6550 #### [facility] Laboratory [address] [place], [address] Eosinophils/100 WBC (Bld) 7.8 % High 0-5 [facility] Comment on above: Performed By: #### L 100.9950, L100.0100, L503.6030, L503.6550 #### [facility] Laboratory [address] [place], [address] Erythrocyte distribution width (RBC) [Ratio] 12.8 % Normal 11.6-14.6 [facility] Comment on above: Performed By: #### L 100.9950, L100.0100, L503.6030, L503.6550 #### [facility] Laboratory [address] [place], [address] Hematocrit (Bld) [Volume fraction] 43.8 % Normal 37-47 [facility] Comment on above: Performed By: #### L 100.9950, L100.0100, L503.6030, L503.6550 #### [facility] Laboratory [address] [place], [address] Hemoglobin (Bld) [Mass/Vol] 14.5 g/dL Normal 12.0-15.0 [facility] Comment on above: Performed By: #### L 100.9950, L100.0100, L503.6030, L503.6550 #### [facility] Laboratory [address] [place], [address] IG% 0.600 Normal 0.0-0.9 [facility] Comment on above: Result Comment: IG% - Immature Granulocytes (promyelocytes, myelocytes and metamyelocytes) > 1% indicates that a LEFT SHIFT is Present. Performed By: #### L 100.9950, L100.0100, L503.6030, L503.6550 #### [facility] [address] [place], [address] Lymphocytes/100 WBC (Bld) 30.7 % Normal 19-41 [facility] Comment on above: Performed By: #### L 100.9950, L100.0100, L503.6030, L503.6550 #### [facility] Laboratory [address] [place], [address] MCH (RBC) [Entitic mass] 29.8 pg Normal 27.0-32.0 [facility] Comment on above: Performed By: #### L 100.9950, L100.0100, L503.6030, L503.6550 #### [facility] [address] [place], [address] MCHC (RBC) [Mass/Vol] 33.1 g/dL Normal 32-36 [facility] Comment on above: Performed By: #### L 100.9950, L100.0100, L503.6030, L503.6550 #### [facility] [address] [place], [address] MCV (RBC) [Entitic vol] 89.9 fL Normal 81-99 [facility] Comment on above: Performed By: #### L 100.9950, L100.0100, L503.6030, L503.6550 #### [facility] [address] [place], [address] Monocytes/100 WBC (Bld) 7.8 % Normal 0-10 [facility] Comment on above: Performed By: #### L 100.9950, L100.0100, L503.6030, L503.6550 #### [facility] [address] [place], [address] Neutrophils/100 WBC (Bld) 52.4 % Normal 47-70 [facility] Comment on above: Performed By: #### L 100.9950, L100.0100, L503.6030, L503.6550 #### [facility] Laboratory [address] [place], [address] Nucleated RBC (Bld) [#/Vol] 0 10*3/uL Normal 0-5 [facility] Comment on above: Performed By: #### L 100.9950, L100.0100, L503.6030, L503.6550 #### [facility] Laboratory [address] [place], [address] Platelet mean volume (Bld) [Entitic vol] 10.1 fL Normal 6.2-12.0 [facility] Comment on above: Performed By: #### L 100.9950, L100.0100, L503.6030, L503.6550 #### [facility] Laboratory [address] [place], [address] Platelets (Bld) [#/Vol] 255 10*3/uL Normal 150-450 [facility] Comment on above: Performed By: #### L 100.9950, L100.0100, L503.6030, L503.6550 #### [facility] Laboratory [address] [place], [address] RBC (Bld) [#/Vol] 4.87 10*6/uL Normal 4.2-5.4 [facility] Comment on above: Performed By: #### L 100.9950, L100.0100, L503.6030, L503.6550 #### [facility] Laboratory [address] [place], [address] RDW SD 42.1 fl Normal 35.1-43.9 [facility] Comment on above: Performed By: #### L 100.9950, L100.0100, L503.6030, L503.6550 #### [facility] Laboratory [address] [place], [address] WBC (Bld) [#/Vol] 5.4 10*3/uL Normal 4.4-11.0 [facility] Comment on above: Performed By: #### L 100.9950, L100.0100, L503.6030, L503.6550 #### [facility] Laboratory [address] [place], [address] CTA Abd w/Runoff W/WO Contra ston 12-11-2024 CTA Abd w/Runoff W/WO Contrast [facility] [address] [place] [address] CTA Abd w/Runoff W/WO Contrast MR#: [id number] Acct: [id number] Name: KAROLINA AHN Rep #: [id number] : 1965 F 59 From: Sony sawyer MD PCP: Dr. Jimbo Dash MD Status: REG Study: CTA Abd w/Runoff W/WO Contrast Date of Exam: 0 12/11/24 Exam# [id number] Ordering Dr: Robert Ledesma DO PROCEDURE: CTA [...] distal to the popliteal artery. Reading Location: [facility]-IR-1 CC: Dr. Jimbo Dash MD; Robert Ledesma DO Environmental Compliance Officer: Signed Normal [facility] Carbon dioxide, total [Moles /volume] in Central venous bloodOrdered By: Robert Ledesma on 12-11-2024 CO2 [Moles/Vol] 23.0 mmol/L 21.0-32.0 [facility] Chloride assayOrdered By: Loly Ledesma on 12-11-2024 Chloride [Moles/Vol] 104 mmol/L 98-[address] [facility] Emergency Department Summary on 12-11-2024 Emergency Department Summary [facility] Medical Records Department [address] [place] [address] Emergency Department Summary 12/11/24 MR#: [id number] Acct: [id number] Name: KAROLINA AHN Rep #: [id number] : 1965 59 From: Deep Lion MD PCP: Dr. Jimbo Dash MD Status:DEP ER Location: ED ADDENDUM by Dr. Deep Lion MD on 12/11/24 at 1625 Outpatient pharmacy did not have the long-acting oxycodone. The prescription was canceled and a prescription was called into [facility]. 12/11/24 1625 Cosigner Signature (if applicable): cc: [...] left iliac vein.) Recent Illness/Hospitalizati on: No PFSH PFSH Medical [...] .Route 12/11 Unknown Rx a dose pack (Eliquis DVT-PE [...] fever(s) C (more content not included)... Normal [facility] Eosinophil percentageOrdered By: Robert Ledesma on 12-11-2024 Eosinophils/100 WBC (Bld) 7.8 % High 0-5 [facility] Erythrocyte distribution wid th ratioOrdered By: Robert Ledesma on 12-11-2024 Erythrocyte distribution width (RBC) [Ratio] 12.8 % 11.6-14.6 [facility] Erythrocyte distribution wid th standard deviationOrdered By: Robert Ledesam on 12-11-2024 Erythrocyte distribution width (RBC) [Ratio] 42.1 fl 35.1-43.9 [facility] Glomerular filtration rate ( GFR) estimation/1.73 sq m using serum, plasma, or whole bOrdered By: Robert Ledesma on 12-11-2024 GFR/1.73 sq M.predicted among non-blacks MDRD (S/P/Bld) [Vol rate/Area] 73 mL/min/{1.73_m2} >60 [facility] Comment on above: mL/min/1.73m2 CKD-EP I Creatinine Equation (2020) Hematocrit Auto (Bld) [Volum e fraction]Ordered By: Robert Ledesma on 12-11-2024 Hematocrit (Bld) [Volume fraction] 43.8 % 37-47 [facility] Hemoglobin measurementOrdere d By: Robert Ledesma on 12-11-2024 Hemoglobin (Bld) [Mass/Vol] 14.5 g/dL 12.0-15.0 [facility] Immature granulocytes/100 WB C Auto (Bld)Ordered By: Robert Ledesma on 12-11-2024 Immature granulocytes/100 WBC (Bld) 0.600 % 0.0-0.9 [facility] Comment on above: IG% - Immature Granu locytes (promyelocytes, myelocytes and metamyelocytes) > 1% indicates that a LEFT SHIFT is Present. International normalized rat io (INR) calculationOrdered By: Robert Ledesma on 12-11-2024 INR Coag (Bld) [Relative time] 1.0 {INR} [facility] Lactic Acidon 12-11-2024 Lactate [Moles/Vol] mmol/L Normal 0.0-2.0 [facility] Comment on above: Order Comment: Y Performed By: #### L 100.9950, L100.0100, L503.6030, L503.6550 #### [facility] Laboratory [address] [place] [address]. [place], [address] Lactic acid measurementOrder ed By: Robert Ledesma on 12-11-2024 Lactate [Moles/Vol] mmol/L 0.0-2.0 [facility] MCV (mean corpuscular volume ) determinationOrdered By: Robert Ledesma on 12-11-2024 MCV (RBC) [Entitic vol] 89.9 fL 81-99 [facility] Mean corpuscular hemoglobin (MCH) determinationOrdered By: Robert Ledesma on 12-11-2024 MCH (RBC) [Entitic mass] 29.8 pg 27.0-32.0 [facility] Mean corpuscular hemoglobin concentration (MCHC) determinationOrdered By: oRbert Ledesma on 12-11-2024 MCHC (RBC) [Mass/Vol] 33.1 g/dL 32-36 [facility] Mean platelet volume determi nationOrdered By: Robert Ledesma on 12-11-2024 Platelet mean volume (Bld) [Entitic vol] 10.1 fL 6.2-12.0 [facility] Monocyte percentageOrdered B y: Robert Ledesma on 12-11-2024 Monocytes/100 WBC (Bld) 7.8 % 0-10 [facility] Neutrophil percentageOrdered By: Robert Ledesma on 12-11-2024 Neutrophils/100 WBC (Bld) 52.4 % 47-70 [facility] Nucleated red blood cell per centageOrdered By: Robert Ledesma on 12-11-2024 Nucleated RBC/100 WBC (Bld) [Ratio] 0 % 0-5 [facility] Partial Thromboplast Timeon 12-11-2024 aPTT Coag (Bld) [Time] 25.8 s Normal 24.1-36.2 [facility] Comment on above: Performed By: #### L 100.9950, L100.0100, L503.6030, L503.6550 #### [facility] Laboratory [address] [place], [address] Platelet countOrdered By: Loly Ledesma on 12-11-2024 Platelets (Bld) [#/Vol] 255 10*3/uL 150-450 [facility] Potassium measurement (mass/ volume)Ordered By: Robert Ledesma on 12-11-2024 Potassium (Unsp spec) [Mass/Vol] 4.1 mmol/L 3.3-5.1 [facility] Prothrombin Time w/INRon INR Coag (PPP) [Relative time] 1.0 {INR} Normal [facility] Comment on above: Performed By: #### L 100.9950, L100.0100, L503.6030, L503.6550 #### [facility] Laboratory [address] [place], [place], [address] PT Coag (PPP) [Time] 13.5 s Normal 11.7-14.[address] [facility] Comment on above: Performed By: #### L 100.9950, L100.0100, L503.7752, L503.3243 #### [facility] Laboratory [address] [place], [place], [id number] Prothrombin timeOrdered By: Robert Ledesma on 12-11-2024 PT Coag (PPP) [Time] 13.5 s 11.7-14.[address] [facility] RBC Auto (Bld) [#/Vol]Ordere d By: Robert Ledesma on 12-11-2024 RBC (Bld) [#/Vol] 4.87 10*6/uL 4.2-5.4 [facility] Serum creatinine measurement (mass/volume)Ordered By: Robert Ledesma on 12-11-2024 Creatinine [Mass/Vol] 0.91 mg/dL 0.70-1.20 [facility] Serum glucose measurement (m ass/volume)Ordered By: Robert Ledesma on 12-11-2024 Glucose [Mass/Vol] 94 mg/dL 70-99 [facility] Serum or plasma calcium cooper urement (mass/volume)Ordered By: Robert Ledesma on 12-11-2024 Calcium [Mass/Vol] 9.7 mg/dL 7.6-11.0 [facility] Serum or plasma urea nitroge n measurement (mass/volume)Ordered By: Robert Ledesma on 12-11-2024 Urea nitrogen [Mass/Vol] 19 mg/dL 4-19 [facility] Sodium levelOrdered By: Sam Ledesma on 12-11-2024 Sodium [Moles/Vol] 139 mmol/L 133-145 [facility] Venous Duplex US, Unilateral on 12-11-2024 Venous Duplex US, Unilateral [facility] [address] [place] [address] Venous Duplex US, Unilateral 12/11/24 0810 MR#: [id number] Acct: [id number] Name: KAROLINA AHN Rep #: [id number] : 1965 59 From: Jose Blue MD [...] MD Date Dictated: 12/11/24809 Date Transcribed: 12/11/242120 Environmental Compliance Officer: Signed Normal [facility] White blood cell (WBC) count Ordered By: Robert Ledesma on 12-11-2024 WBC (Bld) [#/Vol] 5.4 10*3/uL 4.4-11.0 [facility] CNOVon 12-08-2024 CNOV Office Visit ([facility]) KAROLINA AHN ([id number]) 1965 F Date Time Provider Department 12/08/24 2:15 PM MARGUERITE DAILY During your visit today, we recorded the following information about you: Temperature Pulse Respiration Blood pressure 98 degrees 73/minute 18/minute 118/72 Weight 64.2 kg Marguerite Daily APRN.EDUCATION ASSISTANT 12/08/2024 3:46 PM Addendum [facility] [...] tension free vaginal sling, cystoscopy (Dr. Luis, [facility]) VAGINAL HYSTERECTOMY 04/06/2014 LAVH, BSO, anterior and posterior repair (Dr. Muniz, [facility]) ALLERGIES Hydrocodone-Acetamino phen, Aspirin, and Oxycodone MEDICATIONS [...] diagnosis) Post op shoe provided F/u with delivery man in 10 days if s/s persist. Prophylactic [...] PHEN 10/29/2016 (more content not included)... Normal [facility] XR TOE 3V AP/LAT/OBL LTon XR TOE [...] the distal phalanx of the second digit Environmental Compliance Officer: GREGORY Transcribe Date/Time: Dec 08 2024 2:37P Dictated by : JOSEPH WATKINS DO This examination was interpreted and the report reviewed and electronically signed by: JOSEPH WATKINS DO on Dec 08 2024 2:40PM EST [id number] Normal [facility] XR Toes - left 3 Viewson IMPRESSION: Probable intra-articular fracture of the base of the distal phalanx of the second digit Environmental Compliance Officer: GREGORY Transcribe Date/Time: Dec 08 2024 2:37P Dictated by : JOSEPH WATKINS DO This examination was interpreted and the report reviewed and electronically signed by: JOSEPH WATKINS DO on Dec 08 2024 2:40PM EST DIVISION OF RADIOLOGY * * *Final Report* [...] interphalangeal joints DIVISION OF RADIOLOGY Provider, Van Stubbs - 12/08/2024 * * *Final Report* * [...] the distal phalanx of the second digit Environmental Compliance Officer: PSCB Transcribe Date/Time: Dec 08 2024 2:37P Dictated by : JOSEPH WATKINS DO This examination was interpreted and the report reviewed and electronically signed by: JOSEPH WATKINS DO on Dec 08 2024 2:40PM [facility] Radiology Study observation (narrative) Rafia bryant [facility] XR Toes - left 3 ViewsOrdere d By: Nadeen Provider on 12-08-2024 [facility] Samson 11-23-2024 JUAN Telephone (UROLAG) KAROLINA AHN ([id number]) 1965 F Date Time Provider Department 11/23/24 FÁTIMA SANTILLAN During your visit today, we [...] on: 12/04/2024 06:37 PM Modules accepted: Orders Ignacia Dueñas 12/10/2024 1:58 PM Signed Scheduled patient for [...] (HCC) [K65.9] Order(s):MRI FEMALE PELVIS WO/W IVCON [[id number]] Order #: [id number] FUTURE [] iv contrast (will be provided [...] 0 0 (more content not included)... Normal [facility] CNOVon 10-23-2024 CNOV Office Visit (UROLAE ) KAROLINA AHN ([id number]) 1965 F Date Time Provider Department 10/23/24 9:45 AM FÁTIMA SANTILLAN During your visit today, we recorded the following information about you: Fátima Santillan MD 11/24/2024 11:13 PM Signed [facility] NEW PATIENT [...] 09/24/2024. Other /urogyn providers: April Nicole MD Pediatrician Active Practice: STERLING Dunn The patient was seen by STERLING Dunn of [employer] for 2-month history of dysuria and pelvic [...] by my nurse/MA at today's visit. Today's [id number]-komo urine testing trace, intact blood, negative nitrite, [...] Medications None reported Previous HRT-blood clots Past [employer] History: G 6 P 6 Vaginal deliveries: 6 section: 0 History of third or fourth degree laceration: Yes Weight of largest baby: 9 pounds 7 ounces Hysterectomy: Yes/48 years old (LAVH/BSO/AP repair) Diagnosis: Bleeding prolapse Ovaries removed: Yes Menopause : yes, surgical at 48 HRT :no; HRT associated with blood clots Menstrual history: Menarche 12yo Sexual functio (more content not included)... Normal [facility] CNOV Office Visit (UROLAE ) KAROLINA AHN ([id number]) 1965 F Date Time Provider Department 10/23/24 [...] Procedure confirmed with physician and client support representative: Yes UNIVERSAL PROTOCOL / SAFETY CHECKLIST Procedure [...] urethral diverticulum, stricture, kinking or angulation. Careful [place] endoscopy was carried out. The posterior, superior [...] and increase oral fluid intake as directed. Stage Producer offered:Patient accepts, visit chaperoned by Alejandra Flannery [...] breast ca (more content not included)... Normal [facility] UA DIP, URINE (POC)on 2024 BILIRUBIN UA (POCT) Negative Negative [facility] CLARITY UA (POCT) Clear [facility] COLOR UA (POCT) Yellow [facility] GLUCOSE UA (POCT) Negative Negative mg/dL [facility] Hemoglobin Ql (U) Trace-intact Abnormal Negative [facility] Interpretation and review of laboratory results Abnormal [facility] KETONE UA (POCT) Negative Negative mg/dL [facility] LEUKOCYTES UA (POCT) Small Abnormal Negative [facility] NITRITE UA (POCT) Negative Negative [facility] PH UA (POCT) 7 4.5 - 8.0 [facility] Protein Ql (U) Negative Negative mg/dL [facility] SPECIFIC GRAVITY UA (POCT) 1.02 1.005 - 1.030 [facility] UROBILINOGEN UA (POCT) 0.2 Elizabet l E.U./dL [facility] Location:[facility] Urology Dept, [address] [place] [address], [address] [place] [address] [facility] JUAN Telephone (UROLAE) JIMYKAROLINA Alejandra ([id number]) 1965 F Date Time Provider Department 10/15/24 [...] has cystoscopy with him 11/03/24. Elida Angelo APRN.EDUCATION ASSISTANT Fátima Santillan MD 10/21/2024 7:45 AM Signed Per my conversations with Ladarius Pathak MD, we will reschedule patient's cystoscopy from him to Fátima Santillan MD given likelihood that this is associated with mid urethral sling erosion. Please reschedule. Rebeca Curry MA 10/21/2024 1:54 PM Signed Left message to advise patient she is scheduled for cystoscopy with Dr. Santillan on 10/23/24 at 9:30 at the [facility]. PEYTON Saini Donna, MA 10/22/2024 8:39 AM Signed Spoke with patient and confirmed appointment. Rebeca Curry MA Allergies As of Date: 10/15/2024 Noted Allergy Reaction HYDROCODONE-ACETAMINO PHEN 10/29/2016 11 - Vomiting ASPIRIN 02/27/2006 Comments: tired and weak and made her feel weird can take Ibuprofen OXYCODONE 02/08/2022 9 - Itching Date Reviewed: 09/24/2024 Reviewed by: Elida Angelo APRN.EDUCATION ASSISTANT - Fully Assessed Reason for Visit: Results [...] Unspecified constipation [K59.00] 01/15/2011 Encounter Status:Closed by PETEY ELIDA Aneta on 10/15/24 Normal [facility] Pelvis without IV Contraston 10-13-2024 Pelvis without IV Contrast [facility] Imaging Services [address] [place] [address] Pelvis without IV Contrast MR#: [id number] Acct: [id number] Name: KAROLINA AHN Rep #: [id number] : 1965 F 59 From: Pablo mosley MD PCP: Dr. Jimbo Dash MD Status: REG CLI Study: Pelvis without IV Contrast Date of Exam: 10/13 Exam# [id number] Ordering Dr: Lian Pittman,Out o. PROCEDURE: PELVIS WITHOUT IV CONTRAST 10/13/2024 [...] the large bowels. Mild osteopenia. Reading Location: [facility] CC: ELIDA ANGELO; Dr. Jimbo Dash MD Environmental Compliance Officer: Signed [facility] 09-25-2024 [facility] Telephone (UROLS) KAROLINA AHN ([id number]) 1965 F Date Time Provider Department 09/25/24 ELIDA ANGELO During your visit today, we recorded the following information about you: Elida Angelo APRN.EDUCATION ASSISTANT 09/25/2024 12:20 PM Signed Patient is aware of plan for CT and cystoscopy with Dr Pathak. Orders have been placed in office visit from yesterday. Please help patient schedule. Thanks. Elida Angelo APRN.EDUCATION ASSISTANT Cece Abreu 09/28/2024 9:14 AM Signed Lv to call and confirm CeceCece Cardoza 09/29/2024 8:13 AM Signed LVM Cece Galvan 09/30/2024 8:41 AM Signed Confirmed - having [place] done [place] Cece Abreu Allergies As of Date: 09/25/2024 Noted Allergy Reaction HYDROCODONE-ACETAMINO PHEN 10/29/2016 11 - Vomiting ASPIRIN 02/27/2006 Comments: tired and weak and made her feel weird can take Ibuprofen OXYCODONE 02/08/2022 9 - Itching Date Reviewed: 09/24/2024 Reviewed by: Elida Angelo APRN.[facility] - Fully Assessed Reason for Visit: Patient [...] Status:Closed by ELIDA ANGELO on 09/25/24 Normal [facility] BLADDER SCANon 09-24-2024 PVR 0 Cc [facility] CNOVon 09-24-2024 CNOV Office Visit (UROLAE ) KAROLINA AHN ([id number]) 1965 F Date Time Provider Department 09/24/24 11:00 AM ELIDA ANGELO During your visit today, we recorded the following information about you: Pulse Blood pressure Height 88/minute 118/73 1.6 m Elida Angelo APRN.EDUCATION ASSISTANT 09/25/2024 12:20 PM Addendum [facility] [place] [facility] Urology - [place] UROL [place] EXCHANGE NEW PATIENT UROLOGY VISIT 09/24/2024 7:33 AM PATIENT NAME: Karolina Ahn DATE OF : 1965 TODAY'S DATE: 09/24/2024 Referring Provider: Ric Taylor [address] [facility] [address] Referring Note Reviewed: Yes Chief Complaint: bladder [...] documents). She has been referred by her [employer] office. Chart notes and results reviewed. Reports [...] tension free vaginal sling, cystoscopy (Dr. Luis, [facility]) VAGINAL HYSTERECTOMY 04/06/2014 LAVH, BSO, anterior and posterior repair (Dr. Muniz, [facility]) Social History: Social History Tobacco Use [...] , Taking? , Authorizing Provider Walt Ulrich APRN.EDUCATION ASSISTANT Medication phenazopyridine (PYRIDIUM) 200 mg tablet, Sig [...] tablet by mouth twice daily., Start Date 4/11/12, End Date , Taking? , Authorizing Provider [...] 09/17/2022 C (more content not included)... Normal [facility] UA DIP, URINE (POC)on 2024 BILIRUBIN UA (POCT) Negative Negative [facility] CLARITY UA (POCT) Clear [facility] COLOR UA (POCT) Yellow [facility] GLUCOSE UA (POCT) Negative Negative mg/dL [facility] Hemoglobin Ql (U) Negative Negative [facility] KETONE UA (POCT) Negative Negative mg/dL [facility] LEUKOCYTES UA (POCT) Negative Negative [facility] NITRITE UA (POCT) Negative Negative [facility] PH UA (POCT) 7 4.5 - 8.0 [facility] Protein Ql (U) Negative Negative mg/dL [facility] SPECIFIC GRAVITY UA (POCT) 1.015 1.005 - 1.030 [facility] UROBILINOGEN UA (POCT) 0.2 Elizabet l E.U./dL [facility] Location:[facility] Urology Dept, [address] [place] [address], [address] [place] [address] POINT OF CARE [facility] Anion gap in Serum or Plasma Ordered By: Jimbo Dash on 08-17-2024 Anion gap [Moles/Vol] 11 mmol/L - [facility] BUN/creatinine ratioOrdered By: Jimbo Dash on 08-17-2024 Urea nitrogen/Creatinine [Mass ratio] 23.4 mg/mg High 10- [facility] Bilirubin, totalOrdered By: Jimbo Dash on 08-17-2024 Bilirubin [Mass/Vol] 0.52 mg/dL 0.00-1.[address] [facility] Calculated very low density lipoprotein (VLDL) cholesterol measurementOrdered By: Jimbo Dash on 08-17-2024 Calculated very low density lipoprotein (VLDL) cholesterol measurement 21 mg/dL 5-40 [facility] Carbon dioxide, total [Moles /volume] in Central venous bloodOrdered By: Jimbo Dash on 08-17-2024 CO2 [Moles/Vol] 22.9 mmol/L 21.0-32.0 [facility] Chloride assayOrdered By: Kings Dash on 08-17-2024 Chloride [Moles/Vol] 105 mmol/L 98-[address] [facility] Comprehensive Metabolic Prof ilon 08-17-2024 Albumin [Mass/Vol] 4.2 g/dL Normal 3.5-5.0 [facility] Comment on above: Performed By: #### L 100.9950, L100.0100, L503.6030, L503.6550 #### [facility] Laboratory [address] [place], [address] Albumin/Globulin [Mass ratio] 1.5 {ratio} Normal 0.9-2.4 [facility] Comment on above: Performed By: #### L 100.9950, L100.0100, L503.6030, L503.6550 #### [facility] [address] [place], [address] ALK PHOS 129 U/L High 35-104 [facility] Comment on above: Performed By: #### L 100.9950, L100.0100, L503.6030, L503.6550 #### [facility] [address] [place], [address] ALT [Catalytic activity/Vol] 22 U/L Normal <=34 [facility] Comment on above: Performed By: #### L 100.9950, L100.0100, L503.6030, L503.6550 #### [facility] [address] [place], [address] AST [Catalytic activity/Vol] 23 U/L Normal <=31 [facility] Comment on above: Performed By: #### L 100.9950, L100.0100, L503.6030, L503.6550 #### [facility] [address] [place], [address] Bilirubin [Mass/Vol] 0.52 mg/dL Normal 0.00-1.[address] [facility] Comment on above: Performed By: #### L 100.9950, L100.0100, L503.6030, L503.6550 #### [facility] [address] [place], [address] BUN/CRE 23.4 RATIO High 10-20 [facility] Comment on above: Performed By: #### L 100.9950, L100.0100, L503.6030, L503.6550 #### [facility] [address] [place], [address] Calcium [Mass/Vol] 9.6 mg/dL Normal 7.6-11.0 [facility] Comment on above: Performed By: #### L 100.9950, L100.0100, L503.6030, L503.6550 #### [facility] [address] [place], [address] Chloride [Moles/Vol] 105 mmol/L Normal 98-[address] [facility] Comment on above: Performed By: #### L 100.9950, L100.0100, L503.6030, L503.6550 #### [facility] [address] [place], [address] CO2 [Moles/Vol] 22.9 mmol/L Normal 21.0-32.0 [facility] Comment on above: Performed By: #### L 100.9950, L100.0100, L503.6030, L503.6550 #### [facility] [address] [place], [address] Creatinine [Mass/Vol] 0.92 mg/dL Normal 0.70-1.20 [facility] Comment on above: Performed By: #### L 100.9950, L100.0100, L503.6030, L503.6550 #### [facility] [address] [place], [address] GAP 11 Normal 5-15 [facility] Comment on above: Performed By: #### L 100.9950, L100.0100, L503.6030, L503.6550 #### [facility] [address] [place], [address] GFR/1.73 sq M.predicted among non-blacks MDRD (S/P/Bld) [Vol rate/Area] 72 mL/min/{1.73_m2} Normal >60 [facility] Comment on above: Result Comment: mL/m in/1.73m2 CKD-EPI Creatinine Equation (2020) Performed By: #### L 100.9950, L100.0100, L503.6030, L503.6550 #### [facility] [address] [place], [address] Globulin (S) [Mass/Vol] 2.7 g/dL Normal 2.2-4.2 [facility] Comment on above: Performed By: #### L 100.9950, L100.0100, L503.6030, L503.6550 #### [facility] [address] [place], [address] Glucose [Mass/Vol] 81 mg/dL Normal 70-99 [facility] Comment on above: Performed By: #### L 100.9950, L100.0100, L503.6030, L503.6550 #### [facility] [address] [place], [address] Potassium [Moles/Vol] 4.1 mmol/L Normal 3.3-5.1 [facility] Comment on above: Performed By: #### L 100.9950, L100.0100, L503.6030, L503.6550 #### [facility] [address] [place], [address] Sodium [Moles/Vol] 138 mmol/L Normal 133-145 [facility] Comment on above: Performed By: #### L 100.9950, L100.0100, L503.6030, L503.6550 #### [facility] [address] [place], [address] T PROT 6.9 g/dL Normal 5.9-8.4 [facility] Comment on above: Performed By: #### L 100.9950, L100.0100, L503.6030, L503.6550 #### [facility] [address] [place], [address] Urea nitrogen [Mass/Vol] 21 mg/dL High 4-19 [facility] Comment on above: Performed By: #### L 100.9950, L100.0100, L503.6030, L503.6550 #### [facility] [address] [place], [address] Glomerular filtration rate ( GFR) estimation/1.73 sq m using serum, plasma, or whole bOrdered By: Jimbo Dash on 08-17-2024 GFR/1.73 sq M.predicted among non-blacks MDRD (S/P/Bld) [Vol rate/Area] 72 mL/min/{1.73_m2} >60 [facility] Comment on above: mL/min/1.73m2 CKD-EP I Creatinine Equation (2020) LDL calc ser/plasOrdered By: Jimbo Dash on 08-17-2024 Cholesterol in LDL [Mass/Vol] 113 mg/dL [facility] Comment on above: Yzfwcckmbn=093-261 m g/dL & Higher Aivr=564 mg/dL or greater Laboratory - Chemistry and C hemistry - challengeOrdered By: Jimbo Dash on 08-17-2024 AST [Catalytic activity/Vol] 23 U/L <32 [facility] Lipid Profileon 08-17-2024 CHOL:HDL 3.04 Normal [facility] Comment on above: Performed By: #### L 100.9950, L100.0100, L503.6030, L503.6550 #### [facility] [address] [place], [address] Cholesterol [Mass/Vol] 200 mg/dL Normal <=200 [facility] Comment on above: Result Comment: Chol esterol level, Desirable <200 mg/dL Borderline high cholesterol 200-239 mg/dL High cholesterol >=240 mg/dL Recommendations of the NCEP Adult Treatment Panel for the following risk-cutoff thresholds for the [place] population. Performed By: #### L 100.9950, L100.0100, L503.6030, L503.6550 #### [facility] [address] [place], [address] Cholesterol in HDL [Mass/Vol] 66 mg/dL Normal [facility] Comment on above: Result Comment: Nivia onal Cholesterol Education Program (NCEP) guidelines: <40 mg/dL: Low HDL-cholesterol (major risk factor for CHD) >= 60 mg/dL: High HDL-cholesterol (negative risk factor for CHD) HDL-cholesterol is affected by a number of factors, e.g. smoking, exercise, hormones, sex and age. Performed By: #### L 100.9950, L100.0100, L503.6030, L503.6550 #### [facility] [address] [place], [address] Cholesterol in LDL [Mass/Vol] 113 mg/dL Normal [facility] Comment on above: Result Comment: Bord cbrrdi=292-999 mg/dL Higher Vezs=897 mg/dL or greater Performed By: #### L 100.9950, L100.0100, L503.6030, L503.6550 #### [facility] [address] [place], [address] Cholesterol in VLDL [Mass/Vol] 21 mg/dL Normal 5-40 [facility] Comment on above: Performed By: #### L 100.9950, L100.0100, L503.6030, L503.6550 #### [facility] [address] [place], [place], [address] Triglyceride [Mass/Vol] 106 mg/dL Normal [facility] Comment on above: Result Comment: The drugs N-Acetylcysteine and Metamizole may falsely depress this assay. Normal range: <150 mg/dL Borderline High: 150-199 mg/dL High: 200-499 mg/dL Very High: >500 mg/dL Performed By: #### L 100.9950, L100.0100, L503.6030, L503.6550 #### [facility] [address] [place], [place], [address] MR/BMS.Juan Daniel 08-17-2024 MR/BMS.S [facility] Vascular Surgery [address] [facility] [place] [address] OFFICE VISIT Date of Service: 08/17/24 MR#: [id number] Acct: [id number] Name: KAROLINA AHN Rep #: [id number] : 1965 Provider: Dr. 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 Normal [facility] Potassium measurement (mass/ volume)Ordered By: Jimbo Dash on 08-17-2024 Potassium (Unsp spec) [Mass/Vol] 4.1 mmol/L 3.3-5.1 [facility] Screening total cholesterol/ high density lipoprotein (HDL) cholesterol ratioOrdered By: Jimbo Dash on 08-17-2024 Cholesterol.total/Kayla sterol in HDL [Mass ratio] 3.04 {ratio} [facility] Serum creatinine measurement (mass/volume)Ordered By: Jimbo Dash on 08-17-2024 Creatinine [Mass/Vol] 0.92 mg/dL 0.70-1.20 [facility] Serum globulin measurementOr dered By: Jimbo Dash on 08-17-2024 Globulin (S) [Mass/Vol] 2.7 g/dL 2.2-4.2 [facility] Serum glucose measurement (m ass/volume)Ordered By: Jimbo Dash on 08-17-2024 Glucose [Mass/Vol] 81 mg/dL 70-99 [facility] Serum or plasma alanine hernández otransferase (ALT) measurementOrdered By: Jimbo Dash on 08-17-2024 ALT [Catalytic activity/Vol] 22 U/L <35 [facility] Serum or plasma albumin cooper urement (mass/volume)Ordered By: Jimbo Dash on 08-17-2024 Albumin [Mass/Vol] 4.2 g/dL 3.5-5.0 [facility] Serum or plasma albumin/glob ulin mass ratioOrdered By: Jimbo Dash on 08-17-2024 Albumin/Globulin [Mass ratio] 1.5 {ratio} 0.9-2.4 [facility] Serum or plasma alkaline willy sphatase measurementOrdered By: Jimbo Dash on 08-17-2024 ALP [Catalytic activity/Vol] 129 U/L High 35-104 [facility] Serum or plasma calcium cooper urement (mass/volume)Ordered By: Jimbo Dash on 08-17-2024 Calcium [Mass/Vol] 9.6 mg/dL 7.6-11.0 [facility] Serum or plasma cholesterol in HDL measurement (mass/volume)Ordered By: Jimbo Dash on 08-17-2024 Cholesterol in HDL [Mass/Vol] 66 mg/dL >40 [facility] Comment on above: National Cholesterol Education Program (NCEP) guidelines:<40 mg/dL: Low HDL-cholesterol (major risk factor for CHD)>= 60 mg/dL: High HDL-cholesterol (negative risk factor for CHD)HDL-cholesterol is affected by a number of factors, e.g. smoking, exercise, hormones, sex and age. Serum or plasma cholesterol measurement (mass/volume)Ordered By: Jimbo Dash on 08-17-2024 Cholesterol [Mass/Vol] 200 mg/dL <201 [facility] Comment on above: Cholesterol level, D esirable <200 mg/dLBorderline high cholesterol 200-239 mg/dLHigh cholesterol >=240 mg/dLRecommendations of the NCEP Adult Treatment Panel for the following risk-cutoff thresholds for the [place] population. Serum or plasma urea nitroge n measurement (mass/volume)Ordered By: Jimbo Dash on 08-17-2024 Urea nitrogen [Mass/Vol] 21 mg/dL High 4-19 [facility] Sodium levelOrdered By: Jimbo Dash on 08-17-2024 Sodium [Moles/Vol] 138 mmol/L 133-145 [facility] Total proteinOrdered By: Laurie Dash on 08-17-2024 Protein [Mass/Vol] 6.9 g/dL 5.9-8.4 [facility] Triglycerides measurementOrd ered By: Jimbo Dash on 08-17-2024 Triglyceride [Mass/Vol] 106 mg/dL <199 [facility] Comment on above: The drugs N-Acetylcy steine and Metamizole may falsely depress this assay. Normal range: <150 mg/dLBorderline High: 150-199 mg/dLHigh: 200-499 mg/dLVery High: >500 mg/dL Abdominal aortic duplex scan reportOrdered By: Reji Goldberg on 07-20-2024 US.doppler Thoracic and abdominal aorta [facility] Cardiovascular Services [address] [address] Abd Aortic/IVC Duplex scan 07/14/24 0910 MR#: [id number] Acct: [id number] Name: KAROLINA AHN Rep #:[id number] : 1965 59 From: Reji Bryant Attending [...] Dr. Jimbo Dash MD ~ Date Dictated: 07/14/2410 Date Transcribed: 07/20/24 1238 Environmental Compliance Officer: Signed [facility] Work Phone: Abd Aortic/IVC Duplex scanon 07-14-2024 Abd Aortic/IVC Duplex scan [facility] Cardiovascular Services [address] [facility] [place] [address] Abd Aortic/IVC Duplex scan 07/14/2410 MR#: [id number] Acct: [id number] Name: KAROLINA AHN Rep #: [id number] : 1965 59 From: Reji Goldberg MD [...] has spontaneous, phasic flow throughout. Stent Noted. /Abd Aortic/IVC Duplex scan Interpretation Summary Inferior vena cava and bilateral iliac vein stents patent with normal venous flow pattern. Ordering Physician: Reji Goldberg Referring Physician: Jimbo Dash Performed By: River Leblanc, RVT 07/20/24 1238 Date Reji Goldberg MD CC: KINGS Sidhu; Dr. Reji Goldberg MD; Dr. Jimbo Dash MD Date Dictated: 07/14/2410 Date Transcribed: 07/20/241237 Environmental Compliance Officer: Signed Normal [facility] Urine Cultureon 07-11-2024 [facility] Order Date: 07/08/24 Order Info: 630-4 - CUUR Strep anginosus Devine Count 80,000-100,000 Strep anginosus: REACTION Ampicillin Islt MAX <=0.25 Penicillin G Islt MAX <=0.06 S Cefotaxime Islt MAX <=0.12 S cefTRIAXone Islt MAX <=0.12 S Clindamycin Islt MAX <=0.25 S Erythromycin Islt MAX 4 R Linezolid Islt MAX <=2 S Vancomycin Islt MAX 0.5 S Normal [facility] Center Comment on above: Performed By: #### L 100.9950, L100.0100, L503.6030, L503.6550 #### [facility] [address] [place], [address] Bilirubin Test strip Ql (U)O rdered By: Jimbo Dash on 07-08-2024 Bilirubin Ql (U) Negative Negative [facility] Epithelial cells.squamous LM Ql (Urine sed)Ordered By: Jimbo Dash on 07-08-2024 Epithelial cells.squamous LM.HPF (Urine sed) [#/Area] 0 /[HPF] 5-10 [facility] Glucose Ql (U)Ordered By: Kings Dash on 07-08-2024 Urine Glucose (UA) Normal mg/dl Normal [facility] Ketones Test strip Ql (U)Ord ered By: Jimbo Dash on 07-08-2024 Ketones Ql (U) Negative Negative [facility] Microscopic analysis of urin e for red blood cells (RBC)Ordered By: Jimbo Dash on 07-08-2024 Microscopic analysis of urine for red blood cells (RBC) 0-5 SEEN /hpf 0-5 [facility] Urine RBC 0-5 SEEN /hpf 0-5 [facility] Mucus LM Ql (Urine sed)Order ed By: Jimbo Dash on 07-08-2024 Mucus Ql (Urine sed) 0 SEEN /hpf [facility] Nitrite Test strip Ql (U)Ord ered By: Jimbo Dash on 07-08-2024 Nitrite Ql (U) Negative Negative [facility] Protein Test strip Ql (U)Ord ered By: Jimbo Dash on 07-08-2024 Protein Ql (U) 30 mg/dl High Negative [facility] Squamous epithelial cells de tection in urine sediment by light microscopyOrdered By: Jimbo Dash on 07-08-2024 Epithelial cells.squamous LM Ql (Urine sed) 0-5 SEEN /hpf 5-10 [facility] Transitional cells LM Ql (Ur ine sed)Ordered By: Jimbo Dash on 07-08-2024 Urine Transitional Epithelial Cells 0-5 SEEN /hpf 0-5 [facility] Transitional cells detection in urine sediment by light microscopyOrdered By: Jimbo Dash on 07-08-2024 Transitional cells LM Ql (Urine sed) 0-5 SEEN /hpf 0-5 [facility] Urinalysis, Completeon 07-08 EPI,SQUAMOUS 0-5 SEEN Normal 5-10 [facility] Comment on above: Order Comment: Order Date: 07/08/24Order Info: [id number] - UACCOLLECTOR TO SPECIFY Performed By: #### L 100.9950, L100.0100, L503.6030, L503.6550 #### [facility] [address] [place], [place], [address] EPI,TRANSITION 0-5 SEEN Normal 0-5 [facility] Comment on above: Order Comment: Order Date: 07/08/24Order Info: [id number] - UACCOLLECTOR TO SPECIFY Performed By: #### L 100.9950, L100.0100, L503.6030, L503.6550 #### [facility] [address] [place], [place], [id number] RBC 0-5 SEEN Normal 0-5 [facility] Comment on above: Order Comment: Order Date: 07/08/24Order Info: [id number] - UACCOLLECTOR TO SPECIFY Performed By: #### L 100.9950, L100.0100, L503.6030, L503.6550 #### [facility] [address] [place], [address] WBC 0-5 SEEN Normal 0-5 [facility] Comment on above: Order Comment: Order Date: 07/08/24Order Info: [id number] - UACCOLLECTOR TO SPECIFY Performed By: #### L 100.9950, L100.0100, L503.6030, L503.6550 #### [facility] [address] [place], [address] BACTERIA 0 SEEN Normal None Seen [facility] Comment on above: Order Comment: Order Date: 07/08/24Order Info: [id number] - UACCOLLECTOR TO SPECIFY Performed By: #### L 100.9950, L100.0100, L503.6030, L503.6550 #### [facility] [address] [place], [address] Mucus Ql (Urine sed) [address] [facility] Comment on above: Order Comment: Order Date: 07/08/24Order Info: [id number] - UACCOLLECTOR TO SPECIFY Performed By: #### L 100.9950, L100.0100, L503.6030, L503.6550 #### [facility] [address] [place], [address] Urine blood detectionOrdered By: Jimbo Dash on 07-08-2024 Urine Occult Blood 150 /ul High Negative [facility] Urine clarityOrdered By: Laurie Dash on 07-08-2024 Clarity (U) Sl. Cloudy Clear [facility] Urine color determinationOrd ered By: Jimbo Dash on 07-08-2024 Color (U) Yellow Yellow [facility] Urine cultureOrdered By: Laurie Dash on 07-08-2024 Bacteria identified Cx Nom (U) Strep anginosus Abnormal [facility] Urine glucose detectionOrder ed By: Jimbo Dash on 07-08-2024 Glucose Ql (U) Normal mg/dl Normal [facility] Urine leukocyte esterase det ection by dipstickOrdered By: Jimbo Dash on 07-08-2024 Leukocyte esterase Test strip Ql (U) 500 /ul High Negative [facility] Urine pHOrdered By: Jimbo Rodriguez lsen on 07-08-2024 pH (U) 6.0 [pH] 5.0 - 8.0 [facility] Urine sediment bacteria coun t by microscopy (number/high power field)Ordered By: Jimbo Dash on 07-08-2024 Bacteria LM.HPF (Urine sed) [#/Area] 0 /[HPF] None Seen [facility] Urine specific gravity measu rementOrdered By: Jimbo Dash on 07-08-2024 Specific gravity (U) [Rel density] 1.025 1.002-1.030 [facility] Urine urobilinogen measureme ntOrdered By: Jimbo Dash on 07-08-2024 Urobilinogen Ql (U) Normal mg/dl Normal [facility] Urobilinogen Ql (U)Ordered B y: Jimbo Dash on 07-08-2024 Urine Urobilinogen Normal mg/dl Normal [facility] White blood cell countOrdere d By: Jimbo Dash on 07-08-2024 Urine WBC 0-5 SEEN /hpf 0-5 [facility] White blood cell count 0-5 SEEN /hpf 0-5 [facility] 12 Lead EKGon 06-11-[address] [facility] Cardiovascular Services [address] [place] [address] 12 Lead EKG 06/11/24 1430 MR#: [id number] Acct: [id number] Name: KAROLINA AHN Rep #: [id number] : 1965 59 From: Sumeet Hamilton MD [...] Normal ECG Confirmed by JENNI MCELROY, MIRNA ([id number]), editor managing newspaper RAOUL MCDOWELL ([id number]) on 06/15/2024 8:07:34 AM Referred By: Rupert Mensah Confirmed By: MIRNA HAMILTON MD 06/15/24 0807 Date Sumeet Hamilton MD CC: Dr. Jimbo Dash MD; Dr. Rupert Mensah, DO Signed Normal [facility] Absolute neutrophil countOrd ered By: Rupert Mensah on 06-11-2024 Neutrophils (Bld) [#/Vol] 3.8 10*3/uL 2.0-7.7 [facility] Basic Metabolic Profile (BMP )on 06-11-2024 BUN/CRE 18.9 RATIO Normal 10-20 [facility] Comment on above: Order Comment: 'TROP ' Serial specimen #1, #2 or #3: 1 Performed By: #### L 501.4020, L300.8000, L300.3900, L300.4310, L100.0100, L500.2500 ####[facility] [address] [place], [address] CA,Total 8.9 mg/dL Normal 8.5-10.1 [facility] Comment on above: Order Comment: 'TROP ' Serial specimen #1, #2 or #3: 1 Performed By: #### L 501.4020, L300.8000, L300.3900, L300.4310, L100.0100, L500.2500 ####[facility] [address] [place], [address] Chloride [Moles/Vol] 111 mmol/L High 98-[address] [facility] Comment on above: Order Comment: 'TROP ' Serial specimen #1, #2 or #3: 1 Performed By: #### L 501.4020, L300.8000, L300.3900, L300.4310, L100.0100, L500.2500 ####[facility] [address] [place], [address] CO2 [Moles/Vol] 23.0 mmol/L Normal 21.0-32.0 [facility] Comment on above: Order Comment: 'TROP ' Serial specimen #1, #2 or #3: 1 Performed By: #### L 501.4020, L300.8000, L300.3900, L300.4310, L100.0100, L500.2500 ####[facility] [address] [place], [address] Creatinine [Mass/Vol] 0.90 mg/dL Normal 0.55-1.02 [facility] Comment on above: Order Comment: 'TROP ' Serial specimen #1, #2 or #3: 1 Result Comment: The validity of the calculated GFR GFRAA in patients over 70 years has not been determined. Clinical correlation is essential. Performed By: #### L 501.4020, L300.8000, L300.3900, L300.4310, L100.0100, L500.2500 ####[facility] [address] [place], [address] ECRCL 60.56 ml/min Normal [facility] Comment on above: Order Comment: 'TROP ' Serial specimen #1, #2 or #3: 1 Performed By: #### L 501.4020, L300.8000, L300.3900, L300.4310, L100.0100, L500.2500 ####[facility] [address] [place], [address] EST GFR - AA 82 mL/min Normal >60 [facility] Comment on above: Order Comment: 'TROP ' Serial specimen #1, #2 or #3: 1 Result Comment: Afri can [place] GFR Calc Performed By: #### L 501.4020, L300.8000, L300.3900, L300.4310, L100.0100, L500.2500 ####[facility] [address] [place], [address] GAP 6 Normal 5-15 [facility] Comment on above: Order Comment: 'TROP ' Serial specimen #1, #2 or #3: 1 Performed By: #### L 501.4020, L300.8000, L300.3900, L300.4310, L100.0100, L500.2500 ####[facility] [address] [place], [address] GFR/1.73 sq M.predicted among non-blacks MDRD (S/P/Bld) [Vol rate/Area] 68 mL/min/{1.73_m2} Normal >60 [facility] Comment on above: Order Comment: 'TROP ' Serial specimen #1, #2 or #3: 1 Result Comment: Non- GFR Calc Performed By: #### L 501.4020, L300.8000, L300.3900, L300.4310, L100.0100, L500.2500 ####[facility] [address] [place], [address] Glucose [Mass/Vol] 140 mg/dL High 74-106 [facility] Comment on above: Order Comment: 'TROP ' Serial specimen #1, #2 or #3: 1 Result Comment: Fast ing Glucose result greater than or equal to 126 mg/dL suggests DIABETES MELLITUS per A.D.A. criteria. Performed By: #### L 501.4020, L300.8000, L300.3900, L300.4310, L100.0100, L500.2500 ####[facility] [address] [place], [address] Potassium [Moles/Vol] 4.0 mmol/L Normal 3.5-5.1 [facility] Comment on above: Order Comment: 'TROP ' Serial specimen #1, #2 or #3: 1 Performed By: #### L 501.4020, L300.8000, L300.3900, L300.4310, L100.0100, L500.2500 ####[facility] [address] [place], [address] Sodium [Moles/Vol] 140 mmol/L Normal 136-145 [facility] Comment on above: Order Comment: 'TROP ' Serial specimen #1, #2 or #3: 1 Performed By: #### L 501.4020, L300.8000, L300.3900, L300.4310, L100.0100, L500.2500 ####[facility] [address] [place], [address] Urea nitrogen [Mass/Vol] 17 mg/dL Normal 7-18 [facility] Comment on above: Order Comment: 'TROP ' Serial specimen #1, #2 or #3: 1 Performed By: #### L 501.4020, L300.8000, L300.3900, L300.4310, L100.0100, L500.2500 ####[facility] [address] [place], [address] Basophil percentageOrdered B y: Rupert Mensah on 06-11-2024 Basophils/100 WBC (Bld) 0.9 % 0-1 [facility] Blood urea nitrogen (BUN)/cr eatinine ratioOrdered By: Rupert Mensah on 06-11-2024 Urea nitrogen/Creatinine [Mass ratio] 18.9 mg/mg 10-20 [facility] CBC W/Diff, Automatedon 05-30 Absolute Lymph 1.29 X10 3/uL Normal 0.83-4.51 [facility] Comment on above: Performed By: #### L 501.4020, L300.8000, L300.3900, L300.4310, L100.0100, L500.2500 ####[facility] [address] [place], [address] Absolute Neut 3.8 X10 3/uL Normal 2.0-7.7 [facility] Comment on above: Performed By: #### L 501.4020, L300.8000, L300.3900, L300.4310, L100.0100, L500.2500 ####[facility] [address] [place], [address] Basophils/100 WBC (Bld) 0.9 % Normal 0-1 [facility] Comment on above: Performed By: #### L 501.4020, L300.8000, L300.3900, L300.4310, L100.0100, L500.2500 ####[facility] [address] [place], [address] Eosinophils/100 WBC (Bld) 4.6 % Normal 0-5 [facility] Comment on above: Performed By: #### L 501.4020, L300.8000, L300.3900, L300.4310, L100.0100, L500.2500 ####[facility] [address] [place], [address] Erythrocyte distribution width (RBC) [Ratio] 13.1 % Normal 11.6-14.6 [facility] Comment on above: Performed By: #### L 501.4020, L300.8000, L300.3900, L300.4310, L100.0100, L500.2500 ####[facility] [address] [place], [address] Hematocrit (Bld) [Volume fraction] 40.8 % Normal 37-47 [facility] Comment on above: Performed By: #### L 501.4020, L300.8000, L300.3900, L300.4310, L100.0100, L500.2500 ####[facility] [address] [place], [address] Hemoglobin (Bld) [Mass/Vol] 13.2 g/dL Normal 12.0-15.0 [facility] Comment on above: Performed By: #### L 501.4020, L300.8000, L300.3900, L300.4310, L100.0100, L500.2500 ####[facility] [address] [place], [address] IG% 0.200 Normal 0.0-0.9 [facility] Comment on above: Result Comment: IG% - Immature Granulocytes (promyelocytes, myelocytes and metamyelocytes) > 1% indicates that a LEFT SHIFT is Present. Performed By: #### L 501.4020, L300.8000, L300.3900, L300.4310, L100.0100, L500.2500 ####[facility] [address] [place], [address] Lymphocytes/100 WBC (Bld) 22.2 % Normal 19-41 [facility] Comment on above: Performed By: #### L 501.4020, L300.8000, L300.3900, L300.4310, L100.0100, L500.2500 ####[facility] [address] [place], [address] MCH (RBC) [Entitic mass] 28.8 pg Normal 27.0-32.0 [facility] Comment on above: Performed By: #### L 501.4020, L300.8000, L300.3900, L300.4310, L100.0100, L500.2500 ####[facility] [address] [place], [address] MCHC (RBC) [Mass/Vol] 32.4 g/dL Normal 32-36 [facility] Comment on above: Performed By: #### L 501.4020, L300.8000, L300.3900, L300.4310, L100.0100, L500.2500 ####[facility] [address] [place], [address] MCV (RBC) [Entitic vol] 88.9 fL Normal 81-99 [facility] Comment on above: Performed By: #### L 501.4020, L300.8000, L300.3900, L300.4310, L100.0100, L500.2500 ####[facility] [address] [place], [address] Monocytes/100 WBC (Bld) 6.4 % Normal 0-10 [facility] Comment on above: Performed By: #### L 501.4020, L300.8000, L300.3900, L300.4310, L100.0100, L500.2500 ####[facility] [address] [place], [address] Neutrophils/100 WBC (Bld) 65.7 % Normal 47-70 [facility] Comment on above: Performed By: #### L 501.4020, L300.8000, L300.3900, L300.4310, L100.0100, L500.2500 ####[facility] [address] [place], [address] Nucleated RBC (Bld) [#/Vol] 0 10*3/uL Normal 0-5 [facility] Comment on above: Performed By: #### L 501.4020, L300.8000, L300.3900, L300.4310, L100.0100, L500.2500 ####[facility] [address] [place], [address] Platelet mean volume (Bld) [Entitic vol] 10.0 fL Normal 6.2-12.0 [facility] Comment on above: Performed By: #### L 501.4020, L300.8000, L300.3900, L300.4310, L100.0100, L500.2500 ####[facility] [address] [place], [address] Platelets (Bld) [#/Vol] 270 10*3/uL Normal 150-450 [facility] Comment on above: Performed By: #### L 501.4020, L300.8000, L300.3900, L300.4310, L100.0100, L500.2500 ####[facility] [address] [place], [address] RBC (Bld) [#/Vol] 4.59 10*6/uL Normal 4.2-5.4 [facility] Comment on above: Performed By: #### L 501.4020, L300.8000, L300.3900, L300.4310, L100.0100, L500.2500 ####[facility] [address] [place], [address] RDW SD 42.4 fl Normal 35.1-43.9 [facility] Comment on above: Performed By: #### L 501.4020, L300.8000, L300.3900, L300.4310, L100.0100, L500.2500 ####[facility] [address] [place], [address] WBC (Bld) [#/Vol] 5.8 10*3/uL Normal 4.4-11.0 [facility] Comment on above: Performed By: #### L 501.4020, L300.8000, L300.3900, L300.4310, L100.0100, L500.2500 ####[facility] [address] [place], [address] Carbon dioxide measurementOr dered By: Rupert Maldonado 06-11-2024 CO2 [Moles/Vol] 23.0 mmol/L 21.0-32.0 [facility] Chest PA and Lateralon 06-[address] [facility] Imaging Services [address] [place] [address] Chest PA and Lateral MR#: [id number] Acct: [id number] Name: KAROLINA AHN Rep #: [id number] : 1965 F 59 From: Guanako Bryant PCP: Dr. Jimbo Dash MD Status: REG ER Study: Chest PA and Lateral Date of Exam: 06/11/24 Exam# [id number] Ordering Dr: Rupert Mensah DO PROCEDURE: CHEST [...] evidence of acute cardiopulmonary disease. Reading Location: [address] CC: Dr. Jimbo Dash MD; Dr. Rupert Mensah DO Environmental Compliance Officer: Signed Normal [facility] Chloride measurementOrdered By: Rupert Mensah on 06-11-2024 Chloride [Moles/Vol] 111 mmol/L High 98-[address] [facility] D-Dimer Quantitative (DVT/PE )on 06-11-2024 D-DIMER QUANT 0.37 FEU/ug/m Normal 0.27-0.49 [facility] Comment on above: Result Comment: NORM AL D-Dimer level (<0.50) indicates no DVT or PE. Performed By: #### L 501.4020, L300.8000, L300.3900, L300.4310, L100.0100, L500.2500 ####[facility] [address] [place], [address] D-dimer measurement for deep venous thrombosisOrdered By: Rupert Mensah on 06-11-2024 D-Dimer Quantitative (PE/DVT) 0.37 FEU/ug/m 0.27-0.49 [facility] Comment on above: NORMAL D-Dimer level (<0.50) indicates no DVT or PE. Emergency Department Summary on 06-11-2024 Emergency Department Summary [facility] Medical Records Department [address] [place] [address] Emergency Department Summary 06/11/24 MR#: [id number] Acct: [id number] Name: KAROLINA AHN Rep #: [id number] : 1965 59 From: Rupert Yeung PCP: [...] the past. No coronary disease history. Father [place] at 65, history of hyperlipidemia. Denies hypertension or diabetes. Denies tobacco. Denies recent travel or surgeries no history of PE or DVT. She reports her previous clots were unprovoked. Prior Similar Symptoms: No and With Prior [place] CVD Risk Factors: Positive for Hypercholesterolemia; Negative for Hypertension, Diabetes, Family History 1' PE Risk Factors: Negative for Recent Travel/Surgery, Recent Immobilization or Prior DVT or PE [facility] Medical History GERD (gastroesophageal reflux disease) Loss [...] normal respi (more content not included)... Normal [facility] Eosinophil percentageOrdered By: Rupert Mensah on 06-11-2024 Eosinophils/100 WBC (Bld) 4.6 % 0-5 [facility] Erythrocyte distribution wid th ratioOrdered By: Rupert Mensah on 06-11-2024 Erythrocyte distribution width (RBC) [Ratio] 13.1 % 11.6-14.6 [facility] Erythrocyte distribution wid th standard deviationOrdered By: Rupert Mensah on 06-11-2024 Erythrocyte distribution width (RBC) [Entitic vol] 42.4 fL 35.1-43.9 [facility] Estimated glomerular filtrat ion rate (GFR) AmericanOrdered By: Rupert Mensah on 06-11-2024 Estimated GFR (MDRD) Amer 82 mL/min >60 [facility] Comment on above: GFR Calc Estimation of creatinine natalie aranceOrdered By: Rupert Mensah on 06-11-2024 Estimated Creatinine Clearance Calc 60.56 ml/min [facility] Glomerular filtration rate ( GFR) estimationOrdered By: Rupert Mensah on 06-11-2024 Estimated GFR (MDRD) Non-Af Amer 68 mL/min >60 [facility] Comment on above: Non- GFR Calc Glucose measurementOrdered B y: Rupert Mensah on 06-11-2024 Glucose [Mass/Vol] 140 mg/dL High 74-106 [facility] Comment on above: Fasting Glucose resu lt greater than or equal to 126 mg/dL suggests DIABETES MELLITUS per A.D.A. criteria. Hematocrit Auto (Bld) [Volum e fraction]Ordered By: Rupert Mensah on 06-11-2024 Hematocrit (Bld) [Volume fraction] 40.8 % 37-47 [facility] Hemoglobin measurementOrdere d By: Rupert Mensah on 06-11-2024 Hemoglobin (Bld) [Mass/Vol] 13.2 g/dL 12.0-15.0 [facility] Immature granulocytes/100 WB C Auto (Bld)Ordered By: Rupert Mensah on 06-11-2024 Immature granulocytes/100 WBC (Bld) 0.200 % 0.0-0.9 [facility] Comment on above: IG% - Immature Granu locytes (promyelocytes, myelocytes and metamyelocytes) > 1% indicates that a LEFT SHIFT is Present. International normalized rat io (INR) calculationOrdered By: Rupert Mensah on 06-11-2024 INR Coag (Bld) [Relative time] 1.0 {INR} [facility] L501.4020on 06-11-2024 TROPONIN-I HS 4 pg/mL Normal 3.0-54.0 [facility] Comment on above: Order Comment: 'TROP ' Serial specimen #1, #2 or #3: 1 Result Comment: Plea se Note: New Test Units and Gender Specific Reference Ranges. For more information see Policy Stat Procedure [place] High Sensitivity Troponin (TNIH) and attachments. Performed By: #### L 501.4020, L300.8000, L300.3900, L300.4310, L100.0100, L500.2500 ####[facility] [address] [place], [address] Lymphocytes Auto (Unsp spec) [#/Vol]Ordered By: Rupert Mensah on 06-11-2024 Lymphocytes (Bld) [#/Vol] 1.29 10*3/uL 0.83-4.51 [facility] Lymphocytes/100 WBC Auto (Un sp spec)Ordered By: Rupert Mensah on 06-11-2024 Lymphocytes/100 WBC (Bld) 22.2 % 19-41 [facility] MCV (mean corpuscular volume ) determinationOrdered By: Rupert Mensah on 06-11-2024 MCV (RBC) [Entitic vol] 88.9 fL 81-99 [facility] Mean corpuscular hemoglobin (MCH) determinationOrdered By: Rupert Mensah on 06-11-2024 MCH (RBC) [Entitic mass] 28.8 pg 27.0-32.0 [facility] Mean corpuscular hemoglobin concentration (MCHC) determinationOrdered By: Rupert Mensah on 06-11-2024 MCHC (RBC) [Mass/Vol] 32.4 g/dL 32-36 [facility] Mean platelet volume determi nationOrdered By: Rupert Mensah on 06-11-2024 Platelet mean volume (Bld) [Entitic vol] 10.0 fL 6.2-12.0 [facility] Monocyte percentageOrdered B y: Rupert Mensah on 06-11-2024 Monocytes/100 WBC (Bld) 6.4 % 0-10 [facility] Neutrophil percentageOrdered By: Rupert Mensah on 06-11-2024 Neutrophils/100 WBC (Bld) 65.7 % 47-70 [facility] Nucleated red blood cell per centageOrdered By: Rupert Mensah on 06-11-2024 Nucleated RBC/100 WBC (Bld) [Ratio] 0 % 0-5 [facility] Partial Thromboplast Timeon 06-11-2024 aPTT Coag (Bld) [Time] 27.3 s Normal 24.1-36.2 [facility] Comment on above: Performed By: #### L 501.4020, L300.8000, L300.3900, L300.4310, L100.0100, L500.2500 ####[facility] [address] [place], [address] Platelet countOrdered By: Jose Mensah on 06-11-2024 Platelets (Bld) [#/Vol] 270 10*3/uL 150-450 [facility] Potassium measurementOrdered By: Rupert Mesnah on 06-11-2024 Potassium [Moles/Vol] 4.0 mmol/L 3.5-5.1 [facility] Prothrombin Time w/INRon INR Coag (PPP) [Relative time] 1.0 {INR} Normal [facility] Comment on above: Performed By: #### L 501.4020, L300.8000, L300.3900, L300.4310, L100.0100, L500.2500 ####[facility] [address] [place], [address] PT Coag (PPP) [Time] 13.1 s Normal 11.7-14.[address] [facility] Comment on above: Performed By: #### L 501.4020, L300.8000, L300.3900, L300.4310, L100.0100, L500.2500 ####[facility] [address] [place], [address] Prothrombin timeOrdered By: Rupert Mensah on 06-11-2024 PT Coag (PPP) [Time] 13.1 s 11.7-14.[address] [facility] RBC Auto (Bld) [#/Vol]Ordere d By: Rupert Mensah on 06-11-2024 RBC (Bld) [#/Vol] 4.59 10*6/uL 4.2-5.4 [facility] Serum anion gap measurementO rdered By: Rupert Mensah on 06-11-2024 Anion gap [Moles/Vol] 6 mmol/L 5-15 [facility] Serum or plasma calcium cooper urement (mass/volume)Ordered By: Rupert Mensah on 06-11-2024 Calcium [Mass/Vol] 8.9 mg/dL 8.5-10.1 [facility] Serum or plasma creatinine m easurement (mass/volume)Ordered By: Rupert Mensah on 06-11-2024 Creatinine [Mass/Vol] 0.90 mg/dL 0.55-1.02 [facility] Comment on above: The validity of the calculated GFR & GFRAA in patients over 70 years has not been determined. Clinical correlation is essential. Serum or plasma urea nitroge n measurement (mass/volume)Ordered By: Rupert Mensah on 06-11-2024 Urea nitrogen [Mass/Vol] 17 mg/dL 7-18 [facility] Sodium levelOrdered By: Rupert Mensah on 06-11-2024 Sodium [Moles/Vol] 140 mmol/L 136-145 [facility] Troponin IOrdered By: Rupert dhillon on 06-11-2024 Troponin I High Sensitivity 4 pg/mL 3.0-54.0 [facility] Comment on above: Please Note: New [place] t Units and Gender Specific Reference Ranges. For more information see Policy Stat Procedure [place] High Sensitivity Troponin (TNIH) and attachments. Venous Duplex US, Unilateral on 06-11-2024 Venous Duplex US, Unilateral [facility] Cardiovascular Services [address] [place] [address] Venous Duplex US, Unilateral 06/11/24 1500 MR#: [id number] Acct: [id number] Name: KAROLINA AHN Rep #: [id number] : 1965 59 From: Reji Goldberg MD [...] was called and/or faxed to [facility], RN. VL/Venous Duplex US, Unilateral Interpretation Summary [...] Dr. Jimbo Dash MD; Dr. Rupert Mensah, DO Date Dictated: 06/11/24 1500 Date Transcribed: 06/11/241546 Environmental Compliance Officer: Signed Normal [facility] White blood cell (WBC) count Ordered By: Rupert Mensah on 06-11-2024 WBC (Bld) [#/Vol] 5.8 10*3/uL 4.4-11.0 [facility] aPTT Coag (PPP) [Time]Ordere d By: Rupert Mensah on 06-11-2024 aPTT Coag (Bld) [Time] 27.3 s 24.1-36.2 [facility] Urine Cultureon 05-24-2024 [facility] Order Date: 02/19/24 Order Info: 630-4 - CUUR Mixed Gram Positive Organisms Devine Count 1000-10,000 MIXC Mixed contaminants. Submit a new specimen if indicated. Normal [facility] Comment on above: Performed By: #### M 100.2208 ####[facility] [address] [facility]. [place], [place], [address] Sacrum-Coccyx min 2 Viewson 05-21-2024 Sacrum-Coccyx min [address] [facility] Imaging Services [address] [place], [place] [address] Sacrum-Coccyx min 2 Views MR#: [id number] Acct: [id number] Name: KAROLINA AHN Rep #: [id number] : 1965 F 58 From: Jeff Reyes MD PCP: Dr. Jimbo Dash MD Status: REG CLI Study: Sacrum-Coccyx min 2 Views Date of Exam: Exam# [id number] Ordering Dr: Jimbo Dash MD [id number] STUDY: X-RAY - SACRUM/COCCYX REASON FOR EXAM: [...] 9:06 EST Reading Location ID and State: [facility] / [place] , Service support , CC: Dr. Jimbo Dash MD Environmental Compliance Officer: Signed Normal [facility] Urine cultureOrdered By: Laurie Dash on 05-21-2024 Bacteria identified Cx Nom (U) Positive Abnormal [facility] Abdomen/Pelvis W IV Cont ONL Yon 03-13-2024 Abdomen/Pelvis W IV Cont ONLY [facility] Imaging Services [address] [place], [place] [address] Abdomen/Pelvis W IV Cont ONLY MR#: [id number] Acct: [id number] Name: KAROLINA AHN Rep #: [id number] : 1965 F 58 From: Cliff Bryant PCP: Dr. Jimbo Dash MD Status: REG ER Study: Abdomen/Pelvis W IV Cont ONLY Date of Exam: Exam# [id number] Ordering Dr: Mp Torrez MD [id number] EXAM: CT ABDOMEN AND PELVIS WITH INTRAVENOUS [...] Mp Torrez MD; Dr. Jimbo Dash MD Environmental Compliance Officer: Signed Normal [facility] CBC W/Diff, Automatedon 02-27 Absolute Lymph 1.64 X10 3/uL Normal 0.83-4.51 [facility] Comment on above: Performed By: #### L 100.0100, L501.2450, L500.4050 ####[facility] [address] [place], [address] Absolute Neut 3.1 X10 3/uL Normal 2.0-7.7 [facility] Comment on above: Performed By: #### L 100.0100, L501.2450, L500.4050 ####[facility] [address] [place], [address] Basophils/100 WBC (Bld) 0.5 % Normal 0-1 [facility] Comment on above: Performed By: #### L 100.0100, L501.2450, L500.4050 ####[facility] [address] [place], [address] Eosinophils/100 WBC (Bld) 6.5 % High 0-5 [facility] Comment on above: Performed By: #### L 100.0100, L501.2450, L500.4050 ####[facility] [address] [place], [address] Erythrocyte distribution width (RBC) [Ratio] 13.7 % Normal 11.6-14.6 [facility] Comment on above: Performed By: #### L 100.0100, L501.2450, L500.4050 ####[facility] [address] [place], [address] Hematocrit (Bld) [Volume fraction] 40.7 % Normal 37-47 [facility] Comment on above: Performed By: #### L 100.0100, L501.2450, L500.4050 ####[facility] [address] [place], [address] Hemoglobin (Bld) [Mass/Vol] 12.9 g/dL Normal 12.0-15.0 [facility] Comment on above: Performed By: #### L 100.0100, L501.2450, L500.4050 ####[facility] [address] [place], [address] IG% 0.200 Normal 0.0-0.9 [facility] Comment on above: Result Comment: IG% - Immature Granulocytes (promyelocytes, myelocytes and metamyelocytes) > 1% indicates that a LEFT SHIFT is Present. Performed By: #### L 100.0100, L501.2450, L500.4050 ####[facility] [address] [place], [address] Lymphocytes/100 WBC (Bld) 29.5 % Normal 19-41 [facility] Comment on above: Performed By: #### L 100.0100, L501.2450, L500.4050 ####[facility] [address] [place], [address] MCH (RBC) [Entitic mass] 28.0 pg Normal 27.0-32.0 [facility] Comment on above: Performed By: #### L 100.0100, L501.2450, L500.4050 ####[facility] [address] [place], [address] MCHC (RBC) [Mass/Vol] 31.7 g/dL Low 32-36 [facility] Comment on above: Performed By: #### L 100.0100, L501.2450, L500.4050 ####[facility] [address] [place], [address] MCV (RBC) [Entitic vol] 88.3 fL Normal 81-99 [facility] Comment on above: Performed By: #### L 100.0100, L501.2450, L500.4050 ####[facility] [address] [place], [address] Monocytes/100 WBC (Bld) 7.2 % Normal 0-10 [facility] Comment on above: Performed By: #### L 100.0100, L501.2450, L500.4050 ####[facility] [address] [place], [address] Neutrophils/100 WBC (Bld) 56.1 % Normal 47-70 [facility] Comment on above: Performed By: #### L 100.0100, L501.2450, L500.4050 ####[facility] [address] [place], [address] Nucleated RBC (Bld) [#/Vol] 0 10*3/uL Normal 0-5 [facility] Comment on above: Performed By: #### L 100.0100, L501.2450, L500.4050 ####[facility] [address] [place], [address] Platelet mean volume (Bld) [Entitic vol] 9.9 fL Normal 6.2-12.0 [facility] Comment on above: Performed By: #### L 100.0100, L501.2450, L500.4050 ####[facility] [address] [place], [address] Platelets (Bld) [#/Vol] 256 10*3/uL Normal 150-450 [facility] Comment on above: Performed By: #### L 100.0100, L501.2450, L500.4050 ####[facility] [address] [place], [address] RBC (Bld) [#/Vol] 4.61 10*6/uL Normal 4.2-5.4 [facility] Comment on above: Performed By: #### L 100.0100, L501.2450, L500.4050 ####[facility] [address] [place], [address] RDW SD 44.2 fl High 35.1-43.9 [facility] Comment on above: Performed By: #### L 100.0100, L501.2450, L500.4050 ####[facility] [address] [place], [address] WBC (Bld) [#/Vol] 5.6 10*3/uL Normal 4.4-11.0 [facility] Comment on above: Performed By: #### L 100.0100, L501.2450, L500.4050 ####[facility] [address] [place], [address] Comprehensive Metabolic [facility] 03-13-2024 Albumin [Mass/Vol] 3.6 g/dL Normal 3.2-5.0 [facility] Comment on above: Performed By: #### L 100.0100, L501.2450, L500.4050 ####[facility] [address] [place], [address] Albumin/Globulin [Mass ratio] 1.0 {ratio} Normal 0.9-2.4 [facility] Comment on above: Performed By: #### L 100.0100, L501.2450, L500.4050 ####[facility] [address] [place], [address] ALK P 131 U/L High 45-117 [facility] Comment on above: Performed By: #### L 100.0100, L501.2450, L500.4050 ####[facility] [address] [place], [address] ALT [Catalytic activity/Vol] 31 U/L Normal 13-56 [facility] Comment on above: Performed By: #### L 100.0100, L501.2450, L500.4050 ####[facility] [address] [place], [address] AST [Catalytic activity/Vol] 19 U/L Normal 15-37 [facility] Comment on above: Performed By: #### L 100.0100, L501.2450, L500.4050 ####[facility] [address] [place], [address] Bilirubin [Mass/Vol] 0.30 mg/dL Normal 0.20-1.[address] [facility] Comment on above: Result Comment: For patients on eltrombopag therapy, use of Dimension [place] TBIL is not recommended. Performed By: #### L 100.0100, L501.2450, L500.4050 ####[facility] [address] [place], [address] BUN/CRE 22.1 RATIO High 10-20 [facility] Comment on above: Performed By: #### L 100.0100, L501.2450, L500.4050 ####[facility] [address] [place], [address] CA,Total 9.2 mg/dL Normal 8.5-10.1 [facility] Comment on above: Performed By: #### L 100.0100, L501.2450, L500.4050 ####[facility] [address] [place], [address] Chloride [Moles/Vol] 108 mmol/L High 98-[address] [facility] Comment on above: Performed By: #### L 100.0100, L501.2450, L500.4050 ####[facility] [address] [place], [address] CO2 [Moles/Vol] 28.0 mmol/L Normal 21.0-32.0 [facility] Comment on above: Performed By: #### L 100.0100, L501.2450, L500.4050 ####[facility] [address] [place], [address] Creatinine [Mass/Vol] 1.00 mg/dL Normal 0.55-1.02 [facility] Comment on above: Result Comment: The validity of the calculated GFR GFRAA in patients over 70 years has not been determined. Clinical correlation is essential. Performed By: #### L 100.0100, L501.2450, L500.4050 ####[facility] [address] [place], [address] ECRCL 57.34 ml/min Normal [facility] Comment on above: Performed By: #### L 100.0100, L501.2450, L500.4050 ####[facility] [address] [place], [address] EST GFR - AA 73 mL/min Normal >60 [facility] Comment on above: Result Comment: Afri can [place] GFR Calc Performed By: #### L 100.0100, L501.2450, L500.4050 ####[facility] [address] [place], [address] GAP 3 Low 5-15 [facility] Comment on above: Performed By: #### L 100.0100, L501.2450, L500.4050 ####[facility] [address] [place], [address] GFR/1.73 sq M.predicted among non-blacks MDRD (S/P/Bld) [Vol rate/Area] 61 mL/min/{1.73_m2} Normal >60 [facility] Comment on above: Result Comment: Non- GFR Calc Performed By: #### L 100.0100, L501.2450, L500.4050 ####[facility] [address] [place], [address] Globulin (S) [Mass/Vol] 3.6 g/dL Normal 2.2-4.2 [facility] Comment on above: Performed By: #### L 100.0100, L501.2450, L500.4050 ####[facility] [address] [place], [address] Glucose [Mass/Vol] 108 mg/dL High 74-106 [facility] Comment on above: Result Comment: Fast ing Glucose result from 100 to 125 mg/dL suggests IMPAIRED HOMEOSTASIS per A.D.A. criteria. Performed By: #### L 100.0100, L501.2450, L500.4050 ####[facility] [address] [place], [address] Potassium [Moles/Vol] 3.8 mmol/L Normal 3.5-5.1 [facility] Comment on above: Performed By: #### L 100.0100, L501.2450, L500.4050 ####[facility] [address] [place], [address] Sodium [Moles/Vol] 139 mmol/L Normal 136-145 [facility] Comment on above: Performed By: #### L 100.0100, L501.2450, L500.4050 ####[facility] [address] [place], [address] T PROT 7.2 g/dL Normal 6.4-8.2 [facility] Comment on above: Performed By: #### L 100.0100, L501.2450, L500.4050 ####[facility] [address] [place] [place], [address] Urea nitrogen [Mass/Vol] 22 mg/dL High 7-18 [facility] Comment on above: Performed By: #### L 100.0100, L501.2450, L500.4050 ####[facility] [address] [place], [address] Emergency Department Summary on 03-13-2024 Emergency Department Summary [facility] Medical Records Department [address] [place] [address] Emergency Department Summary 03/13/24 MR#: [id number] Acct: [id number] Name: KAROLINA AHN Rep #: [id number] : 1965 58 From: Mp Torrez MD [...] Const Vi (more content not included)... Normal [facility] Lipaseon 03-13-2024 Lipase [Catalytic activity/Vol] 54 U/L Normal 13-75 [facility] Comment on above: Result Comment: Pramod grande note: LIPASE revised reference range effective 22. New Lipase methodology. Expected to produce lower values than the previous assay method. NEW Reference Range: 13 - 75 U/L Performed By: #### L 100.0100, L501.2450, L500.4050 ####[facility] [address] [place], [address] Urinalysis, Completeon 03-13 EPI,SQUAMOUS 0-5 SEEN Normal 5-10 [facility] Comment on above: Order Comment: CLEAN CATCH Performed By: #### L 400.0001 #### [facility] Laboratory [address] [place], [address] EPI,TRANSITION 0-5 SEEN Normal 0-5 [facility] Comment on above: Order Comment: CLEAN CATCH Performed By: #### L 400.0001 #### [facility] Laboratory [address] [place], [address] WBC 0-5 SEEN Normal 0-5 [facility] Comment on above: Order Comment: CLEAN CATCH Performed By: #### L 400.0001 #### [facility] [address] [place], [address] BACTERIA 0 SEEN Normal None Seen [facility] Comment on above: Order Comment: CLEAN CATCH Performed By: #### L 400.0001 #### [facility] [address] [place], [address] Mucus Ql (Urine sed) [address] [facility] Comment on above: Order Comment: CLEAN CATCH Performed By: #### L 400.0001 #### [facility] [address] [place], [address] RBC 0 SEEN Normal 0-5 [facility] Comment on above: Order Comment: CLEAN CATCH Performed By: #### L 400.0001 #### [facility] [address] [place], [address] Basophil percentageOrdered B y: Jimbo Dash on 06-10-2023 Bilirubin [Mass/Vol] 0.60 mg/dL 0.20-1.[address] [facility] Comment on above: For patients on eltr ombopag therapy, use of Dimension [place] TBIL is not recommended. Chloride [Moles/Vol] 109 mmol/L 98-[address] [facility] Cholesterol [Mass/Vol] 234 mg/dL <200 [facility] Comment on above: <200 mg/dL Desirable 200-240 mg/dL Borderline >240 mg/dL High Risk Glucose [Mass/Vol] 88 mg/dL 74-106 [facility] Potassium [Moles/Vol] 4.3 mmol/L 3.5-5.1 [facility] Protein [Mass/Vol] 7.2 g/dL 6.4-8.2 [facility] Sodium [Moles/Vol] 140 mmol/L 136-145 [facility] Triglyceride [Mass/Vol] 127 mg/dL <199 [facility] Comment on above: The drugs N-Acetylcy steine and Metamizole may falsely depress this assay.Serum Triglycerides Reference Interval Normal <150 mg/dL Borderline high 150 - 199 mg/dL High 200 - 499 mg/dL Very High > or = 500 mg/dL Laboratory - Chemistry and C hemistry - challengeOrdered By: Jimbo Dash on 06-10-2023 Albumin/Globulin [Mass ratio] 1.1 {ratio} 0.9-2.4 [facility] ALP [Catalytic activity/Vol] 130 U/L 45-117 [facility] ALT [Catalytic activity/Vol] 34 U/L 13-56 [facility] Cholesterol in HDL [Mass/Vol] 65 mg/dL >40 [facility] Comment on above: The drugs N-Acetylcy steine and Metamizole may falsely depress this assay. Reference Range HDL <40 mg/dL Low HDL Cholesterol HDL >or= 60 mg/dL High HDL Cholesterol Cholesterol in LDL [Mass/Vol] 144 mg/dL 0-130 [facility] CO2 [Moles/Vol] 27.0 mmol/L 21.0-32.0 [facility] Globulin (S) [Mass/Vol] 3.5 g/dL 2.2-4.2 [facility] Urea nitrogen/Creatinine [Mass ratio] 33.2 mg/mg 10-20 [facility] No Panel InformationOrdered By: Jimbo Dash on 06-10-2023 Estimated GFR (MDRD) Amer 86 mL/min >60 [facility] Comment on above: GFR Calc Estimated GFR (MDRD) Non-Af Amer 71 mL/min >60 [facility] Comment on above: Non- GFR Calc VLDL Cholesterol 25 mg/dL 5-40 [facility] Serum or plasma calcium cooper urement (mass/volume)Ordered By: Jimbo Dash on 06-10-2023 Calcium [Mass/Vol] 9.2 mg/dL 8.5-10.1 [facility] Serum or plasma creatinine m easurement (mass/volume)Ordered By: Jimbo Dash on 06-10-2023 Creatinine [Mass/Vol] 0.87 mg/dL 0.55-1.02 [facility] Comment on above: The validity of the calculated GFR & GFRAA in patients over 70 years has not been determined. Clinical correlation is essential. Serum or plasma urea nitroge n measurement (mass/volume)Ordered By: Jimbo Dash on 06-10-2023 Urea nitrogen [Mass/Vol] 29 mg/dL 7-18 [facility] Thin prep Papanicolaou smear with manual screeningOrdered By: Jimbo Dash on 06-10-2023 Thin prep Papanicolaou smear with manual screening 3.7 g/dL 3.2-5.0 [facility] Thin prep Papanicolaou smear with manual screening 18 U/L 15-37 [facility] Thin prep Papanicolaou smear with manual screening 4 5-15 [facility] Laboratory - Microbiology an d Antimicrobial susceptibilityon 05-09-2023 SARS-CoV-2 (COVID-19) RNA SIRIA+probe Ql (Unsp spec) Not detected [facility] No Panel Informationon 05-09 Influenza Types A,B Rapid (Clinic) Not detected [facility] Absolute lymphocyte countOrd ered By: HEALTH ASSESSMENT on 02-01-2023 Lymphocytes Auto (Unsp spec) [#/Vol] 1.32 10*3/uL 0.83-4.51 [facility] Absolute reticulocyte countO rdered By: HEALTH ASSESSMENT on 02-01-2023 Reticulocytes (Bld) [#/Vol] 0.00 10*3/uL 0-5 [facility] Basophil percentageOrdered B y: HEALTH ASSESSMENT on 02-01-2023 Basophil percentage 3.2 mg/dL 2.5-4.9 [facility] Bilirubin [Mass/Vol] 0.50 mg/dL 0.20-1.[address] [facility] Comment on above: For patients on eltr ombopag therapy, use of Dimension [place] TBIL is not recommended. Chloride [Moles/Vol] 107 mmol/L 98-[address] [facility] Cholesterol [Mass/Vol] 267 mg/dL <200 [facility] Comment on above: <200 mg/dL Desirable 200-240 mg/dL Borderline >240 mg/dL High Risk Glucose [Mass/Vol] 85 mg/dL 74-106 [facility] LDH [Catalytic activity/Vol] 173 U/L 84-246 [facility] Neutrophils (Bld) [#/Vol] 3.1 10*3/uL 2.0-7.7 [facility] Potassium [Moles/Vol] 3.7 mmol/L 3.5-5.1 [facility] Protein [Mass/Vol] 6.9 g/dL 6.4-8.2 [facility] Sodium [Moles/Vol] 140 mmol/L 136-145 [facility] Triglyceride [Mass/Vol] 284 mg/dL <199 [facility] Comment on above: The drugs N-Acetylcy steine and Metamizole may falsely depress this assay.Serum Triglycerides Reference Interval Normal <150 mg/dL Borderline high 150 - 199 mg/dL High 200 - 499 mg/dL Very High > or = 500 mg/dL WBC (Bld) [#/Vol] 5.2 10*3/uL 4.4-11.0 [facility] Bilirubin Test strip Ql (U)O rdered By: HEALTH ASSESSMENT on 02-01-2023 Bilirubin Ql (U) Negative Negative [facility] Blood erythrocytes count (nu mber/volume)Ordered By: HEALTH ASSESSMENT on 02-01-2023 RBC (Bld) [#/Vol] 4.85 10*6/uL 4.2-5.4 [facility] Blood hemoglobin measurement (mass/volume)Ordered By: HEALTH ASSESSMENT on 02-01-2023 Hemoglobin (Bld) [Mass/Vol] 14.2 g/dL 12.0-15.0 [facility] Blood platelet mean volumeOr dered By: HEALTH ASSESSMENT on 02-01-2023 Platelet mean volume (Bld) [Entitic vol] 10.1 fL 6.2-12.0 [facility] Determination of erythrocyte mean corpuscular volume (MCV)Ordered By: HEALTH ASSESSMENT on 02-01-2023 MCV (RBC) [Entitic vol] 90.5 fL 81-99 [facility] Direct bilirubinOrdered By: HEALTH ASSESSMENT on 02-01-2023 Bilirubin.direct [Mass/Vol] 0.11 mg/dL 0.00-0.30 [facility] Hematocrit Auto (Bld) [Volum e fraction]Ordered By: HEALTH ASSESSMENT on 02-01-2023 Hematocrit (Bld) [Volume fraction] 43.9 % 37-47 [facility] Ketones Test strip Ql (U)Ord ered By: HEALTH ASSESSMENT on 02-01-2023 Ketones Ql (U) Negative Negative [facility] Laboratory - Chemistry and C hemistry - challengeOrdered By: HEALTH ASSESSMENT on 02-01-2023 ALP [Catalytic activity/Vol] 131 U/L 45-117 [facility] ALT [Catalytic activity/Vol] 41 U/L 13-56 [facility] Cholesterol.total/Kayla sterol in HDL [Mass ratio] 4.00 {ratio} [facility] CO2 [Moles/Vol] 31.0 mmol/L 21.0-32.0 [facility] Globulin (S) [Mass/Vol] 3.4 g/dL 2.2-4.2 [facility] Urea nitrogen/Creatinine [Mass ratio] 19.7 mg/mg 10-20 [facility] Laboratory - Hematology and Cell countsOrdered By: HEALTH ASSESSMENT on 02-01-2023 Erythrocyte distribution width (RBC) [Entitic vol] 42.2 fL 35.1-43.9 [facility] Erythrocyte distribution width (RBC) [Ratio] 12.8 % 11.6-14.6 [facility] MCH (RBC) [Entitic mass] 29.3 pg 27.0-32.0 [facility] Nucleated RBC/100 WBC (Bld) [Ratio] 0 % 0-5 [facility] MCHC Auto (RBC) [Mass/Vol]Or dered By: HEALTH ASSESSMENT on 02-01-2023 MCHC (RBC) [Mass/Vol] 32.3 g/dL 32-36 [facility] Nitrite Test strip Ql (U)Ord ered By: HEALTH ASSESSMENT on 02-01-2023 Nitrite Ql (U) Negative Negative [facility] No Panel InformationOrdered By: HEALTH ASSESSMENT on 02-01-2023 Estimated GFR (MDRD) Amer 87 mL/min >60 [facility] Comment on above: GFR Calc Estimated GFR (MDRD) Non-Af Amer 72 mL/min >60 [facility] Comment on above: Non- GFR Calc Platelets bldOrdered By: HEA LTH ASSESSMENT on 02-01-2023 Platelets (Bld) [#/Vol] 237 10*3/uL 150-450 [facility] Protein Test strip Ql (U)Ord ered By: HEALTH ASSESSMENT on 02-01-2023 Protein Ql (U) Negative Negative [facility] Segmented neutrophils/100 WB C Auto (Bld)Ordered By: HEALTH ASSESSMENT on 02-01-2023 Segmented neutrophils/100 WBC (Bld) 60.4 % 47-70 [facility] Serum or plasma albumin cooper urement (mass/volume)Ordered By: HEALTH ASSESSMENT on 02-01-2023 Albumin [Mass/Vol] 3.5 g/dL 3.2-5.0 [facility] Serum or plasma albumin/glob ulin mass ratioOrdered By: HEALTH ASSESSMENT on 02-01-2023 Albumin/Globulin [Mass ratio] 1.0 {ratio} 0.9-2.4 [facility] Serum or plasma calcium cooper urement (mass/volume)Ordered By: HEALTH ASSESSMENT on 02-01-2023 Calcium [Mass/Vol] 8.9 mg/dL 8.5-10.1 [facility] Serum or plasma cholesterol in HDL measurement (mass/volume)Ordered By: HEALTH ASSESSMENT on 02-01-2023 Cholesterol in HDL [Mass/Vol] 67 mg/dL >40 [facility] Comment on above: The drugs N-Acetylcy steine and Metamizole may falsely depress this assay. Reference Range HDL <40 mg/dL Low HDL Cholesterol HDL >or= 60 mg/dL High HDL Cholesterol Serum or plasma cholesterol in VLDL measurement (mass/volume)Ordered By: HEALTH ASSESSMENT on 02-01-2023 Cholesterol in VLDL [Mass/Vol] 57 mg/dL 5-40 [facility] Serum or plasma creatinine m easurement (mass/volume)Ordered By: HEALTH ASSESSMENT on 02-01-2023 Creatinine [Mass/Vol] 0.86 mg/dL 0.55-1.02 [facility] Comment on above: The validity of the calculated GFR & GFRAA in patients over 70 years has not been determined. Clinical correlation is essential. Serum or plasma low density lipoprotein (LDL) cholesterol measurement (mass/volume)Ordered By: HEALTH ASSESSMENT on 02-01-2023 Cholesterol in LDL [Mass/Vol] 143 mg/dL 0-130 [facility] Serum or plasma urea nitroge n measurement (mass/volume)Ordered By: HEALTH ASSESSMENT on 02-01-2023 Urea nitrogen [Mass/Vol] 17 mg/dL 7-18 [facility] Serum or plasma uric acid me asurement (mass/volume)Ordered By: HEALTH ASSESSMENT on 02-01-2023 Urate [Mass/Vol] 3.1 mg/dL 2.6-6.0 [facility] Comment on above: The drugs N-Acetylcy steine and Metamizole may falsely depress this assay. Thin prep Papanicolaou smear with manual screeningOrdered By: HEALTH ASSESSMENT on 02-01-2023 Thin prep Papanicolaou smear with manual screening 21 U/L 15-37 [facility] Thin prep Papanicolaou smear with manual screening 2 5-15 [facility] Urine blood detectionOrdered By: HEALTH ASSESSMENT on 02-01-2023 RBC Ql (U) 10 /ul Negative [facility] Urine clarityOrdered By: HEA LTH ASSESSMENT on 02-01-2023 Clarity (U) Clear Clear [facility] Urine color determinationOrd ered By: HEALTH ASSESSMENT on 02-01-2023 Color (U) Yellow Yellow [facility] Urine glucose detectionOrder ed By: HEALTH ASSESSMENT on 02-01-2023 Glucose Ql (U) Normal mg/dl Normal [facility] Urine leukocyte esterase det ection by dipstickOrdered By: HEALTH ASSESSMENT on 02-01-2023 Leukocyte esterase Test strip Ql (U) 100 /ul Negative [facility] Urine pHOrdered By: HEALTH A SSESSMENT on 02-01-2023 pH (U) 5.0 [pH] 5.0 - 8.0 [facility] Urine specific gravity measu rementOrdered By: HEALTH ASSESSMENT on 02-01-2023 Specific gravity (U) [Rel density] 1.015 1.002-1.030 [facility] Urobilinogen Auto test strip Ql (U)Ordered By: HEALTH ASSESSMENT on 02-01-2023 Urobilinogen Ql (U) Normal mg/dl Normal [facility] Basophil percentageOrdered B y: Jimbo Dash on 11-05-2022 Cholesterol [Mass/Vol] 194 mg/dL <200 [facility] Comment on above: <200 mg/dL Desirable 200-240 mg/dL Borderline >240 mg/dL High Risk Triglyceride [Mass/Vol] 205 mg/dL <199 [facility] Comment on above: The drugs N-Acetylcy steine and Metamizole may falsely depress this assay.Serum Triglycerides Reference Interval Normal <150 mg/dL Borderline high 150 - 199 mg/dL High 200 - 499 mg/dL Very High > or = 500 mg/dL Serum or plasma cholesterol in HDL measurement (mass/volume)Ordered By: Jimbo Dash on 11-05-2022 Cholesterol in HDL [Mass/Vol] 68 mg/dL >40 [facility] Comment on above: The drugs N-Acetylcy steine and Metamizole may falsely depress this assay. Reference Range HDL <40 mg/dL Low HDL Cholesterol HDL >or= 60 mg/dL High HDL Cholesterol Serum or plasma cholesterol in VLDL measurement (mass/volume)Ordered By: Jimbo Dash on 11-05-2022 Cholesterol in VLDL [Mass/Vol] 41 mg/dL 5-40 [facility] Serum or plasma low density lipoprotein (LDL) cholesterol measurement (mass/volume)Ordered By: Jimbo Dash on 11-05-2022 Cholesterol in LDL [Mass/Vol] 85 mg/dL 0-130 [facility] Absolute lymphocyte countOrd ered By: Dr. Goldberg on 10-03-2022 Lymphocytes Auto (Unsp spec) [#/Vol] 1.63 10*3/uL 0.83-4.51 [facility] Basophil percentageOrdered B y: Dr. Goldberg on 10-03-2022 Basophils/100 WBC (Bld) 1.0 % 0-1 [facility] Chloride [Moles/Vol] 111 mmol/L 98-[address] [facility] Eosinophils/100 WBC (Bld) 8.1 % 0-5 [facility] Glucose [Mass/Vol] 93 mg/dL 74-106 [facility] Neutrophils (Bld) [#/Vol] 2.6 10*3/uL 2.0-7.7 [facility] Neutrophils/100 WBC (Bld) 50.2 % 47-70 [facility] Potassium [Moles/Vol] 4.2 mmol/L 3.5-5.1 [facility] Sodium [Moles/Vol] 141 mmol/L 136-145 [facility] WBC (Bld) [#/Vol] 5.2 10*3/uL 4.4-11.0 [facility] Blood erythrocytes count (nu mber/volume)Ordered By: Dr. Goldberg on 10-03-2022 RBC (Bld) [#/Vol] 4.85 10*6/uL 4.2-5.4 [facility] Blood hemoglobin measurement (mass/volume)Ordered By: Dr. Goldberg on 10-03-2022 Hemoglobin (Bld) [Mass/Vol] 14.3 g/dL 12.0-15.0 [facility] Blood lymphocytes/100 leukoc ytesOrdered By: Dr. Goldberg on 10-03-2022 Lymphocytes/100 WBC (Bld) 31.4 % 19-41 [facility] Blood monocytes/100 leukocyt esOrdered By: Dr. Goldberg on 10-03-2022 Monocytes/100 WBC (Bld) 8.7 % 0-10 [facility] Blood platelet mean volumeOr dered By: Dr. Goldberg on 10-03-2022 Platelet mean volume (Bld) [Entitic vol] 9.5 fL 6.2-12.0 [facility] Determination of erythrocyte mean corpuscular volume (MCV)Ordered By: Dr. Goldberg on 10-03-2022 MCV (RBC) [Entitic vol] 92.6 fL 81-99 [facility] Hematocrit Auto (Bld) [Volum e fraction]Ordered By: Dr. Goldberg on 10-03-2022 Hematocrit (Bld) [Volume fraction] 44.9 % 37-47 [facility] Laboratory - Chemistry and C hemistry - challengeOrdered By: Dr. Goldberg on 10-03-2022 CO2 [Moles/Vol] 29.0 mmol/L 21.0-32.0 [facility] Urea nitrogen/Creatinine [Mass ratio] 20.2 mg/mg 10-20 [facility] Laboratory - Hematology and Cell countsOrdered By: Dr. Goldberg on 10-03-2022 Erythrocyte distribution width (RBC) [Entitic vol] 43.6 fL 35.1-43.9 [facility] Erythrocyte distribution width (RBC) [Ratio] 12.9 % 11.6-14.6 [facility] Immature granulocytes/100 WBC (Bld) 0.600 % 0.0-0.9 [facility] Comment on above: IG% - Immature Granu locytes (promyelocytes, myelocytes and metamyelocytes) > 1% indicates that a LEFT SHIFT is Present. MCH (RBC) [Entitic mass] 29.5 pg 27.0-32.0 [facility] Nucleated RBC/100 WBC (Bld) [Ratio] 0 % 0-5 [facility] Auto (RBC) [Mass/Vol]Or dered By: Dr. Goldberg on 10-03-2022 MCHC (RBC) [Mass/Vol] 31.8 g/dL 32-36 [facility] No Panel InformationOrdered By: Dr. Goldberg on 10-03-2022 Activated Clotting Time 197 sec 74-137 [facility] Estimated Creatinine Clearance Calc 57.69 ml/min [facility] Estimated GFR (MDRD) Amer 84 mL/min >60 [facility] Comment on above: GFR Calc Estimated GFR (MDRD) Non-Af Amer 70 mL/min >60 [facility] Comment on above: Non- GFR Calc Platelets bldOrdered By: Dr. Goldberg on 10-03-2022 Platelets (Bld) [#/Vol] 221 10*3/uL 150-450 [facility] Serum or plasma calcium cooper urement (mass/volume)Ordered By: Dr. oGldberg on 10-03-2022 Calcium [Mass/Vol] 9.2 mg/dL 8.5-10.1 [facility] Serum or plasma creatinine m easurement (mass/volume)Ordered By: Dr. Goldberg on 10-03-2022 Creatinine [Mass/Vol] 0.89 mg/dL 0.55-1.02 [facility] Comment on above: The validity of the calculated GFR & GFRAA in patients over 70 years has not been determined. Clinical correlation is essential. Serum or plasma urea nitroge n measurement (mass/volume)Ordered By: Dr. Goldberg on 10-03-2022 Urea nitrogen [Mass/Vol] 18 mg/dL 7-18 [facility] Thin prep Papanicolaou smear with manual screeningOrdered By: Dr. Goldberg on 10-03-2022 Thin prep Papanicolaou smear with manual screening 1 5-15 [facility] Basophil percentageOrdered B y: Dr. Dash on 08-01-2022 Bilirubin [Mass/Vol] 0.40 mg/dL 0.20-1.[address] [facility] Comment on above: For patients on eltr ombopag therapy, use of Dimension [place] TBIL is not recommended. Chloride [Moles/Vol] 109 mmol/L 98-[address] [facility] Cholesterol [Mass/Vol] 251 mg/dL <200 [facility] Comment on above: <200 mg/dL Desirable 200-240 mg/dL Borderline >240 mg/dL High Risk Glucose [Mass/Vol] 83 mg/dL 74-106 [facility] Potassium [Moles/Vol] 4.0 mmol/L 3.5-5.1 [facility] Protein [Mass/Vol] 7.0 g/dL 6.4-8.2 [facility] Sodium [Moles/Vol] 140 mmol/L 136-145 [facility] Triglyceride [Mass/Vol] 134 mg/dL <199 [facility] Comment on above: The drugs N-Acetylcy steine and Metamizole may falsely depress this assay.Serum Triglycerides Reference Interval Normal <150 mg/dL Borderline high 150 - 199 mg/dL High 200 - 499 mg/dL Very High > or = 500 mg/dL Laboratory - Chemistry and C hemistry - challengeOrdered By: Dr. Dash on 08-01-2022 ALP [Catalytic activity/Vol] 130 U/L 45-117 [facility] ALT [Catalytic activity/Vol] 33 U/L 13-56 [facility] CO2 [Moles/Vol] 25.0 mmol/L 21.0-32.0 [facility] Globulin (S) [Mass/Vol] 3.3 g/dL 2.2-4.2 [facility] Urea nitrogen/Creatinine [Mass ratio] 20.0 mg/mg 10-20 [facility] No Panel InformationOrdered By: Dr. Dash on 08-01-2022 Estimated GFR (MDRD) Amer 83 mL/min >60 [facility] Comment on above: GFR Calc Estimated GFR (MDRD) Non-Af Amer 69 mL/min >60 [facility] Comment on above: Non- GFR Calc Serum or plasma albumin cooper urement (mass/volume)Ordered By: Dr. Dash on 08-01-2022 Albumin [Mass/Vol] 3.7 g/dL 3.2-5.0 [facility] Serum or plasma albumin/glob ulin mass ratioOrdered By: Dr. Dash on 08-01-2022 Albumin/Globulin [Mass ratio] 1.1 {ratio} 0.9-2.4 [facility] Serum or plasma calcium cooper urement (mass/volume)Ordered By: Dr. Dash on 08-01-2022 Calcium [Mass/Vol] 9.3 mg/dL 8.5-10.1 [facility] Serum or plasma cholesterol in HDL measurement (mass/volume)Ordered By: Dr. Dash on 08-01-2022 Cholesterol in HDL [Mass/Vol] 66 mg/dL >40 [facility] Comment on above: The drugs N-Acetylcy steine and Metamizole may falsely depress this assay. Reference Range HDL <40 mg/dL Low HDL Cholesterol HDL >or= 60 mg/dL High HDL Cholesterol Serum or plasma cholesterol in VLDL measurement (mass/volume)Ordered By: Dr. Dash on 08-01-2022 Cholesterol in VLDL [Mass/Vol] 27 mg/dL 5-40 [facility] Serum or plasma creatinine m easurement (mass/volume)Ordered By: Dr. Dash on 08-01-2022 Creatinine [Mass/Vol] 0.90 mg/dL 0.55-1.02 [facility] Comment on above: The validity of the calculated GFR & GFRAA in patients over 70 years has not been determined. Clinical correlation is essential. Serum or plasma low density lipoprotein (LDL) cholesterol measurement (mass/volume)Ordered By: Dr. Dash on 08-01-2022 Cholesterol in LDL [Mass/Vol] 158 mg/dL 0-130 [facility] Serum or plasma urea nitroge n measurement (mass/volume)Ordered By: Dr. Dash on 08-01-2022 Urea nitrogen [Mass/Vol] 18 mg/dL 7-18 [facility] Thin prep Papanicolaou smear with manual screeningOrdered By: Dr. Dash on 08-01-2022 Thin prep Papanicolaou smear with manual screening 21 U/L 15-37 [facility] Thin prep Papanicolaou smear with manual screening 6 5-15 [facility] Calcium oxalate dihydrate cr ystals detection in stone by infrared spectroscopyOrdered By: Dr. Nicole on 02-15-2022 Calcium oxalate dihydrate crystals Infrared spectroscopy Ql (Stone) 30 % [facility] Color of specimen determinat ionOrdered By: Dr. Nicole on 02-15-2022 Color (Unsp spec) KOEHLER [facility] Laboratory - Miscellaneous t estsOrdered By: Dr. Nicole on 02-15-2022 Service comment (Unsp spec) [Interp] See comment [facility] Comment on above: Calculus received we t. Wet calculi must be dried beforeanalysis, which delays reporting of results. Leaving calculiwet (such as water, saline, blood, urine) may lead tochanges in composition. Physician questions regarding Calculi Analysis [facility] at: [phone]. Calculi report will follow via computer, mail or courierdelivery. Measurement of weight of sto neOrdered By: Dr. Nicole on 02-15-2022 Weight (Stone) 41 mg [facility] No Panel InformationOrdered By: Dr. Nicole on 02-15-2022 Stone Analysis (T) See comment [facility] Comment on above: Percentage (Represen ts the % composition) Stone Calcium Oxalate Monohydrate 70 % [facility] Origin of StoneOrdered By: Annette Nicole on 02-15-2022 Origin Nom (Stone) URINARY BLADDER [facility] Size of stoneOrdered By: Dr. Nicole on 02-15-2022 Size (Stone) [Entitic vol] 3x3 mm [facility] Comment on above: Multiple pieces rece ived. Dimensions of the largest piece reported. Thin prep Papanicolaou smear with manual screeningOrdered By: Dr. Nicole on 02-15-2022 Thin prep Papanicolaou smear with manual screening See comment [facility] Comment on above: Photograph will foll ow under a separate cover Absolute lymphocyte counton 01-12-2022 Lymphocytes Auto (Unsp spec) [#/Vol] 0.55 10*3/uL 0.83-4.51 [facility] Work Phone: Absolute reticulocyte counto n 01-12-2022 Reticulocytes (Bld) [#/Vol] 0.00 10*3/uL 0-5 [facility] Work Phone: Basophil percentageon 2021 Basophil percentage 3.7 mg/dL 2.5-4.9 [facility] Work Phone: Bilirubin [Mass/Vol] 0.60 mg/dL 0.20-1.[address] [facility] Work Phone: [phone] Comment on above: For patients on eltr ombopag therapy, use of Dimension [place] TBIL is not recommended. Chloride [Moles/Vol] 108 mmol/L 98-[address] [facility] Work Phone: [phone] Cholesterol [Mass/Vol] 217 mg/dL <200 [facility] Work Phone: [phone] Comment on above: <200 mg/dL Desirable 200-240 mg/dL Borderline >240 mg/dL High Risk Glucose [Mass/Vol] 110 mg/dL 74-106 [facility] Work Phone: [phone] Comment on above: Fasting Glucose resu lt from 100 to 125 mg/dL suggests IMPAIRED HOMEOSTASIS per A.D.A. criteria. Neutrophils (Bld) [#/Vol] 4.2 10*3/uL 2.0-7.7 [facility] Work Phone: [phone] Potassium [Moles/Vol] 3.9 mmol/L 3.5-5.1 [facility] Work Phone: [phone] Protein [Mass/Vol] 7.3 g/dL 6.4-8.2 [facility] Work Phone: [phone] Sodium [Moles/Vol] 143 mmol/L 136-145 [facility] Work Phone: [phone] Triglyceride [Mass/Vol] 134 mg/dL <199 [facility] Work Phone: [phone] Comment on above: The drugs N-Acetylcy steine and Metamizole may falsely depress this assay.Serum Triglycerides Reference Interval Normal <150 mg/dL Borderline high 150 - 199 mg/dL High 200 - 499 mg/dL Very High > or = 500 mg/dL WBC (Bld) [#/Vol] 5.5 10*3/uL 4.4-11.0 [facility] Work Phone: Bilirubin Test strip Ql (U)o n 01-12-2022 Bilirubin Ql (U) Negative Negative [facility] Work Phone: Blood erythrocytes count (nu mber/volume)on 01-12-2022 RBC (Bld) [#/Vol] 4.76 10*6/uL 4.2-5.4 [facility] Work Phone: [phone] Blood hemoglobin measurement (mass/volume)on 01-12-2022 Hemoglobin (Bld) [Mass/Vol] 14.3 g/dL 12.0-15.0 [facility] Work Phone: [phone] Blood platelet mean volumeon 01-12-2022 Platelet mean volume (Bld) [Entitic vol] 10.4 fL 6.2-12.0 [facility] Work Phone: [phone] Determination of erythrocyte mean corpuscular volume (MCV)on 01-12-2022 MCV (RBC) [Entitic vol] 92.9 fL 81-99 [facility] Work Phone: [phone] Direct bilirubinon Bilirubin.direct [Mass/Vol] 0.17 mg/dL 0.00-0.30 [facility] Work Phone: [phone] Hematocrit Auto (Bld) [Volum e fraction]on 01-12-2022 Hematocrit (Bld) [Volume fraction] 44.2 % 37-47 [facility] Work Phone: [phone] Ketones Test strip Ql (U)on 01-12-2022 Ketones Ql (U) Negative Negative [facility] Work Phone: [phone] Laboratory - Chemistry and C hemistry - challengeon 01-12-2022 ALP [Catalytic activity/Vol] 137 U/L 45-117 [facility] Work Phone: [phone] ALT [Catalytic activity/Vol] 33 U/L 13-56 [facility] Work Phone: [phone] Cholesterol.total/Kayla sterol in HDL [Mass ratio] 2.70 {ratio} [facility] Work Phone: [phone] CO2 [Moles/Vol] 26.0 mmol/L 21.0-32.0 [facility] Work Phone: [phone] Globulin (S) [Mass/Vol] 3.7 g/dL 2.2-4.2 [facility] Work Phone: Urea nitrogen/Creatinine [Mass ratio] 17.1 mg/mg 10-20 [facility] Work Phone: Laboratory - Hematology and Cell countson 01-12-2022 Erythrocyte distribution width (RBC) [Entitic vol] 43.1 fL 35.1-43.9 [facility] Work Phone: [phone] Erythrocyte distribution width (RBC) [Ratio] 12.6 % 11.6-14.6 [facility] Work Phone: MCH (RBC) [Entitic mass] 30.0 pg 27.0-32.0 [facility] Work Phone: Nucleated RBC/100 WBC (Bld) [Ratio] 0 % 0-5 [facility] Work Phone: MCHC Auto (RBC) [Mass/Vol]on 01-12-2022 MCHC (RBC) [Mass/Vol] 32.4 g/dL 32-36 [facility] Work Phone: Nitrite Test strip Ql (U)on 01-12-2022 Nitrite Ql (U) Negative Negative [facility] Work Phone: No Panel Informationon 01-12 Estimated GFR (MDRD) Amer 86 mL/min >60 [facility] Work Phone: Comment on above: GFR Calc Estimated GFR (MDRD) Non-Af Amer 71 mL/min >60 [facility] Work Phone: Comment on above: Non- GFR Calc Platelets bldon 01-12-2022 Platelets (Bld) [#/Vol] 234 10*3/uL 150-450 [facility] Work Phone: Protein Test strip Ql (U)on 01-12-2022 Protein Ql (U) Negative Negative [facility] Work Phone: Segmented neutrophils/100 WB C Auto (Bld)on 01-12-2022 Segmented neutrophils/100 WBC (Bld) 77.1 % 47-70 [facility] Work Phone: Serum or plasma albumin cooper urement (mass/volume)on 01-12-2022 Albumin [Mass/Vol] 3.6 g/dL 3.2-5.0 [facility] Work Phone: Serum or plasma albumin/glob ulin mass ratioon 01-12-2022 Albumin/Globulin [Mass ratio] 1.0 {ratio} 0.9-2.4 [facility] Work Phone: Serum or plasma calcium cooper urement (mass/volume)on 01-12-2022 Calcium [Mass/Vol] 9.3 mg/dL 8.5-10.1 [facility] Work Phone: Serum or plasma cholesterol in HDL measurement (mass/volume)on 01-12-2022 Cholesterol in HDL [Mass/Vol] 81 mg/dL >40 [facility] Work Phone: Comment on above: The drugs N-Acetylcy steine and Metamizole may falsely depress this assay. Reference Range HDL <40 mg/dL Low HDL Cholesterol HDL >or= 60 mg/dL High HDL Cholesterol Serum or plasma cholesterol in VLDL measurement (mass/volume)on 01-12-2022 Cholesterol in VLDL [Mass/Vol] 27 mg/dL 5-40 [facility] Work Phone: Serum or plasma creatinine m easurement (mass/volume)on 01-12-2022 Creatinine [Mass/Vol] 0.88 mg/dL 0.55-1.02 [facility] Work Phone: Comment on above: The validity of the calculated GFR & GFRAA in patients over 70 years has not been determined. Clinical correlation is essential. Serum or plasma low density lipoprotein (LDL) cholesterol measurement (mass/volume)on 01-12-2022 Cholesterol in LDL [Mass/Vol] 109 mg/dL 0-130 [facility] Work Phone: Serum or plasma urea nitroge n measurement (mass/volume)on 01-12-2022 Urea nitrogen [Mass/Vol] 15 mg/dL 7-18 [facility] Work Phone: Serum or plasma uric acid me asurement (mass/volume)on 01-12-2022 Urate [Mass/Vol] 3.1 mg/dL 2.6-6.0 [facility] Work Phone: Comment on above: The drugs N-Acetylcy steine and Metamizole may falsely depress this assay. Thin prep Papanicolaou smear with manual screeningon 01-12-2022 Thin prep Papanicolaou smear with manual screening 24 U/L 15-37 [facility] Work Phone: Thin prep Papanicolaou smear with manual screening 9 5-15 [facility] Work Phone: Thin prep Papanicolaou smear with manual screening 186 U/L 84-246 [facility] Work Phone: Urine blood detectionon 12-28 RBC Ql (U) Negative Negative [facility] Work Phone: Urine clarityon 01-12-2022 Clarity (U) Clear Clear [facility] Work Phone: Urine color determinationon 01-12-2022 Color (U) Yellow Yellow [facility] Work Phone: Urine glucose detectionon Glucose Ql (U) Normal mg/dl Normal [facility] Work Phone: Urine leukocyte esterase det ection by dipstickon 01-12-2022 Leukocyte esterase Test strip Ql (U) 100 /ul Negative [facility] Work Phone: Urine pHon 01-12-2022 pH (U) 7.0 [pH] 5.0 - 8.0 [facility] Work Phone: Urine specific gravity measu rementon 01-12-2022 Specific gravity (U) [Rel density] 1.010 1.002-1.030 [facility] Work Phone: Urobilinogen Auto test strip Ql (U)on 01-12-2022 Urobilinogen Ql (U) Normal mg/dl Normal [facility] Work Phone: Cytology report of Body flui d Cyto stainon 01-10-2022 Cytology report Cyto stain Doc (Body fld) SEE PATHOLOGY REPORT [facility] Work Phone: Comment on above: Specimen submitted t o Anatomical Pathology Department for testing. Basophil percentageon 2021 Basophil percentage 0-5 SEEN /hpf 0-5 [facility] Work Phone: Bilirubin Test strip Ql (U)o n 12-18-2021 Bilirubin Ql (U) Negative Negative [facility] Work Phone: Calcium oxalate crystals det ection in urine sediment by light microscopyon 12-18-2021 Calcium oxalate crystals LM Ql (Urine sed) 1+ /hpf [facility] Work Phone: Ketones Test strip Ql (U)on 12-18-2021 Ketones Ql (U) Negative Negative [facility] Work Phone: Laboratory - Chemistry and C hemistry - challengeon 12-18-2021 Bilirubin Ql (U) Negative [facility] Work Phone: Glucose Ql (U) Negative [facility] Work Phone: Ketones Ql (U) Negative [facility] Work Phone: pH (U) 5.0 [pH] [facility] Work Phone: Specific gravity (U) [Rel density] 1.020 [facility] Work Phone: Urobilinogen (U) [Mass/Vol] 0.5234579 mg/dL [facility] Work Phone: Laboratory - Hematology and Cell countson 12-18-2021 Hemoglobin Ql (U) Moderate [facility] Work Phone: Laboratory - Specimen inform ationon 12-18-2021 Clarity (U) Clear [facility] Work Phone: Color (U) Yellow [facility] Work Phone: Laboratory - Urinalysison Nitrite Ql (U) Negative [facility] Work Phone: Protein Ql (U) 1+ [facility] Work Phone: Mucus LM Ql (Urine sed)on Mucus Ql (Urine sed) 0 SEEN /hpf [facility] Work Phone: Nitrite Test strip Ql (U)on 12-18-2021 Nitrite Ql (U) Negative Negative [facility] Work Phone: No Panel Informationon 12-18 Urine Leukocytes Negatve [facility] Work Phone: Urine Non-Hemolyzed Blood Moderate [facility] Work Phone: Protein Test strip Ql (U)on 12-18-2021 Protein Ql (U) 30 mg/dl Negative [facility] Work Phone: Squamous epithelial cells de tection in urine sediment by light microscopyon 12-18-2021 Epithelial cells.squamous LM Ql (Urine sed) 0-5 SEEN /hpf 5-10 [facility] Work Phone: Urine blood detectionon 11-28 RBC Ql (U) 50 /ul Negative [facility] Work Phone: RBC Ql (U) 0-5 SEEN /hpf 0-5 [facility] Work Phone: Urine clarityon 12-18-2021 Clarity (U) Clear Clear [facility] Work Phone: Urine color determinationon 12-18-2021 Color (U) Yellow Yellow [facility] Work Phone: Urine glucose detectionon Glucose Ql (U) Normal mg/dl Normal [facility] Work Phone: Urine leukocyte esterase det ection by dipstickon 12-18-2021 Leukocyte esterase Test strip Ql (U) 25 /ul Negative [facility] Work Phone: Urine pHon 12-18-2021 pH (U) 6.0 [pH] 5.0 - 8.0 [facility] Work Phone: Urine sediment bacteria coun t by microscopy (number/high power field)on 12-18-2021 Bacteria LM.HPF (Urine sed) [#/Area] 0 /[HPF] None Seen [facility] Work Phone: Urine specific gravity measu rementon 12-18-2021 Specific gravity (U) [Rel density] 1.015 1.002-1.030 [facility] Work Phone: Urobilinogen Auto test strip Ql (U)on 12-18-2021 Urobilinogen Ql (U) Normal mg/dl Normal [facility] Work Phone: Absolute lymphocyte counton 11-06-2021 Lymphocytes Auto (Unsp spec) [#/Vol] 1.43 10*3/uL 0.83-4.51 [facility] Work Phone: Basophil percentageon 2021 Basophils/100 WBC (Bld) 0.5 % 0-1 [facility] Work Phone: Chloride [Moles/Vol] 107 mmol/L 98-[address] [facility] Work Phone: Eosinophils/100 WBC (Bld) 5.8 % 0-5 [facility] Work Phone: Glucose [Mass/Vol] 112 mg/dL 74-106 [facility] Work Phone: Comment on above: Fasting Glucose resu lt from 100 to 125 mg/dL suggests IMPAIRED HOMEOSTASIS per A.D.A. criteria. Neutrophils (Bld) [#/Vol] 3.4 10*3/uL 2.0-7.7 [facility] Work Phone: Neutrophils/100 WBC (Bld) 60.9 % 47-70 [facility] Work Phone: Potassium [Moles/Vol] 3.5 mmol/L 3.5-5.1 [facility] Work Phone: Sodium [Moles/Vol] 142 mmol/L 136-145 [facility] Work Phone: WBC (Bld) [#/Vol] 5.7 10*3/uL 4.4-11.0 [facility] Work Phone: Blood erythrocytes count (nu mber/volume)on 11-06-2021 RBC (Bld) [#/Vol] 4.52 10*6/uL 4.2-5.4 [facility] Work Phone: Blood hemoglobin measurement (mass/volume)on 11-06-2021 Hemoglobin (Bld) [Mass/Vol] 13.6 g/dL 12.0-15.0 [facility] Work Phone: Blood lymphocytes/100 leukoc yteson 11-06-2021 Lymphocytes/100 WBC (Bld) 25.3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 Cardiac Vascular Progressive Care Unit [facility] Comment on above: Acute deep vein thro mbosis (DVT) of proximal vein of left lower extremity (HCC) (Primary Dx); Left leg swelling Start: 12-14-2024 ambulatory FÁTIMA SANTILLAN Facility :[facility] Start: 12-14-2024 End: 12-14-2024 Subsequent hospital visit by physician Mri [facility] (I-Stat/1.5t) Work Phone: Radiology Comment on above: Infection in abdomen (HCC) [K65.9] Start: 12-12-2024 End: 12-13-2024 Emergency department patient visit JIMBO DASH Facility:[facility] Start: 12-11-2024 End: 12-11-2024 Emergency department patient visit Dr. Jimbo Dash MD Work Phone: -Emergency Department Work Phone: Start: 12-08-2024 End: 12-08-2024 Subsequent hospital visit by physician Xr [facility] Work Phone: Radiology Comment on above: Injury of toe on lef t foot, initial encounter [S99.922A] Start: 12-08-2024 End: 12-08-2024 Patient encounter procedure Marguerite Daily APRN.CNP Work Phone: [facility] Comment on above: Closed nondisplaced fracture of distal phalanx of lesser toe of left foot, initial encounter (Primary Dx); Injury of toe on left foot, initial encounter Start: 12-08-2024 End: 12-08-2024 ambulatory JIMBO DASH Facility:[facility] Start: 11-23-2024 End: 11-23-2024 Telephone encounter Fátima Santillan MD Work Phone: Urology Start: 11-20-2024 End: 11-23-2024 ambulatory Fátima Santillan MD Work Phone: Urology Comment on above: Mri Start: 10-27-2024 Non-patient / Non-visit Dr. April skaggs MD -[facility] Work Phone: Start: 10-23-2024 End: 10-23-2024 Patient encounter procedure Fátima Santillan MD Work Phone: Urology Comment on above: Bladder stone (Prima ry Dx); Erosion of bladder suspension mesh, sequela Start: 10-23-2024 End: 10-23-2024 ambulatory FÁTIMA SANTILLAN Facility:[facility] Start: 10-15-2024 End: 10-15-2024 Telephone encounter Elida Angelo PASTRY ASSISTANT.EDUCATION ASSISTANT Work Phone: Urology Comment on above: Results Start: 10-13-2024 End: 10-13-[address] Jimbo Dash MD Work Phone: [facility] Work Phone: Start: 10-13-2024 End: 10-13-[address] Jimbo Dash MD Work Phone: -Cat Scan [facility] Work Phone: Start: 10-13-2024 End: 10-13-2024 ambulatory SLAVA SHAH Facility:[facility] Start: 09-25-2024 End: 09-25-2024 Telephone encounter Elida Angelo PASTRY ASSISTANT.EDUCATION ASSISTANT Work Phone: Urology Comment on above: Patient Update Start: 09-24-2024 End: 09-24-2024 ambulatory ELIDA ANGELO Facility:[facility] Start: 09-24-2024 End: 09-24-2024 Office consultation new/estab patient 60 min Elida Petey PASTRY ASSISTANT.EDUCATION ASSISTANT Work Phone: Urology Comment on above: Bladder stone Start: 09-08-2024 End: 09-08-2024 ambulatory Ric Taylor APRN.EDUCATION ASSISTANT Work Phone: Gynecology Comment on above: Referal Start: 08-26-2024 End: 08-26-2024 Telemedicine consultation with patient Ric Gilbert ASH.EDUCATION ASSISTANT Work Phone: Gynecology Start: 08-26-2024 End: 08-26-2024 ambulatory Ric Taylor PASTRY ASSISTANT.EDUCATION ASSISTANT Work Phone: Gynecology Comment on above: 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 Reji Goldberg MD -[facility] Work Phone: Start: 08-17-2024 End: 08-17-2024 [facility] Start: 08-17-2024 End: 08-17-[address] Jimbo Dash MD -Laboratory [facility] Start: 08-17-2024 End: 08-17-2024 ambulatory Jimbo Dash Facility:[facility] Start: 07-14-2024 Non-patient / Non-visit Dr. Reji chavez MD -[facility] Start: 07-14-2024 End: 07-14-[address] Jimbo Dash MD Work Phone: [facility] Work Phone: Start: 07-14-2024 End: 07-14-2024 Patient encounter procedure Martine KU -Cardiovascular Services Work Phone: Start: 07-14-2024 End: 07-14-2024 ambulatory Martine Power Facility:[facility] Start: 07-08-2024 End: 07-08-[address] Jimbo Dash MD Work Phone: [facility] Work Phone: Start: 07-08-2024 End: 07-08-[address] Jimbo Dash MD -Laboratory Work Phone: Start: 07-08-2024 End: 07-08-2024 ambulatory Jimbo Dash Facility:[facility] Start: 06-11-2024 ambulatory Reji Goldberg Facility: [place] Start: 06-11-2024 Non-patient / Non-visit Dr. Reji chavez MD -[facility] Start: 06-11-2024 End: 06-11-2024 Emergency department patient visit Dr. Rupert Yeung -Emergency Department Work Phone: Start: 05-21-2024 End: 05-21-[address] Jimbo Dash MD -Laboratory, Specimen Work Phone: Start: 05-21-2024 End: 05-21-[address] Jimbo Dash MD -Radiology, [place] Work Phone: Start: 05-21-2024 End: 05-21-2024 ambulatory Jimbo Dahs Facility:[facility] Start: 03-13-2024 End: 03-13-2024 Emergency department patient visit Mp Torrez Facility:[facility] Start: 08-12-2023 End: 08-12-[address] Jimbo Dash Work Phone: [facility] Work Phone: Start: 08-12-2023 End: 08-12-[address] Jimbo Dash Work Phone: [facility] Work Phone: Start: 07-10-2023 End: 07-10-[address] Jimbo Dash Work Phone: [facility] Work Phone: Start: 07-10-2023 End: 07-10-[address] Jimbo Dash Work Phone: [facility]-Radiology, [place] Work Phone: Start: 06-10-2023 End: 06-10-[address] Jimbo Dash Work Phone: [facility] Work Phone: Start: 06-10-2023 End: 06-10-[address] Jimbo Dash Work Phone: [facility]-Laboratory Work Phone: Start: 05-09-2023 End: 05-09-[address] Jimbo Dash Work Phone: [facility] Work Phone: Start: 04-11-2023 End: 04-11-[address] Jimbo Dash Work Phone: [facility] Work Phone: Start: 04-11-2023 End: 04-11-[address] Jimbo Dash Work Phone: [facility]-Outpatient Bone Densitometry Work Phone: Start: 04-05-2023 Non-patient / Non-visit Dr. Kings Dash Work Phone: [facility] Start: 04-05-2023 End: 04-05-[address] Jimbo Dash Work Phone: [facility] Work Phone: Start: 04-05-2023 End: 04-05-[address] [facility] Start: 02-01-[address] Jimbo copeland Work Phone: [facility]-Laboratory Work Phone: Start: 11-05-2022 End: 11-05-[address] Jimbo Dash Work Phone: [facility] Work Phone: Start: 11-05-2022 End: 11-05-[address] Jimbo Dash Work Phone: [facility]-Laboratory, [facility] Start: 10-25-2022 End: 10-25-[address] Jimbo Dash Work Phone: [facility] Vascular Surgery Work Phone: Start: 10-03-2022 End: 10-03-2022 Admission to same day surgery center Dr. Jimbo Dash Work Phone: [facility]-Insulation Batting Machine Operator/Special Procedures Start: 10-03-2022 End: 10-03-[address] Jimbo Dash Work Phone: [facility] Work Phone: Start: 10-03-2022 Non-patient / Non-visit Dr. Kings Dash Work Phone: [facility] Start: 09-17-2022 ambulatory Walt EISENBERG RN.EDUCATION ASSISTANT Work Phone: Urogynecology Comment on above: Operative report Start: 09-17-2022 E-mail encounter fro m caregiver Walt Ulrich APRN.EDUCATION ASSISTANT Work Phone: [facility] Start: 08-30-2022 End: 08-30-[address] Jimbo Dash Work Phone: [facility] Vascular Surgery Start: 08-16-2022 End: 08-16-[address] Jimbo Dash Work Phone: [facility] Work Phone: Start: 08-16-2022 End: 08-16-[address] Jimbo Dash Work Phone: [facility] Start: 08-08-2022 End: 08-08-[address] Jimbo Dash [facility] Phone[facility] Start: 08-01-2022 End: 08-01-[address] Jimbo Dash Work Phone: [facility] Vascular Surgery Start: 08-01-2022 End: 08-01-[address] Jimbo Dash Work Phone: [facility] Work Phone: Start: 08-01-2022 End: 08-01-[address] Jimbo Dash Work Phone: [facility] Start: 05-09-2022 Non-patient / Non-visit Dr. Kings Dash Work Phone: [facility] Start: 05-09-2022 End: 05-09-[address] Jimbo Dash Work Phone: [facility] Work Phone: Start: 05-09-2022 End: 05-09-[address] Jimbo Dash Work Phone: [facility]-Cardiovascular Services Start: 05-03-2022 End: 05-03-[address] Jimbo Dash Work Phone: [facility] Vascular Surgery Start: 04-30-2022 End: 04-30-2022 Patient encounter procedure Celia David ROCHA Work Phone: [facility] Comment on above: Dermatitis (Primary Dx) Start: 04-18-2022 End: 04-18-[address] Jimbo Dash Work Phone: [facility] Start: 03-01-2022 Telephone encounter Jimbo Dash MD Work Phone: Urology Comment on above: Referral Information Start: 02-15-2022 End: 02-15-2022 Admission to same day surgery center Dr. Jimbo Dash Work Phone: [facility]-Surgical Day Care Start: 02-15-2022 End: 02-15-[address] Jimbo Dash Work Phone: [facility] Work Phone: Start: 02-12-2022 End: 02-12-[address] Jimbo Dash Work Phone: [facility] Work Phone: Start: 02-12-2022 End: 02-12-[address] Jimbo Dash Work Phone: [facility] Start: 02-09-2022 Non-patient / Non-visit Dr. Kings Dash Work Phone: [facility] Start: 02-09-2022 End: 02-09-2022 Admission to same day surgery center Dr. Jimbo Dash Work Phone: [facility]-Endoscopy Start: 02-09-2022 End: 02-09-[address] Jimbo Dash Work Phone: [facility] Work Phone: Start: 01-12-[address] Jimbo copeland Work Phone: [facility]-Employee Health Start: 01-10-2022 End: 01-10-[address] Jimbo Dash Work Phone: [facility] Work Phone: Start: 01-10-2022 End: 01-10-[address] Jimbo Dash Work Phone: [facility]-Laboratory, Specimen Start: 12-18-2021 End: 12-18-[address] Jimbo Dash Work Phone: [facility] Work Phone: Start: 12-18-2021 End: 12-18-[address] [facility] [facility], Specimen Start: 12-18-2021 End: 12-18-[address] Jimbo Dash Work Phone: [facility] Start: 11-21-2021 End: 11-21-[address] Jimbo Dash Work Phone: [facility] Start: 11-06-2021 End: 11-06-2021 Patient encounter procedure [facility], [facility] Start: 10-30-2021 Orders Only Bekah martínez APRN.CNM Work Phone: OB/Gynecology Comment on above: Other specified dysp areunia (Primary Dx); Vaginal atrophy; Vaginismus Start: 10-27-2021 Telephone encounter Bekah cotter PASTRY ASSISTANT.CNM Work Phone: OB/Gynecology Comment on above: Results Start: 10-24-2021 Orders Only Bekah martínez PASTRY ASSISTANT.CNM Work Phone: OB/Gynecology Comment on above: Dysuria (Primary Dx) Start: 10-10-2021 ambulatory Bekah martínez PASTRY ASSISTANT.CNM Work Phone: OB/Gynecology Procedures Date Procedure Procedure Detail Performing Clinician Start: 01-13-[address] e fraction Dr. Jimbo Dash MD Work Phone: Start: 01-13-2025 Total iron binding c apacity measurement Dr. Jimbo Dash MD Work Phone: Start: 01-06-[address] Jimbo Dash MD Work Phone: Start: 01-05-2025 Coagulation time, activated Dr. Jimbo Dash MD Work Phone: Start: 12-28-[address] Jimbo Dash MD Work Phone: Start: 12-28-2024 CT angiography of ch est with contrast Dr. Jimbo Dash MD Work Phone: Start: 12-17-2024 Basic metabolic pane l calcium total Alen Lyndsey DO Work Phone: Start: 12-17-2024 Thromboplastin time [...] art/b ypass grfts contrst 3d post Alen Baicurtis DO Work Phone: Start: 12-16-2024 ABO and Rh group [Ty pe] in Blood by Confirmatory method Gala Pa MD Work Phone: Start: 12-16-2024 Antibody screen ALEN ORDONEZ Comment on above: Performed By: #### L [id number] ####Neckties Painter: AVERY WORTHINGTON ([phone])[facility] BLOOD [facility] ([address] Start: 12-16-2024 Basic metabolic pane l calcium [...] Basic metabolic pane l calcium total Clinton Rodriguez PA-C Work Phone: Start: 12-14-2024 Assay of troponin quantitative Riley Mcmillan HOSPITALIST PROGRAM DIRECTOR Work Phone: Start: 12-14-2024 Ct angiography chest w/contrast/noncontrast Riley Mcmillan HOSPITALIST PROGRAM DIRECTOR Work Phone: Start: 12-14-2024 Comprehensive metabo lic panel Riley Mcmillan HOSPITALIST PROGRAM DIRECTOR Work Phone: Start: 12-14-2024 Ecg routine ecg w/le ast 12 lds i&r only Riley Mcmillan NP Work Phone: Start: 12-11-[address] Jimbo Dash MD Work Phone: Start: 12-11-2024 CT of abdominal aort a with contrast Dr. Jimbo Dash MD Work Phone: Start: 12-08-2024 Radex toe minimum 2 views Marguerite Killian PASTRY ASSISTANT.EDUCATION ASSISTANT Work Phone: Start: 10-23-2024 Urnls dip stick/tabl et rgnt auto w/o microscopy Fátima Santillan MD Work Phone: Start: 10-13-2024 CT of pelvis without contrast Dr. Jimbo Dash MD Work Phone: Start: 09-24-2024 BLADDER SCAN Elida Dus z PASTRY ASSISTANT.EDUCATION ASSISTANT Work Phone: Start: 09-24-2024 Urnls dip stick/tabl et rgnt auto w/o microscopy Elida Dusz PASTRY ASSISTANT.EDUCATION ASSISTANT Work Phone: Start: 07-08-[address] [...] bacterial quanttative colony count urine Bekah Redd PASTRY ASSISTANT.CNM Work Phone: Start: 07-21-2020 Mammography Bekah Hao yuanreynaldo PASTRY ASSISTANT.CNM Work Phone: Start: 11-28-2010 Lipid 1996 panel - S sam or Plasma Ric Taylor PASTRY ASSISTANT.EDUCATION ASSISTANT Work Phone: Urine culture Dr. Jimbo sterling Work Phone: Plan of Treatment Date Care Activity Detail Author Start: 2040 RSV Immunization for Adults (1 - 1-dose 75+ series) RSV Immunization for Adults (1 - 1-dose 75+ series) [facility] Start: 02-08-2032 DTaP/Tdap/Td Vaccine s (4 - Td or Tdap) DTaP/Tdap/Td Vaccines (4 - Td or Tdap) [facility] Start: 02-08-2032 Urine microalbumin profile DTaP,Tdap,Td Vaccine (4 - Td or Tdap) [facility] Start: 12-13-2027 Diabetes Screening Diabetes Screenin g [facility] Start: 03-24-2025 ambulatory Ambulatory Facility:[facility] Start: 03-09-2025 End: 03-09-2025 Patient encounter procedure 03/09/2025 3:30 PM EST Office Visit Urology [address] [place] [id number] Fátima Santillan MD [address] [place] [address] PREOP, REVIEW PELVIC MRI Urology Comment on above: PREOP, REVIEW PELVIC MRI Start: 01-06-2025 Partial thromboplast in time, activated [facility] Start: 01-06-[address] [facility] Start: 01-05-2025 Elevation of head of bed [facility] Start: 01-05-[address] [facility] Start: 01-05-2025 Dietary regime [facility] Start: 01-05-2025 Log roll [facility] Start: 01-05-2025 Notification of physician [facility] Start: 01-05-2025 Provision of activit y privileges [facility] Start: 01-05-2025 Pulse taking [facility] Start: 01-05-2025 End: 01-05-2025 [facility] Start: 01-04-2025 End: 01-05-2025 [facility] Start: 01-04-2025 Ambulation without limitation [facility] Start: 01-04-2025 Assessment of risk o f venous thromboembolism [facility] Start: 01-04-2025 Catheterization of vein [facility] Start: 01-04-2025 Elevation of affecte d extremity [facility] Start: 01-04-2025 Insertion of cathete r into peripheral vein [facility] Start: 01-04-2025 Measuring intake and output [facility] Start: 01-04-2025 Notification of physician [facility] Start: 01-04-2025 Oxygen therapy [facility] Start: 01-04-[address] [facility] Start: 01-04-2025 Providing care accor ding to standard [facility] Start: 01-04-2025 Admission procedure [facility] Start: 01-04-2025 Following clinical pathway protocol [facility] Start: 12-29-2024 End: 12-29-2024 Patient encounter procedure 12/29/2024 10:45 AM EDT Office Visit Urology [address] [place] [id number] Fátima Santillan MD [address] [place] [address] NEED PATIENT TO CONFIRM Urology Comment on above: NEED PATIENT TO CONF IRM Start: 12-28-2024 [facility] Start: 12-28-2024 US.doppler Lower extremity vein [facility] Start: 12-28-2024 Influenza vaccination Influenza Vacc ine (#1) [facility] Start: 12-14-2024 End: 12-14-2024 Patient encounter procedure 12/14/2024 1:00 PM EDT Appointment Radiology [address] [place] [address] Infection in abdomen (HCC) [K65.9] Radiology Comment on above: Infection in abdomen (HCC) [K65.9] Start: 12-11-2024 End: 12-11-2024 [facility] Start: 11-03-2024 End: 11-03-2024 Patient encounter procedure 11/03/2024 10:30 AM EDT Office Visit [facility] [address] [place] [phone] Ladarius Pathak MD [address] [place] [address] cysto with elías- ct prior at [facility] Comment on above: cysto with elías- ct prior at [facility] Start: 09-24-2024 End: 09-24-2024 Patient encounter procedure 09/24/2024 11:00 AM EDT Office Visit Urology [address] [place] [address] Elida Angelo APRN.[facility] [address] [phone] new patient; referral; possible bladder stone--had cysto done from other provider; patient will fax over records Urology Comment on above: new patient; referra l; possible bladder stone--had cysto done from other provider; patient will fax over records Start: 06-11-2024 [facility] Start: 04-11-2024 Screening for malign ant neoplasm of breast Mammogram [facility] Start: 12-29-2023 Covid-19 Vaccine ( season) Covid-19 Vaccine () [facility] Start: 04-29-2022 [facility]ION [facility] Start: 04-18-2022 Patient referral [facility] Work Phone: Start: 02-15-2022 Anes trurl fragmntj manj&/rmvl ureteral calculus ANESTH STONE REMOVAL [facility] Start: 02-15-2022 Cysto w/ureteroscopy w/lithotripsy CYSTOURETERO W/LITHOTRIPSY [facility] Start: 02-15-[address] [facility] Start: 02-09-2022 Colonoscopy flx dx w/collj spec when pfrmd DIAGNOSTIC COLONOSCOPY [facility] Start: 02-09-[address] [facility] Start: 12-28-2021 Influenza vaccination INFLUENZA (#1) [facility] Start: 10-24-2021 End: 12-24-2021 Bacteria identified in Urine by Culture URINE CULTURE Microbiology Routine Dysuria Expected: 10/24/2021, Expires: 12/24/2021 [facility] Work Phone: Comment on above: Expected: 10/24/2021 , Expires: 12/24/2021 Start: 10-24-2021 End: 12-24-2021 Urinalysis complete panel - Urine URINALYSIS, WITH MICROSCOPIC Lab Routine Dysuria Expected: 10/24/2021, Expires: 12/24/2021 [facility] Work Phone: Comment on above: Expected: 10/24/2021 , Expires: 12/24/2021 Start: 07-21-2021 Mammography MAMMOGRAM [facility] Start: 07-21-2021 Screening for malign ant neoplasm of breast Mammogram Screening [facility] Start: 04-29-2021 DEPRESSION ASSESSMENT DEPRESSION ASS ESSMENT [facility] Start: 10-29-2020 COVID-19 VACCINE (3 - Booster for Moderna series) COVID-19 VACCINE (3 - Booster for Moderna series) [facility] Start: 07-27-2020 COVID-19 VACCINE (3 - Booster for Moderna series) COVID-19 VACCINE (3 - Booster for Moderna series) [facility] Start: 12-10-2016 End: 12-10-2016 Appointment Appointment [facility] Work Phone: Start: 12-10-2016 End: 12-10-2016 X-ray exam of foot X-Ray, Foot [facility] Work Phone: Start: 10-29-2016 End: 10-29-2016 Appointment Appointment [facility] Work Phone: Start: 10-29-2016 End: 10-29-2016 X-ray exam of foot X-Ray, Foot [facility] Work Phone: Start: 10-29-2016 End: 10-29-2016 X-ray exam, knee, 4 or more X-Ray, Knee [facility] Work Phone: Start: 07-05-2016 End: 07-05-2016 X-ray exam of finger(s) X-Ray, Fingers [facility] Work Phone: Start: 06-26-2016 Urine microalbumin profile DTAP,TDAP,TD (2 - Td or Tdap) [facility] Start: 11-29-2015 Lipid panel Lipid Screening [facility] Start: 11-29-2015 LIPID SCREEN LIPID SCREEN [facility] Start: 2015 Pneumococcal Vaccine : 50+ (1 of 1 - PCV) Pneumococcal Vaccine: 50+ (1 of 1 - PCV) [facility] Start: 2015 Pneumococcal Vaccine : 50+ Years (1 of 1 - PCV) Pneumococcal Vaccine: 50+ Years (1 of 1 - PCV) [facility] Start: 2015 SHINGRIX VACCINE (1 of 2) FERNANDEZ GRIX VACCINE (1 of 2) [facility] Start: 2015 Zoster Vaccines (1 of 2) Zoste r Vaccines (1 of 2) [facility] Start: 11-28-2013 DIABETES SCREEN DIABETES SCREEN [facility] Start: 11-28-2013 Diabetes Screening Diabetes Screenin g [facility] Start: 02-26-2011 PAP TESTING PAP TESTING [facility] Start: 2010 COLOGUARD (FIT-DNA) COLOGUARD (FIT-D NA) [facility] Start: 2010 Colonoscopy COLONOSCOPY [facility] Start: 2010 COLORECTAL CANCER SCREENING COLORECTAL CANCER SCREENING [facility] Start: [address] COLONOGRAPHY [facility] Start: 2010 FECAL OCCULT BLOOD FECAL OCCULT BLOO D [facility] Start: 2010 Screening for malign ant neoplasm of colon [facility] Start: 2010 SIGMOIDOSCOPY SIGMOIDOSCOPY [facility] Start: 02-26-2009 Screening for malign ant neoplasm of cervix Cervical Cancer Screening [facility] Start: 1995 HPV TESTING HPV TESTING [facility] Start: 1995 Screening for malign ant neoplasm of cervix [facility] Start: 1986 Screening for malign ant neoplasm of cervix Pap Smear [facility] Start: 1984 Hepatitis B Vaccines (1 of 3 - 19+ 3-dose series) Hepatitis B Vaccines (1 of 3 - 19+ 3-dose series) [facility] Start: 1983 Anxiety Screening Anxiety Screening [facility] Start: 1983 Depression Screening Depression Scre ening [facility] Start: 1983 Diabetes mellitus screening Diabetes Screening [facility] Start: 1983 HEPATITIS C SCREENING HEPATITIS C [facility] Start: 1983 Hepatitis C screening Hepatitis C [facility] Start: 1983 HIV SCREENING HIV SCREENING [facility] Start: 1983 HIV screening HIV Screening [facility] Start: 1977 Adult depression screening assessment DEPRESSION SCREENING [facility] Start: 1966 MMR Vaccines (1 of 1 - Standard series) MMR Vaccines (1 of 1 - Standard series) [facility] Start: 1965 HEPATITIS B (1 of 3 - 3-dose series) HEPATITIS B (1 of 3 - 3-dose series) [facility] Start: 1965 HIV screening HIV Screening [facility] Start: 1965 Screening for malign ant neoplasm of colon [facility] Bacteria identified in Urine by Culture URINE CULTURE Microbiology Routine Dysuria 10/11/2021 7:35 AM EDT [facility] Work Phone: BLADDER SCAN BLADDER SCAN Pro cedures Routine Bladder stone Ordered: 10/22/2024 [facility] Comment on above: Ordered: 10/22/2024 Calcium [Mass/volume ] in Serum or Plasma [facility] Work Phone: CT Abdomen and Pelvis [facility] Doppler ultrasonogra phy of aorta [facility] Hemoglobin [Mass/vol ume] in Blood [facility] MR Pelvis WO and W contrast IV MRI FEMALE PELVIS WO/W IVCON Radiology Routine Infection in abdomen (HCC) 12/14/2024 1:53 PM EDT [facility] Work Phone: Patient Education [facility] Work Phone: Patient referral [facility] Work Phone: UA DIP, URINE (POC) UA DIP, URIN E (POC) Lab Routine Bladder stone Ordered: 10/22/2024 [facility] Work Phone: Comment on above: Ordered: 10/22/[facility] Immunization Date Immunization Notes Care Provider [facility] 01-29-2024 influenza, seasonal, injectable, preservative free Dr. Jimbo Dash MD Work Phone: [facility] 01-29-2024 influenza virus vaccine, unspecified formulation Fátima Santillan MD Work Phone: [facility] 02-12-2023 influenza, injectabl e, quadrivalent, preservative free Dr. Jimbo Dash Work Phone: [facility] 01-29-2022 influenza, injectabl e, quadrivalent, preservative free Dr. Jimbo Dash Work Phone: [facility] 01-29-2022 influenza, seasonal, injectable Dr. Jimbo Dash Work Phone: [facility] 02-09-2021 influenza, injectabl e, quadrivalent, preservative free Dr. Jimbo Dash Work Phone: [facility] 02-09-2021 influenza, seasonal, injectable [facility] 06-01-2020 Covid (Moderna) [facility] 05-04-2020 Covid (Moderna) [facility] 02-19-2020 influenza, injectabl e, quadrivalent, preservative free Dr. Jimbo Dash Work Phone: [facility] 02-19-2020 influenza, seasonal, injectable [facility] 07-04-2019 tetanus toxoid, redu christ diphtheria toxoid, and acellular pertussis vaccine, adsorbed [facility] 01-22-2019 influenza, injectabl e, quadrivalent, preservative free Dr. Jimbo Dash Work Phone: [facility] 01-22-2019 influenza, seasonal, injectable [facility] 01-22-2018 influenza, injectabl e, quadrivalent, preservative free Dr. Jimbo Dash Work Phone: [facility] 01-22-2018 influenza, seasonal, injectable [facility] 01-24-2017 influenza, injectabl e, quadrivalent, preservative free Dr. Jimbo Dash Work Phone: [facility] 01-24-2017 influenza, seasonal, injectable [facility] 01-26-2016 influenza, injectabl e, quadrivalent, preservative free Dr. Jimbo Dash Work Phone: [facility] 01-26-2016 influenza, seasonal, injectable [facility] 01-27-2015 influenza, injectabl e, quadrivalent, preservative free Dr. Jimbo Dash Work Phone: [facility] 01-27-2015 influenza, seasonal, injectable [facility] 01-21-2014 influenza, injectabl e, quadrivalent, preservative free Dr. Jimbo Dash Work Phone: [facility] 01-21-2014 influenza, seasonal, injectable [facility] 01-17-2009 tuberculin skin test ; purified protein derivative solution, intradermal Ricvaleria Taylor PASTRY ASSISTANT.EDUCATION ASSISTANT Work Phone: [facility] 06-26-2006 tetanus toxoid, redu christ diphtheria toxoid, and acellular pertussis vaccine, adsorbed Bekah Redd PASTRY ASSISTANT.CNM Work Phone: [facility] Work Phone: Payers Date Payer Category Payer Commercial Managed C are - HMO [employer] [id number] 2024 Self-pay [id number] 2022 Private Health Insurance [id number] 2022 Unknown [id number] 2020 Unknown MMO MMO TPA xxxx [id number] 2020-Present [address] [place] [address] PPO [id number] 2020 Unknown MMO MMO TPA xxxx [id number] 2020-Present [address] [place] [address] PPO [id number] 2016 Unknown [id number] Unknown [facility] [id number] Unknown [id number] .462 Unknown [id number] 2.16.840.1.249344.3.579.2 .462 Unknown [id number] 2.16.840.1.686764.3.579.2 .462 Unknown [id number] 2.16.840.1.909628.3.579.2 .462 Unknown [id number] 2.16.840.1.940040.3.579.2 .462 Unknown [id number] 2.16.840.1.982628.3.579.2 .462 Unknown [id number] 2.16.840.1.637693.3.579.2 .462 Unknown [id number] 2.16.840.1.953417.3.579.2 .462 Unknown [id number] 2.16.840.1.811319.3.579.2 .462 Unknown [id number] 2.16.840.1.249848.3.579.2 .462 Unknown [id number] 2.16.840.1.095247.3.579.2 .462 Unknown [id number] 2.16.840.1.590510.3.579.2 .462 Unknown [id number] 2.16.840.1.112212.3.579.2 .462 Unknown [id number] 2.16.840.1.049026.3.579.2 .462 Unknown [id number] 2.16.840.1.664010.3.579.2 .462 Unknown [id number] 2.16.840.1.865041.3.579.2 .462 Unknown [id number] 2.16.840.1.905378.3.579.2 .462 Unknown [id number] 2.16.840.1.803438.3.579.2 .462 Unknown [id number] 2.16.840.1.602077.3.579.2 .462 Unknown [id number] 2.16.840.1.622110.3.579.2 .462 Unknown [id number] 2.16.840.1.919565.3.579.2 .462 Unknown [id number] 2.16.840.1.519364.3.579.2 .462 Unknown [id number] 2.16.840.1.721764.3.579.2 .462 Unknown [id number] 2.16.840.1.413129.3.579.2 .462 Unknown [id number] 2.16.840.1.017780.3.579.2 .462 Unknown [id number] 2.16.840.1.116722.3.579.2 .462 Unknown [id number] 2.16.840.1.944066.3.579.2 .462 Unknown [id number] 2.16.840.1.106923.3.579.2 .462 Social History Date Type Detail Facility Start: 04-30-2022 End: 01-04-2025 Tobacco smoking status NHIS Never smoked tobacco [facility] Work Phone: Start: 07-04-2020 End: 12-08-2024 Alcohol intake Current non-drinker of alcohol (finding) [facility] Start: 1965 Sex Assigned At Not on file [facility] Start: 10-01-2021 End: 10-25-2021 Exposure to SARS-CoV-2 (event) Not sure [facility] Start: 05-12-2021 End: 05-09-2023 Tobacco smoking status NHIS Unknown if ever smoked [facility] Start: 10-03-2020 None [facility] Start: 10-03-2020 Homeless [facility] Start: 10-03-2020 Non-smoker [facility] Start: 1965 Sex Assigned At Female W [facility] Start: 04-30-2022 End: 12-14-2024 Tobacco use and exposure Smokeless tobacco non-user [facility] Start: 07-15-2024 End: 12-14-2024 Sex Female (finding) [facility] Start: 09-17-2022 End: 08-26-2024 History of Social function [facility] Start: 09-17-2022 End: 08-26-2024 Tobacco use panel [facility] Start: 03-30-2012 National Score (1-100), lower number is lower risk 47 [facility] How often do you nee d to have someone help you when you read instructions, pamphlets, or other written material from your doctor or pharmacy [SILS] Never [facility] Has the [place], oil, or water Gingr threatened to shut off services in your home in past 12Mo Yes [facility] Within the last year , have you been afraid of your partner or ex-partner? No [facility] Are you now , , , , never or living with a partner? [facility] How hard is it for y [...] got money to buy more. Never true [facility] NEGATED: Highlighted row [facility] Medical Equipment Procedure Code Equipment Code Equipment [...] Start: 02-04-2019 SPEEDBRIDGE 4.75 FDA Start: 02-04-2019 ([id number]) Bare-metal tracheal/bronchial/v ascular stent ()[id number] FDA Start: 10-03-2022 Bare-metal tracheal/bronchial/v ascular stent ()[id number] FDA Start: 10-03-2022 .062 GUIDE WIRE W/TROCAR [...] /State Functional Status Date Assessment Result Facility 01-06-2025 Functional status Ambulates;Up ad jf [facility] Work Phone: 01-05-2025 Functional status Tolerates Activity Well [facility] Work Phone: 12-16-2024 Total score [AUDIT-C] 0 12/17/19 5:30 AM EDT [employer], Generic [employer] 12-16-2024 How often to you hav e a drink containing alcohol? Never 12/16/2024 5:30 AM EDT Vitrinah[employer], Generic Never [employer] 12-16-2024 Functional status Patient does n ot drink 12/16/2024 5:30 AM EDT [employer], Generic Patient does not drink [employer] 12-16-2024 How often do you hav e 6 or more drinks on 1 occasion? Never 12/16/2024 5:30 AM EDT Terry Butler [facility] 02-15-2022 Functional status Bathroom Privilege [facility] Work Phone: Mental Status Date Assessment Result Facility 01-06-2025 Cognitive function Voice/Name [facility] Work Phone: 06-11-2024 Cognitive function Voice/Name [facility] Work Phone: 02-15-2022 Cognitive function Voice/Name [facility] Work Phone: 02-09-2022 Cognitive function Voice/Name;Touch/Shaki ng [facility] Work Phone: Clinical Notes 03-24-2008 to 01-21-2025 Note Date & Type Note Facility 01-21-2025 Progress note [facility] Services 01-06-2025 Consult note [facility] 01-06-2025 Discharge summary Note Date/Time January 06, 2025 10:08am [facility] Medical Records Department [address] [place] [address] Discharge Summary 01/06/25 0908 MR#: [id number] Acct: [id number] Name: KAROLINA AHN Rep #:[id number] : 1965 59 From: Martine KU PCP: Dr. Jimbo Dash MD Status:ADM I NO Location: [place] [address] Providers Date of Admission: 01/04/25 Primary Care Physician: Dr. Jimbo Dash MD Reason For Visit: Acute embolism and thrombosis of unspecified deep Diagnosis Discharge Diagnosis (1) DVT (deep venous thrombosis): Status: Acute Code(s): I82.409 - Acute embolism and thrombosis of unspecified deep veins of unspecifiedlower extremity Qualifiers: Affected thrombotic vein of extremity: iliac Chronicity: acute DVT location: lower extremity Laterality: left Qualified Code(s): I82.422 - Acute embolism and thrombosis of left iliac vein Medications at Discharge Home Medications sertraline 100 mg tablet 50 mg PO BID anxiety 03/30/14 Cholecalciferol (Vitamin D3) [Vitamin D3] 5,000 unit PO DAILY supplement 11/09/20 cyanocobalamin (vitamin B-12) 5,000 mcg disintegrating tablet 3,000 mcg PO DAILYsupplement 03/07/20 omeprazole 20 mg tablet,delayed release 20 mg PO QHS reflux 03/07/20 pitavastatin calcium 2 mg tablet (Livalo) 4 mg PO QPM cholesterol 02/08/22 cetirizine 10 mg capsule (Zyrtec) 10 mg PO DAILY allergies 04/12/22 dicyclomine 20 mg tablet 20 mg PO BID IBS 10/02/22 tizanidine 2 mg tablet 2 mg PO QHS PRN muscle spasticity #14 tabs 12/10/23 enoxaparin 60 mg/0.6 mL subcutaneous syringe (Lovenox) 60 mg (0.6 mL) subcut Q12H 30 days #36 mL 12/28/24 ferrous sulfate 137 mg (45 mg iron) tablet,extended release (Slow Fe) 137 mg PO DAILY 01/04/25 acetaminophen 325 mg tablet 650 mg (2 x 325 mg) PO Q6H PRN PRN Pain 1-10 Or Fever >100.7 #0 tabs 01/06/25 clopidogrel 75 mg tablet 75 mg PO DAILY #90 tabs 01/06/25 ondansetron HCl 4 mg tablet 4 mg PO BID PRN PRN nausea/vomiting 5 days #10 tabs 01/06/25 oxycodone 5 mg tablet 5 mg PO Q8H PRN PRN Pain Score 4-10 5 days #15 tabs 01/06/25 Hospital Course Summary of Care Provided Hospital Course: Karolina Ahn is a 59 y/o female who was admitted 01/04/25 for heparin bridge priorto venogram with left iliac vein thrombectomy and bilateral iliac vein angioplasty on 01/05/25 after which she was kept overnight for monitoring and heparin bridge back to lovenox today 01/06/25. Hgb with expected drop from surgery, otherwise stable. No signs of bleeding at access sites or otherwise. She has had improvement in LLE edema and pain. She has ambulated without difficulty and is tolerating a normal diet. She is stable for discharge home today with planned outpatient follow-up next week for suture removal. She will continue with Lovenox BID + Plavix daily. Weight / BMI Weight Weight: 144 lb Body Mass Index (BMI) 24.7 ABG / Lab / Microbiology Data 01/06/25 03:55 01/06/25 03:55 Laboratory: Laboratory Results - last 24 hr 01/05/25 12:09: Activated Clotting Time 187 H 01/05/25 17:55: APTT > 200.0 H* 01/06/25 03:55: WBC 5.1, RBC 3.11 L, Hgb 9.1 L, Hct 28.6 L, MCV 92.0, MCH 29.3, MCHC 31.8 L, RDW Std Deviation 44.8 H, RDW Coeff of Horacio 13.3, Plt Count 220, MPV9.3, APTT 59.3 H, Sodium 139, Potassium 4.5, Chloride 108, Carbon Dioxide 22.2, Anion Gap 9, BUN 17, Creatinine 0.67 L, Estim Creat Clear Calc 78.07, Est GFR (MDRD) Non-Af 100, BUN/Creatinine Ratio 25.1 H, Glucose 102 H, Calcium 8.8 D/C Instructions May shower in (days): 1 Weight Bearing Status: Weight bearing as tolerated Lifting Restrictions: Do not lift greater than 20 pounds for 3 weeks Keep extremity elevated above heart level: Legs (when resting) Call your doctor if your incision/area has: Continuous Slow Oozing, Sudden Increased Bleeding, Increased Pain/ Swelling and Foul Smelling Discharge Call your doctor if you observe: Fever of 101 or Higher and Uncontrolled pain Suture Line Care: Avoid Pulling/Pushing Remove Dressing in: 1 day (OK to leave open to air or re-cover with bandaid if more comfortable; keep clean and dry, do not submerge ) DC O2, CPAP, BIPAP Needs Home O2 Discharge instructions: No Additional Instructions: - You may remove the bandages behind both knees tomorrow; as long as you have nooozing/drainage you may leave these sites open to air. You have a follow-up appointment scheduled in the office 01/14 and the sutures will be removed at thattime. - You may shower tomorrow morning; it is OK for soap/water to rinse over the suture site, pat gently to dry. No baths/swimming or otherwise submerging the sites. - Continue Lovenox 60mg subcutaneously every 12 hours for now. Continue Plavix 75mg daily. - I have sent oxycodone 5mg tablet to be taken by mouth every 8 hours as needed for pain; you may use this in addition to Tylenol. I have also sent a course of Zofran for nausea. - We will plan to recheck your hemoglobin next week to continue to monitor your anemia. - Please call the office at [phone] with any questions/concerns. Please Follow Up With: Martine Power PA When: 01/14/25 Meaningful Use Info Meaningful Use Meaningful Use Diagnoses (Choose all that apply): VTE VTE Anticoag overlap given w/in hospital stay or rx'd at dc?: Yes Pt receive overlap for 5 days?: Yes Discharge Plan Admission Admit Date/Time: 01/04/25 16:12 Attending Provider: Reji Goldberg Primary Care Provider: Jimbo Dash Instructions Additional Instructions / Restrictions: - You may remove the bandages behind both knees tomorrow; as long as you have nooozing/drainage you may leave these sites open to air. You have a follow-up appointment scheduled in the office 01/14 and the sutures will be removed at thattime. - You may shower tomorrow morning; it is OK for soap/water to rinse over the suture site, pat gently to dry. No baths/swimming or otherwise submerging the sites. - Continue Lovenox 60mg subcutaneously every 12 hours for now. Continue Plavix 75mg daily. - I have sent oxycodone 5mg tablet to be taken by mouth every 8 hours as needed for pain; you may use this in addition to Tylenol. I have also sent a course of Zofran for nausea. - We will plan to recheck your hemoglobin next week to continue to monitor your anemia. - Please call the office at [phone] with any questions/concerns. Discharge Orders/Prescriptions Prescriptions: New acetaminophen 325 mg Tablet 650 mg PO Q6H PRN PRN (Reason: Pain 1-10 Or Fever >100.7) Qty: 0 0RF clopidogrel 75 mg Tablet 75 mg PO DAILY Qty: 90 3RF oxycodone 5 mg Tablet 5 mg PO Q8H PRN PRN (Reason: Pain Score 4-10) 5 Days Qty: 15 0RF Continued Zyrtec 10 mg capsule 10 [...] 20 mg Tablet 20 mg PO BID enoxaparin [Lovenox] 60 mg/0.6 mL syringe 60 mg subcut Q12H 30 Days Qty: 36 0RF Slow Fe 137 mg (45 mg iron) tablet extended release 137 mg PO DAILY ondansetron HCl 4 mg tablet 4 mg PO BID PRN PRN (Reason: nausea/vomiting) 5 Days Qty: 10 0RF Referrals / Follow Up: Jimbo Dash MD [Primary Care Provider] - Disposition Disposition (needs filled in before D/C Order can be placed): Home, Self Care 01/06/25 1005 <Electronically signed by Martine KU> Cosigner Signature (if applicable): 01/06/25 1008 <Electronically signed by Reji Goldberg MD> CC: KINGS Sidhu; Dr. Reji Goldberg MD; Dr. Jimbo Dash MD~ Signed [facility] Work Phone: 1(450) 670-791309-10-2025 Progress note Author Martine Power [facility] Note Date/Time January 06, 2025 10:08am [facility] Medical Records Department [address] [place] [address] Progress Note - Surgery 01/06/25 0847 MR#: [id number] Acct: [id number] Name: KAROLINA AHN Rep #:[id number] : 1965 59 From: Martine KU PCP: Dr. Jimbo Dash MD Status:ADM I NO Location: [place] [address] 1 Subjective Subjective I saw Karolina resting comfortably in bed this morning. She has noted improvement inher lower extremity edema and discomfort. Expected discomfort at the popliteal fossa access sites; no bleeding/drainage. She has been ambulating around the room without any issues, tolerating normal diet, no other concerns. She feels ready to go home. Her Hgb was 9.1 this morning from 10.6 at admission. Objective Data Objective Data Vital Signs: Vital Signs Temp Pulse Resp BP Pulse Ox O2 Del Method 98.5 F 71 16 98/62 98 Room Air 01/06/25 07:45 01/06/25 07:45 01/06/25 07:45 01/06/25 07:45 01/06/25 07:45 01/06/25 07:50 Oxygen Delivery Method Room Air Weight: 144 lb Body Mass Index (BMI) 24.7 Intake & Output: Intake and Output for Last 24 Hours 01/04/25 01/05/25 01/06/25 23:59 23:59 23:59 Intake Total 520.75 / 520.75 1490.00 / 1790.00 450 / 450 Balance 520.75 / 520.75 1490.00 / 1790.00 450 / 450 Lab / Micro Data 01/06/25 03:55 01/06/25 03:55 Labs: Laboratory Results - last 24 hr 01/05/25 07:48: APTT 77.1 H, Sodium 139, Potassium 4.0, Chloride 106, Carbon Dioxide 23.6, Anion Gap 10, BUN 19, Creatinine 0.85, Estim Creat Clear Calc 61.54, Est GFR (MDRD) Non-Af 79, BUN/Creatinine Ratio 22.1 H, Glucose 92, Calcium 8.9 01/05/25 12:09: Activated Clotting Time 187 H 01/05/25 17:55: APTT > 200.0 H* 01/06/25 03:55: WBC 5.1, RBC 3.11 L, Hgb 9.1 L, Hct 28.6 L, MCV 92.0, MCH 29.3, MCHC 31.8 L, RDW Std Deviation 44.8 H, RDW Coeff of Horacio 13.3, Plt Count 220, MPV9.3, APTT 59.3 H, Sodium 139, Potassium 4.5, Chloride 108, Carbon Dioxide 22.2, Anion Gap 9, BUN 17, Creatinine 0.67 L, Estim Creat Clear Calc 78.07, Est GFR (MDRD) Non-Af 100, BUN/Creatinine Ratio 25.1 H, Glucose 102 H, Calcium 8.8 Physical Exam Const alert, oriented x3 and no apparent distress General Appearance: cooperative and comfortable HEENT normocephalic, hearing grossly normal bilaterally, external ears normal and external nose normal Eyes General Eye: normal appearance of both eyes Neck General: normal visual inspection and trachea midline Resp normal respiratory effort, normal air movement, no retractions and no use of accessory muscles Effort and Inspection: able to speak in complete sentences; Negative for labored, grunting or stridor Cardio regular rate and regular rhythm Extremity Extremity Narrative: Trace LLE edema Bilateral popliteal fossa puncture sites with pressure dressing C/D/I; no palpable or visible hematoma, no ecchymosis, no bleeding or other drainage, no erythema. Peripheral Pulses: Yes dorsalis pedis pulses present Neuro oriented x3, moves all extremities and no focal motor deficits Speech: speech normal Psych mental status grossly normal Appearance: grossly normal Attitude: calm and engaged Activity / Motor Behavior: appropriate eye contact Speech: normal speech Mood & Affect: euthymic mood Assessment & Plan Assessment/Plan (1) Obstruction of iliac vein: (2) DVT (deep venous thrombosis): QUALIFIERS: DVT location: lower extremity Affected thrombotic vein of extremity: iliac Chronicity: acute Laterality: left Qualified Code(s): I82.422 - Acute embolism and thrombosis of left iliac vein PLAN: Plan She is s/p venogram with thrombectomy left common and external iliac veins and angioplasty bilateral common iliac veins, left external iliac vein 01/05/25. LLE edema and discomfort is improved. Bilateral popliteal fossa access sites satisfactory in appearance without hematoma. No other signs/symptoms of active bleeding. Hgb decreased from 10.6 yesterday to 9.1 today which is expected drop from thrombectomy procedure; will monitor and reassess on an outpatient basis. Will transition from heparin drip back to Lovenox today. Plan is to continued Lovenox 60mg SQ BID + Plavix 75mg daily as an outpatient. Plan for follow-up in the office next week for suture removal. Discharge home today. Charges/Coding Visit Charges Inpatient E&M: 71599 Subs Hosp L1 01/06/25 1002 <Electronically signed by Martine KU> Cosigner Signature (if applicable): 01/06/25 1008 <Electronically signed by Reji Goldberg MD> CC: ~ Signed [facility] Work Phone: 1(407) 760-215909-10-2025 Discharge summary [facility] Medical Records Department [address] [place] [address] Discharge Summary 01/06/25907 MR#: [id number] Acct: [id number] Name: KAROLINA AHN Rep #:[id number] : 1965 59 From: Martine KU PCP: Dr. Jimbo Dash MD Status:ADM I NO Location: [place] [address] Providers Date of Admission: 01/04/25 Primary Care Physician: Dr. Jimbo Dash MD Reason For Visit: Acute embolism and thrombosis of unspecified deep Diagnosis Discharge Diagnosis (1) DVT (deep venous thrombosis): Status: Acute Code(s): I82.409 - Acute embolism and thrombosis of unspecified deep veins of unspecifiedlower extremity Qualifiers: Affected thrombotic vein of extremity: iliac Chronicity: acute DVT location: lower extremity Laterality: left Qualified Code(s): I82.422 - Acute embolism and thrombosis of left iliac vein Medications at Discharge Home Medications sertraline 100 mg tablet 50 mg PO BID anxiety 03/30/14 Cholecalciferol (Vitamin D3) [Vitamin D3] 5,000 unit PO DAILY supplement 03/07/20 cyanocobalamin (vitamin B-12) 5,000 mcg disintegrating tablet 3,000 mcg PO DAILYsupplement 03/07/20 omeprazole 20 mg tablet,delayed release 20 mg PO QHS reflux 03/07/20 pitavastatin calcium 2 mg tablet (Livalo) 4 mg PO QPM cholesterol 02/08/22 cetirizine 10 mg capsule (Zyrtec) 10 mg PO DAILY allergies 04/12/22 dicyclomine 20 mg tablet 20 mg PO BID IBS 10/02/22 tizanidine 2 mg tablet 2 mg PO QHS PRN muscle spasticity #14 tabs 12/10/23 enoxaparin 60 mg/0.6 mL subcutaneous syringe (Lovenox) 60 mg (0.6 mL) subcut Q12H 30 days #36 mL 12/28/24 ferrous sulfate 137 mg (45 mg iron) tablet,extended release (Slow Fe) 137 mg PO DAILY 01/04/25 acetaminophen 325 mg tablet 650 mg (2 x 325 mg) PO Q6H PRN PRN Pain 1-10 Or Fever >100.7 #0 tabs01/06/25 clopidogrel 75 mg tablet 75 mg PO DAILY #90 tabs 01/06/25 ondansetron HCl 4 mg tablet 4 mg PO BID PRN PRN nausea/vomiting 5 days #10 tabs 01/06/25 oxycodone 5 mg tablet 5 mg PO Q8H PRN PRN Pain Score 4-10 5 days #15 tabs 01/06/25 Hospital Course Summary of Care Provided Hospital Course: Karolina Ahn is a 59 y/o female who was admitted 01/04/25 for heparin bridge priorto venogram with left iliac vein thrombectomy and bilateral iliac vein angioplasty on 01/05/25 after which she was kept overnight for monitoring and heparin bridge back to lovenox today 01/06/25. Hgb with expected drop from surgery, otherwise stable. No signs of bleeding at access sites or otherwise. She has had improvement in LLE edema and pain. She has ambulated without difficulty and is tolerating a normal diet. Sheis stable for discharge home today with planned outpatient follow-up next week for suture removal. She will continue with Lovenox BID + Plavix daily. Weight / BMI Weight Weight: 144 lb Body Mass Index (BMI) 24.7 ABG / Lab / Microbiology Data 01/06/25 03:55 01/06/25 03:55 Laboratory: Laboratory Results - last 24 hr 01/05/25 12:09: Activated Clotting Time 187 H 01/05/25 17:55: APTT > 200.0 H* 01/06/25 03:55: WBC 5.1, RBC 3.11 L, Hgb 9.1 L, Hct 28.6 L, MCV 92.0, MCH 29.3, MCHC 31.8 L, RDW Std Deviation 44.8 H, RDW Coeff of Horacio 13.3, Plt Count 220, MPV9.3, APTT 59.3 H, Sodium 139, Potassium4.5, Chloride 108, Carbon Dioxide 22.2, Anion Gap 9, BUN 17, Creatinine 0.67 L, Estim Creat Clear Calc 78.07, Est GFR (MDRD) Non-Af 100, BUN/Creatinine Ratio 25.1 H, Glucose 102 H, Calcium 8.8 D/C Instructions May shower in (days): 1 Weight Bearing Status: Weight bearing as tolerated Lifting Restrictions: Do not lift greater than 20 pounds for 3 weeks Keep extremity elevated above heart level: Legs (when resting) Call your doctor if your incision/area has: Continuous Slow Oozing, Sudden Increased Bleeding, Increased Pain/ Swelling and Foul Smelling Discharge Call your doctor if you observe: Fever of 101 or Higher and Uncontrolled pain Suture Line Care: Avoid Pulling/Pushing Remove Dressing in: 1 day (OK to leave open to air or re-cover with bandaid if more comfortable; keep clean and dry, do not submerge ) DC O2, CPAP, BIPAP Needs Home O2 Discharge instructions: No Additional Instructions: - You may remove the bandages behind both knees tomorrow; as long as you have nooozing/drainage youmay leave these sites open to air. You have a follow-up appointment scheduled in the office 01/14 and the sutures will be removed at thattime. - You may shower tomorrow morning; it is OK for soap/water to rinse over the suture site, pat gently to dry. No baths/swimming or otherwise submerging the sites. - Continue Lovenox 60mg subcutaneously every 12 hours for now. Continue Plavix 75mg daily. - I have sent oxycodone 5mg tablet to be taken by mouth every 8 hours as needed for pain; you may use this in addition to Tylenol. I have also sent a course of Zofran for nausea. - We will plan to recheck your hemoglobin next week to continue to monitor your anemia. - Please call the office at [phone] with any questions/concerns. Please Follow Up With: Martine Power PA When: 01/14/25 Meaningful Use Info Meaningful Use Meaningful Use Diagnoses (Choose all that apply): VTE VTE Anticoag overlap given w/in hospital stay or rx'd at dc?: Yes Pt receive overlap for 5 days?: Yes Discharge Plan Admission Admit Date/Time: 01/04/25 16:12 Attending Provider: Reji Goldberg Primary Care Provider: Jimbo Dash Instructions Additional Instructions / Restrictions: - You may remove the bandages behind both knees tomorrow; as long as you have nooozing/drainage youmay leave these sites open to air. You have a follow-up appointment scheduled in the office 01/14 and the sutures will be removed at thattime. - You may shower tomorrow morning; it is OK for soap/water to rinse over the suture site, pat gently to dry. No baths/swimming or otherwise submerging the sites. - Continue Lovenox 60mg subcutaneously every 12 hours for now. Continue Plavix 75mg daily. - I have sent oxycodone 5mg tablet to be taken by mouth every 8 hours as needed for pain; you may use this in addition to Tylenol. I have also sent a course of Zofran for nausea. - We will plan to recheck your hemoglobin next week to continue to monitor your anemia. - Please call the office at [phone] with any questions/concerns. Discharge Orders/Prescriptions Prescriptions: New acetaminophen 325 mg Tablet 650 mg PO Q6H PRN PRN (Reason: Pain 1-10 Or Fever >100.7) Qty: 0 0RF clopidogrel 75 mg Tablet 75 mg PO DAILY Qty: 90 3RF oxycodone 5 mg Tablet 5 mg PO Q8H PRN PRN (Reason: Pain Score 4-10) 5 Days Qty: 15 0RF Continued Zyrtec 10 mg capsule 10 [...] 20 mg Tablet 20 mg PO BID enoxaparin [Lovenox] 60 mg/0.6 mL syringe 60 mg subcut Q12H 30 Days Qty: 36 0RF Slow Fe 137 mg (45 mg iron) tablet extended release 137 mg PO DAILY ondansetron HCl 4 mg tablet 4 mg PO BID PRN PRN (Reason: nausea/vomiting) 5 Days Qty: 10 0RF Referrals / Follow Up: Jimbo Dash MD [Primary Care Provider] - Disposition Disposition (needs filled in before D/C Order can be placed): Home, Self Care 01/06/25 1005 Cosigner Signature (if applicable): 01/06/25 100 CC: KINGS Sidhu; Dr. Reji Goldberg MD; Dr. Jimbo Dash MD~ Signed [facility]09-10-2025 Progress note [facility] Medical Records Department [address] [place] [address] Progress Note - Surgery 01/06/25 0847 MR#: [id number] Acct: [id number] Name: KAROLINA AHN Rep #:[id number] : 1965 59 From: Martine KU PCP: Dr. Jimbo Dash MD Status:ADM I NO Location: [place] [address] Subjective Subjective I saw Karolina resting comfortably in bed this morning. She has noted improvement inher lower extremityedema and discomfort. Expected discomfort at the popliteal fossa access sites; no bleeding/drainage. She has been ambulating around the room without any issues, tolerating normal diet, no other concerns. She feels ready to go home. Her Hgb was 9.1 this morning from 10.6 at admission. Objective Data Objective Data Vital Signs: Vital Signs Temp Pulse Resp BP Pulse Ox O2 Del Method 98.5 F 71 16 98/62 98 Room Air 01/06/25 07:45 01/06/25 07:45 01/06/25 07:45 01/06/25 07:45 01/06/25 07:45 01/06/25 07:50 Oxygen Delivery Method Room Air Weight: 144 lb Body Mass Index (BMI) 24.7 Intake & Output: Intake and Output for Last 24 Hours 01/04/25 01/05/25 01/06/25 23:59 23:59 23:59 Intake Total 520.75 / 520.75 1490.00 / 1790.00 450 / 450 Balance 520.75 / 520.75 1490.00 / 1790.00 450 / 450 Lab / Micro Data 01/06/25 03:55 01/06/25 03:55 Labs: Laboratory Results - last 24 hr 01/05/25 07:48: APTT 77.1 H, Sodium 139, Potassium 4.0, Chloride 106, Carbon Dioxide 23.6, Anion Gap 10, BUN 19, Creatinine 0.85, Estim Creat Clear Calc 61.54, Est GFR (MDRD) Non-Af 79, BUN/Creatinine Ratio 22.1 H, Glucose 92, Calcium 8.9 01/05/25 12:09: Activated Clotting Time 187 H 01/05/25 17:55: APTT > 200.0 H* 01/06/25 03:55: WBC 5.1, RBC 3.11 L, Hgb 9.1 L, Hct 28.6 L, MCV 92.0, MCH 29.3, MCHC 31.8 L, RDW Std Deviation 44.8 H, RDW Coeff of Horacio 13.3, Plt Count 220, MPV9.3, APTT 59.3 H, Sodium 139, Potassium4.5, Chloride 108, Carbon Dioxide 22.2, Anion Gap 9, BUN 17, Creatinine 0.67 L, Estim Creat Clear Calc 78.07, Est GFR (MDRD) Non-Af 100, BUN/Creatinine Ratio 25.1 H, Glucose 102 H, Calcium 8.8 Physical Exam Const alert, oriented x3 and no apparent distress General Appearance: cooperative and comfortable HEENT normocephalic, hearing grossly normal bilaterally, external ears normal and external nose normal Eyes General Eye: normal appearance of both eyes Neck General: normal visual inspection and trachea midline Resp normal respiratory effort, normal air movement, no retractions and no use of accessory muscles Effort and Inspection: able to speak in complete sentences; Negative for labored, grunting or stridor Cardio regular rate and regular rhythm Extremity Extremity Narrative: Trace LLE edema Bilateral popliteal fossa puncture sites with pressure dressing C/D/I; no palpable or visible hematoma, no ecchymosis, no bleeding or other drainage, no erythema. Peripheral Pulses: Yes dorsalis pedis pulses present Neuro oriented x3, moves all extremities and no focal motor deficits Speech: speech normal Psych mental status grossly normal Appearance: grossly normal Attitude: calm and engaged Activity / Motor Behavior: appropriate eye contact Speech: normal speech Mood & Affect: euthymic mood Assessment & Plan Assessment/Plan (1) Obstruction of iliac vein: (2) DVT (deep venous thrombosis): QUALIFIERS: DVT location: lower extremity Affected thrombotic vein of extremity: iliac Chronicity: acute Laterality: left Qualified Code(s): I82.422 - Acute embolism and thrombosis of left iliac vein PLAN: Plan She is s/p venogram with thrombectomy left common and external iliac veins and angioplasty bilateral common iliac veins, left external iliac vein 01/05/25. LLE edema and discomfort is improved. Bilateral popliteal fossa access sites satisfactory in appearance without hematoma. No other signs/symptomsof active bleeding. Hgb decreased from 10.6 yesterday to 9.1 today which is expected drop from thrombectomy procedure; will monitor and reassess on an outpatient basis. Will transition from heparin drip back to Lovenox today. Plan is to continued Lovenox 60mg SQ BID +Plavix 75mg daily as an outpatient. Plan for follow-up in the office next week for suture removal. Discharge home today. Charges/Coding Visit Charges Inpatient E&M: 84372 Subs Hosp L1 01/06/25 1002 Cosigner Signature (if applicable): 01/06/25 1008 CC: ~ Signed [facility]09-10-2025 [facility] Medical Records Department [address] [place] [address] Discharge Summary 01/06/25 0908 MR#: [id number] Acct: [id number] Name: KAROLINA AHN Rep #: [id number] : 1965 59 From: Martine KU PCP: Dr. Jimbo Dash MD Status:ADM JULIETA Location: [place] [address] Providers Date of Admission: 01/04/25 Primary Care Physician: Dr. Jimbo Dsah MD Reason For Visit: Acute embolism and thrombosis of unspecified deep Diagnosis Discharge Diagnosis (1) DVT (deep venous thrombosis): Status: Acute Code(s): I82.409 - Acute embolism and thrombosis of unspecified deep veins of unspecified lower extremity Qualifiers: Affected thrombotic vein of extremity: iliac Chronicity: acute DVT location: lower extremity Laterality: left Qualified Code(s): I82.422 - Acute embolism and thrombosis of left iliac vein Medications at Discharge Home Medications sertraline 100 mg tablet 50 mg PO BID anxiety 03/30/14 Cholecalciferol (Vitamin D3) [Vitamin D3] 5,000 unit PO DAILY supplement 03/07/20 cyanocobalamin (vitamin B-12) 5,000 mcg disintegrating tablet 3,000 mcg PO DAILY supplement 03/07/20 omeprazole 20 mg tablet,delayed release 20 mg PO QHS reflux 03/07/20 pitavastatin calcium 2 mg tablet (Livalo) 4 mg PO QPM cholesterol 02/08/22 cetirizine 10 mg capsule (Zyrtec) 10 mg PO DAILY allergies 04/12/22 dicyclomine 20 mg tablet 20 mg PO BID IBS 10/02/22 tizanidine 2 mg tablet 2 mg PO QHS PRN muscle spasticity #14 tabs 12/10/23 enoxaparin 60 mg/0.6 mL subcutaneous syringe (Lovenox) 60 mg (0.6 mL) subcut Q12H 30 days #36 mL 12/28/24 ferrous sulfate 137 mg (45 mg iron) tablet,extended release (Slow Fe) 137 mg PO DAILY 01/04/25 acetaminophen 325 mg tablet 650 mg (2 x 325 mg) PO Q6H PRN PRN Pain 1-10 Or Fever >100.7 #0 tabs 01/06/25 clopidogrel 75 mg tablet 75 mg PO DAILY #90 tabs 01/06/25 ondansetron HCl 4 mg tablet 4 mg PO BID PRN PRN nausea/vomiting 5 days #10 tabs 01/06/25 oxycodone 5 mg tablet 5 mg PO Q8H PRN PRN Pain Score 4-10 5 days #15 tabs 01/06/25 Hospital Course Summary of Care Provided Hospital Course: Karolina Ahn is a 59 y/o female who was admitted 01/04/25 for heparin bridge prior to venogram with left iliac vein thrombectomy and bilateral iliac vein angioplasty on 01/05/25 after which she was kept overnight for monitoring and heparin bridge back to lovenox today 01/06/25. Hgb with expected drop from surgery, otherwise stable. No signs of bleeding at access sites or otherwise. She has had improvement in LLE edema and pain. She has ambulated without difficulty and is tolerating a normal diet. She is stable for discharge home today with planned outpatient follow-up next week for suture removal. She will continue with Lovenox BID + Plavix daily. Weight / BMI Weight Weight: 144 lb Body Mass Index (BMI) 24.7 ABG / Lab / Microbiology Data 01/06/25 03:55 01/06/25 03:55 Laboratory: Laboratory Results - last 24 hr 01/05/25 12:09: Activated Clotting Time 187 H 01/05/25 17:55: APTT > 200.0 H* 01/06/25 03:55: WBC 5.1, RBC 3.11 L, Hgb 9.1 L, Hct 28.6 L, MCV 92.0, MCH 29.3, MCHC 31.8 L, RDW Std Deviation 44.8 H, RDW Coeff of Horacio 13.3, Plt Count 220, MPV 9.3, APTT 59.3 H, Sodium 139, Potassium 4.5, Chloride 108, Carbon Dioxide 22.2, Anion Gap 9, BUN 17, Creatinine 0.67 L, Estim Creat Clear Calc 78.07, Est GFR (MDRD) Non-Af 100, BUN/Creatinine Ratio 25.1 H, Glucose 102 H, Calcium 8.8 D/C Instructions May shower in (days): 1 Weight Bearing Status: Weight bearing as tolerated Lifting Restrictions: Do not lift greater than 20 pounds for 3 weeks Keep extremity elevated above heart level: Legs (when resting) Call your doctor if your incision/area has: Continuous Slow Oozing, Sudden Increased Bleeding, Increased Pain/ Swelling and Foul Smelling Discharge Call your doctor if you observe: Fever of 101 or Higher and Uncontrolled pain Suture Line Care: Avoid Pulling/Pushing Remove Dressing in: 1 day (OK to leave open to air or re-cover with bandaid if more comfortable; keep clean and dry, do not submerge ) DC O2, CPAP, BIPAP Needs Home O2 Discharge instructions: No Additional Instructions: - You may remove the bandages behind both knees tomorrow; as long as you have no oozing/drainage you may leave these sites open to air. You have a follow-up appointment scheduled in the office 01/14 and the sutures will be removed at that time. - You may shower tomorrow morning; it is OK for soap/water to rinse over the suture site, pat gently to dry. No baths/swimming or otherwise submerging the sites. - Continue Lovenox 60mg subcutaneously every 12 hours for now. Continue Plavix 75mg daily. - I have sent oxycodone 5mg tablet to be taken by mouth every 8 hours as needed for pain; you may use this in addition to Tylenol. I have also sent a course of Zofran for nausea. (more content not included)...[facility]09-09-2025 Procedure note [facility] Medical Records Department [address] [place] [address] Operative Report 01/05/25 5665 MR#: [id number] Acct: [id number] Name: KAROLINA AHN Rep #:[id number] : 1965 59 From: Reji Goldberg MD PCP: Dr. Jimbo Dash MD Status:ADM I NO Location: [place] [address] Operative Report (Standard) Operative Information Date of Procedure: 01/05/25 Pre-Operative Diagnosis: Deep venous thrombosis of the left iliac and femoral veins Occluded left iliac vein stent Post-Operative Diagnosis: Same Surgery/Procedure Performed: Venogram inferior vena cava and bilateral lower extremities. Intravascular ultrasound inferior vena cava, bilateral common iliac veins, bilateral external iliacveins Percutaneous mechanical thrombectomy the left common and external iliac veins Angioplasty bilateral common iliac veins, left external iliac vein wellness coach: No Type of Anesthesia: Local and Sedation,Conscious Procedure Start Time: 12:00 Procedure Stop Time: 13:30 Select all DRAINS/GRAFTS/IMPLANTS that apply: None Estimated Blood Loss: 500 Specimen collected: No Description of surgery: HPI: Patient is a 59-year-old female who previously had undergone bilateral iliac vein stenting foriliac vein obstruction/compression that had been contributing to her recurrent deep vein thrombosis. She initially presented several weeks prior with recurrence of her left lower extremity DVT and had a thrombectomy performed at outside facility. She had transient improvement in her symptoms with return of pain and swelling while on a trip out of state. Imaging at that time revealed recurrence ofher deep vein thrombosis and she presents now for repeat efforts at thrombectomy. Description of procedure: Upon obtaining informed consent and verification correct patient procedure site the patient taken caliber she was positioned prepped and draped in usual sterile fashion. Timeout was performed and consultation ministered Versed and fentanyl. Skin overlying the left popliteal vein was anesthetized 1% lidocaine the vessel accessed under ultrasound guidancewith a micropuncture needle wire. This then exchanged for a micropuncture sheath routine injection left lower extremity venogram performed revealing satisfactory positioning no extravasation of dissection. There was slu ggish contrast transit but no evidence of thrombus throughout the popliteal and femoral vein. Outflow imaging revealed total occlusion of the proximal common femoral vein and external iliac vein witha significant cross pelvis collateralsemptying into the contralateral iliac system. Through the micr opuncture sheath a Class Central wire advanced the micropuncture of the change for an 8 Nigerian sheath. Through the 8 Nigerian sheath a angled quick cross catheter was advanced and the Bentson exchanged for aglide advantage wire. Utilizing this we able to traverse the occluded segment entering into the iliac vein and ultimately traversing into the vena cava. The catheter is withdrawn and intravascular ultrasound probe advanced and recorded pullback performed of the IVC, left common iliac vein, left external iliac vein, left common femoral vein, left femoral vein. This revealed acute and chronic appearing thrombus in the common femoral and external iliac veins as well as within the previously placed stents. The wire traversed within the true lumen of the stent with no evidence of traversing any stent struts. There is significant compression of the superior aspect of the stent which likely contributed to her most recent thrombotic event. Given the location of the stent compression it was felt that bilateral simultaneous angioplasty would be required so skin overlying the right common femoral vein was anesthetized with 1% lidocaine the vessel accessed under ultrasound guidance with micropuncture needle wire. This then exchanged for a micropuncture sheath through which injection right lowerextremity venogram was performed revealing satisfactory positioning of extravasation or dissection.This also revealed normal contrast transit through normal caliber popliteal and femoral vein with no evidence of thrombus. There was normal outflow via the common femoral vein, external vein, common iliac vein. Micropuncture sheath then exchanged for a 10 Nigerian sheath through which a Bentson wire was advanced traversing the iliac vein stent into the vena cava. The intravascular ultrasound probe was then advanced and recorded pullback performed of the IVC, right common iliac vein, right external neck vein. This confirmed position within the true lumen of the stent with no evidence of any significant in-stent stenosis or thrombus. The patient was then heparinized allowed to circulate for3 minutes with subsequent heparin dosing based on ACT results. The left popliteal 8 Nigerian sheath then exchanged for a 16 Nigerian sheath advanced under fluoroscopic guidance to the superior aspect of the femoral vein. Next the penumbra aspiration thrombectomy device was brought in the field prep for manufactures instructions. Given the compression of the superior aspect of the stent it was felt that pre-balloon at this location was necessary so a 10 mm Bard conquest balloon was advanced in position inflated to nominal for 1 minute then deflated withdrawn. The stent showed much improved expansion atthis location. It was then advanced into position to gauge for multiple passes throughout the common femoral vein, external vein, common iliac vein. Once we had significant signal from the device that we had flow lumen repeat venography was performed which revealed some flow lumen but with significant mural thrombusremaining. Further passes were performed and repeat imaging showed improvement butnot total resolution. The intravascular ultrasound probe was then advanced and recorded pullback performed of the treatment zone which revealed some residual acute thrombus within a majority chronic appearing thrombus within the stent and inferior to it. Given the appearance on the intravascular ultrasound it was felt that the balloon angioplasty of this segment would be of benefit both to potenti ally loosen any retained or acute thrombus or compress any chronic thrombus. Unable to protect contralateral stent a 16 mm Bard [place] balloon was advanced and positioned at the superior aspect of theright iliac vein stent. An 18 mm organized balloon was advanced via the left access sheath and positioned at the superior aspect of the left iliac stent. These were then inflated to nominal simultaneously for multiple inflations at the superior aspect of the stents. Further inferior to the left angioplasty was performed inisolation throughout the entirety of the stented segment and down to the femoralhead. Repeat venogram revealed what appeared to be significant proven in-stent lumen however inferior to the stent with there is now total occlusion likely dueto the intended result of agitating the thrombus at these locations. The penumbra device was then readvanced and further aspiration performed. Repeat venogram revealed satisfactory resolution of the thrombus with now brisk contrast transit through the left external and common iliac veins into the vena cava. Intravascular ultrasound was then readvanced and final recorded pullback performed revealed satisfactory result with no significant bulky thrombus that would impede flow. There was some evidence of compression of the right iliac vein stent at the superior aspect from the balloon manipulations so the 16 mm [place] was then readvanced via the right and inflated to profile and then deflated and withdrawn. Ultrasound evaluation of the right common and external exam revealed satisfactory stent appearance with no compromise of the lumen. Seeing no need for further intervention the wires and catheters were withdrawn. 2-0 silk pur sestring was then placed at the access sites and the sheath withdrawn followed by 5 minutes of manual pressure with satisfactory stasis observed. The patient was then returned to the PCU for bedrest and recovery. Surgical Findings: See above Complications Complications: No 01/05/25 1508 Cosigner Signature (if applicable): CC: Dr. Reji Goldberg MD; Dr. Jimbo Dash MD~ Signed [facility]09-09-2025 Progress note Author Reji Goldberg [facility] Note Date/Time January 05, 2025 11:50am [facility] Medical Records Department [address] [place] [address] Progress Note - Surgery 01/05/25 1148 MR#: [id number] Acct: [id number] Name: KAROLINA AHN Rep #:[id number] : 1965 59 From: Reji Goldberg MD PCP: Dr. Jimbo Dash MD Status:ADM I NO Location: [place] [address] Subjective Subjective Feel a little less edematous. No bleeding overnight. Objective Data Objective Data A&Ox3, NAD RRR Resp non labored trace LLE edema Vital Signs: Vital Signs Temp Pulse Resp BP Pulse Ox O2 Del Method 97.5 F L 75 16 111/62 100 Room Air 01/05/25 09:30 01/05/25 10:00 01/05/25 09:30 01/05/25 09:30 01/05/25 10:00 01/05/25 10:00 Oxygen Delivery Method Room Air Weight: 144 lb Body Mass Index (BMI) 24.7 Intake & Output: Intake and Output for Last 24 Hours 01/03/25 01/04/25 01/05/25 23:59 23:59 23:59 Intake Total 520.75 / 520.75 134.75 / 134.75 Balance 520.75 / 520.75 134.75 / 134.75 Lab / Micro Data 01/05/25 07:48 01/05/25 07:48 Labs: Laboratory Results - last 24 hr 01/04/25 16:36: WBC 4.3 L, RBC 3.63 L, Hgb 10.7 L, Hct 33.3 L, MCV 91.7, MCH 29.5, MCHC 32.1, RDW Std Deviation 45.0 H, RDW Coeff of Horacio 13.4, Plt Count 268,MPV 10.0, Immature Gran % (Auto) 0.200, Neut % (Auto) 61.4, Lymph % (Auto) 23.6,[place] % (Auto) 8.1, Eos % (Auto) 6.2 H, Baso % (Auto) 0.5, Absolute Neuts (auto) 2.7, Absolute Lymphs (auto) 1.02, Nucleated RBC % 0, PT 12.9, INR 1.0, APTT 33.2, Sodium 141, Potassium 4.3, Chloride 105, Carbon Dioxide 25.1, Anion Gap 11, BUN 19, Creatinine 1.26 H, Estim Creat Clear Calc 41.51 L, Est GFR (MDRD) Non-Af 49 L, BUN/Creatinine Ratio 15.3, Glucose 87, Calcium 9.3 01/05/25 00:50: APTT 77.5 H 01/05/25 07:48: WBC 3.8 L, RBC 3.63 L, Hgb 10.6 L, Hct 33.4 L, MCV 92.0, MCH 29.2, MCHC 31.7 L, RDW Std Deviation 44.4 H, RDW Coeff of Horacio 13.3, Plt Count 246, MPV 9.3, Immature Gran % (Auto) 0.500, Neut % (Auto) 49.9, Lymph % (Auto) 30.5, [place] % (Auto) 8.4, Eos % (Auto) 9.9 H, Baso % (Auto) 0.8, Absolute Neuts (auto) 1.9 L, Absolute Lymphs (auto) 1.17, Nucleated RBC % 0, APTT 77.1 H, Sodium 139, Potassium 4.0, Chloride 106, Carbon Dioxide 23.6, Anion Gap 10, BUN 19, Creatinine 0.85, Estim Creat Clear Calc 61.54, Est GFR (MDRD) Non-Af 79, BUN/Creatinine Ratio 22.1 H, Glucose 92, Calcium 8.9 Assessment & Plan Assessment/Plan (1) DVT (deep venous thrombosis): QUALIFIERS: DVT location: lower extremity Affected thrombotic vein of extremity: iliac Chronicity: acute Laterality: left Qualified Code(s): I82.422 - Acute embolism and thrombosis of left iliac vein PLAN: -venogram, thrombectomy 01/05/25 1150 <Electronically signed by Reji Goldberg MD> Cosigner Signature (if applicable): CC: ~ Signed [facility] Work Phone: 1(431) 343-697209-09-2025 Progress note [facility] Medical Records Department [address] [place] [id number] Progress Note - Surgery 01/05/25 1148 MR#: [id number] Acct: [id number] Name: KAROLINA AHN Rep #:[id number] : 1965 59 From: Reji Goldberg MD PCP: Dr. Jimbo Dash MD Status:ADM I NO Location: [place] [address] Subjective Subjective Feel a little less edematous. No bleeding overnight. Objective Data Objective Data A&Ox3, NAD RRR Resp non labored trace LLE edema Vital Signs: Vital Signs Temp Pulse Resp BP Pulse Ox O2 Del Method 97.5 F L 75 16 111/62 100 Room Air 01/05/25 09:30 01/05/25 10:00 01/05/25 09:30 01/05/25 09:30 01/05/25 10:00 01/05/25 10:00 Oxygen Delivery Method Room Air Weight: 144 lb Body Mass Index (BMI) 24.7 Intake & Output: Intake and Output for Last 24 Hours 01/03/25 01/04/25 01/05/25 23:59 23:59 23:59 Intake Total 520.75 / 520.75 134.75 / 134.75 Balance 520.75 / 520.75 134.75 / 134.75 Lab / Micro Data 01/05/25 07:48 01/05/25 07:48 Labs: Laboratory Results - last 24 hr 01/04/25 16:36: WBC 4.3 L, RBC 3.63 L, Hgb 10.7 L, Hct 33.3 L, MCV 91.7, MCH 29.5, MCHC 32.1, RDW Std Deviation 45.0 H, RDW Coeff of Horacio 13.4, Plt Count 268,MPV 10.0, Immature Gran % (Auto) 0.200, Neut % (Auto) 61.4, Lymph % (Auto) 23.6,[place] % (Auto) 8.1, Eos % (Auto) 6.2 H, Baso % (Auto) 0.5, Absolute Neuts (auto) 2.7, Absolute Lymphs (auto) 1.02, Nucleated RBC % 0, PT 12.9, INR 1.0, APTT 33.2, Sodium 141, Potassium 4.3, Chloride 105, Carbon Dioxide 25.1, Anion Gap 11, BUN 19, Creatinine 1.26 H, Estim Creat Clear Calc 41.51 L, Est GFR (MDRD) Non-Af 49 L, BUN/Creatinine Ratio 15.3, Glucose 87, Calcium 9.3 01/05/25 00:50: APTT 77.5 H 01/05/25 07:48: WBC 3.8 L, RBC 3.63 L, Hgb 10.6 L, Hct 33.4 L, MCV 92.0, MCH 29.2, MCHC 31.7 L, RDWStd Deviation 44.4 H, RDW Coeff of Horacio 13.3, Plt Count 246, MPV 9.3, Immature Gran % (Auto) 0.500, Neut % (Auto) 49.9, Lymph % (Auto) 30.5, [place] % (Auto) 8.4, Eos % (Auto) 9.9 H, Baso % (Auto) 0.8, Absolute Neuts (auto) 1.9 L, Absolute Lymphs (auto) 1.17, Nucleated RBC % 0, APTT 77.1 H, Sodium 139,Potassium 4.0, Chloride 106, Carbon Dioxide 23.6, Anion Gap 10, BUN 19, Creatinine 0.85, Estim Creat Clear Calc 61.54, Est GFR (MDRD) Non-Af 79, BUN/Creatinine Ratio 22.1 H, Glucose 92, Calcium 8.9 Assessment & Plan Assessment/Plan (1) DVT (deep venous thrombosis): QUALIFIERS: DVT location: lower extremity Affected thrombotic vein of extremity: iliac Chronicity: acute Laterality: left Qualified Code(s): I82.422 - Acute embolism and thrombosis of left iliac vein PLAN: -venogram, thrombectomy 01/05/25 1150 Cosigner Signature (if applicable): CC: ~ Signed [facility]09-08-2025 History and physical note Author Reji Goldberg [facility] Note Date/Time January 04, 2025 4:32pm [facility] Medical Records Department [address] [place] [address] History & Physical Exam 01/04/25 1622 MR#: [id number] Acct: [id number] Name: KAROLINA AHN Rep #:[id number] : 1965 59 From: Reji Goldberg MD PCP: Dr. 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 Initially thrombosed several weeks prior and underwent thrombectomy at [facility]. She states that her discomfort resolved but leg edema did not. She was discharged on Eliquis loading. A few days after discharge she drove to [place] and shortly after experienced worsening pain/edema. Imaging there revealed recurrence of her thrombus. She wasbriefly placed on heparin and thrombectomy considered though ultimately they discharged her for care here in [place]. Leg edema has persisted since that time, some days better than others. No CP/SOB. She is currently on lovenox at home dueto continued failure to resolve symptoms on Eliquis. Of note, the surgeon in [place] reported significant reduction in thrombus extent at time of venogram. Epistaxis while on Eliquis, resolved now that on lovenox. No hematuria/melena/melena/hemetemesis. Noted to have anemia on recent lab work in ED. [facility] Medical History GERD (gastroesophageal reflux disease) [...] mg PO QPM cholester ol 02/08/22 03/12/24 Hi story (Livalo) cetirizine 10 mg capsule (Zyrtec) 10 mg PO DAILY aller gies 04/12/22 03/13/24 History dicyclomine 20 mg tablet 20 mg PO BID IBS 10/02/22 History alendronate 70 mg tablet 70 mg PO QWEEK bones 4 Unknown History tizanidine 2 mg tablet 2 mg PO QHS PRN muscle spast icity 12/10/23 Unknown Rx #14 tabs clopidogrel 75 mg tablet (Plavix) 75 mg PO DAILY #90 t abs 10/27/24 Unknown Rx enoxaparin 60 mg/0.6 mL 60 mg (0.6 mL) subcut Q12H 3 0 days 12/28/24 Unknown Rx subcutaneous syringe (Lovenox) #36 mL estradiol 0.01% (0.1 mg/gram) 1 vaginal .COMPLEX 12/28 Unknown History vaginal cream Allergy/AdvReac Type Severity Reaction Status Date / Time hydrocodone (From Vicodin) Allergy Nausea/Vom/ Verified 12/28/24 15:07 Diarrhea Family History Mother Colon cancer Cancer ovary Diabetes Father Hypertension Surgical History Hx of bladder repair surgery Hx of cystoscopy Hx of shoulder surgery Hx of colonoscopy S/P rotator cuff repair S/P bunionectomy S/p bilateral carpal tunnel release S/P cholecystectomy S/P hysterectomy Social History household members: spouse housing: house current occupational status: employed Smoking Status: Never smoker alcohol intake: never ROS Constitutional Constitutional: Denies chills, fever(s), frequent falls, lethargy or weakness Eyes Eyes: Denies blind spots, change in vision or loss of vision ENT HEENT: Denies bleeding gums, hoarseness or sore throat Cardiovascular Cardiovascular: Reports leg edema; Denies abdominal pain, bluish discoloration of hand/feet, chest pain with activity, claudication, cold extremities, cyanosis, dyspnea on exertion, erythema on extremities, irregular heart rhythm, leg ulcers, numbness in extremities or weakness in extremities Respiratory/Chest Respiratory/Chest: Denies cough, excessive phlegm production, shortness of breath at rest, shortness of breath with exertion or wheezing Gastrointestinal Gastrointestinal: Denies anorexia, change in stool character, constipation, diarrhea, melena or rectal bleeding Genitourinary Genitourinary: Denies dysuria or hematuria Musculoskeletal Musculoskeletal: Denies abnormal gait Integumentary Integumentary: Denies erythema, non-healing lesions or wounds Neurologic Neurologic: Denies abnormal speech, focal weakness, headache(s), loss of vision,numbness, paresthesias or sensory deficit Hematologic/Lymphatic Hematologic/Lymphatic: Denies easy bleeding, easy bruising or lymphadenopathy Vital Signs Vital Signs Vital Signs: Weight Weight: 144 lb Body Mass Index (BMI) 24.7 Physical Exam Const alert, oriented x3, no apparent distress and healthy appearing General Appearance: cooperative; Negative for combative or lethargic Orientation / Consciousness: awake Exam Limitations: no limitations HEENT Head and Scalp: normocephalic and atraumatic Eyes EOMs intact bilaterally General Eye: normal appearance of both eyes Neck full ROM General: trachea midline Resp normal respiratory effort and no use of accessory muscles Effort and Inspection: Negative for labored, stridor or audible wheezes Cardio regular rate and regular rhythm Peripheral Pulses: brachial pulses present, radial pulses present, popliteal pulses present, posterior tibial pulses present and dorsalis pedis pulses present Back/Spine Cervical Spine: cervical ROM normal Extremity full ROM, normal capillary refill and no clubbing, cyanosis or edema Skin no rashes or lesions noted and no wounds Neuro oriented x3, CN's II-XII intact bilaterally, no focal motor deficits and no sensory deficits noted Psych thought process normal, cooperative, affect normal, speech normal and activity/motor behavior normal Assessment & Plan Assessment/Plan (1) DVT (deep venous thrombosis): QUALIFIERS: DVT location: lower extremity Affected thrombotic vein of extremity: iliac Chronicity: acute Laterality: left Qualified Code(s): I82.422 - Acute embolism and thrombosis of left iliac vein PLAN: -most recent duplex with thrombus in common femoral/external iliac vein -heparin drip -npo at midnight -venogram with thrombectomy/angioplasty tomorrow -cbc today/AM, no overt bleeding concerns to explain anemia; will address if needed 01/04/25 7472 <Electronically signed by Reji Goldberg MD> Cosigner Signature (if applicable): CC: Dr. Reji Goldberg MD; Dr. Jimbo Dash MD~ Signed [facility] Work Phone: 1(448) 237-186709-08-2025 History and physical note [facility] Medical Records Department [address] [place], [place] [id number] History & Physical Exam 01/04/25 1622 MR#: [id number] Acct: [id number] Name: KAROLINA AHN Rep #:[id number] : 1965 59 From: Reji Goldberg MD PCP: Dr. 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 Initially thrombosed several weeks prior and underwent thrombectomy at [facility]. She states that her discomfort resolved but leg edema did not. She was discharged on Eliquis loading. A fewdays after discharge she drove to [place] and shortly after experienced worsening pain/edema. Imaging there revealed recurrence of her thrombus. She wasbriefly placed on heparin and thrombectomy considered though ultimately they discharged her for care here in [place]. Leg edema has persisted since that time, some days better than others. No CP/SOB. She is currently on lovenox at home dueto continued failure to resolve symptoms on Eliquis. Of note, the surgeon in [place] reported significant reduction in thrombus extent at time of venogram. Epistaxis while on Eliquis, resolved now that on lovenox.No hematuria/melena/melena/hemetemesis. Noted to have anemia on recent lab work in ED. [facility] Medical History GERD (gastroesophageal reflux disease) [...] mg PO QPM cholester ol 02/08/22 03/12/24 Hi story (Livalo) cetirizine 10 mg capsule (Zyrtec) 10 mg PO DAILY aller gies 04/12/22 03/13/24 History dicyclomine 20 mg tablet 20 mg PO BID IBS 10/02/22 History alendronate 70 mg tablet 70 mg PO QWEEK bones 4 Unknown History tizanidine 2 mg tablet 2 mg PO QHS PRN muscle spast icity 12/10/23 Unknown Rx #14 tabs clopidogrel 75 mg tablet (Plavix) 75 mg PO DAILY #90 t abs 10/27/24 Unknown Rx enoxaparin 60 mg/0.6 mL 60 mg (0.6 mL) subcut Q12H 3 0 days 12/28/24 Unknown Rx subcutaneous syringe (Lovenox) #36 mL estradiol 0.01% (0.1 mg/gram) 1 vaginal .COMPLEX 12/28 Unknown History vaginal cream Allergy/AdvReac Type Severity Reaction Status Date / Time hydrocodone (From Vicodin) Allergy Nausea/Vom/ Verified 12/28/24 15:07 Diarrhea Family History Mother Colon cancer Cancer ovary Diabetes Father Hypertension Surgical History Hx of bladder repair surgery Hx of cystoscopy Hx of shoulder surgery Hx of colonoscopy S/P rotator cuff repair S/P bunionectomy S/p bilateral carpal tunnel release S/P cholecystectomy S/P hysterectomy Social History household members: spouse housing: house current occupational status: employed Smoking Status: Never smoker alcohol intake: never ROS Constitutional Constitutional: Denies chills, fever(s), frequent falls, lethargy or weakness Eyes Eyes: Denies blind spots, change in vision or loss of vision ENT HEENT: Denies bleeding gums, hoarseness or sore throat Cardiovascular Cardiovascular: Reports leg edema; Denies abdominal pain, bluish discoloration of hand/feet, chest pain with activity, claudication, cold extremities, cyanosis, dyspnea on exertion, erythema on extremities, irregular heart rhythm, leg ulcers, numbness in extremities or weakness in extremities Respiratory/Chest Respiratory/Chest: Denies cough, excessive phlegm production, shortness of breath at rest, shortness of breath with exertion or wheezing Gastrointestinal Gastrointestinal: Denies anorexia, change in stool character, constipation, diarrhea, melena or rectal bleeding Genitourinary Genitourinary: Denies dysuria or hematuria Musculoskeletal Musculoskeletal: Denies abnormal gait Integumentary Integumentary: Denies erythema, non-healing lesions or wounds Neurologic Neurologic: Denies abnormal speech, focal weakness, headache(s), loss of vision,numbness, paresthesias or sensory deficit Hematologic/Lymphatic Hematologic/Lymphatic: Denies easy bleeding, easy bruising or lymphadenopathy Vital Signs Vital Signs Vital Signs: Weight Weight: 144 lb Body Mass Index (BMI) 24.7 Physical Exam Const alert, oriented x3, no apparent distress and healthy appearing General Appearance: cooperative; Negative for combative or lethargic Orientation / Consciousness: awake Exam Limitations: no limitations HEENT Head and Scalp: normocephalic and atraumatic Eyes EOMs intact bilaterally General Eye: normal appearance of both eyes Neck full ROM General: trachea midline Resp normal respiratory effort and no use of accessory muscles Effort and Inspection: Negative for labored, stridor or audible wheezes Cardio regular rate and regular rhythm Peripheral Pulses: brachial pulses present, radial pulses present, popliteal pulses present, posterior tibial pulses present and dorsalis pedis pulses present Back/Spine Cervical Spine: cervical ROM normal Extremity full ROM, normal capillary refill and no clubbing, cyanosis or edema Skin no rashes or lesions noted and no wounds Neuro oriented x3, CN's II-XII intact bilaterally, no focal motor deficits and no sensory deficits noted Psych thought process normal, cooperative, affect normal, speech normal and activity/motor behavior normal Assessment & Plan Assessment/Plan (1) DVT (deep venous thrombosis): QUALIFIERS: DVT location: lower extremity Affected thrombotic vein of extremity: iliac Chronicity: acute Laterality: left Qualified Code(s): I82.422 - Acute embolism and thrombosis of left iliac vein PLAN: -most recent duplex with thrombus in common femoral/external iliac vein -heparin drip -npo at midnight -venogram with thrombectomy/angioplasty tomorrow -cbc today/AM, no overt bleeding concerns to explain anemia; will address if needed 01/04/25 1632 Cosigner Signature (if applicable): CC: Dr. Reji Goldberg MD; Dr. Jimbo Dash MD~ Signed [facility]09-08-2025 [facility] Medical Records Department [address] [place] [address] History Physical Exam 01/04/25 1622 MR#: [id number] Acct: [id number] Name: KAROLINA AHN Rep #: [id number] : 1965 59 From: Reji Goldberg MD PCP: Dr. Jimbo Dash MD Status:ADM JULIETA Location: [place] [address] HPI - General General Date of Admission: 01/04/25 HPI Narrative KAROLINA AHN, is a 59 F who presents with recurrent DVT, currently with thrombosis of left iliac vein stent. Initially thrombosed several weeks prior and underwent thrombectomy at [facility]. She states that her discomfort resolved but leg edema did not. She was discharged on Eliquis loading. A few days after discharge she drove to [place] and shortly after experienced worsening pain/edema. Imaging there revealed recurrence of her thrombus. She was briefly placed on heparin and thrombectomy considered though ultimately they discharged her for care here in [place]. Leg edema has persisted since that time, some days better than others. No CP/SOB. She is currently on lovenox at home due to continued failure to resolve symptoms on Eliquis. Of note, the surgeon in [place] reported significant reduction in thrombus extent at time of venogram. Epistaxis while on Eliquis, resolved now that on lovenox. No hematuria/melena/melena/hemetemesis. Noted to have anemia on recent lab work in ED. [facility] Medical History GERD (gastroesophageal reflux disease) [...] PO DAILY #90 tabs 10/27/24 Unknown Rx enoxaparin 60 mg/0.6 mL 60 mg (0.6 mL) subcut Q12H 30 days 12/28/24 Unknown Rx subcutaneous syringe (Lovenox) #36 mL estradiol 0.01% (0.1 mg/gram) 1 vaginal .COMPLEX 12/28/24 Unknow n History vaginal cream Allergy/AdvReac Type Severity Reaction Status Date / Time hydrocodone (From Vicodin) Allergy Nausea/Vom/ Verified 12/28/24 15:07 Diarrhea Family History Mother Colon cancer Cancer ovary Diabetes Father Hypertension Surgical History Hx of bladder repair surgery Hx of cystoscopy Hx of shoulder surgery Hx of colonoscopy S/P rotator cuff repair S/P bunionectomy S/p bilateral carpal tunnel release S/P cholecystectomy S/P hysterectomy Social History household members: spouse housing: house current occupational status: employed Smoking Status: Never smoker alcohol intake: never ROS Constitutional Constitutional: Denies chills, fever(s), frequent falls, lethargy or weakness Eyes Eyes: Denies blind spots, change in vision or loss of vision ENT HEENT: Denies bleeding gums, hoarseness or sore throat Cardiovascular Cardiovascular: Reports leg edema; Denies abdominal pain, bluish discoloration of hand/feet, chest pain with activity, claudication, cold extremities, cyanosis, dyspnea on exertion, erythema on extremities, irregular heart rhythm, leg ulcers, numbness in extremities or weakness in extremities Respiratory/Chest Respiratory/Chest: Denies cough, excessive phlegm production, shortness of breath at rest, shortness of breath with exertion or wheezing Gastrointestinal Gastrointestinal: Denies anorexia, change in stool character, constipation, diarrhea, melena or rectal bleeding Genitourinary Genitourinary: Denies dysuria or hematuria Musculoskeletal Musculoskeletal: Denies abnormal gait Integumentary Integumentary: Denies erythema, non-healing lesions or wounds Neurologic Neurologic: D (more content not included)...[facility]09-04-2025 Evaluation note* Diagnosis Onset Date Resolution Status Admit Date DVT (deep venous thrombosis) acute December 31, 2024 9:12am Obstruction of iliac vein acute December 31, 2024 9:12am DVT (deep venous thrombosis) acute January 04, 2025 4:12pm Obstruction of iliac vein acute January 04, 2025 4:12pm [facility] Work Phone: 1(237) 157-515509-04-2025 Evaluation note* Diagnosis Onset Date Resolution Status Admit Date Obstruction of iliac vein acute December 31, 2024 9:12am DVT (deep venous thrombosis) inactiv e December 31, 2024 9:12am Obstruction of iliac vein acute January 04, 2025 4:12pm DVT (deep venous thrombosis) inactiv e January 04, 2025 4:12pm [facility] Work Phone: 1(628) 631-473509-04-2025 Evaluation note* Diagnosis Onset Date Resolution Status Admit Date DVT (deep venous thrombosis) acute December 31, 2024 9:12am Obstruction of iliac vein acute December 31, 2024 9:12am DVT (deep venous thrombosis) acute January 04, 2025 4:12pm Obstruction of iliac vein acute January 04, 2025 4:12pm DVT (deep venous thrombosis) acute January 13, 2025 1:45pm Obstruction of iliac vein acute January 13, 2025 1:45pm DVT (deep venous thrombosis) acute January 21, 2025 12:29pm Obstruction of iliac vein acute January 21, 2025 12:29pm [facility] Work Phone: 1(677) 470-550809-01-2025 Discharge summary [facility] Medical Records Department [address] [place] [address] Emergency Department Summary 12/28/24 MR#: [id number] Acct: [id number] Name: KAROLINA AHN Rep #:[id number] : 1965 59 From: Deep Lion MD PCP: Dr. Jimbo Dash MD Status:REG E R Location: ED HPI History of Present Illness Chief Complaint: Lower Extremity Injury Detail of Chief Complaint: Recurrent pain swelling left lower extremity, dyspneaand SANABRIA Informant: patient and spouse/S.O. Onset/Context/Timing Onset: Days Context: Sudden Onset Timing: Continuous Quality: Increasing left lower extremity pain, phlegmasia cerulea dolens Location: Pain Current Severity: Mild Maximum Severity: Moderate Worsened by: Ambulation Relieved by: Nothing Associated Symptoms Associated Symptoms: Dyspnea, dyspnea on exertion Narrative Narrative: Patient is a 59-year-old woman. She has history of recurrent DVT. Patient was seen on December 11 by me. She was diagnosed with an extensive clot that involvedthe left iliac down to her ankle. Patient was treated with apixaban. She is presently on Plavix. She followed up at [facility] and had a thrombectomy done by vascular at [facility]. Patient reports operativereport was sent to Dr. Reji Goldberg. She was cleared to go to [place]. Several days after she was in [place] she developed pain again and swelling. Venous duplex study revealed recurrent clot. She was anticoagulated with heparin. Shewas discharged home. She now presents because of increasing pain swelling discoloration. She is noted to be tachypneic. Patient reports shortness of breath just walking up the incline to the emergency department. She does not have pleuritic pain. She has not missed any of her apixabandoses. Patient denies paresthesia, anesthesia or motor weakness. Patient's prior records reviewed. Records from [facility] was reviewed. She had a copy of the records from [place]. Dr. Goldberg confirmed that he is aware of the recurrent clots. This is in spite of patient being on apixaban and Plavix. Prior similar symptoms: Yes Recent Illness/[facility]: [facility] Medical History GERD (gastroesophageal reflux disease) [...] mg PO DAILY aller gies 04/12/22 03/13/24 History dicyclomine 20 mg tablet [...] oxycodone 10 mg tablet,crush 10 mg PO BID 4 days #8 ta bs 12/11/24 Unknown Rx resistant,extended release 12 hr oxycodone-acetaminophen 5 mg-325 1 tab PO Q6H PRN PRN pain 5 days 12/11/24 Unknown Rx mg tablet #20 TABLETS enoxaparin 60 mg/0.6 mL 60 mg (0.6 mL) subcut Q12H 3 0 days 12/28/24 Unknown Rx subcutaneous syringe (Lovenox) #36 mL Allergy/AdvReac Type Severity Reaction Status Date / Time hydrocodone (From Vicodin) Allergy Nausea/Vom/ Verified 12/28/24 15:07 Diarrhea Family History Mother Colon cancer Cancer [...] Constitutional Constitutional ED: Denies chills, fever(s) or subjective Eyes Eyes: Denies change in vision Cardiovascular Cardiovascular: Denies chest pain, orthopnea, palpitations, paroxysmal nocturnaldyspnea or racing heartbeat Respiratory/Chest Respiratory/Chest: Reports dyspnea and dyspnea on exertion; Denies cough, orthopnea or paroxysmal nocturnal dyspnea Gastrointestinal Gastrointestinal: Denies abdominal pain, nausea or vomiting Musculoskeletal Musculoskeletal: Denies back pain Integumentary Denies rash Neurologic Neurologic: Denies paresthesias or weakness Hematologic/Lymphatic Hematologic/Lymphatic: Reports easy bruising EXAM Physical Exam Const Vital Signs: 12/28/24 15:05 Temperature 98 F Temperature Source Oral Pulse Rate 89 Respiratory Rate 20 H Blood Pressure 122/68 H Blood Pressure Mean 86 Pulse Ox 98 Oxygen Delivery Method Room Air Positive well nourished and well developed Constitutional Narrative: Patient is tachypneic. She does complain of shortness of breath with minimal activity. She was quite winded walking up the incline to get to the emergency room. Estimate incline is less than 5%. General Appearance ED: well developed; Negative for cyanotic or diaphoretic HEENT Reports moist mucous membranes HEENT Narrative: Is atraumatic and normocephalic. Ears normal. Nares patent Eyes PERRL and EOMs intact bilaterally General Eye ED: Negative for pale conjunctiva or scleral icterus Neck no lymphadenopathy, supple and no JVD Resp normal respiratory effort and clear to auscultation bilaterally Cardio regular rate, regular rhythm, S1 normal heart sound, S2 normal heart sound and no murmurs GI normal to inspection, nondistended, normoactive bowel sounds, non-tender, non- distended and no masses; Negative for hepatosplenomegaly Extremity Negative for normal to inspection Extremity Narrative: Patient has a swollen discolored left lower extremity compared to the right. There is no neurovascular compromise. Patient is complaining of pain in the groin region. Neuro oriented x3 and CN's II-XII intact bilaterally Sensorium / Orientation: alert Psych mental status grossly normal Skin no rashes or lesions noted, no wounds and skin turgor normal MDM MDM MDM Narrative Medical decision making narrative: Concern patient has recurrent clots. With her being tachypneic, dyspneic and SANABRIA plan is to get a CTA and baseline blood work. If she has a PE per discussion with Dr. Reji Goldberg discontinue apixabanplaced on heparin and he will see her tomorrow after venous duplex study to determine treatment options. If negative plan is outpatient venous duplex study with report to Dr. Goldberg andrichard from apixaban to Lovenox. History & Record Review Additional record(s) reviewed:: Prior inpatient record (Documented in HPI narrative), Prior outpatient record (Documented HPI narrative), Prior ED visit (Documented HPI narrative) and Prior labs Lab Data Attestation: I reviewed the patient's lab results. Lab results narrative: CBC is remarkable for a hemoglobin of 10.6 and 32.9. Indices are normal. Basicmetabolic panel reveals a normal BUN to creatinine ratio. Glucose is slightly elevated 123. Labs: Laboratory Results - last 24 hr 12/28/24 15:30 WBC 4.9 RBC 3.60 L Hgb 10.6 L Hct 32.9 L MCV 91.4 MCH 29.4 MCHC 32.2 RDW Std Deviation 44.7 H RDW Coeff of Horacio 13.5 Plt Count 356 MPV 9.1 Immature Gran % (Auto) 0.400 Neut % (Auto) 69.6 Lymph % (Auto) 18.4 L [place] % (Auto) 5.9 Eos % (Auto) 5.1 H Baso % (Auto) 0.6 Absolute Neuts (auto) 3.4 Absolute Lymphs (auto) 0.90 Nucleated RBC % 0 Sodium 142 Potassium 3.9 Chloride 108 Carbon Dioxide 22.6 Anion Gap 11 BUN 16 Creatinine 0.85 Estim Creat Clear Calc 64.12 Est GFR (MDRD) Non-Af 79 BUN/Creatinine Ratio 18.5 Glucose 123 H Calcium 9.0 If radiologist agrees there is no evidence of PE or any pulmonary pathology suspect patient's dyspnea is due to your gram and her hemoglobin since December 11. Radiography Diagnostic Testing: Clinical Impression(s) from Imaging Studies Chest CTA 12/28/24 15:20 IMPRESSION: No acute pulmonary emboli. No focal consolidations. Reading Location: [facility] CTA of the chest reveals no obvious pulmonary embolus. There is no effusion. There is no pneumothorax. Awaiting formal read by radiologist 1553. Treatment and Re-Evaluation :: Spoke with Dr. Goldberg and informed him of the CT results and her laboratory results. Plan is discharge to home Lovenox 1 mg/kg twice a day. She is to discontinue the apixaban. Venous duplex study in the morning. He will contact her and make appropriate arrangements to workup her anemia and discuss t reatmentoptions regarding her recurrent clot Discharge Plan Triage Chief Complaint: Lower Extremity Injury ED Provider: Deep Lion Dx/Rx/DC Orders Clinical Impression: Symptomatic anemia, Phlegmasia cerulea dolens of left lower extremity, Acute anemia Instructions: Anemia, DVT Dc Prescriptions: New enoxaparin [Lovenox] 60 mg/0.6 mL syringe 60 mg subcut Q12H 30 Days Qty: 36 0RF No Action Zyrtec 10 mg capsule [...] 20 mg Tablet 20 mg PO BID Eliquis DVT-PE Treat 30D Start 5 mg (74 tabs) Tablets,Dose Pack See Rx Instructions .ROUTE .COMPLEX Qty: 74 0RF Rx Instructions: orally per package directions oxycodone-acetaminophen 5-325 mg tablet 1 tab PO Q6H PRN PRN (Reason: pain) 5 Days Qty: 20 0RF oxycodone 10 mg tablet,oral only,ext.rel.12 hr 10 mg PO BID 4 Days Qty: 8 0RF alendronate 70 mg tablet 70 mg PO QWEEK clopidogrel [Plavix] 75 mg tablet 75 mg PO DAILY Qty: 90 3RF Primary Care Provider: Jimbo Dash Referrals: Jimbo Dash MD [Primary Care Provider] - Activity Restrictions/Additional Instructions: 1. Dr. Reji Goldberg will contact you after he reviews your venous duplex study that is ordered for tomorrow morning. 2. Discontinue the apixaban. 3. A prescription for Lovenox was sent to your pharmacy. Start the Lovenox this evening. Print Language: Liberian Disposition Disposition: Home, Self Care What to do if you have Problems For any increased pain, shortness of breath, bleeding, nausea or vomiting, chestpain, or any unexpected problems, contact your Primary Care Provider. Call [facility] ([phone]) or report tothe closest Emergency Room. Call 911 if necessary. 12/28/24 1649 Cosigner Signature (if applicable): CC: Dr. Jimbo Dash MD ~ Signed [facility]09-01-2025 Radiology Diagnostic study note [facility] Imaging Services [address] [place] [address] CTA Chest W/WO Contrast MR#: [id number] Acct: [id number] Name: KAROLINA AHN Rep #: [id number] : 1965 F 59 From: Jessica Frank MD PCP: Dr. Jimbo Dash MD Status: REG E R Study:CTA Chest W/WO Contrast Date of Exam: 12/28/24 Exam# [id number] Ordering Dr: Ashu Lion MD PROCEDURE: CTA CHEST W/WO CONTRAST 12/28/2024 REASON FOR EXAM: TACHYPNEA, SANABRIA, PHLEGMASIA CERULEA DOLENS ON APIXA TECHNIQUE: Procedure Code: CTCTACHWW Modality: CT Procedure: CTA CHEST W/WO CONTRAST Multiplanar Sagittal and Coronal images were obtained. CONTRAST: 100 mL of Isovue 370 One or more dose reduction techniques were used (e.g., Automated exposure control, adjustment of the mA and/or kV according to patient size, use of iterative reconstruction technique). RADIATION DOSE SUMMARY: DLP: 798 mGycm COMPARISON: none FINDINGS: PULMONARY ARTERIES: No evidence of pulmonary embolism. LUNGS AND PLEURA: No consolidations. No definite pulmonary edema. No mass or nodule. No pleural effusion. No pneumothorax. MEDIASTINUM: No lymphadenopathy or mass. The heart shows no acute findings. The aorta shows no acute findings. The pulmonary trunk, and branches of the vessels in the mediastinum are within normal limits. SUPRACLAVICULAR AND AXILLARY: No abnormalities seen in these regions. No mass or significant lymphadenopathy. UPPER ABDOMEN: The visualized upper abdomen is unremarkable. BONES AND SOFT TISSUES: The ribs are unremarkable. The visualized spine shows no significant acute findings. No focal bony mass lesions noted. The subcutaneous soft tissues are unremarkable. CT/CTA Chest W/WO Contrast IMPRESSION: No acute pulmonary emboli. No focal consolidations. Reading Location: [facility] CC: Dr. Jimbo Dash MD; Dr. Deep Lion MD ~ Environmental Compliance Officer: Signed [facility]09-01-2025 Discharge summary Author Deep Lion [facility] Note Date/Time December 28, 2024 4:48pm [facility] Medical Records Department [address] [place] [address] Emergency Department Summary 12/28/24 MR#: [id number] Acct: [id number] Name: KAROLINA AHN Rep #:[id number] : 1965 59 From: Deep Lion MD PCP: Dr. Jimbo Dash MD Status:REG E R Location: ED HPI History of Present Illness Chief Complaint: Lower Extremity Injury Detail of Chief Complaint: Recurrent pain swelling left lower extremity, dyspneaand SANABRIA Informant: patient and spouse/S.O. Onset/Context/Timing Onset: Days Context: Sudden Onset Timing: Continuous Quality: Increasing left lower extremity pain, phlegmasia cerulea dolens Location: Pain Current Severity: Mild Maximum Severity: Moderate Worsened by: Ambulation Relieved by: Nothing Associated Symptoms Associated Symptoms: Dyspnea, dyspnea on exertion Narrative Narrative: Patient is a 59-year-old woman. She has history of recurrent DVT. Patient was seen on December 11 by me. She was diagnosed with an extensive clot that involvedthe left iliac down to her ankle. Patient was treated with apixaban. She is presently on Plavix. She followed up at [facility] and had a thrombectomy done by vascular at [facility]. Patient reports operativereport was sent to Dr. Reji Goldberg. She was cleared to go to [place]. Several days after she was in [place] she developed pain again and swelling. Venous duplex study revealed recurrent clot. She was anticoagulated with heparin. Shewas discharged home. She now presents because of increasing pain swelling discoloration. She is noted to be tachypneic. Patient reports shortness of breath just walking up the incline to the emergency department. She does not have pleuritic pain. She has not missed any of her apixaban doses. Patient denies paresthesia, anesthesia or motor weakness. Patient's prior records reviewed. Records from [facility] was reviewed. She had a copy of the records from [place]. Dr. Goldberg confirmed that he is aware of the recurrent clots. This is in spite of patient being on apixaban and Plavix. Prior similar symptoms: Yes Recent Illness/Hospitalization: Yes [facility] Medical History GERD (gastroesophageal reflux disease) [...] mg PO DAILY aller gies 04/12/22 03/13/24 History dicyclomine 20 mg tablet [...] .Route 12/11/24 Unknown Rx a dose pack ([employer] DVT-PE Treat .COMPLEX #74 tabs 30D Start) oxycodone 10 mg tablet,crush 10 mg PO BID 4 days #8 ta bs 12/11/24 Unknown Rx resistant,extended release 12 hr oxycodone-acetaminophen 5 mg-325 1 tab PO Q6H PRN PRN pain 5 days 12/11/24 Unknown Rx mg tablet #20 TABLETS enoxaparin 60 mg/0.6 mL 60 mg (0.6 mL) subcut Q12H 3 0 days 12/28/24 Unknown Rx subcutaneous syringe (Lovenox) #36 mL Allergy/AdvReac Type Severity Reaction Status Date / Time hydrocodone (From Vicodin) Allergy Nausea/Vom/ Verified 12/28/24 15:07 Diarrhea Family History Mother Colon cancer Cancer [...] Constitutional Constitutional ED: Denies chills, fever(s) or subjective Eyes Eyes: Denies change in vision Cardiovascular Cardiovascular: Denies chest pain, orthopnea, palpitations, paroxysmal nocturnaldyspnea or racing heartbeat Respiratory/Chest Respiratory/Chest: Reports dyspnea and dyspnea on exertion; Denies cough, orthopnea or paroxysmal nocturnal dyspnea Gastrointestinal Gastrointestinal: Denies abdominal pain, nausea or vomiting Musculoskeletal Musculoskeletal: Denies back pain Integumentary Denies rash Neurologic Neurologic: Denies paresthesias or weakness Hematologic/Lymphatic Hematologic/Lymphatic: Reports easy bruising EXAM Physical Exam Const Vital Signs: 12/28/24 15:05 Temperature 98 F Temperature Source Oral Pulse Rate 89 Respiratory Rate 20 H Blood Pressure 122/68 H Blood Pressure Mean 86 Pulse Ox 98 Oxygen Delivery Method Room Air Positive well nourished and well developed Constitutional Narrative: Patient is tachypneic. She does complain of shortness of breath with minimal activity. She was quite winded walking up the incline to get to the emergency room. Estimate incline is less than 5%. General Appearance ED: well developed; Negative for cyanotic or diaphoretic HEENT Reports moist mucous membranes HEENT Narrative: Is atraumatic and normocephalic. Ears normal. Nares patent Eyes PERRL and EOMs intact bilaterally General Eye ED: Negative for pale conjunctiva or scleral icterus Neck no lymphadenopathy, supple and no JVD Resp normal respiratory effort and clear to auscultation bilaterally Cardio regular rate, regular rhythm, S1 normal heart sound, S2 normal heart sound and no murmurs GI normal to inspection, nondistended, normoactive bowel sounds, non-tender, non-distended and no masses; Negative for hepatosplenomegaly Extremity Negative for normal to inspection Extremity Narrative: Patient has a swollen discolored left lower extremity compared to the right. There is no neurovascular compromise. Patient is complaining of pain in the groin region. Neuro oriented x3 and CN's II-XII intact bilaterally Sensorium / Orientation: alert Psych mental status grossly normal Skin no rashes or lesions noted, no wounds and skin turgor normal MDM MDM MDM Narrative Medical decision making narrative: Concern patient has recurrent clots. With her being tachypneic, dyspneic and [place] plan is to get a CTA and baseline blood work. If she has a PE per discussion with Dr. Reji Goldberg discontinue apixaban placed on heparin and he will see her tomorrow after venous duplex study to determine treatment options. If negative plan is outpatient venous duplex study with report to Dr. Goldberg andrichard from apixaban to Lovenox. History & Record Review Additional record(s) reviewed:: Prior inpatient record (Documented in HPI narrative), Prior outpatient record (Documented HPI narrative), Prior ED visit (Documented HPI narrative) and Prior labs Lab Data Attestation: I reviewed the patient's lab results. Lab results narrative: CBC is remarkable for a hemoglobin of 10.6 and 32.9. Indices are normal. Basicmetabolic panel reveals a normal BUN to creatinine ratio. Glucose is slightly elevated 123. Labs: Laboratory Results - last 24 hr 12/28/24 15:30 WBC 4.9 RBC 3.60 L Hgb 10.6 L Hct 32.9 L MCV 91.4 MCH 29.4 MCHC 32.2 RDW Std Deviation 44.7 H RDW Coeff of Horacio 13.5 Plt Count 356 MPV 9.1 Immature Gran % (Auto) 0.400 Neut % (Auto) 69.6 Lymph % (Auto) 18.4 L [place] % (Auto) 5.9 Eos % (Auto) 5.1 H Baso % (Auto) 0.6 Absolute Neuts (auto) 3.4 Absolute Lymphs (auto) 0.90 Nucleated RBC % 0 Sodium 142 Potassium 3.9 Chloride 108 Carbon Dioxide 22.6 Anion Gap 11 BUN 16 Creatinine 0.85 Estim Creat Clear Calc 64.12 Est GFR (MDRD) Non-Af 79 BUN/Creatinine Ratio 18.5 Glucose 123 H Calcium 9.0 If radiologist agrees there is no evidence of PE or any pulmonary pathology suspect patient's dyspnea is due to your gram and her hemoglobin since December 11. Radiography Diagnostic Testing: Clinical Impression(s) from Imaging Studies Chest CTA 12/28/24 15:20 IMPRESSION: No acute pulmonary emboli. No focal consolidations. Reading Location: [facility] CTA of the chest reveals no obvious pulmonary embolus. There is no effusion. There is no pneumothorax. Awaiting formal read by radiologist [id number]. Treatment and Re-Evaluation :: Spoke with Dr. Goldberg and informed him of the CT results and her laboratory results. Plan is discharge to home Lovenox 1 mg/kg twice a day. She is to discontinue the apixaban. Venous duplex study in the morning. He will contact her and make appropriate arrangements to workup her anemia and discuss treatmentoptions regarding her recurrent clot Discharge Plan Triage Chief Complaint: Lower Extremity Injury ED Provider: Deep Lion Dx/Rx/DC Orders Clinical Impression: Symptomatic anemia, Phlegmasia cerulea dolens of left lower extremity, Acute anemia Instructions: Anemia, DVT Dc Prescriptions: New enoxaparin [Lovenox] 60 mg/0.6 mL syringe 60 mg subcut Q12H 30 Days Qty: 36 0RF No Action Zyrtec 10 mg capsule [...] 20 mg Tablet 20 mg PO BID Eliquis DVT-PE Treat 30D Start 5 mg (74 tabs) Tablets,Dose Pack See Rx Instructions .ROUTE .COMPLEX Qty: 74 0RF Rx Instructions: orally per package directions oxycodone-acetaminophen 5-325 mg tablet 1 tab PO Q6H PRN PRN (Reason: pain) 5 Days Qty: 20 0RF oxycodone 10 mg tablet,oral only,ext.rel.12 hr 10 mg PO BID 4 Days Qty: 8 0RF alendronate 70 mg tablet 70 mg PO QWEEK clopidogrel [Plavix] 75 mg tablet 75 mg PO DAILY Qty: 90 3RF Primary Care Provider: Jimbo Dash Referrals: Jimbo Dash MD [Primary Care Provider] - Activity Restrictions/Additional Instructions: 1. Dr. Reji Goldberg will contact you after he reviews your venous duplex study that is ordered for tomorrow morning. 2. Discontinue the apixaban. 3. A prescription for Lovenox was sent to your pharmacy. Start the Lovenox this evening. Print Language: Liberian Disposition Disposition: Home, Self Care What to do if you have Problems For any increased pain, shortness of breath, bleeding, nausea or vomiting, chestpain, or any unexpected problems, contact your Primary Care Provider. Call [facility] ([phone]) or report to the closest Emergency Room. Call 911 if necessary. 12/28/24 6648 <Electronically signed by Deep Lion MD> Cosigner Signature (if applicable): CC: Dr. Jimbo Dash MD ~ Signed [facility] Work Phone: [phone]) 636-901808-27-2025 Telephone encounter Note* Telephone Encounter - Saul Abbasi - 12/23/2024 3:23 PM EDT Patient has been scheduled in first available conference slot available after her appt with vascular. Saul Abbasi [facility]08-27-2025 Miscellaneous Notes* Telephone Encounter - Saul Abbasi - 12/23/2024 3:23 PM EDT Patient has been scheduled in first available conference slot available after her appt with vascular. Saul Abbasi documented in this [facility] Nurse Note* Veronika Short RN - 12/17/2024 5:50 PM EDT arrived and taken to discharge [id number]* Veronika Short RN - 12/17/2024 5:50 PM EDT arrived and taken to discharge * Veronika Short RN - 12/17/2024 2:02 PM EDT Patient has been aware of discharge. She states her will probably come around 1700 * Veronika Short RN - 12/17/2024 10:52 AM EDT Pressure dressing remains dry and intact * Veronika Short RN - 12/17/2024 10:27 AM EDT Pressure dressing has been in place for 5 minutes. No bleeding noted at this time but will monitor. * Veronika Short RN - 12/17/2024 9:35 AM EDT Patient called stating she was bleeding. Patient [...] were able to come and see her. * Veronika Short RN - 12/17/2024 7:52 AM EDT Patient in bed. Denies any complaints at this time. Call light in reach * Fabby Uribe RN - 12/17/2024 5:28 AM EDT Updated HOSPITALIST PROGRAM DIRECTOR Billy on pt current bp status. Last bp 92/54 MAP of 67. * Veronika Short RN - 12/16/2024 5:49 PM EDT Patient blood pressure 90/55(63). She feels fine no complaints in talking with family. Left leg with deja wrap intact no bleeding noted. Dr Shields * Veronika Short RN - 12/16/2024 2:20 PM EDT Patient heparin restarted per order now that she is back from surgery. She did go to surgery shortly after last PTT drawn and gtt was stopped when she went per surgery * Veronika Short RN - 12/16/2024 2:05 PM EDT Patient returned from PACU. She is alert and oriented. She states she currently is having no pain. Deja wrap to left leg dry and intact. Call light in reach and family at bedside * Veronika Short RN - 12/16/2024 11:48 AM EDT To or documented in this [facility]08-21-2025 Nurse Note* Veronika Short RN - 12/17/2024 2:02 PM EDT Patient has been aware of discharge. She states her will probably come around 1700 [facility]18-[facility]-0564 NoteHospitalist Discharge Summary Karolina Ahn : 1965 Admit [...] hematochezia. Patient follows with Dr. Goldberg at [facility] and is scheduled for thrombectomy and heparin [...] CALCIUM 8.9 8.7 8.6 Recent Labs 12/15/24 0612/16/24 0522 12/17/24 0735 WBC 6.1 5.7 7.1 [...] Your Medications These medications were sent to [facility] [address] [place] [address] Hours: Saturday to Saturday 10 am to 6 pm apixaban 5 MG tablet Recommended Follow-up: Charissa Short MD [address] [address] Schedule an appointment as soon as possible for a v (more content not included)...[facility]08-21-2025 Hospital course Narrative* Alen Ordonez DO - 12/17/2024 11:57 AM EDT Hospitalist Discharge Summary Karolina Ahn : 1965 Admit date: 12/14/2024 Discharge date: 12/17/2024 Admitting Physician: Alen Ordonez DO Primary Care Physician: No primary care provider on file. 9-year-old female presents with left lower extremity pain and edema. In 2022 patient had stents placed and was on placed on Plavix at that time. Prior to that patient was on Eliquis and then switchedfrom Eliquis to Plavix after stents placement. Patient has a history of DVT and was on Plavix however in December 11 had right lower extremity edemadiagnosed with new DVT and was started on Eliquis. Since being on Eliquis she has has had worseningof right lower extremity edema no improvement. Denies chest pain shortness of breath abdominal painnausea vomiting diarrhea lightheadedness dizziness hematuria hematochezia. Patient follows with at [facility] and is scheduled for thrombectomy and heparin [...] evidence of DVT or superficial vein thrombosis inright lower extremity . December 16 MECHANICAL THROMBECTOMY [...] above and medication adjustments below in med rec.Thepatient is discharged in improved and stable condition. [...] CALCIUM 8.9 8.7 8.6 Recent Labs 12/15/24 0612/16/24 0522 12/17/24 0735 WBC 6.1 5.7 7.1 [...] Your Medications These medications were sent to [facility] [address] [place], [place] [id number] Hours: Saturday to Saturday 10 am to 6 pm apixaban 5 MG tablet Recommended Follow-up: Charissa Short MD [address] [place] [id number] Schedule an appointment as soon as possible for a visit Complexity of Follow up: [] Moderate Complexity: follow up within 7-14 calendar days (76644) [x] Severe Complexity: follow up within 7 calendar days (18543) Follow up Testing, Pending results or Referrals [...] frame. Signed: Alen Ordonez DO [facility] 12/17/2024, 12:13 PM documented in this [facility]08-21-2025 Nurse Note* Veronika Short RN - 12/17/2024 10:52 AM EDT Pressure dressing remains dry and intact [facility]Wkrpmd51-94-5673 Nurse Note* Veronika Short RN - 12/17/2024 10:27 AM EDT Pressure dressing has been in place for 5 minutes. No bleeding noted at this time but will monitor. [facility]Mjvbhn92-73-5263 Nurse Note* Veronika Short RN - 12/17/2024 9:35 AM EDT Patient called stating she was bleeding. Patient [...] were able to come and see her. [facility]Djsvpy20-50-1380 Nurse Note* Veronika Short RN - 12/17/2024 7:52 AM EDT Patient in bed. Denies any complaints at this time. Call light in reach [facility] HospitalTmsizf14-08-1313 History of Present illness Narrative* Yousuf Rico MD - 12/17/2024 7:03 AM EDT Images from the original note were not [...] from vascular perspective, follow-up with Dr. Goldberg ([place]) or Dr. Short - Vascular to sign off, please call with questions or concerns WDW Dr. Carolyn Rico MD General Surgery PGY-3 Pager [phone] [1] atorvastatin, 40 mg, Oral, Nightly dicyclomine, 20 mg, Oral, Daily pantoprazole, 40 mg, Oral, qAM AC sertraline, 50 mg, Oral, BID sodium chloride 0.9%, 10 mL, IntraVENous, 2 times per day [2] heparin, 5-30 Units/kg/hr, Last Rate: 16 Units/kg/hr (12/16/241915) [3] PRN medications: acetaminophen, heparin, heparin, naloxone, ondansetron ODT OR ondansetron,oxyCODONE OR oxyCODONE, polyethylene glycol (PEG) 3350, sodium [...] up with us or the patient may followup with Dr. Goldberg if she desires. * Alen Ordonez, DO - 12/16/2024 12:04 PM EDT Hospitalist Progress Note 12/16/2024 Subjective: Admit Date: [...] in December 11 had right lower extremity edemadiagnosed with new DVT and was started on Eliquis. Since being on Eliquis she has has had worseningof right lower extremity edema no improvement. Denies chest pain shortness of breath abdominal painnausea vomiting diarrhea lightheadedness dizziness hematuria hematochezia. Patient follows with at [facility] and is scheduled for thrombectomy and heparin [...] evidence of DVT or superficial vein thrombosis inright lower extremity . December 16 MECHANICAL THROMBECTOMY LEFT ILIAC VEIN Acute DVT, left lower extremity History of DVT Abnormal troponin Denies CP SOB Extended Emergency Contact Information Primary Emergency Contact: Charles Ahn Mobile Relation: Spouse Preferred language: Liberian Polishing Machine Operator needed? No Alen Ordonez DO Division of Hospitalist Medicine [facility] [1] History reviewed. No pertinent past [...] Units/kg/hr, Last Rate: 16 Units/kg/hr (12/16/24 0717) * Dayanara Herbert - 12/16/2024 9:10 AM EDT Nutrition rescreen completed. Chart reviewed. Patient to be monitored and followed by the diet alignment technician. * Gala Pa MD - 12/16/2024 6:36 AM EDT Images from the original note were not [...] acute left dvt of ileofemoral system. - Eliqudevang held, Cont on hep gtt, aptts therapeutic - thrombectomy today, informed consent obtained - npo for procedure - continue elevation and compression - remainder per primary - will follow Gaal Pa MD PGY-4, General Surgery Pager# [phone] 12/16/2024 6:37 AM [1] atorvastatin, 40 mg, [...] satisfaction and she has elected to proceed. * Alen Ordonez DO - 12/15/2024 10:46 AM EDT Hospitalist Progress Note 12/15/2024 Subjective: Admit Date: [...] hematochezia. Patient follows with Dr. Goldberg at [facility] and is scheduled for thrombectomy and heparin [...] Position: Sitting) Pulse 60 Temp 36.7 C (98.1F) (Temporal) Resp 16 Ht 5' 4 (1.626 [...] in December 11 had right lower extremity edemadiagnosed with new DVT and was started on Eliquis. Since being on Eliquis she has has had worseningof right lower extremity edema no improvement. Denies chest pain shortness of breath abdominal painnausea vomiting diarrhea lightheadedness dizziness hematuria hematochezia. Patient follows with at [facility] and is scheduled for thrombectomy and heparin [...] evidence of DVT or superficial vein thrombosis inright lower extremity Acute DVT, left lower extremity History of DVT Abnormal troponin Denies CP SOB CT coronary pending Extended Emergency Contact Information Primary Emergency Contact: Charles Ahn Mobile Relation: Spouse Preferred language: Liberian Polishing Machine Operator needed? No Alen Ordonez DO Division of Hospitalist Medicine [facility] [1] History reviewed. No pertinent past medical history. [2] apixaban, 10 mg, Oral, BID Followed by [START ON 12/21/2024] apixaban, 5 mg, Oral, BID sodium chloride 0.9%, 10 mL, IntraVENous, 2 times per day [3] PRN medications: ondansetron ODT OR ondansetron, polyethylene glycol (PEG) 3350, sodium chloride, sodium chloride 0.9% [4] documented in this [facility]08-21-2025 Nurse Note* Fabby Uribe RN - 12/17/2024 5:28 AM EDT Updated HOSPITALIST PROGRAM DIRECTOR Bilyl on pt current bp status. Last bp 92/54 MAP of 67. [facility] [id number] Nurse Note* Veronika Short RN - 12/16/2024 5:49 PM EDT Patient blood pressure 90/55(63). She feels fine no complaints in talking with family. Left leg with deja wrap intact no bleeding noted. Dr Shields [facility] HospitalIeiyjv80-72-2683 Nurse Note* Veronika Short RN - 12/16/2024 2:20 PM EDT Patient heparin restarted per order now that she is back from surgery. She did go to surgery shortly after last PTT drawn and gtt was stopped when she went per surgery [facility] HospitalLwtbdj67-12-9160 Nurse Note* Veronika Short RN - 12/16/2024 2:05 PM EDT Patient returned from PACU. She is alert and oriented. She states she currently is having no pain. Deja wrap to left leg dry and intact. Call light in reach and family at bedside [facility] HospitalBkuuux43-28-4101 Nurse Note* Perioperative Nursing Note - Kat Gonzalez RN - 12/16/2024 1:55 PM EDT Patients family sent to room [facility]Atdztv05-95-9080 Miscellaneous Notes* Perioperative Nursing Note - Kat Gonzalez RN - 12/16/2024 1:55 PM EDT Patients family sent to room * Op Note - Charissa Short MD - 12/16/2024 11:32 AM EDT OPERATIVE REPORT DATE OF SERVICE: 12/16/2024 PRE-PROCEDURE [...] common iliac vein wallstent. Successful thrombectomy with orthodoxy of venous flow through the stentinto the inferior vena cava ANESTHESIA: General ESTIMATED BLOOD LOSS: 500 ml COMPLICATIONS: None SPECIMENS: None IMPLANTS: None WOUND CLASS: 1 FLUORO TIME: 5.85 min DOSE: 90.96 mGy CONTRAST: 59 ml INDICATIONS FOR PROCEDURE: The patient is a 59 yo female with previous history of bilateral common iliac vein stents placed atan outside institution. She has had an issue with thrombosis of one of the stents in the past and was treated with Eliquis. This was recently stopped as she had completed treatment. She developed left lower extremity swelling and pain and was found to have left lower extremity DVT including a thrombosed iliac vein stent. Mechanical thrombectomy was recommended for symptom relief. Risks, benefits,and alternatives were discussed with the patient and she elected to proceed. PROCEDURE IN DETAIL: The patient was taken to the operating room and general anesthesia was induced. The patient was then positioned in the prone position on the operating room table. The patient's bilateral popliteal spaces were prepped and draped in usual sterile fashion. A timeout was performed verifying the correctpatient, side, site, and procedure to be performed. Heparin was stopped upon arrival to the operating room. Under ultrasound guidance, the patient's left popliteal vein was identified and accessed using a micropuncture needle kit. Seldinger technique was then used to place a micro sheath. Venography was then performed through the sheath to confirm appropriate access within the vein. This was confirmed. ABentson wire was then positioned within the left common femoral vein. The sheath was then upsized to a 16 Nigerian sheath. 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 With the sheath in place, this was hemostatic. A 16 Nigerian Penumbra Flash suction thrombectomy catheter was then prepared per dental coordinator instructions. Suction thrombectomy was then performed of the proximal femoral vein, common femoral vein, external iliac vein, and common iliac vein within the previously placed Wallstent. Multiple passes were made with the suction thrombectomy catheter. Venography was then performed. This showed patency ofthe external iliac vein on the left with [...] silk stitch was placed with successful hemostasis s ecured. A sterile dressing was then applied. The patient was returned to the supine position. The left lower extremity was wrapped with an Deja wrap extending from the foot to the mid thigh. She was awakened from general anesthesia and transferred to the recovery area in stable condition. Charissa Short MD Vascular Surgery * Brief Op Note - Sunny Martinez MD - 12/16/2024 11:32 AM EDT Date: 12/16/2024 Location: [facility] Name: Karolina Ahn, : 1965, Diagnosis Pre-op Diagnosis * Acute deep vein thrombosis (DVT) of proximal vein of left lower extremity (HCC) [I82.4Y2] Post-opDiagnosis * Acute deep vein thrombosis (DVT) of proximal vein of left lower extremity (HCC) [I82.4Y2] Procedures MECHANICAL THROMBECTOMY LEFT ILIAC VEIN 93807 - [facility] DIR/W/CATH VENA CAVA ILIAC VEIN ABDL INC Surgeons * Charissa Short - Primary Procedure Summary Anesthesia: General ASA: III Estimated Blood Loss: 500 mL Drains: * None in log * Staff: Feller Buncher Operator: Guanako Elam RN Relief Scrub: Suhail Zarate [...] Short MD at 12/16/2024 2:47 PM EDT * Care Coordination - Manju Davidson RN - 12/16/2024 8:05 AM EDT Care Management Progress Note Short Medical why still here: Admitted OBS via ED for increased pain and edema of LLE in setting ofdiagnosed DVT at OSH. Surgical intervention (Thrombectomy) planned. On Heparin gtt. Planned Discharge Disposition: (TBD) Barriers/Today we still Wait: Administering IV medications, Clinical stability, Procedure (comment) Length of Stay (Days): 0 GMLOS: No GMLOS Documented TCC will continue to follow. documented in this [facility]08-20-2025 NotePatient: Karolina Ahn Procedure Summary Date: 12/16/24 Room / Location: [address] Operating Room Anesthesia Start: 1132 Anesthesia Stop: 1315 Procedure: MECHANICAL THROMBECTOMY LEFT ILIAC VEIN (Left) [...] discharged once all PACU criteria has been met.[facility] [id number] NotePatient: Karolina Ahn Procedure Summary Date: 12/16/24 Room / Location: [facility] Operating Room Anesthesia Start: 1132 Anesthesia Stop: 1315 Procedure: MECHANICAL THROMBECTOMY LEFT ILIAC VEIN (Left) [...] Allowed opportunity for questions and acknowledgement of understanding.[facility] [id number] NoteAirway Date/Time: 12/16/2024 11:41 AM Reason: scheduled General Information and Staff Patient location during procedure: Procedural Resident/UMBRELLA MENDER: Shelby Youssef CRNA Performed: UMBRELLA MENDER Patient Condition Indications for airway management: anesthesia [...] (cm): 21 Number of attempts at approach: [address] [place], [place] [id number] Note Hospitalist Progress Note 12/16/2024 Subjective: Admit [...] hematochezia. Patient follows with Dr. Goldberg at [facility] and is scheduled for thrombectomy and heparin [...] Charles Ahn Mobile Relation: Spouse Preferred language: Liberian Polishing Machine Operator needed? No Alen Ordonez DO Division of Hospitalist Medicine [facility] [1] History reviewed. No pertinent past [...] 5-30 Units/kg/hr, Last Rate: 16 Units/kg/hr (12/16/24 0717)[facility]08-20-2025 Nurse Note* Veronika Short RN - 12/16/2024 11:48 AM EDT To or [facility] [facility] [id number] NoteOPERATIVE REPORT DATE OF SERVICE: 12/16/2024 PRE-PROCEDURE DIAGNOSIS: [...] common iliac vein wallstent. Successful thrombectomy with orthodoxy of venous flow through the stent into [...] sheath was then upsized to a 16 Nigerian sheath. 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 With the sheath in place, this was hemostatic. A 16 Nigerian Penumbra Flash suction thrombectomy catheter was then prepared per dental coordinator instructions. Suction thrombectomy was then performed of [...] in stable condition. Charissa Short MD [facility]08-20-2025 Procedure note* Op Note - Charissa Short MD - 12/16/2024 11:32 AM EDT OPERATIVE REPORT DATE OF SERVICE: 12/16/2024 PRE-PROCEDURE [...] common iliac vein wallstent. Successful thrombectomy with orthodoxy of venous flow through the stentinto the inferior vena cava ANESTHESIA: General ESTIMATED BLOOD LOSS: 500 ml COMPLICATIONS: None SPECIMENS: None IMPLANTS: None WOUND CLASS: 1 FLUORO TIME: 5.85 min DOSE: 90.96 mGy CONTRAST: 59 ml INDICATIONS FOR PROCEDURE: The patient is a 59 yo female with previous history of bilateral common iliac vein stents placed atan outside institution. She has had an issue with thrombosis of one of the stents in the past and was treated with Eliquis. This was recently stopped as she had completed treatment. She developed left lower extremity swelling and pain and was found to have left lower extremity DVT including a thrombosed iliac vein stent. Mechanical thrombectomy was recommended for symptom relief. Risks, benefits,and alternatives were discussed with the patient and she elected to proceed. PROCEDURE IN DETAIL: The patient was taken to the operating room and general anesthesia was induced. The patient was then positioned in the prone position on the operating room table. The patient's bilateral popliteal spaces were prepped and draped in usual sterile fashion. A timeout was performed verifying the correctpatient, side, site, and procedure to be performed. Heparin was stopped upon arrival to the operating room. Under ultrasound guidance, the patient's left popliteal vein was identified and accessed using a micropuncture needle kit. Seldinger technique was then used to place a micro sheath. Venography was then performed through the sheath to confirm appropriate access within the vein. This was confirmed. ABentson wire was then positioned within the left common femoral vein. The sheath was then upsized to a 16 Nigerian sheath. 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 With the sheath in place, this was hemostatic. A 16 Nigerian Penumbra Flash suction thrombectomy catheter was then prepared per dental coordinator instructions. Suction thrombectomy was then performed of the proximal femoral vein, common femoral vein, external iliac vein, and common iliac vein within the previously placed Wallstent. Multiple passes were made with the suction thrombectomy catheter. Venography was then performed. This showed patency ofthe external iliac vein on the left with [...] silk stitch was placed with successful hemostasis s ecured. A sterile dressing was then applied. The patient was returned to the supine position. The left lower extremity was wrapped with an Deja wrap extending from the foot to the mid thigh. She was awakened from general anesthesia and transferred to the recovery area in stable condition. Charissa Short MD Vascular Surgery [employer] Phone: 1(923) 363-564408-20-2025 Procedure note* Brief Op Note - Sunny Martinez MD - 12/16/2024 11:32 AM EDT Date: 12/16/2024 Location: [facility] OR Name: Karolina Ahn, : 1965, Diagnosis Pre-op Diagnosis * Acute deep vein thrombosis (DVT) of proximal vein of left lower extremity (HCC) [I82.4Y2] Post-opDiagnosis * Acute deep vein thrombosis (DVT) of proximal vein of left lower extremity (HCC) [I82.4Y2] Procedures MECHANICAL THROMBECTOMY LEFT ILIAC VEIN 81767 - [facility]W/CATH VENA CAVA ILIAC VEIN ABDL INC Surgeons * Charissa Short - Primary Procedure Summary Anesthesia: General ASA: III Estimated Blood Loss: 500 mL Drains: * None in log * Staff: Feller Buncher Operator: Guanako Elam RN Relief Scrub: Suhail Zarate [...] Short MD at 12/16/2024 2:47 PM EDT [employer] Work Phone: [phone] 468-370108-20-2025 NotePatient: Karolina Ahn Procedure Information Date/Time: 12/16/24 1130 Procedure: THROMBECTOMY, VEIN, VENA CAVA OR ILIAC (Left) - Prone positioning Location: [facility] OR Operating Room Surgeons: Charissa Short MD 59 [...] Equipment Requests [1] No family history on file.[facility]08-20-2025 NoteCare Management Progress Note Short Medical why still here: Admitted OBS via ED for increased pain and edema of LLE in setting of diagnosed DVT at OSH. Surgical intervention (Thrombectomy) planned. On Heparin gtt. Planned Discharge Disposition: (TBD) Barriers/Today we still Wait: Administering IV medications, Clinical stability, Procedure (comment) Length of Stay (Days): 0 GMLOS: No GMLOS Documented TCC will continue to follow. [facility]08-20-2025 Progress note* Care Coordination - Manju Davidson RN - 12/16/2024 8:05 AM EDT Care Management Progress Note Short Medical why still here: Admitted OBS via ED for increased pain and edema of LLE in setting ofdiagnosed DVT at OSH. Surgical intervention (Thrombectomy) planned. On Heparin gtt. Planned Discharge Disposition: (TBD) Barriers/Today we still Wait: Administering IV medications, Clinical stability, Procedure (comment) Length of Stay (Days): 0 GMLOS: No GMLOS Documented TCC will continue to follow. [facility] [id number] Emergency department Note* Rocío Wilson RN - 12/15/2024 6:44 PM EDT Transport at bedside. Per tele order patient is okay to go off tele monitor for transport. [facility] [id number] Emergency department Note* Rocío Wilson RN - 12/15/2024 6:44 PM EDT Transport at bedside. Per tele order patient is okay to go off tele monitor for transport. * Rocío Wilson RN - 12/15/2024 6:17 PM EDT Pt placed on tele monitor at this time. * Rocío Wilson RN - 12/15/2024 6:16 PM EDT This RN called Bed Coordinator in regards to bed being removed from patient chart. Per Bed Coordinator patient will be going to 136A. * Rocío Wilson RN - 12/15/2024 6:15 PM EDT Secure chat sent to DO Lyndsey at this time in regards to no tele order at this time. * Rocío Wilson RN - 12/15/2024 5:47 PM EDT Pt ordering meal tray at this time. * Rocío Wilson RN - 12/15/2024 5:10 PM EDT Pt rounded on at this time. Pt resting in bed. Breathing even and unlabored. No signs of distress noted. RR 19. * Rocío Wilson RN - 12/15/2024 2:59 PM EDT Report to CHERI Ruiz. * Rocío Wilson RN - 12/15/2024 1:47 PM EDT Pt provided meal tray at this time. * Rocío Wilson RN - 12/15/2024 12:38 PM EDT Pt provided diet menu. * Rocío Wilson RN - 12/15/2024 11:37 AM EDT Pt placed in hospital bed at this time. * Riley Mcmillan NP - 12/14/2024 5:14 PM EDT EMERGENCY DEPARTMENT ENCOUNTER Pt Name: Karolina Ahn [...] after being told she has a new DVTon Saturday. Patient states she is compliant with [...] previous vascular study done on Saturday with positiveDVT at [facility] (picture of report was scanned into [...] and normal weight. She is not ill-appearing ortoxic-appearing. HENT: Head: Normocephalic and atraumatic. Nose: Nose [...] after being told she has a new DVTon Saturday. Patient states she is compliant with [...] previous vascular study done on Saturday with positiveDVT at [facility] (picture of report was scanned into [...] (HCC) I Riley Mcmillan NP am the financial accountant of record. REVAL: Stable. Tolerating PO. Nontoxic. [...] are any questions or concerns please feel freeto contact the dictating provider for clarification.) Riley [...] Aponte DO at 12/14/2024 11:40 PM EDT * Anthony Aponte DO - 12/14/2024 5:14 PM EDT Emergency Department Encounter [facility] EMERGENCY DEPT Patient: Karolina Ahn : 1965 [...] just over a week now. Initial evaluated [facility] where she was diagnosed with a DVT that extends along her entire leg. She was started on Eliquis which she has been taking regularly but notes worsening pain and swelling. Was trying to get a second opinion and went to [facility] But states she never saw a provider and left out of frustration after waiting several hours. Tried to call vascular surgery and was told to go to ER at either [facility] or [place]. She currently denies any chest pain or shortness of breath. D oes note family history of DVT as well as personal history of prior DVT. States she was only testedfor factor V before but has been on [...] on the report she provided from the venousduplex study obtained at [facility], she does have significant clot burden. [...] are any questions or concerns please feel freeto contact the dictating provider for clarification.) Anthony Aponte DO Acute Care [facility] Anthony Aponte DO 12/14/24 7897 documented in this [facility]08-19-2025 Emergency department Note* Rocío Wilson RN - 12/15/2024 6:17 PM EDT Pt placed on tele monitor at this time. [facility] HospitalTkvaak20-02-3577 Emergency department Note* Rocío Wilson RN - 12/15/2024 6:16 PM EDT This RN called Bed Coordinator in regards to bed being removed from patient chart. Per Bed Coordinator patient will be going to 1C [address]A. [id number] Emergency department Note* Rocío Wilson RN - 12/15/2024 6:15 PM EDT Secure chat sent to DO Lyndsey at this time in regards to no tele order at this time. [address]Pflrlr16-71-1229 Emergency department Note* Rocío Wilson RN - 12/15/2024 5:47 PM EDT Pt ordering meal tray at this time. [address]Lbpumh77-02-7759 Emergency department Note* Rcoío Wilson RN - 12/15/2024 5:10 PM EDT Pt rounded on at this time. Pt resting in bed. Breathing even and unlabored. No signs of distress noted. RR 19. [id number] Emergency department Note* Rocío Wilson RN - 12/15/2024 2:59 PM EDT Report to CHERI Ruiz. [id number] Emergency department Note* Rocío Wilson RN - 12/15/2024 1:47 PM EDT Pt provided meal tray at this time. [address]Fqsyfj26-23-2820 Emergency department Note* Rocío Wilson RN - 12/15/2024 12:38 PM EDT Pt provided diet menu. [facility] HospitalIzjpqz63-34-4440 Emergency department Note* Rocío Wilson RN - 12/15/2024 11:37 AM EDT Pt placed in hospital bed at this time. [facility] HospitalWrmrdv41-08-0716 NoteHospitalist Progress Note 12/15/2024 Subjective: Admit Date: 12/14/2024 [...] hematochezia. Patient follows with Dr. Goldberg at [facility] and is scheduled for thrombectomy and heparin [...] hematochezia. Patient follows with Dr. Goldberg at [facility] and is scheduled for thrombectomy and heparin [...] Charles Ahn Mobile Relation: Spouse Preferred language: Liberian Polishing Machine Operator needed? No Alen Ordonez DO Division of Hospitalist Medicine [facility] [1] History reviewed. No pertinent past medical history. [2] apixaban, 10 mg, Oral, BID Followed by [START ON 12/21/2024] apixaban, 5 mg, Oral, BID sodium chloride 0.9%, 10 mL, IntraVENous, 2 times per day [3] PRN medications: ondansetron ODT OR ondansetron, polyethylene glycol (PEG) 3350, sodium chloride, sodium chloride 0.9% [4][facility]08-19-2025 Consult note* Gala Pa MD - 12/15/2024 6:53 AM EDTAssociated Order(s): IP CONSULT TO VASCULAR SURGERY Images from [...] was switched from Eliquis to Plavix. Has beenon Plavix but no anticoagulation since then. Also reports hx of R CIV stent some time prior to this. Has had multiple prior lower extremity DVTs. Mother with hx of DVT. Both patient and mother negative for factor V leiden but not tested for other genetic coagulopathies. Began to have LLE pain and swelling last week and BLE venous duplex at [place] reportedly demonstrated occlusion of left CIV stent, and associated acute DVT of LCFV, EIV, FV, PopV, T/P Trunk, PTV, Peroneal/Gastroc/Soleal vv. Pt was switched back from Plavix to Eliquis on Saturday (12/11) with plan for admission to [facility] 12/23 for heparin bridge and thrombectomy by [...] with similar findings as prior study at [facility] (see full reports below). IMPRESSION: Occluded left [...] pelvic congestion syndrome back in 09/[address] [facility] [address] Goldberg. The patient also subsequently [...] risks of bleeding, infection,damage to surrounding structures, accesssite complications, development of pulmonary embolism, and possible inability to cross the stents. S he has expressed understanding and has elected to proceed. Plan for thrombectomy tomorrow if OR time allows. If not, plan for Sunday 12/17. NPO at midnight. Continue heparin gtt. [facility] [id number] Consult note* Gala Pa MD - 12/15/2024 6:53 AM EDT Associated Order(s): IP CONSULT TO VASCULAR SURGERY Images from [...] was switched from Eliquis to Plavix. Has beenon Plavix but no anticoagulation since then. Also reports hx of R CIV stent some time prior to this. Has had multiple prior lower extremity DVTs. Mother with hx of DVT. Both patient and mother negative for factor V leiden but not tested for other genetic coagulopathies. Began to have LLE pain and swelling last week and BLE venous duplex at [facility] reportedly demonstrated occlusion of left CIV stent, and associated acute DVT of LCFV, EIV, FV, PopV, T/P Trunk, PTV, Peroneal/Gastroc/Soleal vv. Pt was switched back from Plavix to Eliquis on Saturday (12/11) with plan for admission to [facility] 12/23 for heparin bridge and thrombectomy by [...] with similar findings as prior study at [facility] (see full reports below). IMPRESSION: Occluded left [...] pelvic congestion syndrome back in 09/[address] [facility] [address] Goldberg. The patient also subsequently [...] risks of bleeding, infection,damage to surrounding structures, accesssite complications, development of pulmonary embolism, and possible inability to cross the stents. S he has expressed understanding and has elected to proceed. Plan for thrombectomy tomorrow if OR time allows. If not, plan for Sunday 12/17. NPO at midnight. Continue heparin gtt. documented in this [facility]08-19-2025 History and physical note* Clinton Rodriguez PA-C - 12/15/2024 12:44 AM EDT History and Physical Admit Date: 12/14/2024 PCP: No primary care provider on file. CHIEF COMPLAINT: left leg pain Reason for Admission: Left lower extremity DVT History Obtained From: patient HISTORY OF PRESENT ILLNESS: Karolina is a 59 y.o. female with past medical history below who presents with complaints of left lowerextremity pain and swelling that has been present for the last several days. Patient was initially evaluated at [facility] diagnosed with a DVT of the [...] regarding patient's eval & mgmt thus far, andagree with the plan for hospitalization. (LOW: 2x [...] Charles Ahn Mobile Relation: Spouse Preferred language: Liberian Polishing Machine Operator needed? No Clinton Rodriguez PA-C Division of [facility] Medicine Inpatient Medical Services/[facility] [1] History reviewed. No pertinent past medical history. [2] History reviewed. No pertinent surgical history. [3] No family history on file. [4] Allergies Allergen Reactions Hydrocodone Other [5] History reviewed. No pertinent past medical history. Cosigned by Edy Gray DO at 12/15/2024 6:33 AM EDT [facility] [id number] NoteHistory and Physical Admit Date: 12/14/2024 PCP: No [...] several days. Patient was initially evaluated at [facility] diagnosed with a DVT of the [...] above findings & f (more content not included)...[facility] [id number] History and physical note* Clinton Rodriguez PA-C - 12/15/2024 12:44 AM EDT History and Physical Admit Date: 12/14/2024 PCP: No primary care provider on file. CHIEF COMPLAINT: left leg pain Reason for Admission: Left lower extremity DVT History Obtained From: patient HISTORY OF PRESENT ILLNESS: Karolina is a 59 y.o. female with past medical history below who presents with complaints of left lowerextremity pain and swelling that has been present for the last several days. Patient was initially evaluated at [facility] diagnosed with a DVT of the [...] regarding patient's eval & mgmt thus far, andagree with the plan for hospitalization. (LOW: 2x [...] Charles Ahn Mobile Relation: Spouse Preferred language: Liberian Polishing Machine Operator needed? No Clinton Rodriguez PA-C Division of [facility] Medicine Inpatient Medical Services/[facility] [1] History reviewed. No pertinent past medical history. [2] History reviewed. No pertinent surgical history. [3] No family history on file. [4] Allergies Allergen Reactions Hydrocodone Other [5] History reviewed. No pertinent past medical history. Cosigned by Edy Gray DO at 12/15/2024 6:33 AM EDT documented in this [facility]08-18-2025 Physician Emergency department Note* Riley Mcmillan NP - 12/14/2024 5:14 PM EDT EMERGENCY DEPARTMENT ENCOUNTER Pt Name: Karolina Ahn [...] after being told she has a new DVTon Saturday. Patient states she is compliant with [...] previous vascular study done on Saturday with positiveDVT at [facility] (picture of report was scanned into [...] and normal weight. She is not ill-appearing ortoxic-appearing. HENT: Head: Normocephalic and atraumatic. Nose: Nose [...] after being told she has a new DVTon Saturday. Patient states she is compliant with [...] previous vascular study done on Saturday with positiveDVT at [facility] (picture of report was scanned into [...] ED Course as of 12/14/242228Dec 14, 2024 180 EKG: Sinus rhythm, 75 bpm. T wave [...] (HCC) I Riley Mcmillan NP am the financial accountant of record. REVAL: Stable. Tolerating PO. Nontoxic. [...] are any questions or concerns please feel freeto contact the dictating provider for clarification.) Riley [...] Aponte DO at 12/14/2024 11:40 PM EDT [facility]Pgjxka05-64-3353 Physician Emergency department Note* Anthony Aponte DO - 12/14/2024 5:14 PM EDT Emergency Department Encounter [facility] EMERGENCY DEPT Patient: Karolina Ahn : 1965 [...] just over a week now. Initial evaluated [facility] where she was diagnosed with a DVT that extends along her entire leg. She was started on Eliquis which she has been taking regularly but notes worsening pain and swelling. Was trying to get a second opinion and went to [facility] But states she never saw a provider and left out of frustration after waiting several hours. Tried to call vascular surgery and was told to go to ER at either [facility] or [place]. She currently denies any chest pain or shortness of breath. D oes note family history of DVT as well as personal history of prior DVT. States she was only testedfor factor V before but has been on [...] on the report she provided from the venousduplex study obtained at [facility], she does have significant clot burden. [...] are any questions or concerns please feel freeto contact the dictating provider for clarification.) Anthony Aponte DO [employer] Anthony Aponte DO 12/14/24 5021 [facility] HospitalQspdrg09-29-7334 History of Present illness Narrative* Karolina Soliz, RT(R) - 12/14/2024 1:00 PM EDT Radiology Service Progress Note DATE OF SERVICE: [...] Assigned female at . status: : No status:NO. PATIENT RELEVANT IMPLANT DATA REVIEWED: Yes PATIENT PRESENTS WITH AN IMPLANTABLE OR ATTACHED PARK MAINTAINER: No ALLERGIES: Reviewed and unchanged CONTRAST ALLERGY: [...] 2024 TIME: 1:22 PM documented in this encounterPremier [facility]08-18-2025 NoteHNO ID: [id number] Author: KAROLINA SOLIZ RT (R) Service: ? Author Type: Technologist Type: Progress [...] PATIENT PRESENTS WITH AN IMPLANTABLE OR ATTACHED PARK MAINTAINER: No ALLERGIES: Reviewed and unchanged CONTRAST ALLERGY: NO. EXAM: MRI - CONTRAST TYPE: GROUP II PERIPHERAL IV DATA: Ambulatory: A peripheral IV was started in the Right antecubital site with a Angio cath: 22 gauge. RADIOLOGY DEPARTMENT: MR; Exam(s) Completed: Body: Female Pelvis. Aromatherapy Administered: No SIGNATURE: RT Jose Angel(R) PATIENT NAME: Karolina Ahn DATE: December 14, 2024 TIME: 1:22 [facility]08-15-2025 Discharge summary [facility] Medical Records Department [address] [place] [address] Emergency Department Summary 12/11/24 MR#: [id number] Acct: [id number] Name: KAROLINA AHN Rep #:[id number] : 1965 59 From: [place] MD [...] peripheral arterial disease. Patient presently deniesshortness of breath.She denies chest pain. She denies headache, visual, [...] to inspection, nondistended, normoactive bowel sounds, non-tender, non- distended and no masses; Negative for hepatosplenomegaly Extremity [...] dolens suspect she has an extensive clot inher left lower extremity. Venous duplex study was [...] He is in a agreement. Since she ishemodynamically stable not hypoxic and there is no vascular compromise of the extremity recommendation was Eliquis 10 mg twice daily for 1 week and then 5 mg twice daily. Patient is requesting pain medicine. She was discharged with pain medicine. She was instructed if she develops chest pain difficulty breathing to return immediately. If her leg becomes pale to returnimmediately. As document HPI narrative prior records were [...] % (Auto) 52.4 Lymph % (Auto) 30.7 [place] % (Auto) 7.8 Eos % (Auto) 7.8 [...] distal to the popliteal artery. [facility] Management Discussion w/another healthcare provider: Sewage Plant Operator (Spoke with Dr. Goldberg. This was documented [...] to the emergency department immediately Print Language: Liberian Disposition Disposition: Home, Self Care What to do if you have Problems For any increased pain, shortness of breath, bleeding, nausea or vomiting, chestpain, or any unexpected problems, contact your Primary Care Provider. Call [facility] ([phone]) or report tothe closest Emergency Room. Call 911 if necessary. 12/11/24924 Cosigner Signature (if applicable): CC: Dr. Jimbo Dash MD ~ Signed [facility]08-15-2025 Radiology Diagnostic study note [facility] Imaging Services [address] [place], [place] [id number] CTA Abd w/Runoff W/WO Contrast MR#: [id number] Acct: [id number] Name: KAROLINA AHN Rep #: [id number] : 1965 F 59 From: Ramon Arvizu MD PCP: Dr. Jimbo Dash MD Status: REG E R Study:CTA Abd w/Runoff W/WO Contrast Date of Exam: 12/11/24 Exam# [id number] Ordering Dr: Loly Ledesma DO PROCEDURE: CTA [...] distal to the popliteal artery. Reading Location: [facility] CC: Dr. Jimbo Dash MD; DO Darren Quiñones Environmental Compliance Officer: Signed [facility]08-12-2025 Note* Addendum Note - Marguerite Daily APRN.CNP - 12/08/2024 3:46 PM EDTAddended by: MARGUERITE DAILY on: 12/08/2024 03:46 PM Modules accepted: Orders [facility]08-12-2025 Miscellaneous Notes* Addendum Note - Marguerite Daily APRN.CNP - 12/08/2024 3:46 PM EDTAddended by: MARGUERITE DAILY on: 12/08/2024 03:46 PM Modules accepted: Orders documented in this encounterPremier Health At[facility] Center08-12-2025 NoteHNO ID: [id number] Author: MARGUERITE DAILY APRN.CNP Service: ? Author Type: Nurse Practitioner Type: Progress Notes Filed: 12/08/2024 15:46 Note Text: [facility] Subjective HPI HPI Karolina Ahn is a [...] tension free vaginal sling, cystoscopy (Dr. Luis, [facility]) VAGINAL HYSTERECTOMY 04/06/2014 LAVH, BSO, anterior and posterior repair (Dr. Muniz, [facility]) ALLERGIES Hydrocodone-Acetaminophen, Aspirin, and Oxycodone MEDICATIONS [...] diagnosis) Post op shoe provided F/u with delivery man in 10 days if s/s persist. Prophylactic atb ordered F/u for s/s infection. 2. Injury of toe on left foot, initial encounter - ICD9: 959.7, ICD10: S99.922A - XR TOE AP/LAT/OBL LEFT IMPRESSION: Probable intra-articular fracture of the base of the distal phalanx of the second digit Dictated by : DO Marguerite SAWYER APRN.EDUCATION ASSISTANT History and Record Review External record(s) reviewed: prior outpatient record. Disposition The patient was discharged. Procedures [1] Social History Tobacco Use Smoking status: Never Smokeless tobacco: Never Vaping Use Vaping status: Never Used Substance Use Topics Alcohol use: No Drug use: [facility]08-12-2025 History of Present illness Narrative* Marguerite DailyNILSA.EDUCATION ASSISTANT - 12/08/2024 2:39 PM EDT Images from the original note were not included. URGENT CARE [facility] HPI HPI Karolina Ahn is a 59 [...] tension free vaginal sling, cystoscopy (Dr. Luis, [facility]) VAGINAL HYSTERECTOMY 04/06/2014 LAVH, BSO, anterior and posterior repair (Dr. Muniz, [facility]) ALLERGIES Hydrocodone-Acetaminophen, Aspirin, and Oxycodone MEDICATIONS [...] diagnosis) Post op shoe provided F/u with delivery man in 10 days if s/s persist. Prophylactic atb ordered F/u for s/s infection. 2. Injury of toe on left foot, initial encounter - ICD9: 959.7, ICD10: S99.922A - XR TOE AP/LAT/OBL LEFT IMPRESSION: Probable intra-articular fracture of the base of the distal phalanx of the second digit Dictated by : DO Marguerite SAWYER APRN.EDUCATION ASSISTANT History and Record Review External record(s) reviewed: prior outpatient record. Disposition The patient was discharged. Procedures [1] Social History Tobacco Use Smoking status: Never Smokeless tobacco: Never Vaping Use Vaping status: Never Used Substance Use Topics Alcohol use: No Drug use: No documented in this encounterPremier Health [facility] Center08-12-2025 History of Present illness Narrative* Sade Davila RT(R) - 12/08/2024 2:30 PM EDT Radiology Service Progress Note PATIENT NAME: Karolina Ahn DATE OF SERVICE: December 08, 2024 TIME: 2:23 PM PATIENT IDENTITY VERIFICATION COMPLETED USING TWO (2) IDENTIFIERS: Name and Date of confirmedby patient verbally. FALL SCREENING: Has the patient had 2 falls in the last year or 1 fall with injury or currently using an Ambulatory Assistive Device (Walker, Cane, Wheelchair, Crutches, etc.)? No PATIENT GENDER DATA: Assigned female at . status: : No status:NO. PATIENT RELEVANT IMPLANT DATA REVIEWED: Yes PATIENT PRESENTS WITH AN IMPLANTABLE OR ATTACHED PARK MAINTAINER: No RADIOLOGY DEPARTMENT: General X-ray: Exam(s) Completed: Lower Extremity X- Ray(s): Toes, Left 2nd toe PERIPHERAL IV DATA: Not applicable SIGNED BY: RT Stefani(R) December 08, 2024 2:23 PM documented in this encounterPremier Health Atrium Medical Center08-12-2025 NoteHNO ID: [id number] Author: SADE DAVILA RT(R) Service: ? Author Type: Teacher Of The Sight Impaired Type: Progress Notes Filed: 12/08/2024 14:35 Note [...] PATIENT PRESENTS WITH AN IMPLANTABLE OR ATTACHED PARK MAINTAINER: No RADIOLOGY DEPARTMENT: General X-ray: Exam(s) Completed: Lower Extremity X-Ray(s): Toes, Left 2nd toe PERIPHERAL IV DATA: Not applicable SIGNED BY: RT Stefani(R) December 08, 2024 2:23 [facility]07-29-2025 NoteHNO ID: [id number] Author: FÁTIMA SANTILLAN MD Service: ? Author [...] your prolapse (not pressure or fullness) N/A [facility]07-29-2025 History of Present illness Narrative* Fátima Santillan MD - 11/24/2024 10:57 PM EDT Medical and Symptom History: PFDI-20 Do you: [...] your prolapse (not pressure or fullness) N/A * Fátima Santillan MD - 11/24/2024 10:36 PM EDT Images from the original note were not included. [facility] NEW PATIENT [...] 09/24/2024. Other /urogyn providers: April Nicole MD Pediatrician Active Practice: STERLING Dunn The patient was seen by STERLING Dunn of [employer] for 2-month history of dysuria and pelvic [...] by my nurse/MA at today's visit. Today's yaqos-oi-gkfx urine testing trace, intact blood, negative nitrite, [...] Medications None reported Previous HRT-blood clots Past [employer] History: G 6 P 6 Vaginal deliveries: [...] tension free vaginal sling, cystoscopy (Dr. Luis, [facility]) VAGINAL HYSTERECTOMY 04/06/2014 LAVH, BSO, anterior and posterior repair (Dr. Muniz, [facility]) FAMILY HISTORY Problem Relation Age of [...] discussed with the Patient or Patient's Authorized Account Executive Software Sales. Asapplicable, any other physician, advance practice provider, medical student, or other health professional student that will be observing or involved in the sensitive examination for educational or training purposes was discussed with the Patient or Authorized Account Executive Software Sales. The Patient or Authorized Account Executive Software Sales has agreed to proceed with the sensitive [...] social history documented by my ancillary staff. Stage Producer offered:Patient accepts, visit chaperoned by Alejandra Flannery MA. Fátima Santillan MD Staff Urologist documented in this encounterPremier Health Atrium Medical Center07-29-2025 NoteHNO ID: [id number] Author: FÁTIMA SANTILLAN MD Service: ? Author Type: Physician Type: Progress Notes Filed: 11/24/2024 23:13 Note Text: [facility] NEW PATIENT [...] 09/24/2024. Other /urogyn providers: April Nicole MD Pediatrician Active Practice: STERLING Dunn The patient was seen by Ric Taylor, PASTRY ASSISTANT-EDUCATION ASSISTANT of [employer] for 2-month history of dysuria and pelvic [...] by my nurse/MA at today's visit. Today's odpaw-hp-pcfm urine testing trace, intact blood, negative nitrite, [...] Medications None reported Previous HRT-blood clots Past [employer] History: G 6 P 6 Vaginal deliveries: [...] Genitourinary: SEE HPI Constitu (more content not included)...[facility]07-28-2025 Telephone encounter Note* Telephone Encounter - Gala Slater - 11/23/2024 8:06 AM EDT Referral has not been authorized yet. I recommend checking with your insurance provider Gala [facility]07-28-2025 Miscellaneous Notes* Telephone Encounter - Gala Slater - 11/23/2024 8:06 AM EDT Referral has not been authorized yet. I recommend checking with your insurance provider Gala documented in this encounterPremier Health Atrium Medical Center06-27-2025 Instructions* Patient Instructions* Fátima Santillan MD - 10/23/2024 10:22 AM [...] vaginal estrogen. Use of topical vaginal estrogen twiceweekly has been shown to reduce the frequency [...] absorbed while lying down. documented in this encounterPremier Health Atrium Medical Center06-27-2025 NoteHNO ID: [id number] Author: FÁTIMA SANTILLAN MD Service: ? Author Type: Physician Type: Procedures Filed: 11/24/2024 23:02 Note Text: CYSTOSCOPY PROCEDURE NOTE: Karolina Ahn is a 59 year old female who presents with recurrent bladder stones. Cystoscopy is planned. Pt ID verified with patient: Yes Procedure verified with patient: Yes Procedure confirmed with physician and client support representative: Yes UNIVERSAL PROTOCOL / SAFETY CHECKLIST Procedure [...] and increase oral fluid intake as directed. Stage Producer offered:Patient accepts, visit chaperoned by Alejandra Flannery MA ASSESSMENT/PLAN: Bladder calculus, presumed foreign body reaction status post prior mid urethral sling See separate visit note for assessment, plans and further evaluation.[facility]06-27-2025 Procedure note* Fátima Santillan MD - 10/23/2024 9:59 AM EDT CYSTOSCOPY PROCEDURE NOTE: Karolina Ahn is a 59 year old female who presents with recurrent bladder stones. Cystoscopy is planned. Pt ID verified with patient: Yes Procedure verified with patient: Yes Procedure confirmed with physician and client support representative: Yes UNIVERSAL PROTOCOL / SAFETY CHECKLIST Procedure [...] cystoscopy procedure and personnel were discussed with thepatient. The verbal consent was obtained and the [...] anterolateral aspect of bladder wall. This would bethe expected trajectory of puncture due to prior sling. Presumed foreign body reaction. Bladder trabeculation none. No diverticulum or cellules. Ureteral orifices normal in position, number and configuration. At the conclusion of the procedure, the Flexible cystoscope was removed atraumatically. The patienttolerated the procedure without complications. Patient was given standard post-procedure instructions, and was directed to complete the course of oral antibiotics and increase oral fluid intake as directed. Stage Producer offered:Patient accepts, visit chaperoned by Alejandra Flannery MA ASSESSMENT/PLAN: Bladder calculus, presumed foreign body reaction status post prior mid urethral sling See separate visit note for assessment, plans and further evaluation. [facility]06-27-2025 Procedure note* Fátima Santillan MD - 10/23/2024 9:59 AM EDT CYSTOSCOPY PROCEDURE NOTE: Karolina Ahn is a 59 year old female who presents with recurrent bladder stones. Cystoscopy is planned. Pt ID verified with patient: Yes Procedure verified with patient: Yes Procedure confirmed with physician and client support representative: Yes UNIVERSAL PROTOCOL / SAFETY CHECKLIST Procedure [...] cystoscopy procedure and personnel were discussed with thepatient. The verbal consent was obtained and the [...] anterolateral aspect of bladder wall. This would bethe expected trajectory of puncture due to prior sling. Presumed foreign body reaction. Bladder trabeculation none. No diverticulum or cellules. Ureteral orifices normal in position, number and configuration. At the conclusion of the procedure, the Flexible cystoscope was removed atraumatically. The patienttolerated the procedure without complications. Patient was given standard post-procedure instructions, and was directed to complete the course of oral antibiotics and increase oral fluid intake as directed. Stage Producer offered:Patient accepts, visit chaperoned by Alejandra Flannery MA ASSESSMENT/PLAN: Bladder calculus, presumed foreign body reaction status post prior mid urethral sling See separate visit note for assessment, plans and further evaluation. documented in this encounterPremier Health At[facility] Medical Center06-27-2025 NoteHNO ID: [id number] Author: FÁTIMA SANTILLAN MD Service: ? Author Type: Physician Type: Progress Notes Filed: 11/24/2024 23:02 Note Text:[facility]06-27-2025 History of Present illness Narrative* Fátima Santillan MD - 10/23/2024 9:51 AM EDT documented in this encounterPremier Health Atrium Medical Center06-19-2025 Telephone encounter Note * Telephone Encounter - Elida Angelo APRN.CNP - 10/15/2024 1:[address] result received via fax. It shows a well defined 4.5mm calcification adherent to right anterolateral aspect of bladder wall, adherent stone vs mural calcification within a bladder wall lesion. Will ask staff to scan into chart and to also request the images for Dr Pathak to review. Patient has cystoscopy with him 11/03/24. Elida Angelo APRN.CNP [facility] Work Phone: [phone] Miscellaneous Notes* Telephone Encounter - Elida Angelo APRN.CNP - 10/15/2024 1:[address] result received via fax. It shows a well defined 4.5mm calcification adherent to right anterolateral aspect of bladder wall, adherent stone vs mural calcification within a bladder wall lesion. Will ask staff to scan into chart and to also request the images for Dr Pathak to review. Patient has cystoscopy with him 11/03/24. Elida Angelo APRN.CNP documented in this encounterPremier Health Atrium Medical Center06-18-2025 Radiology Diagnostic study note [facility] Imaging Services [address] [place] [address] [id number] Pelvis without IV Contrast MR#: [id number] Acct: [id number] Name: KAROLINA AHN Rep #: [id number] : 1965 F 59 From: Matt Beard MD PCP: Dr. Jimbo Dash MD Status: KEIRA R[place] Study:Pelvis without IV Contrast Date of Exam : 10/13/24 Exam# [id number] Ordering Dr: Lian marrero,Out o. PROCEDURE: PELVIS [...] the large bowels. Mild osteopenia. [facility] CC: ELIDA ANGELO; Dr. Jimbo Dash MD ~ Environmental Compliance Officer: Signed [facility]05-30-2025 Telephone encounter Note* Telephone Encounter - Elida Angelo APRN.CNP - 09/25/2024 12:18 PM EDT Patient is aware of plan for CT and cystoscopy with Dr Pathak. Orders have been placed in office visit from yesterday. Please help patient schedule. Thanks. Elida Angelo APRN.CNP [facility]05-30-2025 Miscellaneous Notes* Telephone Encounter - Elida Angelo APRN.CNP - 09/25/2024 12:18 PM EDT Patient is aware of plan for CT and cystoscopy with Dr Pathak. Orders have been placed in office visit from yesterday. Please help patient schedule. Thanks. Elida Angelo APRN.LISANDRO documented in this encounterPremier Health Atrium Medical Center05-29-2025 Instructions* Patient Instructions* Elida Angelo APRN.CNP - 09/24/2024 11:38 AM EDT I will reach out to my physician colleagues for next steps. Call us Saturday if you have not heard from our office. UROLOGY: [phone] documented in this encounterPremier Health [facility] Center05-29-2025 History of Present illness Narrative* Elida Angelo APRN.CNP - 09/24/2024 11:00 AM EDT Images from the original note were not included. [facility] - [place] UROL [place] EXCHANGE NEW PATIENT UROLOGY VISIT 09/24/2024 7:33 AM PATIENT NAME: Karolina Ahn DATE OF : 1965 TODAY'S DATE: 09/24/2024 Referring Provider: Ric Taylor [facility] [address] Referring Note Reviewed: Yes Chief Complaint: bladder stone History of Present Illness: Ms. Ahn is a 59 year old female who presents to the office regarding bladder stone. She has hadsurgery with Dr Nicole twice in the past for bladder stones. She had a cystoscopy on 07/28/24, whichshowed a bladder stone (details below and see scanned documents). She has been referred by her [employer]ITY [employer]S ENGINEER office. Chart notes and results reviewed. Reports dysuria, pelvic pain x2 months. Symptoms today are present as they have been for the past 2months. S/p bladder sling, hysterectomy, rectocele repair with [...] bladder stones but due to position would likepatient to a specialist. Review of Systems Constitutional: Negative for fever. Genitourinary: Positive for dysuria and pelvic pain. Negative for difficulty urinating, flank pain,frequency, hematuria and urgency. See HPI Past Medical [...] tension free vaginal sling, cystoscopy (Dr. Luis, [facility]) VAGINAL HYSTERECTOMY 04/06/2014 LAVH, BSO, anterior and posterior repair (Dr. Muniz, [facility]) Social History: Social History Tobacco Use [...] , Taking? , Authorizing Provider Walt Ulrich APRN.EDUCATION ASSISTANT Medication phenazopyridine (PYRIDIUM) 200 mg tablet, Sig [...] (no units) Date Value 09/17/2022 Negative Specific Ward, Ur (no units) Date Value 09/17/2022 1.010 [...] schedule appt. Patient is agreeable. Elida Angelo APRN.EDUCATION ASSISTANT Consultation requested by Ric Taylor [address] [facility] [address] for an opinion regarding Karolina Ahn patient and my final recommendations will be communicated back to the requesting physician by way of shared Medical record or letter via US mail. Recording using [employer] software for draft documentation of the visit was discussed with the patient/authorized patient account representative; all questions welcomed and answered. Patient/authorized patient account representative agreed to proceed documented in this encounterPremier Health Atrium Medical Center05-29-2025 NoteHNO ID: [id number] Author: ELIDA ANGELO APRN.EDUCATION ASSISTANT Service: ? Author Type: Nurse Practitioner Type: Progress Notes Filed: 09/25/2024 12:20 Note Text: [facility] - [place] UROL [place] EXCHANGE NEW PATIENT UROLOGY VISIT 09/24/2024 7:33 AM PATIENT NAME: Karolina Ahn DATE OF : 1965 TODAY'S DATE: 09/24/2024 Referring Provider: Ric Taylor [address] [facility] [address] Referring Note Reviewed: Yes Chief Complaint: bladder [...] documents). She has been referred by her [employer]ITY SYSTEMS ENG[employer] office. Chart notes and results reviewed. Reports [...] tension free vaginal sling, cystoscopy (Dr. Luis, [facility]) VAGINAL HYSTERECTOMY 04/06/2014 LAVH, BSO, anterior and posterior repair (Dr. Muniz, [facility]) Social History: Social History Tobacco Use Smoking status: Never Smokeless tobacco: Never Vaping Use Vaping status: Never Used Substance Use Topics Alcohol use: No Drug use: No Medications: Prior to Admission medications : Medication baclofen vaginal suppository 10 mg (CPD), Sig Unwrap and insert 1 Suppository vaginally once daily as directed., Start Date 09/17/22, End Date , Taking? , Authorizing Provider Walt Ulrich, PASTRY ASSISTANT.EDUCATION ASSISTANT Medication phenazopyridine (PYRIDIUM) 200 mg tablet, Sig Take 1 tablet by mouth three times daily as needed., Start Date 10/12/21, End Date , Taking? , Authorizing Provider Bekah Redd, PASTRY ASSISTANT.CNM Medication apixaban (ELIQUIS ORAL), Sig Take by [...] (no units) Date Value 09/17/2022 Negative Specific Ward, Ur (no units) Date V (more content not included)...[facility]05-13-2025 Telephone encounter Note* Telephone Encounter - Ai Barksdale RN - 09/08/2024 10:09 AM EDT ABIMAEL:08/26/2024 Distance health with Ric Taylor APRN, EDUCATION ASSISTANT FOV: N/A S:Patient is wanting know about her urology referral B ASSESSMENT: (N94.10) Female dyspareunia (primary encounter diagnosis) (M62.838) Levator spasm (Z98.890) History of suburethral sling procedure (N21.0) Bladder stones PLAN: Bladder stone - explained will reach out to the team to determine if pt needs referred to urology for the bladderstone removal. Dyspareunia/levator spasm - discussed returning to PFPT after bladder stone removal Our team will reach out to the pt in the next week Ric Taylor APRN.LISANDRO R: Let patient know I will send her message to the HOSPITALIST PROGRAM DIRECTOR pool. Ai Barksdale RN [facility]05-13-2025 Miscellaneous Notes* Telephone Encounter - Ai Barksdale RN - 09/08/2024 10:09 AM EDT ABIMAEL:08/26/2024 Distance health with Ric Taylor APRN, CNP FOV: N/A S:Patient is wanting know about her urology referral B ASSESSMENT: (N94.10) Female dyspareunia (primary encounter diagnosis) (M62.838) Levator spasm (Z98.890) History of suburethral sling procedure (N21.0) Bladder stones PLAN: Bladder stone - explained will reach out to the team to determine if pt needs referred to urology for the bladderstone removal. Dyspareunia/levator spasm - discussed returning to PFPT after bladder stone removal Our team will reach out to the pt in the next week Ric Taylor APRN.LISANDRO R: Let patient know I will send her message to the HOSPITALIST PROGRAM DIRECTOR pool. Ai Barksdale RN documented in this encounterPremier Health At[facility] Center04-30-2025 NoteHNO ID: [id number] Author: RIC TAYLOR APRN.LISANDRO Service: ? Author Type: Nurse Practitioner Type: Progress Notes Filed: 08/26/2024 08:48 Note Text: VIRTUAL VISIT PROGRESS NOTE This is a virtual visit using [employer] Video Visit. It required patient-provider interaction for the medical decision making as documented below. I have communicated my name and active licensure. The patient's identity and physical location were verified at the time of this visit. Either the patient or their legal patient account representative has been informed of the risks [...] years ago (by 2 different doctors in [place]). Has been seen by Dr. Nicole, urologist [...] tension free vaginal sling, cystoscopy (Dr. Luis, [facility]) VAGINAL HYSTERECTOMY 04/06/2014 LAVH, BSO, anterior and posterior repair (Dr. Muniz, [facility]) FAMILY HISTORY Problem Relation Age of [...] diagnosis) (M62.838) Levator spas (more content not included)...[facility] 08-26-2024 History of Present illness Narrative* Ric Taylor APRN.[facility] - 08/26/2024 8:08 AM EDT VIRTUAL VISIT PROGRESS NOTE This is a virtual visit using [employer] Video Visit. It required patient- provider interaction for the medical decision making as documented below. I have communicated my name and active licensure. The patient's identity and physical location wereverified at the time of this visit. Either the patient or their legal patient account representative has been informed of the risks and benefits of -- and alternatives to -- treatment through a remote evaluation andconsents to proceed with the evaluation remotely. Karolina Ahn is a 59 year old female seen for vaginal atrophy, dyspareunia, high tone pelvic floor and bladder stone States she had SANDRA, bladder sling and rectocele repair ~10 years ago (by 2 different doctors in [place]). Has been seen by Dr. Nicole, urologist [...] tension free vaginal sling, cystoscopy (Dr. Luis, [facility]) VAGINAL HYSTERECTOMY 04/06/2014 LAVH, BSO, anterior and posterior repair (Dr. Muniz, [facility]) FAMILY HISTORY Problem Relation Age of [...] pt needs referred to urology for the bladderstone removal. 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 Goldberg [facility] October 03, 2022 7:35am Note Date/Time October 03, 2022 7:19a m [facility] Medical Records Department [address] [place] [address] History & Physical Exam 10/03/22705 MR#: [id number] Acct: [id number] Name: KAROLINA AHN Rep #:[id number] : 1965 57 From: Martine KU PCP: Dr. Jimbo Dash MD Status:REG S DC Location: [facility] HPI - General General Date of Service: 10/03/22 [...] Otherwise,she has no significant medical history including CAD/[place], COPD/asthma, CKD, CVA/TIA. She has no complaints today. Denies SOB, CP, F/C, N/V, palpitations, syncope. [facility] Medical History Anemia Anxiety Arthritis Bladder [...] by Martine KU> Cosigner Signature (if applicable): 10/03/2235 <Electronically signed by Reji Goldberg MD> CC: KINGS Nguyen; Dr. Reji Goldberg MD; Dr. Jimbo Dash MD~ Signed [facility] Work Phone: 1(126) 791-147301-02-2023 History of Present illness Narrative* Celia Hernandez APRN.EDUCATION ASSISTANT - 04/30/2022 5:12 PM EST This note [...] Utilized allergy pills during day. 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 Denies new lotions, soaps, or medicines. The history is provided by the patient. No brake engineer was used. Rash This is a new [...] - Celia Hernandez APRN.CNP documented in this encounterPremier Health At[facility] Center11-03-2022 Miscellaneous Notes* Telephone Encounter - Sadia Levine - 03/01/2022 11:29 AM EDT Faxed referral received twice from PCP Upon contacting PT by phone PT declined any appointment stating that she see's Dr. Bekah Redd and does not wish to schedule with [facility]. 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 She would like bladder sling looked at as well. Bekah Redd APRN.CNM documented in this encounterPrem[facility]-2022 Miscellaneous Notes* Telephone Encounter - [...] PCP. Bekah Redd APRN.CNM documented in this encounterPrem[facility]06-28-[facility]22 History of Present illness Narrative* Bekah Redd APRN.CNM - 10/24/2021 10:43 PM EDT Patient treated for UTI on 10/12/21. She completed antibiotics and reports still having urinary urgency and burning. Will send UA and culture. Bekah Redd APRN.CNM documented in this encounterPrem[facility]11-26-2008 History of Past illness Narrative* Problem Noted Date Resolved Date Incisional hernia without mention of obstruction or gangrene 03/24/2008 07/19/2009 Enthesopathy of unspecified site 10/09/2006 07/19/2009 Pain in limb 08/05/2006 07/19/2009 Stress fracture of the metatarsals 08/05/2006 07/19/2009 Other hammer toe (acquired) 02/27/200606/28 Bunion 02/27/2006 07/19/2009 Hallux valgus (acquired) 02/18/2006 010 documented as of this encounter (statuses as of 10/12/2021) [facility] History of Past illness Narrative* Problem Noted Date Resolved Date Incisional hernia without mention of obstruction or gangrene 03/24/2008 07/19/2009 Enthesopathy of unspecified site 10/09/2006 07/19/2009 Pain in limb 08/05/2006 07/19/2009 Stress fracture of the metatarsals 08/05/2006 07/19/2009 Other hammer toe (acquired) 02/27/200606/28 Bunion 02/27/2006 07/19/2009 Hallux valgus (acquired) 02/18/2006 010 documented as of this encounter (statuses as of 10/25/2021) [facility] History of Past illness Narrative* Problem Noted Date Resolved Date Incisional hernia without mention of obstruction or gangrene 03/24/2008 07/19/2009 Enthesopathy of unspecified site 10/09/2006 07/19/2009 Pain in limb 08/05/2006 07/19/2009 Stress fracture of the metatarsals 08/05/2006 07/19/2009 Other hammer toe (acquired) 02/27/200606/28 Bunion 02/27/2006 07/19/2009 Hallux valgus (acquired) 02/18/2006 010 documented as of this encounter (statuses as of 10/27/2021) [place] [address]-26-2008 History of Past illness Narrative* Problem Noted Date Resolved Date Incisional hernia without mention of obstruction or gangrene 03/24/2008 07/19/2009 Enthesopathy of unspecified site 10/09/2006 07/19/2009 Pain in limb 08/05/2006 07/19/2009 Stress fracture of the metatarsals 08/05/2006 07/19/2009 Other hammer toe (acquired) 02/27/200606/28 Bunion 02/27/2006 07/19/2009 Hallux valgus (acquired) 02/18/2006 010 documented as of this encounter (statuses as of 10/31/2021) [place] [address]-26-2008 History of Past illness Narrative* Problem Noted Date Resolved Date Incisional hernia without mention of obstruction or gangrene 03/24/2008 07/19/2009 Enthesopathy of unspecified site 10/09/2006 07/19/2009 Pain in limb 08/05/2006 07/19/2009 Stress fracture of the metatarsals 08/05/2006 07/19/2009 Other hammer toe (acquired) 02/27/200606/28 Bunion 02/27/2006 07/19/2009 Hallux valgus (acquired) 02/18/2006 010 documented as of this encounter (statuses as of 03/01/2022) [facility] History of Past illness Narrative* Problem Noted Date Resolved Date Incisional hernia without mention of obstruction or gangrene 03/24/2008 07/19/2009 Enthesopathy of unspecified site 10/09/2006 07/19/2009 Pain in limb 08/05/2006 07/19/2009 Stress fracture of the metatarsals 08/05/2006 07/19/2009 Other hammer toe (acquired) 02/27/200606/28 Bunion 02/27/2006 07/19/2009 Hallux valgus (acquired) 02/18/2006 010 documented as of this encounter (statuses as of 05/03/2022) [facility] History of Past illness Narrative* Problem Noted Date Resolved Date Incisional hernia without mention of obstruction or gangrene 03/24/2008 07/19/2009 Enthesopathy of unspecified site 10/09/2006 07/19/2009 Pain in limb 08/05/2006 07/19/2009 Stress fracture of the metatarsals 08/05/2006 07/19/2009 Other hammer toe (acquired) 02/27/200606/28 Bunion 02/27/2006 07/19/2009 Hallux valgus (acquired) 02/18/2006 010 documented as of this encounter (statuses as of 10/02/2022) [facility] CenterConsult note Author Buffy Garner [facility] Note Date/Time January 06, 2025 11:27[facility] Medical Records Department [address] [place] [address] Counseling Note - Pharmacy 01/06/25 1125 MR#: [id number] Acct: [id number] Name: KAROLINA AHN Rep #:[id number] : 1965 59 From: Buffy Garner PCP: Dr. Jimbo Dash MD Status:ADM I NO Y Location: [place] [address] [facility] Counseling Pharmacy Service has performed discharge medication reconciliation and counseling for this patient. Patient asked if Zofran had been sent to the pharmacy, I did not see one sent upon initial review. Called [facility] to check if they received an RX for Zofran and they had not. Contacted Martine Power, she will send a new script for Zofran. Patient notified. 1. ACETAMINOPHEN 650MG PO Q6H PRN PAIN 2. CLOPIDOGREL 75MG PO DAILY 3. OXYCODONE 5MG PO Q8H PRN PAIN The patient's discharge medication list was reviewed for discrepancies and discrepancies were resolved. The patient was counseled on the following discharge medications and changes in medications for homegoing were reviewed. The Reason for Use, instructions for use, and potential side effects were reviewed for all new medications. The patient's questions regarding all of their medications were answered. The patient was able to verbally demonstrate an understanding of their dischargemedications. Medications at Discharge Home Medications sertraline 100 mg tablet 50 mg PO BID anxiety 03/30/14 Cholecalciferol (Vitamin D3) [Vitamin D3] 5,000 unit PO DAILY supplement 03/07/20 cyanocobalamin (vitamin B-12) 5,000 mcg disintegrating tablet 3,000 mcg PO DAILYsupplement 03/07/20 omeprazole 20 mg tablet,delayed release 20 mg PO QHS reflux 03/07/20 pitavastatin calcium 2 mg tablet (Livalo) 4 mg PO QPM cholesterol 02/08/22 cetirizine 10 mg capsule (Zyrtec) 10 mg PO DAILY allergies 04/12/22 dicyclomine 20 mg tablet 20 mg PO BID IBS 10/02/22 tizanidine 2 mg tablet 2 mg PO QHS PRN muscle spasticity #14 tabs 12/10/23 enoxaparin 60 mg/0.6 mL subcutaneous syringe (Lovenox) 60 mg (0.6 mL) subcut Q12H 30 days #36 mL 12/28/24 ferrous sulfate 137 mg (45 mg iron) tablet,extended release (Slow Fe) 137 mg PO DAILY 01/04/25 acetaminophen 325 mg tablet 650 mg (2 x 325 mg) PO Q6H PRN PRN Pain 1-10 Or Fever >100.7 #0 tabs 01/06/25 clopidogrel 75 mg tablet 75 mg PO DAILY #90 tabs 01/06/25 ondansetron HCl 4 mg tablet 4 mg PO BID PRN PRN nausea/vomiting 5 days #10 tabs 01/06/25 oxycodone 5 mg tablet 5 mg PO Q8H PRN PRN Pain Score 4-10 5 days #15 tabs 01/06/25 01/06/25 1127 <Electronically signed by Buffy Garner> Date _ Buffy Garner Cosigner Signature (if applicable): Date CC: ~ Signed [facility] Work Phone: Discharge summary Author Deep Lion [facility] Note Date/Time December 11, 2024 9: 25am [facility] Medical Records Department [address] [place] [address] Emergency Department Summary 12/11/24 MR#: [id number] Acct: [id number] Name: KAROLINA AHN Rep #:[id number] : 1965 59 From: Deep Lion MD [...] % (Auto) 52.4 Lymph % (Auto) 30.7 [place] % (Auto) 7.8 Eos % (Auto) 7.8 [...] distal to the popliteal artery. Reading Location: [facility] Management Discussion w/another healthcare provider: Sewage Plant Operator (Spoke with Dr. Goldberg. This was documented the MDM portion of the EMR.) Discharge Plan Triage Chief Complaint: Lower Extremity Injury ED Provider: Deep Lion Dx/Rx/DC Orders Clinical Impression: Phlegmasia cerulea dolens of left lower extremity, Sinus tachycardia, Acute pain of left lower extremity Instructions: ED Deep Vein Thrombosis (DVT) Prescriptions: New Eliqu DVT-PE Treat 30D Start 5 mg (74 [...] to the emergency department immediately Print Language: Liberian Disposition Disposition: Home, Self Care What to do if you have Problems For any increased pain, shortness of breath, bleeding, nausea or vomiting, chestpain, or any unexpected problems, contact your Primary Care Provider. Call [facility] ([phone]) or report to the closest Emergency Room. Call 911 if necessary. 12/11/24924 <Electronically signed by Deep Lion MD> Cosigner Signature (if applicable): CC: Dr. Jimbo Dash MD ~ Signed [facility] Work Phone: Evaluation note* Diagnosis Dysuria- Primary documented in this encounter [facility] note* Diagnosis Dysuria- Primary documented in this encounter [facility] note* Diagnosis Dysuria- Primary Vaginal atrophy Postmenopausal atrophic vaginitis documented in this encounter [facility] note* Diagnosis Other specified dyspareunia- Primary Vaginal atrophy Postmenopausal atrophic vaginitis Vaginismus documented in this encounter [facility] noteNo assessment information availableWCleveland Clinic Fairview [facility] Work Phone: Evaluation note* Diagnosis Onset Date Resolution Status Family history of colon cancer in mother acute Urinary tract infection none active [facility] Work Phone: Evaluation note* Diagnosis Dermatitis- Primary Contact dermatitis and other eczema, due to unspecified cause [facility] Diagnosis Onset Date Resolution Status H/O deep venous thrombosis c hronic Varicose vein of leg chronic H/O deep venous thrombosis c hronic Varicose vein of leg chronic [facility] Work Phone: Evaluation note* Diagnosis Onset Date Resolution Status H/O deep venous thrombosis c hronic Varicose vein of leg chronic H/O deep venous thrombosis c hronic Varicose vein of leg chronic Microhematuria acute Symptomatic varicose veins of both lower extremities acute Vulvar varicose veins acute H/O deep venous thrombosis c [facility] Work Phone: Evaluation note* Diagnosis Onset Date Resolution Status H/O deep venous thrombosis c hronic Varicose vein of leg chronic Microhematuria acute Symptomatic varicose veins of both lower extremities acute Vulvar varicose veins acute H/O deep venous thrombosis c [facility] Work Phone: Evaluation note* Diagnosis Onset Date Resolution Status Microhematuria acute Symptomatic varicose veins of both lower extremities acute Vulvar varicose veins acute H/O deep venous thrombosis c hronic Symptomatic varicose veins of both lower extremities acute Vulvar varicose veins acute H/O deep venous thrombosis c hronic Symptomatic varicose veins of both lower extremities acute Vulvar varicose veins acute [facility] Work Phone: Evaluation note* Diagnosis Onset Date [...] extremities acute H/O deep venous thrombosis c [facility] Work Phone: Evaluation note* Diagnosis Onset Date Resolution Status Acute upper respiratory infection acute Contact with or suspected ex posure to other viral communicable disease acute [facility] Work Phone: Evaluation note* Diagnosis Female dyspareunia- Primary Dyspareunia Levator spasm Abnormal involuntary movements History of suburethral sling procedure Bladder stones Other calculus in bladder [facility] Diagnosis Bladder stone- Primary Other calculus in bladder [facility] encounter [facility] Diagnosis Bladder stone Other calculus in bladder documented in this encounter [facility]* Diagnosis Bladder stone- Primary Other calculus in bladder Erosion of bladder suspension mesh, sequela [facility]* Diagnosis Bladder stone- Primary Other calculus in bladder Erosion of bladder suspension mesh, sequela documented [facility] this encounter [facility]* Diagnosis Closed nondisplaced fracture of distal phalanx of lesser toe of left foot, initial encounter- Primary Injury of toe on left foot, initial encounter documented in this encounter [facility]* Diagnosis Infection in abdomen (HCC) Unspecified peritonitis documented in this encounter [facility]* Diagnosis Acute deep vein thrombosis (DVT) of proximal vein of left lower extremity (HCC)- Primary Left leg swelling Acute deep vein thrombosis (DVT) of proximal vein of left lower extremity (HCC) Left leg swelling [facility] Discharge instructionsAdditional Instructions If you develop chest pain, shortness of breath walking across the room or up steps or your leg becomes pale and the pain increases return to the emergency department immediatelyWCleveland Clinic Fairview Hospital Work Phone: spital Discharge instructionsAdditional Instructions 1. Dr. Reji Goldberg will contact you after he reviews your venous duplex study that is ordered for tomorrow morning. 2. Discontinue the apixaban. 3. A prescription for Lovenox was sent to your pharmacy. Start the Lovenox this evening.[facility] Work Phone: spital Discharge instructionsAdditional Instructions - You may remove the bandages behind both knees tomorrow; as long as you have no oozing/drainage you may leave these sites open to air. You have a follow-up appointment scheduled in the office 01/14 and the sutures will be removed at that time. - You may shower tomorrow morning; it is OK for soap/water to rinse over the suture site, pat gently to dry. No baths/swimming or otherwise submerging the sites. - Continue Lovenox 60mg subcutaneously every 12 hours for now. Continue Plavix 75mg daily. - I have sent oxycodone 5mg tablet to be taken by mouth every 8 hours as needed for pain; you may use this in addition to Tylenol. I have also sent a course of Zofran for nausea. - We will plan to recheck your hemoglobin next week to continue to monitor your anemia. - Please call the office at [phone] with any questions/concerns.[facility] Work Phone: Hospital Discharge instructionsAmbulatory Orders* Gastroenterology Location: None Selected [facility] Work Phone: Progress note Author Martine Power [facility] Note Date/Time January 21, 2025 12:41pm [facility] [address] [place] [address] OFFICE VISIT Date of Service: 01/21/25 MR#: [id number] Acct: [id number] Name: KAROLINA AHN Rep #: [id number] : 1965 Provider: KINGS Sidhu Age/Sex: 59/F Location: [facility] Status: Signed Intake Vital Signs 01/04/25 16:12 Height 5 ft 4 in Intake Visit Reasons: 1 WK FU Chief Complaint: CONCERNS FOR SINUS INFECTION Allergies hydrocodone (From Vicodin) Allergy (Verified 01/13/25 14:09) Nausea/Vom/Diarrhea PFSH Medical History (Updated 01/21/25 @ 12:49 by KINGS Sidhu) GERD (gastroesophageal reflux disease) DVT (deep venous thrombosis) Loss of hearing Wears glasses Arthritis Bladder disease Restless legs Difficulty swallowing Gastric reflux Non-smoker [...] who presents to the office today for 1 week surgical site check. Recall she is s/p percutaneous mechanical thrombectomy the left common and external iliac veins and angioplasty bilateral common iliac veins, left external iliac vein on 01/05/25. At last OV, sutures from b/l popliteal fossaaccess sites were removed; there were signs of cellulitis at the L access site so she was initiated on Bactrim and Keflex. She had updated labs last week as well which demonstrated normal WBC, Hgb stable/improving at 9.7. She reports the redness around the L popliteal fossa site started to improve significantly about 24 hours after suture was removed/antibiotics started. The area is less swollen and feels much better. She needs Lovenox refills. She needs Zofran refill; she is still having intermittent persistent nausea, sometimes with associated burning like heartburnbut not always, no clear associated with eating, does not improve with antacids,she does take omeprazole daily, she is not currently taking any pain medications. She is overdue for screening colonoscopy as well; no history of gastric ulcers, no melanotic stools. Exam Const General: cooperative, healthy appearing, comfortable and no acute distress Orientation: alert, awake and oriented x3 HENMT Head: normocephalic and atraumatic Ears: hearing grossly normal bilaterally Eyes General: appearance normal, both eyes and all related structures Resp Effort & Inspection: able to speak in complete sentences, no grunting, not labored, no respiratory distress and no retractions Skin Other: L popliteal fossa with only very small area of residual mild erythema without fluctuance/induration/excess warmth or tenderness to palpation. Skin is healed, no drainage. Psych Appearance: grossly normal Affect: normal affect Speech and Movement: speech and movement normal Attitude: cooperative Coding Level of Care Code No Charge Diagnoses Obstruction of iliac vein I87.1 Acute deep vein thrombosis (DVT) of iliac vein of left lower extremity I82.422 DVT location: lower extremity Affected thrombotic vein of extremity: iliac Chronicity: acute Laterality: left Assessment and Plan Assessment and Plan (1) Obstruction of iliac vein: Status: Acute (2) DVT (deep venous thrombosis): Status: Acute Qualifiers: DVT location: lower extremity Affected thrombotic vein of extremity: iliac Chronicity: acute Laterality: left Qualified Code(s): I82.422 - Acute embolism and thrombosis of left iliac vein Orders: Referrals Gastroenterology K21.9 - Gastro-esophageal reflux disease without esophagitis,R11.0 - Nausea, Z12.11 - Encounter for screening for malignant neoplasm of colon Medications: Changed From sulfamethoxazole-trimethoprim 800-160 mg (Bactrim DS) 1 TAB PO BID 7 days 14 tabs 0RF To sulfamethoxazole-trimethoprim 800-160 mg (Bactrim DS) 1 TAB PO BID 10 tabs 0RF 5 days Refilled ondansetron HCl 4 mg PO BID PRN PRN 10 tabs 0RF nausea/vomiting 5 days enoxaparin (Lovenox) 60 mg (0.6 mL) subcut Q12H 36 mL 1RF 30 days Plan Will send 5 more days of Bactrim due to mild residual erythema but overall L popliteal fossa access site is much improved in appearance; she will complete antibiotics and then monitor for recurrent symptoms and notify the office if these occur. Will refill Lovenox. Will refill Zofran but also refer to GI given persistent nausea and also need for screening colonoscopy. Plan for return to the office as scheduled in February, but sooner with any concerns. 01/21/25 1421 <Electronically signed by Martine KU> Date _ Martine KU 01/21/25 1556<Electronically signed by Reji oGldberg MD> Cosigner Signature: Date (if applicable) Reji Goldberg MD CC: Dr. Jimbo Dash MD ~ [facility] Work Phone: Reason for referral (narrative)No reason for referral information availableWCleveland Clinic Fairview Hospital Work Phone: Reason for visit Narrative* Diagnostic Procedure Only (Urgent) - Closed Specialty Diagnoses / Procedures Referred By Contac t Referred To Contact XR IMAGING Diagnoses Injury of toe on left foot, initial encounter Procedures XR TOE AP/LAT/OBL LEFT RADEX TOE MINIMUM 2 VIEWS Marguerite Daily APRN.EDUCATION ASSISTANT [address] [place] [address] Phone: tel: fax: [place] [address] Referral ID Status Reason Start Date Expiration Date V isits Requested Visits Authorized [id number] Closed Auto-Generate d Referral 12/08/2024 01/07/2026 1 1 [facility] for visit Narrative* MRI/CT (Routine) - Closed Specialty Diagnoses / Procedures Referred By Contac t Referred To Contact MR IMAGING Diagnoses Infection in abdomen (HCC) Procedures MRI FEMALE PELVIS WO/W IVCON MRI PELVIS W/O & W/CONTRAST MATERIAL Fátima Santillan MD [address] [place] [address] Phone: tel: fax: [place] [address] Referral ID Status Reason Start Date Expiration Date V isits Requested Visits Authorized [id number] Closed Auto-Generate d Referral 10/29/2024 01/29/2025 1 1 [facility] Advance Directives No Advanced Directives Records FoundDocuments on File Type Date Recorded Patient Account Executive Software Sales Expl anation Advance Directive(s) Documents on File Type Date Recorded Patient Account Executive Software Sales Expl anation Advance Directive(s) Advance Directive Response Recorded Date/ Time Advance Directives No November 03 1:50pm Living Will No March 07 3:26pm Power of Silver Cleaner No March 07, 2020 3:26pm Advance Directive Response Recorded Date/ Time Advance Directives No November 03 1:50pm Living Will No February 08 9:47am Power of Silver Cleaner No February 08, 2022 9:47am Advance Directive Response Recorded Date/ Time Advance Directives No November 03 12:50pm Living Will No February 08 8:47am Power of Silver Cleaner No February 08, 2022 8:47am Advance Directive Response Recorded Date/ Time Advance Directives No October 03 7:30am Living Will No Dory 7th, 2023 7 :30am Power of Silver Cleaner No October 03, 2022 7:30am Advance Directive Response Recorded Date/ Time Advance Directives No October 03 6:30am Living Will No October 03, 2022 6 :30am Power of Silver Cleaner No October 03, 2022 6:30am Advance Directive Response Recorded Date/ Time Living Will Yes June 11 3:28pm Power of Silver Cleaner Yes June 11, 2024 3:28pm Name of Medical Power of Silver Cleaner Liseth bryant June 11, 2024 3:28pm Living Will No November 28, 2023 4:00pm Power of Silver Cleaner No November 27 4:00pm Advance Directives No October 03 7:30am Advance Directive Response Recorded Date/ Time Living Will Yes June 11 3:28pm Do you have a Healthcare Pow er of Silver Cleaner? Yes June 11, 2024 3:28pm Name of Medical Power of Silver Cleaner Liseth bryant June 11, 2024 3:28pm Living Will No November 28, 2023 4:00pm Do you have a Healthcare Pow er of Silver Cleaner? No November 28, 2023 4:00pm Advance Directives No October 03 7:30am Advance Directive Response Recorded Date/ Time Living Will No November 28, 2023 4:00pm Do you have a Healthcare Power of Silver Cleaner? No November 28, 2023 4:00pm Advance Directives No October 03 7:30am Advance Directive Response Recorded Date/ Time Living Will No November 28, 2023 4:00pm Do you have a Healthcare Power of Silver Cleaner? No November 28, 2023 4:00pm Do you have a Healthcare Power of Silver Cleaner? No December 11, 2024 6:52am Advance Directives No October 03 7:30am Date Activated Date Inactivated Comments 12/15/2024 1:00 AM 12/17/2024 11:36 PM Advance Directive Response Recorded Date/ Time Do you have a Healthcare Power of Silver Cleaner? No December 11, 2024 6:52am Do you have a Healthcare Power of Silver Cleaner? Yes December 28, 2024 3:41pm Advance Directives No December 21, 2024 1:23pm Advance Directive Response Recorded Date/ Time Advance Directives No December 21, 2024 1:23pm Do you have a Healthcare Power of Silver Cleaner? No December 11, 2024 6:52am Do you have a Healthcare Power of Silver Cleaner? Yes December 28, 2024 3:41pm Advance Directive Response Recorded Date/ Time Do you have a Healthcare Power of Silver Cleaner? No December 11, 2024 6:52am Do you have a Healthcare Power of Silver Cleaner? Yes December 28, 2024 3:41pm Advance Directives on File No 2024 7:17am Living Will No January 04 7:17am Do you have a Healthcare Power of Silver Cleaner? Yes January 04, 2025 4:07pm Advance Directives No October 03 7:30am Reason for Referral Specialty Diagnoses / Procedures Referred By Santa hernandez Referred To Contact Diagnoses Other specified dyspareunia Vaginal atrophy Vaginismus Procedures CONSULT TO URO GYNECOLOGY OFFICE/OUTPATIENT [facility] 60-74 MINUTES Bekah Redd APRN.MERLY [address] [place] [address] Referral ID Status Reason Start Date Expiration Date Visits Requested Visits Authorized [id number] Authorized PCP Requested Referral Auto-Generate d Referral 10/30/2021 10/30/2022 1 1 Chief Complaint and Reason for Visit Chief Complaint COLONOSCOPY Urinary tract infection Reason for Visit Family history of co lazaro cancer in mother Urinary tract infection Chief Complaint COLONOSCOPY Urinary tract infection 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 Visit Family history of co lazaro cancer in mother Urinary tract infection Chief Complaint COLONOSCOPY Urinary tract infection [employer] GROSS HEMATURIA CYSTO, PELVIC EXAM Reason for Visit Family history of co lazaro cancer in mother Urinary tract infection Chief [...] lower leg December 11, 2024 6: 48am Chief Complaint Admit Date BLADDER STONE October 13, 2024 7:02 pm lower leg December 11, 2024 6: 48am lower extrimty December 28, 2024 3:04pm Chief Complaint Admit Date BLADDER STONE October 13, 2024 7:02 pm lower leg December 11, 2024 6: 48am LT LEG SWELLING December 11, 2024 8: 10am lower extrimty December 28, 2024 3:04pm Pain December 29, 2024 11:09am ER/DVT FU December 31, 2024 9:12am Chief Complaint Admit Date BLADDER STONE October 13, 2024 7:02 pm lower leg December 11, 2024 6: 48am LT LEG SWELLING December 11, 2024 8: 10am lower extrimty December 28, 2024 3:04pm Pain December 29, 2024 11:09am ER/DVT FU December 31, 2024 9:12am Acute embolism and thrombosis of unspeci fied deep January 04, 2025 4:12pm Acute embolism and thrombosis of unspeci fied deep January 04, 2025 4:22pm Acute embolism and thrombosis of unspeci fied deep January 05, 2025 11:48am Acute embolism and thrombosis of unspeci fied deep January 06, 2025 9:08am Reason for Visit Admit Date DVT (deep venous thrombosis) December 312024 9:12am 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, 2024 9:12am DVT (deep venous thrombosis) January 042024 4:12pm Obstruction of iliac vein January 04, 2025 4:12pm Chief Complaint Admit Date BLADDER STONE October 13, 2024 7:02 pm lower leg December 11, 2024 6: 48am LT LEG SWELLING December 11, 2024 8: 10am lower extrimty December 28, 2024 3:04pm Pain December 29, 2024 11:09am ER/DVT FU December 31, 2024 9:12am Acute embolism and thrombosis of unspeci fied deep January 04, 2025 4:12pm Acute embolism and thrombosis of unspeci fied deep January 04, 2025 4:22pm Acute embolism and thrombosis of unspeci fied deep January 05, 2025 11:48am Acute embolism and thrombosis of unspeci fied deep January 06, 2025 9:08am post op January 13, 2025 1:45pm Reason for Visit Admit Date 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, 2024 9:12am DVT (deep venous thrombosis) December 312024 9:12am Obstruction of iliac vein January 04, 2025 4:12pm DVT (deep venous thrombosis) January 042024 4:12pm Chief Complaint Admit Date BLADDER STONE October 13, 2024 7:02 pm lower leg December 11, 2024 6: 48am LT LEG SWELLING December 11, 2024 8: 10am lower extrimty December 28, 2024 3:04pm Pain December 29, 2024 11:09am ER/DVT FU December 31, 2024 9:12am Acute embolism and thrombosis of unspeci fied deep January 04, 2025 4:12pm Acute embolism and thrombosis of unspeci fied deep January 04, 2025 4:22pm Acute embolism and thrombosis of unspeci fied deep January 05, 2025 11:48am Acute embolism and thrombosis of unspeci fied deep January 06, 2025 9:08am post op January 13, 2025 1:45pm 1 WK FU January 21, 2025 12:29pm Reason for Visit Admit Date DVT (deep venous thrombosis) December 312024 9:12am 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, 2024 9:12am DVT (deep venous thrombosis) January 042024 4:12pm Obstruction of iliac vein January 04, 2025 4:12pm DVT (deep venous thrombosis) December 282024 1:45pm Obstruction of iliac vein December 1:45pm DVT (deep venous thrombosis) December 292024 12:29pm Obstruction of iliac vein December 12:29pm Family History No Family History Records Found [...] or prosecute any alcohol or drug abuse patient.[facility] CenterIn the event this information is protected by the Federal Confidentiality of Alcohol and Drug Abuse Patient Records regulations: The Federal rules restrict any use of the information to criminally investigate or prosecute any alcohol or drug abuse patient.[facility] CenterIn the event this information is protected by the Federal Confidentiality of Alcohol and Drug Abuse Patient Records regulations: The Federal rules restrict any use of the information to criminally investigate or prosecute any alcohol or drug abuse patient.[facility] CenterIn the event this information is protected by the Federal Confidentiality of Alcohol and Drug Abuse Patient Records regulations: The Federal rules restrict any use of the information to criminally investigate or prosecute any alcohol or drug abuse patient.[facility] CenterIn the event this information is protected by the Federal Confidentiality of Alcohol and Drug Abuse Patient Records regulations: The Federal rules restrict any use of the information to criminally investigate or prosecute any alcohol or drug abuse patient.[facility] CenterIn the event this information is protected by the Federal Confidentiality of Alcohol and Drug Abuse Patient Records regulations: The Federal rules restrict any use of the information to criminally investigate or prosecute any alcohol or drug abuse patient.[facility] CenterIn the event this information is protected by the Federal Confidentiality of Alcohol and Drug Abuse Patient Records regulations: The Federal rules restrict any use of the information to criminally investigate or prosecute any alcohol or drug abuse patient.[facility] CenterIn the event this information is protected by the Federal Confidentiality of Alcohol and Drug Abuse Patient Records regulations: The Federal rules restrict any use of the information to criminally investigate or prosecute any alcohol or drug abuse patient.[facility] CenterIn the event this information is protected by the Federal Confidentiality of Alcohol and Drug Abuse Patient Records regulations: The Federal rules restrict any use of the information to criminally investigate or prosecute any alcohol or drug abuse patient.[facility] CenterIn the event this information is protected by the Federal Confidentiality of Alcohol and Drug Abuse Patient Records regulations: The Federal rules restrict any use of the information to criminally investigate or prosecute any alcohol or drug abuse patient.[facility] CenterIn the event this information is protected by the Federal Confidentiality of Alcohol and Drug Abuse Patient Records regulations: The Federal rules restrict any use of the information to criminally investigate or prosecute any alcohol or drug abuse patient.[facility] CenterIn the event this information is protected by the Federal Confidentiality of Alcohol and Drug Abuse Patient Records regulations: The Federal rules restrict any use of the information to criminally investigate or prosecute any alcohol or drug abuse patient.[facility] CenterIn the event this information is protected by the Federal Confidentiality of Alcohol and Drug Abuse Patient Records regulations: The Federal rules restrict any use of the information to criminally investigate or prosecute any alcohol or drug abuse patient.[facility] CenterIn the event this information is protected by the Federal Confidentiality of Alcohol and Drug Abuse Patient Records regulations: The Federal rules restrict any use of the information to criminally investigate or prosecute any alcohol or drug abuse patient.[facility] CenterIn the event this information is protected by the Federal Confidentiality of Alcohol and Drug Abuse Patient Records regulations: The Federal rules restrict any use of the information to criminally investigate or prosecute any alcohol or drug abuse patient.[facility] CenterIn the event this information is protected by the Federal Confidentiality of Alcohol and Drug Abuse Patient Records regulations: The Federal rules restrict any use of the information to criminally investigate or prosecute any alcohol or drug abuse patient.[facility] CenterIn the event this information is protected by the Federal Confidentiality of Alcohol and Drug Abuse Patient Records regulations: The Federal rules restrict any use of the information to criminally investigate or prosecute any alcohol or drug abuse patient.[facility] CenterIn the event this information is protected by the Federal Confidentiality of Alcohol and Drug Abuse Patient Records regulations: The Federal rules restrict any use of the information to criminally investigate or prosecute any alcohol or drug abuse patient.[facility] CenterIn the event this information is protected by the Federal Confidentiality of Alcohol and Drug Abuse Patient Records regulations: The Federal rules restrict any use of the information to criminally investigate or prosecute any alcohol or drug abuse patient.[facility] CenterIn the event this information is protected by the Federal Confidentiality of Alcohol and Drug Abuse Patient Records regulations: The Federal rules restrict any use of the information to criminally investigate or prosecute any alcohol or drug abuse patient.[facility] Teams (unrecognized sec tion and content) Head Of Art Relationship Specialty Start Date End Date Jimbo Dash MD PCP - General Family Practice 02/13/16 Jimbo Dash MD Family Practice 02/13/16 Head Of Art Relationship Specialty Start Date End Date Jimbo Dash MD PCP - General Family Practice 02/13/16 Jimbo Dash MD Family Practice 02/13/16 Head Of Art Relationship Specialty Start Date End Date Jimbo Dash MD PCP - General Family Practice 02/13/16 Jimbo Dash MD Family Practice 02/13/16 Head Of Art Relationship Specialty Start Date End Date Jimbo Dash MD PCP - General Family Practice 02/13/16 Jimbo Dash MD Family Practice 02/13/16 Head Of Art Relationship Specialty Start Date End Date Jimbo Dash MD PCP - General Family Medicine 02/13/16 Jimbo Dash MD Family Medicine 02/13/16 Head Of Art Relationship Specialty Start Date End Date Jimbo [...] Active Dr. Reji Goldberg MD Active Martine Biedenharn PA, PA Attending Provider [...] Dash MD Primary Care Provider Active Martine Biedenharn PA, PA Attending Provider, Referrin g Provider [...] Referring Provider, Other Provide r Active Martine Biedenharn , PA Attending Provider [...] Attending Provider, Referring Provider, Other Provider Active KINGS Blackmon Active Team Status: Inactive Member Role Status [...] Provider Active Start: June 11, 2024 Dr. Reij Goldberg MD Attending Provider Active S tart: [...] Provider Active S tart: July 14, 2024 Head Of Art Relationship Specialty Start Date End Date Jimbo Dash MD PCP - General Family Medicine 02/13/16 Jimbo Dash MD Family Medicine 02/13/16 Head Of Art Relationship Specialty Start Date End Date Jimbo Dash MD PCP - General Family Medicine 02/13/16 Jimbo Dash MD Family Medicine 02/13/16 Head Of Art Relationship Specialty Start Date End Date Jimbo Dash MD PCP - General Family Medicine 02/13/16 Jimbo Dash MD Family Medicine 02/13/16 Head Of Art Relationship Specialty Start Date End Date Jimbo Dash MD PCP - General Family Medicine 02/13/16 Jimbo Dash MD Family Medicine 02/13/16 Head Of Art Relationship Specialty Start Date End Date Jimbo [...] 2024 PETEY MILLER Attending Provider Active Start: Loly cat 2024 End: October 13, 2024 PETEY MILLER Referring Provider Active Start: Loly cat 2024 End: October 13, 2024 Head Of Art Relationship Specialty Start Date End Date Jimbo Dash MD PCP - General Family Medicine 02/13/16 Jimbo Dash MD Family Medicine 02/13/16 Head Of Art Relationship Specialty Start Date End Date Jimbo Dash MD PCP - General Family Medicine 02/13/16 Jimbo Dash MD Family Medicine 02/13/16 Head Of Art Relationship Specialty Start Date End Date Jimbo Dash MD PCP - General Family Medicine 02/13/16 Jimbo Dash MD Family Medicine 02/13/16 Head Of Art Relationship Specialty Start Date End Date Jimbo Dash MD PCP - General Family Medicine 02/13/16 Jimbo Dash MD Family Medicine 02/13/16 Head Of Art Relationship Specialty Start Date End Date Jimbo Dash MD PCP - General Family Medicine 02/13/16 Jmibo Dash MD Family Medicine 02/13/16 Team Status: [...] December 11, 2024 End: December 11, 2024 Head Of Art Relationship Specialty Start Date End Date Jimbo Dash MD PCP - General Family Medicine 02/13/16 Jimbo Dash MD Family Medicine 02/13/16 Head Of Art Relationship Specialty Start Date End Date Jimbo Dash MD PCP - General Family Medicine 02/13/16 Jimbo Dash MD Family Medicine 02/13/16 Team Status: Inactive Member Role/Relationship Status Dates Dr. Jimbo Dash MD Primary Care Provider Active Start: October 13, 2024 End: October 13, 2024 PETEY MILLER Attending Provider Active Start: [facility] 2024 End: October 13, 2024 PETEY MILLER Referring Provider Active Start: [facility] 2024 End: October 13, 2024 Team Status: Inactive Member Role/Relationship Status Dates Dr. Jimbo Dash MD Primary Care Provider Active Start: October 27, 2024 Dr. April Nicole MD Attending Provider Active Start: October 27, 2024 Team Status: Inactive Member Role/Relationship Status Dates Dr. Jimbo Dash MD Primary Care Provider Active Start: December 11, 2024 End: December 11, 2024 Dr. Deep Lion MD Attending Provider Active Sta rt: December 11, 2024 End: December 11, 2024 Dr. Deep Lion MD Emergency Provider Active Sta rt: December 11, 2024 End: December 11, 2024 Team Status: Inactive Member Role/Relationship Status Dates Dr. Jimbo Dash MD Primary Care Provider Active Start: December 28, 2024 End: December 28, 2024 Dr. Deep Lion MD Emergency Provider Active Sta rt: December 28, 2024 End: December 28, 2024 Team Status: Active Member Role/Relationship Status Dates Dr. Jose Blue MD Attending Provider Active Start: December 11, 2024 Dr. Deep Lion MD Referring Provider Active Sta rt: December 11, 2024 Team Status: Inactive Member Role/Relationship Status Dates Dr. Jimbo Dash MD Primary Care Provider Active Start: December 28, 2024 End: December 28, 2024 Dr. Deep Lion MD Emergency Provider Active Sta rt: December 28, 2024 End: December 28, 2024 Team Status: Active Member Role/Relationship Status Dates Dr. Jimbo Dash MD Primary Care Provider Active Start: December 29, 2024 Dr. Deep Lion MD Attending Provider Active Sta rt: December 29, 2024 Dr. Deep Lion MD Referring Provider Active Sta rt: December 29, 2024 Team Status: Active Member Role/Relationship Status Dates Dr. Jimbo Dash MD Primary Care Provider Active Start: December 29, 2024 Dr. Reji Goldberg MD Attending Provider Active S tart: December 29, 2024 Team Status: Inactive Member Role/Relationship Status Dates Dr. Jimbo Dash MD Primary Care Provider Active Start: December 31, 2024 End: December 31, 2024 Dr. Jimbo Dash MD Referring Provider Active Start: December 31, 2024 End: December 31, 2024 KINGS Sidhu Attending Provider Active Star t: December 31, 2024 End: December 31, 2024 Team Status: Inactive Member Role/Relationship Status Dates Dr. Jimbo Dash MD Primary Care Provider Active Start: December 28, 2024 End: December 28, 2024 Dr. Deep Lion MD Attending Provider Active Sta rt: December 28, 2024 End: December 28, 2024 Dr. Deep Lion MD Emergency Provider Active Sta rt: December 28, 2024 End: December 28, 2024 Team Status: Inactive Member Role/Relationship Status Dates Dr. Reji Goldberg MD Admit Provider Active Start : January 04, 2025 End: January 06, 2025 Dr. Reji Goldberg MD Attending Provider Active S tart: January 04, 2025 End: January 06, 2025 Dr. Reji Goldberg MD Referring Provider Active S tart: January 04, 2025 End: January 06, 2025 Dr. Jimbo Dash MD Primary Care Provider Active Start: January 04, 2025 End: January 06, 2025 Team Status: Active Member Role/Relationship Status Dates Dr. Reji Goldberg MD Admit Provider Active Start : January 04, 2025 Dr. Reji Goldberg MD Attending Provider Active S tart: January 04, 2025 Dr. Reji Goldberg MD Referring Provider Active S tart: January 04, 2025 Dr. Reji Goldberg MD Other Provider Active Start : January 04, 2025 Dr. Jimbo Dash MD Primary Care Provider Active Start: January 04, 2025 Team Status: Active Member Role/Relationship Status Dates Dr. Reji Goldberg MD Admit Provider Active Start : January 05, 2025 Dr. Reji Goldberg MD Attending Provider Active S tart: January 05, 2025 Dr. Reji Goldberg MD Referring Provider Active S tart: January 05, 2025 Dr. Reji Goldberg MD Other Provider Active Start : January 05, 2025 Dr. Jimbo Dash MD Primary Care Provider Active Start: January 05, 2025 Team Status: Active Member Role/Relationship Status Dates Dr. Reji Goldberg MD Admit Provider Active Start : January 06, 2025 Dr. Reji Goldberg MD Referring Provider Active S tart: January 06, 2025 Dr. Reji Goldberg MD Other Provider Active Start : January 06, 2025 Dr. Jimbo Dash MD Primary Care Provider Active Start: January 06, 2025 KINGS Sidhu Attending Provider Active Star t: January 06, 2025 Team Status: Inactive Member Role/Relationship Status Dates Dr. Jimbo Dash MD Primary Care Provider Active Start: December 29, 2024 End: December 29, 2024 Dr. Deep Lion MD Attending Provider Active Sta rt: December 29, 2024 End: December 29, 2024 Dr. Deep Lion MD Referring Provider Active Sta rt: December 29, 2024 End: December 29, 2024 Team Status: Active Member Role/Relationship Status Dates Dr. Jimbo Dash MD Primary care physician Active Team Status: Inactive Member Role/Relationship Status Dates Dr. Jimbo Dash MD Primary care physician Active Start: October 13, 2024 End: October 13, 2024 PETEY MILLER Attending physician Active Start: Aneta mcdonnell 2024 End: October 13, 2024 PETEY MILLER Referring Provider Active Start: Loly 2024 End: October 13, 2024 Team Status: Inactive Member Role/Relationship Status Dates Dr. Jimbo Dash MD Primary care physician Active Start: October 27, 2024 Dr. April Nicole MD Attending physician Active Start: October 27, 2024 Team Status: Inactive Member Role/Relationship Status Dates Dr. Jimbo Dash MD Primary care physician Active Start: December 11, 2024 End: December 11, 2024 Dr. Deep Lion MD Attending physician Active St art: December 11, 2024 End: December 11, 2024 Dr. Deep Lion MD Emergency Department Physician Acti ve Start: December 11, 2024 End: December 11, 2024 Team Status: Active Member Role/Relationship Status Dates Dr. Jose Blue MD Attending physician Active Start: December 11, 2024 Dr. Deep Lion MD Referring Provider Active Sta rt: December 11, 2024 Team Status: Inactive Member Role/Relationship Status Dates Dr. Jimbo Dash MD Primary care physician Active Start: December 28, 2024 End: December 28, 2024 Dr. Deep Lion MD Attending physician Active St art: December 28, 2024 End: December 28, 2024 Dr. Deep Lion MD Emergency Department Physician Active Start: December 28, 2024 End: December 28, 2024 Team Status: Inactive Member Role/Relationship Status Dates Dr. Jimbo Dash MD Primary care physician Active Start: December 29, 2024 End: December 29, 2024 Dr. Deep Lion MD Attending physician Active St art: December 29, 2024 End: December 29, 2024 Dr. Deep Lion MD Referring Provider Active Sta rt: December 29, 2024 End: December 29, 2024 Team Status: Active Member Role/Relationship Status Dates Dr. Jimbo Dash MD Primary care physician Active Start: December 29, 2024 Dr. Reji Goldberg MD Attending physician Active Start: December 29, 2024 Team Status: Inactive Member Role/Relationship Status Dates Dr. Jimbo Dash MD Primary care physician Active Start: December 31, 2024 End: December 31, 2024 Dr. Jimbo Dash MD Referring Provider Active Start: December 31, 2024 End: December 31, 2024 KINGS Sidhu Attending physician Active Sta rt: December 31, 2024 End: December 31, 2024 Team Status: Inactive Member Role/Relationship Status Dates Dr. Reji Goldberg MD Admitting physician Active Start: January 04, 2025 End: January 06, 2025 Dr. Reji Goldberg MD Attending physician Active Start: January 04, 2025 End: January 06, 2025 Dr. Reji Goldberg MD Referring Provider Active S tart: January 04, 2025 End: January 06, 2025 Dr. Jimbo Dahs MD Primary care physician Active Start: January 04, 2025 End: January 06, 2025 Team Status: Active Member Role/Relationship Status Dates Dr. Reji Goldberg MD Admitting physician Active Start: January 04, 2025 Dr. Reji Goldberg MD Attending physician Active Start: January 04, 2025 Dr. Reji Goldberg MD Referring Provider Active S tart: January 04, 2025 Dr. Reji Goldberg MD Nurse Practitioner Active S tart: January 04, 2025 Dr. Jimbo Dash MD Primary care physician Active Start: January 04, 2025 Team Status: Active Member Role/Relationship Status Dates Dr. Reji Goldberg MD Admitting physician Active Start: January 05, 2025 Dr. Reji Goldberg MD Attending physician Active Start: January 05, 2025 Dr. Reji Goldberg MD Referring Provider Active S tart: January 05, 2025 Dr. Reji Goldberg MD Nurse Practitioner Active S tart: January 05, 2025 Dr. Jimbo Dash MD Primary care physician Active Start: January 05, 2025 Team Status: Active Member Role/Relationship Status Dates Dr. Reji Goldberg MD Admitting physician Active Start: January 06, 2025 Dr. Reji Goldberg MD Referring Provider Active S tart: January 06, 2025 Dr. Reji Goldberg MD Nurse Practitioner Active S tart: January 06, 2025 Dr. Jimbo Dash MD Primary care physician Active Start: January 06, 2025 KINGS Sidhu Attending physician Active Sta rt: January 06, 2025 Team Status: Inactive Member Role/Relationship Status Dates Dr. Jimbo Dash MD Primary care physician Active Start: January 13, 2025 End: January 13, 2025 Dr. Jimbo Dash MD Referring Provider Active Start: January 13, 2025 End: January 13, 2025 KINGS Sidhu Attending physician Active Sta rt: January 13, 2025 End: January 13, 2025 Team Status: Active Member Role/Relationship Status Dates Dr. Jimbo Dash MD Primary care physician Active Start: December 29, 2024 Dr. Reji Goldberg MD Attending physician Active Start: December 29, 2024 Dr. Deep Lion MD Referring Provider Active Sta rt: December 29, 2024 Team Status: Inactive Member Role/Relationship Status Dates Dr. Jimbo Dash MD Primary care physician Active Start: January 13, 2025 End: January 13, 2025 Dr. Jimbo Dash MD Attending physician Active Start: January 13, 2025 End: January 13, 2025 Team Status: Inactive Member Role/Relationship Status Dates Dr. Jimbo Dash MD Primary care physician Active Start: January 21, 2025 End: January 21, 2025 Dr. Jimbo Dash MD Referring Provider Active Start: January 21, 2025 End: January 21, 2025 KINGS Sidhu Attending physician Active Sta rt: January 21, 2025 End: January 21, 2025 Reason for Visit (unrecogniz ed section and content) Reason Comments Results Reason Comments Referral Information Reason Comments Rash JONO arms, neck, face x2 days Reason Comments Established Patient Reason Comments bladder stone Specialty Diagnoses / Procedures Referred By Contac t Referred To Contact Urology Diagnoses Bladder stone Procedures CONSULT TO UROLOGY OFFICE/OUTPATIENT [facility] 60 MINUTES Ric Taylor, PASTRY ASSISTANT.EDUCATION ASSISTANT [address] [place] [address] Phone: tel: fax: Referral ID Status Reason Start Date Expiration Date V isits Requested Visits Authorized [id number] Closed PCP Requested Referral 09/08/2024 09/08/2025 1 1 Reason Comments Patient Update Reason Comments Cystoscopy-1 Bladder stone mesh e rosion Specialty Diagnoses / Procedures Referred By Contac t Referred To Contact Urology / UROLOGY Diagnoses Calculus in bladder Cystoscopy Procedures CYSTOURETHROSCOPY CYSTOSCOPY Fátima Santillan MD [address] [place] [id number] Phone: tel: fax: Fát[place] [address] [place] [id number] Phone: tel: fax: Referral ID Status Reason Start Date Expiration Date Visits Re quested Visits Authorized [id number] Closed 10/21/2024 04/28/2025 1 1 Reason Comments left 2nd toe pain X 1 day-hit toe on c ouch last night Reason Comments Leg Pain Patient has a confir med DVT in the left leg, denies chest pain or SOB Specialty Diagnoses / Procedures Referred By Contac t Referred To Contact Diagnoses Acute deep vein thrombosis (DVT) of proximal vein of left lower extremity (HCC) Left leg swelling Procedures .. Edy Gray DO [address] [place] [id number] Phone: tel: fax: [facility] [address] [place] [phone] Phone: tel: fax: Referral ID Status Reason Start Date Expiration Date Visits Re quested Visits Authorized [id number] 1 1 Goals (unrecognized section and content) [...] may be documented in an alternate section Scheduled Active and Recently Administ ered Medications (unrecognized section and content) Medication Order 12/15/2024 12/16/2024 12/17/2024 apixaban (Eliquis) tablet 10 mg (CANCELED)(Linked Group 1) 10 mg, Oral, 2 times daily, First dose on 12/14/24 at 2230, For 7 days, Anticoagulant 0855 (Given - Provider: Francisco Davalos RN) apixaban (Eliquis) tablet 5 mg 5 mg, Oral, 2 times daily, First dose on Lucero 12/17/24 at 1200, Anticoagulant 1233 (Given - Provider: Veronika Short RN)2100 (Canceled Entry - Provider: Automatic Discharge Provider - Comment: Automatically canceled at discontinue of medication order) atorvastatin (Lipitor) tablet 40 mg 40 mg, Oral, Nightly, First dose on Sat12/15/24 at 2100 1914 (Given - Provider: Christie Davis, CHERI) 1134 (JUN Hold - Provider: Automatic Transfer Provider - Reason: Patient not available)1358 (MAR Unhold - Provider: Automatic Transfer Provider)2033 (Given - Provider: Fabby Uribe, CHERI) 2100 (Canceled Entry - Provider: Automatic Discharge [...] (JUN Unhold - Provider: Automatic Transfer Provider) 0910 (Given - Provider: Veronika Short, CHERI) heparin injection 5,264 Units (COMPLETED) 5,264 Units (80 Units/kg 65.8 kg), IntraVENous, Once, On Sat12/15/24 at 1520, For 1 dose, Initial one time bolus 1555 (Given - Provider: Sara Joe RN) lactated ringers bolus 500 mL (COMPLETED) 500 mL, IntraVENous, at 500 mL/hr, Administer over 1 Hours, Once, On Sat12/16/24 at 1800, For 1 dose 1816 (New Bag - Provider: Veronika Short, CHERI)1924 (Stopped - Provider: Fabby Uribe, CHERI) metoprolol tartrate (Lopressor) tablet 50 mg (CANCELED) 50 mg, Oral, 2 times daily, First dose on Sat12/15/24 at 2000, For 2 doses 1914 (Given - Provider: Christie Davis RN) 1022 (Not Given - Provider: Veronika Short, CHERI - Reason: Other - Comment: per CT) pantoprazole (ProtoNix) EC tablet 40 mg 40 mg, Oral, Daily before breakfast, First dose on Sat12/16/24 at 0600, Do not crush, chew, or split. 0515 (Not Given - Provider: Guanako Lieberman Jr., RN - Reason: NPO)1134 (JUN Hold - Provider: Automatic Transfer Provider - Reason: Patient not available)1358 (JUN Unhold - Provider: Automatic Transfer Provider) 0532 [...] available)1358 (JUN Unhold - Provider: Automatic Transfer Provider)2033 (Given - Provider: Fabby Uribe RN) 0910 (Given - Provider: Veronika Short, CHERI)2100 (Canceled Entry - Provider: Automatic Discharge Provider - Comment: Automatically canceled at discontinue of medication order) sodium chloride 0.9% (NS) flush 10 mL 10 mL, IntraVENous, Every 12 hours scheduled (2 times per day), First dose on Sat12/15/24 at 0900 0856 (Given - Provider: Francisco Davalos RN)1926 (Not Given - Provider: Guanako Lieberman Jr., RN - Reason: Other - Comment: Heparin infusing) 1022 (Not Given - Provider: Veronika Short RN - Reason: IV Fluids Infusing)1134 (JUN Hold - Provider: Automatic Transfer Provider - Reason: Patient not available)1358 (JUN Unhold - Provider: Automatic Transfer Provider)2109 (Given [...] - Comment: This RN verified with CHERI Bocanegra.)1854 (Rate/Dose Verify - Provider: Christie Davis RN)1924 (Handoff - Provider: Guanako Lieberman Jr., RN)2221 (Stopped - Provider: Guanako Lieberman Jr., RN - Comment: see ptt)2321 (Rate/Dose Change - Provider: Guanako Lieberman Jr., RN - Comment: restarted) 0601 (Rate/Dose Verify - Provider: Guanako Lieberman Jr., RN)0717 (Handoff - Provider: Veronika Short RN)1415 (New Bag - Provider: Veronika Short RN)1916 (Handoff - Provider: Fabby Uribe RN) 0718 (Handoff - Provider: Veronika Short RN)1237 (Stopped - Provider: Veronika Short RN - [...] Provider: Charissa Short MD - Comment: MIXED [id number] NACL, LEFT ILIAC VEIN) HYDROmorphone (Dilaudid) injection [...] therapy medications. 1332 (Given - Provider: Kat Gonzalez RN) iopamidol (Isovue-300) 61 % injection (CANCELED) As [...] sedation for opioid reversal - MUST notify benefits consulting analyst provider immediately after first dose, may give IM or SQ if no IV access +++ nitroglycerin (Nitrostat) SL tablet 0.4 mg (COMPLETED)(Linked Group 2) 0.4 mg, SubLINGual, Once PRN, chest pain, see admin instructions, Starting on Sat12/16/24 at 0923, For 1 dose, +++CT Angiogram medication: intra-scan+++ Administer if SBP 90-110 mmHg OR weight <70 kg 0928 (Given - Provider: Kim Hernández, RN) ondansetron (Zofran) injection 4 mg(Linked Group 3) 4 mg, IntraVENous, Every 6 hours PRN, nausea, vomiting, Starting on Sat12/15/24 at 0055, 1st Line. Give IV if patient is unable to take orally. If inadequate response within 60 minutes, proceed to next-line agent or contact provider if no further options ordered. 1134 (JUN Hold - Provider: Automatic Transfer [...] 1606 (See Alternative - Provider: Veronika Short, RN) 0146 (See Alternative - Provider: Fabby Uribe, RN) oxyCODONE (Roxicodone) immediate release tablet 5 mg(Linked [...] bowel movement in past 24 hours. 1134 ([facility] Hold - Provider: Automatic Transfer Provider - Reason: Patient not available)1358 ([facility] Unhold - Provider: Automatic Transfer Provider) sodium [...] less into rate field of order. 1134 ([facility] Hold - Provider: Automatic Transfer Provider - Reason: Patient not available)1358 ([facility] Unhold - Provider: Automatic Transfer Provider) sodium chloride 0.9% (NS) flush 10 mL 10 mL, IntraVENous, PRN, line care, Starting on Sat12/15/24 at 0055, After every IV line use 1134 ([facility] Hold - Provider: Automatic Transfer Provider - Reason: Patient not available)1358 ([facility] Unhold - Provider: Automatic Transfer Provider) Linked [...] pain (7-10), Starting on Sat12/16/24 at 1601 INFORMATION SOURCE (unrecogn ized section and content) DATE CREATED AUTHOR 12/22/2024 [facility] DATE CREATED AUTHOR AUTHOR'S ORGANIZ ATION 12/24/2024 [facility] DATE CREATED AUTHOR AUTHOR'S ORGANIZ ATION 12/25/2024 [facility] DATE CREATED AUTHOR AUTHOR'S ORGANIZ ATION 03/05/2025 [facility] FOR RECORDS PERTAINING TO PATIENTS WHO ARE [...] BE BASED ON THE PRIMARY CLINICAL RECORDS. [employer] provides no warranty or guarantee of the accuracy or completeness of information in this document.
--- NOTE | 2025-04-02 06:44 | PCM.HP.STD ---
HPI - General General Date of Admission: 04/02/25 Date of Service: 04/02/25 Chief Complaint: Nausea with dysphagia and constipation HPI Narrative KAROLINA AHN, is a 59 F who presents [ Chief Complaint: Constipation Details: KAROLINA AHN is a 59 F who presents to the office today for establishment. Colonoscopy 02/09/22 - Preparation of the colon was poor. - Hemorrhoids found on perianal exam. - Diverticulosis in the sigmoid colon. - Stool in the proximal transverse colon and in the ascending colon. - No specimens collected. Patient here today to be scheduled for a screening colonoscopy. Patient's last colonoscopy was in 2021 and was told she needed to repeat due to poor prep however she has not had this done yet. Patient has chronic constipation with a bowel movement every 3 days and sometimes longer. In the past she has tried stool softeners which have not helped. Endorses a family history of colon cancer. Patient also having nausea, difficulty swallowing and globus sensation over the past few months. She has episodes of dysphagia when eating meats and rice. She has had to regurgitate her food on a few occasions. In the past she has been on omeprazole but is not currently taking. [facility] Medical History High cholesterol GERD (gastroesophageal reflux disease) DVT (deep venous thrombosis) Loss of hearing Wears glasses Arthritis Bladder disease Restless legs Difficulty swallowing Gastric reflux Non-smoker Leg cramps History of pain when walking History of echocardiogram History of stress test Anxiety Anemia Home Medications ?Medication ?Instructions ?Recorded ?Last Taken ?Type sertraline 100 mg tablet 50 mg PO BID anxiety 03/30/14 03/13/24 History Cholecalciferol (Vitamin D3) 5,000 unit PO DAILY supplement 03/07/20 03/13/24 History [Vitamin D3] cyanocobalamin (vitamin B-12) 3,000 mcg PO DAILY supplement 03/07/20 03/13/24 History 5,000 mcg disintegrating tablet omeprazole 20 mg tablet,delayed 20 mg PO QHS reflux 03/07/20 03/12/24 History release pitavastatin calcium 2 mg tablet 4 mg PO QPM cholesterol 02/08/22 03/12/24 History (Livalo) ferrous sulfate 137 mg (45 mg 137 mg PO DAILY 01/04/25 Unknown History iron) tablet,extended release (Slow Fe) acetaminophen 325 mg tablet 650 mg (2 x 325 mg) PO Q6H PRN PRN 01/06/25 Unknown Rx Pain 1-10 Or Fever >100.7 #0 tabs enoxaparin 60 mg/0.6 mL 60 mg (0.6 mL) subcut Q12H 30 days 01/21/25 04/01/25 Rx subcutaneous syringe (Lovenox) #36 mL magnesium glycinate 100 mg (as 200 mg PO BID 03/04/25 Unknown History glycinate) tablet tizanidine 4 mg tablet 4 mg PO QHS 03/31/25 Unknown History Allergy/AdvReac Type Severity Reaction Status Date / Time hydrocodone (From Vicodin) Allergy Nausea/Vom/ Verified 04/02/25 06:38 Diarrhea Family History Mother Colon cancer Cancer ovary Diabetes Father Hypertension Surgical History Hx of bladder repair surgery Hx of cystoscopy Hx of shoulder surgery Hx of colonoscopy S/P rotator cuff repair S/P bunionectomy S/p bilateral carpal tunnel release S/P cholecystectomy S/P hysterectomy Social History household members: spouse housing: house current occupational status: employed Smoking Status: Never smoker alcohol intake: never ROS Constitutional Constitutional: Denies fatigue, fever(s), poor appetite, weight gain or weight loss Gastrointestinal Gastrointestinal: Denies belching, bloating, change in bowel habits, change in stool character, chewing difficulty, coffee ground emesis, constipation, cramping, diarrhea, dyspepsia, dysphagia, early satiety, excessive flatus, fecal incontinence, heartburn, hematemesis, hematochezia, hemorrhoids, loose stools, melena, nausea, odynophagia, rectal bleeding, tenesmus, vomiting or weight changes Vital Signs Vital Signs Vital Signs: 04/02/25 06:39 04/02/25 06:39 04/02/25 06:39 Temperature 97.5 F L Temperature Source Temporal Pulse Rate 78 Respiratory Rate 16 Respiratory Pattern Normal Blood Pressure 115/77 Blood Pressure Mean 89 Blood Pressure Source Monitor Blood Pressure Position Semi-Fowlers Blood Pressure Location Right Arm Baseline BP 115/77 Pulse Ox 99 Oxygen Delivery Method Room Air Weight Weight: 134 lb Body Mass Index (BMI) 23.0 Physical Exam Const alert, oriented x3, no apparent distress and healthy appearing General Appearance: cooperative GI normal to inspection, nondistended, normoactive bowel sounds, soft to palpation, non-tender and non-distended Percussion: normal to percussion Rectal Exam: deferred Assessment & Plan Assessment/Plan (1) Difficulty swallowing: (2) GERD (gastroesophageal reflux disease): (3) Nausea: (4) Constipation: PLAN: Assessment and Plan Assessment and Plan (1) GERD (gastroesophageal reflux disease): Status: Acute (2) Nausea: Status: Acute (3) Constipation: Status: Inactive (4) Difficulty swallowing: Status: Acute Comment: FOOD GETS STUCK Plan: Karolina is a 59-year-old female patient with past medical history of DVT, varicose veins, urethral stenosis, GERD and constipation here today for evaluation. Patient last had a colonoscopy in 2021 that was with poor prep and therefore was recommended to repeat but she has not yet had this done. Patient interested in being scheduled for this today. She has family history of colon cancer in her mother. She has chronic constipation with a bowel movement every 3 days. Recommended starting Linzess 145 mcg daily to prevent constipation and so that her bowel prep is more efficacious. I provided samples and she will contact her office if she wants to continue. Patient also with worsening nausea, difficulty swallowing and globus sensation. She has no history of EGD. She has taken omeprazole in the past. I recommended she undergo EGD in conjunction with her colonoscopy. Patient is currently on Lovenox due to numerous deep vein thrombosis in her lower extremities. - Colonoscopy - EGD - Start Linzess - Follow-up after procedures Note: Portions of this note may have been selectively carried forward from previous documentation to ensure continuity and accuracy of the clinical record. All imported information has been reviewed and updated as necessary to reflect the current patient status, findings, and clinical decision-making for this encounter. [employer] speech recognition pig machine operator helper software was used to create portions of this document. Sound alike and misspelled words, as well as other pig machine operator helper errors may be contained in the documentation.]
[2025-04-02] MEDS: Lactated Ringers 1,000 ML 15 ML IV (06:49)
--- NOTE | 2025-04-02 07:15 | COLBX_PTH ---
PATIENT: ARYAN AHN LOC: EN U#:[id number] AGE/SX: 59/F ROOM: RE04/02/[address]: Dr. Vinyn Meza DO : 1965 BED: DIS: 04/02/2025 SPEC #: [id number] RECD: 04/02/25 09:26 STATUS: CAYDEN ROCIO #: [id number] BENJAMIN: 04/02/25 07:[address]: Vinny Meza DEPT: SURGICAL PATHOLOGY RECD BY: Bernard Dill ENTERED: 04/02/25 11:33 SP TYPE: COLON BX OTHR DR: Dr. Jimbo Dash MD Tissues: A - Duodenum, NOS B - Gastric mucous membrane C - Esophagus, NOS Procedures: Special Stain Group I Surgery Specimen Level IV GMS Stain (control) HEADER OPERATION: Colonoscopy, EGD with biopsy and dilatation PRE-OP DIAGNOSIS: Difficulty swallowing, GERD, nausea, constipation TISSUE SUBMITTED: A- Duodenum biopsy, B- Gastric body biopsy, C- Random esophagus biopsy MICROSCOPIC DIAGNOSIS A. Small intestine, duodenum, biopsy: - Normal villous architecture with [place] gland hyperplasia, mild acute inflammation and focal gastric mucin cell metaplasia, suggestive of peptic injury. - Negative for increased intraepithelial lymphocytes. B. Stomach, body, biopsy: - Oxyntic mucosa with features of reactive gastropathy. - Negative for Helicobacter-like organisms (H&E). C. Esophagus, random, biopsy: - Squamous mucosa with reactive changes, hyperkeratosis, and 20 eosinophils per high power field. - PASD stain for fungal organisms is PENDING and will be reported in an addendum. MICROSCOPIC DESCRIPTION Slides are reviewed. GROSS DESCRIPTION A. Received in fixative is one container labeled with the patient's name and designated Duodenum biopsy. The specimen consists of two irregular fragments of juan tissue, each measuring 0.5 cm. The specimen is totally submitted in one cassette. B. Received in fixative is one container labeled with the patient's name and designated Gastric body biopsy. The specimen consists of three irregular fragments of juan tissue that measure 0.3 to 0.5cm. The specimen is totally submitted in one cassette. C. Received in fixative is one container labeled with the patient's name and designated Random esophagus biopsy. The specimen consists of multiple irregular fragments of juan tissue that in aggregate measure 0.9 x 0.4 x 0.1 cm. The specimen is totally submitted in one cassette. TX 04/02/2025 [facility]:[id number] ADDENDUM ADDENDUM ADDENDUM ADDENDUM ADDENDUM ADDENDUM ADDENDUM ADDENDUM ADDENDUM ADDENDUM ADDENDUM ADDENDUM ADDENDUM 04/06/2025 10:38 ADDENDUM 04/06/2025 10:38 ADDENDUM 04/06/2025 10:38 ADDENDUM 04/06/2025 10:38 ADDENDUM 04/06/2025 10:38 This addendum is to report the PASD stain in part C: C. PASD is negative for fungal organisms. All matched controls reacted appropriately. These tests were developed and their performance characteristics determined by [facility]. They may not have been cleared or approved by the U.S. Food and Drug Administration. The FDA has determined that such clearance or approval is not necessary. The above immunohistochemical markers and/or special?stains have been reviewed by the Pathologist
--- NOTE | 2025-04-02 07:23 | PCM.PRE.AN2 ---
ASA Classification* ASA Classification ASA Classification: 2 Assessment & Plan Anesthesia* Anesthesia Assessment Anesthesia Assessment: Discussed sedation and/or anesthesia options, risks, benefits, and alternatives with patient/parents/legal guardian/POA. Questions invited. The patient/parents/legal guardian/POA seems to understand and agrees to proceed with anesthesia plan. Reviewed the physical assessment, medical history, allergy history and patient home medications list prior to surgery/procedure/anesthetic and documented any changes. Performed airway and anesthesia risk assessments. Anesthesia Type Anesthesia Type: MAC Anesthesia Focused Assessment* Temperature: 97.5 F Pulse Rate: 78 Blood Pressure: 115/77 Respiratory Rate: 16 Pulse Ox: 99 Airway Assessment Mouth opens: >3 cm Mallampati Score: II Labs Anesthesia Preop lab: CBC WBC, (4.4-11.0) 4.2 K/mm3 L 03/24/25, 08:49 RBC, (4.2-5.4) 4.72 M/mm3 03/24/25, 08:49 Hgb, (12.0-15.0) 12.0 g/dL 03/24/25, 08:49 Hct, (37-47) 39.9 % 03/24/25, 08:49 Plt Count, (150-450) 264 K/mm3 03/24/25, 08:49 CHEMISTRY Potassium, (3.3-5.1) 4.1 mmol/L 03/24/25, 08:49 Sodium, (133-145) 141 mmol/L 03/24/25, 08:49 Phosphorus, (2.7-4.5) 3.5 mg/dL 02/09/25, 08:02 BUN, (4-19) 13 mg/dL 03/24/25, 08:49 Creatinine, (0.70-1.20) 0.86 mg/dL 03/24/25, 08:49 Glucose, (70-99) 88 mg/dL 03/24/25, 08:49 TSH, (0.358-3.74) 0.83 uIU/mL 12/08/14, 11:39 COAG PT, (11.7-14.9) 12.9 SECONDS 01/04/25, 16:36 Pre-Assessment Diagnosis/Proposed Procedure Planned Operative Procedure(s): COLONOSCOPY, EGD Anesthesia History 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 When Was Last Pacemaker Check QUESTION #4 FULL TEXT: You/Your Family Experience fever (hyperthermia) with Anesthesia Last Oral Intake Last Oral intake: Last Oral Intake NPO since 03:00 04/02/25 06:39 Meds taken in AM with sips of water? Meds patient instructed to take am of surgery PONV PONV - seo marketing specialist: PONV - seo marketing specialist Female Yes 03/30/25 10:18 HX of Motion Sickness Yes 03/30/25 10:18 HX of N/V After Surgery Yes 03/30/25 10:18 Non-Smoker Yes 03/30/25 10:18 Duration of Surgery greater No 03/30/25 10:18 than 60 minutes Number of Risk Factors 4 03/30/25 10:18 PONV Score Severe Risk 03/30/25 10:18 Height & Weight Height & Weight: Anesthesia: Height & Weight Height 5 ft 4 in 04/02/25 06:39 Weight: 60.781 kg 04/02/25 06:39 Body Mass Index (BMI) 23.0 04/02/25 06:39 Respiratory Assessment Respiratory Assessment - seo marketing specialist: Respiratory Tract Infection Hx - seo marketing specialist Hx Respiratory Tract Infection No 03/30/25 10:18 STOP Sleep Apnea STOP Sleep Apnea - seo marketing specialist: STOP Sleep Apnea - seo marketing specialist Hx Hypertension No 03/30/25 10:18 Hx Sleep Apnea No 03/30/25 10:18 CPAP No 12/21/24 13:23 BIPAP No 12/21/24 13:23 Do you snore loudly (louder No 03/30/25 10:18 than talking or can be heard Do you often feel tired/ No 03/30/25 10:18 fatigued/ sleepy during daytime? Has anyone observed you stop No 03/30/25 10:18 breathing during sleep? STOP Results Negative 03/30/25 10:18 QUESTION #5 FULL TEXT : Do you snore loudly (louder than talking or can be heard through closed doors)? Tobacco Use History Tobacco Use History - seo marketing specialist: Tobacco Use History - seo marketing specialist Tobacco Use Non-smoker 12/21/24 13:23 Smoking Status Never smoker 03/30/25 10:18 Hx Tobacco Use No 03/30/25 10:18 Years Smoking Packs Smoked per Day Smoking Cessation Date was within the last 15 years Hx Smoking Cessation Date Hx Smoking Cessation Counseling Hematologic Medial History Hematologic Hx - seo marketing specialist: Hematologic Medical Hx - med surg nurse Hx of Blood Transfusion No 03/30/25 10:18 Hx of Transfusion in last 3 No 03/30/25 10:18 Months Date of Last Transfusion (if within last 3 months) Ever experience any problems No 03/30/25 10:18 with transfusion(s)? Specify any problems Hx of Preganancy in last 3 No 03/30/25 10:18 Months Nurse Filling Out Transfusion [id number] 03/30/25 10:18 & Questions: Date: 03/30/25 03/30/25 10:18 Time: 10:21 03/30/25 10:18 Patient unable to answer at this time (ie. confused, unrespo /Reproduction History /Reproductive History - seo marketing specialist: /Reproductive Hx- seo marketing specialist Hx Now Gestational Age (in weeks): EDC: Hx Hx Para Hx Section SAB No 03/30/25 10:18 Does the father of the baby or his family experience fever w Father of the baby Malignant Hypertension history comment Active Medications Active Medications: Current Medications Generic Name Dose Route Start Last Admin Trade Name Freq PRN Reason Stop Dose Admin Lactated Ringer's 1,000 mls @ 15 mls/hr 04/02/25 06:30 04/02/25 06:49 IV 15 mls/hr .Q48H ROLAND Administration PFSH Medical History High cholesterol GERD (gastroesophageal reflux disease) DVT (deep venous thrombosis) Loss of hearing Wears glasses Arthritis Bladder disease Restless legs Difficulty swallowing Gastric reflux Non-smoker Leg cramps History of pain when walking History of echocardiogram History of stress test Anxiety Anemia Home Medications ?Medication ?Instructions ?Recorded ?Last Taken ?Type sertraline 100 mg tablet 50 mg PO BID anxiety 03/30/14 03/13/24 History Cholecalciferol (Vitamin D3) 5,000 unit PO DAILY supplement 03/07/20 03/13/24 History [Vitamin D3] cyanocobalamin (vitamin B-12) 3,000 mcg PO DAILY supplement 03/07/20 03/13/24 History 5,000 mcg disintegrating tablet omeprazole 20 mg tablet,delayed 20 mg PO QHS reflux 03/07/20 03/12/24 History release pitavastatin calcium 2 mg tablet 4 mg PO QPM cholesterol 02/08/22 03/12/24 History (Livalo) ferrous sulfate 137 mg (45 mg 137 mg PO DAILY 01/04/25 Unknown History iron) tablet,extended release (Slow Fe) acetaminophen 325 mg tablet 650 mg (2 x 325 mg) PO Q6H PRN PRN 01/06/25 Unknown Rx Pain 1-10 Or Fever >100.7 #0 tabs enoxaparin 60 mg/0.6 mL 60 mg (0.6 mL) subcut Q12H 30 days 01/21/25 04/01/25 Rx subcutaneous syringe (Lovenox) #36 mL magnesium glycinate 100 mg (as 200 mg PO BID 03/04/25 Unknown History glycinate) tablet tizanidine 4 mg tablet 4 mg PO QHS 03/31/25 Unknown History Allergy/AdvReac Type Severity Reaction Status Date / Time hydrocodone (From Vicodin) Allergy Nausea/Vom/ Verified 04/02/25 06:38 Diarrhea Family History Mother Colon cancer Cancer ovary Diabetes Father Hypertension Surgical History Hx of bladder repair surgery Hx of cystoscopy Hx of shoulder surgery Hx of colonoscopy S/P rotator cuff repair S/P bunionectomy S/p bilateral carpal tunnel release S/P cholecystectomy S/P hysterectomy Social History household members: spouse housing: house current occupational status: employed Smoking Status: Never smoker alcohol intake: never Review of Systems (Anesthesia) ROS Narrative System reviewed and no additional complaints, except as documented.
--- NOTE | 2025-04-02 08:05 | OP.PROVAT_ITS ---
04/02/2025 Jimbo Dash MD [address] [id number] Re : Upper GI endoscopy procedure for Karolina Amaya Dear Dr. Dash This procedure was performed on Wednesday, April 02, 2025. My impressions and recommendations are as follows: Impressions : - Esophageal mucosal changes consistent with eosinophilic esophagitis. Dilated. - Bile gastritis. Biopsied. - Duodenal mucosal changes seen, diagnostic of celiac disease. Biopsied. - Biopsies were taken with a cold forceps for evaluation of eosinophilic esophagitis. Recommendations : - Discharge patient to home. - Resume previous diet. - Continue present medications. - Await pathology results. My findings are described in the full procedure note, which is enclosed. If I can be of further assistance, please feel free to contact me at . Sincerely, Vinny Meza, 04/02/2025 8:04:53 AM This report has been signed electronically.
--- NOTE | 2025-04-02 08:05 | OP.EGD_ITS ---
Patient Name: Karolina Amaya Procedure Date: 04/02/2025 7:21 AM Date of : 1965 Age: 59 Procedure: Upper GI endoscopy Indications: Dysphagia, Suspected esophageal reflux Providers: DO Michelle Petersen MD: Jimbo Dash MD Medicines: Monitored Anesthesia Care Patient Profile: This is a 59 year old female. Refer to note in patient chart for documentation of history and physical. Patient has symptoms of dysphagia with solids, chronic dyspepsia and chronic nausea. Complications: No immediate complications. Procedure: Pre-Anesthesia Assessment: - Prior to the procedure, a History and Physical was performed, and patient medications and allergies were reviewed. The patient is competent. The risks and benefits of the procedure and the sedation options and risks were discussed with the patient. All questions were answered and informed consent was obtained. Patient identification and proposed procedure were verified by the physician in the pre-procedure area. Mental Status Examination: alert and oriented. Airway Examination: normal oropharyngeal airway and neck mobility. Respiratory Examination: clear to auscultation. CV Examination: normal. Prophylactic Antibiotics: The patient does not require prophylactic antibiotics. Prior Anticoagulants: The patient has taken no anticoagulant or antiplatelet agents except for NSAID medication. ASA Grade Assessment: III - A patient with severe systemic disease. After reviewing the risks and benefits, the patient was deemed in satisfactory condition to undergo the procedure. The anesthesia plan was to use monitored anesthesia care (MAC). Immediately prior to administration of medications, the patient was re-assessed for adequacy to receive sedatives. The heart rate, respiratory rate, oxygen saturations, blood pressure, adequacy of pulmonary ventilation, and response to care were monitored throughout the procedure. The physical status of the patient was re-assessed after the procedure. After obtaining informed consent, the endoscope was passed under direct vision. Throughout the procedure, the patient's blood pressure, pulse, and oxygen saturations were monitored continuously. The pediatric colonoscope was introduced through the mouth, and advanced to the third part of the duodenum. Small bowel enteroscopy was deemed necessary. The upper GI endoscopy was accomplished without difficulty. The patient tolerated the procedure well. Scope In: 7:35:23 AM Scope Out: 7:42:52 AM Total Procedure Duration Time 0 hours 7 minutes 29 seconds Findings: Mucosal changes including feline appearance, longitudinal furrows, small-caliber esophagus and white plaques were found in the entire esophagus. Biopsies were obtained from the proximal and distal esophagus with cold forceps for histology of suspected eosinophilic esophagitis. Verification of patient identification for the specimen was done. Estimated blood loss was minimal. A guidewire was placed and the scope was withdrawn. Dilation was performed with a Savary dilator with no resistance at 54 Fr. The dilation site was examined and showed moderate improvement in luminal narrowing. Estimated blood loss was minimal. Diffuse moderate inflammation characterized by erosions, erythema, friability and linear erosions was found in the entire examined stomach. Biopsies were taken with a cold forceps for histology. Biopsies were taken with a cold forceps for Helicobacter pylori testing. Verification of patient identification for the specimen was done. Estimated blood loss was minimal. Decreased folds were found in the duodenal bulb, flattening was found in the first portion of the duodenum, scalloped mucosa was found in the duodenal bulb, scalloped mucosa was found in the first portion of the duodenum and thickened folds were found in the duodenal bulb. Biopsies were taken with a cold forceps for histology. Verification of patient identification for the specimen was done. Estimated blood loss was minimal. Impression: - Esophageal mucosal changes consistent with eosinophilic esophagitis. Dilated. - Bile gastritis. Biopsied. - Duodenal mucosal changes seen, diagnostic of celiac disease. Biopsied. - Biopsies were taken with a cold forceps for evaluation of eosinophilic esophagitis. Recommendation: - Discharge patient to home. - Resume previous diet. - Continue present medications. - Await pathology results. Procedure Code(s): --- Professional --- 78253, Esophagogastroduodenoscopy, flexible, transoral; with insertion of guide wire followed by passage of dilator(s) through esophagus over guide wire 52686, 59,51, Small intestinal endoscopy, enteroscopy beyond second portion of duodenum, not including ileum; with biopsy, single or multiple CPT copyright 2021 [employer]. All rights reserved. The codes documented in this report are preliminary and upon mineral resources inspector review may be revised to meet current compliance requirements. Vinny Meza DO 04/02/2025 8:04:53 AM This report has been signed electronically. Number of Addenda: 0 Note Initiated On: 04/02/2025 7:21 AM
--- NOTE | 2025-04-02 08:07 | OP.COLON_ITS ---
Patient Name: Karolina Amaya Procedure Date: 04/02/2025 7:43 AM Date of : 1965 Age: 59 Procedure: Colonoscopy Indications: Screening for colorectal malignant neoplasm Providers: DO Michelle Petersen MD: Jimbo Dash MD Medicines: Monitored Anesthesia Care Patient Profile: This is a 59 year old female. Refer to note in patient chart for documentation of history and physical. Patient has symptoms of dysphagia with solids, chronic dyspepsia and chronic nausea. Last Colonoscopy: 10 years ago. Complications: No immediate complications. Procedure: Pre-Anesthesia Assessment: - Prior to the procedure, a History and Physical was performed, and patient medications and allergies were reviewed. The patient is competent. The risks and benefits of the procedure and the sedation options and risks were discussed with the patient. All questions were answered and informed consent was obtained. Patient identification and proposed procedure were verified by the physician in the pre-procedure area. Mental Status Examination: alert and oriented. Airway Examination: normal oropharyngeal airway and neck mobility. Respiratory Examination: clear to auscultation. CV Examination: normal. Prophylactic Antibiotics: The patient does not require prophylactic antibiotics. Prior Anticoagulants: The patient has taken no anticoagulant or antiplatelet agents except for NSAID medication. ASA Grade Assessment: III - A patient with severe systemic disease. After reviewing the risks and benefits, the patient was deemed in satisfactory condition to undergo the procedure. The anesthesia plan was to use monitored anesthesia care (MAC). Immediately prior to administration of medications, the patient was re-assessed for adequacy to receive sedatives. The heart rate, respiratory rate, oxygen saturations, blood pressure, adequacy of pulmonary ventilation, and response to care were monitored throughout the procedure. The physical status of the patient was re-assessed after the procedure. After I obtained informed consent, the scope was passed under direct vision. Throughout the procedure, the patient's blood pressure, pulse, and oxygen saturations were monitored continuously. The Colonoscope was introduced through the anus and advanced to the cecum, identified by appendiceal orifice and ileocecal valve. Scope In: 7:45:14 AM Scope Withdrawal Time 0 hours 7 minutes 4 seconds Scope Out: 7:55:46 AM Total Procedure Duration Time 0 hours 10 minutes 32 seconds Findings: The perianal and digital rectal examinations were normal. A few small-mouthed diverticula were found in the sigmoid colon. 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 Impression: - Diverticulosis in the sigmoid colon. - No specimens collected. Recommendation: - Discharge patient to home. - Resume previous diet. - Repeat colonoscopy in 10 years for screening purposes. - Continue present medications. Procedure Code(s): --- Professional --- G0121, Colorectal cancer screening; colonoscopy on individual not meeting criteria for high risk CPT copyright 2021 [employer]. All rights reserved. The codes documented in this report are preliminary and upon derrick boat captain review may be revised to meet current compliance requirements. Vinny Meza DO 04/02/2025 8:07:33 AM This report has been signed electronically. Number of Addenda: 0 Note Initiated On: 04/02/2025 7:43 AM
--- NOTE | 2025-04-02 08:07 | PCM.POST.ANE ---
Anesthesia: Postop Eval I Current Vital Signs Temperature: 97.6 F Pulse Rate: 88 Blood Pressure: 101/77 Respiratory Rate: 16 Pulse Ox: 95 Oxygen Delivery Method: Room Air Assessment Airway patent: Yes Spontaneous unlabored respirations: Yes Mental status: Awake and Calm nausea: No Vomiting: No Anesthesia Complication: Yes Anesthesia Complication Comment:: profuse coughing w/temp. O2 desat Fluid Hydration Crystalloid volume administer (ml): 700 Total IV fluid infused: 700 Progress Note Anesthesia document: Postop Eval 1 completed: Yes
--- NOTE | 2025-04-02 08:08 | OP.PROVAT_ITS ---
04/02/2025 Jimbo Dash MD [address] [id number] Re : Colonoscopy procedure for Karolina Amaya Dear Dr. Dash This procedure was performed on Wednesday, April 02, 2025. My impressions and recommendations are as follows: Impressions : - Diverticulosis in the sigmoid colon. - No specimens collected. Recommendations : - Discharge patient to home. - Resume previous diet. - Repeat colonoscopy in 10 years for screening purposes. - Continue present medications. My findings are described in the full procedure note, which is enclosed. If I can be of further assistance, please feel free to contact me at . Sincerely, Vinny Meza, 04/02/2025 8:07:33 AM This report has been signed electronically.
--- NOTE | 2025-04-02 09:12 | PCM.POSTANE2 ---
Anesthesia Postop Eval I Sum Postop Eval Completion status Anesthesia document: Postop Eval 1 completed: Yes Anesthesia Postop Eval I Summary Anesthesia Postop Eval I Summary: Anesthesia Postop Eval I: Assessment Summary Airway patent Yes 04/02/25 08:08 [email or web address] Spontaneous unlabored Yes 04/02/25 08:08 [email or web address] respirations Mental status Awake,Calm 04/02/25 08:08 [email or web address] nausea No 04/02/25 08:08 [email or web address] Vomiting No 04/02/25 08:08 [email or web address] Anesthesia Postop Eval I: Fluid Summary Crystalloid volume administer 700 04/02/25 08:08 [email or web address] (ml) Colloids volume administered ( ml) Blood Product volume administered (ml) Total IV fluid infused 700 04/02/25 08:08 [email or web address] Anesthesia Postop Eval I: Summary Notes Anesthesia Complication Yes 04/02/25 08:08 [email or web address] Anesthesia Complication profuse coughing w 04/02/25 08:08 [email or web address] Comment: /temp. O2 desat Post-operative progress note Anesthesia: Postop Eval II Evaluation Mental status: Awake Pain Level: 0 nausea: No Vomiting: No
== END 2025-04-02 08:46 | disposition home or self-care (01) ==
LOC: EN 06:23 → AC 06:24
PROVIDERS: PCP Family Medicine; Referring Provider Family Medicine; Visit Provider Internal Medicine Gastroenterology
PROC: 0DJD8ZZ Inspection of Lower Intestinal Tract, Via Natural or Artificial Opening Endoscopic (ICD-10-PCS; CPT 45378; principal; 2025-04-02 07:10)
DX: Z12.11 Encounter for screening for malignant neoplasm of colon (principal); K21.9 Gastro-esophageal reflux disease without esophagitis; E78.00 Pure hypercholesterolemia, unspecified; K57.30 Diverticulosis of large intestine without perforation or abscess without bleeding; K29.70 Gastritis, unspecified, without bleeding; Z86.718 Personal history of other venous thrombosis and embolism; Z79.01 Long term (current) use of anticoagulants; Z80.0 Family history of malignant neoplasm of digestive organs; I86.8 Varicose veins of other specified sites; K31.A0 Gastric intestinal metaplasia, unspecified; Z79.899 Other long term (current) drug therapy
CPT/HCPCS: 43248; 45378; 88305; 88312; C1769; J2405